=== PATIENT | male | born 1960 | race Caucasian/White ===

== ENCOUNTER 2016-11-01 21:46 | Inpatient (IN) | payer OTHER ==
[~2016-11-01] VITALS: Ht 165.1 cm; Wt 161.8 kg
[~2016-11-01 21:46] MED LIST: ACET5TAB2 PO; ADVA250A INH; ALBU6.7H INH; ALLO100T PO; ASPI325T PO; CARV12.52 PO; CLOP75TA PO; CONTOUR1 TOP; DICL1CAP4 PO; FLUT1SPR20; FURO20TA PO; GABA600T PO; HYDR1LOT6 EX; LANO0.2510 PO; LEVEMIR SQ; LISI20TA PO; NOVOLOGP2 SQ; OMEP20TA PO; SENN8.6T81 PO; VENTAER INH; ZOCO40TA PO; insulin syringes SQ
[2016-11-01 21:52] VITALS: BP 125/88; PULSE 101; RESP 24; TEMP 98.1; O2SAT 95
[2016-11-01] MEDS ORDERED: AMIODARONE HCL 150 MG/3 ML VIAL ONE (21:52)
[2016-11-01] MEDS ORDERED: NITROGLYCERIN 2% OINT 1 GM PACKET TOPICAL ONE (22:00)
[2016-11-01] MEDS ORDERED: ASPIRIN 81 MG CHEW TAB CHEW ONE (22:00)
--- NOTE | 2016-11-01 22:05 | PD ---
HPI Chief Complaint: Cardiac Complaint Time Seen by Provider: 21:52 Travel History International Travel<30 days: No Contact w/Intl Traveler<30days: No Traveled to known affect area: No History of Present Illness HPI The patient is a 56 year old male who presents to the [facility] emergency department with a history of sitting on the couch watching television having sudden fire of his AICD. The patient reports that it fired 4 times. The patient called ambulance services and upon their arrival he was placed on their monitor. The patient was noted to have runs of V. tach and had his AICD fire again at 2132. The patient denies having any chest pain, chest pressure, or shortness of breath. He reports that he does have a history of cardiac disease with a prior history of five-vessel bypass over 10 years ago, pacemaker and defibrillator placement, and prior history of cardiac catheterization with stent placement. He reports that he has not seen a turner and former automatic in years as he does not have insurance. He reports that he has not had his pacemaker interrogated in years. He reports that the last time that his defibrillator fired was 13 years ago when he was using crack cocaine. 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 He reports that he quit smoking 5 years ago. The patient denies any recent fevers, cough, congestion, neck pain, chest pain, shortness of breath, abdominal pain, vomiting, diarrhea, urinary symptoms, or neurologic symptoms. [facility] Past Medical History Narrative Medical The patient's past medical history is significant for obesity, coronary artery disease, hypertension, hyperlipidemia, diabetes mellitus, history of COPD, history of cerebrovascular accident, history of anxiety and depression. Hx Anticoagulant Therapy: Yes (PLAVIX) Arthritis: Yes Asthma: Yes Autoimmune Disease: No Blood Disorders: No Anxiety: Yes Depression: Yes Heart Rhythm Problems: Yes Cancer: No Cardiac Catheterization: Yes Cardiovascular Problems: Yes (DEFIB/OPEN HEART SX/ MO) High Cholesterol: Yes Chemotherapy: No Chest Pain: Yes Congestive Heart Failure: No COPD: Yes Cerebrovascular Accident: Yes Diabetes: Yes (TYPE2) Patient Takes Glucophage: No Diminished Hearing: No Endocrine: Yes Gastrointestinal Disorders: Yes GERD: Yes Glaucoma: No Genitourinary: No Headaches: No Hepatitis: No Hiatal Hernia: No Hypertension: Yes Immune Disorder: No Implanted Vascular Access Dvce: Yes Kidney Stones: No Musculoskeletal: Yes Neurologic: No Psychiatric: Yes (BIPOLAR) Reproductive: No Respiratory: Yes (COPD) Integumentary: Yes (HX OF MRSA/STAPH) Migraines: No Myocardial Infarction: Yes Radiation Therapy: No Renal Failure: No Seizures: No Sickle Cell Disease: No Sleep Apnea: Yes Thyroid Disease: No Ulcer: No Tetanus Vaccination: < 5 Years Influenza Vaccination: Yes PNEUMOCCOCAL Vaccine (Year): 2 Past Surgical History Narrative Surgical The patient's past surgical history is significant for a pacemaker defibrillator placement, coronary artery bypass grafting of 5 vessels, right ankle surgery, 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 Abdominal Surgery: No AICD: Yes Appendectomy: No Arteriovenous Shunt: No Body Medical Devices: PACEMAKER/defib Cardiac Surgery: Yes (CORONY STENT10/02, AICD) Cholecystectomy: No Coronary Artery Bypass Graft: Yes (X5) Coronary Stent: Yes (10/02) Ear Surgery: No Endocrine Surgery: No Eye Surgery: Yes (RIGHT EYES PROSTHESIS) Genitourinary Surgery: No Gynecologic Surgery: No Insulin Pump: No Joint Replacement: Yes (RIGHT ANKLE ) Oral Surgery: No Pacemaker: Yes Thoracic Surgery: No Other Surgery: Yes (AICD) Family History Family Myocardial Infarction: Yes Social History Alcohol Use: No Tobacco Use: No Substance Use: No (quit 2003 hx cocaine) Allergies-Medications (Allergen,Severity, Reaction): Coded Allergies: Morphine (Verified Allergy, Severe, 09/06/16) GI MRI PRECAUTION (Verified Adverse Reaction, Severe, PACEMAKER (JLT), BULLET FRAGMENTS IN SINUS CAVITY, 09/06/16) Reported Meds & Prescriptions Reported Meds & Active Scripts Active Furosemide 20 Mg Tab 20 Mg PO DAILY Lisinopril-Hctz 20-12.5 Mg Tab 1 Tab PO DAILY Zocor (Simvastatin) 40 Mg Tab 40 Mg PO HS Omeprazole 20 Mg Tab 20 Mg PO BID Gabapentin 600 Mg Tab 600 Mg PO TID Proventil Hfa 6.7 GM Inh (Albuterol Sulfate) 90 Mcg/Act Aer 2 Puff INH Q4-6H PRN Ventolin Hfa 18 GM Inh (Albuterol Sulfate) 90 Mcg/Act Aer 2 Puff INH Q4-6H PRN Advair Diskus Inh (Fluticasone-Salmeterol Inh) 250-50 Mcg/Blist Aer 1 Puff INH BID Rinse mouth after use. Lanoxin (Digoxin) 0.25 Mg Tab 0.25 Mg PO DAILY Clopidogrel (Clopidogrel Bisulfate) 75 Mg Tab 75 Mg PO DAILY Reported Anti-Itch Intensive Heali (Hydrocortisone (Topical)) 1 % Lot 1 % EX Sennosides 8.6 Mg Tab 8.6 Mg PO HS 1-2 tabs as needed once a day Novolog Inj (Insulin Aspart) 1,000 Unit/10 Ml Vial 60 Units SQ QID Levemir Inj (Insulin Detemir) 1,000 unit/ 10 ML Vial 100 Units SQ BID Do not mix with any other Insulin. Aspirin 325 Mg Tab 325 Mg PO DAILY Arthritis Pain ER 8 HR (Acetaminophen) 650 Mg Tab 650 Mg PO DAILY PRN 2 tabs as needed once a day Eq Allergy Relief (Fluticasone Propionate (Nasal)) 50 Mcg/Act Spr 1 Bell BID Zorvolex (Diclofenac) 35 Mg Cap 75 Mg PO BID Carvedilol 12.5 Mg Tab 12.5 Mg PO BID Allopurinol 100 Mg Tab 100 Mg PO DAILY Review of Systems Except as stated in HPI: all other systems reviewed are Neg General / Constitutional: No: Fever Eyes: No: Visual changes HENT: No: Headaches Cardiovascular: Positive: Edema (chronic edema and that waxes and wanes in severity, no worse recently), No: Chest Pain or Discomfort, Dyspnea on exertion Respiratory: No: Shortness of Breath Gastrointestinal: No: Nausea, Vomiting, Diarrhea, Abdominal Pain Genitourinary: No: Dysuria Musculoskeletal: No: Pain Skin: No Rash Neurologic: No: Weakness, Focal Abnormalities, Change in Mentation, Slurred Speech, Sensory Disturbance Psychiatric: No: Depression Endocrine: No: Polydipsia Hematologic/Lymphatic: No: Easy Bruising Physical Exam Narrative General: The patient is a well-developed well-nourished male in no acute distress. Head and Neck exam: Head is normocephalic atraumatic. Eyes: The patient has enucleation of the right eye with the prosthetic in place. The patient's left pupil is reactive to light. Nose: Midline septum with pink mucous membranes Mouth: Dentition unremarkable. Moist mucus membranes. Posterior oropharynx is not erythematous. No tonsillar hypertrophy. Uvula midline. Airway patent. Neck: No palpable lymphadenopathy. No nuchal rigidity. No thyromegaly. Cardiovascular: Regular rate and rhythm without murmurs, gallops, or rubs. No pulse deficit to the extremities and simultaneous auscultation and palpation of his radial artery. Runs of V. tach were visualized on the monitor. Lungs: Clear to auscultation bilaterally. No wheezes, rhonchi, or rales. Abdomen: Soft, without tenderness to palpation in all 4 quadrants of the abdomen. No guarding, rebound, or rigidity. Normal bowel sounds are audible. Extremities: No clubbing or cyanosis. The patient has 1+ pitting edema bilateral lower extremities. 2+ pulses in all 4 extremities. No calf tenderness on palpation. Back: No spinous process tenderness to palpation. No costovertebral angle tenderness to palpation. Neurologic Exam: Grossly nonfocal. Awake and alert. The patient is oriented 4. Skin Exam: No rash noted. Intact skin that is warm and dry. Data Data Last Documented VS Vital Signs Date Time Temp Pulse Resp B/P Pulse Ox O2 Delivery O2 Flow Rate FiO2 11/01/16 23:42 86 16 96/56 94 Nasal Cannula 4 11/01/16 21:52 98.1 Orders Amiodarone Inj (Cordarone Inj) (11/01/16 21:52) Electrocardiogram (11/01/16 21:52) Complete Blood Count With Diff (11/01/16 21:52) Comprehensive Metabolic Panel (11/01/16 21:52) Creatine Kinase (Cpk) (11/01/16 21:52) Ckmb (Isoenzyme) Profile (11/01/16 21:52) Troponin I (11/01/16 21:52) B-Type Natriuretic Peptide (11/01/16 21:52) Prothrombin Time / Inr (Pt) (11/01/16 21:52) Act Partial Throm Time (Ptt) (11/01/16 21:52) Urinalysis - C+S If Indicated (11/01/16 21:52) Magnesium (Mg) (11/01/16 21:52) Thyroid Stimulating Hormone (11/01/16 21:52) Chest, Single Ap (11/01/16 21:52) Iv Access Insert/Monitor (11/01/16 21:52) Ecg Monitoring (11/01/16 21:52) Oxygen Administration (11/01/16 21:52) Oximetry (11/01/16 21:52) Aspirin Chew (Aspirin Chew) (11/01/16 22:00) Nitroglycerin 2% Oint (Nitroglycerin 2% (11/01/16 22:00) Amiodarone Inj (Cordarone Inj) (11/01/16 22:15) Amiodarone Inj (Cordarone Inj) (11/01/16 22:15) Lorazepam Inj (Ativan Inj) (11/01/16 22:30) Digoxin (11/01/16 21:50) Lidocaine/D5w Inj (Lidocaine/D5w Inj) (11/01/16 22:45) Lidocaine 2% Inj (Xylocaine 2% Inj) (11/01/16 22:45) Amiodarone Inj (Cordarone Inj) (11/01/16 23:00) CKMB (11/01/16 21:50) CKMB% (11/01/16 21:50) Magnesium Sulfate 1 Gm Premix (Magnesium (11/01/16 23:30) Admit Order (Ed Use Only) (11/01/16 23:40) Labs Laboratory Tests Test 11/01/16 11/01/16 11/01/16 21:50 21:52 22:50 Prothrombin Time 11.1 SEC Prothromb Time International 1.0 RATIO Ratio Activated Partial 27.5 SEC Thromboplast Time Sodium Level 138 MEQ/L Potassium Level 4.0 MEQ/L Chloride Level 99 MEQ/L Carbon Dioxide Level 33.9 MEQ/L Anion Gap 5 MEQ/L Blood Urea Nitrogen 24 MG/DL Creatinine 1.68 MG/DL Estimat Glomerular Filtration 43 ML/MIN Rate Random Glucose 226 MG/DL Calcium Level 8.2 MG/DL Magnesium Level 1.7 MG/DL Total Bilirubin 0.5 MG/DL Aspartate Amino Transf 29 U/L (AST/SGOT) Alanine Aminotransferase 24 U/L (ALT/SGPT) Alkaline Phosphatase 82 U/L Total Creatine Kinase 168 U/L Creatine Kinase MB 2.1 NG/ML Troponin I 0.07 NG/ML B-Type Natriuretic Peptide 13 PG/ML Total Protein 8.0 GM/DL Albumin 3.2 GM/DL Thyroid Stimulating Hormone 2.220 uIU/ML 3rd Gen Digoxin Level 1.3 NG/ML White Blood Count 12.5 TH/MM3 Red Blood Count 4.96 MIL/MM3 Hemoglobin 12.7 GM/DL Hematocrit 41.1 % Mean Corpuscular Volume 82.8 FL Mean Corpuscular Hemoglobin 25.6 PG Mean Corpuscular Hemoglobin 30.9 % Concent Red Cell Distribution Width 16.2 % Platelet Count 200 TH/MM3 Mean Platelet Volume 8.6 FL Neutrophils (%) (Auto) 73.0 % Lymphocytes (%) (Auto) 20.4 % Monocytes (%) (Auto) 4.1 % Eosinophils (%) (Auto) 1.9 % Basophils (%) (Auto) 0.6 % Neutrophils # (Auto) 9.1 TH/MM3 Lymphocytes # (Auto) 2.5 TH/MM3 Monocytes # (Auto) 0.5 TH/MM3 Eosinophils # (Auto) 0.2 TH/MM3 Basophils # (Auto) 0.1 TH/MM3 CBC Comment DIFF FINAL Differential Comment Urine Color YELLOW Urine Turbidity CLEAR Urine pH 5.5 Urine Specific [place] 1.012 Urine Protein NEG mg/dL Urine Glucose (UA) NEG mg/dL Urine Ketones NEG mg/dL Urine Occult Blood NEG Urine Nitrite NEG Urine Bilirubin NEG Urine Urobilinogen LESS THAN 2.0 MG/DL Urine Leukocyte Esterase NEG Urine RBC 1 /hpf Urine WBC 1 /hpf Microscopic Urinalysis Comment CULT NOT INDICATED MDM Medical Decision Making Medical Screen Exam Complete: Yes Emergency Medical Condition: Yes Medical Record Reviewed: Yes Interpretation(s) Last Impressions Chest X-Ray 11/01/162151 Signed Impressions: Service Date/Time: Tuesday, November 01, 2016 20:11 - CONCLUSION: Cardiomegaly. Minimal basilar atelectasis. Pacer leads unchanged. Silvino Duke MD Differential Diagnosis Electrolyte abnormality triggering a cardiac arrhythmia, versus ischemia triggering a cardiac arrhythmia, versus cardiomyopathy Narrative Course During the course of the patients emergency department visit, the patients history, examination, and differential diagnosis were reviewed with the patient. The patient had IV access obtained and blood work sent for analysis. The patient was placed on a coupon manifest clerk with oximetry and blood pressure monitoring. While I was in the room, the patient had episodes of V. tach with a pulse noted. Preparations were made for starting an IV bolus of amiodarone. The patient has had pacer pads applied to his chest. Prior to the amiodarone drip being started the patient's defibrillator again fired in the emergency department. An EKG done on arrival shows a sinus tachycardia rate of 106, nonspecific ST abnormalities. T waves are downsloping in lead 1, 2. QRS duration is 108 ms, QTC is 364 ms. The patient was provided amiodarone 150 mg IV over 10 minutes followed by a drip. The patient reports that he did take an adult aspirin earlier today. The patient was given nitroglycerin 1 inch the chest wall. The patient continued to have persistent runs of V. tach and his AICD again fired after a run of 20 beats of V. tach. The patient was given amiodarone another 150 mg IV bolus over 10 minutes. A call was placed out to the turner and former automatic ground nuclear weapons assembly officer. I spoke to Dr. Kruse. He recommended that the patient be given lidocaine bolus and then a lidocaine drip and continued on the amiodarone drip that was previously started. Shortly after giving a lidocaine bolus the patient's episodic V. tach resolved. I spoke to Dr. Kruse again when he called to check on the patient at approximately 11:15 PM. As the patient's magnesium level was 1.70 recommended magnesium 2 g be administered over 2 hours. Patients laboratory studies were reviewed and remarkable for a white count of 12.5, hemoglobin 12.7, platelets 200 with 73 neutrophils, CMP is remarkable for CO2 of 33.9, BUN 24, creatinine 1.68, glucose 226, CPK 168 with a CK-MB of 2.1, troponin I 0.07, BNP 13, TSH 2.22, PT PTT unremarkable, digoxin level I.3, Urinalysis is unremarkable. Radiology studies were reviewed and remarkable for a chest x-ray did reveal cardiomegaly, minimal basilar atelectasis, pacer leads that are unchanged compared to previously. The patients results were discussed with the patient, including the plan of care. I explained that further testing and/ or monitoring is indicated based on the patients history, examination, and/ or laboratory findings. Therefore, I recommended admission for additional evaluation. The patient expressed understanding and was agreeable with this plan. The patient was admitted to the hospital in guarded condition and sent to a bed under the care of the top lift cutter. A consultation was also placed to Dr. Kruse, the turner and former automatic ground nuclear weapons assembly officer. The patients results were discussed with the patient, including the plan of care. I explained that further testing and/ or monitoring is indicated based on the patients history, examination, and/ or laboratory findings. Therefore, I recommended admission for additional evaluation. The patient expressed understanding and was agreeable with this plan. The patient was admitted to the hospital in guarded condition and sent to a bed under the care of the top lift cutter. Critical Care Narrative Aggregate critical care time was 62 minutes. Time to perform other separately billable procedures was not included in the critical care time. My time did not include minutes spent treating any other patients simultaneously or on activities that did not directly contribute to the patient's treatment. The services I provided to this patient were to treat and/or prevent clinically significant deterioration that could result in: cardiovascular collapse, versus cardiopulmonary arrest, versus acute MO I provided critical care services requiring my management, as noted below: Chart data review, documentation time, medication orders and management, vital sign assessments/reviewing monitor data, ordering and reviewing lab tests, ordering and interpreting/reviewing x-rays and diagnostic studies, care of the patient and discussion of the patient with the admitting physicians. Physician Communication Physician Communication At 22:[address] Kruse regarding this patient's case. He recommended that the patient be given lidocaine bolus and then started on a drip. He recommended that the patient be continued on amiodarone by drip at this point. He will see the patient in consultation. A call was placed out to Dr. Pepper at approximately 11:30 PM. He did call back and communicated with my business unit leader that he would have to call back after 12:30 AM discussed the patient as he is currently with an unstable patient that is coding. I later was able to speak to Dr. Pepper. He did agree to admit the patient for further evaluation and treatment at this time. Diagnosis Primary Impression: Ventricular tachycardia Additional Impression: AICD discharge Admitting Information Admitting Physician Requests: Jyoti Lockhart MD Nov 01, 2016 22:05
[2016-11-01 22:10] VITALS: RESP 18
[2016-11-01] MEDS ORDERED: AMIODARONE 150 MG/D5W 97 ML BOLUS 10 MINUTES IV ONE ×4 (22:15→23:00)
[2016-11-01] MEDS: AMIODARONE 450 MG/D5W (EXCEL) 241 ML IV SCH ×2 (22:23)
[2016-11-01 22:29] LABS: AUTOMATED NEUTROPHIL # 9.1 TH/MM3 (1.8-7.7); BASOPHIL # 0.1 TH/MM3 (0-0.2); BASOPHIL % 0.6 % (0.0-2.0); EOSINOPHIL # 0.2 TH/MM3 (0-0.4); EOSINOPHIL % 1.9 % (0.0-4.0); HEMATOCRIT 41.1 % (39.0-51.0); HEMO FLAGS DIFF FINAL; LYMPH % 20.4 % (9.0-44.0); LYMPHOCYTE # 2.5 TH/MM3 (1.0-4.8); MEAN CELL VOLUME 82.8 FL (80.0-100.0); MEAN CORPUSCULAR HEMOGLOBIN 25.6 PG (27.0-34.0); MEAN CORPUSCULAR HGB CONC 30.9 % (32.0-36.0); MONO % 4.1 % (0.0-8.0); PLATELET COUNT 200 TH/MM3 (150-450); RED BLOOD COUNT 4.96 MIL/MM3 (4.50-5.90); RED CELL DISTRIBUTION WIDTH 16.2 % (11.6-17.2); WHITE BLOOD COUNT 12.5 TH/MM3 (4.0-11.0)
[2016-11-01] MEDS ORDERED: LORazepam 2 MG/ML VIAL IM ONE (22:30)
--- NOTE | 2016-11-01 22:39 | RADRPT ---
EXAM DATE/TIME: 11/01/2016 20:11 [facility] COMPARISON: No previous studies available for comparison. INDICATIONS : Palpitations. MEDICAL HISTORY : Chronic obstructive pulmonary disease. SURGICAL HISTORY : CABG. Pacemaker. ENCOUNTER: Initial ACUITY: 1 day PAIN SCORE: 0/10 LOCATION: Bilateral chest FINDINGS: Patient is postoperative median sternotomy. Cardiomegaly. Pacer lead present. Minimal basilar atelect asis. No effusion or pneumothorax. CONCLUSION: Cardiomegaly. Minimal basilar atelectasis. Pacer leads unchanged. Silvino Duke MD on November 01, 2016 at 22:36 Board Certified Radiologist. This report was verified electronically.
[2016-11-01] MEDS ORDERED: LIDOCAINE HCL 2% 100 MG/5 ML SYRINGE IV PUSH ONE (22:45)
[2016-11-01] MEDS ORDERED: LIDOCAINE/D5W INJ 500 ML IV ONE (22:45)
[2016-11-01 22:53] LABS: APTT (PATIENT) 27.5 SEC (24.3-30.1); PROTHROMBIN TIME - PATIENT 11.1 SEC (9.8-11.6)
[2016-11-01 23:02] LABS: BLOOD, URINE NEG (NEG); COMMENT (UR) CULT NOT INDICATED; CULTURE IF INDICATED CULT NOT INDICATED; GLUCOSE,URINE NEG (NEG); KETONE, URINE NEG (NEG); NITRITE,URINE NEG (NEG); PH, URINE 5.5 (5.0-8.5); URINE COLOR YELLOW (YELLW/STRAW)
[2016-11-01 23:05] VITALS: BP 105/59; PULSE 89; RESP 16; O2SAT 96
[2016-11-01 23:14] LABS: ALKALINE PHOSPHATASE 82 U/L (45-117); ALT (GPT) 24 U/L (12-78); ANION GAP 5 MEQ/L (5-15); AST (GOT) 29 U/L (15-37); BICARBONATE 33.9 MEQ/L (21.0-32.0); BLOOD UREA NITROGEN 24 MG/DL (7-18); CHLORIDE 99 MEQ/L (98-107); CREATINE KINASE 168 U/L (39-308); DIGOXIN 1.3 NG/ML (0.8-2.0); GLOMERULAR FILTRATION RATE 43 ML/MIN (>89); MAGNESIUM 1.7 MG/DL (1.5-2.5); SODIUM (NA) 138 MEQ/L (136-145); TOTAL BILIRUBIN ADULT 0.5 MG/DL (0.2-1.0)
[2016-11-01 23:26] LABS: CKMB 2.1 NG/ML (0.5-3.6)
[2016-11-01 23:42] VITALS: BP 96/56; PULSE 86; RESP 16; O2SAT 94
[2016-11-01] MEDS: MAGNESIUM SULFATE 1 GM PREMIX 100 ML IV SCH (23:54)
[2016-11-02] VITALS (18 sets, daily range): BP systolic 99–137; BP diastolic 52–63; PULSE 61–75; RESP 14–24; TEMP 97.6–99.1; O2SAT 93–96
[2016-11-02] MEDS: MAGNESIUM SULFATE 1 GM PREMIX 100 ML IV SCH (01:10)
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
[2016-11-02] MEDS ORDERED: LIDOCAINE/D5W INJ 500 ML IV SCH (02:19)
[2016-11-02] MEDS ORDERED: ONDANSETRON HCL 4 MG/2 ML VIAL IV PRN (02:45)
[2016-11-02] MEDS ORDERED: MISCELLANEOUS NURSING INFORMATION XX SCH (02:45)
[2016-11-02] MEDS ORDERED: CHLORHEXIDINE GLUCONATE 2 % 1 PACK (2 CLOTHS) TOP PRN (02:45)
[2016-11-02] MEDS ORDERED: SODIUM CHLORIDE 0.9% FLUSH 5 ML FLUSH IV FLUSH PRN (02:45)
[2016-11-02] MEDS ORDERED: RESP: ALBUTEROL 2.5 MG/IPRATROPIUM 0.5 MG NEB (PRN) INH (02:45)
[2016-11-02] MEDS ORDERED: DEXTROSE 50% IN WATER 50 ML VIAL(D50) IV PUSH PRN (02:45)
[2016-11-02] MEDS ORDERED: GLUCAGON 1 MG/ML VIAL OTHER PRN (02:45)
[2016-11-02] MEDS ORDERED: ARTHRITIS PAIN PO PRN (03:00)
[2016-11-02] MEDS: CHLORHEXIDINE GLUCONATE 2 % 1 PACK (2 CLOTHS) TOP SCH (04:00)
[2016-11-02] MEDS: AMIODARONE 450 MG/D5W (EXCEL) 241 ML IV SCH ×2 (04:33)
[2016-11-02] MEDS: INSULIN NovoLIN REGULAR SUPPLEMENTAL SCALE SQ SCH ×4 (06:57→21:00)
[2016-11-02] MEDS ORDERED: LISINOPRIL 20 MG TAB PO SCH (09:00)
[2016-11-02] MEDS ORDERED: CARVEDILOL 12.5 MG TAB PO SCH (09:00)
[2016-11-02] MEDS ORDERED: DIGOXIN 0.25 MG TAB PO SCH (09:00)
[2016-11-02] MEDS ORDERED: PNEUMOCOCCAL POLYVALENT INJ 25 MCG/0.5 ML SYR IM ONE (09:00)
[2016-11-02] MEDS: SODIUM CHLORIDE 0.9% FLUSH 5 ML FLUSH IV FLUSH SCH (09:00)
[2016-11-02] MEDS ORDERED: HYDROCHLOROTHIAZIDE 12.5 MG CAP PO SCH (09:00)
[2016-11-02] MEDS: ALLOPURINOL 100 MG TAB PO SCH (09:00)
[2016-11-02] MEDS: FLUTICASONE PROPIONATE 50 MCG/ACT 16 GM NASAL SPRAY NASAL SCH ×2 (09:00→21:00)
[2016-11-02] MEDS: BUDESONIDE-FORMOTEROL 160/4.5 MCG INHALER INH SCH ×2 (09:21→21:00)
[2016-11-02] MEDS: DOCUSATE SODIUM 100 MG CAP PO SCH ×2 (09:23→21:00)
[2016-11-02] MEDS: CLOPIDOGREL 75 MG TAB PO SCH (09:24)
[2016-11-02] MEDS: ASPIRIN 325 MG TAB PO SCH (09:24)
[2016-11-02] MEDS: PANTOPRAZOLE SOD 20 MG DELAYED RELEASE TAB PO SCH ×2 (09:25→22:29)
[2016-11-02] MEDS: GABAPENTIN 300 MG CAP PO SCH ×3 (09:25→17:51)
[2016-11-02] MEDS: INSULIN DETEMIR 100 UNITS/ML VIAL SQ SCH ×2 (09:26→21:00)
[2016-11-02] MEDS: FUROSEMIDE 20 MG TAB PO SCH (09:27)
[2016-11-02 11:44] LABS: HEMATOCRIT 38.7 % (39.0-51.0); MEAN CELL VOLUME 83.2 FL (80.0-100.0); MEAN CORPUSCULAR HEMOGLOBIN 26.1 PG (27.0-34.0); MEAN CORPUSCULAR HGB CONC 31.4 % (32.0-36.0); PLATELET COUNT 199 TH/MM3 (150-450); RED BLOOD COUNT 4.65 MIL/MM3 (4.50-5.90); RED CELL DISTRIBUTION WIDTH 16.4 % (11.6-17.2); REVIEW FLAG FINAL; WHITE BLOOD COUNT 9.9 TH/MM3 (4.0-11.0)
[2016-11-02 12:23] LABS: BICARBONATE 32.1 MEQ/L (21.0-32.0); MAGNESIUM 2.3 MG/DL (1.5-2.5); POTASSIUM 4.6 MEQ/L (3.5-5.1)
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
[2016-11-02] MEDS: ACETAMINOPHEN/HYDROcodone 325 MG/5 MG TAB PO PRN ×2 (14:57→22:32)
[2016-11-02] MEDS: SENNOSIDES 8.6 MG TAB PO SCH (21:00)
--- NOTE | 2016-11-02 22:06 | EKG ---
Date Performed: 11/01/2016 Time Performed: 21:47:51 PTAGE: 56 years EKG: SINUS TACHYCARDIA ST DEVIATION AND MODERATE T-WAVE ABNORMALITY, CONSIDER LATERAL ISCHEMIA A BNORMAL ECG INTERPRETATION BASED ON A DEFAULT AGE OF 40 YEARS PREVIOUS TRACING : 09/30/2015 20.58 DOCTOR: Dimitri Kruse Interpretating Date/Time 11/02/2016 22:05:12
[2016-11-02] MEDS: CARVEDILOL 12.5 MG TAB PO SCH (22:28)
[2016-11-02] MEDS: PRAVASTATIN SOD 40 MG TAB PO SCH (22:29)
[2016-11-03] VITALS (28 sets, daily range): BP systolic 107–127; BP diastolic 56–60; PULSE 62–78; RESP 18–24; TEMP 97.4–99.1; O2SAT 93–96
[2016-11-03] MEDS: CHLORHEXIDINE GLUCONATE 2 % 1 PACK (2 CLOTHS) TOP SCH (04:00)
[2016-11-03 06:13] LABS: AUTOMATED NEUTROPHIL # 9.7 TH/MM3 (1.8-7.7); BASOPHIL # 0.1 TH/MM3 (0-0.2); BASOPHIL % 0.5 % (0.0-2.0); EOSINOPHIL # 0.3 TH/MM3 (0-0.4); EOSINOPHIL % 2.2 % (0.0-4.0); HEMATOCRIT 41.6 % (39.0-51.0); HEMO FLAGS DIFF FINAL; LYMPH % 11.8 % (9.0-44.0); LYMPHOCYTE # 1.4 TH/MM3 (1.0-4.8); MEAN CELL VOLUME 84.1 FL (80.0-100.0); MEAN CORPUSCULAR HEMOGLOBIN 25.6 PG (27.0-34.0); MEAN CORPUSCULAR HGB CONC 30.4 % (32.0-36.0); MONO % 5.4 % (0.0-8.0); NEUT % 80.1 % (16.0-70.0); PLATELET COUNT 185 TH/MM3 (150-450); RED BLOOD COUNT 4.95 MIL/MM3 (4.50-5.90); RED CELL DISTRIBUTION WIDTH 16.5 % (11.6-17.2); WHITE BLOOD COUNT 12.1 TH/MM3 (4.0-11.0)
[2016-11-03 06:30] LABS: APTT (PATIENT) 26.9 SEC (24.3-30.1); PROTHROMBIN TIME - PATIENT 11.2 SEC (9.8-11.6)
[2016-11-03 06:46] LABS: ALKALINE PHOSPHATASE 74 U/L (45-117); ALT (GPT) 20 U/L (12-78); ANION GAP 6 MEQ/L (5-15); AST (GOT) 15 U/L (15-37); BICARBONATE 32.4 MEQ/L (21.0-32.0); BLOOD UREA NITROGEN 33 MG/DL (7-18); CHLORIDE 97 MEQ/L (98-107); GLOMERULAR FILTRATION RATE 38 ML/MIN (>89); MAGNESIUM 2.4 MG/DL (1.5-2.5); SODIUM (NA) 135 MEQ/L (136-145); TOTAL BILIRUBIN ADULT 0.5 MG/DL (0.2-1.0)
--- NOTE | 2016-11-03 08:30 | HHI.PR ---
Subjective Remarks Follow up tachycardia, diabetes. The patient denies chest pain, dyspnea. States that he is having a gout flare in both feet, left greater than right. He states that his gout flares up any time he spends the night in the hospital. He does not recall what medication he takes for gout flares. Objective Vitals Vital Signs Date Time Temp Pulse Resp B/P Pulse Ox O2 Delivery O2 Flow Rate FiO2 11/03/16 07:45 21 11/03/16 07:35 67 11/03/16 05:00 69 11/03/16 04:02 98.8 64 20 122/57 96 11/03/16 04:00 69 11/03/16 03:00 66 11/03/16 02:00 78 11/03/16 01:00 69 11/03/16 00:00 99.1 71 20 127/57 96 11/03/16 00:00 72 11/02/16 23:00 72 11/02/16 22:00 68 11/02/16 21:00 69 11/02/16 20:00 Nasal Cannula 3.50 11/02/16 20:00 71 11/02/16 19:56 95 Nasal Cannula 4.00 11/02/16 19:56 99.1 70 20 132/58 95 11/02/16 19:00 74 11/02/16 18:02 69 11/02/16 17:28 72 11/02/16 17:00 98.0 69 20 102/57 95 11/02/16 16:00 69 11/02/16 14:00 75 11/02/16 12:00 69 11/02/16 12:00 97.8 69 18 137/62 94 11/02/16 10:00 64 11/02/16 08:52 93 Nasal Cannula 2.00 I/O 11/02/16 11/02/16 11/02/16 11/03/16 11/03/16 11/03/16 07:00 15:00 23:00 07:00 15:00 23:00 Intake Total 734 ml 1547 ml 517 ml Output Total 1450 ml 650 ml 300 ml 375 ml Balance -716 ml 897 ml 217 ml -375 ml Intake Oral 420 ml 1200 ml 480 ml IV Total 314 ml 347 ml 37 ml Output Urine Total 1450 ml 650 ml 300 ml 375 ml # Voids 3 # Bowel Movements 0 0 0 Result Diagram: 11/03/16 0550 11/03/16 0550 Imaging Last Impressions Chest X-Ray 11/01/162151 Signed Impressions: Service Date/Time: Tuesday, November 01, 2016 20:11 - CONCLUSION: Cardiomegaly. Minimal basilar atelectasis. Pacer leads unchanged. Silvino Duke MD Objective Remarks General: Morbidly obese male in no acute distress. Heart: Regular rate and rhythm. No murmur. Lungs: Clear to auscultation bilaterally. No wheezes, rales, or rhonchi. Breathing is nonlabored. Abdomen: Soft, nontender, nondistended. Extremities: No lower extremity edema. SCDs. Both feet are tender to palpation. No apparent erythema. Psych: Alert and oriented. Urinary Catheter: No Vascular Central Line Catheter: No A/P Problem List: (1) Ventricular tachycardia ICD Code: I47.2 Status: Acute (2) Type 2 diabetes mellitus ICD Code: E11.9 Status: Chronic (3) Neuropathy ICD Code: G62.9 Status: Chronic (4) Hyperlipidemia ICD Code: E78.5 Status: Chronic (5) CAD (coronary artery disease) ICD Code: I25.10 Status: Chronic (6) Morbid obesity ICD Code: E66.01 Status: Chronic (7) Sleep apnea ICD Code: G47.30 Status: Chronic (8) AICD discharge ICD Code: Z45.02 Status: Acute (9) Hypertension ICD Code: I10 Status: Chronic (10) Esophageal reflux ICD Code: K21.9 Status: Chronic (11) Depressed ICD Code: F32.9 Status: Acute (12) Noncompliance ICD Code: Z91.19 Status: Acute (13) Post-nasal drip ICD Code: R09.82 Status: Acute Assessment and Plan 1. Wide-complex tachycardia, AICD firing: Appreciate cardiology recommendations. On amiodarone drip. Lidocaine drip discontinued secondary to acute kidney injury. Continue Coreg. 2-D echocardiogram ordered. 2. Elevated troponin, CAD: Trending down. Likely secondary to AICD firing. Not a candidate for coronary angiogram at this time secondary to acute kidney injury. Appreciate cardiology recommendations. Continue statin, beta etienne. NGUYEN inhibitor on hold secondary to acute kidney injury. The patient is status post CABG 5 vessels. 3. Acute renal failure superimposed on chronic kidney disease stage III: NGUYEN inhibitor on hold. Monitor BUN and creatinine. 4. GI prophylaxis: Protonix. 5. Diabetes mellitus type 2: Continue Levemir. Monitor Accu-Cheks and cover with sliding scale insulin. 6. Anemia: Monitor H&H. 7. Morbid obesity: Counseled regarding weight loss. 8. DVT prophylaxis: SCDs, heparin. 9. CODE STATUS: Full code. 10. Gout: Continue allopurinol. Patient states that he is having a flare involving both feet, left greater than right. He does not know what medication he normally takes at home for gout flares. I counseled him that we would need to be cautious with anti-inflammatories and other medications that may affect the kidneys because of his elevated creatinine. Problem Qualifiers (1) Type 2 diabetes mellitus: Qualified Code: E11.8 - Type 2 diabetes mellitus with complication, without long-term current use of insulin (2) Hyperlipidemia: Qualified Code: E78.5 - Hyperlipidemia, unspecified hyperlipidemia type (3) CAD (coronary artery disease): Qualified Code: I25.10 - Coronary artery disease involving [place] heart without angina pectoris, unspecified vessel or lesion type (4) Morbid obesity: Qualified Code: E66.01 - Morbid obesity, unspecified obesity type (5) Sleep apnea: Qualified Code: G47.30 - Sleep apnea, unspecified type (6) Hypertension: Qualified Code: I15.9 - Secondary hypertension (7) Esophageal reflux: Qualified Code: K21.9 - Gastroesophageal reflux disease, esophagitis presence not specified (8) Depressed: Qualified Code: F32.9 - Depression, unspecified depression type Pedro Luis Saleem MD Nov 03, 2016 08:30
[2016-11-03] MEDS: INSULIN DETEMIR 100 UNITS/ML VIAL SQ SCH ×2 (09:00→21:00)
[2016-11-03] MEDS: FLUTICASONE PROPIONATE 50 MCG/ACT 16 GM NASAL SPRAY NASAL SCH ×2 (10:02→21:15)
[2016-11-03] MEDS: BUDESONIDE-FORMOTEROL 160/4.5 MCG INHALER INH SCH ×2 (10:02→21:15)
[2016-11-03] MEDS: CLOPIDOGREL 75 MG TAB PO SCH (10:04)
[2016-11-03] MEDS: CARVEDILOL 12.5 MG TAB PO SCH ×2 (10:04→21:16)
[2016-11-03] MEDS: GABAPENTIN 300 MG CAP PO SCH ×2 (10:04→21:15)
[2016-11-03] MEDS: PANTOPRAZOLE SOD 20 MG DELAYED RELEASE TAB PO SCH ×2 (10:04→21:16)
[2016-11-03] MEDS: ALLOPURINOL 100 MG TAB PO SCH (10:04)
[2016-11-03] MEDS: FUROSEMIDE 20 MG TAB PO SCH (10:05)
[2016-11-03] MEDS: DOCUSATE SODIUM 100 MG CAP PO SCH ×2 (10:05→21:15)
[2016-11-03] MEDS: ASPIRIN 325 MG TAB PO SCH (10:06)
[2016-11-03] MEDS: ACETAMINOPHEN/HYDROcodone 325 MG/5 MG TAB PO PRN ×3 (10:06→23:54)
[2016-11-03] MEDS: SODIUM CHLORIDE 0.9% FLUSH 5 ML FLUSH IV FLUSH SCH ×2 (10:07→21:16)
[2016-11-03] MEDS: INSULIN NovoLIN REGULAR SUPPLEMENTAL SCALE SQ SCH ×3 (11:00→21:00)
--- NOTE | 2016-11-03 13:10 | EC ---
Study Study Date:11/03/2016 STUDY CONCLUSIONS SUMMARY - Procedure narrative: Transthoracic echocardiography. Image quality was poor. Scanning was performed from the parasternal, apical, and subcostal acoustic windows. - Left ventricle: The cavity size was normal. Wall thickness was normal. Systolic function was at the lower limits of normal. The estimated ejection fraction was 50%. Wall motion was normal; there were no regional wall motion abnormalities. - Mitral valve: Calcified annulus. - Tricuspid valve: Mild regurgitation. - Pulmonary arteries: PA peak pressure: 37mm Hg (S). If LV function is below 40, please consider prescribing an ACEI or ARB or document rationale for non-use. PROCEDURE DATA STUDY STATUS: Elective. Procedure: Transthoracic echocardiography. Image quality was poor. Scanning was performed from the parasternal, apical, and subcostal acoustic windows. Study completion: The patient tolerated the procedure well. Transthoracic echocardiography. M-mode, complete 2D, complete spectral Doppler, and color Doppler. Patient status: Inpatient. CARDIAC ANATOMY LEFT VENTRICLE: Not well visualized. The cavity size was normal. Wall thickness was normal. Systolic function was at the lower limits of normal. The estimated ejection fraction was 50%. Wall motion was normal; there were no regional wall motion abnormalities. AORTIC VALVE: Trileaflet; normal thickness leaflets. Doppler: Transvalvular velocity was within the normal range. There was no stenosis. No regurgitation. AORTA: Aortic root: The aortic root was normal in size. MITRAL VALVE: Calcified annulus. Doppler: Transvalvular velocity was within the normal range. There was no evidence for stenosis. No regurgitation. Peak gradient: 6mm Hg (D). LEFT ATRIUM: The atrium was normal in size. RIGHT VENTRICLE: The cavity size was normal. Wall thickness was normal. PULMONIC VALVE: Doppler: Transvalvular velocity was within the normal range. There was no evidence for stenosis. No regurgitation. TRICUSPID VALVE: Structurally normal valve. Doppler: Transvalvular velocity was within the normal range. Mild regurgitation. PULMONARY ARTERY: The main pulmonary artery was normal-sized. Systolic pressure was within the normal range. RIGHT ATRIUM: The atrium was normal in size. PERICARDIUM: There was no pericardial effusion. SYSTEMIC VEINS: Inferior vena cava: The vessel was normal in size. BASIC MEASUREMENTS ADULT Normal Left ventricle LV internal dimension, ED, chordal level, 51.2 mm 43-52 PLAX LV internal dimension, ES, chordal level, *42.8 mm 23-38 PLAX Fractional shortening, chordal level, PLAX *16 % >29 LV posterior wall thickness, ED 7.17 mm IVS/LVPW ratio, ED *1.39 <1.3 Ventricular septum Septal thickness, ED 9.96 mm Left atrium Anterior-posterior dimension 42 mm DOPPLER MEASUREMENTS ADULT Normal Main pulmonary artery Pressure, S *37 mm Hg =30 Mitral valve Peak E-wave velocity 119 cm/s Peak A-wave velocity 64.2 cm/s Peak gradient, D 6 mm Hg Peak E/A ratio 1.9 Tricuspid valve Regurgitant peak velocity 261 cm/s Peak RV-RA gradient, S 27 mm Hg Maximal regurgitant velocity 261 cm/s Systemic veins Estimated CVP 10 mm Hg Right ventricle RV pressure, S *37 mm Hg <30 LEGEND: Mean values are shown as u=mean value. Asterisk (*) villavicencio values outside specified normal range. Amended Cong Hansno [id number]
--- NOTE | 2016-11-03 13:13 | PD.CARD.PN ---
Subjective Subjective Remarks no overnight events no complaints worsening creat Objective Medications Current Medications Medications (Trade) Dose Ordered Sig/Lester Route Start Time Stop Time Status Last Admin (Cordarone Inj/ D5W ([place]) Inj) 250 ml @ 0 mls/hr CONTINUOUS IV 11/01/16 22:15 11/02/16 04:33 (Zyloprim) 100 mg DAILY PO 11/02/16 09:00 11/03/16 10:04 (Aspirin) 325 mg DAILY PO 11/02/16 09:00 11/03/16 10:06 (Plavix) 75 mg DAILY PO 11/02/16 09:00 11/03/16 10:04 (Flonase Dave Spr) 1 spray BID NASAL 11/02/16 09:00 11/03/16 10:02 (Lasix) 20 mg DAILY PO 11/02/16 09:00 11/03/16 10:05 (Protonix) 20 mg BID PO 11/02/16 09:00 11/03/16 10:04 (Senokot) 8.6 mg HS PO 11/02/16 21:00 Patient Own Medication PT OWN MED: ARTHRI... DAILY PRN PO 11/02/16 03:00 (Symbicort 160-4.5 Inh) 2 puff BID INH 11/02/16 09:00 11/03/16 10:02 (Pravachol) 80 mg HS PO 11/02/16 21:00 11/02/16 22:29 (NS Flush) 2 ml UNSCH PRN IV FLUSH 11/02/16 02:45 (NS Flush) 2 ml BID IV FLUSH 11/02/16 09:00 11/03/16 10:07 (Tylenol) 650 mg Q6H PRN PO 11/02/16 02:45 (Zofran Inj) 4 mg Q6H PRN IV 11/02/16 02:45 (Colace) 100 mg BID PO 11/02/16 09:00 11/03/16 10:05 Miscellaneous Information 1 Q361D XX 11/02/16 02:45 (Chlorhexidine 2% Cloth) 3 pack Taper DAILY@04 TOP 11/02/16 04:00 10/29/17 03:59 11/02/16 04:00 (Chlorhexidine 2% Cloth) 3 pack UNSCH PRN TOP 11/02/16 02:45 (D50w (Vial) Inj) 25 ml UNSCH PRN IV PUSH 11/02/16 02:45 (Glucagon Inj) 1 mg UNSCH PRN OTHER 11/02/16 02:45 (Levemir Inj) 25 units Q12HR SQ 11/02/16 09:00 11/03/16 09:00 (Coreg) 25 mg BID PO 11/02/16 21:00 11/03/16 10:04 ([place] 5-325 Mg) 1 tab Q6H PRN PO 11/02/16 14:45 11/03/16 10:06 (Neurontin) 600 mg BID PO 11/03/16 21:00 Vital Signs / I&O Vital Signs Date Time Temp Pulse Resp B/P Pulse Ox O2 Delivery O2 Flow Rate FiO2 11/03/16 08:10 99 Nasal Cannula 3.00 Humidified 11/03/16 08:05 94 Nasal Cannula 4.00 Humidified 11/03/16 08:00 86 Room Air 11/03/16 07:45 21 11/03/16 07:35 67 11/03/16 07:00 97.4 67 21 107/60 94 11/03/16 05:00 69 11/03/16 04:02 98.8 64 20 122/57 96 11/03/16 04:00 69 11/03/16 03:00 66 11/03/16 02:00 78 11/03/16 01:00 69 11/03/16 00:00 99.1 71 20 127/57 96 11/03/16 00:00 72 11/02/16 23:00 72 11/02/16 22:00 68 11/02/16 21:00 69 11/02/16 20:00 Nasal Cannula 3.50 11/02/16 20:00 71 11/02/16 19:56 95 Nasal Cannula 4.00 11/02/16 19:56 99.1 70 20 132/58 95 11/02/16 19:00 74 11/02/16 18:02 69 11/02/16 17:28 72 11/02/16 17:00 98.0 69 20 102/57 95 11/02/16 16:00 69 11/02/16 14:00 75 I/O 11/02/16 11/02/16 11/02/16 11/03/16/9/17 2/9/17 07:00 15:00 23:00 07:00 15:00 23:00 Intake Total 734 ml 1547 ml 517 ml Output Total 1450 ml 650 ml 300 ml 375 ml Balance -716 ml 897 ml 217 ml -375 ml Intake Oral 420 ml 1200 ml 480 ml IV Total 314 ml 347 ml 37 ml Output Urine Total 1450 ml 650 ml 300 ml 375 ml # Voids 3 # Bowel Movements 0 0 0 Physical Exam GENERAL: Well-nourished, well-developed patient.Awake, alert, and oriented x 3. Non-focal. SKIN: Warm and dry. HEAD: Normocephalic. EYES: No scleral icterus. No injection or drainage. NECK: Supple, trachea midline. No JVD or lymphadenopathy. CARDIOVASCULAR: Regular rate and rhythm without murmurs, gallops, or rubs. RESPIRATORY: Breath sounds equal bilaterally. No accessory muscle use. GASTROINTESTINAL: Abdomen obese, soft, non-tender, nondistended. EXTREMITIES: No cyanosis, +edema. Laboratory Laboratory Tests Test 11/03/16 05:50 White Blood Count 12.1 TH/MM3 Red Blood Count 4.95 MIL/MM3 Hemoglobin 12.7 GM/DL Hematocrit 41.6 % Mean Corpuscular Volume 84.1 FL Mean Corpuscular Hemoglobin 25.6 PG Mean Corpuscular Hemoglobin 30.4 % Concent Red Cell Distribution Width 16.5 % Platelet Count 185 TH/MM3 Mean Platelet Volume 8.4 FL Neutrophils (%) (Auto) 80.1 % Lymphocytes (%) (Auto) 11.8 % Monocytes (%) (Auto) 5.4 % Eosinophils (%) (Auto) 2.2 % Basophils (%) (Auto) 0.5 % Neutrophils # (Auto) 9.7 TH/MM3 Lymphocytes # (Auto) 1.4 TH/MM3 Monocytes # (Auto) 0.7 TH/MM3 Eosinophils # (Auto) 0.3 TH/MM3 Basophils # (Auto) 0.1 TH/MM3 CBC Comment DIFF FINAL Differential Comment Prothrombin Time 11.2 SEC Prothromb Time International 1.0 RATIO Ratio Activated Partial 26.9 SEC Thromboplast Time Sodium Level 135 MEQ/L Potassium Level 5.0 MEQ/L Chloride Level 97 MEQ/L Carbon Dioxide Level 32.4 MEQ/L Anion Gap 6 MEQ/L Blood Urea Nitrogen 33 MG/DL Creatinine 1.87 MG/DL Estimat Glomerular Filtration 38 ML/MIN Rate Random Glucose 198 MG/DL Lactic Acid Level 0.9 mmol/L Calcium Level 8.6 MG/DL Phosphorus Level 4.5 MG/DL Magnesium Level 2.4 MG/DL Total Bilirubin 0.5 MG/DL Aspartate Amino Transf 15 U/L (AST/SGOT) Alanine Aminotransferase 20 U/L (ALT/SGPT) Alkaline Phosphatase 74 U/L Total Protein 7.7 GM/DL Albumin 3.0 GM/DL Imaging Last Impressions Chest X-Ray 11/01/162151 Signed Impressions: Service Date/Time: Tuesday, November 01, 2016 20:11 - CONCLUSION: Cardiomegaly. Minimal basilar atelectasis. Pacer leads unchanged. Silvino Duke MD Assessment and Plan Problem List: (1) Ventricular tachycardia Assessment and Plan: Ischemic Cardiomyopathy s/p VT storm successfully treated by AICD. Unfortunately renal function worsening, risks outweighs benefits of LHC. LHC on hold. Troponin trending down. Continue aggressive medical management for CAD. 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 Discontinue Amio drip Start PO Amiodarone Cont aggressive medical management of CAD PT/OT (2) Obesity (3) JOSE R (acute kidney injury) (4) CAD (coronary artery disease) (5) Hyperlipidemia (6) Hypertension Problem Qualifiers (1) CAD (coronary artery disease): Qualified Code: I25.10 - Coronary artery disease involving [place] heart without angina pectoris, unspecified vessel or lesion type (2) Hyperlipidemia: Qualified Code: E78.5 - Hyperlipidemia, unspecified hyperlipidemia type (3) Hypertension: Qualified Code: I15.9 - Secondary hypertension Wil Garay MD Nov 03, 2016 13:13
[2016-11-03] MEDS: AMIODARONE 200 MG TAB PO SCH ×2 (13:30→21:16)
[2016-11-03] MEDS: PRAVASTATIN SOD 40 MG TAB PO SCH (21:15)
[2016-11-03] MEDS: SENNOSIDES 8.6 MG TAB PO SCH (21:16)
[2016-11-03] MEDS: ACETAMINOPHEN 325 MG TAB PO PRN (21:31)
[2016-11-04] VITALS (26 sets, daily range): BP systolic 99–139; BP diastolic 54–68; PULSE 60–82; RESP 15–24; TEMP 98.4–99.5; O2SAT 90–98
[2016-11-04 05:54] LABS: AUTOMATED NEUTROPHIL # 9.7 TH/MM3 (1.8-7.7); BASOPHIL % 0.4 % (0.0-2.0); EOSINOPHIL # 0.1 TH/MM3 (0-0.4); EOSINOPHIL % 1.2 % (0.0-4.0); HEMATOCRIT 37.7 % (39.0-51.0); HEMO FLAGS DIFF FINAL; LYMPHOCYTE # 1.3 TH/MM3 (1.0-4.8); MEAN CELL VOLUME 83.4 FL (80.0-100.0); MEAN CORPUSCULAR HEMOGLOBIN 25.6 PG (27.0-34.0); MEAN CORPUSCULAR HGB CONC 30.7 % (32.0-36.0); MONO % 6.5 % (0.0-8.0); NEUT % 80.9 % (16.0-70.0); PLATELET COUNT 165 TH/MM3 (150-450); RED BLOOD COUNT 4.52 MIL/MM3 (4.50-5.90); RED CELL DISTRIBUTION WIDTH 16.1 % (11.6-17.2)
[2016-11-04] MEDS: ACETAMINOPHEN/HYDROcodone 325 MG/5 MG TAB PO PRN (05:59)
[2016-11-04 06:16] LABS: BICARBONATE 34.7 MEQ/L (21.0-32.0); POTASSIUM 4.8 MEQ/L (3.5-5.1)
[2016-11-04] MEDS: INSULIN NovoLIN REGULAR SUPPLEMENTAL SCALE SQ SCH ×4 (06:42→21:00)
--- NOTE | 2016-11-04 08:43 | HHI.PR ---
Subjective Remarks Follow up diabetes, gout, JOSE R. The patient is reporting pain in both feet. The right foot pain has improved. The left foot pain has worsened. It is currently . Denies chest pain, dyspnea. Objective Vitals Vital Signs Date Time Temp Pulse Resp B/P Pulse Ox O2 Delivery O2 Flow Rate FiO2 11/04/16 08:21 98 21 11/04/16 06:01 63 11/04/16 05:00 63 11/04/16 04:01 61 11/04/16 03:45 98.4 64 24 107/55 93 11/04/16 03:00 66 11/04/16 02:00 62 11/04/16 01:01 64 11/04/16 00:00 69 11/03/16 23:45 98.6 67 24 127/58 93 11/03/16 23:00 66 11/03/16 22:30 20 11/03/16 22:00 66 11/03/16 21:53 94 Nasal Cannula 3.00 11/03/16 21:00 66 11/03/16 20:30 98.1 70 18 122/58 93 11/03/16 20:30 93 Nasal Cannula 3.00 11/03/16 20:00 65 11/03/16 19:00 64 11/03/16 18:00 65 11/03/16 17:00 63 11/03/16 16:00 62 11/03/16 15:00 97.9 62 22 109/56 96 11/03/16 15:00 62 11/03/16 14:52 18 11/03/16 14:00 62 11/03/16 13:00 64 11/03/16 12:00 63 11/03/16 11:00 98.6 63 21 110/56 96 11/03/16 11:00 62 11/03/16 10:00 67 11/03/16 09:00 66 I/O 11/03/16 11/03/16 11/03/16 11/04/16 11/04/16 11/04/16 07:00 15:00 23:00 07:00 15:00 23:00 Intake Total 1079 ml 960 ml Output Total 375 ml 1075 ml 750 ml Balance -375 ml 4 ml 210 ml Intake Oral 960 ml 960 ml IV Total 119 ml Output Urine Total 375 ml 1075 ml 750 ml # Voids 4 # Bowel Movements 1 0 Result Diagram: 11/04/16 0449 11/04/16 0449 Imaging Last Impressions Chest X-Ray 11/01/162151 Signed Impressions: Service Date/Time: Tuesday, November 01, 2016 20:11 - CONCLUSION: Cardiomegaly. Minimal basilar atelectasis. Pacer leads unchanged. Silvino Duke MD Objective Remarks General: Morbidly obese male in no acute distress. Heart: Regular rate and rhythm. No murmur. Lungs: Clear to auscultation bilaterally. No wheezes, rales, or rhonchi. Breathing is nonlabored. Abdomen: Soft, nontender, nondistended. Extremities: No lower extremity edema. SCDs. Both feet are tender to palpation, left>right. No apparent erythema. Psych: Alert and oriented. Urinary Catheter: No Vascular Central Line Catheter: No A/P Problem List: (1) Ventricular tachycardia ICD Code: I47.2 Status: Acute (2) Type 2 diabetes mellitus ICD Code: E11.9 Status: Chronic (3) Neuropathy ICD Code: G62.9 Status: Chronic (4) Hyperlipidemia ICD Code: E78.5 Status: Chronic (5) CAD (coronary artery disease) ICD Code: I25.10 Status: Chronic (6) Morbid obesity ICD Code: E66.01 Status: Chronic (7) Sleep apnea ICD Code: G47.30 Status: Chronic (8) AICD discharge ICD Code: Z45.02 Status: Acute (9) Hypertension ICD Code: I10 Status: Chronic (10) Esophageal reflux ICD Code: K21.9 Status: Chronic (11) Depressed ICD Code: F32.9 Status: Acute (12) Noncompliance ICD Code: Z91.19 Status: Acute (13) Post-nasal drip ICD Code: R09.82 Status: Acute Assessment and Plan 1. Wide-complex tachycardia, AICD firing: Appreciate cardiology recommendations. On amiodarone drip. Lidocaine drip discontinued secondary to acute kidney injury. Continue Coreg. 2-D echocardiogram shows EF 50% with systolic function at the lower limits of normal. 2. Elevated troponin, CAD: Trending down. Likely secondary to AICD firing. May go for cardiac catheterization today. Appreciate cardiology recommendations. Continue statin, beta etienne. NGUYEN inhibitor on hold secondary to acute kidney injury. The patient is status post CABG 5 vessels. 3. Acute renal failure superimposed on chronic kidney disease stage III: NGUYEN inhibitor on hold. Monitor BUN and creatinine. Improving. 4. GI prophylaxis: Protonix. 5. Diabetes mellitus type 2: Continue Levemir. Monitor Accu-Cheks and cover with sliding scale insulin. 6. Anemia: Monitor H&H. 7. Morbid obesity: Counseled regarding weight loss. 8. DVT prophylaxis: SCDs, heparin. 9. CODE STATUS: Full code. 10. Gout: Continue allopurinol. Patient states that he is having a flare involving both feet, left greater than right. He takes colchicine at home for gout flares. I counseled him that we would need to be cautious with anti- inflammatories and other nephrotoxic meds because of his elevated creatinine. Will increase pain medication. Problem Qualifiers (1) Type 2 diabetes mellitus: Qualified Code: E11.8 - Type 2 diabetes mellitus with complication, without long-term current use of insulin (2) Hyperlipidemia: Qualified Code: E78.5 - Hyperlipidemia, unspecified hyperlipidemia type (3) CAD (coronary artery disease): Qualified Code: I25.10 - Coronary artery disease involving [place] heart without angina pectoris, unspecified vessel or lesion type (4) Morbid obesity: Qualified Code: E66.01 - Morbid obesity, unspecified obesity type (5) Sleep apnea: Qualified Code: G47.30 - Sleep apnea, unspecified type (6) Hypertension: Qualified Code: I15.9 - Secondary hypertension (7) Esophageal reflux: Qualified Code: K21.9 - Gastroesophageal reflux disease, esophagitis presence not specified (8) Depressed: Qualified Code: F32.9 - Depression, unspecified depression type Pedro Luis Saleem MD Nov 04, 2016 08:43
[2016-11-04] MEDS: FLUTICASONE PROPIONATE 50 MCG/ACT 16 GM NASAL SPRAY NASAL SCH ×2 (09:00→20:35)
[2016-11-04] MEDS: INSULIN DETEMIR 100 UNITS/ML VIAL SQ SCH ×2 (09:00→20:35)
[2016-11-04] MEDS: GABAPENTIN 300 MG CAP PO SCH ×2 (09:27→20:31)
[2016-11-04] MEDS: CLOPIDOGREL 75 MG TAB PO SCH (09:27)
[2016-11-04] MEDS: AMIODARONE 200 MG TAB PO SCH ×2 (09:27→20:34)
[2016-11-04] MEDS: DOCUSATE SODIUM 100 MG CAP PO SCH ×2 (09:27→20:31)
[2016-11-04] MEDS: ASPIRIN 325 MG TAB PO SCH (09:28)
[2016-11-04] MEDS: BUDESONIDE-FORMOTEROL 160/4.5 MCG INHALER INH SCH ×2 (09:28→20:34)
[2016-11-04] MEDS: FUROSEMIDE 20 MG TAB PO SCH (09:28)
[2016-11-04] MEDS: CARVEDILOL 12.5 MG TAB PO SCH ×2 (09:28→20:31)
[2016-11-04] MEDS: ALLOPURINOL 100 MG TAB PO SCH (09:28)
[2016-11-04] MEDS: PANTOPRAZOLE SOD 20 MG DELAYED RELEASE TAB PO SCH ×2 (09:28→20:31)
[2016-11-04] MEDS: SODIUM CHLORIDE 0.9% FLUSH 5 ML FLUSH IV FLUSH SCH (09:29)
[2016-11-04] MEDS: ACETAMINOPHEN/HYDROcodone 325 MG/10 MG TAB PO PRN ×3 (12:27→23:44)
[2016-11-04] MEDS ORDERED: MIDAZOLAM HCL 2 MG/2 ML VIAL ONE ×2 (13:03→14:53)
[2016-11-04] MEDS ORDERED: HEPARIN-NS/PF INJ 500 ML ONE ×2 (13:11→14:35)
[2016-11-04] MEDS ORDERED: HEPARIN SODIUM - IV 10,000 UNITS/10 ML VIAL ONE ×2 (13:17→15:29)
[2016-11-04] MEDS ORDERED: VERAPAMIL HCL 5 MG/2 ML VIAL ONE (13:17)
[2016-11-04] MEDS ORDERED: NITROGLYCERIN INJ 5 ML ONE (13:17)
[2016-11-04] MEDS ORDERED: ONDANSETRON HCL 4 MG/2 ML VIAL ONE (15:26)
[2016-11-04] MEDS ORDERED: SODIUM NITROPRUSSIDE 50 MG/2 ML VIAL ONE (15:38)
[2016-11-04] MEDS ORDERED: PROTAMINE SULFATE 50 MG/5 ML VIAL ONE (15:57)
[2016-11-04] MEDS ORDERED: IOHEXOL 350 MG/ML 100 ML BTL (for Cath Lab) OTHER ONE (16:00)
[2016-11-04] MEDS ORDERED: SODIUM CHLORIDE 0.9% FLUSH 5 ML FLUSH IVF PRN (16:15)
[2016-11-04] MEDS ORDERED: ONDANSETRON HCL 4 MG/2 ML VIAL IV PRN (16:15)
[2016-11-04] MEDS ORDERED: ATROPINE SULFATE 1 MG/ML VIAL IV PRN (16:15)
[2016-11-04] MEDS ORDERED: MISC INFORMATION XX ONE (16:15)
--- NOTE | 2016-11-04 16:45 | MA ---
cc: KARLA BROUSSARD DATE: 11/04/2016. PROCEDURE PERFORMED: 1. Left heart catheterization. 2. Selective YOUNG and SVG to saphenous vein graft angiography. 3. Successful POBA to saphenous vein graft going to obtuse marginal. INDICATIONS FOR THE PROCEDURE: Non-Ischemic Cardiomyopathy/VT storm / status post AICD shocks. DESCRIPTION OF PROCEDURE: Consent signed. The patient was brought into the cardiac laborer road in a fasting state. The right groin was prepped and draped in a sterile fashion. Using 1% lidocaine for local anesthesia and a micropuncture kit, a 6-[place]man[place] sheath was inserted into the right common femoral artery. A right common femoral artery angiography was performed to confirm position of the sheath. Then selective right and left coronary angiography was performed with a JR-4 and JL-4 diagnostic catheters followed by angiography to the saphenous vein graft and left mammary artery with an MP and a JR catheters. Angiography was taken in multiple views. The patient had severe bois forte coronary artery disease and known 2 out of 4 grafts patent. The patient's YOUNG to the LAD was patent; however, there was a proximal ISR 80% stenotic lesion on the saphenous vein graft going to the obtuse marginal amenable for PCI. The saphenous vein graft was engaged with an AL-1 6-Omani guide. IV heparin was given for anticoagulation. Distal Protection device was not able shiv deliver due to tortuosity thus IC Nipride was given for chemical protection. The vessel was wired with a run-through which was anchored distally. Then a 3.0 x 12 balloon was inserted and inflated to high atmospheres inside the stent follow by another balloon 3.5 x 12, which was inflated to high atmospheres. Final angiographic views revealed good vessel expansion with DENISE III flow and 0% residual stenosis. The patient tolerated the procedure well without complications. Estimated blood loss was less than 30 mL. The right groin access site was closed with a Perclose device. ANGIOGRAPHIC RESULTS: 1. The left main is diffusely diseased; however, it is patent. 2. The left anterior descending is 100% occluded proximally. It has a prominent S1, which is patent, and giving off collaterals to the right coronary artery 3. The left circumflex bois [place]te vessel is 100% occluded. 4. The right coronary artery is PATHOLOGY TECH occlusion. 5. The YOUNG to the LAD is patent. It anastomoses in the mid left anterior descending and is giving flow to the distal left anterior descending, which is a small vessel, and a diagonal vessel. 6. SVG to RCA occluded. 7. SVG to the diagonal occluded. 8. SVG to the OM is patent with a 80% lesion proximal. This lesion in-stent- restenosis CONCLUSIONS: 1. Severe bois forte coronary artery disease with 2/4 grafts patent. 2. Successful POBA to ISR of the saphenous vein graft going to the obtuse marginal. RECOMMENDATIONS: 1. Continue aggressive medical management for coronary artery disease 2. DAPT with Aspirin and Plavix. 2. Therapeutic lifestyle changes/ weight loss. 3. Post cath care. MD JEAN-PIERRE Griggs/ZANA /4:09 PM /4:34 PM VANDANA
[2016-11-04] MEDS: SENNOSIDES 8.6 MG TAB PO SCH (20:31)
[2016-11-04] MEDS: PRAVASTATIN SOD 40 MG TAB PO SCH (20:31)
[2016-11-04] MEDS: SODIUM CHLORIDE 0.9% FLUSH 5 ML FLUSH IVF SCH (20:35)
[2016-11-05] VITALS (29 sets, daily range): BP systolic 92–149; BP diastolic 50–77; PULSE 65–80; RESP 12–20; TEMP 97.5–99.2; O2SAT 91–96
[2016-11-05 03:48] LABS: AUTOMATED NEUTROPHIL # 10.6 TH/MM3 (1.8-7.7); BASOPHIL # 0.1 TH/MM3 (0-0.2); BASOPHIL % 0.4 % (0.0-2.0); EOSINOPHIL # 0.1 TH/MM3 (0-0.4); EOSINOPHIL % 0.8 % (0.0-4.0); HEMATOCRIT 39.7 % (39.0-51.0); HEMO FLAGS DIFF FINAL; LYMPH % 5.7 % (9.0-44.0); LYMPHOCYTE # 0.7 TH/MM3 (1.0-4.8); MEAN CELL VOLUME 82.2 FL (80.0-100.0); MEAN CORPUSCULAR HGB CONC 31.7 % (32.0-36.0); MONO % 5.8 % (0.0-8.0); NEUT % 87.3 % (16.0-70.0); PLATELET COUNT 189 TH/MM3 (150-450); RED BLOOD COUNT 4.83 MIL/MM3 (4.50-5.90); WHITE BLOOD COUNT 12.1 TH/MM3 (4.0-11.0)
[2016-11-05 04:07] LABS: BICARBONATE 35.5 MEQ/L (21.0-32.0); POTASSIUM 5.4 MEQ/L (3.5-5.1)
[2016-11-05] MEDS: INSULIN NovoLIN REGULAR SUPPLEMENTAL SCALE SQ SCH ×3 (06:06→16:36)
[2016-11-05] MEDS ORDERED: SODIUM CHLOR 0.9% 1000 ML INJ 1,000 ML IV SCH (08:00)
--- NOTE | 2016-11-05 08:20 | PD.CARD.PN ---
Subjective Subjective Remarks no complaints fall from bed last night Objective Medications Current Medications Medications (Trade) Dose Ordered Sig/Lester Route Start Time Stop Time Status Last Admin (Zyloprim) 100 mg DAILY PO 11/02/16 09:00 11/04/16 09:28 (Aspirin) 325 mg DAILY PO 11/02/16 09:00 11/04/16 09:28 (Plavix) 75 mg DAILY PO 11/02/16 09:00 11/04/16 09:27 (Flonase Dave Spr) 1 spray BID NASAL 11/02/16 09:00 11/04/16 20:35 (Lasix) 20 mg DAILY PO 11/02/16 09:00 11/04/16 09:28 (Protonix) 20 mg BID PO 11/02/16 09:00 11/04/16 20:31 (Senokot) 8.6 mg HS PO 11/02/16 21:00 11/04/16 20:31 Patient Own Medication PT OWN MED: ARTHRI... DAILY PRN PO 11/02/16 03:00 (Symbicort 160-4.5 Inh) 2 puff BID INH 11/02/16 09:00 11/04/16 20:34 (Pravachol) 80 mg HS PO 11/02/16 21:00 11/04/16 20:31 (Tylenol) 650 mg Q6H PRN PO 11/02/16 02:45 11/03/16 21:31 (Zofran Inj) 4 mg Q6H PRN IV 11/02/16 02:45 (Colace) 100 mg BID PO 11/02/16 09:00 11/04/16 20:31 Miscellaneous Information 1 Q361D XX 11/02/16 02:45 (Chlorhexidine 2% Cloth) 3 pack Taper DAILY@04 TOP 11/02/16 04:00 10/29/17 03:59 11/02/16 04:00 (Chlorhexidine 2% Cloth) 3 pack UNSCH PRN TOP 11/02/16 02:45 (D50w (Vial) Inj) 25 ml UNSCH PRN IV PUSH 11/02/16 02:45 (Glucagon Inj) 1 mg UNSCH PRN OTHER 11/02/16 02:45 (Levemir Inj) 25 units Q12HR SQ 11/02/16 09:00 11/04/16 20:35 (Coreg) 25 mg BID PO 11/02/16 21:00 11/04/16 20:31 (Neurontin) 600 mg BID PO 11/03/16 21:00 11/04/16 20:31 (Cordarone) 200 mg Q12HR PO 11/03/16 13:30 11/04/16 20:34 ([place] 5-325 Mg) 1 tab Q4HR PRN PO 11/04/16 09:00 ([place] 10-325 Mg) 1 tab Q4H PRN PO 11/04/16 09:00 11/04/16 23:44 (NS Flush) 2 ml UNSCH PRN IVF 11/04/16 16:15 (NS Flush) 2 ml BID IVF 11/04/16 21:00 11/04/16 20:35 (Atropine Inj) 0.5 mg UNSCH PRN IV 11/04/16 16:15 Ondansetron HCl 4 mg 4 mg Q4H PRN IV 11/04/16 16:15 (NS 1000 ml Inj) 1,000 ml @ 42 mls/hr [id number] IV 11/05/16 08:00 Vital Signs / I&O Vital Signs Date Time Temp Pulse Resp B/P Pulse Ox O2 Delivery O2 Flow Rate FiO2 11/05/16 07:48 94 Nasal Cannula 4.00 11/05/16 06:01 73 11/05/16 05:00 79 11/05/16 04:01 77 11/05/16 03:30 98.9 72 18 133/77 91 11/05/16 03:00 72 11/05/16 02:00 73 11/05/16 01:00 77 11/05/16 00:45 22 11/05/16 00:00 79 11/04/16 23:45 98.6 82 24 138/68 91 11/04/16 23:01 81 11/04/16 22:00 81 11/04/16 21:00 76 11/04/16 20:55 93 Nasal Cannula 2.00 11/04/16 20:01 100 Nasal Cannula 2.00 11/04/16 20:01 98.5 79 24 139/63 90 11/04/16 20:00 80 11/04/16 19:00 75 11/04/16 18:00 79 11/04/16 17:00 68 11/04/16 16:30 99.5 68 22 103/56 95 11/04/16 16:00 67 11/04/16 12:00 63 11/04/16 11:00 64 11/04/16 11:00 98.6 62 15 99/54 92 11/04/16 09:00 66 11/04/16 08:21 98 21 I/O 11/04/16 11/04/16 11/04/16 11/05/16 11/05/16 11/05/16 07:00 15:00 23:00 07:00 15:00 23:00 Intake Total 960 ml 720 ml 480 ml Output Total 750 ml 1175 ml 750 ml Balance 210 ml -455 ml -270 ml Intake Oral 960 ml 720 ml 480 ml Output Urine Total 750 ml 1175 ml 750 ml # Voids 4 4 # Bowel Movements 0 0 0 Physical Exam GENERAL: Well-nourished, well-developed patient.Awake, alert, and oriented x 3. Non-focal. SKIN: Warm and dry. HEAD: Normocephalic. EYES: No scleral icterus. No injection or drainage. NECK: Supple, trachea midline. No JVD or lymphadenopathy. CARDIOVASCULAR: Regular rate and rhythm without murmurs, gallops, or rubs. RESPIRATORY: Breath sounds equal bilaterally. No accessory muscle use. GASTROINTESTINAL: Abdomen obese, soft, non-tender, nondistended. EXTREMITIES: No cyanosis, +edema. Laboratory Laboratory Tests Test 11/05/16 03:40 White Blood Count 12.1 TH/MM3 Red Blood Count 4.83 MIL/MM3 Hemoglobin 12.6 GM/DL Hematocrit 39.7 % Mean Corpuscular Volume 82.2 FL Mean Corpuscular Hemoglobin 26.0 PG Mean Corpuscular Hemoglobin 31.7 % Concent Red Cell Distribution Width 16.0 % Platelet Count 189 TH/MM3 Mean Platelet Volume 8.4 FL Neutrophils (%) (Auto) 87.3 % Lymphocytes (%) (Auto) 5.7 % Monocytes (%) (Auto) 5.8 % Eosinophils (%) (Auto) 0.8 % Basophils (%) (Auto) 0.4 % Neutrophils # (Auto) 10.6 TH/MM3 Lymphocytes # (Auto) 0.7 TH/MM3 Monocytes # (Auto) 0.7 TH/MM3 Eosinophils # (Auto) 0.1 TH/MM3 Basophils # (Auto) 0.1 TH/MM3 CBC Comment DIFF FINAL Differential Comment Sodium Level 133 MEQ/L Potassium Level 5.4 MEQ/L Chloride Level 94 MEQ/L Carbon Dioxide Level 35.5 MEQ/L Anion Gap 4 MEQ/L Blood Urea Nitrogen 36 MG/DL Creatinine 1.67 MG/DL Estimat Glomerular Filtration 43 ML/MIN Rate Random Glucose 213 MG/DL Calcium Level 8.5 MG/DL Imaging Last Impressions Chest X-Ray 11/01/162151 Signed Impressions: Service Date/Time: Tuesday, November 01, 2016 20:11 - CONCLUSION: Cardiomegaly. Minimal basilar atelectasis. Pacer leads unchanged. Silvino Duke MD Assessment and Plan Problem List: (1) Ventricular tachycardia Assessment and Plan: Stable from CV standpoint S/P POBA to SVG to OM No more episodes of VT Cont Amio PO Cont DAPT Refer to for sleep study TANA/CPAP Cardiology follow outpatient Sign off (2) Obesity (3) JOSE R (acute kidney injury) (4) CAD (coronary artery disease) (5) Hyperlipidemia (6) Hypertension Problem Qualifiers (1) CAD (coronary artery disease): Qualified Code: I25.10 - Coronary artery disease involving [place] heart without angina pectoris, unspecified vessel or lesion type (2) Hyperlipidemia: Qualified Code: E78.5 - Hyperlipidemia, unspecified hyperlipidemia type (3) Hypertension: Qualified Code: I15.9 - Secondary hypertension Wil Garay MD Nov 05, 2016 08:20
[2016-11-05] MEDS: INSULIN DETEMIR 100 UNITS/ML VIAL SQ SCH ×2 (09:16→21:00)
[2016-11-05] MEDS: SODIUM CHLORIDE 0.9% FLUSH 5 ML FLUSH IVF SCH ×2 (09:16→22:31)
[2016-11-05] MEDS: ALLOPURINOL 100 MG TAB PO SCH (09:17)
[2016-11-05] MEDS: DOCUSATE SODIUM 100 MG CAP PO SCH ×2 (09:17→22:31)
[2016-11-05] MEDS: CARVEDILOL 12.5 MG TAB PO SCH ×2 (09:17→22:30)
[2016-11-05] MEDS: GABAPENTIN 300 MG CAP PO SCH ×2 (09:17→22:30)
[2016-11-05] MEDS: CLOPIDOGREL 75 MG TAB PO SCH (09:18)
[2016-11-05] MEDS: BUDESONIDE-FORMOTEROL 160/4.5 MCG INHALER INH SCH ×2 (09:18→21:00)
[2016-11-05] MEDS: PANTOPRAZOLE SOD 20 MG DELAYED RELEASE TAB PO SCH ×2 (09:18→22:31)
[2016-11-05] MEDS: ASPIRIN 325 MG TAB PO SCH (09:18)
[2016-11-05] MEDS: FUROSEMIDE 20 MG TAB PO SCH (09:18)
[2016-11-05] MEDS: AMIODARONE 200 MG TAB PO SCH ×2 (09:18→22:31)
[2016-11-05] MEDS: FLUTICASONE PROPIONATE 50 MCG/ACT 16 GM NASAL SPRAY NASAL SCH ×2 (09:18→21:00)
--- NOTE | 2016-11-05 10:09 | HHI.PR ---
Subjective Remarks Follow up gout, CAD, electrolyte abnormalities. The patient is lethargic this morning. He apparently fell out of bed last night. No injuries reported. Apparently he slid down the side of the bed and landed softly. He denies complaints at this time, but is very sleepy and somewhat confused. Objective Vitals Vital Signs Date Time Temp Pulse Resp B/P Pulse Ox O2 Delivery O2 Flow Rate FiO2 11/05/16 07:48 94 Nasal Cannula 4.00 11/05/16 06:01 73 11/05/16 05:00 79 11/05/16 04:01 77 11/05/16 03:30 98.9 72 18 133/77 91 11/05/16 03:00 72 11/05/16 02:00 73 11/05/16 01:00 77 11/05/16 00:45 22 11/05/16 00:00 79 11/04/16 23:45 98.6 82 24 138/68 91 11/04/16 23:01 81 11/04/16 22:00 81 11/04/16 21:00 76 11/04/16 20:55 93 Nasal Cannula 2.00 11/04/16 20:01 100 Nasal Cannula 2.00 11/04/16 20:01 98.5 79 24 139/63 90 11/04/16 20:00 80 11/04/16 19:00 75 11/04/16 18:00 79 11/04/16 17:00 68 11/04/16 16:30 99.5 68 22 103/56 95 11/04/16 16:00 67 11/04/16 12:00 63 11/04/16 11:00 64 11/04/16 11:00 98.6 62 15 99/54 92 I/O 11/04/16 11/04/16 11/04/16 11/05/16 11/05/16 11/05/16 07:00 15:00 23:00 07:00 15:00 23:00 Intake Total 960 ml 720 ml 480 ml Output Total 750 ml 1175 ml 750 ml Balance 210 ml -455 ml -270 ml Intake Oral 960 ml 720 ml 480 ml Output Urine Total 750 ml 1175 ml 750 ml # Voids 4 4 # Bowel Movements 0 0 0 Result Diagram: 11/05/16 03411/05/16 034 Imaging Last Impressions Chest X-Ray 11/01/16 7273 Signed Impressions: Service Date/Time: Tuesday, November 01, 2016 20:11 - CONCLUSION: Cardiomegaly. Minimal basilar atelectasis. Pacer leads unchanged. Silvino Duke MD Objective Remarks General: Morbidly obese male in no acute distress. Heart: Regular rate and rhythm. No murmur. Lungs: Clear to auscultation bilaterally. No wheezes, rales, or rhonchi. Breathing is nonlabored. Abdomen: Soft, nontender, nondistended. Extremities: No lower extremity edema. SCDs. Psych: Lethargic, confused. Procedures 11/04/16 cardiac catheterization Urinary Catheter: No Vascular Central Line Catheter: No A/P Problem List: (1) Ventricular tachycardia ICD Code: I47.2 Status: Acute (2) Type 2 diabetes mellitus ICD Code: E11.9 Status: Chronic (3) Neuropathy ICD Code: G62.9 Status: Chronic (4) Hyperlipidemia ICD Code: E78.5 Status: Chronic (5) CAD (coronary artery disease) ICD Code: I25.10 Status: Chronic (6) Morbid obesity ICD Code: E66.01 Status: Chronic (7) Sleep apnea ICD Code: G47.30 Status: Chronic (8) AICD discharge ICD Code: Z45.02 Status: Acute (9) Hypertension ICD Code: I10 Status: Chronic (10) Esophageal reflux ICD Code: K21.9 Status: Chronic (11) Depressed ICD Code: F32.9 Status: Acute (12) Noncompliance ICD Code: Z91.19 Status: Acute (13) Post-nasal drip ICD Code: R09.82 Status: Acute Assessment and Plan 1. Wide-complex tachycardia, AICD firing: Appreciate cardiology recommendations. Now off amiodarone drip. Lidocaine drip discontinued secondary to acute kidney injury. Continue Coreg. 2-D echocardiogram shows EF 50% with systolic function at the lower limits of normal. 2. Elevated troponin, CAD: Trending down. Likely secondary to AICD firing. Continue statin, beta etienne. NGUYEN inhibitor on hold secondary to acute kidney injury. The patient is status post CABG 5 vessels. Status post cardiac catheterization yesterday with balloon angioplasty. Continue aspirin, Plavix. Cleared for discharge by cardiology. 3. Acute renal failure superimposed on chronic kidney disease stage III: NGUYEN inhibitor on hold. Monitor BUN and creatinine. Improving. 4. GI prophylaxis: Protonix. 5. Diabetes mellitus type 2: Continue Levemir. Monitor Accu-Cheks and cover with sliding scale insulin. 6. Anemia: Monitor H&H. 7. Morbid obesity: Counseled regarding weight loss. 8. DVT prophylaxis: SCDs, heparin. 9. CODE STATUS: Full code. 10. Gout: Continue allopurinol. Patient states that he is having a flare involving both feet, left greater than right. He takes colchicine at home for gout flares. I counseled him that we would need to be cautious with anti- inflammatories and other nephrotoxic meds because of his elevated creatinine. Continue pain medication. 11. Mild hyperkalemia: Monitor labs. Continue furosemide for diuresis. 12. Lethargy, confusion: Possibly due to pain medications. Will decrease [place] and monitor mental status. Discharge Planning Possible discharge in next 1-2 days pending clinical improvement. Problem Qualifiers (1) Type 2 diabetes mellitus: Qualified Code: E11.8 - Type 2 diabetes mellitus with complication, without long-term current use of insulin (2) Hyperlipidemia: Qualified Code: E78.5 - Hyperlipidemia, unspecified hyperlipidemia type (3) CAD (coronary artery disease): Qualified Code: I25.10 - Coronary artery disease involving [place] heart without angina pectoris, unspecified vessel or lesion type (4) Morbid obesity: Qualified Code: E66.01 - Morbid obesity, unspecified obesity type (5) Sleep apnea: Qualified Code: G47.30 - Sleep apnea, unspecified type (6) Hypertension: Qualified Code: I15.9 - Secondary hypertension (7) Esophageal reflux: Qualified Code: K21.9 - Gastroesophageal reflux disease, esophagitis presence not specified (8) Depressed: Qualified Code: F32.9 - Depression, unspecified depression type Pedro Luis Saleem MD Nov 05, 2016 10:09
--- NOTE | 2016-11-05 11:05 | RADRPT ---
EXAM DATE/TIME: 11/05/2016 10:39 [facility] COMPARISON: CHEST SINGLE AP, November 01, 2016, 20:11. INDICATIONS : Shortness of breath. MEDICAL HISTORY : Chronic obstructive pulmonary disease. SURGICAL HISTORY : CABG. Pacemaker. ENCOUNTER: Initial ACUITY: 1 day PAIN SCORE: 0/10 LOCATION: chest FINDINGS: A single view of the chest demonstrates cardiomegaly with increased pulmonary vascularity. Previous C ABG and right-sided defibrillator. The cardiomediastinal contours are unremarkable. Osseous structur es are intact. CONCLUSION: Cardiomegaly with increased pulmonary vascularity. Douglas Rodríguez MD on November 05, 2016 at 11:02 Board Certified Radiologist. This report was verified electronically.
[2016-11-05] MEDS ORDERED: FUROSEMIDE 40 MG/4 ML VIAL IV PUSH ONE (20:30)
[2016-11-05] MEDS ORDERED: SODIUM CHLORID 0.9% 500 ML INJ 500 ML IV ONE (21:00)
[2016-11-05] MEDS ORDERED: SODIUM CHLORID 0.9% 500 ML INJ 500 ML IV PRN (21:00)
--- NOTE | 2016-11-05 21:29 | HHI.PR ---
Addendum to Inpatient Note Addendum Reason: Additional Documentation Additional Information Mr. Jackson is a 56-year-old male status post cardiac catheterization with balloon angioplasty to saphenous vein graft from prior CABG. Nursing called to notify that the patient is complaining of shortness of breath, coughing up blood -tinged sputum, and chest pain when taking a deep breath. He reports oxygen saturations 94-95%. Blood pressure has dropped to 92/50 which is low compared to prior readings. Discussed case with Dr. Lisha Lott. We'll administer normal saline 500 cc fluid bolus, obtain CT pulmonary angiogram to rule out pulmonary embolism, and another fluid bolus following CT pulmonary angiogram because of acute on chronic renal failure. Was called by the patient's nurse called to inform us that the patient is refusing CT pulmonary angiogram due to claustrophobia. Repeat blood pressure shows blood pressure now 130/60. Dr. Lott has ordered Ativan 0.[address] Will follow results. . Ping Buckner Nov 05, 2016 21:29
[2016-11-05] MEDS ORDERED: LORazepam 2 MG/ML VIAL IV PUSH ONE (21:30)
[2016-11-05 21:55] LABS: BLOOD GAS BASE EXCESS 7.1 mmol/L (-2-2); BLOOD GAS CARBOXYHEMOGLOBIN 0.7 % (0-4); BLOOD GAS HCO3 34 mmol/L (22-26); BLOOD GAS O2 HGB SATURATION 87 % (90-100); BLOOD GAS OXYGEN CONTENT 14.2 Vol % (12.0-20.0); BLOOD GAS PCO2 78 mmHg (38-42); BLOOD GAS PO2 66 mmHg (61-120); BLOOD GAS TOTAL HGB 11.6 G/DL (12.0-16.0); TEMP CORR TO 98.6
[2016-11-05 21:57] LABS: CRITICAL VALUE YES; DRAW SITE RT RADIAL; LITER FLOW 4 L/M; NUMBER OF ARTERIAL PUNCTURES 1; OXYGEN DEVICE NASAL CANNULA; STAT YES
[2016-11-05] MEDS: PRAVASTATIN SOD 40 MG TAB PO SCH (22:30)
[2016-11-05] MEDS ORDERED: SODIUM BICARBONATE 8.4% INJ 50 MEQ/50 ML SYR IV PUSH ONE (22:30)
[2016-11-05] MEDS: SENNOSIDES 8.6 MG TAB PO SCH (22:30)
[2016-11-05] MEDS ORDERED: IOHEXOL 350 MG/ML 10 ML VIAL (for RAD DIAG) IV ONE (23:26)
--- NOTE | 2016-11-05 23:47 | RADRPT ---
EXAM DATE/TIME: 11/05/2016 23:17 [facility] COMPARISON: No previous studies available for comparison. INDICATIONS : Tachycardia; rule out pulmonary embolus. IV CONTRAST: 75 cc Omnipaque 350 (iohexol) IV RADIATION DOSE: 19.57 CTDIvol (mGy) MEDICAL HISTORY : Cardiovascular disease. Chronic obstructive pulmonary disease. Myocardial infarction.Hypertension, GE RD SURGICAL HISTORY : CABG Pacemaker. ENCOUNTER: Initial ACUITY: 1 day PAIN SCALE: 5/10 LOCATION: chest TECHNIQUE: Volumetric scanning of the chest was performed using a pulmonary embolism protocol MIP images were re constructed. Using automated exposure control and adjustment of the mA and/or kV according to patien t size, radiation dose was kept as low as reasonably achievable to obtain optimal diagnostic quality images. FINDINGS: PULMONARY ARTERIES: No filling defects are seen in the pulmonary arteries through the segmental level. LUNGS: Very mild and primarily dependent/basilar consolidation seen on both sides. There is mild, generalize d thickening of the interlobular septa suggesting mild pulmonary edema. No effusion. PLEURAE: There is no pleural thickening or pleural effusion. MEDIASTINUM: Heart size within normal limits. Patient has had previous coronary artery bypass graft operation. The re is a right subclavian transvenous cardiac pacer/defibrillator. There are a few scattered upper st[place] its of normal to mildly enlarged mediastinal lymph nodes, for example at a 18 x 26 mm subcarinal lymp h node. MUSCULOSKELETAL: Within normal limits for patient age. MISCELLANEOUS: The visualized upper abdominal organs demonstrate no acute abnormality. CONCLUSION: 1. No pulmonary embolus. 2. Trace atelectasis and probable slight pulmonary edema. No large or confluent consolidation. 3. Previous CABG. Cardiac pacer/defibrillator present. 4. A few upper limits of normal to mildly enlarged nonspecific mediastinal lymph nodes. Roshan Mckenzie MD on November 05, 2016 at 23:40 Board Certified Radiologist. This report was verified electronically.
[2016-11-06] VITALS (18 sets, daily range): BP systolic 97–139; BP diastolic 44–80; PULSE 45–92; RESP 13–23; TEMP 97.6–98.1; O2SAT 90–97
[2016-11-06] MEDS: INSULIN NovoLIN REGULAR SUPPLEMENTAL SCALE SQ SCH ×5 (00:14→21:31)
[2016-11-06] MEDS ORDERED: LORazepam 2 MG/ML VIAL IV PUSH ONE (01:00)
[2016-11-06] MEDS ORDERED: LORazepam 2 MG/ML VIAL IV PUSH PRN (01:15)
[2016-11-06 01:58] LABS: BLOOD GAS BASE EXCESS 6.9 mmol/L (-2-2); BLOOD GAS CARBOXYHEMOGLOBIN 1.8 % (0-4); BLOOD GAS HCO3 34 mmol/L (22-26); BLOOD GAS METHEMOGLOBIN 1.6 % (0-2); BLOOD GAS O2 HGB SATURATION 87 % (90-100); BLOOD GAS OXYGEN CONTENT 13.9 Vol % (12.0-20.0); BLOOD GAS PCO2 83 mmHg (38-42); BLOOD GAS PO2 66 mmHg (61-120); BLOOD GAS TOTAL HGB 11.4 G/DL (12.0-16.0); TEMP CORR TO 98.6
[2016-11-06 01:59] LABS: CRITICAL VALUE YES; DRAW SITE RT RADIAL; FIO2 35 %; NUMBER OF ARTERIAL PUNCTURES 2; OXYGEN DEVICE BIPAP; STAT NO; ULNAR PULSE PRESENT; VENT SETTINGS IPAP15/5PEEP
[2016-11-06] MEDS ORDERED: DEXMEDETOMIDINE INJ 50 ML ONE ×2 (02:17→13:06)
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
[2016-11-06] MEDS: DEXMEDETOMIDINE INJ 50 ML IV SCH ×4 (02:34→04:53)
[2016-11-06] MEDS ORDERED: HALOPERIDOL LACTATE 5 MG/ML AMP IV PRN (03:00)
[2016-11-06 03:23] LABS: BICARBONATE 32.3 MEQ/L (21.0-32.0); MAGNESIUM 2.4 MG/DL (1.5-2.5); POTASSIUM 5.3 MEQ/L (3.5-5.1)
[2016-11-06] MEDS: CHLORHEXIDINE GLUCONATE 2 % 1 PACK (2 CLOTHS) TOP SCH (04:00)
[2016-11-06] MEDS: RESP: ALBUTEROL 2.5 MG/IPRATROPIUM 0.5 MG NEB (SCH) NEB ×4 (04:04→21:26)
[2016-11-06 04:56] LABS: BLOOD, URINE NEG (NEG); GLUCOSE,URINE NEG (NEG); KETONE, URINE NEG (NEG); NITRITE,URINE NEG (NEG); PH, URINE 5.5 (5.0-8.5); SQUAMOUS EPITHELIAL CELL URINE <1 /hpf (0-5); URINE COLOR YELLOW (YELLW/STRAW)
[2016-11-06 04:56] LABS: AUTOMATED NEUTROPHIL # 8.5 TH/MM3 (1.8-7.7); BASOPHIL # 0.1 TH/MM3 (0-0.2); BASOPHIL % 0.6 % (0.0-2.0); EOSINOPHIL # 0.2 TH/MM3 (0-0.4); EOSINOPHIL % 1.5 % (0.0-4.0); HEMATOCRIT 35.6 % (39.0-51.0); HEMO FLAGS DIFF FINAL; LYMPH % 8.8 % (9.0-44.0); LYMPHOCYTE # 0.9 TH/MM3 (1.0-4.8); MEAN CELL VOLUME 81.3 FL (80.0-100.0); MEAN CORPUSCULAR HEMOGLOBIN 26.5 PG (27.0-34.0); MEAN CORPUSCULAR HGB CONC 32.6 % (32.0-36.0); MONO % 7.1 % (0.0-8.0); PLATELET COUNT 168 TH/MM3 (150-450); RED BLOOD COUNT 4.38 MIL/MM3 (4.50-5.90); RED CELL DISTRIBUTION WIDTH 16.1 % (11.6-17.2); WHITE BLOOD COUNT 10.4 TH/MM3 (4.0-11.0)
[2016-11-06 04:58] LABS: COMMENT (UR) CATH-CULT NOT IND; CULTURE IF INDICATED CATH CULTURE NOT IND
[2016-11-06 05:03] LABS: BLOOD GAS BASE EXCESS 6.1 mmol/L (-2-2); BLOOD GAS CARBOXYHEMOGLOBIN 1.7 % (0-4); BLOOD GAS HCO3 33 mmol/L (22-26); BLOOD GAS METHEMOGLOBIN 1.7 % (0-2); BLOOD GAS O2 HGB SATURATION 89 % (90-100); BLOOD GAS OXYGEN CONTENT 14.5 Vol % (12.0-20.0); BLOOD GAS PCO2 80 mmHg (38-42); BLOOD GAS PO2 71 mmHg (61-120); BLOOD GAS TOTAL HGB 11.6 G/DL (12.0-16.0); TEMP CORR TO 98.6
[2016-11-06 05:04] LABS: CRITICAL VALUE YES; DRAW SITE RT RADIAL; FIO2 35 %; NUMBER OF ARTERIAL PUNCTURES 1; OXYGEN DEVICE BiPAP; STAT NO; ULNAR PULSE PRESENT; VENT SETTINGS IPAP18/8EPAP
[2016-11-06] MEDS ORDERED: FUROSEMIDE 20 MG/2 ML VIAL IV PUSH ONE (05:15)
[2016-11-06] MEDS: DEXMEDETOMIDINE INJ 1,000 MCG in SODIUM CHLOR 0.9% 250 ML INJ 240 ML IV SCH ×3 (06:02→21:49)
[2016-11-06 08:02] LABS: BLOOD GAS BASE EXCESS 6.9 mmol/L (-2-2); BLOOD GAS CARBOXYHEMOGLOBIN 1.7 % (0-4); BLOOD GAS HCO3 34 mmol/L (22-26); BLOOD GAS METHEMOGLOBIN 1.5 % (0-2); BLOOD GAS O2 HGB SATURATION 79 % (90-100); BLOOD GAS OXYGEN CONTENT 14.7 Vol % (12.0-20.0); BLOOD GAS PCO2 79 mmHg (38-42); BLOOD GAS PO2 54 mmHg (61-120); BLOOD GAS TOTAL HGB 13.3 G/DL (12.0-16.0); CRITICAL VALUE YES; DRAW SITE RT RADIAL; FIO2 35 %; OXYGEN DEVICE BiPAP; TEMP CORR TO 98.6; VENT SETTINGS IPAP 20/EPAP 8
[2016-11-06 08:03] LABS: NUMBER OF ARTERIAL PUNCTURES 1; STAT NO
[2016-11-06] MEDS: INSULIN DETEMIR 100 UNITS/ML VIAL SQ SCH ×2 (08:29→21:30)
[2016-11-06] MEDS: HEPARIN SODIUM - SQ 10,000 UNITS/ML VIAL SQ SCH ×2 (08:29→19:46)
[2016-11-06] MEDS: BUDESONIDE-FORMOTEROL 160/4.5 MCG INHALER INH SCH ×2 (08:29→21:32)
[2016-11-06] MEDS: FLUTICASONE PROPIONATE 50 MCG/ACT 16 GM NASAL SPRAY NASAL SCH ×2 (08:45→19:47)
[2016-11-06] MEDS: SODIUM CHLORIDE 0.9% FLUSH 5 ML FLUSH IVF SCH ×2 (08:45→21:00)
[2016-11-06] MEDS: ASPIRIN 325 MG TAB PO SCH ×2 (08:47→12:34)
[2016-11-06] MEDS: AMIODARONE 200 MG TAB PO SCH ×3 (08:47→19:45)
[2016-11-06] MEDS: GABAPENTIN 300 MG CAP PO SCH ×3 (08:47→19:45)
[2016-11-06] MEDS: CARVEDILOL 12.5 MG TAB PO SCH ×3 (08:47→19:45)
[2016-11-06] MEDS: DOCUSATE SODIUM 100 MG CAP PO SCH ×3 (08:47→19:45)
[2016-11-06] MEDS: CLOPIDOGREL 75 MG TAB PO SCH ×2 (08:48→12:35)
[2016-11-06] MEDS: PANTOPRAZOLE SOD 20 MG DELAYED RELEASE TAB PO SCH ×2 (08:48→19:46)
[2016-11-06] MEDS: ALLOPURINOL 100 MG TAB PO SCH ×2 (08:48→12:35)
--- NOTE | 2016-11-06 12:45 | EKG ---
Date Performed: 11/06/2016 Time Performed: 02:59:14 PTAGE: 56 years EKG: Sinus rhythm Poor R wave progression - probable normal variant Extensive ST-T changes are nonspecific Compared to previous tracing, sinus rate has slowed. ST changes are less prominent. Borderline ECG PREVIOUS TRACING : 11/01/2016 21.47 DOCTOR: Steve Canales Interpretating Date/Time 11/06/2016 12:44:48
[2016-11-06 16:34] LABS: BLOOD GAS BASE EXCESS 6.2 mmol/L (-2-2); BLOOD GAS CARBOXYHEMOGLOBIN 0.1 % (0-4); BLOOD GAS HCO3 33 mmol/L (22-26); BLOOD GAS METHEMOGLOBIN 1.2 % (0-2); BLOOD GAS O2 HGB SATURATION 94 % (90-100); BLOOD GAS OXYGEN CONTENT 16.3 Vol % (12.0-20.0); BLOOD GAS PCO2 72 mmHg (38-42); BLOOD GAS PO2 110 mmHg (61-120); BLOOD GAS TOTAL HGB 12.2 G/DL (12.0-16.0); CRITICAL VALUE YES; DRAW SITE LT RADIAL; FIO2 40 %; NUMBER OF ARTERIAL PUNCTURES 2; OXYGEN DEVICE BIPAP; STAT NO; TEMP CORR TO 98.6; VENT SETTINGS IPAP24/EPAP12
[2016-11-06] MEDS: PRAVASTATIN SOD 40 MG TAB PO SCH (19:45)
[2016-11-06] MEDS: SENNOSIDES 8.6 MG TAB PO SCH (19:46)
[2016-11-06 21:09] LABS: BLOOD GAS BASE EXCESS 5.3 mmol/L (-2-2); BLOOD GAS CARBOXYHEMOGLOBIN 0.3 % (0-4); BLOOD GAS HCO3 31 mmol/L (22-26); BLOOD GAS METHEMOGLOBIN 0.8 % (0-2); BLOOD GAS O2 HGB SATURATION 92 % (90-100); BLOOD GAS OXYGEN CONTENT 15.5 Vol % (12.0-20.0); BLOOD GAS PCO2 65 mmHg (38-42); BLOOD GAS PO2 81 mmHg (61-120); TEMP CORR TO 98.6
[2016-11-06 21:10] LABS: CRITICAL VALUE YES; DRAW SITE LT RADIAL; FIO2 40 %; NUMBER OF ARTERIAL PUNCTURES 1; OXYGEN DEVICE BIPAP; STAT NO; VENT SETTINGS IPAP24/EPAP12
[2016-11-07] VITALS (11 sets, daily range): BP systolic 92–127; BP diastolic 49–76; PULSE 42–64; RESP 12–20; TEMP 98–98.7; O2SAT 92–100
[2016-11-07] MEDS: RESP: ALBUTEROL 2.5 MG/IPRATROPIUM 0.5 MG NEB (SCH) NEB ×4 (03:59→21:12)
[2016-11-07] MEDS: CHLORHEXIDINE GLUCONATE 2 % 1 PACK (2 CLOTHS) TOP SCH (04:00)
[2016-11-07] MEDS: DEXMEDETOMIDINE INJ 1,000 MCG in SODIUM CHLOR 0.9% 250 ML INJ 240 ML IV SCH (05:17)
--- NOTE | 2016-11-07 05:18 | RADRPT ---
EXAM DATE/TIME: 11/07/2016 04:25 [facility] COMPARISON: CHEST SINGLE AP, November 05, 2016, 10:39. INDICATIONS : Shortness of breath, possible pulmonary disease. MEDICAL HISTORY : Chronic obstructive pulmonary disease. SURGICAL HISTORY : CABG. Pacemaker. ENCOUNTER: Subsequent ACUITY: 3 days PAIN SCORE: 0/10 LOCATION: Bilateral chest FINDINGS: The cardiac silhouette is normal in transverse diameter. Median sternotomy wires are present. A bipol ar pacemaker is in place via a right sided approach. There is prominence of the central pulmonary vas culature with indistinct vascular margins compatible with vascular congestion but no evidence of over t failure. There has been no significant change when compared to the prior exam. CONCLUSION: 1. Cardiomegaly and findings of vascular congestion without overt failure. There has been no signific ant change when compared to the prior exam. Niko Mcdaniels MD on November 07, 2016 at 5:17 Board Certified Radiologist. This report was verified electronically.
[2016-11-07 06:13] LABS: BLOOD GAS BASE EXCESS 4.1 mmol/L (-2-2); BLOOD GAS CARBOXYHEMOGLOBIN 0.1 % (0-4); BLOOD GAS HCO3 30 mmol/L (22-26); BLOOD GAS O2 HGB SATURATION 94 % (90-100); BLOOD GAS OXYGEN CONTENT 16.6 Vol % (12.0-20.0); BLOOD GAS PCO2 61 mmHg (38-42); BLOOD GAS PO2 102 mmHg (61-120); BLOOD GAS TOTAL HGB 12.5 G/DL (12.0-16.0); TEMP CORR TO 98.6
[2016-11-07 06:14] LABS: CRITICAL VALUE YES; DRAW SITE RT RADIAL; FIO2 40 %; NUMBER OF ARTERIAL PUNCTURES 1; OXYGEN DEVICE BiPAP; STAT NO; ULNAR PULSE PRESENT; VENT SETTINGS IPAP24/12EPAP
[2016-11-07] MEDS: INSULIN NovoLIN REGULAR SUPPLEMENTAL SCALE SQ SCH ×2 (06:40→18:00)
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
[2016-11-07] MEDS: INSULIN DETEMIR 100 UNITS/ML VIAL SQ SCH ×2 (08:39→20:27)
[2016-11-07] MEDS: SODIUM CHLORIDE 0.9% FLUSH 5 ML FLUSH IVF SCH ×2 (08:40→20:28)
[2016-11-07] MEDS: HEPARIN SODIUM - SQ 10,000 UNITS/ML VIAL SQ SCH ×2 (08:41→20:26)
[2016-11-07] MEDS: ASPIRIN 325 MG TAB PO SCH (08:42)
[2016-11-07] MEDS: DOCUSATE SODIUM 100 MG CAP PO SCH ×2 (08:42→20:28)
[2016-11-07] MEDS: PANTOPRAZOLE SOD 20 MG DELAYED RELEASE TAB PO SCH ×2 (08:43→20:25)
[2016-11-07] MEDS: GABAPENTIN 300 MG CAP PO SCH ×2 (08:43→20:25)
[2016-11-07] MEDS: CLOPIDOGREL 75 MG TAB PO SCH (08:43)
[2016-11-07] MEDS: ALLOPURINOL 100 MG TAB PO SCH (08:43)
[2016-11-07] MEDS: AMIODARONE 200 MG TAB PO SCH ×2 (08:43→20:25)
[2016-11-07] MEDS: FLUTICASONE PROPIONATE 50 MCG/ACT 16 GM NASAL SPRAY NASAL SCH ×2 (08:44→20:27)
[2016-11-07] MEDS: BUDESONIDE-FORMOTEROL 160/4.5 MCG INHALER INH SCH ×2 (08:45→20:28)
[2016-11-07] MEDS ORDERED: INSULIN NovoLIN REGULAR SUPPLEMENTAL SCALE SQ SCH (08:45)
[2016-11-07] MEDS ORDERED: DEXTROSE 50% IN WATER 50 ML VIAL(D50) IV PUSH PRN (08:45)
[2016-11-07] MEDS ORDERED: GLUCAGON 1 MG/ML VIAL OTHER PRN (08:45)
[2016-11-07] MEDS: CARVEDILOL 12.5 MG TAB PO SCH ×2 (09:00→20:26)
[2016-11-07 10:55] LABS: AUTOMATED NEUTROPHIL # 8.4 TH/MM3 (1.8-7.7); BASOPHIL # 0.1 TH/MM3 (0-0.2); BASOPHIL % 0.6 % (0.0-2.0); EOSINOPHIL # 0.3 TH/MM3 (0-0.4); EOSINOPHIL % 2.5 % (0.0-4.0); HEMATOCRIT 37.4 % (39.0-51.0); HEMO FLAGS DIFF FINAL; LYMPH % 11.5 % (9.0-44.0); LYMPHOCYTE # 1.2 TH/MM3 (1.0-4.8); MEAN CELL VOLUME 82.2 FL (80.0-100.0); MEAN CORPUSCULAR HEMOGLOBIN 26.1 PG (27.0-34.0); MEAN CORPUSCULAR HGB CONC 31.7 % (32.0-36.0); MONO % 5.9 % (0.0-8.0); NEUT % 79.5 % (16.0-70.0); PLATELET COUNT 171 TH/MM3 (150-450); RED BLOOD COUNT 4.55 MIL/MM3 (4.50-5.90); RED CELL DISTRIBUTION WIDTH 15.8 % (11.6-17.2); WHITE BLOOD COUNT 10.5 TH/MM3 (4.0-11.0)
[2016-11-07 11:28] LABS: ALKALINE PHOSPHATASE 72 U/L (45-117); ALT (GPT) 18 U/L (12-78); ANION GAP 7 MEQ/L (5-15); AST (GOT) 14 U/L (15-37); BICARBONATE 32.5 MEQ/L (21.0-32.0); BLOOD UREA NITROGEN 51 MG/DL (7-18); CHLORIDE 98 MEQ/L (98-107); GLOMERULAR FILTRATION RATE 39 ML/MIN (>89); MAGNESIUM 2.5 MG/DL (1.5-2.5); POTASSIUM 4.6 MEQ/L (3.5-5.1); SODIUM (NA) 137 MEQ/L (136-145); TOTAL BILIRUBIN ADULT 0.6 MG/DL (0.2-1.0)
[2016-11-07] MEDS: PRAVASTATIN SOD 40 MG TAB PO SCH (20:25)
[2016-11-07] MEDS: SENNOSIDES 8.6 MG TAB PO SCH (20:28)
[2016-11-07 20:54] LABS: BLOOD GAS BASE EXCESS 1.8 mmol/L (-2-2); BLOOD GAS CARBOXYHEMOGLOBIN 1.1 % (0-4); BLOOD GAS HCO3 28 mmol/L (22-26); BLOOD GAS METHEMOGLOBIN 1.8 % (0-2); BLOOD GAS O2 HGB SATURATION 95 % (90-100); BLOOD GAS OXYGEN CONTENT 16.7 Vol % (12.0-20.0); BLOOD GAS PCO2 62 mmHg (38-42); BLOOD GAS PO2 137 mmHg (61-120); BLOOD GAS TOTAL HGB 12.3 G/DL (12.0-16.0); TEMP CORR TO 98.6
[2016-11-07 20:55] LABS: CRITICAL VALUE YES; DRAW SITE RT RADIAL; LITER FLOW 10 L/M; NUMBER OF ARTERIAL PUNCTURES 1; OXYGEN DEVICE SIMPLE MASK; STAT NO; ULNAR PULSE PRESENT
[2016-11-08] VITALS (12 sets, daily range): BP systolic 111–140; BP diastolic 58–70; PULSE 64–98; RESP 18–20; TEMP 98.2–99.1; O2SAT 92–99
[2016-11-08] MEDS: RESP: ALBUTEROL 2.5 MG/IPRATROPIUM 0.5 MG NEB (SCH) NEB ×4 (03:32→21:21)
[2016-11-08] MEDS: CHLORHEXIDINE GLUCONATE 2 % 1 PACK (2 CLOTHS) TOP SCH (04:00)
[2016-11-08] MEDS: INSULIN NovoLIN REGULAR SUPPLEMENTAL SCALE SQ SCH ×4 (06:00→18:10)
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
[2016-11-08 08:36] LABS: AUTOMATED NEUTROPHIL # 7.8 TH/MM3 (1.8-7.7); BASOPHIL % 0.5 % (0.0-2.0); EOSINOPHIL # 0.2 TH/MM3 (0-0.4); EOSINOPHIL % 2.3 % (0.0-4.0); HEMATOCRIT 35.8 % (39.0-51.0); HEMO FLAGS DIFF FINAL; LYMPH % 9.7 % (9.0-44.0); LYMPHOCYTE # 0.9 TH/MM3 (1.0-4.8); MEAN CORPUSCULAR HGB CONC 31.7 % (32.0-36.0); MONO % 6.8 % (0.0-8.0); NEUT % 80.7 % (16.0-70.0); PLATELET COUNT 174 TH/MM3 (150-450); RED BLOOD COUNT 4.37 MIL/MM3 (4.50-5.90); RED CELL DISTRIBUTION WIDTH 15.7 % (11.6-17.2); WHITE BLOOD COUNT 9.7 TH/MM3 (4.0-11.0)
[2016-11-08] MEDS: HEPARIN SODIUM - SQ 10,000 UNITS/ML VIAL SQ SCH ×2 (08:46→21:36)
[2016-11-08] MEDS: INSULIN DETEMIR 100 UNITS/ML VIAL SQ SCH ×2 (08:47→21:38)
[2016-11-08] MEDS: AMIODARONE 200 MG TAB PO SCH ×2 (08:47→21:36)
[2016-11-08] MEDS: ASPIRIN 325 MG TAB PO SCH (08:47)
[2016-11-08] MEDS: DOCUSATE SODIUM 100 MG CAP PO SCH ×2 (08:47→21:00)
[2016-11-08] MEDS: CLOPIDOGREL 75 MG TAB PO SCH (08:47)
[2016-11-08] MEDS: GABAPENTIN 300 MG CAP PO SCH ×2 (08:47→21:36)
[2016-11-08] MEDS: ALLOPURINOL 100 MG TAB PO SCH (08:47)
[2016-11-08] MEDS: PANTOPRAZOLE SOD 20 MG DELAYED RELEASE TAB PO SCH ×2 (08:47→21:36)
[2016-11-08] MEDS: SODIUM CHLORIDE 0.9% FLUSH 5 ML FLUSH IVF SCH ×2 (08:48→21:37)
[2016-11-08] MEDS: CARVEDILOL 12.5 MG TAB PO SCH ×2 (08:48→21:36)
[2016-11-08] MEDS: FLUTICASONE PROPIONATE 50 MCG/ACT 16 GM NASAL SPRAY NASAL SCH ×2 (08:49→21:46)
[2016-11-08 08:59] LABS: BICARBONATE 32.2 MEQ/L (21.0-32.0); MAGNESIUM 2.5 MG/DL (1.5-2.5); POTASSIUM 4.4 MEQ/L (3.5-5.1)
[2016-11-08] MEDS: BUDESONIDE-FORMOTEROL 160/4.5 MCG INHALER INH SCH ×2 (09:13→21:46)
[2016-11-08] MEDS: ACETAMINOPHEN 325 MG TAB PO PRN (18:40)
[2016-11-08] MEDS: SENNOSIDES 8.6 MG TAB PO SCH (21:00)
[2016-11-08] MEDS: PRAVASTATIN SOD 40 MG TAB PO SCH (21:36)
[2016-11-09] VITALS (9 sets, daily range): BP systolic 100–150; BP diastolic 59–77; PULSE 69–77; RESP 18; TEMP 98–98.9; O2SAT 94–99
[2016-11-09] MEDS: INSULIN NovoLIN REGULAR SUPPLEMENTAL SCALE SQ SCH ×4 (00:04→15:39)
[2016-11-09] MEDS: RESP: ALBUTEROL 2.5 MG/IPRATROPIUM 0.5 MG NEB (SCH) NEB ×4 (03:50→21:44)
[2016-11-09] MEDS: CHLORHEXIDINE GLUCONATE 2 % 1 PACK (2 CLOTHS) TOP SCH (04:00)
[2016-11-09 05:28] LABS: AUTOMATED NEUTROPHIL # 5.5 TH/MM3 (1.8-7.7); BASOPHIL # 0.1 TH/MM3 (0-0.2); BASOPHIL % 0.8 % (0.0-2.0); EOSINOPHIL # 0.2 TH/MM3 (0-0.4); EOSINOPHIL % 3.1 % (0.0-4.0); HEMATOCRIT 35.3 % (39.0-51.0); HEMO FLAGS DIFF FINAL; LYMPH % 15.1 % (9.0-44.0); LYMPHOCYTE # 1.1 TH/MM3 (1.0-4.8); MEAN CELL VOLUME 82.3 FL (80.0-100.0); MEAN CORPUSCULAR HEMOGLOBIN 25.5 PG (27.0-34.0); MONO % 7.6 % (0.0-8.0); NEUT % 73.4 % (16.0-70.0); PLATELET COUNT 189 TH/MM3 (150-450); RED BLOOD COUNT 4.29 MIL/MM3 (4.50-5.90); RED CELL DISTRIBUTION WIDTH 15.8 % (11.6-17.2); WHITE BLOOD COUNT 7.6 TH/MM3 (4.0-11.0)
[2016-11-09 05:54] LABS: BICARBONATE 29.6 MEQ/L (21.0-32.0); POTASSIUM 4.2 MEQ/L (3.5-5.1)
[2016-11-09 08:34] LABS: BLOOD GAS BASE EXCESS 3.4 mmol/L (-2-2); BLOOD GAS CARBOXYHEMOGLOBIN 0.1 % (0-4); BLOOD GAS HCO3 30 mmol/L (22-26); BLOOD GAS METHEMOGLOBIN 0.9 % (0-2); BLOOD GAS O2 HGB SATURATION 93 % (90-100); BLOOD GAS OXYGEN CONTENT 15.4 Vol % (12.0-20.0); BLOOD GAS PCO2 68 mmHg (38-42); BLOOD GAS PO2 89 mmHg (61-120); BLOOD GAS TOTAL HGB 11.7 G/DL (12.0-16.0); CRITICAL VALUE YES; DRAW SITE RT BRACHIAL; LITER FLOW 4 L/M; NUMBER OF ARTERIAL PUNCTURES 2; OXYGEN DEVICE NASAL CANNULA; STAT NO; TEMP CORR TO 98.6; ULNAR PULSE PRESENT
[2016-11-09] MEDS: FLUTICASONE PROPIONATE 50 MCG/ACT 16 GM NASAL SPRAY NASAL SCH ×2 (09:00→21:00)
[2016-11-09] MEDS: BUDESONIDE-FORMOTEROL 160/4.5 MCG INHALER INH SCH ×2 (09:00→21:00)
[2016-11-09] MEDS: DOCUSATE SODIUM 100 MG CAP PO SCH ×2 (09:00→21:10)
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
[2016-11-09] MEDS: SODIUM CHLORIDE 0.9% FLUSH 5 ML FLUSH IVF SCH ×2 (10:23→21:12)
[2016-11-09] MEDS: AMIODARONE 200 MG TAB PO SCH ×2 (10:29→21:10)
[2016-11-09] MEDS: HEPARIN SODIUM - SQ 10,000 UNITS/ML VIAL SQ SCH ×2 (10:29→21:11)
[2016-11-09] MEDS: CARVEDILOL 12.5 MG TAB PO SCH ×2 (10:30→21:10)
[2016-11-09] MEDS: ASPIRIN 325 MG TAB PO SCH (10:30)
[2016-11-09] MEDS: ALLOPURINOL 100 MG TAB PO SCH (10:30)
[2016-11-09] MEDS: CLOPIDOGREL 75 MG TAB PO SCH (10:30)
[2016-11-09] MEDS: PANTOPRAZOLE SOD 20 MG DELAYED RELEASE TAB PO SCH ×2 (10:30→21:09)
[2016-11-09] MEDS: GABAPENTIN 300 MG CAP PO SCH ×2 (10:31→21:10)
[2016-11-09] MEDS: INSULIN DETEMIR 100 UNITS/ML VIAL SQ SCH ×2 (10:32→21:59)
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
[2016-11-09] MEDS: ACETAMINOPHEN/HYDROcodone 325 MG/5 MG TAB PO PRN ×2 (15:42→21:14)
--- NOTE | 2016-11-09 19:48 | HHI.PR ---
Subjective Remarks ALERT APPETITE GOOD Objective Vital Signs Date Time Temp Pulse Resp B/P Pulse Ox O2 Delivery O2 Flow Rate FiO2 11/09/16 17:22 18 11/09/16 15:00 72 11/09/16 15:00 98.0 72 18 129/74 96 11/09/16 15:00 96 Nasal Cannula 3.00 11/09/16 12:03 99 35 11/09/16 11:00 77 11/09/16 11:00 96 Nasal Cannula 3.00 11/09/16 11:00 98.6 77 18 100/59 96 11/09/16 07:22 94 Nasal Cannula 4.00 11/09/16 07:00 98.9 72 18 124/65 96 11/09/16 07:00 96 Nasal Cannula 3.00 11/09/16 07:00 72 11/09/16 03:00 74 11/09/16 03:00 96 Simple Mask 5.00 11/09/16 03:00 74 18 96 11/08/16 23:00 71 11/08/16 23:00 99 Simple Mask 5.00 11/08/16 23:00 98.6 71 18 119/58 99 11/08/16 21:21 97 Nasal Cannula 3.00 I/O 11/08/16 11/08/16 11/08/16 11/09/16 11/09/16 11/09/16 07:00 15:00 23:00 07:00 15:00 23:00 Intake Total 610 ml 940 ml 630 ml 1180 ml Output Total 1300 ml 1550 ml 1255 ml 1350 ml Balance -690 ml -610 ml -625 ml -170 ml Intake Oral 610 ml 940 ml 630 ml 1150 ml IV Total 0 ml 0 ml 30 ml Output Urine Total 1300 ml 1550 ml 1255 ml 1350 ml # Bowel Movements 2 1 0 2 Result Diagram: 11/09/16 0455 11/09/16 0455 Objective Remarks GENERAL: SKIN: Warm and dry. HEAD: Atraumatic. Normocephalic. EYES: Pupils equal and round. No scleral icterus. No injection or drainage. ENT: No nasal bleeding or discharge. Mucous membranes pink and moist. NECK: Trachea midline. No JVD. CARDIOVASCULAR: Regular rate and rhythm. RESPIRATORY: No accessory muscle use. Clear to auscultation. Breath sounds equal bilaterally. GASTROINTESTINAL: Abdomen soft, non-tender, nondistended. Hepatic and splenic margins not palpable. MUSCULOSKELETAL: Extremities without clubbing, cyanosis, or edema. No obvious deformities. NEUROLOGICAL: Awake and alert. No obvious cranial nerve deficits. Motor grossly within normal limits. Five out of 5 muscle strength in the arms and legs. Normal speech. PSYCHIATRIC: Appropriate mood and affect; insight and judgment normal. Assessment and Plan Assessment and Plan TNAA MORBID OBESITY C/O SLEEP MAINTENANCE INSOMNIA CAD PLAN BIPAP WHEN SLEEPING AMBIEN 5 MG HS PRN, INCREASE ACTIVITY Rodo Koehler MD Nov 09, 2016 19:48
[2016-11-09] MEDS: SENNOSIDES 8.6 MG TAB PO SCH (21:09)
[2016-11-09] MEDS: PRAVASTATIN SOD 40 MG TAB PO SCH (21:10)
[2016-11-09] MEDS: ZOLPIDEM TARTRATE 5 MG TAB PO PRN (21:10)
[2016-11-10] VITALS (9 sets, daily range): BP systolic 96–155; BP diastolic 46–77; PULSE 68–83; RESP 17–22; TEMP 98–99; O2SAT 94–99
[2016-11-10] MEDS: INSULIN NovoLIN REGULAR SUPPLEMENTAL SCALE SQ SCH ×5 (01:32→23:18)
[2016-11-10] MEDS: RESP: ALBUTEROL 2.5 MG/IPRATROPIUM 0.5 MG NEB (SCH) NEB (03:15)
[2016-11-10] MEDS: CHLORHEXIDINE GLUCONATE 2 % 1 PACK (2 CLOTHS) TOP SCH (04:00)
[2016-11-10] MEDS: INSULIN DETEMIR 100 UNITS/ML VIAL SQ SCH ×2 (08:34→21:12)
[2016-11-10] MEDS: CLOPIDOGREL 75 MG TAB PO SCH (08:35)
[2016-11-10] MEDS: HEPARIN SODIUM - SQ 10,000 UNITS/ML VIAL SQ SCH ×2 (08:35→21:11)
[2016-11-10] MEDS: BUDESONIDE-FORMOTEROL 160/4.5 MCG INHALER INH SCH ×2 (08:35→21:13)
[2016-11-10] MEDS: CARVEDILOL 12.5 MG TAB PO SCH ×2 (08:35→21:11)
[2016-11-10] MEDS: ASPIRIN 325 MG TAB PO SCH (08:35)
[2016-11-10] MEDS: FLUTICASONE PROPIONATE 50 MCG/ACT 16 GM NASAL SPRAY NASAL SCH ×2 (08:35→21:13)
[2016-11-10] MEDS: AMIODARONE 200 MG TAB PO SCH ×2 (08:36→21:12)
[2016-11-10] MEDS: ALLOPURINOL 100 MG TAB PO SCH (08:36)
[2016-11-10] MEDS: DOCUSATE SODIUM 100 MG CAP PO SCH ×2 (08:36→21:00)
[2016-11-10] MEDS: GABAPENTIN 300 MG CAP PO SCH ×2 (08:36→21:12)
[2016-11-10] MEDS: PANTOPRAZOLE SOD 20 MG DELAYED RELEASE TAB PO SCH ×2 (08:36→21:12)
[2016-11-10] MEDS: SODIUM CHLORIDE 0.9% FLUSH 5 ML FLUSH IVF SCH ×2 (08:36→21:12)
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
--- NOTE | 2016-11-10 08:53 | HHI.PR ---
Subjective Remarks ALERT APPETITE GOOD no SOB Objective Vital Signs Date Time Temp Pulse Resp B/P Pulse Ox O2 Delivery O2 Flow Rate FiO2 11/10/16 08:00 99.0 71 18 130/77 95 11/10/16 07:59 71 11/10/16 07:58 98 Nasal Cannula 3.00 11/10/16 07:24 94 Nasal Cannula 4.00 11/10/16 03:00 98.1 74 18 96/46 99 11/10/16 03:00 98 Nasal Cannula 3.00 11/10/16 03:00 69 11/09/16 23:02 99 Nasal Cannula 3.00 11/09/16 23:00 98.2 77 18 127/71 99 11/09/16 23:00 71 11/09/16 21:50 Nasal Cannula 4.00 11/09/16 19:00 69 11/09/16 19:00 98 Nasal Cannula 3.00 11/09/16 19:00 98.0 71 18 150/77 99 11/09/16 17:22 18 11/09/16 15:00 72 11/09/16 15:00 98.0 72 18 129/74 96 11/09/16 15:00 96 Nasal Cannula 3.00 11/09/16 12:03 99 35 11/09/16 11:00 77 11/09/16 11:00 96 Nasal Cannula 3.00 11/09/16 11:00 98.6 77 18 100/59 96 I/O 11/09/16 11/09/16 11/09/16 11/10/16 11/10/16 11/10/16 07:00 15:00 23:00 07:00 15:00 23:00 Intake Total 630 ml 1180 ml 480 ml Output Total 1255 ml 1350 ml 950 ml Balance -625 ml -170 ml -470 ml Intake Oral 630 ml 1150 ml 480 ml IV Total 0 ml 30 ml Output Urine Total 1255 ml 1350 ml 950 ml # Bowel Movements 0 2 1 Result Diagram: 11/09/16 0455 11/09/16 0455 Objective Remarks GENERAL: SKIN: Warm and dry. HEAD: Atraumatic. Normocephalic. EYES: Pupils equal and round. No scleral icterus. No injection or drainage. ENT: No nasal bleeding or discharge. Mucous membranes pink and moist. NECK: Trachea midline. No JVD. CARDIOVASCULAR: Regular rate and rhythm. RESPIRATORY: No accessory muscle use. Clear to auscultation. Breath sounds equal bilaterally. GASTROINTESTINAL: Abdomen soft, non-tender, nondistended. Hepatic and splenic margins not palpable. MUSCULOSKELETAL: Extremities without clubbing, cyanosis, or edema. No obvious deformities. NEUROLOGICAL: Awake and alert. No obvious cranial nerve deficits. Motor grossly within normal limits. Five out of 5 muscle strength in the arms and legs. Normal speech. PSYCHIATRIC: Appropriate mood and affect; insight and judgment normal. Assessment and Plan Assessment and Plan TANA MORBID OBESITY C/O SLEEP MAINTENANCE INSOMNIA CAD PLAN BIPAP WHEN SLEEPING AMBIEN 5 MG HS PRN, INCREASE ACTIVITY Rodo Koehler MD Nov 10, 2016 08:53
[2016-11-10] MEDS: SENNOSIDES 8.6 MG TAB PO SCH (21:00)
[2016-11-10] MEDS: PRAVASTATIN SOD 40 MG TAB PO SCH (21:12)
[2016-11-10] MEDS: ACETAMINOPHEN/HYDROcodone 325 MG/5 MG TAB PO PRN (22:39)
[2016-11-10] MEDS: ZOLPIDEM TARTRATE 5 MG TAB PO PRN (23:17)
[2016-11-11] VITALS (14 sets, daily range): BP systolic 117–156; BP diastolic 53–72; PULSE 64–73; RESP 14–22; TEMP 97.8–98.7; O2SAT 93–94
[2016-11-11] MEDS: CHLORHEXIDINE GLUCONATE 2 % 1 PACK (2 CLOTHS) TOP SCH (04:00)
[2016-11-11] MEDS: INSULIN NovoLIN REGULAR SUPPLEMENTAL SCALE SQ SCH ×4 (06:00→23:20)
--- NOTE | 2016-11-11 08:18 | HHI.PR ---
Subjective Remarks Follow up respiratory failure. Patient has no complaints at this time. Denies chest pain, dyspnea, nausea, vomiting, abdominal pain. Has been ambulating with a walker. Wants to go home. Objective Vitals Vital Signs Date Time Temp Pulse Resp B/P Pulse Ox O2 Delivery O2 Flow Rate FiO2 11/11/16 07:20 94 Room Air 11/11/16 07:19 73 11/11/16 07:18 98.0 73 22 117/53 94 11/11/16 07:15 94 21 11/11/16 03:00 73 11/11/16 03:00 94 Nasal Cannula 3.00 11/11/16 03:00 97.9 73 18 128/72 94 11/10/16 23:40 18 11/10/16 23:00 98 Nasal Cannula 3.00 11/10/16 23:00 83 11/10/16 23:00 98.2 83 18 133/75 99 11/10/16 21:35 Nasal Cannula 3.00 11/10/16 19:00 98.6 78 18 155/77 99 11/10/16 19:00 99 Nasal Cannula 3.00 11/10/16 19:00 78 11/10/16 15:06 98.3 68 22 123/73 97 11/10/16 15:05 68 11/10/16 15:05 97 Nasal Cannula 3.00 11/10/16 11:05 98.0 75 17 133/77 97 11/10/16 11:05 75 11/10/16 11:04 97 Nasal Cannula 3.00 I/O 11/10/16 11/10/16 11/10/16 11/11/16 11/11/16 11/11/16 07:00 15:00 23:00 07:00 15:00 23:00 Intake Total 480 ml 1100 ml 420 ml Output Total 950 ml 940 ml 950 ml Balance -470 ml 160 ml -530 ml Intake Oral 480 ml 1100 ml 420 ml Output Urine Total 950 ml 940 ml 950 ml # Bowel Movements 1 1 0 Result Diagram: 11/09/16 0455 11/09/16 0455 Imaging Last Impressions Chest X-Ray 11/07/16 0600 Signed Impressions: Service Date/Time: Monday, November 07, 2016 04:25 - CONCLUSION: 1. Cardiomegaly and findings of vascular congestion without overt failure. There has been no significant change when compared to the prior exam. Niko Mcdaniels MD CT Angiography 11/05/16 0000 Signed Impressions: Service Date/Time: Saturday, November 05, 2016 23:17 - CONCLUSION: 1. No pulmonary embolus. 2. Trace atelectasis and probable slight pulmonary edema. No large or confluent consolidation. 3. Previous CABG. Cardiac pacer/ defibrillator present. 4. A few upper limits of normal to mildly enlarged nonspecific mediastinal lymph nodes. Roshan Mckenzie MD Objective Remarks General: Morbidly obese male in no acute distress. Heart: Regular rate and rhythm. No murmur. Lungs: Clear to auscultation bilaterally. No wheezes, rales, or rhonchi. Breathing is nonlabored. Abdomen: Soft, nontender, nondistended. Extremities: No lower extremity edema. SCDs. Psych: Alert, oriented. Procedures 11/04/16 cardiac catheterization Urinary Catheter: No Vascular Central Line Catheter: No A/P Problem List: (1) Hypoxic and hypercapneic respiratory failure Status: Resolved (2) JOSE R (acute kidney injury) ICD Code: N17.9 Status: Acute (3) Ventricular tachycardia ICD Code: I47.2 Status: Resolved (4) AICD discharge ICD Code: Z45.02 Status: Acute (5) Delirium ICD Code: R41.0 Status: Resolved (6) Type 2 diabetes mellitus ICD Code: E11.9 Status: Chronic (7) Hypertension ICD Code: I10 Status: Chronic (8) Esophageal reflux ICD Code: K21.9 Status: Chronic (9) Depressed ICD Code: F32.9 Status: Acute (10) Noncompliance ICD Code: Z91.19 Status: Acute (11) Post-nasal drip ICD Code: R09.82 Status: Acute (12) Hyperlipidemia ICD Code: E78.5 Status: Chronic (13) CAD (coronary artery disease) ICD Code: I25.10 Status: Chronic (14) Neuropathy ICD Code: G62.9 Status: Chronic (15) Morbid obesity ICD Code: E66.01 Status: Chronic (16) Sleep apnea ICD Code: G47.30 Status: Chronic Assessment and Plan 1. Wide-complex tachycardia, AICD firing: Resolved. Appreciate cardiology recommendations. Continue Coreg, amiodarone. 2-D echocardiogram shows EF 50% with systolic function at the lower limits of normal. 2. Elevated troponin, CAD: Trending down. Likely secondary to AICD firing. Continue statin, beta etienne. NGUYEN inhibitor on hold secondary to acute kidney injury. The patient is status post CABG 5 vessels. Status post cardiac catheterization yesterday with balloon angioplasty. Continue aspirin, Plavix, statin. Cleared for discharge by cardiology. 3. Acute renal failure superimposed on chronic kidney disease stage III: NGUEYN inhibitor on hold. Monitor BUN and creatinine. Improving. 4. GI prophylaxis: Protonix. 5. Diabetes mellitus type 2: Continue Levemir. Monitor Accu-Cheks and cover with sliding scale insulin. 6. Anemia: Monitor H&H. 7. Morbid obesity: Counseled regarding weight loss. 8. DVT prophylaxis: SCDs, heparin. 9. CODE STATUS: Full code. 10. Gout: Continue allopurinol. Patient states that he is having a flare involving both feet, left greater than right. He takes colchicine at home for gout flares. I counseled him that we would need to be cautious with anti- inflammatories and other nephrotoxic meds because of his elevated creatinine. Continue pain medication. 11. Mild hyperkalemia: Monitor labs. Continue furosemide for diuresis. 12. Acute respiratory failure, hypercapnic and hypoxemic: Improved. Appreciate pulmonology recommendations. Discussed with Dr. Koehler. Continue supplemental oxygen as needed. Patient currently stable on room air. Continue Symbicort. DuoNeb every 6 hours. BiPAP at night. Discharge Planning Plan for discharge home with home health care tomorrow. Problem Qualifiers (1) Type 2 diabetes mellitus: Qualified Code: E11.8 - Type 2 diabetes mellitus with complication, without long-term current use of insulin (2) Hypertension: Qualified Code: I15.9 - Secondary hypertension (3) Esophageal reflux: Qualified Code: K21.9 - Gastroesophageal reflux disease, esophagitis presence not specified (4) Depressed: Qualified Code: F32.9 - Depression, unspecified depression type (5) Hyperlipidemia: Qualified Code: E78.5 - Hyperlipidemia, unspecified hyperlipidemia type (6) CAD (coronary artery disease): Qualified Code: I25.10 - Coronary artery disease involving [place] heart without angina pectoris, unspecified vessel or lesion type (7) Morbid obesity: Qualified Code: E66.01 - Morbid obesity, unspecified obesity type (8) Sleep apnea: Qualified Code: G47.30 - Sleep apnea, unspecified type Pedro Luis Saleem MD Nov 11, 2016 08:18
--- NOTE | 2016-11-11 08:19 | HHI.FF ---
Face to Face Verification Diagnosis: (1) Ventricular tachycardia (2) Hypoxic and hypercapneic respiratory failure (3) Type 2 diabetes mellitus (4) Hypertension (5) CAD (coronary artery disease) (6) Morbid obesity Physical Therapy Order: Evaluate and Treat Home Health Nursing Order: Nursing assessment with vital signs I have seen patient Eh Jackson on 11/11/16. My clinical findings support the need for the requested home health care services because: Deconditioned w/ increased weakness I certify that my clinical findings support that this patient is homebound because: Unsteady gait/balance Pedro Luis Saleem MD Nov 11, 2016 08:19
--- NOTE | 2016-11-11 08:40 | HHI.PR ---
Subjective Remarks ALERT APPETITE GOOD no SOB Objective Vital Signs Date Time Temp Pulse Resp B/P Pulse Ox O2 Delivery O2 Flow Rate FiO2 11/11/16 07:20 94 Room Air 11/11/16 07:19 73 11/11/16 07:18 98.0 73 22 117/53 94 11/11/16 07:15 94 21 11/11/16 03:00 73 11/11/16 03:00 94 Nasal Cannula 3.00 11/11/16 03:00 97.9 73 18 128/72 94 11/10/16 23:40 18 11/10/16 23:00 98 Nasal Cannula 3.00 11/10/16 23:00 83 11/10/16 23:00 98.2 83 18 133/75 99 11/10/16 21:35 Nasal Cannula 3.00 11/10/16 19:00 98.6 78 18 155/77 99 11/10/16 19:00 99 Nasal Cannula 3.00 11/10/16 19:00 78 11/10/16 15:06 98.3 68 22 123/73 97 11/10/16 15:05 68 11/10/16 15:05 97 Nasal Cannula 3.00 11/10/16 11:05 98.0 75 17 133/77 97 11/10/16 11:05 75 11/10/16 11:04 97 Nasal Cannula 3.00 I/O 11/10/16 11/10/16 11/10/16 11/11/16 11/11/16 11/11/16 07:00 15:00 23:00 07:00 15:00 23:00 Intake Total 480 ml 1100 ml 420 ml Output Total 950 ml 940 ml 950 ml Balance -470 ml 160 ml -530 ml Intake Oral 480 ml 1100 ml 420 ml Output Urine Total 950 ml 940 ml 950 ml # Bowel Movements 1 1 0 Result Diagram: 11/09/16 0455 11/09/16 0455 Objective Remarks GENERAL: SKIN: Warm and dry. HEAD: Atraumatic. Normocephalic. EYES: Pupils equal and round. No scleral icterus. No injection or drainage. ENT: No nasal bleeding or discharge. Mucous membranes pink and moist. NECK: Trachea midline. No JVD. CARDIOVASCULAR: Regular rate and rhythm. RESPIRATORY: No accessory muscle use. Clear to auscultation. Breath sounds equal bilaterally. GASTROINTESTINAL: Abdomen soft, non-tender, nondistended. Hepatic and splenic margins not palpable. MUSCULOSKELETAL: Extremities without clubbing, cyanosis, or edema. No obvious deformities. NEUROLOGICAL: Awake and alert. No obvious cranial nerve deficits. Motor grossly within normal limits. Five out of 5 muscle strength in the arms and legs. Normal speech. PSYCHIATRIC: Appropriate mood and affect; insight and judgment normal. Assessment and Plan Assessment and Plan TANA MORBID OBESITY C/O SLEEP MAINTENANCE INSOMNIA CAD PLAN BIPAP WHEN SLEEPING AMBIEN 5 MG HS PRN, INCREASE ACTIVITY Rood Koehler MD Nov 11, 2016 08:40
[2016-11-11] MEDS: INSULIN DETEMIR 100 UNITS/ML VIAL SQ SCH ×2 (09:34→21:00)
[2016-11-11] MEDS: FLUTICASONE PROPIONATE 50 MCG/ACT 16 GM NASAL SPRAY NASAL SCH ×2 (09:34→21:53)
[2016-11-11] MEDS: BUDESONIDE-FORMOTEROL 160/4.5 MCG INHALER INH SCH ×2 (09:34→21:53)
[2016-11-11] MEDS: DOCUSATE SODIUM 100 MG CAP PO SCH ×2 (09:35→21:51)
[2016-11-11] MEDS: CLOPIDOGREL 75 MG TAB PO SCH (09:35)
[2016-11-11] MEDS: GABAPENTIN 300 MG CAP PO SCH ×2 (09:35→21:51)
[2016-11-11] MEDS: ASPIRIN 325 MG TAB PO SCH (09:35)
[2016-11-11] MEDS: AMIODARONE 200 MG TAB PO SCH ×2 (09:35→21:51)
[2016-11-11] MEDS: ALLOPURINOL 100 MG TAB PO SCH (09:35)
[2016-11-11] MEDS: HEPARIN SODIUM - SQ 10,000 UNITS/ML VIAL SQ SCH ×2 (09:35→21:52)
[2016-11-11] MEDS: PANTOPRAZOLE SOD 20 MG DELAYED RELEASE TAB PO SCH ×2 (09:35→21:51)
[2016-11-11] MEDS: SODIUM CHLORIDE 0.9% FLUSH 5 ML FLUSH IVF SCH ×2 (09:35→21:53)
[2016-11-11] MEDS: CARVEDILOL 12.5 MG TAB PO SCH ×2 (09:35→21:52)
[2016-11-11] MEDS: ACETAMINOPHEN/HYDROcodone 325 MG/5 MG TAB PO PRN ×2 (17:53→23:19)
[2016-11-11] MEDS: SENNOSIDES 8.6 MG TAB PO SCH (21:51)
[2016-11-11] MEDS: PRAVASTATIN SOD 40 MG TAB PO SCH (21:52)
[2016-11-11] MEDS: ZOLPIDEM TARTRATE 5 MG TAB PO PRN (23:19)
[2016-11-12] VITALS (10 sets, daily range): BP systolic 137–143; BP diastolic 76–77; PULSE 63–77; RESP 16–20; TEMP 97.7–97.9; O2SAT 94–95
[2016-11-12] MEDS: CHLORHEXIDINE GLUCONATE 2 % 1 PACK (2 CLOTHS) TOP SCH (04:00)
[2016-11-12] MEDS: ACETAMINOPHEN/HYDROcodone 325 MG/5 MG TAB PO PRN (04:14)
[2016-11-12] MEDS: INSULIN NovoLIN REGULAR SUPPLEMENTAL SCALE SQ SCH (06:00)
[2016-11-12] MEDS ORDERED: AMIO200T PO (08:21)
[2016-11-12] MEDS ORDERED: NOVORP2 SQ (08:21)
[2016-11-12] MEDS ORDERED: LEVEMIR SQ (08:21)
[2016-11-12] MEDS ORDERED: HYDR-3516 PO (08:21)
[2016-11-12] MEDS ORDERED: NEUR300C PO (08:21)
--- NOTE | 2016-11-12 08:22 | HHI.DCPOC ---
Discharge Care Plan Diagnosis: (1) Ventricular tachycardia (2) Delirium (3) Hypoxic and hypercapneic respiratory failure (4) JOSE R (acute kidney injury) (5) Type 2 diabetes mellitus (6) Sleep apnea (7) Hypertension (8) Neuropathy (9) Hyperlipidemia (10) CAD (coronary artery disease) (11) Morbid obesity (12) AICD discharge Goals to Promote Your Health * To prevent worsening of your condition and complications * To maintain your health at the optimal level Directions to Meet Your Goals Take your medications as prescribed Follow your dietary instruction Follow activity as directed Keep your appointments as scheduled Take your immunizations and boosters as scheduled If your symptoms worsen call your PCP, if no PCP go to Urgent Care Center or Emergency Room Smoking is Dangerous to Your Health. Avoid second hand smoke Call the 24-hour hour crisis hotline for domestic abuse at Pedro Luis Saleem MD Nov 12, 2016 08:22
--- NOTE | 2016-11-12 08:25 | HHI.DS ---
cc: Hamida Ford MD Discharge Summary Admission Date Nov 01, 2016 at 23:42 Discharge Date: Nov 12, 2016 Admitting Diagnosis Ventricular tachycardia, recurrent AICD fire, h/o CAD (1) Hypoxic and hypercapneic respiratory failure Diagnosis: Principal (2) JOSE R (acute kidney injury) ICD Code: N17.9 Diagnosis: Principal (3) Ventricular tachycardia ICD Code: I47.2 Diagnosis: Principal (4) AICD discharge ICD Code: Z45.02 Diagnosis: Principal (5) Delirium ICD Code: R41.0 Diagnosis: Principal (6) Type 2 diabetes mellitus ICD Code: E11.9 Diagnosis: Secondary (7) Hypertension ICD Code: I10 Diagnosis: Secondary (8) Esophageal reflux ICD Code: K21.9 Diagnosis: Secondary (9) Depressed ICD Code: F32.9 Diagnosis: Secondary (10) Noncompliance ICD Code: Z91.19 Diagnosis: Secondary (11) Post-nasal drip ICD Code: R09.82 Diagnosis: Secondary (12) Hyperlipidemia ICD Code: E78.5 Diagnosis: Secondary (13) CAD (coronary artery disease) ICD Code: I25.10 Diagnosis: Secondary (14) Neuropathy ICD Code: G62.9 Diagnosis: Secondary (15) Morbid obesity ICD Code: E66.01 Diagnosis: Secondary (16) Sleep apnea ICD Code: G47.30 Diagnosis: Secondary Procedures 11/04/16 cardiac catheterization Brief History - From Admission 56-year-old male. Date of admission 11/02/16 past medical history includes bipolar disorder, history CVA/scheduled head, coronary artery disease status post CABG 5, pacemaker/AICD placement, asthma, dyslipidemia, diabetes hypertension and dyslipidemia. He presents to [facility] after his defibrillator has fired 13 times during the past day. And amiodarone bolus 150 mg was started followed by a drip per protocol. He was given 1 inch Nitropaste due to chest pain/hypertension T Despite the amiodarone drip, the patient continued to have persistent runs of V. tach and his AICD again fired after a run of 20 beats of V. tach. He was given a second amiodarone 150 mg IV bolus over [address] 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 Shortly after giving a lidocaine bolus the patient's episodic V. tach resolved. He was also given 2 g of mag sulfate. CBC/BMP: 11/09/16 0455 11/09/16 0455 Imaging Last Impressions Chest X-Ray 11/07/16 0600 Signed Impressions: Service Date/Time: Monday, November 07, 2016 04:25 - CONCLUSION: 1. Cardiomegaly and findings of vascular congestion without overt failure. There has been no significant change when compared to the prior exam. Niko Mcdaniels MD CT Angiography 11/05/16 0000 Signed Impressions: Service Date/Time: Saturday, November 05, 2016 23:17 - CONCLUSION: 1. No pulmonary embolus. 2. Trace atelectasis and probable slight pulmonary edema. No large or confluent consolidation. 3. Previous CABG. Cardiac pacer/ defibrillator present. 4. A few upper limits of normal to mildly enlarged nonspecific mediastinal lymph nodes. Roshan Mckenzie MD PE at Discharge General: Morbidly obese male in no acute distress. Heart: Regular rate and rhythm. No murmur. Lungs: Clear to auscultation bilaterally. No wheezes, rales, or rhonchi. Breathing is nonlabored. Abdomen: Soft, nontender, nondistended. Extremities: No lower extremity edema. SCDs. Psych: Alert, oriented. Transfer Summary 56 yo WM with PMH of Bipolar disorder, stroke, CAD with prior 5vCABG, pacer AICD , asthma, dyslipidemia, diabetes, hypertension, dyslipidemia, obesity, TANA who was admitted to [facility] 11/02/16 due to multiple episodes of defibrillator firing. He was bolused with amiodarone and started on amiodarone drip but had experienced breakthrough V. tach and was ultimately started on lidocaine. He was transitioned to hospitalist service. Troponin went up to 1.28. He had renal insufficiency so cardiac cath deferred on admission until renal function improved and then he ultimately underwent left heart catheter on 11/04/[address] Duke with POBA to SVG to OM. He has been continued on DAPT with Plavix and ASA. Critical care medicine reconsulted due to hypoxic and hypercapneic respiratory failure. Around 11 pm on 11/05 he began complaining of left sided pleuritic chest pain and cough with hemoptysis. ABG demonstrated pH 7.26/PaCO2 of 78/PO2 of 66/bicarbonate 34. He was placed on BiPAP 15 over 5. Approximately 2 hours after order for BiPAP an ABG demonstrated a pH of 7.24/PaCO2 of 83/PaO2 of 66. CTA was ordered to evaluate for PE. He had been agitated, refusing CT due to claustrophobia, taking Bipap mask off so he has been given Ativan 1.5 Mg IV x 2. CTA is negative for PE. There is trace atelectasis and slight pulmonary edema without consolidation. He is oriented to year but intermittently becomes agitated and takes BIPAP off and is combative with staff. 11/07 Patient is on Precedex drip for agitation remains on BIPAP /12 with 40% FIO2. Afebrile. Bradycardic. 11/08 Patient was on BIPAP x 4 hrs overnight now on 8L simple mask. Off Precedex drip. Awake and alert. 11/09 Patient is on 4L oxygen with good sats. Afebrile. Renal function improving with Cr: 1.59 today from 1.88 11/10: No acute events overnight, no V. tach reported over several days. Unable to tolerate BiPAP, I have reduced the pressure settings to 12/7 previously on . Hospital Course The patient was admitted for further evaluation of AICD firing. He was evaluated by cardiology. He was initially placed on amiodarone drip and lidocaine drip. Lidocaine drip was discontinued secondary to acute kidney injury. He was weaned off amiodarone drip and transitioned to oral amiodarone. He had cardiac catheterization done. He was cleared for discharge by cardiology. He developed acute respiratory distress. He was placed on BiPAP and transferred to the critical care service. Pulmonology was consulted. The patient was placed on Precedex drip for severe agitation. His respiratory status improved. Sedation was weaned. As he improved clinically, he was transferred out of the intensive care unit. He was cleared for discharge by pulmonology. He was felt to be stable for discharge home with outpatient physical therapy. Pt Condition on Discharge: Stable Discharge Disposition: Discharge Home Discharge Time: > 30 minutes Discharge Instructions DIET: Follow Instructions for: Heart Healthy Diet, Diabetic Diet Activities you can perform: Regular-No Restrictions Follow up Referrals: Cardiology - 1 Week with Wli Garay MD PCP Follow-up - 3-[address] Ford Physical Therapy Pulmonology - 1 Week with Rodo Koehler MD New Medications: Amiodarone (Amiodarone) 200 Mg Tab 200 MG PO Q12HR heart #60 Ref 0 TAB Gabapentin (Neurontin) 300 Mg Cap 600 MG PO BID neuropathy #60 Ref 0 CAP Hydrocodone-Acetaminophen (Hydrocodone-Acetaminophen) 5-325 mg Tab 1 TAB PO Q4HR PRN PAIN SCALE 1 TO 10 #20 Ref 0 TAB Insulin Detemir Inj (Levemir Inj) 1,000 unit/ 10 ML Vial 35 UNITS SQ Q12HR Blood Sugar Management #10 Ref 0 ML Insulin Human Regular Inj (Novolin R Inj) 1,000 Unit/10 Ml Vial 1 UNITS SQ ACHS Do not cover Fasting Sugar less than 200; glucose <70: 0 units; 150-199: 1 unit; 200-249: 3 units; 250-299: 5 units; 300-349: 7 units; >349: 9 units. Blood Sugar Management #10 Ref 0 ML Continued Medications: Acetaminophen ER 8 HR (Arthritis Pain ER 8 HR) 650 Mg Tab 650 MG PO DAILY 2 tabs as needed once a day PRN PAIN SCALE 6 TO 10 TAB Albuterol 18 GM Inh (Ventolin Hfa 18 GM Inh) 90 Mcg/Act Aer 2 PUFF INH Q4-6H PRN SHORTNESS OF BREATH #1 Ref 3 INHALER Allopurinol (Allopurinol) 100 Mg Tab 100 MG PO DAILY Gout #30 Ref 0 TAB Aspirin (Aspirin) 325 Mg Tab 325 MG PO DAILY #30 Ref 0 TAB Carvedilol (Carvedilol) 12.5 Mg Tab 12.5 MG PO BID #60 Ref 0 TAB Clopidogrel (Clopidogrel) 75 Mg Tab 75 MG PO DAILY Blood Clot Prevention #30 Ref 3 TAB Fluticasone Propionate (Nasal) (Eq Allergy Relief) 50 Mcg/Act Spr 1 SPRAY BID Fluticasone-Salmeterol Inh (Advair Diskus Inh) 250-50 Mcg/Blist Aer 1 PUFF INH BID Rinse mouth after use. #1 Ref 3 INHALER Omeprazole (Omeprazole) 20 Mg Tab 20 MG PO BID #60 Ref 3 TAB Sennosides (Sennosides) 8.6 Mg Tab 8.6 MG PO HS 1-2 tabs as needed once a day Constipation Ref 0 TAB Simvastatin (Zocor) 40 Mg Tab 40 MG PO HS Cholesterol Management #30 Ref 3 TAB Discontinued Medications: Albuterol 6.7 GM Inh (Proventil Hfa 6.7 GM Inh) 90 Mcg/Act Aer 2 PUFF INH Q4-6H PRN SHORTNESS OF BREATH #1 Ref 3 INHALER Diclofenac (Zorvolex) 35 Mg Cap 75 MG PO BID Pain Management Ref 0 CAP Digoxin (Lanoxin) 0.25 Mg Tab 0.25 MG PO DAILY Regulate Heart Beat #30 Ref 3 TAB Furosemide (Furosemide) 20 Mg Tab 20 MG PO DAILY #30 Ref 3 TAB Gabapentin (Gabapentin) 600 Mg Tab 600 MG PO TID #90 Ref 3 TAB Hydrocortisone (Topical) (Anti-Itch Intensive Heali) 1 % Lot 1 % EX LOT Insulin Aspart Inj (Novolog Inj) 1,000 Unit/10 Ml Vial 60 UNITS SQ QID Blood Sugar Management #10 Ref 0 ML Insulin Detemir Inj (Levemir Inj) 1,000 unit/ 10 ML Vial 100 UNITS SQ BID Do not mix with any other Insulin. Blood Sugar Management Ref 0 VIAL Lisinopril-Hctz (Lisinopril-Hctz) 20-12.5 Mg Tab 1 TAB PO DAILY Blood Pressure Management #30 Ref 3 TAB Pedro Luis Saleem MD Nov 12, 2016 08:25
[2016-11-12] MEDS: PANTOPRAZOLE SOD 20 MG DELAYED RELEASE TAB PO SCH (09:04)
[2016-11-12] MEDS: CARVEDILOL 12.5 MG TAB PO SCH (09:04)
[2016-11-12] MEDS: ALLOPURINOL 100 MG TAB PO SCH (09:04)
[2016-11-12] MEDS: GABAPENTIN 300 MG CAP PO SCH (09:04)
[2016-11-12] MEDS: DOCUSATE SODIUM 100 MG CAP PO SCH (09:04)
[2016-11-12] MEDS: ASPIRIN 325 MG TAB PO SCH (09:04)
[2016-11-12] MEDS: CLOPIDOGREL 75 MG TAB PO SCH (09:04)
[2016-11-12] MEDS: AMIODARONE 200 MG TAB PO SCH (09:04)
[2016-11-12] MEDS: BUDESONIDE-FORMOTEROL 160/4.5 MCG INHALER INH SCH (09:05)
[2016-11-12] MEDS: FLUTICASONE PROPIONATE 50 MCG/ACT 16 GM NASAL SPRAY NASAL SCH (09:05)
[2016-11-12] MEDS: INSULIN DETEMIR 100 UNITS/ML VIAL SQ SCH (09:05)
[2016-11-12] MEDS: HEPARIN SODIUM - SQ 10,000 UNITS/ML VIAL SQ SCH (09:05)
[2016-11-12] MEDS: SODIUM CHLORIDE 0.9% FLUSH 5 ML FLUSH IVF SCH (09:12)
[2016-11-24] MEDS ORDERED: GABA600T PO (15:56)
[2016-11-24] MEDS ORDERED: LISI20TA PO ×2 (15:56→16:13)
[2016-11-24] MEDS ORDERED: ASPI1TAB69 PO (15:56)
[2016-11-24] MEDS ORDERED: FURO20TA PO (15:57)
[2016-11-24] MEDS ORDERED: NAPR250T PO (15:57)
[2016-11-24] MEDS ORDERED: COLC1CAP3 PO (15:57)
[2016-11-24] MEDS ORDERED: BUME1TAB26 PO (16:09)
[2016-11-24] MEDS ORDERED: AMIO200T PO (16:13)
[2016-11-24] MEDS ORDERED: CLOP75TA PO (16:13)
[2016-11-25] MEDS ORDERED: ADVA250A INH (13:34)
[2016-11-29] MEDS ORDERED: NOVOLOGP2 SQ ×2 (11:39→11:40)
[2016-12-15] MEDS ORDERED: LEVEMIR SQ (13:25)
[2016-12-26] MEDS ORDERED: DICL75TA PO (11:14)
[2017-01-04] MEDS ORDERED: CARV12.52 PO ×2 (16:08→16:09)
[2017-01-25] MEDS ORDERED: DICL75TA PO (10:04)
[2017-01-30] MEDS ORDERED: LISI-515 PO (09:28)
[2017-01-30] MEDS ORDERED: ALLO100T PO (09:29)
[2017-01-30] MEDS ORDERED: OMEP20TA PO (09:30)
[2017-02-13] MEDS ORDERED: PAXI20TA PO (16:22)
[2017-02-21] MEDS ORDERED: BUME1TAB PO (15:19)
[2017-03-06] MEDS ORDERED: PARO20TA2 PO (11:45)
[2017-03-06] MEDS ORDERED: VENTAER INH (12:00)
[2017-03-15] MEDS ORDERED: OXYGENDME NAS.CANULA (09:53)
== END 2016-11-12 10:00 | disposition home health service (06) | DRG 250 ==
LOC: NEPE 21:46 → NEDA 23:42 → N03A 11-02 03:18 → HCPC 11-02 15:56 → HCVR 11-05 23:34 → HCIS 11-11 15:35
PROVIDERS: ADMIT Internal Medicine Critical Care Medicine; ATTEND Family Medicine
PROC: 4B02XTZ Measurement of Cardiac Defibrillator, External Approach (ICD-10-PCS; 2016-11-01)
PROC: 4A023N7 Measurement of Cardiac Sampling and Pressure, Left Heart, Percutaneous Approach (ICD-10-PCS; 2016-11-04)
PROC: B2111ZZ Fluoroscopy of Multiple Coronary Arteries using Low Osmolar Contrast (ICD-10-PCS; 2016-11-04)
PROC: B2181ZZ Fluoroscopy of Left Internal Mammary Bypass Graft using Low Osmolar Contrast (ICD-10-PCS; 2016-11-04)
PROC: B2131ZZ Fluoroscopy of Multiple Coronary Artery Bypass Grafts using Low Osmolar Contrast (ICD-10-PCS; 2016-11-04)
PROC: 02703ZZ Dilation of Coronary Artery, One Artery, Percutaneous Approach (ICD-10-PCS; principal; 2016-11-04 12:15)
PROC: 5A09457 Assistance with Respiratory Ventilation, 24-96 Consecutive Hours, Continuous Positive Airway Pressure (ICD-10-PCS; 2016-11-05)
DX: I47.2 Ventricular tachycardia (principal); J96.22 Acute and chronic respiratory failure with hypercapnia; J96.21 Acute and chronic respiratory failure with hypoxia; E87.2 Acidosis; N17.9 Acute kidney failure, unspecified; N18.3 Chronic kidney disease, stage 3 (moderate); Z68.43 Body mass index [BMI] 50.0-59.9, adult; I25.82 Chronic total occlusion of coronary artery; E66.2 Morbid (severe) obesity with alveolar hypoventilation; I25.810 Atherosclerosis of coronary artery bypass graft(s) without angina pectoris; F05 Delirium due to known physiological condition; E11.22 Type 2 diabetes mellitus with diabetic chronic kidney disease; G47.33 Obstructive sleep apnea (adult) (pediatric); I25.10 Atherosclerotic heart disease of native coronary artery without angina pectoris; I25.5 Ischemic cardiomyopathy; E78.5 Hyperlipidemia, unspecified; J45.909 Unspecified asthma, uncomplicated; M10.9 Gout, unspecified; D64.9 Anemia, unspecified; F31.9 Bipolar disorder, unspecified; J44.9 Chronic obstructive pulmonary disease, unspecified; E87.5 Hyperkalemia; K21.0 Gastro-esophageal reflux disease with esophagitis; I25.2 Old myocardial infarction; F40.240 Claustrophobia; R09.82 Postnasal drip; G47.00 Insomnia, unspecified; E11.40 Type 2 diabetes mellitus with diabetic neuropathy, unspecified; K59.00 Constipation, unspecified; D72.829 Elevated white blood cell count, unspecified; I12.9 Hypertensive chronic kidney disease with stage 1 through stage 4 chronic kidney disease, or unspecified chronic kidney disease; Z95.1 Presence of aortocoronary bypass graft; Z95.5 Presence of coronary angioplasty implant and graft; Z71.3 Dietary counseling and surveillance; Z86.73 Personal history of transient ischemic attack (TIA), and cerebral infarction without residual deficits; Z87.891 Personal history of nicotine dependence; Z95.810 Presence of automatic (implantable) cardiac defibrillator; Z91.19 Patient's noncompliance with other medical treatment and regimen; Z79.4 Long term (current) use of insulin; Z86.14 Personal history of Methicillin resistant Staphylococcus aureus infection; Z23 Encounter for immunization
CPT/HCPCS: 36600; 71010; 71275; 76937; 80048; 80053; 80162; 80171; 81001; 82140; 82550; 82552; 82805; 82948; 83605; 83735; 83880; 84100; 84443; 84484; 85025; 85027; 85610; 85730; 87641; 90732; 92937; 93005; 93306; 93454; 94003; 94150; 94640; 94664; 96365; 96372; C1725; C1769; C1884; C1887; C1893; C9399; J0282; J1120; J1630; J1644; J1940; J2001; J2060; J2250; J2405; J2720; J3010; J3475; J7030; J7040; J7050; J7060; Q9967

== ENCOUNTER → 2016-11-28 | Outpatient (CLI) | payer OTHER ==
[~2016-11-28] MED LIST changes: -ALBU6.7H INH; +ALBUAER3 INH; +AMIO200T PO; +ASPI1TAB69 PO; +BUME1TAB PO; +BUME1TAB26 PO; +CEPH-460 PO; +CLIN1CAP6 PO; +COLC1CAP3 PO; -CONTOUR1 TOP; -DICL1CAP4 PO; +DICL75TA PO; +GABA100C4 PO; +GABA300C5 PO; +HYDR-3516 PO; -HYDR1LOT6 EX; -LANO0.2510 PO; +LISI-515 PO; +NAPR250T PO; +NOVORP2 SQ; +OXYGENDME NAS.CANULA; +PARO20TA2 PO; +PAXI20TA PO; +SYMB160A INH; -insulin syringes SQ
[2016-11-28 11:10] LABS: BICARBONATE 36.7 MEQ/L (21.0-32.0); POTASSIUM 5.1 MEQ/L (3.5-5.1)
== END ==
LOC: CLAB 10:16
PROVIDERS: ATTEND Family Medicine
DX: N17.9 Acute kidney failure, unspecified (principal)
CPT/HCPCS: 36415; 80048

== ENCOUNTER 2017-01-19 19:05 | Observation (INO) | payer OTHER ==
[~2017-01-19] VITALS: Ht 165.1 cm; Wt 171.6 kg
[~2017-01-19 19:05] MED LIST changes: -ALBUAER3 INH; -ASPI325T PO; -BUME1TAB PO; -CEPH-460 PO; -CLIN1CAP6 PO; -GABA100C4 PO; -GABA300C5 PO; -LISI-515 PO; -OXYGENDME NAS.CANULA; -PARO20TA2 PO; -PAXI20TA PO; -SYMB160A INH
[2017-01-19 19:08] VITALS: BP 176/81; PULSE 87; RESP 18; TEMP 99.2; O2SAT 91
[2017-01-20] VITALS (10 sets, daily range): BP systolic 102–172; BP diastolic 52–78; PULSE 60–89; RESP 16–22; TEMP 97.8–98.1; O2SAT 93–99
[2017-01-20] MEDS ORDERED: LEVEMIR SQ (00:02)
[2017-01-20] MEDS ORDERED: NOVOLOGP2 SQ (00:04)
[2017-01-20] MEDS ORDERED: SODIUM CHLORIDE 0.9% FLUSH 10 ML FLUSH IVF PRN (00:45)
[2017-01-20] MEDS ORDERED: CLINDAMYCIN INJ 600 MG in SODIUM CHLORIDE 0.9% INJ 100 ML IV ONE (00:45)
[2017-01-20] MEDS ORDERED: ASPIRIN 325 MG TAB PO ONE (00:45)
--- NOTE | 2017-01-20 00:54 | PD ---
HPI Chief Complaint: Edema Time Seen by Provider: 00:12 Travel History International Travel<30 days: No Contact w/Intl Traveler<30days: No Traveled to known affect area: No History of Present Illness HPI 56yo M with PMH of morbid obesity, CAD s/p AICD, IDDM presents to the ED with c/ o left lower extremity edema. States he has chronic ulcer for 1 year but pain has gotten worst. States he constantly hits his legs and the ulcer opened up again. Pt also with midsternal chest pain. He states it does not feel like his heart attacks but currently with chest pain that is worst with movement and nonradiating. Denies any fever, cough, sob, n/v, abdominal pain, focal weakness or numbness. PFSH Past Medical History Hx Anticoagulant Therapy: Yes (PLAVIX) Arthritis: Yes Asthma: Yes Autoimmune Disease: No Blood Disorders: No Anxiety: Yes Depression: Yes Heart Rhythm Problems: Yes Cancer: No Cardiac Catheterization: Yes Cardiovascular Problems: Yes (DEFIB/OPEN HEART SX/ [place]) High Cholesterol: Yes Chemotherapy: No Chest Pain: Yes Congestive Heart Failure: No COPD: Yes Cerebrovascular Accident: Yes Diabetes: Yes (TYPE2) Patient Takes Glucophage: No Diminished Hearing: No Endocrine: Yes Gastrointestinal Disorders: Yes GERD: Yes Glaucoma: No Genitourinary: No Headaches: No Hepatitis: No Hiatal Hernia: No Hypertension: Yes Immune Disorder: No Implanted Vascular Access Dvce: Yes Kidney Stones: No Musculoskeletal: Yes Neurologic: No Psychiatric: Yes (BIPOLAR) Reproductive: No Respiratory: Yes (COPD) Integumentary: Yes (HX OF MRSA/STAPH) Migraines: No Myocardial Infarction: Yes Radiation Therapy: No Renal Failure: No Seizures: No Sickle Cell Disease: No Sleep Apnea: Yes Thyroid Disease: No Ulcer: No PNEUMOCCOCAL Vaccine (Year): 2 Past Surgical History Abdominal Surgery: No AICD: Yes Appendectomy: No Arteriovenous Shunt: No Body Medical Devices: PACEMAKER/defib Cardiac Surgery: Yes (CORONY STENT10/02, AICD) Cholecystectomy: No Coronary Artery Bypass Graft: Yes (X5) Coronary Stent: Yes (10/02) Ear Surgery: No Endocrine Surgery: No Eye Surgery: Yes (RIGHT EYES PROSTHESIS) Genitourinary Surgery: No Gynecologic Surgery: No Insulin Pump: No Joint Replacement: Yes (RIGHT ANKLE ) Oral Surgery: No Pacemaker: Yes Thoracic Surgery: No Other Surgery: Yes (AICD) Family History Family Myocardial Infarction: Yes Social History Alcohol Use: No Tobacco Use: No Substance Use: No (quit 2003 hx cocaine) Allergies-Medications (Allergen,Severity, Reaction): Coded Allergies: Morphine (Verified Allergy, Severe, 01/19/17) GI MRI PRECAUTION (Verified Adverse Reaction, Severe, PACEMAKER (JLT), BULLET FRAGMENTS IN SINUS CAVITY, 01/19/17) Reported Meds & Prescriptions Reported Meds & Active Scripts Active Carvedilol 12.5 Mg Tab 12.5 Mg PO BID Novolog Inj (Insulin Aspart) 1,000 Unit/10 Ml Vial 60 Units SQ TID Advair Diskus Inh (Fluticasone-Salmeterol Inh) 250-50 Mcg/Blist Aer 1 Puff INH BID Rinse mouth after use. Lisinopril-Hctz 20-12.5 Mg Tab 1 Tab PO DAILY Amiodarone (Amiodarone HCl) 200 Mg Tab 200 Mg PO Q12HR Clopidogrel (Clopidogrel Bisulfate) 75 Mg Tab 75 Mg PO DAILY Bumex (Bumetanide) 1 Mg Tab 1 Mg PO DAILY Hydrocodone-Acetaminophen 5-325 mg Tab 1 Tab PO Q4HR PRN Zocor (Simvastatin) 40 Mg Tab 40 Mg PO HS Omeprazole 20 Mg Tab 20 Mg PO BID Ventolin Hfa 18 GM Inh (Albuterol Sulfate) 90 Mcg/Act Aer 2 Puff INH Q4-6H PRN Reported Novolog Inj (Insulin Aspart) 1,000 Unit/10 Ml Vial 60 Units SQ TID Levemir Inj (Insulin Detemir) 1,000 unit/ 10 ML Vial 50 Units SQ BID Do not mix with any other Insulin. Diclofenac Sodium DR (Diclofenac Sodium) 75 Mg Tabdr 75 Mg PO BID Naproxen 250 Mg Tab 220 Mg PO BID Colchicine 0.6 Mg Cap 0.6 Mg PO DAILY Aspirin 81 Mg Tabdr 81 Mg PO DAILY Gabapentin 600 Mg Tab 600 Mg PO TID Sennosides 8.6 Mg Tab 8.6 Mg PO HS 1-2 tabs as needed once a day Eq Allergy Relief (Fluticasone Propionate (Nasal)) 50 Mcg/Act Spr 1 [place] BID Allopurinol 100 Mg Tab 100 Mg PO DAILY Review of Systems Except as stated in HPI: all other systems reviewed are Neg Physical Exam Narrative GENERAL: 56yo M not in distress. SKIN: Focused skin assessment warm/dry. HEAD: Atraumatic. Normocephalic. EYES: Pupils equal and round. No scleral icterus. No injection or drainage. ENT: No nasal bleeding or discharge. Mucous membranes pink and moist. NECK: Trachea midline. No JVD. CARDIOVASCULAR: Regular rate and rhythm. No murmur appreciated. RESPIRATORY: No accessory muscle use. Clear to auscultation. Breath sounds equal bilaterally. GASTROINTESTINAL: Abdomen soft, non-tender, nondistended. MUSCULOSKELETAL: No obvious deformities. No clubbing. No cyanosis. +Bilateral lower ext edema but left tib/fib has mild erythema surrounding 3cm by 2cm ulcer that has clear drainage. NEUROLOGICAL: Awake and alert. No obvious cranial nerve deficits. Motor grossly within normal limits. Normal speech. PSYCHIATRIC: Appropriate mood and affect; insight and judgment normal. Data Data Last Documented VS Vital Signs Date Time Temp Pulse Resp B/P Pulse Ox O2 Delivery O2 Flow Rate FiO2 01/20/17 02:00 89 20 172/78 97 Nasal Cannula 2 01/19/17 19:08 99.2 Orders Electrocardiogram (01/20/17 00:35) Basic Metabolic Panel (Bmp) (01/20/17 00:35) Ckmb (Isoenzyme) Profile (01/20/17 00:35) Complete Blood Count With Diff (01/20/17 00:35) Magnesium (Mg) (01/20/17 00:35) Prothrombin Time / Inr (Pt) (01/20/17 00:35) Act Partial Throm Time (Ptt) (01/20/17 00:35) Troponin I (01/20/17 00:35) Chest, Single Ap (01/20/17 00:35) Ecg Monitoring (01/20/17 00:35) Bilateral Bp Monitoring (01/20/17 00:35) Iv Access Insert/Monitor (01/20/17 00:35) Oximetry (01/20/17 00:35) Oxygen Administration (01/20/17 00:35) Aspirin (Aspirin) (01/20/17 00:45) Sodium Chloride 0.9% Flush (Ns Flush) (01/20/17 00:45) Blood Culture (01/20/17 00:35) Lactic Acid Sepsis Protocol (01/20/17 00:35) Clindamycin Inj (Cleocin Inj) (01/20/17 00:45) Tibia/Fibula (Ap/Lat) (01/20/17 ) [place] Sedimentation Rate (01/20/17 00:46) C-Reactive Protein (Crp) (01/20/17 00:46) CKMB (01/20/17 00:45) CKMB% (01/20/17 00:45) Hydromorphone Pf Inj (Dilaudid Pf Inj) (01/20/17 02:15) Admit Order (Ed Use Only) (01/20/17 02:08) Labs Laboratory Tests Test 01/20/17 00:45 White Blood Count 8.3 TH/MM3 Red Blood Count 4.75 MIL/MM3 Hemoglobin 11.7 GM/DL Hematocrit 38.5 % Mean Corpuscular Volume 80.9 FL Mean Corpuscular Hemoglobin 24.6 PG Mean Corpuscular Hemoglobin 30.4 % Concent Red Cell Distribution Width 16.7 % Platelet Count 183 TH/MM3 Mean Platelet Volume 8.9 FL Neutrophils (%) (Auto) 64.8 % Lymphocytes (%) (Auto) 22.3 % Monocytes (%) (Auto) 8.0 % Eosinophils (%) (Auto) 4.0 % Basophils (%) (Auto) 0.9 % Neutrophils # (Auto) 5.4 TH/MM3 Lymphocytes # (Auto) 1.9 TH/MM3 Monocytes # (Auto) 0.7 TH/MM3 Eosinophils # (Auto) 0.3 TH/MM3 Basophils # (Auto) 0.1 TH/MM3 CBC Comment AUTO DIFF Differential Comment AUTO DIFF CONFIRMED Ovalocytes 1+ Stomatocytes 1+ Erythrocyte Sedimentation Rate 23 mm/hr Prothrombin Time 11.2 SEC Prothromb Time International 1.0 RATIO Ratio Activated Partial 26.7 SEC Thromboplast Time Sodium Level 140 MEQ/L Potassium Level 4.9 MEQ/L Chloride Level 101 MEQ/L Carbon Dioxide Level 34.5 MEQ/L Anion Gap 5 MEQ/L Blood Urea Nitrogen 46 MG/DL Creatinine 2.13 MG/DL Estimat Glomerular Filtration 33 ML/MIN Rate Random Glucose 134 MG/DL Lactic Acid Level 0.6 mmol/L Calcium Level 8.2 MG/DL Magnesium Level 2.3 MG/DL Total Creatine Kinase 236 U/L Creatine Kinase MB 1.8 NG/ML Troponin I 0.04 NG/ML C-Reactive Protein 2.26 MG/DL MDM Medical Decision Making Medical Screen Exam Complete: Yes Emergency Medical Condition: Yes Interpretation(s) EKG: NSR 74bpm. Normal axis. R prime v6. Differential Diagnosis diabetic ulcer vs. cellulitis vs. Fracture vs. chronic venous ulcer vs. osteomyelitis ACS vs. musculoskeletal pain Narrative Course 56yo M with left leg pain and nonhealing ulcer. Labs reviewed, no leukocytosis but elevated ESR and C-reactive protein. US showed no DVT. Xray showed edema. Still concern for possible osteomyelitis. Will consult ortho. Pt also with chest pain. Chest xray right showed cardiomegaly. Troponin 0.04. Although his chest pain sounds atypical, he has significant cardiac risk factors and states his is actively having chest pain. Pt given aspirin and dilaudid. Discussed with Dr. Meyer and accepted to her service. Diagnosis Primary Impression: Chest pain Qualified Code: R07.9 - Chest pain, unspecified type Additional Impression: Cellulitis Qualified Code: L03.116 - Cellulitis of left lower extremity Admitting Information Admitting Physician Requests: Marilynn Rice DO Jan 20, 2017 00:54
[2017-01-20 00:56] LABS: AUTOMATED NEUTROPHIL # 5.4 TH/MM3 (1.8-7.7); BASOPHIL # 0.1 TH/MM3 (0-0.2); BASOPHIL % 0.9 % (0.0-2.0); EOSINOPHIL # 0.3 TH/MM3 (0-0.4); HEMATOCRIT 38.5 % (39.0-51.0); LYMPH % 22.3 % (9.0-44.0); LYMPHOCYTE # 1.9 TH/MM3 (1.0-4.8); MEAN CELL VOLUME 80.9 FL (80.0-100.0); MEAN CORPUSCULAR HEMOGLOBIN 24.6 PG (27.0-34.0); MEAN CORPUSCULAR HGB CONC 30.4 % (32.0-36.0); NEUT % 64.8 % (16.0-70.0); PLATELET COUNT 183 TH/MM3 (150-450); RED BLOOD COUNT 4.75 MIL/MM3 (4.50-5.90); RED CELL DISTRIBUTION WIDTH 16.7 % (11.6-17.2); WHITE BLOOD COUNT 8.3 TH/MM3 (4.0-11.0)
[2017-01-20 00:57] LABS: HEMO FLAGS AUTO DIFF
[2017-01-20 01:05] LABS: APTT (PATIENT) 26.7 SEC (24.3-30.1); PROTHROMBIN TIME - PATIENT 11.2 SEC (9.8-11.6)
[2017-01-20 01:16] LABS: CREATINE KINASE 236 U/L (39-308)
[2017-01-20 01:19] LABS: ANION GAP 5 MEQ/L (5-15); BICARBONATE 34.5 MEQ/L (21.0-32.0); BLOOD UREA NITROGEN 46 MG/DL (7-18); CHLORIDE 101 MEQ/L (98-107); GLOMERULAR FILTRATION RATE 33 ML/MIN (>89); MAGNESIUM 2.3 MG/DL (1.5-2.5); POTASSIUM 4.9 MEQ/L (3.5-5.1); SODIUM (NA) 140 MEQ/L (136-145)
[2017-01-20 01:28] LABS: CKMB 1.8 NG/ML (0.5-3.6)
[2017-01-20 01:35] LABS: OVALOCYTES 1+ (NORMAL); SCAN/DIFF AUTO DIFF CONFIRMED; STOMATOCYTES 1+ (NORMAL)
--- NOTE | 2017-01-20 01:35 | RADRPT ---
EXAM DATE/TIME: 01/20/2017 00:55 [facility] COMPARISON: CHEST SINGLE AP, November 07, 2016, 4:25. INDICATIONS : Shortness of breath. MEDICAL HISTORY : Chronic obstructive pulmonary disease. SURGICAL HISTORY : CABG. Pacemaker. ENCOUNTER: Initial ACUITY: 1 day PAIN SCORE: 0/10 LOCATION: Bilateral chest FINDINGS: No infiltrate, effusion or pneumothorax demonstrated. Mild cardiomegaly again noted. Patient has had previous median sternotomy and CABG. Cardiac pacer/Dif or bladder again noted. CONCLUSION: No acute cardiopulmonary disease demonstrated. Mild compensated cardiomegaly unchanged. Roshan Mckenzie MD on January 20, 2017 at 1:33 Board Certified Radiologist. This report was verified electronically.
--- NOTE | 2017-01-20 01:41 | RADRPT ---
EXAM DATE/TIME: 01/20/2017 01:05 [facility] COMPARISON: No previous studies available for comparison. INDICATIONS : Left lower leg pain and inflammation. MEDICAL HISTORY : Chronic obstructive pulmonary disease. SURGICAL HISTORY : CABG. Pacemaker. ENCOUNTER: Initial ACUITY: 1 week PAIN SCORE: 4/10 LOCATION: Left Tib/Fib FINDINGS: The diffuse and fairly severe subcutaneous edema noted. Patient appears to have had previous saphenou s vein harvest. Other than surgical clips in don't see a radiopaque foreign body. There is no acute fracture of the left tibia or fibula. No evidence of bone destruction. There is chr onic fragmentation of the tibial tuberosity, probably the sequela of old [place]. Radiograph ically I don't sense that the patellar tendon is acutely thickened. CONCLUSION: Severe, diffuse subcutaneous edema. No acute bony abnormality. Previous saphenous vein harvest. Roshan Mckenzie MD on January 20, 2017 at 1:38 Board Certified Radiologist. This report was verified electronically.
[2017-01-20] MEDS ORDERED: NALOXONE HCL 0.4 MG/ML AMP IV PRN (02:15)
[2017-01-20] MEDS ORDERED: HYDROmorphone HCL PF 1 MG/ML VIAL IV PUSH ONE (02:15)
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
--- NOTE | 2017-01-20 06:10 | RADRPT ---
EXAM DATE/TIME: 01/20/2017 05:35 [facility] COMPARISON: No previous studies available for comparison. INDICATIONS : Bilateral leg swelling. MEDICAL HISTORY : Myocardial infarction. Hypercholesterolemia. Chronic obstructive pulmonary disease. Cerebrovascular a ccident. Anticoagulant therapy, Plavix. Hypertension. Asthma. Sleep apnea. Gastroesophageal reflux di sease. Arthritis. Diabetes. Bipolar disorder. Blood tranfusion. MRSA. Substance abuse. SURGICAL HISTORY : CABGCoronary artery stent. Pacemaker.Right ankle surgery. Right eye prosthesis. ENCOUNTER: Initial ACUITY: 1 month PAIN SCORE: 3/10 LOCATION: Bilateral legs. TECHNIQUE: Venous ultrasound of the left and right leg was performed from the inguinal ligament to the proximal calf. Real-time, color Doppler and spectral tracing, compression and augmentation techniques were us ed. FINDINGS: RIGHT LEG: There is normal compressibility of the deep venous system from the inguinal region to the proximal ca lf. No echogenic clot is seen in the lumen of the common femoral, femoral, popliteal, and posterior tibial veins. There is a normal response of the venous system to proximal and distal augmentation an d respiration. LEFT LEG: There is normal compressibility of the deep venous system from the inguinal region to the proximal ca lf. No echogenic clot is seen in the lumen of the common femoral, femoral, popliteal, and posterior tibial veins. There is a normal response of the venous system to proximal and distal augmentation an d respiration. Bilateral lower extremity subcutaneous edema noted. No organized fluid seen. CONCLUSION: No DVT of either lower extremity. Roshan Mckenzie MD on January 20, 2017 at 6:08 Board Certified Radiologist. This report was verified electronically.
[2017-01-20] MEDS: PIPERACIL-TAZO 4.5 GM PREMIX 100 ML IV SCH ×2 (06:30→11:59)
[2017-01-20] MEDS ORDERED: ALBUTEROL SULFATE 90 MCG/ACT HFA 8 GM INHALER INH PRN (06:30)
[2017-01-20] MEDS ORDERED: DEXTROSE 50% IN WATER 50 ML VIAL(D50) IV PUSH PRN (07:00)
[2017-01-20] MEDS ORDERED: GLUCAGON 1 MG/ML VIAL OTHER PRN (07:00)
[2017-01-20] MEDS: INSULIN ASPART SUPPLEMENTAL SCALE SQ SCH ×4 (07:34→21:00)
--- NOTE | 2017-01-20 07:40 | EKG ---
Date Performed: 01/20/2017 Time Performed: 06:52:09 PTAGE: 56 years EKG: SINUS BRADYCARDIA Cannot rule out ANTERIOR MYOCARDIAL INFARCTION ABNORMAL ECG NO SIGNIFICAN T CHANGE FROM PRIOR ELECTROCARDIOGRAM. PREVIOUS TRACING : 11/06/2016 02.59 DOCTOR: Rigo Gore Interpretating Date/Time 01/20/2017 07:39:43
--- NOTE | 2017-01-20 07:42 | EKG ---
Date Performed: 01/20/2017 Time Performed: 01:13:24 PTAGE: 56 years EKG: Sinus rhythm POSSIBLE ANTERIOR MYOCARDIAL INFARCTION ABNORMAL ECG NO PREVIOUS TRACING DOCTOR: Rigo Gore Interpretating Date/Time 01/20/2017 07:41:49
[2017-01-20] MEDS ORDERED: DICLOFENAC SODIUM 75 MG DELAYED RELEASE TAB PO SCH (09:00)
[2017-01-20] MEDS: CARVEDILOL 12.5 MG TAB PO SCH ×2 (09:34→22:50)
[2017-01-20] MEDS: AMIODARONE 200 MG TAB PO SCH ×2 (09:34→22:49)
[2017-01-20] MEDS: INSULIN DETEMIR 100 UNITS/ML VIAL SQ SCH ×2 (09:34→22:50)
[2017-01-20] MEDS: ASPIRIN EC 81 MG TABEC PO SCH (09:34)
[2017-01-20] MEDS: PANTOPRAZOLE SOD 20 MG DELAYED RELEASE TAB PO SCH ×2 (09:34→22:49)
[2017-01-20] MEDS: CLOPIDOGREL 75 MG TAB PO SCH (09:34)
[2017-01-20] MEDS: BUDESONIDE-FORMOTEROL 160/4.5 MCG INHALER INH SCH ×2 (10:44→22:49)
[2017-01-20] MEDS: ALLOPURINOL 100 MG TAB PO SCH (10:44)
[2017-01-20] MEDS: CLINDAMYCIN INJ 600 MG in SODIUM CHLORIDE 0.9% INJ 100 ML IV SCH ×2 (10:46→18:05)
[2017-01-20] MEDS: SODIUM CHLORIDE 0.9% FLUSH 10 ML FLUSH IV FLUSH PRN (11:58)
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
[2017-01-20] MEDS: HEPARIN SODIUM - SQ 10,000 UNITS/ML VIAL SQ SCH ×2 (15:57→22:49)
[2017-01-20] MEDS: SODIUM CHLORIDE 0.9% FLUSH 10 ML FLUSH IV FLUSH SCH ×2 (16:12→22:49)
[2017-01-20] MEDS: HYDROmorphone HCL PF 1 MG/ML VIAL IV PUSH PRN (16:13)
[2017-01-20] MEDS: PIPERACIL-TAZO 3.375 GM PREMIX 50 ML IV SCH ×2 (16:50→22:59)
[2017-01-20 21:01] LABS: MEAN CORPUSCULAR HGB CONC 29.8 % (32.0-36.0)
[2017-01-20] MEDS: SENNOSIDES 8.6 MG TAB PO SCH (22:50)
[2017-01-20] MEDS: PRAVASTATIN SOD 40 MG TAB PO SCH (22:50)
[2017-01-21] VITALS (7 sets, daily range): BP systolic 123–174; BP diastolic 72–77; PULSE 59–70; RESP 18–20; TEMP 97.6–98.8; O2SAT 90–96
[2017-01-21] MEDS: SODIUM CHLORIDE 0.9% FLUSH 10 ML FLUSH IV FLUSH PRN ×3 (02:30→06:07)
[2017-01-21] MEDS: CLINDAMYCIN INJ 600 MG in SODIUM CHLORIDE 0.9% INJ 100 ML IV SCH ×3 (02:30→22:13)
[2017-01-21] MEDS: HYDROmorphone HCL PF 1 MG/ML VIAL IV PUSH PRN (03:10)
[2017-01-21] MEDS: HEPARIN SODIUM - SQ 10,000 UNITS/ML VIAL SQ SCH ×3 (06:07→22:12)
[2017-01-21] MEDS: PIPERACIL-TAZO 3.375 GM PREMIX 50 ML IV SCH ×2 (06:07→12:32)
[2017-01-21] MEDS: INSULIN ASPART SUPPLEMENTAL SCALE SQ SCH ×4 (06:07→22:13)
[2017-01-21] MEDS: ACETAMINOPHEN/HYDROcodone 325 MG/5 MG TAB PO PRN ×3 (06:15→21:27)
[2017-01-21 06:58] LABS: AUTOMATED NEUTROPHIL # 4.7 TH/MM3 (1.8-7.7); BASOPHIL # 0.1 TH/MM3 (0-0.2); BASOPHIL % 1.2 % (0.0-2.0); EOSINOPHIL # 0.3 TH/MM3 (0-0.4); EOSINOPHIL % 4.8 % (0.0-4.0); LYMPH % 17.4 % (9.0-44.0); LYMPHOCYTE # 1.2 TH/MM3 (1.0-4.8); MEAN CELL VOLUME 81.8 FL (80.0-100.0); MEAN CORPUSCULAR HEMOGLOBIN 24.4 PG (27.0-34.0); MONO % 10.1 % (0.0-8.0); NEUT % 66.5 % (16.0-70.0); PLATELET COUNT 172 TH/MM3 (150-450); RED BLOOD COUNT 5.13 MIL/MM3 (4.50-5.90); RED CELL DISTRIBUTION WIDTH 17.4 % (11.6-17.2); WHITE BLOOD COUNT 7.1 TH/MM3 (4.0-11.0)
[2017-01-21 06:59] LABS: BICARBONATE 30.2 MEQ/L (21.0-32.0)
[2017-01-21 07:39] LABS: HEMO FLAGS AUTO DIFF
[2017-01-21] MEDS: BUDESONIDE-FORMOTEROL 160/4.5 MCG INHALER INH SCH ×2 (09:47→22:12)
[2017-01-21] MEDS: CLOPIDOGREL 75 MG TAB PO SCH (09:47)
[2017-01-21] MEDS: PANTOPRAZOLE SOD 20 MG DELAYED RELEASE TAB PO SCH ×2 (09:47→22:12)
[2017-01-21] MEDS: ASPIRIN EC 81 MG TABEC PO SCH (09:48)
[2017-01-21] MEDS: CARVEDILOL 12.5 MG TAB PO SCH ×2 (09:48→22:12)
[2017-01-21] MEDS: AMIODARONE 200 MG TAB PO SCH ×2 (09:48→22:12)
[2017-01-21] MEDS: ALLOPURINOL 100 MG TAB PO SCH (09:48)
[2017-01-21] MEDS: SODIUM CHLORIDE 0.9% FLUSH 10 ML FLUSH IV FLUSH SCH ×2 (09:49→22:12)
[2017-01-21] MEDS: INSULIN DETEMIR 100 UNITS/ML VIAL SQ SCH ×2 (09:49→22:13)
[2017-01-21 11:17] LABS: SCAN/DIFF AUTO DIFF CONFIRMED
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
[2017-01-21] MEDS: ONDANSETRON HCL 4 MG/2 ML VIAL IV PUSH PRN (16:59)
--- NOTE | 2017-01-21 19:29 | EKG ---
Date Performed: 01/20/2017 Time Performed: 12:50:50 PTAGE: 56 years EKG: Sinus rhythm ABNORMAL R WAVE PROGRESSION ABNORMAL ECG PREVIOUS TRACING : 01/20/2017 06.52 Compared to prior tracing no significant change DOCTOR: Evelyne Lr Interpretating Date/Time 01/21/2017 19:29:16
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
[2017-01-21] MEDS: ceFAZolin 2 GM PREMIX 50 ML IV SCH (22:00)
[2017-01-21] MEDS: SENNOSIDES 8.6 MG TAB PO SCH (22:12)
[2017-01-21] MEDS: PRAVASTATIN SOD 40 MG TAB PO SCH (22:12)
[2017-01-22] VITALS (9 sets, daily range): BP systolic 117–166; BP diastolic 55–87; PULSE 67–76; RESP 18–20; TEMP 97.8–99; O2SAT 90–96
[2017-01-22] MEDS: CLINDAMYCIN INJ 600 MG in SODIUM CHLORIDE 0.9% INJ 100 ML IV SCH ×3 (03:53→18:07)
[2017-01-22] MEDS: HEPARIN SODIUM - SQ 10,000 UNITS/ML VIAL SQ SCH ×3 (05:02→22:38)
[2017-01-22] MEDS: ceFAZolin 2 GM PREMIX 50 ML IV SCH ×3 (05:03→22:00)
[2017-01-22] MEDS: INSULIN ASPART SUPPLEMENTAL SCALE SQ SCH ×4 (06:00→22:38)
[2017-01-22 07:10] LABS: BICARBONATE 34.7 MEQ/L (21.0-32.0)
[2017-01-22 07:15] LABS: POTASSIUM 4.7 MEQ/L (3.5-5.1)
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
[2017-01-22] MEDS: ASPIRIN EC 81 MG TABEC PO SCH (09:56)
[2017-01-22] MEDS: CLOPIDOGREL 75 MG TAB PO SCH (09:56)
[2017-01-22] MEDS: PANTOPRAZOLE SOD 20 MG DELAYED RELEASE TAB PO SCH ×2 (09:56→22:37)
[2017-01-22] MEDS: CARVEDILOL 12.5 MG TAB PO SCH ×2 (09:56→21:00)
[2017-01-22] MEDS: BUMETANIDE 1 MG TAB PO SCH (09:56)
[2017-01-22] MEDS: GABAPENTIN 100 MG CAP PO SCH ×3 (09:56→18:07)
[2017-01-22] MEDS: ALLOPURINOL 100 MG TAB PO SCH (09:56)
[2017-01-22] MEDS: AMIODARONE 200 MG TAB PO SCH ×2 (09:56→22:37)
[2017-01-22] MEDS: SODIUM CHLORIDE 0.9% FLUSH 10 ML FLUSH IV FLUSH SCH ×2 (09:57→22:37)
[2017-01-22] MEDS: INSULIN DETEMIR 100 UNITS/ML VIAL SQ SCH ×2 (09:57→22:37)
[2017-01-22] MEDS: BUDESONIDE-FORMOTEROL 160/4.5 MCG INHALER INH SCH ×2 (09:58→22:37)
[2017-01-22] MEDS: ONDANSETRON HCL 4 MG/2 ML VIAL IV PUSH PRN ×2 (10:40→22:56)
[2017-01-22] MEDS: ACETAMINOPHEN/HYDROcodone 325 MG/5 MG TAB PO PRN ×3 (10:40→22:56)
[2017-01-22] MEDS: PRAVASTATIN SOD 40 MG TAB PO SCH (22:36)
[2017-01-22] MEDS: SENNOSIDES 8.6 MG TAB PO SCH (22:37)
[2017-01-23] VITALS (7 sets, daily range): BP systolic 131–139; BP diastolic 62–72; PULSE 64–79; RESP 20–21; TEMP 97.6–98.6; O2SAT 91–95
[2017-01-23] MEDS: ACETAMINOPHEN/HYDROcodone 325 MG/5 MG TAB PO PRN ×2 (03:20→14:07)
[2017-01-23] MEDS: CLINDAMYCIN INJ 600 MG in SODIUM CHLORIDE 0.9% INJ 100 ML IV SCH ×3 (03:20→18:00)
[2017-01-23] MEDS: ceFAZolin 2 GM PREMIX 50 ML IV SCH ×2 (05:41→14:00)
[2017-01-23] MEDS: HEPARIN SODIUM - SQ 10,000 UNITS/ML VIAL SQ SCH ×2 (05:42→14:00)
[2017-01-23] MEDS: INSULIN ASPART SUPPLEMENTAL SCALE SQ SCH ×3 (06:23→16:45)
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
[2017-01-23] MEDS: PANTOPRAZOLE SOD 20 MG DELAYED RELEASE TAB PO SCH (08:24)
[2017-01-23] MEDS: ALLOPURINOL 100 MG TAB PO SCH (08:24)
[2017-01-23] MEDS: BUMETANIDE 1 MG TAB PO SCH (08:24)
[2017-01-23] MEDS: ASPIRIN EC 81 MG TABEC PO SCH (08:24)
[2017-01-23] MEDS: GABAPENTIN 100 MG CAP PO SCH ×3 (08:24→18:41)
[2017-01-23] MEDS: AMIODARONE 200 MG TAB PO SCH (08:24)
[2017-01-23] MEDS: CLOPIDOGREL 75 MG TAB PO SCH (08:24)
[2017-01-23] MEDS: CARVEDILOL 12.5 MG TAB PO SCH (08:24)
[2017-01-23] MEDS: SODIUM CHLORIDE 0.9% FLUSH 10 ML FLUSH IV FLUSH SCH (08:25)
[2017-01-23] MEDS: BUDESONIDE-FORMOTEROL 160/4.5 MCG INHALER INH SCH (08:25)
[2017-01-23] MEDS: INSULIN DETEMIR 100 UNITS/ML VIAL SQ SCH (08:25)
[2017-01-23] MEDS ORDERED: ADVA250A INH (10:51)
[2017-01-23] MEDS ORDERED: CLIN1CAP6 PO (17:15)
[2017-01-23] MEDS ORDERED: CEPH-460 PO (17:15)
[2017-01-23] MEDS ORDERED: GABA100C4 PO (17:18)
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
[2017-01-25] MEDS ORDERED: DICL75TA PO (10:04)
[2017-01-30] MEDS ORDERED: LISI-515 PO (09:28)
[2017-01-30] MEDS ORDERED: ALLO100T PO (09:29)
[2017-01-30] MEDS ORDERED: OMEP20TA PO (09:30)
[2017-02-13] MEDS ORDERED: PAXI20TA PO (16:22)
[2017-02-21] MEDS ORDERED: BUME1TAB PO (15:19)
[2017-03-06] MEDS ORDERED: PARO20TA2 PO (11:45)
[2017-03-06] MEDS ORDERED: VENTAER INH (12:00)
[2017-03-15] MEDS ORDERED: OXYGENDME NAS.CANULA (09:53)
== END 2017-01-23 18:55 | disposition home or self-care (01) ==
LOC: NEPE 19:05 → INTOOBSV 01-20 02:10 → NEDA 01-20 02:10 → NEPFCDU 01-20 11:30
PROVIDERS: ADMIT Hospitalist; ATTEND Hospitalist
DX: L03.116 Cellulitis of left lower limb (principal); R60.0 Localized edema; Z95.810 Presence of automatic (implantable) cardiac defibrillator; I25.10 Atherosclerotic heart disease of native coronary artery without angina pectoris; E66.01 Morbid (severe) obesity due to excess calories; Z79.4 Long term (current) use of insulin; E11.22 Type 2 diabetes mellitus with diabetic chronic kidney disease; L97.929 Non-pressure chronic ulcer of unspecified part of left lower leg with unspecified severity; E11.622 Type 2 diabetes mellitus with other skin ulcer; Z79.01 Long term (current) use of anticoagulants; M19.90 Unspecified osteoarthritis, unspecified site; J45.909 Unspecified asthma, uncomplicated; E78.00 Pure hypercholesterolemia, unspecified; J44.9 Chronic obstructive pulmonary disease, unspecified; Z86.73 Personal history of transient ischemic attack (TIA), and cerebral infarction without residual deficits; K21.9 Gastro-esophageal reflux disease without esophagitis; Z86.14 Personal history of Methicillin resistant Staphylococcus aureus infection; I25.2 Old myocardial infarction; Z79.899 Other long term (current) drug therapy; M79.605 Pain in left leg; R70.0 Elevated erythrocyte sedimentation rate; I51.7 Cardiomegaly; R07.9 Chest pain, unspecified; F31.9 Bipolar disorder, unspecified; G47.33 Obstructive sleep apnea (adult) (pediatric); E78.5 Hyperlipidemia, unspecified; I48.91 Unspecified atrial fibrillation; M10.9 Gout, unspecified; Z95.5 Presence of coronary angioplasty implant and graft; Z95.1 Presence of aortocoronary bypass graft; Z87.891 Personal history of nicotine dependence; R74.8 Abnormal levels of other serum enzymes; N17.9 Acute kidney failure, unspecified; N18.3 Chronic kidney disease, stage 3 (moderate); I12.9 Hypertensive chronic kidney disease with stage 1 through stage 4 chronic kidney disease, or unspecified chronic kidney disease
CPT/HCPCS: 71010; 73590; 80048; 82550; 82552; 82948; 83605; 83735; 84484; 85025; 85610; 85652; 85730; 86140; 87040; 93005; 93970; 96365; 97161; 99285; G0378; G8987; G8988; J0690; J1170; J1644; J1815; J2405; J2543

== ENCOUNTER → 2017-01-30 | Outpatient (CLI) | payer OTHER ==
[~2017-01-30] MED LIST changes: -ACET5TAB2 PO; +ALBUAER3 INH; +ASPI325T PO; +BUME1TAB PO; +CEPH-460 PO; +CLIN1CAP6 PO; -FURO20TA PO; +GABA100C4 PO; +GABA300C5 PO; +LISI-515 PO; -NOVORP2 SQ; +OXYGENDME NAS.CANULA; +PARO20TA2 PO; +PAXI20TA PO; +SYMB160A INH
[2017-01-30 10:40] LABS: BICARBONATE 35.7 MEQ/L (21.0-32.0); POTASSIUM 5.1 MEQ/L (3.5-5.1)
== END ==
LOC: CLAB 09:51
PROVIDERS: ATTEND Family Medicine
DX: N28.9 Disorder of kidney and ureter, unspecified (principal)
CPT/HCPCS: 36415; 80048

== ENCOUNTER 2017-03-19 01:53 | Inpatient (IN) | payer OTHER ==
[~2017-03-19] VITALS: Ht 165.1 cm; Wt 177.5 kg
[2017-03-19] VITALS (18 sets, daily range): BP systolic 138–166; BP diastolic 72–94; PULSE 69–83; RESP 18–24; TEMP 96.9–99.4; O2SAT 93–99
[~2017-03-19 01:53] MED LIST changes: -ALBUAER3 INH; -ASPI1TAB69 PO; -ASPI325T PO; -BUME1TAB26 PO; -CEPH-460 PO; -CLIN1CAP6 PO; -FLUT1SPR20; -GABA100C4 PO; -GABA300C5 PO; -LISI20TA PO; -PAXI20TA PO; -SYMB160A INH
[2017-03-19 02:12] LABS: MEAN CORPUSCULAR HGB CONC 29.7 % (32.0-36.0)
[2017-03-19] MEDS ORDERED: ASPI325T PO (02:14)
[2017-03-19] MEDS ORDERED: ALBUAER3 INH (02:14)
[2017-03-19] MEDS ORDERED: SYMB160A INH (02:14)
[2017-03-19] MEDS ORDERED: FUROSEMIDE 100 MG/10 ML VIAL IVP ONE (02:15)
[2017-03-19] MEDS ORDERED: methylPREDNISolone SOD SUCC 125 MG/2 ML VIAL IVP ONE (02:15)
[2017-03-19] MEDS: SODIUM CHLORIDE 0.9% FLUSH 10 ML FLUSH IVF PRN ×2 (02:22→10:23)
[2017-03-19] MEDS: RESP: ALBUTEROL 2.5 MG/IPRATROPIUM 0.5 MG NEB (SCH) INH ×6 (02:38→23:27)
[2017-03-19 02:55] LABS: AUTOMATED NEUTROPHIL # 7.5 TH/MM3 (1.8-7.7); BASOPHIL # 0.1 TH/MM3 (0-0.2); BASOPHIL % 0.8 % (0.0-2.0); EOSINOPHIL # 0.2 TH/MM3 (0-0.4); EOSINOPHIL % 1.7 % (0.0-4.0); HEMATOCRIT 41.9 % (39.0-51.0); HEMO FLAGS DIFF FINAL; LYMPH % 12.8 % (9.0-44.0); LYMPHOCYTE # 1.2 TH/MM3 (1.0-4.8); MEAN CELL VOLUME 80.1 FL (80.0-100.0); MEAN CORPUSCULAR HEMOGLOBIN 23.8 PG (27.0-34.0); MONO % 5.5 % (0.0-8.0); NEUT % 79.2 % (16.0-70.0); PLATELET COUNT 213 TH/MM3 (150-450); RED BLOOD COUNT 5.23 MIL/MM3 (4.50-5.90); RED CELL DISTRIBUTION WIDTH 18.4 % (11.6-17.2); WHITE BLOOD COUNT 9.5 TH/MM3 (4.0-11.0)
[2017-03-19 03:06] LABS: PROTHROMBIN TIME - PATIENT 11.5 SEC (9.8-11.6)
[2017-03-19 03:11] LABS: BICARBONATE 38.2 MEQ/L (21.0-32.0); MAGNESIUM 2.5 MG/DL (1.5-2.5); POTASSIUM 4.5 MEQ/L (3.5-5.1)
[2017-03-19 04:09] LABS: BLOOD GAS BASE EXCESS 8.7 mmol/L (-2-2); BLOOD GAS CARBOXYHEMOGLOBIN 1.7 % (0-4); BLOOD GAS HCO3 37 mmol/L (22-26); BLOOD GAS METHEMOGLOBIN 1.1 % (0-2); BLOOD GAS O2 HGB SATURATION 90 % (90-100); BLOOD GAS OXYGEN CONTENT 15.9 Vol % (12.0-20.0); BLOOD GAS PCO2 97 mmHg (38-42); BLOOD GAS PO2 77 mmHG (61-120); BLOOD GAS TOTAL HGB 12.5 G/DL (12.0-16.0); CRITICAL VALUE YES; DRAW SITE RT RADIAL; LITER FLOW 3 L/M; NUMBER OF ARTERIAL PUNCTURES 1; OXYGEN DEVICE NASAL CANNULA; STAT YES; TEMP CORR TO 98.6; ULNAR PULSE PRESENT
--- NOTE | 2017-03-19 04:14 | RADRPT ---
EXAM DATE/TIME: 03/19/2017 03:39 [facility] COMPARISON: CHEST SINGLE AP, January 20, 2017, 0:55. INDICATIONS : Shortness of breath. MEDICAL HISTORY : Chronic obstructive pulmonary disease. SURGICAL HISTORY : CABG. Pacemaker ENCOUNTER: Initial ACUITY: 1 day PAIN SCORE: 0/10 LOCATION: Bilateral chest FINDINGS: A single view of the chest demonstrates cardiomegaly with previous median sternotomy. Right-sided pac emaker with single intact lead. Minimal interstitial edema. The cardiomediastinal contours are unrema rkable. Osseous structures are intact. CONCLUSION: 1. Cardiomegaly. 2. Minimal interstitial edema. Er.farhan Rodríguez MD on March 19, 2017 at 4:11 Board Certified Radiologist. This report was verified electronically.
--- NOTE | 2017-03-19 05:27 | HHI.HP ---
[facility] Service Critical Care Medicine Primary Care Physician Hamida Ford MD Admission Diagnosis Hypercapneic respiratory failure. respiratory distress, respiratory acidosis, CHF Diagnosis: Chief Complaint: Can't breathe. Travel History International Travel<30 Days: No Contact w/Intl Traveler <30 Da: No History of Present Illness 56 y/o morbidly obese man with hypercapneic respiratory failure, pH 7.20 and PCO2 90. Exacerbated COPD. Review of Systems ROS SOB Past Family Social History Allergies: Coded Allergies: Morphine (Verified Allergy, Severe, 03/19/17) GI MRI PRECAUTION (Verified Adverse Reaction, Severe, PACEMAKER (JLT), BULLET FRAGMENTS IN SINUS CAVITY, 03/19/17) Physical Exam Vital Signs Vital Signs Date Time Temp Pulse Resp B/P Pulse Ox O2 Delivery O2 Flow Rate FiO2 03/19/17 03:20 94 40 03/19/17 02:16 99 Nasal Cannula 4 03/19/17 02:16 98 Nasal Cannula 4 03/19/17 01:58 98.2 82 22 138/72 Physical Exam P 82, BP 138/72, R 26, sats 91% on 4L Head: Normal. Neck: Supple, airway widely patent. Lungs: Poor air entry. Distant sounds, obstructed pattern. Heart: NL S1S2, RRR. No JVD. Abdomen: Large, soft. No guarding. Extremities: Warm, well perfused. 1+ edema lower legs in stockings. Neuro: Surprisingly alert, conversant. Moves 4 limbs to command. Speech clear. Laboratory Laboratory Tests Test 03/19/17 03/19/17 02:20 02:40 White Blood Count 9.5 Red Blood Count 5.23 Hemoglobin 12.4 Hematocrit 41.9 Mean Corpuscular Volume 80.1 Mean Corpuscular Hemoglobin 23.8 Mean Corpuscular Hemoglobin 29.7 Concent Red Cell Distribution Width 18.4 Platelet Count 213 Mean Platelet Volume 8.8 Neutrophils (%) (Auto) 79.2 Lymphocytes (%) (Auto) 12.8 Monocytes (%) (Auto) 5.5 Eosinophils (%) (Auto) 1.7 Basophils (%) (Auto) 0.8 Neutrophils # (Auto) 7.5 Lymphocytes # (Auto) 1.2 Monocytes # (Auto) 0.5 Eosinophils # (Auto) 0.2 Basophils # (Auto) 0.1 CBC Comment DIFF FINAL Differential Comment Prothrombin Time 11.5 Prothromb Time International 1.0 Ratio Sodium Level 139 Potassium Level 4.5 Chloride Level 99 Carbon Dioxide Level 38.2 Anion Gap 2 Blood Urea Nitrogen 29 Creatinine 1.72 Estimat Glomerular Filtration 42 Rate Random Glucose 223 Calcium Level 8.4 Magnesium Level 2.5 Troponin I 0.20 B-Type Natriuretic Peptide 90 Blood Gas Puncture Site RT RADIAL Blood Gas Patient Temperature 98.6 Blood Gas HCO3 37 Blood Gas Base Excess 8.7 Blood Gas Oxygen Saturation 90 Arterial Blood pH 7.20 Arterial Blood Partial 97 Pressure CO2 Arterial Blood Partial 77 Pressure O2 Arterial Blood Oxygen Content 15.9 Arterial Blood 1.7 Carboxyhemoglobin Arterial Blood Methemoglobin 1.1 Blood Gas Hemoglobin 12.5 Oxygen Delivery Device NASAL CANNULA Blood Gas Liter Flow 3 Result Diagram: 03/19/1721903/19/17219 Assessment and Plan Assessment and Plan Assessment: 1. COPD exacerbation. 2. Cardiomegaly. 3. Morbid Obesity Plan: 1. BiPAP 12/5. 2. FiO2 to keep sats 88 - 93% 3. Protonix. 4. Lovenox DVT px. 5. Levaquin. Overall impression: Critically ill with respiratory distress exacerbated by morbid obesity. May require intubation. Critical care 39 mins Gera Orozco MD Mar 19, 2017 05:27
[2017-03-19] MEDS ORDERED: SENNOSIDES 8.6 MG TAB PO PRN (05:30)
[2017-03-19] MEDS ORDERED: CHLORHEXIDINE GLUCONATE 2 % 1 PACK (2 CLOTHS) TOP PRN (05:30)
[2017-03-19] MEDS ORDERED: LEVOFLOXACIN 750 MG PREMIX INJ 150 ML IV SCH (05:30)
[2017-03-19] MEDS ORDERED: MAGNESIUM HYDROXIDE SUSP 30 ML CUP PO PRN (05:30)
[2017-03-19] MEDS ORDERED: ONDANSETRON HCL 4 MG/2 ML VIAL IV PRN (05:30)
[2017-03-19] MEDS ORDERED: LACTULOSE SYRUP 20 GM/30 ML CUP PO PRN (05:30)
[2017-03-19] MEDS ORDERED: MISCELLANEOUS NURSING INFORMATION XX SCH (05:30)
[2017-03-19] MEDS ORDERED: BISACODYL 10 MG SUPP RECTAL PRN (05:30)
[2017-03-19 05:36] LABS: BLOOD GAS VENOUS BASE EXCESS 10.7 mmol/L (-2-2); BLOOD GAS VENOUS HCO3 38 mmol/L (22-26); BLOOD GAS VENOUS O2 CONTENT 5.6 Vol % (9.0-17.0); BLOOD GAS VENOUS O2 HGB SAT 30 % (70-76); BLOOD GAS VENOUS PCO2 97 mmHg (44-48); BLOOD GAS VENOUS PO2 23 mmHg (35-40); BLOOD GAS VENOUS pH 7.22 (7.360-7.400); TEMP CORR TO 98.6
[2017-03-19 05:38] LABS: CRITICAL VALUE YES; OXYGEN DEVICE BIPAP
[2017-03-19 05:39] LABS: DRAW SITE IV SITE; FIO2 40 %; STAT YES; VENT SETTINGS IPAP=18 EPAP=8
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
[2017-03-19] MEDS: ENOXAPARIN SODIUM 40 MG/0.4 ML SYRINGE SQ SCH (06:45)
[2017-03-19 08:17] LABS: BLOOD GAS BASE EXCESS 7.6 mmol/L (-2-2); BLOOD GAS HCO3 34 mmol/L (22-26); BLOOD GAS METHEMOGLOBIN 1.5 % (0-2); BLOOD GAS O2 HGB SATURATION 94 % (90-100); BLOOD GAS OXYGEN CONTENT 16.5 Vol % (12.0-20.0); BLOOD GAS PCO2 68 mmHg (38-42); BLOOD GAS PO2 101 mmHg (61-120); BLOOD GAS TOTAL HGB 12.5 G/DL (12.0-16.0); TEMP CORR TO 98.6
[2017-03-19 08:18] LABS: CRITICAL VALUE YES; DRAW SITE LT RADIAL; FIO2 30 %; NUMBER OF ARTERIAL PUNCTURES 1; OXYGEN DEVICE BIPAP 15IPAP/5; STAT NO; ULNAR PULSE PRESENT
[2017-03-19] MEDS ORDERED: DEXTROSE 50% IN WATER 50 ML VIAL(D50) IV PRN ×2 (10:15→12:45)
[2017-03-19] MEDS ORDERED: GLUCAGON 1 MG/ML VIAL OTHER PRN ×2 (10:15→12:45)
[2017-03-19 10:18] LABS: MEAN CORPUSCULAR HGB CONC 29.3 % (32.0-36.0)
[2017-03-19] MEDS: DOCUSATE SODIUM 50 MG/SENNA 8.6 MG TAB PO SCH ×2 (10:23→19:58)
[2017-03-19] MEDS: PANTOPRAZOLE SOD 40 MG DELAYED RELEASE TAB PO SCH (10:23)
[2017-03-19] MEDS: methylPREDNISolone SOD SUCC 125 MG/2 ML VIAL IV PUSH SCH ×3 (10:23→19:58)
[2017-03-19] MEDS ORDERED: INSULIN NovoLIN REGULAR SUPPLEMENTAL SCALE SQ SCH (11:00)
[2017-03-19] MEDS: SODIUM CHLOR 0.9% 1000 ML INJ 1,000 ML IV SCH (11:04)
[2017-03-19 11:24] LABS: AUTOMATED NEUTROPHIL # 7.2 TH/MM3 (1.8-7.7); BASOPHIL % 0.5 % (0.0-2.0); EOSINOPHIL % 0.1 % (0.0-4.0); HEMATOCRIT 42.9 % (39.0-51.0); HEMO FLAGS DIFF FINAL; LYMPH % 5.2 % (9.0-44.0); LYMPHOCYTE # 0.4 TH/MM3 (1.0-4.8); MEAN CELL VOLUME 79.6 FL (80.0-100.0); MEAN CORPUSCULAR HEMOGLOBIN 23.4 PG (27.0-34.0); MONO % 2.1 % (0.0-8.0); NEUT % 92.1 % (16.0-70.0); PLATELET COUNT 175 TH/MM3 (150-450); RED BLOOD COUNT 5.39 MIL/MM3 (4.50-5.90); RED CELL DISTRIBUTION WIDTH 18.2 % (11.6-17.2); WHITE BLOOD COUNT 7.8 TH/MM3 (4.0-11.0)
[2017-03-19 11:42] LABS: ALKALINE PHOSPHATASE 106 U/L (45-117); ALT (GPT) 26 U/L (12-78); ANION GAP 3 MEQ/L (5-15); AST (GOT) 23 U/L (15-37); BICARBONATE 34.6 MEQ/L (21.0-32.0); BLOOD UREA NITROGEN 29 MG/DL (7-18); CHLORIDE 99 MEQ/L (98-107); GLOMERULAR FILTRATION RATE 45 ML/MIN (>89); POTASSIUM 5.5 MEQ/L (3.5-5.1); SODIUM (NA) 137 MEQ/L (136-145); TOTAL BILIRUBIN ADULT 0.7 MG/DL (0.2-1.0)
--- NOTE | 2017-03-19 12:08 | EKG ---
Date Performed: 03/19/2017 Time Performed: 02:06:43 PTAGE: 56 years EKG: Sinus rhythm INTRAVENTRICULAR CONDUCTION DELAY NONSPECIFIC ST-T CHANGES WHICH ARE MORE PROMINANT COMPARED TO PRIO R STUDY. ABNORMAL ECG PREVIOUS TRACING : 01/20/2017 12.50 DOCTOR: Niko Fischer Interpretating Date/Time 03/19/2017 12:07:05
[2017-03-19] MEDS ORDERED: BUMETANIDE INJ 1 MG/4 ML VIAL IV PUSH ONE (12:45)
[2017-03-19] MEDS ORDERED: SODIUM POLYSTYRENE SULFONATE SUSP 15 GM/60 ML CUP PO ONE (12:45)
[2017-03-19] MEDS: INSULIN NovoLIN REGULAR SUPPLEMENTAL SCALE SQ SCH ×4 (13:00→23:59)
[2017-03-20] VITALS (14 sets, daily range): BP systolic 143–178; BP diastolic 66–79; PULSE 63–86; RESP 19–30; TEMP 98.3–99.1; O2SAT 92–100
[2017-03-20] MEDS: ACETAMINOPHEN 325 MG TAB PO PRN ×2 (00:20→20:38)
[2017-03-20] MEDS: methylPREDNISolone SOD SUCC 125 MG/2 ML VIAL IV PUSH SCH ×3 (02:36→20:01)
[2017-03-20] MEDS: CHLORHEXIDINE GLUCONATE 2 % 1 PACK (2 CLOTHS) TOP SCH (04:00)
[2017-03-20] MEDS: INSULIN NovoLIN REGULAR SUPPLEMENTAL SCALE SQ SCH ×5 (04:00→20:00)
[2017-03-20] MEDS: RESP: ALBUTEROL 2.5 MG/IPRATROPIUM 0.5 MG NEB (SCH) INH ×5 (04:05→21:15)
[2017-03-20 04:41] LABS: AUTOMATED NEUTROPHIL # 5.8 TH/MM3 (1.8-7.7); HEMATOCRIT 38.1 % (39.0-51.0); HEMO FLAGS DIFF FINAL; LYMPH % 7.8 % (9.0-44.0); LYMPHOCYTE # 0.5 TH/MM3 (1.0-4.8); MEAN CELL VOLUME 78.3 FL (80.0-100.0); MEAN CORPUSCULAR HEMOGLOBIN 23.5 PG (27.0-34.0); MONO % 2.2 % (0.0-8.0); PLATELET COUNT 187 TH/MM3 (150-450); RED BLOOD COUNT 4.86 MIL/MM3 (4.50-5.90); RED CELL DISTRIBUTION WIDTH 17.8 % (11.6-17.2); WHITE BLOOD COUNT 6.4 TH/MM3 (4.0-11.0)
[2017-03-20] MEDS: ENOXAPARIN SODIUM 40 MG/0.4 ML SYRINGE SQ SCH (04:49)
[2017-03-20] MEDS: SODIUM CHLOR 0.9% 1000 ML INJ 1,000 ML IV SCH (04:52)
[2017-03-20 05:17] LABS: BICARBONATE 38.8 MEQ/L (21.0-32.0); POTASSIUM 4.3 MEQ/L (3.5-5.1)
[2017-03-20] MEDS: DOCUSATE SODIUM 50 MG/SENNA 8.6 MG TAB PO SCH ×2 (08:05→20:01)
[2017-03-20] MEDS: PANTOPRAZOLE SOD 40 MG DELAYED RELEASE TAB PO SCH (08:05)
--- NOTE | 2017-03-20 09:16 | HHI.CCPN ---
Subjective Remarks/Hospital Course 56 y/o morbidly obese man with hypercapneic respiratory failure, pH 7.20 and PCO2 90. Exacerbated COPD. 03/20 Patient is on 3L oxygen with good sats. Afebrile. Awake and alert, Patient sates the defib woke him up from sleep patient however denies any chest patient and appears asymptomatic. Objective Vital Signs Date Time Temp Pulse Resp B/P Pulse Ox O2 Delivery O2 Flow Rate FiO2 03/20/17 08:40 98 Nasal Cannula 3.00 03/20/17 06:00 73 03/20/17 04:00 99.1 22 159/72 03/19/17 20:49 31 Intake and Output 03/19/17 03/19/17 03/20/17 08:00 16:00 00:00 Intake Total 310 ml 579 ml Output Total 2655 ml 700 ml Balance -2345 ml -121 ml Result Diagram: 03/20/17 0319 03/20/17 0319 Other Results Laboratory Tests Test 03/19/17 03/19/17 03/19/17 03/20/17 10:30 16:35 23:08 03:19 White Blood Count 7.8 TH/MM3 6.4 TH/MM3 Red Blood Count 5.39 MIL/MM3 4.86 MIL/MM3 Hemoglobin 12.6 GM/DL 11.4 GM/DL Hematocrit 42.9 % 38.1 % Mean Corpuscular Volume 79.6 FL 78.3 FL Mean Corpuscular Hemoglobin 23.4 PG 23.5 PG Mean Corpuscular Hemoglobin 29.3 % 30.0 % Concent Red Cell Distribution Width 18.2 % 17.8 % Platelet Count 175 TH/MM3 187 TH/MM3 Mean Platelet Volume 8.8 FL 9.0 FL Neutrophils (%) (Auto) 92.1 % 90.0 % Lymphocytes (%) (Auto) 5.2 % 7.8 % Monocytes (%) (Auto) 2.1 % 2.2 % Eosinophils (%) (Auto) 0.1 % 0.0 % Basophils (%) (Auto) 0.5 % 0.0 % Neutrophils # (Auto) 7.2 TH/MM3 5.8 TH/MM3 Lymphocytes # (Auto) 0.4 TH/MM3 0.5 TH/MM3 Monocytes # (Auto) 0.2 TH/MM3 0.1 TH/MM3 Eosinophils # (Auto) 0.0 TH/MM3 0.0 TH/MM3 Basophils # (Auto) 0.0 TH/MM3 0.0 TH/MM3 CBC Comment DIFF FINAL DIFF FINAL Differential Comment Sodium Level 137 MEQ/L 138 MEQ/L Potassium Level 5.5 MEQ/L 5.3 MEQ/L 4.3 MEQ/L Chloride Level 99 MEQ/L 94 MEQ/L Carbon Dioxide Level 34.6 MEQ/L 38.8 MEQ/L Anion Gap 3 MEQ/L 5 MEQ/L Blood Urea Nitrogen 29 MG/DL 30 MG/DL Creatinine 1.60 MG/DL 1.74 MG/DL Estimat Glomerular Filtration 45 ML/MIN 41 ML/MIN Rate Random Glucose 224 MG/DL 285 MG/DL Calcium Level 8.4 MG/DL 8.6 MG/DL Total Bilirubin 0.7 MG/DL Aspartate Amino Transf 23 U/L (AST/SGOT) Alanine Aminotransferase 26 U/L (ALT/SGPT) Alkaline Phosphatase 106 U/L Troponin I 0.17 NG/ML 0.14 NG/ML 0.14 NG/ML Total Protein 7.8 GM/DL Albumin 3.1 GM/DL Imaging Last Impressions Chest X-Ray 03/19/17 0210 Signed Impressions: Service Date/Time: Sunday, March 19, 2017 03:39 - CONCLUSION: 1. Cardiomegaly. 2. Minimal interstitial edema. Er.farhan Rodrígeuz MD Objective Remarks GENERAL: Patient is 56 yo lying in bed in NAD. SKIN: Warm and dry. HEAD: Normocephalic. EYES: No scleral icterus. No injection or drainage. NECK: Supple, trachea midline. No JVD or lymphadenopathy. CARDIOVASCULAR: Regular rate and rhythm without murmurs, gallops, or rubs. RESPIRATORY: Breath sounds equal bilaterally. No accessory muscle use. GASTROINTESTINAL: Abdomen soft, non-tender, nondistended. MUSCULOSKELETAL: No cyanosis, or edema. Neuro: Awake and alert. A/P Assessment and Plan 1)Acute on chronic hypercapnic resp Insuff 2)JOSE R 3)TANA, morbid obesity 4)COPD exacerbation. 5)Mild elevated trop 6)Anemia 7)Defib placement Plan: Neuro: Awake and alert Pulm: Continue with oxygen keep sat >92% Bronchodilators, decrease Solumederol 40mg Q12 NIPPV for resp distress, pulm eval. CV: Place on Coreg 6.25mg BID- Monitor HR and BP keep MAP>65mmHg Check 2D echo to eval LV function, cards eval patient known to Dr. Duke :Monitor renal function, I/O's, avoid nephrotoxins GI: ON PO diet ID: Monitor for signs of infections ( Fever, WBC) Continue Levaquin Endo: On SSI (medium scale), add Levemir 5units Q12, taper IV steroids Heme: Monitor CBC GI prophylaxis- on Protonix 40mg daily DVT prophylaxis- On Lovenox 40mg daily Will sign off and transfer care to [facility] Level 3 Pedro Pablo Choudhary MD Mar 20, 2017 09:16
[2017-03-20] MEDS: INSULIN DETEMIR 100 UNITS/ML VIAL SQ SCH ×2 (11:25→20:03)
[2017-03-20 11:58] LABS: CREATINE KINASE 110 U/L (39-308)
[2017-03-20 12:11] LABS: CKMB 1.9 NG/ML (0.5-3.6)
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
[2017-03-20] MEDS ORDERED: hydrALAZINE HCL 20 MG/ML VIAL IV PUSH PRN (16:30)
[2017-03-20] MEDS: CARVEDILOL 6.25 MG TAB PO SCH (20:01)
[2017-03-21] VITALS (8 sets, daily range): BP systolic 142–165; BP diastolic 66–81; PULSE 60–69; RESP 21–24; TEMP 96.8–98.3; O2SAT 92–98
[2017-03-21] MEDS: RESP: ALBUTEROL 2.5 MG/IPRATROPIUM 0.5 MG NEB (SCH) INH ×5 (00:54→15:10)
[2017-03-21] MEDS: CHLORHEXIDINE GLUCONATE 2 % 1 PACK (2 CLOTHS) TOP SCH (03:54)
[2017-03-21] MEDS: INSULIN NovoLIN REGULAR SUPPLEMENTAL SCALE SQ SCH ×3 (04:00→08:00)
[2017-03-21] MEDS: ENOXAPARIN SODIUM 40 MG/0.4 ML SYRINGE SQ SCH (05:44)
[2017-03-21] MEDS ORDERED: LEVOFLOXACIN 750 MG PREMIX INJ 150 ML IV SCH (06:00)
[2017-03-21 07:08] LABS: AUTOMATED NEUTROPHIL # 10.6 TH/MM3 (1.8-7.7); HEMATOCRIT 41.2 % (39.0-51.0); HEMO FLAGS DIFF FINAL; LYMPHOCYTE # 0.4 TH/MM3 (1.0-4.8); MEAN CELL VOLUME 77.5 FL (80.0-100.0); MEAN CORPUSCULAR HEMOGLOBIN 23.3 PG (27.0-34.0); MEAN CORPUSCULAR HGB CONC 30.1 % (32.0-36.0); MONO % 1.9 % (0.0-8.0); NEUT % 94.1 % (16.0-70.0); PLATELET COUNT 193 TH/MM3 (150-450); RED BLOOD COUNT 5.32 MIL/MM3 (4.50-5.90); RED CELL DISTRIBUTION WIDTH 18.8 % (11.6-17.2); WHITE BLOOD COUNT 11.3 TH/MM3 (4.0-11.0)
[2017-03-21 07:29] LABS: POTASSIUM 4.7 MEQ/L (3.5-5.1)
[2017-03-21 07:35] LABS: BICARBONATE 37.5 MEQ/L (21.0-32.0)
--- NOTE | 2017-03-21 07:41 | EKG ---
Date Performed: 03/20/2017 Time Performed: 08:23:34 PTAGE: 56 years EKG: Sinus rhythm MODERATE INTRAVENTRICULAR CONDUCTION DELAY MINIMAL ST DEPRESSION BORDERLINE ECG PREVIOUS TRACING : 03/19/2017 02.06 DOCTOR: Ani Hernandez Interpretating Date/Time 03/21/2017 07:40:14
[2017-03-21] MEDS: methylPREDNISolone SOD SUCC 125 MG/2 ML VIAL IV PUSH SCH (08:00)
[2017-03-21] MEDS: DOCUSATE SODIUM 50 MG/SENNA 8.6 MG TAB PO SCH (09:00)
[2017-03-21] MEDS: PANTOPRAZOLE SOD 40 MG DELAYED RELEASE TAB PO SCH (09:00)
[2017-03-21] MEDS: INSULIN DETEMIR 100 UNITS/ML VIAL SQ SCH (09:00)
[2017-03-21] MEDS: CARVEDILOL 6.25 MG TAB PO SCH (09:00)
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
--- NOTE | 2017-03-21 13:02 | PD.CARD.PN ---
Subjective Subjective Remarks No events over night No chest pain, no shortness of breath Objective Medications Current Medications Medications (Trade) Dose Ordered Sig/Lester Route Start Time Stop Time Status Last Admin (NS Flush) 2 ml UNSCH PRN IVF 03/19/17 02:15 03/19/17 10:23 (Tylenol) 650 mg Q6H PRN PO 03/19/17 05:30 03/20/17 20:38 (Protonix) 40 mg DAILY PO 03/19/17 09:00 03/21/17 09:00 (Zofran Inj) 4 mg Q6H PRN IV 03/19/17 05:30 (Lovenox Inj) 40 mg Q24H SQ 03/19/17 05:30 03/21/17 05:44 Miscellaneous Information 1 Q361D XX 03/19/17 05:30 (Chlorhexidine 2% Cloth) 3 pack Taper DAILY@04 TOP 03/20/17 04:00 03/16/18 03:59 03/21/17 03:54 (Chlorhexidine 2% Cloth) 3 pack UNSCH PRN TOP 03/19/17 05:30 (Simi-Colace) 1 tab BID PO 03/19/17 09:00 03/21/17 09:00 (Milk Of Magnesia Liq) 30 ml Q12H PRN PO 03/19/17 05:30 (Senokot) 17.2 mg Q12H PRN PO 03/19/17 05:30 (Dulcolax Supp) 10 mg DAILY PRN RECTAL 03/19/17 05:30 Lactulose 30 ml 30 ml DAILY PRN PO 03/19/17 05:30 (Levaquin 750 Mg Premix Inj) 150 ml @ 100 mls/hr Q48H IV 03/21/17 06:00 03/21/17 05:44 (D50w (Vial) Inj) 50 ml UNSCH PRN IV 03/19/17 10:15 (Glucagon Inj) 1 mg UNSCH PRN OTHER 03/19/17 10:15 (NovoLIN R SUPPLEMENTAL SCALE) 1 Q4HR SQ 03/19/17 13:00 03/21/17 08:00 (SoluMEDROL INJ) 40 mg Q12H IV PUSH 03/20/17 20:00 03/21/17 08:00 (Levemir Inj) 5 units Q12HR SQ 03/20/17 09:45 03/21/17 09:00 (Coreg) 6.25 mg Q12HR PO 03/20/17 21:00 03/21/17 09:00 (Apresoline Inj) 10 mg Q6H PRN IV PUSH 03/20/17 16:30 03/20/17 21:32 Vital Signs / I&O Vital Signs Date Time Temp Pulse Resp B/P Pulse Ox O2 Delivery O2 Flow Rate FiO2 03/21/17 08:00 98.1 61 24 165/77 98 03/21/17 08:00 61 03/21/17 07:48 93 Nasal Cannula 3.00 03/21/17 04:00 96.8 60 22 165/81 96 03/21/17 00:00 97.2 60 21 95 03/20/17 21:38 18 03/20/17 21:21 96 Nasal Cannula 3.00 03/20/17 20:00 98.9 78 19 156/66 94 03/20/17 18:00 79 03/20/17 16:00 98.6 84 22 178/79 95 03/20/17 16:00 79 03/20/17 14:00 63 I/O 03/20/17 03/20/17 03/20/17 03/21/17 03/21/17 03/21/17 07:00 15:00 23:00 07:00 15:00 23:00 Intake Total 761 ml 1000 ml 360 ml 480 ml Output Total 525 ml 800 ml 1000 ml 900 ml Balance 236 ml 200 ml -640 ml -420 ml Intake Oral 480 ml 800 ml 360 ml 480 ml IV Total 281 ml 200 ml 0 ml 0 ml Output Urine Total 525 ml 800 ml 1000 ml 900 ml # Bowel Movements 2 0 1 Physical Exam GENERAL: NAD, AAOx3 SKIN: Warm and dry. HEAD: Atraumatic. Normocephalic. EYES: Pupils equal and round. No scleral icterus. No injection or drainage. ENT: No nasal bleeding or discharge. Mucous membranes pink and moist. NECK: Trachea midline. No JVD. CARDIOVASCULAR: Regular rate and rhythm. RESPIRATORY: No accessory muscle use. Decreased breath sounds bilaterally GASTROINTESTINAL: Abdomen soft, non-tender, nondistended. Hepatic and splenic margins not palpable. MUSCULOSKELETAL: Extremities with 1+ edema NEUROLOGICAL: Awake and alert. No obvious cranial nerve deficits. Motor grossly within normal limits. Five out of 5 muscle strength in the arms and legs. Normal speech. PSYCHIATRIC: Appropriate mood and affect; insight and judgment normal. Laboratory Laboratory Tests Test 03/21/17 05:32 White Blood Count 11.3 TH/MM3 Red Blood Count 5.32 MIL/MM3 Hemoglobin 12.4 GM/DL Hematocrit 41.2 % Mean Corpuscular Volume 77.5 FL Mean Corpuscular Hemoglobin 23.3 PG Mean Corpuscular Hemoglobin 30.1 % Concent Red Cell Distribution Width 18.8 % Platelet Count 193 TH/MM3 Mean Platelet Volume 8.7 FL Neutrophils (%) (Auto) 94.1 % Lymphocytes (%) (Auto) 4.0 % Monocytes (%) (Auto) 1.9 % Eosinophils (%) (Auto) 0.0 % Basophils (%) (Auto) 0.0 % Neutrophils # (Auto) 10.6 TH/MM3 Lymphocytes # (Auto) 0.4 TH/MM3 Monocytes # (Auto) 0.2 TH/MM3 Eosinophils # (Auto) 0.0 TH/MM3 Basophils # (Auto) 0.0 TH/MM3 CBC Comment DIFF FINAL Differential Comment Sodium Level 135 MEQ/L Potassium Level 4.7 MEQ/L Chloride Level 94 MEQ/L Carbon Dioxide Level 37.5 MEQ/L Anion Gap 4 MEQ/L Blood Urea Nitrogen 39 MG/DL Creatinine 1.59 MG/DL Estimat Glomerular Filtration 46 ML/MIN Rate Random Glucose 299 MG/DL Calcium Level 8.9 MG/DL Assessment and Plan Problem List: (1) Respiratory acidosis (2) Type 2 diabetes mellitus (3) CAD (coronary artery disease) (4) Sleep apnea (5) Morbid obesity (6) Troponin level elevated Assessment and Plan 1) Mildly elevated troponin with fall off, type 2 in nature due to underlying respiratory acidosis/respiratory distress on arrival Con't with medical management 2) Question of AICD firing per the patient, interrogation showing no episodes 3) TANA with non-compliance, but will look into a new mask to help 4) Unsure why he isn't on his ASA/Plavix, will restart due to his CAD Dimitri Kruse DO Mar 21, 2017 13:02
[2017-03-21] MEDS ORDERED: CLOPIDOGREL 75 MG TAB PO SCH (13:15)
[2017-03-21] MEDS ORDERED: ASPIRIN 81 MG CHEW TAB CHEW SCH (13:15)
--- NOTE | 2017-03-21 14:32 | ECHRPT ---
Indication: ELEV TROP CONCLUSIONS Normal left ventricular size. Wall thickness is normal. The left ventricular systolic function is grossly normal on limited imaging. There was limited left ventricular wall motion assessment due to poor endocardial visualization. The mitral valve is not well visualized. The aortic valve is not well visualized. BP: 159 / 72 HR: 69 Rhythm: MEASUREMENTS (Male / Female) Normal Values Technical Quality:Very technically difficult study 2D ECHO LV Diastolic Diameter PLAX 4.8 cm 4.2 - 5.9 / 3.9 - 5.3 cm LV Systolic Diameter PLAX 4.1 cm IVS Diastolic Thickness 1.5 cm 0.6 - 1.0 / 0.6 - 0.9 cm LVPW Diastolic Thickness 1.3 cm 0.6 - 1.0 / 0.6 - 0.9 cm LV Relative Wall Thickness 0.6 RV Internal Dim ED PLAX 2.7 cm M-MODE Aortic Root Diameter MM 3.1 cm LA Systolic Diameter MM 5.4 cm LA Ao Ratio MM 1.7 AV Cusp Separation MM 1.4 cm DOPPLER Mitral E Point Velocity 151.0 cm/s Mitral A Point Velocity 89.6 cm/s Mitral E to A Ratio 1.7 FINDINGS LEFT VENTRICLE Normal left ventricular size. Wall thickness is normal. The left ventricular systolic function is grossly normal on limited imaging. There was limited left ventricular wall motion assessment due to poor endocardial visualization. RIGHT VENTRICLE The right ventricular size is normal. LEFT ATRIUM The left atrial size is normal. RIGHT ATRIUM The right atrium is not well visualized. ATRIAL SEPTUM The interatrial septum not well visualized. AORTA The aortic root and proximal ascending aorta are not well visualized. MITRAL VALVE The mitral valve is not well visualized. No mitral valve regurgitation. AORTIC VALVE The aortic valve is not well visualized. No aortic valve regurgitation. TRICUSPID VALVE No tricuspid regurgitation. PULMONARY VALVE The pulmonary valve is not well visualized. No pulmonary valve regurgitation. VESSELS The inferior vena cava was not well visualized. PERICARDIUM There is no pericardial effusion. Paco Shahid MD (Electronically Signed) Final Date:21 March 2017 14:32
[2017-03-21] MEDS ORDERED: GABA300C5 PO (16:15)
--- NOTE | 2017-03-21 18:13 | HHI.PR ---
Subjective Remarks 56 YO Obese Wm with Hypercapnoic RF Refuses to Use CPAP On NC, maintains good sat Anxious to go home Seen earlier today in ICU Objective Vital Signs Vital Signs Date Time Temp Pulse Resp B/P Pulse Ox O2 Delivery O2 Flow Rate FiO2 03/21/17 16:00 98.3 66 24 142/66 92 03/21/17 16:00 68 03/21/17 14:00 69 03/21/17 12:00 97.8 61 22 144/77 92 03/21/17 12:00 61 03/21/17 10:00 67 03/21/17 08:00 98.1 61 24 165/77 98 03/21/17 08:00 61 03/21/17 07:48 93 Nasal Cannula 3.00 03/21/17 04:00 96.8 60 22 165/81 96 03/21/17 00:00 97.2 60 21 95 03/20/17 21:38 18 03/20/17 21:21 96 Nasal Cannula 3.00 03/20/17 20:00 98.9 78 19 156/66 94 I/O 03/20/17 03/20/17 03/20/17 03/21/17 03/21/17 03/21/17 07:00 15:00 23:00 07:00 15:00 23:00 Intake Total 761 ml 1000 ml 360 ml 480 ml 630 ml Output Total 525 ml 800 ml 1000 ml 900 ml 700 ml Balance 236 ml 200 ml -640 ml -420 ml -70 ml Intake Oral 480 ml 800 ml 360 ml 480 ml 630 ml IV Total 281 ml 200 ml 0 ml 0 ml Output Urine Total 525 ml 800 ml 1000 ml 900 ml 700 ml # Bowel Movements 2 0 1 1 Result Diagram: 03/21/17 0532 03/21/17 0532 Objective Remarks GENERAL: Morbidly obese male, mild sob SKIN: Warm and dry. HEAD: Normocephalic. EYES: No scleral icterus. No injection or drainage. NECK: Supple, trachea midline. No JVD or lymphadenopathy. CARDIOVASCULAR: Regular rate and rhythm without murmurs, gallops, or rubs. RESPIRATORY: Breath sounds equal bilaterally. No accessory muscle use. GASTROINTESTINAL: Abdomen soft, non-tender, nondistended. MUSCULOSKELETAL: No cyanosis, ++ edema. BACK: Nontender without obvious deformity. No CVA tenderness. A/P Assessment and Plan Hypercapnoic RF improved COPD TANA Morbid obesity CAD,S/P CABG CMP, defib placement PLAN" Pt refuses to use CPAP Supplement 02 Aerosol nebs Smoking cessation Tanner Lopez MD Mar 21, 2017 18:13
== END 2017-03-21 17:20 | disposition home or self-care (01) | DRG 190 ==
LOC: NEPE 01:53 → NEDA 04:49 → HIMW 07:05
PROVIDERS: ADMIT Family Medicine; ATTEND Family Medicine
PROC: 5A09357 Assistance with Respiratory Ventilation, Less than 24 Consecutive Hours, Continuous Positive Airway Pressure (ICD-10-PCS; principal; 2017-03-19)
DX: J44.1 Chronic obstructive pulmonary disease with (acute) exacerbation (principal); J96.22 Acute and chronic respiratory failure with hypercapnia; N17.9 Acute kidney failure, unspecified; Z68.44 Body mass index [BMI] 60.0-69.9, adult; I50.9 Heart failure, unspecified; E66.01 Morbid (severe) obesity due to excess calories; I51.7 Cardiomegaly; I25.2 Old myocardial infarction; Z95.1 Presence of aortocoronary bypass graft; Z95.5 Presence of coronary angioplasty implant and graft; Z95.810 Presence of automatic (implantable) cardiac defibrillator; I25.10 Atherosclerotic heart disease of native coronary artery without angina pectoris; Z86.73 Personal history of transient ischemic attack (TIA), and cerebral infarction without residual deficits; R74.8 Abnormal levels of other serum enzymes; G47.33 Obstructive sleep apnea (adult) (pediatric); E78.5 Hyperlipidemia, unspecified; M10.9 Gout, unspecified; Z79.02 Long term (current) use of antithrombotics/antiplatelets; Z79.82 Long term (current) use of aspirin; E11.22 Type 2 diabetes mellitus with diabetic chronic kidney disease; Z79.4 Long term (current) use of insulin; I12.9 Hypertensive chronic kidney disease with stage 1 through stage 4 chronic kidney disease, or unspecified chronic kidney disease; N18.9 Chronic kidney disease, unspecified; Z97.0 Presence of artificial eye; Z87.891 Personal history of nicotine dependence; Z86.14 Personal history of Methicillin resistant Staphylococcus aureus infection; F31.9 Bipolar disorder, unspecified
CPT/HCPCS: 36600; 71010; 80048; 80053; 82550; 82552; 82805; 83735; 83880; 84132; 84484; 85025; 85610; 87641; 93005; 93306; 94002; 94640; 94664; 96374; 96375; J0360; J1650; J1940; J1956; J2930; J7030

== ENCOUNTER → 2017-05-18 | Outpatient (CLI) | payer OTHER ==
[~2017-05-18] MED LIST changes: +ACET650T39 PO; +ALBUAER3 INH; +ASPI325T PO; +FLUT1SPR5 EACH NARE; -GABA600T PO; +GLUCTES27; -HYDR-3516 PO; +HYDR100C PO; -NAPR250T PO; +SYMB160A INH; +VIST50CA PO; +[UNRECOGNIZED DRUG - CODE] SQ
[2017-05-18 09:06] LABS: AUTOMATED NEUTROPHIL # 6.4 TH/MM3 (1.8-7.7); BASOPHIL # 0.1 TH/MM3 (0-0.2); BASOPHIL % 0.9 % (0.0-2.0); EOSINOPHIL # 0.4 TH/MM3 (0-0.4); HEMATOCRIT 41.6 % (39.0-51.0); HEMO FLAGS DIFF FINAL; LYMPH % 16.6 % (9.0-44.0); LYMPHOCYTE # 1.4 TH/MM3 (1.0-4.8); MEAN CELL VOLUME 81.9 FL (80.0-100.0); MEAN CORPUSCULAR HEMOGLOBIN 25.4 PG (27.0-34.0); MONO % 5.5 % (0.0-8.0); PLATELET COUNT 167 TH/MM3 (150-450); RED BLOOD COUNT 5.08 MIL/MM3 (4.50-5.90); RED CELL DISTRIBUTION WIDTH 19.6 % (11.6-17.2); WHITE BLOOD COUNT 8.7 TH/MM3 (4.0-11.0)
[2017-05-18 09:35] LABS: ALT (GPT) 20 U/L (12-78); ANION GAP 4 MEQ/L (5-15); AST (GOT) 19 U/L (15-37); BICARBONATE 32.9 MEQ/L (21.0-32.0); BLOOD UREA NITROGEN 34 MG/DL (7-18); CHLORIDE 100 MEQ/L (98-107); GLOMERULAR FILTRATION RATE 37 ML/MIN (>89); GLUCOSE,FASTING 206 MG/DL (74-99); POTASSIUM 4.8 MEQ/L (3.5-5.1); SODIUM (NA) 137 MEQ/L (136-145)
[2017-05-18 09:40] LABS: ALKALINE PHOSPHATASE 88 U/L (45-117); LDL CHOLESTEROL 72 MG/DL (0-99); TOTAL BILIRUBIN ADULT 0.4 MG/DL (0.2-1.0)
== END ==
LOC: CLAB 07:56
PROVIDERS: ATTEND Family Medicine
DX: E11.9 Type 2 diabetes mellitus without complications (principal); E66.01 Morbid (severe) obesity due to excess calories; N19 Unspecified kidney failure
CPT/HCPCS: 36415; 80053; 80061; 85025

== ENCOUNTER 2017-08-03 00:02 | Inpatient (IN) | payer OTHER ==
[2017-08-03] VITALS (14 sets, daily range): BP systolic 99–179; BP diastolic 51–79; PULSE 55–72; RESP 16–26; TEMP 97.7–98.9; O2SAT 86–98
[~2017-08-03] VITALS: Ht 162.6 cm; Wt 182.0 kg
[~2017-08-03 00:02] MED LIST changes: +ACET1TAB63 PO; -ACET650T39 PO; -ALBUAER3 INH; +ASPI-183 PO; -ASPI325T PO; -OMEP20TA PO; +OMEP20TA93 PO; -VIST50CA PO
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
[2017-08-03 01:46] LABS: AUTOMATED NEUTROPHIL # 6.2 TH/MM3 (1.8-7.7); BASOPHIL # 0.1 TH/MM3 (0-0.2); BASOPHIL % 0.9 % (0.0-2.0); EOSINOPHIL # 0.3 TH/MM3 (0-0.4); EOSINOPHIL % 3.3 % (0.0-4.0); HEMATOCRIT 40.3 % (39.0-51.0); HEMO FLAGS DIFF FINAL; LYMPHOCYTE # 2.2 TH/MM3 (1.0-4.8); MEAN CELL VOLUME 82.9 FL (80.0-100.0); MEAN CORPUSCULAR HEMOGLOBIN 24.8 PG (27.0-34.0); MONO % 8.4 % (0.0-8.0); NEUT % 64.4 % (16.0-70.0); PLATELET COUNT 193 TH/MM3 (150-450); RED BLOOD COUNT 4.86 MIL/MM3 (4.50-5.90); RED CELL DISTRIBUTION WIDTH 16.7 % (11.6-17.2); WHITE BLOOD COUNT 9.6 TH/MM3 (4.0-11.0)
[2017-08-03 01:51] LABS: MEAN CORPUSCULAR HGB CONC 29.9 % (32.0-36.0)
[2017-08-03 02:00] LABS: APTT (PATIENT) 25.1 SEC (24.3-30.1); PROTHROMBIN TIME - PATIENT 10.8 SEC (9.8-11.6)
[2017-08-03 02:09] LABS: ALKALINE PHOSPHATASE 110 U/L (45-117); ALT (GPT) 22 U/L (12-78); ANION GAP 3 MEQ/L (5-15); AST (GOT) 25 U/L (15-37); BICARBONATE 36.6 MEQ/L (21.0-32.0); BLOOD UREA NITROGEN 23 MG/DL (7-18); CHLORIDE 100 MEQ/L (98-107); GLOMERULAR FILTRATION RATE 44 ML/MIN (>89); SODIUM (NA) 140 MEQ/L (136-145); TOTAL BILIRUBIN ADULT 0.4 MG/DL (0.2-1.0)
[2017-08-03 02:11] LABS: POTASSIUM 4.6 MEQ/L (3.5-5.1)
[2017-08-03] MEDS ORDERED: VANCOMYCIN INJ 1,000 MG in SODIUM CHLOR 0.9% 250 ML INJ 250 ML IV ONE (02:30)
[2017-08-03] MEDS ORDERED: KETOROLAC TROMETHAMINE 30 MG/ML (IVP) VIAL IV PUSH ONE (02:30)
[2017-08-03] MEDS ORDERED: GLUCAGON 1 MG/ML VIAL IM PRN (03:15)
[2017-08-03] MEDS ORDERED: Vancomycin Consult Pharmacy 1 EA OTHER SCH (03:15)
[2017-08-03] MEDS ORDERED: NALOXONE HCL 0.4 MG/ML AMP IV PUSH PRN (03:15)
[2017-08-03] MEDS ORDERED: SODIUM CHLORIDE 0.9% FLUSH 10 ML FLUSH IV FLUSH PRN (03:15)
[2017-08-03] MEDS ORDERED: DEXTROSE 50% IN WATER 50 ML VIAL(D50) IV PUSH PRN (03:15)
[2017-08-03] MEDS: RESP: ALBUTEROL 2.5 MG/IPRATROPIUM 0.5 MG NEB (SCH) NEB ×5 (03:30→19:14)
[2017-08-03] MEDS: PIPERACIL-TAZO 4.5 GM PREMIX 100 ML IV SCH ×4 (04:34→22:07)
[2017-08-03] MEDS ORDERED: VANCOMYCIN 1,500 MG/NS 500 ML IV ONE ×2 (05:00)
--- NOTE | 2017-08-03 07:32 | EKG ---
Date Performed: 08/03/2017 Time Performed: 01:41:56 PTAGE: 56 years EKG: SINUS BRADYCARDIA MODERATE INTRAVENTRICULAR CONDUCTION DELAY BORDERLINE ECG No significant change from prior electrocardiogram. PREVIOUS TRACING : 03/20/2017 08.23 DOCTOR: Rigo Gore Interpretating Date/Time 08/03/2017 07:32:09
[2017-08-03] MEDS ORDERED: NOVOLOGP2 SQ (08:58)
[2017-08-03] MEDS ORDERED: NON-FORMULARY DRUG (Fluticasone-Salmeterol Inh (Advair Diskus Inh) 1 PUFF) INH SCH (09:00)
[2017-08-03] MEDS ORDERED: LISINOPRIL 20 MG TAB PO SCH (09:00)
[2017-08-03] MEDS ORDERED: ACETAMINOPHEN/HYDROcodone 325 MG/5 MG TAB PO PRN (09:00)
[2017-08-03] MEDS: CARVEDILOL 12.5 MG TAB PO SCH ×2 (09:20→21:00)
[2017-08-03] MEDS: PANTOPRAZOLE SOD 20 MG DELAYED RELEASE TAB PO SCH ×2 (09:20→22:03)
[2017-08-03] MEDS: AMIODARONE 200 MG TAB PO SCH ×2 (09:21→22:03)
[2017-08-03] MEDS: BUMETANIDE 1 MG TAB PO SCH (09:21)
[2017-08-03] MEDS: ALLOPURINOL 100 MG TAB PO SCH (09:21)
[2017-08-03] MEDS: ASPIRIN 325 MG TAB PO SCH (09:21)
[2017-08-03] MEDS: CLOPIDOGREL 75 MG TAB PO SCH (09:21)
[2017-08-03] MEDS: PARoxetine HCL 20 MG TAB PO SCH (09:22)
[2017-08-03] MEDS: INSULIN DETEMIR 100 UNITS/ML VIAL SQ SCH ×2 (09:44→22:06)
[2017-08-03] MEDS: ACETAMINOPHEN/HYDROcodone 325 MG/10 MG TAB PO PRN ×2 (09:44→20:02)
[2017-08-03] MEDS: FLUTICASONE PROPIONATE 50 MCG/ACT 16 GM NASAL SPRAY NASAL SCH ×2 (10:54→22:00)
[2017-08-03] MEDS: SODIUM CHLORIDE 0.9% FLUSH 10 ML FLUSH IV FLUSH SCH ×2 (10:54→22:00)
[2017-08-03] MEDS: BUDESONIDE-FORMOTEROL 160/4.5 MCG INHALER INH SCH ×2 (10:54→21:59)
[2017-08-03] MEDS: INSULIN ASPART SUPPLEMENTAL SCALE SQ SCH ×3 (12:50→22:06)
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
[2017-08-03] MEDS: SENNOSIDES 8.6 MG TAB PO SCH (22:03)
[2017-08-03] MEDS: PRAVASTATIN SOD 80 MG TAB PO SCH (22:03)
[2017-08-03] MEDS: HEPARIN SODIUM - SQ 10,000 UNITS/ML VIAL SQ SCH (22:06)
[2017-08-04] VITALS (9 sets, daily range): BP systolic 96–118; BP diastolic 53–66; PULSE 54–71; RESP 15–24; TEMP 97.6–98.5; O2SAT 92–97
[2017-08-04] MEDS ORDERED: VANCOMYCIN INJ 2,000 MG in SODIUM CHLORID 0.9% 500 ML INJ 500 ML IV SCH ×2
[2017-08-04] MEDS: PIPERACIL-TAZO 4.5 GM PREMIX 100 ML IV SCH ×2 (03:01→09:13)
[2017-08-04] MEDS: HEPARIN SODIUM - SQ 10,000 UNITS/ML VIAL SQ SCH ×3 (05:40→22:10)
[2017-08-04] MEDS: ACETAMINOPHEN/HYDROcodone 325 MG/10 MG TAB PO PRN ×4 (05:40→22:08)
[2017-08-04] MEDS: INSULIN ASPART SUPPLEMENTAL SCALE SQ SCH ×4 (08:00→22:12)
[2017-08-04] MEDS: RESP: ALBUTEROL 2.5 MG/IPRATROPIUM 0.5 MG NEB (SCH) NEB ×3 (08:12→19:03)
[2017-08-04 08:39] LABS: AUTOMATED NEUTROPHIL # 6.4 TH/MM3 (1.8-7.7); BASOPHIL # 0.1 TH/MM3 (0-0.2); EOSINOPHIL # 0.3 TH/MM3 (0-0.4); EOSINOPHIL % 3.6 % (0.0-4.0); HEMO FLAGS DIFF FINAL; LYMPH % 12.5 % (9.0-44.0); MEAN CELL VOLUME 84.7 FL (80.0-100.0); MEAN CORPUSCULAR HEMOGLOBIN 25.6 PG (27.0-34.0); MEAN CORPUSCULAR HGB CONC 30.3 % (32.0-36.0); MONO % 6.6 % (0.0-8.0); NEUT % 76.3 % (16.0-70.0); PLATELET COUNT 176 TH/MM3 (150-450); RED BLOOD COUNT 4.49 MIL/MM3 (4.50-5.90); RED CELL DISTRIBUTION WIDTH 16.7 % (11.6-17.2); WHITE BLOOD COUNT 8.4 TH/MM3 (4.0-11.0)
[2017-08-04] MEDS: INSULIN DETEMIR 100 UNITS/ML VIAL SQ SCH ×2 (09:00→22:11)
[2017-08-04] MEDS: ALLOPURINOL 100 MG TAB PO SCH (09:13)
[2017-08-04] MEDS: PANTOPRAZOLE SOD 20 MG DELAYED RELEASE TAB PO SCH ×2 (09:13→22:06)
[2017-08-04] MEDS: CLOPIDOGREL 75 MG TAB PO SCH (09:13)
[2017-08-04] MEDS: PARoxetine HCL 20 MG TAB PO SCH (09:13)
[2017-08-04] MEDS: ASPIRIN 325 MG TAB PO SCH (09:13)
[2017-08-04] MEDS: AMIODARONE 200 MG TAB PO SCH ×2 (09:13→22:05)
[2017-08-04] MEDS: FLUTICASONE PROPIONATE 50 MCG/ACT 16 GM NASAL SPRAY NASAL SCH ×2 (09:14→22:04)
[2017-08-04] MEDS: SODIUM CHLORIDE 0.9% FLUSH 10 ML FLUSH IV FLUSH SCH ×2 (09:14→21:00)
[2017-08-04] MEDS: CARVEDILOL 12.5 MG TAB PO SCH ×2 (09:14→22:06)
[2017-08-04] MEDS: BUDESONIDE-FORMOTEROL 160/4.5 MCG INHALER INH SCH ×2 (09:15→22:04)
[2017-08-04] MEDS: BUMETANIDE 1 MG TAB PO SCH (09:15)
[2017-08-04 10:03] LABS: BICARBONATE 32.4 MEQ/L (21.0-32.0)
[2017-08-04 10:09] LABS: POTASSIUM 5.5 MEQ/L (3.5-5.1)
[2017-08-04] MEDS ORDERED: SODIUM CHLOR 0.9% 1000 ML INJ 1,000 ML IV SCH (13:00)
[2017-08-04] MEDS ORDERED: SODIUM POLYSTYRENE SULFONATE SUSP 15 GM/60 ML CUP PO ONE (13:00)
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
[2017-08-04] MEDS ORDERED: PIPERACIL-TAZO 3.375 GM PREMIX 50 ML IV SCH (16:00)
[2017-08-04] MEDS: LACTOBACILLUS ACIDOPHILUS TAB PO SCH (18:07)
[2017-08-04] MEDS: SENNOSIDES 8.6 MG TAB PO SCH (21:00)
[2017-08-04] MEDS: PRAVASTATIN SOD 80 MG TAB PO SCH (22:06)
[2017-08-05] VITALS (15 sets, daily range): BP systolic 110–144; BP diastolic 53–83; PULSE 65–74; RESP 15–20; TEMP 95.8–98.4; O2SAT 86–98
[2017-08-05] MEDS: RESP: ALBUTEROL 2.5 MG/IPRATROPIUM 0.5 MG NEB (PRN) NEB (03:59)
[2017-08-05] MEDS: ACETAMINOPHEN/HYDROcodone 325 MG/10 MG TAB PO PRN (04:29)
[2017-08-05] MEDS: HEPARIN SODIUM - SQ 10,000 UNITS/ML VIAL SQ SCH ×2 (05:45→13:37)
[2017-08-05] MEDS: RESP: ALBUTEROL 2.5 MG/IPRATROPIUM 0.5 MG NEB (SCH) NEB ×3 (07:46→21:22)
[2017-08-05] MEDS: INSULIN ASPART SUPPLEMENTAL SCALE SQ SCH ×4 (08:00→21:00)
[2017-08-05] MEDS ORDERED: ONDANSETRON HCL 4 MG/2 ML VIAL IV PUSH PRN (08:00)
[2017-08-05] MEDS: LACTOBACILLUS ACIDOPHILUS TAB PO SCH ×3 (08:45→16:58)
[2017-08-05] MEDS: ALLOPURINOL 100 MG TAB PO SCH (08:45)
[2017-08-05] MEDS: ASPIRIN 325 MG TAB PO SCH (08:45)
[2017-08-05] MEDS: PARoxetine HCL 20 MG TAB PO SCH (08:45)
[2017-08-05] MEDS: CLOPIDOGREL 75 MG TAB PO SCH (08:45)
[2017-08-05] MEDS: PANTOPRAZOLE SOD 20 MG DELAYED RELEASE TAB PO SCH (08:45)
[2017-08-05] MEDS: SODIUM CHLORIDE 0.9% FLUSH 10 ML FLUSH IV FLUSH SCH (08:45)
[2017-08-05] MEDS: AMIODARONE 200 MG TAB PO SCH (08:45)
[2017-08-05] MEDS: CARVEDILOL 12.5 MG TAB PO SCH (08:45)
[2017-08-05] MEDS: INSULIN DETEMIR 100 UNITS/ML VIAL SQ SCH ×2 (08:46→21:00)
[2017-08-05] MEDS: FLUTICASONE PROPIONATE 50 MCG/ACT 16 GM NASAL SPRAY NASAL SCH (08:46)
[2017-08-05] MEDS: BUDESONIDE-FORMOTEROL 160/4.5 MCG INHALER INH SCH (08:46)
[2017-08-05 09:33] LABS: BICARBONATE 34.4 MEQ/L (21.0-32.0); MAGNESIUM 2.3 MG/DL (1.5-2.5); POTASSIUM 4.8 MEQ/L (3.5-5.1)
[2017-08-05] MEDS ORDERED: SODIUM CHLOR 0.9% 1000 ML INJ 1,000 ML IV SCH (11:00)
[2017-08-05] MEDS ORDERED: CLINDAMYCIN INJ 600 MG in SODIUM CHLORIDE 0.9% INJ 46 ML IV SCH (12:00)
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
[2017-08-05] MEDS ORDERED: ACETAMINOPHEN 500 MG CPLT PO PRN (14:15)
[2017-08-05 14:31] LABS: BLOOD GAS BASE EXCESS 5.8 mmol/L (-2-2); BLOOD GAS CARBOXYHEMOGLOBIN 1.3 % (0-4); BLOOD GAS HCO3 35 mmol/L (22-26); BLOOD GAS METHEMOGLOBIN 1.3 % (0-2); BLOOD GAS O2 HGB SATURATION 89 % (90-100); BLOOD GAS PCO2 116 mmHg (38-42); BLOOD GAS PO2 71 mmHG (61-120); TEMP CORR TO 98.6
[2017-08-05 14:32] LABS: CRITICAL VALUE YES; DRAW SITE RT RADIAL; LITER FLOW 3 L/M; NUMBER OF ARTERIAL PUNCTURES 1; OXYGEN DEVICE NASAL CANNULA; STAT NO; ULNAR PULSE PRESENT
[2017-08-05] MEDS ORDERED: FLUMAZENIL 0.5 MG/5 ML VIAL IV PUSH ONE (15:15)
--- NOTE | 2017-08-05 15:24 | RADRPT ---
EXAM DATE/TIME: 08/05/2017 14:55 [facility] COMPARISON: CHEST SINGLE AP, March 19, 2017, 3:39. INDICATIONS : Shortness of breath. MEDICAL HISTORY : Chronic obstructive pulmonary disease. SURGICAL HISTORY : CABG. Pacemaker ENCOUNTER: Initial ACUITY: 1 day PAIN SCORE: 0/10 LOCATION: Bilateral chest FINDINGS: A single view of the chest demonstrates lungs to be hypoinflated but clear of acute infiltrate. Heart size is prominent but appears to be well compensated. Right subclavian unipolar pacer is radiographi aleks intact. Median sternotomy wires and, coronary ostial rings and surgical clips characteristic of prior CABG. CONCLUSION: 1. Hypoinflation with no acute infiltrate. 2. Compensated cardiomegaly. 3. Stable postsurgical changes. Jeffry Akhtar MD on August 05, 2017 at 15:22 Board Certified Radiologist. This report was verified electronically.
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
[2017-08-05] MEDS ORDERED: Vancomycin Consult Pharmacy 1 EA OTHER SCH (16:30)
[2017-08-05] MEDS ORDERED: CHLORHEXIDINE GLUCONATE 2 % 1 PACK (2 CLOTHS)(extra cloths) TOPICAL PRN (16:45)
[2017-08-05] MEDS: methylPREDNISolone SOD SUCC 125 MG/2 ML VIAL IV PUSH SCH (16:47)
[2017-08-05] MEDS ORDERED: VANCOMYCIN INJ 1,250 MG in SODIUM CHLOR 0.9% 250 ML INJ 250 ML IV ONE (17:00)
[2017-08-05 17:10] LABS: BLOOD GAS BASE EXCESS 5.4 mmol/L (-2-2); BLOOD GAS CARBOXYHEMOGLOBIN 1.3 % (0-4); BLOOD GAS HCO3 33 mmol/L (22-26); BLOOD GAS O2 HGB SATURATION 93 % (90-100); BLOOD GAS OXYGEN CONTENT 15.9 Vol % (12.0-20.0); BLOOD GAS PCO2 94 mmHg (38-42); BLOOD GAS PO2 95 mmHg (61-120); BLOOD GAS TOTAL HGB 12.1 G/DL (12.0-16.0); CRITICAL VALUE YES; DRAW SITE RT BRACHIAL; FIO2 35 %; NUMBER OF ARTERIAL PUNCTURES 1; OXYGEN DEVICE BIPAP 18IPAP/5EPAP; STAT NO; TEMP CORR TO 98.6
[2017-08-05 20:29] LABS: BLOOD GAS BASE EXCESS 6.2 mmol/L (-2-2); BLOOD GAS CARBOXYHEMOGLOBIN 1.4 % (0-4); BLOOD GAS HCO3 34 mmol/L (22-26); BLOOD GAS METHEMOGLOBIN 1.8 % (0-2); BLOOD GAS O2 HGB SATURATION 82 % (90-100); BLOOD GAS PCO2 95 mmHg (38-42); BLOOD GAS PO2 56 mmHg (61-120); BLOOD GAS TOTAL HGB 12.2 G/DL (12.0-16.0); CRITICAL VALUE YES; DRAW SITE RT RADIAL; FIO2 30 %; NUMBER OF ARTERIAL PUNCTURES 1; OXYGEN DEVICE BIPAP; STAT NO; TEMP CORR TO 98.6; ULNAR PULSE PRESENT; VENT SETTINGS IPAP18/EPAP8
[2017-08-05] MEDS ORDERED: MUPIROCIN 2% OINT 1 APPLIC/GM SYR NASAL SCH (21:00)
[2017-08-05] MEDS ORDERED: PHARMACY ORDERED LAB ONE (23:45)
[2017-08-06] VITALS (13 sets, daily range): BP systolic 96–162; BP diastolic 51–73; PULSE 69–88; RESP 16–24; TEMP 97.8–98.8; O2SAT 92–97
[2017-08-06] MEDS: RESP: ALBUTEROL 2.5 MG/IPRATROPIUM 0.5 MG NEB (PRN) NEB ×2 (00:37→08:11)
[2017-08-06] MEDS: methylPREDNISolone SOD SUCC 125 MG/2 ML VIAL IV PUSH SCH ×3 (00:46→12:55)
[2017-08-06] MEDS: AMIODARONE 200 MG TAB PO SCH ×2 (00:47→09:25)
[2017-08-06] MEDS: SENNOSIDES 8.6 MG TAB PO SCH (00:47)
[2017-08-06] MEDS: PRAVASTATIN SOD 80 MG TAB PO SCH (00:47)
[2017-08-06] MEDS: PANTOPRAZOLE SOD 20 MG DELAYED RELEASE TAB PO SCH ×2 (00:47→09:25)
[2017-08-06] MEDS: HEPARIN SODIUM - SQ 10,000 UNITS/ML VIAL SQ SCH ×3 (00:47→12:55)
[2017-08-06] MEDS: CARVEDILOL 12.5 MG TAB PO SCH ×2 (00:47→09:39)
[2017-08-06] MEDS: SODIUM CHLORIDE 0.9% FLUSH 10 ML FLUSH IV FLUSH SCH ×2 (00:48→09:30)
[2017-08-06] MEDS: BUDESONIDE-FORMOTEROL 160/4.5 MCG INHALER INH SCH ×2 (00:50→09:28)
[2017-08-06] MEDS: FLUTICASONE PROPIONATE 50 MCG/ACT 16 GM NASAL SPRAY NASAL SCH ×2 (00:50→09:28)
[2017-08-06] MEDS ORDERED: CHLORHEXIDINE GLUCONATE 2 % 1 PACK (2 CLOTHS)(taper/protocol) TOPICAL SCH (04:00)
[2017-08-06 05:09] LABS: BLOOD GAS BASE EXCESS 5.7 mmol/L (-2-2); BLOOD GAS CARBOXYHEMOGLOBIN 1.2 % (0-4); BLOOD GAS HCO3 34 mmol/L (22-26); BLOOD GAS METHEMOGLOBIN 1.8 % (0-2); BLOOD GAS O2 HGB SATURATION 89 % (90-100); BLOOD GAS OXYGEN CONTENT 14.9 Vol % (12.0-20.0); BLOOD GAS PCO2 92 mmHg (38-42); BLOOD GAS PO2 72 mmHg (61-120); CRITICAL VALUE YES; FIO2 40 %; OXYGEN DEVICE BIPAP; TEMP CORR TO 98.6; VENT SETTINGS IPAP18/EPAP5
[2017-08-06 05:10] LABS: DRAW SITE LT RADIAL; NUMBER OF ARTERIAL PUNCTURES 2; STAT NO; ULNAR PULSE PRESENT
[2017-08-06 06:56] LABS: BICARBONATE 30.5 MEQ/L (21.0-32.0); MAGNESIUM 2.4 MG/DL (1.5-2.5); POTASSIUM 5.4 MEQ/L (3.5-5.1)
[2017-08-06] MEDS ORDERED: INSULIN HUMAN REGULAR 1,000 UNITS/10 ML VIAL IV PUSH ONE (08:15)
[2017-08-06] MEDS ORDERED: DEXTROSE 50% IN WATER 50 ML SYRINGE IV PUSH ONE (08:15)
[2017-08-06] MEDS ORDERED: SODIUM POLYSTYRENE SULFONATE SUSP 15 GM/60 ML CUP PO ONE (08:15)
--- NOTE | 2017-08-06 08:23 | HHI.CCPN ---
Subjective Remarks/Hospital Course This is a 56-year-old male with a past medical history significant for coronary artery disease, CABG 5, cardiomyopathy, CHF, diabetes, history of CVA, hypertension, CKD stage III, dyslipidemia, COPD with chronic respiratory failure on 3 L of oxygen, TANA noncompliant with CPAP compliant who presented to [facility] with complaints of swelling, pain, warmth and redness of the bilateral lower extremities the left more so than the right going on for 1 week. He was admitted to hospitalist service for cellulitis, and infectious disease was consulted. Initially placed on vancomycin and Zosyn, with wound culture growing MRSA and Zosyn was discontinued. Today vancomycin was changed to clindamycin by hospitalist due to renal failure Critical care medicine was consulted today for altered mentation and severe hypercapnic respiratory failure. Patient has history of chronic hypoxemic and hypercapnic respiratory failure and is on 3 L nasal cannula at home. He is noncompliant with CPAP machine. ABG showed a pH of 7.11 PCO2 116 and PO2 of 89. Patient was placed on BiPAP and critical care medicine was consulted. I evaluated the patient in the ICU. He is somnolent on BiPAP 15/5, with small TV but wakes up easily. I increased the BiPAP setting to 18/5. I explained to the patient that if his CO2 narcosis and acidosis is not improving he will need endotracheal intubation and he is agreeable to intubation if it is a life- threatening situation. Patient apparently received Archer at 4 AM today, patient was given Narcan without any improvement SUBJ 08/06/17: Remains on BiPAP level of consciousness appears to be slightly improved. Have difficulty tolerating BiPAP. Mildly hyperkalemic, Kayexalate IV insulin and D50 ordered. ABG today 04/12/92. CXR pending Objective Vital Signs Date Time Temp Pulse Resp B/P (MAP) Pulse Ox O2 Delivery O2 Flow Rate FiO2 08/06/17 06:00 71 08/06/17 04:00 96 Bi-Pap 40 08/06/17 04:00 98.1 16 08/05/17 07:47 3.00 Intake and Output 08/06/17 08/06/17 08/07/17 08:00 16:00 00:00 Output Total 1300 ml Balance -1300 ml Result Diagram: 08/04/17 0715 08/06/17 0559 Other Results Microbiology Date/Time Source Procedure Growth Status 08/03/17 16:00 Wound Leg Gram Stain - Final Complete 08/03/17 16:00 Wound Culture - Final S. Aureus Mrsa Complete Laboratory Tests Test 08/05/17 14:21 08/05/17 17:00 08/05/17 20:22 08/06/17 04:50 Blood Gas Puncture Site RT RADIAL RT BRACHIAL RT RADIAL LT RADIAL Blood Gas Patient Temperature 98.6 98.6 98.6 98.6 Blood Gas HCO3 35 mmol/L (22-26) 33 mmol/L (22-26) 34 mmol/L (22-26) 34 mmol/L (22-26) Blood Gas Base Excess 5.8 mmol/L (-2-2) 5.4 mmol/L (-2-2) 6.2 mmol/L (-2-2) 5.7 mmol/L (-2-2) Blood Gas Oxygen Saturation 89 % (90-100) 93 % (90-100) 82 % (90-100) 89 % ( 90-100) Arterial Blood pH 7.11 (7.380-7.420) 7.18 (7.380-7.420) 7.18 (7.380-7.420) 7.19 (7.380-7.420) Arterial Blood Partial Pressure CO2 116 mmHg (38-42) 94 mmHg (38-42) 95 mmHg (38-42) 92 mmHg (38-42) Arterial Blood Partial Pressure O2 71 mmHG (61-120) 95 mmHg (61-120) 56 mmHg (61-120) 72 mmHg (61-120) Arterial Blood Oxygen Content 15.0 Vol % (12.0-20.0) 15.9 Vol % (12.0-20.0) 14.0 Vol % (12.0-20.0) 14.9 Vol % (12.0-20.0) Arterial Blood Carboxyhemoglobin 1.3 % (0-4) 1.3 % (0-4) 1.4 % (0-4) 1.2 % (0-4) Arterial Blood Methemoglobin 1.3 % (0-2) 2.0 % (0-2) 1.8 % (0-2) 1.8 % (0-2) Blood Gas Hemoglobin 12.0 G/DL (12.0-16.0) 12.1 G/DL (12.0-16.0) 12.2 G/DL (12.0-16.0) 12.0 G/DL (12.0-16.0) Oxygen Delivery Device NASAL CANNULA BIPAP 18IPAP/5EPAP BIPAP BIPAP Blood Gas Liter Flow 3 L/M Blood Gas Inspired Oxygen 35 % 30 % 40 % Blood Gas Ventilator Setting IPAP18/EPAP8 IPAP18/EPAP5 Imaging Chest x-ray shows no acute infiltrate Objective Remarks GENERAL: Morbidly obese patient, somnolent on BiPAP SKIN: Cellulitis bilateral lower extremities with few open wounds HEAD: Normocephalic. Atraumatic EYES: Pupils equal round and reactive left eye. s/p Right eye status post enucleation/prosthesis. ENT: Uvula midline. Airway patent. Edentulous NECK: Trachea midline. No lymphadenopathy. Supple, nontender CARDIOVASCULAR: Distant heart sounds without murmurs, gallops, or rubs. Well- healed CABG scar RESPIRATORY: On BIPAP, air entry is diminished bilaterally with mild expiratory wheezing GASTROINTESTINAL: Abdomen soft, protuberant, non-tender. MUSCULOSKELETAL: Bilateral extremities edematous with cellulitic changes NEUROLOGICAL: Patient is awake on BiPAP. He wakes up easily but answers questions. Moves all extremities to command. Restless Procedures none A/P Assessment and Plan 56-year-old male with CAD, cardiomyopathy, CHF, diabetes, hypertension, CKD stage III, COPD with chronic respiratory failure who was admitted to hospitalist service with severe lower extremity cellulitis. Now with severe hypercapnic respiratory failure most likely from COPD exacerbation. Patient is critically ill currently on BiPAP may need endotracheal intubation A/P NEURO: Acute metabolic encephalopathy/CO2 narcosis - Hold all sedating medication - Received Narcan without any improvement RESP: Acute on chronic hypercapnic respiratory failure Acute COPD exacerbation Chronic hypoxemic respiratory failure on 3 L nasal cannula COPD, Asthma TANA - Currently on BiPAP 18 over 5, continue on BiPAP with intermittent breaks - ABG today 7.. - Patient is aware that he may need endotracheal intubation if not improved - IV Solu-Medrol 60 mg every 8 hours - DuoNeb every 4 hours scheduled and when necessary. Symbicort 2 puff twice a day. Add Spiriva - Monitor closely for airway protection CVS: CAD status post CABG Cardiomyopathy History of CHF - Continue home cardiac meds including amiodarone aspirin carvedilol and Plavix - Hold lisinopril, continue Bumex daily - No evidence of decompensated heart failure at this time GI: - Keep nothing by mouth at this time except meds, IV Protonix : CKD stage III Hyperkalemia - Monitor BUN/creatinine closely, give Kayexalate IV insulin and dextrose - Repeat CMP at 2 PM - Nephrology consult if worsening renal failure ID: Cellulitis bilateral lower extremities left greater than right. - Continue IV vancomycin, wound cx growing MRSA - ID following - C Diff pending ENDO: DM, type 2 - Levemir 10 units BID - Accu-Cheks - Insulin sliding scale Prophylaxis - Heparin sq, Protonix CCT 45 Patient remains and hypercarbic respiratory failure despite high BiPAP settings. He is at high risk of decompensation and need for endotracheal intubation. Remains critically ill continue ICU care Shanel Islas MD Aug 06, 2017 08:23
[2017-08-06] MEDS ORDERED: TIOTROPIUM BROMIDE 18 MCG INH INH SCH (09:00)
[2017-08-06] MEDS: LACTOBACILLUS ACIDOPHILUS TAB PO SCH ×3 (09:24→17:26)
[2017-08-06] MEDS: PARoxetine HCL 20 MG TAB PO SCH (09:24)
[2017-08-06] MEDS: ASPIRIN 325 MG TAB PO SCH (09:24)
[2017-08-06] MEDS: CLOPIDOGREL 75 MG TAB PO SCH (09:24)
[2017-08-06] MEDS: INSULIN DETEMIR 100 UNITS/ML VIAL SQ SCH (09:25)
[2017-08-06] MEDS: ALLOPURINOL 100 MG TAB PO SCH (09:25)
--- NOTE | 2017-08-06 09:29 | RADRPT ---
EXAM DATE/TIME: 08/06/2017 09:04 [facility] COMPARISON: CHEST SINGLE AP, August 05, 2017, 14:55. INDICATIONS : Respiratory disease MEDICAL HISTORY : Chronic obstructive pulmonary disease. SURGICAL HISTORY : CABG. Pacemaker. ENCOUNTER: Subsequent ACUITY: 2 days PAIN SCORE: 0/10 LOCATION: chest FINDINGS: The heart is mildly enlarged. Post surgical changes from prior CABG are noted. Right-sided AICD devic es in place. There is generalized vascular congestion no consolidating airspace disease. CONCLUSION: 1. Cardiomegaly with vascular congestive changes but no evidence of pulmonary edema or consolidating air space disease. 2. Status post CABG. 3. Right-sided AICD. Aram Zeng MD on August 06, 2017 at 9:26 Board Certified Radiologist. This report was verified electronically.
[2017-08-06] MEDS: INSULIN ASPART SUPPLEMENTAL SCALE SQ SCH ×3 (09:38→17:00)
[2017-08-06 09:51] LABS: BLOOD GAS BASE EXCESS 5.4 mmol/L (-2-2); BLOOD GAS CARBOXYHEMOGLOBIN 1.3 % (0-4); BLOOD GAS HCO3 32 mmol/L (22-26); BLOOD GAS METHEMOGLOBIN 1.9 % (0-2); BLOOD GAS O2 HGB SATURATION 87 % (90-100); BLOOD GAS OXYGEN CONTENT 14.8 Vol % (12.0-20.0); BLOOD GAS PCO2 75 mmHg (38-42); BLOOD GAS PO2 69 mmHg (61-120); BLOOD GAS TOTAL HGB 12.1 G/DL (12.0-16.0); TEMP CORR TO 98.6
[2017-08-06 09:52] LABS: CRITICAL VALUE YES; DRAW SITE RT RADIAL; LITER FLOW 3 L/M; NUMBER OF ARTERIAL PUNCTURES 1; OXYGEN DEVICE NASAL CANNULA; STAT NO; ULNAR PULSE PRESENT
[2017-08-06] MEDS: RESP: ALBUTEROL 2.5 MG/IPRATROPIUM 0.5 MG NEB (SCH) NEB ×2 (11:43→15:23)
[2017-08-06] MEDS ORDERED: VANCOMYCIN INJ 2,000 MG in SODIUM CHLORID 0.9% 500 ML INJ 500 ML IV ONE (12:00)
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
[2017-08-06 13:57] LABS: C. DIFF EPI 027 PRESUMPTIVE NEGATIVE (NEGATIVE)
[2017-08-06] MEDS ORDERED: RESP: ALBUTEROL 2.5 MG/IPRATROPIUM 0.5 MG NEB (SCH) NEB (14:00)
[2017-08-06 16:55] LABS: ANION GAP 7 MEQ/L (5-15); AST (GOT) 27 U/L (15-37); BICARBONATE 31.4 MEQ/L (21.0-32.0); BLOOD UREA NITROGEN 31 MG/DL (7-18); CHLORIDE 97 MEQ/L (98-107); GLOMERULAR FILTRATION RATE 49 ML/MIN (>89); SODIUM (NA) 135 MEQ/L (136-145)
[2017-08-06 16:56] LABS: ALT (GPT) 30 U/L (12-78)
[2017-08-06 16:57] LABS: ALKALINE PHOSPHATASE 103 U/L (45-117); TOTAL BILIRUBIN ADULT 0.6 MG/DL (0.2-1.0)
--- NOTE | 2017-08-06 21:31 | PD.AMA ---
Against Medical Advice Note Discharge Disposition: Against Medical Advice Pt Condition on Discharge: Guarded AMA Statement Patient Eh Jackson has decided to leave the hospital against medical advice. This patient has the capacity to refuse care and understands the risks of leaving, including permanent disability and/or , and has had an opportunity to ask questions about his condition. The patient has been informed that he may return for care at any time, and follow up has been arranged/ advised. Matilde Regalado Aug 06, 2017 21:31
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
== END 2017-08-06 20:45 | disposition left against medical advice (07) | DRG 602 ==
LOC: NEPC 00:02 → NEDA 03:15 → NEDH 06:45 → NEPHCDU 13:01 → OBSVTOIN 08-05 15:30 → HIME 08-05 15:55
PROVIDERS: ADMIT Internal Medicine; ATTEND Internal Medicine
PROC: 5A09357 Assistance with Respiratory Ventilation, Less than 24 Consecutive Hours, Continuous Positive Airway Pressure (ICD-10-PCS; principal; 2017-08-05)
DX: L03.115 Cellulitis of right lower limb (principal); J96.22 Acute and chronic respiratory failure with hypercapnia; J96.21 Acute and chronic respiratory failure with hypoxia; G93.41 Metabolic encephalopathy; N17.9 Acute kidney failure, unspecified; I42.9 Cardiomyopathy, unspecified; E11.22 Type 2 diabetes mellitus with diabetic chronic kidney disease; I50.9 Heart failure, unspecified; I13.0 Hypertensive heart and chronic kidney disease with heart failure and stage 1 through stage 4 chronic kidney disease, or unspecified chronic kidney disease; N18.3 Chronic kidney disease, stage 3 (moderate); Z68.44 Body mass index [BMI] 60.0-69.9, adult; J44.1 Chronic obstructive pulmonary disease with (acute) exacerbation; L03.116 Cellulitis of left lower limb; E11.59 Type 2 diabetes mellitus with other circulatory complications; Z99.81 Dependence on supplemental oxygen; E66.01 Morbid (severe) obesity due to excess calories; I25.10 Atherosclerotic heart disease of native coronary artery without angina pectoris; I48.91 Unspecified atrial fibrillation; I25.2 Old myocardial infarction; K21.9 Gastro-esophageal reflux disease without esophagitis; E78.5 Hyperlipidemia, unspecified; M10.9 Gout, unspecified; E11.649 Type 2 diabetes mellitus with hypoglycemia without coma; E11.65 Type 2 diabetes mellitus with hyperglycemia; E87.5 Hyperkalemia; R19.7 Diarrhea, unspecified; M19.90 Unspecified osteoarthritis, unspecified site; G47.33 Obstructive sleep apnea (adult) (pediatric); F31.9 Bipolar disorder, unspecified; F40.240 Claustrophobia; F41.9 Anxiety disorder, unspecified; B95.62 Methicillin resistant Staphylococcus aureus infection as the cause of diseases classified elsewhere; Z79.4 Long term (current) use of insulin; Z86.14 Personal history of Methicillin resistant Staphylococcus aureus infection; Z86.73 Personal history of transient ischemic attack (TIA), and cerebral infarction without residual deficits; Z87.891 Personal history of nicotine dependence; Z88.5 Allergy status to narcotic agent; Z91.19 Patient's noncompliance with other medical treatment and regimen; Z95.1 Presence of aortocoronary bypass graft; Z95.810 Presence of automatic (implantable) cardiac defibrillator; Z97.0 Presence of artificial eye
CPT/HCPCS: 36600; 71010; 76937; 80048; 80053; 80202; 80307; 82550; 82805; 82948; 83605; 83735; 83880; 85025; 85610; 85730; 87040; 87070; 87205; 87493; 87641; 93005; 94002; 94003; 94640; 94664; 96361; 96365; 96366; 96372; 96375; 96376; G0378; G8987-GP; G8988-GP; J1644; J1815; J1885; J2310; J2405; J2543; J2930; J3370; J7030; J7040; J7050

== ENCOUNTER 2017-08-07 12:42 | Observation (INO) | payer OTHER ==
[~2017-08-07] VITALS: Ht 162.6 cm; Wt 182.0 kg
[2017-08-07 12:45] VITALS: BP 165/75; PULSE 79; RESP 20; TEMP 98.8; O2SAT 96
--- NOTE | 2017-08-07 13:41 | RADRPT ---
EXAM DATE/TIME: 08/07/2017 13:16 [facility] COMPARISON: CHEST SINGLE AP, August 06, 2017, 9:04. INDICATIONS : Short of breath, prior chest pains. MEDICAL HISTORY : Myocardial infarction. SURGICAL HISTORY : CABG. Pacemaker. ENCOUNTER: Initial ACUITY: 1 day PAIN SCORE: 9/10 LOCATION: Bilateral chest FINDINGS: Pacer in good position on the right. Sternal wires from previous bypass. Moderate cardiomegaly with mild interstitial edema , improved from 08/06/17. The portion of the bony skeleton visualized is unr emarkable. CONCLUSION: Thyromegaly, previous bypass, improved from 08/06/17 with mild failure.. Jamal Lema MD FACR on August 07, 2017 at 13:31 Board Certified Radiologist. This report was verified electronically.
[2017-08-07 13:59] LABS: BLOOD, URINE NEG (NEG); COMMENT (UR) CATH-CULT NOT IND; CULTURE IF INDICATED CATH CULTURE NOT IND; GLUCOSE,URINE NEG (NEG); KETONE, URINE NEG (NEG); MUCUS URINE FEW /lpf (OCC); NITRITE,URINE NEG (NEG); URINE COLOR LIGHT-YELLOW (YELLW/STRAW)
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
[2017-08-07 15:30] LABS: AUTOMATED NEUTROPHIL # 6.7 TH/MM3 (1.8-7.7); BASOPHIL % 0.1 % (0.0-2.0); HEMATOCRIT 37.8 % (39.0-51.0); HEMO FLAGS DIFF FINAL; LYMPH % 5.8 % (9.0-44.0); LYMPHOCYTE # 0.5 TH/MM3 (1.0-4.8); MEAN CELL VOLUME 82.2 FL (80.0-100.0); MEAN CORPUSCULAR HEMOGLOBIN 25.6 PG (27.0-34.0); MEAN CORPUSCULAR HGB CONC 31.1 % (32.0-36.0); NEUT % 85.1 % (16.0-70.0); PLATELET COUNT 180 TH/MM3 (150-450); RED CELL DISTRIBUTION WIDTH 16.4 % (11.6-17.2); WHITE BLOOD COUNT 7.8 TH/MM3 (4.0-11.0)
[2017-08-07 15:48] LABS: APTT (PATIENT) 24.9 SEC (24.3-30.1); PROTHROMBIN TIME - PATIENT 11.4 SEC (9.8-11.6)
[2017-08-07 16:00] LABS: ALKALINE PHOSPHATASE 92 U/L (45-117); ALT (GPT) 35 U/L (12-78); ANION GAP 5 MEQ/L (5-15); AST (GOT) 28 U/L (15-37); BICARBONATE 35.4 MEQ/L (21.0-32.0); BLOOD UREA NITROGEN 31 MG/DL (7-18); CHLORIDE 96 MEQ/L (98-107); CREATINE KINASE 181 U/L (39-308); GLOMERULAR FILTRATION RATE 45 ML/MIN (>89); POTASSIUM 4.1 MEQ/L (3.5-5.1); SODIUM (NA) 136 MEQ/L (136-145); TOTAL BILIRUBIN ADULT 0.4 MG/DL (0.2-1.0)
[2017-08-07] MEDS ORDERED: NITROGLYCERIN 2% OINT 1 GM PACKET TOP ONE (16:15)
[2017-08-07] MEDS ORDERED: ASPIRIN 81 MG CHEW TAB PO ONE (16:15)
[2017-08-07] MEDS ORDERED: PIPERACIL-TAZO 3.375 GM PREMIX 50 ML IV ONE (16:15)
[2017-08-07 17:10] VITALS: BP 153/74; PULSE 72; RESP 20; O2SAT 100
[2017-08-07] MEDS ORDERED: NALOXONE HCL 0.4 MG/ML AMP IV PUSH PRN (17:15)
[2017-08-07] MEDS ORDERED: GLUCAGON 1 MG/ML VIAL OTHER PRN (17:15)
[2017-08-07] MEDS ORDERED: SODIUM CHLORIDE 0.9% FLUSH 10 ML FLUSH IV FLUSH PRN (17:15)
[2017-08-07] MEDS ORDERED: DEXTROSE 50% IN WATER 50 ML VIAL(D50) IV PUSH PRN (17:15)
[2017-08-07] MEDS ORDERED: RESP: IPRATROPIUM 0.5 MG/2.5 ML NEB NEB PRN (18:00)
[2017-08-07] MEDS ORDERED: RESP: ALBUTEROL 2.5 MG/IPRATROPIUM 0.5 MG NEB (PRN) NEB (18:15)
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
[2017-08-07 18:42] VITALS: BP 115/58; PULSE 80; RESP 21; TEMP 96.6; O2SAT 97
[2017-08-07] MEDS ORDERED: HEPARIN-D5W 25,000 U/250 ML 250 ML IV PRN (18:45)
[2017-08-07] MEDS ORDERED: HEPARIN SODIUM - IV 10,000 UNITS/10 ML VIAL IV PUSH ONE (18:45)
[2017-08-07] MEDS ORDERED: FUROSEMIDE 20 MG/2 ML VIAL IV PUSH ONE ×2 (18:45→21:00)
[2017-08-07] MEDS ORDERED: INSULIN ASPART SUPPLEMENTAL SCALE SQ SCH (21:00)
[2017-08-07] MEDS: BUDESONIDE-FORMOTEROL 160/4.5 MCG INHALER INH SCH (21:00)
[2017-08-07] MEDS: SODIUM CHLORIDE 0.9% FLUSH 10 ML FLUSH IV FLUSH SCH (21:00)
[2017-08-07] MEDS ORDERED: VANCOMYCIN INJ 1,250 MG in SODIUM CHLOR 0.9% 250 ML INJ 250 ML IV ONE (21:00)
[2017-08-07] MEDS: PANTOPRAZOLE SOD 20 MG DELAYED RELEASE TAB PO SCH (22:49)
[2017-08-07] MEDS: CARVEDILOL 12.5 MG TAB PO SCH (22:49)
[2017-08-07] MEDS: INSULIN DETEMIR 100 UNITS/ML VIAL SQ SCH (22:49)
[2017-08-07] MEDS: AMIODARONE 200 MG TAB PO SCH (22:49)
[2017-08-07] MEDS: PRAVASTATIN SOD 80 MG TAB PO SCH (22:49)
[2017-08-07 23:33] VITALS: BP 110/56; PULSE 67; RESP 18; TEMP 99; O2SAT 97
[2017-08-08] VITALS (7 sets, daily range): BP systolic 94–117; BP diastolic 50–68; PULSE 57–78; RESP 18–24; TEMP 97.5–99; O2SAT 94–98
[2017-08-08 02:42] LABS: AUTOMATED NEUTROPHIL # 6.5 TH/MM3 (1.8-7.7); BASOPHIL % 0.1 % (0.0-2.0); EOSINOPHIL % 0.1 % (0.0-4.0); HEMATOCRIT 35.7 % (39.0-51.0); HEMO FLAGS DIFF FINAL; LYMPH % 12.2 % (9.0-44.0); MEAN CELL VOLUME 82.7 FL (80.0-100.0); MEAN CORPUSCULAR HEMOGLOBIN 25.4 PG (27.0-34.0); MEAN CORPUSCULAR HGB CONC 30.7 % (32.0-36.0); MONO % 8.1 % (0.0-8.0); NEUT % 79.5 % (16.0-70.0); PLATELET COUNT 151 TH/MM3 (150-450); RED BLOOD COUNT 4.31 MIL/MM3 (4.50-5.90); RED CELL DISTRIBUTION WIDTH 16.5 % (11.6-17.2); WHITE BLOOD COUNT 8.2 TH/MM3 (4.0-11.0)
[2017-08-08 02:59] LABS: ANION GAP 3 MEQ/L (5-15); BICARBONATE 37.3 MEQ/L (21.0-32.0); BLOOD UREA NITROGEN 32 MG/DL (7-18); CHLORIDE 97 MEQ/L (98-107); GLOMERULAR FILTRATION RATE 39 ML/MIN (>89); POTASSIUM 3.9 MEQ/L (3.5-5.1); SODIUM (NA) 137 MEQ/L (136-145)
[2017-08-08 03:16] LABS: CREATINE KINASE 129 U/L (39-308)
[2017-08-08 06:05] LABS: APTT (PATIENT) 34.1 SEC (24.3-30.1)
[2017-08-08] MEDS ORDERED: LACTULOSE SYRUP 20 GM/30 ML CUP PO PRN (08:45)
[2017-08-08] MEDS ORDERED: NALOXONE HCL 0.4 MG/ML AMP IV PUSH PRN (08:45)
[2017-08-08] MEDS ORDERED: Vancomycin Consult Pharmacy 1 EA OTHER SCH (08:45)
[2017-08-08] MEDS ORDERED: ACETAMINOPHEN 325 MG TAB PO PRN ×2 (08:45)
[2017-08-08] MEDS ORDERED: BISACODYL 10 MG SUPP RECTAL PRN (08:45)
[2017-08-08] MEDS ORDERED: ONDANSETRON HCL 4 MG/2 ML VIAL IVP PRN (08:45)
[2017-08-08] MEDS ORDERED: SENNOSIDES 8.6 MG TAB PO PRN (08:45)
[2017-08-08] MEDS: INSULIN DETEMIR 100 UNITS/ML VIAL SQ SCH ×2 (09:00→23:50)
[2017-08-08] MEDS: SODIUM CHLORIDE 0.9% FLUSH 10 ML FLUSH IV FLUSH SCH ×2 (10:19→21:00)
[2017-08-08] MEDS: AMIODARONE 200 MG TAB PO SCH ×2 (10:20→21:00)
[2017-08-08] MEDS: ASPIRIN 325 MG TAB PO SCH (10:20)
[2017-08-08] MEDS: BUMETANIDE 1 MG TAB PO SCH (10:20)
[2017-08-08] MEDS: PANTOPRAZOLE SOD 20 MG DELAYED RELEASE TAB PO SCH ×2 (10:21→21:00)
[2017-08-08] MEDS: LISINOPRIL 20 MG TAB PO SCH (10:21)
[2017-08-08] MEDS: PARoxetine HCL 20 MG TAB PO SCH (10:21)
[2017-08-08] MEDS: CARVEDILOL 12.5 MG TAB PO SCH ×2 (10:22→21:00)
[2017-08-08] MEDS: CLOPIDOGREL 75 MG TAB PO SCH (10:22)
[2017-08-08] MEDS: INSULIN ASPART SUPPLEMENTAL SCALE SQ SCH ×3 (10:23→23:50)
[2017-08-08 11:39] LABS: APTT (PATIENT) 34.5 SEC (24.3-30.1)
[2017-08-08] MEDS: BUDESONIDE-FORMOTEROL 160/4.5 MCG INHALER INH SCH ×2 (12:51→20:59)
[2017-08-08 13:26] LABS: APTT (PATIENT) 34.3 SEC (24.3-30.1)
--- NOTE | 2017-08-08 14:39 | MB ---
cc: CANDI DE LA CRUZ M.D. DATE OF CONSULTATION: 08/08/2017 REASON FOR CONSULTATION: Chest pain. HISTORY OF PRESENT ILLNESS The patient is a 56-year-old white male with a history of multiple medical problems including coronary artery disease, diabetes, chronic renal insufficiency, sleep apnea, COPD who presented to the hospital with complaints of chest discomfort and shortness of breath. The patient states he had several episodes of chest discomfort 4 days ago, each episode never lasting more than 3-4 minutes. There was no definite associated shortness of breath, nausea or diaphoresis. The chest discomforts had no definitive relationship to exertion. Since that time he has had no further chest pain. He also denies any other chest discomforts in the last few months. Occasionally he experiences mild lightheadedness without syncope or near-syncope. He the patient also denies palpitations, recent AICD shocks change in chronic pedal edema, paroxysmal nocturnal dyspnea, fevers. Chronically he has moderate dyspnea on exertion, possibly slightly worse recently. PAST MEDICAL HISTORY 1. Hypertension 2. Diabetes 3. Hyperlipidemia. 4. COPD. 5. Coronary artery disease status post five-vessel bypass surgery many years ago. He also underwent stent of the [place] LAD 10/16/2007 as well as angioplasty of the vein graft to the obtuse marginal 11/04/2016. His last heart catheterization was 11/04/[address] Wil Duke showing normal left main, total occlusions of the LAD, left circumflex, right coronary artery, patent left internal mammary artery to the LAD, totally occluded vein grafts to the diagonal, distal left circumflex, right coronary artery, 80% lesion in the proximal portion of the vein graft to the obtuse marginal within a previously placed stent. 6. Ischemic cardiomyopathy, reportedly with ejection fraction as low as 25% in the past. His 2 most recent echoes this year, though technically difficult, suggests low normal left ventricular function. He has a history of [place] [employer] single chamber AICD implant 11/21/2005. 7. Chronic renal insufficiency. 8. CVA. 9. Bipolar disorder. 10. Sleep apnea 11. History of ventricular tachycardia storm in October 2016. MEDICATIONS Cardiac medications at home 1. Amiodarone 200 mg q.12 h. 2. Clopidogrel 75 mg daily. 3. Zocor 40 mg q.h.s. 4. Bumex 1 mg daily. 5. Carvedilol 12.5 mg b.i.d. 6. Lisinopril 20 mg daily. 7. Aspirin 325 mg daily. ALLERGIES MORPHINE FAMILY HISTORY Noncontributory. SOCIAL HISTORY The patient quit smoking several years ago he denies drug or alcohol abuse. REVIEW OF SYSTEMS As in the history of present illness otherwise negative or noncontributory also denies headache, abdominal pain, dyspepsia, melena, bright red blood per rectum, cough. PHYSICAL EXAMINATION: VITAL SIGNS: On physical examination his blood pressure 104/50 with a pulse of 60, respirations 22. IN GENERAL: He is a well-developed, well-nourished white male in no acute distress. HEAD, EYES, EARS, NOSE, AND THROAT: Jugular venous pressure is hard to assess, it appears to be normal. NECK: Carotid pulses are 2+ bilaterally and without bruits. CHEST: Examination of the chest reveals unlabored respiratory effort with clear lung barros. CARDIAC: On cardiac examination he has a regular rhythm and rate without S3-S4 or murmur. ABDOMEN: On abdominal examination he has a soft, obese, nontender abdomen. Bowel sounds are present. There is no definite hepatosplenomegaly. EXTREMITIES: Examination of the extremities reveals no clubbing or cyanosis. There is 1+ pretibial edema bilaterally with chronic venous stasis changes. LABORATORY DATA Includes WBC 8.2, hemoglobin 10.9, platelets 151, potassium 3.9, BUN 32, creatinine 1.83, negative cardiac enzymes. RADIOLOGIC: Chest x-ray Shows possibly slightly increased interstitial markings. EKG shows sinus rhythm, nonspecific intraventricular conduction delay, left atrial abnormality. IMPRESSION Somewhat atypical chest pains about four days ago in this 56-year-old white male with a history of multiple medical problems including diabetes, COPD, coronary artery disease, ischemic cardiomyopathy, chronic renal insufficiency, sleep apnea, history of ventricular tachycardia October 2016. The patient reports no other chest discomforts in the last several months. The chest pains had no relationship to exertion or activity. Cardiac enzymes are negative for myocardial infarction. EKG shows no acute ST-segment or T-wave changes. He does report compliance with his medications. He would be at increased risk of dye-induced nephropathy with another heart catheterization with his chronic renal insufficiency and diabetes. RECOMMENDATIONS 1. Medical therapy of his coronary artery disease at this time. Recommend adding an oral nitrate isosorbide mononitrate 60 mg daily. 2. Continue his other home cardiac medications. 3. Will follow up as needed. Please call if additional cardiac questions or problems arise. MD CHI Eaton/gwendolyn /1:57 PM /2:26 PM VANDANA
[2017-08-08 16:48] LABS: HEMOGLOBIN A1a 1.6 %; HEMOGLOBIN LA1C 3.3 %; HEMOGLOBIN P3 5.3 %
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
--- NOTE | 2017-08-08 17:23 | EKG ---
Date Performed: 08/07/2017 Time Performed: 13:59:39 PTAGE: 56 years EKG: Sinus rhythm POSSIBLE LEFT ATRIAL ENLARGEMENT INTRAVENTRICULAR CONDUCTION DELAY ABNORMAL ECG Since PREVIOUS TRACING , no significant change noted DOCTOR: Linda Vivar Interpretating Date/Time 08/08/2017 17:20:59
[2017-08-08] MEDS: HEPARIN SODIUM - SQ 10,000 UNITS/ML VIAL SQ SCH (20:59)
[2017-08-08] MEDS: DOXYCYCLINE HYCLATE 100 MG CAP PO SCH (20:59)
[2017-08-08] MEDS: PRAVASTATIN SOD 80 MG TAB PO SCH (21:00)
[2017-08-08 23:43] LABS: APTT (PATIENT) 32.8 SEC (24.3-30.1)
[2017-08-09 04:02] VITALS: BP 99/41; PULSE 60; RESP 20; TEMP 96.5; O2SAT 93
[2017-08-09] MEDS ORDERED: ISOSORBIDE MONONITRATE 60 MG TAB PO SCH (07:00)
[2017-08-09 07:36] VITALS: BP 71/29; PULSE 58; RESP 19; TEMP 97.6; O2SAT 97
[2017-08-09 09:01] VITALS: BP 134/70; PULSE 62
[2017-08-09] MEDS: BUDESONIDE-FORMOTEROL 160/4.5 MCG INHALER INH SCH (09:28)
[2017-08-09] MEDS: INSULIN ASPART SUPPLEMENTAL SCALE SQ SCH ×2 (09:29→13:17)
[2017-08-09] MEDS: SODIUM CHLORIDE 0.9% FLUSH 10 ML FLUSH IV FLUSH SCH (09:30)
[2017-08-09] MEDS: CLOPIDOGREL 75 MG TAB PO SCH (09:30)
[2017-08-09] MEDS: HEPARIN SODIUM - SQ 10,000 UNITS/ML VIAL SQ SCH (09:30)
[2017-08-09] MEDS: INSULIN DETEMIR 100 UNITS/ML VIAL SQ SCH (09:30)
[2017-08-09] MEDS: CARVEDILOL 12.5 MG TAB PO SCH (09:30)
[2017-08-09] MEDS: ASPIRIN 325 MG TAB PO SCH (09:30)
[2017-08-09] MEDS: AMIODARONE 200 MG TAB PO SCH (09:31)
[2017-08-09] MEDS: PARoxetine HCL 20 MG TAB PO SCH (09:31)
[2017-08-09] MEDS: BUMETANIDE 1 MG TAB PO SCH (09:31)
[2017-08-09] MEDS: PANTOPRAZOLE SOD 20 MG DELAYED RELEASE TAB PO SCH (09:31)
[2017-08-09] MEDS: LISINOPRIL 20 MG TAB PO SCH (09:31)
[2017-08-09] MEDS: DOXYCYCLINE HYCLATE 100 MG CAP PO SCH (09:31)
[2017-08-09 12:51] VITALS: BP 103/72; PULSE 61; RESP 21; TEMP 98.6; O2SAT 93
[2017-08-09 15:09] VITALS: PULSE 50
[2017-08-09 15:37] VITALS: BP 118/70; PULSE 63; RESP 18; TEMP 98.6; O2SAT 96
[2017-08-09] MEDS ORDERED: ASPI-183 PO (15:37)
[2017-08-09] MEDS ORDERED: DOXY100C PO (15:37)
[2017-08-09] MEDS ORDERED: BUME1TAB PO (15:37)
[2017-08-09] MEDS ORDERED: VENTAER INH (15:37)
[2017-08-09] MEDS ORDERED: AMIO200T PO (15:37)
[2017-08-09] MEDS ORDERED: CARV12.52 PO (15:37)
[2017-08-09] MEDS ORDERED: ZOCO40TA PO (15:37)
[2017-08-09] MEDS ORDERED: SYMB160A INH (15:37)
[2017-08-09] MEDS ORDERED: ISOS60TA PO (15:37)
[2017-08-09] MEDS ORDERED: LISI-515 PO (15:37)
[2017-08-09] MEDS ORDERED: CLOP75TA PO (15:37)
[2017-08-09] MEDS ORDERED: FLUT1SPR5 EACH NARE (15:37)
--- NOTE | 2017-08-09 15:41 | HHI.DCPOC ---
Discharge Care Plan Diagnosis: (1) Chronic kidney disease (CKD), stage III (moderate) (2) Acute exacerbation of CHF (congestive heart failure) (3) JOSE R (acute kidney injury) (4) Congestive heart failure (CHF) (5) Sleep apnea (6) Hypertension (7) Type 2 diabetes mellitus (8) CAD (coronary artery disease) (9) Morbid obesity (10) Cellulitis (11) Chest pain Your Health Problems Are: Swelling Leg Swelling Fluid/Lung Overload Goals to Promote Your Health * To prevent worsening of your condition and complications * To maintain your health at the optimal level Directions to Meet Your Goals Please maintain a heart healthy, diabetic diet with restriction of fluids to no more than 2 L per day and sodium to no more than 2 g per day Please weigh yourself daily and contact her primary care physician if you develop more than 2 pound weight gain in 2 days. Take your medications as prescribed Follow your dietary instruction Follow activity as directed Keep your appointments as scheduled Take your immunizations and boosters as scheduled If your symptoms worsen call your PCP, if no PCP go to Urgent Care Center or Emergency Room Smoking is Dangerous to Your Health. Avoid second hand smoke Call the 24-hour hour crisis hotline for domestic abuse at Laura Navas Aug 09, 2017 15:41
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
[2017-08-09] MEDS ORDERED: INSULIN DETEMIR 100 UNITS/ML VIAL SQ SCH (21:00)
== END 2017-08-09 18:26 | disposition home or self-care (01) ==
LOC: NEPD 12:42 → NEDA 16:05 → NEPHCDU 18:53
PROVIDERS: ADMIT Internal Medicine; ATTEND Internal Medicine
DX: R07.89 Other chest pain (principal); R06.00 Dyspnea, unspecified; I25.10 Atherosclerotic heart disease of native coronary artery without angina pectoris; Z95.1 Presence of aortocoronary bypass graft; I13.0 Hypertensive heart and chronic kidney disease with heart failure and stage 1 through stage 4 chronic kidney disease, or unspecified chronic kidney disease; I50.9 Heart failure, unspecified; E11.22 Type 2 diabetes mellitus with diabetic chronic kidney disease; N18.3 Chronic kidney disease, stage 3 (moderate); G47.33 Obstructive sleep apnea (adult) (pediatric); J96.22 Acute and chronic respiratory failure with hypercapnia; Z99.81 Dependence on supplemental oxygen; Z91.19 Patient's noncompliance with other medical treatment and regimen; R42 Dizziness and giddiness; R00.2 Palpitations; R68.83 Chills (without fever); L03.116 Cellulitis of left lower limb; L03.115 Cellulitis of right lower limb; I25.5 Ischemic cardiomyopathy; R94.31 Abnormal electrocardiogram [ECG] [EKG]; J45.909 Unspecified asthma, uncomplicated; E78.00 Pure hypercholesterolemia, unspecified; I48.91 Unspecified atrial fibrillation; K21.9 Gastro-esophageal reflux disease without esophagitis; J44.9 Chronic obstructive pulmonary disease, unspecified; E78.5 Hyperlipidemia, unspecified; I25.2 Old myocardial infarction; E01.0 Iodine-deficiency related diffuse (endemic) goiter; F31.9 Bipolar disorder, unspecified; F41.9 Anxiety disorder, unspecified; F40.240 Claustrophobia; M19.90 Unspecified osteoarthritis, unspecified site; E66.01 Morbid (severe) obesity due to excess calories; Z79.82 Long term (current) use of aspirin; Z86.73 Personal history of transient ischemic attack (TIA), and cerebral infarction without residual deficits; Z79.899 Other long term (current) drug therapy; Z87.891 Personal history of nicotine dependence; Z95.5 Presence of coronary angioplasty implant and graft; Z95.810 Presence of automatic (implantable) cardiac defibrillator; Z96.661 Presence of right artificial ankle joint; Z86.14 Personal history of Methicillin resistant Staphylococcus aureus infection
CPT/HCPCS: 71010; 80048; 80053; 81001; 82272; 82550; 82552; 82948; 83036; 83605; 84484; 85025; 85379; 85610; 85730; 87040; 93005; 96365; 96366; 96372; 96375; 97161; 99285; G0378; J1644; J1815; J1940; J2543; J3370; J7050

== ENCOUNTER 2017-10-03 08:20 | Observation (INO) | payer OTHER, MEDICAID ==
[~2017-10-03] VITALS: Ht 162.6 cm; Wt 177.2 kg
[~2017-10-03 08:20] MED LIST changes: -ADVA250A INH; -COLC1CAP3 PO; +DOXY100C PO; -HYDR100C PO; +ISOS60TA PO
[2017-10-03 08:25] VITALS: BP 185/77; PULSE 80; RESP 22; TEMP 98.2; O2SAT 95
[2017-10-03] MEDS ORDERED: SODIUM CHLORIDE 0.9% FLUSH 10 ML FLUSH IVF PRN (09:00)
[2017-10-03 09:27] LABS: AUTOMATED NEUTROPHIL # 4.9 TH/MM3 (1.8-7.7); BASOPHIL # 0.1 TH/MM3 (0-0.2); BASOPHIL % 1.3 % (0.0-2.0); EOSINOPHIL # 0.1 TH/MM3 (0-0.4); EOSINOPHIL % 2.1 % (0.0-4.0); HEMATOCRIT 34.1 % (39.0-51.0); HEMOGLOBIN 10.6 GM/DL (13.0-17.0); LYMPH % 17.7 % (9.0-44.0); LYMPHOCYTE # 1.3 TH/MM3 (1.0-4.8); MEAN CELL VOLUME 82.2 FL (80.0-100.0); MEAN CORPUSCULAR HEMOGLOBIN 25.4 PG (27.0-34.0); MEAN CORPUSCULAR HGB CONC 30.9 % (32.0-36.0); MEAN PLATELET VOLUME 8.9 FL (7.0-11.0); MONO % 8.9 % (0.0-8.0); MONOCYTE # 0.6 TH/MM3 (0-0.9); PLATELET COUNT 221 TH/MM3 (150-450); RED BLOOD COUNT 4.15 MIL/MM3 (4.50-5.90); RED CELL DISTRIBUTION WIDTH 17.7 % (11.6-17.2)
[2017-10-03 09:36] VITALS: BP_SYST 101; BP_SYST 95; BP_DIAS 51; PULSE 65; RESP 20; O2SAT 95
[2017-10-03 09:41] LABS: ALT (GPT) 21 U/L (12-78)
[2017-10-03 09:42] LABS: INTERNATIONAL NORMALIZED RATIO 1.1 RATIO; PROTHROMBIN TIME - PATIENT 10.8 SEC (9.8-11.6)
--- NOTE | 2017-10-03 09:43 | RADRPT ---
EXAM DATE/TIME: 10/03/2017 09:05 [place] COMPARISON: CHEST SINGLE AP, August 07, 2017, 13:16. INDICATIONS : Chest pain. MEDICAL HISTORY : Chronic obstructive pulmonary disease. Myocardial infarction. SURGICAL HISTORY : CABG. Pacemaker. ENCOUNTER: Initial ACUITY: 1 day PAIN SCORE: 7/10 LOCATION: Bilateral chest FINDINGS: 2 AP erect portable views of the chest were obtained and again demonstrate fat the patient is status post median sternotomy for bypass grafting procedure. The right subclavian transvenous pacer remains in place. The heart size remains enlarged with no infiltrates or effusions. There is no perihilar rosalia ma. The bony thorax remains intact in appearance. CONCLUSION: 1. Cardiomegaly with no evidence of pulmonary edema. 2. Status post median sternotomy. Jd Weber MD on October 03, 2017 at 9:40 Board Certified Radiologist. This report was verified electronically.
[2017-10-03] MEDS ORDERED: ACETAMINOPHEN 325 MG TAB PO ONE (09:45)
[2017-10-03 10:02] LABS: ALBUMIN 2.9 GM/DL (3.4-5.0); ALKALINE PHOSPHATASE 96 U/L (45-117); AST (GOT) 24 U/L (15-37); BICARBONATE 31.3 MEQ/L (21.0-32.0); BLOOD UREA NITROGEN 28 MG/DL (7-18); CALCIUM 8.2 MG/DL (8.5-10.1); CHLORIDE 101 MEQ/L (98-107); CREATININE 1.89 MG/DL (0.60-1.30); GLOMERULAR FILTRATION RATE 37 ML/MIN (>89); GLUCOSE,RANDOM 155 MG/DL (74-106); MAGNESIUM 2.1 MG/DL (1.5-2.5); SODIUM (NA) 138 MEQ/L (136-145); TOTAL BILIRUBIN ADULT 0.5 MG/DL (0.2-1.0); TROPONIN I LESS THAN 0.02 NG/ML (0.02-0.05)
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
[2017-10-03] MEDS ORDERED: ACETAMINOPHEN 500 MG CPLT PO PRN (10:45)
[2017-10-03] MEDS ORDERED: ONDANSETRON HCL 4 MG/2 ML VIAL IV PUSH PRN (10:45)
[2017-10-03] MEDS ORDERED: NITROGLYCERIN 0.4 MG SL 25 TABS/BTL SL PRN (10:45)
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
[2017-10-03 12:51] LABS: TROPONIN I LESS THAN 0.02 NG/ML (0.02-0.05)
[2017-10-03] MEDS ORDERED: DEXTROSE 50% IN WATER 50 ML VIAL(D50) IV PUSH PRN (13:15)
[2017-10-03] MEDS ORDERED: GLUCAGON 1 MG/ML VIAL OTHER PRN (13:15)
[2017-10-03 14:00] VITALS: BP 111/70; PULSE 72; RESP 16; O2SAT 95
--- NOTE | 2017-10-03 15:09 | EKG ---
Date Performed: 10/03/2017 Time Performed: 08:53:31 PTAGE: 57 years EKG: Sinus rhythm INTRAVENTRICULAR CONDUCTION DELAY ABNORMAL ECG PREVIOUS TRACING : 08/07/2017 13.59 Compared to prior tracing no significant change DOCTOR: Maciej Felix Interpretating Date/Time 10/05/2017 07:36:25
[2017-10-03 15:55] LABS: TROPONIN I LESS THAN 0.02 NG/ML (0.02-0.05)
--- NOTE | 2017-10-03 18:00 | EKG ---
Date Performed: 10/03/2017 Time Performed: 12:05:54 PTAGE: 57 years EKG: SINUS BRADYCARDIA INTRAVENTRICULAR CONDUCTION DELAY ABNORMAL ECG Since PREVIOUS TRACING , no significant change noted PREVIOUS TRACIN10/03/2017 08.53 DOCTOR: Linda iVvar Interpretating Date/Time 10/03/2017 17:58:18
[2017-10-03] MEDS ORDERED: PANTOPRAZOLE SOD 20 MG DELAYED RELEASE TAB PO SCH (21:00)
[2017-10-03] MEDS ORDERED: BUDESONIDE-FORMOTEROL 160/4.5 MCG INHALER INH SCH (21:00)
[2017-10-03] MEDS ORDERED: PRAVASTATIN SOD 80 MG TAB PO SCH (21:00)
[2017-10-03] MEDS ORDERED: CARVEDILOL 12.5 MG TAB PO SCH (21:00)
[2017-10-03] MEDS ORDERED: AMIODARONE 200 MG TAB PO SCH (21:00)
[2017-10-03] MEDS ORDERED: SODIUM CHLORIDE 0.9% FLUSH 10 ML FLUSH IV FLUSH SCH (21:00)
[2017-10-03] MEDS ORDERED: INSULIN DETEMIR 100 UNITS/ML VIAL SQ SCH (21:00)
[2017-10-04] MEDS ORDERED: ISOSORBIDE MONONITRATE 60 MG TAB PO SCH (07:00)
[2017-10-04] MEDS ORDERED: LISINOPRIL 20 MG TAB PO SCH (09:00)
[2017-10-04] MEDS ORDERED: ASPIRIN 325 MG TAB PO SCH (09:00)
[2017-10-04] MEDS ORDERED: ALLOPURINOL 100 MG TAB PO SCH (09:00)
[2017-10-04] MEDS ORDERED: PARoxetine HCL 20 MG TAB PO SCH (09:00)
[2017-10-04] MEDS ORDERED: CLOPIDOGREL 75 MG TAB PO SCH (09:00)
[2017-10-04] MEDS ORDERED: BUMETANIDE 1 MG TAB PO SCH (09:00)
--- NOTE | 2017-10-04 09:23 | EKG ---
Date Performed: 10/03/2017 Time Performed: 14:48:29 PTAGE: 57 years EKG: SINUS BRADYCARDIA LEFT BUNDLE BRANCH BLOCK ABNORMAL ECG PREVIOUS TRACING : 10/03/2017 12.05 Since previous tracing, no significant change noted DOCTOR: Niko Fischer Interpretating Date/Time 10/04/2017 09:22:05
[2017-10-09] MEDS ORDERED: ADVA250A INH (18:29)
== END 2017-10-03 19:36 | disposition left against medical advice (07) ==
LOC: NEPC 08:20 → NEDA 10:20 → NEPGCP 15:47
PROVIDERS: ADMIT Internal Medicine Interventional Cardiology; ATTEND Internal Medicine Interventional Cardiology
DX: R07.9 Chest pain, unspecified (principal); Z99.81 Dependence on supplemental oxygen; J44.9 Chronic obstructive pulmonary disease, unspecified; Z79.01 Long term (current) use of anticoagulants; M19.90 Unspecified osteoarthritis, unspecified site; F41.9 Anxiety disorder, unspecified; I48.91 Unspecified atrial fibrillation; E78.00 Pure hypercholesterolemia, unspecified; I50.9 Heart failure, unspecified; I11.0 Hypertensive heart disease with heart failure; Z86.73 Personal history of transient ischemic attack (TIA), and cerebral infarction without residual deficits; E11.9 Type 2 diabetes mellitus without complications; K21.9 Gastro-esophageal reflux disease without esophagitis; F31.9 Bipolar disorder, unspecified; G47.30 Sleep apnea, unspecified; Z79.899 Other long term (current) drug therapy; Z95.5 Presence of coronary angioplasty implant and graft; I25.10 Atherosclerotic heart disease of native coronary artery without angina pectoris; R60.0 Localized edema; M10.9 Gout, unspecified; Z87.891 Personal history of nicotine dependence; E66.01 Morbid (severe) obesity due to excess calories; D64.9 Anemia, unspecified; R94.31 Abnormal electrocardiogram [ECG] [EKG]; Z79.4 Long term (current) use of insulin
CPT/HCPCS: 71045; 80053; 82550; 82552; 83735; 83880; 84484; 85025; 85610; 85730; 93005; 99285; G0378

== ENCOUNTER 2017-10-09 17:33 | Inpatient (IN) | payer SELFPAY, MEDICAID, OTHER ==
[2017-10-09] MEDS ORDERED: SODIUM CHLORIDE 0.9% FLUSH 10 ML FLUSH IVF (18:15)
[2017-10-09] MEDS: RESP: ALBUTEROL 2.5 MG/IPRATROPIUM 0.5 MG NEB (SCH) INH (18:21)
[2017-10-09] MEDS: ONDANSETRON HCL 4 MG/2 ML VIAL IV PUSH (18:21)
[2017-10-09] MEDS: HYDROmorphone HCL PF 2 MG/ML VIAL IV PUSH (18:21)
[2017-10-09 18:47] LABS: AUTOMATED NEUTROPHIL # 8.9 TH/MM3 (1.8-7.7); BASOPHIL # 0.1 TH/MM3 (0-0.2); BASOPHIL % 0.7 % (0.0-2.0); EOSINOPHIL # 0.1 TH/MM3 (0-0.4); EOSINOPHIL % 0.9 % (0.0-4.0); HEMATOCRIT 39.1 % (39.0-51.0); HEMO FLAGS DIFF FINAL; HEMOGLOBIN 11.9 GM/DL (13.0-17.0); LYMPH % 2.7 % (9.0-44.0); LYMPHOCYTE # 0.3 TH/MM3 (1.0-4.8); MEAN CELL VOLUME 82.6 FL (80.0-100.0); MEAN CORPUSCULAR HEMOGLOBIN 25.3 PG (27.0-34.0); MEAN CORPUSCULAR HGB CONC 30.6 % (32.0-36.0); MEAN PLATELET VOLUME 8.9 FL (7.0-11.0); MONO % 1.5 % (0.0-8.0); MONOCYTE # 0.1 TH/MM3 (0-0.9); NEUT % 94.2 % (16.0-70.0); PLATELET COUNT 202 TH/MM3 (150-450); RED BLOOD COUNT 4.73 MIL/MM3 (4.50-5.90); WHITE BLOOD COUNT 9.5 TH/MM3 (4.0-11.0)
[2017-10-09 18:57] LABS: LACTIC ACID 0.5 mmol/L (0.4-2.0)
[2017-10-09 19:02] LABS: ALBUMIN 3.4 GM/DL (3.4-5.0); ANION GAP 7 MEQ/L (5-15); AST (GOT) 21 U/L (15-37); BICARBONATE 32.3 MEQ/L (21.0-32.0); BLOOD UREA NITROGEN 29 MG/DL (7-18); CALCIUM 8.3 MG/DL (8.5-10.1); CHLORIDE 97 MEQ/L (98-107); CREATININE 2.34 MG/DL (0.60-1.30); GLOMERULAR FILTRATION RATE 29 ML/MIN (>89); GLUCOSE,RANDOM 157 MG/DL (74-106); MAGNESIUM 1.9 MG/DL (1.5-2.5); SODIUM (NA) 136 MEQ/L (136-145)
[2017-10-09 19:03] LABS: ALT (GPT) 22 U/L (12-78)
[2017-10-09 19:06] LABS: ALKALINE PHOSPHATASE 117 U/L (45-117); TOTAL BILIRUBIN ADULT 0.6 MG/DL (0.2-1.0); TOTAL PROTEIN 8.2 GM/DL (6.4-8.2); TROPONIN I LESS THAN 0.02 NG/ML (0.02-0.05)
[2017-10-09 19:16] LABS: CREATINE KINASE 80 U/L (39-308)
[2017-10-09 20:27] LABS: B-TYPE NATRIURETIC PEPTIDE 61 PG/ML (0-100)
[2017-10-09] MEDS ORDERED: NALOXONE HCL 0.4 MG/ML AMP IV PUSH (21:00)
[2017-10-09] MEDS ORDERED: SODIUM CHLORIDE 0.9% FLUSH 10 ML FLUSH IV FLUSH (21:00)
[2017-10-09] MEDS: RESP: ALBUTEROL 2.5 MG/IPRATROPIUM 0.5 MG NEB (SCH) NEB ×2 (21:15→21:23)
[2017-10-09] MEDS ORDERED: RESP: ALBUTEROL 2.5 MG/IPRATROPIUM 0.5 MG NEB (PRN) NEB (21:15)
[2017-10-09] MEDS: SODIUM CHLORIDE 0.9% FLUSH 10 ML FLUSH IV FLUSH (22:08)
[2017-10-09] MEDS: methylPREDNISolone SOD SUCC 125 MG/2 ML VIAL IV PUSH (22:09)
[2017-10-10] MEDS ORDERED: HEPARIN-D5W 25,000 U/250 ML 250 ML IV (01:45)
[2017-10-10] MEDS ORDERED: GLUCAGON 1 MG/ML VIAL OTHER (02:00)
[2017-10-10] MEDS ORDERED: DEXTROSE 50% IN WATER 50 ML VIAL(D50) IV PUSH (02:00)
[2017-10-10 02:21] LABS: HEMATOCRIT 35.4 % (39.0-51.0); HEMO FLAGS DIFF FINAL; HEMOGLOBIN 10.6 GM/DL (13.0-17.0); LYMPH % 1.4 % (9.0-44.0); LYMPHOCYTE # 0.3 TH/MM3 (1.0-4.8); MEAN CELL VOLUME 83.2 FL (80.0-100.0); MEAN CORPUSCULAR HEMOGLOBIN 24.9 PG (27.0-34.0); MEAN PLATELET VOLUME 8.9 FL (7.0-11.0); MONOCYTE # 0.4 TH/MM3 (0-0.9); NEUT % 96.6 % (16.0-70.0); PLATELET COUNT 177 TH/MM3 (150-450); RED BLOOD COUNT 4.26 MIL/MM3 (4.50-5.90); RED CELL DISTRIBUTION WIDTH 17.8 % (11.6-17.2); WHITE BLOOD COUNT 18.6 TH/MM3 (4.0-11.0)
[2017-10-10 02:32] LABS: APTT (PATIENT) 27.3 SEC (24.3-30.1)
[2017-10-10 02:44] LABS: ANION GAP 4 MEQ/L (5-15); BICARBONATE 33.2 MEQ/L (21.0-32.0); BLOOD UREA NITROGEN 35 MG/DL (7-18); CALCIUM 7.8 MG/DL (8.5-10.1); CHLORIDE 99 MEQ/L (98-107); CREATININE 3.08 MG/DL (0.60-1.30); GLOMERULAR FILTRATION RATE 21 ML/MIN (>89); GLUCOSE,RANDOM 213 MG/DL (74-106); POTASSIUM 5.2 MEQ/L (3.5-5.1); SODIUM (NA) 136 MEQ/L (136-145)
[2017-10-10] MEDS: HEPARIN SODIUM - IV 10,000 UNITS/10 ML VIAL IV PUSH (02:49)
[2017-10-10 02:51] LABS: CREATINE KINASE 420 U/L (39-308); TROPONIN I LESS THAN 0.02 NG/ML (0.02-0.05)
[2017-10-10 03:16] LABS: CKMB 4.1 NG/ML (0.5-3.6)
[2017-10-10] MEDS ORDERED: CHLORHEXIDINE GLUCONATE 2 % 1 PACK (2 CLOTHS) TOP (03:30)
[2017-10-10] MEDS ORDERED: MISCELLANEOUS NURSING INFORMATION XX (03:30)
[2017-10-10] MEDS: RESP: ALBUTEROL 2.5 MG/IPRATROPIUM 0.5 MG NEB (SCH) NEB ×4 (03:52→21:30)
[2017-10-10] MEDS: CHLORHEXIDINE GLUCONATE 2 % 1 PACK (2 CLOTHS) TOP (04:00)
[2017-10-10 04:31] LABS: MRSA PCR SURVEILLANCE MRSA DETECTED (NOT DETECT)
[2017-10-10] MEDS ORDERED: HEPARIN SODIUM - SQ 10,000 UNITS/ML VIAL SQ (06:00)
[2017-10-10] MEDS: methylPREDNISolone SOD SUCC 40 MG/1 ML VIAL IV PUSH ×3 (06:17→17:19)
[2017-10-10] MEDS: SODIUM CHLORIDE 0.9% FLUSH 10 ML FLUSH IV FLUSH ×2 (09:00→20:50)
[2017-10-10] MEDS: FLUTICASONE PROPIONATE 50 MCG/ACT 16 GM NASAL SPRAY NASAL ×2 (09:00→20:49)
[2017-10-10] MEDS: BUDESONIDE-FORMOTEROL 160/4.5 MCG INHALER INH ×2 (09:00→20:49)
[2017-10-10] MEDS: PARoxetine HCL 20 MG TAB PO (09:28)
[2017-10-10] MEDS: PANTOPRAZOLE SOD 20 MG DELAYED RELEASE TAB PO ×2 (09:28→20:49)
[2017-10-10] MEDS: ASPIRIN 325 MG TAB PO (09:28)
[2017-10-10] MEDS: CLOPIDOGREL 75 MG TAB PO (09:29)
[2017-10-10] MEDS: LISINOPRIL 20 MG TAB PO (09:31)
[2017-10-10] MEDS: CARVEDILOL 12.5 MG TAB PO ×2 (09:31→20:49)
[2017-10-10] MEDS: ACETAMINOPHEN/HYDROcodone 325 MG/10 MG TAB PO ×2 (11:21→17:19)
[2017-10-10] MEDS: INSULIN ASPART SUPPLEMENTAL SCALE SQ ×4 (11:21→20:49)
[2017-10-10] MEDS: SODIUM CHLOR 0.9% 1000 ML INJ 1,000 ML IV (11:23)
[2017-10-10 16:34] LABS: CREATINE KINASE 933 U/L (39-308)
[2017-10-10 16:34] LABS: TROPONIN I LESS THAN 0.02 NG/ML (0.02-0.05)
[2017-10-10 17:17] LABS: CKMB % 0.9 % (0.0-4.0)
[2017-10-11] MEDS: PIPERACIL-TAZO 4.5 GM PREMIX 100 ML IV (00:34)
[2017-10-11] MEDS: methylPREDNISolone SOD SUCC 40 MG/1 ML VIAL IV PUSH ×4 (00:34→18:40)
[2017-10-11] MEDS: LACTULOSE SYRUP 20 GM/30 ML CUP PO (00:34)
[2017-10-11] MEDS: SODIUM CHLOR 0.9% 1000 ML INJ 1,000 ML IV ×3 (00:34→16:39)
[2017-10-11 00:40] LABS: AMORPHOUS SEDIMENT, URINE RARE; BACTERIA, URINE MOD /hpf; BILIRUBIN, URINE NEG (NEG); BLOOD, URINE MOD (NEG); GLUCOSE,URINE NEG (NEG); HYALINE CAST, URINE 9 /lpf (RARE); KETONE, URINE NEG (NEG); MUCUS URINE FEW /lpf (OCC); NITRITE,URINE NEG (NEG); RENAL EPITHELIAL CELLS 5 /hpf; SQUAMOUS EPITHELIAL CELL URINE 5 /hpf (0-5); TRANSITIONAL EPI CELLS, URINE <1 /hpf; URINE COLOR YELLOW (YELLW/STRAW); URINE LEUKOCYTE ESTERASE LARGE (NEG); WHITE BLOOD CELL CLUMPS MANY
[2017-10-11 00:41] LABS: COMMENT (UR) CATH-CULTURE IND; CULTURE IF INDICATED CATH CULTURE IND
[2017-10-11 02:46] LABS: AUTOMATED NEUTROPHIL # 15.4 TH/MM3 (1.8-7.7); BASOPHIL % 0.1 % (0.0-2.0); HEMO FLAGS DIFF FINAL; HEMOGLOBIN 10.2 GM/DL (13.0-17.0); LYMPH % 4.4 % (9.0-44.0); LYMPHOCYTE # 0.7 TH/MM3 (1.0-4.8); MEAN CELL VOLUME 82.7 FL (80.0-100.0); MEAN CORPUSCULAR HEMOGLOBIN 24.1 PG (27.0-34.0); MEAN PLATELET VOLUME 9.2 FL (7.0-11.0); MONO % 2.7 % (0.0-8.0); MONOCYTE # 0.5 TH/MM3 (0-0.9); NEUT % 92.8 % (16.0-70.0); PLATELET COUNT 195 TH/MM3 (150-450); RED BLOOD COUNT 4.23 MIL/MM3 (4.50-5.90); RED CELL DISTRIBUTION WIDTH 18.1 % (11.6-17.2); WHITE BLOOD COUNT 16.6 TH/MM3 (4.0-11.0)
[2017-10-11 02:51] LABS: MEAN CORPUSCULAR HGB CONC 29.2 % (32.0-36.0)
[2017-10-11 03:06] LABS: LACTIC ACID 0.9 mmol/L (0.4-2.0)
[2017-10-11 03:11] LABS: ALBUMIN 2.8 GM/DL (3.4-5.0); ALKALINE PHOSPHATASE 89 U/L (45-117); ALT (GPT) 31 U/L (12-78); ANION GAP 6 MEQ/L (5-15); APTT (PATIENT) 28.7 SEC (24.3-30.1); AST (GOT) 47 U/L (15-37); BICARBONATE 30.1 MEQ/L (21.0-32.0); BLOOD UREA NITROGEN 55 MG/DL (7-18); CALCIUM 7.4 MG/DL (8.5-10.1); CHLORIDE 95 MEQ/L (98-107); GLOMERULAR FILTRATION RATE 14 ML/MIN (>89); GLUCOSE,RANDOM 244 MG/DL (74-106); INTERNATIONAL NORMALIZED RATIO 1.1 RATIO; MAGNESIUM 2.2 MG/DL (1.5-2.5); POTASSIUM 6.3 MEQ/L (3.5-5.1); PROTHROMBIN TIME - PATIENT 11.4 SEC (9.8-11.6); SODIUM (NA) 131 MEQ/L (136-145); TOTAL BILIRUBIN ADULT 0.4 MG/DL (0.2-1.0); TOTAL PROTEIN 7.2 GM/DL (6.4-8.2)
[2017-10-11 03:14] LABS: FIBRINOGEN 530 mg/dL (227-377)
[2017-10-11] MEDS ORDERED: SODIUM CHLOR 0.9% 1000 ML INJ 1,000 ML IV (03:15)
[2017-10-11 03:16] LABS: PROSTATE SPECIFIC ANTIGEN 0.78 NG/ML (0.00-4.00)
[2017-10-11 03:23] LABS: CALCIUM-PROTEIN CORRECTED 7.4 MG/DL (8.5-10.1)
[2017-10-11 03:35] LABS: SODIUM,RANDOM URINE 16 MEQ/L
[2017-10-11 03:44] LABS: CREATININE, RANDOM URINE 282.7 MG/DL
[2017-10-11] MEDS: RESP: ALBUTEROL CONC 2.5 MG/0.5 ML NEB NEB (03:45)
[2017-10-11] MEDS: RESP: ALBUTEROL 2.5 MG/IPRATROPIUM 0.5 MG NEB (SCH) NEB ×4 (04:00→20:40)
[2017-10-11] MEDS: CHLORHEXIDINE GLUCONATE 2 % 1 PACK (2 CLOTHS) TOP (04:00)
[2017-10-11] MEDS ORDERED: TOBRAMYCIN INJ 200 MG in SODIUM CHLORIDE 0.9% INJ 100 ML IV (04:00)
[2017-10-11] MEDS: INSULIN HUMAN REGULAR 1,000 UNITS/10 ML VIAL IV PUSH (04:32)
[2017-10-11] MEDS: SODIUM POLYSTYRENE SULFONATE SUSP 15 GM/60 ML CUP PO (04:33)
[2017-10-11] MEDS ORDERED: LORazepam 2 MG/ML VIAL IV PUSH (04:45)
[2017-10-11] MEDS: LORazepam 2 MG/ML VIAL IV PUSH (05:07)
[2017-10-11] MEDS: SODIUM CHLORIDE 0.9% IV (05:25)
[2017-10-11] MEDS: TOBRAMYCIN IV (05:25)
[2017-10-11] MEDS: PIPERACIL-TAZO 2.25 GM PREMIX 50 ML IV ×3 (06:51→18:40)
[2017-10-11] MEDS: INSULIN ASPART SUPPLEMENTAL SCALE SQ ×4 (08:00→22:00)
[2017-10-11] MEDS: LIDOCAINE 2% JELLY 5 ML TUBE OTHER (08:45)
[2017-10-11] MEDS ORDERED: LIDOCAINE HCL 2% PF 5 ML VIAL (08:45)
[2017-10-11] MEDS: SODIUM CHLORIDE 0.9% FLUSH 10 ML FLUSH IV FLUSH ×2 (09:00→22:00)
[2017-10-11] MEDS: FLUTICASONE PROPIONATE 50 MCG/ACT 16 GM NASAL SPRAY NASAL ×2 (09:00→22:00)
[2017-10-11] MEDS: PARoxetine HCL 20 MG TAB PO (09:00)
[2017-10-11] MEDS: BUDESONIDE-FORMOTEROL 160/4.5 MCG INHALER INH ×2 (09:00→22:01)
[2017-10-11] MEDS: DOCUSATE SODIUM 100 MG CAP PO ×3 (09:00→18:00)
[2017-10-11] MEDS: PANTOPRAZOLE SOD 20 MG DELAYED RELEASE TAB PO ×2 (09:00→22:00)
[2017-10-11] MEDS ORDERED: CHLORHEXIDINE GLUCONATE 2 % 1 PACK (2 CLOTHS)(extra cloths) TOPICAL (12:15)
[2017-10-11] MEDS: LIDOCAINE HCL 2% JELLY 5 ML SYRINGE (13:58)
[2017-10-11] MEDS: LIDOCAINE 2% JELLY 30 ML TUBE (13:59)
[2017-10-11] MEDS: ACETAMINOPHEN/HYDROcodone 325 MG/5 MG TAB PO (16:37)
[2017-10-11 19:00] LABS: POTASSIUM 5.9 MEQ/L (3.5-5.1)
[2017-10-11] MEDS: HEPARIN SODIUM - SQ 10,000 UNITS/ML VIAL SQ (22:00)
[2017-10-12] MEDS: SODIUM CHLOR 0.9% 1000 ML INJ 1,000 ML IV ×3 (00:42→15:32)
[2017-10-12] MEDS: methylPREDNISolone SOD SUCC 40 MG/1 ML VIAL IV PUSH ×5 (00:51→23:45)
[2017-10-12] MEDS: PIPERACIL-TAZO 2.25 GM PREMIX 50 ML IV ×3 (00:51→12:38)
[2017-10-12] MEDS: RESP: ALBUTEROL 2.5 MG/IPRATROPIUM 0.5 MG NEB (SCH) NEB ×4 (03:38→21:00)
[2017-10-12] MEDS: CHLORHEXIDINE GLUCONATE 2 % 1 PACK (2 CLOTHS)(taper/protocol) TOPICAL (04:00)
[2017-10-12 06:57] LABS: ANION GAP 9 MEQ/L (5-15); BICARBONATE 29.4 MEQ/L (21.0-32.0); BLOOD UREA NITROGEN 74 MG/DL (7-18); CALCIUM 7.2 MG/DL (8.5-10.1); CHLORIDE 92 MEQ/L (98-107); CREATININE 4.65 MG/DL (0.60-1.30); GLOMERULAR FILTRATION RATE 13 ML/MIN (>89); GLUCOSE,RANDOM 264 MG/DL (74-106); POTASSIUM 5.8 MEQ/L (3.5-5.1); SODIUM (NA) 130 MEQ/L (136-145)
[2017-10-12 07:09] LABS: TOTAL PROTEIN 7.4 GM/DL (6.4-8.2)
[2017-10-12 07:15] LABS: CALCIUM-PROTEIN CORRECTED 7.1 MG/DL (8.5-10.1)
[2017-10-12] MEDS: INSULIN ASPART SUPPLEMENTAL SCALE SQ ×4 (08:00→21:39)
[2017-10-12] MEDS: SODIUM CHLORIDE 0.9% FLUSH 10 ML FLUSH IV FLUSH ×2 (08:38→21:00)
[2017-10-12] MEDS: BUDESONIDE-FORMOTEROL 160/4.5 MCG INHALER INH ×2 (08:38→21:35)
[2017-10-12] MEDS: FLUTICASONE PROPIONATE 50 MCG/ACT 16 GM NASAL SPRAY NASAL ×2 (08:39→21:35)
[2017-10-12] MEDS: DOCUSATE SODIUM 100 MG CAP PO ×3 (08:39→17:11)
[2017-10-12] MEDS: HEPARIN SODIUM - SQ 10,000 UNITS/ML VIAL SQ ×2 (08:39→21:35)
[2017-10-12] MEDS: PANTOPRAZOLE SOD 20 MG DELAYED RELEASE TAB PO ×2 (08:40→21:35)
[2017-10-12] MEDS: PARoxetine HCL 20 MG TAB PO (08:40)
[2017-10-12] MEDS: CALCIUM CHLORIDE INJ 1 GM in SODIUM CHLORIDE 0.9% INJ 100 ML IV (12:37)
[2017-10-12 13:17] LABS: AUTOMATED NEUTROPHIL # 11.3 TH/MM3 (1.8-7.7); BASOPHIL % 0.4 % (0.0-2.0); HEMATOCRIT 34.6 % (39.0-51.0); HEMO FLAGS DIFF FINAL; HEMOGLOBIN 10.1 GM/DL (13.0-17.0); LYMPH % 1.9 % (9.0-44.0); LYMPHOCYTE # 0.2 TH/MM3 (1.0-4.8); MEAN CELL VOLUME 82.8 FL (80.0-100.0); MEAN CORPUSCULAR HEMOGLOBIN 24.1 PG (27.0-34.0); MEAN PLATELET VOLUME 9.1 FL (7.0-11.0); MONO % 2.3 % (0.0-8.0); MONOCYTE # 0.3 TH/MM3 (0-0.9); NEUT % 95.4 % (16.0-70.0); PLATELET COUNT 181 TH/MM3 (150-450); RED BLOOD COUNT 4.18 MIL/MM3 (4.50-5.90); RED CELL DISTRIBUTION WIDTH 18.4 % (11.6-17.2); WHITE BLOOD COUNT 11.9 TH/MM3 (4.0-11.0)
[2017-10-12 13:20] LABS: MEAN CORPUSCULAR HGB CONC 29.2 % (32.0-36.0)
[2017-10-12 13:50] LABS: ALBUMIN 2.9 GM/DL (3.4-5.0); ALKALINE PHOSPHATASE 82 U/L (45-117); ALT (GPT) 26 U/L (12-78); ANION GAP 9 MEQ/L (5-15); AST (GOT) 24 U/L (15-37); BLOOD UREA NITROGEN 76 MG/DL (7-18); CALCIUM 6.6 MG/DL (8.5-10.1); CHLORIDE 95 MEQ/L (98-107); CREATININE 4.12 MG/DL (0.60-1.30); GLOMERULAR FILTRATION RATE 15 ML/MIN (>89); GLUCOSE,RANDOM 281 MG/DL (74-106); MAGNESIUM 2.6 MG/DL (1.5-2.5); POTASSIUM 5.7 MEQ/L (3.5-5.1); SODIUM (NA) 131 MEQ/L (136-145); TOTAL BILIRUBIN ADULT 0.4 MG/DL (0.2-1.0); TOTAL PROTEIN 7.4 GM/DL (6.4-8.2)
[2017-10-12] MEDS: INSULIN HUMAN REGULAR 1,000 UNITS/10 ML VIAL IV PUSH (14:15)
[2017-10-12 14:17] LABS: CALCIUM-PROTEIN CORRECTED 6.5 MG/DL (8.5-10.1)
[2017-10-12] MEDS: DEXTROSE 50% IN WATER 50 ML SYRINGE IV PUSH (14:59)
[2017-10-12] MEDS: SODIUM BICARBONATE 8.4% INJ 50 MEQ/50 ML SYR IV PUSH (14:59)
[2017-10-12] MEDS: cefTRIAXone INJ 2,000 MG in SODIUM CHLORIDE 0.9% INJ 100 ML IV (15:53)
[2017-10-12 17:09] LABS: PARATHYROID HORMONE INTACT 457.9 PG/ML (12.4-76.8)
[2017-10-13] MEDS: RESP: ALBUTEROL 2.5 MG/IPRATROPIUM 0.5 MG NEB (SCH) NEB ×4 (03:38→21:10)
[2017-10-13] MEDS: CHLORHEXIDINE GLUCONATE 2 % 1 PACK (2 CLOTHS)(taper/protocol) TOPICAL (04:00)
[2017-10-13] MEDS: methylPREDNISolone SOD SUCC 40 MG/1 ML VIAL IV PUSH ×3 (06:49→17:59)
[2017-10-13] MEDS: ACETAMINOPHEN/HYDROcodone 325 MG/10 MG TAB PO ×3 (06:49→18:21)
[2017-10-13] MEDS: INSULIN ASPART SUPPLEMENTAL SCALE SQ ×4 (08:00→21:27)
[2017-10-13] MEDS: ASPIRIN 325 MG TAB PO (08:26)
[2017-10-13] MEDS: CALCIUM ACETATE 667 MG CAP PO ×3 (08:26→17:59)
[2017-10-13] MEDS: CHOLECALCIFEROL (VIT D3) 5000 UNIT CAP PO (08:26)
[2017-10-13] MEDS: DOCUSATE SODIUM 100 MG CAP PO ×3 (08:27→17:59)
[2017-10-13] MEDS: PARoxetine HCL 20 MG TAB PO (08:27)
[2017-10-13] MEDS: HEPARIN SODIUM - SQ 10,000 UNITS/ML VIAL SQ ×2 (08:27→21:27)
[2017-10-13] MEDS: CLOPIDOGREL 75 MG TAB PO (08:27)
[2017-10-13] MEDS: PANTOPRAZOLE SOD 20 MG DELAYED RELEASE TAB PO ×2 (08:27→21:26)
[2017-10-13] MEDS: SODIUM CHLORIDE 0.9% FLUSH 10 ML FLUSH IV FLUSH ×2 (08:28→21:25)
[2017-10-13] MEDS: BUDESONIDE-FORMOTEROL 160/4.5 MCG INHALER INH ×2 (08:28→21:25)
[2017-10-13] MEDS: FLUTICASONE PROPIONATE 50 MCG/ACT 16 GM NASAL SPRAY NASAL ×2 (08:28→21:26)
[2017-10-13] MEDS: SODIUM CHLOR 0.9% 1000 ML INJ 1,000 ML IV (11:18)
[2017-10-13 12:43] LABS: HEMATOCRIT 34.1 % (39.0-51.0); HEMOGLOBIN 10.4 GM/DL (13.0-17.0); MEAN CELL VOLUME 81.9 FL (80.0-100.0); MEAN CORPUSCULAR HEMOGLOBIN 24.9 PG (27.0-34.0); MEAN CORPUSCULAR HGB CONC 30.4 % (32.0-36.0); MEAN PLATELET VOLUME 9.2 FL (7.0-11.0); PLATELET COUNT 171 TH/MM3 (150-450); RED BLOOD COUNT 4.17 MIL/MM3 (4.50-5.90); RED CELL DISTRIBUTION WIDTH 18.4 % (11.6-17.2); REVIEW FLAG FINAL
[2017-10-13 15:03] LABS: ALBUMIN 2.8 GM/DL (3.4-5.0); ANION GAP 8 MEQ/L (5-15); BICARBONATE 28.4 MEQ/L (21.0-32.0); BLOOD UREA NITROGEN 67 MG/DL (7-18); CALCIUM 7.6 MG/DL (8.5-10.1); CHLORIDE 99 MEQ/L (98-107); CREATININE 2.66 MG/DL (0.60-1.30); GLOMERULAR FILTRATION RATE 25 ML/MIN (>89); GLUCOSE,RANDOM 370 MG/DL (74-106); PHOSPHORUS 3.4 MG/DL (2.5-4.9); POTASSIUM 5.5 MEQ/L (3.5-5.1); SODIUM (NA) 135 MEQ/L (136-145)
[2017-10-13] MEDS: cefTRIAXone INJ 2,000 MG in SODIUM CHLORIDE 0.9% INJ 100 ML IV (15:17)
[2017-10-13] MEDS: INSULIN DETEMIR 100 UNITS/ML VIAL SQ ×2 (17:59→21:27)
[2017-10-13] MEDS ORDERED: INSULIN DETEMIR 100 UNITS/ML VIAL SQ ×2 (18:15→21:00)
[2017-10-13] MEDS: ACETAMINOPHEN/HYDROcodone 325 MG/5 MG TAB PO (21:26)
[2017-10-14] MEDS: ONDANSETRON HCL 4 MG/2 ML VIAL (00:32)
[2017-10-14] MEDS: CHLORHEXIDINE GLUCONATE 2 % 1 PACK (2 CLOTHS)(taper/protocol) TOPICAL (03:13)
[2017-10-14] MEDS: methylPREDNISolone SOD SUCC 40 MG/1 ML VIAL IV PUSH ×2 (05:10→17:43)
[2017-10-14] MEDS: INSULIN ASPART SUPPLEMENTAL SCALE SQ ×4 (08:56→21:28)
[2017-10-14] MEDS: DOCUSATE SODIUM 100 MG CAP PO ×3 (08:59→17:43)
[2017-10-14] MEDS: CALCIUM ACETATE 667 MG CAP PO ×3 (08:59→17:43)
[2017-10-14] MEDS: CHOLECALCIFEROL (VIT D3) 5000 UNIT CAP PO (08:59)
[2017-10-14] MEDS: HEPARIN SODIUM - SQ 10,000 UNITS/ML VIAL SQ ×2 (08:59→21:24)
[2017-10-14] MEDS: PARoxetine HCL 20 MG TAB PO (08:59)
[2017-10-14] MEDS: ASPIRIN 325 MG TAB PO (09:00)
[2017-10-14] MEDS: CLOPIDOGREL 75 MG TAB PO (09:00)
[2017-10-14] MEDS: PANTOPRAZOLE SOD 20 MG DELAYED RELEASE TAB PO ×2 (09:01→21:22)
[2017-10-14] MEDS: INSULIN DETEMIR 100 UNITS/ML VIAL SQ ×2 (09:01→21:28)
[2017-10-14] MEDS: FLUTICASONE PROPIONATE 50 MCG/ACT 16 GM NASAL SPRAY NASAL ×2 (09:01→21:25)
[2017-10-14] MEDS: SODIUM CHLORIDE 0.9% FLUSH 10 ML FLUSH IV FLUSH ×2 (09:01→21:31)
[2017-10-14] MEDS: BUDESONIDE-FORMOTEROL 160/4.5 MCG INHALER INH ×2 (09:01→21:25)
[2017-10-14 09:23] LABS: ALBUMIN 2.8 GM/DL (3.4-5.0); ALKALINE PHOSPHATASE 75 U/L (45-117); ALT (GPT) 24 U/L (12-78); ANION GAP 4 MEQ/L (5-15); AST (GOT) 14 U/L (15-37); BICARBONATE 30.7 MEQ/L (21.0-32.0); BLOOD UREA NITROGEN 55 MG/DL (7-18); CHLORIDE 103 MEQ/L (98-107); CREATININE 1.98 MG/DL (0.60-1.30); GLOMERULAR FILTRATION RATE 35 ML/MIN (>89); GLUCOSE,RANDOM 276 MG/DL (74-106); POTASSIUM 5.2 MEQ/L (3.5-5.1); SODIUM (NA) 138 MEQ/L (136-145); TOTAL BILIRUBIN ADULT 0.4 MG/DL (0.2-1.0); TOTAL PROTEIN 7.1 GM/DL (6.4-8.2)
[2017-10-14] MEDS: cefTRIAXone INJ 2,000 MG in SODIUM CHLORIDE 0.9% INJ 100 ML IV (15:44)
[2017-10-14] MEDS: ACETAMINOPHEN/HYDROcodone 325 MG/10 MG TAB PO (21:23)
[2017-10-15] MEDS: CHLORHEXIDINE GLUCONATE 2 % 1 PACK (2 CLOTHS)(taper/protocol) TOPICAL (03:16)
[2017-10-15] MEDS: methylPREDNISolone SOD SUCC 40 MG/1 ML VIAL IV PUSH (05:19)
[2017-10-15 07:04] LABS: ANION GAP 3 MEQ/L (5-15); BICARBONATE 33.3 MEQ/L (21.0-32.0); BLOOD UREA NITROGEN 49 MG/DL (7-18); CALCIUM 7.8 MG/DL (8.5-10.1); CHLORIDE 104 MEQ/L (98-107); CREATININE 1.71 MG/DL (0.60-1.30); GLOMERULAR FILTRATION RATE 42 ML/MIN (>89); GLUCOSE,RANDOM 239 MG/DL (74-106); POTASSIUM 5.2 MEQ/L (3.5-5.1); SODIUM (NA) 140 MEQ/L (136-145)
[2017-10-15] MEDS: PANTOPRAZOLE SOD 20 MG DELAYED RELEASE TAB PO ×2 (08:30→21:38)
[2017-10-15] MEDS: CHOLECALCIFEROL (VIT D3) 5000 UNIT CAP PO (08:30)
[2017-10-15] MEDS: PARoxetine HCL 20 MG TAB PO (08:30)
[2017-10-15] MEDS: HEPARIN SODIUM - SQ 10,000 UNITS/ML VIAL SQ (08:30)
[2017-10-15] MEDS: DOCUSATE SODIUM 100 MG CAP PO ×3 (08:31→17:01)
[2017-10-15] MEDS: FLUTICASONE PROPIONATE 50 MCG/ACT 16 GM NASAL SPRAY NASAL ×2 (08:31→21:37)
[2017-10-15] MEDS: ASPIRIN 325 MG TAB PO (08:31)
[2017-10-15] MEDS: CALCIUM ACETATE 667 MG CAP PO ×3 (08:32→17:01)
[2017-10-15] MEDS: BUDESONIDE-FORMOTEROL 160/4.5 MCG INHALER INH ×2 (08:32→21:37)
[2017-10-15] MEDS: INSULIN ASPART SUPPLEMENTAL SCALE SQ ×4 (08:32→21:52)
[2017-10-15] MEDS: SODIUM CHLORIDE 0.9% FLUSH 10 ML FLUSH IV FLUSH ×2 (08:32→21:38)
[2017-10-15] MEDS: CLOPIDOGREL 75 MG TAB PO (08:33)
[2017-10-15] MEDS: INSULIN DETEMIR 100 UNITS/ML VIAL SQ ×2 (08:33→21:52)
[2017-10-15] MEDS: ACETAMINOPHEN/HYDROcodone 325 MG/10 MG TAB PO (08:33)
[2017-10-15] MEDS: CARVEDILOL 3.125 MG TAB PO ×2 (10:24→21:38)
[2017-10-15] MEDS ORDERED: DOCUSATE SODIUM 100 MG CAP PO (14:00)
[2017-10-15] MEDS: cefTRIAXone INJ 2,000 MG in SODIUM CHLORIDE 0.9% INJ 100 ML IV (15:35)
[2017-10-15 18:10] LABS: ANION GAP 3 MEQ/L (5-15); BICARBONATE 33.4 MEQ/L (21.0-32.0); BLOOD UREA NITROGEN 44 MG/DL (7-18); CHLORIDE 101 MEQ/L (98-107); GLOMERULAR FILTRATION RATE 42 ML/MIN (>89); GLUCOSE,RANDOM 322 MG/DL (74-106); POTASSIUM 5.4 MEQ/L (3.5-5.1); SODIUM (NA) 137 MEQ/L (136-145)
[2017-10-16] MEDS: CHLORHEXIDINE GLUCONATE 2 % 1 PACK (2 CLOTHS)(taper/protocol) TOPICAL (03:39)
[2017-10-16 07:48] LABS: HEMATOCRIT 36.2 % (39.0-51.0); HEMOGLOBIN 10.9 GM/DL (13.0-17.0); MEAN CELL VOLUME 82.3 FL (80.0-100.0); MEAN CORPUSCULAR HEMOGLOBIN 24.9 PG (27.0-34.0); MEAN CORPUSCULAR HGB CONC 30.2 % (32.0-36.0); MEAN PLATELET VOLUME 8.9 FL (7.0-11.0); PLATELET COUNT 148 TH/MM3 (150-450); RED CELL DISTRIBUTION WIDTH 17.5 % (11.6-17.2); REVIEW FLAG FINAL; WHITE BLOOD COUNT 8.1 TH/MM3 (4.0-11.0)
[2017-10-16] MEDS: INSULIN ASPART SUPPLEMENTAL SCALE SQ ×4 (07:48→22:15)
[2017-10-16] MEDS: FLUTICASONE PROPIONATE 50 MCG/ACT 16 GM NASAL SPRAY NASAL ×2 (09:26→22:05)
[2017-10-16] MEDS: BUDESONIDE-FORMOTEROL 160/4.5 MCG INHALER INH ×2 (09:26→22:05)
[2017-10-16] MEDS: predniSONE 20 MG TAB PO (09:27)
[2017-10-16] MEDS: ASPIRIN 325 MG TAB PO (09:27)
[2017-10-16] MEDS: CARVEDILOL 3.125 MG TAB PO ×2 (09:27→22:05)
[2017-10-16] MEDS: LEVOFLOXACIN 750 MG TAB PO (09:27)
[2017-10-16] MEDS: CLOPIDOGREL 75 MG TAB PO (09:27)
[2017-10-16] MEDS: PANTOPRAZOLE SOD 20 MG DELAYED RELEASE TAB PO ×2 (09:27→22:05)
[2017-10-16] MEDS: DOCUSATE SODIUM 100 MG CAP PO ×3 (09:27→16:54)
[2017-10-16] MEDS: CHOLECALCIFEROL (VIT D3) 5000 UNIT CAP PO (09:27)
[2017-10-16] MEDS: INSULIN DETEMIR 100 UNITS/ML VIAL SQ ×2 (09:28→22:15)
[2017-10-16] MEDS: PARoxetine HCL 20 MG TAB PO (09:28)
[2017-10-16] MEDS: ACETAMINOPHEN/HYDROcodone 325 MG/10 MG TAB PO ×2 (09:28→18:48)
[2017-10-16] MEDS: SODIUM CHLORIDE 0.9% FLUSH 10 ML FLUSH IV FLUSH ×2 (09:28→22:05)
[2017-10-16 14:27] LABS: ANION GAP 6 MEQ/L (5-15); BICARBONATE 29.9 MEQ/L (21.0-32.0); CALCIUM 8.3 MG/DL (8.5-10.1); CHLORIDE 103 MEQ/L (98-107); CREATININE 1.36 MG/DL (0.60-1.30); GLOMERULAR FILTRATION RATE 54 ML/MIN (>89); GLUCOSE,RANDOM 265 MG/DL (74-106); POTASSIUM 6.3 MEQ/L (3.5-5.1); SODIUM (NA) 139 MEQ/L (136-145)
[2017-10-16 14:28] LABS: BLOOD UREA NITROGEN 37 MG/DL (7-18)
[2017-10-16] MEDS: TAMSULOSIN HCL 0.4 MG CAP PO (16:54)
[2017-10-16] MEDS: ZOLPIDEM TARTRATE 5 MG TAB PO (22:16)
[2017-10-17] MEDS: INSULIN ASPART SUPPLEMENTAL SCALE SQ ×2 (08:00→13:21)
[2017-10-17] MEDS: ASPIRIN 325 MG TAB PO (09:00)
[2017-10-17 09:10] LABS: ALBUMIN 2.3 GM/DL (3.4-5.0); ANION GAP 4 MEQ/L (5-15); BICARBONATE 34.7 MEQ/L (21.0-32.0); BLOOD UREA NITROGEN 31 MG/DL (7-18); CALCIUM 8.3 MG/DL (8.5-10.1); CHLORIDE 101 MEQ/L (98-107); CREATININE 1.33 MG/DL (0.60-1.30); GLOMERULAR FILTRATION RATE 56 ML/MIN (>89); GLUCOSE,RANDOM 178 MG/DL (74-106); PHOSPHORUS 1.6 MG/DL (2.5-4.9); POTASSIUM 4.6 MEQ/L (3.5-5.1); SODIUM (NA) 140 MEQ/L (136-145)
[2017-10-17] MEDS: TAMSULOSIN HCL 0.4 MG CAP PO (10:36)
[2017-10-17] MEDS: CLOPIDOGREL 75 MG TAB PO (10:36)
[2017-10-17] MEDS: predniSONE 20 MG TAB PO (10:36)
[2017-10-17] MEDS: CARVEDILOL 3.125 MG TAB PO (10:36)
[2017-10-17] MEDS: INSULIN DETEMIR 100 UNITS/ML VIAL SQ (10:36)
[2017-10-17] MEDS: LEVOFLOXACIN 750 MG TAB PO (10:36)
[2017-10-17] MEDS: PARoxetine HCL 20 MG TAB PO (10:37)
[2017-10-17] MEDS: DOCUSATE SODIUM 100 MG CAP PO ×2 (10:37→13:22)
[2017-10-17] MEDS: PANTOPRAZOLE SOD 20 MG DELAYED RELEASE TAB PO (10:37)
[2017-10-17] MEDS: SODIUM CHLORIDE 0.9% FLUSH 10 ML FLUSH IV FLUSH (10:38)
[2017-10-17] MEDS: BUDESONIDE-FORMOTEROL 160/4.5 MCG INHALER INH (10:40)
[2017-10-17] MEDS: FLUTICASONE PROPIONATE 50 MCG/ACT 16 GM NASAL SPRAY NASAL (10:40)
[2017-10-17] MEDS: CHOLECALCIFEROL (VIT D3) 5000 UNIT CAP PO (10:43)
[2017-10-17] MEDS: POTASSIUM PHOSPHATE/SODIUM PHOSPHATE 250 MG TAB PO (14:33)
== END 2017-10-17 15:03 | disposition home or self-care (01) | DRG 871 ==
LOC: HIME 10-10 00:40 → N04B 10-14 00:35 → HIME 10-11 19:55 → NEPC 17:33 → NEDA 21:04
PROC: 5A09357 Assistance with Respiratory Ventilation, Less than 24 Consecutive Hours, Continuous Positive Airway Pressure (ICD-10-PCS; principal; 2017-10-11 13:44)
PROC: 0T7D8ZZ Dilation of Urethra, Via Natural or Artificial Opening Endoscopic (ICD-10-PCS; 2017-10-11 13:44)
PROC: 0T9B80Z Drainage of Bladder with Drainage Device, Via Natural or Artificial Opening Endoscopic (ICD-10-PCS; 2017-10-11 13:44)
DX: A41.51 Sepsis due to Escherichia coli [E. coli] (principal); G93.41 Metabolic encephalopathy; N17.0 Acute kidney failure with tubular necrosis; J96.11 Chronic respiratory failure with hypoxia; J96.12 Chronic respiratory failure with hypercapnia; I13.0 Hypertensive heart and chronic kidney disease with heart failure and stage 1 through stage 4 chronic kidney disease, or unspecified chronic kidney disease; I42.9 Cardiomyopathy, unspecified; Z68.44 Body mass index [BMI] 60.0-69.9, adult; J44.1 Chronic obstructive pulmonary disease with (acute) exacerbation; N39.0 Urinary tract infection, site not specified; I50.9 Heart failure, unspecified; N18.3 Chronic kidney disease, stage 3 (moderate); R65.20 Severe sepsis without septic shock; E11.22 Type 2 diabetes mellitus with diabetic chronic kidney disease; E11.42 Type 2 diabetes mellitus with diabetic polyneuropathy; E66.01 Morbid (severe) obesity due to excess calories; I48.91 Unspecified atrial fibrillation; Z99.81 Dependence on supplemental oxygen; I25.10 Atherosclerotic heart disease of native coronary artery without angina pectoris; G47.33 Obstructive sleep apnea (adult) (pediatric); I87.8 Other specified disorders of veins; I86.1 Scrotal varices; E78.5 Hyperlipidemia, unspecified; D63.1 Anemia in chronic kidney disease; I25.5 Ischemic cardiomyopathy; E87.5 Hyperkalemia; N35.9 Urethral stricture, unspecified; E83.51 Hypocalcemia; E55.9 Vitamin D deficiency, unspecified; I25.2 Old myocardial infarction; K21.9 Gastro-esophageal reflux disease without esophagitis; K59.00 Constipation, unspecified; M10.9 Gout, unspecified; M19.90 Unspecified osteoarthritis, unspecified site; F31.9 Bipolar disorder, unspecified; F41.9 Anxiety disorder, unspecified; Z22.322 Carrier or suspected carrier of Methicillin resistant Staphylococcus aureus; Z79.4 Long term (current) use of insulin; Z82.49 Family history of ischemic heart disease and other diseases of the circulatory system; Z86.14 Personal history of Methicillin resistant Staphylococcus aureus infection; Z86.73 Personal history of transient ischemic attack (TIA), and cerebral infarction without residual deficits; Z87.891 Personal history of nicotine dependence; Z90.01 Acquired absence of eye; Z91.19 Patient's noncompliance with other medical treatment and regimen; Z95.1 Presence of aortocoronary bypass graft; Z95.5 Presence of coronary angioplasty implant and graft; Z95.810 Presence of automatic (implantable) cardiac defibrillator
CPT/HCPCS: 71045; 74176; 80048; 80053; 80069; 81001; 82306; 82550; 82552; 82570; 82948; 83605; 83735; 83880; 83970; 84100; 84132; 84153; 84155; 84300; 84484; 85025; 85027; 85384; 85610; 85730; 87040; 87077; 87086; 87149-59; 87186; 87205; 87641; 87804; 87804-59; 93005; 93306; 93970; 94002; 94003; 94640; 94664; 96374; 96375; 97110-GP; 97116-GP; 97163-GP; 99285-25

== ENCOUNTER 2017-10-21 17:45 | Emergency (ER) | payer OTHER ==
[~2017-10-21] VITALS: Ht 165.1 cm; Wt 170.0 kg
[~2017-10-21 17:45] MED LIST changes: +ADVA250A INH; -ALLO100T PO; -AMIO200T PO; -CARV12.52 PO; +CARV3.125 PO; -DICL75TA PO; -DOXY100C PO; -GLUCTES27; -ISOS60TA PO; +LEVA750T9 PO; -LISI-515 PO; +PRED5TAB PO; -SYMB160A INH; -ZOCO40TA PO; -[UNRECOGNIZED DRUG - CODE] SQ
[2017-10-21 17:57] VITALS: BP 118/65; PULSE 78; RESP 28; TEMP 99.3; O2SAT 98
[2017-10-21] MEDS ORDERED: AMIO200T PO (18:53)
[2017-10-21] MEDS ORDERED: SYMB80AE INH (18:53)
[2017-10-21] MEDS ORDERED: HYDR50CA PO (18:53)
[2017-10-21] MEDS ORDERED: DICL75TA PO (18:53)
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
--- NOTE | 2017-10-21 19:11 | RADRPT ---
EXAM DATE/TIME: 10/21/2017 18:57 [place] COMPARISON: CHEST SINGLE AP, October 12, 2017, 10:58. INDICATIONS : Shortness of breath. MEDICAL HISTORY : Chronic obstructive pulmonary disease. Hypertension. Gastroesophageal reflux disease.Stage 3 kidney d isease. Diabetes. SURGICAL HISTORY : CABG. Pacemaker. Cardiac stents. ENCOUNTER: Initial ACUITY: 3 days PAIN SCORE: 0/10 LOCATION: chest FINDINGS: Decreasing bibasilar atelectasis/edema, now minimal. No large effusion demonstrated. No pneumothorax. Heart size stable, mildly enlarged. Patient has had previous median sternotomy. Cardiac pacer/defibri llator again seen. CONCLUSION: Decreasing atelectasis/failure, now minimal. Roshan Mckenzie MD on October 21, 2017 at 19:07 Board Certified Radiologist. This report was verified electronically.
[2017-10-21 19:15] VITALS: O2SAT 99
[2017-10-21] MEDS ORDERED: RESP: ALBUTEROL 2.5 MG/IPRATROPIUM 0.5 MG NEB (SCH) INH ONE (19:15)
[2017-10-21 19:47] LABS: AUTOMATED NEUTROPHIL # 11.9 TH/MM3 (1.8-7.7); BASOPHIL % 0.1 % (0.0-2.0); EOSINOPHIL % 0.4 % (0.0-4.0); HEMATOCRIT 32.8 % (39.0-51.0); HEMOGLOBIN 9.7 GM/DL (13.0-17.0); LYMPH % 2.1 % (9.0-44.0); LYMPHOCYTE # 0.3 TH/MM3 (1.0-4.8); MEAN CELL VOLUME 81.5 FL (80.0-100.0); MEAN CORPUSCULAR HEMOGLOBIN 24.2 PG (27.0-34.0); MEAN PLATELET VOLUME 9.1 FL (7.0-11.0); MONO % 2.4 % (0.0-8.0); MONOCYTE # 0.3 TH/MM3 (0-0.9); PLATELET COUNT 166 TH/MM3 (150-450); RED BLOOD COUNT 4.03 MIL/MM3 (4.50-5.90); RED CELL DISTRIBUTION WIDTH 18.2 % (11.6-17.2); WHITE BLOOD COUNT 12.5 TH/MM3 (4.0-11.0)
[2017-10-21 19:49] LABS: MEAN CORPUSCULAR HGB CONC 29.6 % (32.0-36.0)
[2017-10-21 19:50] LABS: BILIRUBIN, URINE NEG (NEG); BLOOD, URINE SMALL (NEG); GLUCOSE,URINE 1000 mg/dL (NEG); KETONE, URINE NEG (NEG); MUCUS URINE FEW /lpf (OCC); NITRITE,URINE NEG (NEG); URINE COLOR YELLOW (YELLW/STRAW); URINE LEUKOCYTE ESTERASE LARGE (NEG); WHITE BLOOD CELL CLUMPS OCC
[2017-10-21 20:03] LABS: PROTHROMBIN TIME - PATIENT 10.6 SEC (9.8-11.6)
[2017-10-21 20:04] LABS: ALBUMIN 2.5 GM/DL (3.4-5.0); AST (GOT) 20 U/L (15-37); BICARBONATE 32.4 MEQ/L (21.0-32.0); BLOOD UREA NITROGEN 22 MG/DL (7-18); CALCIUM 7.7 MG/DL (8.5-10.1); CHLORIDE 100 MEQ/L (98-107); CREATININE 1.66 MG/DL (0.60-1.30); GLOMERULAR FILTRATION RATE 43 ML/MIN (>89); GLUCOSE,RANDOM 331 MG/DL (74-106); SODIUM (NA) 140 MEQ/L (136-145)
[2017-10-21 20:16] VITALS: RESP 16; O2SAT 98
[2017-10-21 20:16] LABS: ALKALINE PHOSPHATASE 73 U/L (45-117); ALT (GPT) 21 U/L (12-78); TOTAL BILIRUBIN ADULT 0.3 MG/DL (0.2-1.0); TOTAL PROTEIN 5.9 GM/DL (6.4-8.2); TROPONIN I 0.02 NG/ML (0.02-0.05)
[2017-10-21] MEDS ORDERED: DESIOIN3 TOPICAL (20:26)
--- NOTE | 2017-10-21 20:28 | PD ---
Data Data Last Documented VS Vital Signs Date Time Temp Pulse Resp B/P (MAP) Pulse Ox O2 Delivery O2 Flow Rate FiO2 10/21/17 20:16 16 98 Room Air 10/21/17 18:35 4.00 10/21/17 17:57 99.3 78 118/65 (82) Orders Orders Electrocardiogram (10/21/17 18:44) Complete Blood Count With Diff (10/21/17 18:44) Comprehensive Metabolic Panel (10/21/17 18:44) Creatine Kinase (Cpk) (10/21/17 18:44) Troponin I (10/21/17 18:44) B-Type Natriuretic Peptide (10/21/17 18:44) Prothrombin Time / Inr (Pt) (10/21/17 18:44) Act Partial Throm Time (Ptt) (10/21/17 18:44) Urinalysis - C+S If Indicated (10/21/17 18:44) Thyroid Stimulating Hormone (10/21/17 18:44) Chest, Single Ap (10/21/17 18:44) Iv Access Insert/Monitor (10/21/17 18:44) Ecg Monitoring (10/21/17 18:44) Oximetry (10/21/17 18:44) Albuterol-Ipratropium Neb (Duoneb Neb) (10/21/17 19:15) Urine Culture (10/21/17 18:55) Labs Laboratory Tests Test 10/21/17 18:55 White Blood Count 12.5 TH/MM3 Red Blood Count 4.03 MIL/MM3 Hemoglobin 9.7 GM/DL Hematocrit 32.8 % Mean Corpuscular Volume 81.5 FL Mean Corpuscular Hemoglobin 24.2 PG Mean Corpuscular Hemoglobin Concent 29.6 % Red Cell Distribution Width 18.2 % Platelet Count 166 TH/MM3 Mean Platelet Volume 9.1 FL Neutrophils (%) (Auto) 95.0 % Lymphocytes (%) (Auto) 2.1 % Monocytes (%) (Auto) 2.4 % Eosinophils (%) (Auto) 0.4 % Basophils (%) (Auto) 0.1 % Neutrophils # (Auto) 11.9 TH/MM3 Lymphocytes # (Auto) 0.3 TH/MM3 Monocytes # (Auto) 0.3 TH/MM3 Eosinophils # (Auto) 0.0 TH/MM3 Basophils # (Auto) 0.0 TH/MM3 CBC Comment DIFF FINAL Differential Comment Prothrombin Time 10.6 SEC Prothromb Time International Ratio 1.0 RATIO Activated Partial Thromboplast Time 22.6 SEC Urine Color YELLOW Urine Turbidity HAZY Urine pH 5.0 Urine Specific [place] 1.011 Urine Protein NEG mg/dL Urine Glucose (UA) 1000 mg/dL Urine Ketones NEG mg/dL Urine Occult Blood SMALL Urine Nitrite NEG Urine Bilirubin NEG Urine Urobilinogen LESS THAN 2.0 MG/DL Urine Leukocyte Esterase LARGE Urine RBC 18 /hpf Urine WBC 34 /hpf Urine WBC Clumps OCC Urine Mucus FEW /lpf Microscopic Urinalysis Comment CULTURE INDICATED Blood Urea Nitrogen 22 MG/DL Creatinine 1.66 MG/DL Random Glucose 331 MG/DL Total Protein 5.9 GM/DL Albumin 2.5 GM/DL Calcium Level 7.7 MG/DL Alkaline Phosphatase 73 U/L Aspartate Amino Transf (AST/SGOT) 20 U/L Alanine Aminotransferase (ALT/SGPT) 21 U/L Total Bilirubin 0.3 MG/DL Sodium Level 140 MEQ/L Potassium Level 4.2 MEQ/L Chloride Level 100 MEQ/L Carbon Dioxide Level 32.4 MEQ/L Anion Gap 8 MEQ/L Estimat Glomerular Filtration Rate 43 ML/MIN Total Creatine Kinase 160 U/L Troponin I 0.02 NG/ML B-Type Natriuretic Peptide 73 PG/ML Thyroid Stimulating Hormone 3rd Gen 1.300 uIU/ML [facility] Medical Record Reviewed: Yes Supervised Visit with OCHOA: No Narrative Course CBC & BMP Diagram 10/21/17 18:55 Total Protein 5.9 L, Albumin 2.5 L, Calcium Level 7.7 L, Alkaline Phosphatase 73 , Aspartate Amino Transf (AST/SGOT) 20, Alanine Aminotransferase (ALT/SGPT) 21, Total Bilirubin 0.3 BNP and troponin are within acceptable limits for discharge Examination of the scrotal perineum reveals no crepitus noted with cellulitis and induration erythema or discharge. There is no area of denuded epidermis approximately 1 cm in greatest diameter. Unfortunately the patient edema at 64 cannot apply Desitin cream on itself and he has insurance to have visiting nurse assist. Case management discussed with the patient options with patient assistance and the patient records specialist with the patient as well. The patient requested a prescription for hospital bed. Desitin cream prescription will be written. He has leukocytosis of 12.5 which is considered nonspecific in the setting of concurrent prednisone use. Diagnosis Primary Impression: Rash and nonspecific skin eruption Referrals: Patient Assistance Program 2 days Med/Other Pt SpecificInfo: Prescription(s) given Scripts Diaper Rash Products (Desitin Topical) 1 Application Oint 1 APPLIC TOPICAL BID Y for RASH for 14 Days, GM 0 Refills Prov: Shravan Kruse MD 10/21/17 Disposition: 01 DISCHARGE HOME Condition: Stable Shravan Kruse MD Oct 21, 2017 20:28
--- NOTE | 2017-10-22 12:20 | EKG ---
Date Performed: 10/21/2017 Time Performed: 17:55:28 PTAGE: 57 years EKG: Sinus rhythm MODERATE INTRAVENTRICULAR CONDUCTION DELAY BORDERLINE ECG INTERPRETATION BASED ON A DEFAULT AGE OF 4 0 YEARS PREVIOUS TRACING : 10/11/2017 04.11 Since the prior tracing, there has been no significan t change DOCTOR: Maciej Felix Interpretating Date/Time 10/22/2017 12:19:07
== END 2017-10-21 21:38 | disposition home or self-care (01) ==
LOC: NEPE 17:45
DX: R21 Rash and other nonspecific skin eruption (principal); J44.9 Chronic obstructive pulmonary disease, unspecified; M79.89 Other specified soft tissue disorders; E11.9 Type 2 diabetes mellitus without complications; I10 Essential (primary) hypertension; I25.2 Old myocardial infarction; Z79.02 Long term (current) use of antithrombotics/antiplatelets; Z79.4 Long term (current) use of insulin; Z87.891 Personal history of nicotine dependence; Z99.81 Dependence on supplemental oxygen
CPT/HCPCS: 71045; 80053; 81001; 82550; 83880; 84443; 84484; 85025; 85610; 85730; 87086; 93005; 94664

== ENCOUNTER 2017-10-23 16:11 | Emergency (ER) | payer OTHER ==
[~2017-10-23] VITALS: Ht 165.1 cm; Wt 172.7 kg
[~2017-10-23 16:11] MED LIST changes: +AMIO200T PO; +DESIOIN3 TOPICAL; +DICL75TA PO; +HYDR50CA PO; -LEVA750T9 PO; -PRED5TAB PO; +SYMB80AE INH
[2017-10-23 16:15] VITALS: BP 154/116; PULSE 75; RESP 22; TEMP 99; O2SAT 96
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
[2017-10-23] MEDS ORDERED: NYST10007 TOPICAL (17:43)
== END 2017-10-23 18:34 | disposition home or self-care (01) ==
LOC: NEPD 16:11
DX: T83.091A Other mechanical complication of indwelling urethral catheter, initial encounter (principal); B37.9 Candidiasis, unspecified; N39.0 Urinary tract infection, site not specified; J44.9 Chronic obstructive pulmonary disease, unspecified; I10 Essential (primary) hypertension; E78.00 Pure hypercholesterolemia, unspecified; E11.9 Type 2 diabetes mellitus without complications; K21.9 Gastro-esophageal reflux disease without esophagitis; F41.9 Anxiety disorder, unspecified; F31.9 Bipolar disorder, unspecified; I25.2 Old myocardial infarction; Z86.73 Personal history of transient ischemic attack (TIA), and cerebral infarction without residual deficits; Z86.14 Personal history of Methicillin resistant Staphylococcus aureus infection; Z95.1 Presence of aortocoronary bypass graft; Z95.5 Presence of coronary angioplasty implant and graft; Z95.810 Presence of automatic (implantable) cardiac defibrillator; Z88.5 Allergy status to narcotic agent; Z79.82 Long term (current) use of aspirin; Z79.899 Other long term (current) drug therapy; Z79.4 Long term (current) use of insulin
CPT/HCPCS: 51700

== ENCOUNTER 2017-10-25 10:08 | Emergency (ER) | payer SELFPAY ==
[~2017-10-25] VITALS: Ht 165.1 cm; Wt 175.0 kg
[~2017-10-25 10:08] MED LIST changes: +NYST10007 TOPICAL
[2017-10-25 10:09] VITALS: BP 233/114; PULSE 78; RESP 20; TEMP 99.3; O2SAT 100
[2017-10-25 11:14] LABS: BACTERIA, URINE OCC /hpf; BILIRUBIN, URINE NEG (NEG); BLOOD, URINE SMALL (NEG); GLUCOSE,URINE 70 mg/dL (NEG); KETONE, URINE NEG (NEG); MUCUS URINE FEW /lpf (OCC); NITRITE,URINE NEG (NEG); SQUAMOUS EPITHELIAL CELL URINE <1 /hpf (0-5); URINE COLOR LIGHT-YELLOW (YELLW/STRAW); URINE LEUKOCYTE ESTERASE LARGE (NEG); WHITE BLOOD CELL CLUMPS MOD
[2017-10-25] MEDS ORDERED: NYST1000 SWISH-SWAL (12:29)
[2017-10-25] MEDS ORDERED: BACT800T5 PO (12:29)
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
[2017-10-25] MEDS ORDERED: NYSTATIN SUSP 500,000 U/5 ML CUP SWISH-SWAL ONE (13:00)
[2017-10-25] MEDS ORDERED: LEVOFLOXACIN 750 MG PREMIX INJ 150 ML IV ONE (13:00)
[2017-10-25] MEDS ORDERED: SODIUM CHLORID 0.9% 500 ML INJ 500 ML IV ONE (13:15)
== END 2017-10-25 15:11 | disposition home or self-care (01) ==
LOC: NEPC 10:08
DX: T83.011A Breakdown (mechanical) of indwelling urethral catheter, initial encounter (principal); T83.511A Infection and inflammatory reaction due to indwelling urethral catheter, initial encounter; E11.9 Type 2 diabetes mellitus without complications; K21.9 Gastro-esophageal reflux disease without esophagitis; Z79.4 Long term (current) use of insulin
CPT/HCPCS: 51700; 81001; 87086; 96374; 99284; J1956

== ENCOUNTER 2017-12-07 13:05 | Inpatient (IN) ==
[2018-03-24] MEDS ORDERED: Insulin NovoLOG Aspart Correctional Sugar Inj SQ ONE (22:33)
[2018-03-25] MEDS ORDERED: hydrALAZINE HCl Inj 20 MG/ML Vial IV.PUSH PRN (00:01)
[2018-03-25] MEDS ORDERED: Dextrose 50% in Water 50 ML Vial IV.PUSH PRN (00:01)
[2018-03-25] MEDS ORDERED: Naloxone Inj 0.4 MG/ML Vial IV.PUSH PRN (00:01)
[2018-03-25] MEDS ORDERED: Glycerin Adult 2 GM Supp RECTAL PRN (00:01)
[2018-03-25] MEDS ORDERED: Menthol 5.8 MG Lozenge BUCCAL PRN (00:01)
[2018-03-25] MEDS ORDERED: Bisacodyl 10 MG Supp RECTAL PRN (00:01)
[2018-03-25] MEDS ORDERED: traZODone 50 MG Tablet PO PRN (00:01)
[2018-03-25] MEDS ORDERED: LORazepam 1 MG Tablet ONE (00:34)
[2018-03-25] MEDS: LORazepam 1 MG Tablet PO PRN ×3 (01:00→23:21)
[2018-03-25] MEDS: guaiFENesin 600 MG ER Tablet PO SCH ×2 (08:46→21:53)
[2018-03-25] MEDS: Amiodarone 200 MG Tablet PO SCH ×2 (08:49→21:53)
[2018-03-25] MEDS: Furosemide 40 MG Tablet PO SCH ×2 (08:49→21:53)
[2018-03-25] MEDS: Allopurinol 100 MG Tablet PO SCH (08:50)
[2018-03-25] MEDS: Carvedilol 12.5 MG Tablet PO SCH ×2 (08:50→21:52)
[2018-03-25] MEDS: Senna/Docusate Sodium 8.6/50 MG Tablet PO SCH ×4 (08:50→21:52)
[2018-03-25] MEDS: Aspirin 325 MG Tablet PO SCH (08:50)
[2018-03-25] MEDS: Gabapentin 100 MG Capsule PO SCH ×3 (08:50→17:39)
[2018-03-25] MEDS: Psyllium Husk SF 3.4 GM in 5.8 GM Packet PO SCH ×2 (08:52→22:00)
[2018-03-25] MEDS: Famotidine 20 MG Tablet PO SCH ×2 (08:52→21:53)
[2018-03-25] MEDS: Insulin NovoLOG Aspart Correctional Sugar Inj SQ SCH ×4 (09:00→21:57)
--- NOTE | 2018-03-25 12:01 | P.PN ---
Subjective Interval history: Mr. Jackson was afebrile with stable vital signs and normal O2 saturation on 4L O2 via NC. Patient reports nasal congestion from O2 via NC; he requests way to increase nasal moisture. Patient has continued to work with therapy daily. Patient has had some constipation and requests additional enema this evening, stating this worked last night. No shortness of breath or chest pain. Normal urination Physical Exam Vital signs: Vital Signs 03/25/18 00:00 03/25/18 04:00 03/25/18 08:00 Temperature 97.8 F 97.7 F 98 F Pulse Rate 57 L 60 60 Respiratory Rate 20 20 20 Blood Pressure 109/69 101/67 118/65 Pulse Oximetry 98 98 98 03/25/18 09:00 Temperature Pulse Rate 63 Respiratory Rate 14 Blood Pressure Pulse Oximetry 98 Intake & Output 03/24/18 03/25/18 03/25/18 18:59 06:59 18:59 Intake Total 720 / 720 Balance 720 / 720 Weight 150.2 kg 150.8 kg Intake: Oral 720 / 720 Other: # Voids 4 # Bowel Movements 0 Narrative: GENERAL: Morbidly obese male, in no apparent distress. Skin: No visible CARDIOVASCULAR: Normal rate and regular rhythm without murmurs to auscultation RESPIRATORY: Decreased breath sounds due to obesity. On 4 L O2 via NC. Clear to auscultation anteriorly; no wheezing. GASTROINTESTINAL: Abdomen obese, soft, non-tender, non-distended. Normal active bowel sounds MUSCULOSKELETAL: Extremities without cyanosis, or edema. NEURO: Alert & Oriented. Grossly normal cranial nerves. Grossly normal peripheral function PSYCH: Appropriate mood and affect Results - Labs CBC & Chem 7: 02/28/18 13:01 02/28/18 13:01 Laboratory Results - last 24 hr 03/25/18 09:08 POC Glucose 101 Assessment and Plan - Assessment (1) Respiratory failure with hypoxia and hypercapnia Code(s): J96.91 - Respiratory failure, unspecified with hypoxia; J96.92 - Respiratory failure, unspecified with hypercapnia Status: Acute (2) Acute kidney injury superimposed on CKD Code(s): N17.9 - Acute kidney failure, unspecified; N18.9 - Chronic kidney disease, unspecified Status: Acute (3) Acute metabolic encephalopathy Code(s): G93.41 - Metabolic encephalopathy Status: Resolved (4) Altered mental status Code(s): R41.82 - Altered mental status, unspecified Status: Resolved (5) Obesity Code(s): E66.9 - Obesity, unspecified Status: Chronic - Plan 57-year-old male with: Acute on chronic hypercapnic respiratory insufficiency, on home oxygen. PMH COPD , Obstructive sleep apnea Status post treatment of MRSA pneumonia -Pulmonology following -BiPAP as needed, DuoNebs CHF, not in exacerbation, CAD s/p CABG. echo from September showed EF 55-60% On ASA, Amiodarone 200mg BID, Coreg 12.5mg BID, Clonidine 0.1mg Q8, Plavix 75mg daily Continue Lasix 40 mg twice daily Hypertension Continue carvedilol, clonidine Diabetes Supplemental sliding scale Levemir 10 units twice daily Scrotal pain Per Dr. Woodruff likely from anasarca Continue NSAIDs, warm compress Ultrasound noted. Hypotestosteronism Impression: On admission patient's total testosterone was 13. It was recommended that the patient have 2 additional 100 mg doses of testosterone weekly then recheck level -Will review further Left upper and lower extremity weakness Impression: Head CT on 02/25 shows no acute changes. CT of the neck shows C6-[address] of lumbar spine shows L3-4 herniation with L3 nerve root impingement Per NS, the disc herniation is nonsurgical. S/P course steroids Morbid obesity/debility: -PT to mobilize the patient more. Discussed with RN about obtaining a regular mattress to help him mobilize more. DVT prophylaxis: Lovenox Discharge Planning: Pending SNF placement. Case management following (1) Respiratory failure with hypoxia and hypercapnia Qualifiers: Chronicity: chronic Qualified Code(s): J96.11 - Chronic respiratory failure with hypoxia; J96.12 - Chronic respiratory failure with hypercapnia
[2018-03-25] MEDS: Nystatin 100,000 UNITS/GM Powder 15 GM Bottle TOPICAL SCH ×2 (13:51→16:49)
[2018-03-25] MEDS: Calamine/Pramoxine Lotion 180 ML Bottle TOPICAL SCH ×2 (13:52→21:59)
[2018-03-25] MEDS: Lactic Acid (Ammonium Lactate) 12% Lotion 225 GM Bottle TOPICAL SCH ×2 (13:52→21:59)
[2018-03-25] MEDS: Polyethylene Glycol 3350 17 GM Packet PO SCH (13:52)
[2018-03-25] MEDS: Insulin Detemir Inj 1,000 UNIT/10 ML Vial SQ SCH ×2 (16:40→21:57)
[2018-03-25] MEDS: Enoxaparin Inj 40 MG/0.4 ML Syringe SQ SCH (17:40)
[2018-03-26] MEDS: Nystatin 100,000 UNITS/GM Powder 15 GM Bottle TOPICAL SCH ×3 (00:42→18:40)
[2018-03-26] MEDS: LORazepam 1 MG Tablet PO PRN ×2 (05:06→18:43)
--- NOTE | 2018-03-26 10:30 | P.PN ---
Subjective Interval history: Mr. Jackson was afebrile with stable vital signs overnight. Patient reports difficulty sleeping and that he could not sleep until 5am. Patient reports continued nasal congestion from NC O2. Patient reports constipation and requests another enema. No respiratory concerns. Patient also reports continued weakness. Physical Exam Vital signs: Vital Signs 03/25/18 12:00 03/25/18 16:00 03/25/18 17:08 Temperature 98.1 F 97.3 F L Pulse Rate 58 L 61 64 Respiratory Rate 20 20 14 Blood Pressure 128/70 139/73 Pulse Oximetry 98 97 03/25/18 20:00 03/25/18 20:05 03/26/18 00:00 Temperature 98.2 F 98.2 F Pulse Rate 62 62 58 L Respiratory Rate 20 16 20 Blood Pressure 101/65 106/55 L Pulse Oximetry 99 99 03/26/18 04:00 Temperature 98.0 F Pulse Rate 56 L Respiratory Rate 20 Blood Pressure 102/62 Pulse Oximetry 96 Intake & Output 03/25/18 03/26/18 03/26/18 18:59 06:59 18:59 Intake Total 720 / 720 1540 / 1540 Balance 720 / 720 1540 / 1540 Weight 151.1 kg Intake: Oral 720 / 720 1540 / 1540 Other: # Voids 4 4 # Incontinent Voids 4 # Bowel Movements 0 Narrative: GENERAL: Morbidly obese male, in no apparent distress. Skin: No visible lesions. Abundant tattoos ENT: Nose- dried blood in L nare. No obvious erythema. CARDIOVASCULAR: Normal rate and regular rhythm without murmurs to auscultation RESPIRATORY: Decreased breath sounds due to obesity to auscultation; no focal abnormalities. Normal rate. On 4 L O2 via NC. GASTROINTESTINAL: Abdomen obese, soft, non-tender, non-distended. Normal active bowel sounds MUSCULOSKELETAL: Extremities without cyanosis, or edema. NEURO: Alert & Oriented. Grossly normal cranial nerves. Grossly normal peripheral function PSYCH: Appropriate mood and affect Results - Labs CBC & Chem 7: 02/28/18 13:01 02/28/18 13:01 Laboratory Results - last 24 hr 03/25/18 03/25/18 03/25/18 13:49 16:52 21:57 POC Glucose 126 H 141 H 228 H 03/26/18 08:40 POC Glucose 105 Assessment and Plan - Assessment (1) Respiratory failure with hypoxia and hypercapnia Code(s): J96.91 - Respiratory failure, unspecified with hypoxia; J96.92 - Respiratory failure, unspecified with hypercapnia Status: Acute (2) Acute kidney injury superimposed on CKD Code(s): N17.9 - Acute kidney failure, unspecified; N18.9 - Chronic kidney disease, unspecified Status: Acute (3) Acute metabolic encephalopathy Code(s): G93.41 - Metabolic encephalopathy Status: Resolved (4) Altered mental status Code(s): R41.82 - Altered mental status, unspecified Status: Resolved (5) Obesity Code(s): E66.9 - Obesity, unspecified Status: Chronic - Plan 57-year-old male with: Acute on chronic hypercapnic respiratory insufficiency, on home oxygen. PMH COPD , Obstructive sleep apnea Status post treatment of MRSA pneumonia -Pulmonology following -BiPAP as needed, DuoNebs CHF, not in exacerbation, CAD s/p CABG. echo from September showed EF 55-60% On ASA, Amiodarone 200mg BID, Coreg 12.5mg BID, Clonidine 0.1mg Q8, Plavix 75mg daily -Continue Lasix 40 mg twice daily Hypertension Impression: Stable BP -Continue carvedilol, clonidine Diabetes -Supplemental sliding scale -Levemir 10 units twice daily Scrotal pain Per Dr. Woodruff likely from anasarca. Ultrasound noted. Continue NSAIDs, warm compress Hypotestosteronism Impression: On admission patient's total testosterone was 13. It was recommended that the patient have 2 additional 100 mg doses of testosterone weekly then recheck level -Will repeat testosterone/free testosterone Left upper and lower extremity weakness Impression: Head CT on 02/25 shows no acute changes. CT of the neck shows C6-[address] of lumbar spine shows L3-4 herniation with L3 nerve root impingement Per NS, the disc herniation is nonsurgical. S/P course steroids Morbid obesity/debility: -PT daily to mobilize the patient more. Discussed about obtaining a regular mattress to help him mobilize more. DVT prophylaxis: Lovenox Discharge Planning: Pending SNF placement. Case management following (1) Respiratory failure with hypoxia and hypercapnia Qualifiers: Chronicity: chronic Qualified Code(s): J96.11 - Chronic respiratory failure with hypoxia; J96.12 - Chronic respiratory failure with hypercapnia
[2018-03-26] MEDS: Psyllium Husk SF 3.4 GM in 5.8 GM Packet PO SCH (11:38)
[2018-03-26] MEDS: Carvedilol 12.5 MG Tablet PO SCH (11:39)
[2018-03-26] MEDS: Famotidine 20 MG Tablet PO SCH (11:39)
[2018-03-26] MEDS: Aspirin 325 MG Tablet PO SCH (11:39)
[2018-03-26] MEDS: Gabapentin 100 MG Capsule PO SCH ×3 (11:39→18:04)
[2018-03-26] MEDS: Senna/Docusate Sodium 8.6/50 MG Tablet PO SCH ×2 (11:39→11:49)
[2018-03-26] MEDS: Allopurinol 100 MG Tablet PO SCH (11:39)
[2018-03-26] MEDS: Furosemide 40 MG Tablet PO SCH (11:40)
[2018-03-26] MEDS: Amiodarone 200 MG Tablet PO SCH (11:40)
[2018-03-26] MEDS: guaiFENesin 600 MG ER Tablet PO SCH (11:40)
[2018-03-26] MEDS: Polyethylene Glycol 3350 17 GM Packet PO SCH (11:41)
[2018-03-26] MEDS: Insulin Detemir Inj 1,000 UNIT/10 ML Vial SQ SCH (11:41)
[2018-03-26] MEDS: Calamine/Pramoxine Lotion 180 ML Bottle TOPICAL SCH (11:48)
[2018-03-26] MEDS: Lactic Acid (Ammonium Lactate) 12% Lotion 225 GM Bottle TOPICAL SCH (11:49)
[2018-03-26] MEDS: Insulin NovoLOG Aspart Correctional Sugar Inj SQ SCH ×2 (11:51→18:51)
[2018-03-26] MEDS: Sod Phosphate/Sod Biphosphate (Adult) Enema 133 ML Bottle RECTAL PRN (18:03)
[2018-03-26] MEDS: Enoxaparin Inj 40 MG/0.4 ML Syringe SQ SCH (18:04)
[2018-03-26] MEDS ORDERED: Benzonatate 100 MG Capsule PO PRN (22:19)
[2018-03-26] MEDS: Sodium Chloride 0.65% Nasal Drops/Spray 30 ML Bottle EACH NARE SCH (23:45)
[2018-03-27] MEDS: Furosemide 40 MG Tablet PO SCH ×2 (00:28→09:17)
[2018-03-27] MEDS: guaiFENesin 600 MG ER Tablet PO SCH ×2 (00:28→09:16)
[2018-03-27] MEDS: Famotidine 20 MG Tablet PO SCH ×2 (00:31→09:17)
[2018-03-27] MEDS: Carvedilol 12.5 MG Tablet PO SCH ×2 (00:32→09:17)
[2018-03-27] MEDS: LORazepam 1 MG Tablet PO PRN ×3 (00:33→15:58)
[2018-03-27] MEDS: traZODone 50 MG Tablet PO SCH (00:33)
[2018-03-27] MEDS: Amiodarone 200 MG Tablet PO SCH ×2 (00:33→09:17)
[2018-03-27] MEDS: Calamine/Pramoxine Lotion 180 ML Bottle TOPICAL SCH ×2 (00:34→10:22)
[2018-03-27] MEDS: Lactic Acid (Ammonium Lactate) 12% Lotion 225 GM Bottle TOPICAL SCH ×2 (00:34→10:22)
[2018-03-27] MEDS: Psyllium Husk SF 3.4 GM in 5.8 GM Packet PO SCH ×2 (00:35→09:18)
[2018-03-27] MEDS: Senna/Docusate Sodium 8.6/50 MG Tablet PO SCH ×4 (00:36→10:21)
[2018-03-27] MEDS: Insulin Detemir Inj 1,000 UNIT/10 ML Vial SQ SCH ×2 (00:37→12:09)
[2018-03-27] MEDS: Nystatin 100,000 UNITS/GM Powder 15 GM Bottle TOPICAL SCH ×3 (00:38→15:39)
[2018-03-27] MEDS: Aspirin 325 MG Tablet PO SCH (09:15)
[2018-03-27] MEDS: Gabapentin 100 MG Capsule PO SCH ×3 (09:16→17:16)
[2018-03-27] MEDS: Allopurinol 100 MG Tablet PO SCH (09:17)
[2018-03-27 09:52] LABS: Baso % (Auto) 0.8 % (0.0-2.0); Eos # (Auto) 0.2 th/mm3 (0.0-0.4); Eos % (Auto) 4.3 % (0.0-4.0); Hematocrit 29.3 % (39.0-51.0); Hemoglobin 9.1 gm/dL (13.0-17.0); Lymph # (Auto) 1.5 th/mm3 (1.0-4.8); Lymph % (Auto) 27.8 % (9.0-44.0); Mean Corpuscular Hemoglobin 26.7 pg (27.0-34.0); Mean Corpuscular Volume 86.3 fL (80.0-100.0); Mono # (Auto) 0.5 th/mm3 (0.0-0.9); Mono % (Auto) 9.1 % (0.0-8.0); Neut # (Auto) 3.2 th/mm3 (1.8-7.7); Platelet Count 202 th/mm3 (150-450); Red Cell Distribution Width 16.6 % (11.6-17.2); White Blood Count 5.5 th/mm3 (4.0-11.0)
[2018-03-27 10:06] LABS: Calcium 8.5 mg/dL (8.5-10.1); Carbon Dioxide 42.6 meq/L (21.0-32.0); Potassium 3.7 meq/L (3.5-5.1)
[2018-03-27] MEDS: Polyethylene Glycol 3350 17 GM Packet PO SCH (10:21)
[2018-03-27] MEDS: Sodium Chloride 0.65% Nasal Drops/Spray 30 ML Bottle EACH NARE SCH (10:22)
[2018-03-27] MEDS: Insulin NovoLOG Aspart Correctional Sugar Inj SQ SCH ×3 (12:11→17:24)
--- NOTE | 2018-03-27 15:17 | P.PN ---
Subjective Interval history: Mr. Jackson was afebrile with stable vital signs overnight. Patient accompanied by his brother today. He reports continued insomnia; he does not think Trazodone is effective. Patient states that he thinks he can improve his PT if he has a smaller bed. Patient does not report other complaints ; his nasal dryness is improved. Physical Exam Vital signs: Vital Signs 03/26/18 17:20 03/26/18 20:00 03/26/18 21:16 Temperature Pulse Rate 58 L 58 L 58 L Respiratory Rate 24 18 16 Blood Pressure 114/66 Pulse Oximetry 97 99 03/27/18 00:00 03/27/18 01:26 03/27/18 01:30 Temperature 98.1 F Pulse Rate 60 60 Respiratory Rate 16 14 Blood Pressure 101/59 L Pulse Oximetry 95 99 03/27/18 04:00 03/27/18 08:00 03/27/18 12:00 Temperature 98.1 F 97.8 F 97.9 F Pulse Rate 57 L 80 57 L Respiratory Rate 16 20 20 Blood Pressure 106/59 L 132/68 119/69 Pulse Oximetry 96 94 L 95 Intake & Output 03/26/18 03/27/18 03/27/18 18:59 06:59 18:59 Intake Total 960 / 960 480 / 480 Balance 960 / 960 480 / 480 Weight 150.3 kg Intake: Oral 480 / 480 480 / 480 Other 480 / 480 Other: # Voids 3 # Incontinent Voids 6 # Bowel Movements 1 0 Narrative: GENERAL: Morbidly obese male, in no apparent distress. Skin: No visible lesions. Abundant tattoos CARDIOVASCULAR: Normal rate and regular rhythm without murmurs to auscultation RESPIRATORY: Decreased breath sounds due to obesity to auscultation; no focal abnormalities. Normal rate. On 4 L O2 via NC. GASTROINTESTINAL: Abdomen obese, soft, non-tender, non-distended. Normal active bowel sounds MUSCULOSKELETAL: No calf tenderness NEURO: Alert & Oriented. Grossly normal cranial nerves. Grossly normal peripheral function PSYCH: Appropriate mood and affect Results - Labs CBC & Chem 7: 03/27/18 08:46 03/27/18 08:46 Laboratory Results - last 24 hr 03/26/18 03/26/18 03/27/18 18:29 22:33 08:46 WBC 5.5 RBC 3.40 L Hgb 9.1 L Hct 29.3 L MCV 86.3 MCH 26.7 L MCHC 31.0 L RDW 16.6 Plt Count 202 MPV 8.0 Neut % (Auto) 58.0 Lymph % (Auto) 27.8 [place] % (Auto) 9.1 H Eos % (Auto) 4.3 H Baso % (Auto) 0.8 Neut # (Auto) 3.2 Lymph # (Auto) 1.5 [place] # (Auto) 0.5 Eos # (Auto) 0.2 Baso # (Auto) 0.0 WBC Differential . Differential Comment Auto diff final Sodium Potassium Chloride Carbon Dioxide Anion Gap BUN Creatinine Estimated GFR POC Glucose 170 H 164 H Random Glucose Calcium 03/27/18 03/27/18 03/27/18 08:46 09:07 12:24 WBC RBC Hgb Hct MCV MCH MCHC RDW Plt Count MPV Neut % (Auto) Lymph % (Auto) [place] % (Auto) Eos % (Auto) Baso % (Auto) Neut # (Auto) Lymph # (Auto) [place] # (Auto) Eos # (Auto) Baso # (Auto) WBC Differential Differential Comment Sodium 139 Potassium 3.7 Chloride 91 L Carbon Dioxide 42.6 H Anion Gap 5 BUN 14 Creatinine 1.05 Estimated GFR 73 L POC Glucose 112 H 190 H Random Glucose 99 Calcium 8.5 Assessment and Plan - Assessment (1) Respiratory failure with hypoxia and hypercapnia Code(s): J96.91 - Respiratory failure, unspecified with hypoxia; J96.92 - Respiratory failure, unspecified with hypercapnia Status: Acute (2) Acute kidney injury superimposed on CKD Code(s): N17.9 - Acute kidney failure, unspecified; N18.9 - Chronic kidney disease, unspecified Status: Acute (3) Acute metabolic encephalopathy Code(s): G93.41 - Metabolic encephalopathy Status: Resolved (4) Altered mental status Code(s): R41.82 - Altered mental status, unspecified Status: Resolved (5) Obesity Code(s): E66.9 - Obesity, unspecified Status: Chronic - Plan 57-year-old male with: Acute on chronic hypercapnic respiratory insufficiency, on home oxygen. PMH COPD , Obstructive sleep apnea Status post treatment of MRSA pneumonia -Pulmonology following -CPAP as needed, DuoNebs CHF, not in exacerbation, CAD s/p CABG. echo from September showed EF 55-60% On ASA, Amiodarone 200mg BID, Coreg 12.5mg BID, Clonidine 0.1mg Q8, Plavix 75mg daily -Continue Lasix 40 mg twice daily Hypertension Impression: Stable BP -Continue carvedilol, clonidine Diabetes -Supplemental sliding scale -Levemir 10 units twice daily Scrotal pain Per Dr. Woodruff likely from anasarca. Ultrasound noted. Continue NSAIDs, warm compress Hypotestosteronism Impression: On admission patient's total testosterone was 13. It was recommended that the patient have 2 additional 100 mg doses of testosterone weekly then recheck level -Repeat testosterone/free testosterone pending Left upper and lower extremity weakness Impression: Head CT on 02/25 shows no acute changes. CT of the neck shows C6-[address] of lumbar spine shows L3-4 herniation with L3 nerve root impingement Per NS, the disc herniation is nonsurgical. S/P course steroids Morbid obesity/debility: -PT daily to mobilize the patient more. Discussed about obtaining a regular mattress to help him mobilize more. Insomnia -Continue Trazodone 100mg HS -Will add PRN Zolpidem DVT prophylaxis: Lovenox Discharge Planning: Pending SNF placement. Case management following (1) Respiratory failure with hypoxia and hypercapnia Qualifiers: Chronicity: chronic Qualified Code(s): J96.11 - Chronic respiratory failure with hypoxia; J96.12 - Chronic respiratory failure with hypercapnia
[2018-03-27] MEDS: Enoxaparin Inj 40 MG/0.4 ML Syringe SQ SCH (18:03)
--- NOTE | 2018-03-27 19:36 | P.PNPL ---
Subjective Interval history: 57 YO Morbidly obese male with TANA,COPD,CHF Breathing better Mild sob Uses CPAP Physical Exam Vital signs: Vital Signs 03/26/18 20:00 03/26/18 21:16 03/27/18 00:00 Temperature 98.1 F Pulse Rate 58 L 58 L 60 Respiratory Rate 18 16 16 Blood Pressure 114/66 101/59 L Pulse Oximetry 97 99 95 03/27/18 01:26 03/27/18 01:30 03/27/18 04:00 Temperature 98.1 F Pulse Rate 60 57 L Respiratory Rate 14 16 Blood Pressure 106/59 L Pulse Oximetry 99 96 03/27/18 08:00 03/27/18 12:00 03/27/18 16:00 Temperature 97.8 F 97.9 F 96.5 F L Pulse Rate 80 57 L 58 L Respiratory Rate 20 20 20 Blood Pressure 132/68 119/69 139/84 Pulse Oximetry 94 L 95 98 Intake & Output 03/27/18 03/27/18 03/28/18 06:59 18:59 06:59 Intake Total 480 / 480 520 / 520 Balance 480 / 480 520 / 520 Weight 150.3 kg Intake: Oral 480 / 480 520 / 520 Other: # Voids 4 # Incontinent Voids 6 # Bowel Movements 0 0 GENERAL: Morbidly obese male, NAD SKIN: Warm and dry. HEAD: Normocephalic. EYES: No scleral icterus. No injection or drainage. NECK: Supple, trachea midline. No JVD or lymphadenopathy. CARDIOVASCULAR: Regular rate and rhythm without murmurs, gallops, or rubs. RESPIRATORY: Breath sounds equal bilaterally. No accessory muscle use. GASTROINTESTINAL: Abdomen soft, non-tender, nondistended. MUSCULOSKELETAL: No cyanosis, + edema. BACK: Nontender without obvious deformity. No CVA tenderness. Assessment and Plan - Plan IMPRESSION: TANA COPD CHF Morbid obesity Gen Weakness/ deconditioning PLAN: CPAP at Night Supplement 02 Diurease Aerosol nebs
[2018-03-28] MEDS: Nystatin 100,000 UNITS/GM Powder 15 GM Bottle TOPICAL SCH ×2 (07:58→16:07)
[2018-03-28] MEDS: Aspirin 325 MG Tablet PO SCH (08:00)
[2018-03-28] MEDS: LORazepam 1 MG Tablet PO PRN ×3 (08:01→22:47)
[2018-03-28] MEDS: Famotidine 20 MG Tablet PO SCH ×2 (08:02→20:44)
[2018-03-28] MEDS: Senna/Docusate Sodium 8.6/50 MG Tablet PO SCH ×3 (08:03→22:49)
[2018-03-28] MEDS: Furosemide 40 MG Tablet PO SCH ×2 (08:04→20:45)
[2018-03-28] MEDS: Allopurinol 100 MG Tablet PO SCH (08:04)
[2018-03-28] MEDS: Amiodarone 200 MG Tablet PO SCH ×2 (08:04→20:46)
[2018-03-28] MEDS: Gabapentin 100 MG Capsule PO SCH ×3 (08:05→18:47)
[2018-03-28] MEDS: Carvedilol 12.5 MG Tablet PO SCH ×2 (08:05→20:43)
[2018-03-28] MEDS: Psyllium Husk SF 3.4 GM in 5.8 GM Packet PO SCH ×2 (08:06→20:34)
[2018-03-28] MEDS: guaiFENesin 600 MG ER Tablet PO SCH ×2 (08:06→20:44)
--- NOTE | 2018-03-28 11:40 | P.PN ---
Subjective Interval history: Mr. Jackson was afebrile with stable vital signs overnight; O2 saturations ~96 % on 4 L O2 via NC. Patient had continued difficulty sleeping overnight; he is able to sleep during the day but cannot at night. Patient also expresses frustration about his physical condition/need to use bedpan. Patient report normal respiration. No urinary or stool changes. Physical Exam Vital signs: Vital Signs 03/27/18 12:00 03/27/18 16:00 03/27/18 19:56 Temperature 97.9 F 96.5 F L Pulse Rate 57 L 58 L 61 Respiratory Rate 20 20 20 Blood Pressure 119/69 139/84 Pulse Oximetry 95 98 03/27/18 19:57 03/28/18 00:00 03/28/18 04:33 Temperature 98 F Pulse Rate 59 L 69 Respiratory Rate 18 18 Blood Pressure 111/69 Pulse Oximetry 100 98 03/28/18 04:35 03/28/18 09:30 Temperature Pulse Rate 62 Respiratory Rate 20 Blood Pressure Pulse Oximetry 97 96 Intake & Output 03/27/18 03/28/18 03/28/18 18:59 06:59 18:59 Intake Total 520 / 520 Balance 520 / 520 Weight 151.7 kg Intake: Oral 520 / 520 Other: # Voids 4 4 # Bowel Movements 0 Narrative: GENERAL: Morbidly obese male, in no apparent distress. Skin: stasis changes in lower extremities. Abundant tattoos CARDIOVASCULAR: Normal rate and regular rhythm without murmurs to auscultation RESPIRATORY: Decreased breath sounds to auscultation; no focal abnormalities. Normal rate. On 4 L O2 via NC. GASTROINTESTINAL: Abdomen obese, soft, non-tender, non-distended. Normal active bowel sounds MUSCULOSKELETAL: No calf tenderness NEURO: Alert & Oriented. Grossly normal cranial nerves. Grossly normal peripheral function PSYCH: Appropriate mood and affect Results - Labs CBC & Chem 7: 03/27/18 08:46 03/27/18 08:46 Laboratory Results - last 24 hr 03/27/18 03/27/18 03/27/18 12:24 16:52 23:31 POC Glucose 190 H 112 H 182 H Assessment and Plan - Assessment (1) Respiratory failure with hypoxia and hypercapnia Code(s): J96.91 - Respiratory failure, unspecified with hypoxia; J96.92 - Respiratory failure, unspecified with hypercapnia Status: Acute (2) Acute kidney injury superimposed on CKD Code(s): N17.9 - Acute kidney failure, unspecified; N18.9 - Chronic kidney disease, unspecified Status: Acute (3) Acute metabolic encephalopathy Code(s): G93.41 - Metabolic encephalopathy Status: Resolved (4) Altered mental status Code(s): R41.82 - Altered mental status, unspecified Status: Resolved (5) Obesity Code(s): E66.9 - Obesity, unspecified Status: Chronic - Plan 57-year-old male with: Acute on chronic hypercapnic respiratory insufficiency, on home oxygen. PMH COPD , Obstructive sleep apnea Status post treatment of MRSA pneumonia -Pulmonology following -CPAP as needed, DuoNebs CHF, not in exacerbation, CAD s/p CABG. echo from September showed EF 55-60% On ASA, Amiodarone 200mg BID, Coreg 12.5mg BID, Clonidine 0.1mg Q8, Plavix 75mg daily -Continue Lasix 40 mg twice daily Hypertension Impression: Stable BP -Continue carvedilol, clonidine Diabetes -Supplemental sliding scale -Levemir 10 units twice daily Scrotal pain Per Dr. Woodruff likely from anasarca. Ultrasound noted. Continue NSAIDs, warm compress Hypotestosteronism Impression: On admission patient's total testosterone was 13. It was recommended that the patient have 2 additional 100 mg doses of testosterone weekly then recheck level -Repeat testosterone/free testosterone pending Left upper and lower extremity weakness Impression: Head CT on 02/25 shows no acute changes. CT of the neck shows C6-[address] of lumbar spine shows L3-4 herniation with L3 nerve root impingement Per NS, the disc herniation is nonsurgical. S/P course steroids Morbid obesity/debility: -PT daily to mobilize the patient more. Discussed about obtaining a regular mattress to help him mobilize more. Insomnia -Continue Trazodone 100mg HS -Continue PRN Zolpidem -Will add HS Melatonin DVT prophylaxis: Lovenox Discharge Planning: Pending SNF placement. Case management following (1) Respiratory failure with hypoxia and hypercapnia Qualifiers: Chronicity: chronic Qualified Code(s): J96.11 - Chronic respiratory failure with hypoxia; J96.12 - Chronic respiratory failure with hypercapnia
[2018-03-28] MEDS: Lactic Acid (Ammonium Lactate) 12% Lotion 225 GM Bottle TOPICAL SCH ×2 (12:25→20:46)
[2018-03-28] MEDS: Calamine/Pramoxine Lotion 180 ML Bottle TOPICAL SCH ×2 (12:25→20:37)
[2018-03-28] MEDS: Sodium Chloride 0.65% Nasal Drops/Spray 30 ML Bottle EACH NARE SCH ×2 (12:25→20:37)
[2018-03-28] MEDS: Insulin NovoLOG Aspart Correctional Sugar Inj SQ SCH ×4 (13:14→20:47)
[2018-03-28] MEDS: Insulin Detemir Inj 1,000 UNIT/10 ML Vial SQ SCH ×2 (13:19→20:42)
[2018-03-28] MEDS: Polyethylene Glycol 3350 17 GM Packet PO SCH (16:08)
--- NOTE | 2018-03-28 16:34 | P.PNPL ---
Subjective Interval history: 57 YO Obese male with TANA Uses CPAp 1-2 hrs " can not get good seal due to beared" Physical Exam Vital signs: Vital Signs 03/27/18 19:56 03/27/18 19:57 03/28/18 00:00 Temperature 98 F Pulse Rate 61 59 L Respiratory Rate 20 18 Blood Pressure 111/69 Pulse Oximetry 100 98 03/28/18 04:33 03/28/18 04:35 03/28/18 08:00 Temperature 97.9 F Pulse Rate 69 55 L Respiratory Rate 18 18 Blood Pressure 107/65 Pulse Oximetry 97 96 03/28/18 09:30 Temperature Pulse Rate 62 Respiratory Rate 20 Blood Pressure Pulse Oximetry 96 Intake & Output 03/27/18 03/28/18 03/28/18 18:59 06:59 18:59 Intake Total 520 / 520 Balance 520 / 520 Weight 151.7 kg Intake: Oral 520 / 520 Other: # Voids 4 4 # Bowel Movements 0 GENERAL: Obese WM, NAD SKIN: Warm and dry. HEAD: Normocephalic. EYES: No scleral icterus. No injection or drainage. NECK: Supple, trachea midline. No JVD or lymphadenopathy. CARDIOVASCULAR: Regular rate and rhythm without murmurs, gallops, or rubs. RESPIRATORY: Breath sounds equal bilaterally. No accessory muscle use. GASTROINTESTINAL: Abdomen soft, non-tender, nondistended. MUSCULOSKELETAL: No cyanosis, or edema. BACK: Nontender without obvious deformity. No CVA tenderness. Assessment and Plan - Plan IMPRESSION: TANA COPD CHF Morbid obesity Gen Weakness/ deconditioning PLAN: CPAP at Night Supplement 02 Diurease Aerosol nebs Ativan prn anxiety
[2018-03-28] MEDS: traZODone 50 MG Tablet PO SCH (22:47)
[2018-03-29] MEDS: LORazepam 1 MG Tablet PO PRN ×3 (04:44→17:53)
[2018-03-29] MEDS: Nystatin 100,000 UNITS/GM Powder 15 GM Bottle TOPICAL SCH ×5 (04:45→21:01)
[2018-03-29] MEDS: Psyllium Husk SF 3.4 GM in 5.8 GM Packet PO SCH ×3 (09:59→20:31)
[2018-03-29] MEDS: Famotidine 20 MG Tablet PO SCH ×3 (10:00→20:32)
[2018-03-29] MEDS: Gabapentin 100 MG Capsule PO SCH ×3 (10:00→17:52)
[2018-03-29] MEDS: Amiodarone 200 MG Tablet PO SCH ×3 (10:01→20:27)
[2018-03-29] MEDS: Senna/Docusate Sodium 8.6/50 MG Tablet PO SCH ×6 (10:01→20:33)
[2018-03-29] MEDS: Allopurinol 100 MG Tablet PO SCH (10:01)
[2018-03-29] MEDS: guaiFENesin 600 MG ER Tablet PO SCH ×3 (10:02→20:26)
[2018-03-29] MEDS: Carvedilol 12.5 MG Tablet PO SCH ×3 (10:02→20:27)
[2018-03-29] MEDS: Aspirin 325 MG Tablet PO SCH (10:02)
[2018-03-29] MEDS: Furosemide 40 MG Tablet PO SCH ×3 (10:02→20:28)
[2018-03-29] MEDS: Insulin Detemir Inj 1,000 UNIT/10 ML Vial SQ SCH ×3 (10:03→20:42)
[2018-03-29] MEDS: Polyethylene Glycol 3350 17 GM Packet PO SCH (10:06)
[2018-03-29] MEDS: Lactic Acid (Ammonium Lactate) 12% Lotion 225 GM Bottle TOPICAL SCH ×3 (10:07→20:30)
[2018-03-29] MEDS: Sodium Chloride 0.65% Nasal Drops/Spray 30 ML Bottle EACH NARE SCH ×3 (10:07→20:29)
[2018-03-29] MEDS: Calamine/Pramoxine Lotion 180 ML Bottle TOPICAL SCH ×3 (10:07→20:29)
[2018-03-29] MEDS: Insulin NovoLOG Aspart Correctional Sugar Inj SQ SCH ×5 (10:08→21:00)
--- NOTE | 2018-03-29 13:56 | P.PN ---
Subjective Interval history: Mr. Jackson was afebrile with stable VS overnight. Patient reports that he has continued to have difficulty sleeping at night. Patient also reports continued constipation and states that he is dependent on enemas for bowel movements. Patient would like to try more bowel motility medications. No chest pain or shortness of breath. Patient's nasal inflammation is still improved. Physical Exam Vital signs: Vital Signs 03/28/18 16:00 03/28/18 16:45 03/28/18 16:46 Temperature 97.5 F L Pulse Rate 63 62 Respiratory Rate 18 20 Blood Pressure 125/74 Pulse Oximetry 92 L 96 03/28/18 20:00 03/28/18 20:01 03/29/18 00:00 Temperature 97.5 F L 98 F Pulse Rate 61 65 59 L Respiratory Rate 20 18 16 Blood Pressure 131/64 131/67 Pulse Oximetry 98 100 03/29/18 04:00 03/29/18 08:00 03/29/18 09:04 Temperature 97.7 F 97.8 F Pulse Rate 59 L 66 69 Respiratory Rate 16 16 17 Blood Pressure 120/59 L 135/79 Pulse Oximetry 98 97 96 03/29/18 12:00 Temperature 97.9 F Pulse Rate 64 Respiratory Rate 16 Blood Pressure 105/69 Pulse Oximetry 98 Intake & Output 03/28/18 03/29/18 03/29/18 18:59 06:59 18:59 Intake Total 840 / 840 480 / 480 Balance 840 / 840 480 / 480 Weight 151.5 kg Intake: Oral 840 / 840 480 / 480 Other: # Voids 3 6 # Bowel Movements 0 0 Narrative: GENERAL: Morbidly obese male, NAD Skin: stasis changes in lower extremities. Abundant tattoos CARDIOVASCULAR: Normal rate and regular rhythm without murmurs; normal perfusion RESPIRATORY: Decreased breath sounds to auscultation suspected secondary to body habitus. Normal rate. On 4 L O2 via NC. GASTROINTESTINAL: Abdomen obese, soft, non-tender, non-distended. Normal active bowel sounds MUSCULOSKELETAL: No calf tenderness NEURO: Alert & Oriented. Grossly normal cranial nerves. Grossly normal peripheral function PSYCH: Appropriate mood and affect Results - Labs CBC & Chem 7: 03/27/18 08:46 03/27/18 08:46 Laboratory Results - last 24 hr 03/28/18 03/28/18 03/29/18 16:06 19:48 09:59 POC Glucose 205 H 137 H 113 H 03/29/18 13:22 POC Glucose 155 H Assessment and Plan - Assessment (1) Respiratory failure with hypoxia and hypercapnia Code(s): J96.91 - Respiratory failure, unspecified with hypoxia; J96.92 - Respiratory failure, unspecified with hypercapnia Status: Acute (2) Acute kidney injury superimposed on CKD Code(s): N17.9 - Acute kidney failure, unspecified; N18.9 - Chronic kidney disease, unspecified Status: Acute (3) Acute metabolic encephalopathy Code(s): G93.41 - Metabolic encephalopathy Status: Resolved (4) Altered mental status Code(s): R41.82 - Altered mental status, unspecified Status: Resolved (5) Obesity Code(s): E66.9 - Obesity, unspecified Status: Chronic - Plan 57-year-old male with: Acute on chronic hypercapnic respiratory insufficiency, on home oxygen. PMH COPD , Obstructive sleep apnea Status post treatment of MRSA pneumonia -Pulmonology following -CPAP as needed, DuoNebs CHF, not in exacerbation, CAD s/p CABG. echo from September showed EF 55-60% On ASA, Amiodarone 200mg BID, Coreg 12.5mg BID, Clonidine 0.1mg Q8, Plavix 75mg daily -Continue Lasix 40 mg twice daily Hypertension Impression: Stable BP -Continue carvedilol, clonidine Diabetes -Supplemental sliding scale -Levemir 10 units twice daily Scrotal pain Per Dr. Woodruff likely from anasarca. Ultrasound noted. Continue NSAIDs, warm compress Hypotestosteronism Impression: On admission patient's total testosterone was 13. It was recommended that the patient have 2 additional 100 mg doses of testosterone weekly then recheck level -Repeat testosterone/free testosterone pending Left upper and lower extremity weakness Impression: Head CT on 02/25 shows no acute changes. CT of the neck shows C6-[address] of lumbar spine shows L3-4 herniation with L3 nerve root impingement Per NS, the disc herniation is nonsurgical. S/P course steroids Morbid obesity/debility: -PT daily to mobilize the patient more. Discussed about obtaining a regular mattress to help him mobilize more. Insomnia -Continue Trazodone 100mg HS -Continue PRN Zolpidem -Will add HS Melatonin Constipation -Will start daily Miralax -Will give enema PRN since has been multiple days/patient requests DVT prophylaxis: Lovenox Discharge Planning: Pending SNF placement. Case management following (1) Respiratory failure with hypoxia and hypercapnia Qualifiers: Chronicity: chronic Qualified Code(s): J96.11 - Chronic respiratory failure with hypoxia; J96.12 - Chronic respiratory failure with hypercapnia
[2018-03-29] MEDS: Enoxaparin Inj 40 MG/0.4 ML Syringe SQ SCH ×2 (17:53→18:26)
[2018-03-29] MEDS: traZODone 50 MG Tablet PO SCH ×2 (18:26→20:26)
[2018-03-29] MEDS: Sod Phosphate/Sod Biphosphate (Adult) Enema 133 ML Bottle RECTAL PRN (18:37)
--- NOTE | 2018-03-29 19:00 | P.PNPL ---
Subjective Interval history: 57 YO Obese male with TANA Uses CPAp 1-2 hrs No new complaint Physical Exam Vital signs: Vital Signs 03/28/18 20:00 03/28/18 20:01 03/29/18 00:00 Temperature 97.5 F L 98 F Pulse Rate 61 65 59 L Respiratory Rate 20 18 16 Blood Pressure 131/64 131/67 Pulse Oximetry 98 100 03/29/18 04:00 03/29/18 08:00 03/29/18 09:04 Temperature 97.7 F 97.8 F Pulse Rate 59 L 66 69 Respiratory Rate 16 16 17 Blood Pressure 120/59 L 135/79 Pulse Oximetry 98 97 96 03/29/18 12:00 03/29/18 16:00 Temperature 97.9 F 98.1 F Pulse Rate 64 63 Respiratory Rate 16 18 Blood Pressure 105/69 112/70 Pulse Oximetry 98 97 Intake & Output 03/28/18 03/29/18 03/29/18 18:59 06:59 18:59 Intake Total 840 / 840 480 / 480 Balance 840 / 840 480 / 480 Weight 151.5 kg Intake: Oral 840 / 840 480 / 480 Other: # Voids 3 6 # Bowel Movements 0 0 Narrative: GENERAL: Morbidly obese male, in no apparent distress. Skin: stasis changes in lower extremities. Abundant tattoos CARDIOVASCULAR: Normal rate and regular rhythm without murmurs to auscultation RESPIRATORY: Decreased breath sounds to auscultation; no focal abnormalities. Normal rate. On 4 L O2 via NC. GASTROINTESTINAL: Abdomen obese, soft, non-tender, non-distended. Normal active bowel sounds MUSCULOSKELETAL: No calf tenderness NEURO: Alert & Oriented. Grossly normal cranial nerves. Grossly normal peripheral function PSYCH: Appropriate mood and affect Assessment and Plan - Plan IMPRESSION: TANA COPD CHF Morbid obesity Gen Weakness/ deconditioning PLAN: CPAP at Night Supplement 02 Diurease Aerosol nebs Ativan prn anxiety
[2018-03-29] MEDS ORDERED: Sod Phosphate/Sod Biphosphate (Adult) Enema 133 ML Bottle RECTAL PRN (19:48)
[2018-03-30] MEDS: Melatonin 5 MG Tablet PO PRN ×2 (01:13→23:54)
[2018-03-30] MEDS: LORazepam 1 MG Tablet PO PRN ×4 (01:13→23:56)
[2018-03-30] MEDS: Nystatin 100,000 UNITS/GM Powder 15 GM Bottle TOPICAL SCH ×2 (06:00→13:03)
[2018-03-30] MEDS: Insulin NovoLOG Aspart Correctional Sugar Inj SQ SCH ×3 (09:27→18:13)
[2018-03-30] MEDS: guaiFENesin 600 MG ER Tablet PO SCH ×2 (09:28→23:54)
[2018-03-30] MEDS: Famotidine 20 MG Tablet PO SCH ×2 (09:28→23:54)
[2018-03-30] MEDS: Senna/Docusate Sodium 8.6/50 MG Tablet PO SCH ×4 (09:28→23:58)
[2018-03-30] MEDS: Psyllium Husk SF 3.4 GM in 5.8 GM Packet PO SCH ×2 (09:28→23:57)
[2018-03-30] MEDS: Allopurinol 100 MG Tablet PO SCH (09:28)
[2018-03-30] MEDS: Gabapentin 100 MG Capsule PO SCH ×3 (09:29→18:09)
[2018-03-30] MEDS: Furosemide 40 MG Tablet PO SCH ×2 (09:29→23:55)
[2018-03-30] MEDS: Carvedilol 12.5 MG Tablet PO SCH ×2 (09:29→23:54)
[2018-03-30] MEDS: Amiodarone 200 MG Tablet PO SCH ×2 (09:29→23:53)
[2018-03-30] MEDS: Aspirin 325 MG Tablet PO SCH (09:29)
[2018-03-30] MEDS: Sodium Chloride 0.65% Nasal Drops/Spray 30 ML Bottle EACH NARE SCH ×2 (09:32→23:51)
[2018-03-30] MEDS: Lactic Acid (Ammonium Lactate) 12% Lotion 225 GM Bottle TOPICAL SCH ×2 (09:32→23:56)
[2018-03-30] MEDS: Insulin Detemir Inj 1,000 UNIT/10 ML Vial SQ SCH (09:32)
[2018-03-30] MEDS: Calamine/Pramoxine Lotion 180 ML Bottle TOPICAL SCH ×2 (09:32→23:51)
[2018-03-30] MEDS: Polyethylene Glycol 3350 17 GM Packet PO SCH (09:32)
--- NOTE | 2018-03-30 16:12 | P.PN ---
Subjective Interval history: Mr. Jackson was afebrile with stable vital signs overnight. Patient reports that he did well with his enema. Patient reports that he did better than usual with PT today; he reports standing better than previously with with PT today. No reported respiratory concerns or chest pain. Patient requests a change in his diet due to his long hospital stay here. Physical Exam Vital signs: Vital Signs 03/29/18 19:44 03/29/18 20:00 03/30/18 00:00 Temperature 97.6 F 97.8 F Pulse Rate 63 63 89 Respiratory Rate 18 Blood Pressure 104/60 143/63 H Pulse Oximetry 96 99 93 L 03/30/18 01:13 03/30/18 04:00 03/30/18 08:00 Temperature 97.8 F 97.5 F L 97.7 F Pulse Rate 89 60 64 Respiratory Rate 18 Blood Pressure 143/63 H 149/51 H 130/63 Pulse Oximetry 93 L 97 97 03/30/18 08:27 Temperature Pulse Rate 65 Respiratory Rate 14 Blood Pressure Pulse Oximetry 97 Intake & Output 03/29/18 03/30/18 03/30/18 18:59 06:59 18:59 Intake Total 480 / 480 Output Total 0 / 0 Balance 480 / 480 Weight 151.6 kg Intake: Oral 480 / 480 Output: Stool 0 / 0 Other: # Voids 7 Date of Last Bowel Movement 03/29/18 03/29/18 Narrative: GENERAL: Morbidly obese male, NAD Skin: stasis changes in lower extremities. Abundant tattoos CARDIOVASCULAR: Normal rate and regular rhythm without murmurs; normal perfusion RESPIRATORY: Decreased breath sounds to auscultation suspected secondary to body habitus. Normal rate. On 4 L O2 via NC. GASTROINTESTINAL: Abdomen obese, soft, non-tender, non-distended. Normal active bowel sounds MUSCULOSKELETAL: No calf tenderness or asymmetry NEURO: Alert & Oriented. Grossly normal cranial nerves. Grossly normal peripheral function PSYCH: Appropriate mood and affect Results - Labs CBC & Chem 7: 03/27/18 08:46 03/27/18 08:46 Laboratory Results - last 24 hr 03/27/18 03/29/18 03/29/18 08:46 17:51 20:25 POC Glucose 139 H 175 H Total Testosterone 451 Free Testosterone 14.4 07/06/18 07/06/18 09:24 13:02 POC Glucose 110 146 H Total Testosterone Free Testosterone Assessment and Plan - Assessment (1) Respiratory failure with hypoxia and hypercapnia Code(s): J96.91 - Respiratory failure, unspecified with hypoxia; J96.92 - Respiratory failure, unspecified with hypercapnia Status: Acute (2) Acute kidney injury superimposed on CKD Code(s): N17.9 - Acute kidney failure, unspecified; N18.9 - Chronic kidney disease, unspecified Status: Acute (3) Acute metabolic encephalopathy Code(s): G93.41 - Metabolic encephalopathy Status: Resolved (4) Altered mental status Code(s): R41.82 - Altered mental status, unspecified Status: Resolved (5) Obesity Code(s): E66.9 - Obesity, unspecified Status: Chronic - Plan 57-year-old male with: Acute on chronic hypercapnic respiratory insufficiency, on home oxygen. PMH COPD , Obstructive sleep apnea Status post treatment of MRSA pneumonia -Pulmonology following -CPAP as needed, DuoNebs CHF, not in exacerbation, CAD s/p CABG. echo from September showed EF 55-60% On ASA, Amiodarone 200mg BID, Coreg 12.5mg BID, Clonidine 0.1mg Q8, Plavix 75mg daily -Continue Lasix 40 mg twice daily Hypertension Impression: Stable BP -Continue carvedilol, clonidine Diabetes -Supplemental sliding scale -Due to stable blood glucose levels during hospitalization and desire for change , will change from diabetic to cardiac diet -Levemir 10 units twice daily Scrotal pain Per Dr. Woodruff likely from anasarca. Ultrasound noted. Continue NSAIDs, warm compress Hypotestosteronism Impression: 02/23 total testosterone was 13, free 0.14; s/p 100mg injection. Repeat total testosterone 451/free testosterone 14.4 03/27 Left upper and lower extremity weakness Impression: Head CT on 02/25 shows no acute changes. CT of the neck shows C6-[address] of lumbar spine shows L3-4 herniation with L3 nerve root impingement Per NS, the disc herniation is nonsurgical. S/P course steroids Morbid obesity/debility: -PT daily to mobilize the patient more. Discussed about obtaining a regular mattress to help him mobilize more. -Slowly improving Insomnia -Continue Trazodone 100mg HS -Continue PRN Zolpidem -Continue HS Melatonin DVT prophylaxis: Lovenox Discharge Planning: Pending SNF placement. Case management following (1) Respiratory failure with hypoxia and hypercapnia Qualifiers: Chronicity: chronic Qualified Code(s): J96.11 - Chronic respiratory failure with hypoxia; J96.12 - Chronic respiratory failure with hypercapnia
[2018-03-30] MEDS: Enoxaparin Inj 40 MG/0.4 ML Syringe SQ SCH (18:09)
--- NOTE | 2018-03-30 18:26 | P.PNPL ---
Subjective Interval history: 57 YO Obese male with TANA Uses CPAp 1-2 hrs On Nasal cannula No new complaint Physical Exam Vital signs: Vital Signs 03/29/18 19:44 03/29/18 20:00 03/30/18 00:00 Temperature 97.6 F 97.8 F Pulse Rate 63 63 89 Respiratory Rate 18 Blood Pressure 104/60 143/63 H Pulse Oximetry 96 99 93 L 03/30/18 01:13 03/30/18 04:00 03/30/18 08:00 Temperature 97.8 F 97.5 F L 97.7 F Pulse Rate 89 60 64 Respiratory Rate 18 Blood Pressure 143/63 H 149/51 H 130/63 Pulse Oximetry 93 L 97 97 03/30/18 08:27 Temperature Pulse Rate 65 Respiratory Rate 14 Blood Pressure Pulse Oximetry 97 Intake & Output 03/29/18 03/30/18 03/30/18 18:59 06:59 18:59 Intake Total 480 / 480 Output Total 0 / 0 Balance 480 / 480 Weight 151.6 kg Intake: Oral 480 / 480 Output: Stool 0 / 0 Other: # Voids 7 Date of Last Bowel Movement 03/29/18 03/29/18 Narrative: GENERAL: Morbidly obese male, NAD Skin: stasis changes in lower extremities. Abundant tattoos CARDIOVASCULAR: Normal rate and regular rhythm without murmurs; normal perfusion RESPIRATORY: Decreased breath sounds to auscultation suspected secondary to body habitus. Normal rate. On 4 L O2 via NC. GASTROINTESTINAL: Abdomen obese, soft, non-tender, non-distended. Normal active bowel sounds MUSCULOSKELETAL: No calf tenderness NEURO: Alert & Oriented. Grossly normal cranial nerves. Grossly normal peripheral function PSYCH: Appropriate mood and affect Assessment and Plan - Plan IMPRESSION: TANA COPD CHF Morbid obesity Gen Weakness/ deconditioning PLAN: CPAP at Night Supplement 02 Diurease Aerosol nebs Ativan prn anxiety Stable pulm status Available prn over weekend.
[2018-03-30] MEDS: Zolpidem Tartrate 5 MG Tablet PO PRN (23:53)
[2018-03-30] MEDS: traZODone 50 MG Tablet PO SCH (23:55)
[2018-03-31] MEDS: Insulin Detemir Inj 1,000 UNIT/10 ML Vial SQ SCH ×3 (00:17→21:23)
[2018-03-31] MEDS: Insulin NovoLOG Aspart Correctional Sugar Inj SQ SCH ×5 (00:17→21:23)
[2018-03-31] MEDS: Nystatin 100,000 UNITS/GM Powder 15 GM Bottle TOPICAL SCH ×4 (06:10→21:24)
[2018-03-31] MEDS: Furosemide 40 MG Tablet PO SCH ×2 (08:29→21:24)
[2018-03-31] MEDS: guaiFENesin 600 MG ER Tablet PO SCH ×2 (08:29→21:22)
[2018-03-31] MEDS: Carvedilol 12.5 MG Tablet PO SCH ×2 (08:29→21:26)
[2018-03-31] MEDS: Famotidine 20 MG Tablet PO SCH ×2 (08:29→21:22)
[2018-03-31] MEDS: Aspirin 325 MG Tablet PO SCH (08:29)
[2018-03-31] MEDS: Sodium Chloride 0.65% Nasal Drops/Spray 30 ML Bottle EACH NARE SCH ×2 (08:30→21:25)
[2018-03-31] MEDS: Allopurinol 100 MG Tablet PO SCH (08:30)
[2018-03-31] MEDS: Amiodarone 200 MG Tablet PO SCH ×2 (08:30→21:22)
[2018-03-31] MEDS: Psyllium Husk SF 3.4 GM in 5.8 GM Packet PO SCH ×2 (08:31→21:25)
[2018-03-31] MEDS: Polyethylene Glycol 3350 17 GM Packet PO SCH (08:31)
[2018-03-31] MEDS: Calamine/Pramoxine Lotion 180 ML Bottle TOPICAL SCH ×2 (08:31→21:25)
[2018-03-31] MEDS: Gabapentin 100 MG Capsule PO SCH ×3 (08:32→18:13)
[2018-03-31] MEDS: LORazepam 1 MG Tablet PO PRN ×2 (14:59→21:22)
--- NOTE | 2018-03-31 16:04 | P.PN ---
Subjective Interval history: patient awake no complains except for his diet- requesting for regular food- reviewed with him readings Physical Exam Vital signs: Vital Signs 03/30/18 18:56 03/30/18 18:57 03/30/18 20:00 Temperature 98.1 F Pulse Rate 67 66 Respiratory Rate 18 18 Blood Pressure 115/55 L Pulse Oximetry 97 98 03/31/18 00:00 03/31/18 04:00 03/31/18 08:00 Temperature 97.1 F L 97.8 F 97.7 F Pulse Rate 73 59 L 65 Respiratory Rate 18 18 20 Blood Pressure 106/53 L 122/58 L 133/63 Pulse Oximetry 93 L 99 97 03/31/18 08:46 03/31/18 08:50 03/31/18 12:00 Temperature 98.2 F Pulse Rate 62 65 Respiratory Rate 18 20 Blood Pressure 132/73 Pulse Oximetry 100 98 03/31/18 15:32 03/31/18 15:33 Temperature Pulse Rate 65 Respiratory Rate 20 Blood Pressure Pulse Oximetry 98 Intake & Output 03/30/18 03/31/18 03/31/18 18:59 06:59 18:59 Intake Total 480 / 480 360 / 360 Balance 480 / 480 360 / 360 Weight 153.2 kg Intake: Oral 480 / 480 360 / 360 Other: # Voids 2 6 Date of Last Bowel Movement 03/29/18 03/29/18 # Bowel Movements 0 0 - Constitutional no acute distress - Routine HEENT Exam Head: Present: normocephalic Eye: Present: PERRL ENT: Present: mucous membranes moist - Routine Neck Exam Present: supple - Routine Respiratory Exam Present: CTA bilaterally - Routine Cardiovascular Exam Present: RRR - Routine Abdominal Exam Present: soft, normoactive bowel sounds - Routine Extremities Exam Comments: no edema, good peripheral pulses - Routine Skin Exam Present: intact (sad with his diet) - Routine Neurological Exam Present: alert, oriented X3 Results - Labs CBC & Chem 7: 03/27/18 08:46 03/27/18 08:46 Laboratory Results - last 24 hr 03/30/18 03/30/18 03/31/18 18:09 23:50 08:11 POC Glucose 166 H 166 H 114 H 03/31/18 12:17 POC Glucose 144 H Assessment and Plan - Assessment (1) Respiratory failure with hypoxia and hypercapnia Code(s): J96.91 - Respiratory failure, unspecified with hypoxia; J96.92 - Respiratory failure, unspecified with hypercapnia Status: Acute (2) Acute kidney injury superimposed on CKD Code(s): N17.9 - Acute kidney failure, unspecified; N18.9 - Chronic kidney disease, unspecified Status: Acute (3) Acute metabolic encephalopathy Code(s): G93.41 - Metabolic encephalopathy Status: Resolved (4) Altered mental status Code(s): R41.82 - Altered mental status, unspecified Status: Resolved (5) Obesity Code(s): E66.9 - Obesity, unspecified Status: Chronic - Plan 57-year-old male with: Acute on chronic hypercapnic respiratory insufficiency, on home oxygen. PMH COPD , Obstructive sleep apnea Status post treatment of MRSA pneumonia -Pulmonology following -CPAP as needed, DuoNebs CHF, not in exacerbation, CAD s/p CABG. echo from September showed EF 55-60% On ASA, Amiodarone 200mg BID, Coreg 12.5mg BID, Clonidine 0.1mg Q8, Plavix 75mg daily -Continue Lasix 40 mg twice daily Hypertension Impression: Stable BP -Continue carvedilol, clonidine Diabetes -Supplemental sliding scale -Due to stable blood glucose levels during hospitalization and desire for change , will change from diabetic to cardiac diet -Levemir 10 units twice daily- good readings - change to regular cardiac diet Scrotal pain Per Dr. Woodruff likely from anasarca. Ultrasound noted. Continue NSAIDs, warm compress Hypotestosteronism Impression: 02/23 total testosterone was 13, free 0.14; s/p 100mg injection. Repeat total testosterone 451/free testosterone 14.4 03/27 Left upper and lower extremity weakness Impression: Head CT on 02/25 shows no acute changes. CT of the neck shows C6-[address] of lumbar spine shows L3-4 herniation with L3 nerve root impingement Per NS, the disc herniation is nonsurgical. S/P course steroids Morbid obesity/debility: -PT daily to mobilize the patient more. Discussed about obtaining a regular mattress to help him mobilize more. -Slowly improving Insomnia -Continue Trazodone 100mg HS -Continue PRN Zolpidem -Continue HS Melatonin DVT prophylaxis: Lovenox Discharge Planning: Pending SNF placement. Case management following (1) Respiratory failure with hypoxia and hypercapnia Qualifiers: Chronicity: chronic Qualified Code(s): J96.11 - Chronic respiratory failure with hypoxia; J96.12 - Chronic respiratory failure with hypercapnia (1) Respiratory failure with hypoxia and hypercapnia Qualifiers: Chronicity: chronic Qualified Code(s): J96.11 - Chronic respiratory failure with hypoxia; J96.12 - Chronic respiratory failure with hypercapnia
[2018-03-31] MEDS: Senna/Docusate Sodium 8.6/50 MG Tablet PO SCH ×4 (16:46→21:24)
[2018-03-31] MEDS: Enoxaparin Inj 40 MG/0.4 ML Syringe SQ SCH (18:13)
[2018-03-31] MEDS: Lactic Acid (Ammonium Lactate) 12% Lotion 225 GM Bottle TOPICAL SCH ×2 (18:48→21:24)
[2018-03-31] MEDS: traZODone 50 MG Tablet PO SCH (21:22)
[2018-04-01] MEDS: LORazepam 1 MG Tablet PO PRN ×3 (03:42→23:37)
[2018-04-01] MEDS: Nystatin 100,000 UNITS/GM Powder 15 GM Bottle TOPICAL SCH ×3 (06:07→22:00)
[2018-04-01] MEDS: guaiFENesin 600 MG ER Tablet PO SCH ×2 (08:59→21:58)
[2018-04-01] MEDS: Amiodarone 200 MG Tablet PO SCH ×2 (08:59→21:57)
[2018-04-01] MEDS: Aspirin 325 MG Tablet PO SCH (09:02)
[2018-04-01] MEDS: Senna/Docusate Sodium 8.6/50 MG Tablet PO SCH ×4 (09:02→22:00)
[2018-04-01] MEDS: Carvedilol 12.5 MG Tablet PO SCH ×2 (09:02→21:57)
[2018-04-01] MEDS: Gabapentin 100 MG Capsule PO SCH ×3 (09:03→18:40)
[2018-04-01] MEDS: Allopurinol 100 MG Tablet PO SCH (09:04)
[2018-04-01] MEDS: Famotidine 20 MG Tablet PO SCH ×2 (09:04→21:59)
[2018-04-01] MEDS: Furosemide 40 MG Tablet PO SCH ×2 (09:04→21:57)
[2018-04-01] MEDS: Insulin Detemir Inj 1,000 UNIT/10 ML Vial SQ SCH ×2 (09:09→21:58)
[2018-04-01] MEDS: Insulin NovoLOG Aspart Correctional Sugar Inj SQ SCH ×4 (09:09→21:58)
[2018-04-01] MEDS: Sodium Chloride 0.65% Nasal Drops/Spray 30 ML Bottle EACH NARE SCH ×2 (11:24→21:57)
[2018-04-01] MEDS: Psyllium Husk SF 3.4 GM in 5.8 GM Packet PO SCH ×2 (11:24→21:58)
[2018-04-01] MEDS: Polyethylene Glycol 3350 17 GM Packet PO SCH (11:24)
[2018-04-01] MEDS: Lactic Acid (Ammonium Lactate) 12% Lotion 225 GM Bottle TOPICAL SCH ×2 (11:24→21:57)
[2018-04-01] MEDS: Calamine/Pramoxine Lotion 180 ML Bottle TOPICAL SCH ×2 (11:24→21:57)
--- NOTE | 2018-04-01 16:52 | P.PN ---
Subjective Interval history: seen with family- sister and brother at bedside not happy about his diet- states he cannot get diet pepsi and peanut butter also complains of right foot pain Physical Exam Vital signs: Vital Signs 03/31/18 19:22 03/31/18 20:00 04/01/18 00:00 Temperature 98.1 F 98.0 F Pulse Rate 71 62 66 Respiratory Rate 18 18 Blood Pressure 103/54 L 121/60 Pulse Oximetry 97 96 04/01/18 02:40 04/01/18 04:00 04/01/18 08:00 Temperature 98.0 F 97.8 F Pulse Rate 64 65 74 Respiratory Rate 18 18 22 Blood Pressure 111/65 129/58 L Pulse Oximetry 99 96 04/01/18 08:11 04/01/18 11:23 04/01/18 12:00 Temperature 97.6 F Pulse Rate 71 68 Respiratory Rate 18 10 L 21 Blood Pressure 132/60 Pulse Oximetry 98 95 Intake & Output 03/31/18 04/01/18 04/01/18 18:59 06:59 18:59 Intake Total 960 / 960 597 / 597 Balance 960 / 960 597 / 597 Weight 152.2 kg Intake: Oral 960 / 960 597 / 597 Other: # Incontinent Voids 3 2 Date of Last Bowel Movement 03/29/18 03/29/18 Narrative: GENERAL: Morbidly obese male, NAD Skin: stasis changes in lower extremities. Abundant tattoos CARDIOVASCULAR: Normal rate and regular rhythm without murmurs; normal perfusion RESPIRATORY: Decreased breath sounds to auscultation suspected secondary to body habitus. Normal rate. On 4 L O2 via NC. GASTROINTESTINAL: Abdomen obese, soft, non-tender, non-distended. Normal active bowel sounds MUSCULOSKELETAL: right foot with mild akle swelling, positive pain and limited forward plantar extension, mild pain with dorsiflexion but able to do it good pulses NEURO: Alert & Oriented. Grossly normal cranial nerves. Grossly normal peripheral function PSYCH: Appropriate mood and affect Results - Labs CBC & Chem 7: 03/27/18 08:46 03/27/18 08:46 Laboratory Results - last 24 hr 03/31/18 04/01/18 04/01/18 19:50 07:38 11:41 POC Glucose 194 H 108 152 H Assessment and Plan - Assessment (1) Respiratory failure with hypoxia and hypercapnia Code(s): J96.91 - Respiratory failure, unspecified with hypoxia; J96.92 - Respiratory failure, unspecified with hypercapnia Status: Acute (2) Acute kidney injury superimposed on CKD Code(s): N17.9 - Acute kidney failure, unspecified; N18.9 - Chronic kidney disease, unspecified Status: Acute (3) Acute metabolic encephalopathy Code(s): G93.41 - Metabolic encephalopathy Status: Resolved (4) Altered mental status Code(s): R41.82 - Altered mental status, unspecified Status: Resolved (5) Obesity Code(s): E66.9 - Obesity, unspecified Status: Chronic - Plan 57-year-old male with: Acute on chronic hypercapnic respiratory insufficiency, on home oxygen. PMH COPD , Obstructive sleep apnea Status post treatment of MRSA pneumonia -Pulmonology following -CPAP as needed, DuoNebs CHF, not in exacerbation, CAD s/p CABG. echo from September showed EF 55-60% On ASA, Amiodarone 200mg BID, Coreg 12.5mg BID, Clonidine 0.1mg Q8, Plavix 75mg daily -Continue Lasix 40 mg twice daily Hypertension Impression: Stable BP -Continue carvedilol, clonidine Diabetes -Supplemental sliding scale -Due to stable blood glucose levels during hospitalization and desire for change , will change from diabetic to cardiac diet -Levemir 10 units twice daily- good readings - change to regular cardiac diet Right foot pain/swelling and pain with weightbearing - get xrays of the right foot - if negative get CT or MRI - cosnider pOdiatry consult - increae Percocet to q 4 prn Scrotal pain Per Dr. Woodruff likely from anasarca. Ultrasound noted. Continue NSAIDs, warm compress Hypotestosteronism Impression: 02/23 total testosterone was 13, free 0.14; s/p 100mg injection. Repeat total testosterone 451/free testosterone 14.4 03/27 Left upper and lower extremity weakness Impression: Head CT on 02/25 shows no acute changes. CT of the neck shows C6-[address] of lumbar spine shows L3-4 herniation with L3 nerve root impingement Per NS, the disc herniation is nonsurgical. S/P course steroids Morbid obesity/debility: -PT daily to mobilize the patient more. Discussed about obtaining a regular mattress to help him mobilize more. -Slowly improving Insomnia -Continue Trazodone 100mg HS -Continue PRN Zolpidem -Continue HS Melatonin DVT prophylaxis: Lovenox Discharge Planning: Pending SNF placement. Case management following (1) Respiratory failure with hypoxia and hypercapnia Qualifiers: Chronicity: chronic Qualified Code(s): J96.11 - Chronic respiratory failure with hypoxia; J96.12 - Chronic respiratory failure with hypercapnia (1) Respiratory failure with hypoxia and hypercapnia Qualifiers: Chronicity: chronic Qualified Code(s): J96.11 - Chronic respiratory failure with hypoxia; J96.12 - Chronic respiratory failure with hypercapnia
--- NOTE | 2018-04-01 17:42 | XR ---
EXAM DATE: 04/01/2018 5:21 PM EDT AGE/SEX: 57 years / Male INDICATIONS: Right foot pain, stood on right foot. Patient unable to point to area of pain CLINICAL DATA: This is the patient's initial encounter. Patient reports that signs and symptoms have been present for 2 days and indicates a pain score of 10/10. MEDICAL/SURGICAL HISTORY: . Hypertension. Chronic obstructive pulmonary disease. Diabetes. . Pacemaker COMPARISON: [facility] [place], ANKLE RIGHT COMPLETE ([id number]), 09/06/2015. . FINDINGS: No acute fracture or dislocation. No bony destructive changes. Mild osteoarthritis of the right foot. Surgical clips in the lower left leg. CONCLUSION: No acute findings. Mild degenerative change. Electronically signed by: Silvino Duke MD 04/01/2018 5:41 PM EDT
[2018-04-01] MEDS: Enoxaparin Inj 40 MG/0.4 ML Syringe SQ SCH (18:39)
[2018-04-01] MEDS: traZODone 50 MG Tablet PO SCH (21:57)
[2018-04-02] MEDS: LORazepam 1 MG Tablet PO PRN ×3 (05:42→18:23)
[2018-04-02] MEDS: Nystatin 100,000 UNITS/GM Powder 15 GM Bottle TOPICAL SCH ×3 (05:43→21:12)
[2018-04-02] MEDS: Insulin NovoLOG Aspart Correctional Sugar Inj SQ SCH ×4 (08:01→21:12)
[2018-04-02] MEDS: Aspirin 325 MG Tablet PO SCH (09:34)
[2018-04-02] MEDS: Insulin Detemir Inj 1,000 UNIT/10 ML Vial SQ SCH ×2 (09:34→21:14)
[2018-04-02] MEDS: Furosemide 40 MG Tablet PO SCH ×2 (09:34→21:12)
[2018-04-02] MEDS: Famotidine 20 MG Tablet PO SCH ×2 (09:34→21:12)
[2018-04-02] MEDS: guaiFENesin 600 MG ER Tablet PO SCH ×2 (09:35→21:11)
[2018-04-02] MEDS: Gabapentin 100 MG Capsule PO SCH ×3 (09:35→18:23)
[2018-04-02] MEDS: Carvedilol 12.5 MG Tablet PO SCH ×2 (09:35→21:11)
[2018-04-02] MEDS: Senna/Docusate Sodium 8.6/50 MG Tablet PO SCH ×4 (09:35→21:12)
[2018-04-02] MEDS: Allopurinol 100 MG Tablet PO SCH (09:35)
[2018-04-02] MEDS: Amiodarone 200 MG Tablet PO SCH ×2 (09:35→21:11)
[2018-04-02] MEDS: Lactic Acid (Ammonium Lactate) 12% Lotion 225 GM Bottle TOPICAL SCH ×2 (09:41→21:13)
[2018-04-02] MEDS: Sodium Chloride 0.65% Nasal Drops/Spray 30 ML Bottle EACH NARE SCH ×2 (09:42→21:13)
[2018-04-02] MEDS: Calamine/Pramoxine Lotion 180 ML Bottle TOPICAL SCH ×2 (09:42→21:14)
[2018-04-02] MEDS: Psyllium Husk SF 3.4 GM in 5.8 GM Packet PO SCH ×2 (09:42→21:13)
[2018-04-02] MEDS: Polyethylene Glycol 3350 17 GM Packet PO SCH (09:42)
--- NOTE | 2018-04-02 13:40 | P.PN ---
Subjective Interval history: awake and alert family at bedside patient states he is doing as much as he can foot pain resolved- no fracture on CXRa- moving more with no pain Physical Exam Vital signs: Vital Signs 04/01/18 16:00 04/01/18 20:00 04/01/18 21:01 Temperature 98.1 F 98.5 F Pulse Rate 68 72 66 Respiratory Rate 21 20 16 Blood Pressure 133/59 L 118/73 Pulse Oximetry 95 93 L 98 04/02/18 00:00 04/02/18 01:00 04/02/18 04:00 Temperature 97.9 F 98.2 F Pulse Rate 105 H 68 Respiratory Rate 18 18 Blood Pressure 125/56 L 121/64 Pulse Oximetry 96 98 100 04/02/18 05:24 04/02/18 07:27 04/02/18 10:04 Temperature Pulse Rate 67 74 73 Respiratory Rate 20 16 16 Blood Pressure Pulse Oximetry 97 Intake & Output 04/01/18 04/02/18 04/02/18 18:59 06:59 18:59 Intake Total 1080 / 1080 Balance 1080 / 1080 Weight 152.5 kg Intake: Oral 1080 / 1080 Other: # Incontinent Voids 2 2 Date of Last Bowel Movement 03/29/18 03/30/18 Narrative: GENERAL: Morbidly obese male, NAD Skin: stasis changes in lower extremities. Abundant tattoos CARDIOVASCULAR: Normal rate and regular rhythm without murmurs; normal perfusion RESPIRATORY: Decreased breath sounds to auscultation suspected secondary to body habitus. Normal rate. On 4 L O2 via NC. GASTROINTESTINAL: Abdomen obese, soft, non-tender, non-distended. Normal active bowel sounds MUSCULOSKELETAL: right foot swelling improved, more range of motion,, no pain on dorsiflexion and flexion good pulses NEURO: Alert & Oriented. Grossly normal cranial nerves. Grossly normal peripheral function PSYCH: Appropriate mood and affect Results - Labs CBC & Chem 7: 03/27/18 08:46 03/27/18 08:46 Laboratory Results - last 24 hr 04/01/18 04/01/18 04/02/18 16:47 19:38 04:23 POC Glucose 111 H 181 H 78 04/02/18 04/02/18 07:35 11:54 POC Glucose 101 171 H - Imaging Impressions Foot X-Ray 04/01/18 00:00 CONCLUSION: No acute findings. Mild degenerative change. Assessment and Plan - Assessment (1) Respiratory failure with hypoxia and hypercapnia Code(s): J96.91 - Respiratory failure, unspecified with hypoxia; J96.92 - Respiratory failure, unspecified with hypercapnia Status: Acute (2) Acute kidney injury superimposed on CKD Code(s): N17.9 - Acute kidney failure, unspecified; N18.9 - Chronic kidney disease, unspecified Status: Acute (3) Acute metabolic encephalopathy Code(s): G93.41 - Metabolic encephalopathy Status: Resolved (4) Altered mental status Code(s): R41.82 - Altered mental status, unspecified Status: Resolved (5) Obesity Code(s): E66.9 - Obesity, unspecified Status: Chronic - Plan 57-year-old male with: Acute on chronic hypercapnic respiratory insufficiency, on home oxygen. PMH COPD , Obstructive sleep apnea Status post treatment of MRSA pneumonia -Pulmonology following -CPAP as needed, DuoNebs CHF, not in exacerbation, CAD s/p CABG. echo from September showed EF 55-60% On ASA, Amiodarone 200mg BID, Coreg 12.5mg BID, Clonidine 0.1mg Q8, Plavix 75mg daily -Continue Lasix 40 mg twice daily Hypertension Impression: Stable BP -Continue carvedilol, clonidine Diabetes -Supplemental sliding scale -Due to stable blood glucose levels during hospitalization and desire for change , will change from diabetic to cardiac diet -Levemir 10 units twice daily- good readings - change to regular cardiac diet Right foot pain/swelling and pain with weightbearing - get xrays of the right foot - if negative get CT or MRI - cosnider pOdiatry consult - increae Percocet to q 4 prn Scrotal pain Per Dr. Woodruff likely from anasarca. Ultrasound noted. Continue NSAIDs, warm compress Hypotestosteronism Impression: 02/23 total testosterone was 13, free 0.14; s/p 100mg injection. Repeat total testosterone 451/free testosterone 14.4 03/27 Left upper and lower extremity weakness Impression: Head CT on 02/25 shows no acute changes. CT of the neck shows C6-[address] of lumbar spine shows L3-4 herniation with L3 nerve root impingement Per NS, the disc herniation is nonsurgical. S/P course steroids Morbid obesity/debility: -PT daily to mobilize the patient more. Discussed about obtaining a regular mattress to help him mobilize more. -Slowly improving Insomnia -Continue Trazodone 100mg HS -Continue PRN Zolpidem -Continue HS Melatonin DVT prophylaxis: Lovenox Discharge Planning: Pending SNF placement. Case management following- d/w family (1) Respiratory failure with hypoxia and hypercapnia Qualifiers: Chronicity: chronic Qualified Code(s): J96.11 - Chronic respiratory failure with hypoxia; J96.12 - Chronic respiratory failure with hypercapnia (1) Respiratory failure with hypoxia and hypercapnia Qualifiers: Chronicity: chronic Qualified Code(s): J96.11 - Chronic respiratory failure with hypoxia; J96.12 - Chronic respiratory failure with hypercapnia
--- NOTE | 2018-04-02 17:03 | P.PNPL ---
Subjective Interval history: 57 YO Obese male with TANA Uses CPAp 1-2 hrs On Nasal cannula No new complaint brother at BS Physical Exam Vital signs: Vital Signs 04/01/18 20:00 04/01/18 21:01 04/02/18 00:00 Temperature 98.5 F 97.9 F Pulse Rate 72 66 105 H Respiratory Rate 20 16 18 Blood Pressure 118/73 125/56 L Pulse Oximetry 93 L 98 96 04/02/18 01:00 04/02/18 04:00 04/02/18 05:24 Temperature 98.2 F Pulse Rate 68 67 Respiratory Rate 18 20 Blood Pressure 121/64 Pulse Oximetry 98 100 04/02/18 07:27 04/02/18 08:00 04/02/18 10:04 Temperature 98.6 F Pulse Rate 74 71 73 Respiratory Rate 16 20 16 Blood Pressure 109/62 Pulse Oximetry 97 98 04/02/18 12:00 Temperature 98.1 F Pulse Rate 65 Respiratory Rate 20 Blood Pressure 124/59 L Pulse Oximetry 96 Intake & Output 04/01/18 04/02/18 04/02/18 18:59 06:59 18:59 Intake Total 1080 / 1080 Balance 1080 / 1080 Weight 152.5 kg Intake: Oral 1080 / 1080 Other: # Incontinent Voids 2 2 Date of Last Bowel Movement 03/29/18 03/30/18 Narrative: GENERAL: Morbidly obese male, NAD Skin: stasis changes in lower extremities. Abundant tattoos CARDIOVASCULAR: Normal rate and regular rhythm without murmurs; normal perfusion RESPIRATORY: Decreased breath sounds to auscultation suspected secondary to body habitus. Normal rate. On 4 L O2 via NC. GASTROINTESTINAL: Abdomen obese, soft, non-tender, non-distended. Normal active bowel sounds MUSCULOSKELETAL: right foot swelling improved, more range of motion,, no pain on dorsiflexion and flexion good pulses NEURO: Alert & Oriented. Grossly normal cranial nerves. Grossly normal peripheral function PSYCH: Appropriate mood and affect Assessment and Plan - Plan IMPRESSION: TANA COPD CHF Morbid obesity Gen Weakness/ deconditioning PLAN: CPAP at Night Supplement 02 Diurease Aerosol nebs Ativan prn anxiety Stable pulm status
[2018-04-02] MEDS: Enoxaparin Inj 40 MG/0.4 ML Syringe SQ SCH (18:23)
[2018-04-02] MEDS: traZODone 50 MG Tablet PO SCH (21:11)
[2018-04-03] MEDS: LORazepam 1 MG Tablet PO PRN ×4 (01:04→22:49)
[2018-04-03] MEDS: Nystatin 100,000 UNITS/GM Powder 15 GM Bottle TOPICAL SCH ×3 (05:09→23:33)
[2018-04-03] MEDS: Allopurinol 100 MG Tablet PO SCH (08:32)
[2018-04-03] MEDS: guaiFENesin 600 MG ER Tablet PO SCH ×2 (08:32→20:46)
[2018-04-03] MEDS: Carvedilol 12.5 MG Tablet PO SCH ×2 (08:32→20:46)
[2018-04-03] MEDS: Furosemide 40 MG Tablet PO SCH ×2 (08:32→20:46)
[2018-04-03] MEDS: Famotidine 20 MG Tablet PO SCH ×2 (08:33→20:47)
[2018-04-03] MEDS: Amiodarone 200 MG Tablet PO SCH ×2 (08:33→20:46)
[2018-04-03] MEDS: Senna/Docusate Sodium 8.6/50 MG Tablet PO SCH ×4 (08:33→23:33)
[2018-04-03] MEDS: Aspirin 325 MG Tablet PO SCH (08:33)
[2018-04-03] MEDS: Gabapentin 100 MG Capsule PO SCH ×3 (08:34→17:57)
[2018-04-03] MEDS: Psyllium Husk SF 3.4 GM in 5.8 GM Packet PO SCH ×2 (08:34→20:47)
[2018-04-03] MEDS: Sodium Chloride 0.65% Nasal Drops/Spray 30 ML Bottle EACH NARE SCH ×2 (09:29→20:56)
[2018-04-03] MEDS: Calamine/Pramoxine Lotion 180 ML Bottle TOPICAL SCH ×2 (09:29→20:55)
[2018-04-03] MEDS: Lactic Acid (Ammonium Lactate) 12% Lotion 225 GM Bottle TOPICAL SCH ×2 (09:29→20:55)
[2018-04-03] MEDS: Polyethylene Glycol 3350 17 GM Packet PO SCH (09:30)
[2018-04-03] MEDS: Insulin Detemir Inj 1,000 UNIT/10 ML Vial SQ SCH ×2 (09:31→20:54)
[2018-04-03] MEDS: Insulin NovoLOG Aspart Correctional Sugar Inj SQ SCH ×4 (11:33→20:53)
--- NOTE | 2018-04-03 14:29 | P.DIET ---
Nutritional Evaluation Type of nutrition evaluation: initial Nutrition screening: [facility] [place] (Diabetic, obese, TANA, not happy about his diet - req pasta, diet pepsi, PB) Assessment Assessment: Pt seen in his room w/out visitors. He stated that he's upset b/c all of a sudden he cannot have peanut butter, pasta, or diet pepsi. I provided pt w/ the menu and explained what food items were compliant w/ a heart healthy diet. I also explained his recent diet change from a 2500ADA to a Heart Healthy. Pt requested a Regular diet and asked me to change this for him. I explained to pt that MD can change the diet order and that I would discuss it w/ MD. Per conversation w/ MD, recommend keeping the Heart Healthy diet and monitoring pt' s tolerance. Okay to allow peanut butter per RD. Consult dietitian if needed.
--- NOTE | 2018-04-03 15:44 | P.PN ---
Subjective Interval history: wants a regular diet- discussed with him Physical Exam Vital signs: Vital Signs 04/02/18 16:00 04/02/18 20:00 04/02/18 20:54 Temperature 97.7 F 97.9 F Pulse Rate 69 68 69 Respiratory Rate 18 16 Blood Pressure 112/56 L 124/57 L Pulse Oximetry 100 95 95 04/03/18 00:46 04/03/18 01:27 04/03/18 04:00 Temperature 98.0 F 98.1 F Pulse Rate 62 68 Respiratory Rate 18 15 Blood Pressure 113/56 L 109/59 L Pulse Oximetry 98 94 L 96 04/03/18 09:05 04/03/18 12:00 Temperature 97.3 F L Pulse Rate 72 70 Respiratory Rate 14 22 Blood Pressure 127/60 Pulse Oximetry 97 99 Intake & Output 04/02/18 04/03/18 04/03/18 18:59 06:59 18:59 Intake Total 824 / 824 120 / 120 Balance 824 / 824 120 / 120 Weight 152.8 kg Intake: Oral 824 / 824 120 / 120 Other: # Voids 2 3 Date of Last Bowel Movement 03/30/18 03/30/18 03/31/18 # Bowel Movements 0 0 Narrative: GENERAL: Morbidly obese male, NAD, very interactive Skin: stasis changes in lower extremities. Abundant tattoos CARDIOVASCULAR: Normal rate and regular rhythm without murmurs; normal perfusion RESPIRATORY: Decreased breath sounds to auscultation suspected secondary to body habitus. Normal rate. On 4 L O2 via NC. GASTROINTESTINAL: Abdomen obese, soft, non-tender, non-distended. Normal active bowel sounds MUSCULOSKELETAL: right foot swelling improved, more range of motion,, no pain on dorsiflexion and flexion good pulses NEURO: Alert & Oriented. Grossly normal cranial nerves. Grossly normal peripheral function PSYCH: Appropriate mood and affect Results - Labs CBC & Chem 7: 03/27/18 08:46 03/27/18 08:46 Laboratory Results - last 24 hr 04/02/18 04/02/18 04/03/18 16:49 19:43 07:39 POC Glucose 152 H 339 H 90 04/03/18 11:57 POC Glucose 183 H Assessment and Plan - Assessment (1) Respiratory failure with hypoxia and hypercapnia Code(s): J96.91 - Respiratory failure, unspecified with hypoxia; J96.92 - Respiratory failure, unspecified with hypercapnia Status: Acute (2) Acute kidney injury superimposed on CKD Code(s): N17.9 - Acute kidney failure, unspecified; N18.9 - Chronic kidney disease, unspecified Status: Acute (3) Acute metabolic encephalopathy Code(s): G93.41 - Metabolic encephalopathy Status: Resolved (4) Altered mental status Code(s): R41.82 - Altered mental status, unspecified Status: Resolved (5) Obesity Code(s): E66.9 - Obesity, unspecified Status: Chronic - Plan 57-year-old male with: Acute on chronic hypercapnic respiratory insufficiency, on home oxygen. PMH COPD , Obstructive sleep apnea Status post treatment of MRSA pneumonia -Pulmonology following -CPAP as needed, DuoNebs CHF, not in exacerbation, CAD s/p CABG. echo from September showed EF 55-60% On ASA, Amiodarone 200mg BID, Coreg 12.5mg BID, Clonidine 0.1mg Q8, Plavix 75mg daily -Continue Lasix 40 mg twice daily Hypertension Impression: Stable BP -Continue carvedilol, clonidine Diabetes -Supplemental sliding scale -Due to stable blood glucose levels during hospitalization and desire for change , will change from diabetic to cardiac diet -Levemir 10 units twice daily- good readings - change to regular diet Right foot pain/swelling and pain with weightbearing - get xrays of the right foot - if negative get CT or MRI - cosnider pOdiatry consult - increae Percocet to q 4 prn Scrotal pain Per Dr. Woodruff likely from anasarca. Ultrasound noted. Continue NSAIDs, warm compress Hypotestosteronism Impression: 02/23 total testosterone was 13, free 0.14; s/p 100mg injection. Repeat total testosterone 451/free testosterone 14.4 7 Left upper and lower extremity weakness- improved Impression: Head CT on 02/25 shows no acute changes. CT of the neck shows C6-[address] of lumbar spine shows L3-4 herniation with L3 nerve root impingement Per NS, the disc herniation is nonsurgical. S/P course steroids Morbid obesity/debility: -PT daily to mobilize the patient more. Discussed about obtaining a regular mattress to help him mobilize more. -Slowly improving Insomnia -Continue Trazodone 100mg HS -Continue PRN Zolpidem -Continue HS Melatonin DVT prophylaxis: Lovenox Discharge Planning: Pending SNF placement. Case management following- d/w family (1) Respiratory failure with hypoxia and hypercapnia Qualifiers: Chronicity: chronic Qualified Code(s): J96.11 - Chronic respiratory failure with hypoxia; J96.12 - Chronic respiratory failure with hypercapnia (1) Respiratory failure with hypoxia and hypercapnia Qualifiers: Chronicity: chronic Qualified Code(s): J96.11 - Chronic respiratory failure with hypoxia; J96.12 - Chronic respiratory failure with hypercapnia
[2018-04-03] MEDS: Enoxaparin Inj 40 MG/0.4 ML Syringe SQ SCH (17:59)
--- NOTE | 2018-04-03 18:47 | P.PNPL ---
Subjective Interval history: 57 YO Obese male with TANA Uses CPAP On Nasal cannula No new complaint brother at Physical Exam Vital signs: Vital Signs 04/02/18 20:00 04/02/18 20:54 04/03/18 00:46 Temperature 97.9 F Pulse Rate 68 69 Respiratory Rate 18 16 Blood Pressure 124/57 L Pulse Oximetry 95 95 98 04/03/18 01:27 04/03/18 04:00 04/03/18 09:05 Temperature 98.0 F 98.1 F Pulse Rate 62 68 72 Respiratory Rate 18 15 14 Blood Pressure 113/56 L 109/59 L Pulse Oximetry 94 L 96 97 04/03/18 12:00 04/03/18 16:00 Temperature 97.3 F L 98.4 F Pulse Rate 70 72 Respiratory Rate 22 22 Blood Pressure 127/60 120/60 Pulse Oximetry 99 96 Intake & Output 04/02/18 04/03/18 04/03/18 18:59 06:59 18:59 Intake Total 824 / 824 120 / 120 Balance 824 / 824 120 / 120 Weight 152.8 kg Intake: Oral 824 / 824 120 / 120 Other: # Voids 2 3 Date of Last Bowel Movement 03/30/18 03/30/18 03/31/18 # Bowel Movements 0 0 Narrative: GENERAL: Morbidly obese male, NAD, very interactive Skin: stasis changes in lower extremities. Abundant tattoos CARDIOVASCULAR: Normal rate and regular rhythm without murmurs; normal perfusion RESPIRATORY: Decreased breath sounds to auscultation suspected secondary to body habitus. Normal rate. On 4 L O2 via NC. GASTROINTESTINAL: Abdomen obese, soft, non-tender, non-distended. Normal active bowel sounds MUSCULOSKELETAL: right foot swelling improved, more range of motion,, no pain on dorsiflexion and flexion good pulses NEURO: Alert & Oriented. Grossly normal cranial nerves. Grossly normal peripheral function PSYCH: Appropriate mood and affect Assessment and Plan - Plan IMPRESSION: TANA COPD CHF Morbid obesity Gen Weakness/ deconditioning PLAN: CPAP at Night Supplement 02 Diurease Aerosol nebs Ativan prn anxiety Stable pulm status
[2018-04-03] MEDS: traZODone 50 MG Tablet PO SCH (20:47)
[2018-04-04] MEDS: Nystatin 100,000 UNITS/GM Powder 15 GM Bottle TOPICAL SCH ×3 (05:07→23:01)
[2018-04-04] MEDS: LORazepam 1 MG Tablet PO PRN ×2 (07:26→19:40)
[2018-04-04] MEDS: Insulin NovoLOG Aspart Correctional Sugar Inj SQ SCH ×4 (08:22→21:49)
[2018-04-04] MEDS: Gabapentin 100 MG Capsule PO SCH ×3 (08:24→17:17)
[2018-04-04] MEDS: Allopurinol 100 MG Tablet PO SCH (08:24)
[2018-04-04] MEDS: Amiodarone 200 MG Tablet PO SCH ×2 (08:24→21:39)
[2018-04-04] MEDS: Senna/Docusate Sodium 8.6/50 MG Tablet PO SCH ×4 (08:24→23:00)
[2018-04-04] MEDS: Furosemide 40 MG Tablet PO SCH ×2 (08:25→21:41)
[2018-04-04] MEDS: Aspirin 325 MG Tablet PO SCH (08:25)
[2018-04-04] MEDS: Famotidine 20 MG Tablet PO SCH ×2 (08:25→23:00)
[2018-04-04] MEDS: guaiFENesin 600 MG ER Tablet PO SCH ×2 (08:25→21:42)
[2018-04-04] MEDS: Carvedilol 12.5 MG Tablet PO SCH ×2 (08:26→21:39)
[2018-04-04] MEDS: Psyllium Husk SF 3.4 GM in 5.8 GM Packet PO SCH ×2 (08:26→21:42)
[2018-04-04] MEDS: Insulin Detemir Inj 1,000 UNIT/10 ML Vial SQ SCH ×2 (08:27→21:41)
[2018-04-04] MEDS: Polyethylene Glycol 3350 17 GM Packet PO SCH (08:28)
--- NOTE | 2018-04-04 11:19 | P.PN ---
Subjective Interval history: awake and alert taking good po well no pain complains Physical Exam Vital signs: Vital Signs 04/03/18 12:00 04/03/18 16:00 04/03/18 19:58 Temperature 97.3 F L 98.4 F Pulse Rate 70 72 70 Respiratory Rate 22 22 18 Blood Pressure 127/60 120/60 Pulse Oximetry 99 96 95 04/03/18 20:00 04/04/18 00:00 04/04/18 04:00 Temperature 98.3 F 98.4 F 98.0 F Pulse Rate 70 70 68 Respiratory Rate 18 18 18 Blood Pressure 104/55 L 106/60 152/71 H Pulse Oximetry 97 97 96 04/04/18 07:50 04/04/18 08:00 Temperature 97.9 F Pulse Rate 77 69 Respiratory Rate 16 20 Blood Pressure 134/60 Pulse Oximetry 92 L 98 Intake & Output 04/03/18 04/04/18 04/04/18 18:59 06:59 18:59 Intake Total 520 / 520 240 / 240 Balance 520 / 520 240 / 240 Weight 154.1 kg Intake: Oral 520 / 520 240 / 240 Other: # Voids 4 3 Date of Last Bowel Movement 03/31/18 # Bowel Movements 0 0 Narrative: GENERAL: Morbidly obese male, NAD, very interactive Skin: stasis changes in lower extremities. Abundant tattoos CARDIOVASCULAR: Normal rate and regular rhythm without murmurs; normal perfusion RESPIRATORY: Decreased breath sounds to auscultation suspected secondary to body habitus. GASTROINTESTINAL: Abdomen obese, soft, non-tender, non-distended. Normal active bowel sounds MUSCULOSKELETAL: right foot swelling resolved more range of motion,, no pain on dorsiflexion and flexion good pulses NEURO: Alert & Oriented. Grossly normal cranial nerves. Grossly normal peripheral function PSYCH: Appropriate mood and affect Results - Labs CBC & Chem 7: 03/27/18 08:46 03/27/18 08:46 Laboratory Results - last 24 hr 04/03/18 04/03/18 04/03/18 11:57 17:09 20:00 POC Glucose 183 H 155 H 140 H 04/04/18 07:58 POC Glucose 142 H Assessment and Plan - Assessment (1) Respiratory failure with hypoxia and hypercapnia Code(s): J96.91 - Respiratory failure, unspecified with hypoxia; J96.92 - Respiratory failure, unspecified with hypercapnia Status: Acute (2) Acute kidney injury superimposed on CKD Code(s): N17.9 - Acute kidney failure, unspecified; N18.9 - Chronic kidney disease, unspecified Status: Acute (3) Acute metabolic encephalopathy Code(s): G93.41 - Metabolic encephalopathy Status: Resolved (4) Altered mental status Code(s): R41.82 - Altered mental status, unspecified Status: Resolved (5) Obesity Code(s): E66.9 - Obesity, unspecified Status: Chronic - Plan 57-year-old male with: Acute on chronic hypercapnic respiratory insufficiency, on home oxygen. PMH COPD , Obstructive sleep apnea Status post treatment of MRSA pneumonia -Pulmonology following -CPAP as needed, DuoNebs CHF, not in exacerbation, CAD s/p CABG. echo from September showed EF 55-60% On ASA, Amiodarone 200mg BID, Coreg 12.5mg BID, Clonidine 0.1mg Q8, Plavix 75mg daily -Continue Lasix 40 mg twice daily Hypertension Impression: Stable BP -Continue carvedilol, clonidine Diabetes -Supplemental sliding scale -Due to stable blood glucose levels during hospitalization and desire for change , will change from diabetic to cardiac diet -Levemir 10 units twice daily- good readings - change to regular diet Right foot pain/swelling - Resolved - xrays of the right foot - negative- - cosnider pOdiatry consult if recurrs - Percocet to q 4 prn Scrotal pain- improved Per Dr. Woodruff likely from anasarca. Ultrasound noted. Continue NSAIDs, warm compress Hypotestosteronism Impression: 02/23 total testosterone was 13, free 0.14; s/p 100mg injection. Repeat total testosterone 451/free testosterone 14.4 7/ Left upper and lower extremity weakness- improved Impression: Head CT on 02/25 shows no acute changes. CT of the neck shows C6-[address] of lumbar spine shows L3-4 herniation with L3 nerve root impingement Per NS, the disc herniation is nonsurgical. S/P course steroids Morbid obesity/debility: -PT daily to mobilize the patient more. Discussed about obtaining a regular mattress to help him mobilize more. -Slowly improving Insomnia -Continue Trazodone 100mg HS -Continue PRN Zolpidem -Continue HS Melatonin DVT prophylaxis: Lovenox Discharge Planning: Pending SNF placement. Case management following- (1) Respiratory failure with hypoxia and hypercapnia Qualifiers: Chronicity: chronic Qualified Code(s): J96.11 - Chronic respiratory failure with hypoxia; J96.12 - Chronic respiratory failure with hypercapnia (1) Respiratory failure with hypoxia and hypercapnia Qualifiers: Chronicity: chronic Qualified Code(s): J96.11 - Chronic respiratory failure with hypoxia; J96.12 - Chronic respiratory failure with hypercapnia
[2018-04-04] MEDS: Sodium Chloride 0.65% Nasal Drops/Spray 30 ML Bottle EACH NARE SCH ×2 (17:18→21:38)
[2018-04-04] MEDS: Calamine/Pramoxine Lotion 180 ML Bottle TOPICAL SCH ×2 (17:23→22:59)
[2018-04-04] MEDS: Lactic Acid (Ammonium Lactate) 12% Lotion 225 GM Bottle TOPICAL SCH ×2 (17:23→21:40)
--- NOTE | 2018-04-04 18:22 | P.PNPL ---
Subjective Interval history: 57 YO Obese male with TANA Uses CPAP On Nasal cannula No new complaint brother at BS Comfortable Physical Exam Vital signs: Vital Signs 04/03/18 19:58 04/03/18 20:00 04/04/18 00:00 Temperature 98.3 F 98.4 F Pulse Rate 70 70 70 Respiratory Rate 18 18 18 Blood Pressure 104/55 L 106/60 Pulse Oximetry 95 97 97 04/04/18 04:00 04/04/18 07:50 04/04/18 08:00 Temperature 98.0 F 97.9 F Pulse Rate 68 77 69 Respiratory Rate 18 16 20 Blood Pressure 152/71 H 134/60 Pulse Oximetry 96 92 L 98 04/04/18 12:00 04/04/18 15:20 04/04/18 16:35 Temperature 98.0 F Pulse Rate 70 Respiratory Rate 20 Blood Pressure 128/62 Pulse Oximetry 98 98 94 L 04/04/18 16:36 Temperature Pulse Rate 75 Respiratory Rate 24 Blood Pressure Pulse Oximetry Intake & Output 04/03/18 04/04/18 04/04/18 18:59 06:59 18:59 Intake Total 520 / 520 240 / 240 Balance 520 / 520 240 / 240 Weight 154.1 kg Intake: Oral 520 / 520 240 / 240 Other: # Voids 4 3 Date of Last Bowel Movement 03/31/18 # Bowel Movements 0 0 Narrative: GENERAL: Morbidly obese male, NAD, very interactive Skin: stasis changes in lower extremities. Abundant tattoos CARDIOVASCULAR: Normal rate and regular rhythm without murmurs; normal perfusion RESPIRATORY: Decreased breath sounds to auscultation suspected secondary to body habitus. GASTROINTESTINAL: Abdomen obese, soft, non-tender, non-distended. Normal active bowel sounds MUSCULOSKELETAL: right foot swelling resolved more range of motion,, no pain on dorsiflexion and flexion good pulses NEURO: Alert & Oriented. Grossly normal cranial nerves. Grossly normal peripheral function PSYCH: Appropriate mood and affect Assessment and Plan - Plan IMPRESSION: TANA COPD CHF Morbid obesity Gen Weakness/ deconditioning PLAN: CPAP at Night Supplement 02 Diurease Aerosol nebs Ativan prn anxiety Stable pulm status
[2018-04-04] MEDS: traZODone 50 MG Tablet PO SCH (21:39)
[2018-04-05] MEDS: LORazepam 1 MG Tablet PO PRN ×4 (02:45→21:57)
[2018-04-05] MEDS: Nystatin 100,000 UNITS/GM Powder 15 GM Bottle TOPICAL SCH ×2 (06:07→21:59)
[2018-04-05] MEDS: Furosemide 40 MG Tablet PO SCH ×2 (08:14→21:58)
[2018-04-05] MEDS: Amiodarone 200 MG Tablet PO SCH ×2 (08:14→21:58)
[2018-04-05] MEDS: Famotidine 20 MG Tablet PO SCH ×2 (08:14→21:58)
[2018-04-05] MEDS: Aspirin 325 MG Tablet PO SCH (08:15)
[2018-04-05] MEDS: guaiFENesin 600 MG ER Tablet PO SCH ×2 (08:15→21:58)
[2018-04-05] MEDS: Gabapentin 100 MG Capsule PO SCH ×3 (08:16→18:07)
[2018-04-05] MEDS: Allopurinol 100 MG Tablet PO SCH (08:16)
[2018-04-05] MEDS: Senna/Docusate Sodium 8.6/50 MG Tablet PO SCH ×4 (08:16→23:33)
[2018-04-05] MEDS: Enoxaparin Inj 40 MG/0.4 ML Syringe SQ SCH ×2 (08:19→18:06)
[2018-04-05] MEDS: Lactic Acid (Ammonium Lactate) 12% Lotion 225 GM Bottle TOPICAL SCH ×2 (08:19→22:01)
[2018-04-05] MEDS: Carvedilol 12.5 MG Tablet PO SCH ×2 (08:19→21:58)
[2018-04-05] MEDS: Calamine/Pramoxine Lotion 180 ML Bottle TOPICAL SCH ×2 (08:19→22:00)
[2018-04-05] MEDS: Polyethylene Glycol 3350 17 GM Packet PO SCH (08:20)
[2018-04-05] MEDS: Psyllium Husk SF 3.4 GM in 5.8 GM Packet PO SCH ×2 (08:20→22:02)
--- NOTE | 2018-04-05 11:39 | P.PN ---
Subjective Interval history: states happy with change in diet now no complains of pain Physical Exam Vital signs: Vital Signs 04/04/18 12:00 04/04/18 15:20 04/04/18 16:35 Temperature 98.0 F Pulse Rate 70 Respiratory Rate 20 Blood Pressure 128/62 Pulse Oximetry 98 98 94 L 04/04/18 16:36 04/04/18 18:00 04/04/18 20:00 Temperature 98.1 F 97.5 F L Pulse Rate 75 70 70 Respiratory Rate 24 20 18 Blood Pressure 130/64 117/64 Pulse Oximetry 98 96 04/04/18 20:11 04/05/18 00:00 04/05/18 00:38 Temperature 97.4 F L Pulse Rate 70 66 97 H Respiratory Rate 19 18 22 Blood Pressure 135/72 Pulse Oximetry 96 96 04/05/18 04:00 04/05/18 08:42 04/05/18 09:27 Temperature 98 F Pulse Rate 65 62 Respiratory Rate 18 17 Blood Pressure 133/60 Pulse Oximetry 97 98 100 Intake & Output 04/04/18 04/05/18 04/05/18 18:59 06:59 18:59 Intake Total 720 / 720 Balance 720 / 720 Weight 152.9 kg Intake: Oral 720 / 720 Other: # Voids 7 # Bowel Movements 0 Narrative: GENERAL: Morbidly obese male, NAD, very interactive Skin: stasis changes in lower extremities. Abundant tattoos CARDIOVASCULAR: Normal rate and regular rhythm without murmurs; normal perfusion RESPIRATORY: Decreased breath sounds to auscultation suspected secondary to body habitus. GASTROINTESTINAL: Abdomen obese, soft, non-tender, non-distended. Normal active bowel sounds MUSCULOSKELETAL: right foot swelling - resolved more range of motion,, no pain on dorsiflexion and flexion good pulses NEURO: Alert & Oriented. Grossly normal cranial nerves. Grossly normal peripheral function PSYCH: Appropriate mood and affect Results - Labs CBC & Chem 7: 03/27/18 08:46 03/27/18 08:46 Laboratory Results - last 24 hr 04/04/18 04/04/18 04/04/18 12:48 18:15 20:37 POC Glucose 157 H 191 H 211 H 04/05/18 08:57 POC Glucose 104 Assessment and Plan - Assessment (1) Respiratory failure with hypoxia and hypercapnia Code(s): J96.91 - Respiratory failure, unspecified with hypoxia; J96.92 - Respiratory failure, unspecified with hypercapnia Status: Acute (2) Acute kidney injury superimposed on CKD Code(s): N17.9 - Acute kidney failure, unspecified; N18.9 - Chronic kidney disease, unspecified Status: Acute (3) Acute metabolic encephalopathy Code(s): G93.41 - Metabolic encephalopathy Status: Resolved (4) Altered mental status Code(s): R41.82 - Altered mental status, unspecified Status: Resolved (5) Obesity Code(s): E66.9 - Obesity, unspecified Status: Chronic - Plan 57-year-old male with: Acute on chronic hypercapnic respiratory insufficiency, on home oxygen. PMH COPD , Obstructive sleep apnea Status post treatment of MRSA pneumonia -Pulmonology following -CPAP as needed, DuoNebs CHF, not in exacerbation, CAD s/p CABG. echo from September showed EF 55-60% On ASA, Amiodarone 200mg BID, Coreg 12.5mg BID, Clonidine 0.1mg Q8, Plavix 75mg daily -Continue Lasix 40 mg twice daily Hypertension Impression: Stable BP -Continue carvedilol, clonidine Diabetes -Supplemental sliding scale -Due to stable blood glucose levels during hospitalization and desire for change , will change from diabetic to cardiac diet -Levemir 10 units twice daily- good readings - change to regular diet- as patient requested - monitor sugars Right foot pain/swelling - Resolved - xrays of the right foot - negative- - cosnider pOdiatry consult if recurrs - Percocet to q 4 prn Scrotal pain- improved Per Dr. Woodruff likely from anasarca. Ultrasound noted. Continue NSAIDs, warm compress Hypotestosteronism Impression: 02/23 total testosterone was 13, free 0.14; s/p 100mg injection. Repeat total testosterone 451/free testosterone 14.4 03/27 Left upper and lower extremity weakness- improved Impression: Head CT on 02/25 shows no acute changes. CT of the neck shows C6-[address] of lumbar spine shows L3-4 herniation with L3 nerve root impingement Per NS, the disc herniation is nonsurgical. S/P course steroids Morbid obesity/debility: -PT daily to mobilize the patient more. Discussed about obtaining a regular mattress to help him mobilize more. -Slowly improving Insomnia -Continue Trazodone 100mg HS -Continue PRN Zolpidem -Continue HS Melatonin DVT prophylaxis: Lovenox Discharge Planning: Pending SNF placement. Case management following- (1) Respiratory failure with hypoxia and hypercapnia Qualifiers: Chronicity: chronic Qualified Code(s): J96.11 - Chronic respiratory failure with hypoxia; J96.12 - Chronic respiratory failure with hypercapnia (1) Respiratory failure with hypoxia and hypercapnia Qualifiers: Chronicity: chronic Qualified Code(s): J96.11 - Chronic respiratory failure with hypoxia; J96.12 - Chronic respiratory failure with hypercapnia
[2018-04-05] MEDS: Insulin Detemir Inj 1,000 UNIT/10 ML Vial SQ SCH ×2 (12:41→22:01)
[2018-04-05] MEDS: Insulin NovoLOG Aspart Correctional Sugar Inj SQ SCH ×4 (12:42→22:02)
[2018-04-05] MEDS: Sodium Chloride 0.65% Nasal Drops/Spray 30 ML Bottle EACH NARE SCH ×2 (14:01→22:00)
--- NOTE | 2018-04-05 18:08 | P.PNPL ---
Subjective Interval history: 57 YO Obese male with TANA Uses CPAP On Nasal cannula No new complaint Comfortable, sleeping Physical Exam Vital signs: Vital Signs 04/04/18 20:00 04/04/18 20:11 04/05/18 00:00 Temperature 97.5 F L 97.4 F L Pulse Rate 70 70 66 Respiratory Rate 18 19 18 Blood Pressure 117/64 135/72 Pulse Oximetry 96 96 96 04/05/18 00:38 04/05/18 04:00 04/05/18 08:00 Temperature 98 F 97.4 F L Pulse Rate 97 H 65 64 Respiratory Rate 22 18 18 Blood Pressure 133/60 113/53 L Pulse Oximetry 97 100 04/05/18 08:42 04/05/18 09:27 04/05/18 12:00 Temperature 98.5 F Pulse Rate 62 66 Respiratory Rate 17 18 Blood Pressure 114/57 L Pulse Oximetry 98 100 100 Intake & Output 04/04/18 04/05/18 04/05/18 18:59 06:59 18:59 Intake Total 720 / 720 Balance 720 / 720 Weight 152.9 kg Intake: Oral 720 / 720 Other: # Voids 7 # Bowel Movements 0 Narrative: GENERAL: Morbidly obese male, NAD, very interactive Skin: stasis changes in lower extremities. Abundant tattoos CARDIOVASCULAR: Normal rate and regular rhythm without murmurs; normal perfusion RESPIRATORY: Decreased breath sounds to auscultation suspected secondary to body habitus. GASTROINTESTINAL: Abdomen obese, soft, non-tender, non-distended. Normal active bowel sounds MUSCULOSKELETAL: right foot swelling - resolved more range of motion,, no pain on dorsiflexion and flexion good pulses NEURO: Alert & Oriented. Grossly normal cranial nerves. Grossly normal peripheral function PSYCH: Appropriate mood and affect Assessment and Plan - Plan IMPRESSION: TANA COPD CHF Morbid obesity Gen Weakness/ deconditioning PLAN: CPAP at Night Supplement 02 Diurease Aerosol nebs Ativan prn anxiety Stable pulm status Awaiting dc plans/placement
[2018-04-05] MEDS: Zolpidem Tartrate 5 MG Tablet PO PRN (21:58)
[2018-04-05] MEDS: Melatonin 5 MG Tablet PO PRN (21:58)
[2018-04-05] MEDS: traZODone 50 MG Tablet PO SCH (21:58)
[2018-04-06] MEDS: Nystatin 100,000 UNITS/GM Powder 15 GM Bottle TOPICAL SCH ×3 (06:05→22:17)
[2018-04-06] MEDS: Insulin NovoLOG Aspart Correctional Sugar Inj SQ SCH ×4 (08:51→22:19)
[2018-04-06] MEDS: Psyllium Husk SF 3.4 GM in 5.8 GM Packet PO SCH ×2 (08:54→22:15)
[2018-04-06] MEDS: Furosemide 40 MG Tablet PO SCH ×2 (08:54→22:14)
[2018-04-06] MEDS: LORazepam 1 MG Tablet PO PRN ×3 (08:54→22:11)
[2018-04-06] MEDS: guaiFENesin 600 MG ER Tablet PO SCH ×2 (08:54→22:11)
[2018-04-06] MEDS: Gabapentin 100 MG Capsule PO SCH ×3 (08:55→18:05)
[2018-04-06] MEDS: Amiodarone 200 MG Tablet PO SCH ×2 (08:55→22:12)
[2018-04-06] MEDS: Carvedilol 12.5 MG Tablet PO SCH ×2 (08:55→22:15)
[2018-04-06] MEDS: Aspirin 325 MG Tablet PO SCH (08:55)
[2018-04-06] MEDS: Allopurinol 100 MG Tablet PO SCH (08:55)
[2018-04-06] MEDS: Famotidine 20 MG Tablet PO SCH ×2 (08:55→22:12)
[2018-04-06] MEDS: Insulin Detemir Inj 1,000 UNIT/10 ML Vial SQ SCH ×2 (08:55→22:17)
[2018-04-06] MEDS: Calamine/Pramoxine Lotion 180 ML Bottle TOPICAL SCH ×2 (08:56→22:16)
[2018-04-06] MEDS: Sodium Chloride 0.65% Nasal Drops/Spray 30 ML Bottle EACH NARE SCH ×2 (08:56→22:16)
[2018-04-06] MEDS: Lactic Acid (Ammonium Lactate) 12% Lotion 225 GM Bottle TOPICAL SCH ×2 (08:57→22:15)
[2018-04-06] MEDS: Polyethylene Glycol 3350 17 GM Packet PO SCH (08:57)
[2018-04-06] MEDS: Senna/Docusate Sodium 8.6/50 MG Tablet PO SCH ×4 (08:58→22:21)
--- NOTE | 2018-04-06 15:35 | P.PN ---
Subjective Interval history: no complains feels great Physical Exam Vital signs: Vital Signs 04/05/18 16:00 04/05/18 19:30 04/05/18 19:39 Temperature 97.6 F 97.8 F Pulse Rate 65 69 65 Respiratory Rate 18 18 16 Blood Pressure 121/58 L 117/55 L Pulse Oximetry 98 98 95 04/05/18 20:00 04/05/18 23:55 04/06/18 04:00 Temperature 97.9 F 98 F Pulse Rate 60 61 Respiratory Rate 20 18 18 Blood Pressure 119/61 155/65 H Pulse Oximetry 97 98 04/06/18 08:00 04/06/18 12:00 Temperature 97.7 F 98.2 F Pulse Rate 66 64 Respiratory Rate 20 20 Blood Pressure 128/58 L 110/83 Pulse Oximetry 98 95 Intake & Output 04/05/18 04/06/18 04/06/18 18:59 06:59 18:59 Intake Total 480 / 480 Output Total 0 / 0 Balance 480 / 480 Weight 152.5 kg Intake: Oral 480 / 480 Output: Stool 0 / 0 Other: # Voids 6 Date of Last Bowel Movement 04/05/18 Narrative: Morbidly obese male, NAD, very interactive , in good spirts Skin: stasis changes in lower extremities. no dryness CARDIOVASCULAR: Normal rate and regular rhythm without murmurs; normal perfusion RESPIRATORY: Decreased breath sounds to auscultation suspected secondary to body habitus. GASTROINTESTINAL: Abdomen obese, soft, non-tender, non-distended. Normal active bowel sounds MUSCULOSKELETAL: right foot swelling - resolved more range of motion,, no pain on dorsiflexion and flexion good pulses NEURO: Alert & Oriented. Grossly normal cranial nerves. Grossly normal peripheral function PSYCH: Appropriate mood and affect Results - Labs CBC & Chem 7: 03/27/18 08:46 03/27/18 08:46 Laboratory Results - last 24 hr 04/05/18 04/05/18 04/06/18 18:06 20:21 07:30 POC Glucose 133 H 144 H 135 H 04/06/18 12:04 POC Glucose 168 H Assessment and Plan - Assessment (1) Respiratory failure with hypoxia and hypercapnia Code(s): J96.91 - Respiratory failure, unspecified with hypoxia; J96.92 - Respiratory failure, unspecified with hypercapnia Status: Acute (2) Acute kidney injury superimposed on CKD Code(s): N17.9 - Acute kidney failure, unspecified; N18.9 - Chronic kidney disease, unspecified Status: Acute (3) Acute metabolic encephalopathy Code(s): G93.41 - Metabolic encephalopathy Status: Resolved (4) Altered mental status Code(s): R41.82 - Altered mental status, unspecified Status: Resolved (5) Obesity Code(s): E66.9 - Obesity, unspecified Status: Chronic - Plan 57-year-old male with: Acute on chronic hypercapnic respiratory insufficiency, on home oxygen. PMH COPD , Obstructive sleep apnea Status post treatment of MRSA pneumonia -Pulmonology following -CPAP as needed, DuoNebs CHF, not in exacerbation, CAD s/p CABG. echo from September showed EF 55-60% On ASA, Amiodarone 200mg BID, Coreg 12.5mg BID, Clonidine 0.1mg Q8, Plavix 75mg daily -Continue Lasix 40 mg twice daily Hypertension Impression: Stable BP -Continue carvedilol, clonidine Diabetes -Supplemental sliding scale -Due to stable blood glucose levels during hospitalization and desire for change , will change from diabetic to cardiac diet -Levemir 10 units twice daily- good readings - change to regular diet- as patient requested - monitor sugars Right foot pain/swelling - Resolved - xrays of the right foot - negative- - cosnider pOdiatry consult if recurrs - Percocet to q 4 prn Scrotal pain- improved Per Dr. Woodruff likely from anasarca. Ultrasound noted. Continue NSAIDs, warm compress Hypotestosteronism Impression: 02/23 total testosterone was 13, free 0.14; s/p 100mg injection. Repeat total testosterone 451/free testosterone 14.4 7/ Left upper and lower extremity weakness- improved Impression: Head CT on 02/25 shows no acute changes. CT of the neck shows C6-[address] of lumbar spine shows L3-4 herniation with L3 nerve root impingement Per NS, the disc herniation is nonsurgical. S/P course steroids Morbid obesity/debility: -PT daily to mobilize the patient more. Discussed about obtaining a regular mattress to help him mobilize more. -Slowly improving Insomnia -Continue Trazodone 100mg HS -Continue PRN Zolpidem -Continue HS Melatonin DVT prophylaxis: Lovenox Discharge Planning: Pending SNF placement. Case management following- (1) Respiratory failure with hypoxia and hypercapnia Qualifiers: Chronicity: chronic Qualified Code(s): J96.11 - Chronic respiratory failure with hypoxia; J96.12 - Chronic respiratory failure with hypercapnia (1) Respiratory failure with hypoxia and hypercapnia Qualifiers: Chronicity: chronic Qualified Code(s): J96.11 - Chronic respiratory failure with hypoxia; J96.12 - Chronic respiratory failure with hypercapnia
[2018-04-06] MEDS: Enoxaparin Inj 40 MG/0.4 ML Syringe SQ SCH (18:05)
--- NOTE | 2018-04-06 18:14 | P.PNPL ---
Subjective Interval history: 57 YO Obese male with TANA Uses CPAP On Nasal cannula No new complaint Physical Exam Vital signs: Vital Signs 04/05/18 19:30 04/05/18 19:39 04/05/18 20:00 Temperature 97.8 F Pulse Rate 69 65 Respiratory Rate 18 16 20 Blood Pressure 117/55 L Pulse Oximetry 98 95 04/05/18 23:55 04/06/18 04:00 04/06/18 08:00 Temperature 97.9 F 98 F 97.7 F Pulse Rate 60 61 66 Respiratory Rate 18 18 20 Blood Pressure 119/61 155/65 H 128/58 L Pulse Oximetry 97 98 98 04/06/18 12:00 04/06/18 16:00 Temperature 98.2 F 97.8 F Pulse Rate 64 66 Respiratory Rate 20 20 Blood Pressure 110/83 117/56 L Pulse Oximetry 95 99 Intake & Output 04/05/18 04/06/18 04/06/18 18:59 06:59 18:59 Intake Total 480 / 480 Output Total 0 / 0 Balance 480 / 480 Weight 152.5 kg Intake: Oral 480 / 480 Output: Stool 0 / 0 Other: # Voids 6 Date of Last Bowel Movement 04/05/18 GENERAL: Obese Wm NAD SKIN: Warm and dry. HEAD: Normocephalic. EYES: No scleral icterus. No injection or drainage. NECK: Supple, trachea midline. No JVD or lymphadenopathy. CARDIOVASCULAR: Regular rate and rhythm without murmurs, gallops, or rubs. RESPIRATORY: Breath sounds equal bilaterally. No accessory muscle use. GASTROINTESTINAL: Abdomen soft, non-tender, nondistended. MUSCULOSKELETAL: No cyanosis, or edema. BACK: Nontender without obvious deformity. No CVA tenderness. Narrative: Morbidly obese male, NAD, very interactive , in good spirts Skin: stasis changes in lower extremities. no dryness CARDIOVASCULAR: Normal rate and regular rhythm without murmurs; normal perfusion RESPIRATORY: Decreased breath sounds to auscultation suspected secondary to body habitus. GASTROINTESTINAL: Abdomen obese, soft, non-tender, non-distended. Normal active bowel sounds MUSCULOSKELETAL: right foot swelling - resolved more range of motion,, no pain on dorsiflexion and flexion good pulses NEURO: Alert & Oriented. Grossly normal cranial nerves. Grossly normal peripheral function PSYCH: Appropriate mood and affect Assessment and Plan - Plan IMPRESSION: TANA COPD CHF Morbid obesity Gen Weakness/ deconditioning PLAN: CPAP at Night Supplement 02 Diurease Aerosol nebs Ativan prn anxiety Stable pulm status
[2018-04-06] MEDS: traZODone 50 MG Tablet PO SCH (22:12)
[2018-04-06] MEDS: Zolpidem Tartrate 5 MG Tablet PO PRN (22:14)
[2018-04-06] MEDS: Melatonin 5 MG Tablet PO PRN (22:15)
[2018-04-06] MEDS: Sod Phosphate/Sod Biphosphate (Adult) Enema 133 ML Bottle RECTAL PRN (22:30)
[2018-04-07] MEDS: Nystatin 100,000 UNITS/GM Powder 15 GM Bottle TOPICAL SCH ×3 (00:43→13:57)
[2018-04-07] MEDS: Polyethylene Glycol 3350 17 GM Packet PO SCH (09:47)
[2018-04-07] MEDS: Senna/Docusate Sodium 8.6/50 MG Tablet PO SCH ×2 (09:47)
[2018-04-07] MEDS: Psyllium Husk SF 3.4 GM in 5.8 GM Packet PO SCH (09:47)
[2018-04-07] MEDS: Gabapentin 100 MG Capsule PO SCH ×3 (09:51→17:45)
[2018-04-07] MEDS: Allopurinol 100 MG Tablet PO SCH (09:51)
[2018-04-07] MEDS: Carvedilol 12.5 MG Tablet PO SCH ×2 (09:51→21:01)
[2018-04-07] MEDS: Famotidine 20 MG Tablet PO SCH ×2 (09:52→21:01)
[2018-04-07] MEDS: Aspirin 325 MG Tablet PO SCH (09:52)
[2018-04-07] MEDS: guaiFENesin 600 MG ER Tablet PO SCH ×2 (09:52→21:01)
[2018-04-07] MEDS: Amiodarone 200 MG Tablet PO SCH ×2 (09:52→21:01)
[2018-04-07] MEDS: Furosemide 40 MG Tablet PO SCH ×2 (09:52→21:01)
[2018-04-07] MEDS: LORazepam 1 MG Tablet PO PRN ×2 (09:52→17:45)
[2018-04-07] MEDS: Insulin Detemir Inj 1,000 UNIT/10 ML Vial SQ SCH ×2 (09:54→21:03)
[2018-04-07] MEDS: Lactic Acid (Ammonium Lactate) 12% Lotion 225 GM Bottle TOPICAL SCH ×2 (09:56→21:02)
[2018-04-07] MEDS: Sodium Chloride 0.65% Nasal Drops/Spray 30 ML Bottle EACH NARE SCH ×2 (09:56→21:02)
[2018-04-07] MEDS: Calamine/Pramoxine Lotion 180 ML Bottle TOPICAL SCH ×2 (09:57→21:02)
[2018-04-07] MEDS: Insulin NovoLOG Aspart Correctional Sugar Inj SQ SCH ×4 (09:57→21:05)
--- NOTE | 2018-04-07 10:52 | P.PN ---
Subjective Interval history: no complains good po Physical Exam Vital signs: Vital Signs 04/06/18 12:00 04/06/18 16:00 04/06/18 19:32 Temperature 98.2 F 97.8 F Pulse Rate 64 66 60 Respiratory Rate 20 20 20 Blood Pressure 110/83 117/56 L Pulse Oximetry 95 99 99 04/06/18 20:00 04/07/18 00:00 04/07/18 04:00 Temperature 98.5 F 98.2 F 98.8 F Pulse Rate 62 78 62 Respiratory Rate 20 20 20 Blood Pressure 132/61 98/52 L 111/64 Pulse Oximetry 98 98 94 L 04/07/18 05:22 04/07/18 05:27 04/07/18 08:00 Temperature 97.9 F Pulse Rate 61 63 Respiratory Rate 14 20 Blood Pressure 119/58 L Pulse Oximetry 98 95 04/07/18 08:09 Temperature Pulse Rate 68 Respiratory Rate 14 Blood Pressure Pulse Oximetry 98 Intake & Output 04/06/18 04/07/18 04/07/18 18:59 06:59 18:59 Intake Total 720 / 720 1200 / 1200 Balance 720 / 720 1200 / 1200 Weight 106 kg Intake: Oral 720 / 720 1200 / 1200 Other: # Voids 2 6 # Bowel Movements 0 Narrative: Morbidly obese male, NAD, very interactive , in good spirts Skin: stasis changes in lower extremities. no dryness CARDIOVASCULAR: Normal rate and regular rhythm without murmurs; normal perfusion RESPIRATORY: Decreased breath sounds to auscultation suspected secondary to body habitus. GASTROINTESTINAL: Abdomen obese, soft, non-tender, non-distended. Normal active bowel sounds MUSCULOSKELETAL: right foot swelling - resolved no pain on dorsiflexion and flexion good pulses NEURO: Alert & Oriented. Grossly normal cranial nerves. Grossly normal peripheral function PSYCH: Appropriate mood and affect Results - Labs CBC & Chem 7: 03/27/18 08:46 03/27/18 08:46 Laboratory Results - last 24 hr 04/06/18 04/06/18 04/06/18 12:04 16:15 20:23 POC Glucose 168 H 166 H 152 H 04/07/18 09:51 POC Glucose 122 H Assessment and Plan - Assessment (1) Respiratory failure with hypoxia and hypercapnia Code(s): J96.91 - Respiratory failure, unspecified with hypoxia; J96.92 - Respiratory failure, unspecified with hypercapnia Status: Acute (2) Acute kidney injury superimposed on CKD Code(s): N17.9 - Acute kidney failure, unspecified; N18.9 - Chronic kidney disease, unspecified Status: Acute (3) Acute metabolic encephalopathy Code(s): G93.41 - Metabolic encephalopathy Status: Resolved (4) Altered mental status Code(s): R41.82 - Altered mental status, unspecified Status: Resolved (5) Obesity Code(s): E66.9 - Obesity, unspecified Status: Chronic - Plan 57-year-old male with: Acute on chronic hypercapnic respiratory insufficiency, on home oxygen. PMH COPD , Obstructive sleep apnea Status post treatment of MRSA pneumonia -Pulmonology following -CPAP as needed, DuoNebs CHF, not in exacerbation, CAD s/p CABG. echo from September showed EF 55-60% On ASA, Amiodarone 200mg BID, Coreg 12.5mg BID, Clonidine 0.1mg Q8, Plavix 75mg daily -Continue Lasix 40 mg twice daily Hypertension Impression: Stable BP -Continue carvedilol, clonidine Diabetes -Supplemental sliding scale -Due to stable blood glucose levels during hospitalization and desire for change , will change from diabetic to cardiac diet -Levemir 10 units twice daily- good readings - change to regular diet- as patient requested - monitor sugars Right foot pain/swelling - Resolved - xrays of the right foot - negative- - cosnider pOdiatry consult if recurrs - Percocet to q 4 prn Scrotal pain- improved Per Dr. Woodruff likely from anasarca. Ultrasound noted. Continue NSAIDs, warm compress Hypotestosteronism Impression: 02/23 total testosterone was 13, free 0.14; s/p 100mg injection. Repeat total testosterone 451/free testosterone 14.4 03/27 Left upper and lower extremity weakness- improved Impression: Head CT on 02/25 shows no acute changes. CT of the neck shows C6-[address] of lumbar spine shows L3-4 herniation with L3 nerve root impingement Per NS, the disc herniation is nonsurgical. S/P course steroids Morbid obesity/debility: -PT daily to mobilize the patient more. Discussed about obtaining a regular mattress to help him mobilize more. -Slowly improving Insomnia -Continue Trazodone 100mg HS -Continue PRN Zolpidem -Continue HS Melatonin DVT prophylaxis: Lovenox Discharge Planning: Pending SNF placement. Case management following- (1) Respiratory failure with hypoxia and hypercapnia Qualifiers: Chronicity: chronic Qualified Code(s): J96.11 - Chronic respiratory failure with hypoxia; J96.12 - Chronic respiratory failure with hypercapnia (1) Respiratory failure with hypoxia and hypercapnia Qualifiers: Chronicity: chronic Qualified Code(s): J96.11 - Chronic respiratory failure with hypoxia; J96.12 - Chronic respiratory failure with hypercapnia
--- NOTE | 2018-04-07 16:22 | P.PNPL ---
Subjective Interval history: 57 YO Obese male with TANA Uses CPAP On Nasal cannula No new complaint Brother TA bs Physical Exam Vital signs: Vital Signs 04/06/18 19:32 04/06/18 20:00 04/07/18 00:00 Temperature 98.5 F 98.2 F Pulse Rate 60 62 78 Respiratory Rate 20 20 20 Blood Pressure 132/61 98/52 L Pulse Oximetry 99 98 98 04/07/18 04:00 04/07/18 05:22 04/07/18 05:27 Temperature 98.8 F Pulse Rate 62 61 Respiratory Rate 20 14 Blood Pressure 111/64 Pulse Oximetry 94 L 98 04/07/18 08:00 04/07/18 08:09 Temperature 97.9 F Pulse Rate 63 68 Respiratory Rate 20 14 Blood Pressure 119/58 L Pulse Oximetry 95 98 Intake & Output 04/06/18 04/07/18 04/07/18 18:59 06:59 18:59 Intake Total 720 / 720 1200 / 1200 Balance 720 / 720 1200 / 1200 Weight 106 kg Intake: Oral 720 / 720 1200 / 1200 Other: # Voids 2 6 # Bowel Movements 0 GENERAL: Obese WM,NAD SKIN: Warm and dry. HEAD: Normocephalic. EYES: No scleral icterus. No injection or drainage. NECK: Supple, trachea midline. No JVD or lymphadenopathy. CARDIOVASCULAR: Regular rate and rhythm without murmurs, gallops, or rubs. RESPIRATORY: Breath sounds equal bilaterally. No accessory muscle use. GASTROINTESTINAL: Abdomen soft, non-tender, nondistended. MUSCULOSKELETAL: No cyanosis, or edema. BACK: Nontender without obvious deformity. No CVA tenderness. Assessment and Plan - Plan IMPRESSION: TANA COPD CHF Morbid obesity Gen Weakness/ deconditioning PLAN: CPAP at Night Supplement 02 Diurease Aerosol nebs Ativan prn anxiety Stable pulm status DC plans underway
[2018-04-07] MEDS: Enoxaparin Inj 40 MG/0.4 ML Syringe SQ SCH (17:45)
[2018-04-07] MEDS: Melatonin 5 MG Tablet PO PRN (21:00)
[2018-04-07] MEDS: traZODone 50 MG Tablet PO SCH (21:01)
[2018-04-08] MEDS: Zolpidem Tartrate 5 MG Tablet PO PRN (00:09)
[2018-04-08] MEDS: Psyllium Husk SF 3.4 GM in 5.8 GM Packet PO SCH ×3 (05:13→21:14)
[2018-04-08] MEDS: Senna/Docusate Sodium 8.6/50 MG Tablet PO SCH ×5 (05:14→21:15)
[2018-04-08] MEDS: Nystatin 100,000 UNITS/GM Powder 15 GM Bottle TOPICAL SCH ×4 (05:14→21:15)
[2018-04-08] MEDS: Insulin NovoLOG Aspart Correctional Sugar Inj SQ SCH ×3 (09:05→17:28)
[2018-04-08] MEDS: Aspirin 325 MG Tablet PO SCH (09:05)
[2018-04-08] MEDS: Carvedilol 12.5 MG Tablet PO SCH ×2 (09:05→21:13)
[2018-04-08] MEDS: Sodium Chloride 0.65% Nasal Drops/Spray 30 ML Bottle EACH NARE SCH ×2 (09:05→21:16)
[2018-04-08] MEDS: Famotidine 20 MG Tablet PO SCH ×2 (09:05→21:13)
[2018-04-08] MEDS: Insulin Detemir Inj 1,000 UNIT/10 ML Vial SQ SCH (09:06)
[2018-04-08] MEDS: Furosemide 40 MG Tablet PO SCH ×2 (09:06→21:14)
[2018-04-08] MEDS: Amiodarone 200 MG Tablet PO SCH ×2 (09:06→21:13)
[2018-04-08] MEDS: Allopurinol 100 MG Tablet PO SCH (09:06)
[2018-04-08] MEDS: Gabapentin 100 MG Capsule PO SCH ×3 (09:06→17:28)
[2018-04-08] MEDS: guaiFENesin 600 MG ER Tablet PO SCH ×2 (09:06→21:14)
[2018-04-08] MEDS: Polyethylene Glycol 3350 17 GM Packet PO SCH (09:08)
[2018-04-08] MEDS: Lactic Acid (Ammonium Lactate) 12% Lotion 225 GM Bottle TOPICAL SCH ×2 (09:09→21:16)
[2018-04-08] MEDS: Calamine/Pramoxine Lotion 180 ML Bottle TOPICAL SCH (09:10)
--- NOTE | 2018-04-08 12:17 | P.PN ---
Subjective Interval history: no complains good po 100% no nausea or vomiting Physical Exam Vital signs: Vital Signs 04/07/18 16:00 04/07/18 20:00 04/07/18 20:29 Temperature 98.2 F 98.3 F Pulse Rate 64 63 70 Respiratory Rate 20 20 16 Blood Pressure 130/60 105/57 L Pulse Oximetry 97 98 97 04/08/18 00:00 04/08/18 00:47 04/08/18 00:53 Temperature 98.3 F Pulse Rate 64 74 Respiratory Rate 20 13 Blood Pressure 110/60 Pulse Oximetry 97 96 04/08/18 04:00 04/08/18 08:06 Temperature 98.2 F Pulse Rate 64 60 Respiratory Rate 18 14 Blood Pressure 128/68 Pulse Oximetry 100 98 Intake & Output 04/07/18 04/08/18 04/08/18 18:59 06:59 18:59 Intake Total 360 / 360 720 / 720 Balance 360 / 360 720 / 720 Weight 152.5 kg Intake: Oral 360 / 360 720 / 720 Other: # Voids 1 4 # Incontinent Bowel Movements 2 1 Narrative: Morbidly obese male, NAD, very interactive , in good spirts Skin: stasis changes in lower extremities. skim- much more moisturized CARDIOVASCULAR: Normal rate and regular rhythm without murmurs; normal perfusion RESPIRATORY: Decreased breath sounds to auscultation suspected secondary to body habitus. GASTROINTESTINAL: Abdomen obese, soft, non-tender, non-distended. Normal active bowel sounds MUSCULOSKELETAL: right foot swelling - resolved no pain on dorsiflexion and flexion good pulses NEURO: Alert & Oriented. Grossly normal cranial nerves. Grossly normal peripheral function Results - Labs CBC & Chem 7: 03/27/18 08:46 03/27/18 08:46 Laboratory Results - last 24 hr 04/07/18 04/07/18 04/07/18 13:55 17:49 20:24 POC Glucose 150 H 167 H 185 H 04/08/18 09:04 POC Glucose 128 H Assessment and Plan - Assessment (1) Respiratory failure with hypoxia and hypercapnia Code(s): J96.91 - Respiratory failure, unspecified with hypoxia; J96.92 - Respiratory failure, unspecified with hypercapnia Status: Acute (2) Acute kidney injury superimposed on CKD Code(s): N17.9 - Acute kidney failure, unspecified; N18.9 - Chronic kidney disease, unspecified Status: Acute (3) Acute metabolic encephalopathy Code(s): G93.41 - Metabolic encephalopathy Status: Resolved (4) Altered mental status Code(s): R41.82 - Altered mental status, unspecified Status: Resolved (5) Obesity Code(s): E66.9 - Obesity, unspecified Status: Chronic - Plan 57-year-old male with: Acute on chronic hypercapnic respiratory insufficiency, on home oxygen. PMH COPD , Obstructive sleep apnea Status post treatment of MRSA pneumonia -Pulmonology following -CPAP as needed, DuoNebs CHF, not in exacerbation, CAD s/p CABG. echo from September showed EF 55-60% On ASA, Amiodarone 200mg BID, Coreg 12.5mg BID, Clonidine 0.1mg Q8, Plavix 75mg daily -Continue Lasix 40 mg twice daily Hypertension Impression: Stable BP -Continue carvedilol, clonidine Diabetes -Supplemental sliding scale -Due to stable blood glucose levels during hospitalization and desire for change , will change from diabetic to cardiac diet -Levemir 10 units twice daily- good readings - change to regular diet- as patient requested - monitor sugars Right foot pain/swelling - Resolved - xrays of the right foot - negative- - cosnider pOdiatry consult if recurrs - Percocet to q 4 prn Scrotal pain- improved Per Dr. Woodruff likely from anasarca. Ultrasound noted. Continue NSAIDs, warm compress Hypotestosteronism Impression: 02/23 total testosterone was 13, free 0.14; s/p 100mg injection. Repeat total testosterone 451/free testosterone 14.4 03/27 Left upper and lower extremity weakness- improved Impression: Head CT on 02/25 shows no acute changes. CT of the neck shows C6-[address] of lumbar spine shows L3-4 herniation with L3 nerve root impingement Per NS, the disc herniation is nonsurgical. S/P course steroids Morbid obesity/debility: -PT daily to mobilize the patient more. Discussed about obtaining a regular mattress to help him mobilize more. -Slowly improving Insomnia -Continue Trazodone 100mg HS -Continue PRN Zolpidem -Continue HS Melatonin DVT prophylaxis: Lovenox Discharge Planning: Pending SNF placement. Case management following- (1) Respiratory failure with hypoxia and hypercapnia Qualifiers: Chronicity: chronic Qualified Code(s): J96.11 - Chronic respiratory failure with hypoxia; J96.12 - Chronic respiratory failure with hypercapnia (1) Respiratory failure with hypoxia and hypercapnia Qualifiers: Chronicity: chronic Qualified Code(s): J96.11 - Chronic respiratory failure with hypoxia; J96.12 - Chronic respiratory failure with hypercapnia
[2018-04-08] MEDS: LORazepam 1 MG Tablet PO PRN ×2 (13:07→19:15)
[2018-04-08] MEDS: Enoxaparin Inj 40 MG/0.4 ML Syringe SQ SCH (17:29)
--- NOTE | 2018-04-08 18:42 | P.PNPL ---
Subjective Interval history: 57 YO Obese male with TANA Uses CPAP On Nasal cannula Brother at Both sleeping, no new complaint reported Physical Exam Vital signs: Vital Signs 04/07/18 20:00 04/07/18 20:29 04/08/18 00:00 Temperature 98.3 F 98.3 F Pulse Rate 63 70 64 Respiratory Rate 20 16 20 Blood Pressure 105/57 L 110/60 Pulse Oximetry 98 97 97 04/08/18 00:47 04/08/18 00:53 04/08/18 04:00 Temperature 98.2 F Pulse Rate 74 64 Respiratory Rate 13 18 Blood Pressure 128/68 Pulse Oximetry 96 100 04/08/18 08:00 04/08/18 08:06 Temperature 98.3 F Pulse Rate 63 60 Respiratory Rate 20 14 Blood Pressure 107/53 L Pulse Oximetry 95 98 Intake & Output 04/07/18 04/08/18 04/08/18 18:59 06:59 18:59 Intake Total 360 / 360 720 / 720 Balance 360 / 360 720 / 720 Weight 152.5 kg Intake: Oral 360 / 360 720 / 720 Other: # Voids 1 4 # Incontinent Bowel Movements 2 1 GENERAL: Morbidly obese male, mild sob SKIN: Warm and dry. HEAD: Normocephalic. EYES: No scleral icterus. No injection or drainage. NECK: Supple, trachea midline. No JVD or lymphadenopathy. CARDIOVASCULAR: Regular rate and rhythm without murmurs, gallops, or rubs. RESPIRATORY: Breath sounds equal bilaterally. No accessory muscle use. GASTROINTESTINAL: Abdomen soft, non-tender, nondistended. MUSCULOSKELETAL: No cyanosis, or edema. BACK: Nontender without obvious deformity. No CVA tenderness. Narrative: Morbidly obese male, NAD, very interactive , in good spirts Skin: stasis changes in lower extremities. skim- much more moisturized CARDIOVASCULAR: Normal rate and regular rhythm without murmurs; normal perfusion RESPIRATORY: Decreased breath sounds to auscultation suspected secondary to body habitus. GASTROINTESTINAL: Abdomen obese, soft, non-tender, non-distended. Normal active bowel sounds MUSCULOSKELETAL: right foot swelling - resolved no pain on dorsiflexion and flexion good pulses NEURO: Alert & Oriented. Grossly normal cranial nerves. Grossly normal peripheral function Assessment and Plan - Plan IMPRESSION: TANA COPD CHF Morbid obesity Gen Weakness/ deconditioning PLAN: CPAP at Night Supplement 02 Diurease Aerosol nebs Ativan prn anxiety Stable pulm status
[2018-04-08] MEDS: traZODone 50 MG Tablet PO SCH (21:13)
[2018-04-08] MEDS: Melatonin 5 MG Tablet PO PRN (21:14)
[2018-04-09] MEDS: LORazepam 1 MG Tablet PO PRN ×4 (01:42→23:01)
[2018-04-09] MEDS: Senna/Docusate Sodium 8.6/50 MG Tablet PO SCH ×5 (01:50→23:06)
[2018-04-09] MEDS: Insulin Detemir Inj 1,000 UNIT/10 ML Vial SQ SCH ×3 (01:51→23:07)
[2018-04-09] MEDS: Insulin NovoLOG Aspart Correctional Sugar Inj SQ SCH ×5 (01:51→23:07)
[2018-04-09] MEDS: Calamine/Pramoxine Lotion 180 ML Bottle TOPICAL SCH ×3 (01:52→23:03)
[2018-04-09] MEDS: Aspirin 325 MG Tablet PO SCH (09:59)
[2018-04-09] MEDS: Amiodarone 200 MG Tablet PO SCH ×2 (09:59→23:02)
[2018-04-09] MEDS: Famotidine 20 MG Tablet PO SCH ×2 (09:59→23:04)
[2018-04-09] MEDS: guaiFENesin 600 MG ER Tablet PO SCH ×2 (09:59→23:00)
[2018-04-09] MEDS: Allopurinol 100 MG Tablet PO SCH (10:00)
[2018-04-09] MEDS: Gabapentin 100 MG Capsule PO SCH ×3 (10:00→18:18)
[2018-04-09] MEDS: Furosemide 40 MG Tablet PO SCH ×2 (10:00→23:02)
[2018-04-09] MEDS: Psyllium Husk SF 3.4 GM in 5.8 GM Packet PO SCH ×2 (10:00→23:04)
[2018-04-09] MEDS: Carvedilol 12.5 MG Tablet PO SCH ×2 (10:00→23:00)
[2018-04-09] MEDS: Nystatin 100,000 UNITS/GM Powder 15 GM Bottle TOPICAL SCH ×3 (10:03→23:06)
[2018-04-09] MEDS: Sodium Chloride 0.65% Nasal Drops/Spray 30 ML Bottle EACH NARE SCH ×2 (10:03→23:02)
[2018-04-09] MEDS: Lactic Acid (Ammonium Lactate) 12% Lotion 225 GM Bottle TOPICAL SCH ×2 (10:03→23:04)
[2018-04-09] MEDS: Polyethylene Glycol 3350 17 GM Packet PO SCH (10:04)
[2018-04-09] MEDS: Sod Phosphate/Sod Biphosphate (Adult) Enema 133 ML Bottle RECTAL PRN (12:09)
--- NOTE | 2018-04-09 12:23 | P.PNIM ---
Subjective Interval history: 04-09 PATIENT IS AGAIN REQUESTING AN [facility] DW RN AND PT AND CM AWAIT PLACEMENT Physical Exam Vital signs: Vital Signs 04/08/18 16:00 04/08/18 20:21 04/08/18 22:45 Temperature 97.8 F 98.2 F Pulse Rate 66 60 62 Respiratory Rate 20 18 20 Blood Pressure 171/76 H 108/54 L Pulse Oximetry 93 L 97 98 04/09/18 00:00 04/09/18 00:59 04/09/18 04:00 Temperature 98.6 F 98.5 F Pulse Rate 59 L 61 Respiratory Rate 20 20 Blood Pressure 107/53 L 112/66 Pulse Oximetry 98 95 99 04/09/18 04:46 04/09/18 08:00 04/09/18 08:04 Temperature 98.7 F Pulse Rate 110 H 60 62 Respiratory Rate 20 20 17 Blood Pressure 114/54 L Pulse Oximetry 100 98 Intake & Output 04/08/18 04/09/18 04/09/18 18:59 06:59 18:59 Intake Total 600 / 600 Balance 600 / 600 Weight 152.7 kg Intake: Oral 600 / 600 Other: # Voids 3 Date of Last Bowel Movement 04/08/18 # Bowel Movements 1 Narrative: Morbidly obese male, NAD, very interactive , in good spirts Skin: stasis changes in lower extremities. skin- much more moisturized CARDIOVASCULAR: Normal rate and regular rhythm without murmurs; normal perfusion RESPIRATORY: Decreased breath sounds to auscultation suspected secondary to body habitus. GASTROINTESTINAL: Abdomen obese, soft, non-tender, non-distended. Normal active bowel sounds MUSCULOSKELETAL: right foot swelling - resolved no pain on dorsiflexion and flexion good pulses NEURO: Alert & Oriented. Grossly normal cranial nerves. Grossly normal peripheral function insight and judgement are limited mood and behaviors are somewhat appropriate Results - Labs CBC & Chem 7: 03/27/18 08:46 03/27/18 08:46 Laboratory Results - last 24 hr 04/08/18 04/08/18 04/08/18 13:39 17:28 21:13 POC Glucose 283 H 155 H 96 04/09/18 04/09/18 07:43 12:10 POC Glucose 116 H 182 H Assessment and Plan - Assessment (1) Respiratory failure with hypoxia and hypercapnia Code(s): J96.91 - Respiratory failure, unspecified with hypoxia; J96.92 - Respiratory failure, unspecified with hypercapnia Status: Acute (2) Acute kidney injury superimposed on CKD Code(s): N17.9 - Acute kidney failure, unspecified; N18.9 - Chronic kidney disease, unspecified Status: Acute (3) Acute metabolic encephalopathy Code(s): G93.41 - Metabolic encephalopathy Status: Resolved (4) Altered mental status Code(s): R41.82 - Altered mental status, unspecified Status: Resolved (5) Obesity Code(s): E66.9 - Obesity, unspecified Status: Chronic - Plan 57-year-old male with: Acute on chronic hypercapnic respiratory insufficiency, on home oxygen. PMH COPD , Obstructive sleep apnea Status post treatment of MRSA pneumonia -Pulmonology following -CPAP as needed, DuoNebs CHF, not in exacerbation, CAD s/p CABG. echo from September showed EF 55-60% On ASA, Amiodarone 200mg BID, Coreg 12.5mg BID, Clonidine 0.1mg Q8, Plavix 75mg daily -Continue Lasix 40 mg twice daily Hypertension Impression: Stable BP -Continue carvedilol, clonidine Diabetes -Supplemental sliding scale -Due to stable blood glucose levels during hospitalization and desire for change , will change from diabetic to cardiac diet -Levemir 10 units twice daily- good readings - change to regular diet- as patient requested - monitor sugars Right foot pain/swelling - Resolved - xrays of the right foot - negative- - consider podiatry consult if recurs - Percocet to q 4 prn Scrotal pain- improved Per Dr. Woodruff likely from anasarca. Ultrasound noted. Continue NSAIDs, warm compress Hypotestosteronism Impression: 02/23 total testosterone was 13, free 0.14; s/p 100mg injection. Repeat total testosterone 451/free testosterone 14.4 03/27 Left upper and lower extremity weakness- improved Impression: Head CT on 02/25 shows no acute changes. CT of the neck shows C6-[address] of lumbar spine shows L3-4 herniation with L3 nerve root impingement Per NS, the disc herniation is nonsurgical. S/P course steroids Morbid obesity/debility: -PT daily to mobilize the patient more. Discussed about obtaining a regular mattress to help him mobilize more. -Slowly improving Insomnia -Continue Trazodone 100mg HS -Continue PRN Zolpidem -Continue HS Melatonin CHRONIC CONSTIPATION WANTS ENEMA AGAIN WILL ORDER DVT prophylaxis: Lovenox Discharge Planning: Pending SNF placement. Case management following- Code Status: FULL CODE Discussed Condition With: RN AND PT AND CM Discharge Planning: AWAIT SAFE PLACEMENT (1) Respiratory failure with hypoxia and hypercapnia Qualifiers: Chronicity: chronic Qualified Code(s): J96.11 - Chronic respiratory failure with hypoxia; J96.12 - Chronic respiratory failure with hypercapnia
[2018-04-09] MEDS ORDERED: Sod Phosphate/Sod Biphosphate (Adult) Enema 133 ML Bottle RECTAL ONE (12:24)
[2018-04-09] MEDS: Enoxaparin Inj 40 MG/0.4 ML Syringe SQ SCH (18:19)
--- NOTE | 2018-04-09 19:56 | P.PNPL ---
Subjective Interval history: 57 YO Obese male with TANA Uses CPAP On Nasal cannula Brother at [facility] Walked with walker with PT help Physical Exam Vital signs: Vital Signs 04/08/18 20:21 04/08/18 22:45 04/09/18 00:00 Temperature 98.2 F 98.6 F Pulse Rate 60 62 59 L Respiratory Rate 18 20 20 Blood Pressure 108/54 L 107/53 L Pulse Oximetry 97 98 98 04/09/18 00:59 04/09/18 04:00 04/09/18 04:46 Temperature 98.5 F Pulse Rate 61 110 H Respiratory Rate 20 20 Blood Pressure 112/66 Pulse Oximetry 95 99 04/09/18 08:00 04/09/18 08:04 04/09/18 16:00 Temperature 98.0 F 98.4 F Pulse Rate 61 62 89 Respiratory Rate 20 17 20 Blood Pressure 117/82 122/58 L Pulse Oximetry 100 98 100 04/09/18 17:54 04/09/18 17:55 04/09/18 19:12 Temperature Pulse Rate 62 64 Respiratory Rate 22 20 Blood Pressure Pulse Oximetry 98 Intake & Output 04/09/18 04/09/18 04/10/18 06:59 18:59 06:59 Intake Total 480 / 480 Balance 480 / 480 Weight 152.7 kg Intake: Oral 480 / 480 Other: # Voids 4 Date of Last Bowel Movement 04/08/18 04/09/18 # Bowel Movements 2 GENERAL: Obese WM, NAD SKIN: Warm and dry. HEAD: Normocephalic. EYES: No scleral icterus. No injection or drainage. NECK: Supple, trachea midline. No JVD or lymphadenopathy. CARDIOVASCULAR: Regular rate and rhythm without murmurs, gallops, or rubs. RESPIRATORY: Breath sounds equal bilaterally. No accessory muscle use. GASTROINTESTINAL: Abdomen soft, non-tender, nondistended. MUSCULOSKELETAL: No cyanosis, or edema. BACK: Nontender without obvious deformity. No CVA tenderness. Narrative: Morbidly obese male, NAD, very interactive , in good spirts Skin: stasis changes in lower extremities. skin- much more moisturized CARDIOVASCULAR: Normal rate and regular rhythm without murmurs; normal perfusion RESPIRATORY: Decreased breath sounds to auscultation suspected secondary to body habitus. GASTROINTESTINAL: Abdomen obese, soft, non-tender, non-distended. Normal active bowel sounds MUSCULOSKELETAL: right foot swelling - resolved no pain on dorsiflexion and flexion good pulses NEURO: Alert & Oriented. Grossly normal cranial nerves. Grossly normal peripheral function insight and judgement are limited mood and behaviors are somewhat appropriate Assessment and Plan - Plan IMPRESSION: TANA COPD CHF Morbid obesity Gen Weakness/ deconditioning PLAN: CPAP at Night Supplement 02 Diurease Aerosol nebs Ativan prn anxiety Physical therapy.
[2018-04-09] MEDS: Zolpidem Tartrate 5 MG Tablet PO PRN (23:01)
[2018-04-09] MEDS: Melatonin 5 MG Tablet PO PRN (23:01)
[2018-04-09] MEDS: traZODone 50 MG Tablet PO SCH (23:03)
[2018-04-10] MEDS: LORazepam 1 MG Tablet PO PRN ×3 (04:59→18:05)
[2018-04-10] MEDS: Nystatin 100,000 UNITS/GM Powder 15 GM Bottle TOPICAL SCH ×3 (05:00→22:22)
[2018-04-10] MEDS: Insulin NovoLOG Aspart Correctional Sugar Inj SQ SCH ×4 (09:09→22:18)
[2018-04-10] MEDS: Famotidine 20 MG Tablet PO SCH ×2 (09:17→22:16)
[2018-04-10] MEDS: guaiFENesin 600 MG ER Tablet PO SCH ×2 (09:17→22:16)
[2018-04-10] MEDS: Allopurinol 100 MG Tablet PO SCH (09:17)
[2018-04-10] MEDS: Senna/Docusate Sodium 8.6/50 MG Tablet PO SCH ×4 (09:17→22:22)
[2018-04-10] MEDS: Aspirin 325 MG Tablet PO SCH (09:17)
[2018-04-10] MEDS: Furosemide 40 MG Tablet PO SCH ×2 (09:18→22:16)
[2018-04-10] MEDS: Insulin Detemir Inj 1,000 UNIT/10 ML Vial SQ SCH ×2 (09:18→22:21)
[2018-04-10] MEDS: Amiodarone 200 MG Tablet PO SCH ×2 (09:18→22:16)
[2018-04-10] MEDS: Carvedilol 12.5 MG Tablet PO SCH ×2 (09:18→22:20)
[2018-04-10] MEDS: Psyllium Husk SF 3.4 GM in 5.8 GM Packet PO SCH ×2 (09:19→22:19)
[2018-04-10] MEDS: Polyethylene Glycol 3350 17 GM Packet PO SCH (09:19)
[2018-04-10] MEDS: Gabapentin 100 MG Capsule PO SCH ×3 (09:20→18:05)
[2018-04-10] MEDS: Sodium Chloride 0.65% Nasal Drops/Spray 30 ML Bottle EACH NARE SCH ×2 (09:21→22:15)
[2018-04-10] MEDS: Calamine/Pramoxine Lotion 180 ML Bottle TOPICAL SCH ×2 (09:21→22:16)
[2018-04-10 10:30] LABS: Albumin 2.3 g/dL (3.4-5.0); Anion Gap 8 meq/L (5-15); Blood Urea Nitrogen 12 mg/dL (7-18); Calcium 9.1 mg/dL (8.5-10.1); Carbon Dioxide 39.5 meq/L (21.0-32.0); Chloride 94 meq/L (98-107); Glomerular Filtration Rate 78 mL/min (>89); Glucose,Random 93 mg/dL (74-106); Magnesium 2.7 mg/dL (1.5-2.5); Sodium 141 meq/L (136-145)
[2018-04-10 10:33] LABS: Alanine Aminotransferase 14 U/L (12-78); Alkaline Phosphatase 51 U/L (45-117); Phosphorus 4.3 mg/dL (2.5-4.9); Total Protein 6.4 g/dL (6.4-8.2)
[2018-04-10 10:39] LABS: Aspartate Aminotransferase 21 U/L (15-37); Potassium 4.2 meq/L (3.5-5.1)
[2018-04-10 11:20] LABS: Baso % (Auto) 0.4 % (0.0-2.0); Eos # (Auto) 0.2 th/mm3 (0.0-0.4); Eos % (Auto) 3.5 % (0.0-4.0); Hematocrit 28.2 % (39.0-51.0); Hemoglobin 8.7 gm/dL (13.0-17.0); Lymph # (Auto) 1.1 th/mm3 (1.0-4.8); Lymph % (Auto) 17.7 % (9.0-44.0); Mean Corpuscular Hemoglobin 26.3 pg (27.0-34.0); Mean Corpuscular Volume 85.1 fL (80.0-100.0); Mean Platelet Volume 8.1 fL (7.0-11.0); Mono # (Auto) 0.6 th/mm3 (0.0-0.9); Mono % (Auto) 9.8 % (0.0-8.0); Neut # (Auto) 4.3 th/mm3 (1.8-7.7); Neut % (Auto) 68.6 % (16.0-70.0); Platelet Count 247 th/mm3 (150-450); Red Blood Count 3.31 mil/mm3 (4.50-5.90); Red Cell Distribution Width 16.5 % (11.6-17.2); White Blood Count 6.3 th/mm3 (4.0-11.0)
[2018-04-10 11:35] LABS: Mean Corpuscular HGB Conc 30.9 % (32.0-36.0)
[2018-04-10] MEDS: Lactic Acid (Ammonium Lactate) 12% Lotion 225 GM Bottle TOPICAL SCH ×2 (11:52→22:21)
--- NOTE | 2018-04-10 12:34 | P.PNIM ---
Subjective Interval history: 04-09 PATIENT IS AGAIN REQUESTING AN [facility] DW RN AND PT AND CM AWAIT PLACEMENT 04-10 STATES WANTS [facility] DAILY DOES NOT MOVE MUCH DOES NOT GET OUT OF BED DAILY UNLESS FORCED DW RN AND PT AND CM NEEDS PLACEMENT Physical Exam Vital signs: Vital Signs 04/09/18 16:00 04/09/18 17:54 04/09/18 17:55 Temperature 98.4 F Pulse Rate 89 62 Respiratory Rate 20 22 Blood Pressure 122/58 L Pulse Oximetry 100 98 04/09/18 19:12 04/09/18 20:00 04/09/18 22:48 Temperature 98 F Pulse Rate 64 56 L 56 L Respiratory Rate 20 22 22 Blood Pressure 106/68 Pulse Oximetry 95 04/10/18 04:00 04/10/18 05:11 04/10/18 08:00 Temperature 98.4 F 98.1 F Pulse Rate 64 68 64 Respiratory Rate 18 18 24 Blood Pressure 129/70 126/58 L Pulse Oximetry 98 95 Intake & Output 04/09/18 04/10/18 04/10/18 18:59 06:59 18:59 Intake Total 480 / 480 Balance 480 / 480 Intake: Oral 480 / 480 Other: # Voids 4 Date of Last Bowel Movement 04/09/18 # Bowel Movements 2 Narrative: Morbidly obese male, NAD, very interactive , in good spirts Skin: stasis changes in lower extremities. skin- much more moisturized CARDIOVASCULAR: Normal rate and regular rhythm without murmurs; normal perfusion S1, S2 NO S3 OR S4 RESPIRATORY: Decreased breath sounds to auscultation suspected secondary to body habitus. GASTROINTESTINAL: Abdomen obese, soft, non-tender, non-distended. Normal active bowel sounds MORBIDLY OBESE MUSCULOSKELETAL: right foot swelling - resolved no pain on dorsiflexion and flexion good pulses NEURO: Alert & Oriented. Grossly normal cranial nerves. Grossly normal peripheral function insight and judgement are limited mood and behaviors are somewhat appropriate Results - Labs CBC & Chem 7: 04/10/18 10:25 04/10/18 08:45 Laboratory Results - last 24 hr 04/09/18 04/09/18 04/09/18 12:47 17:24 20:14 WBC RBC Hgb Hct MCV MCH MCHC RDW Plt Count MPV Neut % (Auto) Lymph % (Auto) [place] % (Auto) Eos % (Auto) Baso % (Auto) Neut # (Auto) Lymph # (Auto) [place] # (Auto) Eos # (Auto) Baso # (Auto) WBC Differential Differential Comment Sodium Potassium Chloride Carbon Dioxide Anion Gap BUN Creatinine Estimated GFR POC Glucose 160 H 186 H 162 H Random Glucose Calcium Phosphorus Magnesium Total Bilirubin AST ALT Alkaline Phosphatase Total Protein Albumin 04/10/18 04/10/18 04/10/18 07:31 08:45 10:25 WBC 6.3 RBC 3.31 L Hgb 8.7 L Hct 28.2 L MCV 85.1 MCH 26.3 L MCHC 30.9 L RDW 16.5 Plt Count 247 MPV 8.1 Neut % (Auto) 68.6 Lymph % (Auto) 17.7 [place] % (Auto) 9.8 H Eos % (Auto) 3.5 Baso % (Auto) 0.4 Neut # (Auto) 4.3 Lymph # (Auto) 1.1 [place] # (Auto) 0.6 Eos # (Auto) 0.2 Baso # (Auto) 0.0 WBC Differential . Differential Comment Auto diff final Sodium 141 Potassium 4.2 Chloride 94 L Carbon Dioxide 39.5 H Anion Gap 8 BUN 12 Creatinine 1.00 Estimated GFR 78 L POC Glucose 116 H Random Glucose 93 Calcium 9.1 Phosphorus 4.3 Magnesium 2.7 H Total Bilirubin 0.3 AST 21 ALT 14 Alkaline Phosphatase 51 Total Protein 6.4 Albumin 2.3 L 04/10/18 11:52 WBC RBC Hgb Hct MCV MCH MCHC RDW Plt Count MPV Neut % (Auto) Lymph % (Auto) [place] % (Auto) Eos % (Auto) Baso % (Auto) Neut # (Auto) Lymph # (Auto) [place] # (Auto) Eos # (Auto) Baso # (Auto) WBC Differential Differential Comment Sodium Potassium Chloride Carbon Dioxide Anion Gap BUN Creatinine Estimated GFR POC Glucose 182 H Random Glucose Calcium Phosphorus Magnesium Total Bilirubin AST ALT Alkaline Phosphatase Total Protein Albumin Assessment and Plan - Assessment (1) Respiratory failure with hypoxia and hypercapnia Code(s): J96.91 - Respiratory failure, unspecified with hypoxia; J96.92 - Respiratory failure, unspecified with hypercapnia Status: Acute (2) Acute kidney injury superimposed on CKD Code(s): N17.9 - Acute kidney failure, unspecified; N18.9 - Chronic kidney disease, unspecified Status: Acute (3) Acute metabolic encephalopathy Code(s): G93.41 - Metabolic encephalopathy Status: Resolved (4) Altered mental status Code(s): R41.82 - Altered mental status, unspecified Status: Resolved (5) Obesity Code(s): E66.9 - Obesity, unspecified Status: Chronic - Plan 57-year-old male with: Acute on chronic hypercapnic respiratory insufficiency, on home oxygen. PMH COPD , Obstructive sleep apnea Status post treatment of MRSA pneumonia -Pulmonology following -CPAP as needed, DuoNebs CHF, not in exacerbation, CAD s/p CABG. echo from September showed EF 55-60% On ASA, Amiodarone 200mg BID, Coreg 12.5mg BID, Clonidine 0.1mg Q8, Plavix 75mg daily -Continue Lasix 40 mg twice daily Hypertension Impression: Stable BP -Continue carvedilol, clonidine Diabetes -Supplemental sliding scale -Due to stable blood glucose levels during hospitalization and desire for change , will change from diabetic to cardiac diet -Levemir 10 units twice daily- good readings - change to regular diet- as patient requested - monitor sugars Right foot pain/swelling - Resolved - xrays of the right foot - negative- - consider podiatry consult if recurs - Percocet to q 4 prn Scrotal pain- improved Per Dr. Woodruff likely from anasarca. Ultrasound noted. Continue NSAIDs, warm compress Hypotestosteronism Impression: 02/23 total testosterone was 13, free 0.14; s/p 100mg injection. Repeat total testosterone 451/free testosterone 14.4 7/ Left upper and lower extremity weakness- improved Impression: Head CT on 02/25 shows no acute changes. CT of the neck shows C6-[address] of lumbar spine shows L3-4 herniation with L3 nerve root impingement Per NS, the disc herniation is nonsurgical. S/P course steroids Morbid obesity/debility: -PT daily to mobilize the patient more. Discussed about obtaining a regular mattress to help him mobilize more. -Slowly improving Insomnia -Continue Trazodone 100mg HS -Continue PRN Zolpidem -Continue HS Melatonin CHRONIC CONSTIPATION WANTS [facility] AGAIN WILL ORDER DVT prophylaxis: Lovenox Discharge Planning: Pending SNF placement. Case management following- Code Status: FULL CODE Discussed Condition With: RN AND PT AND CM AND PULMONARY Discharge Planning: AWAIT SAFE PLACEMENT (1) Respiratory failure with hypoxia and hypercapnia Qualifiers: Chronicity: chronic Qualified Code(s): J96.11 - Chronic respiratory failure with hypoxia; J96.12 - Chronic respiratory failure with hypercapnia
[2018-04-10] MEDS: Enoxaparin Inj 40 MG/0.4 ML Syringe SQ SCH (18:05)
--- NOTE | 2018-04-10 20:33 | P.PNPL ---
Subjective Interval history: 57 YO Obese male with TANA Uses CPAP On Nasal cannula Brother at [facility] DW PT, he was able to stand but did't walk with PT Yesterday Physical Exam Vital signs: Vital Signs 04/09/18 22:48 04/10/18 04:00 04/10/18 05:11 Temperature 98.4 F Pulse Rate 56 L 64 68 Respiratory Rate 22 18 18 Blood Pressure 129/70 Pulse Oximetry 98 04/10/18 08:00 04/10/18 12:00 04/10/18 16:00 Temperature 98.1 F 97.8 F 97.7 F Pulse Rate 64 63 62 Respiratory Rate 24 24 22 Blood Pressure 126/58 L 117/63 118/55 L Pulse Oximetry 95 95 95 04/10/18 17:13 04/10/18 20:05 Temperature Pulse Rate 63 65 Respiratory Rate 24 20 Blood Pressure Pulse Oximetry 95 Intake & Output 04/10/18 04/10/18 04/11/18 06:59 18:59 06:59 Intake Total 480 / 480 Balance 480 / 480 Intake: Oral 480 / 480 Other: # Voids 5 Date of Last Bowel Movement 04/10/18 # Bowel Movements 2 1 GENERAL: Obese Wm,Mild sob SKIN: Warm and dry. HEAD: Normocephalic. EYES: No scleral icterus. No injection or drainage. NECK: Supple, trachea midline. No JVD or lymphadenopathy. CARDIOVASCULAR: Regular rate and rhythm without murmurs, gallops, or rubs. RESPIRATORY: Breath sounds equal bilaterally. No accessory muscle use. GASTROINTESTINAL: Abdomen soft, non-tender, nondistended. MUSCULOSKELETAL: No cyanosis, or edema. BACK: Nontender without obvious deformity. No CVA tenderness. Assessment and Plan - Plan IMPRESSION: ATNA COPD CHF Morbid obesity Gen Weakness/ deconditioning PLAN: CPAP at Night Supplement 02 Diurease Aerosol nebs Ativan prn anxiety Physical therapy. DW Pt at [facility]
[2018-04-10] MEDS: traZODone 50 MG Tablet PO SCH (22:17)
[2018-04-10] MEDS: Melatonin 5 MG Tablet PO PRN (22:20)
[2018-04-10] MEDS: Zolpidem Tartrate 5 MG Tablet PO PRN (22:20)
[2018-04-11] MEDS: LORazepam 1 MG Tablet PO PRN ×4 (01:44→21:09)
[2018-04-11] MEDS: Nystatin 100,000 UNITS/GM Powder 15 GM Bottle TOPICAL SCH ×3 (06:51→23:18)
[2018-04-11] MEDS: Psyllium Husk SF 3.4 GM in 5.8 GM Packet PO SCH ×2 (08:50→20:55)
[2018-04-11] MEDS: Polyethylene Glycol 3350 17 GM Packet PO SCH (08:52)
[2018-04-11] MEDS: Carvedilol 12.5 MG Tablet PO SCH ×2 (08:53→20:53)
[2018-04-11] MEDS: Famotidine 20 MG Tablet PO SCH ×2 (08:53→20:52)
[2018-04-11] MEDS: Furosemide 40 MG Tablet PO SCH ×2 (08:53→20:52)
[2018-04-11] MEDS: Allopurinol 100 MG Tablet PO SCH (08:53)
[2018-04-11] MEDS: Amiodarone 200 MG Tablet PO SCH ×2 (08:53→20:53)
[2018-04-11] MEDS: Gabapentin 100 MG Capsule PO SCH ×3 (08:53→17:12)
[2018-04-11] MEDS: Aspirin 325 MG Tablet PO SCH (08:53)
[2018-04-11] MEDS: guaiFENesin 600 MG ER Tablet PO SCH ×2 (08:53→20:52)
[2018-04-11] MEDS: Senna/Docusate Sodium 8.6/50 MG Tablet PO SCH ×4 (08:54→20:56)
[2018-04-11] MEDS: Insulin Detemir Inj 1,000 UNIT/10 ML Vial SQ SCH ×2 (08:55→20:54)
[2018-04-11] MEDS: Sodium Chloride 0.65% Nasal Drops/Spray 30 ML Bottle EACH NARE SCH ×2 (09:07→23:18)
[2018-04-11] MEDS: Insulin NovoLOG Aspart Correctional Sugar Inj SQ SCH ×4 (09:07→20:54)
[2018-04-11] MEDS: Calamine/Pramoxine Lotion 180 ML Bottle TOPICAL SCH ×2 (09:08→20:11)
[2018-04-11] MEDS: Lactic Acid (Ammonium Lactate) 12% Lotion 225 GM Bottle TOPICAL SCH ×2 (09:08→20:55)
[2018-04-11] MEDS: Acetaminophen 325 MG Tablet PO PRN (12:51)
--- NOTE | 2018-04-11 14:30 | P.PNIM ---
Subjective Interval history: 04-09 PATIENT IS AGAIN REQUESTING AN ENEMA DW RN AND PT AND CM AWAIT PLACEMENT 04-10 STATES WANTS ENEMAS DAILY DOES NOT MOVE MUCH DOES NOT GET OUT OF BED DAILY UNLESS FORCED DW RN AND PT AND CM NEEDS PLACEMENT 04-11 MOVED TO SMALLER BED SEEN IN WHEELCHAIR TODAY DW RN AND PT AND CM NEEDS TRAPEZE FOR HIS BED AWAIT PLACEMENT Physical Exam Vital signs: Vital Signs 04/10/18 16:00 04/10/18 17:13 04/10/18 20:00 Temperature 97.7 F 98.7 F Pulse Rate 62 63 65 Respiratory Rate 22 24 20 Blood Pressure 118/55 L 131/60 Pulse Oximetry 95 95 98 04/10/18 20:05 04/11/18 00:00 04/11/18 04:00 Temperature 97.7 F 98.2 F Pulse Rate 65 62 62 Respiratory Rate 20 20 20 Blood Pressure 120/59 L 108/54 L Pulse Oximetry 99 99 04/11/18 08:00 04/11/18 09:15 04/11/18 12:00 Temperature 98.5 F 98.0 F Pulse Rate 63 61 62 Respiratory Rate 12 18 14 Blood Pressure 123/72 120/56 L Pulse Oximetry 96 98 99 Intake & Output 04/10/18 04/11/18 04/11/18 18:59 06:59 18:59 Intake Total 480 / 480 480 / 480 Balance 480 / 480 480 / 480 Weight 143.1 kg Intake: Oral 480 / 480 480 / 480 Other: # Voids 5 4 Date of Last Bowel Movement 04/10/18 # Bowel Movements 1 # Incontinent Bowel Movements 0 Narrative: Morbidly obese male, NAD, very interactive , in good spirts Skin: stasis changes in lower extremities. skin- much more moisturized CARDIOVASCULAR: Normal rate and regular rhythm without murmurs; normal perfusion S1, S2 NO S3 OR S4 RESPIRATORY: Decreased breath sounds to auscultation suspected secondary to body habitus. GASTROINTESTINAL: Abdomen obese, soft, non-tender, non-distended. Normal active bowel sounds MORBIDLY OBESE MUSCULOSKELETAL: right foot swelling - resolved no pain on dorsiflexion and flexion good pulses NEURO: Alert & Oriented. Grossly normal cranial nerves. Grossly normal peripheral function insight and judgement are limited mood and behaviors are somewhat appropriate Results - Labs CBC & Chem 7: 04/10/18 10:25 04/10/18 08:45 Laboratory Results - last 24 hr 04/10/18 04/10/18 04/11/18 17:20 21:59 08:19 POC Glucose 205 H 118 H 99 04/11/18 12:27 POC Glucose 139 H Assessment and Plan - Assessment (1) Respiratory failure with hypoxia and hypercapnia Code(s): J96.91 - Respiratory failure, unspecified with hypoxia; J96.92 - Respiratory failure, unspecified with hypercapnia Status: Acute (2) Acute kidney injury superimposed on CKD Code(s): N17.9 - Acute kidney failure, unspecified; N18.9 - Chronic kidney disease, unspecified Status: Acute (3) Acute metabolic encephalopathy Code(s): G93.41 - Metabolic encephalopathy Status: Resolved (4) Altered mental status Code(s): R41.82 - Altered mental status, unspecified Status: Resolved (5) Obesity Code(s): E66.9 - Obesity, unspecified Status: Chronic - Plan 57-year-old male with: Acute on chronic hypercapnic respiratory insufficiency, on home oxygen. PMH COPD , Obstructive sleep apnea Status post treatment of MRSA pneumonia -Pulmonology following -CPAP as needed, DuoNebs CHF, not in exacerbation, CAD s/p CABG. echo from September showed EF 55-60% On ASA, Amiodarone 200mg BID, Coreg 12.5mg BID, Clonidine 0.1mg Q8, Plavix 75mg daily -Continue Lasix 40 mg twice daily Hypertension Impression: Stable BP -Continue carvedilol, clonidine Diabetes -Supplemental sliding scale -Due to stable blood glucose levels during hospitalization and desire for change , will change from diabetic to cardiac diet -Levemir 10 units twice daily- good readings - change to regular diet- as patient requested - monitor sugars Right foot pain/swelling - Resolved - xrays of the right foot - negative- - consider podiatry consult if recurs - Percocet to q 4 prn Scrotal pain- improved Per Dr. Woodruff likely from anasarca. Ultrasound noted. Continue NSAIDs, warm compress Hypotestosteronism Impression: 02/23 total testosterone was 13, free 0.14; s/p 100mg injection. Repeat total testosterone 451/free testosterone 14.4 7/ Left upper and lower extremity weakness- improved Impression: Head CT on 02/25 shows no acute changes. CT of the neck shows C6-[address] of lumbar spine shows L3-4 herniation with L3 nerve root impingement Per NS, the disc herniation is nonsurgical. S/P course steroids Morbid obesity/debility: -PT daily to mobilize the patient more. Discussed about obtaining a regular mattress to help him mobilize more. -Slowly improving Insomnia -Continue Trazodone 100mg HS -Continue PRN Zolpidem -Continue HS Melatonin CHRONIC CONSTIPATION WANTS ENEMA AGAIN WILL ORDER DVT prophylaxis: Lovenox Discharge Planning: Pending SNF placement. Case management following- Code Status: FULL CODE Discussed Condition With: RN AND PT AND CM Discharge Planning: AWAIT SAFE PLACEMENT (1) Respiratory failure with hypoxia and hypercapnia Qualifiers: Chronicity: chronic Qualified Code(s): J96.11 - Chronic respiratory failure with hypoxia; J96.12 - Chronic respiratory failure with hypercapnia
[2018-04-11] MEDS: Enoxaparin Inj 40 MG/0.4 ML Syringe SQ SCH (19:09)
[2018-04-11] MEDS: traZODone 50 MG Tablet PO SCH (20:53)
[2018-04-12] MEDS: LORazepam 1 MG Tablet PO PRN ×3 (03:34→18:25)
[2018-04-12] MEDS: Nystatin 100,000 UNITS/GM Powder 15 GM Bottle TOPICAL SCH ×3 (05:33→21:32)
[2018-04-12] MEDS: Insulin NovoLOG Aspart Correctional Sugar Inj SQ SCH ×4 (08:00→21:03)
[2018-04-12] MEDS: Amiodarone 200 MG Tablet PO SCH ×2 (10:06→21:03)
[2018-04-12] MEDS: Aspirin 325 MG Tablet PO SCH (10:06)
[2018-04-12] MEDS: Furosemide 40 MG Tablet PO SCH ×2 (10:06→21:03)
[2018-04-12] MEDS: Allopurinol 100 MG Tablet PO SCH (10:06)
[2018-04-12] MEDS: guaiFENesin 600 MG ER Tablet PO SCH ×2 (10:07→21:31)
[2018-04-12] MEDS: Famotidine 20 MG Tablet PO SCH ×2 (10:07→21:03)
[2018-04-12] MEDS: Carvedilol 12.5 MG Tablet PO SCH ×2 (10:08→21:03)
[2018-04-12] MEDS: Senna/Docusate Sodium 8.6/50 MG Tablet PO SCH ×4 (10:08→21:31)
[2018-04-12] MEDS: Gabapentin 100 MG Capsule PO SCH ×3 (10:09→18:29)
[2018-04-12] MEDS: Sodium Chloride 0.65% Nasal Drops/Spray 30 ML Bottle EACH NARE SCH ×2 (10:09→21:31)
[2018-04-12] MEDS: Calamine/Pramoxine Lotion 180 ML Bottle TOPICAL SCH ×2 (10:09→21:31)
[2018-04-12] MEDS: Polyethylene Glycol 3350 17 GM Packet PO SCH (10:10)
[2018-04-12] MEDS: Insulin Detemir Inj 1,000 UNIT/10 ML Vial SQ SCH ×2 (10:10→21:04)
[2018-04-12] MEDS: Psyllium Husk SF 3.4 GM in 5.8 GM Packet PO SCH ×2 (10:10→21:04)
[2018-04-12] MEDS: Acetaminophen 325 MG Tablet PO PRN (10:16)
[2018-04-12] MEDS: Lactic Acid (Ammonium Lactate) 12% Lotion 225 GM Bottle TOPICAL SCH ×2 (10:23→21:31)
--- NOTE | 2018-04-12 12:02 | P.PNIM ---
Subjective Interval history: 04-09 PATIENT IS AGAIN REQUESTING AN ENEMA DW RN AND PT AND CM AWAIT PLACEMENT 04-10 STATES WANTS ENEMAS DAILY DOES NOT MOVE MUCH DOES NOT GET OUT OF BED DAILY UNLESS FORCED DW RN AND PT AND CM NEEDS PLACEMENT 04-11 MOVED TO SMALLER BED SEEN IN WHEELCHAIR TODAY DW RN AND PT AND CM NEEDS TRAPEZE FOR HIS BED AWAIT PLACEMENT 04-12 SEEN LYING IN HIS BED TODAY DW RN AND PT AND PHYSICAL AND OCCUPATIONAL THERAPY AWAIT PLACEMENT Physical Exam Vital signs: Vital Signs 04/11/18 16:00 04/11/18 19:31 04/11/18 20:00 Temperature 98.0 F 97.8 F Pulse Rate 61 61 62 Respiratory Rate 14 16 20 Blood Pressure 113/59 L 108/56 L Pulse Oximetry 98 98 98 04/12/18 00:00 04/12/18 07:47 04/12/18 08:00 Temperature 97.8 F 98.1 F Pulse Rate 63 67 65 Respiratory Rate 20 14 20 Blood Pressure 115/56 L 109/58 L Pulse Oximetry 99 97 97 Intake & Output 04/11/18 04/12/18 04/12/18 18:59 06:59 18:59 Weight 143.6 kg Other: # Voids 2 Narrative: Morbidly obese male, NAD, very interactive , in good spirts Skin: stasis changes in lower extremities. skin- much more moisturized CARDIOVASCULAR: Normal rate and regular rhythm without murmurs; normal perfusion S1, S2 NO S3 OR S4 RESPIRATORY: Decreased breath sounds to auscultation suspected secondary to body habitus. GASTROINTESTINAL: Abdomen obese, soft, non-tender, non-distended. Normal active bowel sounds MORBIDLY OBESE MUSCULOSKELETAL: right foot swelling - resolved no pain on dorsiflexion and flexion good pulses NEURO: Alert & Oriented. Grossly normal cranial nerves. Grossly normal peripheral function insight and judgement are limited mood and behaviors are somewhat appropriate Results - Labs CBC & Chem 7: 04/10/18 10:25 04/10/18 08:45 Laboratory Results - last 24 hr 04/11/18 04/11/18 04/11/18 12:27 17:09 20:30 POC Glucose 139 H 130 H 171 H 04/12/18 08:20 POC Glucose 109 Assessment and Plan - Assessment (1) Respiratory failure with hypoxia and hypercapnia Code(s): J96.91 - Respiratory failure, unspecified with hypoxia; J96.92 - Respiratory failure, unspecified with hypercapnia Status: Acute (2) Acute kidney injury superimposed on CKD Code(s): N17.9 - Acute kidney failure, unspecified; N18.9 - Chronic kidney disease, unspecified Status: Acute (3) Acute metabolic encephalopathy Code(s): G93.41 - Metabolic encephalopathy Status: Resolved (4) Altered mental status Code(s): R41.82 - Altered mental status, unspecified Status: Resolved (5) Obesity Code(s): E66.9 - Obesity, unspecified Status: Chronic - Plan 57-year-old male with: Acute on chronic hypercapnic respiratory insufficiency, on home oxygen. PMH COPD , Obstructive sleep apnea Status post treatment of MRSA pneumonia -Pulmonology following -CPAP as needed, DuoNebs CHF, not in exacerbation, CAD s/p CABG. echo from September showed EF 55-60% On ASA, Amiodarone 200mg BID, Coreg 12.5mg BID, Clonidine 0.1mg Q8, Plavix 75mg daily -Continue Lasix 40 mg twice daily Hypertension Impression: Stable BP -Continue carvedilol, clonidine Diabetes -Supplemental sliding scale -Due to stable blood glucose levels during hospitalization and desire for change , will change from diabetic to cardiac diet -Levemir 10 units twice daily- good readings - change to regular diet- as patient requested - monitor sugars Right foot pain/swelling - Resolved - xrays of the right foot - negative- - consider podiatry consult if recurs - Percocet to q 4 prn Scrotal pain- improved Per Dr. Woodruff likely from anasarca. Ultrasound noted. Continue NSAIDs, warm compress Hypotestosteronism Impression: 02/23 total testosterone was 13, free 0.14; s/p 100mg injection. Repeat total testosterone 451/free testosterone 14.4 03/27 Left upper and lower extremity weakness- improved Impression: Head CT on 02/25 shows no acute changes. CT of the neck shows C6-[address] of lumbar spine shows L3-4 herniation with L3 nerve root impingement Per NS, the disc herniation is nonsurgical. S/P course steroids Morbid obesity/debility: -PT daily to mobilize the patient more. Discussed about obtaining a regular mattress to help him mobilize more. -Slowly improving Insomnia -Continue Trazodone 100mg HS -Continue PRN Zolpidem -Continue HS Melatonin CHRONIC CONSTIPATION WANTS ENEMA AGAIN WILL ORDER DVT prophylaxis: Lovenox Discharge Planning: Pending SNF placement. Case management following- Code Status: FULL CODE Discussed Condition With: RN AND PT AND CM Discharge Planning: AWAIT SAFE PLACEMENT (1) Respiratory failure with hypoxia and hypercapnia Qualifiers: Chronicity: chronic Qualified Code(s): J96.11 - Chronic respiratory failure with hypoxia; J96.12 - Chronic respiratory failure with hypercapnia
[2018-04-12] MEDS: Enoxaparin Inj 40 MG/0.4 ML Syringe SQ SCH (18:26)
--- NOTE | 2018-04-12 19:19 | P.PNPL ---
Subjective Interval history: 57 YO Obese male with TANA Uses CPAP On Nasal cannula no new complaint Physical Exam Vital signs: Vital Signs 04/11/18 19:31 04/11/18 20:00 04/12/18 00:00 Temperature 97.8 F 97.8 F Pulse Rate 61 62 63 Respiratory Rate 16 20 20 Blood Pressure 108/56 L 115/56 L Pulse Oximetry 98 98 99 04/12/18 07:47 04/12/18 08:00 04/12/18 12:00 Temperature 98.1 F 98.1 F Pulse Rate 67 65 59 L Respiratory Rate 14 20 20 Blood Pressure 109/58 L 97/52 L Pulse Oximetry 97 97 98 Intake & Output 04/12/18 04/12/18 04/13/18 06:59 18:59 06:59 Weight 143.6 kg GENERAL: Obese WM,NAD SKIN: Warm and dry. HEAD: Normocephalic. EYES: No scleral icterus. No injection or drainage. NECK: Supple, trachea midline. No JVD or lymphadenopathy. CARDIOVASCULAR: Regular rate and rhythm without murmurs, gallops, or rubs. RESPIRATORY: Breath sounds equal bilaterally. No accessory muscle use. GASTROINTESTINAL: Abdomen soft, non-tender, nondistended. MUSCULOSKELETAL: No cyanosis, or edema. BACK: Nontender without obvious deformity. No CVA tenderness. Assessment and Plan - Plan IMPRESSION: TANA COPD CHF Morbid obesity Gen Weakness/ deconditioning PLAN: CPAP at Night Supplement 02 Diurease Aerosol nebs Ativan prn anxiety Physical therapy.
[2018-04-12] MEDS: traZODone 50 MG Tablet PO SCH (21:03)
[2018-04-13] MEDS: LORazepam 1 MG Tablet PO PRN ×4 (01:09→21:00)
[2018-04-13] MEDS: Nystatin 100,000 UNITS/GM Powder 15 GM Bottle TOPICAL SCH ×3 (06:52→21:01)
[2018-04-13] MEDS: Allopurinol 100 MG Tablet PO SCH (08:48)
[2018-04-13] MEDS: guaiFENesin 600 MG ER Tablet PO SCH ×2 (08:48→21:00)
[2018-04-13] MEDS: Carvedilol 12.5 MG Tablet PO SCH ×2 (08:48→21:00)
[2018-04-13] MEDS: Furosemide 40 MG Tablet PO SCH ×2 (08:49→21:00)
[2018-04-13] MEDS: Amiodarone 200 MG Tablet PO SCH ×2 (08:49→21:00)
[2018-04-13] MEDS: Aspirin 325 MG Tablet PO SCH (08:49)
[2018-04-13] MEDS: Sodium Chloride 0.65% Nasal Drops/Spray 30 ML Bottle EACH NARE SCH ×2 (08:50→21:00)
[2018-04-13] MEDS: Psyllium Husk SF 3.4 GM in 5.8 GM Packet PO SCH ×2 (08:50→21:03)
[2018-04-13] MEDS: Lactic Acid (Ammonium Lactate) 12% Lotion 225 GM Bottle TOPICAL SCH ×2 (08:50→21:01)
[2018-04-13] MEDS: Calamine/Pramoxine Lotion 180 ML Bottle TOPICAL SCH ×2 (08:50→21:02)
[2018-04-13] MEDS: Insulin NovoLOG Aspart Correctional Sugar Inj SQ SCH ×4 (08:51→21:02)
[2018-04-13] MEDS: Insulin Detemir Inj 1,000 UNIT/10 ML Vial SQ SCH ×2 (08:52→21:03)
[2018-04-13] MEDS: Famotidine 20 MG Tablet PO SCH ×2 (08:52→21:00)
[2018-04-13] MEDS: Gabapentin 100 MG Capsule PO SCH ×3 (08:52→18:34)
[2018-04-13] MEDS: Polyethylene Glycol 3350 17 GM Packet PO SCH (08:52)
[2018-04-13] MEDS: Senna/Docusate Sodium 8.6/50 MG Tablet PO SCH ×4 (08:54→21:05)
--- NOTE | 2018-04-13 11:02 | P.PNIM ---
Subjective Interval history: in no acute distress. clinically the same. no new complaints. Physical Exam Vital signs: Vital Signs 04/12/18 12:00 04/12/18 16:00 04/12/18 20:00 Temperature 98.1 F 98.0 F 98.7 F Pulse Rate 59 L 66 62 Respiratory Rate 20 20 20 Blood Pressure 97/52 L 124/66 122/70 Pulse Oximetry 98 95 100 04/12/18 20:04 04/13/18 00:00 04/13/18 04:00 Temperature 98.1 F 98.0 F Pulse Rate 62 60 Respiratory Rate 20 20 Blood Pressure 118/56 L 102/53 L Pulse Oximetry 98 97 95 04/13/18 07:46 04/13/18 08:00 Temperature 97.9 F Pulse Rate 64 Respiratory Rate 20 Blood Pressure 115/53 L Pulse Oximetry 98 98 Intake & Output 04/12/18 04/13/18 04/13/18 18:59 06:59 18:59 Intake Total 240 / 240 120 / 120 Balance 240 / 240 120 / 120 Weight 145.2 kg Intake: Oral 240 / 240 120 / 120 Other: # Voids 3 # Incontinent Voids 2 Date of Last Bowel Movement 04/11/18 # Bowel Movements 0 0 - Constitutional no acute distress - Routine Respiratory Exam Present: CTA bilaterally - Routine Cardiovascular Exam Present: RRR - Routine Abdominal Exam Present: soft - Routine Extremities Exam Comments: bilateral pedal edema. - Routine Neurological Exam Present: alert, oriented X3 Results - Labs CBC & Chem 7: 04/10/18 10:25 04/10/18 08:45 Laboratory Results - last 24 hr 04/12/18 04/12/18 04/12/18 12:20 17:46 19:55 POC Glucose 145 H 244 H 169 H 04/13/18 07:29 POC Glucose 193 H Assessment and Plan - Assessment (1) Respiratory failure with hypoxia and hypercapnia Code(s): J96.91 - Respiratory failure, unspecified with hypoxia; J96.92 - Respiratory failure, unspecified with hypercapnia Status: Acute (2) Acute kidney injury superimposed on CKD Code(s): N17.9 - Acute kidney failure, unspecified; N18.9 - Chronic kidney disease, unspecified Status: Acute (3) Acute metabolic encephalopathy Code(s): G93.41 - Metabolic encephalopathy Status: Resolved (4) Altered mental status Code(s): R41.82 - Altered mental status, unspecified Status: Resolved (5) Obesity Code(s): E66.9 - Obesity, unspecified Status: Chronic - Plan Acute on chronic hypercapnic respiratory insufficiency, on home oxygen. PMH COPD , Obstructive sleep apnea Status post treatment of MRSA pneumonia -Pulmonology following -CPAP as needed, DuoNebs CHF, not in exacerbation, CAD s/p CABG. echo from September showed EF 55-60% On ASA, Amiodarone 200mg BID, Coreg 12.5mg BID, Clonidine 0.1mg Q8, Plavix 75mg daily -Continue Lasix 40 mg twice daily Hypertension Stable BP -Continue carvedilol, clonidine Diabetes -Supplemental sliding scale -Levemir 10 units twice daily- good readings - change to regular diet- as patient requested - monitor sugars Right foot pain/swelling - Resolved - xrays of the right foot - negative- - consider podiatry consult if recurs - Percocet to q 4 prn Scrotal pain- improved Per Dr. Woodruff likely from anasarca. Ultrasound noted. Continue NSAIDs, warm compress Hypotestosteronism Impression: 02/23 total testosterone was 13, free 0.14; s/p 100mg injection. Repeat total testosterone 451/free testosterone 14.4 03/27 Left upper and lower extremity weakness- improved Impression: Head CT on 02/25 shows no acute changes. CT of the neck shows C6-[address] of lumbar spine shows L3-4 herniation with L3 nerve root impingement Per NS, the disc herniation is nonsurgical. S/P course steroids Morbid obesity/debility: -PT daily to mobilize the patient more. Discussed about obtaining a regular mattress to help him mobilize more. -Slowly improving Insomnia -Continue Trazodone 100mg HS -Continue PRN Zolpidem -Continue HS Melatonin DVT prophylaxis: Lovenox Discharge Planning: awaiting placement. (1) Respiratory failure with hypoxia and hypercapnia Qualifiers: Chronicity: chronic Qualified Code(s): J96.11 - Chronic respiratory failure with hypoxia; J96.12 - Chronic respiratory failure with hypercapnia
--- NOTE | 2018-04-13 11:03 | P.PNPL ---
Subjective Interval history: 57 YO Obese male with TANA Uses CPAP On Nasal cannula no new complaint Working with PT Physical Exam Vital signs: Vital Signs 04/12/18 12:00 04/12/18 16:00 04/12/18 20:00 Temperature 98.1 F 98.0 F 98.7 F Pulse Rate 59 L 66 62 Respiratory Rate 20 20 20 Blood Pressure 97/52 L 124/66 122/70 Pulse Oximetry 98 95 100 04/12/18 20:04 04/13/18 00:00 04/13/18 04:00 Temperature 98.1 F 98.0 F Pulse Rate 62 60 Respiratory Rate 20 20 Blood Pressure 118/56 L 102/53 L Pulse Oximetry 98 97 95 04/13/18 07:46 04/13/18 08:00 Temperature 97.9 F Pulse Rate 64 Respiratory Rate 20 Blood Pressure 115/53 L Pulse Oximetry 98 98 Intake & Output 04/12/18 04/13/18 04/13/18 18:59 06:59 18:59 Intake Total 240 / 240 120 / 120 Balance 240 / 240 120 / 120 Weight 145.2 kg Intake: Oral 240 / 240 120 / 120 Other: # Voids 3 # Incontinent Voids 2 Date of Last Bowel Movement 04/11/18 # Bowel Movements 0 0 GENERAL: Obese Wm,NAD SKIN: Warm and dry. HEAD: Normocephalic. EYES: No scleral icterus. No injection or drainage. NECK: Supple, trachea midline. No JVD or lymphadenopathy. CARDIOVASCULAR: Regular rate and rhythm without murmurs, gallops, or rubs. RESPIRATORY: Breath sounds equal bilaterally. No accessory muscle use. GASTROINTESTINAL: Abdomen soft, non-tender, nondistended. MUSCULOSKELETAL: No cyanosis, or edema. BACK: Nontender without obvious deformity. No CVA tenderness. Assessment and Plan - Plan IMPRESSION: TANA COPD CHF Morbid obesity Gen Weakness/ deconditioning PLAN: CPAP at Night Supplement 02 Diurease Aerosol nebs Ativan prn anxiety Physical therapy. Stable from Pulm standpoint
[2018-04-13] MEDS: Enoxaparin Inj 40 MG/0.4 ML Syringe SQ SCH (18:34)
[2018-04-13] MEDS: traZODone 50 MG Tablet PO SCH (21:00)
[2018-04-13] MEDS: Zolpidem Tartrate 5 MG Tablet PO PRN (22:39)
[2018-04-14] MEDS: LORazepam 1 MG Tablet PO PRN ×3 (03:16→16:32)
[2018-04-14] MEDS: Polyethylene Glycol 3350 17 GM Packet PO SCH (09:31)
[2018-04-14] MEDS: Psyllium Husk SF 3.4 GM in 5.8 GM Packet PO SCH ×2 (09:31→20:41)
[2018-04-14] MEDS: Insulin NovoLOG Aspart Correctional Sugar Inj SQ SCH ×4 (09:32→21:32)
[2018-04-14] MEDS: Senna/Docusate Sodium 8.6/50 MG Tablet PO SCH ×4 (09:33→21:35)
[2018-04-14] MEDS: Furosemide 40 MG Tablet PO SCH ×2 (09:34→21:30)
[2018-04-14] MEDS: Amiodarone 200 MG Tablet PO SCH ×2 (09:34→21:31)
[2018-04-14] MEDS: Famotidine 20 MG Tablet PO SCH ×2 (09:34→21:30)
[2018-04-14] MEDS: guaiFENesin 600 MG ER Tablet PO SCH ×2 (09:34→21:29)
[2018-04-14] MEDS: Aspirin 325 MG Tablet PO SCH (09:34)
[2018-04-14] MEDS: Carvedilol 12.5 MG Tablet PO SCH ×2 (09:35→21:31)
[2018-04-14] MEDS: Calamine/Pramoxine Lotion 180 ML Bottle TOPICAL SCH ×2 (09:35→20:41)
[2018-04-14] MEDS: Lactic Acid (Ammonium Lactate) 12% Lotion 225 GM Bottle TOPICAL SCH ×2 (09:35→21:35)
[2018-04-14] MEDS: Insulin Detemir Inj 1,000 UNIT/10 ML Vial SQ SCH ×2 (09:35→21:32)
[2018-04-14] MEDS: Sodium Chloride 0.65% Nasal Drops/Spray 30 ML Bottle EACH NARE SCH ×2 (09:36→21:36)
[2018-04-14] MEDS: Gabapentin 100 MG Capsule PO SCH ×3 (09:36→19:26)
[2018-04-14] MEDS: Allopurinol 100 MG Tablet PO SCH (09:37)
[2018-04-14] MEDS ORDERED: Sod Phosphate/Sod Biphosphate (Adult) Enema 133 ML Bottle RECTAL ONE (11:25)
--- NOTE | 2018-04-14 11:28 | P.PNIM ---
Subjective Interval history: in no acute distress. denies pain or worsening sob. complaining of constipation. d/w the RN. Physical Exam Vital signs: Vital Signs 04/13/18 12:00 04/13/18 13:28 04/13/18 16:00 Temperature 98.3 F 98.6 F Pulse Rate 59 L 70 62 Respiratory Rate 20 20 20 Blood Pressure 110/56 L 113/60 Pulse Oximetry 96 96 04/13/18 20:00 04/13/18 20:06 04/14/18 00:00 Temperature 98.2 F 98.0 F Pulse Rate 59 L 62 56 L Respiratory Rate 20 18 20 Blood Pressure 122/58 L 103/59 L Pulse Oximetry 96 98 99 04/14/18 04:00 04/14/18 07:59 04/14/18 08:00 Temperature 98.5 F 98.1 F Pulse Rate 58 L 60 61 Respiratory Rate 20 20 20 Blood Pressure 121/58 L 117/58 L Pulse Oximetry 99 99 97 Intake & Output 04/13/18 04/14/18 04/14/18 18:59 06:59 18:59 Intake Total 180 / 180 240 / 240 Output Total 2 / 2 Balance 180 / 180 240 / 240 -2 / -2 Weight 145.5 kg Intake: Oral 180 / 180 240 / 240 Output: Urine 2 / 2 Other: # Voids 3 4 Date of Last Bowel Movement 04/11/18 04/11/18 # Bowel Movements 0 0 - Constitutional no acute distress - Routine Respiratory Exam Present: CTA bilaterally - Routine Cardiovascular Exam Present: RRR - Routine Abdominal Exam Present: soft - Routine Neurological Exam Present: alert, oriented X3 Results - Labs CBC & Chem 7: 04/10/18 10:25 04/10/18 08:45 Laboratory Results - last 24 hr 04/13/18 04/13/18 04/13/18 12:44 18:20 20:20 POC Glucose 162 H 103 160 H 04/14/18 07:52 POC Glucose 114 H Assessment and Plan - Assessment (1) Respiratory failure with hypoxia and hypercapnia Code(s): J96.91 - Respiratory failure, unspecified with hypoxia; J96.92 - Respiratory failure, unspecified with hypercapnia Status: Acute (2) Acute kidney injury superimposed on CKD Code(s): N17.9 - Acute kidney failure, unspecified; N18.9 - Chronic kidney disease, unspecified Status: Acute (3) Acute metabolic encephalopathy Code(s): G93.41 - Metabolic encephalopathy Status: Resolved (4) Altered mental status Code(s): R41.82 - Altered mental status, unspecified Status: Resolved (5) Obesity Code(s): E66.9 - Obesity, unspecified Status: Chronic - Plan Acute on chronic hypercapnic respiratory insufficiency, on home oxygen. PMH COPD , Obstructive sleep apnea Status post treatment of MRSA pneumonia -Pulmonology following -CPAP as needed, DuoNebs CHF, not in exacerbation, CAD s/p CABG. echo from September showed EF 55-60% On ASA, Amiodarone 200mg BID, Coreg 12.5mg BID, Clonidine 0.1mg Q8, Plavix 75mg daily -Continue Lasix 40 mg twice daily Hypertension Stable BP -Continue carvedilol, clonidine Diabetes -Supplemental sliding scale -Levemir 10 units twice daily- good readings - change to regular diet- as patient requested - monitor sugars Right foot pain/swelling - Resolved - xrays of the right foot - negative- - consider podiatry consult if recurs - Percocet to q 4 prn Scrotal pain- improved Per Dr. Woodruff likely from anasarca. Ultrasound noted. Continue NSAIDs, warm compress Hypotestosteronism Impression: 02/23 total testosterone was 13, free 0.14; s/p 100mg injection. Repeat total testosterone 451/free testosterone 14.4 03/27 Left upper and lower extremity weakness- improved Impression: Head CT on 02/25 shows no acute changes. CT of the neck shows C6-[address] of lumbar spine shows L3-4 herniation with L3 nerve root impingement Per NS, the disc herniation is nonsurgical. S/P course steroids Morbid obesity/debility: -PT daily to mobilize the patient more. Discussed about obtaining a regular mattress to help him mobilize more. -Slowly improving Insomnia -Continue Trazodone 100mg HS -Continue PRN Zolpidem -Continue HS Melatonin Constipation; laxatives/ enema as needed. DVT prophylaxis: Lovenox Discharge Planning: awaiting placement. (1) Respiratory failure with hypoxia and hypercapnia Qualifiers: Chronicity: chronic Qualified Code(s): J96.11 - Chronic respiratory failure with hypoxia; J96.12 - Chronic respiratory failure with hypercapnia
[2018-04-14] MEDS: Nystatin 100,000 UNITS/GM Powder 15 GM Bottle TOPICAL SCH ×3 (16:32→21:36)
[2018-04-14] MEDS: Enoxaparin Inj 40 MG/0.4 ML Syringe SQ SCH (19:26)
[2018-04-14] MEDS: Melatonin 5 MG Tablet PO PRN (21:30)
[2018-04-14] MEDS: traZODone 50 MG Tablet PO SCH (21:30)
[2018-04-14] MEDS: Zolpidem Tartrate 5 MG Tablet PO PRN (21:31)
[2018-04-15] MEDS: LORazepam 1 MG Tablet PO PRN ×4 (00:03→22:03)
[2018-04-15] MEDS: Nystatin 100,000 UNITS/GM Powder 15 GM Bottle TOPICAL SCH ×3 (05:52→22:04)
[2018-04-15] MEDS: Insulin NovoLOG Aspart Correctional Sugar Inj SQ SCH ×4 (08:52→21:30)
[2018-04-15] MEDS: guaiFENesin 600 MG ER Tablet PO SCH ×2 (08:53→21:25)
[2018-04-15] MEDS: Furosemide 40 MG Tablet PO SCH ×2 (08:53→21:26)
[2018-04-15] MEDS: Carvedilol 12.5 MG Tablet PO SCH ×2 (08:53→21:26)
[2018-04-15] MEDS: Allopurinol 100 MG Tablet PO SCH (08:53)
[2018-04-15] MEDS: Calamine/Pramoxine Lotion 180 ML Bottle TOPICAL SCH ×2 (08:54→21:32)
[2018-04-15] MEDS: Senna/Docusate Sodium 8.6/50 MG Tablet PO SCH ×4 (08:54→21:34)
[2018-04-15] MEDS: Sodium Chloride 0.65% Nasal Drops/Spray 30 ML Bottle EACH NARE SCH ×2 (08:54→21:33)
[2018-04-15] MEDS: Aspirin 325 MG Tablet PO SCH (08:54)
[2018-04-15] MEDS: Famotidine 20 MG Tablet PO SCH ×2 (08:54→21:25)
[2018-04-15] MEDS: Amiodarone 200 MG Tablet PO SCH ×2 (08:54→21:25)
[2018-04-15] MEDS: Lactic Acid (Ammonium Lactate) 12% Lotion 225 GM Bottle TOPICAL SCH ×2 (08:55→21:31)
[2018-04-15] MEDS: Insulin Detemir Inj 1,000 UNIT/10 ML Vial SQ SCH ×2 (08:55→21:31)
[2018-04-15] MEDS: Psyllium Husk SF 3.4 GM in 5.8 GM Packet PO SCH ×2 (08:55→21:31)
[2018-04-15] MEDS: Polyethylene Glycol 3350 17 GM Packet PO SCH (08:55)
[2018-04-15] MEDS: Gabapentin 100 MG Capsule PO SCH ×3 (08:56→18:31)
--- NOTE | 2018-04-15 10:46 | P.PNIM ---
Subjective Interval history: in no acute distress. overall the same. no new complaints. Physical Exam Vital signs: Vital Signs 04/14/18 12:00 04/14/18 15:42 04/14/18 16:00 Temperature 98.8 F 98.9 F Pulse Rate 63 63 60 Respiratory Rate 20 20 20 Blood Pressure 125/60 113/55 L Pulse Oximetry 97 97 04/14/18 20:00 04/14/18 20:07 04/15/18 00:00 Temperature 98 F 97.8 F Pulse Rate 61 64 68 Respiratory Rate 17 16 19 Blood Pressure 105/59 L 115/72 Pulse Oximetry 97 97 96 04/15/18 04:00 04/15/18 08:00 04/15/18 08:13 Temperature 98.2 F 98 F Pulse Rate 57 L 57 L 70 Respiratory Rate 16 20 19 Blood Pressure 94/57 L 114/57 L Pulse Oximetry 97 99 98 Intake & Output 04/14/18 04/15/18 04/15/18 18:59 06:59 18:59 Intake Total 660 / 660 Output Total 5 / 5 Balance -5 / -5 660 / 660 Weight 143.8 kg Intake: Oral 660 / 660 Output: Urine 5 / 5 Other: # Incontinent Voids 4 Date of Last Bowel Movement 04/14/18 # Bowel Movements 1 # Incontinent Bowel Movements 1 - Routine Respiratory Exam Present: CTA bilaterally - Routine Cardiovascular Exam Present: RRR - Routine Abdominal Exam Present: soft - Routine Extremities Exam Comments: no pedal edema. - Routine Neurological Exam Present: alert, oriented X3 Results - Labs CBC & Chem 7: 04/10/18 10:25 04/10/18 08:45 Laboratory Results - last 24 hr 04/14/18 04/14/18 04/14/18 13:03 16:38 20:37 POC Glucose 149 H 171 H 226 H Assessment and Plan - Assessment (1) Respiratory failure with hypoxia and hypercapnia Code(s): J96.91 - Respiratory failure, unspecified with hypoxia; J96.92 - Respiratory failure, unspecified with hypercapnia Status: Acute (2) Acute kidney injury superimposed on CKD Code(s): N17.9 - Acute kidney failure, unspecified; N18.9 - Chronic kidney disease, unspecified Status: Acute (3) Acute metabolic encephalopathy Code(s): G93.41 - Metabolic encephalopathy Status: Resolved (4) Altered mental status Code(s): R41.82 - Altered mental status, unspecified Status: Resolved (5) Obesity Code(s): E66.9 - Obesity, unspecified Status: Chronic - Plan Acute on chronic hypercapnic respiratory insufficiency, on home oxygen. PMH COPD , Obstructive sleep apnea Status post treatment of MRSA pneumonia -Pulmonology following -CPAP as needed, DuoNebs CHF, not in exacerbation, CAD s/p CABG. echo from September showed EF 55-60% On ASA, Amiodarone 200mg BID, Coreg 12.5mg BID, Clonidine 0.1mg Q8, Plavix 75mg daily -Continue Lasix 40 mg twice daily Hypertension Stable BP -Continue carvedilol, clonidine Diabetes -Supplemental sliding scale -Levemir 10 units twice daily- good readings - changed to regular diet- as patient requested - monitor sugars Right foot pain/swelling - Resolved - xrays of the right foot - negative- - consider podiatry consult if recurs - Percocet to q 4 prn Scrotal pain- improved Per Dr. Woodruff likely from anasarca. Ultrasound noted. Continue NSAIDs, warm compress Hypotestosteronism Impression: 02/23 total testosterone was 13, free 0.14; s/p 100mg injection. Repeat total testosterone 451/free testosterone 14.4 03/27 Left upper and lower extremity weakness- improved Impression: Head CT on 02/25 shows no acute changes. CT of the neck shows C6-[address] of lumbar spine shows L3-4 herniation with L3 nerve root impingement Per NS, the disc herniation is nonsurgical. S/P course steroids Morbid obesity/debility: -PT daily to mobilize the patient more. Discussed about obtaining a regular mattress to help him mobilize more. -Slowly improving Insomnia -Continue Trazodone 100mg HS -Continue PRN Zolpidem -Continue HS Melatonin Constipation; laxatives/ enema as needed. DVT prophylaxis: Lovenox Discharge Planning: awaiting placement. (1) Respiratory failure with hypoxia and hypercapnia Qualifiers: Chronicity: chronic Qualified Code(s): J96.11 - Chronic respiratory failure with hypoxia; J96.12 - Chronic respiratory failure with hypercapnia
[2018-04-15] MEDS: Enoxaparin Inj 40 MG/0.4 ML Syringe SQ SCH (18:31)
[2018-04-15] MEDS: Zolpidem Tartrate 5 MG Tablet PO PRN (21:25)
[2018-04-15] MEDS: Melatonin 5 MG Tablet PO PRN (21:25)
[2018-04-15] MEDS: traZODone 50 MG Tablet PO SCH (22:03)
[2018-04-16] MEDS: LORazepam 1 MG Tablet PO PRN ×3 (04:57→17:25)
[2018-04-16] MEDS: Nystatin 100,000 UNITS/GM Powder 15 GM Bottle TOPICAL SCH ×2 (08:00→13:42)
[2018-04-16] MEDS: Insulin NovoLOG Aspart Correctional Sugar Inj SQ SCH ×4 (10:03→22:45)
[2018-04-16] MEDS: Calamine/Pramoxine Lotion 180 ML Bottle TOPICAL SCH ×2 (10:03→22:41)
[2018-04-16] MEDS: Aspirin 325 MG Tablet PO SCH (10:03)
[2018-04-16] MEDS: Sodium Chloride 0.65% Nasal Drops/Spray 30 ML Bottle EACH NARE SCH ×2 (10:03→22:41)
[2018-04-16] MEDS: Amiodarone 200 MG Tablet PO SCH ×2 (10:04→22:38)
[2018-04-16] MEDS: Carvedilol 12.5 MG Tablet PO SCH ×2 (10:04→22:36)
[2018-04-16] MEDS: Polyethylene Glycol 3350 17 GM Packet PO SCH (10:05)
[2018-04-16] MEDS: guaiFENesin 600 MG ER Tablet PO SCH ×2 (10:05→22:39)
[2018-04-16] MEDS: Insulin Detemir Inj 1,000 UNIT/10 ML Vial SQ SCH ×2 (10:05→22:44)
[2018-04-16] MEDS: Lactic Acid (Ammonium Lactate) 12% Lotion 225 GM Bottle TOPICAL SCH ×2 (10:05→22:42)
[2018-04-16] MEDS: Psyllium Husk SF 3.4 GM in 5.8 GM Packet PO SCH ×2 (10:05→22:41)
[2018-04-16] MEDS: Furosemide 40 MG Tablet PO SCH ×2 (10:05→22:39)
[2018-04-16] MEDS: Allopurinol 100 MG Tablet PO SCH (10:06)
[2018-04-16] MEDS: Gabapentin 100 MG Capsule PO SCH ×3 (10:06→17:25)
[2018-04-16] MEDS: Famotidine 20 MG Tablet PO SCH ×2 (10:07→22:38)
[2018-04-16] MEDS: Senna/Docusate Sodium 8.6/50 MG Tablet PO SCH ×3 (10:07→22:39)
[2018-04-16] MEDS: Acetaminophen 325 MG Tablet PO PRN ×2 (11:09→17:24)
--- NOTE | 2018-04-16 11:10 | P.PNIM ---
Subjective Interval history: in no acute distress. complaining of constipation. no other new complaints. Physical Exam Vital signs: Vital Signs 04/15/18 11:55 04/15/18 12:00 04/15/18 16:00 Temperature 98.1 F 97.9 F Pulse Rate 56 L 60 56 L Respiratory Rate 22 20 20 Blood Pressure 116/55 L 125/61 Pulse Oximetry 97 90 L 04/15/18 19:52 04/15/18 20:00 04/16/18 00:00 Temperature 97.8 F 98.1 F Pulse Rate 56 L 57 L 58 L Respiratory Rate 20 20 18 Blood Pressure 116/56 L 120/65 Pulse Oximetry 97 96 96 04/16/18 00:18 04/16/18 04:00 04/16/18 07:57 Temperature 98.0 F Pulse Rate 59 L 53 L Respiratory Rate 18 14 Blood Pressure 136/68 Pulse Oximetry 100 99 95 Intake & Output 04/15/18 04/16/18 04/16/18 18:59 06:59 18:59 Intake Total 240 / 240 Output Total Balance - - 240 / 240 Weight 144.3 kg Intake: Oral 240 / 240 Output: Urine Other: # Incontinent Voids 3 Date of Last Bowel Movement 04/14/18 - Constitutional no acute distress - Routine Respiratory Exam Present: CTA bilaterally - Routine Cardiovascular Exam Present: RRR - Routine Abdominal Exam Present: soft - Routine Extremities Exam Present: edema - Routine Neurological Exam Present: alert, oriented X3 Results - Labs CBC & Chem 7: 04/10/18 10:25 04/10/18 08:45 Laboratory Results - last 24 hr 04/15/18 04/15/18 04/15/18 11:48 16:13 21:10 POC Glucose 200 H 156 H 252 H 04/16/18 07:41 POC Glucose 114 H Assessment and Plan - Assessment (1) Respiratory failure with hypoxia and hypercapnia Code(s): J96.91 - Respiratory failure, unspecified with hypoxia; J96.92 - Respiratory failure, unspecified with hypercapnia Status: Acute (2) Acute kidney injury superimposed on CKD Code(s): N17.9 - Acute kidney failure, unspecified; N18.9 - Chronic kidney disease, unspecified Status: Acute (3) Acute metabolic encephalopathy Code(s): G93.41 - Metabolic encephalopathy Status: Resolved (4) Altered mental status Code(s): R41.82 - Altered mental status, unspecified Status: Resolved (5) Obesity Code(s): E66.9 - Obesity, unspecified Status: Chronic - Plan Acute on chronic hypercapnic respiratory insufficiency, on home oxygen. PMH COPD , Obstructive sleep apnea Status post treatment of MRSA pneumonia -Pulmonology following -CPAP as needed, DuoNebs CHF, not in exacerbation, CAD s/p CABG. echo from September showed EF 55-60% On ASA, Amiodarone 200mg BID, Coreg 12.5mg BID, Clonidine 0.1mg Q8, Plavix 75mg daily -Continue Lasix 40 mg twice daily Hypertension Stable BP -Continue carvedilol, clonidine Diabetes -Supplemental sliding scale -Levemir 10 units twice daily- good readings - changed to regular diet- as patient requested - monitor sugars Right foot pain/swelling - Resolved - xrays of the right foot - negative- - consider podiatry consult if recurs - Percocet to q 4 prn Scrotal pain- improved Per Dr. Woodruff likely from anasarca. Ultrasound noted. Continue NSAIDs, warm compress Hypotestosteronism Impression: 02/23 total testosterone was 13, free 0.14; s/p 100mg injection. Repeat total testosterone 451/free testosterone 14.4 03/27 Left upper and lower extremity weakness- improved Impression: Head CT on 02/25 shows no acute changes. CT of the neck shows C6-[address] of lumbar spine shows L3-4 herniation with L3 nerve root impingement Per NS, the disc herniation is nonsurgical. S/P course steroids Morbid obesity/debility: -PT daily to mobilize the patient more. Discussed about obtaining a regular mattress to help him mobilize more. -Slowly improving Insomnia -Continue Trazodone 100mg HS -Continue PRN Zolpidem -Continue HS Melatonin Constipation; laxatives/ enema as needed. DVT prophylaxis: Lovenox Discharge Planning: awaiting placement. (1) Respiratory failure with hypoxia and hypercapnia Qualifiers: Chronicity: chronic Qualified Code(s): J96.11 - Chronic respiratory failure with hypoxia; J96.12 - Chronic respiratory failure with hypercapnia
[2018-04-16] MEDS ORDERED: Sod Phosphate/Sod Biphosphate (Adult) Enema 133 ML Bottle RECTAL ONE (12:00)
[2018-04-16] MEDS: Enoxaparin Inj 40 MG/0.4 ML Syringe SQ SCH (17:30)
--- NOTE | 2018-04-16 18:58 | P.PNPL ---
Subjective Interval history: 57 YO Obese male with TANA Uses CPAP On Nasal cannula no new complaint Physical Exam Vital signs: Vital Signs 04/15/18 19:52 04/15/18 20:00 04/16/18 00:00 Temperature 97.8 F 98.1 F Pulse Rate 56 L 57 L 58 L Respiratory Rate 20 20 18 Blood Pressure 116/56 L 120/65 Pulse Oximetry 97 96 96 04/16/18 00:18 04/16/18 04:00 04/16/18 07:57 Temperature 98.0 F Pulse Rate 59 L 53 L Respiratory Rate 18 14 Blood Pressure 136/68 Pulse Oximetry 100 99 95 04/16/18 12:30 04/16/18 12:36 04/16/18 16:17 Temperature 97.4 F L 97.3 F L Pulse Rate 58 L 63 57 L Respiratory Rate 14 18 18 Blood Pressure 114/54 L 131/56 L Pulse Oximetry 98 99 Intake & Output 04/15/18 04/16/18 04/16/18 18:59 06:59 18:59 Intake Total 240 / 240 240 / 240 Output Total Balance - / -9 240 / 240 240 / 240 Weight 144.3 kg Intake: Oral 240 / 240 240 / 240 Output: Urine Other: # Voids 2 # Incontinent Voids 3 Date of Last Bowel Movement 04/14/18 04/14/18 GENERAL: Obese Wm, NAD SKIN: Warm and dry. HEAD: Normocephalic. EYES: No scleral icterus. No injection or drainage. NECK: Supple, trachea midline. No JVD or lymphadenopathy. CARDIOVASCULAR: Regular rate and rhythm without murmurs, gallops, or rubs. RESPIRATORY: Breath sounds equal bilaterally. No accessory muscle use. GASTROINTESTINAL: Abdomen soft, non-tender, nondistended. MUSCULOSKELETAL: No cyanosis, or edema. BACK: Nontender without obvious deformity. No CVA tenderness. Assessment and Plan - Plan IMPRESSION: TANA COPD CHF Morbid obesity Gen Weakness/ deconditioning PLAN: CPAP at Night Supplement 02 Diurease Aerosol nebs Physical therapy.
[2018-04-16] MEDS: traZODone 50 MG Tablet PO SCH (22:38)
[2018-04-17] MEDS: Nystatin 100,000 UNITS/GM Powder 15 GM Bottle TOPICAL SCH ×4 (00:04→22:22)
[2018-04-17] MEDS: LORazepam 1 MG Tablet PO PRN ×4 (00:04→22:21)
[2018-04-17] MEDS: Gabapentin 100 MG Capsule PO SCH ×3 (08:02→18:07)
[2018-04-17] MEDS: Insulin NovoLOG Aspart Correctional Sugar Inj SQ SCH ×4 (08:42→22:29)
[2018-04-17] MEDS: Famotidine 20 MG Tablet PO SCH ×2 (09:10→22:22)
[2018-04-17] MEDS: Furosemide 40 MG Tablet PO SCH ×2 (09:11→22:28)
[2018-04-17] MEDS: Aspirin 325 MG Tablet PO SCH (09:11)
[2018-04-17] MEDS: Allopurinol 100 MG Tablet PO SCH (09:11)
[2018-04-17] MEDS: Senna/Docusate Sodium 8.6/50 MG Tablet PO SCH ×2 (09:12→22:22)
[2018-04-17] MEDS: Amiodarone 200 MG Tablet PO SCH ×2 (09:12→22:22)
[2018-04-17] MEDS: guaiFENesin 600 MG ER Tablet PO SCH ×2 (09:12→22:22)
[2018-04-17] MEDS: Psyllium Husk SF 3.4 GM in 5.8 GM Packet PO SCH ×2 (09:13→22:30)
[2018-04-17] MEDS: Insulin Detemir Inj 1,000 UNIT/10 ML Vial SQ SCH ×2 (09:14→22:32)
[2018-04-17] MEDS: Lactic Acid (Ammonium Lactate) 12% Lotion 225 GM Bottle TOPICAL SCH ×2 (09:23→22:32)
[2018-04-17] MEDS: Carvedilol 12.5 MG Tablet PO SCH ×2 (09:41→22:21)
[2018-04-17] MEDS: Sodium Chloride 0.65% Nasal Drops/Spray 30 ML Bottle EACH NARE SCH ×2 (09:41→22:31)
[2018-04-17] MEDS: Acetaminophen 325 MG Tablet PO PRN ×2 (09:55→22:21)
--- NOTE | 2018-04-17 11:47 | P.PNIM ---
Subjective Interval history: in no acute distress. clinically the same. no new complaints. Physical Exam Vital signs: Vital Signs 04/16/18 12:30 04/16/18 12:36 04/16/18 16:17 Temperature 97.4 F L 97.3 F L Pulse Rate 58 L 63 57 L Respiratory Rate 14 18 18 Blood Pressure 114/54 L 131/56 L Pulse Oximetry 98 99 04/16/18 20:00 04/16/18 20:08 04/17/18 00:00 Temperature 98.2 F 98.0 F Pulse Rate 59 L 58 L 55 L Respiratory Rate 20 18 20 Blood Pressure 105/64 116/62 Pulse Oximetry 98 97 98 04/17/18 04:00 04/17/18 08:00 Temperature 98.1 F 98.1 F Pulse Rate 64 56 L Respiratory Rate 20 18 Blood Pressure 121/58 L 104/56 L Pulse Oximetry 99 100 Intake & Output 04/16/18 04/17/18 04/17/18 18:59 06:59 18:59 Intake Total 240 / 240 240 / 240 Balance 240 / 240 240 / 240 Weight 144.5 kg Intake: Oral 240 / 240 240 / 240 Other: # Voids 5 3 Date of Last Bowel Movement 04/14/18 04/14/18 - Routine Respiratory Exam Present: CTA bilaterally - Routine Cardiovascular Exam Present: RRR - Routine Abdominal Exam Present: soft Results - Labs CBC & Chem 7: 04/10/18 10:25 04/10/18 08:45 Laboratory Results - last 24 hr 04/16/18 04/16/18 04/16/18 12:10 17:15 20:02 POC Glucose 208 H 111 H 181 H 04/17/18 07:57 POC Glucose 139 H Assessment and Plan - Assessment (1) Respiratory failure with hypoxia and hypercapnia Code(s): J96.91 - Respiratory failure, unspecified with hypoxia; J96.92 - Respiratory failure, unspecified with hypercapnia Status: Acute (2) Acute kidney injury superimposed on CKD Code(s): N17.9 - Acute kidney failure, unspecified; N18.9 - Chronic kidney disease, unspecified Status: Acute (3) Acute metabolic encephalopathy Code(s): G93.41 - Metabolic encephalopathy Status: Resolved (4) Altered mental status Code(s): R41.82 - Altered mental status, unspecified Status: Resolved (5) Obesity Code(s): E66.9 - Obesity, unspecified Status: Chronic - Plan Acute on chronic hypercapnic respiratory insufficiency, on home oxygen. PMH COPD , Obstructive sleep apnea Status post treatment of MRSA pneumonia -Pulmonology following -CPAP as needed, DuoNebs CHF, not in exacerbation, CAD s/p CABG. echo from September showed EF 55-60% On ASA, Amiodarone 200mg BID, Coreg 12.5mg BID, Clonidine 0.1mg Q8, Plavix 75mg daily -Continue Lasix 40 mg twice daily Hypertension Stable BP -Continue carvedilol, clonidine Diabetes -Supplemental sliding scale -Levemir 10 units twice daily- good readings - changed to regular diet- as patient requested - monitor sugars Right foot pain/swelling - Resolved - xrays of the right foot - negative- - consider podiatry consult if recurs - Percocet to q 4 prn Scrotal pain- improved Per Dr. Woodruff likely from anasarca. Ultrasound noted. Continue NSAIDs, warm compress Hypotestosteronism Impression: 02/23 total testosterone was 13, free 0.14; s/p 100mg injection. Repeat total testosterone 451/free testosterone 14.4 03/27 Left upper and lower extremity weakness- improved Impression: Head CT on 02/25 shows no acute changes. CT of the neck shows C6-[address] of lumbar spine shows L3-4 herniation with L3 nerve root impingement Per NS, the disc herniation is nonsurgical. S/P course steroids Morbid obesity/debility: -PT daily to mobilize the patient more. Discussed about obtaining a regular mattress to help him mobilize more. -Slowly improving Insomnia -Continue Trazodone 100mg HS -Continue PRN Zolpidem -Continue HS Melatonin Constipation; laxatives/ enema as needed. DVT prophylaxis: Lovenox Discharge Planning: awaiting placement. (1) Respiratory failure with hypoxia and hypercapnia Qualifiers: Chronicity: chronic Qualified Code(s): J96.11 - Chronic respiratory failure with hypoxia; J96.12 - Chronic respiratory failure with hypercapnia
[2018-04-17] MEDS: Polyethylene Glycol 3350 17 GM Packet PO SCH (16:08)
[2018-04-17] MEDS: Calamine/Pramoxine Lotion 180 ML Bottle TOPICAL SCH ×2 (16:09→22:31)
[2018-04-17] MEDS: Sod Phosphate/Sod Biphosphate (Adult) Enema 133 ML Bottle RECTAL PRN (18:06)
[2018-04-17] MEDS: Enoxaparin Inj 40 MG/0.4 ML Syringe SQ SCH (18:07)
--- NOTE | 2018-04-17 18:19 | P.PNPL ---
Subjective Interval history: 57 YO Obese male with TANA Uses CPAP On Nasal cannula no new complaint Works with PT Physical Exam Vital signs: Vital Signs 04/16/18 20:00 04/16/18 20:08 04/17/18 00:00 Temperature 98.2 F 98.0 F Pulse Rate 59 L 58 L 55 L Respiratory Rate 20 Blood Pressure 105/64 116/62 Pulse Oximetry 98 97 98 04/17/18 04:00 04/17/18 08:00 04/17/18 08:50 Temperature 98.1 F 98.1 F Pulse Rate 64 56 L 59 L Respiratory Rate 18 Blood Pressure 121/58 L 104/56 L Pulse Oximetry 99 100 99 Intake & Output 04/16/18 04/17/18 04/17/18 18:59 06:59 18:59 Intake Total 240 / 240 240 / 240 Balance 240 / 240 240 / 240 Weight 144.5 kg Intake: Oral 240 / 240 240 / 240 Other: # Voids 5 3 Date of Last Bowel Movement 04/14/18 04/14/18 GENERAL: Obese WM,NAD SKIN: Warm and dry. HEAD: Normocephalic. EYES: No scleral icterus. No injection or drainage. NECK: Supple, trachea midline. No JVD or lymphadenopathy. CARDIOVASCULAR: Regular rate and rhythm without murmurs, gallops, or rubs. RESPIRATORY: Breath sounds equal bilaterally. No accessory muscle use. GASTROINTESTINAL: Abdomen soft, non-tender, nondistended. MUSCULOSKELETAL: No cyanosis, or edema. BACK: Nontender without obvious deformity. No CVA tenderness. Assessment and Plan - Plan IMPRESSION: TANA COPD CHF Morbid obesity Gen Weakness/ deconditioning PLAN: CPAP at Night Supplement 02 Diurease Aerosol nebs Physical therapy.
[2018-04-17] MEDS: traZODone 50 MG Tablet PO SCH (22:21)
[2018-04-18] MEDS: Acetaminophen 325 MG Tablet PO PRN ×2 (05:19→11:28)
[2018-04-18] MEDS: LORazepam 1 MG Tablet PO PRN ×3 (05:19→17:47)
[2018-04-18] MEDS: Nystatin 100,000 UNITS/GM Powder 15 GM Bottle TOPICAL SCH ×2 (05:21→17:40)
[2018-04-18] MEDS: Insulin NovoLOG Aspart Correctional Sugar Inj SQ SCH ×3 (09:20→17:40)
[2018-04-18] MEDS: Aspirin 325 MG Tablet PO SCH (09:34)
[2018-04-18] MEDS: Furosemide 40 MG Tablet PO SCH (09:34)
[2018-04-18] MEDS: guaiFENesin 600 MG ER Tablet PO SCH ×2 (09:34→21:00)
[2018-04-18] MEDS: Famotidine 20 MG Tablet PO SCH ×2 (09:35→21:00)
[2018-04-18] MEDS: Senna/Docusate Sodium 8.6/50 MG Tablet PO SCH ×2 (09:35→21:00)
[2018-04-18] MEDS: Allopurinol 100 MG Tablet PO SCH (09:36)
[2018-04-18] MEDS: Gabapentin 100 MG Capsule PO SCH ×3 (09:36→17:47)
[2018-04-18] MEDS: Carvedilol 12.5 MG Tablet PO SCH (09:36)
[2018-04-18] MEDS: Amiodarone 200 MG Tablet PO SCH ×2 (09:36→21:00)
[2018-04-18] MEDS: Insulin Detemir Inj 1,000 UNIT/10 ML Vial SQ SCH (09:39)
[2018-04-18] MEDS: Calamine/Pramoxine Lotion 180 ML Bottle TOPICAL SCH (09:40)
[2018-04-18] MEDS: Sodium Chloride 0.65% Nasal Drops/Spray 30 ML Bottle EACH NARE SCH ×2 (09:40→21:00)
[2018-04-18] MEDS ORDERED: Aluminum/Magnesium/Simethacone Susp 30 ML UDC PO PRN (10:17)
--- NOTE | 2018-04-18 10:17 | P.PNIM ---
Subjective Interval history: in no distress. complaining of some heartburn-otherwise no new complaints. Physical Exam Vital signs: Vital Signs 04/17/18 12:00 04/17/18 16:00 04/17/18 19:45 Temperature 97.9 F 97.8 F Pulse Rate 59 L 61 61 Respiratory Rate 18 18 18 Blood Pressure 107/61 117/64 Pulse Oximetry 97 97 04/17/18 20:00 04/18/18 00:00 04/18/18 04:00 Temperature 98.1 F 97.8 F 97.8 F Pulse Rate 63 60 54 L Respiratory Rate 18 18 18 Blood Pressure 121/73 133/76 112/63 Pulse Oximetry 98 97 99 04/18/18 08:00 04/18/18 08:38 04/18/18 08:39 Temperature 98.2 F Pulse Rate 59 L 84 Respiratory Rate 22 24 Blood Pressure 121/60 Pulse Oximetry 98 97 Intake & Output 04/17/18 04/18/18 04/18/18 18:59 06:59 18:59 Intake Total 960 / 960 240 / 240 Balance 960 / 960 240 / 240 Weight 145.3 kg Intake: Oral 960 / 960 240 / 240 Other: # Voids 3 # Incontinent Voids 5 Date of Last Bowel Movement 04/17/18 # Bowel Movements 2 1 # Incontinent Bowel Movements 1 - Routine Respiratory Exam Present: CTA bilaterally - Routine Cardiovascular Exam Present: RRR - Routine Abdominal Exam Present: soft Results - Labs CBC & Chem 7: 04/10/18 10:25 04/10/18 08:45 Laboratory Results - last 24 hr 04/17/18 04/17/18 04/17/18 13:01 16:16 20:43 POC Glucose 147 H 228 H 145 H 04/18/18 08:00 POC Glucose 120 H Assessment and Plan - Assessment (1) Respiratory failure with hypoxia and hypercapnia Code(s): J96.91 - Respiratory failure, unspecified with hypoxia; J96.92 - Respiratory failure, unspecified with hypercapnia Status: Acute (2) Acute kidney injury superimposed on CKD Code(s): N17.9 - Acute kidney failure, unspecified; N18.9 - Chronic kidney disease, unspecified Status: Acute (3) Acute metabolic encephalopathy Code(s): G93.41 - Metabolic encephalopathy Status: Resolved (4) Altered mental status Code(s): R41.82 - Altered mental status, unspecified Status: Resolved (5) Obesity Code(s): E66.9 - Obesity, unspecified Status: Chronic - Plan Acute on chronic hypercapnic respiratory insufficiency, on home oxygen. PMH COPD , Obstructive sleep apnea Status post treatment of MRSA pneumonia -Pulmonology following -CPAP as needed, DuoNebs CHF, not in exacerbation, CAD s/p CABG. echo from September showed EF 55-60% On ASA, Amiodarone 200mg BID, Coreg 12.5mg BID, Clonidine 0.1mg Q8, Plavix 75mg daily -Continue Lasix 40 mg twice daily Hypertension Stable BP -Continue carvedilol, clonidine Diabetes -Supplemental sliding scale -Levemir 10 units twice daily- good readings - changed to regular diet- as patient requested - monitor sugars Right foot pain/swelling - Resolved - xrays of the right foot - negative- - consider podiatry consult if recurs - Percocet to q 4 prn Scrotal pain- improved Per Dr. Woodruff likely from anasarca. Ultrasound noted. Continue NSAIDs, warm compress Hypotestosteronism Impression: 02/23 total testosterone was 13, free 0.14; s/p 100mg injection. Repeat total testosterone 451/free testosterone 14.4 03/27 Left upper and lower extremity weakness- improved Impression: Head CT on 02/25 shows no acute changes. CT of the neck shows C6-[address] of lumbar spine shows L3-4 herniation with L3 nerve root impingement Per NS, the disc herniation is nonsurgical. S/P course steroids Morbid obesity/debility: -PT daily to mobilize the patient more. Discussed about obtaining a regular mattress to help him mobilize more. -Slowly improving Insomnia -Continue Trazodone 100mg HS -Continue PRN Zolpidem -Continue HS Melatonin Constipation; laxatives/ enema as needed. heartburn; Maalox as needed. DVT prophylaxis: Lovenox Discharge Planning: awaiting placement. (1) Respiratory failure with hypoxia and hypercapnia Qualifiers: Chronicity: chronic Qualified Code(s): J96.11 - Chronic respiratory failure with hypoxia; J96.12 - Chronic respiratory failure with hypercapnia
[2018-04-18] MEDS: Lactic Acid (Ammonium Lactate) 12% Lotion 225 GM Bottle TOPICAL SCH (11:33)
[2018-04-18] MEDS: Polyethylene Glycol 3350 17 GM Packet PO SCH (11:34)
[2018-04-18] MEDS: Psyllium Husk SF 3.4 GM in 5.8 GM Packet PO SCH (11:34)
--- NOTE | 2018-04-18 17:31 | P.PNPL ---
Subjective Interval history: 57 YO Obese male with TANA Uses CPAP On Nasal cannula no new complaint Works with PT Physical Exam Vital signs: Vital Signs 04/17/18 19:45 04/17/18 20:00 04/18/18 00:00 Temperature 98.1 F 97.8 F Pulse Rate 61 63 60 Respiratory Rate 18 18 18 Blood Pressure 121/73 133/76 Pulse Oximetry 98 97 04/18/18 04:00 04/18/18 08:00 04/18/18 08:38 Temperature 97.8 F 98.2 F Pulse Rate 54 L 59 L Respiratory Rate 18 22 Blood Pressure 112/63 121/60 Pulse Oximetry 99 98 97 04/18/18 08:39 04/18/18 12:00 Temperature 98.2 F Pulse Rate 84 62 Respiratory Rate 24 22 Blood Pressure 122/62 Pulse Oximetry 100 Intake & Output 04/17/18 04/18/18 04/18/18 18:59 06:59 18:59 Intake Total 960 / 960 240 / 240 Balance 960 / 960 240 / 240 Weight 145.3 kg Intake: Oral 960 / 960 240 / 240 Other: # Voids 3 # Incontinent Voids 5 Date of Last Bowel Movement 04/17/18 # Bowel Movements 2 1 # Incontinent Bowel Movements 1 GENERAL: Obese male, NAD SKIN: Warm and dry. HEAD: Normocephalic. EYES: No scleral icterus. No injection or drainage. NECK: Supple, trachea midline. No JVD or lymphadenopathy. CARDIOVASCULAR: Regular rate and rhythm without murmurs, gallops, or rubs. RESPIRATORY: Breath sounds equal bilaterally. No accessory muscle use. GASTROINTESTINAL: Abdomen soft, non-tender, nondistended. MUSCULOSKELETAL: No cyanosis, or edema. BACK: Nontender without obvious deformity. No CVA tenderness. Assessment and Plan - Plan IMPRESSION: TANA COPD CHF Morbid obesity Gen Weakness/ deconditioning PLAN: CPAP at Night Supplement 02 Diurease Aerosol nebs Physical therapy. Cont Present management
[2018-04-18] MEDS: Enoxaparin Inj 40 MG/0.4 ML Syringe SQ SCH (17:47)
[2018-04-19] MEDS: LORazepam 1 MG Tablet PO PRN ×4 (00:27→20:44)
[2018-04-19] MEDS: Insulin NovoLOG Aspart Correctional Sugar Inj SQ SCH ×5 (00:48→20:43)
[2018-04-19] MEDS: Carvedilol 12.5 MG Tablet PO SCH ×3 (00:49→20:41)
[2018-04-19] MEDS: traZODone 50 MG Tablet PO SCH ×2 (00:49→20:41)
[2018-04-19] MEDS: Insulin Detemir Inj 1,000 UNIT/10 ML Vial SQ SCH ×3 (00:49→21:38)
[2018-04-19] MEDS: Furosemide 40 MG Tablet PO SCH ×3 (00:49→20:41)
[2018-04-19] MEDS: Lactic Acid (Ammonium Lactate) 12% Lotion 225 GM Bottle TOPICAL SCH ×3 (00:50→20:42)
[2018-04-19] MEDS: Calamine/Pramoxine Lotion 180 ML Bottle TOPICAL SCH ×3 (00:50→20:40)
[2018-04-19] MEDS: Nystatin 100,000 UNITS/GM Powder 15 GM Bottle TOPICAL SCH ×4 (00:51→22:39)
[2018-04-19] MEDS: Psyllium Husk SF 3.4 GM in 5.8 GM Packet PO SCH ×3 (00:51→20:43)
[2018-04-19] MEDS: guaiFENesin 600 MG ER Tablet PO SCH ×2 (09:12→20:43)
[2018-04-19] MEDS: Amiodarone 200 MG Tablet PO SCH ×2 (09:12→20:40)
[2018-04-19] MEDS: Allopurinol 100 MG Tablet PO SCH (09:12)
[2018-04-19] MEDS: Senna/Docusate Sodium 8.6/50 MG Tablet PO SCH ×2 (09:12→20:41)
[2018-04-19] MEDS: Famotidine 20 MG Tablet PO SCH ×2 (09:12→20:41)
[2018-04-19] MEDS: Aspirin 325 MG Tablet PO SCH (09:12)
[2018-04-19] MEDS: Gabapentin 100 MG Capsule PO SCH ×3 (09:13→18:24)
[2018-04-19] MEDS: Sodium Chloride 0.65% Nasal Drops/Spray 30 ML Bottle EACH NARE SCH ×2 (09:14→20:40)
[2018-04-19] MEDS: Polyethylene Glycol 3350 17 GM Packet PO SCH (09:15)
--- NOTE | 2018-04-19 11:06 | P.PNIM ---
Subjective Interval history: in no distress. no change clinically. Physical Exam Vital signs: Vital Signs 04/18/18 12:00 04/18/18 16:00 04/18/18 20:00 Temperature 98.2 F 97.8 F 97.8 F Pulse Rate 62 58 L 59 L Respiratory Rate 22 20 18 Blood Pressure 122/62 133/63 123/59 L Pulse Oximetry 100 95 99 04/18/18 20:10 04/19/18 00:00 04/19/18 04:00 Temperature 97.8 F 97.5 F L Pulse Rate 70 60 57 L Respiratory Rate 19 20 18 Blood Pressure 132/85 114/57 L Pulse Oximetry 98 98 100 04/19/18 08:30 Temperature Pulse Rate 60 Respiratory Rate 18 Blood Pressure Pulse Oximetry 98 Intake & Output 04/18/18 04/19/18 04/19/18 18:59 06:59 18:59 Intake Total 520 / 520 720 / 720 Balance 520 / 520 720 / 720 Weight 145.3 kg Intake: Oral 520 / 520 720 / 720 Other: # Voids 4 3 # Bowel Movements 0 0 - Constitutional no acute distress - Routine Respiratory Exam Present: CTA bilaterally - Routine Cardiovascular Exam Present: RRR - Routine Abdominal Exam Present: soft Results - Labs CBC & Chem 7: 04/10/18 10:25 04/10/18 08:45 Laboratory Results - last 24 hr 04/18/18 04/18/18 04/18/18 12:09 17:18 21:23 POC Glucose 139 H 144 H 194 H 04/19/18 07:59 POC Glucose 125 H Assessment and Plan - Assessment (1) Respiratory failure with hypoxia and hypercapnia Code(s): J96.91 - Respiratory failure, unspecified with hypoxia; J96.92 - Respiratory failure, unspecified with hypercapnia Status: Acute (2) Acute kidney injury superimposed on CKD Code(s): N17.9 - Acute kidney failure, unspecified; N18.9 - Chronic kidney disease, unspecified Status: Acute (3) Acute metabolic encephalopathy Code(s): G93.41 - Metabolic encephalopathy Status: Resolved (4) Altered mental status Code(s): R41.82 - Altered mental status, unspecified Status: Resolved (5) Obesity Code(s): E66.9 - Obesity, unspecified Status: Chronic - Plan Acute on chronic hypercapnic respiratory insufficiency, on home oxygen. PMH COPD , Obstructive sleep apnea Status post treatment of MRSA pneumonia -Pulmonology following -CPAP as needed, DuoNebs CHF, not in exacerbation, CAD s/p CABG. echo from September showed EF 55-60% On ASA, Amiodarone 200mg BID, Coreg 12.5mg BID, Clonidine 0.1mg Q8, Plavix 75mg daily -Continue Lasix 40 mg twice daily Hypertension Stable BP -Continue carvedilol, clonidine Diabetes -Supplemental sliding scale -Levemir 10 units twice daily- good readings - changed to regular diet- as patient requested - monitor sugars Right foot pain/swelling - Resolved - xrays of the right foot - negative- - consider podiatry consult if recurs Scrotal pain- improved Per Dr. Woodruff likely from anasarca. Ultrasound noted. Hypotestosteronism Impression: 02/23 total testosterone was 13, free 0.14; s/p 100mg injection. Repeat total testosterone 451/free testosterone 14.4 03/27 Left upper and lower extremity weakness- improved Impression: Head CT on 02/25 shows no acute changes. CT of the neck shows C6-[address] of lumbar spine shows L3-4 herniation with L3 nerve root impingement Per NS, the disc herniation is nonsurgical. S/P course steroids Morbid obesity/debility: -PT daily to mobilize the patient more. Discussed about obtaining a regular mattress to help him mobilize more. -Slowly improving Insomnia -Continue Trazodone 100mg HS -Continue PRN Zolpidem -Continue HS Melatonin Constipation; laxatives/ enema as needed. heartburn; Maalox as needed. DVT prophylaxis: Lovenox Discharge Planning: awaiting placement. (1) Respiratory failure with hypoxia and hypercapnia Qualifiers: Chronicity: chronic Qualified Code(s): J96.11 - Chronic respiratory failure with hypoxia; J96.12 - Chronic respiratory failure with hypercapnia
[2018-04-19] MEDS: Enoxaparin Inj 40 MG/0.4 ML Syringe SQ SCH (18:23)
--- NOTE | 2018-04-19 19:27 | P.PNPL ---
Subjective Interval history: 57 YO Obese male with TANA On Nasal cannula no new complaint Works with PT Not using CPAp as machine makes too much noise Physical Exam Vital signs: Vital Signs 04/18/18 20:00 04/18/18 20:10 04/19/18 00:00 Temperature 97.8 F 97.8 F Pulse Rate 59 L 70 60 Respiratory Rate 18 19 20 Blood Pressure 123/59 L 132/85 Pulse Oximetry 99 98 98 04/19/18 04:00 04/19/18 08:00 04/19/18 08:30 Temperature 97.5 F L 97.8 F Pulse Rate 57 L 60 60 Respiratory Rate 18 18 18 Blood Pressure 114/57 L 121/56 L Pulse Oximetry 100 99 98 04/19/18 12:00 04/19/18 16:00 Temperature 97.7 F 98.1 F Pulse Rate 88 58 L Respiratory Rate 16 18 Blood Pressure 112/56 L 114/71 Pulse Oximetry 97 98 Intake & Output 04/19/18 04/19/18 04/20/18 06:59 18:59 06:59 Intake Total 720 / 720 960 / 960 Balance 720 / 720 960 / 960 Weight 145.3 kg Intake: Oral 720 / 720 960 / 960 Other: # Voids 3 # Incontinent Voids 4 # Bowel Movements 0 # Incontinent Bowel Movements 0 GENERAL: Obese Wm, NAD SKIN: Warm and dry. HEAD: Normocephalic. EYES: No scleral icterus. No injection or drainage. NECK: Supple, trachea midline. No JVD or lymphadenopathy. CARDIOVASCULAR: Regular rate and rhythm without murmurs, gallops, or rubs. RESPIRATORY: Breath sounds equal bilaterally. No accessory muscle use. GASTROINTESTINAL: Abdomen soft, non-tender, nondistended. MUSCULOSKELETAL: No cyanosis, or edema. BACK: Nontender without obvious deformity. No CVA tenderness. Assessment and Plan - Plan IMPRESSION: TANA COPD CHF Morbid obesity Gen Weakness/ deconditioning PLAN: Supplement 02 Diurease Aerosol nebs Physical therapy. Encourage to use CPAP
[2018-04-19] MEDS: Zolpidem Tartrate 5 MG Tablet PO PRN (20:41)
[2018-04-20] MEDS: LORazepam 1 MG Tablet PO PRN ×3 (03:53→18:18)
--- NOTE | 2018-04-20 08:42 | P.PNPL ---
Subjective Interval history: 57 YO Obese male with TANA On Nasal cannula no new complaint Works with PT Physical Exam Vital signs: Vital Signs 04/19/18 12:00 04/19/18 16:00 04/19/18 19:20 Temperature 97.7 F 98.1 F Pulse Rate 88 58 L 62 Respiratory Rate 16 18 18 Blood Pressure 112/56 L 114/71 Pulse Oximetry 97 98 98 04/19/18 20:00 04/20/18 00:00 04/20/18 04:00 Temperature 97.9 F 98.0 F 97.8 F Pulse Rate 60 57 L 62 Respiratory Rate 20 18 18 Blood Pressure 119/54 L 120/62 115/73 Pulse Oximetry 98 95 98 04/20/18 08:19 Temperature Pulse Rate 68 Respiratory Rate 20 Blood Pressure Pulse Oximetry Intake & Output 04/19/18 04/20/18 04/20/18 18:59 06:59 18:59 Intake Total 960 / 960 240 / 240 Balance 960 / 960 240 / 240 Weight 143.1 kg Intake: Oral 960 / 960 240 / 240 Other: # Incontinent Voids 4 3 Date of Last Bowel Movement 04/19/18 # Incontinent Bowel Movements 0 GENERAL: Obese WM,NAD SKIN: Warm and dry. HEAD: Normocephalic. EYES: No scleral icterus. No injection or drainage. NECK: Supple, trachea midline. No JVD or lymphadenopathy. CARDIOVASCULAR: Regular rate and rhythm without murmurs, gallops, or rubs. RESPIRATORY: Breath sounds equal bilaterally. No accessory muscle use. GASTROINTESTINAL: Abdomen soft, non-tender, nondistended. MUSCULOSKELETAL: No cyanosis, or edema. BACK: Nontender without obvious deformity. No CVA tenderness. Narrative: Morbidly obese male, NAD, very interactive , in good spirts Skin: stasis changes in lower extremities. skin- much more moisturized CARDIOVASCULAR: Normal rate and regular rhythm without murmurs; normal perfusion S1, S2 NO S3 OR S4 RESPIRATORY: Decreased breath sounds to auscultation suspected secondary to body habitus. GASTROINTESTINAL: Abdomen obese, soft, non-tender, non-distended. Normal active bowel sounds MORBIDLY OBESE MUSCULOSKELETAL: right foot swelling - resolved no pain on dorsiflexion and flexion good pulses NEURO: Alert & Oriented. Grossly normal cranial nerves. Grossly normal peripheral function insight and judgement are limited mood and behaviors are somewhat appropriate Assessment and Plan - Plan IMPRESSION: TANA COPD CHF Morbid obesity Gen Weakness/ deconditioning PLAN: Supplement 02 Diurease Aerosol nebs Physical therapy. Encourage to use CPAP Stable from Pulm standpoint Available prn over weekend
[2018-04-20] MEDS: Nystatin 100,000 UNITS/GM Powder 15 GM Bottle TOPICAL SCH ×3 (09:01→22:03)
[2018-04-20] MEDS: Amiodarone 200 MG Tablet PO SCH ×2 (09:02→22:02)
[2018-04-20] MEDS: Carvedilol 12.5 MG Tablet PO SCH ×2 (09:02→22:02)
[2018-04-20] MEDS: Gabapentin 100 MG Capsule PO SCH ×3 (09:03→18:18)
[2018-04-20] MEDS: Allopurinol 100 MG Tablet PO SCH (09:03)
[2018-04-20] MEDS: Furosemide 40 MG Tablet PO SCH ×2 (09:03→22:02)
[2018-04-20] MEDS: Aspirin 325 MG Tablet PO SCH (09:03)
[2018-04-20] MEDS: guaiFENesin 600 MG ER Tablet PO SCH ×2 (09:03→22:01)
[2018-04-20] MEDS: Famotidine 20 MG Tablet PO SCH ×2 (09:03→22:02)
[2018-04-20] MEDS: Senna/Docusate Sodium 8.6/50 MG Tablet PO SCH ×2 (09:03→22:02)
[2018-04-20] MEDS: Sodium Chloride 0.65% Nasal Drops/Spray 30 ML Bottle EACH NARE SCH ×2 (09:04→22:01)
[2018-04-20] MEDS: Insulin NovoLOG Aspart Correctional Sugar Inj SQ SCH ×4 (09:04→21:48)
[2018-04-20] MEDS: Calamine/Pramoxine Lotion 180 ML Bottle TOPICAL SCH ×2 (09:04→22:01)
[2018-04-20] MEDS: Lactic Acid (Ammonium Lactate) 12% Lotion 225 GM Bottle TOPICAL SCH ×2 (09:04→22:03)
[2018-04-20] MEDS: Insulin Detemir Inj 1,000 UNIT/10 ML Vial SQ SCH ×2 (09:05→21:47)
[2018-04-20] MEDS: Psyllium Husk SF 3.4 GM in 5.8 GM Packet PO SCH ×2 (09:05→22:03)
[2018-04-20] MEDS: Polyethylene Glycol 3350 17 GM Packet PO SCH (09:05)
--- NOTE | 2018-04-20 10:42 | P.PNIM ---
Subjective Interval history: no new complaints. no change clinically. Physical Exam Vital signs: Vital Signs 04/19/18 12:00 04/19/18 16:00 04/19/18 19:20 Temperature 97.7 F 98.1 F Pulse Rate 88 58 L 62 Respiratory Rate 16 18 18 Blood Pressure 112/56 L 114/71 Pulse Oximetry 97 98 98 04/19/18 20:00 04/20/18 00:00 04/20/18 04:00 Temperature 97.9 F 98.0 F 97.8 F Pulse Rate 60 57 L 62 Respiratory Rate 20 18 18 Blood Pressure 119/54 L 120/62 115/73 Pulse Oximetry 98 95 98 04/20/18 08:00 04/20/18 08:19 Temperature 98.3 F Pulse Rate 60 68 Respiratory Rate 18 20 Blood Pressure 104/53 L Pulse Oximetry 96 Intake & Output 04/19/18 04/20/18 04/20/18 18:59 06:59 18:59 Intake Total 960 / 960 240 / 240 Balance 960 / 960 240 / 240 Weight 143.1 kg Intake: Oral 960 / 960 240 / 240 Other: # Incontinent Voids 4 3 Date of Last Bowel Movement 04/19/18 # Incontinent Bowel Movements 0 - Constitutional no acute distress - Routine Respiratory Exam Present: CTA bilaterally - Routine Cardiovascular Exam Present: RRR - Routine Abdominal Exam Present: soft Results - Labs CBC & Chem 7: 04/10/18 10:25 04/10/18 08:45 Laboratory Results - last 24 hr 04/19/18 04/19/18 04/19/18 12:03 17:21 20:43 POC Glucose 150 H 155 H 153 H 04/20/18 08:02 POC Glucose 245 H Assessment and Plan - Assessment (1) Respiratory failure with hypoxia and hypercapnia Code(s): J96.91 - Respiratory failure, unspecified with hypoxia; J96.92 - Respiratory failure, unspecified with hypercapnia Status: Acute (2) Acute kidney injury superimposed on CKD Code(s): N17.9 - Acute kidney failure, unspecified; N18.9 - Chronic kidney disease, unspecified Status: Acute (3) Acute metabolic encephalopathy Code(s): G93.41 - Metabolic encephalopathy Status: Resolved (4) Altered mental status Code(s): R41.82 - Altered mental status, unspecified Status: Resolved (5) Obesity Code(s): E66.9 - Obesity, unspecified Status: Chronic - Plan Acute on chronic hypercapnic respiratory insufficiency, on home oxygen. PMH COPD , Obstructive sleep apnea Status post treatment of MRSA pneumonia -Pulmonology following -CPAP as needed, DuoNebs CHF, not in exacerbation, CAD s/p CABG. echo from September showed EF 55-60% On ASA, Amiodarone 200mg BID, Coreg 12.5mg BID, Clonidine 0.1mg Q8, Plavix 75mg daily -Continue Lasix 40 mg twice daily Hypertension Stable BP -Continue carvedilol, clonidine Diabetes -Supplemental sliding scale -Levemir 10 units twice daily- good readings - changed to regular diet- as patient requested - monitor sugars Right foot pain/swelling - Resolved - xrays of the right foot - negative- - consider podiatry consult if recurs Scrotal pain- improved Per Dr. Woodruff likely from anasarca. Ultrasound noted. Hypotestosteronism Impression: 02/23 total testosterone was 13, free 0.14; s/p 100mg injection. Repeat total testosterone 451/free testosterone 14.4 03/27 Left upper and lower extremity weakness- improved Impression: Head CT on 02/25 shows no acute changes. CT of the neck shows C6-[address] of lumbar spine shows L3-4 herniation with L3 nerve root impingement Per NS, the disc herniation is nonsurgical. S/P course steroids Morbid obesity/debility: -PT daily to mobilize the patient more. Discussed about obtaining a regular mattress to help him mobilize more. -Slowly improving Insomnia -Continue Trazodone 100mg HS -Continue PRN Zolpidem -Continue HS Melatonin Constipation; laxatives/ enema as needed. heartburn; Maalox as needed. DVT prophylaxis: Lovenox Discharge Planning: awaiting placement. (1) Respiratory failure with hypoxia and hypercapnia Qualifiers: Chronicity: chronic Qualified Code(s): J96.11 - Chronic respiratory failure with hypoxia; J96.12 - Chronic respiratory failure with hypercapnia
[2018-04-20] MEDS: Enoxaparin Inj 40 MG/0.4 ML Syringe SQ SCH (18:18)
[2018-04-20] MEDS: Zolpidem Tartrate 5 MG Tablet PO PRN (22:02)
[2018-04-20] MEDS: traZODone 50 MG Tablet PO SCH (22:02)
[2018-04-21] MEDS: LORazepam 1 MG Tablet PO PRN ×3 (00:27→17:20)
[2018-04-21] MEDS: Nystatin 100,000 UNITS/GM Powder 15 GM Bottle TOPICAL SCH ×3 (06:14→21:36)
[2018-04-21] MEDS: Furosemide 40 MG Tablet PO SCH ×2 (10:30→21:36)
[2018-04-21] MEDS: Allopurinol 100 MG Tablet PO SCH (10:30)
[2018-04-21] MEDS: Carvedilol 12.5 MG Tablet PO SCH ×2 (10:30→21:36)
[2018-04-21] MEDS: Famotidine 20 MG Tablet PO SCH ×2 (10:31→21:36)
[2018-04-21] MEDS: Aspirin 325 MG Tablet PO SCH (10:31)
[2018-04-21] MEDS: Amiodarone 200 MG Tablet PO SCH ×2 (10:31→21:36)
[2018-04-21] MEDS: guaiFENesin 600 MG ER Tablet PO SCH ×2 (10:31→21:35)
[2018-04-21] MEDS: Senna/Docusate Sodium 8.6/50 MG Tablet PO SCH ×2 (10:31→21:35)
[2018-04-21] MEDS: Calamine/Pramoxine Lotion 180 ML Bottle TOPICAL SCH ×2 (10:32→21:36)
[2018-04-21] MEDS: Sodium Chloride 0.65% Nasal Drops/Spray 30 ML Bottle EACH NARE SCH ×2 (10:32→21:36)
[2018-04-21] MEDS: Insulin NovoLOG Aspart Correctional Sugar Inj SQ SCH ×4 (10:32→23:56)
[2018-04-21] MEDS: Psyllium Husk SF 3.4 GM in 5.8 GM Packet PO SCH ×2 (10:33→21:37)
[2018-04-21] MEDS: Lactic Acid (Ammonium Lactate) 12% Lotion 225 GM Bottle TOPICAL SCH ×2 (10:33→23:56)
[2018-04-21] MEDS: Insulin Detemir Inj 1,000 UNIT/10 ML Vial SQ SCH ×2 (10:33→21:37)
[2018-04-21] MEDS: Polyethylene Glycol 3350 17 GM Packet PO SCH (10:33)
[2018-04-21] MEDS: Gabapentin 100 MG Capsule PO SCH ×3 (10:34→17:21)
--- NOTE | 2018-04-21 10:50 | P.PNIM ---
Subjective Interval history: in no acute distress. no new complaints. Physical Exam Vital signs: Vital Signs 04/20/18 12:00 04/20/18 16:00 04/20/18 20:00 Temperature 97.8 F 98.3 F 97.6 F Pulse Rate 57 L 63 63 Respiratory Rate 18 18 18 Blood Pressure 106/55 L 110/58 L 126/76 Pulse Oximetry 98 96 97 04/20/18 20:19 04/21/18 00:00 04/21/18 04:00 Temperature 97.3 F L 97.5 F L Pulse Rate 64 54 L 62 Respiratory Rate 18 18 18 Blood Pressure 106/58 L 114/55 L Pulse Oximetry 98 100 98 04/21/18 07:29 Temperature Pulse Rate 59 L Respiratory Rate 12 Blood Pressure Pulse Oximetry 98 Intake & Output 04/20/18 04/21/18 04/21/18 18:59 06:59 18:59 Intake Total 720 / 720 720 / 720 Balance 720 / 720 720 / 720 Weight 142.7 kg Intake: Oral 720 / 720 720 / 720 Other: # Voids 4 # Incontinent Voids 4 Date of Last Bowel Movement 04/20/18 - Constitutional no acute distress - Routine Respiratory Exam Present: CTA bilaterally - Routine Cardiovascular Exam Present: RRR - Routine Abdominal Exam Present: soft Results - Labs CBC & Chem 7: 04/10/18 10:25 04/10/18 08:45 Laboratory Results - last 24 hr 04/20/18 04/20/18 04/20/18 11:49 17:12 21:41 POC Glucose 194 H 128 H 163 H 04/21/18 08:45 POC Glucose 108 Assessment and Plan - Assessment (1) Respiratory failure with hypoxia and hypercapnia Code(s): J96.91 - Respiratory failure, unspecified with hypoxia; J96.92 - Respiratory failure, unspecified with hypercapnia Status: Acute (2) Acute kidney injury superimposed on CKD Code(s): N17.9 - Acute kidney failure, unspecified; N18.9 - Chronic kidney disease, unspecified Status: Acute (3) Acute metabolic encephalopathy Code(s): G93.41 - Metabolic encephalopathy Status: Resolved (4) Altered mental status Code(s): R41.82 - Altered mental status, unspecified Status: Resolved (5) Obesity Code(s): E66.9 - Obesity, unspecified Status: Chronic - Plan Acute on chronic hypercapnic respiratory insufficiency, on home oxygen. PMH COPD , Obstructive sleep apnea Status post treatment of MRSA pneumonia -Pulmonology following -CPAP as needed, DuoNebs CHF, not in exacerbation, CAD s/p CABG. echo from September showed EF 55-60% On ASA, Amiodarone 200mg BID, Coreg 12.5mg BID, Clonidine 0.1mg Q8, Plavix 75mg daily -Continue Lasix 40 mg twice daily Hypertension Stable BP -Continue carvedilol, clonidine Diabetes -Supplemental sliding scale -Levemir 10 units twice daily- good readings - changed to regular diet- as patient requested - monitor sugars Right foot pain/swelling - Resolved - xrays of the right foot - negative- - consider podiatry consult if recurs Scrotal pain- improved Per Dr. Woodruff likely from anasarca. Ultrasound noted. Hypotestosteronism Impression: 02/23 total testosterone was 13, free 0.14; s/p 100mg injection. Repeat total testosterone 451/free testosterone 14.4 03/27 Left upper and lower extremity weakness- improved Impression: Head CT on 02/25 shows no acute changes. CT of the neck shows C6-[address] of lumbar spine shows L3-4 herniation with L3 nerve root impingement Per NS, the disc herniation is nonsurgical. S/P course steroids Morbid obesity/debility: -PT daily to mobilize the patient more. Discussed about obtaining a regular mattress to help him mobilize more. -Slowly improving Insomnia -Continue Trazodone 100mg HS -Continue PRN Zolpidem -Continue HS Melatonin Constipation; laxatives/ enema as needed. heartburn; Maalox as needed. DVT prophylaxis: Lovenox Discharge Planning: awaiting placement. (1) Respiratory failure with hypoxia and hypercapnia Qualifiers: Chronicity: chronic Qualified Code(s): J96.11 - Chronic respiratory failure with hypoxia; J96.12 - Chronic respiratory failure with hypercapnia
[2018-04-21] MEDS: Enoxaparin Inj 40 MG/0.4 ML Syringe SQ SCH (18:03)
[2018-04-21] MEDS: traZODone 50 MG Tablet PO SCH (21:35)
[2018-04-21] MEDS: Zolpidem Tartrate 5 MG Tablet PO PRN (21:36)
[2018-04-21] MEDS: Acetaminophen 325 MG Tablet PO PRN (21:44)
[2018-04-22] MEDS: LORazepam 1 MG Tablet PO PRN ×4 (00:44→21:39)
[2018-04-22] MEDS: Nystatin 100,000 UNITS/GM Powder 15 GM Bottle TOPICAL SCH ×3 (06:33→21:44)
[2018-04-22] MEDS: Insulin NovoLOG Aspart Correctional Sugar Inj SQ SCH ×4 (10:20→21:40)
[2018-04-22] MEDS: Carvedilol 12.5 MG Tablet PO SCH ×2 (10:21→21:39)
[2018-04-22] MEDS: Amiodarone 200 MG Tablet PO SCH ×2 (10:21→21:39)
[2018-04-22] MEDS: Insulin Detemir Inj 1,000 UNIT/10 ML Vial SQ SCH ×2 (10:21→21:40)
[2018-04-22] MEDS: Furosemide 40 MG Tablet PO SCH ×2 (10:22→21:39)
[2018-04-22] MEDS: Senna/Docusate Sodium 8.6/50 MG Tablet PO SCH ×2 (10:22→21:39)
[2018-04-22] MEDS: Famotidine 20 MG Tablet PO SCH ×2 (10:22→21:40)
[2018-04-22] MEDS: Lactic Acid (Ammonium Lactate) 12% Lotion 225 GM Bottle TOPICAL SCH ×2 (10:22→21:40)
[2018-04-22] MEDS: Calamine/Pramoxine Lotion 180 ML Bottle TOPICAL SCH ×2 (10:23→21:40)
[2018-04-22] MEDS: Sodium Chloride 0.65% Nasal Drops/Spray 30 ML Bottle EACH NARE SCH ×2 (10:23→21:40)
[2018-04-22] MEDS: Allopurinol 100 MG Tablet PO SCH (10:23)
[2018-04-22] MEDS: guaiFENesin 600 MG ER Tablet PO SCH ×2 (10:23→21:39)
[2018-04-22] MEDS: Aspirin 325 MG Tablet PO SCH (10:24)
[2018-04-22] MEDS: Psyllium Husk SF 3.4 GM in 5.8 GM Packet PO SCH ×2 (10:24→21:40)
[2018-04-22] MEDS: Gabapentin 100 MG Capsule PO SCH ×3 (10:25→17:49)
[2018-04-22] MEDS: Polyethylene Glycol 3350 17 GM Packet PO SCH (10:25)
--- NOTE | 2018-04-22 11:30 | P.PNIM ---
Subjective Interval history: in no acute distress. no new complaints. Physical Exam Vital signs: Vital Signs 04/21/18 12:00 04/21/18 16:00 04/21/18 17:47 Temperature 98.4 F 98.1 F Pulse Rate 54 L 57 L 57 L Respiratory Rate 20 20 12 Blood Pressure 99/50 L 98/61 L Pulse Oximetry 95 98 04/21/18 20:00 04/21/18 22:11 04/22/18 03:03 Temperature 98.6 F 98.2 F Pulse Rate 61 61 78 Respiratory Rate 18 16 16 Blood Pressure 127/59 L 134/68 Pulse Oximetry 96 98 100 04/22/18 09:09 Temperature Pulse Rate 56 L Respiratory Rate 12 Blood Pressure Pulse Oximetry 99 Intake & Output 04/21/18 04/22/18 04/22/18 18:59 06:59 18:59 Intake Total 720 / 720 Output Total 150 / 150 Balance 720 / 720 -150 / -150 Weight 142.7 kg Intake: Oral 720 / 720 Output: Urine 150 / 150 Other: Post Void Residual 1 # Incontinent Voids 6 Date of Last Bowel Movement 04/20/18 04/21/19 - Constitutional no acute distress - Routine Respiratory Exam Present: CTA bilaterally - Routine Cardiovascular Exam Present: RRR - Routine Abdominal Exam Present: soft - Routine Extremities Exam Comments: bilateral pedal edema. - Routine Neurological Exam Present: alert, oriented X3 Results - Labs CBC & Chem 7: 04/10/18 10:25 04/10/18 08:45 Laboratory Results - last 24 hr 04/21/18 04/21/18 04/21/18 11:49 17:30 21:24 POC Glucose 167 H 148 H 162 H 04/22/18 08:15 POC Glucose 125 H Assessment and Plan - Assessment (1) Respiratory failure with hypoxia and hypercapnia Code(s): J96.91 - Respiratory failure, unspecified with hypoxia; J96.92 - Respiratory failure, unspecified with hypercapnia Status: Acute (2) Acute kidney injury superimposed on CKD Code(s): N17.9 - Acute kidney failure, unspecified; N18.9 - Chronic kidney disease, unspecified Status: Acute (3) Acute metabolic encephalopathy Code(s): G93.41 - Metabolic encephalopathy Status: Resolved (4) Altered mental status Code(s): R41.82 - Altered mental status, unspecified Status: Resolved (5) Obesity Code(s): E66.9 - Obesity, unspecified Status: Chronic - Plan Acute on chronic hypercapnic respiratory insufficiency, on home oxygen. PMH COPD , Obstructive sleep apnea Status post treatment of MRSA pneumonia -Pulmonology following -CPAP as needed, DuoNebs CHF, not in exacerbation, CAD s/p CABG. echo from September showed EF 55-60% On ASA, Amiodarone 200mg BID, Coreg 12.5mg BID, Clonidine 0.1mg Q8, Plavix 75mg daily -Continue Lasix 40 mg twice daily Hypertension Stable BP -Continue carvedilol, clonidine Diabetes -Supplemental sliding scale -Levemir 10 units twice daily- - changed to regular diet- as patient requested - monitor sugars Right foot pain/swelling - Resolved - xrays of the right foot - negative- - consider podiatry consult if recurs Scrotal pain- improved Per Dr. Woodruff likely from anasarca. Ultrasound noted. Hypotestosteronism Impression: 02/23 total testosterone was 13, free 0.14; s/p 100mg injection. Repeat total testosterone 451/free testosterone 14.4 03/27 Left upper and lower extremity weakness- improved Impression: Head CT on 02/25 shows no acute changes. CT of the neck shows C6-[address] of lumbar spine shows L3-4 herniation with L3 nerve root impingement Per NS, the disc herniation is nonsurgical. S/P course steroids Morbid obesity/debility: -PT daily to mobilize the patient more. Discussed about obtaining a regular mattress to help him mobilize more. -Slowly improving Insomnia -Continue Trazodone 100mg HS -Continue PRN Zolpidem -Continue HS Melatonin Constipation; laxatives/ enema as needed. heartburn; Maalox as needed. DVT prophylaxis: Lovenox Discharge Planning: awaiting placement. (1) Respiratory failure with hypoxia and hypercapnia Qualifiers: Chronicity: chronic Qualified Code(s): J96.11 - Chronic respiratory failure with hypoxia; J96.12 - Chronic respiratory failure with hypercapnia
[2018-04-22] MEDS: Enoxaparin Inj 40 MG/0.4 ML Syringe SQ SCH (17:50)
[2018-04-22] MEDS: traZODone 50 MG Tablet PO SCH (21:39)
[2018-04-22] MEDS: Zolpidem Tartrate 5 MG Tablet PO PRN (22:43)
[2018-04-23] MEDS: LORazepam 1 MG Tablet PO PRN ×3 (04:10→18:44)
[2018-04-23] MEDS: Senna/Docusate Sodium 8.6/50 MG Tablet PO SCH ×2 (08:47→21:36)
[2018-04-23] MEDS: Furosemide 40 MG Tablet PO SCH ×2 (08:47→21:36)
[2018-04-23] MEDS: guaiFENesin 600 MG ER Tablet PO SCH ×2 (08:47→21:36)
[2018-04-23] MEDS: Famotidine 20 MG Tablet PO SCH ×2 (08:47→21:36)
[2018-04-23] MEDS: Carvedilol 12.5 MG Tablet PO SCH ×2 (08:47→21:36)
[2018-04-23] MEDS: Aspirin 325 MG Tablet PO SCH (08:48)
[2018-04-23] MEDS: Allopurinol 100 MG Tablet PO SCH (08:48)
[2018-04-23] MEDS: Amiodarone 200 MG Tablet PO SCH ×2 (08:49→21:36)
[2018-04-23] MEDS: Calamine/Pramoxine Lotion 180 ML Bottle TOPICAL SCH ×2 (08:49→21:42)
[2018-04-23] MEDS: Insulin NovoLOG Aspart Correctional Sugar Inj SQ SCH ×4 (08:49→22:11)
[2018-04-23] MEDS: Sodium Chloride 0.65% Nasal Drops/Spray 30 ML Bottle EACH NARE SCH ×2 (08:49→21:38)
[2018-04-23] MEDS: Gabapentin 100 MG Capsule PO SCH ×3 (08:49→17:33)
[2018-04-23] MEDS: Lactic Acid (Ammonium Lactate) 12% Lotion 225 GM Bottle TOPICAL SCH ×2 (08:50→21:42)
[2018-04-23] MEDS: Insulin Detemir Inj 1,000 UNIT/10 ML Vial SQ SCH ×2 (08:50→22:12)
[2018-04-23] MEDS: Polyethylene Glycol 3350 17 GM Packet PO SCH (08:50)
[2018-04-23] MEDS: Psyllium Husk SF 3.4 GM in 5.8 GM Packet PO SCH ×2 (08:51→21:42)
[2018-04-23] MEDS: Nystatin 100,000 UNITS/GM Powder 15 GM Bottle TOPICAL SCH ×2 (13:16→21:38)
[2018-04-23] MEDS: Enoxaparin Inj 40 MG/0.4 ML Syringe SQ SCH (17:33)
--- NOTE | 2018-04-23 17:33 | P.PN ---
Subjective Interval history: in no acute distress. c/o intermitted indigestion SOB in the smaller bed Physical Exam Vital signs: Vital Signs 04/22/18 19:52 04/22/18 20:45 04/23/18 00:00 Temperature 98.0 F 97.5 F L Pulse Rate 57 L 60 58 L Respiratory Rate 20 16 20 Blood Pressure 113/61 117/60 Pulse Oximetry 99 96 04/23/18 04:00 04/23/18 08:00 04/23/18 08:20 Temperature 97.9 F 97.8 F Pulse Rate 58 L 56 L 55 L Respiratory Rate 20 17 22 Blood Pressure 116/58 L 115/64 Pulse Oximetry 97 99 99 04/23/18 12:00 04/23/18 15:39 04/23/18 17:09 Temperature 97.8 F 98.1 F Pulse Rate 55 L 64 62 Respiratory Rate 17 18 16 Blood Pressure 117/56 L 116/64 Pulse Oximetry 98 93 L Intake & Output 04/22/18 04/23/18 04/23/18 18:59 06:59 18:59 Intake Total 560 / 560 480 / 480 Balance 560 / 560 480 / 480 Weight 143 kg Intake: Oral 560 / 560 480 / 480 Other: # Voids 6 # Incontinent Voids 6 Date of Last Bowel Movement 04/21/19 04/22/18 # Incontinent Bowel Movements 0 Narrative: GENERAL: This is a morbidly obese, well-developed patient, in no apparent distress. CARDIOVASCULAR: Regular rate and rhythm RESPIRATORY: Clear to auscultation. Breath sounds equal bilaterally. GASTROINTESTINAL: Abdomen soft, non-tender, nondistended. Normal active bowel sounds MUSCULOSKELETAL: Extremities without clubbing, cyanosis. edema 1-2+ NEURO: Alert & Oriented x4 to person, place, time, situation. Moves all ext x4 Results - Labs CBC & Chem 7: 04/10/18 10:25 04/10/18 08:45 Laboratory Results - last 24 hr 04/22/18 04/23/18 04/23/18 21:27 07:22 11:40 POC Glucose 145 H 177 H 125 H Assessment and Plan - Plan Acute on chronic hypercapnic respiratory insufficiency, on home oxygen. PMH COPD , Obstructive sleep apnea Status post treatment of MRSA pneumonia -Pulmonology following -CPAP as needed, DuoNebs - 04/23 c/o mild SOB order CXR CHF, not in exacerbation, CAD s/p CABG. echo from September showed EF 55-60% On ASA, Amiodarone 200mg BID, Coreg 12.5mg BID, Clonidine 0.1mg Q8, Plavix 75mg daily -Continue Lasix 40 mg twice daily Hypertension Stable BP -Continue carvedilol, clonidine Diabetes -Supplemental sliding scale -Levemir 10 units twice daily- - changed to regular diet- as patient requested - monitor sugars Right foot pain/swelling - Resolved - xrays of the right foot - negative- - consider podiatry consult if recurs Scrotal pain- improved Per Dr. Woodruff likely from anasarca. Ultrasound noted. Hypotestosteronism Impression: 02/23 total testosterone was 13, free 0.14; s/p 100mg injection. Repeat total testosterone 451/free testosterone 14.4 03/27 Left upper and lower extremity weakness- improved Impression: Head CT on 02/25 shows no acute changes. CT of the neck shows C6-[address] of lumbar spine shows L3-4 herniation with L3 nerve root impingement Per NS, the disc herniation is nonsurgical. S/P course steroids Morbid obesity/debility: -PT daily to mobilize the patient more. Discussed about obtaining a regular mattress to help him mobilize more. -Slowly improving Insomnia -Continue Trazodone 100mg HS -Continue PRN Zolpidem -Continue HS Melatonin Constipation; laxatives/ enema as needed. heartburn; Maalox and tums as needed. DVT prophylaxis: Lovenox Discharge Planning: awaiting placement. discussed with Dr. Valente
--- NOTE | 2018-04-23 18:51 | XR ---
EXAM DATE: 04/23/2018 6:34 PM EDT AGE/SEX: 57 years / Male INDICATIONS: Cough and shortness of breath. CLINICAL DATA: This is the patient's subsequent encounter. Patient reports that signs and symptoms h ave been present for 3 days and indicates a pain score of 0/10. MEDICAL/SURGICAL HISTORY: Hypertension. Chronic obstructive pulmonary disease. Congestive hea rt failure. Diabetes. Asthma. CABG. Pacemaker. COMPARISON: [facility] – [place], [place] SINGLE AP, 02/05/2018. . FINDINGS: Previous sternotomy. Basilar airspace disease, left greater than right and possible small left effusi on. No pneumothorax. Pacer lead unchanged. CONCLUSION: Basilar airspace disease predominantly on the left side. Differential diagnosis includes atelectasis and pneumonia. Electronically signed by: Silvino Duke MD 04/23/2018 6:50 PM EDT
--- NOTE | 2018-04-23 19:08 | P.PNPL ---
Subjective Interval history: 57 YO Obese male with TANA On Nasal cannula no new complaint Works with PT Does't use CPAP Physical Exam Vital signs: Vital Signs 04/22/18 19:52 04/22/18 20:45 04/23/18 00:00 Temperature 98.0 F 97.5 F L Pulse Rate 57 L 60 58 L Respiratory Rate 20 16 20 Blood Pressure 113/61 117/60 Pulse Oximetry 99 96 04/23/18 04:00 04/23/18 08:00 04/23/18 08:20 Temperature 97.9 F 97.8 F Pulse Rate 58 L 56 L 55 L Respiratory Rate 20 17 22 Blood Pressure 116/58 L 115/64 Pulse Oximetry 97 99 99 04/23/18 12:00 04/23/18 15:39 04/23/18 17:09 Temperature 97.8 F 98.1 F Pulse Rate 55 L 64 62 Respiratory Rate 17 18 16 Blood Pressure 117/56 L 116/64 Pulse Oximetry 98 93 L Intake & Output 04/23/18 04/23/18 04/24/18 06:59 18:59 06:59 Intake Total 480 / 480 750 / 750 Balance 480 / 480 750 / 750 Weight 143 kg Intake: Oral 480 / 480 750 / 750 Other: # Incontinent Voids 6 4 Date of Last Bowel Movement 04/22/18 # Bowel Movements 0 # Incontinent Bowel Movements 0 GENERAL: Obese WM,NAD SKIN: Warm and dry. HEAD: Normocephalic. EYES: No scleral icterus. No injection or drainage. NECK: Supple, trachea midline. No JVD or lymphadenopathy. CARDIOVASCULAR: Regular rate and rhythm without murmurs, gallops, or rubs. RESPIRATORY: Breath sounds equal bilaterally. No accessory muscle use. GASTROINTESTINAL: Abdomen soft, non-tender, nondistended. MUSCULOSKELETAL: No cyanosis, or edema. BACK: Nontender without obvious deformity. No CVA tenderness. Assessment and Plan - Plan IMPRESSION: TANA COPD CHF Morbid obesity Gen Weakness/ deconditioning PLAN: Supplement 02 Diurease Aerosol nebs Physical therapy. Encourage to use CPAP Stable from Pulm standpoint
[2018-04-23] MEDS: traZODone 50 MG Tablet PO SCH (21:36)
[2018-04-23] MEDS: Zolpidem Tartrate 5 MG Tablet PO PRN (21:36)
[2018-04-24] MEDS: LORazepam 1 MG Tablet PO PRN ×4 (02:01→22:33)
[2018-04-24] MEDS: Nystatin 100,000 UNITS/GM Powder 15 GM Bottle TOPICAL SCH ×4 (06:00→22:43)
[2018-04-24] MEDS: Allopurinol 100 MG Tablet PO SCH (08:06)
[2018-04-24] MEDS: Carvedilol 12.5 MG Tablet PO SCH ×2 (08:07→21:54)
[2018-04-24] MEDS: Senna/Docusate Sodium 8.6/50 MG Tablet PO SCH ×2 (08:07→21:55)
[2018-04-24] MEDS: Amiodarone 200 MG Tablet PO SCH ×2 (08:07→21:55)
[2018-04-24] MEDS: guaiFENesin 600 MG ER Tablet PO SCH ×2 (08:07→21:55)
[2018-04-24] MEDS: Aspirin 325 MG Tablet PO SCH (08:07)
[2018-04-24] MEDS: Insulin Detemir Inj 1,000 UNIT/10 ML Vial SQ SCH ×2 (08:08→22:01)
[2018-04-24] MEDS: Psyllium Husk SF 3.4 GM in 5.8 GM Packet PO SCH ×2 (08:08→21:56)
[2018-04-24] MEDS: Lactic Acid (Ammonium Lactate) 12% Lotion 225 GM Bottle TOPICAL SCH ×2 (08:08→21:57)
[2018-04-24] MEDS: Furosemide 40 MG Tablet PO SCH ×2 (08:08→21:55)
[2018-04-24] MEDS: Gabapentin 100 MG Capsule PO SCH ×3 (08:09→17:04)
[2018-04-24] MEDS: Polyethylene Glycol 3350 17 GM Packet PO SCH (08:09)
[2018-04-24] MEDS: Famotidine 20 MG Tablet PO SCH ×2 (08:09→21:55)
[2018-04-24] MEDS: Insulin NovoLOG Aspart Correctional Sugar Inj SQ SCH ×4 (08:10→22:34)
[2018-04-24] MEDS: Sodium Chloride 0.65% Nasal Drops/Spray 30 ML Bottle EACH NARE SCH ×2 (08:11→21:57)
[2018-04-24] MEDS: Calamine/Pramoxine Lotion 180 ML Bottle TOPICAL SCH ×2 (08:12→22:00)
[2018-04-24 10:50] LABS: Baso # (Auto) 0.1 th/mm3 (0.0-0.2); Baso % (Auto) 1.1 % (0.0-2.0); Eos # (Auto) 0.3 th/mm3 (0.0-0.4); Hematocrit 28.5 % (39.0-51.0); Hemoglobin 8.8 gm/dL (13.0-17.0); Lymph # (Auto) 1.3 th/mm3 (1.0-4.8); Lymph % (Auto) 24.2 % (9.0-44.0); Mean Corpuscular Hemoglobin 25.8 pg (27.0-34.0); Mean Corpuscular Volume 83.6 fL (80.0-100.0); Mean Platelet Volume 8.1 fL (7.0-11.0); Mono # (Auto) 0.5 th/mm3 (0.0-0.9); Mono % (Auto) 8.8 % (0.0-8.0); Neut # (Auto) 3.3 th/mm3 (1.8-7.7); Neut % (Auto) 60.9 % (16.0-70.0); Platelet Count 187 th/mm3 (150-450); Red Blood Count 3.41 mil/mm3 (4.50-5.90); Red Cell Distribution Width 16.5 % (11.6-17.2); White Blood Count 5.5 th/mm3 (4.0-11.0)
[2018-04-24 11:10] LABS: Mean Corpuscular HGB Conc 30.8 % (32.0-36.0)
--- NOTE | 2018-04-24 12:15 | P.PN ---
Subjective Interval history: in no acute distress. indigestion resolved offers no other complaints at this time Physical Exam Vital signs: Vital Signs 04/23/18 15:39 04/23/18 17:09 04/23/18 20:00 Temperature 98.1 F 98.1 F Pulse Rate 64 62 59 L Respiratory Rate 18 16 18 Blood Pressure 116/64 109/59 L Pulse Oximetry 93 L 96 04/23/18 20:41 04/23/18 22:30 04/24/18 00:00 Temperature 98.2 F Pulse Rate 58 L 58 L Respiratory Rate 18 20 18 Blood Pressure 118/59 L Pulse Oximetry 98 96 04/24/18 06:00 04/24/18 08:00 04/24/18 08:30 Temperature 97.9 F 97.7 F Pulse Rate 56 L 55 L 58 L Respiratory Rate 18 20 17 Blood Pressure 108/56 L 105/51 L Pulse Oximetry 99 98 98 Intake & Output 04/23/18 04/24/18 04/24/18 18:59 06:59 18:59 Intake Total 750 / 750 Balance 750 / 750 Intake: Oral 750 / 750 Other: # Incontinent Voids 4 5 Date of Last Bowel Movement 04/22/18 04/22/18 04/22/18 # Bowel Movements 0 Narrative: GENERAL: This is a morbidly obese, well-developed patient, in no apparent distress. CARDIOVASCULAR: Regular rate and rhythm RESPIRATORY: difficult to auscultated due to body habitus clear through out GASTROINTESTINAL: Abdomen soft, non-tender, nondistended. Normal active bowel sounds MUSCULOSKELETAL: Extremities without clubbing, cyanosis. edema 1-2+ NEURO: Alert & Oriented x4 to person, place, time, situation. Moves all ext x4 Results - Labs CBC & Chem 7: 04/24/18 10:19 04/10/18 08:45 Laboratory Results - last 24 hr 04/23/18 04/24/18 04/24/18 21:59 07:32 10:19 WBC 5.5 RBC 3.41 L Hgb 8.8 L Hct 28.5 L MCV 83.6 MCH 25.8 L MCHC 30.8 L RDW 16.5 Plt Count 187 MPV 8.1 Neut % (Auto) 60.9 Lymph % (Auto) 24.2 Norton % (Auto) 8.8 H Eos % (Auto) 5.0 H Baso % (Auto) 1.1 Neut # (Auto) 3.3 Lymph # (Auto) 1.3 Norton # (Auto) 0.5 Eos # (Auto) 0.3 Baso # (Auto) 0.1 WBC Differential . Differential Comment Auto diff final POC Glucose 109 136 H 04/24/18 11:16 WBC RBC Hgb Hct MCV MCH MCHC RDW Plt Count MPV Neut % (Auto) Lymph % (Auto) Norton % (Auto) Eos % (Auto) Baso % (Auto) Neut # (Auto) Lymph # (Auto) Norton # (Auto) Eos # (Auto) Baso # (Auto) WBC Differential Differential Comment POC Glucose 146 H - Imaging Impressions Chest X-Ray 04/23/18 00:00 CONCLUSION: Basilar airspace disease predominantly on the left side. Differential diagnosis includes atelectasis and pneumonia. Assessment and Plan - Plan Acute on chronic hypercapnic respiratory insufficiency, on home oxygen. PMH COPD , Obstructive sleep apnea Status post treatment of MRSA pneumonia -Pulmonology following -CPAP as needed, SmithoNebs - 04/23 CXR reviewed: Basilar airspace disease predominantly on the left side. Differential diagnosis includes atelectasis and pneumonia. - added IS encouraged use - WBC 5.5, neutrophils 60.9, afebrile CHF, not in exacerbation, CAD s/p CABG. echo from September showed EF 55-60% On ASA, Amiodarone 200mg BID, Coreg 12.5mg BID, Clonidine 0.1mg Q8, Plavix 75mg daily -Continue Lasix 40 mg twice daily Hypertension Stable BP -Continue carvedilol, clonidine Diabetes -Supplemental sliding scale -Levemir 10 units twice daily- - changed to regular diet- as patient requested - monitor sugars Right foot pain/swelling - Resolved - xrays of the right foot - negative- - consider podiatry consult if recurs Scrotal pain- improved Per Dr. Woodruff likely from anasarca. Ultrasound noted. Hypotestosteronism Impression: 02/23 total testosterone was 13, free 0.14; s/p 100mg injection. Repeat total testosterone 451/free testosterone 14.4 03/27 Left upper and lower extremity weakness- improved Impression: Head CT on 02/25 shows no acute changes. CT of the neck shows C6-[address] of lumbar spine shows L3-4 herniation with L3 nerve root impingement Per NS, the disc herniation is nonsurgical. S/P course steroids Morbid obesity/debility: -PT daily to mobilize the patient more. Discussed about obtaining a regular mattress to help him mobilize more. -Slowly improving Insomnia -Continue Trazodone 100mg HS -Continue PRN Zolpidem -Continue HS Melatonin Constipation; laxatives/ enema as needed. heartburn; Maalox and tums as needed. DVT prophylaxis: Lovenox Discharge Planning: awaiting placement. discussed with Dr. Choe
[2018-04-24] MEDS: Enoxaparin Inj 40 MG/0.4 ML Syringe SQ SCH (17:40)
--- NOTE | 2018-04-24 19:24 | P.PNPL ---
Subjective Interval history: 57 YO Obese male with TANA On Nasal cannula no new complaint Works with PT Does't use CPAP Physical Exam Vital signs: Vital Signs 04/23/18 20:00 04/23/18 20:41 04/23/18 22:30 Temperature 98.1 F Pulse Rate 59 L 58 L Respiratory Rate 18 18 20 Blood Pressure 109/59 L Pulse Oximetry 96 98 04/24/18 00:00 04/24/18 06:00 04/24/18 08:00 Temperature 98.2 F 97.9 F 97.7 F Pulse Rate 58 L 56 L 55 L Respiratory Rate 18 18 20 Blood Pressure 118/59 L 108/56 L 105/51 L Pulse Oximetry 96 99 98 04/24/18 08:30 04/24/18 12:00 04/24/18 15:11 Temperature 98.1 F Pulse Rate 58 L 55 L 58 L Respiratory Rate 17 20 17 Blood Pressure 122/57 L Pulse Oximetry 98 95 04/24/18 16:00 Temperature 97.6 F Pulse Rate 58 L Respiratory Rate 20 Blood Pressure 119/59 L Pulse Oximetry 96 Intake & Output 04/24/18 04/24/18 04/25/18 06:59 18:59 06:59 Intake Total 600 / 600 Balance 600 / 600 Intake: Oral 600 / 600 Other: # Voids 4 # Incontinent Voids 5 Date of Last Bowel Movement 04/22/18 04/22/18 # Bowel Movements 0 GENERAL: Obese WM, NAD SKIN: Warm and dry. HEAD: Normocephalic. EYES: No scleral icterus. No injection or drainage. NECK: Supple, trachea midline. No JVD or lymphadenopathy. CARDIOVASCULAR: Regular rate and rhythm without murmurs, gallops, or rubs. RESPIRATORY: Breath sounds equal bilaterally. No accessory muscle use. GASTROINTESTINAL: Abdomen soft, non-tender, nondistended. MUSCULOSKELETAL: No cyanosis, or edema. BACK: Nontender without obvious deformity. No CVA tenderness. GENERAL: SKIN: Warm and dry. HEAD: Normocephalic. EYES: No scleral icterus. No injection or drainage. NECK: Supple, trachea midline. No JVD or lymphadenopathy. CARDIOVASCULAR: Regular rate and rhythm without murmurs, gallops, or rubs. RESPIRATORY: Breath sounds equal bilaterally. No accessory muscle use. GASTROINTESTINAL: Abdomen soft, non-tender, nondistended. MUSCULOSKELETAL: No cyanosis, or edema. BACK: Nontender without obvious deformity. No CVA tenderness. Assessment and Plan - Plan IMPRESSION: TANA COPD CHF Morbid obesity Gen Weakness/ deconditioning PLAN: Supplement 02 Diurease Aerosol nebs Physical therapy. Encourage to use CPAP Stable from Pulm standpoint DC plans underway
[2018-04-24] MEDS: traZODone 50 MG Tablet PO SCH (21:54)
[2018-04-24] MEDS: Zolpidem Tartrate 5 MG Tablet PO PRN (22:33)
[2018-04-25] MEDS: Nystatin 100,000 UNITS/GM Powder 15 GM Bottle TOPICAL SCH ×3 (05:21→22:05)
[2018-04-25] MEDS: LORazepam 1 MG Tablet PO PRN ×4 (05:22→22:04)
[2018-04-25] MEDS: Insulin NovoLOG Aspart Correctional Sugar Inj SQ SCH ×4 (10:03→22:10)
[2018-04-25] MEDS: Insulin Detemir Inj 1,000 UNIT/10 ML Vial SQ SCH ×2 (10:03→22:09)
[2018-04-25] MEDS: Famotidine 20 MG Tablet PO SCH ×2 (10:04→22:02)
[2018-04-25] MEDS: Senna/Docusate Sodium 8.6/50 MG Tablet PO SCH ×2 (10:05→22:03)
[2018-04-25] MEDS: Amiodarone 200 MG Tablet PO SCH ×2 (10:05→22:03)
[2018-04-25] MEDS: guaiFENesin 600 MG ER Tablet PO SCH ×2 (10:05→22:03)
[2018-04-25] MEDS: Aspirin 325 MG Tablet PO SCH (10:05)
[2018-04-25] MEDS: Allopurinol 100 MG Tablet PO SCH (10:06)
[2018-04-25] MEDS: Gabapentin 100 MG Capsule PO SCH ×3 (10:06→18:08)
[2018-04-25] MEDS: Carvedilol 12.5 MG Tablet PO SCH ×2 (10:06→22:02)
[2018-04-25] MEDS: Furosemide 40 MG Tablet PO SCH ×2 (10:06→22:04)
[2018-04-25] MEDS: Calamine/Pramoxine Lotion 180 ML Bottle TOPICAL SCH ×2 (10:07→22:06)
[2018-04-25] MEDS: Polyethylene Glycol 3350 17 GM Packet PO SCH (10:07)
[2018-04-25] MEDS: Sodium Chloride 0.65% Nasal Drops/Spray 30 ML Bottle EACH NARE SCH ×2 (10:07→22:06)
[2018-04-25] MEDS: Lactic Acid (Ammonium Lactate) 12% Lotion 225 GM Bottle TOPICAL SCH ×2 (10:07→22:05)
[2018-04-25] MEDS: Psyllium Husk SF 3.4 GM in 5.8 GM Packet PO SCH ×2 (10:07→22:09)
--- NOTE | 2018-04-25 10:51 | P.PN ---
Subjective Interval history: Follow-up for chronic respiratory failure, morbid obesity, debility, awaiting placement. Patient complains of left anterior knee pain. He denies any recent fall or injury. He states he has been attempting ambulation with PT recently. Is also reporting persistent heartburn, unrelieved by Pepcid and Tums. He states he used to take omeprazole at home and this used to help. He states his breathing is at baseline, denies any worsening shortness of breath than usual. Denies any other medical complaints at this time. Physical Exam Vital signs: Vital Signs 04/24/18 12:00 04/24/18 15:11 04/24/18 16:00 Temperature 98.1 F 97.6 F Pulse Rate 55 L 58 L 58 L Respiratory Rate 20 17 20 Blood Pressure 122/57 L 119/59 L Pulse Oximetry 95 96 04/24/18 19:43 04/24/18 20:00 04/24/18 22:28 Temperature 98.8 F Pulse Rate 57 L 56 L 56 L Respiratory Rate 18 20 18 Blood Pressure 112/60 Pulse Oximetry 98 98 04/25/18 00:00 04/25/18 04:00 04/25/18 08:00 Temperature 97.8 F 98.2 F 97.9 F Pulse Rate 57 L 56 L 54 L Respiratory Rate 20 20 20 Blood Pressure 127/65 125/57 L 110/56 L Pulse Oximetry 98 98 99 Intake & Output 04/24/18 04/25/18 04/25/18 18:59 06:59 18:59 Intake Total 600 / 600 240 / 240 Output Total 800 / 800 Balance 600 / 600 -560 / -560 Weight 144 kg Intake: Oral 600 / 600 240 / 240 Output: Urine 800 / 800 Other: # Voids 4 Date of Last Bowel Movement 04/22/18 04/22/18 # Bowel Movements 0 1 Narrative: GENERAL: Well-nourished, well-developed morbidly obese male patient in [facility]. SKIN: Warm and dry. No rash. HEENT: Normocephalic. Atraumatic. Pupils equal and round. Mucous membranes pink and moist. CARDIOVASCULAR: Regular rate and rhythm. No murmur appreciated. RESPIRATORY: No accessory muscle use. Clear to auscultation. Breath sounds equal bilaterally. GASTROINTESTINAL: Abdomen soft, non-tender, nondistended. Normoactive bowel sounds x4. MUSCULOSKELETAL: No obvious deformities. Chronic bilateral lower extremity edema. Left anterior knee minimally tender to palpation, no erythema/edema, no palpable effusion, active ROM intact although flexion limited by body habitus. NEUROLOGICAL: Awake and alert. No obvious cranial nerve deficits. Motor grossly within normal limits. Moving all extremities spontaneously. Normal speech. Results - Labs CBC & Chem 7: 04/24/18 10:19 04/10/18 08:45 Laboratory Results - last 24 hr 04/23/18 04/24/18 04/24/18 16:50 10:19 11:16 WBC 5.5 RBC 3.41 L Hgb 8.8 L Hct 28.5 L MCV 83.6 MCH 25.8 L MCHC 30.8 L RDW 16.5 Plt Count 187 MPV 8.1 Neut % (Auto) 60.9 Lymph % (Auto) 24.2 Leslie % (Auto) 8.8 H Eos % (Auto) 5.0 H Baso % (Auto) 1.1 Neut # (Auto) 3.3 Lymph # (Auto) 1.3 Leslie # (Auto) 0.5 Eos # (Auto) 0.3 Baso # (Auto) 0.1 WBC Differential . Differential Comment Auto diff final POC Glucose 159 H 146 H 04/24/18 04/24/18 04/25/18 16:45 22:31 08:11 WBC RBC Hgb Hct MCV MCH MCHC RDW Plt Count MPV Neut % (Auto) Lymph % (Auto) Leslie % (Auto) Eos % (Auto) Baso % (Auto) Neut # (Auto) Lymph # (Auto) Leslie # (Auto) Eos # (Auto) Baso # (Auto) WBC Differential Differential Comment POC Glucose 144 H 152 H 124 H - Imaging Impressions Chest X-Ray 04/23/18 00:00 CONCLUSION: Basilar airspace disease predominantly on the left side. Differential diagnosis includes atelectasis and pneumonia. Knee X-Ray 04/25/18 00:00 CONCLUSION: No evidence of recent bony injury. Assessment and Plan - Assessment (1) Respiratory failure with hypoxia and hypercapnia Code(s): J96.91 - Respiratory failure, unspecified with hypoxia; J96.92 - Respiratory failure, unspecified with hypercapnia Status: Acute (2) Acute kidney injury superimposed on CKD Code(s): N17.9 - Acute kidney failure, unspecified; N18.9 - Chronic kidney disease, unspecified Status: Acute (3) Acute metabolic encephalopathy Code(s): G93.41 - Metabolic encephalopathy Status: Resolved (4) Altered mental status Code(s): R41.82 - Altered mental status, unspecified Status: Resolved (5) Obesity Code(s): E66.9 - Obesity, unspecified Status: Chronic - Plan Acute on chronic hypercapnic respiratory insufficiency, on home oxygen. PMH COPD , Obstructive sleep apnea. Does not tolerate CPAP mask due to the noise. Status post treatment of MRSA pneumonia -Pulmonology following -CPAP as needed, DuoNebs -04/23 CXR reviewed: Basilar airspace disease predominantly on the left side. Differential diagnosis includes atelectasis and pneumonia. - WBC 5.5, neutrophils 60.9, afebrile -added IS, encouraged use -appears at baseline CHF, not in exacerbation, CAD s/p CABG. echo from September showed EF 55-60% -On ASA, Amiodarone 200mg BID, Coreg 12.5mg BID, Clonidine 0.1mg Q8, Plavix 75mg daily -Continue Lasix 40 mg twice daily Hypertension -Stable BP -Continue carvedilol, clonidine Diabetes -Supplemental sliding scale -Levemir 10 units twice daily- -changed to regular diet- as patient requested - monitor sugars Scrotal pain- improved Per Dr. Woodruff likely from anasarca. Ultrasound noted. Hypotestosteronism -02/23 total testosterone was 13, free 0.14; s/p 100mg injection. Repeat total testosterone 451/free testosterone 14.4 03/27 Left upper and lower extremity weakness- improved -Head CT on 02/25 shows no acute changes. CT of the neck shows C6-[address] of lumbar spine shows L3-4 herniation with L3 nerve root impingement -Per NS, the disc herniation is nonsurgical. S/P course steroids Morbid obesity/debility: -PT daily to mobilize the patient more. -Slowly improving Insomnia -Continue Trazodone 100mg HS, PRN Zolpidem, HS Melatonin Constipation, chronic -laxatives/ enema as needed. Dyspepsia: acute -Pepcid, Maalox and tums as needed. -still no relief, added protonix Left Knee Pain: possible strain -check knee xray to rule out fracture DVT prophylaxis: Lovenox Discharge Planning: Awaiting placement. (1) Respiratory failure with hypoxia and hypercapnia Qualifiers: Chronicity: chronic Qualified Code(s): J96.11 - Chronic respiratory failure with hypoxia; J96.12 - Chronic respiratory failure with hypercapnia
--- NOTE | 2018-04-25 12:02 | XR ---
EXAM DATE: 04/25/2018 11:33 AM EDT AGE/SEX: 57 years / Male INDICATIONS: Left anterior knee pain. CLINICAL DATA: This is the patient's initial encounter. Patient reports that signs and symptoms have been present for 3 days and indicates a pain score of 7/10. MEDICAL/SURGICAL HISTORY: None. None. [place] [facility] [place]/20/2017. . FINDINGS: Bony structures are intact and in normal alignment. Joints are intact without dislocation or signifi cant arthropathy. Osseous density is normal. Soft tissues are unremarkable. No radiopaque foreign bodies seen. CONCLUSION: No evidence of recent bony injury. Electronically signed by: Stevan Ramirez MD 04/25/2018 11:42 AM EDT
[2018-04-25] MEDS: Enoxaparin Inj 40 MG/0.4 ML Syringe SQ SCH (18:08)
--- NOTE | 2018-04-25 20:12 | P.PNPL ---
Subjective Interval history: 57 YO Obese male with TANA On Nasal cannula no new complaint Works with PT Does't use CPAP Breathing about the same. Physical Exam Vital signs: Vital Signs 04/24/18 22:28 04/25/18 00:00 04/25/18 04:00 Temperature 97.8 F 98.2 F Pulse Rate 56 L 57 L 56 L Respiratory Rate 18 20 20 Blood Pressure 127/65 125/57 L Pulse Oximetry 98 98 04/25/18 08:00 04/25/18 12:00 04/25/18 19:13 Temperature 97.9 F 98.0 F Pulse Rate 54 L 64 64 Respiratory Rate 20 20 20 Blood Pressure 110/56 L 119/57 L Pulse Oximetry 99 96 04/25/18 19:14 Temperature Pulse Rate Respiratory Rate Blood Pressure Pulse Oximetry 96 Intake & Output 04/25/18 04/25/18 04/26/18 06:59 18:59 06:59 Intake Total 240 / 240 Output Total 800 / 800 Balance -560 / -560 Weight 144 kg Intake: Oral 240 / 240 Output: Urine 800 / 800 Other: Date of Last Bowel Movement 04/22/18 04/22/18 # Bowel Movements 1 GENERAL: Obese WM, NAD SKIN: Warm and dry. HEAD: Normocephalic. EYES: No scleral icterus. No injection or drainage. NECK: Supple, trachea midline. No JVD or lymphadenopathy. CARDIOVASCULAR: Regular rate and rhythm without murmurs, gallops, or rubs. RESPIRATORY: Breath sounds equal bilaterally. No accessory muscle use. GASTROINTESTINAL: Abdomen soft, non-tender, nondistended. MUSCULOSKELETAL: No cyanosis, or edema. BACK: Nontender without obvious deformity. No CVA tenderness. Assessment and Plan - Plan IMPRESSION: TANA COPD CHF Morbid obesity Gen Weakness/ deconditioning PLAN: Supplement 02 Diurease Aerosol nebs Physical therapy. Encourage to use CPAP Stable from Pulm standpoint
[2018-04-25] MEDS: traZODone 50 MG Tablet PO SCH (22:03)
[2018-04-26] MEDS: LORazepam 1 MG Tablet PO PRN ×4 (04:02→23:49)
[2018-04-26] MEDS: Nystatin 100,000 UNITS/GM Powder 15 GM Bottle TOPICAL SCH ×3 (05:24→21:41)
[2018-04-26] MEDS: Carvedilol 12.5 MG Tablet PO SCH ×2 (10:05→21:28)
[2018-04-26] MEDS: Famotidine 20 MG Tablet PO SCH ×2 (10:05→21:29)
[2018-04-26] MEDS: Senna/Docusate Sodium 8.6/50 MG Tablet PO SCH ×2 (10:05→21:29)
[2018-04-26] MEDS: guaiFENesin 600 MG ER Tablet PO SCH ×2 (10:05→21:29)
[2018-04-26] MEDS: Furosemide 40 MG Tablet PO SCH ×2 (10:05→21:28)
[2018-04-26] MEDS: Allopurinol 100 MG Tablet PO SCH (10:07)
[2018-04-26] MEDS: Amiodarone 200 MG Tablet PO SCH ×2 (10:07→21:29)
[2018-04-26] MEDS: Insulin NovoLOG Aspart Correctional Sugar Inj SQ SCH ×4 (10:08→21:41)
[2018-04-26] MEDS: Aspirin 325 MG Tablet PO SCH (10:09)
[2018-04-26] MEDS: Calamine/Pramoxine Lotion 180 ML Bottle TOPICAL SCH ×2 (10:09→21:31)
[2018-04-26] MEDS: Sodium Chloride 0.65% Nasal Drops/Spray 30 ML Bottle EACH NARE SCH ×2 (10:09→21:30)
[2018-04-26] MEDS: Lactic Acid (Ammonium Lactate) 12% Lotion 225 GM Bottle TOPICAL SCH ×2 (10:10→21:32)
[2018-04-26] MEDS: Psyllium Husk SF 3.4 GM in 5.8 GM Packet PO SCH ×2 (10:10→21:32)
[2018-04-26] MEDS: Polyethylene Glycol 3350 17 GM Packet PO SCH (10:10)
[2018-04-26] MEDS: Insulin Detemir Inj 1,000 UNIT/10 ML Vial SQ SCH ×2 (10:10→21:40)
[2018-04-26] MEDS: Gabapentin 100 MG Capsule PO SCH ×3 (10:10→18:36)
--- NOTE | 2018-04-26 15:01 | P.PNIM ---
Subjective Interval history: No overnight events, still complaining of left knee pain. Still complaining of indigestion, allegedly with prior history of ulcer. No vomiting. Physical Exam Vital signs: Vital Signs 04/25/18 16:00 04/25/18 19:13 04/25/18 19:14 Temperature 98.1 F Pulse Rate 58 L 64 Respiratory Rate 20 20 Blood Pressure 122/56 L Pulse Oximetry 97 96 04/25/18 20:00 04/26/18 00:00 04/26/18 03:59 Temperature 98.4 F 97.9 F 99.3 F Pulse Rate 60 63 60 Respiratory Rate 18 18 18 Blood Pressure 116/59 L 114/62 104/54 L Pulse Oximetry 96 95 97 04/26/18 05:13 04/26/18 08:45 04/26/18 11:36 Temperature Pulse Rate 60 60 64 Respiratory Rate 17 16 18 Blood Pressure Pulse Oximetry 97 97 Intake & Output 04/25/18 04/26/18 04/26/18 18:59 06:59 18:59 Intake Total 480 / 480 240 / 240 Balance 480 / 480 240 / 240 Weight 145.2 kg Intake: Oral 480 / 480 240 / 240 Other: # Voids 5 8 Date of Last Bowel Movement 04/22/18 # Bowel Movements 0 0 Narrative: GENERAL: Not in distress. CARDIOVASCULAR: Regular rate and rhythm. No murmur appreciated. RESPIRATORY: No accessory muscle use. Clear to auscultation. Breath sounds equal bilaterally. GASTROINTESTINAL: Abdomen soft, non-tender, nondistended. Normoactive bowel sounds x4. Obese. MUSCULOSKELETAL: No obvious deformities. Chronic bilateral lower extremity edema. Left anterior knee minimally tender to palpation, no erythema/edema, no palpable effusion, active ROM intact although flexion limited by body habitus. NEUROLOGICAL: Awake and alert. No obvious cranial nerve deficits. Motor grossly within normal limits. Moving all extremities spontaneously. Normal speech. Results - Labs CBC & Chem 7: 04/24/18 10:19 04/10/18 08:45 Laboratory Results - last 24 hr 04/25/18 04/25/18 04/26/18 16:32 19:30 08:16 POC Glucose 157 H 186 H 119 H Assessment and Plan - Assessment (1) Respiratory failure with hypoxia and hypercapnia Code(s): J96.91 - Respiratory failure, unspecified with hypoxia; J96.92 - Respiratory failure, unspecified with hypercapnia Status: Acute (2) Acute kidney injury superimposed on CKD Code(s): N17.9 - Acute kidney failure, unspecified; N18.9 - Chronic kidney disease, unspecified Status: Acute (3) Acute metabolic encephalopathy Code(s): G93.41 - Metabolic encephalopathy Status: Resolved (4) Altered mental status Code(s): R41.82 - Altered mental status, unspecified Status: Resolved (5) Obesity Code(s): E66.9 - Obesity, unspecified Status: Chronic - Plan Acute on chronic hypercapnic respiratory insufficiency, on home oxygen. PMH COPD , Obstructive sleep apnea. Does not tolerate CPAP mask due to the noise. Status post treatment of MRSA pneumonia -Pulmonology following -CPAP as needed, [place] -04/23 CXR reviewed: Basilar airspace disease predominantly on the left side. Differential diagnosis includes atelectasis and pneumonia. - WBC 5.5, neutrophils 60.9, afebrile -added IS, encouraged use -appears at baseline CHF, not in exacerbation, CAD s/p CABG. echo from September showed EF 55-60% -On ASA, Amiodarone 200mg BID, Coreg 12.5mg BID, Clonidine 0.1mg Q8, Plavix 75mg daily -Continue Lasix 40 mg twice daily Hypertension -Stable BP -Continue carvedilol, clonidine Diabetes -Supplemental sliding scale -Levemir 10 units twice daily on a regular diet per patient's request. Scrotal pain- improved Per Dr. Woodruff likely from anasarca. Ultrasound noted. Hypotestosteronism -02/23 total testosterone was 13, free 0.14; s/p 100mg injection. Repeat total testosterone 451/free testosterone 14.4 03/27 Left upper and lower extremity weakness- improved -Head CT on 02/25 shows no acute changes. CT of the neck shows C6-[address] of lumbar spine shows L3-4 herniation with L3 nerve root impingement -Per NS, the disc herniation is nonsurgical. S/P course steroids Morbid obesity/debility: -PT daily to mobilize the patient more. -Slowly improving Insomnia -Continue Trazodone 100mg HS, PRN Zolpidem, HS Melatonin Constipation, chronic -laxatives/ enema as needed. Dyspepsia: acute -Pepcid, Maalox and tums as needed. -still no relief, continue Protonix. Left Knee Pain: possible strain, left knee x-ray unremarkable. Continue pain control. DVT prophylaxis: Lovenox Discharge Planning: Waiting placement, medicaid pending. (1) Respiratory failure with hypoxia and hypercapnia Qualifiers: Chronicity: chronic Qualified Code(s): J96.11 - Chronic respiratory failure with hypoxia; J96.12 - Chronic respiratory failure with hypercapnia
[2018-04-26 15:59] LABS: Baso # (Auto) 0.1 th/mm3 (0.0-0.2); Eos # (Auto) 0.2 th/mm3 (0.0-0.4); Eos % (Auto) 3.6 % (0.0-4.0); Hematocrit 27.8 % (39.0-51.0); Hemoglobin 8.9 gm/dL (13.0-17.0); Lymph # (Auto) 1.4 th/mm3 (1.0-4.8); Mean Corpuscular HGB Conc 32.2 % (32.0-36.0); Mean Corpuscular Hemoglobin 26.9 pg (27.0-34.0); Mean Corpuscular Volume 83.7 fL (80.0-100.0); Mean Platelet Volume 8.6 fL (7.0-11.0); Mono # (Auto) 0.5 th/mm3 (0.0-0.9); Mono % (Auto) 7.7 % (0.0-8.0); Neut # (Auto) 4.7 th/mm3 (1.8-7.7); Neut % (Auto) 67.7 % (16.0-70.0); Platelet Count 186 th/mm3 (150-450); Red Blood Count 3.32 mil/mm3 (4.50-5.90); Red Cell Distribution Width 16.5 % (11.6-17.2); White Blood Count 6.9 th/mm3 (4.0-11.0)
[2018-04-26 16:22] LABS: Anion Gap 6 meq/L (5-15); Blood Urea Nitrogen 12 mg/dL (7-18); Calcium 8.9 mg/dL (8.5-10.1); Carbon Dioxide 42.4 meq/L (21.0-32.0); Chloride 91 meq/L (98-107); Glomerular Filtration Rate 74 mL/min (>89); Glucose,Random 106 mg/dL (74-106); Potassium 3.7 meq/L (3.5-5.1); Sodium 139 meq/L (136-145)
[2018-04-26 16:23] LABS: Iron 33 mcg/dL (65-175)
[2018-04-26 16:49] LABS: Ferritin 22 ng/mL (26-388); Total Iron Binding Capacity 330 mcg/dL (250-450); Vitamin B12 919 pg/mL (193-986)
--- NOTE | 2018-04-26 17:24 | P.PNPL ---
Subjective Interval history: 57 YO Obese male with TANA On Nasal cannula no new complaint Works with PT Breathing about the same C/o abd discomfort Physical Exam Vital signs: Vital Signs 04/25/18 19:13 04/25/18 19:14 04/25/18 20:00 Temperature 98.4 F Pulse Rate 64 60 Respiratory Rate 20 18 Blood Pressure 116/59 L Pulse Oximetry 96 96 04/26/18 00:00 04/26/18 03:59 04/26/18 05:13 Temperature 97.9 F 99.3 F Pulse Rate 63 60 60 Respiratory Rate 18 18 17 Blood Pressure 114/62 104/54 L Pulse Oximetry 95 97 97 04/26/18 08:45 04/26/18 11:36 Temperature Pulse Rate 60 64 Respiratory Rate 16 18 Blood Pressure Pulse Oximetry 97 Intake & Output 04/25/18 04/26/18 04/26/18 18:59 06:59 18:59 Intake Total 480 / 480 240 / 240 Balance 480 / 480 240 / 240 Weight 145.2 kg Intake: Oral 480 / 480 240 / 240 Other: # Voids 5 8 Date of Last Bowel Movement 04/22/18 04/22/18 # Bowel Movements 0 0 GENERAL: Obese Wm, NAD SKIN: Warm and dry. HEAD: Normocephalic. EYES: No scleral icterus. No injection or drainage. NECK: Supple, trachea midline. No JVD or lymphadenopathy. CARDIOVASCULAR: Regular rate and rhythm without murmurs, gallops, or rubs. RESPIRATORY: Breath sounds equal bilaterally. No accessory muscle use. GASTROINTESTINAL: Abdomen soft, non-tender, nondistended. MUSCULOSKELETAL: No cyanosis, or edema. BACK: Nontender without obvious deformity. No CVA tenderness. Assessment and Plan - Plan IMPRESSION: TANA COPD CHF Morbid obesity Gen Weakness/ deconditioning PLAN: Supplement 02 Diurease Aerosol nebs Physical therapy. Encourage to use CPAP Wean 02 if sat >90%
[2018-04-26] MEDS: Enoxaparin Inj 40 MG/0.4 ML Syringe SQ SCH (18:36)
[2018-04-26] MEDS: traZODone 50 MG Tablet PO SCH (21:39)
[2018-04-27] MEDS: Nystatin 100,000 UNITS/GM Powder 15 GM Bottle TOPICAL SCH ×3 (05:04→21:30)
[2018-04-27] MEDS: LORazepam 1 MG Tablet PO PRN ×3 (08:34→21:23)
[2018-04-27] MEDS: Aspirin 325 MG Tablet PO SCH (12:11)
[2018-04-27] MEDS: Famotidine 20 MG Tablet PO SCH ×2 (12:11→21:25)
[2018-04-27] MEDS: guaiFENesin 600 MG ER Tablet PO SCH ×2 (12:11→21:23)
[2018-04-27] MEDS: Carvedilol 12.5 MG Tablet PO SCH ×2 (12:12→21:24)
[2018-04-27] MEDS: Amiodarone 200 MG Tablet PO SCH ×2 (12:12→21:25)
[2018-04-27] MEDS: Allopurinol 100 MG Tablet PO SCH (12:12)
[2018-04-27] MEDS: Gabapentin 100 MG Capsule PO SCH ×3 (12:12→18:27)
[2018-04-27] MEDS: Furosemide 40 MG Tablet PO SCH ×2 (12:12→21:24)
[2018-04-27] MEDS: Insulin NovoLOG Aspart Correctional Sugar Inj SQ SCH ×4 (12:13→21:26)
[2018-04-27] MEDS: Polyethylene Glycol 3350 17 GM Packet PO SCH (12:13)
[2018-04-27] MEDS: Senna/Docusate Sodium 8.6/50 MG Tablet PO SCH ×2 (12:13→21:22)
[2018-04-27] MEDS: Calamine/Pramoxine Lotion 180 ML Bottle TOPICAL SCH ×2 (12:14→23:35)
[2018-04-27] MEDS: Insulin Detemir Inj 1,000 UNIT/10 ML Vial SQ SCH ×2 (12:14→21:26)
[2018-04-27] MEDS: Sodium Chloride 0.65% Nasal Drops/Spray 30 ML Bottle EACH NARE SCH ×2 (12:14→21:29)
[2018-04-27] MEDS: Psyllium Husk SF 3.4 GM in 5.8 GM Packet PO SCH ×2 (12:14→21:22)
[2018-04-27] MEDS: Lactic Acid (Ammonium Lactate) 12% Lotion 225 GM Bottle TOPICAL SCH ×2 (12:14→21:29)
--- NOTE | 2018-04-27 15:01 | P.PNIM ---
Subjective Interval history: Still having dysphagia, heartburn symptoms including regurgitation and difficulty swallowing Physical Exam Vital signs: Vital Signs 04/26/18 16:00 04/26/18 20:00 04/26/18 20:32 Temperature 97.5 F L 98.1 F Pulse Rate 59 L 63 60 Respiratory Rate 16 18 17 Blood Pressure 116/56 L 126/60 Pulse Oximetry 95 97 96 04/26/18 22:23 04/27/18 00:00 04/27/18 04:00 Temperature 97.3 F L 98.1 F Pulse Rate 62 58 L 59 L Respiratory Rate 18 18 18 Blood Pressure 111/57 L 113/58 L Pulse Oximetry 93 L 95 04/27/18 05:35 04/27/18 08:00 04/27/18 08:44 Temperature 98.8 F Pulse Rate 65 62 61 Respiratory Rate 15 20 12 Blood Pressure 124/56 L Pulse Oximetry 98 99 04/27/18 12:00 Temperature 98.0 F Pulse Rate 65 Respiratory Rate 20 Blood Pressure 136/71 Pulse Oximetry 96 Intake & Output 04/26/18 04/27/18 04/27/18 18:59 06:59 18:59 Intake Total 960 / 960 240 / 240 Balance 960 / 960 240 / 240 Weight 142.2 kg Intake: Oral 960 / 960 240 / 240 Other: # Voids 8 # Incontinent Voids 3 Date of Last Bowel Movement 04/22/18 # Bowel Movements 0 0 Narrative: GENERAL: Not in distress. CARDIOVASCULAR: Regular rate and rhythm. No murmur appreciated. RESPIRATORY: No accessory muscle use. Clear to auscultation. Breath sounds equal bilaterally. GASTROINTESTINAL: Abdomen soft, non-tender, nondistended. Normoactive bowel sounds x4. Obese. MUSCULOSKELETAL: No obvious deformities. Chronic bilateral lower extremity edema. Left anterior knee minimally tender to palpation, no erythema/edema, no palpable effusion, active ROM intact although flexion limited by body habitus. NEUROLOGICAL: Awake and alert. No obvious cranial nerve deficits. Motor grossly within normal limits. Moving all extremities spontaneously. Normal speech. Results - Labs CBC & Chem 7: 04/26/18 15:30 04/26/18 15:30 Laboratory Results - last 24 hr 04/26/18 04/26/18 04/26/18 15:30 15:30 18:39 WBC 6.9 RBC 3.32 L Hgb 8.9 L Hct 27.8 L MCV 83.7 MCH 26.9 L MCHC 32.2 RDW 16.5 Plt Count 186 MPV 8.6 Neut % (Auto) 67.7 Lymph % (Auto) 20.0 [place] % (Auto) 7.7 Eos % (Auto) 3.6 Baso % (Auto) 1.0 Neut # (Auto) 4.7 Lymph # (Auto) 1.4 [place] # (Auto) 0.5 Eos # (Auto) 0.2 Baso # (Auto) 0.1 WBC Differential . Differential Comment Auto diff final Sodium 139 Potassium 3.7 Chloride 91 L Carbon Dioxide 42.4 H Anion Gap 6 BUN 12 Creatinine 1.04 Estimated GFR 74 L POC Glucose 131 H Random Glucose 106 Calcium 8.9 Iron 33 L TIBC 330 % Saturation 10.0 L Ferritin 22 L Vitamin B12 919 Folate Greater than 20.0 H 04/26/18 04/27/18 04/27/18 21:36 08:19 12:20 WBC RBC Hgb Hct MCV MCH MCHC RDW Plt Count MPV Neut % (Auto) Lymph % (Auto) [place] % (Auto) Eos % (Auto) Baso % (Auto) Neut # (Auto) Lymph # (Auto) [place] # (Auto) Eos # (Auto) Baso # (Auto) WBC Differential Differential Comment Sodium Potassium Chloride Carbon Dioxide Anion Gap BUN Creatinine Estimated GFR POC Glucose 136 H 138 H 135 H Random Glucose Calcium Iron TIBC % Saturation Ferritin Vitamin B12 Folate Assessment and Plan - Assessment (1) Respiratory failure with hypoxia and hypercapnia Code(s): J96.91 - Respiratory failure, unspecified with hypoxia; J96.92 - Respiratory failure, unspecified with hypercapnia Status: Acute (2) Acute kidney injury superimposed on CKD Code(s): N17.9 - Acute kidney failure, unspecified; N18.9 - Chronic kidney disease, unspecified Status: Acute (3) Acute metabolic encephalopathy Code(s): G93.41 - Metabolic encephalopathy Status: Resolved (4) Altered mental status Code(s): R41.82 - Altered mental status, unspecified Status: Resolved (5) Obesity Code(s): E66.9 - Obesity, unspecified Status: Chronic - Plan Dysphagia with GERD symptoms -nectar thick, mechanical soft after speech therapy evaluation, consult GI, rule out strictures. Acute on chronic hypercapnic respiratory insufficiency, on home oxygen. PMH COPD , Obstructive sleep apnea. Does not tolerate CPAP mask due to the noise. Status post treatment of MRSA pneumonia -Pulmonology following, CPAP as needed, [place] -04/23 CXR reviewed: Basilar airspace disease predominantly on the left side, likely atelectasis, continue IS. CHF, not in exacerbation, CAD s/p CABG. echo from September showed EF 55-60% -On ASA, Amiodarone 200mg BID, Coreg 12.5mg BID, Clonidine 0.1mg Q8, Plavix 75mg daily, Lasix 40 mg twice daily Hypertension -Continue carvedilol, clonidine Diabetes -Supplemental sliding scale -Levemir 10 units twice daily on a regular diet per patient's request. Scrotal pain- improved Per Dr. Woodruff likely from anasarca. Ultrasound noted. Hypotestosteronism -02/23 total testosterone was 13, free 0.14; s/p 100mg injection. Repeat total testosterone 451/free testosterone 14.4 03/27 Left upper and lower extremity weakness- improved -Head CT on 02/25 shows no acute changes. CT of the neck shows C6-[address] of lumbar spine shows L3-4 herniation with L3 nerve root impingement -Per NS, the disc herniation is nonsurgical. S/P course steroids Morbid obesity/debility: -PT daily to mobilize the patient more. -Slowly improving Insomnia -Continue Trazodone 100mg HS, PRN Zolpidem, HS Melatonin Constipation, chronic -laxatives/ enema as needed. Iron deficiency anemia-start iron sulfate. Dyspepsia: acute -Pepcid, Maalox and tums as needed. Still no relief, continue Protonix. Left Knee Pain: possible strain, left knee x-ray unremarkable. Continue pain control. DVT prophylaxis: Lovenox Discharge Planning: Waiting placement, medicaid pending. (1) Respiratory failure with hypoxia and hypercapnia Qualifiers: Chronicity: chronic Qualified Code(s): J96.11 - Chronic respiratory failure with hypoxia; J96.12 - Chronic respiratory failure with hypercapnia
--- NOTE | 2018-04-27 16:09 | P.CONGI ---
History of Present Illness Consult date: 04/27/18 Consult reason: Dyspepsia, dysphagia, GERD Chief complaint: Hypercapnia/Altered Mental Status/Respiratory History of Present Illness: This is a morbid obese 57-year-old male who entered the hospital on 03/25/2018 with respiratory failure and was initially on ventilator management. Patient is now being monitored on the medical floor and is pending discharge to tertiary facility. Patient has noted symptoms of dysphasia with food feeling stuck for brief periods of time as well as dyspepsia and symptoms of GERD. Patient has hoarse voice which could be secondary to his reflux symptoms he states the symptoms started happening on the hospital over the past week have worsened. Patient also notes history of constipation which could be related to his pain meds. Patient denies any family history of colon cancer and no previous EGD. Colonoscopy in 2007. Patient's currently being managed on oxygen at 4 L and appears to have no obvious shortness of breath at rest. Gastroenterology was consulted to assist with his upper GI symptoms of GERD dyspepsia and dysphasia. Current hemoglobin 8.9 iron level 33 ferritin level 22. Patient is currently on Plavix since 03/25/2018 and aspirin 325 mg and iron supplement. Patient's Plavix was increased to 40 mg twice daily and patient receives Zofran as needed. Patient notes has been taking MiraLAX daily but mid has been ineffective. <Katya Navarro - Last Filed: 04/27/18 16:19> Review of Systems All other systems reviewed negative except as stated in HPI <Katya Navarro - Last Filed: 04/27/18 16:19> Medications and Allergies Active Medications: Active Medications Acetaminophen (Tylenol) 650 mg PO Q4H PRN PRN Reason: TEMP >100.4 Last Admin: 04/21/18 21:44 Dose: 650 mg Acetaminophen (Tylenol) 650 mg PO Q6H PRN PRN Reason: PAIN SCALE 1-3 Last Admin: 04/18/18 05:19 Dose: 650 mg Al Hydrox/Mg Hydrox/Simethicone (Mag-Al Plus Susp Liq) 30 ml PO Q6H PRN PRN Reason: heartburn Last Admin: 04/23/18 11:59 Dose: 30 ml Al Hydroxide/Mg Hydroxide (Milk Of Magnesia Liq) 30 ml PO Q12H PRN PRN Reason: MILD CONSTIPATION Last Admin: 04/03/18 20:50 Dose: 30 ml Albuterol (Albuterol Neb (Prn)) 2.5 mg NEB Q2HR NEB PRN PRN Reason: DYSPNEA Last Admin: 04/27/18 15:30 Dose: 2.5 mg Allopurinol (Zyloprim) 100 mg PO DAILY [facility] Last Admin: 04/27/18 12:12 Dose: 100 mg Amiodarone HCl (Cordarone) 200 mg PO BID [facility] Last Admin: 04/27/18 12:12 Dose: 200 mg Aspirin (Aspirin) 325 mg PO DAILY [facility] Last Admin: 04/27/18 12:11 Dose: 325 mg Benzocaine/Menthol (Chloraseptic Sore Throat Lozenge) 1 lozenge BUCCAL UNSCH PRN PRN Reason: HOARSE VOICE Benzonatate (Tessalon Perles) 100 mg PO Q8H PRN PRN Reason: COUGH Last Admin: 04/20/18 03:53 Dose: 100 mg Bisacodyl (Dulcolax Supp) 10 mg RECTAL DAILY PRN PRN Reason: SEVERE CONSTIPATION Last Admin: 04/08/18 17:35 Dose: 10 mg Budesonide (Pulmocort Respule Neb) 0.5 mg NEB Q12HR NEB [facility] Last Admin: 04/27/18 08:44 Dose: 0.5 mg Calamine/Pramoxine (Caladryl Lotion) 1 applicatio TOPICAL Q12HR [facility] Last Admin: 04/27/18 12:14 Dose: 1 applicatio Carvedilol (Coreg) 12.5 mg PO BID [facility] Last Admin: 04/27/18 12:12 Dose: 12.5 mg Clonidine HCl (Catapres) 0.1 mg PO Q8H [facility] Last Admin: 04/27/18 12:12 Dose: 0.1 mg Clopidogrel Bisulfate (Plavix) 75 mg PO DAILY [facility] Last Admin: 04/27/18 12:11 Dose: 75 mg Dextrose (D50w Vial) 50 ml IV.PUSH UNSCH PRN PRN Reason: PER HYPOGLYCEMIA PROTOCOL Enoxaparin Sodium (Lovenox Inj) 40 mg SQ Q24H [facility] Last Admin: 04/26/18 18:36 Dose: 40 mg Famotidine (Pepcid) 20 mg PO BID [facility] Last Admin: 04/27/18 12:11 Dose: 20 mg Ferrous Sulfate (Ferrous Sulfate Liq) 15 mg PO DAILY [facility] Furosemide (Lasix) 40 mg PO BID [facility] Last Admin: 04/27/18 12:12 Dose: 40 mg Gabapentin (Neurontin) 100 mg PO TID [facility] Last Admin: 04/27/18 13:36 Dose: 100 mg Glucagon (Glucagon Inj) 1 mg OTHER PRN PRN PRN Reason: for Hypoglycemia Protocol Glycerin (Glycerin Adult Supp) 2 gm RECTAL DAILY PRN PRN Reason: CONSTIPATION Guaifenesin (Mucinex Er) 1,200 mg PO BID [facility] Last Admin: 04/27/18 12:11 Dose: 1,200 mg Hydralazine HCl (Apresoline Inj) 20 mg IV.PUSH Q4H PRN PRN Reason: SBP > 160 Insulin Aspart (Novolog Insulin Suppl Scale Inj) 0 unit SQ [facility]; Protocol Last Admin: 04/27/18 12:54 Dose: Not Given Insulin Detemir (Levemir Inj) 10 unit SQ Q12HR [facility] Last Admin: 04/27/18 12:14 Dose: 10 unit Lactic Acid (Lac-Hydrin 12% Lotion) 1 applicatio TOPICAL BID [facility] Last Admin: 04/27/18 12:14 Dose: 1 applicatio Lorazepam (Ativan) 1 mg PO Q6H PRN PRN Reason: ANXIETY Last Admin: 04/27/18 15:09 Dose: 1 mg Melatonin (Melatonin) 5 mg PO HS PRN PRN Reason: INSOMNIA Last Admin: 04/15/18 21:25 Dose: 5 mg Menthol ([place]) 1 lozenge BUCCAL UNSCH PRN PRN Reason: SORE THROAT Naloxone HCl (Narcan Inj) 0.4 mg IV.PUSH UNSCH PRN PRN Reason: SEE LABEL COMMENTS Neomycin/Polymyxin/Bacitracin (Neosporin Oint) 1 applicatio TOPICAL BID [facility] Last Admin: 04/27/18 12:13 Dose: 1 applicatio Nystatin (Mycostatin Powder) 1 applicatio TOPICAL Q8HR [facility] Last Admin: 04/27/18 15:09 Dose: 1 applicatio Ondansetron HCl (Zofran Inj) 4 mg IV.PUSH Q6H PRN PRN Reason: NAUSEA OR VOMITING Oxycodone/Acetaminophen (Percocet 5/325 Mg) 1 tab PO Q4H PRN PRN Reason: PAIN SCALE 4-10 Last Admin: 04/27/18 08:34 Dose: 1 tab Pantoprazole Sodium (Protonix) 40 mg PO BID [facility] Polyethylene Glycol (Miralax) 17 gm PO DAILY [facility] Last Admin: 04/27/18 12:13 Dose: Not Given Potassium Chloride (K-Dur) 20 meq PO DAILY [facility] Last Admin: 04/27/18 12:14 Dose: Not Given Psyllium Hydrophilic Mucilloid (Metamucil Fiber Sf Pkt) 1 pack PO BID [facility] Last Admin: 04/27/18 12:14 Dose: Not Given Senna/Docusate Sodium (Simi-Colace) 1 tab PO BID [facility] Last Admin: 04/27/18 12:13 Dose: 1 tab Sodium Biphosphate/Sodium Phosphate (Fleets Enema (Adult)) 118 ml RECTAL Q48H PRN PRN Reason: Moderate-severe constipation Last Admin: 04/17/18 18:06 Dose: 118 ml Sodium Chloride (Baby [place] Saline 0.65% Dave Drop/[place]) 6 drops EACH NARE BID [facility] Last Admin: 04/27/18 12:14 Dose: 6 drops Sodium Chloride (Ns Flush) 2 ml IV.FLUSH BID [facility] Last Admin: 04/27/18 12:13 Dose: Not Given Sodium Chloride (Ns Flush) 2 ml IV.FLUSH UNSCH PRN PRN Reason: FLUSH AFTER USING IV ACCESS Tamsulosin HCl (Flomax) 0.4 mg PO DAILY [facility] Last Admin: 04/27/18 12:12 Dose: 0.4 mg Trazodone HCl (Desyrel) 100 mg PO HS [facility] Last Admin: 04/26/18 21:39 Dose: 100 mg Zolpidem Tartrate (Ambien) 5 mg PO HS PRN PRN Reason: INSOMNIA Last Admin: 04/24/18 22:33 Dose: 5 mg <Katya Navarro M - Last Filed: 04/27/18 16:19> Active Medications: Active Medications Acetaminophen (Tylenol) 650 mg PO Q4H PRN PRN Reason: TEMP >100.4 Last Admin: 04/21/18 21:44 Dose: 650 mg Acetaminophen (Tylenol) 650 mg PO Q6H PRN PRN Reason: PAIN SCALE 1-3 Last Admin: 04/18/18 05:19 Dose: 650 mg Al Hydrox/Mg Hydrox/Simethicone (Mag-Al Plus Susp Liq) 30 ml PO Q6H PRN PRN Reason: heartburn Last Admin: 04/23/18 11:59 Dose: 30 ml Al Hydroxide/Mg Hydroxide (Milk Of Magnesia Liq) 30 ml PO Q12H PRN PRN Reason: MILD CONSTIPATION Last Admin: 04/03/18 20:50 Dose: 30 ml Albuterol (Albuterol Neb (Prn)) 2.5 mg NEB Q2HR NEB PRN PRN Reason: DYSPNEA Last Admin: 04/27/18 15:30 Dose: 2.5 mg Allopurinol (Zyloprim) 100 mg PO DAILY [facility] Last Admin: 04/27/18 12:12 Dose: 100 mg Amiodarone HCl (Cordarone) 200 mg PO BID [facility] Last Admin: 04/27/18 12:12 Dose: 200 mg Benzocaine/Menthol (Chloraseptic Sore Throat Lozenge) 1 lozenge BUCCAL UNSCH PRN PRN Reason: HOARSE VOICE Benzonatate (Tessalon Perles) 100 mg PO Q8H PRN PRN Reason: COUGH Last Admin: 04/20/18 03:53 Dose: 100 mg Bisacodyl (Dulcolax Supp) 10 mg RECTAL DAILY PRN PRN Reason: SEVERE CONSTIPATION Last Admin: 04/08/18 17:35 Dose: 10 mg Budesonide (Pulmocort Respule Neb) 0.5 mg NEB Q12HR NEB [facility] Last Admin: 04/27/18 08:44 Dose: 0.5 mg Calamine/Pramoxine (Caladryl Lotion) 1 applicatio TOPICAL Q12HR [facility] Last Admin: 04/27/18 12:14 Dose: 1 applicatio Carvedilol (Coreg) 12.5 mg PO BID [facility] Last Admin: 04/27/18 12:12 Dose: 12.5 mg Clonidine HCl (Catapres) 0.1 mg PO Q8H [facility] Last Admin: 04/27/18 12:12 Dose: 0.1 mg Dextrose (D50w Vial) 50 ml IV.PUSH UNSCH PRN PRN Reason: PER HYPOGLYCEMIA PROTOCOL Enoxaparin Sodium (Lovenox Inj) 40 mg SQ Q24H [facility] Last Admin: 04/26/18 18:36 Dose: 40 mg Famotidine (Pepcid) 20 mg PO BID [facility] Last Admin: 04/27/18 12:11 Dose: 20 mg Ferrous Sulfate (Ferrous Sulfate Liq) 15 mg PO DAILY [facility] Furosemide (Lasix) 40 mg PO BID [facility] Last Admin: 04/27/18 12:12 Dose: 40 mg Gabapentin (Neurontin) 100 mg PO TID [facility] Last Admin: 04/27/18 13:36 Dose: 100 mg Glucagon (Glucagon Inj) 1 mg OTHER PRN PRN PRN Reason: for Hypoglycemia Protocol Glycerin (Glycerin Adult Supp) 2 gm RECTAL DAILY PRN PRN Reason: CONSTIPATION Guaifenesin (Mucinex Er) 1,200 mg PO BID [facility] Last Admin: 04/27/18 12:11 Dose: 1,200 mg Hydralazine HCl (Apresoline Inj) 20 mg IV.PUSH Q4H PRN PRN Reason: SBP > 160 Insulin Aspart (Novolog Insulin Suppl Scale Inj) 0 unit SQ [facility]; Protocol Last Admin: 04/27/18 12:54 Dose: Not Given Insulin Detemir (Levemir Inj) 10 unit SQ Q12HR [facility] Last Admin: 04/27/18 12:14 Dose: 10 unit Lactic Acid (Lac-Hydrin 12% Lotion) 1 applicatio TOPICAL BID [facility] Last Admin: 04/27/18 12:14 Dose: 1 applicatio Lorazepam (Ativan) 1 mg PO Q6H PRN PRN Reason: ANXIETY Last Admin: 04/27/18 15:09 Dose: 1 mg Melatonin (Melatonin) 5 mg PO HS PRN PRN Reason: INSOMNIA Last Admin: 04/15/18 21:25 Dose: 5 mg Menthol ([place]) 1 lozenge BUCCAL UNSCH PRN PRN Reason: SORE THROAT Methylnaltrexone [place] (Relistor) 12 mg SQ DAILY [facility] Naloxone HCl (Narcan Inj) 0.4 mg IV.PUSH UNSCH PRN PRN Reason: SEE LABEL COMMENTS Neomycin/Polymyxin/Bacitracin (Neosporin Oint) 1 applicatio TOPICAL BID [facility] Last Admin: 04/27/18 12:13 Dose: 1 applicatio Nystatin (Mycostatin Powder) 1 applicatio TOPICAL Q8HR [facility] Last Admin: 04/27/18 15:09 Dose: 1 applicatio Ondansetron HCl (Zofran Inj) 4 mg IV.PUSH Q6H PRN PRN Reason: NAUSEA OR VOMITING Oxycodone/Acetaminophen (Percocet 5/325 Mg) 1 tab PO Q4H PRN PRN Reason: PAIN SCALE 4-10 Last Admin: 04/27/18 08:34 Dose: 1 tab Pantoprazole Sodium (Protonix) 40 mg PO BID [facility] Potassium Chloride (K-Dur) 20 meq PO DAILY [facility] Last Admin: 04/27/18 12:14 Dose: Not Given Psyllium Hydrophilic Mucilloid (Metamucil Fiber Sf Pkt) 1 pack PO BID [facility] Last Admin: 04/27/18 12:14 Dose: Not Given Senna/Docusate Sodium (Simi-Colace) 1 tab PO BID [facility] Last Admin: 04/27/18 12:13 Dose: 1 tab Sodium Biphosphate/Sodium Phosphate (Fleets Enema (Adult)) 118 ml RECTAL Q48H PRN PRN Reason: Moderate-severe constipation Last Admin: 04/17/18 18:06 Dose: 118 ml Sodium Chloride (Baby [place] Saline 0.65% Dave Drop/[place]) 6 drops EACH NARE BID [facility] Last Admin: 04/27/18 12:14 Dose: 6 drops Sodium Chloride (Ns Flush) 2 ml IV.FLUSH BID [facility] Last Admin: 04/27/18 12:13 Dose: Not Given Sodium Chloride (Ns Flush) 2 ml IV.FLUSH UNSCH PRN PRN Reason: FLUSH AFTER USING IV ACCESS Tamsulosin HCl (Flomax) 0.4 mg PO DAILY [facility] Last Admin: 04/27/18 12:12 Dose: 0.4 mg Trazodone HCl (Desyrel) 100 mg PO HS [facility] Last Admin: 04/26/18 21:39 Dose: 100 mg Zolpidem Tartrate (Ambien) 5 mg PO HS PRN PRN Reason: INSOMNIA Last Admin: 04/24/18 22:33 Dose: 5 mg <Kalyan Vizcaino - Last Filed: 04/27/18 17:07> Allergies Allergy/AdvReac Type Severity Reaction Status Date / Time morphine AdvReac Severe Gastrointestinal Verified 03/24/18 12:04 Upset MRI PRECAUTION AdvReac Severe PACEMAKER Uncoded 03/24/18 12:04 (JLT), BULLET FRAGMENTS IN SINUS CAVITY Home Medications Medication Instructions Recorded Confirmed Type albuterol sulfate [Ventolin HFA] 2 puff INHALATION Q4-6H PRN 03/24/18 03/24/18 History allopurinol 100 mg PO DAILY 03/24/18 03/24/18 History amiodarone 200 mg PO BID 03/24/18 03/24/18 History aspirin 325 mg PO DAILY 03/24/18 03/24/18 History budesonide-formoterol [Symbicort] 1 puff INHALATION Q12HR 03/24/18 03/24/18 History bumetanide 1 mg PO DAILY 03/24/18 03/24/18 History carvedilol 12.5 mg PO BID 03/24/18 03/24/18 History clopidogrel 75 mg PO DAILY 03/24/18 03/24/18 History diclofenac sodium 75 mg PO BID 03/24/18 03/24/18 History lisinopril-hydrochlorothiazide 1 tab PO DAILY 03/24/18 03/24/18 History omeprazole 20 mg PO DAILY 03/24/18 03/24/18 History paroxetine HCl 20 mg PO DAILY 03/24/18 03/24/18 History Exam Vital signs: Vital Signs 04/26/18 20:00 04/26/18 20:32 04/26/18 22:23 Temperature 98.1 F Pulse Rate 63 60 62 Respiratory Rate 18 17 18 Blood Pressure 126/60 Pulse Oximetry 97 96 04/27/18 00:00 04/27/18 04:00 04/27/18 05:35 Temperature 97.3 F L 98.1 F Pulse Rate 58 L 59 L 65 Respiratory Rate 18 18 15 Blood Pressure 111/57 L 113/58 L Pulse Oximetry 93 L 95 04/27/18 08:00 04/27/18 08:44 04/27/18 12:00 Temperature 98.8 F 98.0 F Pulse Rate 62 61 65 Respiratory Rate 20 12 20 Blood Pressure 124/56 L 136/71 Pulse Oximetry 98 99 96 04/27/18 15:31 Temperature Pulse Rate 66 Respiratory Rate 12 Blood Pressure Pulse Oximetry Intake & Output 04/26/18 04/27/18 04/27/18 18:59 06:59 18:59 Intake Total 960 / 960 240 / 240 Balance 960 / 960 240 / 240 Weight 142.2 kg Intake: Oral 960 / 960 240 / 240 Other: # Voids 8 # Incontinent Voids 3 Date of Last Bowel Movement 04/22/18 # Bowel Movements 0 0 - Constitutional mild distress, morbidly obese, chronically ill appearing - Routine HEENT Exam Head: Present: normocephalic, atraumatic ENT: Present: mucous membranes moist (Hoarse voice) - Routine Neck Exam Present: supple (Obese) - Routine Respiratory Exam Present: accessory muscle use (No obvious wheezing or rales does cough up some coarse rhonchi at times) - Routine Cardiovascular Exam Present: RRR - Routine Abdominal Exam Present: soft (Distant round, obese,) - Routine Skin Exam Present: intact, pallor - Routine Neurological Exam Present: alert (Answer simple questions appropriately) <Katya Navarro - Last Filed: 04/27/18 16:19> Vital signs: Vital Signs 04/26/18 20:00 04/26/18 20:32 04/26/18 22:23 Temperature 98.1 F Pulse Rate 63 60 62 Respiratory Rate 18 17 18 Blood Pressure 126/60 Pulse Oximetry 97 96 04/27/18 00:00 04/27/18 04:00 04/27/18 05:35 Temperature 97.3 F L 98.1 F Pulse Rate 58 L 59 L 65 Respiratory Rate 18 18 15 Blood Pressure 111/57 L 113/58 L Pulse Oximetry 93 L 95 04/27/18 08:00 04/27/18 08:44 04/27/18 12:00 Temperature 98.8 F 98.0 F Pulse Rate 62 61 65 Respiratory Rate 20 12 20 Blood Pressure 124/56 L 136/71 Pulse Oximetry 98 99 96 04/27/18 15:31 Temperature Pulse Rate 66 Respiratory Rate 12 Blood Pressure Pulse Oximetry Intake & Output 04/26/18 04/27/18 04/27/18 18:59 06:59 18:59 Intake Total 960 / 960 240 / 240 Balance 960 / 960 240 / 240 Weight 142.2 kg Intake: Oral 960 / 960 240 / 240 Other: # Voids 8 # Incontinent Voids 3 Date of Last Bowel Movement 04/22/18 # Bowel Movements 0 0 <Kalyan Vizcaino - Last Filed: 04/27/18 17:07> Results - Labs CBC & Chem 7: 04/26/18 15:30 04/26/18 15:30 Labs: Laboratory Results - last 24 hr 04/26/18 04/26/18 04/26/18 15:30 18:39 21:36 Sodium 139 Potassium 3.7 Chloride 91 L Carbon Dioxide 42.4 H Anion Gap 6 BUN 12 Creatinine 1.04 Estimated GFR 74 L POC Glucose 131 H 136 H Random Glucose 106 Calcium 8.9 Iron 33 L TIBC 330 % Saturation 10.0 L Ferritin 22 L Vitamin B12 919 Folate Greater than 20.0 H 04/27/18 04/27/18 08:19 12:20 Sodium Potassium Chloride Carbon Dioxide Anion Gap BUN Creatinine Estimated GFR POC Glucose 138 H 135 H Random Glucose Calcium Iron TIBC % Saturation Ferritin Vitamin B12 Folate <Katya Navarro - Last Filed: 04/27/18 16:19> - Labs CBC & Chem 7: 04/26/18 15:30 04/26/18 15:30 Labs: Laboratory Results - last 24 hr 04/26/18 04/26/18 04/26/18 15:30 18:39 21:36 POC Glucose 131 H 136 H TIBC 330 % Saturation 10.0 L Ferritin 22 L Vitamin B12 919 Folate Greater than 20.0 H 04/27/18 04/27/18 08:19 12:20 POC Glucose 138 H 135 H TIBC % Saturation Ferritin Vitamin B12 Folate <Kalyan Vizcaino - Last Filed: 04/27/18 17:07> Assessment and Plan - Plan 57-year-old male admission 03/25/2018 with respiratory distress and COPD and respiratory failure was on ventilator management per the patient for approximately 3 weeks and was stabilized he is now requiring oxygen at 4 L per nasal cannula in no obvious shortness of breath with head of bed elevated 45. Patient does cough and have occasional rhonchi which clears with cough. Dyspepsia, complaints of worsening since hospital admission Dysphasia complaints of food getting stuck or difficulty swallowing. Denies any problems taking his meds GERG symptoms of hoarseness since hospital stay for the past 1-2 weeks which is worsening. Patient's meds were up today to Protonix 40 mg twice daily and encourage patient to keep head of bed elevated even while he sleeps.. Patient is currently on Plavix since 03/25/2018 and aspirin 325 daily Constipation acute on chronic which could be related to his pain management and opioids MiraLAX is ineffective Plan Diet per attending as tolerated Hold Plavix and give ASA 81 mg daily. For now Consent for EGD with dilation Monday a.m. N.p.o. at midnight Monday night PPI twice daily Head of bed elevated 30 at least while awake and sleeping Iron supplements Relistor subcu daily, DC MiraLAX Further recommendations to follow Patient was seen per myself and Dr. 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 On Pepcid. Add protonix 40mg daily. EGD/Dilation on monday. Thank you - Attending Attestation The exam, history, and the medical decision-making described in the above note were completed with the assistance of the mid-level provider. I reviewed and agree with the findings presented. I attest that I had a [id number] encounter with the patient on the same day, and personally performed and documented my assessment and findings in the medical record. <Kalyan Vizcaino - Last Filed: 04/27/18 17:07>
[2018-04-27] MEDS: Enoxaparin Inj 40 MG/0.4 ML Syringe SQ SCH (18:28)
[2018-04-27] MEDS: Methylnaltrexone Inj 12 MG/0.6 ML Vial SQ SCH (18:29)
[2018-04-27] MEDS: Melatonin 5 MG Tablet PO PRN (21:22)
[2018-04-27] MEDS: traZODone 50 MG Tablet PO SCH (21:25)
[2018-04-28] MEDS: LORazepam 1 MG Tablet PO PRN ×3 (04:24→18:13)
[2018-04-28] MEDS: Nystatin 100,000 UNITS/GM Powder 15 GM Bottle TOPICAL SCH ×3 (05:44→22:00)
[2018-04-28] MEDS: Insulin NovoLOG Aspart Correctional Sugar Inj SQ SCH ×4 (09:41→22:00)
[2018-04-28] MEDS: Sodium Chloride 0.65% Nasal Drops/Spray 30 ML Bottle EACH NARE SCH ×2 (09:42→21:57)
[2018-04-28] MEDS: Amiodarone 200 MG Tablet PO SCH ×2 (09:42→21:58)
[2018-04-28] MEDS: guaiFENesin 600 MG ER Tablet PO SCH ×2 (09:42→21:59)
[2018-04-28] MEDS: Senna/Docusate Sodium 8.6/50 MG Tablet PO SCH ×2 (09:42→22:00)
[2018-04-28] MEDS: Calamine/Pramoxine Lotion 180 ML Bottle TOPICAL SCH ×2 (09:42→21:57)
[2018-04-28] MEDS: Furosemide 40 MG Tablet PO SCH ×2 (09:42→21:58)
[2018-04-28] MEDS: Famotidine 20 MG Tablet PO SCH ×2 (09:43→21:59)
[2018-04-28] MEDS: Allopurinol 100 MG Tablet PO SCH (09:43)
[2018-04-28] MEDS: Carvedilol 12.5 MG Tablet PO SCH ×2 (09:43→21:58)
[2018-04-28] MEDS: Gabapentin 100 MG Capsule PO SCH ×3 (09:43→18:13)
[2018-04-28] MEDS: Insulin Detemir Inj 1,000 UNIT/10 ML Vial SQ SCH ×2 (09:44→21:58)
[2018-04-28] MEDS: Psyllium Husk SF 3.4 GM in 5.8 GM Packet PO SCH ×2 (09:44→21:59)
[2018-04-28] MEDS: Ferrous Sulfate Drops 15 MG/ML 50 ML Bottle PO SCH (09:44)
[2018-04-28] MEDS: Lactic Acid (Ammonium Lactate) 12% Lotion 225 GM Bottle TOPICAL SCH ×2 (09:44→21:58)
--- NOTE | 2018-04-28 13:04 | P.PNPL ---
Subjective Interval history: 57 YO Obese male with TANA Works with PT Breathing about the same On 4LNC, desasturates C/o leg pains and weakness Physical Exam Vital signs: Vital Signs 04/27/18 15:31 04/27/18 16:00 04/27/18 20:00 Temperature 98.3 F 97.8 F Pulse Rate 66 60 65 Respiratory Rate 12 20 20 Blood Pressure 114/58 L 111/55 L Pulse Oximetry 96 97 04/27/18 20:31 04/28/18 00:00 04/28/18 00:17 Temperature 98.1 F Pulse Rate 64 60 61 Respiratory Rate 16 21 16 Blood Pressure 133/72 Pulse Oximetry 96 94 L 04/28/18 08:00 04/28/18 09:34 Temperature 98.3 F Pulse Rate 55 L 61 Respiratory Rate 20 19 Blood Pressure 132/69 Pulse Oximetry 95 Intake & Output 04/27/18 04/28/18 04/28/18 18:59 06:59 18:59 Intake Total 480 / 480 Balance 480 / 480 Weight 141.8 kg Intake: Oral 480 / 480 Other: # Voids 5 # Incontinent Voids 3 # Bowel Movements 0 GENERAL: Obese WM, Up in chair SKIN: Warm and dry. HEAD: Normocephalic. EYES: No scleral icterus. No injection or drainage. NECK: Supple, trachea midline. No JVD or lymphadenopathy. CARDIOVASCULAR: Regular rate and rhythm without murmurs, gallops, or rubs. RESPIRATORY: Breath sounds equal bilaterally. No accessory muscle use. GASTROINTESTINAL: Abdomen soft, non-tender, nondistended. MUSCULOSKELETAL: No cyanosis, + edema. BACK: Nontender without obvious deformity. No CVA tenderness. Assessment and Plan - Plan IMPRESSION: TANA COPD CHF Morbid obesity Gen Weakness/ deconditioning PLAN: Supplement , 4LNC Keep sat 88-92% Diurease Aerosol nebs Physical therapy. Does't want to use CPAP
--- NOTE | 2018-04-28 13:07 | P.PN ---
Subjective Interval history: no complains of breathing difficulties or pain main complain is his diet- Physical Exam Vital signs: Vital Signs 04/27/18 15:31 04/27/18 16:00 04/27/18 20:00 Temperature 98.3 F 97.8 F Pulse Rate 66 60 65 Respiratory Rate 12 20 20 Blood Pressure 114/58 L 111/55 L Pulse Oximetry 96 97 04/27/18 20:31 04/28/18 00:00 04/28/18 00:17 Temperature 98.1 F Pulse Rate 64 60 61 Respiratory Rate 16 21 16 Blood Pressure 133/72 Pulse Oximetry 96 94 L 04/28/18 08:00 04/28/18 09:34 Temperature 98.3 F Pulse Rate 55 L 61 Respiratory Rate 20 19 Blood Pressure 132/69 Pulse Oximetry 95 Intake & Output 04/27/18 04/28/18 04/28/18 18:59 06:59 18:59 Intake Total 480 / 480 Balance 480 / 480 Weight 141.8 kg Intake: Oral 480 / 480 Other: # Voids 5 # Incontinent Voids 3 # Bowel Movements 0 Narrative: GENERAL: Not in distress. CARDIOVASCULAR: Regular rate and rhythm. No murmur appreciated. RESPIRATORY: No accessory muscle use. Clear to auscultation. Breath sounds equal bilaterally. GASTROINTESTINAL: Abdomen soft, non-tender, nondistended. Normoactive bowel sounds x4. Obese. MUSCULOSKELETAL: No obvious deformities. Chronic bilateral lower extremity edema. Left anterior knee minimally tender to palpation, no erythema/edema, no palpable effusion, active ROM intact although flexion limited by body habitus. NEUROLOGICAL: Awake and alert. No obvious cranial nerve deficits. Motor grossly within normal limits. Moving all extremities spontaneously. Normal speech. Results - Labs CBC & Chem 7: 04/26/18 15:30 04/26/18 15:30 Laboratory Results - last 24 hr 04/27/18 04/27/18 04/28/18 16:59 19:57 08:05 POC Glucose 139 H 165 H 140 H 04/28/18 11:28 POC Glucose 216 H Assessment and Plan - Assessment (1) Respiratory failure with hypoxia and hypercapnia Code(s): J96.91 - Respiratory failure, unspecified with hypoxia; J96.92 - Respiratory failure, unspecified with hypercapnia Status: Acute (2) Acute kidney injury superimposed on CKD Code(s): N17.9 - Acute kidney failure, unspecified; N18.9 - Chronic kidney disease, unspecified Status: Acute (3) Acute metabolic encephalopathy Code(s): G93.41 - Metabolic encephalopathy Status: Resolved (4) Altered mental status Code(s): R41.82 - Altered mental status, unspecified Status: Resolved (5) Obesity Code(s): E66.9 - Obesity, unspecified Status: Chronic - Plan 57 years old male Dysphagia with GERD symptoms -nectar thick, mechanical soft after speech therapy evaluation - GI xconuslted - plan for EGD on Monday Acute on chronic hypercapnic respiratory insufficiency, on home oxygen. PMH COPD , Obstructive sleep apnea. Does not tolerate CPAP mask due to the noise. Status post treatment of MRSA pneumonia -Pulmonology following, CPAP as needed, [facility] -04/23 CXR reviewed: Basilar airspace disease predominantly on the left side, likely atelectasis, continue IS. CHF, not in exacerbation, CAD s/p CABG. echo from September showed EF 55-60% -On ASA, Amiodarone 200mg BID, Coreg 12.5mg BID, Clonidine 0.1mg Q8, Plavix 75mg daily, Lasix 40 mg twice daily Hypertension -Continue carvedilol, clonidine Diabetes -Supplemental sliding scale -Levemir 10 units twice daily on a regular diet per patient's request.-- mechanical soft Scrotal pain- improved Per Dr. Woodruff likely from anasarca. Ultrasound noted. Hypotestosteronism -02/23 total testosterone was 13, free 0.14; s/p 100mg injection. Repeat total testosterone 451/free testosterone 14.4 03/27 Left upper and lower extremity weakness- improved -Head CT on 02/25 shows no acute changes. CT of the neck shows C6-[address] of lumbar spine shows L3-4 herniation with L3 nerve root impingement -Per NS, the disc herniation is nonsurgical. S/P course steroids Morbid obesity/debility: -PT daily to mobilize the patient more. -Slowly improving Insomnia -Continue Trazodone 100mg HS, PRN Zolpidem, HS Melatonin Constipation, chronic -laxatives/ enema as needed. Iron deficiency anemia-start iron sulfate. Left Knee Pain: possible strain, left knee x-ray unremarkable. Continue pain control. DVT prophylaxis: Lovenox DVT prophylaxis: Lovenox Discharge Planning: Pending SNF placement. Case management following- (1) Respiratory failure with hypoxia and hypercapnia Qualifiers: Chronicity: chronic Qualified Code(s): J96.11 - Chronic respiratory failure with hypoxia; J96.12 - Chronic respiratory failure with hypercapnia (1) Respiratory failure with hypoxia and hypercapnia Qualifiers: Chronicity: chronic Qualified Code(s): J96.11 - Chronic respiratory failure with hypoxia; J96.12 - Chronic respiratory failure with hypercapnia
--- NOTE | 2018-04-28 16:52 | P.PNGI ---
Physical Exam Vital signs: Vital Signs 04/27/18 20:00 04/27/18 20:31 04/28/18 00:00 Temperature 97.8 F 98.1 F Pulse Rate 65 64 60 Respiratory Rate 20 16 21 Blood Pressure 111/55 L 133/72 Pulse Oximetry 97 96 94 L 04/28/18 00:17 04/28/18 08:00 04/28/18 09:34 Temperature 98.3 F Pulse Rate 61 55 L 61 Respiratory Rate 16 20 19 Blood Pressure 132/69 Pulse Oximetry 95 04/28/18 12:00 Temperature 98.5 F Pulse Rate 58 L Respiratory Rate 20 Blood Pressure 117/58 L Pulse Oximetry 96 Intake & Output 04/27/18 04/28/18 04/28/18 18:59 06:59 18:59 Intake Total 480 / 480 Balance 480 / 480 Weight 141.8 kg Intake: Oral 480 / 480 Other: # Voids 5 # Incontinent Voids 3 # Bowel Movements 0 <Katya Navarro M - Last Filed: 04/28/18 16:48> Vital signs: Vital Signs 04/28/18 16:00 04/28/18 19:41 04/28/18 20:00 Temperature 98.2 F 98.0 F Pulse Rate 58 L 79 56 L Respiratory Rate 20 18 20 Blood Pressure 121/63 134/65 Pulse Oximetry 95 99 04/29/18 00:00 04/29/18 04:00 04/29/18 08:00 Temperature 98.0 F 97.4 F L 98.0 F Pulse Rate 60 58 L 55 L Respiratory Rate 20 18 20 Blood Pressure 116/56 L 122/79 109/52 L Pulse Oximetry 96 99 96 04/29/18 08:42 04/29/18 08:43 Temperature Pulse Rate 60 Respiratory Rate 20 Blood Pressure Pulse Oximetry 96 Intake & Output 04/28/18 04/29/18 04/29/18 18:59 06:59 18:59 Intake Total 720 / 720 240 / 240 Balance 720 / 720 240 / 240 Weight 142.1 kg Intake: Oral 720 / 720 240 / 240 Other: # Voids 3 # Incontinent Voids 4 Date of Last Bowel Movement 04/28/18 04/28/18 # Bowel Movements 1 <Kalyan Vizcaino - Last Filed: 04/29/18 14:26> Results - Labs CBC & Chem 7: 04/26/18 15:30 04/26/18 15:30 Laboratory Results - last 24 hr 04/27/18 04/27/18 04/28/18 16:59 19:57 08:05 POC Glucose 139 H 165 H 140 H 04/28/18 11:28 POC Glucose 216 H <Katya Navarro - Last Filed: 04/28/18 16:48> - Labs CBC & Chem 7: 04/26/18 15:30 04/26/18 15:30 Laboratory Results - last 24 hr 04/28/18 04/28/18 04/29/18 17:38 19:53 07:41 POC Glucose 77 131 H 129 H 04/29/18 12:16 POC Glucose 185 H <Kalyan Vizcaino - Last Filed: 04/29/18 14:26> Assessment and Plan - Plan Seen and examined with [employer], dysphagia for 02 to 03 weeks to solids with GERD. On Pepcid. Add protonix 40mg daily. EGD/Dilation on monday. Thank you 57-year-old male admission 03/25/2018 with respiratory distress and COPD and respiratory failure was on ventilator management per the patient for approximately 3 weeks and was stabilized he is now requiring oxygen at 4 L per nasal cannula in no obvious shortness of breath with head of bed elevated 45. Patient does cough and have occasional rhonchi which clears with cough. Dyspepsia, complaints of worsening since hospital admission Dysphasia complaints of food getting stuck or difficulty swallowing. Denies any problems taking his meds GERG symptoms of hoarseness since hospital stay for the past 1-2 weeks which is worsening. Patient's meds were up today to Protonix 40 mg twice daily and encourage patient to keep head of bed elevated even while he sleeps.. Patient is currently on Plavix since 03/25/2018 and aspirin 325 daily Constipation acute on chronic which could be related to his pain management and opioids MiraLAX is ineffective 04/28/2018 patient sitting up in the chair still complaining of some dyspepsia. Nausea but no vomiting Chief complaint is some constipation no BM 2 days states he is waiting on an enema today? Bowel regimen in place as needed. O2 per 2 L nasal cannula no shortness of breath. Still planning EGD with dilation Monday. [facility] const[facility]. Labs reviewed Plan Diet per attending as tolerated Hold Plavix and give ASA 81 mg daily. For now Consent for EGD with dilation Monday a.m. N.p.o. at midnight Monday night PPI ` Head of bed elevated 30 at least while awake and sleeping Iron supplements Relistor Patient was seen per myself and Dr. Vizcaino, note was written on his behalf <Katya Navarro - Last Filed: 04/28/18 16:48> - Plan Seen and examined with [employer]< still with dysphagia. Egd /dil planned for monday. PPI - Attending Attestation The exam, history, and the medical decision-making described in the above note were completed with the assistance of the mid-level provider. I reviewed and agree with the findings presented. I attest that I had a [id number] encounter with the patient on the same day, and personally performed and documented my assessment and findings in the medical record. <Kalyan Vizcaino - Last Filed: 04/29/18 14:26>
[2018-04-28] MEDS: Enoxaparin Inj 40 MG/0.4 ML Syringe SQ SCH (18:13)
[2018-04-28] MEDS: Sod Phosphate/Sod Biphosphate (Adult) Enema 133 ML Bottle RECTAL PRN (18:15)
[2018-04-28] MEDS: traZODone 50 MG Tablet PO SCH (21:58)
[2018-04-28] MEDS: Melatonin 5 MG Tablet PO PRN (22:00)
[2018-04-29] MEDS: LORazepam 1 MG Tablet PO PRN ×4 (00:46→23:00)
[2018-04-29] MEDS: Nystatin 100,000 UNITS/GM Powder 15 GM Bottle TOPICAL SCH ×3 (05:18→21:41)
[2018-04-29] MEDS: Psyllium Husk SF 3.4 GM in 5.8 GM Packet PO SCH ×2 (08:33→21:42)
[2018-04-29] MEDS: Gabapentin 100 MG Capsule PO SCH ×3 (08:33→17:01)
[2018-04-29] MEDS: Carvedilol 12.5 MG Tablet PO SCH ×2 (08:33→21:40)
[2018-04-29] MEDS: Amiodarone 200 MG Tablet PO SCH ×2 (08:33→21:40)
[2018-04-29] MEDS: Allopurinol 100 MG Tablet PO SCH (08:33)
[2018-04-29] MEDS: Famotidine 20 MG Tablet PO SCH ×2 (08:34→21:41)
[2018-04-29] MEDS: Methylnaltrexone Inj 12 MG/0.6 ML Vial SQ SCH (08:34)
[2018-04-29] MEDS: guaiFENesin 600 MG ER Tablet PO SCH ×2 (08:34→21:40)
[2018-04-29] MEDS: Furosemide 40 MG Tablet PO SCH ×2 (08:34→21:40)
[2018-04-29] MEDS: Senna/Docusate Sodium 8.6/50 MG Tablet PO SCH ×2 (08:34→21:40)
[2018-04-29] MEDS: Insulin NovoLOG Aspart Correctional Sugar Inj SQ SCH ×4 (08:35→21:42)
[2018-04-29] MEDS: Sodium Chloride 0.65% Nasal Drops/Spray 30 ML Bottle EACH NARE SCH ×2 (08:35→21:41)
[2018-04-29] MEDS: Calamine/Pramoxine Lotion 180 ML Bottle TOPICAL SCH ×2 (08:35→21:42)
[2018-04-29] MEDS: Insulin Detemir Inj 1,000 UNIT/10 ML Vial SQ SCH ×2 (08:36→21:42)
[2018-04-29] MEDS: Ferrous Sulfate Drops 15 MG/ML 50 ML Bottle PO SCH (08:36)
[2018-04-29] MEDS: Lactic Acid (Ammonium Lactate) 12% Lotion 225 GM Bottle TOPICAL SCH ×2 (08:36→21:42)
[2018-04-29] MEDS ORDERED: Sod Phosphate/Sod Biphosphate (Adult) Enema 133 ML Bottle RECTAL PRN (10:16)
--- NOTE | 2018-04-29 10:16 | P.PNGI ---
Subjective Interval history: Patient is resting in the bed States large firm bowel movements x2 after fleets enema. Denies any nausea vomiting or abdominal pain Dyspepsia symptoms improved with PPI Physical Exam Vital signs: Vital Signs 04/28/18 12:00 04/28/18 16:00 04/28/18 19:41 Temperature 98.5 F 98.2 F Pulse Rate 58 L 58 L 79 Respiratory Rate 20 20 18 Blood Pressure 117/58 L 121/63 Pulse Oximetry 96 95 04/28/18 20:00 04/29/18 00:00 04/29/18 04:00 Temperature 98.0 F 98.0 F 97.4 F L Pulse Rate 56 L 60 58 L Respiratory Rate 20 20 18 Blood Pressure 134/65 116/56 L 122/79 Pulse Oximetry 99 96 99 04/29/18 08:42 04/29/18 08:43 Temperature Pulse Rate 60 Respiratory Rate 20 Blood Pressure Pulse Oximetry 96 Intake & Output 04/28/18 04/29/18 04/29/18 18:59 06:59 18:59 Intake Total 720 / 720 240 / 240 Balance 720 / 720 240 / 240 Weight 142.1 kg Intake: Oral 720 / 720 240 / 240 Other: # Voids 3 # Incontinent Voids 4 Date of Last Bowel Movement 04/28/18 04/28/18 # Bowel Movements 1 - Constitutional no acute distress, morbidly obese - Routine HEENT Exam Head: Present: normocephalic ENT: Present: mucous membranes moist - Routine Neck Exam Present: supple (Obese) - Routine Respiratory Exam Present: accessory muscle use (But respiratory rate even and unlabored) - Routine Abdominal Exam Present: soft (Round, obese, no tenderness, active bowel sounds) - Routine Neurological Exam Present: alert Results - Labs CBC & Chem 7: 04/26/18 15:30 04/26/18 15:30 Laboratory Results - last 24 hr 04/28/18 04/28/18 04/28/18 11:28 17:38 19:53 POC Glucose 216 H 77 131 H 04/29/18 07:41 POC Glucose 129 H Assessment and Plan - Plan Seen and examined with [employer], dysphagia for 02 to 03 weeks to solids with GERD. On Pepcid. Add protonix 40mg daily. EGD/Dilation on monday. Thank you 57-year-old male admission 03/25/2018 with respiratory distress and COPD and respiratory failure was on ventilator management per the patient for approximately 3 weeks and was stabilized he is now requiring oxygen at 4 L per nasal cannula in no obvious shortness of breath with head of bed elevated 45. Patient does cough and have occasional rhonchi which clears with cough. Dyspepsia, complaints of worsening since hospital admission Dysphasia complaints of food getting stuck or difficulty swallowing. Denies any problems taking his meds GERG symptoms of hoarseness since hospital stay for the past 1-2 weeks which is worsening. Patient's meds were up today to Protonix 40 mg twice daily and encourage patient to keep head of bed elevated even while he sleeps.. Patient is currently on Plavix since 03/25/2018 and aspirin 325 daily Constipation acute on chronic which could be related to his pain management and opioids MiraLAX is ineffective 04/28/2018 patient sitting up in the chair still complaining of some dyspepsia. Nausea but no vomiting Chief complaint is some constipation no BM 2 days states he is waiting on an enema today? Bowel regimen in place as needed. O2 per 2 L nasal cannula no shortness of breath. Still planning EGD with dilation Monday. [facility] const[facility]. Labs reviewed 04/29/2018 patient's resting in the bed denies any current GI symptoms of dyspepsia nausea or vomiting or abdominal pain. Patient had good results from fleets enema yesterday with 2 large formed hard BMs. Will need to continue daily regimen for constipation. Plan EGD with patient Monday discussed with patient and plan for n.p.o. at midnight tonight Plan Diet per attending as tolerated, cardiac diabetic Hold Plavix Consent for EGD with dilation Monday a.m. initiated N.p.o. at midnight Monday night PPI ` continue Iron supplements Relistor, fleets enema as needed every 2-3 days which seems to be effective for patient Patient was seen per myself and Dr. Vizcaino, note was written on his behalf
--- NOTE | 2018-04-29 11:47 | P.PN ---
Subjective Interval history: awake and alert no complains of chest pain ro shortness of breath swallowing clear well but feels reflux and "somewhat feels some block" Physical Exam Vital signs: Vital Signs 04/28/18 12:00 04/28/18 16:00 04/28/18 19:41 Temperature 98.5 F 98.2 F Pulse Rate 58 L 58 L 79 Respiratory Rate 20 20 18 Blood Pressure 117/58 L 121/63 Pulse Oximetry 96 95 04/28/18 20:00 04/29/18 00:00 04/29/18 04:00 Temperature 98.0 F 98.0 F 97.4 F L Pulse Rate 56 L 60 58 L Respiratory Rate 20 20 18 Blood Pressure 134/65 116/56 L 122/79 Pulse Oximetry 99 96 99 04/29/18 08:00 04/29/18 08:42 04/29/18 08:43 Temperature 98.0 F Pulse Rate 55 L 60 Respiratory Rate 20 20 Blood Pressure 109/52 L Pulse Oximetry 96 96 Intake & Output 04/28/18 04/29/18 04/29/18 18:59 06:59 18:59 Intake Total 720 / 720 240 / 240 Balance 720 / 720 240 / 240 Weight 142.1 kg Intake: Oral 720 / 720 240 / 240 Other: # Voids 3 # Incontinent Voids 4 Date of Last Bowel Movement 04/28/18 04/28/18 # Bowel Movements 1 Narrative: Not in distress. CARDIOVASCULAR: Regular rate and rhythm. No murmur appreciated. RESPIRATORY: No accessory muscle use. Clear to auscultation. Breath sounds equal bilaterally. GASTROINTESTINAL: Abdomen soft, non-tender, nondistended. Normoactive bowel sounds x4. Obese. MUSCULOSKELETAL: No obvious deformities. Chronic bilateral lower extremity edema. Left knee- non tender no erythema/edema, no palpable effusion, active ROM intact although flexion limited by body habitus. NEUROLOGICAL: Awake and alert. No obvious cranial nerve deficits. Motor grossly within normal limits. Moving all extremities spontaneously. Normal speech. Results - Labs CBC & Chem 7: 04/26/18 15:30 04/26/18 15:30 Laboratory Results - last 24 hr 04/28/18 04/28/18 04/28/18 11:28 17:38 19:53 POC Glucose 216 H 77 131 H 04/29/18 07:41 POC Glucose 129 H Assessment and Plan - Assessment (1) Respiratory failure with hypoxia and hypercapnia Code(s): J96.91 - Respiratory failure, unspecified with hypoxia; J96.92 - Respiratory failure, unspecified with hypercapnia Status: Acute (2) Acute kidney injury superimposed on CKD Code(s): N17.9 - Acute kidney failure, unspecified; N18.9 - Chronic kidney disease, unspecified Status: Acute (3) Acute metabolic encephalopathy Code(s): G93.41 - Metabolic encephalopathy Status: Resolved (4) Altered mental status Code(s): R41.82 - Altered mental status, unspecified Status: Resolved (5) Obesity Code(s): E66.9 - Obesity, unspecified Status: Chronic - Plan 57 years old male Dysphagia with GERD symptoms -nectar thick, mechanical soft after speech therapy evaluation - GI consuted - plan for EGD on Monday- tomorrow Acute on chronic hypercapnic respiratory insufficiency, on home oxygen. PMH COPD , Obstructive sleep apnea. Does not tolerate CPAP mask due to the noise. Status post treatment of MRSA pneumonia -Pulmonology following, CPAP as needed, [place] -04/23 CXR reviewed: Basilar airspace disease predominantly on the left side, likely atelectasis, continue IS. CHF, not in exacerbation, CAD s/p CABG. echo from September showed EF 55-60% -On ASA, Amiodarone 200mg BID, Coreg 12.5mg BID, Clonidine 0.1mg Q8, Plavix 75mg daily, Lasix 40 mg twice daily Hypertension -Continue carvedilol, clonidine Diabetes -Supplemental sliding scale -Levemir 10 units twice daily on a regular diet per patient's request.-- mechanical soft Scrotal pain- improved Per Dr. Woodruff likely from anasarca. Ultrasound noted. Hypotestosteronism -02/23 total testosterone was 13, free 0.14; s/p 100mg injection. Repeat total testosterone 451/free testosterone 14.4 03/27 Left upper and lower extremity weakness- improved -Head CT on 02/25 shows no acute changes. CT of the neck shows C6-[address] of lumbar spine shows L3-4 herniation with L3 nerve root impingement -Per NS, the disc herniation is nonsurgical. S/P course steroids Morbid obesity/debility: -PT daily to mobilize the patient more. -Slowly improving Insomnia -Continue Trazodone 100mg HS, PRN Zolpidem, HS Melatonin Constipation, chronic -laxatives/ enema as needed. Iron deficiency anemia-start iron sulfate. Left Knee Pain: possible strain, left knee x-ray unremarkable. Continue pain control. DVT prophylaxis: Lovenox DVT prophylaxis: Lovenox Discharge Planning: Pending SNF placement. Case management following- (1) Respiratory failure with hypoxia and hypercapnia Qualifiers: Chronicity: chronic Qualified Code(s): J96.11 - Chronic respiratory failure with hypoxia; J96.12 - Chronic respiratory failure with hypercapnia (1) Respiratory failure with hypoxia and hypercapnia Qualifiers: Chronicity: chronic Qualified Code(s): J96.11 - Chronic respiratory failure with hypoxia; J96.12 - Chronic respiratory failure with hypercapnia
--- NOTE | 2018-04-29 14:35 | P.PNPL ---
Subjective Interval history: 57 YO Obese male with TANA Works with PT Breathing about the same On 4LNC, desaturates No new complaints Physical Exam Vital signs: Vital Signs 04/28/18 16:00 04/28/18 19:41 04/28/18 20:00 Temperature 98.2 F 98.0 F Pulse Rate 58 L 79 56 L Respiratory Rate 20 18 20 Blood Pressure 121/63 134/65 Pulse Oximetry 95 99 04/29/18 00:00 04/29/18 04:00 04/29/18 08:00 Temperature 98.0 F 97.4 F L 98.0 F Pulse Rate 60 58 L 55 L Respiratory Rate 20 18 20 Blood Pressure 116/56 L 122/79 109/52 L Pulse Oximetry 96 99 96 04/29/18 08:42 04/29/18 08:43 Temperature Pulse Rate 60 Respiratory Rate 20 Blood Pressure Pulse Oximetry 96 Intake & Output 04/28/18 04/29/18 04/29/18 18:59 06:59 18:59 Intake Total 720 / 720 240 / 240 Balance 720 / 720 240 / 240 Weight 142.1 kg Intake: Oral 720 / 720 240 / 240 Other: # Voids 3 # Incontinent Voids 4 Date of Last Bowel Movement 04/28/18 04/28/18 # Bowel Movements 1 GENERAL: WBWN, obese WM, mild sob SKIN: Warm and dry. HEAD: Normocephalic. EYES: No scleral icterus. No injection or drainage. NECK: Supple, trachea midline. No JVD or lymphadenopathy. CARDIOVASCULAR: Regular rate and rhythm without murmurs, gallops, or rubs. RESPIRATORY: Breath sounds equal bilaterally. No accessory muscle use. GASTROINTESTINAL: Abdomen soft, non-tender, nondistended. MUSCULOSKELETAL: No cyanosis, + edema. BACK: Nontender without obvious deformity. No CVA tenderness. Assessment and Plan - Plan IMPRESSION: TANA COPD CHF Morbid obesity Gen Weakness/ deconditioning PLAN: Supplement 02, 4LNC Keep sat 88-92% Diurease Aerosol nebs Physical therapy. Does't want to use CPAP
[2018-04-29] MEDS: Enoxaparin Inj 40 MG/0.4 ML Syringe SQ SCH (18:00)
[2018-04-29] MEDS: traZODone 50 MG Tablet PO SCH (21:41)
[2018-04-29] MEDS ORDERED: Chlorhexidine Gluconate 2% 1 Pack (2 Cloths) TOPICAL SCH (22:45)
[2018-04-29] MEDS ORDERED: Metoprolol Tartrate 25 MG Tablet PO SCH (22:45)
[2018-04-29] MEDS ORDERED: Sodium Chlor 0.9% Inj 500 ML IV.SIG SCH (23:00)
[2018-04-30] MEDS: LORazepam 1 MG Tablet PO PRN ×4 (05:01→23:54)
[2018-04-30] MEDS: Nystatin 100,000 UNITS/GM Powder 15 GM Bottle TOPICAL SCH ×3 (05:02→21:25)
[2018-04-30] MEDS: guaiFENesin 600 MG ER Tablet PO SCH ×2 (09:26→21:21)
[2018-04-30] MEDS: Gabapentin 100 MG Capsule PO SCH ×3 (09:28→17:26)
[2018-04-30] MEDS: Allopurinol 100 MG Tablet PO SCH (09:28)
[2018-04-30] MEDS: Amiodarone 200 MG Tablet PO SCH ×2 (09:28→21:22)
[2018-04-30] MEDS: Famotidine 20 MG Tablet PO SCH ×2 (09:29→21:22)
[2018-04-30] MEDS: Carvedilol 12.5 MG Tablet PO SCH ×2 (09:29→21:22)
[2018-04-30] MEDS: Senna/Docusate Sodium 8.6/50 MG Tablet PO SCH ×2 (09:29→21:22)
[2018-04-30] MEDS: Furosemide 40 MG Tablet PO SCH ×2 (09:29→21:22)
[2018-04-30] MEDS: Psyllium Husk SF 3.4 GM in 5.8 GM Packet PO SCH ×2 (09:30→21:23)
[2018-04-30] MEDS: Insulin NovoLOG Aspart Correctional Sugar Inj SQ SCH ×4 (09:31→21:23)
[2018-04-30] MEDS: Methylnaltrexone Inj 12 MG/0.6 ML Vial SQ SCH ×2 (09:32→09:38)
[2018-04-30] MEDS: Sodium Chloride 0.65% Nasal Drops/Spray 30 ML Bottle EACH NARE SCH ×2 (09:42→21:24)
[2018-04-30] MEDS: Ferrous Sulfate Drops 15 MG/ML 50 ML Bottle PO SCH (09:43)
[2018-04-30] MEDS: Calamine/Pramoxine Lotion 180 ML Bottle TOPICAL SCH ×2 (09:44→21:24)
[2018-04-30] MEDS: Insulin Detemir Inj 1,000 UNIT/10 ML Vial SQ SCH ×2 (11:26→21:22)
[2018-04-30] MEDS ORDERED: Lidocaine PF 1% Inj 5 ML Syringe INFILTRATN ONE (12:00)
--- NOTE | 2018-04-30 12:35 | P.PN ---
Subjective Interval history: no complain looking forward to EGD today Physical Exam Vital signs: Vital Signs 04/29/18 16:00 04/29/18 20:00 04/29/18 20:57 Temperature 98.2 F 97.2 F L Pulse Rate 58 L 57 L 56 L Respiratory Rate 20 17 17 Blood Pressure 112/56 L 127/61 Pulse Oximetry 96 95 97 04/30/18 00:00 04/30/18 04:00 04/30/18 08:00 Temperature 97.5 F L 98 F 98.6 F Pulse Rate 56 L 57 L 55 L Respiratory Rate 17 17 18 Blood Pressure 115/54 L 124/57 L 110/54 L Pulse Oximetry 97 93 L 98 04/30/18 08:42 Temperature Pulse Rate 58 L Respiratory Rate 12 Blood Pressure Pulse Oximetry 98 Intake & Output 04/29/18 04/30/18 04/30/18 18:59 06:59 18:59 Intake Total 560 / 560 940 / 940 Balance 560 / 560 940 / 940 Weight 142.7 kg Intake: Oral 560 / 560 940 / 940 Other: # Voids 4 3 Date of Last Bowel Movement 04/28/18 04/28/18 # Bowel Movements 0 Narrative: Not in distress. CARDIOVASCULAR: Regular rate and rhythm. No murmur appreciated. RESPIRATORY: No accessory muscle use. Clear to auscultation. Breath sounds equal bilaterally. GASTROINTESTINAL: Abdomen soft, non-tender,. Normoactive bowel sounds x4. Obese. MUSCULOSKELETAL: No obvious deformities. Chronic + bilateral lower extremity edema. Left knee- non tender no erythema/edema, no palpable effusion, active ROM intact although flexion limited by body habitus. NEUROLOGICAL: Awake and alert. No obvious cranial nerve deficits. Motor grossly within normal limits. Moving all extremities spontaneously. Normal speech. Results - Labs CBC & Chem 7: 04/26/18 15:30 04/26/18 15:30 Laboratory Results - last 24 hr 04/29/18 04/29/18 04/30/18 16:44 19:38 07:58 POC Glucose 115 H 163 H 104 04/30/18 11:24 POC Glucose 120 H Assessment and Plan - Assessment (1) Respiratory failure with hypoxia and hypercapnia Code(s): J96.91 - Respiratory failure, unspecified with hypoxia; J96.92 - Respiratory failure, unspecified with hypercapnia Status: Acute (2) Acute kidney injury superimposed on CKD Code(s): N17.9 - Acute kidney failure, unspecified; N18.9 - Chronic kidney disease, unspecified Status: Acute (3) Acute metabolic encephalopathy Code(s): G93.41 - Metabolic encephalopathy Status: Resolved (4) Altered mental status Code(s): R41.82 - Altered mental status, unspecified Status: Resolved (5) Obesity Code(s): E66.9 - Obesity, unspecified Status: Chronic - Plan 57 years old male Dysphagia with GERD symptoms -nectar thick, mechanical soft after speech therapy evaluation - GI ff - plan for EGD today Acute on chronic hypercapnic respiratory insufficiency, on home oxygen. PMH COPD , Obstructive sleep apnea. Does not tolerate CPAP mask due to the noise. Status post treatment of MRSA pneumonia -Pulmonology following, CPAP as needed, DuoNebs -04/23 CXR reviewed: Basilar airspace disease predominantly on the left side, likely atelectasis, continue IS. CHF, not in exacerbation, CAD s/p CABG. echo from September showed EF 55-60% -On ASA, Amiodarone 200mg BID, Coreg 12.5mg BID, Clonidine 0.1mg Q8, Plavix 75mg daily, Lasix 40 mg twice daily Hypertension -Continue carvedilol, clonidine Diabetes -Supplemental sliding scale -Levemir 10 units twice daily on a regular diet per patient's request.-- mechanical soft Scrotal pain- improved Per Dr. Woodruff likely from anasarca. Ultrasound noted. Hypotestosteronism -02/23 total testosterone was 13, free 0.14; s/p 100mg injection. Repeat total testosterone 451/free testosterone 14.4 7 Left upper and lower extremity weakness- improved -Head CT on 02/25 shows no acute changes. CT of the neck shows C6-[address] of lumbar spine shows L3-4 herniation with L3 nerve root impingement -Per NS, the disc herniation is nonsurgical. S/P course steroids Morbid obesity/debility: -PT daily to mobilize the patient more. -Slowly improving Insomnia -Continue Trazodone 100mg HS, PRN Zolpidem, HS Melatonin Constipation, chronic -laxatives/ enema as needed. Iron deficiency anemia-start iron sulfate. Left Knee Pain: possible strain, left knee x-ray unremarkable. Continue pain control. better range of motion DVT prophylaxis: Lovenox DVT prophylaxis: Lovenox Discharge Planning: Pending SNF placement. Case management following- (1) Respiratory failure with hypoxia and hypercapnia Qualifiers: Chronicity: chronic Qualified Code(s): J96.11 - Chronic respiratory failure with hypoxia; J96.12 - Chronic respiratory failure with hypercapnia (1) Respiratory failure with hypoxia and hypercapnia Qualifiers: Chronicity: chronic Qualified Code(s): J96.11 - Chronic respiratory failure with hypoxia; J96.12 - Chronic respiratory failure with hypercapnia
[2018-04-30] MEDS: Lactic Acid (Ammonium Lactate) 12% Lotion 225 GM Bottle TOPICAL SCH ×2 (13:23→21:24)
--- NOTE | 2018-04-30 14:08 | GIPROC ---
[facility] [address] [facility]. [facility], [address] EGD WITH DILATION PROCEDURE REPORT EXAM DATE: 04/30/2018 PATIENT NAME: Buster Jackson V MR#: [id number] BIRTHDATE: 1960 ATTENDING: Jennie Joiner MD ORDER #: [id number] FIELD SERVICE REPRESENTATIVE: Fatemeh Patton Faria, Juan, and Myra Apodaca STATUS: inpatient INDICATIONS: The patient is a 57 yr old male here for an EGD with dilation due to dysphagia reflux PROCEDURE PERFORMED: EGD w/ biopsy EGD w/ dilation of esophagus via guidewire MEDICATIONS: None and Per Anesthesia. TOPICAL ANESTHETIC: Cetacaine [place] CONSENT: The patient understands the risks and benefits of the procedure and understands that these risks include, but are not limited to: sedation, allergic reaction, infection, perforation and/or bleeding. Alternative means of evaluation and treatment include, among others: physical exam, x-rays, and/or surgical intervention. The patient elects to proceed with this endoscopic procedure. medical equipment was checked for proper function. Hand hygiene and appropriate measures for infection prevention was taken. After the risks, benefits and alternatives of the procedure were thoroughly explained, Informed consent was verified, confirmed and timeout was successfully executed by the treatment team. The patient was anesthetized with topical anesthesia and the Pentax EG-[id number] endoscope was introduced through the mouth and advanced to the second portion of the duodenum. The instrument was slowly withdrawn as the mucosa was fully examined. Gastritis antrum-biopsy esophagitis distal esophagus-biopsy stricture distal esophagus-s/p dilatation Savary 16. Dilation was performed at gastroesophageal junction. DILATOR: SIZE(S): RESISTANCE: HEME: APPEARANCE: Dilator: Savary over guidewire Size(s): 16 COMMENT: Retroflexed views revealed a hiatal hernia ADVERSE EVENTS: There were no complications. IMPRESSIONS: 1. Gastritis antrum-biopsy esophagitis distal esophagus-biopsy stricture distal esophagus-s/p dilatation Savary 16 2. Retroflexed views revealed a hiatal hernia RECOMMENDATIONS: 1. Await biopsy results. Biopsy results will not be ready for 7-10 days. If you don't hear from us in two weeks, call our office for biopsy results. 2. Anti-reflux regimen 3. Resume previous diet as per speech pathologist colonoscopy when better and able to tolerate prep REPEAT EXAM: Return 3 years EGD Jennie Joiner MD eSigned: Jennie Joiner MD 04/30/2018 2:08 PM cc: PATIENT NAME: Buster Jackson V MR#: [id number]
[2018-04-30] MEDS: Enoxaparin Inj 40 MG/0.4 ML Syringe SQ SCH (19:02)
--- NOTE | 2018-04-30 19:57 | P.PNPL ---
Subjective Interval history: 57 YO Obese male with TANA Works with PT Breathing about the same On 4LNC, No new complaints Physical Exam Vital signs: Vital Signs 04/29/18 20:00 04/29/18 20:57 04/30/18 00:00 Temperature 97.2 F L 97.5 F L Pulse Rate 57 L 56 L 56 L Respiratory Rate 17 17 17 Blood Pressure 127/61 115/54 L Pulse Oximetry 95 97 97 04/30/18 04:00 04/30/18 08:00 04/30/18 08:42 Temperature 98 F 98.6 F Pulse Rate 57 L 55 L 58 L Respiratory Rate 17 18 12 Blood Pressure 124/57 L 110/54 L Pulse Oximetry 93 L 98 98 04/30/18 12:00 04/30/18 16:00 04/30/18 19:38 Temperature 98.5 F 97.6 F Pulse Rate 52 L 65 65 Respiratory Rate 18 18 16 Blood Pressure 113/55 L 115/63 Pulse Oximetry 99 99 99 Intake & Output 04/30/18 04/30/18 05/01/18 06:59 18:59 06:59 Intake Total 940 / 940 510 / 510 Balance 940 / 940 510 / 510 Weight 142.7 kg Intake: Oral 940 / 940 360 / 360 Anesthesia Amount 150 / 150 Other: # Voids 3 3 Date of Last Bowel Movement 04/28/18 04/28/18 # Bowel Movements 0 GENERAL: Obese WM, NAD SKIN: Warm and dry. HEAD: Normocephalic. EYES: No scleral icterus. No injection or drainage. NECK: Supple, trachea midline. No JVD or lymphadenopathy. CARDIOVASCULAR: Regular rate and rhythm without murmurs, gallops, or rubs. RESPIRATORY: Breath sounds equal bilaterally. No accessory muscle use. GASTROINTESTINAL: Abdomen soft, non-tender, nondistended. MUSCULOSKELETAL: No cyanosis, or edema. BACK: Nontender without obvious deformity. No CVA tenderness. Assessment and Plan - Plan IMPRESSION: TANA COPD CHF Morbid obesity Gen Weakness/ deconditioning PLAN: Supplement , 4LNC Keep sat 88-92% Diurease Aerosol nebs Physical therapy.
[2018-04-30] MEDS: traZODone 50 MG Tablet PO SCH (21:22)
[2018-04-30] MEDS: Zolpidem Tartrate 5 MG Tablet PO PRN (21:30)
[2018-05-01] MEDS: Nystatin 100,000 UNITS/GM Powder 15 GM Bottle TOPICAL SCH ×3 (05:24→23:37)
[2018-05-01] MEDS: LORazepam 1 MG Tablet PO PRN ×3 (06:55→23:03)
[2018-05-01] MEDS: Insulin NovoLOG Aspart Correctional Sugar Inj SQ SCH ×4 (08:42→22:00)
[2018-05-01] MEDS: Carvedilol 12.5 MG Tablet PO SCH ×2 (10:34→22:48)
[2018-05-01] MEDS: Allopurinol 100 MG Tablet PO SCH (10:35)
[2018-05-01] MEDS: Furosemide 40 MG Tablet PO SCH ×2 (10:35→22:47)
[2018-05-01] MEDS: Gabapentin 100 MG Capsule PO SCH ×3 (10:35→18:22)
[2018-05-01] MEDS: Famotidine 20 MG Tablet PO SCH ×2 (10:35→22:48)
[2018-05-01] MEDS: Senna/Docusate Sodium 8.6/50 MG Tablet PO SCH ×2 (10:35→22:47)
[2018-05-01] MEDS: Amiodarone 200 MG Tablet PO SCH ×2 (10:37→22:46)
[2018-05-01] MEDS: guaiFENesin 600 MG ER Tablet PO SCH ×2 (10:37→22:47)
[2018-05-01] MEDS: Insulin Detemir Inj 1,000 UNIT/10 ML Vial SQ SCH ×2 (10:37→22:51)
[2018-05-01] MEDS: Psyllium Husk SF 3.4 GM in 5.8 GM Packet PO SCH ×2 (10:43→22:52)
[2018-05-01] MEDS: Methylnaltrexone Inj 12 MG/0.6 ML Vial SQ SCH (10:47)
--- NOTE | 2018-05-01 11:21 | P.PNGI ---
Subjective Interval history: Pt reports improvement in his swallowing today. Tolerating mechanical soft and nectar thick liquid diet. Reports constipation since admission to the hospital , has been admitted for 145 days. Pt reports has needed enemas to help with having BMs. Last colonoscopy in 2006, states hemorrhoids otherwise normal. <Fariha Perez - Last Filed: 05/01/18 11:14> Physical Exam Vital signs: Vital Signs 04/30/18 12:00 04/30/18 16:00 04/30/18 19:38 Temperature 98.5 F 97.6 F Pulse Rate 52 L 65 65 Respiratory Rate 18 18 16 Blood Pressure 113/55 L 115/63 Pulse Oximetry 99 99 99 04/30/18 20:00 05/01/18 00:00 05/01/18 04:00 Temperature 98.3 F 97.9 F 98.0 F Pulse Rate 56 L 68 54 L Respiratory Rate 20 16 20 Blood Pressure 110/57 L 109/59 L 107/54 L Pulse Oximetry 96 98 97 05/01/18 08:00 05/01/18 08:01 Temperature 97.9 F Pulse Rate 53 L 56 L Respiratory Rate 20 12 Blood Pressure 119/56 L Pulse Oximetry 95 98 Intake & Output 04/30/18 05/01/18 05/01/18 18:59 06:59 18:59 Intake Total 510 / 510 480 / 480 Balance 510 / 510 480 / 480 Weight 143.8 kg Intake: Oral 360 / 360 480 / 480 Anesthesia Amount 150 / 150 Other: # Voids 3 # Incontinent Voids 4 Date of Last Bowel Movement 04/28/18 04/28/18 # Bowel Movements 0 # Incontinent Bowel Movements 0 - Constitutional no acute distress - Routine HEENT Exam Head: Present: normocephalic, atraumatic - Routine Respiratory Exam Absent: accessory muscle use - Routine Abdominal Exam Present: soft, normoactive bowel sounds. Absent: tenderness Comments: morbidly obese - Routine Skin Exam Present: dry, warm - Routine Neurological Exam Present: alert, oriented X3 <Fariha Perez - Last Filed: 05/01/18 11:14> Vital signs: Vital Signs 04/30/18 19:38 04/30/18 20:00 05/01/18 00:00 Temperature 98.3 F 97.9 F Pulse Rate 65 56 L 68 Respiratory Rate 16 20 16 Blood Pressure 110/57 L 109/59 L Pulse Oximetry 99 96 98 05/01/18 04:00 05/01/18 08:00 05/01/18 08:01 Temperature 98.0 F 97.9 F Pulse Rate 54 L 53 L 56 L Respiratory Rate 20 20 12 Blood Pressure 107/54 L 119/56 L Pulse Oximetry 97 95 98 05/01/18 12:00 05/01/18 15:50 Temperature 98.6 F Pulse Rate 58 L 54 L Respiratory Rate 20 12 Blood Pressure 118/59 L Pulse Oximetry 95 Intake & Output 04/30/18 05/01/18 05/01/18 18:59 06:59 18:59 Intake Total 510 / 510 480 / 480 Balance 510 / 510 480 / 480 Weight 143.8 kg Intake: Oral 360 / 360 480 / 480 Anesthesia Amount 150 / 150 Other: # Voids 3 # Incontinent Voids 4 Date of Last Bowel Movement 04/28/18 04/28/18 # Bowel Movements 0 # Incontinent Bowel Movements 0 <Jennie Joiner - Last Filed: 05/01/18 17:18> Results - Labs CBC & Chem 7: 04/26/18 15:30 04/26/18 15:30 Laboratory Results - last 24 hr 04/30/18 04/30/18 04/30/18 11:24 17:23 19:56 POC Glucose 120 H 139 H 152 H 05/01/18 08:42 POC Glucose 133 H <Fariha Perez - Last Filed: 05/01/18 11:14> - Labs CBC & Chem 7: 04/26/18 15:30 04/26/18 15:30 Laboratory Results - last 24 hr 04/30/18 04/30/18 05/01/18 17:23 19:56 08:42 POC Glucose 139 H 152 H 133 H 05/01/18 12:46 POC Glucose 166 H <Jennie Joiner - Last Filed: 05/01/18 17:18> Assessment and Plan - Plan Assessment: - Dysphagia Complaints of food getting stuck, has never had EGD with dilatation in the past S/P EGD yesterday --> Gastritis, antrum. Esophagitis distal esophagus. Stricture distal esophagus S/P dilatation Savary 16. Hiatal hernia. Speech has recommended mechanical soft and nectar consistency thickened liquids. - Constipation- States began since long admission to the hospital, has been here 145 days. Has had multiple enemas to help with BMs Last colonoscopy was 2006, states hemorrhoids otherwise normal. Agreeable to have colonoscopy inpatient Plan: Colonoscopy tomorrow Obtain consent Clear liquid diet today Golytely prep NPO after MN SSE x 2 in AM Diet per [employer] Further recommendations to follow Pt has been seen and examined by myself and Dr. Joiner and this note is written on her behalf <Fariha Perez - Last Filed: 05/01/18 11:14> - Attending Attestation agree with above <Jennie Joiner - Last Filed: 05/01/18 17:18>
[2018-05-01] MEDS: Sodium Chloride 0.65% Nasal Drops/Spray 30 ML Bottle EACH NARE SCH ×2 (11:30→22:50)
[2018-05-01] MEDS: Calamine/Pramoxine Lotion 180 ML Bottle TOPICAL SCH ×2 (11:30→22:50)
[2018-05-01] MEDS: Lactic Acid (Ammonium Lactate) 12% Lotion 225 GM Bottle TOPICAL SCH ×2 (11:31→22:50)
[2018-05-01] MEDS: Ferrous Sulfate Drops 15 MG/ML 50 ML Bottle PO SCH (11:31)
--- NOTE | 2018-05-01 12:00 | P.PN ---
Subjective Interval history: no complains- swallowing better requesting for regular food- complaining about current diet no chest discomfort or hsorntess of breath Physical Exam Vital signs: Vital Signs 04/30/18 12:00 04/30/18 16:00 04/30/18 19:38 Temperature 98.5 F 97.6 F Pulse Rate 52 L 65 65 Respiratory Rate 18 18 16 Blood Pressure 113/55 L 115/63 Pulse Oximetry 99 99 99 04/30/18 20:00 05/01/18 00:00 05/01/18 04:00 Temperature 98.3 F 97.9 F 98.0 F Pulse Rate 56 L 68 54 L Respiratory Rate 20 16 20 Blood Pressure 110/57 L 109/59 L 107/54 L Pulse Oximetry 96 98 97 05/01/18 08:00 05/01/18 08:01 Temperature 97.9 F Pulse Rate 53 L 56 L Respiratory Rate 20 12 Blood Pressure 119/56 L Pulse Oximetry 95 98 Intake & Output 04/30/18 05/01/18 05/01/18 18:59 06:59 18:59 Intake Total 510 / 510 480 / 480 Balance 510 / 510 480 / 480 Weight 143.8 kg Intake: Oral 360 / 360 480 / 480 Anesthesia Amount 150 / 150 Other: # Voids 3 # Incontinent Voids 4 Date of Last Bowel Movement 04/28/18 04/28/18 # Bowel Movements 0 # Incontinent Bowel Movements 0 Narrative: Not in distress. Regular rate and rhythm. No murmur appreciated. Clear to auscultation. Breath sounds equal bilaterally. Abdomen soft, non-tender,. Normoactive bowel sounds x4. Obese. Chronic + bilateral lower extremity edema. Left knee- non tender no erythema/ edema, no palpable effusion, active ROM intact although flexion limited by body habitus. NEUROLOGICAL: Awake and alert. No obvious cranial nerve deficits. Motor grossly within normal limits. Moving all extremities spontaneously. Normal speech. Results - Labs CBC & Chem 7: 04/26/18 15:30 04/26/18 15:30 Laboratory Results - last 24 hr 04/30/18 04/30/18 05/01/18 17:23 19:56 08:42 POC Glucose 139 H 152 H 133 H - Procedures 04/30- EGD with dilatation Assessment and Plan - Assessment (1) Respiratory failure with hypoxia and hypercapnia Code(s): J96.91 - Respiratory failure, unspecified with hypoxia; J96.92 - Respiratory failure, unspecified with hypercapnia Status: Acute (2) Acute kidney injury superimposed on CKD Code(s): N17.9 - Acute kidney failure, unspecified; N18.9 - Chronic kidney disease, unspecified Status: Acute (3) Acute metabolic encephalopathy Code(s): G93.41 - Metabolic encephalopathy Status: Resolved (4) Altered mental status Code(s): R41.82 - Altered mental status, unspecified Status: Resolved (5) Obesity Code(s): E66.9 - Obesity, unspecified Status: Chronic - Plan 57 years old male Dysphagia with GERD symptoms S/P EGD with dilatation- 04/30 - start regular consistency diet -monitor Acute on chronic hypercapnic respiratory insufficiency, on home oxygen. PMH COPD , Obstructive sleep apnea. Does not tolerate CPAP mask due to the noise. Status post treatment of MRSA pneumonia -Pulmonology following, CPAP as needed, DuoNebs -04/23 CXR reviewed: Basilar airspace disease predominantly on the left side, likely atelectasis, continue IS. CHF, not in exacerbation, CAD s/p CABG. echo from September showed EF 55-60% -On ASA, Amiodarone 200mg BID, Coreg 12.5mg BID, Clonidine 0.1mg Q8, Plavix 75mg daily, Lasix 40 mg twice daily Hypertension -Continue carvedilol, clonidine Diabetes -Supplemental sliding scale -Levemir 10 units twice daily on ADA/cardiac diet Scrotal pain- improved Per Dr. Woodruff likely from anasarca. Ultrasound noted. Hypotestosteronism -02/23 total testosterone was 13, free 0.14; s/p 100mg injection. Repeat total testosterone 451/free testosterone 14.4 03/27 Left upper and lower extremity weakness- improved -Head CT on 02/25 shows no acute changes. CT of the neck shows C6-[address] of lumbar spine shows L3-4 herniation with L3 nerve root impingement -Per NS, the disc herniation is nonsurgical. S/P course steroids Morbid obesity/debility: -PT daily to mobilize the patient more. -Slowly improving Insomnia -Continue Trazodone 100mg HS, PRN Zolpidem, HS Melatonin Constipation, chronic -laxatives/ enema as needed. Iron deficiency anemia-start iron sulfate. Left Knee Pain: possible strain, left knee x-ray unremarkable. Continue pain control. better range of motion DVT prophylaxis: Lovenox DVT prophylaxis: Lovenox Discharge Planning: Pending SNF placement. Case management following- (1) Respiratory failure with hypoxia and hypercapnia Qualifiers: Chronicity: chronic Qualified Code(s): J96.11 - Chronic respiratory failure with hypoxia; J96.12 - Chronic respiratory failure with hypercapnia (1) Respiratory failure with hypoxia and hypercapnia Qualifiers: Chronicity: chronic Qualified Code(s): J96.11 - Chronic respiratory failure with hypoxia; J96.12 - Chronic respiratory failure with hypercapnia
[2018-05-01] MEDS ORDERED: PEG 3350/E-Lyte Soln 4000 ML Bottle PO ONE (16:00)
[2018-05-01] MEDS: Enoxaparin Inj 40 MG/0.4 ML Syringe SQ SCH (18:23)
--- NOTE | 2018-05-01 19:34 | P.PNPL ---
Subjective Interval history: 57 YO Obese male with TANA Works with PT Breathing about the same On 4LNC, No new complaints Physical Exam Vital signs: Vital Signs 04/30/18 19:38 04/30/18 20:00 05/01/18 00:00 Temperature 98.3 F 97.9 F Pulse Rate 65 56 L 68 Respiratory Rate 16 20 16 Blood Pressure 110/57 L 109/59 L Pulse Oximetry 99 96 98 05/01/18 04:00 05/01/18 08:00 05/01/18 08:01 Temperature 98.0 F 97.9 F Pulse Rate 54 L 53 L 56 L Respiratory Rate 20 20 12 Blood Pressure 107/54 L 119/56 L Pulse Oximetry 97 95 98 05/01/18 12:00 05/01/18 15:50 05/01/18 16:00 Temperature 98.6 F 98.6 F Pulse Rate 58 L 54 L 56 L Respiratory Rate 20 12 20 Blood Pressure 118/59 L 105/59 L Pulse Oximetry 95 97 Intake & Output 05/01/18 05/01/18 05/02/18 06:59 18:59 06:59 Intake Total 480 / 480 600 / 600 Balance 480 / 480 600 / 600 Weight 143.8 kg Intake: Oral 480 / 480 600 / 600 Other: # Voids 4 # Incontinent Voids 4 Date of Last Bowel Movement 04/28/18 # Incontinent Bowel Movements 0 GENERAL:Obese WM, NAD SKIN: Warm and dry. HEAD: Normocephalic. EYES: No scleral icterus. No injection or drainage. NECK: Supple, trachea midline. No JVD or lymphadenopathy. CARDIOVASCULAR: Regular rate and rhythm without murmurs, gallops, or rubs. RESPIRATORY: Breath sounds equal bilaterally. No accessory muscle use. GASTROINTESTINAL: Abdomen soft, non-tender, nondistended. MUSCULOSKELETAL: No cyanosis, or edema. BACK: Nontender without obvious deformity. No CVA tenderness. Assessment and Plan - Plan IMPRESSION: TANA COPD CHF Morbid obesity Gen Weakness/ deconditioning PLAN: Supplement , 4LNC Keep sat 88-92% Diurease Aerosol nebs Physical therapy. plans for colonoscopy in AM
[2018-05-01] MEDS: traZODone 50 MG Tablet PO SCH (22:47)
[2018-05-02] MEDS: Nystatin 100,000 UNITS/GM Powder 15 GM Bottle TOPICAL SCH ×3 (06:21→22:25)
[2018-05-02] MEDS: LORazepam 1 MG Tablet PO PRN ×3 (06:49→22:25)
[2018-05-02] MEDS: Senna/Docusate Sodium 8.6/50 MG Tablet PO SCH ×2 (10:35→21:13)
[2018-05-02] MEDS: guaiFENesin 600 MG ER Tablet PO SCH ×2 (10:35→21:13)
[2018-05-02] MEDS: Allopurinol 100 MG Tablet PO SCH (10:36)
[2018-05-02] MEDS: Gabapentin 100 MG Capsule PO SCH ×3 (10:36→18:58)
[2018-05-02] MEDS: Amiodarone 200 MG Tablet PO SCH ×2 (10:36→21:13)
[2018-05-02] MEDS: Famotidine 20 MG Tablet PO SCH ×2 (10:36→21:13)
[2018-05-02] MEDS: Furosemide 40 MG Tablet PO SCH ×2 (10:37→21:13)
[2018-05-02] MEDS: Carvedilol 12.5 MG Tablet PO SCH ×2 (10:37→21:13)
[2018-05-02] MEDS: Insulin Detemir Inj 1,000 UNIT/10 ML Vial SQ SCH ×2 (10:37→21:14)
[2018-05-02] MEDS: Insulin NovoLOG Aspart Correctional Sugar Inj SQ SCH ×4 (10:38→21:14)
[2018-05-02] MEDS: Psyllium Husk SF 3.4 GM in 5.8 GM Packet PO SCH ×2 (10:38→21:13)
[2018-05-02] MEDS: Calamine/Pramoxine Lotion 180 ML Bottle TOPICAL SCH ×2 (10:39→21:14)
[2018-05-02] MEDS: Sodium Chloride 0.65% Nasal Drops/Spray 30 ML Bottle EACH NARE SCH ×2 (10:40→21:14)
[2018-05-02] MEDS: Lactic Acid (Ammonium Lactate) 12% Lotion 225 GM Bottle TOPICAL SCH ×2 (10:40→21:14)
--- NOTE | 2018-05-02 11:44 | P.PN ---
Subjective Interval history: some loose stools- - got prep for colonoscopy today no complainswanting to get 2200 KCAL ADA swallowing much imrpoved- no dysphagia Physical Exam Vital signs: Vital Signs 05/01/18 12:00 05/01/18 15:50 05/01/18 16:00 Temperature 98.6 F 98.6 F Pulse Rate 58 L 54 L 56 L Respiratory Rate 20 12 20 Blood Pressure 118/59 L 105/59 L Pulse Oximetry 95 97 05/01/18 20:00 05/01/18 21:06 05/02/18 00:00 Temperature 97.5 F L 97.1 F L Pulse Rate 57 L 53 L 56 L Respiratory Rate 17 18 17 Blood Pressure 109/62 115/71 Pulse Oximetry 100 99 100 05/02/18 04:00 05/02/18 04:44 05/02/18 08:00 Temperature 97.1 F L 97.3 F L Pulse Rate 58 L 65 63 Respiratory Rate 17 19 20 Blood Pressure 123/74 119/60 Pulse Oximetry 97 96 98 05/02/18 09:01 Temperature Pulse Rate 69 Respiratory Rate 18 Blood Pressure Pulse Oximetry 95 Intake & Output 05/01/18 05/02/18 05/02/18 18:59 06:59 18:59 Intake Total 600 / 600 240 / 240 Balance 600 / 600 240 / 240 Weight 142.5 kg Intake: Oral 600 / 600 240 / 240 Other: # Voids 4 3 Date of Last Bowel Movement 04/28/18 04/28/18 # Bowel Movements 3 Narrative: Not in distress. Regular rate and rhythm. No murmur appreciated. Clear to auscultation. Breath sounds equal bilaterally. Abdomen soft, non-tender,. Normoactive bowel sounds x4. Obese. Chronic + bilateral lower extremity edema. Left knee- non tender no erythema/ edema, no palpable effusion, active ROM intact although flexion limited by body habitus. NEUROLOGICAL: Awake and alert. No obvious cranial nerve deficits. Motor grossly within normal limits. Moving all extremities spontaneously. Normal speech. Results - Labs CBC & Chem 7: 04/26/18 15:30 04/26/18 15:30 Laboratory Results - last 24 hr 05/01/18 05/01/18 05/01/18 12:46 18:19 22:46 POC Glucose 166 H 153 H 150 H 05/02/18 08:02 POC Glucose 120 H - Procedures 8/6- EGD with dilatation Assessment and Plan - Assessment (1) Respiratory failure with hypoxia and hypercapnia Code(s): J96.91 - Respiratory failure, unspecified with hypoxia; J96.92 - Respiratory failure, unspecified with hypercapnia Status: Acute (2) Acute kidney injury superimposed on CKD Code(s): N17.9 - Acute kidney failure, unspecified; N18.9 - Chronic kidney disease, unspecified Status: Acute (3) Acute metabolic encephalopathy Code(s): G93.41 - Metabolic encephalopathy Status: Resolved (4) Altered mental status Code(s): R41.82 - Altered mental status, unspecified Status: Resolved (5) Obesity Code(s): E66.9 - Obesity, unspecified Status: Chronic - Plan 57 years old male Dysphagia with GERD symptoms S/P EGD with dilatation- 04/30 - good po regular consistency diet -monitor - for colonscopy today Acute on chronic hypercapnic respiratory insufficiency, on home oxygen. PMH COPD , Obstructive sleep apnea. Does not tolerate CPAP mask due to the noise. Status post treatment of MRSA pneumonia -Pulmonology following, CPAP as needed, [place] -04/23 CXR reviewed: Basilar airspace disease predominantly on the left side, likely atelectasis, continue IS. CHF, not in exacerbation, CAD s/p CABG. echo from September showed EF 55-60% -On ASA, Amiodarone 200mg BID, Coreg 12.5mg BID, Clonidine 0.1mg Q8, Plavix 75mg daily, Lasix 40 mg twice daily Hypertension -Continue carvedilol 12.5 mg po bid , clonidine- decrease clondiine to 0.1 mg po bid Diabetes -Supplemental sliding scale -Levemir 10 units twice daily on ADA/cardiac diet Scrotal pain- improved Per Dr. Woodruff likely from anasarca. Ultrasound noted. Hypotestosteronism -02/23 total testosterone was 13, free 0.14; s/p 100mg injection. Repeat total testosterone 451/free testosterone 14.4 03/27 Left upper and lower extremity weakness- improved -Head CT on 02/25 shows no acute changes. CT of the neck shows C6-[address] of lumbar spine shows L3-4 herniation with L3 nerve root impingement -Per NS, the disc herniation is nonsurgical. S/P course steroids Morbid obesity/debility: -PT daily to mobilize the patient more. -Slowly improving Insomnia -Continue Trazodone 100mg HS, PRN Zolpidem, HS Melatonin Constipation, chronic -laxatives/ enema as needed. Iron deficiency anemia-start iron sulfate. Left Knee Pain: possible strain, left knee x-ray unremarkable. Continue pain control. better range of motion DVT prophylaxis: Lovenox DVT prophylaxis: Lovenox Discharge Planning: Pending SNF placement. Case management following- (1) Respiratory failure with hypoxia and hypercapnia Qualifiers: Chronicity: chronic Qualified Code(s): J96.11 - Chronic respiratory failure with hypoxia; J96.12 - Chronic respiratory failure with hypercapnia (1) Respiratory failure with hypoxia and hypercapnia Qualifiers: Chronicity: chronic Qualified Code(s): J96.11 - Chronic respiratory failure with hypoxia; J96.12 - Chronic respiratory failure with hypercapnia
[2018-05-02] MEDS ORDERED: Lidocaine PF 1% Inj 5 ML Syringe INFILTRATN ONE (12:00)
--- NOTE | 2018-05-02 15:48 | GIPROC ---
[facility] [address] [facility]. [facility], [address] COLONOSCOPY PROCEDURE REPORT EXAM DATE: 05/02/2018 PATIENT NAME: Buster Jackson V MR #: [id number] BIRTHDATE: 1960 ENDOSCOPIST: Jennie Joiner MD ORDER #: [id number] CARE TRANSITIONS NURSE: Radha Lynn and Fatemeh Patton STATUS: inpatient INDICATIONS: The patient is a 57 yr old male here for a colonoscopy due to gi bleeding , constipation PROCEDURE PERFORMED: Colonoscopy with biopsy MEDICATIONS: None and Per Anesthesia. PREP QUALITY: poor PREP TYPE:Other: ESTIMATED BLOOD LOSS: None CONSENT: The patient understands the risks and benefits of the procedure and understands that these risks include, but are not limited to: sedation, allergic reaction, infection, perforation and/or bleeding. Alternative means of evaluation and treatment include, among others: physical exam, x-rays, and/or surgical intervention. The patient elects to proceed with this endoscopic procedure. medical equipment was checked for proper function. Hand hygiene and appropriate measures for infection prevention was taken. After the risks, benefits and alternatives of the procedure were thoroughly explained, Informed consent was verified, confirmed and timeout was successfully executed by the treatment team. A digital exam revealed external hemorrhoids The Pentax [id number] endoscope was introduced through the anus and advanced to the cecum, which was identified by both the appendix and ileocecal valve. The instrument was then slowly withdrawn as the colon was fully examined. COLON FINDINGS: Poor prep superficial ulcer in rectum-biopsy agressive washing. Retroflexed views revealed internal hemorrhoids The scope was then completely withdrawn from the patient and the procedure terminated. PROCEDURE WITHDRAWAL TIME:15minutes ADVERSE EVENTS: There were no complications. IMPRESSIONS: 1. Poor prep superficial ulcer in rectum agressive washing 2. Retroflexed views revealed internal hemorrhoids 3. Revealed external hemorrhoids RECOMMENDATIONS: 1. Benefiber 2 tsp daily 2. High fiber diet RECALL: Return 3 months Colonoscopy Jennie Joiner MD eSigned: Jennie Joiner MD 05/02/2018 3:48 PM cc:
[2018-05-02] MEDS: Methylnaltrexone Inj 12 MG/0.6 ML Vial SQ SCH (17:29)
--- NOTE | 2018-05-02 18:25 | P.PNPL ---
Subjective Interval history: 57 YO Obese male with TANA Works with PT Breathing about the same On 4LNC, Had Colonoscopy done Physical Exam Vital signs: Vital Signs 05/01/18 20:00 05/01/18 21:06 05/02/18 00:00 Temperature 97.5 F L 97.1 F L Pulse Rate 57 L 53 L 56 L Respiratory Rate 17 18 17 Blood Pressure 109/62 115/71 Pulse Oximetry 100 99 100 05/02/18 04:00 05/02/18 04:44 05/02/18 08:00 Temperature 97.1 F L 97.3 F L Pulse Rate 58 L 65 63 Respiratory Rate 17 19 20 Blood Pressure 123/74 119/60 Pulse Oximetry 97 96 98 05/02/18 09:01 Temperature Pulse Rate 69 Respiratory Rate 18 Blood Pressure Pulse Oximetry 95 Intake & Output 05/01/18 05/02/18 05/02/18 18:59 06:59 18:59 Intake Total 600 / 600 240 / 240 300 / 300 Balance 600 / 600 240 / 240 300 / 300 Weight 142.5 kg Intake: Oral 600 / 600 240 / 240 Anesthesia Amount 300 / 300 Other: # Voids 4 3 Date of Last Bowel Movement 04/28/18 04/28/18 05/01/18 # Bowel Movements 3 GENERAL: Obese Wm,NAD SKIN: Warm and dry. HEAD: Normocephalic. EYES: No scleral icterus. No injection or drainage. NECK: Supple, trachea midline. No JVD or lymphadenopathy. CARDIOVASCULAR: Regular rate and rhythm without murmurs, gallops, or rubs. RESPIRATORY: Breath sounds equal bilaterally. No accessory muscle use. GASTROINTESTINAL: Abdomen soft, non-tender, nondistended. MUSCULOSKELETAL: No cyanosis, or edema. BACK: Nontender without obvious deformity. No CVA tenderness. Assessment and Plan - Plan IMPRESSION: TANA COPD CHF Morbid obesity Gen Weakness/ deconditioning PLAN: Supplement , 4LNC Keep sat 88-92% Diurease Aerosol nebs
[2018-05-02] MEDS: Enoxaparin Inj 40 MG/0.4 ML Syringe SQ SCH (19:00)
[2018-05-02] MEDS: Ferrous Sulfate Drops 15 MG/ML 50 ML Bottle PO SCH (19:01)
[2018-05-02] MEDS: Zolpidem Tartrate 5 MG Tablet PO PRN (21:13)
[2018-05-02] MEDS: traZODone 50 MG Tablet PO SCH (21:15)
[2018-05-03] MEDS: LORazepam 1 MG Tablet PO PRN ×3 (04:43→18:24)
[2018-05-03] MEDS: Nystatin 100,000 UNITS/GM Powder 15 GM Bottle TOPICAL SCH ×3 (05:30→21:03)
[2018-05-03] MEDS: Amiodarone 200 MG Tablet PO SCH ×2 (09:46→20:58)
[2018-05-03] MEDS: Furosemide 40 MG Tablet PO SCH ×2 (09:47→20:58)
[2018-05-03] MEDS: Allopurinol 100 MG Tablet PO SCH (09:47)
[2018-05-03] MEDS: guaiFENesin 600 MG ER Tablet PO SCH ×2 (09:47→20:58)
[2018-05-03] MEDS: Senna/Docusate Sodium 8.6/50 MG Tablet PO SCH ×2 (09:47→20:58)
[2018-05-03] MEDS: Famotidine 20 MG Tablet PO SCH ×2 (09:47→20:57)
[2018-05-03] MEDS: Gabapentin 100 MG Capsule PO SCH ×3 (09:47→18:24)
[2018-05-03] MEDS: Carvedilol 12.5 MG Tablet PO SCH ×2 (09:47→20:58)
[2018-05-03] MEDS: Insulin Detemir Inj 1,000 UNIT/10 ML Vial SQ SCH ×2 (09:48→20:57)
[2018-05-03] MEDS: Methylnaltrexone Inj 12 MG/0.6 ML Vial SQ SCH (09:48)
[2018-05-03] MEDS: Psyllium Husk SF 3.4 GM in 5.8 GM Packet PO SCH ×2 (09:49→21:02)
[2018-05-03] MEDS: Calamine/Pramoxine Lotion 180 ML Bottle TOPICAL SCH (09:49)
[2018-05-03] MEDS: Insulin NovoLOG Aspart Correctional Sugar Inj SQ SCH ×4 (09:49→20:56)
[2018-05-03] MEDS: Sodium Chloride 0.65% Nasal Drops/Spray 30 ML Bottle EACH NARE SCH (09:49)
[2018-05-03] MEDS: Lactic Acid (Ammonium Lactate) 12% Lotion 225 GM Bottle TOPICAL SCH ×2 (09:49→21:01)
[2018-05-03] MEDS: Ferrous Sulfate Drops 15 MG/ML 50 ML Bottle PO SCH (09:50)
--- NOTE | 2018-05-03 11:01 | P.PNGI ---
Subjective Interval history: Pt resting in bed, reports no issues with swallowing. Denies any GI complaints at this time. <Fariha Perez - Last Filed: 05/03/18 10:59> Physical Exam Vital signs: Vital Signs 05/02/18 12:00 05/02/18 16:00 05/02/18 19:36 Temperature 98.1 F 97.8 F Pulse Rate 61 59 L Respiratory Rate 20 20 Blood Pressure 119/72 117/60 Pulse Oximetry 95 97 95 05/02/18 20:00 05/02/18 21:46 05/03/18 00:00 Temperature 97.7 F 98.0 F Pulse Rate 71 60 Respiratory Rate 20 18 19 Blood Pressure 126/68 118/69 Pulse Oximetry 95 96 05/03/18 04:00 05/03/18 05:15 05/03/18 08:00 Temperature 97.8 F 98.1 F Pulse Rate 65 66 Respiratory Rate 19 18 18 Blood Pressure 107/65 108/57 L Pulse Oximetry 98 97 05/03/18 08:52 Temperature Pulse Rate 66 Respiratory Rate 18 Blood Pressure Pulse Oximetry 97 Intake & Output 05/02/18 05/03/18 05/03/18 18:59 06:59 18:59 Intake Total 300 / 300 480 / 480 Balance 300 / 300 480 / 480 Weight 140.3 kg Intake: Oral 480 / 480 Anesthesia Amount 300 / 300 Other: # Incontinent Voids 3 Date of Last Bowel Movement 05/01/18 - Constitutional no acute distress - Routine HEENT Exam Head: Present: normocephalic, atraumatic - Routine Abdominal Exam Present: soft, normoactive bowel sounds. Absent: tenderness Comments: obese - Routine Skin Exam Present: dry, warm - Routine Neurological Exam Present: alert, oriented X3 <Fariha Perez - Last Filed: 05/03/18 10:59> Vital signs: Vital Signs 05/02/18 19:36 05/02/18 20:00 05/02/18 21:46 Temperature 97.7 F Pulse Rate 71 Respiratory Rate 20 18 Blood Pressure 126/68 Pulse Oximetry 95 95 05/03/18 00:00 05/03/18 04:00 05/03/18 05:15 Temperature 98.0 F 97.8 F Pulse Rate 60 65 Respiratory Rate 19 19 18 Blood Pressure 118/69 107/65 Pulse Oximetry 96 98 05/03/18 08:00 05/03/18 08:52 05/03/18 12:00 Temperature 98.1 F 98.2 F Pulse Rate 66 66 67 Respiratory Rate 18 18 18 Blood Pressure 108/57 L 116/57 L Pulse Oximetry 97 97 96 05/03/18 12:21 Temperature Pulse Rate 62 Respiratory Rate 20 Blood Pressure Pulse Oximetry Intake & Output 05/02/18 05/03/18 05/03/18 18:59 06:59 18:59 Intake Total 300 / 300 480 / 480 Balance 300 / 300 480 / 480 Weight 140.3 kg Intake: Oral 480 / 480 Anesthesia Amount 300 / 300 Other: # Incontinent Voids 3 Date of Last Bowel Movement 05/01/18 05/01/18 <Jennie Joiner - Last Filed: 05/03/18 17:09> Results - Labs CBC & Chem 7: 04/26/18 15:30 04/26/18 15:30 Laboratory Results - last 24 hr 05/02/18 05/02/18 05/02/18 12:34 18:07 21:08 POC Glucose 121 H 121 H 157 H 05/03/18 07:57 POC Glucose 103 - Procedures 04/30- EGD with dilatation <Fariha Perez - Last Filed: 05/03/18 10:59> - Labs CBC & Chem 7: 04/26/18 15:30 04/26/18 15:30 Laboratory Results - last 24 hr 05/02/18 05/02/18 05/03/18 18:07 21:08 07:57 POC Glucose 121 H 157 H 103 05/03/18 12:05 POC Glucose 159 H <Jennie Joiner - Last Filed: 05/03/18 17:09> Assessment and Plan - Plan Assessment: - Dysphagia Complaints of food getting stuck, has never had EGD with dilatation in the past S/P EGD yesterday --> Gastritis, antrum. Esophagitis distal esophagus. Stricture distal esophagus S/P dilatation Savary 16. Hiatal hernia. Speech has recommended mechanical soft and nectar consistency thickened liquids. - Constipation- States began since long admission to the hospital, has been here 145 days. Has had multiple enemas to help with BMs Last colonoscopy was 2006, states hemorrhoids otherwise normal. Agreeable to have colonoscopy inpatient (05/03) Pt with no GI complaints at this time. S/P colonoscopy yesterday Colonoscopy --> Poor prep. Superficial ulcer in rectum-biopsy. Aggressive washing. Internal hemorrhoids. Plan: Repeat colonoscopy outpatient in3 months High fiber diet Diet per [facility] Our service will sign off, please reconsult as needed Have pt follow up with GI after DC Pt has been seen and examined by myself and Dr. Joiner and this note is written on her behalf <Fariha Perez - Last Filed: 05/03/18 10:59> - Attending Attestation agree with above <Jennie Joiner - Last Filed: 05/03/18 17:09>
--- NOTE | 2018-05-03 12:52 | P.PN ---
Subjective Interval history: states swallowoing better- no feeling of food stuck Physical Exam Vital signs: Vital Signs 05/02/18 16:00 05/02/18 19:36 05/02/18 20:00 Temperature 97.8 F 97.7 F Pulse Rate 59 L 71 Respiratory Rate 20 20 Blood Pressure 117/60 126/68 Pulse Oximetry 97 95 95 05/02/18 21:46 05/03/18 00:00 05/03/18 04:00 Temperature 98.0 F 97.8 F Pulse Rate 60 65 Respiratory Rate 18 19 19 Blood Pressure 118/69 107/65 Pulse Oximetry 96 98 05/03/18 05:15 05/03/18 08:00 05/03/18 08:52 Temperature 98.1 F Pulse Rate 66 66 Respiratory Rate 18 18 18 Blood Pressure 108/57 L Pulse Oximetry 97 97 05/03/18 12:00 05/03/18 12:21 Temperature 98.2 F Pulse Rate 67 62 Respiratory Rate 18 20 Blood Pressure 116/57 L Pulse Oximetry 96 Intake & Output 05/02/18 05/03/18 05/03/18 18:59 06:59 18:59 Intake Total 300 / 300 480 / 480 Balance 300 / 300 480 / 480 Weight 140.3 kg Intake: Oral 480 / 480 Anesthesia Amount 300 / 300 Other: # Incontinent Voids 3 Date of Last Bowel Movement 05/01/18 Narrative: Not in distress. Regular rate and rhythm. No murmur appreciated. Clear to auscultation. Breath sounds equal bilaterally. Abdomen soft, non-tender,. Normoactive bowel sounds x4. Obese. Chronic + bilateral lower extremity edema. Left knee- non tender no erythema/ edema, no palpable effusion, active ROM intact although flexion limited by body habitus. NEUROLOGICAL: Awake and alert. No obvious cranial nerve deficits. Motor grossly within normal limits. Moving all extremities spontaneously. Normal speech. Results - Labs CBC & Chem 7: 04/26/18 15:30 04/26/18 15:30 Laboratory Results - last 24 hr 05/02/18 05/02/18 05/03/18 18:07 21:08 07:57 POC Glucose 121 H 157 H 103 05/03/18 12:05 POC Glucose 159 H - Procedures 04/30- EGD with dilatation 05/02- colonoscopy- small rectal ulcer, internal and external hemorrhoids Assessment and Plan - Assessment (1) Respiratory failure with hypoxia and hypercapnia Code(s): J96.91 - Respiratory failure, unspecified with hypoxia; J96.92 - Respiratory failure, unspecified with hypercapnia Status: Acute (2) Acute kidney injury superimposed on CKD Code(s): N17.9 - Acute kidney failure, unspecified; N18.9 - Chronic kidney disease, unspecified Status: Acute (3) Acute metabolic encephalopathy Code(s): G93.41 - Metabolic encephalopathy Status: Resolved (4) Altered mental status Code(s): R41.82 - Altered mental status, unspecified Status: Resolved (5) Obesity Code(s): E66.9 - Obesity, unspecified Status: Chronic - Plan 57 years old male Dysphagia with GERD symptoms S/P EGD with dilatation- 04/30 S/P colonoscopy 05/02- poorp pre- some rectal ulcer/ hemorrhoids - good po regular consistency diet -monitor - bowel regimen Acute on chronic hypercapnic respiratory insufficiency, on home oxygen. PMH COPD , Obstructive sleep apnea. Does not tolerate CPAP mask due to the noise. Status post treatment of MRSA pneumonia -Pulmonology following, CPAP as needed, [place] -04/23 CXR reviewed: Basilar airspace disease predominantly on the left side, likely atelectasis, continue IS. CHF, not in exacerbation, CAD s/p CABG. echo from September showed EF 55-60% -On ASA, Amiodarone 200mg BID, Coreg 12.5mg BID, Clonidine 0.1mg Q8, Plavix 75mg daily, Lasix 40 mg twice daily Hypertension -Continue carvedilol 12.5 mg po bid , clonidine- decrease clondiine to 0.1 mg po bid Diabetes -Supplemental sliding scale -Levemir 10 units twice daily on ADA/cardiac diet - requesting for PB Scrotal pain- improved Per Dr. Woodruff likely from anasarca. Ultrasound noted. Hypotestosteronism -02/23 total testosterone was 13, free 0.14; s/p 100mg injection. Repeat total testosterone 451/free testosterone 14.4 03/27 Left upper and lower extremity weakness- improved -Head CT on 02/25 shows no acute changes. CT of the neck shows C6-[address] of lumbar spine shows L3-4 herniation with L3 nerve root impingement -Per NS, the disc herniation is nonsurgical. S/P course steroids Morbid obesity/debility: -PT daily to mobilize the patient more. -Slowly improving Insomnia -Continue Trazodone 100mg HS, PRN Zolpidem, HS Melatonin Constipation, chronic -laxatives/ enema as needed. Iron deficiency anemia-start iron sulfate. Left Knee Pain: possible strain, left knee x-ray unremarkable. Continue pain control. better range of motion DVT prophylaxis: Lovenox DVT prophylaxis: Lovenox Discharge Planning: Pending SNF placement. Case management following- (1) Respiratory failure with hypoxia and hypercapnia Qualifiers: Chronicity: chronic Qualified Code(s): J96.11 - Chronic respiratory failure with hypoxia; J96.12 - Chronic respiratory failure with hypercapnia (1) Respiratory failure with hypoxia and hypercapnia Qualifiers: Chronicity: chronic Qualified Code(s): J96.11 - Chronic respiratory failure with hypoxia; J96.12 - Chronic respiratory failure with hypercapnia
--- NOTE | 2018-05-03 17:43 | P.PNPL ---
Subjective Interval history: 57 YO Obese male with TANA Works with PT Breathing about the same On 4LNC Eating better Physical Exam Vital signs: Vital Signs 05/02/18 19:36 05/02/18 20:00 05/02/18 21:46 Temperature 97.7 F Pulse Rate 71 Respiratory Rate 20 18 Blood Pressure 126/68 Pulse Oximetry 95 95 05/03/18 00:00 05/03/18 04:00 05/03/18 05:15 Temperature 98.0 F 97.8 F Pulse Rate 60 65 Respiratory Rate 19 19 18 Blood Pressure 118/69 107/65 Pulse Oximetry 96 98 05/03/18 08:00 05/03/18 08:52 05/03/18 12:00 Temperature 98.1 F 98.2 F Pulse Rate 66 66 67 Respiratory Rate 18 18 18 Blood Pressure 108/57 L 116/57 L Pulse Oximetry 97 97 96 05/03/18 12:21 Temperature Pulse Rate 62 Respiratory Rate 20 Blood Pressure Pulse Oximetry Intake & Output 05/02/18 05/03/18 05/03/18 18:59 06:59 18:59 Intake Total 300 / 300 480 / 480 Balance 300 / 300 480 / 480 Weight 140.3 kg Intake: Oral 480 / 480 Anesthesia Amount 300 / 300 Other: # Incontinent Voids 3 Date of Last Bowel Movement 05/01/18 05/01/18 GENERAL: Obese WM, NAD SKIN: Warm and dry. HEAD: Normocephalic. EYES: No scleral icterus. No injection or drainage. NECK: Supple, trachea midline. No JVD or lymphadenopathy. CARDIOVASCULAR: Regular rate and rhythm without murmurs, gallops, or rubs. RESPIRATORY: Breath sounds equal bilaterally. No accessory muscle use. GASTROINTESTINAL: Abdomen soft, non-tender, nondistended. MUSCULOSKELETAL: No cyanosis, or edema. BACK: Nontender without obvious deformity. No CVA tenderness. Assessment and Plan - Plan IMPRESSION: TANA COPD CHF Morbid obesity Gen Weakness/ deconditioning PLAN: Supplement , 4LNC Keep sat 88-92% Diurease Aerosol nebs
[2018-05-03] MEDS: Enoxaparin Inj 40 MG/0.4 ML Syringe SQ SCH (18:23)
[2018-05-03] MEDS: traZODone 50 MG Tablet PO SCH (20:57)
[2018-05-04] MEDS: Calamine/Pramoxine Lotion 180 ML Bottle TOPICAL SCH ×3 (00:07→21:37)
[2018-05-04] MEDS: Sodium Chloride 0.65% Nasal Drops/Spray 30 ML Bottle EACH NARE SCH ×3 (00:07→21:37)
[2018-05-04] MEDS: LORazepam 1 MG Tablet PO PRN ×4 (00:24→21:40)
[2018-05-04] MEDS: Nystatin 100,000 UNITS/GM Powder 15 GM Bottle TOPICAL SCH ×3 (05:28→21:40)
[2018-05-04] MEDS: Insulin Detemir Inj 1,000 UNIT/10 ML Vial SQ SCH ×2 (09:00→21:38)
[2018-05-04] MEDS: Lactic Acid (Ammonium Lactate) 12% Lotion 225 GM Bottle TOPICAL SCH ×2 (09:00→21:38)
[2018-05-04] MEDS: Amiodarone 200 MG Tablet PO SCH ×2 (09:00→21:38)
[2018-05-04] MEDS: Furosemide 40 MG Tablet PO SCH ×2 (09:25→21:38)
[2018-05-04] MEDS: Carvedilol 12.5 MG Tablet PO SCH ×2 (09:27→21:38)
[2018-05-04] MEDS: guaiFENesin 600 MG ER Tablet PO SCH ×2 (09:27→21:39)
[2018-05-04] MEDS: Famotidine 20 MG Tablet PO SCH ×2 (09:27→21:40)
[2018-05-04] MEDS: Allopurinol 100 MG Tablet PO SCH (09:27)
[2018-05-04] MEDS: Psyllium Husk SF 3.4 GM in 5.8 GM Packet PO SCH ×2 (09:28→21:39)
[2018-05-04] MEDS: Ferrous Sulfate Drops 15 MG/ML 50 ML Bottle PO SCH (09:28)
[2018-05-04] MEDS: Methylnaltrexone Inj 12 MG/0.6 ML Vial SQ SCH (09:30)
[2018-05-04] MEDS: Gabapentin 100 MG Capsule PO SCH ×3 (09:31→17:04)
[2018-05-04] MEDS: Senna/Docusate Sodium 8.6/50 MG Tablet PO SCH ×2 (09:31→21:40)
[2018-05-04] MEDS: Insulin NovoLOG Aspart Correctional Sugar Inj SQ SCH ×4 (10:01→21:39)
--- NOTE | 2018-05-04 12:08 | P.PN ---
Subjective Interval history: good blood sugar readings wants to be taken off ADA diet otherwise o=- nocompalins Physical Exam Vital signs: Vital Signs 05/03/18 12:21 05/03/18 16:00 05/03/18 19:55 Temperature 98.0 F Pulse Rate 62 63 Respiratory Rate 20 18 Blood Pressure 129/64 Pulse Oximetry 97 97 05/03/18 19:57 05/03/18 20:00 05/04/18 00:00 Temperature 98.0 F 97.5 F L Pulse Rate 61 61 60 Respiratory Rate 16 20 18 Blood Pressure 112/59 L 116/62 Pulse Oximetry 97 99 05/04/18 04:00 05/04/18 07:43 05/04/18 08:00 Temperature 98.0 F 98.4 F Pulse Rate 61 62 65 Respiratory Rate 18 22 21 Blood Pressure 125/63 119/56 L Pulse Oximetry 97 98 Intake & Output 05/03/18 05/04/18 05/04/18 18:59 06:59 18:59 Intake Total 960 / 960 240 / 240 Balance 960 / 960 240 / 240 Weight 140.1 kg Intake: Oral 960 / 960 240 / 240 Other: # Incontinent Voids 4 4 Date of Last Bowel Movement 05/01/18 # Bowel Movements 0 Narrative: Not in distress. Regular rate and rhythm. No murmur appreciated. Clear to auscultation. Breath sounds equal bilaterally. Abdomen soft, non-tender,. Normoactive bowel sounds x4. Obese. Chronic tr bilateral lower extremity edema. Left knee- non tender no erythema/ edema, no palpable effusion, active ROM intact although flexion limited by body habitus. NEUROLOGICAL: Awake and alert. No obvious cranial nerve deficits. Motor grossly within normal limits. Moving all extremities spontaneously. Normal speech. Results - Labs CBC & Chem 7: 04/26/18 15:30 04/26/18 15:30 Laboratory Results - last 24 hr 05/03/18 05/03/18 05/03/18 12:05 17:39 20:54 POC Glucose 159 H 109 120 H 05/04/18 08:03 POC Glucose 100 - Procedures 04/30- EGD with dilatation 05/02- colonoscopy- small rectal ulcer, internal and external hemorrhoids Assessment and Plan - Assessment (1) Respiratory failure with hypoxia and hypercapnia Code(s): J96.91 - Respiratory failure, unspecified with hypoxia; J96.92 - Respiratory failure, unspecified with hypercapnia Status: Acute (2) Acute kidney injury superimposed on CKD Code(s): N17.9 - Acute kidney failure, unspecified; N18.9 - Chronic kidney disease, unspecified Status: Acute (3) Acute metabolic encephalopathy Code(s): G93.41 - Metabolic encephalopathy Status: Resolved (4) Altered mental status Code(s): R41.82 - Altered mental status, unspecified Status: Resolved (5) Obesity Code(s): E66.9 - Obesity, unspecified Status: Chronic - Plan 57 years old male Dysphagia with GERD symptoms S/P EGD with dilatation- 04/30 S/P colonoscopy 05/02- poorp pre- some rectal ulcer/ hemorrhoids - good po regular consistency diet -monitor - bowel regimen Acute on chronic hypercapnic respiratory insufficiency, on home oxygen. PMH COPD , Obstructive sleep apnea. Does not tolerate CPAP mask due to the noise. Status post treatment of MRSA pneumonia -Pulmonology following, CPAP as needed, [place] -04/23 CXR reviewed: Basilar airspace disease predominantly on the left side, likely atelectasis, continue IS. CHF, not in exacerbation, CAD s/p CABG. echo from September showed EF 55-60% -On ASA, Amiodarone 200mg BID, Coreg 12.5mg BID, Clonidine 0.1mg Q8, Plavix 75mg daily, Lasix 40 mg twice daily Hypertension -Continue carvedilol 12.5 mg po bid , clonidine- decrease clondiine to 0.1 mg po bid Diabetes Mellitus, type 2- good readings -Supplemental sliding scale -Levemir 10 units twice daily on ADA/cardiac diet - requesting for PB Scrotal pain- improved Per Dr. Woodruff likely from anasarca. Ultrasound noted. Hypotestosteronism -02/23 total testosterone was 13, free 0.14; s/p 100mg injection. Repeat total testosterone 451/free testosterone 14.4 03/27 Left upper and lower extremity weakness- improved -Head CT on 02/25 shows no acute changes. CT of the neck shows C6-[address] of lumbar spine shows L3-4 herniation with L3 nerve root impingement -Per NS, the disc herniation is nonsurgical. S/P course steroids Morbid obesity/debility: -PT daily to mobilize the patient more. -Slowly improving Insomnia -Continue Trazodone 100mg HS, PRN Zolpidem, HS Melatonin Constipation, chronic -laxatives/ enema as needed. Iron deficiency anemia-start iron sulfate. Left Knee Pain: possible strain, left knee x-ray unremarkable. Continue pain control. better range of motion DVT prophylaxis: Lovenox DVT prophylaxis: Lovenox Discharge Planning: Pending SNF placement. Case management following- (1) Respiratory failure with hypoxia and hypercapnia Qualifiers: Chronicity: chronic Qualified Code(s): J96.11 - Chronic respiratory failure with hypoxia; J96.12 - Chronic respiratory failure with hypercapnia (1) Respiratory failure with hypoxia and hypercapnia Qualifiers: Chronicity: chronic Qualified Code(s): J96.11 - Chronic respiratory failure with hypoxia; J96.12 - Chronic respiratory failure with hypercapnia
[2018-05-04] MEDS: Enoxaparin Inj 40 MG/0.4 ML Syringe SQ SCH (18:40)
--- NOTE | 2018-05-04 18:55 | P.PNPL ---
Subjective Interval history: 57 YO Obese male with TANA Works with PT Breathing about the same On 4LNC Physical Exam Vital signs: Vital Signs 05/03/18 19:55 05/03/18 19:57 05/03/18 20:00 Temperature 98.0 F Pulse Rate 61 61 Respiratory Rate 16 20 Blood Pressure 112/59 L Pulse Oximetry 97 97 05/04/18 00:00 05/04/18 04:00 05/04/18 07:43 Temperature 97.5 F L 98.0 F Pulse Rate 60 61 62 Respiratory Rate 18 18 22 Blood Pressure 116/62 125/63 Pulse Oximetry 99 97 98 05/04/18 08:00 05/04/18 12:00 05/04/18 13:15 Temperature 98.4 F 98.2 F Pulse Rate 65 62 62 Respiratory Rate 21 18 20 Blood Pressure 119/56 L 121/64 Pulse Oximetry 98 05/04/18 16:00 Temperature 98.2 F Pulse Rate 57 L Respiratory Rate 17 Blood Pressure 107/57 L Pulse Oximetry 99 Intake & Output 05/03/18 05/04/18 05/04/18 18:59 06:59 18:59 Intake Total 960 / 960 240 / 240 Balance 960 / 960 240 / 240 Weight 140.1 kg Intake: Oral 960 / 960 240 / 240 Other: # Incontinent Voids 4 4 Date of Last Bowel Movement 05/01/18 # Bowel Movements 0 GENERAL: Obese WM,NAD SKIN: Warm and dry. HEAD: Normocephalic. EYES: No scleral icterus. No injection or drainage. NECK: Supple, trachea midline. No JVD or lymphadenopathy. CARDIOVASCULAR: Regular rate and rhythm without murmurs, gallops, or rubs. RESPIRATORY: Breath sounds equal bilaterally. No accessory muscle use. GASTROINTESTINAL: Abdomen soft, non-tender, nondistended. MUSCULOSKELETAL: No cyanosis, or edema. BACK: Nontender without obvious deformity. No CVA tenderness. Assessment and Plan - Plan IMPRESSION: TANA COPD CHF Morbid obesity Gen Weakness/ deconditioning PLAN: Supplement 02, 4LNC Keep sat 88-92% Diurease Aerosol nebs Stable from Pulm standpoint Available prn over weekend.
[2018-05-04] MEDS: traZODone 50 MG Tablet PO SCH (21:38)
[2018-05-04] MEDS: Zolpidem Tartrate 5 MG Tablet PO PRN (21:40)
[2018-05-05] MEDS: Nystatin 100,000 UNITS/GM Powder 15 GM Bottle TOPICAL SCH ×3 (05:12→21:31)
[2018-05-05] MEDS: Psyllium Husk SF 3.4 GM in 5.8 GM Packet PO SCH ×2 (08:50→21:27)
[2018-05-05] MEDS: Famotidine 20 MG Tablet PO SCH ×2 (08:52→21:25)
[2018-05-05] MEDS: Gabapentin 100 MG Capsule PO SCH ×3 (08:52→18:38)
[2018-05-05] MEDS: Allopurinol 100 MG Tablet PO SCH (08:52)
[2018-05-05] MEDS: LORazepam 1 MG Tablet PO PRN ×2 (08:52→15:47)
[2018-05-05] MEDS: Furosemide 40 MG Tablet PO SCH ×2 (08:53→21:25)
[2018-05-05] MEDS: guaiFENesin 600 MG ER Tablet PO SCH ×2 (08:53→21:25)
[2018-05-05] MEDS: Carvedilol 12.5 MG Tablet PO SCH ×2 (08:53→21:25)
[2018-05-05] MEDS: Amiodarone 200 MG Tablet PO SCH ×2 (08:53→21:25)
[2018-05-05] MEDS: Senna/Docusate Sodium 8.6/50 MG Tablet PO SCH ×2 (08:53→21:25)
[2018-05-05] MEDS: Ferrous Sulfate Drops 15 MG/ML 50 ML Bottle PO SCH (08:54)
[2018-05-05] MEDS: Methylnaltrexone Inj 12 MG/0.6 ML Vial SQ SCH (08:54)
[2018-05-05] MEDS: Insulin Detemir Inj 1,000 UNIT/10 ML Vial SQ SCH ×2 (08:56→23:10)
[2018-05-05] MEDS: Calamine/Pramoxine Lotion 180 ML Bottle TOPICAL SCH ×2 (09:01→21:29)
[2018-05-05] MEDS: Lactic Acid (Ammonium Lactate) 12% Lotion 225 GM Bottle TOPICAL SCH ×2 (09:01→21:30)
[2018-05-05] MEDS: Sodium Chloride 0.65% Nasal Drops/Spray 30 ML Bottle EACH NARE SCH ×2 (09:01→21:30)
[2018-05-05] MEDS: Insulin NovoLOG Aspart Correctional Sugar Inj SQ SCH ×4 (09:03→21:27)
--- NOTE | 2018-05-05 11:27 | P.PN ---
Subjective Interval history: awake and alert no complains taking po well Physical Exam Vital signs: Vital Signs 05/04/18 12:00 05/04/18 13:15 05/04/18 16:00 Temperature 98.2 F 98.2 F Pulse Rate 62 62 57 L Respiratory Rate 18 20 17 Blood Pressure 121/64 107/57 L Pulse Oximetry 98 99 05/04/18 19:40 05/04/18 20:00 05/04/18 20:46 Temperature 98.1 F Pulse Rate 63 Respiratory Rate 20 16 Blood Pressure 113/63 Pulse Oximetry 95 97 05/05/18 00:00 05/05/18 04:00 05/05/18 07:43 Temperature 98 F 97.1 F L Pulse Rate 61 65 65 Respiratory Rate 20 18 12 Blood Pressure 123/63 119/58 L Pulse Oximetry 98 99 98 05/05/18 08:00 Temperature 98.2 F Pulse Rate 65 Respiratory Rate 22 Blood Pressure 131/63 Pulse Oximetry 98 Intake & Output 05/04/18 05/05/18 05/05/18 18:59 06:59 18:59 Weight 140.2 kg Other: # Voids 5 Narrative: awake and alert , Not in distress. speech clear Regular rate and rhythm. Clear to auscultation. Breath sounds equal bilaterally. Abdomen soft, non-tender,. Normoactive bowel sounds x4. Obese. Chronic tr bilateral lower extremity edema. Left knee- non tender no erythema/ edema, no palpable effusion, active ROM intact although flexion limited by body habitus. NEUROLOGICAL: Awake and alert. No obvious cranial nerve deficits. Motor grossly within normal limits. Moving all extremities spontaneously. Normal speech. Results - Labs CBC & Chem 7: 04/26/18 15:30 04/26/18 15:30 Laboratory Results - last 24 hr 05/04/18 05/04/18 05/04/18 12:02 16:39 19:59 POC Glucose 146 H 134 H 142 H 05/05/18 09:03 POC Glucose 109 - Procedures 04/30- EGD with dilatation 05/02- colonoscopy- small rectal ulcer, internal and external hemorrhoids Assessment and Plan - Assessment (1) Respiratory failure with hypoxia and hypercapnia Code(s): J96.91 - Respiratory failure, unspecified with hypoxia; J96.92 - Respiratory failure, unspecified with hypercapnia Status: Acute (2) Acute kidney injury superimposed on CKD Code(s): N17.9 - Acute kidney failure, unspecified; N18.9 - Chronic kidney disease, unspecified Status: Acute (3) Acute metabolic encephalopathy Code(s): G93.41 - Metabolic encephalopathy Status: Resolved (4) Altered mental status Code(s): R41.82 - Altered mental status, unspecified Status: Resolved (5) Obesity Code(s): E66.9 - Obesity, unspecified Status: Chronic - Plan 57 years old male Dysphagia with GERD symptoms S/P EGD with dilatation- 04/30 S/P colonoscopy 05/02- poorp pre- some rectal ulcer/ hemorrhoids - good po regular consistency diet -monitor - bowel regimen Acute on chronic hypercapnic respiratory insufficiency, on home oxygen. PMH COPD , Obstructive sleep apnea. Does not tolerate CPAP mask due to the noise. Status post treatment of MRSA pneumonia -Pulmonology following, CPAP as needed, DuoNebs -04/23 CXR reviewed: Basilar airspace disease predominantly on the left side, likely atelectasis, continue IS. CHF, not in exacerbation, CAD s/p CABG. echo from September showed EF 55-60% -On ASA, Amiodarone 200mg BID, Coreg 12.5mg BID, Clonidine 0.1mg Q8, Plavix 75mg daily, Lasix 40 mg twice daily Hypertension -Continue carvedilol 12.5 mg po bid , clonidine- decrease clondiine to 0.1 mg po bid Diabetes Mellitus, type 2- good readings -Supplemental sliding scale -Levemir 10 units twice daily on ADA/cardiac diet - requesting for PB + jelly Scrotal pain- improved Per Dr. Woodruff likely from anasarca. Ultrasound noted. Hypotestosteronism -02/23 total testosterone was 13, free 0.14; s/p 100mg injection. Repeat total testosterone 451/free testosterone 14.4 03/27 Left upper and lower extremity weakness- improved -Head CT on 02/25 shows no acute changes. CT of the neck shows C6-[address] of lumbar spine shows L3-4 herniation with L3 nerve root impingement -Per NS, the disc herniation is nonsurgical. S/P course steroids Morbid obesity/debility: -PT daily to mobilize the patient more. -Slowly improving Insomnia -Continue Trazodone 100mg HS, PRN Zolpidem, HS Melatonin Constipation, chronic -laxatives/ enema as needed. Iron deficiency anemia-on iron sulfate. Left Knee Pain: possible strain, left knee x-ray unremarkable. Continue pain control. better range of motion DVT prophylaxis: Lovenox DVT prophylaxis: Lovenox Discharge Planning: Pending SNF placement. Case management following- (1) Respiratory failure with hypoxia and hypercapnia Qualifiers: Chronicity: chronic Qualified Code(s): J96.11 - Chronic respiratory failure with hypoxia; J96.12 - Chronic respiratory failure with hypercapnia (1) Respiratory failure with hypoxia and hypercapnia Qualifiers: Chronicity: chronic Qualified Code(s): J96.11 - Chronic respiratory failure with hypoxia; J96.12 - Chronic respiratory failure with hypercapnia
[2018-05-05] MEDS: Enoxaparin Inj 40 MG/0.4 ML Syringe SQ SCH (18:38)
[2018-05-05] MEDS: traZODone 50 MG Tablet PO SCH (21:25)
[2018-05-06] MEDS: LORazepam 1 MG Tablet PO PRN ×3 (03:18→16:31)
[2018-05-06] MEDS: Nystatin 100,000 UNITS/GM Powder 15 GM Bottle TOPICAL SCH ×3 (07:00→22:11)
[2018-05-06] MEDS: Insulin NovoLOG Aspart Correctional Sugar Inj SQ SCH ×4 (09:36→22:15)
[2018-05-06] MEDS: Famotidine 20 MG Tablet PO SCH ×2 (09:37→22:05)
[2018-05-06] MEDS: Methylnaltrexone Inj 12 MG/0.6 ML Vial SQ SCH (09:37)
[2018-05-06] MEDS: Gabapentin 100 MG Capsule PO SCH ×3 (09:37→17:56)
[2018-05-06] MEDS: Ferrous Sulfate Drops 15 MG/ML 50 ML Bottle PO SCH (09:37)
[2018-05-06] MEDS: Senna/Docusate Sodium 8.6/50 MG Tablet PO SCH ×2 (09:38→22:05)
[2018-05-06] MEDS: Furosemide 40 MG Tablet PO SCH ×2 (09:38→22:05)
[2018-05-06] MEDS: Allopurinol 100 MG Tablet PO SCH (09:38)
[2018-05-06] MEDS: Amiodarone 200 MG Tablet PO SCH ×2 (09:38→22:05)
[2018-05-06] MEDS: guaiFENesin 600 MG ER Tablet PO SCH ×2 (09:38→22:04)
[2018-05-06] MEDS: Insulin Detemir Inj 1,000 UNIT/10 ML Vial SQ SCH ×2 (09:38→22:14)
[2018-05-06] MEDS: Carvedilol 12.5 MG Tablet PO SCH ×2 (09:38→22:05)
[2018-05-06] MEDS: Sodium Chloride 0.65% Nasal Drops/Spray 30 ML Bottle EACH NARE SCH ×2 (09:44→22:12)
[2018-05-06] MEDS: Calamine/Pramoxine Lotion 180 ML Bottle TOPICAL SCH ×2 (09:44→22:10)
[2018-05-06] MEDS: Lactic Acid (Ammonium Lactate) 12% Lotion 225 GM Bottle TOPICAL SCH ×2 (09:44→22:09)
[2018-05-06] MEDS: Psyllium Husk SF 3.4 GM in 5.8 GM Packet PO SCH ×2 (09:44→22:08)
--- NOTE | 2018-05-06 11:10 | P.PNIM ---
Subjective Interval history: in no acute distress. says that it seems his ' swallowing is getting worse again'. otherwise no other new complaints. Physical Exam Vital signs: Vital Signs 05/05/18 12:00 05/05/18 16:00 05/05/18 16:31 Temperature 98 F 97.9 F Pulse Rate 56 L 62 55 L Respiratory Rate 20 20 12 Blood Pressure 110/56 L 104/51 L Pulse Oximetry 98 98 05/05/18 20:00 05/05/18 20:23 05/06/18 00:00 Temperature 97.5 F L 97.5 F L Pulse Rate 68 61 68 Respiratory Rate 18 16 18 Blood Pressure 106/57 L 106/56 L Pulse Oximetry 98 96 98 05/06/18 04:00 05/06/18 08:00 05/06/18 08:53 Temperature 97.5 F L 97.8 F Pulse Rate 68 63 68 Respiratory Rate 16 20 12 Blood Pressure 106/59 L 128/62 Pulse Oximetry 97 100 97 Intake & Output 05/05/18 05/06/18 05/06/18 18:59 06:59 18:59 Intake Total 560 / 560 1200 / 1200 Balance 560 / 560 1200 / 1200 Weight 138.5 kg Intake: Oral 560 / 560 1200 / 1200 Other: # Voids 4 6 Date of Last Bowel Movement 05/01/18 - Routine Respiratory Exam Present: CTA bilaterally - Routine Cardiovascular Exam Present: RRR - Routine Abdominal Exam Present: soft Results - Labs CBC & Chem 7: 04/26/18 15:30 04/26/18 15:30 Laboratory Results - last 24 hr 05/05/18 05/05/18 05/05/18 11:47 18:41 20:07 POC Glucose 170 H 133 H 127 H 05/06/18 09:36 POC Glucose 210 H - Procedures 04/30- EGD with dilatation 05/02- colonoscopy- small rectal ulcer, internal and external hemorrhoids Assessment and Plan - Assessment (1) Respiratory failure with hypoxia and hypercapnia Code(s): J96.91 - Respiratory failure, unspecified with hypoxia; J96.92 - Respiratory failure, unspecified with hypercapnia Status: Acute (2) Acute kidney injury superimposed on CKD Code(s): N17.9 - Acute kidney failure, unspecified; N18.9 - Chronic kidney disease, unspecified Status: Acute (3) Acute metabolic encephalopathy Code(s): G93.41 - Metabolic encephalopathy Status: Resolved (4) Altered mental status Code(s): R41.82 - Altered mental status, unspecified Status: Resolved (5) Obesity Code(s): E66.9 - Obesity, unspecified Status: Chronic - Plan Dysphagia with GERD symptoms S/P EGD with dilatation- 04/30 S/P colonoscopy 05/02- poorp pre- some rectal ulcer/ hemorrhoids - good po regular consistency diet -monitor- will consider GI reevaluation if dysphagia continues to get worse. - bowel regimen Acute on chronic hypercapnic respiratory insufficiency, on home oxygen. PMH COPD , Obstructive sleep apnea. Does not tolerate CPAP mask due to the noise. Status post treatment of MRSA pneumonia -Pulmonology following, CPAP as needed, [place] -04/23 CXR reviewed: Basilar airspace disease predominantly on the left side, likely atelectasis, continue IS. CHF, not in exacerbation, CAD s/p CABG. echo from September showed EF 55-60% -On ASA, Amiodarone 200mg BID, Coreg 12.5mg BID, Clonidine 0.1mg Q8, Plavix 75mg daily, Lasix 40 mg twice daily Hypertension -Continue carvedilol 12.5 mg po bid , clonidine- decrease clondiine to 0.1 mg po bid Diabetes Mellitus, type 2- good readings -Supplemental sliding scale -Levemir 10 units twice daily on ADA/cardiac diet - requesting for PB + jelly Scrotal pain- improved Per Dr. Woodruff likely from anasarca. Ultrasound noted. Hypotestosteronism -02/23 total testosterone was 13, free 0.14; s/p 100mg injection. Repeat total testosterone 451/free testosterone 14.4 03/27 Left upper and lower extremity weakness- improved -Head CT on 02/25 shows no acute changes. CT of the neck shows C6-[address] of lumbar spine shows L3-4 herniation with L3 nerve root impingement -Per NS, the disc herniation is nonsurgical. S/P course steroids Morbid obesity/debility: -PT daily to mobilize the patient more. -Slowly improving Insomnia -Continue Trazodone 100mg HS, PRN Zolpidem, HS Melatonin Constipation, chronic -laxatives/ enema as needed. Iron deficiency anemia-on iron sulfate. Left Knee Pain: possible strain, left knee x-ray unremarkable. Continue pain control. better range of motion DVT prophylaxis: Lovenox DVT prophylaxis: Lovenox Discharge Planning: awaiting placement. (1) Respiratory failure with hypoxia and hypercapnia Qualifiers: Chronicity: chronic Qualified Code(s): J96.11 - Chronic respiratory failure with hypoxia; J96.12 - Chronic respiratory failure with hypercapnia
[2018-05-06] MEDS: Enoxaparin Inj 40 MG/0.4 ML Syringe SQ SCH (17:56)
[2018-05-06] MEDS: Melatonin 5 MG Tablet PO PRN (22:04)
[2018-05-06] MEDS: traZODone 50 MG Tablet PO SCH (22:07)
[2018-05-06] MEDS: Zolpidem Tartrate 5 MG Tablet PO PRN (22:08)
[2018-05-07] MEDS: LORazepam 1 MG Tablet PO PRN ×2 (04:19→10:18)
[2018-05-07] MEDS: Nystatin 100,000 UNITS/GM Powder 15 GM Bottle TOPICAL SCH ×4 (04:20→21:07)
[2018-05-07] MEDS: Insulin NovoLOG Aspart Correctional Sugar Inj SQ SCH ×4 (08:54→21:06)
[2018-05-07] MEDS: Sodium Chloride 0.65% Nasal Drops/Spray 30 ML Bottle EACH NARE SCH ×2 (08:56→21:03)
[2018-05-07] MEDS: Psyllium Husk SF 3.4 GM in 5.8 GM Packet PO SCH ×2 (08:56→21:05)
[2018-05-07] MEDS: Gabapentin 100 MG Capsule PO SCH ×3 (08:57→18:19)
[2018-05-07] MEDS: Famotidine 20 MG Tablet PO SCH ×2 (08:57→21:06)
[2018-05-07] MEDS: Allopurinol 100 MG Tablet PO SCH (08:57)
[2018-05-07] MEDS: Senna/Docusate Sodium 8.6/50 MG Tablet PO SCH ×2 (08:57→21:07)
[2018-05-07] MEDS: Furosemide 40 MG Tablet PO SCH ×2 (08:58→21:05)
[2018-05-07] MEDS: Amiodarone 200 MG Tablet PO SCH ×2 (08:58→21:04)
[2018-05-07] MEDS: Carvedilol 12.5 MG Tablet PO SCH ×2 (08:58→21:04)
[2018-05-07] MEDS: guaiFENesin 600 MG ER Tablet PO SCH ×2 (08:58→21:05)
[2018-05-07] MEDS: Lactic Acid (Ammonium Lactate) 12% Lotion 225 GM Bottle TOPICAL SCH ×2 (08:59→21:05)
[2018-05-07] MEDS: Ferrous Sulfate Drops 15 MG/ML 50 ML Bottle PO SCH (08:59)
[2018-05-07] MEDS: Calamine/Pramoxine Lotion 180 ML Bottle TOPICAL SCH ×2 (08:59→21:03)
[2018-05-07] MEDS: Insulin Detemir Inj 1,000 UNIT/10 ML Vial SQ SCH ×3 (10:19→21:11)
--- NOTE | 2018-05-07 11:46 | P.PNIM ---
Subjective Interval history: in no acute distress. dysphagia is better today. Physical Exam Vital signs: Vital Signs 05/06/18 12:00 05/06/18 16:00 05/06/18 20:00 Temperature 98.3 F 98.6 F 97.6 F Pulse Rate 70 61 58 L Respiratory Rate 20 20 20 Blood Pressure 118/64 103/61 111/59 L Pulse Oximetry 100 100 99 05/06/18 20:38 05/07/18 00:00 05/07/18 04:00 Temperature 98.0 F 97.4 F L Pulse Rate 61 56 L 64 Respiratory Rate 18 20 20 Blood Pressure 107/57 L 126/60 Pulse Oximetry 99 98 95 05/07/18 04:45 05/07/18 08:00 05/07/18 08:08 Temperature 98.1 F Pulse Rate 60 61 60 Respiratory Rate 18 20 20 Blood Pressure 131/63 Pulse Oximetry 97 95 Intake & Output 05/06/18 05/07/18 05/07/18 18:59 06:59 18:59 Intake Total 720 / 720 240 / 240 Balance 720 / 720 240 / 240 Weight 138.5 kg Intake: Oral 720 / 720 240 / 240 Other: # Voids 3 # Incontinent Voids 4 Date of Last Bowel Movement 05/06/18 05/06/18 # Bowel Movements 2 - Constitutional no acute distress - Routine Respiratory Exam Present: CTA bilaterally - Routine Cardiovascular Exam Present: RRR - Routine Abdominal Exam Present: soft Results - Labs CBC & Chem 7: 04/26/18 15:30 04/26/18 15:30 Laboratory Results - last 24 hr 05/06/18 05/06/18 05/06/18 12:46 16:40 20:14 POC Glucose 128 H 174 H 114 H 05/07/18 08:40 POC Glucose 103 - Procedures 04/30- EGD with dilatation 05/02- colonoscopy- small rectal ulcer, internal and external hemorrhoids Assessment and Plan - Assessment (1) Respiratory failure with hypoxia and hypercapnia Code(s): J96.91 - Respiratory failure, unspecified with hypoxia; J96.92 - Respiratory failure, unspecified with hypercapnia Status: Acute (2) Acute kidney injury superimposed on CKD Code(s): N17.9 - Acute kidney failure, unspecified; N18.9 - Chronic kidney disease, unspecified Status: Acute (3) Acute metabolic encephalopathy Code(s): G93.41 - Metabolic encephalopathy Status: Resolved (4) Altered mental status Code(s): R41.82 - Altered mental status, unspecified Status: Resolved (5) Obesity Code(s): E66.9 - Obesity, unspecified Status: Chronic - Plan Dysphagia with GERD symptoms S/P EGD with dilatation- 04/30 S/P colonoscopy 05/02- poorp pre- some rectal ulcer/ hemorrhoids - good po regular consistency diet Acute on chronic hypercapnic respiratory insufficiency, on home oxygen. PMH COPD , Obstructive sleep apnea. Does not tolerate CPAP mask due to the noise. Status post treatment of MRSA pneumonia -Pulmonology following, CPAP as needed, DuoNebs CHF, not in exacerbation, CAD s/p CABG. echo from September showed EF 55-60% -On ASA, Amiodarone 200mg BID, Coreg 12.5mg BID, Clonidine 0.1mg Q8, Plavix 75mg daily, Lasix 40 mg twice daily Hypertension -Continue carvedilol 12.5 mg po bid , clonidine- decrease clondiine to 0.1 mg po bid Diabetes Mellitus, type 2- good readings -Supplemental sliding scale -Levemir 10 units twice daily on ADA/cardiac diet - requesting for PB + jelly Scrotal pain- improved Per Dr. Woodruff likely from anasarca. Ultrasound noted. Hypotestosteronism -02/23 total testosterone was 13, free 0.14; s/p 100mg injection. Repeat total testosterone 451/free testosterone 14.4 03/27 Left upper and lower extremity weakness- improved -Head CT on 02/25 shows no acute changes. CT of the neck shows C6-[address] of lumbar spine shows L3-4 herniation with L3 nerve root impingement -Per NS, the disc herniation is nonsurgical. S/P course steroids Morbid obesity/debility: -PT daily to mobilize the patient more. -Slowly improving Insomnia -Continue Trazodone 100mg HS, PRN Zolpidem, HS Melatonin Constipation, chronic -laxatives/ enema as needed. Iron deficiency anemia-on iron sulfate. Left Knee Pain: possible strain, left knee x-ray unremarkable. Continue pain control. better range of motion DVT prophylaxis: Lovenox DVT prophylaxis: Lovenox Discharge Planning: awaiting placement. (1) Respiratory failure with hypoxia and hypercapnia Qualifiers: Chronicity: chronic Qualified Code(s): J96.11 - Chronic respiratory failure with hypoxia; J96.12 - Chronic respiratory failure with hypercapnia
[2018-05-07] MEDS: Methylnaltrexone Inj 12 MG/0.6 ML Vial SQ SCH (15:39)
[2018-05-07] MEDS: Enoxaparin Inj 40 MG/0.4 ML Syringe SQ SCH (18:19)
--- NOTE | 2018-05-07 20:12 | P.PNPL ---
Subjective Interval history: 57 YO Obese male with TANA Works with PT Breathing about the same On 4LNC No new complaint Physical Exam Vital signs: Vital Signs 05/06/18 20:38 05/07/18 00:00 05/07/18 04:00 Temperature 98.0 F 97.4 F L Pulse Rate 61 56 L 64 Respiratory Rate 18 20 20 Blood Pressure 107/57 L 126/60 Pulse Oximetry 99 98 95 05/07/18 04:45 05/07/18 08:00 05/07/18 08:08 Temperature 98.1 F Pulse Rate 60 61 60 Respiratory Rate 18 20 20 Blood Pressure 131/63 Pulse Oximetry 97 95 05/07/18 12:00 05/07/18 16:00 05/07/18 19:04 Temperature 98 F 98.2 F Pulse Rate 65 61 61 Respiratory Rate 20 20 20 Blood Pressure 126/57 L 109/60 Pulse Oximetry 97 100 Intake & Output 05/07/18 05/07/18 05/08/18 06:59 18:59 06:59 Intake Total 240 / 240 1200 / 1200 Balance 240 / 240 1200 / 1200 Weight 138.5 kg Intake: Oral 240 / 240 1200 / 1200 Other: # Voids 3 1 Date of Last Bowel Movement 05/06/18 05/06/18 GENERAL: Obese WM,NAD SKIN: Warm and dry. HEAD: Normocephalic. EYES: No scleral icterus. No injection or drainage. NECK: Supple, trachea midline. No JVD or lymphadenopathy. CARDIOVASCULAR: Regular rate and rhythm without murmurs, gallops, or rubs. RESPIRATORY: Breath sounds equal bilaterally. No accessory muscle use. GASTROINTESTINAL: Abdomen soft, non-tender, nondistended. MUSCULOSKELETAL: No cyanosis, or edema. BACK: Nontender without obvious deformity. No CVA tenderness. Assessment and Plan - Plan IMPRESSION: TANA COPD CHF Morbid obesity Gen Weakness/ deconditioning PLAN: Supplement , 4LNC Keep sat 88-92% Diurease Aerosol nebs Stable from Pulm standpoint
[2018-05-07] MEDS: traZODone 50 MG Tablet PO SCH (21:04)
[2018-05-07] MEDS: Zolpidem Tartrate 5 MG Tablet PO PRN (21:07)
[2018-05-08] MEDS: Nystatin 100,000 UNITS/GM Powder 15 GM Bottle TOPICAL SCH ×3 (05:44→21:07)
[2018-05-08] MEDS: LORazepam 1 MG Tablet PO PRN ×3 (05:55→21:05)
[2018-05-08] MEDS: Furosemide 40 MG Tablet PO SCH ×2 (09:33→21:05)
[2018-05-08] MEDS: Allopurinol 100 MG Tablet PO SCH (09:33)
[2018-05-08] MEDS: Amiodarone 200 MG Tablet PO SCH ×2 (09:33→21:05)
[2018-05-08] MEDS: Gabapentin 100 MG Capsule PO SCH ×3 (09:33→17:29)
[2018-05-08] MEDS: Senna/Docusate Sodium 8.6/50 MG Tablet PO SCH ×2 (09:33→21:05)
[2018-05-08] MEDS: Famotidine 20 MG Tablet PO SCH ×2 (09:33→21:05)
[2018-05-08] MEDS: Carvedilol 12.5 MG Tablet PO SCH ×2 (09:33→21:05)
[2018-05-08] MEDS: guaiFENesin 600 MG ER Tablet PO SCH ×2 (09:33→21:05)
[2018-05-08] MEDS: Insulin Detemir Inj 1,000 UNIT/10 ML Vial SQ SCH ×2 (09:34→21:05)
[2018-05-08] MEDS: Ferrous Sulfate Drops 15 MG/ML 50 ML Bottle PO SCH (09:34)
[2018-05-08] MEDS: Insulin NovoLOG Aspart Correctional Sugar Inj SQ SCH ×4 (09:34→21:06)
[2018-05-08] MEDS: Psyllium Husk SF 3.4 GM in 5.8 GM Packet PO SCH ×2 (09:35→21:06)
[2018-05-08] MEDS: Sodium Chloride 0.65% Nasal Drops/Spray 30 ML Bottle EACH NARE SCH ×2 (09:42→21:04)
[2018-05-08] MEDS: Calamine/Pramoxine Lotion 180 ML Bottle TOPICAL SCH ×2 (09:43→21:04)
[2018-05-08] MEDS: Lactic Acid (Ammonium Lactate) 12% Lotion 225 GM Bottle TOPICAL SCH ×2 (09:43→21:06)
[2018-05-08] MEDS: Methylnaltrexone Inj 12 MG/0.6 ML Vial SQ SCH (10:19)
--- NOTE | 2018-05-08 11:42 | P.PNIM ---
Subjective Interval history: in no acute distress. clinically the same. Physical Exam Vital signs: Vital Signs 05/07/18 12:00 05/07/18 16:00 05/07/18 19:04 Temperature 98 F 98.2 F Pulse Rate 65 61 61 Respiratory Rate 20 20 20 Blood Pressure 126/57 L 109/60 Pulse Oximetry 97 100 05/07/18 20:00 05/07/18 20:40 05/08/18 00:00 Temperature 98.2 F 97.3 F L Pulse Rate 60 66 Respiratory Rate 16 18 Blood Pressure 104/55 L 125/61 Pulse Oximetry 97 97 98 05/08/18 04:00 05/08/18 07:33 05/08/18 08:00 Temperature 97.8 F 97.8 F Pulse Rate 72 83 72 Respiratory Rate 18 16 20 Blood Pressure 126/61 147/65 H Pulse Oximetry 98 94 L 99 05/08/18 10:50 Temperature Pulse Rate 73 Respiratory Rate 16 Blood Pressure Pulse Oximetry Intake & Output 05/07/18 05/08/18 05/08/18 18:59 06:59 18:59 Intake Total 1200 / 1200 Output Total 2 / 2 Balance 1200 / 1200 -2 / -2 Weight 138.5 kg Intake: Oral 1200 / 1200 Output: Urine 2 / 2 Other: # Voids 1 Date of Last Bowel Movement 05/06/18 05/06/18 - Constitutional no acute distress - Routine Respiratory Exam Present: CTA bilaterally - Routine Cardiovascular Exam Present: RRR - Routine Abdominal Exam Present: soft Results - Labs CBC & Chem 7: 04/26/18 15:30 04/26/18 15:30 Laboratory Results - last 24 hr 05/07/18 05/07/18 05/07/18 12:40 17:00 18:01 POC Glucose 222 H 89 100 05/07/18 05/08/18 19:39 09:33 POC Glucose 122 H 136 H - Procedures 04/30- EGD with dilatation 05/02- colonoscopy- small rectal ulcer, internal and external hemorrhoids Assessment and Plan - Assessment (1) Respiratory failure with hypoxia and hypercapnia Code(s): J96.91 - Respiratory failure, unspecified with hypoxia; J96.92 - Respiratory failure, unspecified with hypercapnia Status: Acute (2) Acute kidney injury superimposed on CKD Code(s): N17.9 - Acute kidney failure, unspecified; N18.9 - Chronic kidney disease, unspecified Status: Acute (3) Acute metabolic encephalopathy Code(s): G93.41 - Metabolic encephalopathy Status: Resolved (4) Altered mental status Code(s): R41.82 - Altered mental status, unspecified Status: Resolved (5) Obesity Code(s): E66.9 - Obesity, unspecified Status: Chronic - Plan Dysphagia with GERD symptoms S/P EGD with dilatation- 04/30 S/P colonoscopy 05/02- poorp pre- some rectal ulcer/ hemorrhoids - regular consistency diet Acute on chronic hypercapnic respiratory insufficiency, on home oxygen. PMH COPD , Obstructive sleep apnea. Does not tolerate CPAP mask due to the noise. Status post treatment of MRSA pneumonia -Pulmonology following, CPAP as needed, DuoNebs CHF, not in exacerbation, CAD s/p CABG. echo from September showed EF 55-60% -On ASA, Amiodarone 200mg BID, Coreg 12.5mg BID, Clonidine 0.1mg Q8, Plavix 75mg daily, Lasix 40 mg twice daily Hypertension -Continue carvedilol 12.5 mg po bid , clonidine- decrease clondiine to 0.1 mg po bid Diabetes Mellitus, type 2- good readings -Supplemental sliding scale -Levemir 10 units twice daily on ADA/cardiac diet - requesting for PB + jelly Scrotal pain- improved Per Dr. Woodruff likely from anasarca. Ultrasound noted. Hypotestosteronism -02/23 total testosterone was 13, free 0.14; s/p 100mg injection. Repeat total testosterone 451/free testosterone 14.4 03/27 Left upper and lower extremity weakness- improved -Head CT on 02/25 shows no acute changes. CT of the neck shows C6-[address] of lumbar spine shows L3-4 herniation with L3 nerve root impingement -Per NS, the disc herniation is nonsurgical. S/P course steroids Morbid obesity/debility: -PT daily to mobilize the patient more. -Slowly improving Insomnia -Continue Trazodone 100mg HS, PRN Zolpidem, HS Melatonin Constipation, chronic -laxatives/ enema as needed. Iron deficiency anemia-on iron sulfate. Left Knee Pain: possible strain, left knee x-ray unremarkable. Continue pain control. better range of motion DVT prophylaxis: Lovenox DVT prophylaxis: Lovenox Discharge Planning: awaiting placement. (1) Respiratory failure with hypoxia and hypercapnia Qualifiers: Chronicity: chronic Qualified Code(s): J96.11 - Chronic respiratory failure with hypoxia; J96.12 - Chronic respiratory failure with hypercapnia
[2018-05-08] MEDS: Enoxaparin Inj 40 MG/0.4 ML Syringe SQ SCH (17:30)
--- NOTE | 2018-05-08 19:28 | P.PNPL ---
Subjective Interval history: 57 YO Obese male with TANA Works with PT Breathing about the same On 4LNC No new complaint Still feels weak," not getting enough PT" Physical Exam Vital signs: Vital Signs 05/07/18 20:00 05/07/18 20:40 05/08/18 00:00 Temperature 98.2 F 97.3 F L Pulse Rate 60 66 Respiratory Rate 16 18 Blood Pressure 104/55 L 125/61 Pulse Oximetry 97 97 98 05/08/18 04:00 05/08/18 07:33 05/08/18 08:00 Temperature 97.8 F 97.8 F Pulse Rate 72 83 72 Respiratory Rate 18 16 20 Blood Pressure 126/61 147/65 H Pulse Oximetry 98 94 L 99 05/08/18 10:50 05/08/18 12:00 05/08/18 16:00 Temperature 98 F 98 F Pulse Rate 73 79 79 Respiratory Rate 16 20 20 Blood Pressure 147/75 H 147/75 H Pulse Oximetry 96 96 05/08/18 19:05 05/08/18 19:06 Temperature Pulse Rate 79 Respiratory Rate 20 Blood Pressure Pulse Oximetry 96 Intake & Output 05/08/18 05/08/18 05/09/18 06:59 18:59 06:59 Intake Total Output Total Balance -7 / -7 Weight 138.5 kg Intake: Other Output: Urine 6 / 6 Stool 2 / 2 Other: Date of Last Bowel Movement 05/06/18 05/08/18 GENERAL: Obese WM, NAD, sitting on the side of bed SKIN: Warm and dry. HEAD: Normocephalic. EYES: No scleral icterus. No injection or drainage. NECK: Supple, trachea midline. No JVD or lymphadenopathy. CARDIOVASCULAR: Regular rate and rhythm without murmurs, gallops, or rubs. RESPIRATORY: Breath sounds equal bilaterally. No accessory muscle use. GASTROINTESTINAL: Abdomen soft, non-tender, nondistended. MUSCULOSKELETAL: No cyanosis, or edema. BACK: Nontender without obvious deformity. No CVA tenderness. Assessment and Plan - Plan IMPRESSION: TANA COPD CHF Morbid obesity Gen Weakness/ deconditioning PLAN: Supplement 02, 4LNC Keep sat 88-92% Diurease Aerosol nebs Stable from Pulm standpoint DW Pt and his brother
[2018-05-08] MEDS: traZODone 50 MG Tablet PO SCH (21:05)
[2018-05-08] MEDS: Zolpidem Tartrate 5 MG Tablet PO PRN (21:05)
[2018-05-09] MEDS: Nystatin 100,000 UNITS/GM Powder 15 GM Bottle TOPICAL SCH ×3 (05:18→22:02)
[2018-05-09] MEDS: LORazepam 1 MG Tablet PO PRN ×3 (08:15→20:56)
[2018-05-09] MEDS: Gabapentin 100 MG Capsule PO SCH ×3 (11:39→17:29)
[2018-05-09] MEDS: Furosemide 40 MG Tablet PO SCH ×2 (11:39→20:57)
[2018-05-09] MEDS: Senna/Docusate Sodium 8.6/50 MG Tablet PO SCH ×2 (11:39→20:54)
[2018-05-09] MEDS: Methylnaltrexone Inj 12 MG/0.6 ML Vial SQ SCH (11:39)
[2018-05-09] MEDS: Insulin NovoLOG Aspart Correctional Sugar Inj SQ SCH ×4 (11:39→20:57)
[2018-05-09] MEDS: guaiFENesin 600 MG ER Tablet PO SCH ×2 (11:40→20:56)
[2018-05-09] MEDS: Allopurinol 100 MG Tablet PO SCH (11:40)
[2018-05-09] MEDS: Amiodarone 200 MG Tablet PO SCH ×2 (11:40→20:56)
[2018-05-09] MEDS: Sodium Chloride 0.65% Nasal Drops/Spray 30 ML Bottle EACH NARE SCH ×2 (11:41→20:57)
[2018-05-09] MEDS: Lactic Acid (Ammonium Lactate) 12% Lotion 225 GM Bottle TOPICAL SCH ×2 (11:41→20:57)
[2018-05-09] MEDS: Carvedilol 12.5 MG Tablet PO SCH ×2 (11:41→20:54)
[2018-05-09] MEDS: Calamine/Pramoxine Lotion 180 ML Bottle TOPICAL SCH ×2 (11:41→20:57)
[2018-05-09] MEDS: Ferrous Sulfate Drops 15 MG/ML 50 ML Bottle PO SCH (11:41)
[2018-05-09] MEDS: Insulin Detemir Inj 1,000 UNIT/10 ML Vial SQ SCH ×2 (11:41→20:56)
[2018-05-09] MEDS: Psyllium Husk SF 3.4 GM in 5.8 GM Packet PO SCH ×2 (11:42→20:54)
[2018-05-09] MEDS: Famotidine 20 MG Tablet PO SCH ×2 (11:42→20:55)
--- NOTE | 2018-05-09 12:09 | P.PNIM ---
Subjective Interval history: in no acute distress. no new complaints. Physical Exam Vital signs: Vital Signs 05/08/18 16:00 05/08/18 19:05 05/08/18 19:06 Temperature 98 F Pulse Rate 79 79 Respiratory Rate 20 20 Blood Pressure 147/75 H Pulse Oximetry 96 96 05/08/18 20:00 05/08/18 23:48 05/09/18 00:00 Temperature 98.2 F 98.0 F Pulse Rate 68 86 63 Respiratory Rate 21 17 21 Blood Pressure 113/77 114/79 Pulse Oximetry 98 95 100 05/09/18 04:00 05/09/18 07:52 05/09/18 08:00 Temperature 98.0 F 98.4 F Pulse Rate 66 67 66 Respiratory Rate 20 20 18 Blood Pressure 102/68 115/58 L Pulse Oximetry 97 96 97 Intake & Output 05/08/18 05/09/18 05/09/18 18:59 06:59 18:59 Intake Total 480 / 480 Output Total Balance - / -7 480 / 480 Weight 138.9 kg Intake: Oral 480 / 480 Other Output: Urine Stool Other: # Incontinent Voids 3 Date of Last Bowel Movement 05/08/18 05/08/18 - Constitutional no acute distress - Routine Respiratory Exam Present: CTA bilaterally - Routine Cardiovascular Exam Present: RRR - Routine Abdominal Exam Present: soft Results - Labs CBC & Chem 7: 04/26/18 15:30 04/26/18 15:30 Laboratory Results - last 24 hr 05/08/18 05/08/18 05/08/18 12:56 17:31 19:39 POC Glucose 173 H 121 H 131 H 05/09/18 08:18 POC Glucose 114 H - Procedures 04/30- EGD with dilatation 05/02- colonoscopy- small rectal ulcer, internal and external hemorrhoids Assessment and Plan - Assessment (1) Respiratory failure with hypoxia and hypercapnia Code(s): J96.91 - Respiratory failure, unspecified with hypoxia; J96.92 - Respiratory failure, unspecified with hypercapnia Status: Acute (2) Acute kidney injury superimposed on CKD Code(s): N17.9 - Acute kidney failure, unspecified; N18.9 - Chronic kidney disease, unspecified Status: Acute (3) Acute metabolic encephalopathy Code(s): G93.41 - Metabolic encephalopathy Status: Resolved (4) Altered mental status Code(s): R41.82 - Altered mental status, unspecified Status: Resolved (5) Obesity Code(s): E66.9 - Obesity, unspecified Status: Chronic - Plan Dysphagia with GERD symptoms S/P EGD with dilatation- 04/30 S/P colonoscopy 05/02- poorp pre- some rectal ulcer/ hemorrhoids - regular consistency diet Acute on chronic hypercapnic respiratory insufficiency, on home oxygen. PMH COPD , Obstructive sleep apnea. Does not tolerate CPAP mask due to the noise. Status post treatment of MRSA pneumonia -Pulmonology following, CPAP as needed, DuoNebs CHF, not in exacerbation, CAD s/p CABG. echo from September showed EF 55-60% -On ASA, Amiodarone 200mg BID, Coreg 12.5mg BID, Clonidine 0.1mg Q8, Plavix 75mg daily, Lasix 40 mg twice daily Hypertension -Continue carvedilol 12.5 mg po bid , clonidine- decrease clondiine to 0.1 mg po bid Diabetes Mellitus, type 2- good readings -Supplemental sliding scale -Levemir 10 units twice daily on ADA/cardiac diet - requesting for PB + jelly Scrotal pain- improved Per Dr. Woodruff likely from anasarca. Ultrasound noted. Hypotestosteronism -02/23 total testosterone was 13, free 0.14; s/p 100mg injection. Repeat total testosterone 451/free testosterone 14.4 03/27 Left upper and lower extremity weakness- improved -Head CT on 02/25 shows no acute changes. CT of the neck shows C6-[address] of lumbar spine shows L3-4 herniation with L3 nerve root impingement -Per NS, the disc herniation is nonsurgical. S/P course steroids Morbid obesity/debility: -PT daily to mobilize the patient more. -Slowly improving Insomnia -Continue Trazodone 100mg HS, PRN Zolpidem, HS Melatonin Constipation, chronic -laxatives/ enema as needed. Iron deficiency anemia-on iron sulfate. Left Knee Pain: possible strain, left knee x-ray unremarkable. Continue pain control. better range of motion DVT prophylaxis: Lovenox DVT prophylaxis: Lovenox Discharge Planning: awaiting placement. (1) Respiratory failure with hypoxia and hypercapnia Qualifiers: Chronicity: chronic Qualified Code(s): J96.11 - Chronic respiratory failure with hypoxia; J96.12 - Chronic respiratory failure with hypercapnia
[2018-05-09] MEDS: Enoxaparin Inj 40 MG/0.4 ML Syringe SQ SCH (17:29)
--- NOTE | 2018-05-09 20:08 | P.PNPL ---
Subjective Interval history: 57 YO Obese male with TANA Works with PT Breathing about the same On 4LNC No new complaint Physical Exam Vital signs: Vital Signs 05/08/18 23:48 05/09/18 00:00 05/09/18 04:00 Temperature 98.0 F 98.0 F Pulse Rate 86 63 66 Respiratory Rate 17 21 20 Blood Pressure 114/79 102/68 Pulse Oximetry 95 100 97 05/09/18 07:52 05/09/18 08:00 05/09/18 12:00 Temperature 98.4 F 98.4 F Pulse Rate 67 66 66 Respiratory Rate 20 18 18 Blood Pressure 115/58 L 127/70 Pulse Oximetry 96 97 98 05/09/18 16:00 05/09/18 19:31 Temperature 97.4 F L Pulse Rate 59 L 62 Respiratory Rate 18 18 Blood Pressure 113/55 L Pulse Oximetry 98 98 Intake & Output 05/09/18 05/09/18 05/10/18 06:59 18:59 06:59 Intake Total 480 / 480 1096 / 1096 Balance 480 / 480 1096 / 1096 Weight 138.9 kg Intake: Oral 480 / 480 1096 / 1096 Other: # Incontinent Voids 3 3 Date of Last Bowel Movement 05/08/18 # Bowel Movements 1 GENERAL: Obese WM, NAD SKIN: Warm and dry. HEAD: Normocephalic. EYES: No scleral icterus. No injection or drainage. NECK: Supple, trachea midline. No JVD or lymphadenopathy. CARDIOVASCULAR: Regular rate and rhythm without murmurs, gallops, or rubs. RESPIRATORY: Breath sounds equal bilaterally. No accessory muscle use. GASTROINTESTINAL: Abdomen soft, non-tender, nondistended. MUSCULOSKELETAL: No cyanosis, or edema. BACK: Nontender without obvious deformity. No CVA tenderness. Assessment and Plan - Plan IMPRESSION: TANA COPD CHF Morbid obesity Gen Weakness/ deconditioning PLAN: Supplement , 4LNC Keep sat 88-92% Diurease Aerosol nebs Stable from Pulm standpoint
[2018-05-09] MEDS: traZODone 50 MG Tablet PO SCH (20:55)
[2018-05-09] MEDS: Zolpidem Tartrate 5 MG Tablet PO PRN (20:56)
[2018-05-09] MEDS: Melatonin 5 MG Tablet PO PRN (22:01)
[2018-05-10] MEDS: LORazepam 1 MG Tablet PO PRN ×4 (03:25→22:39)
[2018-05-10] MEDS: Nystatin 100,000 UNITS/GM Powder 15 GM Bottle TOPICAL SCH ×3 (05:00→23:22)
[2018-05-10] MEDS: Insulin NovoLOG Aspart Correctional Sugar Inj SQ SCH ×4 (08:11→22:42)
[2018-05-10] MEDS: Psyllium Husk SF 3.4 GM in 5.8 GM Packet PO SCH ×2 (09:19→22:38)
[2018-05-10] MEDS: Senna/Docusate Sodium 8.6/50 MG Tablet PO SCH ×2 (09:21→22:39)
[2018-05-10] MEDS: guaiFENesin 600 MG ER Tablet PO SCH ×2 (09:21→22:39)
[2018-05-10] MEDS: Furosemide 40 MG Tablet PO SCH ×2 (09:22→22:38)
[2018-05-10] MEDS: Gabapentin 100 MG Capsule PO SCH ×3 (09:22→17:37)
[2018-05-10] MEDS: Amiodarone 200 MG Tablet PO SCH ×2 (09:22→22:38)
[2018-05-10] MEDS: Carvedilol 12.5 MG Tablet PO SCH ×2 (09:22→22:39)
[2018-05-10] MEDS: Famotidine 20 MG Tablet PO SCH ×2 (09:23→22:39)
[2018-05-10] MEDS: Allopurinol 100 MG Tablet PO SCH (09:23)
[2018-05-10] MEDS: Insulin Detemir Inj 1,000 UNIT/10 ML Vial SQ SCH ×2 (09:24→22:40)
[2018-05-10] MEDS: Methylnaltrexone Inj 12 MG/0.6 ML Vial SQ SCH (09:24)
[2018-05-10] MEDS: Ferrous Sulfate Drops 15 MG/ML 50 ML Bottle PO SCH (09:26)
[2018-05-10] MEDS: Lactic Acid (Ammonium Lactate) 12% Lotion 225 GM Bottle TOPICAL SCH ×2 (09:27→22:42)
[2018-05-10] MEDS: Sodium Chloride 0.65% Nasal Drops/Spray 30 ML Bottle EACH NARE SCH ×2 (11:16→22:41)
[2018-05-10] MEDS: Calamine/Pramoxine Lotion 180 ML Bottle TOPICAL SCH ×2 (11:17→22:41)
--- NOTE | 2018-05-10 12:12 | P.PNIM ---
Subjective Interval history: in no distress. no new complaints. Physical Exam Vital signs: Vital Signs 05/09/18 16:00 05/09/18 19:31 05/09/18 20:00 Temperature 97.4 F L 98.2 F Pulse Rate 59 L 62 58 L Respiratory Rate 18 18 20 Blood Pressure 113/55 L 125/59 L Pulse Oximetry 98 98 99 05/10/18 00:00 05/10/18 03:07 05/10/18 04:00 Temperature 97.4 F L 98.5 F Pulse Rate 59 L 60 90 Respiratory Rate 20 16 16 Blood Pressure 140/65 132/67 Pulse Oximetry 98 97 05/10/18 07:29 05/10/18 08:00 Temperature 98.2 F Pulse Rate 60 59 L Respiratory Rate 16 18 Blood Pressure 115/56 L Pulse Oximetry 97 100 Intake & Output 05/09/18 05/10/18 05/10/18 18:59 06:59 18:59 Intake Total 1096 / 1096 480 / 480 Balance 1096 / 1096 480 / 480 Weight 135.6 kg Intake: Oral 1096 / 1096 480 / 480 Other: # Incontinent Voids 3 4 Date of Last Bowel Movement 05/09/18 05/09/18 # Bowel Movements 1 0 - Constitutional no acute distress - Routine Respiratory Exam Present: CTA bilaterally - Routine Cardiovascular Exam Present: RRR - Routine Abdominal Exam Present: soft Results - Labs CBC & Chem 7: 04/26/18 15:30 04/26/18 15:30 Laboratory Results - last 24 hr 05/09/18 05/09/18 05/09/18 12:48 17:06 20:18 POC Glucose 163 H 140 H 145 H 05/10/18 05/10/18 07:38 11:50 POC Glucose 113 H 151 H - Procedures 04/30- EGD with dilatation 05/02- colonoscopy- small rectal ulcer, internal and external hemorrhoids Assessment and Plan - Assessment (1) Respiratory failure with hypoxia and hypercapnia Code(s): J96.91 - Respiratory failure, unspecified with hypoxia; J96.92 - Respiratory failure, unspecified with hypercapnia Status: Acute (2) Acute kidney injury superimposed on CKD Code(s): N17.9 - Acute kidney failure, unspecified; N18.9 - Chronic kidney disease, unspecified Status: Acute (3) Acute metabolic encephalopathy Code(s): G93.41 - Metabolic encephalopathy Status: Resolved (4) Altered mental status Code(s): R41.82 - Altered mental status, unspecified Status: Resolved (5) Obesity Code(s): E66.9 - Obesity, unspecified Status: Chronic - Plan Dysphagia with GERD symptoms S/P EGD with dilatation- 04/30 S/P colonoscopy 05/02- poorp pre- some rectal ulcer/ hemorrhoids - regular consistency diet Acute on chronic hypercapnic respiratory insufficiency, on home oxygen. PMH COPD , Obstructive sleep apnea. Does not tolerate CPAP mask due to the noise. Status post treatment of MRSA pneumonia -Pulmonology following, CPAP as needed, DuoNebs CHF, not in exacerbation, CAD s/p CABG. echo from September showed EF 55-60% -On ASA, Amiodarone 200mg BID, Coreg 12.5mg BID, Clonidine 0.1mg Q8, Plavix 75mg daily, Lasix 40 mg twice daily Hypertension -Continue carvedilol 12.5 mg po bid , clonidine- decrease clondiine to 0.1 mg po bid Diabetes Mellitus, type 2- good readings -Supplemental sliding scale -Levemir 10 units twice daily on ADA/cardiac diet - requesting for PB + jelly Scrotal pain- improved Per Dr. Woodruff likely from anasarca. Ultrasound noted. Hypotestosteronism -02/23 total testosterone was 13, free 0.14; s/p 100mg injection. Repeat total testosterone 451/free testosterone 14.4 03/27 Left upper and lower extremity weakness- improved -Head CT on 02/25 shows no acute changes. CT of the neck shows C6-[address] of lumbar spine shows L3-4 herniation with L3 nerve root impingement -Per NS, the disc herniation is nonsurgical. S/P course steroids Morbid obesity/debility: -PT daily to mobilize the patient more. -Slowly improving Insomnia -Continue Trazodone 100mg HS, PRN Zolpidem, HS Melatonin Constipation, chronic -laxatives/ enema as needed. Iron deficiency anemia-on iron sulfate. Left Knee Pain: possible strain, left knee x-ray unremarkable. Continue pain control. better range of motion DVT prophylaxis: Lovenox DVT prophylaxis: Lovenox Discharge Planning: awaiting placement. (1) Respiratory failure with hypoxia and hypercapnia Qualifiers: Chronicity: chronic Qualified Code(s): J96.11 - Chronic respiratory failure with hypoxia; J96.12 - Chronic respiratory failure with hypercapnia
[2018-05-10] MEDS: Enoxaparin Inj 40 MG/0.4 ML Syringe SQ SCH (17:37)
--- NOTE | 2018-05-10 18:45 | P.PNPL ---
Subjective Interval history: 57 YO Obese male with TANA Works with PT Breathing about the same On 4LNC Comfortable, sleeping Physical Exam Vital signs: Vital Signs 05/09/18 19:31 05/09/18 20:00 05/10/18 00:00 Temperature 98.2 F 97.4 F L Pulse Rate 62 58 L 59 L Respiratory Rate 18 20 20 Blood Pressure 125/59 L 140/65 Pulse Oximetry 98 99 98 05/10/18 03:07 05/10/18 04:00 05/10/18 07:29 Temperature 98.5 F Pulse Rate 60 90 60 Respiratory Rate 16 16 16 Blood Pressure 132/67 Pulse Oximetry 97 97 05/10/18 08:00 05/10/18 12:00 Temperature 98.2 F 98.1 F Pulse Rate 59 L 60 Respiratory Rate 18 16 Blood Pressure 115/56 L 128/58 L Pulse Oximetry 100 99 Intake & Output 05/09/18 05/10/18 05/10/18 18:59 06:59 18:59 Intake Total 1096 / 1096 480 / 480 Balance 1096 / 1096 480 / 480 Weight 135.6 kg Intake: Oral 1096 / 1096 480 / 480 Other: # Incontinent Voids 3 4 4 Date of Last Bowel Movement 05/09/18 05/09/18 05/10/18 # Bowel Movements 1 0 GENERAL: Obese WM, NAD SKIN: Warm and dry. HEAD: Normocephalic. EYES: No scleral icterus. No injection or drainage. NECK: Supple, trachea midline. No JVD or lymphadenopathy. CARDIOVASCULAR: Regular rate and rhythm without murmurs, gallops, or rubs. RESPIRATORY: Breath sounds equal bilaterally. No accessory muscle use. GASTROINTESTINAL: Abdomen soft, non-tender, nondistended. MUSCULOSKELETAL: No cyanosis, or edema. BACK: Nontender without obvious deformity. No CVA tenderness. Assessment and Plan - Plan IMPRESSION: TANA COPD CHF Morbid obesity Gen Weakness/ deconditioning PLAN: Supplement 02, 4LNC Keep sat 88-92% Diurease Aerosol nebs Stable from Pulm standpoint
[2018-05-10] MEDS: traZODone 50 MG Tablet PO SCH (22:38)
[2018-05-10] MEDS: Zolpidem Tartrate 5 MG Tablet PO PRN (22:39)
[2018-05-10] MEDS: Melatonin 5 MG Tablet PO PRN (22:40)
[2018-05-11] MEDS: LORazepam 1 MG Tablet PO PRN ×4 (05:15→23:55)
[2018-05-11] MEDS: Nystatin 100,000 UNITS/GM Powder 15 GM Bottle TOPICAL SCH ×3 (05:17→23:31)
[2018-05-11] MEDS: Insulin NovoLOG Aspart Correctional Sugar Inj SQ SCH ×4 (08:50→22:58)
[2018-05-11] MEDS: Allopurinol 100 MG Tablet PO SCH (08:51)
[2018-05-11] MEDS: Psyllium Husk SF 3.4 GM in 5.8 GM Packet PO SCH ×2 (08:51→20:47)
[2018-05-11] MEDS: Senna/Docusate Sodium 8.6/50 MG Tablet PO SCH ×2 (08:52→20:48)
[2018-05-11] MEDS: guaiFENesin 600 MG ER Tablet PO SCH ×2 (08:52→20:47)
[2018-05-11] MEDS: Gabapentin 100 MG Capsule PO SCH ×3 (08:52→17:19)
[2018-05-11] MEDS: Famotidine 20 MG Tablet PO SCH ×2 (08:53→20:48)
[2018-05-11] MEDS: Furosemide 40 MG Tablet PO SCH ×2 (08:54→20:48)
[2018-05-11] MEDS: Amiodarone 200 MG Tablet PO SCH ×2 (08:55→20:47)
[2018-05-11] MEDS: Methylnaltrexone Inj 12 MG/0.6 ML Vial SQ SCH (08:55)
[2018-05-11] MEDS: Carvedilol 12.5 MG Tablet PO SCH ×2 (08:55→22:25)
[2018-05-11] MEDS: Insulin Detemir Inj 1,000 UNIT/10 ML Vial SQ SCH ×2 (08:55→22:24)
[2018-05-11] MEDS: Ferrous Sulfate Drops 15 MG/ML 50 ML Bottle PO SCH (08:57)
[2018-05-11] MEDS: Sodium Chloride 0.65% Nasal Drops/Spray 30 ML Bottle EACH NARE SCH ×2 (08:58→22:25)
[2018-05-11] MEDS: Calamine/Pramoxine Lotion 180 ML Bottle TOPICAL SCH ×2 (08:59→22:25)
[2018-05-11] MEDS: Lactic Acid (Ammonium Lactate) 12% Lotion 225 GM Bottle TOPICAL SCH ×2 (08:59→22:25)
--- NOTE | 2018-05-11 11:16 | P.PNIM ---
Subjective Interval history: in no acute distress. no change clinically with no new complaints. d/w the RN. Physical Exam Vital signs: Vital Signs 05/10/18 12:00 05/10/18 16:00 05/10/18 19:09 Temperature 98.1 F 97.6 F Pulse Rate 60 60 87 Respiratory Rate 16 18 18 Blood Pressure 128/58 L 111/52 L Pulse Oximetry 99 97 05/10/18 19:10 05/10/18 20:00 05/10/18 22:43 Temperature 97.4 F L Pulse Rate 61 80 Respiratory Rate 17 18 Blood Pressure 116/57 L Pulse Oximetry 97 98 05/11/18 00:00 05/11/18 04:00 05/11/18 08:00 Temperature 98.8 F 97.7 F 98.2 F Pulse Rate 60 61 60 Respiratory Rate 22 17 18 Blood Pressure 123/58 L 111/54 L 108/55 L Pulse Oximetry 96 98 100 05/11/18 08:14 Temperature Pulse Rate 60 Respiratory Rate Blood Pressure Pulse Oximetry 99 Intake & Output 05/10/18 05/11/18 05/11/18 18:59 06:59 18:59 Intake Total 960 / 960 1040 / 1040 Balance 960 / 960 1040 / 1040 Weight 137 kg Intake: Oral 960 / 960 1040 / 1040 Other: # Voids 5 # Incontinent Voids 4 Date of Last Bowel Movement 05/10/18 05/09/18 # Bowel Movements 2 0 - Constitutional no acute distress - Routine Respiratory Exam Present: CTA bilaterally - Routine Cardiovascular Exam Present: RRR - Routine Abdominal Exam Present: soft Results - Labs CBC & Chem 7: 04/26/18 15:30 04/26/18 15:30 Laboratory Results - last 24 hr 05/10/18 05/10/18 05/10/18 11:50 17:21 22:37 POC Glucose 151 H 139 H 133 H 05/11/18 07:31 POC Glucose 121 H - Procedures 04/30- EGD with dilatation 05/02- colonoscopy- small rectal ulcer, internal and external hemorrhoids Assessment and Plan - Assessment (1) Respiratory failure with hypoxia and hypercapnia Code(s): J96.91 - Respiratory failure, unspecified with hypoxia; J96.92 - Respiratory failure, unspecified with hypercapnia Status: Acute (2) Acute kidney injury superimposed on CKD Code(s): N17.9 - Acute kidney failure, unspecified; N18.9 - Chronic kidney disease, unspecified Status: Acute (3) Acute metabolic encephalopathy Code(s): G93.41 - Metabolic encephalopathy Status: Resolved (4) Altered mental status Code(s): R41.82 - Altered mental status, unspecified Status: Resolved (5) Obesity Code(s): E66.9 - Obesity, unspecified Status: Chronic - Plan Dysphagia with GERD symptoms S/P EGD with dilatation- 04/30 S/P colonoscopy 05/02- poor prep- some rectal ulcer/ hemorrhoids - regular consistency diet Acute on chronic hypercapnic respiratory insufficiency, on home oxygen. PMH COPD , Obstructive sleep apnea. Does not tolerate CPAP mask due to the noise. Status post treatment of MRSA pneumonia -Pulmonology following, CPAP as needed, DuoNebs CHF, not in exacerbation, CAD s/p CABG. echo from September showed EF 55-60% -On ASA, Amiodarone 200mg BID, Coreg 12.5mg BID, Clonidine 0.1mg Q8, Plavix 75mg daily, Lasix 40 mg twice daily Hypertension -Continue carvedilol 12.5 mg po bid , clonidine- decrease clondiine to 0.1 mg po bid Diabetes Mellitus, type 2- good readings -Supplemental sliding scale -Levemir 10 units twice daily on ADA/cardiac diet - requesting for PB + jelly Scrotal pain- improved Per Dr. Woodruff likely from anasarca. Ultrasound noted. Hypotestosteronism -02/23 total testosterone was 13, free 0.14; s/p 100mg injection. Repeat total testosterone 451/free testosterone 14.4 7 Left upper and lower extremity weakness- improved -Head CT on 02/25 shows no acute changes. CT of the neck shows C6-[address] of lumbar spine shows L3-4 herniation with L3 nerve root impingement -Per NS, the disc herniation is nonsurgical. S/P course steroids Morbid obesity/debility: -PT daily to mobilize the patient more. -Slowly improving Insomnia -Continue Trazodone 100mg HS, PRN Zolpidem, HS Melatonin Constipation, chronic -laxatives/ enema as needed. Iron deficiency anemia-on iron sulfate. Left Knee Pain: possible strain, left knee x-ray unremarkable. Continue pain control. better range of motion DVT prophylaxis: Lovenox DVT prophylaxis: Lovenox Discharge Planning: awaiting placement. (1) Respiratory failure with hypoxia and hypercapnia Qualifiers: Chronicity: chronic Qualified Code(s): J96.11 - Chronic respiratory failure with hypoxia; J96.12 - Chronic respiratory failure with hypercapnia
--- NOTE | 2018-05-11 14:36 | P.PNPL ---
Subjective Interval history: 57 YO Obese male with TANA Works with PT Breathing about the same On 4LNC Comfortable, sleeping Wants to try BIPAP Physical Exam Vital signs: Vital Signs 05/10/18 16:00 05/10/18 19:09 05/10/18 19:10 Temperature 97.6 F Pulse Rate 60 87 Respiratory Rate 18 18 Blood Pressure 111/52 L Pulse Oximetry 97 97 05/10/18 20:00 05/10/18 22:43 05/11/18 00:00 Temperature 97.4 F L 98.8 F Pulse Rate 61 80 60 Respiratory Rate 17 18 22 Blood Pressure 116/57 L 123/58 L Pulse Oximetry 98 96 05/11/18 04:00 05/11/18 08:00 05/11/18 08:14 Temperature 97.7 F 98.2 F Pulse Rate 61 60 60 Respiratory Rate 17 18 Blood Pressure 111/54 L 108/55 L Pulse Oximetry 98 100 99 05/11/18 12:00 Temperature 98.0 F Pulse Rate 56 L Respiratory Rate 18 Blood Pressure 107/58 L Pulse Oximetry 100 Intake & Output 05/10/18 05/11/18 05/11/18 18:59 06:59 18:59 Intake Total 960 / 960 1040 / 1040 Balance 960 / 960 1040 / 1040 Weight 137 kg Intake: Oral 960 / 960 1040 / 1040 Other: # Voids 5 # Incontinent Voids 4 Date of Last Bowel Movement 05/10/18 05/09/18 05/10/18 # Bowel Movements 2 0 GENERAL: Obese wm, NAD SKIN: Warm and dry. HEAD: Normocephalic. EYES: No scleral icterus. No injection or drainage. NECK: Supple, trachea midline. No JVD or lymphadenopathy. CARDIOVASCULAR: Regular rate and rhythm without murmurs, gallops, or rubs. RESPIRATORY: Breath sounds equal bilaterally. No accessory muscle use. GASTROINTESTINAL: Abdomen soft, non-tender, nondistended. MUSCULOSKELETAL: No cyanosis, or edema. BACK: Nontender without obvious deformity. No CVA tenderness. Assessment and Plan - Plan IMPRESSION: TANA COPD CHF Morbid obesity Gen Weakness/ deconditioning PLAN: Supplement 02, 4LNC Keep sat 88-92% Diurease Aerosol nebs Stable from Pulm standpoint Will try BIPAP 10/5 at night
[2018-05-11] MEDS: Enoxaparin Inj 40 MG/0.4 ML Syringe SQ SCH (18:14)
[2018-05-11] MEDS: traZODone 50 MG Tablet PO SCH (20:48)
[2018-05-12] MEDS: Nystatin 100,000 UNITS/GM Powder 15 GM Bottle TOPICAL SCH ×3 (06:51→22:39)
[2018-05-12] MEDS: LORazepam 1 MG Tablet PO PRN ×3 (09:50→22:39)
[2018-05-12] MEDS: guaiFENesin 600 MG ER Tablet PO SCH ×2 (09:51→22:38)
[2018-05-12] MEDS: Famotidine 20 MG Tablet PO SCH ×2 (09:51→22:39)
[2018-05-12] MEDS: Allopurinol 100 MG Tablet PO SCH (09:51)
[2018-05-12] MEDS: Furosemide 40 MG Tablet PO SCH ×2 (09:51→22:37)
[2018-05-12] MEDS: Carvedilol 12.5 MG Tablet PO SCH ×2 (09:51→22:36)
[2018-05-12] MEDS: Gabapentin 100 MG Capsule PO SCH ×3 (09:51→18:04)
[2018-05-12] MEDS: Amiodarone 200 MG Tablet PO SCH ×2 (09:51→22:36)
[2018-05-12] MEDS: Ferrous Sulfate Drops 15 MG/ML 50 ML Bottle PO SCH (09:54)
[2018-05-12] MEDS: Psyllium Husk SF 3.4 GM in 5.8 GM Packet PO SCH ×2 (09:57→22:38)
[2018-05-12] MEDS: Insulin NovoLOG Aspart Correctional Sugar Inj SQ SCH ×4 (09:58→22:38)
[2018-05-12] MEDS: Insulin Detemir Inj 1,000 UNIT/10 ML Vial SQ SCH ×2 (09:59→22:37)
[2018-05-12] MEDS: Senna/Docusate Sodium 8.6/50 MG Tablet PO SCH ×2 (09:59→22:39)
[2018-05-12] MEDS: Lactic Acid (Ammonium Lactate) 12% Lotion 225 GM Bottle TOPICAL SCH ×2 (09:59→22:37)
--- NOTE | 2018-05-12 11:50 | P.PNIM ---
Subjective Interval history: in no distress. no new complaints. Physical Exam Vital signs: Vital Signs 05/11/18 12:00 05/11/18 16:00 05/11/18 20:00 Temperature 98.0 F 97.8 F 98.0 F Pulse Rate 56 L 59 L 61 Respiratory Rate 18 18 17 Blood Pressure 107/58 L 112/57 L 112/67 Pulse Oximetry 100 100 99 05/11/18 21:50 05/12/18 00:00 05/12/18 04:00 Temperature 98.2 F 97.9 F Pulse Rate 92 H 61 65 Respiratory Rate 16 22 22 Blood Pressure 107/55 L 130/67 Pulse Oximetry 98 96 99 05/12/18 08:47 05/12/18 09:00 Temperature 98.3 F Pulse Rate 65 65 Respiratory Rate 19 20 Blood Pressure 123/66 Pulse Oximetry 99 96 Intake & Output 05/11/18 05/12/18 05/12/18 18:59 06:59 18:59 Intake Total 840 / 840 1380 / 1380 Balance 840 / 840 1380 / 1380 Weight 136.7 kg Intake: Oral 840 / 840 1380 / 1380 Other: # Incontinent Voids 5 4 Date of Last Bowel Movement 05/10/18 # Bowel Movements 0 - Routine Respiratory Exam Present: CTA bilaterally - Routine Cardiovascular Exam Present: RRR - Routine Abdominal Exam Present: soft Results - Labs CBC & Chem 7: 04/26/18 15:30 04/26/18 15:30 Laboratory Results - last 24 hr 05/11/18 05/11/18 05/12/18 17:18 19:47 09:47 POC Glucose 325 H 127 H 106 - Procedures 04/30- EGD with dilatation 05/02- colonoscopy- small rectal ulcer, internal and external hemorrhoids Assessment and Plan - Assessment (1) Respiratory failure with hypoxia and hypercapnia Code(s): J96.91 - Respiratory failure, unspecified with hypoxia; J96.92 - Respiratory failure, unspecified with hypercapnia Status: Acute (2) Acute kidney injury superimposed on CKD Code(s): N17.9 - Acute kidney failure, unspecified; N18.9 - Chronic kidney disease, unspecified Status: Acute (3) Acute metabolic encephalopathy Code(s): G93.41 - Metabolic encephalopathy Status: Resolved (4) Altered mental status Code(s): R41.82 - Altered mental status, unspecified Status: Resolved (5) Obesity Code(s): E66.9 - Obesity, unspecified Status: Chronic - Plan Dysphagia with GERD symptoms S/P EGD with dilatation- 04/30 S/P colonoscopy 05/02- poor prep- some rectal ulcer/ hemorrhoids - regular consistency diet Acute on chronic hypercapnic respiratory insufficiency, on home oxygen. PMH COPD , Obstructive sleep apnea. Does not tolerate CPAP mask due to the noise. Status post treatment of MRSA pneumonia -Pulmonology following, CPAP as needed, DuoNebs CHF, not in exacerbation, CAD s/p CABG. echo from September showed EF 55-60% -On ASA, Amiodarone 200mg BID, Coreg 12.5mg BID, Clonidine 0.1mg Q8, Plavix 75mg daily, Lasix 40 mg twice daily Hypertension -Continue carvedilol 12.5 mg po bid , clonidine- decrease clondiine to 0.1 mg po bid Diabetes Mellitus, type 2- good readings -Supplemental sliding scale -Levemir 10 units twice daily on ADA/cardiac diet - requesting for PB + jelly Scrotal pain- improved Per Dr. Woodruff likely from anasarca. Ultrasound noted. Hypotestosteronism -02/23 total testosterone was 13, free 0.14; s/p 100mg injection. Repeat total testosterone 451/free testosterone 14.4 03/27 Left upper and lower extremity weakness- improved -Head CT on 02/25 shows no acute changes. CT of the neck shows C6-[address] of lumbar spine shows L3-4 herniation with L3 nerve root impingement -Per NS, the disc herniation is nonsurgical. S/P course steroids Morbid obesity/debility: -PT daily to mobilize the patient more. -Slowly improving Insomnia -Continue Trazodone 100mg HS, PRN Zolpidem, HS Melatonin Constipation, chronic -laxatives/ enema as needed. Iron deficiency anemia-on iron sulfate. Left Knee Pain: possible strain, left knee x-ray unremarkable. Continue pain control. better range of motion DVT prophylaxis: Lovenox DVT prophylaxis: Lovenox Discharge Planning: awaiting placement. (1) Respiratory failure with hypoxia and hypercapnia Qualifiers: Chronicity: chronic Qualified Code(s): J96.11 - Chronic respiratory failure with hypoxia; J96.12 - Chronic respiratory failure with hypercapnia
[2018-05-12] MEDS: Sodium Chloride 0.65% Nasal Drops/Spray 30 ML Bottle EACH NARE SCH ×2 (14:12→22:35)
[2018-05-12] MEDS: Calamine/Pramoxine Lotion 180 ML Bottle TOPICAL SCH ×2 (14:12→22:35)
[2018-05-12] MEDS: Methylnaltrexone Inj 12 MG/0.6 ML Vial SQ SCH (14:12)
[2018-05-12] MEDS: Enoxaparin Inj 40 MG/0.4 ML Syringe SQ SCH (18:04)
[2018-05-12] MEDS: traZODone 50 MG Tablet PO SCH (22:36)
[2018-05-12] MEDS: Zolpidem Tartrate 5 MG Tablet PO PRN ×2 (22:39)
[2018-05-13] MEDS: Nystatin 100,000 UNITS/GM Powder 15 GM Bottle TOPICAL SCH ×2 (06:29→14:12)
[2018-05-13] MEDS: Amiodarone 200 MG Tablet PO SCH ×2 (09:35→21:08)
[2018-05-13] MEDS: Furosemide 40 MG Tablet PO SCH ×2 (09:35→21:08)
[2018-05-13] MEDS: Allopurinol 100 MG Tablet PO SCH (09:36)
[2018-05-13] MEDS: Famotidine 20 MG Tablet PO SCH ×2 (09:36→21:08)
[2018-05-13] MEDS: Senna/Docusate Sodium 8.6/50 MG Tablet PO SCH ×2 (09:36→21:08)
[2018-05-13] MEDS: Gabapentin 100 MG Capsule PO SCH ×3 (09:36→17:56)
[2018-05-13] MEDS: guaiFENesin 600 MG ER Tablet PO SCH ×2 (09:36→21:09)
[2018-05-13] MEDS: Carvedilol 12.5 MG Tablet PO SCH ×2 (09:36→21:08)
[2018-05-13] MEDS: LORazepam 1 MG Tablet PO PRN ×3 (09:40→23:08)
[2018-05-13] MEDS: Methylnaltrexone Inj 12 MG/0.6 ML Vial SQ SCH (09:40)
--- NOTE | 2018-05-13 10:46 | P.PNIM ---
Subjective Interval history: in no distress. no new complaints. Physical Exam Vital signs: Vital Signs 05/12/18 12:00 05/12/18 16:00 05/12/18 19:36 Temperature 98 F 97.8 F Pulse Rate 71 65 62 Respiratory Rate 20 20 18 Blood Pressure 120/59 L 123/69 Pulse Oximetry 98 97 05/12/18 20:00 05/13/18 00:00 05/13/18 04:00 Temperature 98.0 F 97.4 F L 98.2 F Pulse Rate 62 95 H 60 Respiratory Rate 21 18 18 Blood Pressure 115/56 L 112/68 121/58 L Pulse Oximetry 100 91 L 98 05/13/18 08:00 05/13/18 09:01 Temperature 98.0 F Pulse Rate 64 60 Respiratory Rate 14 18 Blood Pressure 124/54 L Pulse Oximetry 96 98 Intake & Output 05/12/18 05/13/18 05/13/18 18:59 06:59 18:59 Intake Total 480 / 480 Balance 480 / 480 Weight 136.2 kg Intake: Oral 480 / 480 Other: # Voids 2 # Urine Diapers 4 Date of Last Bowel Movement 05/12/18 05/12/18 # Bowel Movements 2 - Constitutional no acute distress - Routine Respiratory Exam Present: CTA bilaterally - Routine Cardiovascular Exam Present: RRR - Routine Abdominal Exam Present: soft Results - Labs CBC & Chem 7: 04/26/18 15:30 04/26/18 15:30 Laboratory Results - last 24 hr 05/12/18 05/12/18 05/12/18 13:34 18:06 20:02 POC Glucose 160 H 171 H 165 H 05/13/18 09:35 POC Glucose 121 H - Procedures 04/30- EGD with dilatation 05/02- colonoscopy- small rectal ulcer, internal and external hemorrhoids Assessment and Plan - Assessment (1) Respiratory failure with hypoxia and hypercapnia Code(s): J96.91 - Respiratory failure, unspecified with hypoxia; J96.92 - Respiratory failure, unspecified with hypercapnia Status: Acute (2) Acute kidney injury superimposed on CKD Code(s): N17.9 - Acute kidney failure, unspecified; N18.9 - Chronic kidney disease, unspecified Status: Acute (3) Acute metabolic encephalopathy Code(s): G93.41 - Metabolic encephalopathy Status: Resolved (4) Altered mental status Code(s): R41.82 - Altered mental status, unspecified Status: Resolved (5) Obesity Code(s): E66.9 - Obesity, unspecified Status: Chronic - Plan Dysphagia with GERD symptoms S/P EGD with dilatation- 04/30 S/P colonoscopy 05/02- poor prep- some rectal ulcer/ hemorrhoids - regular consistency diet Acute on chronic hypercapnic respiratory insufficiency, on home oxygen. PMH COPD , Obstructive sleep apnea. Does not tolerate CPAP mask due to the noise. Status post treatment of MRSA pneumonia -Pulmonology following, CPAP as needed, DuoNebs CHF, not in exacerbation, CAD s/p CABG. echo from September showed EF 55-60% -On ASA, Amiodarone 200mg BID, Coreg 12.5mg BID, Clonidine 0.1mg Q8, Plavix 75mg daily, Lasix 40 mg twice daily Hypertension -Continue carvedilol 12.5 mg po bid , clonidine- decrease clondiine to 0.1 mg po bid Diabetes Mellitus, type 2- good readings -Supplemental sliding scale -Levemir 10 units twice daily on ADA/cardiac diet - requesting for PB + jelly Scrotal pain- improved Per Dr. Woodruff likely from anasarca. Ultrasound noted. Hypotestosteronism -02/23 total testosterone was 13, free 0.14; s/p 100mg injection. Repeat total testosterone 451/free testosterone 14.4 03/27 Left upper and lower extremity weakness- improved -Head CT on 02/25 shows no acute changes. CT of the neck shows C6-[address] of lumbar spine shows L3-4 herniation with L3 nerve root impingement -Per NS, the disc herniation is nonsurgical. S/P course steroids Morbid obesity/debility: -PT daily to mobilize the patient more. -Slowly improving Insomnia -Continue Trazodone 100mg HS, PRN Zolpidem, HS Melatonin Constipation, chronic -laxatives/ enema as needed. Iron deficiency anemia-on iron sulfate. Left Knee Pain: possible strain, left knee x-ray unremarkable. Continue pain control. better range of motion DVT prophylaxis: Lovenox DVT prophylaxis: Lovenox Discharge Planning: awaiting placement. (1) Respiratory failure with hypoxia and hypercapnia Qualifiers: Chronicity: chronic Qualified Code(s): J96.11 - Chronic respiratory failure with hypoxia; J96.12 - Chronic respiratory failure with hypercapnia
[2018-05-13] MEDS: Ferrous Sulfate Drops 15 MG/ML 50 ML Bottle PO SCH (14:11)
[2018-05-13] MEDS: Sodium Chloride 0.65% Nasal Drops/Spray 30 ML Bottle EACH NARE SCH ×2 (14:11→21:10)
[2018-05-13] MEDS: Calamine/Pramoxine Lotion 180 ML Bottle TOPICAL SCH ×2 (14:11→21:10)
[2018-05-13] MEDS: Insulin NovoLOG Aspart Correctional Sugar Inj SQ SCH ×4 (14:11→21:11)
[2018-05-13] MEDS: Lactic Acid (Ammonium Lactate) 12% Lotion 225 GM Bottle TOPICAL SCH ×2 (14:12→21:10)
[2018-05-13] MEDS: Insulin Detemir Inj 1,000 UNIT/10 ML Vial SQ SCH ×2 (14:12→21:10)
[2018-05-13] MEDS: Psyllium Husk SF 3.4 GM in 5.8 GM Packet PO SCH ×2 (14:12→21:10)
[2018-05-13] MEDS: Enoxaparin Inj 40 MG/0.4 ML Syringe SQ SCH (17:56)
[2018-05-13] MEDS: Zolpidem Tartrate 5 MG Tablet PO PRN (21:07)
[2018-05-13] MEDS: traZODone 50 MG Tablet PO SCH (21:08)
[2018-05-14] MEDS: Nystatin 100,000 UNITS/GM Powder 15 GM Bottle TOPICAL SCH ×3 (01:44→13:02)
[2018-05-14] MEDS: LORazepam 1 MG Tablet PO PRN ×3 (06:17→18:44)
[2018-05-14] MEDS: Insulin NovoLOG Aspart Correctional Sugar Inj SQ SCH ×4 (09:19→21:54)
[2018-05-14] MEDS: Furosemide 40 MG Tablet PO SCH ×2 (09:21→21:50)
[2018-05-14] MEDS: Sodium Chloride 0.65% Nasal Drops/Spray 30 ML Bottle EACH NARE SCH ×2 (09:21→21:52)
[2018-05-14] MEDS: Senna/Docusate Sodium 8.6/50 MG Tablet PO SCH ×2 (09:21→21:50)
[2018-05-14] MEDS: Amiodarone 200 MG Tablet PO SCH ×2 (09:21→21:50)
[2018-05-14] MEDS: Famotidine 20 MG Tablet PO SCH ×2 (09:22→21:50)
[2018-05-14] MEDS: Gabapentin 100 MG Capsule PO SCH ×3 (09:22→17:42)
[2018-05-14] MEDS: Carvedilol 12.5 MG Tablet PO SCH ×2 (09:22→21:50)
[2018-05-14] MEDS: Allopurinol 100 MG Tablet PO SCH (09:22)
[2018-05-14] MEDS: Calamine/Pramoxine Lotion 180 ML Bottle TOPICAL SCH ×2 (09:23→21:52)
[2018-05-14] MEDS: guaiFENesin 600 MG ER Tablet PO SCH ×2 (09:23→21:56)
[2018-05-14] MEDS: Psyllium Husk SF 3.4 GM in 5.8 GM Packet PO SCH ×2 (09:23→21:53)
[2018-05-14] MEDS: Lactic Acid (Ammonium Lactate) 12% Lotion 225 GM Bottle TOPICAL SCH ×2 (09:23→21:52)
[2018-05-14] MEDS: Methylnaltrexone Inj 12 MG/0.6 ML Vial SQ SCH (09:24)
[2018-05-14] MEDS: Insulin Detemir Inj 1,000 UNIT/10 ML Vial SQ SCH ×2 (09:24→21:54)
[2018-05-14] MEDS: Ferrous Sulfate Drops 15 MG/ML 50 ML Bottle PO SCH (09:25)
--- NOTE | 2018-05-14 11:18 | P.PNIM ---
Subjective Interval history: in no distress. no new complaints. Physical Exam Vital signs: Vital Signs 05/13/18 12:00 05/13/18 17:08 05/13/18 19:00 Temperature 98.4 F Pulse Rate 60 60 Respiratory Rate 16 16 Blood Pressure 115/58 L Pulse Oximetry 97 98 05/13/18 19:59 05/13/18 20:00 05/14/18 00:00 Temperature 98.5 F 98.1 F Pulse Rate 60 63 92 H Respiratory Rate 16 18 18 Blood Pressure 114/57 L 110/70 Pulse Oximetry 99 98 93 L 05/14/18 04:00 05/14/18 08:00 05/14/18 08:36 Temperature 97.9 F 97.5 F L Pulse Rate 61 65 63 Respiratory Rate 18 18 16 Blood Pressure 129/61 126/67 Pulse Oximetry 98 96 94 L Intake & Output 05/13/18 05/14/18 05/14/18 18:59 06:59 18:59 Intake Total 240 / 240 Balance 240 / 240 Weight 74.3 kg Intake: Oral 240 / 240 Other: # Voids 2 Date of Last Bowel Movement 05/12/18 05/12/18 - Constitutional no acute distress - Routine Respiratory Exam Present: CTA bilaterally - Routine Cardiovascular Exam Present: RRR - Routine Abdominal Exam Present: soft Results - Labs CBC & Chem 7: 04/26/18 15:30 04/26/18 15:30 Laboratory Results - last 24 hr 05/13/18 05/13/18 05/13/18 13:56 17:55 20:24 POC Glucose 135 H 165 H 337 H 05/14/18 09:19 POC Glucose 112 H - Procedures 04/30- EGD with dilatation 05/02- colonoscopy- small rectal ulcer, internal and external hemorrhoids Assessment and Plan - Assessment (1) Respiratory failure with hypoxia and hypercapnia Code(s): J96.91 - Respiratory failure, unspecified with hypoxia; J96.92 - Respiratory failure, unspecified with hypercapnia Status: Acute (2) Acute kidney injury superimposed on CKD Code(s): N17.9 - Acute kidney failure, unspecified; N18.9 - Chronic kidney disease, unspecified Status: Acute (3) Acute metabolic encephalopathy Code(s): G93.41 - Metabolic encephalopathy Status: Resolved (4) Altered mental status Code(s): R41.82 - Altered mental status, unspecified Status: Resolved (5) Obesity Code(s): E66.9 - Obesity, unspecified Status: Chronic - Plan Dysphagia with GERD symptoms S/P EGD with dilatation- 04/30 S/P colonoscopy 05/02- poor prep- some rectal ulcer/ hemorrhoids - regular consistency diet Acute on chronic hypercapnic respiratory insufficiency, on home oxygen. PMH COPD , Obstructive sleep apnea. Does not tolerate CPAP mask due to the noise. Status post treatment of MRSA pneumonia -Pulmonology following, CPAP as needed, DuoNebs CHF, not in exacerbation, CAD s/p CABG. echo from September showed EF 55-60% -On ASA, Amiodarone 200mg BID, Coreg 12.5mg BID, Clonidine 0.1mg Q8, Plavix 75mg daily, Lasix 40 mg twice daily Hypertension -Continue carvedilol 12.5 mg po bid , clonidine- decrease clondiine to 0.1 mg po bid Diabetes Mellitus, type 2- good readings -Supplemental sliding scale -Levemir 10 units twice daily on ADA/cardiac diet - requesting for PB + jelly Scrotal pain- improved Per Dr. Woodruff likely from anasarca. Ultrasound noted. Hypotestosteronism -02/23 total testosterone was 13, free 0.14; s/p 100mg injection. Repeat total testosterone 451/free testosterone 14.4 03/27 Left upper and lower extremity weakness- improved -Head CT on 02/25 shows no acute changes. CT of the neck shows C6-[address] of lumbar spine shows L3-4 herniation with L3 nerve root impingement -Per NS, the disc herniation is nonsurgical. S/P course steroids Morbid obesity/debility: -PT daily to mobilize the patient more. -Slowly improving Insomnia -Continue Trazodone 100mg HS, PRN Zolpidem, HS Melatonin Constipation, chronic -laxatives/ enema as needed. Iron deficiency anemia-on iron sulfate. Left Knee Pain: possible strain, left knee x-ray unremarkable. Continue pain control. better range of motion DVT prophylaxis: Lovenox DVT prophylaxis: Lovenox Discharge Planning: awaiting placement. (1) Respiratory failure with hypoxia and hypercapnia Qualifiers: Chronicity: chronic Qualified Code(s): J96.11 - Chronic respiratory failure with hypoxia; J96.12 - Chronic respiratory failure with hypercapnia
[2018-05-14] MEDS: Enoxaparin Inj 40 MG/0.4 ML Syringe SQ SCH (17:42)
--- NOTE | 2018-05-14 18:00 | P.PNPL ---
Subjective Interval history: 57 YO Obese male with TANA Works with PT Breathing about the same On 4LNC " I feel better. I am able to stand by myself" Physical Exam Vital signs: Vital Signs 05/13/18 19:00 05/13/18 19:59 05/13/18 20:00 Temperature 98.5 F Pulse Rate 60 63 Respiratory Rate 16 18 Blood Pressure 114/57 L Pulse Oximetry 98 99 98 05/14/18 00:00 05/14/18 04:00 05/14/18 08:00 Temperature 98.1 F 97.9 F 97.5 F L Pulse Rate 92 H 61 65 Respiratory Rate 18 18 18 Blood Pressure 110/70 129/61 126/67 Pulse Oximetry 93 L 98 96 05/14/18 08:36 05/14/18 12:00 05/14/18 17:30 Temperature 98.1 F Pulse Rate 63 63 64 Respiratory Rate 16 18 16 Blood Pressure 109/54 L Pulse Oximetry 94 L 97 Intake & Output 05/13/18 05/14/18 05/14/18 18:59 06:59 18:59 Intake Total 240 / 240 Balance 240 / 240 Weight 74.3 kg Intake: Oral 240 / 240 Other: # Voids 2 Date of Last Bowel Movement 05/12/18 05/12/18 GENERAL: Obese WM, NAD SKIN: Warm and dry. HEAD: Normocephalic. EYES: No scleral icterus. No injection or drainage. NECK: Supple, trachea midline. No JVD or lymphadenopathy. CARDIOVASCULAR: Regular rate and rhythm without murmurs, gallops, or rubs. RESPIRATORY: Breath sounds equal bilaterally. No accessory muscle use. GASTROINTESTINAL: Abdomen soft, non-tender, nondistended. MUSCULOSKELETAL: No cyanosis, or edema. BACK: Nontender without obvious deformity. No CVA tenderness. Assessment and Plan - Plan IMPRESSION: TANA COPD CHF Morbid obesity Gen Weakness/ deconditioning PLAN: Supplement , 4LNC Keep sat 88-92% Diurease Aerosol nebs Stable from Pulm standpoint
[2018-05-14] MEDS: traZODone 50 MG Tablet PO SCH (21:50)
[2018-05-15] MEDS: Nystatin 100,000 UNITS/GM Powder 15 GM Bottle TOPICAL SCH ×4 (00:38→22:00)
[2018-05-15] MEDS: LORazepam 1 MG Tablet PO PRN ×4 (00:44→21:04)
[2018-05-15] MEDS: Amiodarone 200 MG Tablet PO SCH ×2 (08:10→21:05)
[2018-05-15] MEDS: Allopurinol 100 MG Tablet PO SCH (08:10)
[2018-05-15] MEDS: Carvedilol 12.5 MG Tablet PO SCH ×2 (08:10→21:05)
[2018-05-15] MEDS: Senna/Docusate Sodium 8.6/50 MG Tablet PO SCH ×2 (08:10→21:06)
[2018-05-15] MEDS: Furosemide 40 MG Tablet PO SCH ×2 (08:10→21:05)
[2018-05-15] MEDS: Gabapentin 100 MG Capsule PO SCH ×3 (08:11→17:29)
[2018-05-15] MEDS: Famotidine 20 MG Tablet PO SCH ×2 (08:11→21:05)
[2018-05-15] MEDS: guaiFENesin 600 MG ER Tablet PO SCH ×2 (08:12→21:05)
[2018-05-15] MEDS: Methylnaltrexone Inj 12 MG/0.6 ML Vial SQ SCH (08:13)
[2018-05-15] MEDS: Psyllium Husk SF 3.4 GM in 5.8 GM Packet PO SCH ×2 (08:15→21:09)
[2018-05-15] MEDS: Insulin NovoLOG Aspart Correctional Sugar Inj SQ SCH ×4 (08:17→21:11)
[2018-05-15] MEDS: Lactic Acid (Ammonium Lactate) 12% Lotion 225 GM Bottle TOPICAL SCH ×2 (08:18→21:08)
[2018-05-15] MEDS: Calamine/Pramoxine Lotion 180 ML Bottle TOPICAL SCH ×2 (08:18→21:07)
[2018-05-15] MEDS: Sodium Chloride 0.65% Nasal Drops/Spray 30 ML Bottle EACH NARE SCH ×2 (08:18→21:08)
[2018-05-15] MEDS: Insulin Detemir Inj 1,000 UNIT/10 ML Vial SQ SCH ×2 (09:02→21:10)
[2018-05-15] MEDS: Ferrous Sulfate Drops 15 MG/ML 50 ML Bottle PO SCH (09:02)
--- NOTE | 2018-05-15 11:28 | P.PNIM ---
Subjective Interval history: in no distress. no new complaints. Physical Exam Vital signs: Vital Signs 05/14/18 12:00 05/14/18 16:00 05/14/18 17:30 Temperature 98.1 F 97.5 F L Pulse Rate 63 64 64 Respiratory Rate 18 18 16 Blood Pressure 109/54 L 128/60 Pulse Oximetry 97 99 05/14/18 20:00 05/14/18 20:21 05/14/18 20:23 Temperature 97.7 F Pulse Rate 70 70 Respiratory Rate 18 17 Blood Pressure 133/75 Pulse Oximetry 93 L 98 98 05/15/18 00:00 05/15/18 04:00 05/15/18 08:00 Temperature 97.7 F 98 F 98.2 F Pulse Rate 70 63 63 Respiratory Rate 18 18 17 Blood Pressure 133/75 99/53 L 112/57 L Pulse Oximetry 93 L 94 L 100 05/15/18 08:55 Temperature Pulse Rate 62 Respiratory Rate 12 Blood Pressure Pulse Oximetry 99 Intake & Output 05/14/18 05/15/18 05/15/18 18:59 06:59 18:59 Intake Total 960 / 960 240 / 240 Balance 960 / 960 240 / 240 Weight 136.7 kg Intake: Oral 960 / 960 240 / 240 Other: # Voids 4 4 Date of Last Bowel Movement 05/14/18 # Bowel Movements 1 0 - Constitutional no acute distress - Routine Respiratory Exam Present: CTA bilaterally - Routine Cardiovascular Exam Present: RRR - Routine Abdominal Exam Present: soft Results - Labs CBC & Chem 7: 04/26/18 15:30 04/26/18 15:30 Laboratory Results - last 24 hr 05/14/18 05/14/18 05/14/18 12:31 17:42 20:17 POC Glucose 150 H 157 H 182 H 05/15/18 07:43 POC Glucose 136 H - Procedures 04/30- EGD with dilatation 05/02- colonoscopy- small rectal ulcer, internal and external hemorrhoids Assessment and Plan - Assessment (1) Respiratory failure with hypoxia and hypercapnia Code(s): J96.91 - Respiratory failure, unspecified with hypoxia; J96.92 - Respiratory failure, unspecified with hypercapnia Status: Acute (2) Acute kidney injury superimposed on CKD Code(s): N17.9 - Acute kidney failure, unspecified; N18.9 - Chronic kidney disease, unspecified Status: Acute (3) Acute metabolic encephalopathy Code(s): G93.41 - Metabolic encephalopathy Status: Resolved (4) Altered mental status Code(s): R41.82 - Altered mental status, unspecified Status: Resolved (5) Obesity Code(s): E66.9 - Obesity, unspecified Status: Chronic - Plan Dysphagia with GERD symptoms S/P EGD with dilatation- 04/30 S/P colonoscopy 05/02- poor prep- some rectal ulcer/ hemorrhoids - regular consistency diet Acute on chronic hypercapnic respiratory insufficiency, on home oxygen. PMH COPD , Obstructive sleep apnea. Does not tolerate CPAP mask due to the noise. Status post treatment of MRSA pneumonia -Pulmonology following, CPAP as needed, DuoNebs CHF, not in exacerbation, CAD s/p CABG. echo from September showed EF 55-60% -On ASA, Amiodarone 200mg BID, Coreg 12.5mg BID, Clonidine 0.1mg Q8, Plavix 75mg daily, Lasix 40 mg twice daily Hypertension -Continue carvedilol 12.5 mg po bid , clonidine- decrease clondiine to 0.1 mg po bid Diabetes Mellitus, type 2- good readings -Supplemental sliding scale -Levemir 10 units twice daily on ADA/cardiac diet - requesting for PB + jelly Scrotal pain- improved Per Dr. Woodruff likely from anasarca. Ultrasound noted. Hypotestosteronism -02/23 total testosterone was 13, free 0.14; s/p 100mg injection. Repeat total testosterone 451/free testosterone 14.4 03/27 Left upper and lower extremity weakness- improved -Head CT on 02/25 shows no acute changes. CT of the neck shows C6-[address] of lumbar spine shows L3-4 herniation with L3 nerve root impingement -Per NS, the disc herniation is nonsurgical. S/P course steroids Morbid obesity/debility: -PT daily to mobilize the patient more. -Slowly improving Insomnia -Continue Trazodone 100mg HS, PRN Zolpidem, HS Melatonin Constipation, chronic -laxatives/ enema as needed. Iron deficiency anemia-on iron sulfate. Left Knee Pain: possible strain, left knee x-ray unremarkable. Continue pain control. better range of motion DVT prophylaxis: Lovenox DVT prophylaxis: Lovenox Discharge Planning: awaiting placement. (1) Respiratory failure with hypoxia and hypercapnia Qualifiers: Chronicity: chronic Qualified Code(s): J96.11 - Chronic respiratory failure with hypoxia; J96.12 - Chronic respiratory failure with hypercapnia
[2018-05-15] MEDS: Enoxaparin Inj 40 MG/0.4 ML Syringe SQ SCH (17:30)
--- NOTE | 2018-05-15 19:01 | P.PNPL ---
Subjective Interval history: 57 YO Obese male with TANA Works with PT Breathing about the same On 4LNC Physical Exam Vital signs: Vital Signs 05/14/18 20:00 05/14/18 20:21 05/14/18 20:23 Temperature 97.7 F Pulse Rate 70 70 Respiratory Rate 18 17 Blood Pressure 133/75 Pulse Oximetry 93 L 98 98 05/15/18 00:00 05/15/18 04:00 05/15/18 08:00 Temperature 97.7 F 98 F 98.2 F Pulse Rate 70 63 63 Respiratory Rate 18 18 17 Blood Pressure 133/75 99/53 L 112/57 L Pulse Oximetry 93 L 94 L 100 05/15/18 08:55 05/15/18 12:00 05/15/18 16:00 Temperature 97.7 F 98.0 F Pulse Rate 62 61 59 L Respiratory Rate 12 18 18 Blood Pressure 125/60 118/59 L Pulse Oximetry 99 96 99 05/15/18 16:20 Temperature Pulse Rate 59 L Respiratory Rate 12 Blood Pressure Pulse Oximetry Intake & Output 05/15/18 05/15/18 05/16/18 06:59 18:59 06:59 Intake Total 240 / 240 1100 / 1100 Balance 240 / 240 1100 / 1100 Weight 136.7 kg Intake: Oral 240 / 240 1100 / 1100 Other: # Voids 4 # Incontinent Voids 4 Date of Last Bowel Movement 05/15/18 # Bowel Movements 0 2 GENERAL: WBWN NAD SKIN: Warm and dry. HEAD: Normocephalic. EYES: No scleral icterus. No injection or drainage. NECK: Supple, trachea midline. No JVD or lymphadenopathy. CARDIOVASCULAR: Regular rate and rhythm without murmurs, gallops, or rubs. RESPIRATORY: Breath sounds equal bilaterally. No accessory muscle use. GASTROINTESTINAL: Abdomen soft, non-tender, nondistended. MUSCULOSKELETAL: No cyanosis, or edema. BACK: Nontender without obvious deformity. No CVA tenderness. Assessment and Plan - Plan IMPRESSION: TANA COPD CHF Morbid obesity Gen Weakness/ deconditioning PLAN: Supplement 02, 4LNC Keep sat 88-92% Diurease Aerosol nebs
[2018-05-15] MEDS: traZODone 50 MG Tablet PO SCH (21:04)
[2018-05-16] MEDS: Zolpidem Tartrate 5 MG Tablet PO PRN ×2 (00:51→21:24)
[2018-05-16] MEDS: Nystatin 100,000 UNITS/GM Powder 15 GM Bottle TOPICAL SCH ×2 (05:24→18:14)
[2018-05-16] MEDS: Amiodarone 200 MG Tablet PO SCH ×2 (09:00→21:24)
[2018-05-16] MEDS: Allopurinol 100 MG Tablet PO SCH (09:00)
[2018-05-16] MEDS: Furosemide 40 MG Tablet PO SCH ×2 (09:00→21:25)
[2018-05-16] MEDS: Famotidine 20 MG Tablet PO SCH ×2 (09:00→21:25)
[2018-05-16] MEDS: Carvedilol 12.5 MG Tablet PO SCH ×2 (09:00→21:25)
[2018-05-16] MEDS: Gabapentin 100 MG Capsule PO SCH ×3 (09:00→18:13)
[2018-05-16] MEDS: Senna/Docusate Sodium 8.6/50 MG Tablet PO SCH ×2 (09:00→21:25)
[2018-05-16] MEDS: guaiFENesin 600 MG ER Tablet PO SCH ×2 (09:01→21:31)
[2018-05-16] MEDS: Methylnaltrexone Inj 12 MG/0.6 ML Vial SQ SCH (09:04)
[2018-05-16] MEDS: LORazepam 1 MG Tablet PO PRN ×3 (09:12→21:25)
--- NOTE | 2018-05-16 11:23 | P.PNIM ---
Subjective Interval history: in no distress. no change clinically. Physical Exam Vital signs: Vital Signs 05/15/18 12:00 05/15/18 16:00 05/15/18 16:20 Temperature 97.7 F 98.0 F Pulse Rate 61 59 L 59 L Respiratory Rate 18 18 12 Blood Pressure 125/60 118/59 L Pulse Oximetry 96 99 05/15/18 20:00 05/15/18 20:09 05/16/18 00:00 Temperature 98.3 F 98.6 F Pulse Rate 64 63 59 L Respiratory Rate 18 19 18 Blood Pressure 111/55 L 108/56 L Pulse Oximetry 97 97 98 05/16/18 04:00 05/16/18 08:00 05/16/18 08:04 Temperature 97.4 F L 98.2 F Pulse Rate 60 65 64 Respiratory Rate 18 18 Blood Pressure 114/60 114/53 L Pulse Oximetry 99 99 97 Intake & Output 05/15/18 05/16/18 05/16/18 18:59 06:59 18:59 Intake Total 1100 / 1100 480 / 480 Balance 1100 / 1100 480 / 480 Weight 135.2 kg Intake: Oral 1100 / 1100 480 / 480 Other: # Voids 2 # Incontinent Voids 4 Date of Last Bowel Movement 05/15/18 # Bowel Movements 2 - Constitutional no acute distress - Routine Respiratory Exam Present: CTA bilaterally - Routine Cardiovascular Exam Present: RRR - Routine Abdominal Exam Present: soft Results - Labs CBC & Chem 7: 04/26/18 15:30 04/26/18 15:30 Laboratory Results - last 24 hr 05/15/18 05/15/18 05/15/18 11:58 16:56 20:51 POC Glucose 181 H 122 H 154 H 05/16/18 09:04 POC Glucose 154 H - Procedures 04/30- EGD with dilatation 05/02- colonoscopy- small rectal ulcer, internal and external hemorrhoids Assessment and Plan - Assessment (1) Respiratory failure with hypoxia and hypercapnia Code(s): J96.91 - Respiratory failure, unspecified with hypoxia; J96.92 - Respiratory failure, unspecified with hypercapnia Status: Acute (2) Acute kidney injury superimposed on CKD Code(s): N17.9 - Acute kidney failure, unspecified; N18.9 - Chronic kidney disease, unspecified Status: Acute (3) Acute metabolic encephalopathy Code(s): G93.41 - Metabolic encephalopathy Status: Resolved (4) Altered mental status Code(s): R41.82 - Altered mental status, unspecified Status: Resolved (5) Obesity Code(s): E66.9 - Obesity, unspecified Status: Chronic - Plan Dysphagia with GERD symptoms S/P EGD with dilatation- 04/30 S/P colonoscopy 05/02- poor prep- some rectal ulcer/ hemorrhoids - regular consistency diet Acute on chronic hypercapnic respiratory insufficiency, on home oxygen. PMH COPD , Obstructive sleep apnea. Does not tolerate CPAP mask due to the noise. Status post treatment of MRSA pneumonia -Pulmonology following, CPAP as needed, DuoNebs CHF, not in exacerbation, CAD s/p CABG. echo from September showed EF 55-60% -On ASA, Amiodarone 200mg BID, Coreg 12.5mg BID, Clonidine 0.1mg Q8, Plavix 75mg daily, Lasix 40 mg twice daily Hypertension -Continue carvedilol 12.5 mg po bid , clonidine- decrease clondiine to 0.1 mg po bid Diabetes Mellitus, type 2- good readings -Supplemental sliding scale -Levemir 10 units twice daily on ADA/cardiac diet - requesting for PB + jelly Scrotal pain- improved Per Dr. Woodruff likely from anasarca. Ultrasound noted. Hypotestosteronism -02/23 total testosterone was 13, free 0.14; s/p 100mg injection. Repeat total testosterone 451/free testosterone 14.4 03/27 Left upper and lower extremity weakness- improved -Head CT on 02/25 shows no acute changes. CT of the neck shows C6-[address] of lumbar spine shows L3-4 herniation with L3 nerve root impingement -Per NS, the disc herniation is nonsurgical. S/P course steroids Morbid obesity/debility: -PT daily to mobilize the patient more. -Slowly improving Insomnia -Continue Trazodone 100mg HS, PRN Zolpidem, HS Melatonin Constipation, chronic -laxatives/ enema as needed. Iron deficiency anemia-on iron sulfate. Left Knee Pain: possible strain, left knee x-ray unremarkable. Continue pain control. better range of motion DVT prophylaxis: Lovenox DVT prophylaxis: Lovenox Discharge Planning: awaiting placement. (1) Respiratory failure with hypoxia and hypercapnia Qualifiers: Chronicity: chronic Qualified Code(s): J96.11 - Chronic respiratory failure with hypoxia; J96.12 - Chronic respiratory failure with hypercapnia
[2018-05-16] MEDS: Insulin NovoLOG Aspart Correctional Sugar Inj SQ SCH ×4 (11:56→21:26)
[2018-05-16] MEDS: Sodium Chloride 0.65% Nasal Drops/Spray 30 ML Bottle EACH NARE SCH ×2 (11:57→21:29)
[2018-05-16] MEDS: Psyllium Husk SF 3.4 GM in 5.8 GM Packet PO SCH ×2 (11:57→21:27)
[2018-05-16] MEDS: Ferrous Sulfate Drops 15 MG/ML 50 ML Bottle PO SCH (11:57)
[2018-05-16] MEDS: Lactic Acid (Ammonium Lactate) 12% Lotion 225 GM Bottle TOPICAL SCH ×2 (11:57→21:31)
[2018-05-16] MEDS: Insulin Detemir Inj 1,000 UNIT/10 ML Vial SQ SCH ×2 (11:57→21:27)
[2018-05-16] MEDS: Calamine/Pramoxine Lotion 180 ML Bottle TOPICAL SCH ×2 (11:57→21:31)
--- NOTE | 2018-05-16 16:25 | P.PNPL ---
Subjective Interval history: 57 YO Obese male with TANA Works with PT Breathing about the same On 4LNC Had SOB, better after breathing treatment. Physical Exam Vital signs: Vital Signs 05/15/18 20:00 05/15/18 20:09 05/16/18 00:00 Temperature 98.3 F 98.6 F Pulse Rate 64 63 59 L Respiratory Rate 18 18 Blood Pressure 111/55 L 108/56 L Pulse Oximetry 97 97 98 05/16/18 04:00 05/16/18 08:00 05/16/18 08:04 Temperature 97.4 F L 98.2 F Pulse Rate 60 65 64 Respiratory Rate 18 Blood Pressure 114/60 114/53 L Pulse Oximetry 99 99 97 05/16/18 15:16 05/16/18 15:17 Temperature Pulse Rate 64 Respiratory Rate 18 Blood Pressure Pulse Oximetry 97 Intake & Output 05/15/18 05/16/18 05/16/18 18:59 06:59 18:59 Intake Total 1100 / 1100 480 / 480 Balance 1100 / 1100 480 / 480 Weight 135.2 kg Intake: Oral 1100 / 1100 480 / 480 Other: # Voids 2 # Incontinent Voids 4 Date of Last Bowel Movement 05/15/18 # Bowel Movements 2 GENERAL: Obese WM, NAD SKIN: Warm and dry. HEAD: Normocephalic. EYES: No scleral icterus. No injection or drainage. NECK: Supple, trachea midline. No JVD or lymphadenopathy. CARDIOVASCULAR: Regular rate and rhythm without murmurs, gallops, or rubs. RESPIRATORY: Breath sounds equal bilaterally. No accessory muscle use. GASTROINTESTINAL: Abdomen soft, non-tender, nondistended. MUSCULOSKELETAL: No cyanosis, or edema. BACK: Nontender without obvious deformity. No CVA tenderness. Assessment and Plan - Plan IMPRESSION: TANA COPD CHF Morbid obesity Gen Weakness/ deconditioning PLAN: Supplement , 4LNC Keep sat 88-92% Diurease Aerosol nebs CPAP 10/5 at night DW RT
[2018-05-16] MEDS: Enoxaparin Inj 40 MG/0.4 ML Syringe SQ SCH (18:13)
[2018-05-16] MEDS: traZODone 50 MG Tablet PO SCH (21:25)
[2018-05-17] MEDS: LORazepam 1 MG Tablet PO PRN ×4 (03:32→22:08)
[2018-05-17] MEDS: Nystatin 100,000 UNITS/GM Powder 15 GM Bottle TOPICAL SCH ×3 (03:34→16:54)
[2018-05-17] MEDS: Insulin NovoLOG Aspart Correctional Sugar Inj SQ SCH ×4 (08:30→22:22)
[2018-05-17] MEDS: Carvedilol 12.5 MG Tablet PO SCH ×2 (09:30→22:07)
[2018-05-17] MEDS: Ferrous Sulfate Drops 15 MG/ML 50 ML Bottle PO SCH (09:30)
[2018-05-17] MEDS: Furosemide 40 MG Tablet PO SCH ×2 (09:30→22:07)
[2018-05-17] MEDS: Senna/Docusate Sodium 8.6/50 MG Tablet PO SCH ×2 (09:30→22:08)
[2018-05-17] MEDS: Sodium Chloride 0.65% Nasal Drops/Spray 30 ML Bottle EACH NARE SCH ×2 (09:30→22:09)
[2018-05-17] MEDS: Famotidine 20 MG Tablet PO SCH ×2 (09:30→22:08)
[2018-05-17] MEDS: Psyllium Husk SF 3.4 GM in 5.8 GM Packet PO SCH ×2 (09:30→22:06)
[2018-05-17] MEDS: Gabapentin 100 MG Capsule PO SCH ×3 (09:30→18:48)
[2018-05-17] MEDS: guaiFENesin 600 MG ER Tablet PO SCH ×2 (09:30→22:08)
[2018-05-17] MEDS: Amiodarone 200 MG Tablet PO SCH ×2 (09:30→22:07)
[2018-05-17] MEDS: Lactic Acid (Ammonium Lactate) 12% Lotion 225 GM Bottle TOPICAL SCH ×2 (09:30→22:09)
[2018-05-17] MEDS: Insulin Detemir Inj 1,000 UNIT/10 ML Vial SQ SCH ×2 (09:30→22:09)
[2018-05-17] MEDS: Allopurinol 100 MG Tablet PO SCH (09:30)
--- NOTE | 2018-05-17 15:16 | P.PN ---
Subjective Interval history: Sleeping, Awakes to voice. No shortness of breath at rest, occasional cough, no sputum. Wants to eat. No acute changes overnight. No fever Physical Exam Vital signs: Vital Signs 05/16/18 15:16 05/16/18 15:17 05/16/18 18:00 Temperature 98.5 F Pulse Rate 64 60 Respiratory Rate 18 20 Blood Pressure 122/64 Pulse Oximetry 97 98 05/16/18 19:35 05/16/18 20:00 05/16/18 21:00 Temperature 98.1 F Pulse Rate 60 69 Respiratory Rate 20 18 Blood Pressure 122/57 L Pulse Oximetry 96 96 05/16/18 22:10 05/17/18 00:00 05/17/18 04:00 Temperature 98.2 F 98.2 F Pulse Rate 69 57 L 59 L Respiratory Rate 22 18 18 Blood Pressure 110/56 L 107/61 Pulse Oximetry 97 99 05/17/18 08:00 05/17/18 09:11 05/17/18 12:00 Temperature 98.3 F 98.4 F Pulse Rate 64 60 65 Respiratory Rate 18 15 18 Blood Pressure 117/62 128/60 Pulse Oximetry 98 98 Intake & Output 05/16/18 05/17/18 05/17/18 18:59 06:59 18:59 Intake Total 520 / 520 480 / 480 Balance 520 / 520 480 / 480 Weight 136 kg Intake: Oral 520 / 520 480 / 480 Other: # Voids 4 7 # Bowel Movements 2 0 Narrative: GENERAL: Obese male, appears older than stated age HEAD: Atraumatic. Normocephalic. EYES: Right eye missing. No scleral icterus. No injection or drainage. ENT: No nasal bleeding or discharge. Mucous membranes pink and moist. NECK: Trachea midline. No JVD. CARDIOVASCULAR: Regular rate and rhythm. RESPIRATORY: Diminished at bases, no productive cough. GASTROINTESTINAL: Abdomen soft, non-tender, nondistended. Hepatic and splenic margins not palpable. MUSCULOSKELETAL: Extremities without clubbing, cyanosis. Bilateral lower extremities with trace pretibial edema. No obvious deformities. NEUROLOGICAL: Awake, alert oriented 3. No focal deficits. PSYCHIATRIC: Appropriate mood and affect; insight and judgment normal. Results - Labs CBC & Chem 7: 04/26/18 15:30 04/26/18 15:30 Laboratory Results - last 24 hr 08/05/16/18 05/17/18 18:14 21:22 13:14 POC Glucose 167 H 217 H 154 H - Procedures 04/30- EGD with dilatation 05/02- colonoscopy- small rectal ulcer, internal and external hemorrhoids Assessment and Plan - Assessment (1) Respiratory failure with hypoxia and hypercapnia Code(s): J96.91 - Respiratory failure, unspecified with hypoxia; J96.92 - Respiratory failure, unspecified with hypercapnia Status: Acute (2) Acute kidney injury superimposed on CKD Code(s): N17.9 - Acute kidney failure, unspecified; N18.9 - Chronic kidney disease, unspecified Status: Acute (3) Acute metabolic encephalopathy Code(s): G93.41 - Metabolic encephalopathy Status: Resolved (4) Altered mental status Code(s): R41.82 - Altered mental status, unspecified Status: Resolved (5) Obesity Code(s): E66.9 - Obesity, unspecified Status: Chronic - Plan Dysphagia with GERD symptoms S/P EGD with dilatation- 04/30 S/P colonoscopy 05/02- poor prep- some rectal ulcer/ hemorrhoids - regular consistency diet Acute on chronic hypercapnic respiratory insufficiency, on home oxygen. PMH COPD , Obstructive sleep apnea. Does not tolerate CPAP mask due to the noise. Status post treatment of MRSA pneumonia -Pulmonology following, CPAP as needed, DuoNebs CHF, not in exacerbation, CAD s/p CABG. echo from September showed EF 55-60% -On ASA, Amiodarone 200mg BID, Coreg 12.5mg BID, Clonidine 0.1mg Q8, Plavix 75mg daily, Lasix 40 mg twice daily Hypertension -Continue carvedilol 12.5 mg po bid , clonidine- decrease clonidine to 0.1 mg po bid Diabetes Mellitus, type 2- good readings -Supplemental sliding scale -Levemir 10 units twice daily on ADA/cardiac diet Scrotal pain- improved -Per Dr. Woodruff likely from anasarca. Ultrasound noted. Hypotestosteronism -02/23 total testosterone was 13, free 0.14; s/p 100mg injection. Repeat total testosterone 451/free testosterone 14.4 7/ Left upper and lower extremity weakness- improved -Head CT on 02/25 shows no acute changes. CT of the neck shows C6-[address] of lumbar spine shows L3-4 herniation with L3 nerve root impingement -Per NS, the disc herniation is nonsurgical. S/P course steroids Morbid obesity/debility: -PT daily to mobilize the patient more. -Slowly improving Insomnia -Continue Trazodone 100mg HS, PRN Zolpidem, HS Melatonin Constipation, chronic -laxatives/ enema as needed. Iron deficiency anemia-on iron sulfate. -CBC stable. Left Knee Pain: possible strain, left knee x-ray unremarkable. -Continue pain control. better range of motion -continue PT DVT prophylaxis: Lovenox DC planning in progress, difficult placement. Plan of care d/w pt and RN (1) Respiratory failure with hypoxia and hypercapnia Qualifiers: Chronicity: chronic Qualified Code(s): J96.11 - Chronic respiratory failure with hypoxia; J96.12 - Chronic respiratory failure with hypercapnia
[2018-05-17] MEDS: Calamine/Pramoxine Lotion 180 ML Bottle TOPICAL SCH ×2 (16:47→22:09)
[2018-05-17] MEDS: Methylnaltrexone Inj 12 MG/0.6 ML Vial SQ SCH (16:54)
--- NOTE | 2018-05-17 18:16 | P.PNPL ---
Subjective Interval history: 57 YO Obese male with TANA Works with PT Breathing about the same On 4LNC Did't get CPAP machine Physical Exam Vital signs: Vital Signs 05/16/18 19:35 05/16/18 20:00 05/16/18 21:00 Temperature 98.1 F Pulse Rate 60 69 Respiratory Rate 20 18 Blood Pressure 122/57 L Pulse Oximetry 96 96 05/16/18 22:10 05/17/18 00:00 05/17/18 04:00 Temperature 98.2 F 98.2 F Pulse Rate 69 57 L 59 L Respiratory Rate 22 18 18 Blood Pressure 110/56 L 107/61 Pulse Oximetry 97 99 05/17/18 08:00 05/17/18 09:11 05/17/18 12:00 Temperature 98.3 F 98.4 F Pulse Rate 64 60 65 Respiratory Rate 18 15 18 Blood Pressure 117/62 128/60 Pulse Oximetry 98 98 Intake & Output 05/16/18 05/17/18 05/17/18 18:59 06:59 18:59 Intake Total 520 / 520 480 / 480 Balance 520 / 520 480 / 480 Weight 136 kg Intake: Oral 520 / 520 480 / 480 Other: # Voids 4 7 # Bowel Movements 2 0 GENERAL: Obese WM, NAD SKIN: Warm and dry. HEAD: Normocephalic. EYES: No scleral icterus. No injection or drainage. NECK: Supple, trachea midline. No JVD or lymphadenopathy. CARDIOVASCULAR: Regular rate and rhythm without murmurs, gallops, or rubs. RESPIRATORY: Breath sounds equal bilaterally. No accessory muscle use. GASTROINTESTINAL: Abdomen soft, non-tender, nondistended. MUSCULOSKELETAL: No cyanosis, or edema. BACK: Nontender without obvious deformity. No CVA tenderness. Assessment and Plan - Plan IMPRESSION: TANA COPD CHF Morbid obesity Gen Weakness/ deconditioning PLAN: Supplement 02, 4LNC Keep sat 88-92% Diurease Aerosol nebs CPAP 10/5 at night DW pt and his brother at [facility].
[2018-05-17] MEDS: Enoxaparin Inj 40 MG/0.4 ML Syringe SQ SCH (18:49)
[2018-05-17] MEDS: traZODone 50 MG Tablet PO SCH (22:07)
[2018-05-18] MEDS: LORazepam 1 MG Tablet PO PRN ×4 (05:26→23:58)
[2018-05-18] MEDS: Nystatin 100,000 UNITS/GM Powder 15 GM Bottle TOPICAL SCH ×4 (05:27→23:59)
[2018-05-18] MEDS: guaiFENesin 600 MG ER Tablet PO SCH ×2 (08:40→22:36)
[2018-05-18] MEDS: Amiodarone 200 MG Tablet PO SCH ×2 (08:41→22:36)
[2018-05-18] MEDS: Furosemide 40 MG Tablet PO SCH ×2 (08:41→22:37)
[2018-05-18] MEDS: Famotidine 20 MG Tablet PO SCH ×2 (08:41→22:37)
[2018-05-18] MEDS: Psyllium Husk SF 3.4 GM in 5.8 GM Packet PO SCH ×2 (08:41→22:39)
[2018-05-18] MEDS: Carvedilol 12.5 MG Tablet PO SCH ×2 (08:41→22:36)
[2018-05-18] MEDS: Gabapentin 100 MG Capsule PO SCH ×3 (08:41→17:39)
[2018-05-18] MEDS: Allopurinol 100 MG Tablet PO SCH (08:41)
[2018-05-18] MEDS: Senna/Docusate Sodium 8.6/50 MG Tablet PO SCH ×2 (08:41→22:48)
[2018-05-18] MEDS: Ferrous Sulfate Drops 15 MG/ML 50 ML Bottle PO SCH (08:42)
[2018-05-18] MEDS: Insulin NovoLOG Aspart Correctional Sugar Inj SQ SCH ×4 (08:50→22:37)
[2018-05-18] MEDS: Methylnaltrexone Inj 12 MG/0.6 ML Vial SQ SCH (08:50)
[2018-05-18] MEDS: Sodium Chloride 0.65% Nasal Drops/Spray 30 ML Bottle EACH NARE SCH ×2 (08:50→22:39)
[2018-05-18] MEDS: Insulin Detemir Inj 1,000 UNIT/10 ML Vial SQ SCH ×2 (08:50→22:39)
[2018-05-18] MEDS: Lactic Acid (Ammonium Lactate) 12% Lotion 225 GM Bottle TOPICAL SCH ×2 (08:51→22:39)
[2018-05-18] MEDS: Calamine/Pramoxine Lotion 180 ML Bottle TOPICAL SCH ×2 (08:52→22:39)
--- NOTE | 2018-05-18 13:53 | P.PN ---
Subjective Interval history: some sob with activity, occ. cough, no sputum. Good appetite. No fever, no acute changes overnight Physical Exam Vital signs: Vital Signs 05/17/18 16:00 05/17/18 20:00 05/17/18 20:48 Temperature 98.2 F 98.1 F Pulse Rate 63 55 L Respiratory Rate 18 18 Blood Pressure 121/67 133/72 Pulse Oximetry 98 96 94 L 05/17/18 23:53 05/18/18 05:00 05/18/18 08:00 Temperature 97.8 F 97.7 F 98.2 F Pulse Rate 62 60 60 Respiratory Rate 18 18 20 Blood Pressure 104/60 114/60 Pulse Oximetry 97 99 98 05/18/18 11:46 Temperature Pulse Rate 60 Respiratory Rate 20 Blood Pressure Pulse Oximetry Intake & Output 05/17/18 05/18/18 05/18/18 18:59 06:59 18:59 Intake Total 960 / 960 720 / 720 Balance 960 / 960 720 / 720 Weight 137 kg Intake: Oral 960 / 960 720 / 720 Other: # Voids 7 # Incontinent Voids 5 # Bowel Movements 0 # Incontinent Bowel Movements 3 Narrative: GENERAL: Obese male, appears older than stated age HEAD: Atraumatic. Normocephalic. EYES: Right eye missing. No scleral icterus. No injection or drainage. ENT: No nasal bleeding or discharge. Mucous membranes pink and moist. NECK: Trachea midline. No JVD. CARDIOVASCULAR: Regular rate and rhythm. RESPIRATORY: Diminished at bases, no productive cough. GASTROINTESTINAL: Abdomen soft, non-tender, nondistended. Hepatic and splenic margins not palpable. MUSCULOSKELETAL: Extremities without clubbing, cyanosis. Bilateral lower extremities with trace pretibial edema. No obvious deformities. NEUROLOGICAL: Awake, alert oriented 3. No focal deficits. PSYCHIATRIC: Appropriate mood and affect; insight and judgment normal. Results - Labs CBC & Chem 7: 04/26/18 15:30 04/26/18 15:30 Laboratory Results - last 24 hr 05/17/18 05/17/18 05/18/18 18:21 22:06 08:41 POC Glucose 175 H 117 H 104 - Procedures 04/30- EGD with dilatation 05/02- colonoscopy- small rectal ulcer, internal and external hemorrhoids Assessment and Plan - Assessment (1) Respiratory failure with hypoxia and hypercapnia Code(s): J96.91 - Respiratory failure, unspecified with hypoxia; J96.92 - Respiratory failure, unspecified with hypercapnia Status: Acute (2) Acute kidney injury superimposed on CKD Code(s): N17.9 - Acute kidney failure, unspecified; N18.9 - Chronic kidney disease, unspecified Status: Acute (3) Acute metabolic encephalopathy Code(s): G93.41 - Metabolic encephalopathy Status: Resolved (4) Altered mental status Code(s): R41.82 - Altered mental status, unspecified Status: Resolved (5) Obesity Code(s): E66.9 - Obesity, unspecified Status: Chronic - Plan Dysphagia with GERD symptoms S/P EGD with dilatation- 04/30 S/P colonoscopy 05/02- poor prep- some rectal ulcer/ hemorrhoids - regular consistency diet Acute on chronic hypercapnic respiratory insufficiency, on home oxygen. PMH COPD , Obstructive sleep apnea. Does not tolerate CPAP mask due to the noise. Status post treatment of MRSA pneumonia -Pulmonology following, CPAP as needed, DuoNebs CHF, not in exacerbation, CAD s/p CABG. echo from September showed EF 55-60% -On ASA, Amiodarone 200mg BID, Coreg 12.5mg BID, Clonidine 0.1mg Q8, Plavix 75mg daily, Lasix 40 mg twice daily Hypertension -Continue carvedilol 12.5 mg po bid , clonidine- decrease clonidine to 0.1 mg po bid Diabetes Mellitus, type 2- good readings -Supplemental sliding scale -Levemir 10 units twice daily on ADA/cardiac diet Scrotal pain- improved -Per Dr. Woodruff likely from anasarca. Ultrasound noted. Hypotestosteronism -02/23 total testosterone was 13, free 0.14; s/p 100mg injection. Repeat total testosterone 451/free testosterone 14.4 03/27 Left upper and lower extremity weakness- improved -Head CT on 02/25 shows no acute changes. CT of the neck shows C6-[address] of lumbar spine shows L3-4 herniation with L3 nerve root impingement -Per NS, the disc herniation is nonsurgical. S/P course steroids Morbid obesity/debility: -PT daily to mobilize the patient more. -Slowly improving Insomnia -Continue Trazodone 100mg HS, PRN Zolpidem, HS Melatonin Constipation, chronic -laxatives/ enema as needed. Iron deficiency anemia-on iron sulfate. -CBC stable. Left Knee Pain: possible strain, left knee x-ray unremarkable. -Continue pain control. better range of motion -continue PT DVT prophylaxis: Lovenox DC planning in progress, difficult placement. Plan of care d/w pt and RN (1) Respiratory failure with hypoxia and hypercapnia Qualifiers: Chronicity: chronic Qualified Code(s): J96.11 - Chronic respiratory failure with hypoxia; J96.12 - Chronic respiratory failure with hypercapnia
[2018-05-18] MEDS: Enoxaparin Inj 40 MG/0.4 ML Syringe SQ SCH (17:40)
--- NOTE | 2018-05-18 17:51 | P.PNPL ---
Subjective Interval history: 57 YO Obese male with TANA Works with PT Breathing about the same On 4LNC No new complaint Physical Exam Vital signs: Vital Signs 05/17/18 20:00 05/17/18 20:48 05/17/18 23:53 Temperature 98.1 F 97.8 F Pulse Rate 55 L 62 Respiratory Rate 18 18 Blood Pressure 133/72 104/60 Pulse Oximetry 96 94 L 97 05/18/18 05:00 05/18/18 08:00 05/18/18 11:46 Temperature 97.7 F 98.2 F Pulse Rate 60 60 60 Respiratory Rate 18 20 20 Blood Pressure 114/60 Pulse Oximetry 99 98 05/18/18 12:00 05/18/18 17:40 Temperature 98.3 F Pulse Rate 60 60 Respiratory Rate 20 20 Blood Pressure 106/65 Pulse Oximetry 97 97 Intake & Output 05/17/18 05/18/18 05/18/18 18:59 06:59 18:59 Intake Total 960 / 960 720 / 720 Balance 960 / 960 720 / 720 Weight 137 kg Intake: Oral 960 / 960 720 / 720 Other: # Voids 7 # Incontinent Voids 5 # Bowel Movements 0 # Incontinent Bowel Movements 3 GENERAL: Obese WM, NAD SKIN: Warm and dry. HEAD: Normocephalic. EYES: No scleral icterus. No injection or drainage. NECK: Supple, trachea midline. No JVD or lymphadenopathy. CARDIOVASCULAR: Regular rate and rhythm without murmurs, gallops, or rubs. RESPIRATORY: Breath sounds equal bilaterally. No accessory muscle use. GASTROINTESTINAL: Abdomen soft, non-tender, nondistended. MUSCULOSKELETAL: No cyanosis, or edema. BACK: Nontender without obvious deformity. No CVA tenderness. Assessment and Plan - Plan IMPRESSION: TANA COPD CHF Morbid obesity Gen Weakness/ deconditioning PLAN: Supplement , 4LNC Keep sat 88-92% Diurease Aerosol nebs CPAP 10/5 at night Available prn over weekend.
[2018-05-18] MEDS: traZODone 50 MG Tablet PO SCH (22:36)
[2018-05-18] MEDS: Zolpidem Tartrate 5 MG Tablet PO PRN (22:37)
[2018-05-19] MEDS: Nystatin 100,000 UNITS/GM Powder 15 GM Bottle TOPICAL SCH ×3 (05:05→23:48)
[2018-05-19] MEDS: LORazepam 1 MG Tablet PO PRN ×3 (06:19→18:43)
[2018-05-19] MEDS: Gabapentin 100 MG Capsule PO SCH ×3 (08:50→18:10)
[2018-05-19] MEDS: Senna/Docusate Sodium 8.6/50 MG Tablet PO SCH ×2 (08:50→23:47)
[2018-05-19] MEDS: Amiodarone 200 MG Tablet PO SCH ×2 (08:50→23:46)
[2018-05-19] MEDS: Famotidine 20 MG Tablet PO SCH ×2 (08:50→23:47)
[2018-05-19] MEDS: guaiFENesin 600 MG ER Tablet PO SCH ×2 (08:50→23:47)
[2018-05-19] MEDS: Furosemide 40 MG Tablet PO SCH ×2 (08:50→23:46)
[2018-05-19] MEDS: Allopurinol 100 MG Tablet PO SCH (08:50)
[2018-05-19] MEDS: Carvedilol 12.5 MG Tablet PO SCH ×2 (08:50→23:46)
[2018-05-19] MEDS: Methylnaltrexone Inj 12 MG/0.6 ML Vial SQ SCH (08:50)
[2018-05-19] MEDS: Psyllium Husk SF 3.4 GM in 5.8 GM Packet PO SCH ×2 (08:51→23:46)
[2018-05-19] MEDS: Insulin Detemir Inj 1,000 UNIT/10 ML Vial SQ SCH ×2 (08:51→23:46)
[2018-05-19] MEDS: Ferrous Sulfate Drops 15 MG/ML 50 ML Bottle PO SCH (08:54)
[2018-05-19] MEDS: Lactic Acid (Ammonium Lactate) 12% Lotion 225 GM Bottle TOPICAL SCH ×2 (08:54→23:46)
[2018-05-19] MEDS: Insulin NovoLOG Aspart Correctional Sugar Inj SQ SCH ×4 (08:54→23:47)
[2018-05-19] MEDS: Calamine/Pramoxine Lotion 180 ML Bottle TOPICAL SCH ×2 (08:56→23:46)
[2018-05-19] MEDS: Sodium Chloride 0.65% Nasal Drops/Spray 30 ML Bottle EACH NARE SCH ×2 (08:57→23:45)
[2018-05-19] MEDS: Enoxaparin Inj 40 MG/0.4 ML Syringe SQ SCH (18:10)
[2018-05-19] MEDS: traZODone 50 MG Tablet PO SCH (23:46)
[2018-05-19] MEDS: Zolpidem Tartrate 5 MG Tablet PO PRN (23:47)
[2018-05-20] MEDS: LORazepam 1 MG Tablet PO PRN ×4 (02:30→22:32)
[2018-05-20] MEDS: Nystatin 100,000 UNITS/GM Powder 15 GM Bottle TOPICAL SCH ×3 (05:39→22:34)
[2018-05-20 06:45] LABS: Hemoglobin 9.5 gm/dL (13.0-17.0); Mean Corpuscular HGB Conc 31.6 % (32.0-36.0); Mean Corpuscular Hemoglobin 26.5 pg (27.0-34.0); Mean Corpuscular Volume 83.7 fL (80.0-100.0); Mean Platelet Volume 8.8 fL (7.0-11.0); Platelet Count 178 th/mm3 (150-450); Red Blood Count 3.59 mil/mm3 (4.50-5.90); Red Cell Distribution Width 16.9 % (11.6-17.2); White Blood Count 6.4 th/mm3 (4.0-11.0)
[2018-05-20 06:57] LABS: Calcium 8.4 mg/dL (8.5-10.1); Carbon Dioxide 36.5 meq/L (21.0-32.0); Potassium 3.7 meq/L (3.5-5.1)
[2018-05-20] MEDS: Furosemide 40 MG Tablet PO SCH ×2 (09:03→22:32)
[2018-05-20] MEDS: Insulin NovoLOG Aspart Correctional Sugar Inj SQ SCH ×4 (09:03→23:10)
[2018-05-20] MEDS: Gabapentin 100 MG Capsule PO SCH ×3 (09:03→18:44)
[2018-05-20] MEDS: Famotidine 20 MG Tablet PO SCH ×2 (09:04→22:32)
[2018-05-20] MEDS: Amiodarone 200 MG Tablet PO SCH ×2 (09:04→22:32)
[2018-05-20] MEDS: Insulin Detemir Inj 1,000 UNIT/10 ML Vial SQ SCH ×2 (09:04→22:33)
[2018-05-20] MEDS: Senna/Docusate Sodium 8.6/50 MG Tablet PO SCH ×2 (09:04→22:32)
[2018-05-20] MEDS: Carvedilol 12.5 MG Tablet PO SCH ×2 (09:04→22:32)
[2018-05-20] MEDS: Allopurinol 100 MG Tablet PO SCH (09:04)
[2018-05-20] MEDS: Psyllium Husk SF 3.4 GM in 5.8 GM Packet PO SCH ×2 (09:04→22:31)
[2018-05-20] MEDS: guaiFENesin 600 MG ER Tablet PO SCH ×2 (09:04→22:32)
[2018-05-20] MEDS: Methylnaltrexone Inj 12 MG/0.6 ML Vial SQ SCH (09:05)
[2018-05-20] MEDS: Ferrous Sulfate Drops 15 MG/ML 50 ML Bottle PO SCH (09:07)
[2018-05-20] MEDS: Lactic Acid (Ammonium Lactate) 12% Lotion 225 GM Bottle TOPICAL SCH ×2 (09:07→22:33)
[2018-05-20] MEDS: Sodium Chloride 0.65% Nasal Drops/Spray 30 ML Bottle EACH NARE SCH ×2 (09:08→22:31)
[2018-05-20] MEDS: Calamine/Pramoxine Lotion 180 ML Bottle TOPICAL SCH ×2 (09:09→22:31)
--- NOTE | 2018-05-20 10:41 | P.PN ---
Subjective Interval history: follow up for resp. distress: pt. stable on 4L/NC, some cough, minimal sputum, no cp. Eating well. No acute changes overnight Physical Exam Vital signs: Vital Signs 05/19/18 12:00 05/19/18 16:00 05/19/18 17:42 Temperature 97.7 F 98.2 F Pulse Rate 60 60 60 Respiratory Rate 20 20 20 Blood Pressure 138/74 119/66 Pulse Oximetry 97 99 05/19/18 19:41 05/19/18 20:00 05/19/18 23:30 Temperature 98.1 F 98 F Pulse Rate 60 67 59 L Respiratory Rate 20 18 20 Blood Pressure 123/59 L 113/60 Pulse Oximetry 95 96 100 05/20/18 04:00 05/20/18 07:51 05/20/18 08:00 Temperature 98.1 F 98.2 F Pulse Rate 62 62 65 Respiratory Rate 18 18 16 Blood Pressure 113/62 158/65 H Pulse Oximetry 99 99 95 Intake & Output 05/19/18 05/20/18 05/20/18 18:59 06:59 18:59 Weight 135.9 kg Other: # Voids 6 Date of Last Bowel Movement 05/19/18 Narrative: GENERAL: Obese male, appears older than stated age HEAD: Atraumatic. Normocephalic. EYES: Right eye missing. No scleral icterus. No injection or drainage. ENT: No nasal bleeding or discharge. Mucous membranes pink and moist. NECK: Trachea midline. No JVD. CARDIOVASCULAR: Regular rate and rhythm. RESPIRATORY: Diminished at bases, no productive cough. GASTROINTESTINAL: Abdomen soft, non-tender, nondistended. Hepatic and splenic margins not palpable. MUSCULOSKELETAL: Extremities without clubbing, cyanosis. Bilateral lower extremities with trace pretibial edema. No obvious deformities. NEUROLOGICAL: Awake, alert oriented 3. No focal deficits. PSYCHIATRIC: Appropriate mood and affect; insight and judgment normal. Results - Labs CBC & Chem 7: 05/20/18 06:02 05/20/18 06:10 Laboratory Results - last 24 hr 05/19/18 05/19/18 05/19/18 13:05 18:12 22:58 WBC RBC Hgb Hct MCV MCH MCHC RDW Plt Count MPV Sodium Potassium Chloride Carbon Dioxide Anion Gap BUN Creatinine Estimated GFR POC Glucose 162 H 177 H 133 H Random Glucose Calcium 05/20/18 05/20/18 05/20/18 06:02 06:10 09:02 WBC 6.4 RBC 3.59 L Hgb 9.5 L Hct 30.0 L MCV 83.7 MCH 26.5 L MCHC 31.6 L RDW 16.9 Plt Count 178 MPV 8.8 Sodium 140 Potassium 3.7 Chloride 96 L Carbon Dioxide 36.5 H Anion Gap 8 BUN 12 Creatinine 1.07 Estimated GFR 72 L POC Glucose 125 H Random Glucose 115 H Calcium 8.4 L - Procedures 04/30- EGD with dilatation 05/02- colonoscopy- small rectal ulcer, internal and external hemorrhoids Assessment and Plan - Assessment (1) Respiratory failure with hypoxia and hypercapnia Code(s): J96.91 - Respiratory failure, unspecified with hypoxia; J96.92 - Respiratory failure, unspecified with hypercapnia Status: Acute (2) Acute kidney injury superimposed on CKD Code(s): N17.9 - Acute kidney failure, unspecified; N18.9 - Chronic kidney disease, unspecified Status: Acute (3) Acute metabolic encephalopathy Code(s): G93.41 - Metabolic encephalopathy Status: Resolved (4) Altered mental status Code(s): R41.82 - Altered mental status, unspecified Status: Resolved (5) Obesity Code(s): E66.9 - Obesity, unspecified Status: Chronic - Plan Dysphagia with GERD symptoms S/P EGD with dilatation- 04/30 S/P colonoscopy 05/02- poor prep- some rectal ulcer/ hemorrhoids - regular consistency diet Acute on chronic hypercapnic respiratory insufficiency, on home oxygen. PMH COPD , Obstructive sleep apnea. Does not tolerate CPAP mask due to the noise. Status post treatment of MRSA pneumonia -Pulmonology following, CPAP as needed, DuoNebs CHF, not in exacerbation, CAD s/p CABG. echo from September showed EF 55-60% -On ASA, Amiodarone 200mg BID, Coreg 12.5mg BID, Clonidine 0.1mg Q8, Plavix 75mg daily, Lasix 40 mg twice daily Hypertension -Continue carvedilol 12.5 mg po bid , clonidine- decrease clonidine to 0.1 mg po bid Diabetes Mellitus, type 2- good readings -Supplemental sliding scale -Levemir 10 units twice daily on ADA/cardiac diet Scrotal pain- improved -Per Dr. Scaglia likely from anasarca. Ultrasound noted. Hypotestosteronism -02/23 total testosterone was 13, free 0.14; s/p 100mg injection. Repeat total testosterone 451/free testosterone 14.4 03/27 Left upper and lower extremity weakness- improved -Head CT on 02/25 shows no acute changes. CT of the neck shows C6-[address] of lumbar spine shows L3-4 herniation with L3 nerve root impingement -Per NS, the disc herniation is nonsurgical. S/P course steroids Morbid obesity/debility: -PT daily to mobilize the patient more. -Slowly improving Insomnia -Continue Trazodone 100mg HS, PRN Zolpidem, HS Melatonin Constipation, chronic -laxatives/ enema as needed. Iron deficiency anemia-on iron sulfate. -CBC stable. Left Knee Pain: possible strain, left knee x-ray unremarkable. -Continue pain control. better range of motion -continue PT DVT prophylaxis: Lovenox Labs reviewed, stable DC planning in progress, difficult placement. Plan of care d/w pt and RN (1) Respiratory failure with hypoxia and hypercapnia Qualifiers: Chronicity: chronic Qualified Code(s): J96.11 - Chronic respiratory failure with hypoxia; J96.12 - Chronic respiratory failure with hypercapnia
[2018-05-20] MEDS: Enoxaparin Inj 40 MG/0.4 ML Syringe SQ SCH (18:44)
[2018-05-20] MEDS: Zolpidem Tartrate 5 MG Tablet PO PRN (22:33)
[2018-05-20] MEDS: traZODone 50 MG Tablet PO SCH (22:33)
[2018-05-21] MEDS: LORazepam 1 MG Tablet PO PRN ×4 (04:33→23:44)
[2018-05-21] MEDS: Nystatin 100,000 UNITS/GM Powder 15 GM Bottle TOPICAL SCH ×3 (06:36→23:15)
[2018-05-21] MEDS: Insulin NovoLOG Aspart Correctional Sugar Inj SQ SCH ×4 (09:35→22:48)
[2018-05-21] MEDS: Allopurinol 100 MG Tablet PO SCH (09:36)
[2018-05-21] MEDS: Carvedilol 12.5 MG Tablet PO SCH ×2 (09:36→22:48)
[2018-05-21] MEDS: Sodium Chloride 0.65% Nasal Drops/Spray 30 ML Bottle EACH NARE SCH ×2 (09:36→23:13)
[2018-05-21] MEDS: Calamine/Pramoxine Lotion 180 ML Bottle TOPICAL SCH ×2 (09:36→23:13)
[2018-05-21] MEDS: guaiFENesin 600 MG ER Tablet PO SCH ×2 (09:36→23:14)
[2018-05-21] MEDS: Gabapentin 100 MG Capsule PO SCH ×3 (09:37→17:54)
[2018-05-21] MEDS: Psyllium Husk SF 3.4 GM in 5.8 GM Packet PO SCH ×2 (09:37→22:48)
[2018-05-21] MEDS: Famotidine 20 MG Tablet PO SCH ×2 (09:37→23:14)
[2018-05-21] MEDS: Methylnaltrexone Inj 12 MG/0.6 ML Vial SQ SCH (09:37)
[2018-05-21] MEDS: Amiodarone 200 MG Tablet PO SCH ×2 (09:37→23:14)
[2018-05-21] MEDS: Senna/Docusate Sodium 8.6/50 MG Tablet PO SCH ×2 (09:37→23:15)
[2018-05-21] MEDS: Insulin Detemir Inj 1,000 UNIT/10 ML Vial SQ SCH ×2 (09:38→23:14)
[2018-05-21] MEDS: Lactic Acid (Ammonium Lactate) 12% Lotion 225 GM Bottle TOPICAL SCH ×2 (09:38→23:14)
[2018-05-21] MEDS: Furosemide 40 MG Tablet PO SCH ×2 (09:38→23:14)
[2018-05-21] MEDS: Ferrous Sulfate Drops 15 MG/ML 50 ML Bottle PO SCH (09:38)
--- NOTE | 2018-05-21 10:51 | P.PN ---
Subjective Interval history: ollow up for resp. distress: pt. stable on 4L/NC, no distress overnight. Eating well. Physical Exam Vital signs: Vital Signs 05/20/18 12:00 05/20/18 16:00 05/20/18 20:00 Temperature 98.3 F 99.2 F 98 F Pulse Rate 64 60 61 Respiratory Rate 16 16 18 Blood Pressure 123/72 119/86 119/67 Pulse Oximetry 95 96 99 05/20/18 20:05 05/20/18 20:06 05/21/18 00:00 Temperature 98.1 F Pulse Rate 62 60 Respiratory Rate 18 18 Blood Pressure 113/55 L Pulse Oximetry 96 96 98 05/21/18 01:48 05/21/18 04:00 05/21/18 08:19 Temperature 97.3 F L Pulse Rate 64 53 L 62 Respiratory Rate 16 18 18 Blood Pressure 109/55 L Pulse Oximetry 96 Intake & Output 05/20/18 05/21/18 05/21/18 18:59 06:59 18:59 Intake Total 720 / 720 890 / 890 Balance 720 / 720 890 / 890 Weight 137.3 kg Intake: Oral 720 / 720 890 / 890 Other: # Voids 4 4 Date of Last Bowel Movement 05/19/18 05/21/18 # Bowel Movements 1 2 Narrative: GENERAL: Obese male, appears older than stated age HEAD: Atraumatic. Normocephalic. EYES: Right eye missing. No scleral icterus. No injection or drainage. ENT: No nasal bleeding or discharge. Mucous membranes pink and moist. NECK: Trachea midline. No JVD. CARDIOVASCULAR: Regular rate and rhythm. RESPIRATORY: coarse upper lobes, cleared with coughing GASTROINTESTINAL: Abdomen soft, non-tender, nondistended. Hepatic and splenic margins not palpable. MUSCULOSKELETAL: Extremities without clubbing, cyanosis. Bilateral lower extremities with trace pretibial edema. No obvious deformities. NEUROLOGICAL: Awake, alert oriented 3. No focal deficits. PSYCHIATRIC: Appropriate mood and affect; insight and judgment normal. Results - Labs CBC & Chem 7: 05/20/18 06:02 05/20/18 06:10 Laboratory Results - last 24 hr 05/20/18 05/20/18 05/20/18 13:48 18:46 22:51 POC Glucose 172 H 178 H 156 H 05/21/18 05/21/18 01:29 07:45 POC Glucose 151 H 123 H - Procedures 04/30- EGD with dilatation 05/02- colonoscopy- small rectal ulcer, internal and external hemorrhoids Assessment and Plan - Assessment (1) Respiratory failure with hypoxia and hypercapnia Code(s): J96.91 - Respiratory failure, unspecified with hypoxia; J96.92 - Respiratory failure, unspecified with hypercapnia Status: Acute (2) Acute kidney injury superimposed on CKD Code(s): N17.9 - Acute kidney failure, unspecified; N18.9 - Chronic kidney disease, unspecified Status: Acute (3) Acute metabolic encephalopathy Code(s): G93.41 - Metabolic encephalopathy Status: Resolved (4) Altered mental status Code(s): R41.82 - Altered mental status, unspecified Status: Resolved (5) Obesity Code(s): E66.9 - Obesity, unspecified Status: Chronic - Plan Dysphagia with GERD symptoms S/P EGD with dilatation- 04/30 S/P colonoscopy 05/02- poor prep- some rectal ulcer/ hemorrhoids - regular consistency diet Acute on chronic hypercapnic respiratory insufficiency, on home oxygen. PMH COPD , Obstructive sleep apnea. Does not tolerate CPAP mask due to the noise. Status post treatment of MRSA pneumonia -Pulmonology following, CPAP as needed, DuoNebs CHF, not in exacerbation, CAD s/p CABG. echo from September showed EF 55-60% -On ASA, Amiodarone 200mg BID, Coreg 12.5mg BID, Clonidine 0.1mg Q8, Plavix 75mg daily, Lasix 40 mg twice daily Hypertension -Continue carvedilol 12.5 mg po bid , clonidine- decrease clonidine to 0.1 mg po bid Diabetes Mellitus, type 2- good readings -Supplemental sliding scale -Levemir 10 units twice daily on ADA/cardiac diet Scrotal pain- improved -Per Dr. Mendoza likely from anasarca. Ultrasound noted. Hypotestosteronism -02/23 total testosterone was 13, free 0.14; s/p 100mg injection. Repeat total testosterone 451/free testosterone 14.4 03/27 Left upper and lower extremity weakness- improved -Head CT on 02/25 shows no acute changes. CT of the neck shows C6-[address] of lumbar spine shows L3-4 herniation with L3 nerve root impingement -Per NS, the disc herniation is nonsurgical. S/P course steroids Morbid obesity/debility: -PT daily to mobilize the patient more. -Slowly improving Insomnia -Continue Trazodone 100mg HS, PRN Zolpidem, HS Melatonin Constipation, chronic -laxatives/ enema as needed. Iron deficiency anemia-on iron sulfate. -CBC stable Left Knee Pain: possible strain, left knee x-ray unremarkable. -Continue pain control. better range of motion -continue PT DVT prophylaxis: Lovenox DC planning in progress, difficult placement. Plan of care d/w pt and RN (1) Respiratory failure with hypoxia and hypercapnia Qualifiers: Chronicity: chronic Qualified Code(s): J96.11 - Chronic respiratory failure with hypoxia; J96.12 - Chronic respiratory failure with hypercapnia
--- NOTE | 2018-05-21 17:50 | P.PNPL ---
Subjective Interval history: 57 YO Obese male with TANA Works with PT Breathing about the same On 4LNC Physical Exam Vital signs: Vital Signs 05/20/18 20:00 05/20/18 20:05 05/20/18 20:06 Temperature 98 F Pulse Rate 61 62 Respiratory Rate 18 18 Blood Pressure 119/67 Pulse Oximetry 99 96 96 05/21/18 00:00 05/21/18 01:48 05/21/18 04:00 Temperature 98.1 F 97.3 F L Pulse Rate 60 64 53 L Respiratory Rate 18 16 18 Blood Pressure 113/55 L 109/55 L Pulse Oximetry 98 96 05/21/18 08:00 05/21/18 08:19 05/21/18 11:54 Temperature 98.4 F Pulse Rate 71 62 68 Respiratory Rate 20 18 16 Blood Pressure 130/79 Pulse Oximetry 99 05/21/18 12:00 Temperature 98.4 F Pulse Rate 58 L Respiratory Rate 20 Blood Pressure 115/60 Pulse Oximetry 95 Intake & Output 05/20/18 05/21/18 05/21/18 18:59 06:59 18:59 Intake Total 720 / 720 890 / 890 Balance 720 / 720 890 / 890 Weight 137.3 kg Intake: Oral 720 / 720 890 / 890 Other: # Voids 4 4 Date of Last Bowel Movement 05/19/18 05/21/18 # Bowel Movements 1 2 GENERAL: WBWN WM,NAD SKIN: Warm and dry. HEAD: Normocephalic. EYES: No scleral icterus. No injection or drainage. NECK: Supple, trachea midline. No JVD or lymphadenopathy. CARDIOVASCULAR: Regular rate and rhythm without murmurs, gallops, or rubs. RESPIRATORY: Breath sounds equal bilaterally. No accessory muscle use. GASTROINTESTINAL: Abdomen soft, non-tender, nondistended. MUSCULOSKELETAL: No cyanosis, or edema. BACK: Nontender without obvious deformity. No CVA tenderness. Assessment and Plan - Plan IMPRESSION: TANA COPD CHF Morbid obesity Gen Weakness/ deconditioning PLAN: Supplement , 4LNC Keep sat 88-92% Diurease Aerosol nebs CPAP 10/5 at night
[2018-05-21] MEDS: Enoxaparin Inj 40 MG/0.4 ML Syringe SQ SCH (17:54)
[2018-05-21] MEDS: traZODone 50 MG Tablet PO SCH (23:14)
[2018-05-22] MEDS: Nystatin 100,000 UNITS/GM Powder 15 GM Bottle TOPICAL SCH ×3 (06:07→21:30)
[2018-05-22] MEDS: Senna/Docusate Sodium 8.6/50 MG Tablet PO SCH ×2 (08:49→21:27)
[2018-05-22] MEDS: Allopurinol 100 MG Tablet PO SCH (08:49)
[2018-05-22] MEDS: Methylnaltrexone Inj 12 MG/0.6 ML Vial SQ SCH (08:49)
[2018-05-22] MEDS: LORazepam 1 MG Tablet PO PRN ×2 (08:49→17:20)
[2018-05-22] MEDS: Famotidine 20 MG Tablet PO SCH ×2 (08:49→21:28)
[2018-05-22] MEDS: guaiFENesin 600 MG ER Tablet PO SCH ×2 (08:49→21:26)
[2018-05-22] MEDS: Amiodarone 200 MG Tablet PO SCH ×2 (08:49→21:28)
[2018-05-22] MEDS: Gabapentin 100 MG Capsule PO SCH ×3 (08:49→17:20)
[2018-05-22] MEDS: Lactic Acid (Ammonium Lactate) 12% Lotion 225 GM Bottle TOPICAL SCH ×2 (08:50→21:29)
[2018-05-22] MEDS: Insulin Detemir Inj 1,000 UNIT/10 ML Vial SQ SCH ×2 (08:50→21:29)
[2018-05-22] MEDS: Carvedilol 12.5 MG Tablet PO SCH ×2 (08:50→21:28)
[2018-05-22] MEDS: Sodium Chloride 0.65% Nasal Drops/Spray 30 ML Bottle EACH NARE SCH ×2 (08:50→21:29)
[2018-05-22] MEDS: Psyllium Husk SF 3.4 GM in 5.8 GM Packet PO SCH ×2 (08:50→21:25)
[2018-05-22] MEDS: Ferrous Sulfate Drops 15 MG/ML 50 ML Bottle PO SCH (08:50)
[2018-05-22] MEDS: Calamine/Pramoxine Lotion 180 ML Bottle TOPICAL SCH ×2 (08:50→21:45)
[2018-05-22] MEDS: Furosemide 40 MG Tablet PO SCH ×2 (08:50→21:27)
[2018-05-22] MEDS: Insulin NovoLOG Aspart Correctional Sugar Inj SQ SCH ×4 (08:50→21:28)
--- NOTE | 2018-05-22 15:34 | P.PNIM ---
Subjective Interval history: The patient was anxious to be placed at a rehab facility. He requested his Ativan to be increased in frequency. He had no other acute concerns. Discussed with nursing. Physical Exam Vital signs: Vital Signs 05/21/18 16:00 05/21/18 19:30 05/21/18 20:00 Temperature 98.5 F 98.0 F Pulse Rate 61 68 63 Respiratory Rate 20 18 20 Blood Pressure 122/60 100/52 L Pulse Oximetry 96 98 98 05/22/18 00:00 05/22/18 04:00 05/22/18 08:00 Temperature 97.0 F L 97.8 F 98.2 F Pulse Rate 63 69 68 Respiratory Rate 18 18 22 Blood Pressure 138/66 127/63 127/65 Pulse Oximetry 99 99 98 05/22/18 08:01 05/22/18 12:00 05/22/18 15:10 Temperature 98.4 F Pulse Rate 69 69 62 Respiratory Rate 16 22 16 Blood Pressure 127/61 Pulse Oximetry 95 97 Intake & Output 05/21/18 05/22/18 05/22/18 18:59 06:59 18:59 Intake Total 440 / 440 Balance 440 / 440 Weight 137.1 kg Intake: Oral 440 / 440 Other: # Voids 5 Date of Last Bowel Movement 05/21/18 # Bowel Movements 2 Narrative: GENERAL: Obese male, appears older than stated age HEAD: Atraumatic. Normocephalic. EYES: Right eye missing. No scleral icterus. No injection or drainage. ENT: No nasal bleeding or discharge. Mucous membranes pink and moist. NECK: Trachea midline. No JVD. CARDIOVASCULAR: Regular rate and rhythm. RESPIRATORY: CTAB. GASTROINTESTINAL: Abdomen soft, non-tender, nondistended. Hepatic and splenic margins not palpable. MUSCULOSKELETAL: Extremities without clubbing, cyanosis. Bilateral lower extremities with trace pretibial edema. No obvious deformities. NEUROLOGICAL: Awake, alert oriented 3. No focal deficits. Results - Labs CBC & Chem 7: 05/20/18 06:02 05/20/18 06:10 Laboratory Results - last 24 hr 05/21/18 05/21/18 05/22/18 17:13 20:47 07:42 POC Glucose 165 H 105 131 H 05/22/18 12:19 POC Glucose 188 H - Procedures 04/30- EGD with dilatation 05/02- colonoscopy- small rectal ulcer, internal and external hemorrhoids Assessment and Plan - Assessment (1) Respiratory failure with hypoxia and hypercapnia Code(s): J96.91 - Respiratory failure, unspecified with hypoxia; J96.92 - Respiratory failure, unspecified with hypercapnia Status: Acute (2) Acute kidney injury superimposed on CKD Code(s): N17.9 - Acute kidney failure, unspecified; N18.9 - Chronic kidney disease, unspecified Status: Acute (3) Acute metabolic encephalopathy Code(s): G93.41 - Metabolic encephalopathy Status: Resolved (4) Altered mental status Code(s): R41.82 - Altered mental status, unspecified Status: Resolved (5) Obesity Code(s): E66.9 - Obesity, unspecified Status: Chronic - Plan Dysphagia with GERD symptoms S/P EGD with dilatation- 04/30 S/P colonoscopy 05/02- poor prep- some rectal ulcer/ hemorrhoids - regular consistency diet Acute on chronic hypercapnic respiratory insufficiency, on home oxygen. PMH COPD , Obstructive sleep apnea. Does not tolerate CPAP mask due to the noise. Status post treatment of MRSA pneumonia -Pulmonology following, CPAP as needed, DuoNebs CHF, not in exacerbation, CAD s/p CABG. echo from September showed EF 55-60% -On ASA, Amiodarone 200mg BID, Coreg 12.5mg BID, Clonidine 0.1mg Q8, Plavix 75mg daily, Lasix 40 mg twice daily Hypertension -Continue carvedilol 12.5 mg po bid , clonidine- decrease clonidine to 0.1 mg po bid Diabetes Mellitus, type 2 Well controlled. -Supplemental sliding scale -Levemir 10 units twice daily on ADA/cardiac diet Scrotal pain- improved -Per Dr. Mendoza likely from anasarca. Ultrasound noted. Hypotestosteronism -02/23 total testosterone was 13, free 0.14; s/p 100mg injection. Repeat total testosterone 451/free testosterone 14.4 7 Left upper and lower extremity weakness- improved -Head CT on 02/25 shows no acute changes. CT of the neck shows C6-[address] of lumbar spine shows L3-4 herniation with L3 nerve root impingement -Per NS, the disc herniation is nonsurgical. S/p course steroids Morbid obesity/debility: -PT and OT daily to mobilize the patient more. -Slowly improving Insomnia -Continue Trazodone 100mg HS, Melatonin HS. D/c zolpidem. Constipation, chronic -laxatives/ enema as needed. Iron deficiency anemia-on iron sulfate. -CBC stable Left Knee Pain: possible strain, left knee x-ray unremarkable. -Continue pain control. better range of motion -continue PT DVT prophylaxis: Lovenox Discharge Planning: D/c when placement found (1) Respiratory failure with hypoxia and hypercapnia Qualifiers: Chronicity: chronic Qualified Code(s): J96.11 - Chronic respiratory failure with hypoxia; J96.12 - Chronic respiratory failure with hypercapnia
[2018-05-22] MEDS: Enoxaparin Inj 40 MG/0.4 ML Syringe SQ SCH (18:37)
--- NOTE | 2018-05-22 19:19 | P.PNPL ---
Subjective Interval history: 57 YO Obese male with TANA Works with PT Breathing about the same On 4LNC Did't use CPAP Physical Exam Vital signs: Vital Signs 05/21/18 19:30 05/21/18 20:00 05/22/18 00:00 Temperature 98.0 F 97.0 F L Pulse Rate 68 63 63 Respiratory Rate 18 20 18 Blood Pressure 100/52 L 138/66 Pulse Oximetry 98 98 99 05/22/18 04:00 05/22/18 08:00 05/22/18 08:01 Temperature 97.8 F 98.2 F Pulse Rate 69 68 69 Respiratory Rate 18 22 16 Blood Pressure 127/63 127/65 Pulse Oximetry 99 98 95 05/22/18 12:00 05/22/18 15:10 05/22/18 16:00 Temperature 98.4 F 98.5 F Pulse Rate 69 62 60 Respiratory Rate 22 16 20 Blood Pressure 127/61 124/58 L Pulse Oximetry 97 98 Intake & Output 05/22/18 05/22/18 05/23/18 06:59 18:59 06:59 Intake Total 520 / 520 Balance 520 / 520 Weight 137.1 kg Intake: Oral 520 / 520 Other: # Voids 5 Date of Last Bowel Movement 05/21/18 # Bowel Movements 2 GENERAL: Obese WM, NAD SKIN: Warm and dry. HEAD: Normocephalic. EYES: No scleral icterus. No injection or drainage. NECK: Supple, trachea midline. No JVD or lymphadenopathy. CARDIOVASCULAR: Regular rate and rhythm without murmurs, gallops, or rubs. RESPIRATORY: Breath sounds equal bilaterally. No accessory muscle use. GASTROINTESTINAL: Abdomen soft, non-tender, nondistended. MUSCULOSKELETAL: No cyanosis, or edema. BACK: Nontender without obvious deformity. No CVA tenderness. Assessment and Plan - Plan IMPRESSION: TANA COPD CHF Morbid obesity Gen Weakness/ deconditioning PLAN: Supplement , 4LNC Keep sat 88-92% Diurease Aerosol nebs CPAP 10/5 at night DW RN at BS to make sure pt uses CPAP
[2018-05-22] MEDS: traZODone 50 MG Tablet PO SCH (21:26)
[2018-05-22] MEDS: Melatonin 5 MG Tablet PO PRN (21:45)
[2018-05-23] MEDS: LORazepam 1 MG Tablet PO PRN ×4 (00:23→21:35)
[2018-05-23] MEDS: Nystatin 100,000 UNITS/GM Powder 15 GM Bottle TOPICAL SCH ×3 (05:04→21:42)
[2018-05-23] MEDS: Insulin NovoLOG Aspart Correctional Sugar Inj SQ SCH ×4 (08:52→21:41)
[2018-05-23] MEDS: Carvedilol 12.5 MG Tablet PO SCH ×2 (08:53→21:37)
[2018-05-23] MEDS: Amiodarone 200 MG Tablet PO SCH ×2 (08:53→21:35)
[2018-05-23] MEDS: Allopurinol 100 MG Tablet PO SCH (08:53)
[2018-05-23] MEDS: Famotidine 20 MG Tablet PO SCH ×2 (08:53→21:35)
[2018-05-23] MEDS: Furosemide 40 MG Tablet PO SCH ×2 (08:54→21:35)
[2018-05-23] MEDS: Methylnaltrexone Inj 12 MG/0.6 ML Vial SQ SCH (08:54)
[2018-05-23] MEDS: guaiFENesin 600 MG ER Tablet PO SCH ×2 (08:54→21:35)
[2018-05-23] MEDS: Psyllium Husk SF 3.4 GM in 5.8 GM Packet PO SCH (08:54)
[2018-05-23] MEDS: Senna/Docusate Sodium 8.6/50 MG Tablet PO SCH ×2 (08:54→21:33)
[2018-05-23] MEDS: Insulin Detemir Inj 1,000 UNIT/10 ML Vial SQ SCH ×2 (08:57→21:40)
[2018-05-23] MEDS ORDERED: Aspirin 325 MG Tablet PO SCH (09:00)
[2018-05-23] MEDS ORDERED: Pantoprazole Sodium 20 MG DR Tablet PO SCH (09:00)
[2018-05-23] MEDS: Gabapentin 100 MG Capsule PO SCH ×3 (09:12→17:30)
[2018-05-23] MEDS: Ferrous Sulfate Drops 15 MG/ML 50 ML Bottle PO SCH (09:12)
[2018-05-23] MEDS: Lactic Acid (Ammonium Lactate) 12% Lotion 225 GM Bottle TOPICAL SCH ×2 (09:12→21:36)
[2018-05-23] MEDS: Sodium Chloride 0.65% Nasal Drops/Spray 30 ML Bottle EACH NARE SCH ×2 (09:13→21:36)
[2018-05-23] MEDS: Calamine/Pramoxine Lotion 180 ML Bottle TOPICAL SCH ×2 (09:13→21:36)
--- NOTE | 2018-05-23 10:58 | P.PNIM ---
Subjective Interval history: The patient was resting comfortably in bed. He said that he did not get Ambien last night but he did well without it. He mentions that when he has a bowel movement in the bed staff can get mad at him and he feels helpless about it. He says he does not work with physical therapy every day. He complained of left foot swelling. He endorsed lower extremity numbness. He is looking forward to being discharged to a rehab facility. Physical Exam Vital signs: Vital Signs 05/22/18 12:00 05/22/18 15:10 05/22/18 16:00 Temperature 98.4 F 98.5 F Pulse Rate 69 62 60 Respiratory Rate 22 16 20 Blood Pressure 127/61 124/58 L Pulse Oximetry 97 98 05/22/18 19:34 05/22/18 20:00 05/23/18 00:00 Temperature 98.2 F 98.2 F Pulse Rate 68 63 59 L Respiratory Rate 18 21 21 Blood Pressure 116/60 106/58 L Pulse Oximetry 96 97 97 05/23/18 00:15 05/23/18 04:00 05/23/18 08:00 Temperature 98.3 F 97.4 F L Pulse Rate 59 L 61 Respiratory Rate 19 17 Blood Pressure 97/52 L 117/65 Pulse Oximetry 96 98 95 05/23/18 08:05 Temperature Pulse Rate 62 Respiratory Rate 18 Blood Pressure Pulse Oximetry 98 Intake & Output 05/22/18 05/23/18 05/23/18 18:59 06:59 18:59 Intake Total 520 / 520 240 / 240 Balance 520 / 520 240 / 240 Weight 137 kg Intake: Oral 520 / 520 240 / 240 Other: # Voids 5 # Incontinent Voids 3 Date of Last Bowel Movement 05/21/18 # Bowel Movements 2 Narrative: GENERAL: Obese male, no distress. HEAD: Atraumatic. Normocephalic. EYES: Right eye missing. No scleral icterus. No injection or drainage. ENT: No nasal bleeding or discharge. Mucous membranes pink and moist. NECK: Trachea midline. No JVD. CARDIOVASCULAR: Regular rate and rhythm. RESPIRATORY: CTAB. GASTROINTESTINAL: Abdomen soft, non-tender, nondistended. Hepatic and splenic margins not palpable. MUSCULOSKELETAL: Extremities without clubbing, cyanosis. Bilateral lower extremities with 1+ edema. No obvious deformities. NEUROLOGICAL: Awake, alert oriented 3. No focal deficits. Results - Labs CBC & Chem 7: 05/20/18 06:02 05/20/18 06:10 Laboratory Results - last 24 hr 05/22/18 05/22/18 05/22/18 12:19 17:19 20:06 POC Glucose 188 H 244 H 150 H 05/23/18 07:57 POC Glucose 110 - Procedures 04/30- EGD with dilatation 05/02- colonoscopy- small rectal ulcer, internal and external hemorrhoids Assessment and Plan - Assessment (1) Respiratory failure with hypoxia and hypercapnia Code(s): J96.91 - Respiratory failure, unspecified with hypoxia; J96.92 - Respiratory failure, unspecified with hypercapnia Status: Acute (2) Acute kidney injury superimposed on CKD Code(s): N17.9 - Acute kidney failure, unspecified; N18.9 - Chronic kidney disease, unspecified Status: Acute (3) Acute metabolic encephalopathy Code(s): G93.41 - Metabolic encephalopathy Status: Resolved (4) Altered mental status Code(s): R41.82 - Altered mental status, unspecified Status: Resolved (5) Obesity Code(s): E66.9 - Obesity, unspecified Status: Chronic - Plan Dysphagia with GERD symptoms S/P EGD with dilatation- 04/30 S/P colonoscopy 05/02- poor prep- some rectal ulcer/ hemorrhoids - regular consistency diet Acute on chronic hypercapnic respiratory insufficiency, on home oxygen. PMH COPD , Obstructive sleep apnea. Does not tolerate CPAP mask due to the noise. Status post treatment of MRSA pneumonia -Pulmonology following, CPAP at night, DuoNebs CHF, not in exacerbation, CAD s/p CABG. echo from September showed EF 55-60% -On ASA, Amiodarone 200mg BID, Coreg 12.5mg BID, Clonidine 0.1mg Q8, Plavix 75mg daily, Lasix 40 mg twice daily Hypertension -Continue carvedilol 12.5 mg po bid , clonidine- decrease clonidine to 0.1 mg po bid Diabetes Mellitus, type 2 Well controlled. -Supplemental sliding scale -Levemir 10 units twice daily on ADA/cardiac diet Scrotal pain- improved -Per Dr. Mendoza likely from anasarca. Ultrasound noted. Hypotestosteronism -02/23 total testosterone was 13, free 0.14; s/p 100mg injection. Repeat total testosterone 451/free testosterone 14.4 03/27 Left upper and lower extremity weakness- improved -Head CT on 02/25 shows no acute changes. CT of the neck shows C6-[address] of lumbar spine shows L3-4 herniation with L3 nerve root impingement -Per NS, the disc herniation is nonsurgical. S/p course of steroids Morbid obesity/debility: -PT and OT daily to mobilize the patient more. -Slowly improving Insomnia -Continue Trazodone 100mg HS, Melatonin HS. D/c zolpidem. Constipation, chronic -laxatives/ enema as needed. Iron deficiency anemia-on iron sulfate. -CBC stable Left Knee Pain: possible strain, left knee x-ray unremarkable. -Continue pain control. better range of motion -continue PT Anxiety Acute on chronic. -Ativan as needed. -would recommend resuming paroxetine as an outpt. DVT prophylaxis: Lovenox Discharge Planning: D/c when placement found (1) Respiratory failure with hypoxia and hypercapnia Qualifiers: Chronicity: chronic Qualified Code(s): J96.11 - Chronic respiratory failure with hypoxia; J96.12 - Chronic respiratory failure with hypercapnia
[2018-05-23] MEDS: Enoxaparin Inj 40 MG/0.4 ML Syringe SQ SCH (17:30)
--- NOTE | 2018-05-23 20:07 | P.PNPL ---
Subjective Interval history: 57 YO Obese male with TANA Works with PT Breathing about the same On 4LNC Physical Exam Vital signs: Vital Signs 05/23/18 00:00 05/23/18 00:15 05/23/18 04:00 Temperature 98.2 F 98.3 F Pulse Rate 59 L 59 L Respiratory Rate 21 19 Blood Pressure 106/58 L 97/52 L Pulse Oximetry 97 96 98 05/23/18 08:00 05/23/18 08:05 05/23/18 12:00 Temperature 97.4 F L 98.0 F Pulse Rate 61 62 64 Respiratory Rate 17 18 17 Blood Pressure 117/65 138/63 Pulse Oximetry 95 98 96 05/23/18 16:07 05/23/18 19:26 Temperature Pulse Rate 64 Respiratory Rate 17 Blood Pressure Pulse Oximetry 96 Intake & Output 05/23/18 05/23/18 05/24/18 06:59 18:59 06:59 Intake Total 240 / 240 840 / 840 Balance 240 / 240 840 / 840 Weight 137 kg Intake: Oral 240 / 240 840 / 840 Other: # Incontinent Voids 3 4 Date of Last Bowel Movement 05/21/18 05/23/18 # Bowel Movements 1 GENERAL: Obese WM, NAD SKIN: Warm and dry. HEAD: Normocephalic. EYES: No scleral icterus. No injection or drainage. NECK: Supple, trachea midline. No JVD or lymphadenopathy. CARDIOVASCULAR: Regular rate and rhythm without murmurs, gallops, or rubs. RESPIRATORY: Breath sounds equal bilaterally. No accessory muscle use. GASTROINTESTINAL: Abdomen soft, non-tender, nondistended. MUSCULOSKELETAL: No cyanosis, or edema. BACK: Nontender without obvious deformity. No CVA tenderness. Assessment and Plan - Plan IMPRESSION: TANA COPD CHF Morbid obesity Gen Weakness/ deconditioning PLAN: Supplement 02, 4LNC Keep sat 88-92% Diurease Aerosol nebs CPAP 10/5 at night DC Plans underway.
[2018-05-23] MEDS: traZODone 50 MG Tablet PO SCH (21:34)
[2018-05-24] MEDS: LORazepam 1 MG Tablet PO PRN ×4 (03:52→21:15)
[2018-05-24] MEDS: Psyllium Husk SF 3.4 GM in 5.8 GM Packet PO SCH ×3 (03:52→21:18)
[2018-05-24] MEDS: Nystatin 100,000 UNITS/GM Powder 15 GM Bottle TOPICAL SCH ×3 (06:26→21:17)
[2018-05-24] MEDS: Methylnaltrexone Inj 12 MG/0.6 ML Vial SQ SCH (09:14)
[2018-05-24] MEDS: guaiFENesin 600 MG ER Tablet PO SCH ×2 (09:47→21:14)
[2018-05-24] MEDS: Insulin NovoLOG Aspart Correctional Sugar Inj SQ SCH ×4 (09:47→21:18)
[2018-05-24] MEDS: Furosemide 40 MG Tablet PO SCH ×2 (09:48→21:15)
[2018-05-24] MEDS: Amiodarone 200 MG Tablet PO SCH ×2 (09:48→21:15)
[2018-05-24] MEDS: Gabapentin 100 MG Capsule PO SCH ×3 (09:48→18:16)
[2018-05-24] MEDS: Allopurinol 100 MG Tablet PO SCH (09:48)
[2018-05-24] MEDS: Carvedilol 12.5 MG Tablet PO SCH ×2 (09:48→21:15)
[2018-05-24] MEDS: Senna/Docusate Sodium 8.6/50 MG Tablet PO SCH ×2 (09:48→21:15)
[2018-05-24] MEDS: Famotidine 20 MG Tablet PO SCH ×2 (09:48→21:15)
[2018-05-24] MEDS: Sodium Chloride 0.65% Nasal Drops/Spray 30 ML Bottle EACH NARE SCH ×2 (09:50→21:17)
[2018-05-24] MEDS: Ferrous Sulfate Drops 15 MG/ML 50 ML Bottle PO SCH (09:50)
[2018-05-24] MEDS: Insulin Detemir Inj 1,000 UNIT/10 ML Vial SQ SCH ×2 (09:50→21:18)
[2018-05-24] MEDS: Lactic Acid (Ammonium Lactate) 12% Lotion 225 GM Bottle TOPICAL SCH ×2 (09:50→21:18)
[2018-05-24] MEDS: Calamine/Pramoxine Lotion 180 ML Bottle TOPICAL SCH ×2 (09:50→21:17)
--- NOTE | 2018-05-24 14:50 | P.PNIM ---
Subjective Interval history: The pt was adamant that he needed to have multiple bowel movements daily. He was working with therapy. He had no other acute complaints. Physical Exam Vital signs: Vital Signs 05/23/18 16:07 05/23/18 19:26 05/23/18 20:00 Temperature 97.9 F Pulse Rate 64 66 Respiratory Rate 17 18 Blood Pressure 132/74 Pulse Oximetry 96 97 05/23/18 20:15 05/23/18 23:51 05/24/18 00:00 Temperature 97.4 F L Pulse Rate 64 58 L 56 L Respiratory Rate 17 18 18 Blood Pressure 127/58 L Pulse Oximetry 98 99 05/24/18 04:00 05/24/18 04:09 05/24/18 04:20 Temperature 97.3 F L Pulse Rate 61 Respiratory Rate 20 Blood Pressure 141/71 H Pulse Oximetry 100 99 96 05/24/18 04:21 05/24/18 07:55 05/24/18 14:44 Temperature Pulse Rate 66 69 Respiratory Rate 18 20 Blood Pressure Pulse Oximetry 96 98 Intake & Output 05/23/18 05/24/18 05/24/18 18:59 06:59 18:59 Intake Total 840 / 840 480 / 480 Balance 840 / 840 480 / 480 Weight 136.8 kg Intake: Oral 840 / 840 480 / 480 Other: # Voids 7 # Incontinent Voids 4 Date of Last Bowel Movement 05/23/18 # Bowel Movements 1 0 Narrative: GENERAL: Obese male, no distress. HEAD: Atraumatic. Normocephalic. EYES: Right eye missing. No scleral icterus. No injection or drainage. ENT: No nasal bleeding or discharge. Mucous membranes pink and moist. NECK: Trachea midline. No JVD. CARDIOVASCULAR: Regular rate and rhythm. RESPIRATORY: CTAB. GASTROINTESTINAL: Abdomen soft, non-tender, nondistended. Hepatic and splenic margins not palpable. MUSCULOSKELETAL: Extremities without clubbing, cyanosis. Bilateral lower extremities with 1+ edema. No obvious deformities. NEUROLOGICAL: Awake, alert oriented 3. No focal deficits. Results - Labs CBC & Chem 7: 05/20/18 06:02 05/20/18 06:10 Laboratory Results - last 24 hr 05/23/18 05/23/18 05/24/18 17:23 21:33 07:46 POC Glucose 160 H 159 H 120 H 05/24/18 12:57 POC Glucose 161 H - Procedures 04/30- EGD with dilatation 05/02- colonoscopy- small rectal ulcer, internal and external hemorrhoids Assessment and Plan - Assessment (1) Respiratory failure with hypoxia and hypercapnia Code(s): J96.91 - Respiratory failure, unspecified with hypoxia; J96.92 - Respiratory failure, unspecified with hypercapnia Status: Acute (2) Acute kidney injury superimposed on CKD Code(s): N17.9 - Acute kidney failure, unspecified; N18.9 - Chronic kidney disease, unspecified Status: Acute (3) Acute metabolic encephalopathy Code(s): G93.41 - Metabolic encephalopathy Status: Resolved (4) Altered mental status Code(s): R41.82 - Altered mental status, unspecified Status: Resolved (5) Obesity Code(s): E66.9 - Obesity, unspecified Status: Chronic - Plan Dysphagia with GERD symptoms S/P EGD with dilatation- 04/30 S/P colonoscopy 05/02- poor prep- some rectal ulcer/ hemorrhoids - regular consistency diet Acute on chronic hypercapnic respiratory insufficiency, on home oxygen. PMH COPD , Obstructive sleep apnea. Does not tolerate CPAP mask due to the noise. Status post treatment of MRSA pneumonia -Pulmonology following, CPAP at night, DuoNebs, encourage ambulation CHF, not in exacerbation, CAD s/p CABG. echo from September showed EF 55-60% -On ASA, Amiodarone 200mg BID, Coreg 12.5mg BID, Clonidine 0.1mg Q8, Plavix 75mg daily, Lasix 40 mg twice daily Hypertension -Continue carvedilol 12.5 mg po bid , clonidine- decrease clonidine to 0.1 mg po bid Diabetes Mellitus, type 2 Well controlled. -Supplemental sliding scale -Levemir 10 units twice daily on ADA/cardiac diet Scrotal pain- improved -Per Dr. Mendoza likely from anasarca. Ultrasound noted. Hypotestosteronism -02/23 total testosterone was 13, free 0.14; s/p 100mg injection. Repeat total testosterone 451/free testosterone 14.4 7 Left upper and lower extremity weakness- improved -Head CT on 02/25 shows no acute changes. CT of the neck shows C6-[address] of lumbar spine shows L3-4 herniation with L3 nerve root impingement -Per NS, the disc herniation is nonsurgical. S/p course of steroids Morbid obesity/debility: -PT and OT daily to mobilize the patient more. -Slowly improving Insomnia -Continue Trazodone 100mg HS, Melatonin HS. D/c zolpidem. Constipation, chronic -laxatives/ enema as needed. Pt has also been taking his own laxatives. He was instructed not to do that. Iron deficiency anemia-on iron sulfate. -CBC stable Left Knee Pain: possible strain, left knee x-ray unremarkable. -Continue pain control. better range of motion -continue PT Anxiety Acute on chronic. -Ativan as needed. -would recommend resuming paroxetine as an outpt. DVT prophylaxis: Lovenox Discharge Planning: D/c when placement found (1) Respiratory failure with hypoxia and hypercapnia Qualifiers: Chronicity: chronic Qualified Code(s): J96.11 - Chronic respiratory failure with hypoxia; J96.12 - Chronic respiratory failure with hypercapnia
--- NOTE | 2018-05-24 15:58 | P.PNPL ---
Subjective Interval history: 57 YO Obese male with TANA Works with PT Breathing about the same On 4LNC Used CPAP last night Slept better " no body will take me in the NH" Physical Exam Vital signs: Vital Signs 05/23/18 16:07 05/23/18 19:26 05/23/18 20:00 Temperature 97.9 F Pulse Rate 64 66 Respiratory Rate 17 18 Blood Pressure 132/74 Pulse Oximetry 96 97 05/23/18 20:15 05/23/18 23:51 05/24/18 00:00 Temperature 97.4 F L Pulse Rate 64 58 L 56 L Respiratory Rate 17 18 18 Blood Pressure 127/58 L Pulse Oximetry 98 99 05/24/18 04:00 05/24/18 04:09 05/24/18 04:20 Temperature 97.3 F L Pulse Rate 61 Respiratory Rate 20 Blood Pressure 141/71 H Pulse Oximetry 100 99 96 05/24/18 04:21 05/24/18 07:55 05/24/18 14:44 Temperature Pulse Rate 66 69 Respiratory Rate 18 20 Blood Pressure Pulse Oximetry 96 98 Intake & Output 05/23/18 05/24/18 05/24/18 18:59 06:59 18:59 Intake Total 840 / 840 480 / 480 Balance 840 / 840 480 / 480 Weight 136.8 kg Intake: Oral 840 / 840 480 / 480 Other: # Voids 7 # Incontinent Voids 4 Date of Last Bowel Movement 05/23/18 # Bowel Movements 1 0 GENERAL: Obese WM, sitting at the bedside SKIN: Warm and dry. HEAD: Normocephalic. EYES: No scleral icterus. No injection or drainage. NECK: Supple, trachea midline. No JVD or lymphadenopathy. CARDIOVASCULAR: Regular rate and rhythm without murmurs, gallops, or rubs. RESPIRATORY: Breath sounds equal bilaterally. No accessory muscle use. GASTROINTESTINAL: Abdomen soft, non-tender, nondistended. MUSCULOSKELETAL: No cyanosis, or edema. BACK: Nontender without obvious deformity. No CVA tenderness. Assessment and Plan - Plan IMPRESSION: TANA COPD CHF Morbid obesity Gen Weakness/ deconditioning PLAN: Supplement 02, 4LNC Keep sat 88-92% Diurease Aerosol nebs CPAP 10/5 at night
[2018-05-24] MEDS: Enoxaparin Inj 40 MG/0.4 ML Syringe SQ SCH (18:16)
[2018-05-24] MEDS: traZODone 50 MG Tablet PO SCH (21:15)
[2018-05-25] MEDS: LORazepam 1 MG Tablet PO PRN ×3 (04:57→18:57)
[2018-05-25] MEDS: Nystatin 100,000 UNITS/GM Powder 15 GM Bottle TOPICAL SCH ×3 (05:27→22:34)
[2018-05-25] MEDS: Insulin Detemir Inj 1,000 UNIT/10 ML Vial SQ SCH ×2 (09:05→21:59)
[2018-05-25] MEDS: Insulin NovoLOG Aspart Correctional Sugar Inj SQ SCH ×4 (09:05→22:00)
[2018-05-25] MEDS: Lactic Acid (Ammonium Lactate) 12% Lotion 225 GM Bottle TOPICAL SCH ×2 (09:05→21:59)
[2018-05-25] MEDS: Sodium Chloride 0.65% Nasal Drops/Spray 30 ML Bottle EACH NARE SCH ×2 (09:05→21:58)
[2018-05-25] MEDS: Calamine/Pramoxine Lotion 180 ML Bottle TOPICAL SCH ×2 (09:05→21:58)
[2018-05-25] MEDS: Gabapentin 100 MG Capsule PO SCH ×3 (09:06→18:57)
[2018-05-25] MEDS: guaiFENesin 600 MG ER Tablet PO SCH ×2 (09:07→21:58)
[2018-05-25] MEDS: Senna/Docusate Sodium 8.6/50 MG Tablet PO SCH ×2 (09:08→21:59)
[2018-05-25] MEDS: Allopurinol 100 MG Tablet PO SCH (09:08)
[2018-05-25] MEDS: Amiodarone 200 MG Tablet PO SCH ×2 (09:08→21:58)
[2018-05-25] MEDS: Famotidine 20 MG Tablet PO SCH ×2 (09:08→21:59)
[2018-05-25] MEDS: Methylnaltrexone Inj 12 MG/0.6 ML Vial SQ SCH (09:09)
[2018-05-25] MEDS: Furosemide 40 MG Tablet PO SCH ×2 (09:09→21:58)
[2018-05-25] MEDS: Psyllium Husk SF 3.4 GM in 5.8 GM Packet PO SCH ×2 (09:09→21:58)
[2018-05-25] MEDS: Carvedilol 12.5 MG Tablet PO SCH ×2 (09:18→21:58)
[2018-05-25] MEDS: Ferrous Sulfate Drops 15 MG/ML 50 ML Bottle PO SCH (09:21)
[2018-05-25] MEDS ORDERED: Senna/Docusate Sodium 8.6/50 MG Tablet PO ONE (11:45)
--- NOTE | 2018-05-25 16:07 | P.PNIM ---
Subjective Interval history: Patient's only complaint today is no bowel movement in 2 days. He feels fullness in his left lower quadrant. Physical Exam Vital signs: Vital Signs 05/24/18 20:00 05/24/18 20:21 05/25/18 00:00 Temperature 98.2 F 97.9 F Pulse Rate 58 L 68 57 L Respiratory Rate 18 18 18 Blood Pressure 124/55 L 102/55 L Pulse Oximetry 98 97 99 05/25/18 00:31 05/25/18 00:33 05/25/18 04:00 Temperature 97.7 F Pulse Rate 62 63 Respiratory Rate 22 18 Blood Pressure 113/63 Pulse Oximetry 96 98 05/25/18 07:32 05/25/18 08:00 05/25/18 12:00 Temperature 98 F Pulse Rate 62 60 66 Respiratory Rate 12 20 Blood Pressure 106/55 L 123/63 Pulse Oximetry 97 98 98 Intake & Output 05/24/18 05/25/18 05/25/18 18:59 06:59 18:59 Intake Total 720 / 720 480 / 480 Balance 720 / 720 480 / 480 Weight 136.6 kg Intake: Oral 720 / 720 480 / 480 Other: # Voids 4 6 Date of Last Bowel Movement 05/24/18 05/24/18 05/25/18 # Bowel Movements 3 0 Narrative: GENERAL: Obese male, no distress. HEAD: Atraumatic. Normocephalic. EYES: Right eye missing. No scleral icterus. No injection or drainage. ENT: No nasal bleeding or discharge. Mucous membranes pink and moist. NECK: Trachea midline. No JVD. CARDIOVASCULAR: Regular rate and rhythm. RESPIRATORY: CTAB. GASTROINTESTINAL: Abdomen soft, non-tender, nondistended. Hepatic and splenic margins not palpable. MUSCULOSKELETAL: Extremities without clubbing, cyanosis. Bilateral lower extremities with 1+ edema. No obvious deformities. NEUROLOGICAL: Awake, alert oriented 3. No focal deficits. Results - Labs CBC & Chem 7: 05/20/18 06:02 05/20/18 06:10 Laboratory Results - last 24 hr 05/24/18 05/24/18 05/25/18 18:06 20:08 07:38 POC Glucose 156 H 160 H 104 05/25/18 12:20 POC Glucose 199 H - Procedures 04/30- EGD with dilatation 05/02- colonoscopy- small rectal ulcer, internal and external hemorrhoids Assessment and Plan - Assessment (1) Respiratory failure with hypoxia and hypercapnia Code(s): J96.91 - Respiratory failure, unspecified with hypoxia; J96.92 - Respiratory failure, unspecified with hypercapnia Status: Acute (2) Acute kidney injury superimposed on CKD Code(s): N17.9 - Acute kidney failure, unspecified; N18.9 - Chronic kidney disease, unspecified Status: Acute (3) Acute metabolic encephalopathy Code(s): G93.41 - Metabolic encephalopathy Status: Resolved (4) Altered mental status Code(s): R41.82 - Altered mental status, unspecified Status: Resolved (5) Obesity Code(s): E66.9 - Obesity, unspecified Status: Chronic - Plan Dysphagia with GERD symptoms S/P EGD with dilatation 04/30 S/P colonoscopy 05/02- poor prep- some rectal ulcer/ hemorrhoids Continue regular consistency diet Acute on chronic hypercapnic respiratory insufficiency History of PMH COPD, Obstructive sleep apnea. Does not tolerate CPAP mask due to the noise. Status post treatment of MRSA pneumonia Previously on home oxygen Continue CPAP at night, DuoNebs, encourage ambulation Appreciate pulmonology following h/o CHF not in exacerbation, CAD s/p CABG. echo from September showed EF 55-60% Continue ASA, Amiodarone 200mg BID, Coreg 12.5mg BID, Clonidine 0.1mg Q8, Plavix 75mg daily, Lasix 40 mg twice daily Hypertension Continue carvedilol 12.5 mg po bid , continue clonidine Diabetes Mellitus, type 2 Well controlled. Continue sliding-scale coverage Levemir 10 units twice daily Continue ADA/cardiac diet Scrotal pain Per Dr. Mendoza likely from anasarca. Ultrasound noted. Improved Hypotestosteronism Periodic testosterone dosing for energy level, initially diagnosed near 0 Left upper and lower extremity weakness Head CT on 02/25 shows no acute changes. CT of the neck shows C6-[address] of lumbar spine shows L3-4 herniation with L3 nerve root impingement Per NS, the disc herniation is nonsurgical. S/p course of steroids, improved Morbid obesity/debility Continue PT and OT daily to mobilize the patient more. Slowly improving Insomnia Continue Trazodone 100mg HS, Melatonin HS. D/c zolpidem. Constipation, chronic laxatives/ enema as needed. Patient was constipated today, extra dose of Simi-Colace given Iron deficiency anemia CBC stable Left Knee Pain possible strain, left knee x-ray unremarkable. Continue pain control. better range of motion continue PT Anxiety Acute on chronic. Continue Ativan as needed. DVT Prophylaxis Lovenox (1) Respiratory failure with hypoxia and hypercapnia Qualifiers: Chronicity: chronic Qualified Code(s): J96.11 - Chronic respiratory failure with hypoxia; J96.12 - Chronic respiratory failure with hypercapnia
--- NOTE | 2018-05-25 17:46 | P.PNPL ---
Subjective Interval history: 57 YO Obese male with TANA Works with PT Breathing about the same On 4LNC Uses CPAP at night Physical Exam Vital signs: Vital Signs 05/24/18 20:00 05/24/18 20:21 05/25/18 00:00 Temperature 98.2 F 97.9 F Pulse Rate 58 L 68 57 L Respiratory Rate 18 18 18 Blood Pressure 124/55 L 102/55 L Pulse Oximetry 98 97 99 05/25/18 00:31 05/25/18 00:33 05/25/18 04:00 Temperature 97.7 F Pulse Rate 62 63 Respiratory Rate 22 18 Blood Pressure 113/63 Pulse Oximetry 96 98 05/25/18 07:32 05/25/18 08:00 05/25/18 12:00 Temperature 98 F Pulse Rate 62 60 66 Respiratory Rate 12 20 Blood Pressure 106/55 L 123/63 Pulse Oximetry 97 98 98 05/25/18 16:00 05/25/18 17:08 Temperature 98.4 F Pulse Rate 63 63 Respiratory Rate 19 12 Blood Pressure 103/61 Pulse Oximetry 99 Intake & Output 05/24/18 05/25/18 05/25/18 18:59 06:59 18:59 Intake Total 720 / 720 480 / 480 Balance 720 / 720 480 / 480 Weight 136.6 kg Intake: Oral 720 / 720 480 / 480 Other: # Voids 4 6 Date of Last Bowel Movement 05/24/18 05/24/18 05/25/18 # Bowel Movements 3 0 GENERAL: Obese WM, NAD SKIN: Warm and dry. HEAD: Normocephalic. EYES: No scleral icterus. No injection or drainage. NECK: Supple, trachea midline. No JVD or lymphadenopathy. CARDIOVASCULAR: Regular rate and rhythm without murmurs, gallops, or rubs. RESPIRATORY: Breath sounds equal bilaterally. No accessory muscle use. GASTROINTESTINAL: Abdomen soft, non-tender, nondistended. MUSCULOSKELETAL: No cyanosis, or edema. BACK: Nontender without obvious deformity. No CVA tenderness. Assessment and Plan - Plan IMPRESSION: TANA COPD CHF Morbid obesity Gen Weakness/ deconditioning PLAN: Supplement , 4LNC Keep sat 88-92% Diurease Aerosol nebs CPAP 10/5 at night Available prn over weekend.
[2018-05-25] MEDS: Enoxaparin Inj 40 MG/0.4 ML Syringe SQ SCH (18:57)
[2018-05-25] MEDS: traZODone 50 MG Tablet PO SCH (21:59)
[2018-05-26] MEDS: LORazepam 1 MG Tablet PO PRN ×4 (00:52→19:45)
[2018-05-26] MEDS: Nystatin 100,000 UNITS/GM Powder 15 GM Bottle TOPICAL SCH ×3 (06:24→22:33)
[2018-05-26] MEDS: Insulin NovoLOG Aspart Correctional Sugar Inj SQ SCH ×4 (09:34→21:27)
[2018-05-26] MEDS: Carvedilol 12.5 MG Tablet PO SCH ×2 (09:39→20:04)
[2018-05-26] MEDS: Famotidine 20 MG Tablet PO SCH ×2 (09:40→20:03)
[2018-05-26] MEDS: Furosemide 40 MG Tablet PO SCH ×2 (09:40→20:04)
[2018-05-26] MEDS: guaiFENesin 600 MG ER Tablet PO SCH ×2 (09:40→20:03)
[2018-05-26] MEDS: Allopurinol 100 MG Tablet PO SCH (09:40)
[2018-05-26] MEDS: Gabapentin 100 MG Capsule PO SCH ×3 (09:40→18:05)
[2018-05-26] MEDS: Amiodarone 200 MG Tablet PO SCH ×2 (09:40→20:04)
[2018-05-26] MEDS: Lactic Acid (Ammonium Lactate) 12% Lotion 225 GM Bottle TOPICAL SCH ×2 (09:41→20:07)
[2018-05-26] MEDS: Psyllium Husk SF 3.4 GM in 5.8 GM Packet PO SCH ×2 (09:41→21:36)
[2018-05-26] MEDS: Insulin Detemir Inj 1,000 UNIT/10 ML Vial SQ SCH ×2 (09:41→21:26)
[2018-05-26] MEDS: Sodium Chloride 0.65% Nasal Drops/Spray 30 ML Bottle EACH NARE SCH ×2 (09:41→22:33)
[2018-05-26] MEDS: Calamine/Pramoxine Lotion 180 ML Bottle TOPICAL SCH ×2 (09:41→22:33)
[2018-05-26] MEDS: Ferrous Sulfate Drops 15 MG/ML 50 ML Bottle PO SCH (09:41)
[2018-05-26] MEDS: Senna/Docusate Sodium 8.6/50 MG Tablet PO SCH ×2 (14:05→20:03)
[2018-05-26] MEDS: Methylnaltrexone Inj 12 MG/0.6 ML Vial SQ SCH (14:05)
--- NOTE | 2018-05-26 15:36 | P.PNIM ---
Subjective Interval history: Patient reports he did not have a bowel movement overnight, feels this morning like he may have 1, requested a stronger laxative. Physical Exam Vital signs: Vital Signs 05/25/18 16:00 05/25/18 17:08 05/25/18 19:54 Temperature 98.4 F Pulse Rate 63 63 87 Respiratory Rate 19 12 16 Blood Pressure 103/61 Pulse Oximetry 99 96 05/25/18 20:00 05/26/18 00:00 05/26/18 04:00 Temperature 98.4 F 98.8 F 98 F Pulse Rate 64 61 60 Respiratory Rate 18 18 18 Blood Pressure 120/63 118/59 L 105/53 L Pulse Oximetry 98 97 98 05/26/18 08:00 05/26/18 08:21 Temperature 98.2 F Pulse Rate 61 60 Respiratory Rate 18 18 Blood Pressure 105/59 L Pulse Oximetry 99 98 Intake & Output 05/25/18 05/26/18 05/26/18 18:59 06:59 18:59 Intake Total 480 / 480 Balance 480 / 480 Weight 136.5 kg Intake: Oral 480 / 480 Other: # Voids 7 Date of Last Bowel Movement 05/25/18 05/25/18 # Bowel Movements 0 Narrative: GENERAL: Obese male, no distress. HEAD: Atraumatic. Normocephalic. EYES: Right eye missing. No scleral icterus. No injection or drainage. ENT: No nasal bleeding or discharge. Mucous membranes pink and moist. NECK: Trachea midline. No JVD. CARDIOVASCULAR: Regular rate and rhythm. RESPIRATORY: CTAB. GASTROINTESTINAL: Abdomen soft, non-tender, nondistended. Hepatic and splenic margins not palpable. MUSCULOSKELETAL: Extremities without clubbing, cyanosis. Bilateral lower extremities with 1+ edema. No obvious deformities. NEUROLOGICAL: Awake, alert oriented 3. No focal deficits. Results - Labs CBC & Chem 7: 05/20/18 06:02 05/20/18 06:10 Laboratory Results - last 24 hr 05/25/18 05/25/18 05/26/18 16:41 19:54 07:37 POC Glucose 186 H 216 H 147 H 05/26/18 12:26 POC Glucose 182 H - Procedures 04/30- EGD with dilatation 05/02- colonoscopy- small rectal ulcer, internal and external hemorrhoids Assessment and Plan - Assessment (1) Respiratory failure with hypoxia and hypercapnia Code(s): J96.91 - Respiratory failure, unspecified with hypoxia; J96.92 - Respiratory failure, unspecified with hypercapnia Status: Acute (2) Acute kidney injury superimposed on CKD Code(s): N17.9 - Acute kidney failure, unspecified; N18.9 - Chronic kidney disease, unspecified Status: Acute (3) Acute metabolic encephalopathy Code(s): G93.41 - Metabolic encephalopathy Status: Resolved (4) Altered mental status Code(s): R41.82 - Altered mental status, unspecified Status: Resolved (5) Obesity Code(s): E66.9 - Obesity, unspecified Status: Chronic - Plan Dysphagia with GERD symptoms S/P EGD with dilatation 04/30 S/P colonoscopy 05/02- poor prep- some rectal ulcer/ hemorrhoids Continue regular consistency diet Acute on chronic hypercapnic respiratory insufficiency History of PMH COPD, Obstructive sleep apnea. Does not tolerate CPAP mask due to the noise. Status post treatment of MRSA pneumonia Previously on home oxygen Continue CPAP at night, DuoNebs, encourage ambulation Appreciate pulmonology following h/o CHF not in exacerbation, CAD s/p CABG. echo from September showed EF 55-60% Continue ASA, Amiodarone 200mg BID, Coreg 12.5mg BID, Clonidine 0.1mg Q8, Plavix 75mg daily, Lasix 40 mg twice daily Hypertension Continue carvedilol 12.5 mg po bid , continue clonidine Diabetes Mellitus, type 2 Well controlled. Continue sliding-scale coverage Levemir 10 units twice daily Continue ADA/cardiac diet Scrotal pain Per Dr. Mendoza likely from anasarca. Ultrasound noted. Improved Hypotestosteronism Periodic testosterone dosing for energy level, initially diagnosed near 0 Left upper and lower extremity weakness Head CT on 02/25 shows no acute changes. CT of the neck shows C6-[address] of lumbar spine shows L3-4 herniation with L3 nerve root impingement Per NS, the disc herniation is nonsurgical. S/p course of steroids, improved Morbid obesity/debility Continue PT and OT daily to mobilize the patient more. Slowly improving Insomnia Continue Trazodone 100mg HS, Melatonin HS. D/c zolpidem. Constipation, chronic laxatives/ enema as needed. Higher dose of senna provided today, still no bowel movement as of this morning Iron deficiency anemia CBC stable Left Knee Pain possible strain, left knee x-ray unremarkable. Continue pain control. better range of motion continue PT Anxiety Acute on chronic. Continue Ativan as needed. DVT Prophylaxis Lovenox (1) Respiratory failure with hypoxia and hypercapnia Qualifiers: Chronicity: chronic Qualified Code(s): J96.11 - Chronic respiratory failure with hypoxia; J96.12 - Chronic respiratory failure with hypercapnia
[2018-05-26] MEDS: Enoxaparin Inj 40 MG/0.4 ML Syringe SQ SCH (18:06)
[2018-05-26] MEDS: traZODone 50 MG Tablet PO SCH (20:03)
[2018-05-27] MEDS: LORazepam 1 MG Tablet PO PRN ×3 (05:16→18:15)
[2018-05-27] MEDS: Nystatin 100,000 UNITS/GM Powder 15 GM Bottle TOPICAL SCH ×3 (06:12→22:00)
[2018-05-27] MEDS: Gabapentin 100 MG Capsule PO SCH ×3 (09:34→17:58)
[2018-05-27] MEDS: Senna/Docusate Sodium 8.6/50 MG Tablet PO SCH (09:37)
[2018-05-27] MEDS: Famotidine 20 MG Tablet PO SCH ×2 (09:38→22:04)
[2018-05-27] MEDS: Furosemide 40 MG Tablet PO SCH ×2 (09:38→22:06)
[2018-05-27] MEDS: guaiFENesin 600 MG ER Tablet PO SCH ×2 (09:38→22:07)
[2018-05-27] MEDS: Amiodarone 200 MG Tablet PO SCH ×2 (09:38→22:05)
[2018-05-27] MEDS: Allopurinol 100 MG Tablet PO SCH (09:38)
[2018-05-27] MEDS: Carvedilol 12.5 MG Tablet PO SCH ×2 (09:38→22:06)
[2018-05-27] MEDS: Ferrous Sulfate Drops 15 MG/ML 50 ML Bottle PO SCH (09:50)
[2018-05-27] MEDS: Calamine/Pramoxine Lotion 180 ML Bottle TOPICAL SCH ×2 (09:50→22:15)
[2018-05-27] MEDS: Sodium Chloride 0.65% Nasal Drops/Spray 30 ML Bottle EACH NARE SCH ×2 (09:51→22:16)
[2018-05-27] MEDS: Insulin Detemir Inj 1,000 UNIT/10 ML Vial SQ SCH ×2 (09:51→22:13)
[2018-05-27] MEDS: Lactic Acid (Ammonium Lactate) 12% Lotion 225 GM Bottle TOPICAL SCH ×2 (09:51→22:15)
[2018-05-27] MEDS: Insulin NovoLOG Aspart Correctional Sugar Inj SQ SCH ×4 (09:51→22:12)
[2018-05-27] MEDS: Psyllium Husk SF 3.4 GM in 5.8 GM Packet PO SCH (09:52)
[2018-05-27] MEDS: Methylnaltrexone Inj 12 MG/0.6 ML Vial SQ SCH (09:52)
--- NOTE | 2018-05-27 13:55 | P.PNIM ---
Subjective Interval history: Patient states he had bowel movement yesterday, nurse reports that he has a history of diarrhea induced by frequent use of hospital laxatives as well as laxatives that he speaks in from home. Physical Exam Vital signs: Vital Signs 05/26/18 16:00 05/26/18 17:36 05/26/18 20:00 Temperature 98.4 F 98.6 F Pulse Rate 59 L 82 69 Respiratory Rate 18 18 21 Blood Pressure 127/60 134/61 Pulse Oximetry 98 97 05/26/18 20:12 05/27/18 00:00 05/27/18 04:00 Temperature 97.9 F 97.9 F Pulse Rate 78 59 L 60 Respiratory Rate 18 20 20 Blood Pressure 109/57 L 111/58 L Pulse Oximetry 95 97 05/27/18 08:00 05/27/18 08:01 05/27/18 12:00 Temperature 97.8 F 97.7 F Pulse Rate 57 L 60 65 Respiratory Rate 19 20 19 Blood Pressure 117/59 L 110/55 L Pulse Oximetry 97 97 97 05/27/18 12:29 Temperature Pulse Rate 60 Respiratory Rate 20 Blood Pressure Pulse Oximetry Intake & Output 05/26/18 05/27/18 05/27/18 18:59 06:59 18:59 Intake Total 480 / 480 Balance 480 / 480 Weight 136.2 kg Intake: Oral 480 / 480 Other: # Voids 1 # Incontinent Voids 4 Date of Last Bowel Movement 05/25/18 # Bowel Movements 1 Narrative: GENERAL: Obese male, no distress. HEAD: Atraumatic. Normocephalic. EYES: Right eye missing. No scleral icterus. No injection or drainage. ENT: No nasal bleeding or discharge. Mucous membranes pink and moist. NECK: Trachea midline. No JVD. CARDIOVASCULAR: Regular rate and rhythm. RESPIRATORY: CTAB. GASTROINTESTINAL: Abdomen soft, non-tender, nondistended. Hepatic and splenic margins not palpable. MUSCULOSKELETAL: Extremities without clubbing, cyanosis. Bilateral lower extremities with 1+ edema. No obvious deformities. NEUROLOGICAL: Awake, alert oriented 3. No focal deficits. Results - Labs CBC & Chem 7: 05/20/18 06:02 05/20/18 06:10 Laboratory Results - last 24 hr 05/26/18 05/26/18 05/27/18 17:23 21:17 09:36 POC Glucose 177 H 184 H 114 H 09/02/18 12:02 POC Glucose 203 H - Procedures 04/30- EGD with dilatation 05/02- colonoscopy- small rectal ulcer, internal and external hemorrhoids Assessment and Plan - Assessment (1) Respiratory failure with hypoxia and hypercapnia Code(s): J96.91 - Respiratory failure, unspecified with hypoxia; J96.92 - Respiratory failure, unspecified with hypercapnia Status: Acute (2) Acute kidney injury superimposed on CKD Code(s): N17.9 - Acute kidney failure, unspecified; N18.9 - Chronic kidney disease, unspecified Status: Acute (3) Acute metabolic encephalopathy Code(s): G93.41 - Metabolic encephalopathy Status: Resolved (4) Altered mental status Code(s): R41.82 - Altered mental status, unspecified Status: Resolved (5) Obesity Code(s): E66.9 - Obesity, unspecified Status: Chronic - Plan Dysphagia with GERD symptoms S/P EGD with dilatation 04/30 S/P colonoscopy 05/02- poor prep- some rectal ulcer/ hemorrhoids Continue regular consistency diet Acute on chronic hypercapnic respiratory insufficiency History of PMH COPD, Obstructive sleep apnea. Does not tolerate CPAP mask due to the noise. Status post treatment of MRSA pneumonia Previously on home oxygen Continue CPAP at night, DuoNebs, encourage ambulation Appreciate pulmonology following h/o CHF not in exacerbation, CAD s/p CABG. echo from September showed EF 55-60% Continue ASA, Amiodarone 200mg BID, Coreg 12.5mg BID, Clonidine 0.1mg Q8, Plavix 75mg daily, Lasix 40 mg twice daily Hypertension Continue carvedilol 12.5 mg po bid , continue clonidine Diabetes Mellitus, type 2 Well controlled. Continue sliding-scale coverage Levemir 10 units twice daily Continue ADA/cardiac diet Scrotal pain Per Dr. Mendoza likely from anasarca. Ultrasound noted. Improved Hypotestosteronism Periodic testosterone dosing for energy level, initially diagnosed near 0 Left upper and lower extremity weakness Head CT on 02/25 shows no acute changes. CT of the neck shows C6-[address] of lumbar spine shows L3-4 herniation with L3 nerve root impingement Per NS, the disc herniation is nonsurgical. S/p course of steroids, improved Morbid obesity/debility Continue PT and OT daily to mobilize the patient more. Slowly improving Insomnia Continue Trazodone 100mg HS, Melatonin HS. D/c zolpidem. Constipation, chronic Laxative regimen simplified, senna 17.2 mg nightly scheduled his new solo therapy for regularity Iron deficiency anemia CBC stable Left Knee Pain possible strain, left knee x-ray unremarkable. Continue pain control. better range of motion continue PT Anxiety Acute on chronic. Continue Ativan as needed. DVT Prophylaxis Lovenox (1) Respiratory failure with hypoxia and hypercapnia Qualifiers: Chronicity: chronic Qualified Code(s): J96.11 - Chronic respiratory failure with hypoxia; J96.12 - Chronic respiratory failure with hypercapnia
[2018-05-27] MEDS: Enoxaparin Inj 40 MG/0.4 ML Syringe SQ SCH (17:58)
[2018-05-27] MEDS: Melatonin 5 MG Tablet PO PRN (22:07)
[2018-05-27] MEDS: traZODone 50 MG Tablet PO SCH (22:07)
[2018-05-28] MEDS: LORazepam 1 MG Tablet PO PRN ×4 (00:11→20:35)
[2018-05-28] MEDS: Nystatin 100,000 UNITS/GM Powder 15 GM Bottle TOPICAL SCH ×3 (06:03→22:05)
[2018-05-28] MEDS: Furosemide 40 MG Tablet PO SCH ×2 (08:42→20:35)
[2018-05-28] MEDS: Amiodarone 200 MG Tablet PO SCH ×2 (08:42→20:35)
[2018-05-28] MEDS: Famotidine 20 MG Tablet PO SCH ×2 (08:42→20:35)
[2018-05-28] MEDS: Gabapentin 100 MG Capsule PO SCH ×3 (08:42→17:29)
[2018-05-28] MEDS: Carvedilol 12.5 MG Tablet PO SCH ×2 (08:43→20:35)
[2018-05-28] MEDS: Sodium Chloride 0.65% Nasal Drops/Spray 30 ML Bottle EACH NARE SCH ×2 (08:43→20:36)
[2018-05-28] MEDS: guaiFENesin 600 MG ER Tablet PO SCH ×2 (08:43→20:36)
[2018-05-28] MEDS: Allopurinol 100 MG Tablet PO SCH (08:43)
[2018-05-28] MEDS: Ferrous Sulfate Drops 15 MG/ML 50 ML Bottle PO SCH (08:44)
[2018-05-28] MEDS: Lactic Acid (Ammonium Lactate) 12% Lotion 225 GM Bottle TOPICAL SCH ×2 (08:46→20:36)
[2018-05-28] MEDS: Methylnaltrexone Inj 12 MG/0.6 ML Vial SQ SCH (08:46)
[2018-05-28] MEDS: Insulin Detemir Inj 1,000 UNIT/10 ML Vial SQ SCH ×2 (08:46→20:34)
[2018-05-28] MEDS: Calamine/Pramoxine Lotion 180 ML Bottle TOPICAL SCH ×2 (08:47→20:36)
[2018-05-28] MEDS: Insulin NovoLOG Aspart Correctional Sugar Inj SQ SCH ×4 (09:01→20:36)
--- NOTE | 2018-05-28 17:18 | P.PNPL ---
Subjective Interval history: 57 YO Obese male with TANA Works with PT Breathing about the same On 4LNC Not using CPAP Bothers him Sleeps well with sleeping pill. Physical Exam Vital signs: Vital Signs 05/27/18 20:00 05/27/18 20:13 05/28/18 00:00 Temperature 98.1 F 98.8 F Pulse Rate 59 L 58 L 59 L Respiratory Rate 17 19 17 Blood Pressure 112/53 L 104/53 L Pulse Oximetry 98 98 98 05/28/18 00:25 05/28/18 04:00 05/28/18 07:54 Temperature 98 F Pulse Rate 62 61 59 L Respiratory Rate 18 19 12 Blood Pressure 124/59 L Pulse Oximetry 95 97 05/28/18 08:00 05/28/18 12:00 05/28/18 12:04 Temperature 97.3 F L 98.0 F Pulse Rate 59 L 59 L 62 Respiratory Rate 18 17 12 Blood Pressure 114/55 L 107/51 L Pulse Oximetry 97 100 Intake & Output 05/27/18 05/28/18 05/28/18 18:59 06:59 18:59 Intake Total 560 / 560 480 / 480 Balance 560 / 560 480 / 480 Weight 136.5 kg Intake: Oral 560 / 560 480 / 480 Other: # Incontinent Voids 4 3 Date of Last Bowel Movement 05/25/18 # Incontinent Bowel Movements 2 GENERAL: Obese WM, NAD SKIN: Warm and dry. HEAD: Normocephalic. EYES: No scleral icterus. No injection or drainage. NECK: Supple, trachea midline. No JVD or lymphadenopathy. CARDIOVASCULAR: Regular rate and rhythm without murmurs, gallops, or rubs. RESPIRATORY: Breath sounds equal bilaterally. No accessory muscle use. GASTROINTESTINAL: Abdomen soft, non-tender, nondistended. MUSCULOSKELETAL: No cyanosis, or edema. BACK: Nontender without obvious deformity. No CVA tenderness. Assessment and Plan - Plan IMPRESSION: TANA COPD CHF Morbid obesity Gen Weakness/ deconditioning PLAN: Supplement 4LNC Keep sat 88-92% Diurease Aerosol nebs Encourage to use CPAP 10/5 at night
[2018-05-28] MEDS: Enoxaparin Inj 40 MG/0.4 ML Syringe SQ SCH (17:29)
--- NOTE | 2018-05-28 17:39 | P.PNIM ---
Subjective Interval history: Patient had a bowel movement again today, 2 days in a row with Senokot nightly. Physical Exam Vital signs: Vital Signs 05/27/18 20:00 05/27/18 20:13 05/28/18 00:00 Temperature 98.1 F 98.8 F Pulse Rate 59 L 58 L 59 L Respiratory Rate 17 19 17 Blood Pressure 112/53 L 104/53 L Pulse Oximetry 98 98 98 05/28/18 00:25 05/28/18 04:00 05/28/18 07:54 Temperature 98 F Pulse Rate 62 61 59 L Respiratory Rate 18 19 12 Blood Pressure 124/59 L Pulse Oximetry 95 97 05/28/18 08:00 05/28/18 12:00 05/28/18 12:04 Temperature 97.3 F L 98.0 F Pulse Rate 59 L 59 L 62 Respiratory Rate 18 17 12 Blood Pressure 114/55 L 107/51 L Pulse Oximetry 97 100 Intake & Output 05/27/18 05/28/18 05/28/18 18:59 06:59 18:59 Intake Total 560 / 560 480 / 480 Balance 560 / 560 480 / 480 Weight 136.5 kg Intake: Oral 560 / 560 480 / 480 Other: # Incontinent Voids 4 3 Date of Last Bowel Movement 05/25/18 # Incontinent Bowel Movements 2 Narrative: GENERAL: Obese male, no distress. HEAD: Atraumatic. Normocephalic. EYES: Right eye missing. No scleral icterus. No injection or drainage. ENT: No nasal bleeding or discharge. Mucous membranes pink and moist. NECK: Trachea midline. No JVD. CARDIOVASCULAR: Regular rate and rhythm. RESPIRATORY: CTAB. GASTROINTESTINAL: Abdomen soft, non-tender, nondistended. Hepatic and splenic margins not palpable. MUSCULOSKELETAL: Extremities without clubbing, cyanosis. Bilateral lower extremities with 1+ edema. No obvious deformities. NEUROLOGICAL: Awake, alert oriented 3. No focal deficits. Results - Labs CBC & Chem 7: 05/20/18 06:02 05/20/18 06:10 Laboratory Results - last 24 hr 05/27/18 05/28/18 05/28/18 22:11 09:00 12:24 POC Glucose 205 H 133 H 226 H - Procedures 04/30- EGD with dilatation 05/02- colonoscopy- small rectal ulcer, internal and external hemorrhoids Assessment and Plan - Assessment (1) Respiratory failure with hypoxia and hypercapnia Code(s): J96.91 - Respiratory failure, unspecified with hypoxia; J96.92 - Respiratory failure, unspecified with hypercapnia Status: Acute (2) Acute kidney injury superimposed on CKD Code(s): N17.9 - Acute kidney failure, unspecified; N18.9 - Chronic kidney disease, unspecified Status: Acute (3) Acute metabolic encephalopathy Code(s): G93.41 - Metabolic encephalopathy Status: Resolved (4) Altered mental status Code(s): R41.82 - Altered mental status, unspecified Status: Resolved (5) Obesity Code(s): E66.9 - Obesity, unspecified Status: Chronic - Plan 05/28/2018 = patient is having regular bowel movements on a simplified laxative regimen. He will be encouraged to try and use a bedside commode rather than his bed for defecation. Dysphagia with GERD symptoms S/P EGD with dilatation 04/30 S/P colonoscopy 05/02- poor prep- some rectal ulcer/ hemorrhoids Continue regular consistency diet Acute on chronic hypercapnic respiratory insufficiency History of PMH COPD, Obstructive sleep apnea. Does not tolerate CPAP mask due to the noise. Status post treatment of MRSA pneumonia Previously on home oxygen Continue CPAP at night, DuoNebs, encourage ambulation Appreciate pulmonology following h/o CHF not in exacerbation, CAD s/p CABG. echo from September showed EF 55-60% Continue ASA, Amiodarone 200mg BID, Coreg 12.5mg BID, Clonidine 0.1mg Q8, Plavix 75mg daily, Lasix 40 mg twice daily Hypertension Continue carvedilol 12.5 mg po bid , continue clonidine Diabetes Mellitus, type 2 Well controlled. Continue sliding-scale coverage Levemir 10 units twice daily Continue ADA/cardiac diet Scrotal pain Per Dr. Mendoza likely from anasarca. Ultrasound noted. Improved Hypotestosteronism Periodic testosterone dosing for energy level, initially diagnosed near 0 Left upper and lower extremity weakness Head CT on 02/25 shows no acute changes. CT of the neck shows C6-[address] of lumbar spine shows L3-4 herniation with L3 nerve root impingement Per NS, the disc herniation is nonsurgical. S/p course of steroids, improved Morbid obesity/debility Continue PT and OT daily to mobilize the patient more. Slowly improving Insomnia Continue Trazodone 100mg HS, Melatonin HS. D/c zolpidem. Constipation, chronic Laxative regimen simplified, senna 17.2 mg nightly scheduled his new solo therapy for regularity Iron deficiency anemia CBC stable Left Knee Pain possible strain, left knee x-ray unremarkable. Continue pain control. better range of motion continue PT Anxiety Acute on chronic. Continue Ativan as needed. DVT Prophylaxis Lovenox (1) Respiratory failure with hypoxia and hypercapnia Qualifiers: Chronicity: chronic Qualified Code(s): J96.11 - Chronic respiratory failure with hypoxia; J96.12 - Chronic respiratory failure with hypercapnia
[2018-05-28] MEDS: traZODone 50 MG Tablet PO SCH (20:35)
[2018-05-28] MEDS: Melatonin 5 MG Tablet PO PRN (20:37)
[2018-05-29] MEDS: Nystatin 100,000 UNITS/GM Powder 15 GM Bottle TOPICAL SCH ×3 (05:31→22:36)
[2018-05-29] MEDS: Amiodarone 200 MG Tablet PO SCH ×2 (08:48→21:01)
[2018-05-29] MEDS: Sodium Chloride 0.65% Nasal Drops/Spray 30 ML Bottle EACH NARE SCH ×2 (08:48→21:02)
[2018-05-29] MEDS: Famotidine 20 MG Tablet PO SCH ×2 (08:49→21:02)
[2018-05-29] MEDS: Carvedilol 12.5 MG Tablet PO SCH ×2 (08:49→21:02)
[2018-05-29] MEDS: Furosemide 40 MG Tablet PO SCH ×2 (08:49→21:01)
[2018-05-29] MEDS: Allopurinol 100 MG Tablet PO SCH (08:49)
[2018-05-29] MEDS: Insulin NovoLOG Aspart Correctional Sugar Inj SQ SCH ×4 (08:50→21:00)
[2018-05-29] MEDS: LORazepam 1 MG Tablet PO PRN ×3 (08:50→21:01)
[2018-05-29] MEDS: Methylnaltrexone Inj 12 MG/0.6 ML Vial SQ SCH (08:51)
[2018-05-29] MEDS: Gabapentin 100 MG Capsule PO SCH ×3 (08:51→17:37)
[2018-05-29] MEDS: guaiFENesin 600 MG ER Tablet PO SCH ×2 (08:51→21:03)
[2018-05-29] MEDS: Calamine/Pramoxine Lotion 180 ML Bottle TOPICAL SCH ×2 (08:52→21:02)
[2018-05-29] MEDS: Insulin Detemir Inj 1,000 UNIT/10 ML Vial SQ SCH ×2 (08:53→21:00)
[2018-05-29] MEDS: Ferrous Sulfate Drops 15 MG/ML 50 ML Bottle PO SCH (08:54)
[2018-05-29] MEDS: Lactic Acid (Ammonium Lactate) 12% Lotion 225 GM Bottle TOPICAL SCH ×2 (08:54→21:02)
--- NOTE | 2018-05-29 17:09 | P.PNPL ---
Subjective Interval history: 57 YO Obese male with TANA Works with PT Breathing about the same On 4LNC had BM Physical Exam Vital signs: Vital Signs 05/28/18 19:40 05/28/18 20:00 05/29/18 00:00 Temperature 98.3 F 98.2 F Pulse Rate 79 62 59 L Respiratory Rate 18 21 21 Blood Pressure 103/51 L 90/55 L Pulse Oximetry 97 97 98 05/29/18 04:00 05/29/18 08:00 05/29/18 09:00 Temperature 97.8 F 97.9 F Pulse Rate 59 L 58 L 57 L Respiratory Rate 19 20 16 Blood Pressure 94/53 L 131/64 Pulse Oximetry 98 98 99 05/29/18 11:27 05/29/18 12:00 Temperature 97.7 F Pulse Rate 65 57 L Respiratory Rate 18 20 Blood Pressure 125/65 Pulse Oximetry 98 Intake & Output 05/28/18 05/29/18 05/29/18 18:59 06:59 18:59 Intake Total 840 / 840 480 / 480 480 / 480 Balance 840 / 840 480 / 480 480 / 480 Weight 136.7 kg Intake: Oral 840 / 840 480 / 480 480 / 480 Other: # Incontinent Voids 3 Date of Last Bowel Movement 05/28/18 05/28/18 05/28/18 # Bowel Movements 2 GENERAL: Obese Wm, NAD SKIN: Warm and dry. HEAD: Normocephalic. EYES: No scleral icterus. No injection or drainage. NECK: Supple, trachea midline. No JVD or lymphadenopathy. CARDIOVASCULAR: Regular rate and rhythm without murmurs, gallops, or rubs. RESPIRATORY: Breath sounds equal bilaterally. No accessory muscle use. GASTROINTESTINAL: Abdomen soft, non-tender, nondistended. MUSCULOSKELETAL: No cyanosis, or edema. BACK: Nontender without obvious deformity. No CVA tenderness. Assessment and Plan - Plan IMPRESSION: TANA COPD CHF Morbid obesity Gen Weakness/ deconditioning PLAN: Supplement LNC Keep sat 88-92% Diurease Aerosol nebs Encourage to use CPAP 10/5 at night Stable from pulm standpoint.
--- NOTE | 2018-05-29 17:12 | P.PNIM ---
Subjective Interval history: Had a pep talk with patient today and encouraged him to start making efforts to pivot and sit on the side of his bed when he can and eventually stand and pivot onto his bedside commode rather than using the bed itself. Physical Exam Vital signs: Vital Signs 05/28/18 19:40 05/28/18 20:00 05/29/18 00:00 Temperature 98.3 F 98.2 F Pulse Rate 79 62 59 L Respiratory Rate 18 21 21 Blood Pressure 103/51 L 90/55 L Pulse Oximetry 97 97 98 05/29/18 04:00 05/29/18 08:00 05/29/18 09:00 Temperature 97.8 F 97.9 F Pulse Rate 59 L 58 L 57 L Respiratory Rate 19 20 16 Blood Pressure 94/53 L 131/64 Pulse Oximetry 98 98 99 05/29/18 11:27 05/29/18 12:00 Temperature 97.7 F Pulse Rate 65 57 L Respiratory Rate 18 20 Blood Pressure 125/65 Pulse Oximetry 98 Intake & Output 05/28/18 05/29/18 05/29/18 18:59 06:59 18:59 Intake Total 840 / 840 480 / 480 480 / 480 Balance 840 / 840 480 / 480 480 / 480 Weight 136.7 kg Intake: Oral 840 / 840 480 / 480 480 / 480 Other: # Incontinent Voids 3 Date of Last Bowel Movement 05/28/18 05/28/18 05/28/18 # Bowel Movements 2 Narrative: GENERAL: Obese male, no distress. HEAD: Atraumatic. Normocephalic. EYES: Right eye missing. No scleral icterus. No injection or drainage. ENT: No nasal bleeding or discharge. Mucous membranes pink and moist. NECK: Trachea midline. No JVD. CARDIOVASCULAR: Regular rate and rhythm. RESPIRATORY: CTAB. GASTROINTESTINAL: Abdomen soft, non-tender, nondistended. Hepatic and splenic margins not palpable. MUSCULOSKELETAL: Extremities without clubbing, cyanosis. Bilateral lower extremities with 1+ edema. No obvious deformities. NEUROLOGICAL: Awake, alert oriented 3. No focal deficits. Results - Labs CBC & Chem 7: 05/20/18 06:02 05/20/18 06:10 Laboratory Results - last 24 hr 05/28/18 05/28/18 05/29/18 18:13 19:48 08:50 POC Glucose 80 136 H 201 H - Procedures 04/30- EGD with dilatation 05/02- colonoscopy- small rectal ulcer, internal and external hemorrhoids Assessment and Plan - Assessment (1) Respiratory failure with hypoxia and hypercapnia Code(s): J96.91 - Respiratory failure, unspecified with hypoxia; J96.92 - Respiratory failure, unspecified with hypercapnia Status: Acute (2) Acute kidney injury superimposed on CKD Code(s): N17.9 - Acute kidney failure, unspecified; N18.9 - Chronic kidney disease, unspecified Status: Acute (3) Acute metabolic encephalopathy Code(s): G93.41 - Metabolic encephalopathy Status: Resolved (4) Altered mental status Code(s): R41.82 - Altered mental status, unspecified Status: Resolved (5) Obesity Code(s): E66.9 - Obesity, unspecified Status: Chronic - Plan 05/28/2018 = patient is having regular bowel movements on a simplified laxative regimen. He will be encouraged to try and use a bedside commode rather than his bed for defecation. 05/29/2018 = no change to current plan. Patient has no new complaints. Bedside commode is pending. Dysphagia with GERD symptoms S/P EGD with dilatation 04/30 S/P colonoscopy 05/02- poor prep- some rectal ulcer/ hemorrhoids Continue regular consistency diet Acute on chronic hypercapnic respiratory insufficiency History of PMH COPD, Obstructive sleep apnea. Does not tolerate CPAP mask due to the noise. Status post treatment of MRSA pneumonia Previously on home oxygen Continue CPAP at night, DuoNebs, encourage ambulation Appreciate pulmonology following h/o CHF not in exacerbation, CAD s/p CABG. echo from September showed EF 55-60% Continue ASA, Amiodarone 200mg BID, Coreg 12.5mg BID, Clonidine 0.1mg Q8, Plavix 75mg daily, Lasix 40 mg twice daily Hypertension Continue carvedilol 12.5 mg po bid , continue clonidine Diabetes Mellitus, type 2 Well controlled. Continue sliding-scale coverage Levemir 10 units twice daily Continue ADA/cardiac diet Scrotal pain Per Dr. Mendoza likely from anasarca. Ultrasound noted. Improved Hypotestosteronism Periodic testosterone dosing for energy level, initially diagnosed near 0 Left upper and lower extremity weakness Head CT on 02/25 shows no acute changes. CT of the neck shows C6-[address] of lumbar spine shows L3-4 herniation with L3 nerve root impingement Per NS, the disc herniation is nonsurgical. S/p course of steroids, improved Morbid obesity/debility Continue PT and OT daily to mobilize the patient more. Slowly improving Insomnia Continue Trazodone 100mg HS, Melatonin HS. D/c zolpidem. Constipation, chronic Laxative regimen simplified, senna 17.2 mg nightly scheduled his new solo therapy for regularity Iron deficiency anemia CBC stable Left Knee Pain possible strain, left knee x-ray unremarkable. Continue pain control. better range of motion continue PT Anxiety Acute on chronic. Continue Ativan as needed. DVT Prophylaxis Lovenox (1) Respiratory failure with hypoxia and hypercapnia Qualifiers: Chronicity: chronic Qualified Code(s): J96.11 - Chronic respiratory failure with hypoxia; J96.12 - Chronic respiratory failure with hypercapnia
[2018-05-29] MEDS: Enoxaparin Inj 40 MG/0.4 ML Syringe SQ SCH (17:37)
[2018-05-29] MEDS: traZODone 50 MG Tablet PO SCH (21:02)
[2018-05-29] MEDS: Melatonin 5 MG Tablet PO PRN (21:04)
[2018-05-30] MEDS: LORazepam 1 MG Tablet PO PRN ×4 (03:06→21:42)
[2018-05-30] MEDS: Nystatin 100,000 UNITS/GM Powder 15 GM Bottle TOPICAL SCH ×3 (05:57→21:39)
[2018-05-30] MEDS: Insulin NovoLOG Aspart Correctional Sugar Inj SQ SCH ×4 (09:46→21:44)
[2018-05-30] MEDS: Carvedilol 12.5 MG Tablet PO SCH ×2 (09:47→21:43)
[2018-05-30] MEDS: Furosemide 40 MG Tablet PO SCH ×2 (09:47→21:42)
[2018-05-30] MEDS: Famotidine 20 MG Tablet PO SCH ×2 (09:47→21:42)
[2018-05-30] MEDS: Amiodarone 200 MG Tablet PO SCH ×2 (09:47→21:43)
[2018-05-30] MEDS: Gabapentin 100 MG Capsule PO SCH ×3 (09:48→17:52)
[2018-05-30] MEDS: Allopurinol 100 MG Tablet PO SCH (09:48)
[2018-05-30] MEDS: guaiFENesin 600 MG ER Tablet PO SCH ×2 (09:48→21:43)
[2018-05-30] MEDS: Methylnaltrexone Inj 12 MG/0.6 ML Vial SQ SCH (09:48)
[2018-05-30] MEDS: Ferrous Sulfate Drops 15 MG/ML 50 ML Bottle PO SCH (10:05)
[2018-05-30] MEDS: Lactic Acid (Ammonium Lactate) 12% Lotion 225 GM Bottle TOPICAL SCH ×2 (10:05→21:44)
[2018-05-30] MEDS: Insulin Detemir Inj 1,000 UNIT/10 ML Vial SQ SCH ×2 (10:05→21:43)
[2018-05-30] MEDS: Calamine/Pramoxine Lotion 180 ML Bottle TOPICAL SCH ×2 (10:05→21:44)
[2018-05-30] MEDS: Sodium Chloride 0.65% Nasal Drops/Spray 30 ML Bottle EACH NARE SCH ×2 (10:05→21:44)
--- NOTE | 2018-05-30 16:53 | P.PNIM ---
Subjective Interval history: STATES HE IS STANDING AND TAKING A FEW STEPS NOW STILL HAVING BMS IN BED NOT ABLE TO DO BEDSIDE COMMODE YET Physical Exam Vital signs: Vital Signs 05/29/18 18:15 05/29/18 20:00 05/29/18 20:28 Temperature 98.3 F Pulse Rate 61 60 65 Respiratory Rate 20 18 18 Blood Pressure 128/58 L Pulse Oximetry 98 97 05/30/18 00:00 05/30/18 04:00 05/30/18 07:52 Temperature 97.8 F 97.9 F Pulse Rate 54 L 57 L 58 L Respiratory Rate 18 18 18 Blood Pressure 112/56 L 100/56 L Pulse Oximetry 98 99 05/30/18 07:54 05/30/18 08:00 05/30/18 12:00 Temperature 97.4 F L 97.7 F Pulse Rate 68 61 57 L Respiratory Rate 18 18 Blood Pressure 120/68 112/64 Pulse Oximetry 98 98 96 05/30/18 12:34 Temperature Pulse Rate 59 L Respiratory Rate 18 Blood Pressure Pulse Oximetry Intake & Output 05/29/18 05/30/18 05/30/18 18:59 06:59 18:59 Intake Total 480 / 480 240 / 240 Output Total 0 / 0 Balance 480 / 480 240 / 240 Weight 134 kg Intake: Oral 480 / 480 240 / 240 Output: Urine 0 / 0 Other: # Incontinent Voids 2 Date of Last Bowel Movement 05/29/18 05/29/18 # Incontinent Bowel Movements 2 Narrative: GENERAL: Obese male, no distress. HEAD: Atraumatic. Normocephalic. EYES: Right eye missing. No scleral icterus. No injection or drainage. ENT: No nasal bleeding or discharge. Mucous membranes pink and moist. NECK: Trachea midline. No JVD. CARDIOVASCULAR: Regular rate and rhythm. S1, S2 NO S3 OR S4 RESPIRATORY: CTAB.DECREASED BREATH SOUNDS GASTROINTESTINAL: Abdomen soft, non-tender, nondistended. Hepatic and splenic margins not palpable. OBESE MUSCULOSKELETAL: Extremities without clubbing, cyanosis. Bilateral lower extremities with 1+ edema. No obvious deformities. NEUROLOGICAL: Awake, alert oriented 3. No focal deficits. Results - Labs CBC & Chem 7: 05/20/18 06:02 05/20/18 06:10 Laboratory Results - last 24 hr 05/30/18 05/30/18 09:42 12:38 POC Glucose 115 H 144 H - Procedures 04/30- EGD with dilatation 05/02- colonoscopy- small rectal ulcer, internal and external hemorrhoids Assessment and Plan - Assessment (1) Respiratory failure with hypoxia and hypercapnia Code(s): J96.91 - Respiratory failure, unspecified with hypoxia; J96.92 - Respiratory failure, unspecified with hypercapnia Status: Acute (2) Acute kidney injury superimposed on CKD Code(s): N17.9 - Acute kidney failure, unspecified; N18.9 - Chronic kidney disease, unspecified Status: Acute (3) Acute metabolic encephalopathy Code(s): G93.41 - Metabolic encephalopathy Status: Resolved (4) Altered mental status Code(s): R41.82 - Altered mental status, unspecified Status: Resolved (5) Obesity Code(s): E66.9 - Obesity, unspecified Status: Chronic - Plan 05/28/2018 = patient is having regular bowel movements on a simplified laxative regimen. He will be encouraged to try and use a bedside commode rather than his bed for defecation. 05/29/2018 = no change to current plan. Patient has no new complaints. Bedside commode is pending. 05-30 STATES STANDING BUT NOT DOING MUCH MORE YET STILL HAVING BM IN BED Dysphagia with GERD symptoms S/P EGD with dilatation 04/30 S/P colonoscopy 05/02- poor prep- some rectal ulcer/ hemorrhoids Continue regular consistency diet Acute on chronic hypercapnic respiratory insufficiency History of PMH COPD, Obstructive sleep apnea. Does not tolerate CPAP mask due to the noise. Status post treatment of MRSA pneumonia Previously on home oxygen Continue CPAP at night, DuoNebs, encourage ambulation Appreciate pulmonology following h/o CHF not in exacerbation, CAD s/p CABG. echo from September showed EF 55-60% Continue ASA, Amiodarone 200mg BID, Coreg 12.5mg BID, Clonidine 0.1mg Q8, Plavix 75mg daily, Lasix 40 mg twice daily Hypertension Continue carvedilol 12.5 mg po bid , continue clonidine Diabetes Mellitus, type 2 Well controlled. Continue sliding-scale coverage Levemir 10 units twice daily Continue ADA/cardiac diet Scrotal pain Per Dr. Mendoza likely from anasarca. Ultrasound noted. Improved Hypotestosteronism Periodic testosterone dosing for energy level, initially diagnosed near 0 Left upper and lower extremity weakness Head CT on 02/25 shows no acute changes. CT of the neck shows C6-[address] of lumbar spine shows L3-4 herniation with L3 nerve root impingement Per NS, the disc herniation is nonsurgical. S/p course of steroids, improved Morbid obesity/debility Continue PT and OT daily to mobilize the patient more. Slowly improving WEIGHT LOSS Insomnia Continue Trazodone 100mg HS, Melatonin HS. D/c zolpidem. Constipation, chronic Laxative regimen simplified, senna 17.2 mg nightly scheduled his new solo therapy for regularity Iron deficiency anemia CBC stable Left Knee Pain possible strain, left knee x-ray unremarkable. Continue pain control. better range of motion continue PT Anxiety Acute on chronic. Continue Ativan as needed. DVT Prophylaxis Lovenox Code Status: FULL CODE Discussed Condition With: MIKHAIL RN AND PT AND CM Discharge Planning: AWAIT SAFE PLACEMENT (1) Respiratory failure with hypoxia and hypercapnia Qualifiers: Chronicity: chronic Qualified Code(s): J96.11 - Chronic respiratory failure with hypoxia; J96.12 - Chronic respiratory failure with hypercapnia
[2018-05-30] MEDS: Enoxaparin Inj 40 MG/0.4 ML Syringe SQ SCH (17:52)
--- NOTE | 2018-05-30 19:07 | P.PNPL ---
Subjective Interval history: 57 YO Obese male with TANA Works with PT Breathing about the same On 2LNC Does't want to use CPAP, makes too much noise" Physical Exam Vital signs: Vital Signs 05/29/18 20:00 05/29/18 20:28 05/30/18 00:00 Temperature 98.3 F 97.8 F Pulse Rate 60 65 54 L Respiratory Rate 18 18 18 Blood Pressure 128/58 L 112/56 L Pulse Oximetry 97 98 05/30/18 04:00 05/30/18 07:52 05/30/18 07:54 Temperature 97.9 F Pulse Rate 57 L 58 L 68 Respiratory Rate 18 18 18 Blood Pressure 100/56 L Pulse Oximetry 99 98 05/30/18 08:00 05/30/18 12:00 05/30/18 12:34 Temperature 97.4 F L 97.7 F Pulse Rate 61 57 L 59 L Respiratory Rate 18 18 18 Blood Pressure 120/68 112/64 Pulse Oximetry 98 96 05/30/18 16:00 05/30/18 18:48 05/30/18 18:49 Temperature 97.8 F Pulse Rate 55 L 59 L Respiratory Rate 18 18 Blood Pressure 123/60 Pulse Oximetry 96 96 Intake & Output 05/30/18 05/30/18 05/31/18 06:59 18:59 06:59 Intake Total 240 / 240 Output Total 0 / 0 Balance 240 / 240 Weight 134 kg Intake: Oral 240 / 240 Output: Urine 0 / 0 Other: Date of Last Bowel Movement 05/29/18 05/29/18 GENERAL: Obese WM, NAD SKIN: Warm and dry. HEAD: Normocephalic. EYES: No scleral icterus. No injection or drainage. NECK: Supple, trachea midline. No JVD or lymphadenopathy. CARDIOVASCULAR: Regular rate and rhythm without murmurs, gallops, or rubs. RESPIRATORY: Breath sounds equal bilaterally. No accessory muscle use. GASTROINTESTINAL: Abdomen soft, non-tender, nondistended. MUSCULOSKELETAL: No cyanosis, or edema. BACK: Nontender without obvious deformity. No CVA tenderness. Assessment and Plan - Plan IMPRESSION: TANA COPD CHF Morbid obesity Gen Weakness/ deconditioning PLAN: Supplement 02, 4LNC Keep sat 88-92% Diurease Aerosol nebs Encourage to use CPAP 10/5 at night Stable from pulm standpoint. Physical therapy
[2018-05-30] MEDS: traZODone 50 MG Tablet PO SCH (21:42)
[2018-05-31] MEDS: LORazepam 1 MG Tablet PO PRN ×4 (05:30→23:58)
[2018-05-31] MEDS: Nystatin 100,000 UNITS/GM Powder 15 GM Bottle TOPICAL SCH ×3 (05:31→22:09)
[2018-05-31] MEDS: Furosemide 40 MG Tablet PO SCH ×2 (09:58→19:59)
[2018-05-31] MEDS: Insulin NovoLOG Aspart Correctional Sugar Inj SQ SCH ×4 (09:58→22:07)
[2018-05-31] MEDS: guaiFENesin 600 MG ER Tablet PO SCH ×2 (09:58→20:01)
[2018-05-31] MEDS: Allopurinol 100 MG Tablet PO SCH (09:58)
[2018-05-31] MEDS: Gabapentin 100 MG Capsule PO SCH ×3 (09:59→17:54)
[2018-05-31] MEDS: Famotidine 20 MG Tablet PO SCH ×2 (09:59→20:01)
[2018-05-31] MEDS: Amiodarone 200 MG Tablet PO SCH ×2 (09:59→20:01)
[2018-05-31] MEDS: Methylnaltrexone Inj 12 MG/0.6 ML Vial SQ SCH (09:59)
[2018-05-31] MEDS: Ferrous Sulfate Drops 15 MG/ML 50 ML Bottle PO SCH (10:00)
[2018-05-31] MEDS: Lactic Acid (Ammonium Lactate) 12% Lotion 225 GM Bottle TOPICAL SCH ×2 (10:00→20:04)
[2018-05-31] MEDS: Calamine/Pramoxine Lotion 180 ML Bottle TOPICAL SCH ×2 (10:00→20:03)
[2018-05-31] MEDS: Sodium Chloride 0.65% Nasal Drops/Spray 30 ML Bottle EACH NARE SCH ×2 (10:00→20:04)
[2018-05-31] MEDS: Carvedilol 12.5 MG Tablet PO SCH ×2 (10:00→20:01)
[2018-05-31] MEDS: Insulin Detemir Inj 1,000 UNIT/10 ML Vial SQ SCH ×2 (10:01→22:06)
--- NOTE | 2018-05-31 14:57 | P.PNIM ---
Subjective Interval history: 9-5 STATES HE IS STANDING AND TAKING A FEW STEPS NOW STILL HAVING BMS IN BED NOT ABLE TO DO BEDSIDE COMMODE YET 9-6 MOVING BETTER STARTED STANDING HAVING GOOD BMS DW RN AND PT AND CM Physical Exam Vital signs: Vital Signs 05/30/18 16:00 05/30/18 18:48 05/30/18 18:49 Temperature 97.8 F Pulse Rate 55 L 59 L Respiratory Rate 18 18 Blood Pressure 123/60 Pulse Oximetry 96 96 05/30/18 20:00 05/31/18 00:00 05/31/18 00:01 Temperature 98.1 F 98.0 F Pulse Rate 56 L 58 L Respiratory Rate 18 18 Blood Pressure 117/56 L 105/57 L Pulse Oximetry 97 92 L 97 05/31/18 04:00 05/31/18 07:50 05/31/18 08:00 Temperature 98.2 F 97.9 F Pulse Rate 57 L 57 L 56 L Respiratory Rate 18 16 18 Blood Pressure 110/58 L 119/56 L Pulse Oximetry 92 L 95 98 05/31/18 12:00 Temperature 97.6 F Pulse Rate 66 Respiratory Rate 18 Blood Pressure 149/67 H Pulse Oximetry 95 Intake & Output 05/30/18 05/31/18 05/31/18 18:59 06:59 18:59 Intake Total 1290 / 1290 Balance 1290 / 1290 Weight 68.2 kg Intake: Oral 1290 / 1290 Other: # Voids 4 Date of Last Bowel Movement 05/29/18 05/30/18 05/31/18 # Bowel Movements 1 Narrative: GENERAL: Obese male, no distress. HEAD: Atraumatic. Normocephalic. EYES: Right eye missing. No scleral icterus. No injection or drainage. ENT: No nasal bleeding or discharge. Mucous membranes pink and moist. NECK: Trachea midline. No JVD. CARDIOVASCULAR: Regular rate and rhythm. S1, S2 NO S3 OR S4 RESPIRATORY: CTAB.DECREASED BREATH SOUNDS GASTROINTESTINAL: Abdomen soft, non-tender, nondistended. Hepatic and splenic margins not palpable. OBESE MUSCULOSKELETAL: Extremities without clubbing, cyanosis. Bilateral lower extremities with 1+ edema. No obvious deformities. NEUROLOGICAL: Awake, alert oriented 3. No focal deficits. Results - Labs CBC & Chem 7: 05/20/18 06:02 05/20/18 06:10 Laboratory Results - last 24 hr 05/31/18 11:27 POC Glucose 144 H - Procedures 04/30- EGD with dilatation 05/02- colonoscopy- small rectal ulcer, internal and external hemorrhoids Assessment and Plan - Assessment (1) Respiratory failure with hypoxia and hypercapnia Code(s): J96.91 - Respiratory failure, unspecified with hypoxia; J96.92 - Respiratory failure, unspecified with hypercapnia Status: Acute (2) Acute kidney injury superimposed on CKD Code(s): N17.9 - Acute kidney failure, unspecified; N18.9 - Chronic kidney disease, unspecified Status: Acute (3) Acute metabolic encephalopathy Code(s): G93.41 - Metabolic encephalopathy Status: Resolved (4) Altered mental status Code(s): R41.82 - Altered mental status, unspecified Status: Resolved (5) Obesity Code(s): E66.9 - Obesity, unspecified Status: Chronic - Plan 05/28/2018 = patient is having regular bowel movements on a simplified laxative regimen. He will be encouraged to try and use a bedside commode rather than his bed for defecation. 05/29/2018 = no change to current plan. Patient has no new complaints. Bedside commode is pending. 9 STATES STANDING BUT NOT DOING MUCH MORE YET STILL HAVING BM IN BED Dysphagia with GERD symptoms S/P EGD with dilatation 04/30 S/P colonoscopy 05/02- poor prep- some rectal ulcer/ hemorrhoids Continue regular consistency diet Acute on chronic hypercapnic respiratory insufficiency History of PMH COPD, Obstructive sleep apnea. Does not tolerate CPAP mask due to the noise. Status post treatment of MRSA pneumonia Previously on home oxygen Continue CPAP at night, DuMykel, encourage ambulation Appreciate pulmonology following h/o CHF not in exacerbation, CAD s/p CABG. echo from September showed EF 55-60% Continue ASA, Amiodarone 200mg BID, Coreg 12.5mg BID, Clonidine 0.1mg Q8, Plavix 75mg daily, Lasix 40 mg twice daily Hypertension Continue carvedilol 12.5 mg po bid , continue clonidine Diabetes Mellitus, type 2 Well controlled. Continue sliding-scale coverage Levemir 10 units twice daily Continue ADA/cardiac diet Scrotal pain Per Dr. Mendoza likely from anasarca. Ultrasound noted. Improved Hypotestosteronism Periodic testosterone dosing for energy level, initially diagnosed near 0 Left upper and lower extremity weakness Head CT on 02/25 shows no acute changes. CT of the neck shows C6-[address] of lumbar spine shows L3-4 herniation with L3 nerve root impingement Per NS, the disc herniation is nonsurgical. S/p course of steroids, improved Morbid obesity/debility Continue PT and OT daily to mobilize the patient more. Slowly improving WEIGHT LOSS Insomnia Continue Trazodone 100mg HS, Melatonin HS. D/c zolpidem. Constipation, chronic Laxative regimen simplified, senna 17.2 mg nightly scheduled his new solo therapy for regularity Iron deficiency anemia CBC stable Left Knee Pain possible strain, left knee x-ray unremarkable. Continue pain control. better range of motion continue PT Anxiety Acute on chronic. Continue Ativan as needed. DVT Prophylaxis Lovenox Code Status: FULL CODE Discussed Condition With: MIKHAIL RN AND PT AND CM Discharge Planning: AWAIT SAFE PLACEMENT (1) Respiratory failure with hypoxia and hypercapnia Qualifiers: Chronicity: chronic Qualified Code(s): J96.11 - Chronic respiratory failure with hypoxia; J96.12 - Chronic respiratory failure with hypercapnia
[2018-05-31] MEDS: Enoxaparin Inj 40 MG/0.4 ML Syringe SQ SCH (17:54)
--- NOTE | 2018-05-31 19:18 | P.PNPL ---
Subjective Interval history: 57 YO Obese male with TANA Works with PT Breathing about the same On 2LNC feels getting better with PT Physical Exam Vital signs: Vital Signs 05/30/18 20:00 05/31/18 00:00 05/31/18 00:01 Temperature 98.1 F 98.0 F Pulse Rate 56 L 58 L Respiratory Rate 18 18 Blood Pressure 117/56 L 105/57 L Pulse Oximetry 97 92 L 97 05/31/18 04:00 05/31/18 07:50 05/31/18 08:00 Temperature 98.2 F 97.9 F Pulse Rate 57 L 57 L 56 L Respiratory Rate 18 16 18 Blood Pressure 110/58 L 119/56 L Pulse Oximetry 92 L 95 98 05/31/18 12:00 05/31/18 16:00 Temperature 97.6 F 97.6 F Pulse Rate 66 66 Respiratory Rate 18 18 Blood Pressure 149/67 H 149/67 H Pulse Oximetry 95 95 Intake & Output 05/31/18 05/31/18 06/01/18 06:59 18:59 06:59 Intake Total 1290 / 1290 840 / 840 Balance 1290 / 1290 840 / 840 Weight 68.2 kg Intake: Oral 1290 / 1290 840 / 840 Other: # Voids 4 # Incontinent Voids 3 Date of Last Bowel Movement 05/30/18 05/31/18 # Bowel Movements 1 1 GENERAL: Obese WM, NAD SKIN: Warm and dry. HEAD: Normocephalic. EYES: No scleral icterus. No injection or drainage. NECK: Supple, trachea midline. No JVD or lymphadenopathy. CARDIOVASCULAR: Regular rate and rhythm without murmurs, gallops, or rubs. RESPIRATORY: Breath sounds equal bilaterally. No accessory muscle use. GASTROINTESTINAL: Abdomen soft, non-tender, nondistended. MUSCULOSKELETAL: No cyanosis, or edema. BACK: Nontender without obvious deformity. No CVA tenderness. Assessment and Plan - Plan IMPRESSION: TANA COPD CHF Morbid obesity Gen Weakness/ deconditioning PLAN: Supplement 02, 4LNC Keep sat 88-92% Diurease Aerosol nebs Encourage to use CPAP 10/5 at night
[2018-05-31] MEDS: traZODone 50 MG Tablet PO SCH (19:59)
[2018-06-01] MEDS: Nystatin 100,000 UNITS/GM Powder 15 GM Bottle TOPICAL SCH ×4 (05:44→22:01)
[2018-06-01] MEDS: LORazepam 1 MG Tablet PO PRN ×3 (05:55→20:32)
[2018-06-01] MEDS: Insulin NovoLOG Aspart Correctional Sugar Inj SQ SCH ×4 (09:23→20:56)
[2018-06-01] MEDS: Amiodarone 200 MG Tablet PO SCH ×2 (09:26→20:39)
[2018-06-01] MEDS: Allopurinol 100 MG Tablet PO SCH (09:26)
[2018-06-01] MEDS: Furosemide 40 MG Tablet PO SCH ×2 (09:27→20:33)
[2018-06-01] MEDS: Carvedilol 12.5 MG Tablet PO SCH ×2 (09:27→20:39)
[2018-06-01] MEDS: Famotidine 20 MG Tablet PO SCH ×2 (09:27→20:33)
[2018-06-01] MEDS: guaiFENesin 600 MG ER Tablet PO SCH ×2 (09:27→20:35)
[2018-06-01] MEDS: Gabapentin 100 MG Capsule PO SCH ×3 (09:28→18:04)
[2018-06-01] MEDS: Insulin Detemir Inj 1,000 UNIT/10 ML Vial SQ SCH ×2 (09:30→20:54)
[2018-06-01] MEDS: Methylnaltrexone Inj 12 MG/0.6 ML Vial SQ SCH (09:32)
[2018-06-01] MEDS: Lactic Acid (Ammonium Lactate) 12% Lotion 225 GM Bottle TOPICAL SCH ×2 (09:34→20:55)
[2018-06-01] MEDS: Sodium Chloride 0.65% Nasal Drops/Spray 30 ML Bottle EACH NARE SCH ×2 (09:36→20:54)
[2018-06-01] MEDS: Calamine/Pramoxine Lotion 180 ML Bottle TOPICAL SCH ×2 (09:37→20:56)
--- NOTE | 2018-06-01 11:10 | P.PNIM ---
Subjective Interval history: 9-5 STATES HE IS STANDING AND TAKING A FEW STEPS NOW STILL HAVING BMS IN BED NOT ABLE TO DO BEDSIDE COMMODE YET 9-6 MOVING BETTER STARTED STANDING HAVING GOOD BMS DW RN AND PT AND CM 9-7 NO NEW ISSUES DW RN AND PT AND CM AWAIT PLACEMENT Physical Exam Vital signs: Vital Signs 05/31/18 12:00 05/31/18 16:00 05/31/18 19:47 Temperature 97.6 F 97.6 F Pulse Rate 66 66 53 L Respiratory Rate 18 18 17 Blood Pressure 149/67 H 149/67 H Pulse Oximetry 95 95 99 05/31/18 19:55 05/31/18 20:00 06/01/18 00:00 Temperature 97.2 F L 97.3 F L Pulse Rate 62 57 L Respiratory Rate 18 18 Blood Pressure 119/62 107/57 L Pulse Oximetry 97 100 97 06/01/18 04:00 06/01/18 07:00 06/01/18 07:36 Temperature 98.7 F Pulse Rate 65 65 Respiratory Rate 21 16 Blood Pressure 101/53 L Pulse Oximetry 98 98 95 06/01/18 08:00 Temperature 97.9 F Pulse Rate 61 Respiratory Rate 17 Blood Pressure 106/53 L Pulse Oximetry 97 Intake & Output 05/31/18 06/01/18 06/01/18 18:59 06:59 18:59 Intake Total 840 / 840 904 / 904 Output Total 0 / 0 Balance 840 / 840 904 / 904 Weight 134.8 kg Intake: Oral 840 / 840 904 / 904 Output: Urine 0 / 0 Other: # Voids 3 # Incontinent Voids 3 4 Date of Last Bowel Movement 05/31/18 05/31/18 # Bowel Movements 1 # Incontinent Bowel Movements 1 Narrative: GENERAL: Obese male, no distress. HEAD: Atraumatic. Normocephalic. EYES: Right eye missing. No scleral icterus. No injection or drainage. ENT: No nasal bleeding or discharge. Mucous membranes pink and moist. NECK: Trachea midline. No JVD. CARDIOVASCULAR: Regular rate and rhythm. S1, S2 NO S3 OR S4 RESPIRATORY: CTAB.DECREASED BREATH SOUNDS GASTROINTESTINAL: Abdomen soft, non-tender, nondistended. Hepatic and splenic margins not palpable. OBESE MUSCULOSKELETAL: Extremities without clubbing, cyanosis. Bilateral lower extremities with 1+ edema. No obvious deformities. NEUROLOGICAL: Awake, alert oriented 3. No focal deficits. Results - Labs CBC & Chem 7: 05/20/18 06:02 05/20/18 06:10 Laboratory Results - last 24 hr 05/31/18 05/31/18 05/31/18 11:27 17:48 19:57 POC Glucose 144 H 220 H 199 H 06/01/18 08:04 POC Glucose 114 H - Procedures 04/30- EGD with dilatation 05/02- colonoscopy- small rectal ulcer, internal and external hemorrhoids Assessment and Plan - Assessment (1) Respiratory failure with hypoxia and hypercapnia Code(s): J96.91 - Respiratory failure, unspecified with hypoxia; J96.92 - Respiratory failure, unspecified with hypercapnia Status: Acute (2) Acute kidney injury superimposed on CKD Code(s): N17.9 - Acute kidney failure, unspecified; N18.9 - Chronic kidney disease, unspecified Status: Acute (3) Acute metabolic encephalopathy Code(s): G93.41 - Metabolic encephalopathy Status: Resolved (4) Altered mental status Code(s): R41.82 - Altered mental status, unspecified Status: Resolved (5) Obesity Code(s): E66.9 - Obesity, unspecified Status: Chronic - Plan 05/28/2018 = patient is having regular bowel movements on a simplified laxative regimen. He will be encouraged to try and use a bedside commode rather than his bed for defecation. 05/29/2018 = no change to current plan. Patient has no new complaints. Bedside commode is pending. 9-5 STATES STANDING BUT NOT DOING MUCH MORE YET STILL HAVING BM IN BED 9-6 WORKING WITH PT 9-7 STILL STRIVING TO MOVE BETTER Dysphagia with GERD symptoms S/P EGD with dilatation 04/30 S/P colonoscopy 05/02- poor prep- some rectal ulcer/ hemorrhoids Continue regular consistency diet Acute on chronic hypercapnic respiratory insufficiency History of PMH COPD, Obstructive sleep apnea. Does not tolerate CPAP mask due to the noise. Status post treatment of MRSA pneumonia Previously on home oxygen Continue CPAP at night, DuoNebs, encourage ambulation Appreciate pulmonology following h/o CHF not in exacerbation, CAD s/p CABG. echo from September showed EF 55-60% Continue ASA, Amiodarone 200mg BID, Coreg 12.5mg BID, Clonidine 0.1mg Q8, Plavix 75mg daily, Lasix 40 mg twice daily Hypertension Continue carvedilol 12.5 mg po bid , continue clonidine Diabetes Mellitus, type 2 Well controlled. Continue sliding-scale coverage Levemir 10 units twice daily Continue ADA/cardiac diet Scrotal pain Per Dr. Mendoza likely from anasarca. Ultrasound noted. Improved Hypotestosteronism Periodic testosterone dosing for energy level, initially diagnosed near 0 Left upper and lower extremity weakness Head CT on 02/25 shows no acute changes. CT of the neck shows C6-[address] of lumbar spine shows L3-4 herniation with L3 nerve root impingement Per NS, the disc herniation is nonsurgical. S/p course of steroids, improved Morbid obesity/debility Continue PT and OT daily to mobilize the patient more. Slowly improving WEIGHT LOSS Insomnia Continue Trazodone 100mg HS, Melatonin HS. D/c zolpidem. Constipation, chronic Laxative regimen simplified, senna 17.2 mg nightly scheduled his new solo therapy for regularity Iron deficiency anemia CBC stable Left Knee Pain possible strain, left knee x-ray unremarkable. Continue pain control. better range of motion continue PT Anxiety Acute on chronic. Continue Ativan as needed. DVT Prophylaxis Lovenox Code Status: FULL CODE Discussed Condition With: RN AND PT AND CM Discharge Planning: AWAIT SAFE PLACEMENT (1) Respiratory failure with hypoxia and hypercapnia Qualifiers: Chronicity: chronic Qualified Code(s): J96.11 - Chronic respiratory failure with hypoxia; J96.12 - Chronic respiratory failure with hypercapnia
[2018-06-01] MEDS: Ferrous Sulfate Drops 15 MG/ML 50 ML Bottle PO SCH (13:12)
[2018-06-01] MEDS: Enoxaparin Inj 40 MG/0.4 ML Syringe SQ SCH (18:04)
--- NOTE | 2018-06-01 18:40 | P.PNPL ---
Subjective Interval history: 57 YO Obese male with TANA Works with PT Breathing about the same On 2LNC no new complaint Physical Exam Vital signs: Vital Signs 05/31/18 19:47 05/31/18 19:55 05/31/18 20:00 Temperature 97.2 F L Pulse Rate 53 L 62 Respiratory Rate 17 18 Blood Pressure 119/62 Pulse Oximetry 99 97 100 06/01/18 00:00 06/01/18 04:00 06/01/18 07:00 Temperature 97.3 F L 98.7 F Pulse Rate 57 L 65 Respiratory Rate 18 21 Blood Pressure 107/57 L 101/53 L Pulse Oximetry 97 98 98 06/01/18 07:36 06/01/18 08:00 06/01/18 12:00 Temperature 97.9 F 98.1 F Pulse Rate 65 61 61 Respiratory Rate 16 17 18 Blood Pressure 106/53 L 101/59 L Pulse Oximetry 95 97 99 06/01/18 16:00 Temperature 98.1 F Pulse Rate 54 L Respiratory Rate 17 Blood Pressure 100/53 L Pulse Oximetry 99 Intake & Output 05/31/18 06/01/18 06/01/18 18:59 06:59 18:59 Intake Total 840 / 840 904 / 904 Output Total 0 / 0 Balance 840 / 840 904 / 904 Weight 134.8 kg Intake: Oral 840 / 840 904 / 904 Output: Urine 0 / 0 Other: # Voids 3 # Incontinent Voids 3 4 Date of Last Bowel Movement 05/31/18 05/31/18 # Bowel Movements 1 # Incontinent Bowel Movements 1 GENERAL: Obese Wm, NAD SKIN: Warm and dry. HEAD: Normocephalic. EYES: No scleral icterus. No injection or drainage. NECK: Supple, trachea midline. No JVD or lymphadenopathy. CARDIOVASCULAR: Regular rate and rhythm without murmurs, gallops, or rubs. RESPIRATORY: Breath sounds equal bilaterally. No accessory muscle use. GASTROINTESTINAL: Abdomen soft, non-tender, nondistended. MUSCULOSKELETAL: No cyanosis, or edema. BACK: Nontender without obvious deformity. No CVA tenderness. Assessment and Plan - Plan IMPRESSION: TANA COPD CHF Morbid obesity Gen Weakness/ deconditioning PLAN: Supplement 02, 2LNC Keep sat 88-92% Diurease Aerosol nebs Encourage to use CPAP 10/5 at night Physical therapy
[2018-06-01] MEDS: traZODone 50 MG Tablet PO SCH (20:33)
[2018-06-02] MEDS: LORazepam 1 MG Tablet PO PRN ×4 (02:11→22:31)
[2018-06-02] MEDS: Nystatin 100,000 UNITS/GM Powder 15 GM Bottle TOPICAL SCH ×3 (06:14→22:33)
[2018-06-02] MEDS: Allopurinol 100 MG Tablet PO SCH (09:11)
[2018-06-02] MEDS: Insulin NovoLOG Aspart Correctional Sugar Inj SQ SCH ×4 (09:11→22:33)
[2018-06-02] MEDS: Methylnaltrexone Inj 12 MG/0.6 ML Vial SQ SCH (09:11)
[2018-06-02] MEDS: guaiFENesin 600 MG ER Tablet PO SCH ×2 (09:12→22:30)
[2018-06-02] MEDS: Famotidine 20 MG Tablet PO SCH ×2 (09:12→22:30)
[2018-06-02] MEDS: Gabapentin 100 MG Capsule PO SCH ×3 (09:13→17:50)
[2018-06-02] MEDS: Amiodarone 200 MG Tablet PO SCH ×2 (09:13→22:31)
[2018-06-02] MEDS: Carvedilol 12.5 MG Tablet PO SCH ×2 (09:13→22:31)
[2018-06-02] MEDS: Furosemide 40 MG Tablet PO SCH ×2 (09:13→22:31)
[2018-06-02] MEDS: Sodium Chloride 0.65% Nasal Drops/Spray 30 ML Bottle EACH NARE SCH ×2 (09:14→22:32)
[2018-06-02] MEDS: Ferrous Sulfate Drops 15 MG/ML 50 ML Bottle PO SCH (09:14)
[2018-06-02] MEDS: Calamine/Pramoxine Lotion 180 ML Bottle TOPICAL SCH ×2 (09:14→22:32)
[2018-06-02] MEDS: Insulin Detemir Inj 1,000 UNIT/10 ML Vial SQ SCH ×2 (09:15→22:29)
[2018-06-02] MEDS: Lactic Acid (Ammonium Lactate) 12% Lotion 225 GM Bottle TOPICAL SCH ×2 (09:16→22:32)
--- NOTE | 2018-06-02 14:50 | P.PNPL ---
Subjective Interval history: 57 YO Obese male with TANA Works with PT Breathing about the same On 2LNC Physical Exam Vital signs: Vital Signs 06/01/18 16:00 06/01/18 19:19 06/01/18 20:00 Temperature 98.1 F 97.2 F L Pulse Rate 54 L 54 L 54 L Respiratory Rate 17 18 16 Blood Pressure 100/53 L 115/57 L Pulse Oximetry 99 99 99 06/02/18 00:00 06/02/18 04:00 06/02/18 08:00 Temperature 97.9 F 97.5 F L 97.6 F Pulse Rate 59 L 61 60 Respiratory Rate 20 20 18 Blood Pressure 101/55 L 105/55 L 108/58 L Pulse Oximetry 97 97 97 06/02/18 08:27 06/02/18 12:00 Temperature 98.1 F Pulse Rate 61 59 L Respiratory Rate 20 18 Blood Pressure 121/61 Pulse Oximetry 97 98 Intake & Output 06/01/18 06/02/18 06/02/18 18:59 06:59 18:59 Intake Total 640 / 640 Balance 640 / 640 Weight 137 kg Intake: Oral 640 / 640 Other: # Voids 3 Date of Last Bowel Movement 06/01/18 GENERAL: Obese WM, NAD SKIN: Warm and dry. HEAD: Normocephalic. EYES: No scleral icterus. No injection or drainage. NECK: Supple, trachea midline. No JVD or lymphadenopathy. CARDIOVASCULAR: Regular rate and rhythm without murmurs, gallops, or rubs. RESPIRATORY: Breath sounds equal bilaterally. No accessory muscle use. GASTROINTESTINAL: Abdomen soft, non-tender, nondistended. MUSCULOSKELETAL: No cyanosis, or edema. BACK: Nontender without obvious deformity. No CVA tenderness. Assessment and Plan - Plan IMPRESSION: TANA COPD CHF Morbid obesity Gen Weakness/ deconditioning PLAN: Supplement 02, 2LNC Keep sat 88-92% Diurease Aerosol nebs Encourage to use CPAP
--- NOTE | 2018-06-02 15:19 | P.PNIM ---
Subjective Interval history: 9-5 STATES HE IS STANDING AND TAKING A FEW STEPS NOW STILL HAVING BMS IN BED NOT ABLE TO DO BEDSIDE COMMODE YET 9-6 MOVING BETTER STARTED STANDING HAVING GOOD BMS DW RN AND PT AND CM 9-7 NO NEW ISSUES DW RN AND PT AND CM AWAIT PLACEMENT 9-8 HAVING GOOD BOWEL MOVEMENTS DW RN AND PT AND CM INCREASE ACTIVITY AWAIT PLACEMENT Physical Exam Vital signs: Vital Signs 06/01/18 16:00 06/01/18 19:19 06/01/18 20:00 Temperature 98.1 F 97.2 F L Pulse Rate 54 L 54 L 54 L Respiratory Rate 17 18 16 Blood Pressure 100/53 L 115/57 L Pulse Oximetry 99 99 99 06/02/18 00:00 06/02/18 04:00 06/02/18 08:00 Temperature 97.9 F 97.5 F L 97.6 F Pulse Rate 59 L 61 60 Respiratory Rate 20 20 18 Blood Pressure 101/55 L 105/55 L 108/58 L Pulse Oximetry 97 97 97 06/02/18 08:27 06/02/18 12:00 Temperature 98.1 F Pulse Rate 61 59 L Respiratory Rate 20 18 Blood Pressure 121/61 Pulse Oximetry 97 98 Intake & Output 06/01/18 06/02/18 06/02/18 18:59 06:59 18:59 Intake Total 640 / 640 Balance 640 / 640 Weight 137 kg Intake: Oral 640 / 640 Other: # Voids 3 Date of Last Bowel Movement 06/01/18 Narrative: GENERAL: Obese male, no distress. HEAD: Atraumatic. Normocephalic. EYES: Right eye missing. No scleral icterus. No injection or drainage. ENT: No nasal bleeding or discharge. Mucous membranes pink and moist. NECK: Trachea midline. No JVD. CARDIOVASCULAR: Regular rate and rhythm. S1, S2 NO S3 OR S4 RESPIRATORY: CTAB.DECREASED BREATH SOUNDS GASTROINTESTINAL: Abdomen soft, non-tender, nondistended. Hepatic and splenic margins not palpable. OBESE MUSCULOSKELETAL: Extremities without clubbing, cyanosis. Bilateral lower extremities with 1+ edema. No obvious deformities. NEUROLOGICAL: Awake, alert oriented 3. No focal deficits. Results - Labs CBC & Chem 7: 05/20/18 06:02 05/20/18 06:10 Laboratory Results - last 24 hr 06/01/18 20:32 POC Glucose 141 H - Procedures 04/30- EGD with dilatation 05/02- colonoscopy- small rectal ulcer, internal and external hemorrhoids Assessment and Plan - Assessment (1) Respiratory failure with hypoxia and hypercapnia Code(s): J96.91 - Respiratory failure, unspecified with hypoxia; J96.92 - Respiratory failure, unspecified with hypercapnia Status: Acute (2) Acute kidney injury superimposed on CKD Code(s): N17.9 - Acute kidney failure, unspecified; N18.9 - Chronic kidney disease, unspecified Status: Acute (3) Acute metabolic encephalopathy Code(s): G93.41 - Metabolic encephalopathy Status: Resolved (4) Altered mental status Code(s): R41.82 - Altered mental status, unspecified Status: Resolved (5) Obesity Code(s): E66.9 - Obesity, unspecified Status: Chronic - Plan 05/28/2018 = patient is having regular bowel movements on a simplified laxative regimen. He will be encouraged to try and use a bedside commode rather than his bed for defecation. 05/29/2018 = no change to current plan. Patient has no new complaints. Bedside commode is pending. 9-5 STATES STANDING BUT NOT DOING MUCH MORE YET STILL HAVING BM IN BED - WORKING WITH PT 9-7 STILL STRIVING TO MOVE BETTER Dysphagia with GERD symptoms S/P EGD with dilatation 04/30 S/P colonoscopy 05/02- poor prep- some rectal ulcer/ hemorrhoids Continue regular consistency diet Acute on chronic hypercapnic respiratory insufficiency History of PMH COPD, Obstructive sleep apnea. Does not tolerate CPAP mask due to the noise. Status post treatment of MRSA pneumonia Previously on home oxygen Continue CPAP at night, DuoNebs, encourage ambulation Appreciate pulmonology following h/o CHF not in exacerbation, CAD s/p CABG. echo from September showed EF 55-60% Continue ASA, Amiodarone 200mg BID, Coreg 12.5mg BID, Clonidine 0.1mg Q8, Plavix 75mg daily, Lasix 40 mg twice daily Hypertension Continue carvedilol 12.5 mg po bid , continue clonidine Diabetes Mellitus, type 2 Well controlled. Continue sliding-scale coverage Levemir 10 units twice daily Continue ADA/cardiac diet Scrotal pain Per Dr. Mendoza likely from anasarca. Ultrasound noted. Improved Hypotestosteronism Periodic testosterone dosing for energy level, initially diagnosed near 0 Left upper and lower extremity weakness Head CT on 02/25 shows no acute changes. CT of the neck shows C6-[address] of lumbar spine shows L3-4 herniation with L3 nerve root impingement Per NS, the disc herniation is nonsurgical. S/p course of steroids, improved Morbid obesity/debility Continue PT and OT daily to mobilize the patient more. Slowly improving WEIGHT LOSS Insomnia Continue Trazodone 100mg HS, Melatonin HS. D/c zolpidem. Constipation, chronic Laxative regimen simplified, senna 17.2 mg nightly scheduled his new solo therapy for regularity Iron deficiency anemia CBC stable Left Knee Pain possible strain, left knee x-ray unremarkable. Continue pain control. better range of motion continue PT Anxiety Acute on chronic. Continue Ativan as needed. DVT Prophylaxis Lovenox Discharge Planning: AWAIT SAFE PLACEMENT (1) Respiratory failure with hypoxia and hypercapnia Qualifiers: Chronicity: chronic Qualified Code(s): J96.11 - Chronic respiratory failure with hypoxia; J96.12 - Chronic respiratory failure with hypercapnia
[2018-06-02] MEDS: Enoxaparin Inj 40 MG/0.4 ML Syringe SQ SCH (17:50)
[2018-06-02] MEDS: traZODone 50 MG Tablet PO SCH (22:31)
[2018-06-03] MEDS: Nystatin 100,000 UNITS/GM Powder 15 GM Bottle TOPICAL SCH ×3 (06:12→22:07)
[2018-06-03] MEDS: LORazepam 1 MG Tablet PO PRN ×3 (06:13→18:15)
[2018-06-03] MEDS: Methylnaltrexone Inj 12 MG/0.6 ML Vial SQ SCH (09:22)
[2018-06-03] MEDS: Amiodarone 200 MG Tablet PO SCH ×2 (09:23→22:05)
[2018-06-03] MEDS: Famotidine 20 MG Tablet PO SCH ×2 (09:23→22:05)
[2018-06-03] MEDS: Allopurinol 100 MG Tablet PO SCH (09:24)
[2018-06-03] MEDS: Carvedilol 12.5 MG Tablet PO SCH ×2 (09:24→22:06)
[2018-06-03] MEDS: Furosemide 40 MG Tablet PO SCH ×2 (09:24→22:06)
[2018-06-03] MEDS: guaiFENesin 600 MG ER Tablet PO SCH ×2 (09:24→22:05)
[2018-06-03] MEDS: Gabapentin 100 MG Capsule PO SCH ×3 (09:25→18:15)
[2018-06-03] MEDS: Insulin NovoLOG Aspart Correctional Sugar Inj SQ SCH ×4 (09:25→22:06)
[2018-06-03] MEDS: Calamine/Pramoxine Lotion 180 ML Bottle TOPICAL SCH ×2 (09:26→22:06)
[2018-06-03] MEDS: Sodium Chloride 0.65% Nasal Drops/Spray 30 ML Bottle EACH NARE SCH ×2 (09:26→22:04)
[2018-06-03] MEDS: Insulin Detemir Inj 1,000 UNIT/10 ML Vial SQ SCH ×2 (09:27→22:30)
[2018-06-03] MEDS: Ferrous Sulfate Drops 15 MG/ML 50 ML Bottle PO SCH (09:27)
[2018-06-03] MEDS: Lactic Acid (Ammonium Lactate) 12% Lotion 225 GM Bottle TOPICAL SCH ×2 (09:28→22:06)
--- NOTE | 2018-06-03 11:42 | P.PNIM ---
Subjective Interval history: 9-5 STATES HE IS STANDING AND TAKING A FEW STEPS NOW STILL HAVING BMS IN BED NOT ABLE TO DO BEDSIDE COMMODE YET 9-6 MOVING BETTER STARTED STANDING HAVING GOOD BMS DW RN AND PT AND CM 9-7 NO NEW ISSUES DW RN AND PT AND CM AWAIT PLACEMENT 9-8 HAVING GOOD BOWEL MOVEMENTS DW RN AND PT AND CM INCREASE ACTIVITY AWAIT PLACEMENT 9-9 INCREASE ACTIVITY NO NEW COMPLAINTS DW RN AND PT AND CM Physical Exam Vital signs: Vital Signs 06/02/18 12:00 06/02/18 16:00 06/02/18 20:00 Temperature 98.1 F 98.3 F 98.1 F Pulse Rate 59 L 57 L 63 Respiratory Rate 18 18 20 Blood Pressure 121/61 123/65 106/60 Pulse Oximetry 98 97 100 06/02/18 20:12 06/03/18 00:00 06/03/18 04:00 Temperature 98.3 F 97.7 F Pulse Rate 64 60 56 L Respiratory Rate 16 20 20 Blood Pressure 109/55 L 112/55 L Pulse Oximetry 96 97 97 06/03/18 08:00 Temperature 98.1 F Pulse Rate 59 L Respiratory Rate 18 Blood Pressure 111/56 L Pulse Oximetry 97 Intake & Output 06/02/18 06/03/18 06/03/18 18:59 06:59 18:59 Intake Total 720 / 720 1250 / 1250 Balance 720 / 720 1250 / 1250 Weight 137.1 kg Intake: Oral 720 / 720 1250 / 1250 Other: # Voids 4 4 Date of Last Bowel Movement 06/02/18 # Bowel Movements 1 Narrative: GENERAL: Obese male, no distress. HEAD: Atraumatic. Normocephalic. EYES: Right eye missing. No scleral icterus. No injection or drainage. ENT: No nasal bleeding or discharge. Mucous membranes pink and moist. NECK: Trachea midline. No JVD. CARDIOVASCULAR: Regular rate and rhythm. S1, S2 NO S3 OR S4 RESPIRATORY: CTAB.DECREASED BREATH SOUNDS GASTROINTESTINAL: Abdomen soft, non-tender, nondistended. Hepatic and splenic margins not palpable. OBESE MUSCULOSKELETAL: Extremities without clubbing, cyanosis. Bilateral lower extremities with 1+ edema. No obvious deformities. NEUROLOGICAL: Awake, alert oriented 3. No focal deficits. Results - Labs CBC & Chem 7: 05/20/18 06:02 05/20/18 06:10 Laboratory Results - last 24 hr 06/02/18 06/02/18 06/03/18 17:53 22:29 07:48 POC Glucose 106 198 H 125 H - Procedures 04/30- EGD with dilatation 05/02- colonoscopy- small rectal ulcer, internal and external hemorrhoids Assessment and Plan - Assessment (1) Respiratory failure with hypoxia and hypercapnia Code(s): J96.91 - Respiratory failure, unspecified with hypoxia; J96.92 - Respiratory failure, unspecified with hypercapnia Status: Acute (2) Acute kidney injury superimposed on CKD Code(s): N17.9 - Acute kidney failure, unspecified; N18.9 - Chronic kidney disease, unspecified Status: Acute (3) Acute metabolic encephalopathy Code(s): G93.41 - Metabolic encephalopathy Status: Resolved (4) Altered mental status Code(s): R41.82 - Altered mental status, unspecified Status: Resolved (5) Obesity Code(s): E66.9 - Obesity, unspecified Status: Chronic - Plan 05/28/2018 = patient is having regular bowel movements on a simplified laxative regimen. He will be encouraged to try and use a bedside commode rather than his bed for defecation. 05/29/2018 = no change to current plan. Patient has no new complaints. Bedside commode is pending. 9-5 STATES STANDING BUT NOT DOING MUCH MORE YET STILL HAVING BM IN BED 9-6 WORKING WITH PT 9-7 STILL STRIVING TO MOVE BETTER Dysphagia with GERD symptoms S/P EGD with dilatation 04/30 S/P colonoscopy 05/02- poor prep- some rectal ulcer/ hemorrhoids Continue regular consistency diet Acute on chronic hypercapnic respiratory insufficiency History of PMH COPD, Obstructive sleep apnea. Does not tolerate CPAP mask due to the noise. Status post treatment of MRSA pneumonia Previously on home oxygen Continue CPAP at night, DuoNebs, encourage ambulation Appreciate pulmonology following h/o CHF not in exacerbation, CAD s/p CABG. echo from September showed EF 55-60% Continue ASA, Amiodarone 200mg BID, Coreg 12.5mg BID, Clonidine 0.1mg Q8, Plavix 75mg daily, Lasix 40 mg twice daily Hypertension Continue carvedilol 12.5 mg po bid , continue clonidine Diabetes Mellitus, type 2 Well controlled. Continue sliding-scale coverage Levemir 10 units twice daily Continue ADA/cardiac diet Scrotal pain Per Dr. Mendoza likely from anasarca. Ultrasound noted. Improved Hypotestosteronism Periodic testosterone dosing for energy level, initially diagnosed near 0 Left upper and lower extremity weakness Head CT on 02/25 shows no acute changes. CT of the neck shows C6-[address] of lumbar spine shows L3-4 herniation with L3 nerve root impingement Per NS, the disc herniation is nonsurgical. S/p course of steroids, improved Morbid obesity/debility Continue PT and OT daily to mobilize the patient more. Slowly improving WEIGHT LOSS Insomnia Continue Trazodone 100mg HS, Melatonin HS. D/c zolpidem. Constipation, chronic Laxative regimen simplified, senna 17.2 mg nightly scheduled his new solo therapy for regularity Iron deficiency anemia CBC stable Left Knee Pain possible strain, left knee x-ray unremarkable. Continue pain control. better range of motion continue PT Anxiety Acute on chronic. Continue Ativan as needed. DVT Prophylaxis Lovenox Code Status: FULL CODE Discussed Condition With: PT AND RN AND CM Discharge Planning: AWAIT SAFE PLACEMENT (1) Respiratory failure with hypoxia and hypercapnia Qualifiers: Chronicity: chronic Qualified Code(s): J96.11 - Chronic respiratory failure with hypoxia; J96.12 - Chronic respiratory failure with hypercapnia
--- NOTE | 2018-06-03 16:12 | P.PNPL ---
Subjective Interval history: 57 YO Obese male with TANA Works with PT Breathing about the same On 2LNC Feels stronger, " I can get up on my own" Physical Exam Vital signs: Vital Signs 06/02/18 20:00 06/02/18 20:12 06/03/18 00:00 Temperature 98.1 F 98.3 F Pulse Rate 63 64 60 Respiratory Rate 20 16 20 Blood Pressure 106/60 109/55 L Pulse Oximetry 100 96 97 06/03/18 04:00 06/03/18 07:30 06/03/18 08:00 Temperature 97.7 F 98.1 F Pulse Rate 56 L 57 L 59 L Respiratory Rate 20 18 18 Blood Pressure 112/55 L 111/56 L Pulse Oximetry 97 97 06/03/18 12:00 06/03/18 12:55 06/03/18 15:35 Temperature 98.4 F Pulse Rate 67 78 Respiratory Rate 18 20 Blood Pressure 113/62 Pulse Oximetry 95 95 Intake & Output 06/02/18 06/03/18 06/03/18 18:59 06:59 18:59 Intake Total 720 / 720 1250 / 1250 Balance 720 / 720 1250 / 1250 Weight 137.1 kg Intake: Oral 720 / 720 1250 / 1250 Other: # Voids 4 4 Date of Last Bowel Movement 06/02/18 # Bowel Movements 1 GENERAL: Obese WM sitting at the bedside. SKIN: Warm and dry. HEAD: Normocephalic. EYES: No scleral icterus. No injection or drainage. NECK: Supple, trachea midline. No JVD or lymphadenopathy. CARDIOVASCULAR: Regular rate and rhythm without murmurs, gallops, or rubs. RESPIRATORY: Breath sounds equal bilaterally. No accessory muscle use. GASTROINTESTINAL: Abdomen soft, non-tender, nondistended. MUSCULOSKELETAL: No cyanosis, or edema. BACK: Nontender without obvious deformity. No CVA tenderness. Assessment and Plan - Plan IMPRESSION: TANA COPD CHF Morbid obesity Gen Weakness/ deconditioning PLAN: Supplement 02, 2LNC Keep sat 88-92% Diurease Aerosol nebs Encourage to use CPAP
[2018-06-03] MEDS: Enoxaparin Inj 40 MG/0.4 ML Syringe SQ SCH (18:15)
[2018-06-03] MEDS: traZODone 50 MG Tablet PO SCH (22:05)
[2018-06-03] MEDS: Melatonin 5 MG Tablet PO PRN (22:07)
[2018-06-04] MEDS: Nystatin 100,000 UNITS/GM Powder 15 GM Bottle TOPICAL SCH ×2 (06:35→14:36)
[2018-06-04] MEDS: LORazepam 1 MG Tablet PO PRN ×3 (08:29→20:36)
[2018-06-04] MEDS: guaiFENesin 600 MG ER Tablet PO SCH ×2 (08:30→20:35)
[2018-06-04] MEDS: Allopurinol 100 MG Tablet PO SCH (08:30)
[2018-06-04] MEDS: Furosemide 40 MG Tablet PO SCH ×2 (08:31→20:36)
[2018-06-04] MEDS: Famotidine 20 MG Tablet PO SCH ×2 (08:31→20:36)
[2018-06-04] MEDS: Gabapentin 100 MG Capsule PO SCH ×3 (08:31→18:42)
[2018-06-04] MEDS: Sodium Chloride 0.65% Nasal Drops/Spray 30 ML Bottle EACH NARE SCH ×2 (08:31→20:36)
[2018-06-04] MEDS: Carvedilol 12.5 MG Tablet PO SCH ×2 (08:32→20:41)
[2018-06-04] MEDS: Insulin Detemir Inj 1,000 UNIT/10 ML Vial SQ SCH ×2 (08:32→20:34)
[2018-06-04] MEDS: Ferrous Sulfate Drops 15 MG/ML 50 ML Bottle PO SCH (08:32)
[2018-06-04] MEDS: Amiodarone 200 MG Tablet PO SCH ×2 (08:33→20:36)
[2018-06-04] MEDS: Lactic Acid (Ammonium Lactate) 12% Lotion 225 GM Bottle TOPICAL SCH ×2 (08:33→20:37)
[2018-06-04] MEDS: Calamine/Pramoxine Lotion 180 ML Bottle TOPICAL SCH ×2 (08:34→20:36)
[2018-06-04] MEDS: Insulin NovoLOG Aspart Correctional Sugar Inj SQ SCH ×4 (08:36→20:35)
[2018-06-04] MEDS: Methylnaltrexone Inj 12 MG/0.6 ML Vial SQ SCH (08:36)
--- NOTE | 2018-06-04 13:43 | P.PNIM ---
Subjective Interval history: 9-5 STATES HE IS STANDING AND TAKING A FEW STEPS NOW STILL HAVING BMS IN BED NOT ABLE TO DO BEDSIDE COMMODE YET 9-6 MOVING BETTER STARTED STANDING HAVING GOOD BMS DW RN AND PT AND CM 9-7 NO NEW ISSUES DW RN AND PT AND CM AWAIT PLACEMENT 9-8 HAVING GOOD BOWEL MOVEMENTS DW RN AND PT AND CM INCREASE ACTIVITY AWAIT PLACEMENT 9-9 INCREASE ACTIVITY NO NEW COMPLAINTS DW RN AND PT AND CM 9-10 WANTS IRON SWITCHED TO PILLS NO OTHER COMPLAINTS DW RN AND PT AND CM Physical Exam Vital signs: Vital Signs 06/03/18 15:35 06/03/18 16:00 06/03/18 20:00 Temperature 97.9 F 97.9 F Pulse Rate 58 L 57 L Respiratory Rate 18 18 Blood Pressure 113/54 L 120/57 L Pulse Oximetry 95 97 98 06/03/18 20:48 06/03/18 20:49 06/04/18 00:00 Temperature 98.1 F Pulse Rate 58 L 60 Respiratory Rate 18 18 Blood Pressure 119/62 Pulse Oximetry 95 97 06/04/18 04:00 06/04/18 07:00 06/04/18 07:29 Temperature 97.9 F Pulse Rate 56 L 57 L Respiratory Rate 18 20 Blood Pressure 132/64 Pulse Oximetry 97 97 99 06/04/18 08:00 06/04/18 12:00 06/04/18 12:01 Temperature 98.2 F 98.5 F Pulse Rate 53 L 60 Respiratory Rate 18 18 20 Blood Pressure 113/57 L 135/62 Pulse Oximetry 98 95 Intake & Output 06/03/18 06/04/18 06/04/18 18:59 06:59 18:59 Weight 137.6 kg Other: # Voids 5 4 # Bowel Movements 1 Narrative: GENERAL: Obese male, no distress. HEAD: Atraumatic. Normocephalic. EYES: Right eye missing. No scleral icterus. No injection or drainage. ENT: No nasal bleeding or discharge. Mucous membranes pink and moist. NECK: Trachea midline. No JVD. CARDIOVASCULAR: Regular rate and rhythm. S1, S2 NO S3 OR S4 RESPIRATORY: CTAB.DECREASED BREATH SOUNDS GASTROINTESTINAL: Abdomen soft, non-tender, nondistended. Hepatic and splenic margins not palpable. OBESE MUSCULOSKELETAL: Extremities without clubbing, cyanosis. Bilateral lower extremities with 1+ edema. No obvious deformities. NEUROLOGICAL: Awake, alert oriented 3. No focal deficits. Results - Labs CBC & Chem 7: 05/20/18 06:02 05/20/18 06:10 Laboratory Results - last 24 hr 06/04/18 11:27 POC Glucose 145 H - Procedures 04/30- EGD with dilatation 05/02- colonoscopy- small rectal ulcer, internal and external hemorrhoids Assessment and Plan - Assessment (1) Respiratory failure with hypoxia and hypercapnia Code(s): J96.91 - Respiratory failure, unspecified with hypoxia; J96.92 - Respiratory failure, unspecified with hypercapnia Status: Acute (2) Acute kidney injury superimposed on CKD Code(s): N17.9 - Acute kidney failure, unspecified; N18.9 - Chronic kidney disease, unspecified Status: Acute (3) Acute metabolic encephalopathy Code(s): G93.41 - Metabolic encephalopathy Status: Resolved (4) Altered mental status Code(s): R41.82 - Altered mental status, unspecified Status: Resolved (5) Obesity Code(s): E66.9 - Obesity, unspecified Status: Chronic - Plan 05/28/2018 = patient is having regular bowel movements on a simplified laxative regimen. He will be encouraged to try and use a bedside commode rather than his bed for defecation. 05/29/2018 = no change to current plan. Patient has no new complaints. Bedside commode is pending. 9-5 STATES STANDING BUT NOT DOING MUCH MORE YET STILL HAVING BM IN BED 9-6 WORKING WITH PT 9-7 STILL STRIVING TO MOVE BETTER 9-10 WANTS IRON CHANGED Dysphagia with GERD symptoms S/P EGD with dilatation 04/30 S/P colonoscopy 05/02- poor prep- some rectal ulcer/ hemorrhoids Continue regular consistency diet Acute on chronic hypercapnic respiratory insufficiency History of PMH COPD, Obstructive sleep apnea. Does not tolerate CPAP mask due to the noise. Status post treatment of MRSA pneumonia Previously on home oxygen Continue CPAP at night, DuoNebs, encourage ambulation Appreciate pulmonology following h/o CHF not in exacerbation, CAD s/p CABG. echo from September showed EF 55-60% Continue ASA, Amiodarone 200mg BID, Coreg 12.5mg BID, Clonidine 0.1mg Q8, Plavix 75mg daily, Lasix 40 mg twice daily Hypertension Continue carvedilol 12.5 mg po bid , continue clonidine Diabetes Mellitus, type 2 Well controlled. Continue sliding-scale coverage Levemir 10 units twice daily Continue ADA/cardiac diet Scrotal pain Per Dr. Mendoza likely from anasarca. Ultrasound noted. Improved Hypotestosteronism Periodic testosterone dosing for energy level, initially diagnosed near 0 Left upper and lower extremity weakness Head CT on 02/25 shows no acute changes. CT of the neck shows C6-[address] of lumbar spine shows L3-4 herniation with L3 nerve root impingement Per NS, the disc herniation is nonsurgical. S/p course of steroids, improved Morbid obesity/debility Continue PT and OT daily to mobilize the patient more. Slowly improving WEIGHT LOSS Insomnia Continue Trazodone 100mg HS, Melatonin HS. D/c zolpidem. Constipation, chronic Laxative regimen simplified, senna 17.2 mg nightly scheduled his new solo therapy for regularity Iron deficiency anemia CBC stable CHANGE IRON TO PO Left Knee Pain possible strain, left knee x-ray unremarkable. Continue pain control. better range of motion continue PT Anxiety Acute on chronic. Continue Ativan as needed. DVT Prophylaxis Lovenox Code Status: FULL CODE Discussed Condition With: RN AND PT AND CM Discharge Planning: AWAIT SAFE PLACEMENT (1) Respiratory failure with hypoxia and hypercapnia Qualifiers: Chronicity: chronic Qualified Code(s): J96.11 - Chronic respiratory failure with hypoxia; J96.12 - Chronic respiratory failure with hypercapnia
--- NOTE | 2018-06-04 18:34 | P.PNPL ---
Subjective Interval history: 57 YO Obese male with TANA Works with PT Breathing about the same On 2LNC Physical Exam Vital signs: Vital Signs 06/03/18 20:00 06/03/18 20:48 06/03/18 20:49 Temperature 97.9 F Pulse Rate 57 L 58 L Respiratory Rate 18 18 Blood Pressure 120/57 L Pulse Oximetry 98 95 06/04/18 00:00 06/04/18 04:00 06/04/18 07:00 Temperature 98.1 F 97.9 F Pulse Rate 60 56 L Respiratory Rate 18 18 Blood Pressure 119/62 132/64 Pulse Oximetry 97 97 97 06/04/18 07:29 06/04/18 08:00 06/04/18 12:00 Temperature 98.2 F 98.5 F Pulse Rate 57 L 53 L 60 Respiratory Rate 20 18 18 Blood Pressure 113/57 L 135/62 Pulse Oximetry 99 98 95 06/04/18 12:01 06/04/18 16:00 Temperature 98.4 F Pulse Rate 58 L Respiratory Rate 20 18 Blood Pressure 118/59 L Pulse Oximetry 99 Intake & Output 06/03/18 06/04/18 06/04/18 18:59 06:59 18:59 Weight 137.6 kg Other: # Voids 5 4 # Bowel Movements 1 GENERAL: Obese WM, NAD SKIN: Warm and dry. HEAD: Normocephalic. EYES: No scleral icterus. No injection or drainage. NECK: Supple, trachea midline. No JVD or lymphadenopathy. CARDIOVASCULAR: Regular rate and rhythm without murmurs, gallops, or rubs. RESPIRATORY: Breath sounds equal bilaterally. No accessory muscle use. GASTROINTESTINAL: Abdomen soft, non-tender, nondistended. MUSCULOSKELETAL: No cyanosis, or edema. BACK: Nontender without obvious deformity. No CVA tenderness. Assessment and Plan - Plan IMPRESSION: TANA COPD CHF Morbid obesity Gen Weakness/ deconditioning PLAN: Supplement 02, 2LNC Keep sat 88-92% Diurease Aerosol nebs Encourage to use CPAP DC plans underway
[2018-06-04] MEDS: Enoxaparin Inj 40 MG/0.4 ML Syringe SQ SCH (18:42)
[2018-06-04] MEDS: traZODone 50 MG Tablet PO SCH (20:36)
[2018-06-04] MEDS: Melatonin 5 MG Tablet PO PRN (20:41)
[2018-06-05] MEDS: Nystatin 100,000 UNITS/GM Powder 15 GM Bottle TOPICAL SCH ×3 (00:29→12:59)
[2018-06-05] MEDS: LORazepam 1 MG Tablet PO PRN ×4 (03:52→22:54)
[2018-06-05] MEDS: Insulin NovoLOG Aspart Correctional Sugar Inj SQ SCH ×4 (08:45→22:01)
[2018-06-05] MEDS: Sodium Chloride 0.65% Nasal Drops/Spray 30 ML Bottle EACH NARE SCH ×2 (08:46→22:05)
[2018-06-05] MEDS: Carvedilol 12.5 MG Tablet PO SCH ×2 (08:47→21:58)
[2018-06-05] MEDS: Calamine/Pramoxine Lotion 180 ML Bottle TOPICAL SCH ×2 (08:47→22:05)
[2018-06-05] MEDS: Methylnaltrexone Inj 12 MG/0.6 ML Vial SQ SCH (08:47)
[2018-06-05] MEDS: Amiodarone 200 MG Tablet PO SCH ×2 (08:48→21:58)
[2018-06-05] MEDS: Ferrous Sulfate 325 MG Tablet PO SCH (08:48)
[2018-06-05] MEDS: Allopurinol 100 MG Tablet PO SCH (08:48)
[2018-06-05] MEDS: Furosemide 40 MG Tablet PO SCH ×2 (08:48→22:00)
[2018-06-05] MEDS: Famotidine 20 MG Tablet PO SCH ×2 (08:48→21:58)
[2018-06-05] MEDS: Gabapentin 100 MG Capsule PO SCH ×3 (08:48→17:18)
[2018-06-05] MEDS: guaiFENesin 600 MG ER Tablet PO SCH ×2 (08:50→21:57)
--- NOTE | 2018-06-05 11:02 | P.PNIM ---
Subjective Interval history: 9-5 STATES HE IS STANDING AND TAKING A FEW STEPS NOW STILL HAVING BMS IN BED NOT ABLE TO DO BEDSIDE COMMODE YET 9-6 MOVING BETTER STARTED STANDING HAVING GOOD BMS DW RN AND PT AND CM 9-7 NO NEW ISSUES DW RN AND PT AND CM AWAIT PLACEMENT 9-8 HAVING GOOD BOWEL MOVEMENTS DW RN AND PT AND CM INCREASE ACTIVITY AWAIT PLACEMENT 9-9 INCREASE ACTIVITY NO NEW COMPLAINTS DW RN AND PT AND CM 9-10 WANTS IRON SWITCHED TO PILLS NO OTHER COMPLAINTS DW RN AND PT AND CM 9-11 COMPLAINS OF PAIN RIGHT KNEE WILL GET XRAYS OF RIGHT KNEE DW RN AND PT AND C INCREASE ACTIVITY Physical Exam Vital signs: Vital Signs 06/04/18 12:00 06/04/18 12:01 06/04/18 16:00 Temperature 98.5 F 98.4 F Pulse Rate 60 58 L Respiratory Rate 18 20 18 Blood Pressure 135/62 118/59 L Pulse Oximetry 95 99 06/04/18 19:00 06/04/18 19:04 06/04/18 19:05 Temperature Pulse Rate 58 L Respiratory Rate 18 Blood Pressure Pulse Oximetry 99 99 06/04/18 20:00 06/05/18 00:00 06/05/18 04:00 Temperature 97.9 F 97.6 F 98 F Pulse Rate 55 L 54 L 51 L Respiratory Rate 18 18 18 Blood Pressure 119/56 L 112/57 L 115/56 L Pulse Oximetry 98 98 99 06/05/18 08:00 06/05/18 08:23 Temperature 97.9 F Pulse Rate 60 59 L Respiratory Rate 22 18 Blood Pressure 127/62 Pulse Oximetry 98 97 Intake & Output 06/04/18 06/05/18 06/05/18 18:59 06:59 18:59 Intake Total 960 / 960 720 / 720 Balance 960 / 960 720 / 720 Weight 138 kg Intake: Oral 960 / 960 720 / 720 Other: # Voids 4 # Incontinent Voids 5 Date of Last Bowel Movement 06/04/18 06/04/18 # Bowel Movements 1 Narrative: GENERAL: Obese male, no distress. HEAD: Atraumatic. Normocephalic. EYES: Right eye missing. No scleral icterus. No injection or drainage. ENT: No nasal bleeding or discharge. Mucous membranes pink and moist. NECK: Trachea midline. No JVD. CARDIOVASCULAR: Regular rate and rhythm. S1, S2 NO S3 OR S4 RESPIRATORY: CTAB.DECREASED BREATH SOUNDS GASTROINTESTINAL: Abdomen soft, non-tender, nondistended. Hepatic and splenic margins not palpable. OBESE MUSCULOSKELETAL: Extremities without clubbing, cyanosis. Bilateral lower extremities with 1+ edema. No obvious deformities. NEUROLOGICAL: Awake, alert oriented 3. No focal deficits. Results - Labs CBC & Chem 7: 05/20/18 06:02 05/20/18 06:10 Laboratory Results - last 24 hr 06/04/18 06/04/18 06/04/18 11:27 17:34 19:47 POC Glucose 145 H 121 H 180 H - Imaging ITS Impressions Foot X-Ray 04/01/18 00:00 CONCLUSION: No acute findings. Mild degenerative change. Chest X-Ray 04/23/18 00:00 CONCLUSION: Basilar airspace disease predominantly on the left side. Differential diagnosis includes atelectasis and pneumonia. Knee X-Ray 04/25/18 00:00 CONCLUSION: No evidence of recent bony injury. - Procedures 04/30- EGD with dilatation 05/02- colonoscopy- small rectal ulcer, internal and external hemorrhoids Assessment and Plan - Assessment (1) Respiratory failure with hypoxia and hypercapnia Code(s): J96.91 - Respiratory failure, unspecified with hypoxia; J96.92 - Respiratory failure, unspecified with hypercapnia Status: Acute (2) Acute kidney injury superimposed on CKD Code(s): N17.9 - Acute kidney failure, unspecified; N18.9 - Chronic kidney disease, unspecified Status: Acute (3) Acute metabolic encephalopathy Code(s): G93.41 - Metabolic encephalopathy Status: Resolved (4) Altered mental status Code(s): R41.82 - Altered mental status, unspecified Status: Resolved (5) Obesity Code(s): E66.9 - Obesity, unspecified Status: Chronic - Plan 05/28/2018 = patient is having regular bowel movements on a simplified laxative regimen. He will be encouraged to try and use a bedside commode rather than his bed for defecation. 05/29/2018 = no change to current plan. Patient has no new complaints. Bedside commode is pending. 9-5 STATES STANDING BUT NOT DOING MUCH MORE YET STILL HAVING BM IN BED 9-6 WORKING WITH PT 9-7 STILL STRIVING TO MOVE BETTER 9-10 WANTS IRON CHANGED. 9-11PAIN IN RIGHT KNEE- GET XRAYS Dysphagia with GERD symptoms S/P EGD with dilatation 04/30 S/P colonoscopy 05/02- poor prep- some rectal ulcer/ hemorrhoids Continue regular consistency diet Acute on chronic hypercapnic respiratory insufficiency History of PMH COPD, Obstructive sleep apnea. Does not tolerate CPAP mask due to the noise. Status post treatment of MRSA pneumonia Previously on home oxygen Continue CPAP at night, DuoNebs, encourage ambulation Appreciate pulmonology following h/o CHF not in exacerbation, CAD s/p CABG. echo from September showed EF 55-60% Continue ASA, Amiodarone 200mg BID, Coreg 12.5mg BID, Clonidine 0.1mg Q8, Plavix 75mg daily, Lasix 40 mg twice daily Hypertension Continue carvedilol 12.5 mg po bid , continue clonidine Diabetes Mellitus, type 2 Well controlled. Continue sliding-scale coverage Levemir 10 units twice daily Continue ADA/cardiac diet Scrotal pain Per Dr. Mendoza likely from anasarca. Ultrasound noted. Improved Hypotestosteronism Periodic testosterone dosing for energy level, initially diagnosed near 0 Left upper and lower extremity weakness Head CT on 02/25 shows no acute changes. CT of the neck shows C6-[address] of lumbar spine shows L3-4 herniation with L3 nerve root impingement Per NS, the disc herniation is nonsurgical. S/p course of steroids, improved Morbid obesity/debility Continue PT and OT daily to mobilize the patient more. Slowly improving WEIGHT LOSS Insomnia Continue Trazodone 100mg HS, Melatonin HS. D/c zolpidem. Constipation, chronic Laxative regimen simplified, senna 17.2 mg nightly scheduled his new solo therapy for regularity Iron deficiency anemia CBC stable CHANGE IRON TO PO Left Knee Pain possible strain, left knee x-ray unremarkable. Continue pain control. better range of motion continue PT Anxiety Acute on chronic. Continue Ativan as needed. DVT Prophylaxis Lovenox Code Status: FULL CODE Discussed Condition With: RN AND PT AND PHYSICAL THERAPY AND CM Discharge Planning: AWAIT SAFE PLACEMENT (1) Respiratory failure with hypoxia and hypercapnia Qualifiers: Chronicity: chronic Qualified Code(s): J96.11 - Chronic respiratory failure with hypoxia; J96.12 - Chronic respiratory failure with hypercapnia
[2018-06-05] MEDS: Insulin Detemir Inj 1,000 UNIT/10 ML Vial SQ SCH ×2 (11:17→22:06)
[2018-06-05] MEDS: Lactic Acid (Ammonium Lactate) 12% Lotion 225 GM Bottle TOPICAL SCH ×2 (11:18→22:05)
[2018-06-05] MEDS: Enoxaparin Inj 40 MG/0.4 ML Syringe SQ SCH (18:23)
[2018-06-05] MEDS: traZODone 50 MG Tablet PO SCH (21:58)
[2018-06-06] MEDS: Nystatin 100,000 UNITS/GM Powder 15 GM Bottle TOPICAL SCH ×3 (00:17→13:01)
[2018-06-06] MEDS: LORazepam 1 MG Tablet PO PRN ×3 (05:27→19:02)
[2018-06-06] MEDS: Insulin NovoLOG Aspart Correctional Sugar Inj SQ SCH ×4 (09:10→22:06)
[2018-06-06] MEDS: guaiFENesin 600 MG ER Tablet PO SCH ×2 (09:15→22:05)
[2018-06-06] MEDS: Carvedilol 12.5 MG Tablet PO SCH ×2 (09:15→22:04)
[2018-06-06] MEDS: Ferrous Sulfate 325 MG Tablet PO SCH (09:15)
[2018-06-06] MEDS: Famotidine 20 MG Tablet PO SCH ×2 (09:15→22:06)
[2018-06-06] MEDS: Methylnaltrexone Inj 12 MG/0.6 ML Vial SQ SCH (09:16)
[2018-06-06] MEDS: Gabapentin 100 MG Capsule PO SCH ×3 (09:16→18:14)
[2018-06-06] MEDS: Amiodarone 200 MG Tablet PO SCH ×2 (09:16→22:05)
[2018-06-06] MEDS: Allopurinol 100 MG Tablet PO SCH (09:17)
[2018-06-06] MEDS: Furosemide 40 MG Tablet PO SCH ×2 (09:17→22:04)
[2018-06-06] MEDS: Insulin Detemir Inj 1,000 UNIT/10 ML Vial SQ SCH ×2 (09:18→22:06)
[2018-06-06] MEDS: Sodium Chloride 0.65% Nasal Drops/Spray 30 ML Bottle EACH NARE SCH ×2 (09:19→22:07)
[2018-06-06] MEDS: Lactic Acid (Ammonium Lactate) 12% Lotion 225 GM Bottle TOPICAL SCH ×2 (09:22→22:07)
[2018-06-06] MEDS: Calamine/Pramoxine Lotion 180 ML Bottle TOPICAL SCH ×2 (09:22→22:07)
--- NOTE | 2018-06-06 12:10 | P.PNIM ---
Subjective Interval history: No acute changes overnight. Working well with PT today. No new complaints. Physical Exam Vital signs: Vital Signs 06/05/18 13:41 06/05/18 16:00 06/05/18 19:44 Temperature 98.2 F Pulse Rate 61 68 Respiratory Rate 18 21 18 Blood Pressure 105/63 Pulse Oximetry 97 97 06/05/18 20:00 06/05/18 23:16 06/06/18 00:00 Temperature 97.9 F 98.2 F Pulse Rate 61 61 57 L Respiratory Rate 18 18 20 Blood Pressure 121/51 L 106/58 L Pulse Oximetry 96 98 98 06/06/18 04:00 06/06/18 08:00 06/06/18 08:16 Temperature 98 F 98.3 F Pulse Rate 58 L 58 L 59 L Respiratory Rate 20 17 16 Blood Pressure 111/60 101/63 Pulse Oximetry 98 99 99 Intake & Output 06/05/18 06/06/18 06/06/18 18:59 06:59 18:59 Intake Total 720 / 720 1021 / 1021 Output Total Balance 720 / 720 1020 / 1020 Intake: Oral 720 / 720 720 / 720 Anesthesia Amount 300 / 300 Other Output: Urine 0 / 0 Stool Other: Post Void Residual 1 # Voids 4 4 # Incontinent Voids 5 # Urine Diapers 4 Date of Last Bowel Movement 06/04/18 06/04/18 06/05/18 # Bowel Movements 1 # Incontinent Bowel Movements 1 Narrative: GENERAL: NAD, A&Ox3, obese HEAD: Normocephalic. NECK: Supple, trachea midline. No lymphadenopathy. EYES: No scleral icterus. No injection or drainage. CARDIOVASCULAR: Regular rate and rhythm without murmurs, gallops, or rubs. RESPIRATORY: Breath sounds equal bilaterally. No accessory muscle use. GASTROINTESTINAL: Abdomen soft, non-tender, nondistended. MUSCULOSKELETAL: No cyanosis, or edema. SKIN: Warm and dry. NEURO: No focal neurological deficits. Results - Labs CBC & Chem 7: 05/20/18 06:02 05/20/18 06:10 Laboratory Results - last 24 hr 06/05/18 06/05/18 17:06 20:21 POC Glucose 225 H 110 - Procedures 04/30- EGD with dilatation 05/02- colonoscopy- small rectal ulcer, internal and external hemorrhoids Assessment and Plan - Assessment (1) Respiratory failure with hypoxia and hypercapnia Code(s): J96.91 - Respiratory failure, unspecified with hypoxia; J96.92 - Respiratory failure, unspecified with hypercapnia Status: Acute (2) Acute kidney injury superimposed on CKD Code(s): N17.9 - Acute kidney failure, unspecified; N18.9 - Chronic kidney disease, unspecified Status: Acute (3) Acute metabolic encephalopathy Code(s): G93.41 - Metabolic encephalopathy Status: Resolved (4) Altered mental status Code(s): R41.82 - Altered mental status, unspecified Status: Resolved (5) Obesity Code(s): E66.9 - Obesity, unspecified Status: Chronic - Plan 57 year old male admitted with hypercapnia and encephalopathy Dysphagia with GERD symptoms S/P EGD with dilatation Continue regular consistency diet Acute on chronic hypercapnic respiratory insufficiency History of PMH COPD, Obstructive sleep apnea. Does not tolerate CPAP mask due to the noise. Status post treatment of MRSA pneumonia Previously on home oxygen Continue CPAP at night [place] encourage ambulation pulmonology following h/o CHF CAD Hx of CABG no current exacerbation echo from September showed EF 55-60% Continue ASA, Amiodarone 200mg BID, Coreg 12.5mg BID, Clonidine 0.1mg Q8, Plavix 75mg daily, Lasix 40 mg twice daily Hypertension Continue carvedilol 12.5 mg po bid continue clonidine Diabetes Mellitus, type 2 Well controlled. Continue sliding-scale coverage Levemir 10 units twice daily Continue ADA/cardiac diet Scrotal pain Per Dr. Mendoza likely from anasarca. Improved Hypotestosteronism Periodic testosterone dosing for energy level, initially diagnosed near 0 Left upper and lower extremity weakness Disc herniation is present, but nonsurgical Improved with steroids Morbid obesity/debility Continue PT and OT daily to mobilize the patient more. Slowly improving WEIGHT LOSS recommended Insomnia Continue Trazodone 100mg HS, Melatonin HS. Constipation, chronic Laxative regimen simplified, senna 17.2 mg nightly scheduled his new solo therapy for regularity Iron deficiency anemia Continue PO Iron Left Knee Pain possible strain left knee x-ray unremarkable. Continue pain control continue PT Anxiety Acute on chronic. Continue Ativan as needed. DVT Prophylaxis Lovenox Code Status: FULL CODE Discharge Planning: AWAIT SAFE PLACEMENT (1) Respiratory failure with hypoxia and hypercapnia Qualifiers: Chronicity: chronic Qualified Code(s): J96.11 - Chronic respiratory failure with hypoxia; J96.12 - Chronic respiratory failure with hypercapnia
--- NOTE | 2018-06-06 15:31 | P.PNPL ---
Subjective Interval history: 57 YO Obese male with TANA Works with PT Breathing about the same On 2LNC No new complaint Physical Exam Vital signs: Vital Signs 06/05/18 16:00 06/05/18 19:44 06/05/18 20:00 Temperature 98.2 F 97.9 F Pulse Rate 61 68 61 Respiratory Rate 21 18 18 Blood Pressure 105/63 121/51 L Pulse Oximetry 97 97 96 06/05/18 23:16 06/06/18 00:00 06/06/18 04:00 Temperature 98.2 F 98 F Pulse Rate 61 57 L 58 L Respiratory Rate 18 20 20 Blood Pressure 106/58 L 111/60 Pulse Oximetry 98 98 98 06/06/18 08:00 06/06/18 08:16 06/06/18 12:00 Temperature 98.3 F 97.8 F Pulse Rate 58 L 59 L 58 L Respiratory Rate 17 16 17 Blood Pressure 101/63 123/66 Pulse Oximetry 99 99 93 L 06/06/18 12:47 Temperature Pulse Rate 60 Respiratory Rate 18 Blood Pressure Pulse Oximetry Intake & Output 06/05/18 06/06/18 06/06/18 18:59 06:59 18:59 Intake Total 720 / 720 1021 / 1021 Output Total Balance 720 / 720 1020 / 1020 Intake: Oral 720 / 720 720 / 720 Anesthesia Amount 300 / 300 Other Output: Urine 0 / 0 Stool / Other: Post Void Residual 1 # Voids 4 4 # Incontinent Voids 5 # Urine Diapers 4 Date of Last Bowel Movement 06/04/18 06/04/18 06/05/18 # Bowel Movements 1 # Incontinent Bowel Movements 1 GENERAL: obese Wm, NAd SKIN: Warm and dry. HEAD: Normocephalic. EYES: No scleral icterus. No injection or drainage. NECK: Supple, trachea midline. No JVD or lymphadenopathy. CARDIOVASCULAR: Regular rate and rhythm without murmurs, gallops, or rubs. RESPIRATORY: Breath sounds equal bilaterally. No accessory muscle use. GASTROINTESTINAL: Abdomen soft, non-tender, nondistended. MUSCULOSKELETAL: No cyanosis, or edema. BACK: Nontender without obvious deformity. No CVA tenderness. Assessment and Plan - Plan IMPRESSION: TANA COPD CHF Morbid obesity Gen Weakness/ deconditioning PLAN: Supplement 02, 2LNC Keep sat 88-92% Diurease Aerosol nebs Encourage to use CPAP DC plans underway I will be away untill 06/17 Coverage available prn
[2018-06-06] MEDS: Enoxaparin Inj 40 MG/0.4 ML Syringe SQ SCH (18:15)
[2018-06-06] MEDS: traZODone 50 MG Tablet PO SCH (22:04)
[2018-06-07] MEDS: Nystatin 100,000 UNITS/GM Powder 15 GM Bottle TOPICAL SCH ×4 (03:33→22:26)
[2018-06-07] MEDS: LORazepam 1 MG Tablet PO PRN ×3 (08:42→22:23)
[2018-06-07] MEDS: Amiodarone 200 MG Tablet PO SCH ×2 (08:44→22:24)
[2018-06-07] MEDS: Gabapentin 100 MG Capsule PO SCH ×3 (08:44→17:56)
[2018-06-07] MEDS: Furosemide 40 MG Tablet PO SCH ×2 (08:44→22:23)
[2018-06-07] MEDS: Ferrous Sulfate 325 MG Tablet PO SCH (08:44)
[2018-06-07] MEDS: Famotidine 20 MG Tablet PO SCH ×2 (08:44→22:23)
[2018-06-07] MEDS: Carvedilol 12.5 MG Tablet PO SCH ×2 (08:44→22:24)
[2018-06-07] MEDS: Insulin Detemir Inj 1,000 UNIT/10 ML Vial SQ SCH ×2 (08:45→22:24)
[2018-06-07] MEDS: Methylnaltrexone Inj 12 MG/0.6 ML Vial SQ SCH (08:45)
[2018-06-07] MEDS: Allopurinol 100 MG Tablet PO SCH (08:45)
[2018-06-07] MEDS: guaiFENesin 600 MG ER Tablet PO SCH ×2 (08:45→22:23)
[2018-06-07] MEDS: Sodium Chloride 0.65% Nasal Drops/Spray 30 ML Bottle EACH NARE SCH ×2 (08:48→22:25)
[2018-06-07] MEDS: Insulin NovoLOG Aspart Correctional Sugar Inj SQ SCH ×4 (08:48→22:25)
[2018-06-07] MEDS: Lactic Acid (Ammonium Lactate) 12% Lotion 225 GM Bottle TOPICAL SCH ×2 (08:49→22:24)
[2018-06-07] MEDS: Calamine/Pramoxine Lotion 180 ML Bottle TOPICAL SCH ×2 (08:49→22:25)
--- NOTE | 2018-06-07 12:30 | P.DCO ---
- Home Health Nursing Order: Medical education, Signs/symptoms of disease process, Oxygen administration education, Nursing assessment with vital signs - Certification I have seen patient Buster Jackson on 06/07/18. My clinical findings support the need for the requested home health care services because: Limited mobility due to disease progression, Patient has SOB, Deconditioned with increased weakness, Limited ability to care for self, High risk of falls I certify that my clinical findings support that this patient is homebound because: Unsteady gait/balance, Unsafe to leave home unassisted, Unable to use public transportation
--- NOTE | 2018-06-07 12:35 | P.PNIM ---
Subjective Interval history: Improving ambulation. Attitude improved and patient's working well with PT. He has a desire to return to home. His only complaint today is left lower extremity swelling and some pain in his bilateral knees. Physical Exam Vital signs: Vital Signs 06/06/18 12:47 06/06/18 16:00 06/06/18 16:42 Temperature 97.8 F Pulse Rate 60 62 Respiratory Rate 18 17 Blood Pressure 122/73 Pulse Oximetry 99 93 L 06/06/18 19:00 06/06/18 19:34 06/06/18 20:00 Temperature 98.5 F Pulse Rate 62 60 Respiratory Rate 17 18 Blood Pressure 126/55 L Pulse Oximetry 93 L 98 06/07/18 00:00 06/07/18 04:00 06/07/18 08:00 Temperature 98.0 F 97.8 F 97.8 F Pulse Rate 58 L 56 L 58 L Respiratory Rate 18 18 16 Blood Pressure 121/66 105/51 L 128/60 Pulse Oximetry 97 98 97 06/07/18 08:11 Temperature Pulse Rate 60 Respiratory Rate 12 Blood Pressure Pulse Oximetry 99 Intake & Output 06/06/18 06/07/18 06/07/18 18:59 06:59 18:59 Intake Total 960 / 960 Balance 960 / 960 Weight 137.7 kg Intake: Oral 960 / 960 Other: # Voids 3 6 Date of Last Bowel Movement 06/05/18 06/06/18 # Bowel Movements 1 Narrative: GENERAL: NAD, A&Ox3, obese HEAD: Normocephalic. NECK: Supple, trachea midline. No lymphadenopathy. EYES: No scleral icterus. No injection or drainage. CARDIOVASCULAR: Regular rate and rhythm without murmurs, gallops, or rubs. RESPIRATORY: Breath sounds equal bilaterally. No accessory muscle use. GASTROINTESTINAL: Abdomen soft, non-tender, nondistended. MUSCULOSKELETAL: No cyanosis, trace lower extremity edema. SKIN: Warm and dry. NEURO: No focal neurological deficits. Results - Labs CBC & Chem 7: 05/20/18 06:02 05/20/18 06:10 Laboratory Results - last 24 hr 06/06/18 06/06/18 06/06/18 12:37 17:04 22:03 POC Glucose 139 H 191 H 151 H - Procedures 04/30- EGD with dilatation 8/8- colonoscopy- small rectal ulcer, internal and external hemorrhoids Assessment and Plan - Assessment (1) Respiratory failure with hypoxia and hypercapnia Code(s): J96.91 - Respiratory failure, unspecified with hypoxia; J96.92 - Respiratory failure, unspecified with hypercapnia Status: Acute (2) Acute kidney injury superimposed on CKD Code(s): N17.9 - Acute kidney failure, unspecified; N18.9 - Chronic kidney disease, unspecified Status: Acute (3) Acute metabolic encephalopathy Code(s): G93.41 - Metabolic encephalopathy Status: Resolved (4) Altered mental status Code(s): R41.82 - Altered mental status, unspecified Status: Resolved (5) Obesity Code(s): E66.9 - Obesity, unspecified Status: Chronic - Plan 57 year old male admitted with hypercapnia and encephalopathy Continue working with PT. Temporary NSAIDs added. Temporary Lasix added. Dysphagia with GERD symptoms S/P EGD with dilatation Continue regular consistency diet Acute on chronic hypercapnic respiratory insufficiency History of PMH COPD, Obstructive sleep apnea. Does not tolerate CPAP mask due to the noise. Status post treatment of MRSA pneumonia Previously on home oxygen Continue CPAP at night [place] encourage ambulation pulmonology following h/o CHF CAD Hx of CABG no current exacerbation echo from September showed EF 55-60% Continue ASA, Amiodarone 200mg BID, Coreg 12.5mg BID, Clonidine 0.1mg Q8, Plavix 75mg daily, Lasix 40 mg twice daily Hypertension Continue carvedilol 12.5 mg po bid continue clonidine Diabetes Mellitus, type 2 Well controlled. Continue sliding-scale coverage Levemir 10 units twice daily Continue ADA/cardiac diet Scrotal pain Per Dr. Mendoza likely from anasarca. Improved Hypotestosteronism Periodic testosterone dosing for energy level, initially diagnosed near 0 Left upper and lower extremity weakness Disc herniation is present, but nonsurgical Improved with steroids Morbid obesity/debility Continue PT and OT daily to mobilize the patient more. Slowly improving WEIGHT LOSS recommended Insomnia Continue Trazodone 100mg HS, Melatonin HS. Constipation, chronic Laxative regimen simplified, senna 17.2 mg nightly scheduled his new solo therapy for regularity Iron deficiency anemia Continue PO Iron Left Knee Pain possible strain left knee x-ray unremarkable. Continue pain control continue PT Anxiety Acute on chronic. Continue Ativan as needed. DVT Prophylaxis Lovenox Code Status: FULL CODE Discharge Planning: AWAIT SAFE PLACEMENT (1) Respiratory failure with hypoxia and hypercapnia Qualifiers: Chronicity: chronic Qualified Code(s): J96.11 - Chronic respiratory failure with hypoxia; J96.12 - Chronic respiratory failure with hypercapnia
[2018-06-07] MEDS ORDERED: Naproxen 250 MG Tablet PO ONE (13:00)
[2018-06-07] MEDS ORDERED: Furosemide 40 MG Tablet PO ONE (13:00)
[2018-06-07] MEDS: Enoxaparin Inj 40 MG/0.4 ML Syringe SQ SCH (17:56)
[2018-06-07] MEDS: Naproxen 250 MG Tablet PO SCH (22:22)
[2018-06-07] MEDS: traZODone 50 MG Tablet PO SCH (22:24)
[2018-06-08] MEDS: LORazepam 1 MG Tablet PO PRN ×3 (07:08→21:03)
[2018-06-08 07:22] LABS: Baso % (Auto) 0.7 % (0.0-2.0); Eos # (Auto) 0.2 th/mm3 (0.0-0.4); Eos % (Auto) 3.6 % (0.0-4.0); Hematocrit 28.5 % (39.0-51.0); Lymph # (Auto) 1.7 th/mm3 (1.0-4.8); Lymph % (Auto) 27.5 % (9.0-44.0); Mean Corpuscular HGB Conc 31.7 % (32.0-36.0); Mean Corpuscular Hemoglobin 26.7 pg (27.0-34.0); Mean Corpuscular Volume 84.1 fL (80.0-100.0); Mean Platelet Volume 8.6 fL (7.0-11.0); Mono # (Auto) 0.4 th/mm3 (0.0-0.9); Mono % (Auto) 6.8 % (0.0-8.0); Neut # (Auto) 3.8 th/mm3 (1.8-7.7); Neut % (Auto) 61.4 % (16.0-70.0); Platelet Count 165 th/mm3 (150-450); Red Blood Count 3.39 mil/mm3 (4.50-5.90); Red Cell Distribution Width 16.7 % (11.6-17.2); White Blood Count 6.1 th/mm3 (4.0-11.0)
[2018-06-08 07:34] LABS: Alanine Aminotransferase 12 U/L (12-78); Albumin 2.7 g/dL (3.4-5.0); Anion Gap 4 meq/L (5-15); Aspartate Aminotransferase 13 U/L (15-37); Blood Urea Nitrogen 14 mg/dL (7-18); Calcium 8.4 mg/dL (8.5-10.1); Carbon Dioxide 41.3 meq/L (21.0-32.0); Chloride 96 meq/L (98-107); Glomerular Filtration Rate 68 mL/min (>89); Glucose,Random 98 mg/dL (74-106); Potassium 4.1 meq/L (3.5-5.1); Sodium 141 meq/L (136-145)
[2018-06-08 07:36] LABS: Alkaline Phosphatase 48 U/L (45-117); Total Protein 6.4 g/dL (6.4-8.2)
[2018-06-08] MEDS: Nystatin 100,000 UNITS/GM Powder 15 GM Bottle TOPICAL SCH ×3 (08:36→21:05)
[2018-06-08] MEDS: Naproxen 250 MG Tablet PO SCH ×2 (08:38→21:03)
[2018-06-08] MEDS: Ferrous Sulfate 325 MG Tablet PO SCH (08:38)
[2018-06-08] MEDS: Amiodarone 200 MG Tablet PO SCH ×2 (08:38→21:03)
[2018-06-08] MEDS: Furosemide 40 MG Tablet PO SCH ×2 (08:38→21:03)
[2018-06-08] MEDS: Carvedilol 12.5 MG Tablet PO SCH ×2 (08:38→21:02)
[2018-06-08] MEDS: Allopurinol 100 MG Tablet PO SCH (08:38)
[2018-06-08] MEDS: Gabapentin 100 MG Capsule PO SCH ×3 (08:38→17:32)
[2018-06-08] MEDS: Methylnaltrexone Inj 12 MG/0.6 ML Vial SQ SCH (08:39)
[2018-06-08] MEDS: Insulin Detemir Inj 1,000 UNIT/10 ML Vial SQ SCH ×2 (08:39→21:03)
[2018-06-08] MEDS: Famotidine 20 MG Tablet PO SCH ×2 (08:39→21:03)
[2018-06-08] MEDS: Lactic Acid (Ammonium Lactate) 12% Lotion 225 GM Bottle TOPICAL SCH ×2 (08:42→21:03)
[2018-06-08] MEDS: Sodium Chloride 0.65% Nasal Drops/Spray 30 ML Bottle EACH NARE SCH ×2 (08:42→21:04)
[2018-06-08] MEDS: guaiFENesin 600 MG ER Tablet PO SCH ×2 (08:42→21:02)
[2018-06-08] MEDS: Calamine/Pramoxine Lotion 180 ML Bottle TOPICAL SCH ×2 (08:42→21:17)
[2018-06-08] MEDS: Insulin NovoLOG Aspart Correctional Sugar Inj SQ SCH ×4 (09:24→21:04)
--- NOTE | 2018-06-08 11:04 | P.PNIM ---
Subjective Interval history: Continues to work well with PT. NSAIDS have been started temporarily for knee pain which appears to be arthritic in nature. No new complaints. Physical Exam Vital signs: Vital Signs 06/07/18 12:00 06/07/18 14:23 06/07/18 16:00 Temperature 97.2 F L 97.7 F Pulse Rate 60 61 56 L Respiratory Rate 16 12 18 Blood Pressure 125/58 L 124/60 Pulse Oximetry 99 98 Pulse Oximetry [Exertion on Room Air] 88 L Pulse Oximetry [Resting on Room Air] 95 Pulse Oximetry [Resting with Oxygen] 99 06/07/18 20:00 06/07/18 20:10 06/08/18 00:00 Temperature 98.6 F 98.1 F Pulse Rate 60 53 L 62 Respiratory Rate 18 20 18 Blood Pressure 108/51 L 110/56 L Pulse Oximetry 96 99 98 Pulse Oximetry [Exertion on Room Air] Pulse Oximetry [Resting on Room Air] Pulse Oximetry [Resting with Oxygen] 06/08/18 04:00 06/08/18 07:52 06/08/18 08:00 Temperature 97.9 F 97.7 F Pulse Rate 57 L 57 L 64 Respiratory Rate 19 22 20 Blood Pressure 105/56 L 123/58 L Pulse Oximetry 96 97 96 Pulse Oximetry [Exertion on Room Air] Pulse Oximetry [Resting on Room Air] Pulse Oximetry [Resting with Oxygen] Intake & Output 06/07/18 06/08/18 06/08/18 18:59 06:59 18:59 Intake Total 1200 / 1200 Balance 1200 / 1200 Intake: Oral 1200 / 1200 Other: # Incontinent Voids 6 # Incontinent Bowel Movements 2 Narrative: GENERAL: NAD, A&Ox3, obese HEAD: Normocephalic. NECK: Supple, trachea midline. No lymphadenopathy. EYES: No scleral icterus. No injection or drainage. CARDIOVASCULAR: Regular rate and rhythm without murmurs, gallops, or rubs. RESPIRATORY: Breath sounds equal bilaterally. No accessory muscle use. GASTROINTESTINAL: Abdomen soft, non-tender, nondistended. MUSCULOSKELETAL: No cyanosis, trace lower extremity edema. SKIN: Warm and dry. NEURO: No focal neurological deficits. Results - Labs CBC & Chem 7: 06/08/18 06:56 06/08/18 06:56 Laboratory Results - last 24 hr 06/08/18 06/08/1818 06:56 06:56 09:12 WBC 6.1 RBC 3.39 L Hgb 9.0 L Hct 28.5 L MCV 84.1 MCH 26.7 L MCHC 31.7 L RDW 16.7 Plt Count 165 MPV 8.6 Neut % (Auto) 61.4 Lymph % (Auto) 27.5 [place] % (Auto) 6.8 Eos % (Auto) 3.6 Baso % (Auto) 0.7 Neut # (Auto) 3.8 Lymph # (Auto) 1.7 [place] # (Auto) 0.4 Eos # (Auto) 0.2 Baso # (Auto) 0.0 WBC Differential . Differential Comment Auto diff final Sodium 141 Potassium 4.1 Chloride 96 L Carbon Dioxide 41.3 H Anion Gap 4 L BUN 14 Creatinine 1.12 Estimated GFR 68 L POC Glucose 120 H Random Glucose 98 Calcium 8.4 L Total Bilirubin 0.3 AST 13 L ALT 12 Alkaline Phosphatase 48 Total Protein 6.4 Albumin 2.7 L - Procedures 04/30- EGD with dilatation 05/02- colonoscopy- small rectal ulcer, internal and external hemorrhoids Assessment and Plan - Assessment (1) Respiratory failure with hypoxia and hypercapnia Code(s): J96.91 - Respiratory failure, unspecified with hypoxia; J96.92 - Respiratory failure, unspecified with hypercapnia Status: Acute (2) Acute kidney injury superimposed on CKD Code(s): N17.9 - Acute kidney failure, unspecified; N18.9 - Chronic kidney disease, unspecified Status: Acute (3) Acute metabolic encephalopathy Code(s): G93.41 - Metabolic encephalopathy Status: Resolved (4) Altered mental status Code(s): R41.82 - Altered mental status, unspecified Status: Resolved (5) Obesity Code(s): E66.9 - Obesity, unspecified Status: Chronic - Plan 57 year old male admitted with hypercapnia and encephalopathy Continue working with PT. Temporary NSAIDs continued. No distress today, resting comfortably. Dysphagia with GERD symptoms S/P EGD with dilatation Continue regular consistency diet Acute on chronic hypercapnic respiratory insufficiency History of PMH COPD, Obstructive sleep apnea. Does not tolerate CPAP mask due to the noise. Status post treatment of MRSA pneumonia Previously on home oxygen Continue CPAP at night [place] encourage ambulation pulmonology following h/o CHF CAD Hx of CABG no current exacerbation echo from September showed EF 55-60% Continue ASA, Amiodarone 200mg BID, Coreg 12.5mg BID, Clonidine 0.1mg Q8, Plavix 75mg daily, Lasix 40 mg twice daily Hypertension Continue carvedilol 12.5 mg po bid continue clonidine Diabetes Mellitus, type 2 Well controlled. Continue sliding-scale coverage Levemir 10 units twice daily Continue ADA/cardiac diet Scrotal pain Per Dr. Mendoza likely from anasarca. Improved Hypotestosteronism Periodic testosterone dosing for energy level, initially diagnosed near 0 Left upper and lower extremity weakness Disc herniation is present, but nonsurgical Improved with steroids Morbid obesity/debility Continue PT and OT daily to mobilize the patient more. Slowly improving WEIGHT LOSS recommended Insomnia Continue Trazodone 100mg HS, Melatonin HS. Constipation, chronic Laxative regimen simplified, senna 17.2 mg nightly scheduled his new solo therapy for regularity Iron deficiency anemia Continue PO Iron Left Knee Pain possible strain left knee x-ray unremarkable. Continue pain control continue PT Anxiety Acute on chronic. Continue Ativan as needed. DVT Prophylaxis Lovenox Code Status: FULL CODE Discharge Planning: AWAIT SAFE PLACEMENT (1) Respiratory failure with hypoxia and hypercapnia Qualifiers: Chronicity: chronic Qualified Code(s): J96.11 - Chronic respiratory failure with hypoxia; J96.12 - Chronic respiratory failure with hypercapnia
[2018-06-08] MEDS: Enoxaparin Inj 40 MG/0.4 ML Syringe SQ SCH (17:32)
[2018-06-08] MEDS: traZODone 50 MG Tablet PO SCH (21:03)
[2018-06-09] MEDS: LORazepam 1 MG Tablet PO PRN ×2 (03:21→09:38)
[2018-06-09] MEDS: guaiFENesin 600 MG ER Tablet PO SCH ×2 (09:40→21:54)
[2018-06-09] MEDS: Allopurinol 100 MG Tablet PO SCH (09:40)
[2018-06-09] MEDS: Naproxen 250 MG Tablet PO SCH ×2 (09:40→21:53)
[2018-06-09] MEDS: Amiodarone 200 MG Tablet PO SCH ×2 (09:41→21:53)
[2018-06-09] MEDS: Furosemide 40 MG Tablet PO SCH ×2 (09:41→21:53)
[2018-06-09] MEDS: Gabapentin 100 MG Capsule PO SCH ×3 (09:41→17:39)
[2018-06-09] MEDS: Famotidine 20 MG Tablet PO SCH ×2 (09:41→21:53)
[2018-06-09] MEDS: Ferrous Sulfate 325 MG Tablet PO SCH (09:41)
[2018-06-09] MEDS: Carvedilol 12.5 MG Tablet PO SCH ×2 (09:42→21:53)
[2018-06-09] MEDS: Nystatin 100,000 UNITS/GM Powder 15 GM Bottle TOPICAL SCH ×3 (09:42→21:55)
[2018-06-09] MEDS: Methylnaltrexone Inj 12 MG/0.6 ML Vial SQ SCH (09:42)
[2018-06-09] MEDS: Sodium Chloride 0.65% Nasal Drops/Spray 30 ML Bottle EACH NARE SCH ×2 (09:43→21:54)
[2018-06-09] MEDS: Lactic Acid (Ammonium Lactate) 12% Lotion 225 GM Bottle TOPICAL SCH ×2 (09:43→21:54)
[2018-06-09] MEDS: Calamine/Pramoxine Lotion 180 ML Bottle TOPICAL SCH ×2 (09:43→21:54)
[2018-06-09] MEDS: Insulin NovoLOG Aspart Correctional Sugar Inj SQ SCH ×4 (09:47→21:55)
[2018-06-09] MEDS: Insulin Detemir Inj 1,000 UNIT/10 ML Vial SQ SCH ×2 (09:47→21:54)
--- NOTE | 2018-06-09 11:57 | P.PNIM ---
Subjective Interval history: No acute complaints today. Patient's continue to work well with PT. Discharge option to home slightly limited because his brother will be undergoing surgery. His only complaint today is anxiety. Physical Exam Vital signs: Vital Signs 06/08/18 12:00 06/08/18 15:03 06/08/18 16:00 Temperature 98 F 98.2 F Pulse Rate 55 L 64 59 L Respiratory Rate 18 22 16 Blood Pressure 111/58 L 123/59 L Pulse Oximetry 99 99 06/08/18 20:00 06/08/18 22:04 06/09/18 00:00 Temperature 97.7 F 97.6 F Pulse Rate 65 96 H 61 Respiratory Rate 18 20 18 Blood Pressure 112/66 106/58 L Pulse Oximetry 97 97 99 06/09/18 04:00 06/09/18 07:58 06/09/18 08:00 Temperature 98.0 F 96.8 F L Pulse Rate 62 53 L 55 L Respiratory Rate 18 16 20 Blood Pressure 111/76 100/62 Pulse Oximetry 98 96 98 Intake & Output 06/08/18 06/09/18 06/09/18 18:59 06:59 18:59 Intake Total 720 / 720 Balance 720 / 720 Weight 137.8 kg Intake: Oral 720 / 720 Other: Date of Last Bowel Movement 06/08/18 Narrative: GENERAL: NAD, A&Ox3, obese HEAD: Normocephalic. NECK: Supple, trachea midline. No lymphadenopathy. EYES: No scleral icterus. No injection or drainage. CARDIOVASCULAR: Regular rate and rhythm without murmurs, gallops, or rubs. RESPIRATORY: Breath sounds equal bilaterally. No accessory muscle use. GASTROINTESTINAL: Abdomen soft, non-tender, nondistended. MUSCULOSKELETAL: No cyanosis, trace lower extremity edema. SKIN: Warm and dry. NEURO: No focal neurological deficits. Results - Labs CBC & Chem 7: 06/08/18 06:56 06/08/18 06:56 Laboratory Results - last 24 hr 06/08/18 06/08/18 06/08/18 12:11 17:33 20:11 POC Glucose 141 H 236 H 114 H 06/09/18 07:40 POC Glucose 144 H - Procedures 04/30- EGD with dilatation 05/02- colonoscopy- small rectal ulcer, internal and external hemorrhoids Assessment and Plan - Assessment (1) Respiratory failure with hypoxia and hypercapnia Code(s): J96.91 - Respiratory failure, unspecified with hypoxia; J96.92 - Respiratory failure, unspecified with hypercapnia Status: Acute (2) Acute kidney injury superimposed on CKD Code(s): N17.9 - Acute kidney failure, unspecified; N18.9 - Chronic kidney disease, unspecified Status: Acute (3) Acute metabolic encephalopathy Code(s): G93.41 - Metabolic encephalopathy Status: Resolved (4) Altered mental status Code(s): R41.82 - Altered mental status, unspecified Status: Resolved (5) Obesity Code(s): E66.9 - Obesity, unspecified Status: Chronic - Plan 57 year old male admitted with hypercapnia and encephalopathy Discontinue Ativan, initiate clonazepam, in regards to anxiety. Continue working with PT. Temporary NSAIDs completing. No distress today, resting comfortably. Dysphagia with GERD symptoms S/P EGD with dilatation Continue regular consistency diet Acute on chronic hypercapnic respiratory insufficiency History of PMH COPD, Obstructive sleep apnea. Does not tolerate CPAP mask due to the noise. Status post treatment of MRSA pneumonia Previously on home oxygen Continue CPAP at night [place] encourage ambulation pulmonology following h/o CHF CAD Hx of CABG no current exacerbation echo from September showed EF 55-60% Continue ASA, Amiodarone 200mg BID, Coreg 12.5mg BID, Clonidine 0.1mg Q8, Plavix 75mg daily, Lasix 40 mg twice daily Hypertension Continue carvedilol 12.5 mg po bid continue clonidine Diabetes Mellitus, type 2 Well controlled. Continue sliding-scale coverage Levemir 10 units twice daily Continue ADA/cardiac diet Scrotal pain Per Dr. Mendoza likely from anasarca. Improved Hypotestosteronism Periodic testosterone dosing for energy level, initially diagnosed near 0 Left upper and lower extremity weakness Disc herniation is present, but nonsurgical Improved with steroids Morbid obesity/debility Continue PT and OT daily to mobilize the patient more. Slowly improving WEIGHT LOSS recommended Insomnia Continue Trazodone 100mg HS, Melatonin HS. Constipation, chronic Laxative regimen simplified, senna 17.2 mg nightly scheduled his new solo therapy for regularity Iron deficiency anemia Continue PO Iron Left Knee Pain possible strain left knee x-ray unremarkable. Continue pain control continue PT Anxiety Acute on chronic. Continue Ativan as needed. DVT Prophylaxis Lovenox Code Status: FULL CODE Discharge Planning: AWAIT SAFE PLACEMENT (1) Respiratory failure with hypoxia and hypercapnia Qualifiers: Chronicity: chronic Qualified Code(s): J96.11 - Chronic respiratory failure with hypoxia; J96.12 - Chronic respiratory failure with hypercapnia
[2018-06-09] MEDS ORDERED: clonazePAM 0.5 MG Tablet PO SCH (14:00)
[2018-06-09] MEDS: Enoxaparin Inj 40 MG/0.4 ML Syringe SQ SCH (17:39)
[2018-06-09] MEDS: clonazePAM 1 MG Tablet PO SCH (21:53)
[2018-06-09] MEDS: traZODone 50 MG Tablet PO SCH (21:53)
[2018-06-10] MEDS: clonazePAM 1 MG Tablet PO SCH ×3 (06:13→21:09)
[2018-06-10] MEDS: Nystatin 100,000 UNITS/GM Powder 15 GM Bottle TOPICAL SCH ×3 (06:14→21:11)
[2018-06-10] MEDS: Gabapentin 100 MG Capsule PO SCH ×3 (09:19→18:22)
[2018-06-10] MEDS: Allopurinol 100 MG Tablet PO SCH (09:19)
[2018-06-10] MEDS: Carvedilol 12.5 MG Tablet PO SCH ×2 (09:19→21:09)
[2018-06-10] MEDS: Furosemide 40 MG Tablet PO SCH ×2 (09:19→21:09)
[2018-06-10] MEDS: Famotidine 20 MG Tablet PO SCH ×2 (09:19→21:09)
[2018-06-10] MEDS: Amiodarone 200 MG Tablet PO SCH ×2 (09:19→21:09)
[2018-06-10] MEDS: Methylnaltrexone Inj 12 MG/0.6 ML Vial SQ SCH (09:20)
[2018-06-10] MEDS: guaiFENesin 600 MG ER Tablet PO SCH ×2 (09:20→21:09)
[2018-06-10] MEDS: Sodium Chloride 0.65% Nasal Drops/Spray 30 ML Bottle EACH NARE SCH ×2 (09:26→21:10)
[2018-06-10] MEDS: Calamine/Pramoxine Lotion 180 ML Bottle TOPICAL SCH ×2 (09:26→21:10)
[2018-06-10] MEDS: Lactic Acid (Ammonium Lactate) 12% Lotion 225 GM Bottle TOPICAL SCH ×2 (09:27→21:10)
[2018-06-10] MEDS: Insulin NovoLOG Aspart Correctional Sugar Inj SQ SCH ×4 (09:27→21:10)
[2018-06-10] MEDS: Insulin Detemir Inj 1,000 UNIT/10 ML Vial SQ SCH ×2 (09:28→21:10)
[2018-06-10] MEDS: Ferrous Sulfate 325 MG Tablet PO SCH (09:29)
--- NOTE | 2018-06-10 12:08 | P.PNIM ---
Subjective Interval history: No complaints from the patient which are new. He still complains of left knee pain and right ankle pain. No other complaints. Physical Exam Vital signs: Vital Signs 06/09/18 14:11 06/09/18 16:00 06/09/18 19:25 Temperature 98.7 F Pulse Rate 62 57 L Respiratory Rate 16 19 Blood Pressure 110/61 Pulse Oximetry 96 96 06/09/18 19:26 06/09/18 20:00 06/10/18 00:00 Temperature 100.8 F H 97.3 F L Pulse Rate 63 62 56 L Respiratory Rate 18 16 20 Blood Pressure 112/54 L 109/65 Pulse Oximetry 94 L 94 L 06/10/18 04:00 06/10/18 07:27 06/10/18 07:44 Temperature 97.6 F 97.6 F Pulse Rate 94 H 80 80 Respiratory Rate 20 20 20 Blood Pressure 99/60 L 99/60 L Pulse Oximetry 94 L 94 L 94 L 06/10/18 08:00 Temperature 97.3 F L Pulse Rate 55 L Respiratory Rate 20 Blood Pressure 101/53 L Pulse Oximetry 99 Intake & Output 06/09/18 06/10/18 06/10/18 18:59 06:59 18:59 Intake Total 960 / 960 Balance 960 / 960 Weight 137.4 kg Intake: Oral 960 / 960 Other: # Voids 6 6 # Incontinent Voids 4 Date of Last Bowel Movement 06/08/18 06/08/18 06/08/18 Weight On Admission 137.2 kg Narrative: GENERAL: NAD, A&Ox3, obese HEAD: Normocephalic. NECK: Supple, trachea midline. No lymphadenopathy. EYES: No scleral icterus. No injection or drainage. CARDIOVASCULAR: Regular rate and rhythm without murmurs, gallops, or rubs. RESPIRATORY: Breath sounds equal bilaterally. No accessory muscle use. GASTROINTESTINAL: Abdomen soft, non-tender, nondistended. MUSCULOSKELETAL: No cyanosis, trace lower extremity edema. SKIN: Warm and dry. NEURO: No focal neurological deficits. Results - Labs CBC & Chem 7: 06/08/18 06:56 06/08/18 06:56 - Procedures 04/30- EGD with dilatation 05/02- colonoscopy- small rectal ulcer, internal and external hemorrhoids Assessment and Plan - Assessment (1) Respiratory failure with hypoxia and hypercapnia Code(s): J96.91 - Respiratory failure, unspecified with hypoxia; J96.92 - Respiratory failure, unspecified with hypercapnia Status: Acute (2) Acute kidney injury superimposed on CKD Code(s): N17.9 - Acute kidney failure, unspecified; N18.9 - Chronic kidney disease, unspecified Status: Acute (3) Acute metabolic encephalopathy Code(s): G93.41 - Metabolic encephalopathy Status: Resolved (4) Altered mental status Code(s): R41.82 - Altered mental status, unspecified Status: Resolved (5) Obesity Code(s): E66.9 - Obesity, unspecified Status: Chronic - Plan 57 year old male admitted with hypercapnia and encephalopathy Clonazepam appears to be working thus far. Pain is present, but chronic. No other complaints. Dysphagia with GERD symptoms S/P EGD with dilatation Continue regular consistency diet Acute on chronic hypercapnic respiratory insufficiency History of PMH COPD, Obstructive sleep apnea. Does not tolerate CPAP mask due to the noise. Status post treatment of MRSA pneumonia Previously on home oxygen Continue CPAP at night [place] encourage ambulation pulmonology following h/o CHF CAD Hx of CABG no current exacerbation echo from September showed EF 55-60% Continue ASA, Amiodarone 200mg BID, Coreg 12.5mg BID, Clonidine 0.1mg Q8, Plavix 75mg daily, Lasix 40 mg twice daily Hypertension Continue carvedilol 12.5 mg po bid continue clonidine Diabetes Mellitus, type 2 Well controlled. Continue sliding-scale coverage Levemir 10 units twice daily Continue ADA/cardiac diet Scrotal pain Per Dr. Mendoza likely from anasarca. Improved Hypotestosteronism Periodic testosterone dosing for energy level, initially diagnosed near 0 Left upper and lower extremity weakness Disc herniation is present, but nonsurgical Improved with steroids Morbid obesity/debility Continue PT and OT daily to mobilize the patient more. Slowly improving WEIGHT LOSS recommended Insomnia Continue Trazodone 100mg HS, Melatonin HS. Constipation, chronic Laxative regimen simplified, senna 17.2 mg nightly scheduled his new solo therapy for regularity Iron deficiency anemia Continue PO Iron Left Knee Pain possible strain left knee x-ray unremarkable. Continue pain control continue PT Anxiety Acute on chronic. Continue Ativan as needed. DVT Prophylaxis Lovenox Code Status: FULL CODE Discharge Planning: AWAIT SAFE PLACEMENT (1) Respiratory failure with hypoxia and hypercapnia Qualifiers: Chronicity: chronic Qualified Code(s): J96.11 - Chronic respiratory failure with hypoxia; J96.12 - Chronic respiratory failure with hypercapnia
[2018-06-10] MEDS: Enoxaparin Inj 40 MG/0.4 ML Syringe SQ SCH (18:22)
[2018-06-10] MEDS: traZODone 50 MG Tablet PO SCH (21:09)
[2018-06-10] MEDS: Melatonin 5 MG Tablet PO PRN (21:11)
[2018-06-11] MEDS: clonazePAM 1 MG Tablet PO SCH ×3 (05:09→21:37)
[2018-06-11] MEDS: Nystatin 100,000 UNITS/GM Powder 15 GM Bottle TOPICAL SCH ×3 (05:09→21:43)
[2018-06-11] MEDS: Insulin NovoLOG Aspart Correctional Sugar Inj SQ SCH ×4 (09:27→21:43)
[2018-06-11] MEDS: Ferrous Sulfate 325 MG Tablet PO SCH (09:28)
[2018-06-11] MEDS: Famotidine 20 MG Tablet PO SCH ×2 (09:28→21:37)
[2018-06-11] MEDS: Amiodarone 200 MG Tablet PO SCH ×2 (09:28→21:37)
[2018-06-11] MEDS: Furosemide 40 MG Tablet PO SCH ×2 (09:28→21:37)
[2018-06-11] MEDS: Carvedilol 12.5 MG Tablet PO SCH ×2 (09:28→21:37)
[2018-06-11] MEDS: Allopurinol 100 MG Tablet PO SCH (09:28)
[2018-06-11] MEDS: guaiFENesin 600 MG ER Tablet PO SCH ×2 (09:29→21:36)
[2018-06-11] MEDS: Insulin Detemir Inj 1,000 UNIT/10 ML Vial SQ SCH ×2 (09:31→21:42)
[2018-06-11] MEDS: Gabapentin 100 MG Capsule PO SCH ×3 (09:33→17:41)
[2018-06-11] MEDS: Methylnaltrexone Inj 12 MG/0.6 ML Vial SQ SCH (09:33)
[2018-06-11] MEDS: Lactic Acid (Ammonium Lactate) 12% Lotion 225 GM Bottle TOPICAL SCH ×2 (09:34→21:42)
[2018-06-11] MEDS: Sodium Chloride 0.65% Nasal Drops/Spray 30 ML Bottle EACH NARE SCH ×2 (09:34→21:41)
[2018-06-11] MEDS: Calamine/Pramoxine Lotion 180 ML Bottle TOPICAL SCH ×2 (09:36→21:42)
[2018-06-11] MEDS ORDERED: Bisacodyl 10 MG Supp RECTAL PRN (15:03)
--- NOTE | 2018-06-11 15:15 | P.PNIM ---
Subjective Interval history: No new complaints from patient today. He is working well with PT, PT plan this afternoon. No fevers overnight. Physical Exam Vital signs: Vital Signs 06/10/18 16:00 06/10/18 19:57 06/10/18 20:00 Temperature 98.3 F 97.8 F Pulse Rate 65 60 61 Respiratory Rate 19 16 17 Blood Pressure 142/87 H 122/58 L Pulse Oximetry 99 96 98 06/11/18 00:00 06/11/18 04:00 06/11/18 04:16 Temperature 97.9 F 98 F Pulse Rate 60 58 L 61 Respiratory Rate 17 16 Blood Pressure 127/60 114/55 L Pulse Oximetry 99 98 06/11/18 08:00 06/11/18 08:17 06/11/18 12:00 Temperature 97.3 F L 97.9 F Pulse Rate 54 L 61 61 Respiratory Rate 18 18 Blood Pressure 104/57 L 112/54 L Pulse Oximetry 97 98 96 Intake & Output 06/10/18 06/11/18 06/11/18 18:59 06:59 18:59 Intake Total 960 / 960 Balance 960 / 960 Weight 137.4 kg 137.3 kg Intake: Oral 960 / 960 Other: # Voids 6 7 # Incontinent Voids 4 Date of Last Bowel Movement 06/08/18 06/10/18 06/10/18 Narrative: GENERAL: NAD, A&Ox3, obese HEAD: Normocephalic. NECK: Supple, trachea midline. No lymphadenopathy. EYES: No scleral icterus. No injection or drainage. CARDIOVASCULAR: Regular rate and rhythm without murmurs, gallops, or rubs. RESPIRATORY: Breath sounds equal bilaterally. No accessory muscle use. GASTROINTESTINAL: Abdomen soft, non-tender, nondistended. MUSCULOSKELETAL: No cyanosis, trace lower extremity edema. SKIN: Warm and dry. NEURO: No focal neurological deficits. Results - Labs CBC & Chem 7: 06/08/18 06:56 06/08/18 06:56 Laboratory Results - last 24 hr 06/10/18 06/10/18 17:13 19:50 POC Glucose 144 H 135 H - Procedures 04/30- EGD with dilatation 05/02- colonoscopy- small rectal ulcer, internal and external hemorrhoids Assessment and Plan - Assessment (1) Respiratory failure with hypoxia and hypercapnia Code(s): J96.91 - Respiratory failure, unspecified with hypoxia; J96.92 - Respiratory failure, unspecified with hypercapnia Status: Acute (2) Acute kidney injury superimposed on CKD Code(s): N17.9 - Acute kidney failure, unspecified; N18.9 - Chronic kidney disease, unspecified Status: Acute (3) Acute metabolic encephalopathy Code(s): G93.41 - Metabolic encephalopathy Status: Resolved (4) Altered mental status Code(s): R41.82 - Altered mental status, unspecified Status: Resolved (5) Obesity Code(s): E66.9 - Obesity, unspecified Status: Chronic - Plan 57 year old male admitted with hypercapnia and encephalopathy Patient's anxiety is stable, clonazepam appears to be working thus far. Pain is present, but chronic. No other complaints. Dysphagia with GERD symptoms S/P EGD with dilatation Continue regular consistency diet Acute on chronic hypercapnic respiratory insufficiency History of PMH COPD, Obstructive sleep apnea. Does not tolerate CPAP mask due to the noise. Status post treatment of MRSA pneumonia Previously on home oxygen Continue CPAP at night [place] encourage ambulation pulmonology following h/o CHF CAD Hx of CABG no current exacerbation echo from September showed EF 55-60% Continue ASA, Amiodarone 200mg BID, Coreg 12.5mg BID, Clonidine 0.1mg Q8, Plavix 75mg daily, Lasix 40 mg twice daily Hypertension Continue carvedilol 12.5 mg po bid continue clonidine Diabetes Mellitus, type 2 Well controlled. Continue sliding-scale coverage Levemir 10 units twice daily Continue ADA/cardiac diet Scrotal pain Per Dr. Mendoza likely from anasarca. Improved Hypotestosteronism Periodic testosterone dosing for energy level, initially diagnosed near 0 Left upper and lower extremity weakness Disc herniation is present, but nonsurgical Improved with steroids Morbid obesity/debility Continue PT and OT daily to mobilize the patient more. Slowly improving WEIGHT LOSS recommended Insomnia Continue Trazodone 100mg HS, Melatonin HS. Constipation, chronic Laxative regimen simplified, senna 17.2 mg nightly scheduled his new solo therapy for regularity Iron deficiency anemia Continue PO Iron Left Knee Pain possible strain left knee x-ray unremarkable. Continue pain control continue PT Anxiety Acute on chronic. Continue Ativan as needed. DVT Prophylaxis Lovenox Code Status: FULL CODE Discharge Planning: AWAIT SAFE PLACEMENT (1) Respiratory failure with hypoxia and hypercapnia Qualifiers: Chronicity: chronic Qualified Code(s): J96.11 - Chronic respiratory failure with hypoxia; J96.12 - Chronic respiratory failure with hypercapnia
[2018-06-11] MEDS: Enoxaparin Inj 40 MG/0.4 ML Syringe SQ SCH (17:41)
[2018-06-11] MEDS: traZODone 50 MG Tablet PO SCH (21:36)
[2018-06-11] MEDS: Senna/Docusate Sodium 8.6/50 MG Tablet PO SCH (21:37)
[2018-06-11] MEDS: Melatonin 5 MG Tablet PO PRN (21:45)
[2018-06-12] MEDS: Nystatin 100,000 UNITS/GM Powder 15 GM Bottle TOPICAL SCH ×3 (05:43→21:44)
[2018-06-12] MEDS: clonazePAM 1 MG Tablet PO SCH ×3 (05:43→21:36)
[2018-06-12] MEDS: Carvedilol 12.5 MG Tablet PO SCH ×2 (08:35→21:41)
[2018-06-12] MEDS: Senna/Docusate Sodium 8.6/50 MG Tablet PO SCH ×2 (08:35→21:36)
[2018-06-12] MEDS: Gabapentin 100 MG Capsule PO SCH ×3 (08:35→18:22)
[2018-06-12] MEDS: Allopurinol 100 MG Tablet PO SCH (08:35)
[2018-06-12] MEDS: Ferrous Sulfate 325 MG Tablet PO SCH (08:36)
[2018-06-12] MEDS: Furosemide 40 MG Tablet PO SCH ×2 (08:36→21:37)
[2018-06-12] MEDS: Famotidine 20 MG Tablet PO SCH ×2 (08:36→21:36)
[2018-06-12] MEDS: Insulin Detemir Inj 1,000 UNIT/10 ML Vial SQ SCH ×2 (08:36→21:43)
[2018-06-12] MEDS: guaiFENesin 600 MG ER Tablet PO SCH ×2 (08:36→21:36)
[2018-06-12] MEDS: Amiodarone 200 MG Tablet PO SCH ×2 (08:36→21:36)
[2018-06-12] MEDS: Insulin NovoLOG Aspart Correctional Sugar Inj SQ SCH ×4 (08:38→21:43)
[2018-06-12] MEDS: Sodium Chloride 0.65% Nasal Drops/Spray 30 ML Bottle EACH NARE SCH ×2 (08:38→21:42)
[2018-06-12] MEDS: Lactic Acid (Ammonium Lactate) 12% Lotion 225 GM Bottle TOPICAL SCH ×2 (08:39→21:42)
[2018-06-12] MEDS: Psyllium Fiber SF/GF 6 GM Packet PO SCH (08:39)
[2018-06-12] MEDS: Calamine/Pramoxine Lotion 180 ML Bottle TOPICAL SCH ×2 (08:40→21:42)
[2018-06-12] MEDS: Methylnaltrexone Inj 12 MG/0.6 ML Vial SQ SCH (09:41)
--- NOTE | 2018-06-12 11:07 | P.PN ---
Subjective Interval history: Follow-up visit this patient with GERD symptoms status post EGD dilatation, acute on chronic hypercapnic respiratory failure, COPD, TANA. Patient seen and examined today. Reports he is doing well. States he wanted to go home. Denies pain and discomfort. Denies SOB/ dyspnea. Denies chest pain, palpitations, headaches, dizziness. Denies fevers, chills, n/v/d. Physical Exam Vital signs: Vital Signs 06/11/18 12:00 06/11/18 16:00 06/11/18 19:32 Temperature 97.9 F 98.0 F Pulse Rate 61 52 L 60 Respiratory Rate 18 18 18 Blood Pressure 112/54 L 139/65 Pulse Oximetry 96 100 06/11/18 20:00 06/12/18 00:00 06/12/18 03:00 Temperature 97.9 F 98.8 F 97.4 F L Pulse Rate 62 56 L 57 L Respiratory Rate 18 20 20 Blood Pressure 104/63 95/52 L 102/53 L Pulse Oximetry 99 98 98 06/12/18 08:00 06/12/18 08:29 Temperature 98.2 F Pulse Rate 57 L 58 L Respiratory Rate 16 20 Blood Pressure 113/59 L Pulse Oximetry 100 99 Intake & Output 06/11/18 06/12/18 06/12/18 18:59 06:59 18:59 Intake Total 600 / 600 Balance 600 / 600 Weight 138.9 kg Intake: Oral 600 / 600 Other: # Voids 6 6 Date of Last Bowel Movement 06/10/18 06/11/18 # Bowel Movements 1 Narrative: GENERAL: This is an obese male, in no apparent distress. SKIN: Warm and dry. HEENT: Normocephalic. Nose without bleeding. Airway patent. NECK: Trachea midline. CARDIOVASCULAR: Regular rate and rhythm without murmurs, gallops, or rubs. RESPIRATORY: Diminished bases. Coarse breath sounds. Minimal expiratory wheeze. GASTROINTESTINAL: Abdomen soft, non-tender, obese. Bowel Sounds normoactive x4. MUSCULOSKELETAL: Extremities without clubbing, cyanosis, or edema. NEUROLOGICAL: Awake and alert. No focal neuro deficit. Moves all extremities. Normal speech. Results - Labs CBC & Chem 7: 06/08/18 06:56 06/08/18 06:56 Laboratory Results - last 24 hr 06/11/18 06/11/18 15:50 20:10 POC Glucose 182 H Nasal Screen MRSA (PCR) Positive Staph aureus (PCR) Positive Microbiology 06/11/18 18:45 Sputum - Expectorated Sputum Gram Stain - Final - Procedures 04/30- EGD with dilatation 05/02- colonoscopy- small rectal ulcer, internal and external hemorrhoids Assessment and Plan - Assessment (1) Respiratory failure with hypoxia and hypercapnia Code(s): J96.91 - Respiratory failure, unspecified with hypoxia; J96.92 - Respiratory failure, unspecified with hypercapnia Status: Acute (2) Acute kidney injury superimposed on CKD Code(s): N17.9 - Acute kidney failure, unspecified; N18.9 - Chronic kidney disease, unspecified Status: Acute (3) Acute metabolic encephalopathy Code(s): G93.41 - Metabolic encephalopathy Status: Resolved (4) Altered mental status Code(s): R41.82 - Altered mental status, unspecified Status: Resolved (5) Obesity Code(s): E66.9 - Obesity, unspecified Status: Chronic - Plan 57 year old male admitted with hypercapnia and encephalopathy Dysphagia with GERD symptoms S/P EGD with dilatation -Continue regular consistency diet Acute on chronic hypercapnic respiratory insufficiency History of PMH COPD, Obstructive sleep apnea. O2 dependent -Does not tolerate CPAP mask due to the noise. Continue to recommend CPAP at night -Status post treatment of MRSA pneumonia -[place] -Encourage ambulation -Pulmonology following CHF, not on exacerbation CAD Hx of CABG Hypertension -Echo from September showed EF 55-60% -Continue ASA, Amiodarone 200mg BID, Coreg 12.5mg BID, Clonidine 0.1mg Q8, Plavix 75mg daily, Lasix 40 mg twice daily -Monitor BP trend Diabetes Mellitus, type 2 -Continue sliding-scale coverage -Levemir 10 units twice daily -Continue ADA/cardiac diet Scrotal pain Per Dr. Mendoza likely from anasarca. -Improved Hypotestosteronism -Periodic testosterone dosing for energy level, initially diagnosed near 0 Left upper and lower extremity weakness Disc herniation is present, but nonsurgical -Improved with steroids Morbid obesity/debility Left knee pain -Continue PT and OT daily to mobilize the patient more. -Slowly improving -WEIGHT LOSS recommended -Knee x-ray unremarkable -Pain control with bowel regimen Insomnia -Continue Trazodone 100mg HS, Melatonin HS. Constipation, chronic -Laxative regimen simplified, senna 17.2 mg nightly scheduled his new solo therapy for regularity Iron deficiency anemia -Continue PO Iron Anxiety Acute on chronic -Continue Ativan as needed. DVT Prophylaxis Lovenox Code Status: Full code Discussed Condition With: Patient, nursing, Dr. Medina Discharge Planning: Plan to DC home with home health care arrangements are made. Brother is unable to take care of the patient as he is going for an open heart surgery. (1) Respiratory failure with hypoxia and hypercapnia Qualifiers: Chronicity: chronic Qualified Code(s): J96.11 - Chronic respiratory failure with hypoxia; J96.12 - Chronic respiratory failure with hypercapnia
[2018-06-12] MEDS: Enoxaparin Inj 40 MG/0.4 ML Syringe SQ SCH (18:22)
[2018-06-12] MEDS: traZODone 50 MG Tablet PO SCH (21:36)
[2018-06-13] MEDS: clonazePAM 1 MG Tablet PO SCH ×3 (05:39→22:33)
[2018-06-13] MEDS: Nystatin 100,000 UNITS/GM Powder 15 GM Bottle TOPICAL SCH ×3 (05:40→22:45)
[2018-06-13] MEDS: Insulin NovoLOG Aspart Correctional Sugar Inj SQ SCH ×4 (09:01→20:57)
[2018-06-13] MEDS: Sodium Chloride 0.65% Nasal Drops/Spray 30 ML Bottle EACH NARE SCH ×2 (09:02→20:55)
[2018-06-13] MEDS: Calamine/Pramoxine Lotion 180 ML Bottle TOPICAL SCH ×2 (09:02→20:55)
[2018-06-13] MEDS: Lactic Acid (Ammonium Lactate) 12% Lotion 225 GM Bottle TOPICAL SCH ×2 (09:03→20:56)
[2018-06-13] MEDS: Ferrous Sulfate 325 MG Tablet PO SCH (09:04)
[2018-06-13] MEDS: Methylnaltrexone Inj 12 MG/0.6 ML Vial SQ SCH (09:04)
[2018-06-13] MEDS: Furosemide 40 MG Tablet PO SCH ×2 (09:04→20:54)
[2018-06-13] MEDS: Carvedilol 12.5 MG Tablet PO SCH ×2 (09:04→20:55)
[2018-06-13] MEDS: guaiFENesin 600 MG ER Tablet PO SCH ×2 (09:04→20:51)
[2018-06-13] MEDS: Senna/Docusate Sodium 8.6/50 MG Tablet PO SCH ×2 (09:04→20:51)
[2018-06-13] MEDS: Famotidine 20 MG Tablet PO SCH ×2 (09:04→20:53)
[2018-06-13] MEDS: Gabapentin 100 MG Capsule PO SCH ×3 (09:04→17:42)
[2018-06-13] MEDS: Amiodarone 200 MG Tablet PO SCH ×2 (09:05→20:55)
[2018-06-13] MEDS: Allopurinol 100 MG Tablet PO SCH (09:05)
[2018-06-13] MEDS: Psyllium Fiber SF/GF 6 GM Packet PO SCH (09:05)
[2018-06-13] MEDS: Insulin Detemir Inj 1,000 UNIT/10 ML Vial SQ SCH ×2 (09:06→20:57)
--- NOTE | 2018-06-13 09:53 | P.PN ---
Subjective Interval history: Follow-up visit this patient with GERD symptoms status post EGD dilatation, acute on chronic hypercapnic respiratory failure, COPD, TANA. Patient seen and examined today. Reports he is doing well. Denies pain and discomfort. Denies SOB/ dyspnea. Denies chest pain, palpitations, headaches, dizziness. Denies fevers, chills, n/v/d. Physical Exam Vital signs: Vital Signs 06/12/18 12:00 06/12/18 16:00 06/12/18 20:00 Temperature 98.6 F 98.3 F 97.8 F Pulse Rate 59 L 58 L 58 L Respiratory Rate 16 16 18 Blood Pressure 124/58 L 116/56 L 113/61 Pulse Oximetry 97 98 100 06/12/18 20:04 06/13/18 00:00 06/13/18 04:00 Temperature 98.9 F 97.7 F Pulse Rate 64 57 L 68 Respiratory Rate 14 18 18 Blood Pressure 93/54 L 110/52 L Pulse Oximetry 99 97 06/13/18 07:41 06/13/18 08:00 Temperature Pulse Rate 60 Respiratory Rate 16 Blood Pressure Pulse Oximetry 97 97 Intake & Output 06/12/18 06/13/18 06/13/18 18:59 06:59 18:59 Weight 140.6 kg Narrative: GENERAL: This is an obese male, in no apparent distress. SKIN: Warm and dry. HEENT: Normocephalic. Nose without bleeding. Airway patent. NECK: Trachea midline. CARDIOVASCULAR: Regular rate and rhythm without murmurs, gallops, or rubs. RESPIRATORY: Diminished bases. Coarse breath sounds. Minimal expiratory wheeze. GASTROINTESTINAL: Abdomen soft, non-tender, obese. Bowel Sounds normoactive x4. MUSCULOSKELETAL: Extremities without clubbing, cyanosis, or edema. NEUROLOGICAL: Awake and alert. No focal neuro deficit. Moves all extremities. Normal speech. Results - Labs CBC & Chem 7: 06/08/18 06:56 06/08/18 06:56 Laboratory Results - last 24 hr 06/12/18 06/12/18 06/12/18 13:19 18:24 20:14 POC Glucose 171 H 138 H 172 H 06/13/18 07:49 POC Glucose 140 H Microbiology 06/11/18 18:45 Sputum - Expectorated Sputum Gram Stain - Final 09/17/18 18:45 Sputum - Expectorated Sputum Sputum Culture - Preliminary Heavy growth normal respiratory serg at 24 hours - Procedures 04/30- EGD with dilatation 05/02- colonoscopy- small rectal ulcer, internal and external hemorrhoids Assessment and Plan - Assessment (1) Respiratory failure with hypoxia and hypercapnia Code(s): J96.91 - Respiratory failure, unspecified with hypoxia; J96.92 - Respiratory failure, unspecified with hypercapnia Status: Acute (2) Acute kidney injury superimposed on CKD Code(s): N17.9 - Acute kidney failure, unspecified; N18.9 - Chronic kidney disease, unspecified Status: Acute (3) Acute metabolic encephalopathy Code(s): G93.41 - Metabolic encephalopathy Status: Resolved (4) Altered mental status Code(s): R41.82 - Altered mental status, unspecified Status: Resolved (5) Obesity Code(s): E66.9 - Obesity, unspecified Status: Chronic - Plan 57 year old male admitted with hypercapnia and encephalopathy Dysphagia with GERD symptoms S/P EGD with dilatation -Continue regular consistency diet Acute on chronic hypercapnic respiratory insufficiency History of PMH COPD, Obstructive sleep apnea. O2 dependent -Does not tolerate CPAP mask due to the noise. Continue to recommend CPAP at night -Status post treatment of MRSA pneumonia -[place] -Encourage ambulation -Pulmonology following CHF, not on exacerbation CAD Hx of CABG Hypertension -Echo from September showed EF 55-60% -Continue ASA, Amiodarone 200mg BID, Coreg 12.5mg BID, Clonidine 0.1mg Q8, Plavix 75mg daily, Lasix 40 mg twice daily -Monitor BP trend Diabetes Mellitus, type 2 -Continue sliding-scale coverage -Increase Levemir 12 units twice daily -Continue ADA/cardiac diet Scrotal pain Per Dr. Mendoza likely from anasarca. -Improved Hypotestosteronism -Periodic testosterone dosing for energy level, initially diagnosed near 0 Left upper and lower extremity weakness Disc herniation is present, but nonsurgical -Improved with steroids Morbid obesity/debility Left knee pain -Continue PT and OT daily to mobilize the patient more. -Slowly improving -WEIGHT LOSS recommended -Knee x-ray unremarkable -Pain control with bowel regimen Insomnia -Continue Trazodone 100mg HS, Melatonin HS. Constipation, chronic -Laxative regimen simplified, senna 17.2 mg nightly scheduled his new solo therapy for regularity Iron deficiency anemia -Continue PO Iron Anxiety Acute on chronic -Continue Ativan as needed. DVT Prophylaxis Lovenox Code Status: Full Code Discussed Condition With: Patient, nursing Discharge Planning: Plan to DC home with home health care arrangements are made. Brother is unable to take care of the patient as he is going for an open heart surgery. (1) Respiratory failure with hypoxia and hypercapnia Qualifiers: Chronicity: chronic Qualified Code(s): J96.11 - Chronic respiratory failure with hypoxia; J96.12 - Chronic respiratory failure with hypercapnia
[2018-06-13] MEDS: Enoxaparin Inj 40 MG/0.4 ML Syringe SQ SCH (17:43)
[2018-06-13] MEDS: traZODone 50 MG Tablet PO SCH (20:52)
[2018-06-14] MEDS: Nystatin 100,000 UNITS/GM Powder 15 GM Bottle TOPICAL SCH ×2 (06:13→17:21)
[2018-06-14] MEDS: clonazePAM 1 MG Tablet PO SCH ×4 (06:13→21:12)
[2018-06-14] MEDS: guaiFENesin 600 MG ER Tablet PO SCH ×2 (09:33→21:12)
[2018-06-14] MEDS: Carvedilol 12.5 MG Tablet PO SCH ×2 (09:33→21:12)
[2018-06-14] MEDS: Psyllium Fiber SF/GF 6 GM Packet PO SCH (09:34)
[2018-06-14] MEDS: Senna/Docusate Sodium 8.6/50 MG Tablet PO SCH ×2 (09:35→21:12)
[2018-06-14] MEDS: Allopurinol 100 MG Tablet PO SCH (09:35)
[2018-06-14] MEDS: Furosemide 40 MG Tablet PO SCH ×2 (09:35→21:12)
[2018-06-14] MEDS: Ferrous Sulfate 325 MG Tablet PO SCH (09:35)
[2018-06-14] MEDS: Gabapentin 100 MG Capsule PO SCH ×3 (09:35→17:22)
[2018-06-14] MEDS: Amiodarone 200 MG Tablet PO SCH ×2 (09:35→21:11)
[2018-06-14] MEDS: Insulin Detemir Inj 1,000 UNIT/10 ML Vial SQ SCH ×2 (09:36→21:12)
[2018-06-14] MEDS: Sodium Chloride 0.65% Nasal Drops/Spray 30 ML Bottle EACH NARE SCH ×2 (09:38→21:12)
[2018-06-14] MEDS: Lactic Acid (Ammonium Lactate) 12% Lotion 225 GM Bottle TOPICAL SCH ×2 (09:39→21:12)
[2018-06-14] MEDS: Calamine/Pramoxine Lotion 180 ML Bottle TOPICAL SCH ×2 (09:39→21:12)
[2018-06-14] MEDS: Insulin NovoLOG Aspart Correctional Sugar Inj SQ SCH ×4 (12:37→21:13)
[2018-06-14] MEDS: Famotidine 20 MG Tablet PO SCH ×2 (12:37→21:11)
[2018-06-14] MEDS: Methylnaltrexone Inj 12 MG/0.6 ML Vial SQ SCH (12:37)
--- NOTE | 2018-06-14 13:37 | P.PN ---
Subjective Interval history: seen with PTs inside the room patient up in wheelchair- very motivated with doing therapy no complains of pain Physical Exam Vital signs: Vital Signs 06/13/18 20:00 06/13/18 20:25 06/14/18 00:00 Temperature 97.4 F L 97.1 F L Pulse Rate 58 L 58 L 59 L Respiratory Rate 17 20 18 Blood Pressure 108/58 L 117/56 L Pulse Oximetry 99 96 06/14/18 08:00 06/14/18 08:13 06/14/18 11:58 Temperature 96.1 F L 98.3 F Pulse Rate 61 55 L 63 Respiratory Rate 17 16 18 Blood Pressure 105/51 L 108/58 L Pulse Oximetry 99 98 97 Intake & Output 06/13/18 06/14/18 06/14/18 18:59 06:59 18:59 Intake Total 960 / 960 480 / 480 Output Total 100 / 100 Balance 960 / 960 480 / 480 -100 / -100 Weight 142.4 kg Intake: Oral 960 / 960 480 / 480 Output: Stool 100 / 100 Other: # Voids 5 # Urine Diapers 6 Date of Last Bowel Movement 06/14/18 # Bowel Movements 1 0 1 Narrative: GENERAL: This is an obese male, in no apparent distress. awake and alert SKIN: Warm and dry. HEENT: Normocephalic.Airway patent. NECK: Trachea midline. CARDIOVASCULAR: Regular rate and rhythm without murmurs, gallops, or rubs. RESPIRATORY: Diminished bases. no wheezes GASTROINTESTINAL: Abdomen soft, non-tender, obese. Bowel Sounds normoactive x4. MUSCULOSKELETAL: Extremities without clubbing, cyanosis, or edema. NEUROLOGICAL: Awake and alert. No focal neuro deficit. Moves all extremities. Normal speech. Results - Labs CBC & Chem 7: 06/08/18 06:56 06/08/18 06:56 Laboratory Results - last 24 hr 06/13/18 06/13/18 06/14/18 17:03 20:47 08:03 POC Glucose 133 H 159 H 105 06/14/18 10:44 POC Glucose 127 H Microbiology 06/11/18 18:45 Sputum - Expectorated Sputum Gram Stain - Final 06/11/18 18:45 Sputum - Expectorated Sputum Sputum Culture - Final Heavy growth normal respiratory serg - Procedures 04/30- EGD with dilatation 05/02- colonoscopy- small rectal ulcer, internal and external hemorrhoids Assessment and Plan - Assessment (1) Respiratory failure with hypoxia and hypercapnia Code(s): J96.91 - Respiratory failure, unspecified with hypoxia; J96.92 - Respiratory failure, unspecified with hypercapnia Status: Acute (2) Acute kidney injury superimposed on CKD Code(s): N17.9 - Acute kidney failure, unspecified; N18.9 - Chronic kidney disease, unspecified Status: Acute (3) Acute metabolic encephalopathy Code(s): G93.41 - Metabolic encephalopathy Status: Resolved (4) Altered mental status Code(s): R41.82 - Altered mental status, unspecified Status: Resolved (5) Obesity Code(s): E66.9 - Obesity, unspecified Status: Chronic - Plan 57 year old male admitted with hypercapnia and encephalopathy Dysphagia with GERD symptoms S/P EGD with dilatation -Continue regular consistency diet Acute on chronic hypercapnic respiratory insufficiency History of PMH COPD, Obstructive sleep apnea. O2 dependent -Does not tolerate CPAP mask due to the noise. Continue to recommend CPAP at night -Status post treatment of MRSA pneumonia -[place] -Encourage ambulation -Pulmonology following CHF, not on exacerbation CAD Hx of CABG Hypertension -Echo from September showed EF 55-60% -Continue ASA, Amiodarone 200mg BID, Coreg 12.5mg BID, Clonidine 0.1mg Q8, Plavix 75mg daily, Lasix 40 mg twice daily -Monitor BP trend Diabetes Mellitus, type 2 -Continue sliding-scale coverage -Increase Levemir 12 units twice daily -Continue ADA/cardiac diet Scrotal pain Per Dr. Mendoza likely from anasarca. -Improved Hypotestosteronism -Periodic testosterone dosing for energy level, initially diagnosed near 0 Left upper and lower extremity weakness Disc herniation is present, but nonsurgical -Improved with steroids Morbid obesity/debility Left knee pain -Continue PT and OT daily to mobilize the patient more. -Slowly improving -WEIGHT LOSS recommended -Knee x-ray unremarkable -Pain control with bowel regimen Insomnia -Continue Trazodone 100mg HS, Melatonin HS. Constipation, chronic -Laxative regimen simplified, senna 17.2 mg nightly scheduled his new solo therapy for regularity Iron deficiency anemia -Continue PO Iron Anxiety Acute on chronic -Continue Ativan as needed. DVT Prophylaxis Lovenox Code Status: Full Code Discussed Condition With: Patient, nursing Discharge Planning: patient very motivated with physical therapy and increasing activity as toelrated CM consulted for SNF Plan to DC home with home health care arrangements are made. Brother is unable to take care of the patient as he is going for an open heart surgery. (1) Respiratory failure with hypoxia and hypercapnia Qualifiers: Chronicity: chronic Qualified Code(s): J96.11 - Chronic respiratory failure with hypoxia; J96.12 - Chronic respiratory failure with hypercapnia
[2018-06-14] MEDS: Enoxaparin Inj 40 MG/0.4 ML Syringe SQ SCH (17:30)
[2018-06-14] MEDS: traZODone 50 MG Tablet PO SCH (21:12)
[2018-06-15] MEDS: Nystatin 100,000 UNITS/GM Powder 15 GM Bottle TOPICAL SCH ×4 (00:12→21:37)
[2018-06-15] MEDS: clonazePAM 1 MG Tablet PO SCH ×3 (06:35→21:37)
[2018-06-15] MEDS: Furosemide 40 MG Tablet PO SCH ×2 (08:57→21:35)
[2018-06-15] MEDS: Senna/Docusate Sodium 8.6/50 MG Tablet PO SCH ×2 (08:57→21:36)
[2018-06-15] MEDS: Carvedilol 12.5 MG Tablet PO SCH ×2 (08:57→21:35)
[2018-06-15] MEDS: Gabapentin 100 MG Capsule PO SCH ×3 (08:58→18:40)
[2018-06-15] MEDS: Ferrous Sulfate 325 MG Tablet PO SCH (08:58)
[2018-06-15] MEDS: Famotidine 20 MG Tablet PO SCH ×2 (08:58→21:36)
[2018-06-15] MEDS: Allopurinol 100 MG Tablet PO SCH (08:58)
[2018-06-15] MEDS: Methylnaltrexone Inj 12 MG/0.6 ML Vial SQ SCH (08:59)
[2018-06-15] MEDS: guaiFENesin 600 MG ER Tablet PO SCH ×2 (08:59→21:36)
[2018-06-15] MEDS: Amiodarone 200 MG Tablet PO SCH ×2 (08:59→21:35)
[2018-06-15] MEDS: Sodium Chloride 0.65% Nasal Drops/Spray 30 ML Bottle EACH NARE SCH ×2 (09:07→21:35)
[2018-06-15] MEDS: Calamine/Pramoxine Lotion 180 ML Bottle TOPICAL SCH ×2 (09:07→21:35)
[2018-06-15] MEDS: Insulin NovoLOG Aspart Correctional Sugar Inj SQ SCH ×4 (09:07→21:46)
[2018-06-15] MEDS: Lactic Acid (Ammonium Lactate) 12% Lotion 225 GM Bottle TOPICAL SCH ×2 (09:08→21:35)
[2018-06-15] MEDS: Psyllium Fiber SF/GF 6 GM Packet PO SCH (10:30)
[2018-06-15] MEDS: Insulin Detemir Inj 1,000 UNIT/10 ML Vial SQ SCH ×2 (10:30→21:46)
--- NOTE | 2018-06-15 12:10 | P.PN ---
Subjective Interval history: no complains , no swallowing difficulty good po Physical Exam Vital signs: Vital Signs 06/14/18 16:00 06/14/18 16:36 06/14/18 19:28 Temperature 98.5 F Pulse Rate 60 63 63 Respiratory Rate 20 20 20 Blood Pressure 122/58 L Pulse Oximetry 97 98 06/14/18 20:00 06/15/18 00:00 06/15/18 04:00 Temperature 99 F 98.4 F 97.8 F Pulse Rate 63 58 L 57 L Respiratory Rate 18 18 18 Blood Pressure 114/52 L 122/59 L 118/57 L Pulse Oximetry 95 98 93 L 06/15/18 07:32 06/15/18 07:42 06/15/18 08:04 Temperature 98.0 F Pulse Rate 56 L 56 L Respiratory Rate 17 16 Blood Pressure 123/60 Pulse Oximetry 97 97 06/15/18 08:05 06/15/18 11:51 Temperature 98 F Pulse Rate 59 L Respiratory Rate 17 Blood Pressure 110/56 L Pulse Oximetry 95 96 Intake & Output 06/14/18 06/15/18 06/15/18 18:59 06:59 18:59 Intake Total 960 / 960 720 / 720 Output Total 100 / 100 Balance 860 / 860 720 / 720 Intake: Oral 960 / 960 720 / 720 Output: Stool 100 / 100 Other: # Voids 4 # Incontinent Voids 5 Date of Last Bowel Movement 06/14/18 06/14/18 06/14/18 # Bowel Movements 1 Narrative: GENERAL: This is an obese male, in no apparent distress. awake and alert SKIN: Warm and dry. HEENT: Normocephalic.Airway patent. NECK: Trachea midline. CARDIOVASCULAR: Regular rate and rhythm without murmurs, gallops, or rubs. RESPIRATORY: Diminished bases. no wheezes GASTROINTESTINAL: Abdomen soft, non-tender, obese. Bowel Sounds normoactive x4. MUSCULOSKELETAL: Extremities without clubbing, cyanosis, or edema. NEUROLOGICAL: Awake and alert. No focal neuro deficit. Moves all extremities. Normal speech. Results - Labs CBC & Chem 7: 06/08/18 06:56 06/08/18 06:56 Laboratory Results - last 24 hr 06/14/18 06/14/18 06/15/18 17:00 20:13 07:21 POC Glucose 195 H 169 H 100 06/15/18 10:55 POC Glucose 129 H - Procedures 04/30- EGD with dilatation 05/02- colonoscopy- small rectal ulcer, internal and external hemorrhoids Assessment and Plan - Assessment (1) Respiratory failure with hypoxia and hypercapnia Code(s): J96.91 - Respiratory failure, unspecified with hypoxia; J96.92 - Respiratory failure, unspecified with hypercapnia Status: Acute (2) Acute kidney injury superimposed on CKD Code(s): N17.9 - Acute kidney failure, unspecified; N18.9 - Chronic kidney disease, unspecified Status: Acute (3) Acute metabolic encephalopathy Code(s): G93.41 - Metabolic encephalopathy Status: Resolved (4) Altered mental status Code(s): R41.82 - Altered mental status, unspecified Status: Resolved (5) Obesity Code(s): E66.9 - Obesity, unspecified Status: Chronic - Plan 57 year old male admitted with hypercapnia and encephalopathy Dysphagia with GERD symptoms S/P EGD with dilatation -Continue regular consistency diet Acute on chronic hypercapnic respiratory insufficiency History of PMH COPD, Obstructive sleep apnea. O2 dependent -Does not tolerate CPAP mask due to the noise. Continue to recommend CPAP at night -Status post treatment of MRSA pneumonia -[place] -Encourage ambulation -Pulmonology following restart him on MDIs- Albuterol and Qvar (at home was on Budesonide MDI) daily CHF, not on exacerbation CAD Hx of CABG Hypertension -Echo from September showed EF 55-60% -Continue ASA, Amiodarone 200mg BID, Coreg 12.5mg BID, Clonidine 0.1mg Q8, Plavix 75mg daily, Lasix 40 mg twice daily -Monitor BP trend Diabetes Mellitus, type 2 -Continue sliding-scale coverage -Increase Levemir 12 units twice daily -Continue ADA/cardiac diet Scrotal pain Per Dr. Mendoza likely from anasarca. -Improved Hypotestosteronism -Periodic testosterone dosing for energy level, initially diagnosed near 0 Left upper and lower extremity weakness Disc herniation is present, but nonsurgical -Improved with steroids Morbid obesity/debility Left knee pain -Continue PT and OT daily to mobilize the patient more. -Slowly improving -WEIGHT LOSS recommended -Knee x-ray unremarkable -Pain control with bowel regimen Insomnia -Continue Trazodone 100mg HS, Melatonin HS. Constipation, chronic -Laxative regimen simplified, senna 17.2 mg nightly scheduled his new solo therapy for regularity Iron deficiency anemia -Continue PO Iron Anxiety Acute on chronic -Continue Ativan as needed. DVT Prophylaxis Lovenox Code Status: Full Code Discussed Condition With: Patient, nursing Discharge Planning: patient very motivated with physical therapy and increasing activity as toelrated CM consulted for SNF Plan to DC home with home health care arrangements are made. Brother is unable to take care of the patient as he is going for an open heart surgery. (1) Respiratory failure with hypoxia and hypercapnia Qualifiers: Chronicity: chronic Qualified Code(s): J96.11 - Chronic respiratory failure with hypoxia; J96.12 - Chronic respiratory failure with hypercapnia
[2018-06-15] MEDS: Enoxaparin Inj 40 MG/0.4 ML Syringe SQ SCH (18:41)
[2018-06-15] MEDS: BECLOMETHASONE DIPROPIONATE INH SCH ×2 (18:47→21:36)
[2018-06-15] MEDS: traZODone 50 MG Tablet PO SCH (21:35)
[2018-06-16] MEDS: clonazePAM 1 MG Tablet PO SCH ×3 (05:37→21:39)
[2018-06-16] MEDS: Nystatin 100,000 UNITS/GM Powder 15 GM Bottle TOPICAL SCH ×3 (05:37→21:39)
[2018-06-16] MEDS: Allopurinol 100 MG Tablet PO SCH (08:34)
[2018-06-16] MEDS: Carvedilol 12.5 MG Tablet PO SCH ×2 (08:34→20:37)
[2018-06-16] MEDS: Amiodarone 200 MG Tablet PO SCH ×2 (08:34→20:37)
[2018-06-16] MEDS: Famotidine 20 MG Tablet PO SCH ×2 (08:34→20:38)
[2018-06-16] MEDS: Senna/Docusate Sodium 8.6/50 MG Tablet PO SCH ×2 (08:34→20:37)
[2018-06-16] MEDS: Ferrous Sulfate 325 MG Tablet PO SCH (08:34)
[2018-06-16] MEDS: Furosemide 40 MG Tablet PO SCH ×2 (08:34→20:37)
[2018-06-16] MEDS: Lactic Acid (Ammonium Lactate) 12% Lotion 225 GM Bottle TOPICAL SCH ×2 (08:35→20:38)
[2018-06-16] MEDS: Sodium Chloride 0.65% Nasal Drops/Spray 30 ML Bottle EACH NARE SCH ×2 (08:35→20:38)
[2018-06-16] MEDS: Insulin Detemir Inj 1,000 UNIT/10 ML Vial SQ SCH ×2 (08:35→20:36)
[2018-06-16] MEDS: guaiFENesin 600 MG ER Tablet PO SCH ×2 (08:35→20:37)
[2018-06-16] MEDS: Gabapentin 100 MG Capsule PO SCH ×3 (08:35→17:57)
[2018-06-16] MEDS: Psyllium Fiber SF/GF 6 GM Packet PO SCH ×2 (08:35→20:37)
[2018-06-16] MEDS: Insulin NovoLOG Aspart Correctional Sugar Inj SQ SCH ×4 (08:35→20:36)
[2018-06-16] MEDS: Calamine/Pramoxine Lotion 180 ML Bottle TOPICAL SCH ×2 (08:35→20:38)
[2018-06-16] MEDS: BECLOMETHASONE DIPROPIONATE INH SCH ×2 (08:36→20:38)
[2018-06-16] MEDS: Methylnaltrexone Inj 12 MG/0.6 ML Vial SQ SCH (08:36)
--- NOTE | 2018-06-16 13:21 | P.PN ---
Subjective Interval history: no complains good po no pain complains Physical Exam Vital signs: Vital Signs 06/15/18 19:13 06/15/18 20:50 06/16/18 00:00 Temperature 98.7 F Pulse Rate 57 L 64 Respiratory Rate 22 18 Blood Pressure 106/59 L Pulse Oximetry 97 94 L 06/16/18 00:20 06/16/18 08:00 06/16/18 08:20 Temperature 98 F 98.1 F Pulse Rate 60 82 60 Respiratory Rate 18 22 16 Blood Pressure 110/55 L 100/53 L Pulse Oximetry 94 L 95 95 06/16/18 12:00 Temperature 98.3 F Pulse Rate 60 Respiratory Rate 18 Blood Pressure 112/65 Pulse Oximetry 98 Intake & Output 06/15/18 06/16/18 06/16/18 18:59 06:59 18:59 Intake Total 960 / 960 480 / 480 Balance 960 / 960 480 / 480 Intake: Oral 960 / 960 480 / 480 Other: # Voids 6 # Incontinent Voids 4 Date of Last Bowel Movement 06/14/18 06/15/18 06/15/18 # Bowel Movements 0 # Incontinent Bowel Movements 2 Narrative: GENERAL: This is an obese male, in no apparent distress. awake and alert SKIN: Warm and dry. HEENT: Normocephalic.Airway patent. NECK: Trachea midline. CARDIOVASCULAR: Regular rate and rhythm without murmurs, gallops, or rubs. RESPIRATORY: Diminished bases. no wheezes GASTROINTESTINAL: Abdomen soft, non-tender, obese. Bowel Sounds normoactive x4. MUSCULOSKELETAL: Extremities without clubbing, cyanosis, or edema. NEUROLOGICAL: Awake and alert. No focal neuro deficit. Moves all extremities. Normal speech. Results - Labs CBC & Chem 7: 06/08/18 06:56 06/08/18 06:56 Laboratory Results - last 24 hr 06/15/18 06/15/18 06/16/18 17:20 21:45 07:17 POC Glucose 175 H 154 H 125 H 06/16/18 12:01 POC Glucose 129 H - Procedures 04/30- EGD with dilatation 05/02- colonoscopy- small rectal ulcer, internal and external hemorrhoids Assessment and Plan - Assessment (1) Respiratory failure with hypoxia and hypercapnia Code(s): J96.91 - Respiratory failure, unspecified with hypoxia; J96.92 - Respiratory failure, unspecified with hypercapnia Status: Acute (2) Acute kidney injury superimposed on CKD Code(s): N17.9 - Acute kidney failure, unspecified; N18.9 - Chronic kidney disease, unspecified Status: Acute (3) Acute metabolic encephalopathy Code(s): G93.41 - Metabolic encephalopathy Status: Resolved (4) Altered mental status Code(s): R41.82 - Altered mental status, unspecified Status: Resolved (5) Obesity Code(s): E66.9 - Obesity, unspecified Status: Chronic - Plan 57 year old male admitted with hypercapnia and encephalopathy Dysphagia with GERD symptoms S/P EGD with dilatation -Continue regular consistency diet Acute on chronic hypercapnic respiratory insufficiency History of PMH COPD, Obstructive sleep apnea. O2 dependent -Does not tolerate CPAP mask due to the noise. Continue to recommend CPAP at night -Status post treatment of MRSA pneumonia -[place] -Encourage ambulation -Pulmonology following restart him on MDIs- Albuterol and Qvar (at home was on Budesonide MDI) daily CHF, not on exacerbation CAD Hx of CABG Hypertension -Echo from September showed EF 55-60% -Continue ASA, Amiodarone 200mg BID, Coreg 12.5mg BID, Clonidine 0.1mg Q8, Plavix 75mg daily, Lasix 40 mg twice daily -Monitor BP trend Diabetes Mellitus, type 2 -Continue sliding-scale coverage -Increase Levemir 12 units twice daily -Continue ADA/cardiac diet Scrotal pain Per Dr. Mendoza likely from anasarca. -Improved Hypotestosteronism -Periodic testosterone dosing for energy level, initially diagnosed near 0 Left upper and lower extremity weakness Disc herniation is present, but nonsurgical -Improved with steroids Morbid obesity/debility Left knee pain -Continue PT and OT daily to mobilize the patient more. -Slowly improving -WEIGHT LOSS recommended -Knee x-ray unremarkable -Pain control with bowel regimen Insomnia -Continue Trazodone 100mg HS, Melatonin HS. Constipation, chronic -Laxative regimen simplified, senna 17.2 mg nightly scheduled his new solo therapy for regularity Iron deficiency anemia -Continue PO Iron Anxiety Acute on chronic -Continue Ativan as needed. DVT Prophylaxis Lovenox requesting for Metamucil bid Code Status: Full Code Discussed Condition With: Patient, nursing Discharge Planning: patient very motivated with physical therapy and increasing activity as toelrated CM consulted for SNF Plan to DC home with home health care arrangements are made. Brother is unable to take care of the patient as he is going for an open heart surgery. (1) Respiratory failure with hypoxia and hypercapnia Qualifiers: Chronicity: chronic Qualified Code(s): J96.11 - Chronic respiratory failure with hypoxia; J96.12 - Chronic respiratory failure with hypercapnia
[2018-06-16] MEDS: Enoxaparin Inj 40 MG/0.4 ML Syringe SQ SCH (17:57)
[2018-06-16] MEDS: traZODone 50 MG Tablet PO SCH (20:37)
[2018-06-17] MEDS: clonazePAM 1 MG Tablet PO SCH ×3 (05:43→21:58)
[2018-06-17] MEDS: Nystatin 100,000 UNITS/GM Powder 15 GM Bottle TOPICAL SCH ×3 (06:56→21:58)
[2018-06-17] MEDS: Famotidine 20 MG Tablet PO SCH ×2 (08:32→20:30)
[2018-06-17] MEDS: Furosemide 40 MG Tablet PO SCH ×2 (08:33→20:30)
[2018-06-17] MEDS: Allopurinol 100 MG Tablet PO SCH (08:33)
[2018-06-17] MEDS: Senna/Docusate Sodium 8.6/50 MG Tablet PO SCH ×2 (08:33→20:30)
[2018-06-17] MEDS: Carvedilol 12.5 MG Tablet PO SCH ×2 (08:33→20:30)
[2018-06-17] MEDS: guaiFENesin 600 MG ER Tablet PO SCH ×2 (08:33→20:29)
[2018-06-17] MEDS: Insulin Detemir Inj 1,000 UNIT/10 ML Vial SQ SCH ×2 (08:34→20:29)
[2018-06-17] MEDS: Sodium Chloride 0.65% Nasal Drops/Spray 30 ML Bottle EACH NARE SCH ×2 (08:34→20:33)
[2018-06-17] MEDS: Calamine/Pramoxine Lotion 180 ML Bottle TOPICAL SCH ×2 (08:34→20:33)
[2018-06-17] MEDS: Lactic Acid (Ammonium Lactate) 12% Lotion 225 GM Bottle TOPICAL SCH ×2 (08:34→20:33)
[2018-06-17] MEDS: Amiodarone 200 MG Tablet PO SCH ×2 (08:34→20:30)
[2018-06-17] MEDS: Insulin NovoLOG Aspart Correctional Sugar Inj SQ SCH ×4 (08:34→20:29)
[2018-06-17] MEDS: Ferrous Sulfate 325 MG Tablet PO SCH (08:34)
[2018-06-17] MEDS: Psyllium Fiber SF/GF 6 GM Packet PO SCH ×2 (08:35→20:33)
[2018-06-17] MEDS: Gabapentin 100 MG Capsule PO SCH ×3 (09:00→17:40)
[2018-06-17] MEDS: Methylnaltrexone Inj 12 MG/0.6 ML Vial SQ SCH (09:00)
[2018-06-17] MEDS: BECLOMETHASONE DIPROPIONATE INH SCH ×2 (09:00→20:34)
--- NOTE | 2018-06-17 10:18 | P.PN ---
Subjective Interval history: no complain, good po, good BM, voiding spontaneously Physical Exam Vital signs: Vital Signs 06/16/18 12:00 06/16/18 16:00 06/16/18 20:00 Temperature 98.3 F 98.3 F 97.8 F Pulse Rate 60 60 57 L Respiratory Rate 18 18 20 Blood Pressure 112/65 112/65 105/67 Pulse Oximetry 98 98 100 06/16/18 21:07 06/17/18 00:00 06/17/18 04:00 Temperature 98.0 F 97.2 F L Pulse Rate 62 60 57 L Respiratory Rate 16 18 18 Blood Pressure 100/58 L 103/58 L Pulse Oximetry 96 96 06/17/18 08:00 06/17/18 08:23 Temperature 98.5 F Pulse Rate 57 L 61 Respiratory Rate 18 16 Blood Pressure 118/63 Pulse Oximetry 97 96 Intake & Output 06/16/18 06/17/18 06/17/18 18:59 06:59 18:59 Intake Total 960 / 960 Balance 960 / 960 Weight 139.4 kg Intake: Oral 960 / 960 Other: # Voids 5 Date of Last Bowel Movement 06/15/18 06/15/18 # Bowel Movements 2 Narrative: GENERAL: This is an obese male, in no apparent distress. awake and alert SKIN: Warm and dry. HEENT: Normocephalic.Airway patent. NECK: Trachea midline. CARDIOVASCULAR: Regular rate and rhythm without murmurs, gallops, or rubs. RESPIRATORY: Diminished bases. no wheezes GASTROINTESTINAL: Abdomen soft, non-tender, obese. Bowel Sounds normoactive x4. MUSCULOSKELETAL: Extremities without clubbing, cyanosis, or edema. NEUROLOGICAL: Awake and alert. No focal neuro deficit. Moves all extremities. Normal speech. Results - Labs CBC & Chem 7: 06/08/18 06:56 06/08/18 06:56 Laboratory Results - last 24 hr 06/16/18 06/16/18 12:01 19:49 POC Glucose 129 H 152 H - Procedures 04/30- EGD with dilatation 05/02- colonoscopy- small rectal ulcer, internal and external hemorrhoids Assessment and Plan - Assessment (1) Respiratory failure with hypoxia and hypercapnia Code(s): J96.91 - Respiratory failure, unspecified with hypoxia; J96.92 - Respiratory failure, unspecified with hypercapnia Status: Acute (2) Acute kidney injury superimposed on CKD Code(s): N17.9 - Acute kidney failure, unspecified; N18.9 - Chronic kidney disease, unspecified Status: Acute (3) Acute metabolic encephalopathy Code(s): G93.41 - Metabolic encephalopathy Status: Resolved (4) Altered mental status Code(s): R41.82 - Altered mental status, unspecified Status: Resolved (5) Obesity Code(s): E66.9 - Obesity, unspecified Status: Chronic - Plan 57 year old male admitted with hypercapnia and encephalopathy Dysphagia with GERD symptoms S/P EGD with dilatation -Continue regular consistency diet Acute on chronic hypercapnic respiratory insufficiency History of PMH COPD, Obstructive sleep apnea. O2 dependent -Does not tolerate CPAP mask due to the noise. Continue to recommend CPAP at night -Status post treatment of MRSA pneumonia -Chacho -Encourage ambulation -Pulmonology following restart him on MDIs- Albuterol and Qvar (at home was on Budesonide MDI) daily CHF, not on exacerbation CAD Hx of CABG Hypertension -Echo from September showed EF 55-60% -Continue ASA, Amiodarone 200mg BID, Coreg 12.5mg BID, Clonidine 0.1mg Q8, Plavix 75mg daily, Lasix 40 mg twice daily -Monitor BP trend Diabetes Mellitus, type 2 -Continue sliding-scale coverage -Increase Levemir 12 units twice daily -Continue ADA/cardiac diet Scrotal pain Per Dr. Mendoza likely from anasarca. -Improved Hypotestosteronism -Periodic testosterone dosing for energy level, initially diagnosed near 0 Left upper and lower extremity weakness Disc herniation is present, but nonsurgical -Improved with steroids Morbid obesity/debility Left knee pain -Continue PT and OT daily to mobilize the patient more. -Slowly improving -WEIGHT LOSS recommended -Knee x-ray unremarkable -Pain control with bowel regimen Insomnia -Continue Trazodone 100mg HS, Melatonin HS. Constipation, chronic -Laxative regimen simplified, senna 17.2 mg nightly scheduled his new solo therapy for regularity Iron deficiency anemia -Continue PO Iron Anxiety Acute on chronic -Continue Ativan as needed. DVT Prophylaxis Lovenox requesting for Metamucil bid Code Status: Full Code Discussed Condition With: Patient, nursing Discharge Planning: patient very motivated with physical therapy and increasing activity as toelrated CM consulted for SNF Plan to DC home with home health care arrangements are made. Brother is unable to take care of the patient as he is going for an open heart surgery. (1) Respiratory failure with hypoxia and hypercapnia Qualifiers: Chronicity: chronic Qualified Code(s): J96.11 - Chronic respiratory failure with hypoxia; J96.12 - Chronic respiratory failure with hypercapnia
[2018-06-17] MEDS: Enoxaparin Inj 40 MG/0.4 ML Syringe SQ SCH (17:40)
[2018-06-17] MEDS: traZODone 50 MG Tablet PO SCH (20:30)
[2018-06-18] MEDS: Nystatin 100,000 UNITS/GM Powder 15 GM Bottle TOPICAL SCH ×3 (06:14→21:02)
[2018-06-18] MEDS: clonazePAM 1 MG Tablet PO SCH ×3 (06:14→21:00)
[2018-06-18] MEDS: Methylnaltrexone Inj 12 MG/0.6 ML Vial SQ SCH (10:03)
[2018-06-18] MEDS: Senna/Docusate Sodium 8.6/50 MG Tablet PO SCH ×2 (10:03→21:00)
[2018-06-18] MEDS: Allopurinol 100 MG Tablet PO SCH (10:04)
[2018-06-18] MEDS: Gabapentin 100 MG Capsule PO SCH ×3 (10:04→17:58)
[2018-06-18] MEDS: Amiodarone 200 MG Tablet PO SCH ×2 (10:04→21:03)
[2018-06-18] MEDS: Famotidine 20 MG Tablet PO SCH ×2 (10:04→21:01)
[2018-06-18] MEDS: Ferrous Sulfate 325 MG Tablet PO SCH (10:04)
[2018-06-18] MEDS: Furosemide 40 MG Tablet PO SCH ×2 (10:05→21:01)
[2018-06-18] MEDS: Carvedilol 12.5 MG Tablet PO SCH ×2 (10:05→21:00)
[2018-06-18] MEDS: guaiFENesin 600 MG ER Tablet PO SCH ×2 (10:05→21:01)
[2018-06-18] MEDS: Insulin Detemir Inj 1,000 UNIT/10 ML Vial SQ SCH ×2 (10:05→21:03)
[2018-06-18] MEDS: Psyllium Fiber SF/GF 6 GM Packet PO SCH ×2 (10:06→21:03)
[2018-06-18] MEDS: Insulin NovoLOG Aspart Correctional Sugar Inj SQ SCH ×4 (10:06→21:02)
[2018-06-18] MEDS: BECLOMETHASONE DIPROPIONATE INH SCH ×2 (10:09→21:01)
[2018-06-18] MEDS: Sodium Chloride 0.65% Nasal Drops/Spray 30 ML Bottle EACH NARE SCH ×2 (10:10→21:03)
[2018-06-18] MEDS: Calamine/Pramoxine Lotion 180 ML Bottle TOPICAL SCH ×2 (10:10→21:03)
[2018-06-18] MEDS: Lactic Acid (Ammonium Lactate) 12% Lotion 225 GM Bottle TOPICAL SCH ×2 (10:10→21:03)
--- NOTE | 2018-06-18 10:11 | P.PN ---
Subjective Interval history: awake and alert no complains happy- requesting for metamucil to be given bid- "help me with my crapping' Physical Exam Vital signs: Vital Signs 06/17/18 12:00 06/17/18 16:00 06/17/18 20:00 Temperature 97.9 F 98.2 F 97.9 F Pulse Rate 58 L 55 L 62 Respiratory Rate 18 20 18 Blood Pressure 105/59 L 114/59 L 123/58 L Pulse Oximetry 97 97 96 06/17/18 21:55 06/18/18 00:00 06/18/18 04:00 Temperature 97.8 F 97.6 F Pulse Rate 60 60 90 Respiratory Rate 18 18 18 Blood Pressure 111/59 L 110/55 L Pulse Oximetry 97 96 96 06/18/18 08:00 06/18/18 08:26 Temperature 97.6 F Pulse Rate 64 61 Respiratory Rate 16 16 Blood Pressure 114/62 Pulse Oximetry 99 99 Intake & Output 06/17/18 06/18/18 06/18/18 18:59 06:59 18:59 Intake Total 560 / 560 Balance 560 / 560 Weight 139.4 kg Intake: Oral 560 / 560 Other: # Voids 10 # Incontinent Voids 6 Date of Last Bowel Movement 06/16/18 06/16/18 # Bowel Movements 3 Narrative: no distress. awake and alert SKIN: Warm and dry. HEENT: Normocephalic.Airway patent. NECK: Trachea midline. CARDIOVASCULAR: Regular rate and rhythm without murmurs, gallops, or rubs. RESPIRATORY: Diminished bases. no wheezes GASTROINTESTINAL: Abdomen soft, non-tender, obese. Bowel Sounds normoactive x4. MUSCULOSKELETAL: Extremities without clubbing, cyanosis, or edema. NEUROLOGICAL: Awake and alert. No focal neuro deficit. Moves all extremities. Normal speech. Results - Labs CBC & Chem 7: 06/08/18 06:56 06/08/18 06:56 Laboratory Results - last 24 hr 06/17/18 06/17/18 06/17/18 11:21 17:38 19:32 POC Glucose 148 H 146 H 203 H - Procedures 04/30- EGD with dilatation 05/02- colonoscopy- small rectal ulcer, internal and external hemorrhoids Assessment and Plan - Assessment (1) Respiratory failure with hypoxia and hypercapnia Code(s): J96.91 - Respiratory failure, unspecified with hypoxia; J96.92 - Respiratory failure, unspecified with hypercapnia Status: Acute (2) Acute kidney injury superimposed on CKD Code(s): N17.9 - Acute kidney failure, unspecified; N18.9 - Chronic kidney disease, unspecified Status: Acute (3) Acute metabolic encephalopathy Code(s): G93.41 - Metabolic encephalopathy Status: Resolved (4) Altered mental status Code(s): R41.82 - Altered mental status, unspecified Status: Resolved (5) Obesity Code(s): E66.9 - Obesity, unspecified Status: Chronic - Plan 57 year old male admitted with hypercapnia and encephalopathy Dysphagia with GERD symptoms S/P EGD with dilatation good po -Continue regular consistency diet Acute on chronic hypercapnic respiratory insufficiency History of PMH COPD, Obstructive sleep apnea. O2 dependent -Does not tolerate CPAP mask due to the noise. Continue to recommend CPAP at night -Status post treatment of MRSA pneumonia -[place]acho -Encourage ambulation -Pulmonology following restart him on MDIs- Albuterol and Qvar (at home was on Budesonide MDI) daily CHF, not on exacerbation CAD Hx of CABG Hypertension -Echo from September showed EF 55-60% -Continue ASA, Amiodarone 200mg BID, Coreg 12.5mg BID, Clonidine 0.1mg Q8, Plavix 75mg daily, Lasix 40 mg twice daily -Monitor BP trend Diabetes Mellitus, type 2 -Continue sliding-scale coverage -Increase Levemir 12 units twice daily -Continue ADA/cardiac diet Scrotal pain Per Dr. Mendoza likely from anasarca. -Improved Hypotestosteronism -Periodic testosterone dosing for energy level, initially diagnosed near 0 Left upper and lower extremity weakness Disc herniation is present, but nonsurgical -Improved with steroids Morbid obesity/debility Left knee pain -Continue PT and OT daily to mobilize the patient more. -Slowly improving -WEIGHT LOSS recommended -Knee x-ray unremarkable -Pain control with bowel regimen Insomnia -Continue Trazodone 100mg HS, Melatonin HS. Constipation, chronic -Laxative regimen simplified, senna 17.2 mg nightly scheduled his new solo therapy for regularity Iron deficiency anemia -Continue PO Iron Anxiety Acute on chronic -Continue Ativan as needed. DVT Prophylaxis Lovenox PT daily - wheelchair training Code Status: Full Code Discussed Condition With: Patient, nursing Discharge Planning: patient very motivated with physical therapy and increasing activity as toelrated CM consulted for SNF Plan to DC home with home health care arrangements are made. Brother is unable to take care of the patient as he is going for an open heart surgery. (1) Respiratory failure with hypoxia and hypercapnia Qualifiers: Chronicity: chronic Qualified Code(s): J96.11 - Chronic respiratory failure with hypoxia; J96.12 - Chronic respiratory failure with hypercapnia
[2018-06-18] MEDS: Enoxaparin Inj 40 MG/0.4 ML Syringe SQ SCH (17:58)
--- NOTE | 2018-06-18 20:53 | P.PNPL ---
Physical Exam Vital signs: Vital Signs 06/17/18 21:55 06/18/18 00:00 06/18/18 04:00 Temperature 97.8 F 97.6 F Pulse Rate 60 60 90 Respiratory Rate 18 18 18 Blood Pressure 111/59 L 110/55 L Pulse Oximetry 97 96 96 06/18/18 08:00 06/18/18 08:26 06/18/18 12:00 Temperature 97.6 F 97.8 F Pulse Rate 64 61 66 Respiratory Rate 16 16 16 Blood Pressure 114/62 137/64 Pulse Oximetry 99 99 97 06/18/18 16:00 06/18/18 19:48 Temperature 97.6 F Pulse Rate 59 L 53 L Respiratory Rate 16 18 Blood Pressure 114/62 Pulse Oximetry 96 98 Intake & Output 06/18/18 06/18/18 06/19/18 06:59 18:59 06:59 Intake Total 960 / 960 Balance 960 / 960 Weight 139.4 kg Intake: Oral 960 / 960 Other: # Voids 10 # Incontinent Voids 3 Date of Last Bowel Movement 06/16/18 06/18/18 # Incontinent Bowel Movements 3 Assessment and Plan - Plan IMPRESSION: TANA COPD CHF Morbid obesity Gen Weakness/ deconditioning PLAN: Supplement 02, 2LNC Keep sat 88-92% Diurease Aerosol nebs Encourage to use CPAP DC plans underway I will be away untill 06/17 Coverage available prn
[2018-06-18] MEDS: traZODone 50 MG Tablet PO SCH (21:00)
[2018-06-19] MEDS: clonazePAM 1 MG Tablet PO SCH ×3 (06:10→21:51)
[2018-06-19] MEDS: Nystatin 100,000 UNITS/GM Powder 15 GM Bottle TOPICAL SCH ×3 (06:11→21:51)
[2018-06-19] MEDS: guaiFENesin 600 MG ER Tablet PO SCH ×2 (09:52→21:49)
[2018-06-19] MEDS: Famotidine 20 MG Tablet PO SCH ×2 (09:53→21:50)
[2018-06-19] MEDS: Carvedilol 12.5 MG Tablet PO SCH ×2 (09:53→21:48)
[2018-06-19] MEDS: Furosemide 40 MG Tablet PO SCH ×2 (09:53→21:49)
[2018-06-19] MEDS: Amiodarone 200 MG Tablet PO SCH ×2 (09:53→21:48)
[2018-06-19] MEDS: Ferrous Sulfate 325 MG Tablet PO SCH (09:53)
[2018-06-19] MEDS: Senna/Docusate Sodium 8.6/50 MG Tablet PO SCH ×2 (09:53→21:50)
[2018-06-19] MEDS: Gabapentin 100 MG Capsule PO SCH ×3 (09:54→19:12)
[2018-06-19] MEDS: BECLOMETHASONE DIPROPIONATE INH SCH ×2 (09:54→21:50)
[2018-06-19] MEDS: Allopurinol 100 MG Tablet PO SCH (09:54)
[2018-06-19] MEDS: Calamine/Pramoxine Lotion 180 ML Bottle TOPICAL SCH ×2 (09:56→21:47)
[2018-06-19] MEDS: Lactic Acid (Ammonium Lactate) 12% Lotion 225 GM Bottle TOPICAL SCH ×2 (09:56→21:49)
[2018-06-19] MEDS: Sodium Chloride 0.65% Nasal Drops/Spray 30 ML Bottle EACH NARE SCH ×2 (09:56→21:47)
[2018-06-19] MEDS: Insulin NovoLOG Aspart Correctional Sugar Inj SQ SCH ×4 (09:56→21:49)
[2018-06-19] MEDS: Psyllium Fiber SF/GF 6 GM Packet PO SCH ×2 (09:56→21:49)
[2018-06-19] MEDS: Insulin Detemir Inj 1,000 UNIT/10 ML Vial SQ SCH ×2 (09:57→21:49)
[2018-06-19] MEDS: Methylnaltrexone Inj 12 MG/0.6 ML Vial SQ SCH (10:13)
--- NOTE | 2018-06-19 11:49 | P.PNIM ---
Subjective Interval history: in no acute distress. no new complaints. Physical Exam Vital signs: Vital Signs 06/18/18 12:00 06/18/18 16:00 06/18/18 19:48 Temperature 97.8 F 97.6 F Pulse Rate 66 59 L 53 L Respiratory Rate 16 16 18 Blood Pressure 137/64 114/62 Pulse Oximetry 97 96 98 06/18/18 20:00 06/19/18 00:00 06/19/18 01:33 Temperature 97.8 F 97.8 F Pulse Rate 58 L 59 L Respiratory Rate 16 18 Blood Pressure 118/58 L 137/80 Pulse Oximetry 98 99 97 06/19/18 04:00 06/19/18 07:45 06/19/18 08:00 Temperature 97.2 F L 98.0 F Pulse Rate 59 L 79 56 L Respiratory Rate 18 16 21 Blood Pressure 121/67 123/58 L Pulse Oximetry 98 100 Intake & Output 06/18/18 06/19/18 06/19/18 18:59 06:59 18:59 Intake Total 960 / 960 Balance 960 / 960 Weight 138.8 kg Intake: Oral 960 / 960 Other: # Voids 10 # Incontinent Voids 3 Date of Last Bowel Movement 06/18/18 06/18/18 # Incontinent Bowel Movements 3 - Constitutional no acute distress - Routine Respiratory Exam Present: CTA bilaterally - Routine Cardiovascular Exam Present: RRR - Routine Abdominal Exam Present: soft - Routine Extremities Exam Comments: mild bilateral pedal edema. - Routine Neurological Exam Present: alert, oriented X3 Results - Labs CBC & Chem 7: 06/08/18 06:56 06/08/18 06:56 Laboratory Results - last 24 hr 06/19/18 07:33 POC Glucose 129 H - Procedures 04/30- EGD with dilatation 05/02- colonoscopy- small rectal ulcer, internal and external hemorrhoids Assessment and Plan - Assessment (1) Respiratory failure with hypoxia and hypercapnia Code(s): J96.91 - Respiratory failure, unspecified with hypoxia; J96.92 - Respiratory failure, unspecified with hypercapnia Status: Acute (2) Acute kidney injury superimposed on CKD Code(s): N17.9 - Acute kidney failure, unspecified; N18.9 - Chronic kidney disease, unspecified Status: Acute (3) Acute metabolic encephalopathy Code(s): G93.41 - Metabolic encephalopathy Status: Resolved (4) Altered mental status Code(s): R41.82 - Altered mental status, unspecified Status: Resolved (5) Obesity Code(s): E66.9 - Obesity, unspecified Status: Chronic - Plan Dysphagia with GERD symptoms S/P EGD with dilatation good po -Continue regular consistency diet Acute on chronic hypercapnic respiratory insufficiency History of PMH COPD, Obstructive sleep apnea. O2 dependent -Does not tolerate CPAP mask due to the noise. Continue to recommend CPAP at night -Status post treatment of MRSA pneumonia -Chacho -Encourage ambulation -Pulmonology following restarted him on MDIs- Albuterol and Qvar (at home was on Budesonide MDI) daily CHF, not on exacerbation CAD Hx of CABG Hypertension -Echo from September showed EF 55-60% -Continue ASA, Amiodarone 200mg BID, Coreg 12.5mg BID, Clonidine 0.1mg Q8, Plavix 75mg daily, Lasix 40 mg twice daily -Monitor BP trend Diabetes Mellitus, type 2 -Continue sliding-scale coverage -Increase Levemir 12 units twice daily -Continue ADA/cardiac diet Scrotal pain Per Dr. Mendoza likely from anasarca. -Improved Hypotestosteronism -Periodic testosterone dosing for energy level, initially diagnosed near 0 Left upper and lower extremity weakness Disc herniation is present, but nonsurgical -Improved with steroids Morbid obesity/debility Left knee pain -Continue PT and OT daily to mobilize the patient more. -Slowly improving -WEIGHT LOSS recommended -Knee x-ray unremarkable -Pain control with bowel regimen Insomnia -Continue Trazodone 100mg HS, Melatonin HS. Constipation, chronic -Laxative regimen simplified, senna 17.2 mg nightly scheduled his new solo therapy for regularity Iron deficiency anemia -Continue PO Iron Anxiety Acute on chronic -Continue Ativan as needed. DVT Prophylaxis Lovenox PT daily - wheelchair training Code Status: Full Code Discussed Condition With: Patient, nursing Discharge Planning: dc home with [facility]. see med list. f/u; pcp , GI and pulmonary. d/w the patient and case management. time spent 35 min. (1) Respiratory failure with hypoxia and hypercapnia Qualifiers: Chronicity: chronic Qualified Code(s): J96.11 - Chronic respiratory failure with hypoxia; J96.12 - Chronic respiratory failure with hypercapnia
--- NOTE | 2018-06-19 13:01 | P.DS ---
Date of admission: 12/07/17 15:18 Primary care physician: UNKNOWN Brief History from admission: is a 57 y/o morbidly obese CM with PMHx of CAD with prior stents and CABG 5, diabetes, hypertension, chronic kidney disease stage III, prior history of stroke, hyperlipidemia, COPD with chronic respiratory failure on 3 L home O2, obstructive sleep apnea with history of CPAP noncompliance, ICD. He presented to [facility] emergency department the evening of 10/09/17 with multiple complaints including low back pain, nausea, headache, shortness of breath, difficulty urinating DS: Diagnosis - Discharge Diagnosis (1) Respiratory failure with hypoxia and hypercapnia Status: Acute (2) Acute kidney injury superimposed on CKD Status: Acute (3) Acute metabolic encephalopathy Status: Resolved (4) Altered mental status Status: Resolved (5) Obesity Status: Chronic DS: Summary Hospital Course: Dysphagia with GERD symptoms S/P EGD with dilatation good po -Continue regular consistency diet Acute on chronic hypercapnic respiratory insufficiency History of PMH COPD, Obstructive sleep apnea. O2 dependent -Does not tolerate CPAP mask due to the noise. Continue to recommend CPAP at night -Status post treatment of MRSA pneumonia -[place]acho -Encourage ambulation -Pulmonology following restarted him on MDIs- Albuterol and Qvar (at home was on Budesonide MDI) daily CHF, not on exacerbation CAD Hx of CABG Hypertension -Echo from September showed EF 55-60% -Continue ASA, Amiodarone 200mg BID, Coreg 12.5mg BID, Clonidine 0.1mg Q8, Plavix 75mg daily, Lasix 40 mg twice daily -Monitor BP trend Diabetes Mellitus, type 2 -Continue sliding-scale coverage -Increase Levemir 12 units twice daily -Continue ADA/cardiac diet Scrotal pain Per Dr. Mendoza likely from anasarca. -Improved Hypotestosteronism -Periodic testosterone dosing for energy level, initially diagnosed near 0 Left upper and lower extremity weakness Disc herniation is present, but nonsurgical -Improved with steroids Morbid obesity/debility Left knee pain -Continue PT and OT daily to mobilize the patient more. -Slowly improving -WEIGHT LOSS recommended -Knee x-ray unremarkable -Pain control with bowel regimen Insomnia -Continue Trazodone 100mg HS, Melatonin HS. Constipation, chronic -Laxative regimen simplified, senna 17.2 mg nightly scheduled his new solo therapy for regularity Iron deficiency anemia -Continue PO Iron Anxiety Acute on chronic -Continue Ativan as needed. DVT Prophylaxis Lovenox PT daily - wheelchair training - Time Spent with Patient Total time spent providing and/or coordinating discharge services: Greater than 30 minutes Exam Vital signs: Vital Signs 06/18/18 16:00 06/18/18 19:48 06/18/18 20:00 Temperature 97.6 F 97.8 F Pulse Rate 59 L 53 L 58 L Respiratory Rate 16 18 16 Blood Pressure 114/62 118/58 L Pulse Oximetry 96 98 98 06/19/18 00:00 06/19/18 01:33 06/19/18 04:00 Temperature 97.8 F 97.2 F L Pulse Rate 59 L 59 L Respiratory Rate 18 18 Blood Pressure 137/80 121/67 Pulse Oximetry 99 97 98 06/19/18 07:45 06/19/18 08:00 06/19/18 12:00 Temperature 98.0 F 98.4 F Pulse Rate 79 56 L 68 Respiratory Rate 16 21 21 Blood Pressure 123/58 L 115/57 L Pulse Oximetry 100 94 L Intake & Output 06/18/18 06/19/18 06/19/18 18:59 06:59 18:59 Intake Total 960 / 960 Balance 960 / 960 Weight 138.8 kg Intake: Oral 960 / 960 Other: # Voids 10 # Incontinent Voids 3 Date of Last Bowel Movement 06/18/18 06/18/18 06/18/18 # Incontinent Bowel Movements 3 - Constitutional no acute distress - Routine Respiratory Exam Present: CTA bilaterally - Routine Cardiovascular Exam Present: RRR - Routine Abdominal Exam Present: soft - Routine Extremities Exam Comments: mild bilateral pedal edema. - Routine Neurological Exam Present: alert, oriented X3 Results Procedures completed during hospitalization: 04/30- EGD with dilatation 05/02- colonoscopy- small rectal ulcer, internal and external hemorrhoids Completed studies during hospitalization: Pending at discharge 04/30/18 07:30 Surgical [PTH] Routine 05/02/18 07:28 Surgical [PTH] Routine Labs on day of discharge: Labs from last 24 hours 06/19/18 07:33 POC Glucose 129 H - Impressions ITS Impressions Foot X-Ray 04/01/18 00:00 CONCLUSION: No acute findings. Mild degenerative change. Chest X-Ray 04/23/18 00:00 CONCLUSION: Basilar airspace disease predominantly on the left side. Differential diagnosis includes atelectasis and pneumonia. Knee X-Ray 04/25/18 00:00 CONCLUSION: No evidence of recent bony injury. Discharge Plan - Discharge Disposition Patient Disposition: /Home Health Service - Discharge Condition Condition: Stable - Physicians Team Primary Care Provider: UNKNOWN, Attending Provider: Chicho Jarrett Other Providers: Tanner Lopez MD ; Julia Diehl MD ; Alice Menendez MD ; Scarlett Valadez MD ; Darrian Reyes MD ; Shravan Benjamin MD ; Wally Simental, PhD ; Conrad Mendoza MD ; Jeb Toth MD ; [facility] ; [facility] ; [facility] ; Kalyan Vizcaino MD ; [facility] ; [facility] & [facility] - Rxs /Orders / Referrals /Forms Prescriptions: New albuterol sulfate [Ventolin HFA] 90 mcg/actuation Hfa Aerosol Inhaler 2 puff INH Q6HR Qty: 1 RF: 0 aspirin 81 mg Tablet,Delayed Release (Dr/Ec) 81 mg PO DAILY 30 Days Qty: 30 RF: 0 beclomethasone dipropionate [Qvar RediHaler] 80 mcg/actuation Hfa Aerosol Breath Activated 1 puff INH BID Qty: 1 RF: 0 budesonide [Pulmicort] 0.5 mg/2 mL Suspension For Nebulization 0.5 mg NEB Q12HR NEB 30 Days RF: 0 clonidine HCl [Catapres] 0.1 mg Tablet 0.1 mg PO Q12HR 30 Days RF: 0 ferrous sulfate [FeroSul] 325 mg (65 mg iron) Tablet 325 mg PO DAILY 30 Days Qty: 30 RF: 0 gabapentin 100 mg Capsule 100 mg PO TID 30 Days Qty: 90 RF: 0 insulin aspart U-100 [Novolog U-100 Insulin aspart] 100 unit/mL Solution 1 sliding scale dose SUBCUT UD 30 Days RF: 0 tamsulosin 0.4 mg Capsule 0.4 mg PO DAILY 30 Days Qty: 30 RF: 0 Continue albuterol sulfate [Ventolin HFA] 90 mcg/actuation Hfa Aerosol Inhaler 2 puff INHALATION Q4-6H PRN (Reason: Shortness Of Breath) allopurinol 100 mg Tablet 100 mg PO DAILY amiodarone 200 mg Tablet 200 mg PO BID bumetanide 1 mg Tablet 1 mg PO DAILY carvedilol 12.5 mg Tablet 12.5 mg PO BID clopidogrel 75 mg Tablet 75 mg PO DAILY omeprazole 20 mg Tablet,Delayed Release (Dr/Ec) 20 mg PO DAILY paroxetine HCl 20 mg Tablet 20 mg PO DAILY Discontinued aspirin 325 mg Tablet 325 mg PO DAILY budesonide-formoterol [Symbicort] 80-4.5 mcg/actuation Hfa Aerosol Inhaler 1 puff INHALATION Q12HR diclofenac sodium 75 mg Tablet,Delayed Release (Dr/Ec) 75 mg PO BID lisinopril-hydrochlorothiazide 20-12.5 mg Tablet 1 tab PO DAILY Ambulatory Orders / Order Sets / DME: Oxygen Tank (2 liter) (Routine) Location: Determined by Patient Ordered By: Chicho Jarrett Oxygen Tank (2-5 liter) (Routine) Location: Determined by Patient Ordered By: Chicho Jarrett Wheelchair (1 each) (Routine) Location: Determined by Patient Ordered By: Shravan Choe Referrals: UNKNOWN, [Primary Care Provider] - See Instructions - Discharge Instructions Patient Printed Instructions: Heart Failure (DC), Colonoscopy (DC)
[2018-06-19] MEDS: Enoxaparin Inj 40 MG/0.4 ML Syringe SQ SCH (19:12)
[2018-06-19] MEDS: traZODone 50 MG Tablet PO SCH (21:48)
[2018-06-19] MEDS: Melatonin 5 MG Tablet PO PRN (21:51)
[2018-06-20] MEDS: clonazePAM 1 MG Tablet PO SCH (05:36)
[2018-06-20] MEDS: Nystatin 100,000 UNITS/GM Powder 15 GM Bottle TOPICAL SCH (05:43)
[2018-06-20 08:11] VITALS: PULSE 65; RESP 15; O2SAT 97
[2018-06-20] MEDS: Insulin NovoLOG Aspart Correctional Sugar Inj SQ SCH (09:20)
[2018-06-20] MEDS: Amiodarone 200 MG Tablet PO SCH (09:21)
[2018-06-20] MEDS: Carvedilol 12.5 MG Tablet PO SCH (09:21)
[2018-06-20] MEDS: Calamine/Pramoxine Lotion 180 ML Bottle TOPICAL SCH (09:21)
[2018-06-20] MEDS: Sodium Chloride 0.65% Nasal Drops/Spray 30 ML Bottle EACH NARE SCH (09:21)
[2018-06-20] MEDS: Gabapentin 100 MG Capsule PO SCH (09:22)
[2018-06-20] MEDS: Furosemide 40 MG Tablet PO SCH (09:22)
[2018-06-20] MEDS: Ferrous Sulfate 325 MG Tablet PO SCH (09:22)
[2018-06-20] MEDS: Senna/Docusate Sodium 8.6/50 MG Tablet PO SCH (09:22)
[2018-06-20] MEDS: guaiFENesin 600 MG ER Tablet PO SCH (09:22)
[2018-06-20] MEDS: Allopurinol 100 MG Tablet PO SCH (09:22)
[2018-06-20] MEDS: Methylnaltrexone Inj 12 MG/0.6 ML Vial SQ SCH (09:23)
[2018-06-20] MEDS: Famotidine 20 MG Tablet PO SCH (09:23)
[2018-06-20] MEDS: BECLOMETHASONE DIPROPIONATE INH SCH (09:23)
[2018-06-20] MEDS: Insulin Detemir Inj 1,000 UNIT/10 ML Vial SQ SCH (09:24)
[2018-06-20] MEDS: Psyllium Fiber SF/GF 6 GM Packet PO SCH (09:25)
[2018-06-20] MEDS: Lactic Acid (Ammonium Lactate) 12% Lotion 225 GM Bottle TOPICAL SCH (09:25)
--- NOTE | 2018-06-20 09:37 | P.PNIM ---
Subjective Interval history: in no acute distress. no new complaints. awaiting discharge to rehab. d/w the RN and no acute issues over night. Physical Exam Vital signs: Vital Signs 06/19/18 12:00 06/19/18 13:11 06/19/18 20:00 Temperature 98.4 F 98.2 F Pulse Rate 68 59 L Respiratory Rate 21 18 Blood Pressure 115/57 L 105/52 L Pulse Oximetry 94 L 100 Pulse Oximetry [Exertion on Room Air] 86 L Pulse Oximetry [Resting with Oxygen] 97 06/19/18 21:23 06/20/18 00:00 06/20/18 04:00 Temperature 98.1 F 97.5 F L Pulse Rate 55 L 59 L 64 Respiratory Rate 16 18 18 Blood Pressure 101/56 L 97/52 L Pulse Oximetry 97 95 93 L Pulse Oximetry [Exertion on Room Air] Pulse Oximetry [Resting with Oxygen] 06/20/18 08:11 Temperature Pulse Rate 65 Respiratory Rate 15 Blood Pressure Pulse Oximetry 97 Pulse Oximetry [Exertion on Room Air] Pulse Oximetry [Resting with Oxygen] Intake & Output 06/19/18 06/20/18 06/20/18 18:59 06:59 18:59 Intake Total 720 / 720 480 / 480 Balance 720 / 720 480 / 480 Weight 138.2 kg Intake: Oral 720 / 720 480 / 480 Other: # Voids 3 6 Date of Last Bowel Movement 06/18/18 # Bowel Movements 1 0 - Constitutional no acute distress - Routine Respiratory Exam Present: CTA bilaterally - Routine Cardiovascular Exam Present: RRR - Routine Abdominal Exam Present: soft - Routine Extremities Exam Comments: mild bilateral pedal edema. - Routine Neurological Exam Present: alert, oriented X3 Results - Labs CBC & Chem 7: 06/08/18 06:56 06/08/18 06:56 - Procedures 04/30- EGD with dilatation 05/02- colonoscopy- small rectal ulcer, internal and external hemorrhoids Assessment and Plan - Assessment (1) Respiratory failure with hypoxia and hypercapnia Code(s): J96.91 - Respiratory failure, unspecified with hypoxia; J96.92 - Respiratory failure, unspecified with hypercapnia Status: Acute (2) Acute kidney injury superimposed on CKD Code(s): N17.9 - Acute kidney failure, unspecified; N18.9 - Chronic kidney disease, unspecified Status: Acute (3) Acute metabolic encephalopathy Code(s): G93.41 - Metabolic encephalopathy Status: Resolved (4) Altered mental status Code(s): R41.82 - Altered mental status, unspecified Status: Resolved (5) Obesity Code(s): E66.9 - Obesity, unspecified Status: Chronic - Plan Dysphagia with GERD symptoms S/P EGD with dilatation good po -Continue regular consistency diet Acute on chronic hypercapnic respiratory insufficiency History of PMH COPD, Obstructive sleep apnea. O2 dependent -Does not tolerate CPAP mask due to the noise. Continue to recommend CPAP at night -Status post treatment of MRSA pneumonia -Chacho -Encourage ambulation -Pulmonology following restarted him on MDIs- Albuterol and Qvar (at home was on Budesonide MDI) daily CHF, not on exacerbation CAD Hx of CABG Hypertension -Echo from September showed EF 55-60% -Continue ASA, Amiodarone 200mg BID, Coreg 12.5mg BID, Clonidine 0.1mg Q8, Plavix 75mg daily, Lasix 40 mg twice daily -Monitor BP trend Diabetes Mellitus, type 2 -Continue sliding-scale coverage -Levemir 12 units twice daily -Continue ADA/cardiac diet Scrotal pain Per Dr. Mendoza likely from anasarca. -Improved Hypotestosteronism -Periodic testosterone dosing for energy level. Left upper and lower extremity weakness Disc herniation is present, but nonsurgical -Improved with steroids Morbid obesity/debility Left knee pain -Continue PT and OT daily to mobilize the patient more. -Slowly improving -WEIGHT LOSS recommended -Knee x-ray unremarkable -Pain control with bowel regimen Insomnia -Continue Trazodone 100mg HS, Melatonin HS. Constipation, chronic -Laxative regimen simplified, senna 17.2 mg nightly scheduled his new solo therapy for regularity Iron deficiency anemia -Continue PO Iron Anxiety Acute on chronic -Continue Ativan as needed. DVT Prophylaxis Lovenox PT daily - wheelchair training Code Status: Full Code Discussed Condition With: Patient, nursing Discharge Planning: patient changed his mind; dc planning to SNF when arrangements made. see med list. f/u; pcp , GI and pulmonary. d/w the patient and case management. time spent 35 min. (1) Respiratory failure with hypoxia and hypercapnia Qualifiers: Chronicity: chronic Qualified Code(s): J96.11 - Chronic respiratory failure with hypoxia; J96.12 - Chronic respiratory failure with hypercapnia
[2018-06-20 09:43] VITALS: BP 115/57; TEMP 98.1
== END 2018-06-20 12:05 ==
LOC: N04 15:18
PROVIDERS: ADMIT Internal Medicine; ATTEND Internal Medicine

== ENCOUNTER 2018-08-07 22:00 | Inpatient (IN) ==
--- NOTE | 2018-08-07 22:44 | ED ---
HPI General Chief complaint: Shortness of Breath/Dyspnea Stated complaint: sob/evac Time Seen by Provider: 08/07/18 22:35 History of Present Illness HPI narrative: 57-year-old male with history of obesity, COPD on 2 L home oxygen , coronary artery disease, CHF, diabetes, presents via EMS for evaluation. The patient reports that 2 or 3 days ago he slipped and fell, landing on the right side of his body and hitting his head. He reports that today he felt dizzy and lightheaded and called EMS. When EMS arrived they report that he was 85% oxygen on 2 L of nasal cannula which is his baseline. They do note that he was feeding the oxygen through 50 feet of holding and when they hooked him up on their oxygen his oxygen saturation went up to the mid 90s. Patient is currently feeling better. He reports some right-sided chest wall pain and right shoulder pain from the fall a few days ago. He reports a slight cough. Denies nausea, vomiting, headache, dizziness, nausea, vomiting, abdominal pain. No other complaints. Related Data Home Medications Medication Instructions Recorded Confirmed amiodarone 200 mg PO BID 03/24/18 08/03/18 allopurinol 100 mg PO DAILY 08/03/18 08/03/18 aspirin 325 mg PO DAILY 08/03/18 08/03/18 beclomethasone dipropionate [Qvar 1 puff INHALATION Q12H 08/03/18 08/03/18 RediHaler] buspirone 5 mg PO BID 08/03/18 08/03/18 clonidine HCl 0.1 mg PO BID 08/03/18 08/03/18 divalproex [Depakote] 500 mg PO BID 08/03/18 08/03/18 furosemide 20 mg PO DAILY 08/03/18 08/03/18 gabapentin 100 mg PO TID 08/03/18 08/03/18 hydroxyzine HCl 50 mg PO BID 08/03/18 08/03/18 insulin glargine [Lantus U-100 12 unit SUBCUT BID 08/03/18 08/03/18 Insulin] insulin regular human [Novolin R 1 sliding scale dose SUBCUT UD 08/03/18 Regular U-100 Insuln] sertraline 25 mg PO BID 08/03/18 08/03/18 tamsulosin 0.4 mg PO DAILY 08/03/18 08/03/18 Allergies Allergy/AdvReac Type Severity Reaction Status Date / Time morphine AdvReac Mild Gastrointestinal Verified 08/03/18 01:50 Upset MRI PRECAUTION AdvReac Severe PACEMAKER Uncoded 03/24/18 12:04 (JLT), BULLET FRAGMENTS IN SINUS CAVITY Review of Systems ROS: all other systems reviewed are negative [facility] Social History Social History Substance History: Past History Second Hand Smoke Exposure: No Smoking Status: Never smoker How Often Do You Have a Drink Containing Alcohol: Never Recent Travel in [facility] within the Last 8 Weeks: No Recent Out of Country Travel within the Last 8 Weeks: No Exam Narrative Exam Narrative: GENERAL: Is a obese chronically ill-appearing male who is in no acute distress. Oxygen saturation is 93% on 2 L. SKIN: Warm and dry. HEAD: Atraumatic. Normocephalic. EYES: Pupils equal and round. No scleral icterus. No injection or drainage. ENT: No nasal bleeding or discharge. Mucous membranes pink and moist. NECK: Trachea midline. No JVD. CARDIOVASCULAR: Regular rate and rhythm. No murmur appreciated. RESPIRATORY: No accessory muscle use. Mildly diminished breath sounds bilaterally. No crackles. GASTROINTESTINAL: Abdomen soft, non-tender, nondistended. Hepatic and splenic margins not palpable. MUSCULOSKELETAL: No obvious deformities. No clubbing. No cyanosis. No edema. NEUROLOGICAL: Awake and alert. No obvious cranial nerve deficits. Motor grossly within normal limits. Normal speech. PSYCHIATRIC: Appropriate mood and affect; insight and judgment normal. Course Initial Documented Vital Signs Temperature 97.7 F 08/07/18 22:30 Pulse Rate 83 08/07/18 22:30 Respiratory Rate 24 08/07/18 22:30 Blood Pressure 168/77 H 08/07/18 22:30 Pulse Oximetry 93 L 08/07/18 22:30 Last Documented Vital Signs Temperature 97.7 F 08/07/18 22:37 Pulse Rate 78 08/07/18 23:04 Respiratory Rate 20 08/07/18 23:04 Blood Pressure 168/77 H 08/07/18 22:37 Pulse Oximetry 94 L 08/07/18 22:37 Medical Decision Making MDM Narrative Medical decision making narrative: The patient was placed on ECG monitoring pulse oximetry. A 12-lead EKG was obtained revealing sinus rhythm with rate of 78. Lab work, chest x-ray, ABG ordered, the patient was given DuoNeb therapy. He was given Solu-Medrol, Rocephin and azithromycin. Chest x-ray reveals no acute abnormalities. ABG reveals O2 84, pH 7.32, PCO2 81 , CMP reveals a carbon dioxide of 38, GFR 41, consistent with previous labs. Cardiac enzymes within normal limits. Initially the patient is feeling improved after DuoNeb treatment however he reports that he still is feeling dizzy and lightheaded upon reexamination. At this point in time the plan is to admit him for observation. He is agreeable. Medical Screen Exam Complete: Yes Emergency Medical Condition: Yes Differential Diagnosis Differential Diagnosis: Pneumothorax versus COPD exacerbation versus closed head injury versus dehydration versus electrolyte abnormality Lab Data Result diagrams: 08/07/18 23:01 08/07/18 23:01 Lab Results 08/07/18 08/07/18 08/07/18 Range/Units 22:45 23:01 23:01 WBC 6.0 (4.0-11.0) th/mm3 RBC 3.68 L (4.50-5.90) mil/mm3 Hgb 9.8 L (13.0-17.0) gm/dL Hct 32.1 L (39.0-51.0) % MCV 87.2 (80.0-100.0) fL MCH 26.5 L (27.0-34.0) pg MCHC 30.4 L (32.0-36.0) % RDW 16.3 (11.6-17.2) % Plt Count 210 (150-450) th/mm3 MPV 7.9 (7.0-11.0) fL Neut % (Auto) 60.8 (16.0-70.0) % Lymph % (Auto) 24.9 (9.0-44.0) % Cameron % (Auto) 9.3 H (0.0-8.0) % Eos % (Auto) 3.7 (0.0-4.0) % Baso % (Auto) 1.3 (0.0-2.0) % Neut # (Auto) 3.7 (1.8-7.7) th/mm3 Lymph # (Auto) 1.5 (1.0-4.8) th/mm3 Cameron # (Auto) 0.6 (0.0-0.9) th/mm3 Eos # (Auto) 0.2 (0.0-0.4) th/mm3 Baso # (Auto) 0.1 (0.0-0.2) th/mm3 WBC Differential . Differential Comment Auto diff final Puncture Site Right radial Patient Temperature 98.6 O2 Saturation 84 L* (90-100) % ABG pH 7.32 L (7.380-7.420) ABG pCO2 81 H* (38-42) mmHg ABG pO2 58 L* (61-120) mmHg ABG HCO3 40 H (22-26) mmol/L ABG O2 Content 11.6 L (12.0-20.0) Vol % ABG Base Excess 13.8 H (-2-2) mmol/L ABG Methemoglobin 1.1 (0-2) % Rolando Test + Hemoglobin 9.8 L (12.0-16.0) G/DL Carboxyhemoglobin 1.4 (0-4) % O2 Delivery Device Nasal cannula Liter Flow 2.00 L/M Critical Value Yes Sodium 139 (136-145) meq/L Potassium 4.2 (3.5-5.1) meq/L Chloride 96 L (98-107) meq/L Carbon Dioxide 38.0 H (21.0-32.0) meq/L Anion Gap 5 (5-15) meq/L BUN 19 H (7-18) mg/dL Creatinine 1.72 H (0.60-1.30) mg/dL Estimated GFR 41 L (>89) mL/min Random Glucose 167 H (74-106) mg/dL Calcium 8.1 L (8.5-10.1) mg/dL Magnesium 2.3 (1.5-2.5) mg/dL Total Bilirubin 0.2 (0.2-1.0) mg/dL AST 23 (15-37) U/L ALT 17 (12-78) U/L Alkaline Phosphatase 89 (45-117) U/L Total Creatine Kinase 139 (39-308) U/L CK-MB (CK-2) 4.3 H (0.5-3.6) ng/mL Troponin I Less than 0.02 L (0.02-0.05) ng/mL B-Natriuretic Peptide (0-100) pg/mL Total Protein 6.9 (6.4-8.2) g/dL Albumin 3.0 L (3.4-5.0) g/dL 08/07/18 Range/Units 23:01 WBC (4.0-11.0) th/mm3 RBC (4.50-5.90) mil/mm3 Hgb (13.0-17.0) gm/dL Hct (39.0-51.0) % MCV (80.0-100.0) fL MCH (27.0-34.0) pg MCHC (32.0-36.0) % RDW (11.6-17.2) % Plt Count (150-450) th/mm3 MPV (7.0-11.0) fL Neut % (Auto) (16.0-70.0) % Lymph % (Auto) (9.0-44.0) % Cameron % (Auto) (0.0-8.0) % Eos % (Auto) (0.0-4.0) % Baso % (Auto) (0.0-2.0) % Neut # (Auto) (1.8-7.7) th/mm3 Lymph # (Auto) (1.0-4.8) th/mm3 Cameron # (Auto) (0.0-0.9) th/mm3 Eos # (Auto) (0.0-0.4) th/mm3 Baso # (Auto) (0.0-0.2) th/mm3 WBC Differential Differential Comment Puncture Site Patient Temperature O2 Saturation (90-100) % ABG pH (7.380-7.420) ABG pCO2 (38-42) mmHg ABG pO2 (61-120) mmHg ABG HCO3 (22-26) mmol/L ABG O2 Content (12.0-20.0) Vol % ABG Base Excess (-2-2) mmol/L ABG Methemoglobin (0-2) % Rolando Test Hemoglobin (12.0-16.0) G/DL Carboxyhemoglobin (0-4) % O2 Delivery Device Liter Flow L/M Critical Value Sodium (136-145) meq/L Potassium (3.5-5.1) meq/L Chloride (98-107) meq/L Carbon Dioxide (21.0-32.0) meq/L Anion Gap (5-15) meq/L BUN (7-18) mg/dL Creatinine (0.60-1.30) mg/dL Estimated GFR (>89) mL/min Random Glucose (74-106) mg/dL Calcium (8.5-10.1) mg/dL Magnesium (1.5-2.5) mg/dL Total Bilirubin (0.2-1.0) mg/dL AST (15-37) U/L ALT (12-78) U/L Alkaline Phosphatase (45-117) U/L Total Creatine Kinase (39-308) U/L CK-MB (CK-2) (0.5-3.6) ng/mL Troponin I (0.02-0.05) ng/mL B-Natriuretic Peptide 29 (0-100) pg/mL Total Protein (6.4-8.2) g/dL Albumin (3.4-5.0) g/dL Imaging Data Radiologist's impression: Chest X-Ray 08/07/18 22:36 CONCLUSION: 1. Stable appearance with patchy opacity remaining at the left lung base most characteristic of atelectasis. 2. Cardiomegaly. Head CT 08/08/18 00:00 CONCLUSION: 1. Negative noncontrast head CT. . Discharge Plan Discharge Disposition Patient Disposition: 30 Still Patient Discharge Condition Condition: Stable Discharge Details Diagnosis: COPD exacerbation, Lightheadedness Physicians Team ED Provider: Sunil Oneill ED Midlevel Provider: Toro Yo Primary Care Provider: Primary Care PhysiciAby Rxs /Orders / Referrals /Forms Prescriptions: No Action amiodarone 200 mg Tablet 200 mg PO BID RF: 0 buspirone 5 mg Tablet 5 mg PO BID RF: 0 clonidine HCl 0.1 mg Tablet 0.1 mg PO BID RF: 0 aspirin 325 mg Tablet 325 mg PO DAILY RF: 0 hydroxyzine HCl 50 mg Tablet 50 mg PO BID RF: 0 allopurinol 100 mg Tablet 100 mg PO DAILY RF: 0 divalproex [Depakote] 500 mg Tablet,Delayed Release (Dr/Ec) 500 mg PO BID RF: 0 tamsulosin 0.4 mg Capsule 0.4 mg PO DAILY RF: 0 sertraline 25 mg Tablet 25 mg PO BID RF: 0 furosemide 20 mg Tablet 20 mg PO DAILY RF: 0 gabapentin 100 mg Capsule 100 mg PO TID RF: 0 beclomethasone dipropionate [Qvar RediHaler] 80 mcg/actuation Hfa Aerosol Breath Activated 1 puff INHALATION Q12H RF: 0 insulin glargine [Lantus U-100 Insulin] 100 unit/mL Solution 12 unit SUBCUT BID RF: 0 insulin regular human [Novolin R Regular U-100 Insuln] 100 unit/mL Solution 1 sliding scale dose SUBCUT UD RF: 0 Status ED Status: With Doctor
[2018-08-07 22:53] LABS: ABG Base Excess 13.8 mmol/L (-2-2); ABG PCO2 81 mmHg (38-42); ABG PO2 58 mmHg (61-120)
--- NOTE | 2018-08-07 23:02 | XR ---
EXAM DATE: 08/07/2018 10:53 PM EST AGE/SEX: 57 years / Male INDICATIONS: Shortness of breath. CLINICAL DATA: This is the patient's initial encounter. Patient reports that signs and symptoms have been present for 2 days and indicates a pain score of 0/10. MEDICAL/SURGICAL HISTORY: . Hypertension. Chronic obstructive pulmonary disease. Congestive hea rt failure. Diabetes. Asthma. . CABG. Pacemaker. COMPARISON: [facility] [place], CHEST 1V SINGLE AP, 08/03/2018. . FINDINGS: A single AP erect portable view of the chest was obtained and demonstrates the patient status post me anita sternotomy. The left subclavian transvenous pacer remains in place. The heart size remains enlar ged. There is mild streaky opacity remaining in the left lung base. There is no perihilar edema. The bony thorax is intact. CONCLUSION: 1. Stable appearance with patchy opacity remaining at the left lung base most characteristic of atel ectasis. 2. Cardiomegaly. Electronically signed by: Jd Weber MD 08/07/2018 11:01 PM EST
[2018-08-07 23:15] LABS: Baso # (Auto) 0.1 th/mm3 (0.0-0.2); Baso % (Auto) 1.3 % (0.0-2.0); Eos # (Auto) 0.2 th/mm3 (0.0-0.4); Eos % (Auto) 3.7 % (0.0-4.0); Hematocrit 32.1 % (39.0-51.0); Hemoglobin 9.8 gm/dL (13.0-17.0); Lymph # (Auto) 1.5 th/mm3 (1.0-4.8); Lymph % (Auto) 24.9 % (9.0-44.0); Mean Corpuscular Hemoglobin 26.5 pg (27.0-34.0); Mean Corpuscular Volume 87.2 fL (80.0-100.0); Mean Platelet Volume 7.9 fL (7.0-11.0); Mono # (Auto) 0.6 th/mm3 (0.0-0.9); Mono % (Auto) 9.3 % (0.0-8.0); Neut # (Auto) 3.7 th/mm3 (1.8-7.7); Neut % (Auto) 60.8 % (16.0-70.0); Platelet Count 210 th/mm3 (150-450); Red Blood Count 3.68 mil/mm3 (4.50-5.90); Red Cell Distribution Width 16.3 % (11.6-17.2)
[2018-08-07 23:18] LABS: Mean Corpuscular HGB Conc 30.4 % (32.0-36.0)
[2018-08-07 23:34] LABS: Anion Gap 5 meq/L (5-15); Aspartate Aminotransferase 23 U/L (15-37); Blood Urea Nitrogen 19 mg/dL (7-18); Calcium 8.1 mg/dL (8.5-10.1); Chloride 96 meq/L (98-107); Glomerular Filtration Rate 41 mL/min (>89); Glucose,Random 167 mg/dL (74-106); Magnesium 2.3 mg/dL (1.5-2.5); Potassium 4.2 meq/L (3.5-5.1); Sodium 139 meq/L (136-145)
[2018-08-07 23:35] LABS: Alanine Aminotransferase 17 U/L (12-78)
[2018-08-07 23:39] LABS: Alkaline Phosphatase 89 U/L (45-117); Creatine Kinase 139 U/L (39-308); Total Protein 6.9 g/dL (6.4-8.2)
[2018-08-07] MEDS ORDERED: MethylPREDNISolone Sod Succinate Inj 125 MG/2 ML Vial IV.PUSH ONE (23:50)
[2018-08-07] MEDS ORDERED: Azithromycin Inj 500 MG in Sodium Chlor 0.9% Inj 250 ML IV.SIG ONE (23:50)
[2018-08-07 23:52] LABS: Creatine Kinase MB 4.3 ng/mL (0.5-3.6)
--- NOTE | 2018-08-08 00:47 | CT ---
EXAM DATE: 08/08/2018 12:16 AM EST AGE/SEX: 57 years / Male INDICATIONS: Cephalgia, dizziness. CLINICAL DATA: This is the patient's initial encounter. Patient reports that signs and symptoms have been present for 3 days and indicates a pain score of 5/10. MEDICAL/SURGICAL HISTORY: Chronic obstructive pulmonary disease. Congestive heart failure. Diabet es. CAD. None. RADIATION DOSE: 66.34 CTDI (mGy) COMPARISON: No prior exams available for comparison. TECHNIQUE: CT of the head without contrast. Using automated exposure control and adjustment of the mA and/or kV according to patient size, radiation dose was kept as low as reasonably achievable to ob tain optimal diagnostic quality images. DICOM format image data is available electronically for revi ew and comparison. FINDINGS: Cerebrum: The ventricles are normal for age. No evidence of midline shift, mass lesion, hemorrhage or acute infarction. No extraaxial fluid collections are seen. Posterior Fossa: The cerebellum and brainstem are intact. The 4th ventricle is midline. The cerebe llopontine angle is unremarkable. Extracranial: The visualized portion of the orbits is intact. Skull: The calvaria is intact. No evidence of skull fracture. CONCLUSION: 1. Negative noncontrast head CT. . Electronically signed by: Jd Weber MD 08/08/2018 12:46 AM EST
[2018-08-08] MEDS ORDERED: Bisacodyl 10 MG Supp RECTAL PRN (02:34)
[2018-08-08] MEDS ORDERED: Acetaminophen 325 MG Tablet PO PRN (02:34)
[2018-08-08] MEDS ORDERED: Dextrose 50% in Water 50 ML Vial IV.PUSH PRN ×2 (02:34→12:05)
--- NOTE | 2018-08-08 03:02 | P.HP ---
History of Present Illness Service: [facility] Primary Care Physician: No Primary Care Physician History of Present Illness: 7-year-old male with a past medical history significant for COPD on 2 L nasal cannula, CAD status post CABG, cardiomyopathy and congestive heart failure, TANA , hypertension, hyperlipidemia, gout, chronic kidney disease stage III, diabetes mellitus, history of CVA, bipolar disorder, depression and anxiety presents to the emergency department for the evaluation of shortness of breath. The patient endorses accompanying chest pressure times 2 days with associated nausea and lightheadedness. Denies any fever/chills. Denies increased cough or sputum production. No emesis. No lateralizing signs/symptoms. Review of Systems All other systems reviewed negative except as stated in HPI [facility] - History History Provided By: Patient - Medical History Medical History: Medical History (Last Updated 08/08/18 @ 02:47 by Ban Vela MD) Bipolar disorder Chronic kidney disease, stage III (moderate) Congestive heart failure Coronary artery disease Depression with anxiety History of CVA (cerebrovascular accident) Hypertension Asthma COPD (chronic obstructive pulmonary disease) Cardiac defibrillator in place Diabetes Gout - Surgical History Surgical History: Surgical History (Last Updated 08/08/18 @ 02:48 by Ban Vela MD) AICD (automatic cardioverter/defibrillator) present History of enucleation of right eyeball H/O heart bypass surgery - Family History Family History: Family History (Last Updated 08/08/18 @ 02:48 by Ban Vela MD) Other Coronary artery disease Diabetes mellitus - Tobacco History Second Hand Smoke Exposure: No Smoking Status: Never smoker - Alcohol History How Often Do You Have a Drink Containing Alcohol: Never - Substance Use History Substance History: Past History - Substance Use Type Crack/Cocaine Status: Sustained Remission Route Used: Inhalation Comment: 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 - Travel History Recent Travel in the [place] Within the Last 8 Weeks: No Recent Travel Out of the Country Within the Last 8 Weeks: No - Immunization History Tetanus Immunization: <5 Years Medications and Allergies Active Medications: Active Medications Acetaminophen (Tylenol) 650 mg PO Q4H PRN PRN Reason: Temp > 100.4 Al Hydroxide/Mg Hydroxide (Milk Of Magnkunal Liq) 30 ml PO Q12H PRN PRN Reason: Mild Constipation Albuterol (Duoneb Neb (Lester)) 1 ampul NEB Q4HR NEB LESTER Allopurinol (Zyloprim) 100 mg PO DAILY [facility] Amiodarone HCl (Cordarone) 200 mg PO BID [facility] Aspirin (Aspirin) 325 mg PO DAILY [facility] Bisacodyl (Dulcolax Supp) 10 mg RECTAL DAILY PRN PRN Reason: SEVERE CONSITIPATION Buspirone HCl (Buspar) 5 mg PO BID [facility] [place] Clonidine HCl (Clonidine (Nicu) 20 Mcg/Ml Liq) 100 mcg PO BID [facility] [place] Dextrose (D50w Vial) 50 ml IV.PUSH UNSCH PRN PRN Reason: PER HYPOGLYCEMIA PROTOCOL Divalproex Sodium (Depakote Dr) 500 mg PO BID [facility] Furosemide (Lasix) 20 mg PO DAILY [facility] Gabapentin (Neurontin) 100 mg PO TID LESTER Glucagon (Glucagon Inj) 1 mg OTHER PRN PRN PRN Reason: for Hypoglycemia Protocol Insulin Aspart (Novolog Insulin Correctional Sugar Inj) 0 unit SQ ACHS AND 3AM LESTER; Protocol Lactulose (Lactulose Liq) 30 ml PO DAILY PRN PRN Reason: SEVERE CONSITIPATION Methylprednisolone Sodium Succinate (Solumedrol Inj) 60 mg IV.PUSH Q6H LESTER Non-Formulary Medication (Insulin Glargine) 12 unit SQ BID [facility] [place] Non-Formulary Medication (Sertraline [Sertraline]) 25 mg PO BID [facility] Ondansetron HCl (Zofran Inj) 4 mg IV.PUSH Q6H PRN PRN Reason: NAUSEA OR VOMITING Senna/Docusate Sodium (Simi-Colace) 1 tab PO BID [facility] Sennosides (Senokot) 17.2 mg PO Q12H PRN PRN Reason: Moderate Constipation Tamsulosin HCl (Flomax) 0.4 mg PO DAILY [facility] Allergies Allergy/AdvReac Type Severity Reaction Status Date / Time morphine AdvReac Mild Gastrointestinal Verified 08/03/18 01:50 Upset MRI PRECAUTION AdvReac Severe PACEMAKER Uncoded 03/24/18 12:04 (JLT), BULLET FRAGMENTS IN SINUS CAVITY Home Medications Medication Instructions Recorded Confirmed Type amiodarone 200 mg PO BID 03/24/18 08/08/18 History allopurinol 100 mg PO DAILY 08/03/18 08/08/18 History aspirin 325 mg PO DAILY 08/03/18 08/08/18 History beclomethasone dipropionate [Qvar 1 puff INHALATION Q12H 08/03/18 08/08/18 History RediHaler] buspirone 5 mg PO BID 08/03/18 08/08/18 History clonidine HCl 0.1 mg PO BID 08/03/18 08/08/18 History divalproex [Depakote] 500 mg PO BID 08/03/18 08/08/18 History furosemide 20 mg PO DAILY 08/03/18 08/08/18 History gabapentin 100 mg PO TID 08/03/18 08/08/18 History hydroxyzine HCl 50 mg PO BID 08/03/18 08/08/18 History insulin glargine [Lantus U-100 12 unit SUBCUT BID 08/03/18 08/08/18 History Insulin] insulin regular human [Novolin R 1 sliding scale dose SUBCUT UD 08/03/18 History Regular U-100 Insuln] sertraline 25 mg PO BID 08/03/18 08/08/18 History tamsulosin 0.4 mg PO DAILY 08/03/18 08/08/18 History Exam Vital signs: Vital Signs 08/07/18 22:30 08/07/18 22:37 08/07/18 23:04 Temperature 97.7 F 97.7 F Pulse Rate 83 83 78 Respiratory Rate 24 24 20 Blood Pressure 168/77 H 168/77 H Pulse Oximetry 93 L 94 L 08/08/18 02:16 08/08/18 02:25 Temperature Pulse Rate 89 Respiratory Rate 22 Blood Pressure 178/82 H Pulse Oximetry 92 L 92 L Intake & Output 08/07/18 08/07/18 08/08/18 06:59 18:59 06:59 Intake Total 350 / 350 Balance 350 / 350 Weight 149.685 kg Intake: IV 350 / 350 Azithromycin Inj 500 MG In NS 250 / 250 Inj 250 ML @ 250 mls/hr IV.SIG ONCE ONE Rx#:[id number] Rocephin Inj 1,000 MG In NS Inj 100 / 100 100 ML @ 200 mls/hr IV.SIG ONCE ONE Rx#:[id number] Narrative: Gen.: No acute distress Head: Normocephalic. Atraumatic. EENT: Pupils equal round and reactive to light. Nose without drainage. Airway intact. Throat without injection. Cardiovascular: Regular rate and rhythm. No murmurs, rubs or gallops. Respiratory: Extremely poor air movement. No wheezes. Abdomen: Soft, nontender, nondistended. No peritoneal signs. Musculoskeletal: No gross deformities. No edema. Skin: No obvious rashes or erythema. Neuro: Sensory and motor grossly intact. Cranial nerves II through XII grossly intact. Results - Labs CBC & Chem 7: 08/07/18 23:01 08/07/18 23:01 Labs: Laboratory Results - last 24 hr 08/07/18 08/07/18 08/07/18 22:45 23:01 23:01 WBC 6.0 RBC 3.68 L Hgb 9.8 L Hct 32.1 L MCV 87.2 MCH 26.5 L MCHC 30.4 L RDW 16.3 Plt Count 210 MPV 7.9 Neut % (Auto) 60.8 Lymph % (Auto) 24.9 Morehouse % (Auto) 9.3 H Eos % (Auto) 3.7 Baso % (Auto) 1.3 Neut # (Auto) 3.7 Lymph # (Auto) 1.5 [place]house # (Auto) 0.6 Eos # (Auto) 0.2 Baso # (Auto) 0.1 WBC Differential . Differential Comment Auto diff final Puncture Site Right radial Patient Temperature 98.6 O2 Saturation 84 L* ABG pH 7.32 L ABG pCO2 81 H* ABG pO2 58 L* ABG HCO3 40 H ABG O2 Content 11.6 L ABG Base Excess 13.8 H ABG Methemoglobin 1.1 Rolando Test + Hemoglobin 9.8 L Carboxyhemoglobin 1.4 O2 Delivery Device Nasal cannula Liter Flow 2.00 Critical Value Yes Sodium 139 Potassium 4.2 Chloride 96 L Carbon Dioxide 38.0 H Anion Gap 5 BUN 19 H Creatinine 1.72 H Estimated GFR 41 L Random Glucose 167 H Calcium 8.1 L Magnesium 2.3 Total Bilirubin 0.2 AST 23 ALT 17 Alkaline Phosphatase 89 Total Creatine Kinase 139 CK-MB (CK-2) 4.3 H Troponin I Less than 0.02 L B-Natriuretic Peptide Total Protein 6.9 Albumin 3.0 L 08/07/18 23:01 WBC RBC Hgb Hct MCV MCH MCHC RDW Plt Count MPV Neut % (Auto) Lymph % (Auto) [place]house % (Auto) Eos % (Auto) Baso % (Auto) Neut # (Auto) Lymph # (Auto) [place]house # (Auto) Eos # (Auto) Baso # (Auto) WBC Differential Differential Comment Puncture Site Patient Temperature O2 Saturation ABG pH ABG pCO2 ABG pO2 ABG HCO3 ABG O2 Content ABG Base Excess ABG Methemoglobin Rolando Test Hemoglobin Carboxyhemoglobin O2 Delivery Device Liter Flow Critical Value Sodium Potassium Chloride Carbon Dioxide Anion Gap BUN Creatinine Estimated GFR Random Glucose Calcium Magnesium Total Bilirubin AST ALT Alkaline Phosphatase Total Creatine Kinase CK-MB (CK-2) Troponin I B-Natriuretic Peptide 29 Total Protein Albumin - Imaging Impressions Chest X-Ray 08/07/18 22:36 CONCLUSION: 1. Stable appearance with patchy opacity remaining at the left lung base most characteristic of atelectasis. 2. Cardiomegaly. Head CT 08/08/18 00:00 CONCLUSION: 1. Negative noncontrast head CT. . Caprini VTE Risk Assessment Caprini VTE Risk Assessment: No/Low Risk (score <= 1) Caprini Risk Assessment Model: Point Value = 1 Point Value = 2 Point Value = 3 Point Value = 5 Age 41-60 Minor surgery BMI > 25 kg/m2 Swollen legs Varicose veins or History of unexplained or recurrent spontaneous Oral contraceptives or hormone replacement Sepsis (< 1 month) Serious lung disease, including pneumonia (< 1 month) Abnormal pulmonary function Acute myocardial infarction Congestive heart failure (< 1 month) History of inflammatory bowel disease Medical patient at bed rest Age 61-74 Arthroscopic surgery Major open surgery (> 45 min) Laparoscopic surgery (> 45 min) Malignancy Confined to bed (> 72 hours) Immobilizing plaster cast Central venous access Age >= 75 History of VTE Family history of VTE Factor V Leiden Prothrombin [id number] Lupus anticoagulant Anticardiolipin antibodies Elevated serum homocysteine Heparin-induced thrombocytopenia Other congenital or acquired thrombophilia Stroke (< 1 month) Elective arthroplasty Hip, pelvis, or leg fracture Acute spinal cord injury (< 1 month) Prophylaxis Regimen: Total Risk Factor Score Risk Level Prophylaxis Regimen 0-1 Low Early ambulation 2 Moderate Order ONE of the following: *Sequential Compression Device (SCD) *Heparin 5000 units SQ BID 3-4 Higher Order ONE of the following medications: *Heparin 5000 units SQ TID *Enoxaparin/Lovenox 40 mg SQ daily (WT < 150 kg, CrCl > 30 mL/min) *Enoxaparin/Lovenox 30 mg SQ daily (WT < 150 kg, CrCl > 10-29 mL/min) *Enoxaparin/Lovenox 30 mg SQ BID (WT < 150 kg, CrCl > 30 mL/min) AND/OR *Sequential Compression Device (SCD) 5 or more Highest Order ONE of the following medications: *Heparin 5000 units SQ TID (Preferred with Epidurals) *Enoxaparin/Lovenox 40 mg SQ daily (WT < 150 kg, CrCl > 30 mL/min) *Enoxaparin/Lovenox 30 mg SQ daily (WT < 150 kg, CrCl > 10-29 mL/min) *Enoxaparin/Lovenox 30 mg SQ BID (WT < 150 kg, CrCl > 30 mL/min) AND *Sequential Compression Device (SCD) Assessment and Plan - Plan Assessment/plan: 1. COPD exacerbation ABG 7.32/81/58/40 BiPAP for hypercapnia Repeat ABG in 6 hours IV steroids Duo nebs Wean BiPAP as tolerated 2. Chest pain/pressure Initial troponin negative ACS rule out pending; serial troponins/EKGs 3. Diabetes mellitus Continue home Lantus Sliding-scale insulin Monitor blood glucose 4. CHF Continue home Lasix Echo on 10/16/17 showed an EF of 55-60% 5. Hypertension/hyperlipidemia/coronary artery disease Continue home medications 6. Bipolar disorder/gout Continue home medication 7. Acute on chronic renal insufficiency Mean 1.72, baseline approximately 1 Patient has been of chronic kidney disease Monitor renal function Holding IV fluids as the patient has history of CHF FEN Heart healthy and diabetic diet Electrolytes: Monitor and replete as needed
[2018-08-08] MEDS: Insulin NovoLOG Aspart Correctional Sugar Inj SQ SCH ×5 (03:35→20:56)
[2018-08-08] MEDS: MethylPREDNISolone Sod Succinate Inj 125 MG/2 ML Vial IV.PUSH SCH ×4 (03:38→20:54)
[2018-08-08 06:43] LABS: Creatine Kinase 296 U/L (39-308)
--- NOTE | 2018-08-08 08:30 | ECG ---
Date Performed: 08/08/2018 Time Performed: 05:07:25 PTAGE: 57 years EKG: Sinus rhythm INTRAVENTRICULAR CONDUCTION DELAY ABNORMAL ECG NO PREVIOUS TRACING DOCTOR: Cong Hanson Interpretating Date/Time 08/08/2018 08:29:19
[2018-08-08] MEDS ORDERED: Amiodarone 200 MG Tablet PO SCH (09:00)
[2018-08-08] MEDS ORDERED: Insulin Detemir Inj 1,000 UNIT/10 ML Vial SQ SCH (09:00)
[2018-08-08] MEDS: Furosemide 20 MG Tablet PO SCH (09:18)
[2018-08-08] MEDS: Divalproex 500 MG DR Tablet PO SCH ×3 (09:18→22:22)
[2018-08-08] MEDS: Aspirin 325 MG Tablet PO SCH (09:19)
[2018-08-08] MEDS: Gabapentin 100 MG Capsule PO SCH ×3 (09:19→17:19)
[2018-08-08] MEDS: Senna/Docusate Sodium 8.6/50 MG Tablet PO SCH ×2 (09:19→20:54)
[2018-08-08 09:24] LABS: ABG PCO2 128 mmHg (38-42); ABG PO2 93 mmHg (61-120)
[2018-08-08] MEDS: Sertraline 50 MG Tablet PO SCH ×2 (09:38→20:54)
[2018-08-08] MEDS: Allopurinol 100 MG Tablet PO SCH (09:38)
[2018-08-08] MEDS ORDERED: Etomidate Inj 40 MG/20 ML Vial IV.PUSH ONE (10:42)
[2018-08-08] MEDS ORDERED: Propofol 1000 mg/100 ml Inj 1,000 MG/100 ML BOTTLE ONE ×2 (10:42→13:22)
[2018-08-08] MEDS ORDERED: Midazolam Inj 5 MG/ML 1 ML Vial ONE (10:43)
[2018-08-08] MEDS ORDERED: Potassium Chloride 25 MEQ Effervescent Tablet PO PRN (11:27)
[2018-08-08] MEDS ORDERED: Potassium Phosphate Inj 30 MMOL in Sodium Chlor 0.9% Inj 250 ML IV.SIG PRN (11:27)
[2018-08-08] MEDS ORDERED: Magnesium Sulfate Inj 4 GM in Sodium Chlor 0.9% Inj 92 ML IV.SIG PRN (11:27)
[2018-08-08] MEDS ORDERED: Magnesium Oxide 400 MG Tablet PO PRN (11:27)
[2018-08-08] MEDS ORDERED: Potassium Chlor 20 mEq Premix 20 MEQ/100 ML PIGGYBACK IV.SIG PRN ×2 (11:27)
[2018-08-08] MEDS ORDERED: Magnesium Sulfate Inj 2 GM in Sodium Chlor 0.9% Inj 96 ML IV.SIG PRN (11:27)
[2018-08-08] MEDS ORDERED: Sodium Phosphate Inj 30 MMOL in Sodium Chlor 0.9% Inj 250 ML IV.SIG PRN (11:27)
[2018-08-08] MEDS ORDERED: Potassium Phosphate 500 MG Soluble Tablet PO PRN ×2 (11:27)
[2018-08-08] MEDS ORDERED: Potassium Chlor 40 mEq Premix 40 MEQ/100 ML PIGGYBACK IV.SIG PRN ×2 (11:27)
--- NOTE | 2018-08-08 11:34 | P.PCN ---
Date of procedure: 08/08/18 Pre-op diagnosis: Acute hypercarbic respiratory failure Post-op diagnosis: same Procedure: Endotracheal intubation Rapid Sequence Intubation was conducted. The patient received 10 mg IV Versed, 20 mg IV etomidate, 50 mg IV rocuronium for intubation. Cricoid pressure was maintained from time induction agent was given to time of cuff balloon inflation. Using a direct laryngoscope MAC 4 blade a grade 2 view was obtained, and a size 8.0 endotracheal tube with stylet was placed on the first attempt. The stylet was removed and cuff balloon was inflated. Appropriate endotracheal tube position was confirmed by direct visualization of vocal cord passage, fogging of the tube, CO2 colometric indicator and symmetric breath sounds. The tube was secured at 24 cm at the lips. Postintubation chest x-ray is pending at this time Anesthesia: DIANA Surgeon: Shanel Islas Estimated blood loss (mL): 0 Pathology: none sent Condition: critical Disposition: ICU
--- NOTE | 2018-08-08 11:38 | ECG ---
Date Performed: 08/07/2018 Time Performed: 22:31:28 PTAGE: 57 years EKG: Sinus rhythm INTRAVENTRICULAR CONDUCTION DELAY ANTEROLATERAL MYOCARDIAL INFARCTION ABNORMAL ECG NO PREVIOUS TRACING DOCTOR: Cong Hanson Interpretating Date/Time 08/08/2018 11:35:30
--- NOTE | 2018-08-08 11:39 | P.CONCC ---
History of Present Illness Service: Critical care Consult date: 08/08/18 Reason for Consult: Acute hypoxemic respiratory failure, acute COPD exacerbation Primary Care Provider: No Primary Care Physician Chief Complaint: Altered mental status COPD exacerbation History of Present Illness: Patient is 57-year-old male with a past medical history significant for COPD on 2 L nasal cannula, CAD status post CABG, cardiomyopathy and congestive heart failure, AICD, TANA, hypertension, hyperlipidemia, gout, chronic kidney disease stage III, diabetes mellitus, history of CVA, bipolar disorder, super morbid obesity, depression and anxiety presents to the emergency department for the evaluation of shortness of breath. This was associated with chest pressure nausea and lightheadedness. Chest x-ray in the emergency department showed left lower lobe infiltrate versus atelectasis. Initial ABG showed pH of 7.32 PCO2 of 81 PO2 58. Patient was given IV steroids and breathing treatments and also antibiotics Rocephin and azithromycin single dose. Patient was placed on BiPAP and was admitted to hospitalist service. Later today patient was found to be increasingly somnolent despite BiPAP. I am also told patient had been intermittently taking the BiPAP was mask off due to confusion. A repeat ABG showed a pH of 7.11 PCO2 128 and PO2 93. Due to acute worsening of hypercapnic respiratory failure and CO2 narcosis critical care was consulted. I evaluated the patient in the ED. He appears somnolent and confused I explained to him that at this point he has failed BiPAP, and will need endotracheal intubation and mechanical ventilation. I spoke on the phone with his brother Dom per his request. After this I intubated and placed him on mechanical ventilation. Patient will be continued on IV steroids and breathing treatments. Antibiotics cefepime and azithromycin started. Review of Systems unobtainable due to mental condition PMFSH - History History Provided By: Patient - Medical History Medical History: Medical History (Last Reviewed 08/08/18 @ 11:43 by Shanel Islas MD) Bipolar disorder Chronic kidney disease, stage III (moderate) Congestive heart failure Coronary artery disease Depression with anxiety History of CVA (cerebrovascular accident) Hypertension Asthma COPD (chronic obstructive pulmonary disease) Cardiac defibrillator in place Diabetes Gout - Surgical History Surgical History: Surgical History (Last Reviewed 08/08/18 @ 11:43 by Shanel Islas MD) AICD (automatic cardioverter/defibrillator) present History of enucleation of right eyeball H/O heart bypass surgery - Family History Family History: Family History (Last Updated 08/08/18 @ 02:48 by Ban Vela MD) Other Coronary artery disease Diabetes mellitus - Tobacco History Second Hand Smoke Exposure: No Smoking Status: Never smoker - Alcohol History How Often Do You Have a Drink Containing Alcohol: Never - Substance Use History Substance History: Past History - Substance Use Type Crack/Cocaine Status: Sustained Remission Route Used: Inhalation Comment: 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 - Travel History Recent Travel in the [facility] Within the Last 8 Weeks: No Recent Travel Out of the Country Within the Last 8 Weeks: No - Immunization History Tetanus Immunization: <5 Years Medications and Allergies Active Medications: Active Medications Acetaminophen (Tylenol) 650 mg PO Q4H PRN PRN Reason: Temp > 100.4 Al Hydroxide/Mg Hydroxide (Milk Of Magnkunal Liq) 30 ml PO Q12H PRN PRN Reason: Mild Constipation Albuterol (Duoneb Neb (Lester)) 1 ampul NEB Q4HR NEB [facility] Last Admin: 08/08/18 08:15 Dose: 1 ampul Albuterol (Duoneb Neb (Prn)) 1 ampul NEB Q2HR NEB PRN PRN Reason: SHORTNESS OF BREATH Albuterol (Duoneb Neb (Lester)) 1 ampul NEB Q4HR NEB [facility] Albuterol (Duoneb Neb (Prn)) 1 ampul NEB Q2HR NEB PRN PRN Reason: SHORTNESS OF BREATH Allopurinol (Zyloprim) 100 mg PO DAILY [facility] Last Admin: 08/08/18 09:38 Dose: Not Given Amiodarone HCl (Cordarone) 200 mg PO BID [facility] Last Admin: 08/08/18 09:18 Dose: 200 mg Aspirin (Aspirin) 325 mg PO DAILY [facility] Last Admin: 08/08/18 09:19 Dose: 325 mg Bisacodyl (Dulcolax Supp) 10 mg RECTAL DAILY PRN PRN Reason: SEVERE CONSITIPATION Buspirone HCl (Buspar) 5 mg PO BID [facility] Last Admin: 08/08/18 09:19 Dose: 5 mg Chlorhexidine Gluconate (Peridex 0.12% Oral Kit) 15 ml OROPHARYNG BID@0800, 2000 [facility] Clonidine HCl (Catapres) 0.1 mg PO BID [facility] Last Admin: 08/08/18 09:18 Dose: 0.1 mg Dextrose (D50w Vial) 50 ml IV.PUSH UNSCH PRN PRN Reason: PER HYPOGLYCEMIA PROTOCOL Divalproex Sodium (Depakote Dr) 500 mg PO BID [facility] Last Admin: 08/08/18 09:18 Dose: 500 mg Famotidine (Pepcid Pf Inj) 20 mg IV.PUSH Q12HR [facility] Furosemide (Lasix) 20 mg PO DAILY [facility] Last Admin: 08/08/18 09:18 Dose: 20 mg Gabapentin (Neurontin) 100 mg PO TID [facility] Last Admin: 08/08/18 09:19 Dose: 100 mg Glucagon (Glucagon Inj) 1 mg OTHER PRN PRN PRN Reason: for Hypoglycemia Protocol Heparin Sodium (Porcine) (Heparin Inj) 5,000 units SQ Q8H [facility] Magnesium Sulfate 4 gm/ Sodium (Chloride) 100 mls @ 50 mls/hr IV.SIG UNSCH PRN PRN Reason: For Magnesium 0.9 - 1.1 mg/dL Magnesium Sulfate 2 gm/ Sodium (Chloride) 100 mls @ 50 mls/hr IV.SIG UNSCH PRN PRN Reason: For Magnesium 1.2 - 1.6 mg/dL Potassium Chloride (Kcl 40 Meq Premix Inj) 40 meq in 100 mls @ 25 mls/hr IV.SIG Q2H PRN PRN Reason: For Potassium 2.8 - 3.2 mEq/L Potassium Chloride (Kcl 20 Meq Premix Inj) 20 meq in 100 mls @ 50 mls/hr IV.SIG Q2H PRN PRN Reason: For Potassium 3.3 - 3.5 mEq/L Potassium Chloride (Kcl 40 Meq Premix Inj) 40 meq in 100 mls @ 25 mls/hr IV.SIG UNSCH PRN PRN Reason: For Potassium 3.3 - 3.5 mEq/L Potassium Chloride (Kcl 20 Meq Premix Inj) 20 meq in 100 mls @ 50 mls/hr IV.SIG Q2H PRN PRN Reason: For Potassium 2.8 - 3.2 mEq/L Potassium Phosphate 30 mmol/ (Sodium Chloride) 260 mls @ 42 mls/hr IV.SIG UNSCH PRN PRN Reason: SEE LABEL COMMENTS Sodium Phosphate 30 mmol/ (Sodium Chloride) 260 mls @ 42 mls/hr IV.SIG UNSCH PRN PRN Reason: For Phosphorus < 2.5 mg/dL Cefepime HCl 2,000 mg/ Sodium (Chloride) 100 mls @ 200 mls/hr IV.SIG Q8H [facility] Azithromycin 500 mg/ Sodium (Chloride) 250 mls @ 250 mls/hr IV.SIG Q24H [facility] Sodium Chloride (Ns Inj) 1,000 mls @ 75 mls/hr IV.CONT .[id number] [facility] Insulin Aspart (Novolog Insulin Correctional Sugar Inj) 0 unit SQ ACHS AND 3AM LE[facility]; Protocol Last Admin: 08/08/18 09:20 Dose: 7 unit Insulin Detemir (Levemir Inj) 12 unit SQ BID [facility] Last Admin: 08/08/18 09:19 Dose: 12 unit Lactulose (Lactulose Liq) 30 ml PO DAILY PRN PRN Reason: SEVERE CONSITIPATION Magnesium Oxide (Mag-Ox) 800 mg PO UNSCH PRN PRN Reason: For Magnesium 1.2 - 1.6 mg/dL Methylprednisolone Sodium Succinate (Solumedrol Inj) 60 mg IV.PUSH Q6H [facility] Last Admin: 08/08/18 09:39 Dose: 60 mg Miscellaneous (Pill Splitter) 1 each OTHER UNSCH PRN PRN Reason: SEE LABEL COMMENTS Miscellaneous Medication () 1 each OROPHARYNG 0000,0400,1200,1600 [facility] Ondansetron HCl (Zofran Inj) 4 mg IV.PUSH Q6H PRN PRN Reason: NAUSEA OR VOMITING Potassium Bicarb/Potassium Chloride (K-Lyte Cl Eff) 50 meq PO UNSCH PRN PRN Reason: For Potassium 3.3 - 3.5 mEq/L Potassium Phosphate (K-Phos Original) 2,000 mg PO Q4H PRN PRN Reason: Phosphorus Less Than 2.5 mg/dL Potassium Phosphate (K-Phos Original) 2,000 mg PO UNSCH PRN PRN Reason: SEE LABEL COMMENTS Senna/Docusate Sodium (Simi-Colace) 1 tab PO BID [facility] Last Admin: 08/08/18 09:19 Dose: 1 tab Sennosides (Senokot) 17.2 mg PO Q12H PRN PRN Reason: Moderate Constipation Sertraline HCl (Zoloft) 25 mg PO BID [facility] Last Admin: 08/08/18 09:38 Dose: Not Given Tamsulosin HCl (Flomax) 0.4 mg PO DAILY [facility] Last Admin: 08/08/18 09:19 Dose: 0.4 mg Allergies Allergy/AdvReac Type Severity Reaction Status Date / Time morphine AdvReac Mild Gastrointestinal Verified 08/03/18 01:50 Upset MRI PRECAUTION AdvReac Severe PACEMAKER Uncoded 03/24/18 12:04 (JLT), BULLET FRAGMENTS IN SINUS CAVITY Home Medications Medication Instructions Recorded Confirmed Type amiodarone 200 mg PO BID 03/24/18 08/08/18 History allopurinol 100 mg PO DAILY 08/03/18 08/08/18 History aspirin 325 mg PO DAILY 08/03/18 08/08/18 History beclomethasone dipropionate [Qvar 1 puff INHALATION Q12H 08/03/18 08/08/18 History RediHaler] buspirone 5 mg PO BID 08/03/18 08/08/18 History clonidine HCl 0.1 mg PO BID 08/03/18 08/08/18 History divalproex [Depakote] 500 mg PO BID 08/03/18 08/08/18 History furosemide 20 mg PO DAILY 08/03/18 08/08/18 History gabapentin 100 mg PO TID 08/03/18 08/08/18 History hydroxyzine HCl 50 mg PO BID 08/03/18 08/08/18 History insulin glargine [Lantus U-100 12 unit SUBCUT BID 08/03/18 08/08/18 History Insulin] insulin regular human [Novolin R 1 sliding scale dose SUBCUT UD 08/03/18 History Regular U-100 Insuln] sertraline 25 mg PO BID 08/03/18 08/08/18 History tamsulosin 0.4 mg PO DAILY 08/03/18 08/08/18 History Physical Exam Vital signs: Vital Signs 08/07/18 22:30 08/07/18 22:37 08/07/18 23:04 Temperature 97.7 F 97.7 F Pulse Rate 83 83 78 Respiratory Rate 24 24 20 Blood Pressure 168/77 H 168/77 H Pulse Oximetry 93 L 94 L 08/08/18 02:16 08/08/18 02:25 08/08/18 03:56 Temperature Pulse Rate 89 Respiratory Rate 22 Blood Pressure 178/82 H Pulse Oximetry 92 L 92 L 92 L 08/08/18 04:07 08/08/18 05:46 08/08/18 05:50 Temperature Pulse Rate 88 83 Respiratory Rate 21 22 Blood Pressure 155/72 H Pulse Oximetry 96 08/08/18 07:00 08/08/18 08:16 08/08/18 09:30 Temperature Pulse Rate 82 77 88 Respiratory Rate 28 H 18 20 Blood Pressure 155/72 H 146/69 H Pulse Oximetry 94 L 94 L 94 L 08/08/18 09:33 08/08/18 10:48 08/08/18 10:53 Temperature Pulse Rate 98 H 101 H Respiratory Rate 16 Blood Pressure 197/99 H 198/114 H Pulse Oximetry 97 100 08/08/18 10:57 08/08/18 10:59 08/08/18 11:02 Temperature Pulse Rate 93 H 91 H 91 H Respiratory Rate 16 16 16 Blood Pressure 214/103 H 198/86 H 170/79 H Pulse Oximetry 100 100 100 08/08/18 11:08 08/08/18 11:24 Temperature Pulse Rate 84 76 Respiratory Rate 16 16 Blood Pressure 157/78 H 161/82 H Pulse Oximetry 100 95 Intake & Output 08/07/18 08/08/18 08/08/18 18:59 06:59 18:59 Intake Total 350 / 350 Balance 350 / 350 Weight 149.685 kg Intake: IV 350 / 350 Azithromycin Inj 500 MG In NS 250 / 250 Inj 250 ML @ 250 mls/hr IV.SIG ONCE ONE Rx#:[id number] Rocephin Inj 1,000 MG In NS Inj 100 / 100 100 ML @ 200 mls/hr IV.SIG ONCE ONE Rx#:[id number] Narrative: GENERAL: Morbidly obese chronically ill-appearing male who is somnolent and confused on BiPAP SKIN: Warm and dry. HEAD: Atraumatic. Normocephalic. EYES: Pupils equal and round. ENT: No nasal bleeding or discharge. Edentulous otherwise BiPAP mask limits exam NECK: Trachea midline. No JVD. CARDIOVASCULAR: Regular rate and rhythm. No murmur appreciated. Left upper chest AICD in place. Well-healed CABG scar RESPIRATORY: Currently on BiPAP somnolent with poor respiratory effort, air entry markedly diminished bilaterally no wheezes or crackles GASTROINTESTINAL: Abdomen soft, non-tender, nondistended. Hepatic and splenic unable to palpate MUSCULOSKELETAL: No obvious deformities. No clubbing. No cyanosis. NEUROLOGICAL: Patient is currently on BiPAP very somnolent. He wakes up but falls asleep while talking. Moving all 4 extremities follows commands intermittently - Urinary Catheter Management Indwelling Urethral Catheter Cath placed during this visit: yes Reason for continuing: Hourly intake/output Insertion date: 08/08/18 Insertion time: 11:27 Septic Shock Reassessment Septic shock perfusion: reassessment completed Assessment and Plan - Assessment and Plan Plan: NEURO: Acute metabolic encephalopathy CO2 narcosis -Altered mental status secondary to hypercapnia and CO2 narcosis -Propofol and fentanyl for sedation and ventilator synchrony postintubation -Start daily sedation vacation if stable in 24-48 hours -Continue home meds Depakote and gabapentin RESP: Acute hypercapnic and hypoxemic respiratory failure Acute COPD exacerbation COPD on 2 L nasal cannula Obstructive sleep apnea -Emergently intubated and placed on mechanical ventilation -PRVC/AC, Ventilator bundle -DuoNeb every 4 hours scheduled and every 2 hours as needed -Continue IV Solu-Medrol 60 mg every 6 hours. -Budesonide twice daily inhaled -Antibiotics with cefepime and azithromycin, check sputum culture CV: History of coronary artery disease History of CABG AICD in place -Normal saline IV fluids 75 mL per hour, hold Lasix for now -Continue amiodarone continue aspirin continue clonidine -IV labetalol 20 mg every 2 hours as needed for SBP more than 160 GI: Morbid obesity -N.p.o., IV famotidine -Start tube feeds in 24 hours : Acute on chronic kidney disease -Monitor renal function closely. Place Aparicio catheter. -IV hydration as above, hold Lasix ID: Probable left lower lobe pneumonia -Antibiotics with cefepime and azithromycin -Follow-up on sputum cultures HEME: -Monitor CBC, coags ENDO: Type 2 diabetes with hyperglycemia -Electrolyte replacement per protocol -Sliding scale insulin PROPH: -Bilateral lower extremity SCDs. Subcu heparin/famotidine LINES: -Utilize peripheral IVs, right IJ central line placed 08/08/2018 CC time 55 min excluding procedural time Code Status: FULL
--- NOTE | 2018-08-08 11:54 | P.PCN ---
Date of procedure: 08/08/18 Pre-op diagnosis: Respiratory failure, need for central access Post-op diagnosis: same Procedure: US guided central line Central line checklist completed, timeout completed. I wore a surgical cap, mask with protective eyewear, full gown and sterile gloves throughout the procedure. Right neck region region was prepped using chlorhexidine scrub and draped in sterile fashion. The right IJ was identified using the ultrasound. Anesthesia was achieved over the vein using 1% lidocaine. The introducer needle was inserted into the right IJ under direct ultrasound visualization. Venous blood was withdrawn. The syringe was removed and a guidewire was advanced into the introducer needle. A small incision was made at the skin surface with a scalpel and the introducer needle was exchanged for a dilator over the guidewire. After appropriate dilation was obtained, the dilator was exchanged over the wire for a triple lumen, 7F, antibiotic coated central venous catheter. The wire was removed and the catheter was secured in place with StatLock at 18 cm. A sterile central line dressing was placed over the catheter at the insertion site. The patient tolerated the procedure without any hemodynamic compromise. At time of procedure completion, all ports aspirated and flushed properly. Post-procedure chest x-ray is pending at this time. Anesthesia: local Surgeon: Shanel Islas Estimated blood loss (mL): 1 Pathology: none sent Condition: critical Disposition: ICU
[2018-08-08] MEDS: Sod Chloride 0.9% Inj 1,000 ML IV.CONT SCH (11:59)
[2018-08-08] MEDS ORDERED: Labetalol HCl Inj 100 MG/20 ML Vial IV.PUSH PRN (12:02)
--- NOTE | 2018-08-08 12:02 | XR ---
EXAM DATE: 08/08/2018 11:55 AM EST AGE/SEX: 57 years / Male INDICATIONS: Intubation, Central Line. CLINICAL DATA: This is the patient's initial encounter. Patient reports that signs and symptoms have been present for 1 day and indicates a pain score of Nonresponsive. MEDICAL/SURGICAL HISTORY: . Hypertension. Chronic obstructive pulmonary disease. Congestive hea rt failure. Diabetes. Asthma. . CABG. Pacemaker. COMPARISON: C, CHEST 1V SINGLE AP, 08/07/2018. . FINDINGS: Single view of the chest some shows the ET tube, NG tube and right IJ central line are in good positi on. There is mild perihilar vascular congestion. There is no visible pneumothorax. CONCLUSION: Tubes and catheters in good position. Mild pulmonary vascular congestion. Electronically signed by: Cong Hendrickson MD 08/08/2018 12:01 PM EST
[2018-08-08 12:26] LABS: ABG Base Excess 10.7 mmol/L (-2-2); ABG PCO2 54 mmHg (38-42); ABG PO2 54 mmHg (61-120)
[2018-08-08] MEDS: Heparin - SQ 10,000 UNITS/ML Vial SQ SCH ×2 (12:45→20:54)
[2018-08-08 14:29] LABS: Troponin I 0.04 ng/mL (0.02-0.05)
[2018-08-08] MEDS ORDERED: Atropine Inj 1 MG/10 ML Syringe IV.PUSH ONE (15:09)
[2018-08-08] MEDS ORDERED: Atropine Inj 1 MG/10 ML Syringe ONE (15:09)
[2018-08-08] MEDS ORDERED: hydrALAZINE HCl Inj 20 MG/ML Vial IV.PUSH PRN (15:10)
[2018-08-08] MEDS: Oral Hygiene Kit OROPHARYNG SCH ×2 (15:27→15:37)
[2018-08-08 15:41] LABS: Hematocrit 34.7 % (39.0-51.0); Hemoglobin 10.6 gm/dL (13.0-17.0); Mean Corpuscular Hemoglobin 27.2 pg (27.0-34.0); Mean Corpuscular Volume 89.4 fL (80.0-100.0); Mean Platelet Volume 7.7 fL (7.0-11.0); Platelet Count 182 th/mm3 (150-450); Red Blood Count 3.88 mil/mm3 (4.50-5.90); Red Cell Distribution Width 16.6 % (11.6-17.2)
[2018-08-08 15:46] LABS: Mean Corpuscular HGB Conc 30.4 % (32.0-36.0)
[2018-08-08 16:16] LABS: Alanine Aminotransferase 18 U/L (12-78); Albumin 2.9 g/dL (3.4-5.0); Anion Gap 6 meq/L (5-15); Aspartate Aminotransferase 14 U/L (15-37); Blood Urea Nitrogen 24 mg/dL (7-18); Calcium 8.6 mg/dL (8.5-10.1); Carbon Dioxide 37.3 meq/L (21.0-32.0); Chloride 97 meq/L (98-107); Glomerular Filtration Rate 48 mL/min (>89); Glucose,Random 257 mg/dL (74-106); Magnesium 2.3 mg/dL (1.5-2.5); Potassium 4.3 meq/L (3.5-5.1); Sodium 140 meq/L (136-145)
[2018-08-08 16:17] LABS: Phosphorus 2.8 mg/dL (2.5-4.9)
[2018-08-08 16:22] LABS: Alkaline Phosphatase 96 U/L (45-117); Total Protein 7.2 g/dL (6.4-8.2)
[2018-08-08 16:48] LABS: Lymphocytes 8 % (9-44); Monocytes 1 % (0-8)
[2018-08-08 16:49] LABS: Platelet Estimate Normal (Normal); Platelet Morphology Normal (Normal)
[2018-08-08] MEDS: Artificial Tears Opth Drops 15 ML Bottle EACH EYE SCH (17:44)
[2018-08-08] MEDS: Famotidine PF Inj 20 MG/2 ML Vial IV.PUSH SCH (20:54)
[2018-08-08] MEDS: Chlorhexidine 0.12% Oral Kit 15 ML UDC OROPHARYNG SCH (20:56)
[2018-08-08] MEDS: Azithromycin Inj 500 MG in Sodium Chlor 0.9% Inj 250 ML IV.SIG SCH (23:59)
[2018-08-09] MEDS: Oral Hygiene Kit OROPHARYNG SCH ×4 (00:01→17:31)
[2018-08-09] MEDS: Insulin NovoLOG Aspart Correctional Sugar Inj SQ SCH ×6 (00:05→20:48)
[2018-08-09] MEDS: Artificial Tears Opth Drops 15 ML Bottle EACH EYE SCH ×3 (03:02→17:31)
[2018-08-09] MEDS: MethylPREDNISolone Sod Succinate Inj 125 MG/2 ML Vial IV.PUSH SCH ×4 (04:57→20:46)
[2018-08-09] MEDS: Heparin - SQ 10,000 UNITS/ML Vial SQ SCH ×3 (04:57→20:47)
[2018-08-09 05:01] LABS: Hematocrit 36.4 % (39.0-51.0); Hemoglobin 11.1 gm/dL (13.0-17.0); Mean Corpuscular Hemoglobin 26.6 pg (27.0-34.0); Mean Platelet Volume 8.3 fL (7.0-11.0); Platelet Count 212 th/mm3 (150-450); Red Blood Count 4.18 mil/mm3 (4.50-5.90); Red Cell Distribution Width 16.4 % (11.6-17.2); White Blood Count 5.5 th/mm3 (4.0-11.0)
[2018-08-09 05:05] LABS: Mean Corpuscular HGB Conc 30.5 % (32.0-36.0)
[2018-08-09 05:18] LABS: Calcium 8.3 mg/dL (8.5-10.1); Carbon Dioxide 33.9 meq/L (21.0-32.0); Potassium 3.8 meq/L (3.5-5.1)
[2018-08-09] MEDS: Midazolam 50 MG/50 ML Inj 50 MG/50 ML BAG IV.CONT PRN ×4 (06:06→20:49)
[2018-08-09 07:53] LABS: Lymphocytes 7 % (9-44); Metamyelocytes 1 % (0-1); Monocytes 2 % (0-8)
[2018-08-09 07:54] LABS: Platelet Estimate Normal (Normal); Platelet Morphology Normal (Normal)
[2018-08-09] MEDS: Famotidine PF Inj 20 MG/2 ML Vial IV.PUSH SCH ×2 (08:11→20:48)
[2018-08-09] MEDS: Furosemide 20 MG Tablet PO SCH (08:12)
[2018-08-09] MEDS: Divalproex 500 MG DR Tablet PO SCH ×2 (08:12→20:49)
[2018-08-09] MEDS: Sertraline 50 MG Tablet PO SCH ×2 (08:12→20:47)
[2018-08-09] MEDS: Gabapentin 100 MG Capsule PO SCH ×3 (08:12→17:31)
[2018-08-09] MEDS: Allopurinol 100 MG Tablet PO SCH (08:12)
[2018-08-09] MEDS: Aspirin 325 MG Tablet PO SCH (08:12)
[2018-08-09] MEDS: Senna/Docusate Sodium 8.6/50 MG Tablet PO SCH ×2 (08:12→20:48)
[2018-08-09] MEDS: Sod Chloride 0.9% Inj 1,000 ML IV.CONT SCH ×3 (08:13→14:20)
[2018-08-09] MEDS: Chlorhexidine 0.12% Oral Kit 15 ML UDC OROPHARYNG SCH ×2 (08:13→20:49)
--- NOTE | 2018-08-09 09:41 | P.PNCC ---
Subjective Subjective Remarks/Hospital Course: Patient is 57-year-old male with a past medical history significant for COPD on 2 L nasal cannula, CAD status post CABG, cardiomyopathy and congestive heart failure, AICD, TANA, hypertension, hyperlipidemia, gout, chronic kidney disease stage III, diabetes mellitus, history of CVA, bipolar disorder, super morbid obesity, depression and anxiety presents to the emergency department for the evaluation of shortness of breath. This was associated with chest pressure nausea and lightheadedness. Chest x-ray in the emergency department showed left lower lobe infiltrate versus atelectasis. Initial ABG showed pH of 7.32 PCO2 of 81 PO2 58. Patient was given IV steroids and breathing treatments and also antibiotics Rocephin and azithromycin single dose. Patient was placed on BiPAP and was admitted to hospitalist service. Later today patient was found to be increasingly somnolent despite BiPAP. I am also told patient had been intermittently taking the BiPAP was mask off due to confusion. A repeat ABG showed a pH of 7.11 PCO2 128 and PO2 93. Due to acute worsening of hypercapnic respiratory failure and CO2 narcosis critical care was consulted. I evaluated the patient in the ED. He appears somnolent and confused I explained to him that at this point he has failed BiPAP, and will need endotracheal intubation and mechanical ventilation. I spoke on the phone with his brother Dom per his request. After this I intubated and placed him on mechanical ventilation. Patient will be continued on IV steroids and breathing treatments. Antibiotics cefepime and azithromycin started. 08/09: No overnight events, patient is currently tolerating pressure support trial without difficulty. Objective Vital Signs / I&O: Vital Signs 08/08/18 10:48 08/08/18 10:51 08/08/18 10:53 Temperature Pulse Rate 98 H 101 H Respiratory Rate 16 16 Blood Pressure 197/99 H 198/114 H Pulse Oximetry 96 100 08/08/18 10:57 08/08/18 10:59 08/08/18 11:02 Temperature Pulse Rate 93 H 91 H 91 H Respiratory Rate 16 16 16 Blood Pressure 214/103 H 198/86 H 170/79 H Pulse Oximetry 100 100 100 08/08/18 11:08 08/08/18 11:24 08/08/18 11:35 Temperature Pulse Rate 84 76 71 Respiratory Rate 16 16 15 Blood Pressure 157/78 H 161/82 H 141/77 H Pulse Oximetry 100 95 96 08/08/18 12:32 08/08/18 12:46 08/08/18 13:07 Temperature Pulse Rate 45 L 45 L Respiratory Rate 16 17 16 Blood Pressure 149/83 H Pulse Oximetry 97 08/08/18 14:20 08/08/18 15:21 08/08/18 16:00 Temperature 97.6 F Pulse Rate 46 L 44 L 45 L Respiratory Rate 17 16 16 Blood Pressure 181/56 H Pulse Oximetry 99 100 98 08/08/18 16:01 08/08/18 16:36 08/08/18 17:00 Temperature Pulse Rate 45 L 42 L Respiratory Rate 16 16 16 Blood Pressure 183/81 H Pulse Oximetry 98 98 96 08/08/18 17:01 08/08/18 18:00 08/08/18 18:01 Temperature Pulse Rate 42 L 40 L 40 L Respiratory Rate 16 20 16 Blood Pressure 157/67 H 174/78 H Pulse Oximetry 97 99 100 08/08/18 19:00 08/08/18 19:01 08/08/18 20:00 Temperature 96.6 F L Pulse Rate 40 L 40 L 39 L Respiratory Rate 16 16 16 Blood Pressure 161/70 H Pulse Oximetry 100 100 100 08/08/18 20:01 08/08/18 20:10 08/08/18 20:20 Temperature Pulse Rate 39 L Respiratory Rate 16 16 16 Blood Pressure 166/74 H Pulse Oximetry 100 100 08/08/18 21:00 08/08/18 21:01 08/08/18 22:00 Temperature Pulse Rate 40 L 41 L 40 L Respiratory Rate 16 16 16 Blood Pressure 161/76 H Pulse Oximetry 99 99 100 08/08/18 22:01 08/08/18 23:00 08/08/18 23:01 Temperature Pulse Rate 40 L 40 L 39 L Respiratory Rate 16 17 20 Blood Pressure 166/73 H 157/69 H Pulse Oximetry 100 99 99 08/09/18 00:00 08/09/18 00:01 08/09/18 00:27 Temperature 96.9 F L Pulse Rate 39 L 39 L Respiratory Rate 16 17 16 Blood Pressure 163/67 H Pulse Oximetry 100 100 08/09/18 00:28 08/09/18 01:00 08/09/18 01:01 Temperature Pulse Rate 43 L 43 L Respiratory Rate 16 16 16 Blood Pressure 155/69 H Pulse Oximetry 100 100 100 08/09/18 02:00 08/09/18 02:01 08/09/18 03:00 Temperature Pulse Rate 41 L 40 L 43 L Respiratory Rate 16 16 19 Blood Pressure 133/62 Pulse Oximetry 100 100 100 08/09/18 03:01 08/09/18 04:00 08/09/18 04:01 Temperature Pulse Rate 41 L 72 68 Respiratory Rate 17 25 H 27 H Blood Pressure 151/65 H 147/67 H Pulse Oximetry 100 97 100 08/09/18 04:34 08/09/18 05:00 08/09/18 05:01 Temperature Pulse Rate 81 47 L 48 L Respiratory Rate 16 16 16 Blood Pressure 112/56 L Pulse Oximetry 100 100 100 08/09/18 06:00 08/09/18 06:01 08/09/18 07:00 Temperature Pulse Rate 42 L 43 L 40 L Respiratory Rate 16 16 16 Blood Pressure 110/55 L Pulse Oximetry 100 100 100 08/09/18 07:19 08/09/18 08:00 08/09/18 08:01 Temperature 98.9 F Pulse Rate 39 L 41 L 42 L Respiratory Rate 16 16 16 Blood Pressure 123/59 L 131/62 Pulse Oximetry 100 100 100 08/09/18 08:23 08/09/18 08:24 Temperature Pulse Rate 60 Respiratory Rate 17 17 Blood Pressure Pulse Oximetry 98 Intake & Output 08/08/18 08/09/18 08/09/18 18:59 06:59 18:59 Intake Total 145 / 145 500 / 500 Output Total 400 / 400 600 / 600 Balance -255 / -255 -100 / -100 Weight 150.5 kg 156.5 kg Intake: IV 145 / 145 500 / 500 Diprivan 1000 mg/100 ml Inj 1, 45 / 45 000 mg In 100 ml @ 0 mls/hr . ROUTE .[facility] Rx#:[id number] Versed Inj 50 mg In 50 ml @ 2 50 / 50 MG/HR 2 mls/hr IV.CONT TITRATE PRN Rx#:[id number] Azithromycin Inj 500 MG In NS 250 / 250 Inj 250 ML @ 250 mls/hr IV.SIG Q24H [facility] Rx#:[id number] Maxipime Inj 2,000 MG In NS Inj 100 / 100 200 / 200 100 ML @ 200 mls/hr IV.SIG Q8H [facility] Rx#:[id number] Output: Urine Amount (Catheter) 400 / 400 600 / 600 Indwelling Urethral Catheter 400 / 400 600 / 600 Other: Weight On Admission 150.5 kg Result Diagrams: 08/09/18 04:20 08/09/18 04:20 Objective Remarks: GEN: Intubated, no acute distress HEENT: NCAT NECK: Trachea midline CARDIO: Bab[place] to 50s, regular PULM: Breath sounds present bilaterally, diminished at bases ABD/ GI: Obese, soft, non-tender MSK/ EXT: 1-2+ peripheral edema bilaterally SKIN: No rashes NEURO: GCS 10T ([id number]) PSYCH: Unable to assess Assessment and Plan - Assessment and Plan Plan: NEURO: Acute metabolic encephalopathy CO2 narcosis -Altered mental status secondary to hypercapnia and CO2 narcosis -Propofol and fentanyl for sedation and ventilator synchrony postintubation -Start daily sedation vacation today as tolerated -Continue home meds Depakote and gabapentin RESP: Acute hypercapnic and hypoxemic respiratory failure Acute COPD exacerbation COPD on 2 L nasal cannula Obstructive sleep apnea -PRVC/AC, Ventilator bundle, pressure support trials as tolerated -DuoNeb every 4 hours scheduled and every 2 hours as needed -Continue IV Solu-Medrol 60 mg every 6 hours. -Budesonide twice daily inhaled -Antibiotics with cefepime and azithromycin, check sputum culture CV: History of coronary artery disease History of CABG AICD in place -Normal saline IV fluids 75 mL per hour, hold Lasix for now -Continue aspirin and clonidine, hold amio as patient has been bradycardic overnight -IV hydralazine as needed for SBP more than 160 GI: Morbid obesity -N.p.o., IV famotidine -Start tube feeds today : Acute on chronic kidney disease -Monitor renal function closely. Continue Aparicio catheter. -IV hydration as above, hold Lasix ID: Probable left lower lobe pneumonia -Antibiotics with cefepime and azithromycin -Follow-up on sputum cultures HEME: -Monitor CBC, coags ENDO: Type 2 diabetes with hyperglycemia -Electrolyte replacement per protocol -Sliding scale insulin PROPH: -Bilateral lower extremity SCDs. SQH/famotidine LINES: -Utilize peripheral IVs, right IJ central line placed 08/08/2018 Counseling/ Coordination of Care: This patient is critically ill with impairment of one or more vital organ systems with a high probability of imminent or life-threatening deterioration. High-complexity medical decision making was required to support vital organ function and/ or prevent deterioration in the patient's condition. Total critical care time spent is 55 minutes giving full attention to this patient. This includes examining the patient, gathering history from someone other than the patient (i.e. chart review), discussing the patient's care with other providers, managing the patient's blood pressure and ventilator settings, ordering and interpreting radiologic studies, ordering and interpreting laboratory values, managing the patient's sedation requirements, re-evaluation at frequent intervals, and documentation. Amount of time is separate from teaching, counseling the patient and/or family, and exclusive of procedures. To help prompt me to consider important information that might be impacting today's encounter and assessment, information from prior notes written by myself or my colleagues may have been "brought forward" into today's note. My signature on this note, however, is an attestation that I personally performed the exam, history, and/or decision-making noted today, and, unless otherwise indicated, the interactions with patient, family, and staff as well as the review of records all occurred today. I also attest that the listed assessment and stated plan reflect my best clinical judgment today based on the combination of historical information, prior notes, and today's exam/ interactions. Code Status: Full
[2018-08-09 09:55] LABS: ABG Base Excess 7.6 mmol/L (-2-2); ABG PCO2 48 mmHg (38-42); ABG PO2 105 mmHG (61-120)
--- NOTE | 2018-08-09 15:25 | P.DIET ---
Nutritional Evaluation Type of nutrition evaluation: initial Nutrition consult regarding: Tube Feeding Screening comments: TF review Subjective Subjective Comments: SCCM and ASPEN guidelines Objective - Diagnosis COPD exacerbation, dizziness - Objective Body Mass Index: 61.1 % IBW: 278 (IBW = 124lb) Body Weight Used for Calculations: IBW, Actual Energy Needs - Lower Range (kCal/kg): 11 (actual body wt: 156.5kg) Energy Needs - Upper Range (kCal/kg): 14 Lower Limit kCal/kg (kCals): 1,722 Upper Limit kCal/kg (kCals): 2,191 Lower Limit Protein Factor (Grams per Kg): 2.0 (IBW) Upper Limit Protein Factor (Grams per Kg): 2.5 Lower Protein Needs (Protein): 113 Upper Protein Needs (Protein): 141 Dietitian Reviewed in Medical Record: Current diet, Curent medications, Intake & Output, Labs, Medical history, Tube feeding Diet Order: NPO TF Objective Comments: PMH: bipolar, CKD stage III, CHF, COPD, CAD, DM, CVA, gout, HTN, s/p AICD, heart bypass Labs: BUN 26, Cr 1.48, GFR 49, POC glucose 248, random glucose 231, Ca+ 8.3 Assessment Assessment: Pt currently receiving Jevity 1.5 @ 55mL/hr per MD. RD to recommend Glucerna 1.5 @ 60mL/hr to provide 2160 kcal, 119g of protein, and 1093 mL of free water to best meet pts nutritional needs. Continue to monitor TF tolerance and glucose labs. Labs reviewed, dietitian following. Recommendations: 1. RD to recommend Glucerna 1.5 @ 60mL/hr to best meet pts nutritional needs 2. Continue to monitor TF tolerance and glucose labs 3. Dietitian following Dietitian to Monitor: Lab values, Glucose level, Intake & Output, Diet tolerance , Tube feeding tolerance, Medical course
--- NOTE | 2018-08-09 20:33 | ECG ---
Date Performed: 08/08/2018 Time Performed: 18:08:36 PTAGE: 57 years EKG: VENTRICULAR PACING IN PRIOR TRACING, DEMAND VENTRICULAR PACING IS SEEN PREVIOUS TRACING : 08/08/2018 05.07 DOCTOR: Steve Canales Interpretating Date/Time 08/09/2018 20:31:39
[2018-08-10] MEDS: Insulin NovoLOG Aspart Correctional Sugar Inj SQ SCH ×6 (00:41→21:25)
[2018-08-10] MEDS: Azithromycin Inj 500 MG in Sodium Chlor 0.9% Inj 250 ML IV.SIG SCH (00:42)
[2018-08-10] MEDS: Oral Hygiene Kit OROPHARYNG SCH ×4 (00:43→17:19)
[2018-08-10] MEDS: Artificial Tears Opth Drops 15 ML Bottle EACH EYE SCH ×3 (00:43→17:20)
[2018-08-10] MEDS: MethylPREDNISolone Sod Succinate Inj 125 MG/2 ML Vial IV.PUSH SCH ×4 (03:35→21:24)
[2018-08-10] MEDS: Heparin - SQ 10,000 UNITS/ML Vial SQ SCH ×3 (03:35→21:24)
[2018-08-10] MEDS: Sod Chloride 0.9% Inj 1,000 ML IV.CONT SCH (03:36)
[2018-08-10] MEDS: Midazolam 50 MG/50 ML Inj 50 MG/50 ML BAG IV.CONT PRN (03:37)
[2018-08-10 04:08] LABS: Hematocrit 33.6 % (39.0-51.0); Hemoglobin 10.7 gm/dL (13.0-17.0); Mean Corpuscular HGB Conc 31.7 % (32.0-36.0); Mean Corpuscular Hemoglobin 27.4 pg (27.0-34.0); Mean Corpuscular Volume 86.3 fL (80.0-100.0); Mean Platelet Volume 8.2 fL (7.0-11.0); Platelet Count 214 th/mm3 (150-450); Red Cell Distribution Width 17.1 % (11.6-17.2); White Blood Count 8.2 th/mm3 (4.0-11.0)
[2018-08-10 04:19] LABS: Alanine Aminotransferase 16 U/L (12-78); Albumin 2.6 g/dL (3.4-5.0); Anion Gap 7 meq/L (5-15); Aspartate Aminotransferase 15 U/L (15-37); Blood Urea Nitrogen 34 mg/dL (7-18); Calcium 7.9 mg/dL (8.5-10.1); Carbon Dioxide 32.6 meq/L (21.0-32.0); Chloride 100 meq/L (98-107); Glomerular Filtration Rate 49 mL/min (>89); Glucose,Random 292 mg/dL (74-106); Magnesium 2.4 mg/dL (1.5-2.5); Potassium 3.8 meq/L (3.5-5.1); Sodium 140 meq/L (136-145)
[2018-08-10 04:22] LABS: Alkaline Phosphatase 79 U/L (45-117); Total Protein 6.6 g/dL (6.4-8.2)
[2018-08-10 07:34] LABS: Lymphocytes 3 % (9-44); Metamyelocytes 1 % (0-1)
[2018-08-10 07:35] LABS: Platelet Estimate Normal (Normal); Platelet Morphology Normal (Normal); RBC Morphology Normal (Normal)
--- NOTE | 2018-08-10 08:03 | P.PNCC ---
Subjective Subjective Remarks/Hospital Course: Patient is 57-year-old male with a past medical history significant for COPD on 2 L nasal cannula, CAD status post CABG, cardiomyopathy and congestive heart failure, AICD, TANA, hypertension, hyperlipidemia, gout, chronic kidney disease stage III, diabetes mellitus, history of CVA, bipolar disorder, super morbid obesity, depression and anxiety presents to the emergency department for the evaluation of shortness of breath. This was associated with chest pressure nausea and lightheadedness. Chest x-ray in the emergency department showed left lower lobe infiltrate versus atelectasis. Initial ABG showed pH of 7.32 PCO2 of 81 PO2 58. Patient was given IV steroids and breathing treatments and also antibiotics Rocephin and azithromycin single dose. Patient was placed on BiPAP and was admitted to hospitalist service. Later today patient was found to be increasingly somnolent despite BiPAP. I am also told patient had been intermittently taking the BiPAP was mask off due to confusion. A repeat ABG showed a pH of 7.11 PCO2 128 and PO2 93. Due to acute worsening of hypercapnic respiratory failure and CO2 narcosis critical care was consulted. I evaluated the patient in the ED. He appears somnolent and confused I explained to him that at this point he has failed BiPAP, and will need endotracheal intubation and mechanical ventilation. I spoke on the phone with his brother Dom per his request. After this I intubated and placed him on mechanical ventilation. Patient will be continued on IV steroids and breathing treatments. Antibiotics cefepime and azithromycin started. 08/09: No overnight events, patient is currently tolerating pressure support trial without difficulty. 08/10: Patient awake and alert this morning, tolerated pressure support throughout the day yesterday and this morning, follows commands, will extubate. Objective Vital Signs / I&O: Vital Signs 08/09/18 08:00 08/09/18 08:01 08/09/18 08:23 Temperature 98.9 F Pulse Rate 41 L 42 L Respiratory Rate 16 16 17 Blood Pressure 131/62 Pulse Oximetry 100 100 98 08/09/18 08:24 08/09/18 09:00 08/09/18 09:01 Temperature Pulse Rate 60 47 L 53 L Respiratory Rate 17 17 16 Blood Pressure 113/54 L Pulse Oximetry 100 100 08/09/18 10:00 08/09/18 10:01 08/09/18 11:00 Temperature Pulse Rate 48 L 46 L 67 Respiratory Rate 20 19 18 Blood Pressure 132/59 L Pulse Oximetry 08/09/18 11:01 08/09/18 11:15 08/09/18 12:00 Temperature 97.3 F L Pulse Rate 68 70 92 H Respiratory Rate 18 20 25 H Blood Pressure 121/58 L 125/64 Pulse Oximetry 100 100 98 08/09/18 13:00 08/09/18 13:01 08/09/18 14:00 Temperature Pulse Rate 71 72 68 Respiratory Rate 22 22 21 Blood Pressure 121/55 L Pulse Oximetry 99 100 99 08/09/18 14:01 08/09/18 15:00 08/09/18 15:28 Temperature Pulse Rate 67 55 L 58 L Respiratory Rate 19 16 15 Blood Pressure 87/51 L 93/51 L Pulse Oximetry 100 99 99 08/09/18 16:00 08/09/18 17:00 08/09/18 17:01 Temperature 98 F Pulse Rate 56 L 63 53 L Respiratory Rate 21 17 18 Blood Pressure 95/54 L 119/57 L Pulse Oximetry 99 100 100 08/09/18 18:00 08/09/18 19:00 08/09/18 19:01 Temperature Pulse Rate 64 56 L 57 L Respiratory Rate 17 16 16 Blood Pressure 134/60 110/57 L Pulse Oximetry 100 99 99 08/09/18 20:00 08/09/18 20:01 08/09/18 20:20 Temperature 98.1 F Pulse Rate 64 61 64 Respiratory Rate 18 16 16 Blood Pressure 129/59 L Pulse Oximetry 100 100 100 08/09/18 21:00 08/09/18 22:00 08/09/18 22:01 Temperature Pulse Rate 72 58 L 57 L Respiratory Rate 17 16 16 Blood Pressure 142/71 H 111/56 L Pulse Oximetry 100 100 100 08/09/18 23:00 08/10/18 00:00 08/10/18 00:01 Temperature Pulse Rate 73 55 L 53 L Respiratory Rate 18 16 16 Blood Pressure 119/62 142/66 H Pulse Oximetry 100 100 100 08/10/18 00:17 08/10/18 01:00 08/10/18 02:00 Temperature Pulse Rate 63 77 95 H Respiratory Rate 16 18 52 H Blood Pressure 138/65 Pulse Oximetry 100 100 08/10/18 02:01 08/10/18 03:00 08/10/18 03:01 Temperature Pulse Rate 95 H 80 78 Respiratory Rate 103 H 17 17 Blood Pressure 142/106 H 152/72 H Pulse Oximetry 100 100 100 08/10/18 03:23 08/10/18 04:00 08/10/18 04:01 Temperature Pulse Rate 69 61 62 Respiratory Rate 17 14 15 Blood Pressure 121/59 L Pulse Oximetry 100 100 97 08/10/18 05:00 08/10/18 05:01 08/10/18 06:00 Temperature Pulse Rate 60 61 54 L Respiratory Rate 16 16 16 Blood Pressure 99/54 L Pulse Oximetry 99 99 98 08/10/18 06:01 Temperature Pulse Rate 54 L Respiratory Rate 16 Blood Pressure 127/61 Pulse Oximetry 99 Intake & Output 08/09/18 08/10/18 08/10/18 18:59 06:59 18:59 Intake Total 402 / 402 2062 / 2062 Output Total 400 / 400 525 / 525 Balance 2 / 2 1537 / 1537 Weight 162.5 kg Intake: IV 150 / 150 1550 / 1550 Versed Inj 50 mg In 50 ml @ 2 50 / 50 100 / 100 MG/HR 2 mls/hr IV.CONT TITRATE PRN Rx#:[id number] NS Inj 1,000 ML @ 75 mls/hr IV. 1000 / 1000 CONT .[id number] [facility] Rx#:[id number] Azithromycin Inj 500 MG In NS 250 / 250 Inj 250 ML @ 250 mls/hr IV.SIG Q24H [facility] Rx#:[id number] Maxipime Inj 2,000 MG In NS Inj 100 / 100 200 / 200 100 ML @ 200 mls/hr IV.SIG Q8H [facility] Rx#:[id number] Tube Feeding 72 / 72 512 / 512 Tube Irrigant 180 / 180 Output: Urine Amount (Catheter) 300 / 300 525 / 525 Indwelling Urethral Catheter 300 / 300 525 / 525 Gastric Drainage 100 / 100 Orogastric Tube 100 / 100 Other: # Bowel Movements 0 0 Result Diagrams: 08/10/18 03:32 08/10/18 03:32 Objective Remarks: GEN: Intubated, no acute distress HEENT: NCAT NECK: Trachea midline CARDIO: Regular rate and rhythm PULM: Breath sounds present bilaterally, diminished at bases ABD/ GI: Obese, soft, non-tender MSK/ EXT: 1-2+ peripheral edema bilaterally SKIN: No rashes NEURO: GCS 10T (E4VTM6), RASS +1 PSYCH: Appears calm Assessment and Plan - Assessment and Plan Plan: NEURO: Acute metabolic encephalopathy CO2 narcosis -Altered mental status secondary to hypercapnia and CO2 narcosis -Sedation now off, RASS +1, awake and follows commands -Continue home meds Depakote and gabapentin RESP: Acute hypercapnic and hypoxemic respiratory failure Acute COPD exacerbation COPD on 2 L nasal cannula Obstructive sleep apnea -Wean to extubate -DuoNeb every 4 hours scheduled and every 2 hours as needed -Continue IV Solu-Medrol 60 mg every 6 hours, can wean tomorrow if stable -Budesonide twice daily inhaled -Antibiotics with cefepime and azithromycin, check sputum culture CV: History of coronary artery disease History of CABG AICD in place -D/C IV fluids, continue home dose of lasix -Continue aspirin, clonidine, amio -IV hydralazine as needed for SBP more than 160 GI: Morbid obesity -N.p.o., IV famotidine -Start diet if passes bedside dysphagia screening post-extubation : Acute on chronic kidney disease -Monitor renal function closely. D/C Aparicio catheter. -D/C IVF -BUN/ creat stable ID: Probable left lower lobe pneumonia -Antibiotics with cefepime and azithromycin -Follow-up on sputum cultures HEME: -Monitor CBC, coags ENDO: Type 2 diabetes with hyperglycemia -Electrolyte replacement per protocol -Sliding scale insulin PROPH: -Bilateral lower extremity SCDs. SQH/famotidine LINES: -Utilize peripheral IVs, D/C right IJ central line placed 08/08/2018 Counseling/ Coordination of Care: This patient is critically ill with impairment of one or more vital organ systems with a high probability of imminent or life-threatening deterioration. High-complexity medical decision making was required to support vital organ function and/ or prevent deterioration in the patient's condition. Total critical care time spent is 50 minutes giving full attention to this patient. This includes examining the patient, gathering history from someone other than the patient (i.e. chart review), discussing the patient's care with other providers, managing the patient's blood pressure and ventilator settings, ordering and interpreting radiologic studies, ordering and interpreting laboratory values, managing the patient's sedation requirements, re-evaluation at frequent intervals, and documentation. Amount of time is separate from teaching, counseling the patient and/or family, and exclusive of procedures. To help prompt me to consider important information that might be impacting today's encounter and assessment, information from prior notes written by myself or my colleagues may have been "brought forward" into today's note. My signature on this note, however, is an attestation that I personally performed the exam, history, and/or decision-making noted today, and, unless otherwise indicated, the interactions with patient, family, and staff as well as the review of records all occurred today. I also attest that the listed assessment and stated plan reflect my best clinical judgment today based on the combination of historical information, prior notes, and today's exam/ interactions. Code Status: Full
[2018-08-10] MEDS: Allopurinol 100 MG Tablet PO SCH (08:05)
[2018-08-10] MEDS: Furosemide 20 MG Tablet PO SCH (08:05)
[2018-08-10] MEDS: Aspirin 325 MG Tablet PO SCH (08:05)
[2018-08-10] MEDS: Sertraline 50 MG Tablet PO SCH ×2 (08:06→21:25)
[2018-08-10] MEDS: Famotidine PF Inj 20 MG/2 ML Vial IV.PUSH SCH ×2 (08:06→21:24)
[2018-08-10] MEDS: Gabapentin 100 MG Capsule PO SCH ×3 (08:08→17:19)
[2018-08-10] MEDS: Chlorhexidine 0.12% Oral Kit 15 ML UDC OROPHARYNG SCH ×2 (08:08→21:26)
[2018-08-10] MEDS: Divalproex 500 MG DR Tablet PO SCH ×2 (12:44→21:25)
[2018-08-10] MEDS: Senna/Docusate Sodium 8.6/50 MG Tablet PO SCH ×2 (13:19→21:25)
[2018-08-10] MEDS: Amiodarone 200 MG Tablet PO SCH ×2 (13:19→21:25)
[2018-08-11] MEDS: Azithromycin Inj 500 MG in Sodium Chlor 0.9% Inj 250 ML IV.SIG SCH ×2 (00:39→23:25)
[2018-08-11] MEDS: Insulin NovoLOG Aspart Correctional Sugar Inj SQ SCH ×7 (00:39→23:27)
[2018-08-11] MEDS: Oral Hygiene Kit OROPHARYNG SCH ×4 (00:40→16:13)
[2018-08-11] MEDS: Artificial Tears Opth Drops 15 ML Bottle EACH EYE SCH ×3 (00:41→16:13)
[2018-08-11] MEDS: MethylPREDNISolone Sod Succinate Inj 125 MG/2 ML Vial IV.PUSH SCH ×4 (03:41→21:10)
[2018-08-11] MEDS: Heparin - SQ 10,000 UNITS/ML Vial SQ SCH ×3 (03:42→21:10)
[2018-08-11 04:15] LABS: Hematocrit 33.6 % (39.0-51.0); Hemoglobin 10.5 gm/dL (13.0-17.0); Mean Corpuscular HGB Conc 31.2 % (32.0-36.0); Mean Corpuscular Hemoglobin 27.3 pg (27.0-34.0); Mean Corpuscular Volume 87.3 fL (80.0-100.0); Mean Platelet Volume 8.3 fL (7.0-11.0); Platelet Count 206 th/mm3 (150-450); Red Blood Count 3.85 mil/mm3 (4.50-5.90); Red Cell Distribution Width 16.9 % (11.6-17.2); White Blood Count 8.2 th/mm3 (4.0-11.0)
[2018-08-11 04:42] LABS: Alanine Aminotransferase 16 U/L (12-78); Albumin 2.8 g/dL (3.4-5.0); Alkaline Phosphatase 78 U/L (45-117); Anion Gap 5 meq/L (5-15); Aspartate Aminotransferase 11 U/L (15-37); Blood Urea Nitrogen 37 mg/dL (7-18); Calcium 7.9 mg/dL (8.5-10.1); Carbon Dioxide 33.7 meq/L (21.0-32.0); Chloride 104 meq/L (98-107); Glomerular Filtration Rate 42 mL/min (>89); Glucose,Random 287 mg/dL (74-106); Magnesium 2.6 mg/dL (1.5-2.5); Potassium 4.7 meq/L (3.5-5.1); Sodium 143 meq/L (136-145); Total Protein 6.9 g/dL (6.4-8.2)
[2018-08-11 06:26] LABS: Lymphocytes 3 % (9-44); Monocytes 1 % (0-8); Platelet Estimate Normal (Normal); Platelet Morphology Normal (Normal)
[2018-08-11] MEDS ORDERED: Sodium Chloride 0.9% 2 ML Flush PRN IV.FLUSH (08:46)
[2018-08-11] MEDS: Chlorhexidine 0.12% Oral Kit 15 ML UDC OROPHARYNG SCH ×2 (10:08→21:11)
[2018-08-11] MEDS: Sertraline 50 MG Tablet PO SCH ×2 (10:36→21:09)
[2018-08-11] MEDS: Aspirin 325 MG Tablet PO SCH (10:36)
[2018-08-11] MEDS: Furosemide 20 MG Tablet PO SCH (10:37)
[2018-08-11] MEDS: Allopurinol 100 MG Tablet PO SCH (10:38)
[2018-08-11] MEDS: Amiodarone 200 MG Tablet PO SCH ×2 (10:38→21:11)
[2018-08-11] MEDS: Sodium Chloride 0.9% 2 ML Flush BID IV.FLUSH SCH ×2 (10:38→21:11)
[2018-08-11] MEDS: Famotidine PF Inj 20 MG/2 ML Vial IV.PUSH SCH ×2 (10:38→21:10)
[2018-08-11] MEDS: Gabapentin 100 MG Capsule PO SCH ×3 (10:38→20:10)
[2018-08-11] MEDS: Senna/Docusate Sodium 8.6/50 MG Tablet PO SCH ×2 (10:39→21:10)
[2018-08-11] MEDS: Divalproex 500 MG DR Tablet PO SCH ×2 (11:02→21:11)
--- NOTE | 2018-08-11 13:38 | P.PN ---
Subjective Interval history: appraisal specialist notes: Patient is 57-year-old male with a past medical history significant for COPD on 2 L nasal cannula, CAD status post CABG, cardiomyopathy and congestive heart failure, AICD, TANA, hypertension, hyperlipidemia, gout, chronic kidney disease stage III, diabetes mellitus, history of CVA, bipolar disorder, super morbid obesity, depression and anxiety presents to the emergency department for the evaluation of shortness of breath. This was associated with chest pressure nausea and lightheadedness. Chest x-ray in the emergency department showed left lower lobe infiltrate versus atelectasis. Initial ABG showed pH of 7.32 PCO2 of 81 PO2 58. Patient was given IV steroids and breathing treatments and also antibiotics Rocephin and azithromycin single dose. Patient was placed on BiPAP and was admitted to hospitalist service. Later today patient was found to be increasingly somnolent despite BiPAP. I am also told patient had been intermittently taking the BiPAP was mask off due to confusion. A repeat ABG showed a pH of 7.11 PCO2 128 and PO2 93. Due to acute worsening of hypercapnic respiratory failure and CO2 narcosis critical care was consulted. I evaluated the patient in the ED. He appears somnolent and confused I explained to him that at this point he has failed BiPAP, and will need endotracheal intubation and mechanical ventilation. I spoke on the phone with his brother Dom per his request. After this I intubated and placed him on mechanical ventilation. Patient will be continued on IV steroids and breathing treatments. Antibiotics cefepime and azithromycin started. 08/09: No overnight events, patient is currently tolerating pressure support trial without difficulty. 08/10: Patient awake and alert this morning, tolerated pressure support throughout the day yesterday and this morning, follows commands, will extubate. Hospitalist Notes: 08/11: Stable in his bedroom discussed with nurse, consulted parts specialist seen by Doctor Rodo Rodo has Hypoxic and Hypercarbic respiratory failure, improving, recommended BiPAP therapy while sleeping, will need Polysomnography as outpatient Bronchodilator, Mucolytic and incentive spirometry. No nausea, vomit or diarrhea. Physical Exam Vital signs: Vital Signs 08/10/18 14:00 08/10/18 14:01 08/10/18 15:00 Temperature Pulse Rate 63 62 70 Respiratory Rate 14 13 14 Blood Pressure 129/61 Pulse Oximetry 100 100 100 08/10/18 15:01 08/10/18 15:05 08/10/18 16:00 Temperature Pulse Rate 69 82 106 H Respiratory Rate 14 20 23 Blood Pressure 145/69 H Pulse Oximetry 100 41 L 08/10/18 16:21 08/10/18 17:00 08/10/18 17:19 Temperature Pulse Rate 104 H 84 89 Respiratory Rate 24 15 19 Blood Pressure 144/74 H 150/70 H Pulse Oximetry 74 L 99 97 08/10/18 18:00 08/10/18 19:00 08/10/18 19:36 Temperature 98.2 F Pulse Rate 79 111 H 93 H Respiratory Rate 30 H 23 20 Blood Pressure 136/61 133/76 Pulse Oximetry 98 100 95 08/10/18 20:00 08/10/18 21:00 08/10/18 22:00 Temperature 98.2 F 98.2 F 98.2 F Pulse Rate 88 77 74 Respiratory Rate 24 16 16 Blood Pressure 159/88 H 141/68 H 141/68 H Pulse Oximetry 96 100 98 08/10/18 23:00 08/11/18 00:00 08/11/18 01:00 Temperature 98.2 F 97.4 F L 97.4 F L Pulse Rate 75 90 91 H Respiratory Rate 14 28 H 16 Blood Pressure 138/73 161/72 H 138/66 Pulse Oximetry 98 95 98 08/11/18 02:00 08/11/18 03:00 08/11/18 04:00 Temperature 97.9 F 97.4 F L 97.9 F Pulse Rate 71 79 87 Respiratory Rate 14 18 20 Blood Pressure 138/66 143/67 H 162/81 H Pulse Oximetry 98 98 92 L 08/11/18 05:00 08/11/18 06:00 08/11/18 08:00 Temperature 97.9 F 97.9 F Pulse Rate 74 73 Respiratory Rate 16 16 Blood Pressure 146/74 H 142/70 H Pulse Oximetry 96 94 L 95 08/11/18 08:35 08/11/18 12:48 Temperature Pulse Rate 88 78 Respiratory Rate 23 20 Blood Pressure Pulse Oximetry Intake & Output 08/10/18 08/11/18 08/11/18 18:59 06:59 18:59 Intake Total 1510 / 1510 830 / 830 Output Total 800 / 800 650 / 650 Balance 710 / 710 180 / 180 Weight 162.5 kg Intake: IV 1150 / 1150 350 / 350 Versed Inj 50 mg In 50 ml @ 2 50 / 50 MG/HR 2 mls/hr IV.CONT TITRATE PRN Rx#:[id number] NS Inj 1,000 ML @ 75 mls/hr IV. 1000 / 1000 CONT .[id number] ANGÉLICA Rx#:[id number] Azithromycin Inj 500 MG In NS 250 / 250 Inj 250 ML @ 250 mls/hr IV.SIG Q24H ANGÉLICA Rx#:[id number] Maxipime Inj 2,000 MG In NS Inj 100 / 100 100 / 100 100 ML @ 200 mls/hr IV.SIG Q12H ANGÉLICA Rx#:[id number] Oral 360 / 360 480 / 480 Output: Urine 400 / 400 650 / 650 Urine Amount (Catheter) 400 / 400 Indwelling Urethral Catheter 400 / 400 Other: # Bowel Movements 0 Narrative: GENERAL: Obesity. No acute distress. SKIN: Warm and dry. HEAD: Atraumatic. Normocephalic. EYES: Pupils equal and round. ENT: No nasal bleeding or discharge. Edentulous NECK: Trachea midline. No JVD. CARDIOVASCULAR: Regular rate and rhythm. No murmur appreciated. Left upper chest AICD in place. RESPIRATORY: Decreased breath sounds bilateral, no wheezing or crackles. GASTROINTESTINAL: Abdomen soft, non-tender, nondistended. Hepatic and splenic unable to palpate MUSCULOSKELETAL: No obvious deformities. No clubbing, Edema 1+ - Urinary Catheter Management Indwelling Urethral Catheter Cath placed during this visit: yes, but has since been removed by the nurse Reason for continuing: Decision to DC catheter Insertion date: 08/08/18 Insertion time: 11: Removal date: 08/10/18 Removal time: 10:00 Results - Labs CBC & Chem 7: 08/12/18 04:56 08/12/18 04:56 Laboratory Results - last 24 hr 08/10/18 08/10/18 08/10/18 17:14 19:35 23:47 WBC RBC Hgb Hct MCV MCH MCHC RDW Plt Count MPV Prelim Diff (Auto) WBC Differential Seg Neuts % (Manual) Band Neuts % (Manual) Lymphocytes % (Manual) Monocytes % (Manual) Abs Neuts (Manual) Differential Comment Platelet Estimate Platelet Morphology Sodium Potassium Chloride Carbon Dioxide Anion Gap BUN Creatinine Estimated GFR POC Glucose 320 H 276 H 365 H Random Glucose Calcium Magnesium Total Bilirubin AST ALT Alkaline Phosphatase Total Protein Albumin 08/11/18 08/11/18 08/11/18 03:37 03:37 03:40 WBC 8.2 RBC 3.85 L Hgb 10.5 L Hct 33.6 L MCV 87.3 MCH 27.3 MCHC 31.2 L RDW 16.9 Plt Count 206 MPV 8.3 Prelim Diff (Auto) Manual diff required WBC Differential Manual diff final Seg Neuts % (Manual) 94 H Band Neuts % (Manual) 2 Lymphocytes % (Manual) 3 L Monocytes % (Manual) 1 Abs Neuts (Manual) 7.9 H Differential Comment . Platelet Estimate Normal Platelet Morphology Normal Sodium 143 Potassium 4.7 D Chloride 104 Carbon Dioxide 33.7 H Anion Gap 5 BUN 37 H Creatinine 1.71 H Estimated GFR 42 L POC Glucose 281 H Random Glucose 287 H Calcium 7.9 L Magnesium 2.6 H Total Bilirubin 0.2 AST 11 L ALT 16 Alkaline Phosphatase 78 Total Protein 6.9 Albumin 2.8 L 08/11/18 08/11/18 09:41 13:04 WBC RBC Hgb Hct MCV MCH MCHC RDW Plt Count MPV Prelim Diff (Auto) WBC Differential Seg Neuts % (Manual) Band Neuts % (Manual) Lymphocytes % (Manual) Monocytes % (Manual) Abs Neuts (Manual) Differential Comment Platelet Estimate Platelet Morphology Sodium Potassium Chloride Carbon Dioxide Anion Gap BUN Creatinine Estimated GFR POC Glucose 213 H 288 H Random Glucose Calcium Magnesium Total Bilirubin AST ALT Alkaline Phosphatase Total Protein Albumin Microbiology 08/08/18 15:32 Sputum - Endotracheal Gram Stain - Final 08/08/18 15:32 Sputum - Endotracheal Sputum Culture - Final S. aureus MRSA - Imaging Head CT 08/08/18 00:00 CONCLUSION: 1. Negative noncontrast head CT. . Chest X-Ray 08/08/18 11:31 CONCLUSION: Tubes and catheters in good position. Mild pulmonary vascular congestion. Assessment and Plan - Plan 1. Acute Metabolic Encephalopathy/CO2 Narcosis Continue Home medicines Depakote and Gabapentin 2. VDRF/Acute Hypercapnic and Hypoxemic respiratory failure COPD exacerbation TANA Extubated yesterday, continue Bronchodilator, Mucolytic incentive spirometry , Solu-Medrol Antibiotics Cefepime and Azithromycin. following sputum culture 08/11: consulted parts specialist seen by Doctor Rodo Koehler has Hypoxic and Hypercarbic respiratory failure, improving, recommended BiPAP therapy while sleeping, will need Polysomnography as outpatient 3. CAD status post CABG/AICD in place to continue Aspirin, Clonidine and Amiodarone 4. Morbid Obesity strongly recommended diet and exercise as outpatient 5. Acute on chronic kidney disease 6. Left lower Lobe Pneumonia on Cefepime and Azithromycin 7. DM II to continue sliding scale. PROPH: -Bilateral lower extremity SCDs. SQH/famotidine Code Status: Full code. Discussed Condition With: Patient and Nurse. Discharge Planning: Once cleared by parts specialist.
[2018-08-11 18:31] LABS: Thyroid Stimulating Hormone 0.921 uIU/mL (0.358-3.740)
--- NOTE | 2018-08-11 19:11 | MB ---
cc: Rodo Koehelr MD DATE: 08/11/2018 REASON FOR CONSULTATION: COPD, respiratory failure, probable obstructive sleep apnea, obesity hypoventilation. HISTORY OF PRESENT ILLNESS: Mr. Jackson is a 57-year-old male with known history of COPD, chronic respiratory failure on oxygen therapy, coronary artery disease, congestive heart failure, hypertension, hyperlipidemia, diabetes and had a CVA in the past, admitted with respiratory failure, shortness of breath, placed on BiPAP therapy, oxygen therapy, bronchodilator therapy. His pCO2 was as high as 128, presently alert, appears in no acute distress, on oxygen therapy by nasal cannula. PAST MEDICAL HISTORY: 1. COPD. 2. CHF. 3. Diabetes mellitus. 4. Hypertension. 5. Chronic kidney disease. 6. Coronary artery disease, post-CABG. 7. Status post CVA. 8. Gout. FAMILY HISTORY: Positive for diabetes, hypertension, heart disease. SOCIAL HISTORY: He does not smoke, does not drink. No TB, no industrial exposure. REVIEW OF SYSTEMS: A 12-point review of systems as per HPI and past history, otherwise negative. MEDICATIONS: Currently review [facility] for details. PHYSICAL EXAMINATION: GENERAL: Alert, lying in bed. VITAL SIGNS: Temperature 98, pulse 80, respiratory rate 20, blood pressure 140/70, oxygen saturation 94% on 3 liters oxygen nasal cannula. HEENT: Unremarkable. Eyes without icterus. NECK: Without adenopathy or thyroid enlargement. CHEST: Few rhonchi at bases. CARDIAC: Distant heart sounds. S1, S2 audible. ABDOMEN: Obese, lax. Bowel sounds audible. EXTREMITIES: 1+ edema. LABORATORY DATA: White count 8000, hemoglobin 10.5, hematocrit 33, platelets 206,000. Sodium 143, potassium 4.7, BUN 37, creatinine 1.7. Arterial blood gas 08/09/2018 pH 7.44, pCO2 of 48, and pO2 of 105. IMPRESSION: 1. Hypoxic and hypercarbic respiratory failure, improving. 2. Chronic obstructive pulmonary disease by history; however, the patient with no smoking history. 3. Morbid obesity. 4. Obstructive or central sleep apnea, suspect. 5. Chronic kidney disease. 6. Diabetes mellitus. 7. Hypertension. 8. Coronary artery disease, post-coronary artery bypass grafting. PLAN: The patient will be maintained on oxygen therapy, BiPAP therapy while sleeping would be appropriate. Almost certainly this patient either has obstructive or central sleep apnea. He will need polysomnographic evaluation post-discharge and appropriate therapy. Bronchodilator therapy will be maintained. The patient should be encouraged to lose weight. Indeed he is morbidly obese. We will follow his course along with you and depending on progress, proceed further. Rodo Koehler MD WWW/марина , 05:46 PM , 05:55 PM
[2018-08-12] MEDS: Oral Hygiene Kit OROPHARYNG SCH ×4 (00:48→15:05)
[2018-08-12] MEDS: Artificial Tears Opth Drops 15 ML Bottle EACH EYE SCH ×3 (03:04→17:14)
[2018-08-12] MEDS: MethylPREDNISolone Sod Succinate Inj 125 MG/2 ML Vial IV.PUSH SCH ×4 (03:05→20:17)
[2018-08-12] MEDS: Heparin - SQ 10,000 UNITS/ML Vial SQ SCH ×3 (05:48→20:16)
[2018-08-12] MEDS: Insulin NovoLOG Aspart Correctional Sugar Inj SQ SCH ×6 (06:00→23:10)
[2018-08-12 06:03] LABS: Hematocrit 33.7 % (39.0-51.0); Hemoglobin 10.4 gm/dL (13.0-17.0); Mean Corpuscular Hemoglobin 26.7 pg (27.0-34.0); Mean Corpuscular Volume 86.3 fL (80.0-100.0); Mean Platelet Volume 8.6 fL (7.0-11.0); Platelet Count 182 th/mm3 (150-450); Red Blood Count 3.91 mil/mm3 (4.50-5.90); Red Cell Distribution Width 16.5 % (11.6-17.2); White Blood Count 8.2 th/mm3 (4.0-11.0)
[2018-08-12 06:09] LABS: Albumin 2.7 g/dL (3.4-5.0); Anion Gap 7 meq/L (5-15); Aspartate Aminotransferase 11 U/L (15-37); Blood Urea Nitrogen 37 mg/dL (7-18); Calcium 8.2 mg/dL (8.5-10.1); Carbon Dioxide 32.3 meq/L (21.0-32.0); Chloride 102 meq/L (98-107); Glomerular Filtration Rate 51 mL/min (>89); Glucose,Random 213 mg/dL (74-106); Magnesium 2.5 mg/dL (1.5-2.5); Potassium 4.5 meq/L (3.5-5.1); Sodium 141 meq/L (136-145)
[2018-08-12 06:12] LABS: Alanine Aminotransferase 15 U/L (12-78); Alkaline Phosphatase 72 U/L (45-117); Total Protein 6.7 g/dL (6.4-8.2)
[2018-08-12 06:13] LABS: Mean Corpuscular HGB Conc 30.9 % (32.0-36.0)
[2018-08-12] MEDS: Aspirin 325 MG Tablet PO SCH (08:02)
[2018-08-12] MEDS: Sertraline 50 MG Tablet PO SCH ×2 (08:02→20:16)
[2018-08-12] MEDS: Allopurinol 100 MG Tablet PO SCH (08:02)
[2018-08-12] MEDS: Gabapentin 100 MG Capsule PO SCH ×3 (08:02→17:14)
[2018-08-12] MEDS: Senna/Docusate Sodium 8.6/50 MG Tablet PO SCH ×2 (08:03→20:16)
[2018-08-12] MEDS: Furosemide 20 MG Tablet PO SCH (08:03)
[2018-08-12] MEDS: Divalproex 500 MG DR Tablet PO SCH ×2 (08:03→20:20)
[2018-08-12] MEDS: Famotidine PF Inj 20 MG/2 ML Vial IV.PUSH SCH ×2 (08:03→20:17)
[2018-08-12] MEDS: Amiodarone 200 MG Tablet PO SCH ×2 (08:03→20:16)
[2018-08-12] MEDS: Sodium Chloride 0.9% 2 ML Flush BID IV.FLUSH SCH ×2 (08:04→20:17)
[2018-08-12] MEDS: Chlorhexidine 0.12% Oral Kit 15 ML UDC OROPHARYNG SCH ×2 (08:05→20:18)
[2018-08-12 09:23] LABS: Lymphocytes 6 % (9-44)
[2018-08-12 09:24] LABS: Platelet Estimate Normal (Normal); Platelet Morphology Normal (Normal)
[2018-08-12 12:04] LABS: ABG Base Excess 6.7 mmol/L (-2-2); ABG PCO2 60 mmHg (38-42); ABG PO2 87 mmHG (61-120)
--- NOTE | 2018-08-12 15:05 | P.PN ---
Subjective Interval history: alert mad Physical Exam Vital signs: Vital Signs 08/11/18 16:00 08/11/18 16:01 08/11/18 16:10 Temperature 98.1 F Pulse Rate 83 92 H 84 Respiratory Rate 20 29 H 16 Blood Pressure 168/77 H Pulse Oximetry 93 L 82 L 08/11/18 17:00 08/11/18 17:02 08/11/18 18:00 Temperature Pulse Rate 78 79 72 Respiratory Rate 24 23 18 Blood Pressure 159/80 H 147/73 H Pulse Oximetry 92 L 90 L 94 L 08/11/18 19:00 08/11/18 20:00 08/11/18 20:40 Temperature 99.3 F Pulse Rate 101 H 78 75 Respiratory Rate 26 H 18 20 Blood Pressure 155/83 H 154/71 H Pulse Oximetry 97 96 08/11/18 21:00 08/11/18 22:00 08/11/18 23:00 Temperature 98.9 F Pulse Rate 84 90 75 Respiratory Rate 18 16 15 Blood Pressure 160/70 H 157/71 H 143/63 H Pulse Oximetry 91 L 82 L 94 L 08/12/18 00:00 08/12/18 00:13 08/12/18 01:00 Temperature 98.9 F Pulse Rate 79 78 72 Respiratory Rate 20 20 16 Blood Pressure 137/63 150/69 H Pulse Oximetry 79 L 100 08/12/18 02:00 08/12/18 03:00 08/12/18 03:02 Temperature 98.9 F Pulse Rate 80 81 71 Respiratory Rate 23 35 H 17 Blood Pressure 177/78 H 170/72 H 170/72 H Pulse Oximetry 100 98 100 08/12/18 04:00 08/12/18 04:20 08/12/18 04:43 Temperature Pulse Rate 71 71 70 Respiratory Rate 16 15 21 Blood Pressure 191/81 H 137/63 Pulse Oximetry 98 98 08/12/18 05:00 08/12/18 05:09 08/12/18 05:25 Temperature Pulse Rate 69 67 70 Respiratory Rate 18 16 29 H Blood Pressure 203/98 H 202/90 H 186/78 H Pulse Oximetry 99 98 99 08/12/18 05:47 08/12/18 06:00 08/12/18 06:57 Temperature Pulse Rate 69 69 72 Respiratory Rate 24 Blood Pressure 166/77 H Pulse Oximetry 98 08/12/18 07:00 08/12/18 08:00 08/12/18 08:01 Temperature 98.5 F Pulse Rate 71 76 72 Respiratory Rate 19 17 18 Blood Pressure 157/72 H 175/84 H Pulse Oximetry 97 97 97 08/12/18 08:32 08/12/18 08:57 08/12/18 09:00 Temperature Pulse Rate 77 81 79 Respiratory Rate 28 H 16 19 Blood Pressure 176/86 H Pulse Oximetry 97 100 08/12/18 10:00 08/12/18 11:00 08/12/18 11:50 Temperature Pulse Rate 73 77 82 Respiratory Rate 24 18 21 Blood Pressure Pulse Oximetry 97 97 08/12/18 12:00 08/12/18 13:00 Temperature 98.4 F Pulse Rate 80 85 Respiratory Rate 29 H 22 Blood Pressure Pulse Oximetry 99 98 Intake & Output 08/11/18 08/12/18 08/12/18 18:59 06:59 18:59 Intake Total 500 / 500 810 / 810 Output Total 800 / 800 1200 / 1200 Balance -300 / -300 -390 / -390 Weight 162 kg Intake: IV 450 / 450 Azithromycin Inj 500 MG In NS 250 / 250 Inj 250 ML @ 250 mls/hr IV.SIG Q24H ANGÉLICA Rx#:[id number] Maxipime Inj 2,000 MG In NS Inj 200 / 200 100 ML @ 200 mls/hr IV.SIG Q12H ANGÉLICA Rx#:[id number] Oral 500 / 500 360 / 360 Output: Urine 800 / 800 1200 / 1200 Other: Date of Last Bowel Movement 08/12/18 # Bowel Movements 2 Narrative: GENERAL: Obesity. No acute distress. SKIN: Warm and dry. HEAD: Atraumatic. Normocephalic. EYES: Pupils equal and round. ENT: No nasal bleeding or discharge. Edentulous NECK: Trachea midline. No JVD. CARDIOVASCULAR: Regular rate and rhythm. No murmur appreciated. Left upper chest AICD in place. RESPIRATORY: Currently on BiPAP somnolent with poor respiratory effort, air entry markedly diminished bilaterally no wheezes or crackles GASTROINTESTINAL: Abdomen soft, non-tender, nondistended. Hepatic and splenic unable to palpate MUSCULOSKELETAL: No obvious deformities. No clubbing, Edema 1+ - Urinary Catheter Management Indwelling Urethral Catheter Cath placed during this visit: yes, but has since been removed by the nurse Reason for continuing: Decision to DC catheter Insertion date: 08/08/18 Insertion time: 11:27 Removal date: 08/10/18 Removal time: 10:00 Results - Labs CBC & Chem 7: 08/12/18 04:56 08/12/18 04:56 Laboratory Results - last 24 hr 08/11/18 08/11/18 08/11/18 03:37 03:37 16:50 WBC RBC Hgb Hct MCV MCH MCHC RDW Plt Count MPV Prelim Diff (Auto) WBC Differential Seg Neuts % (Manual) Band Neuts % (Manual) Lymphocytes % (Manual) Abs Neuts (Manual) Differential Comment Platelet Estimate Platelet Morphology Puncture Site Patient Temperature O2 Saturation ABG pH ABG pCO2 ABG pO2 ABG HCO3 ABG O2 Content ABG Base Excess ABG Methemoglobin Rolando Test Hemoglobin Carboxyhemoglobin O2 Delivery Device Liter Flow Critical Value Sodium 143 Potassium 4.7 D Chloride 104 Carbon Dioxide 33.7 H Anion Gap 5 BUN 37 H Creatinine 1.71 H Estimated GFR 42 L POC Glucose 321 H Random Glucose 287 H Calcium 7.9 L Magnesium 2.6 H Total Bilirubin 0.2 AST 11 L ALT 16 Alkaline Phosphatase 78 Total Protein 6.9 Albumin 2.8 L TSH 0.921 Cancelled 08/11/18 08/11/18 08/12/18 19:49 23:14 02:59 WBC RBC Hgb Hct MCV MCH MCHC RDW Plt Count MPV Prelim Diff (Auto) WBC Differential Seg Neuts % (Manual) Band Neuts % (Manual) Lymphocytes % (Manual) Abs Neuts (Manual) Differential Comment Platelet Estimate Platelet Morphology Puncture Site Patient Temperature O2 Saturation ABG pH ABG pCO2 ABG pO2 ABG HCO3 ABG O2 Content ABG Base Excess ABG Methemoglobin Rolando Test Hemoglobin Carboxyhemoglobin O2 Delivery Device Liter Flow Critical Value Sodium Potassium Chloride Carbon Dioxide Anion Gap BUN Creatinine Estimated GFR POC Glucose 378 H 365 H 276 H Random Glucose Calcium Magnesium Total Bilirubin AST ALT Alkaline Phosphatase Total Protein Albumin TSH 08/12/18 08/12/18 08/12/18 04:56 04:56 07:58 WBC 8.2 RBC 3.91 L Hgb 10.4 L Hct 33.7 L MCV 86.3 MCH 26.7 L MCHC 30.9 L RDW 16.5 Plt Count 182 MPV 8.6 Prelim Diff (Auto) Slide review pending WBC Differential Manual diff final Seg Neuts % (Manual) 92 H Band Neuts % (Manual) 2 Lymphocytes % (Manual) 6 L Abs Neuts (Manual) 7.7 Differential Comment . Platelet Estimate Normal Platelet Morphology Normal Puncture Site Patient Temperature O2 Saturation ABG pH ABG pCO2 ABG pO2 ABG HCO3 ABG O2 Content ABG Base Excess ABG Methemoglobin Rolando Test Hemoglobin Carboxyhemoglobin O2 Delivery Device Liter Flow Critical Value Sodium 141 Potassium 4.5 Chloride 102 Carbon Dioxide 32.3 H Anion Gap 7 BUN 37 H Creatinine 1.44 H Estimated GFR 51 L POC Glucose 200 H Random Glucose 213 H Calcium 8.2 L Magnesium 2.5 Total Bilirubin 0.3 AST 11 L ALT 15 Alkaline Phosphatase 72 Total Protein 6.7 Albumin 2.7 L TSH 08/12/18 08/12/18 11:54 12:23 WBC RBC Hgb Hct MCV MCH MCHC RDW Plt Count MPV Prelim Diff (Auto) WBC Differential Seg Neuts % (Manual) Band Neuts % (Manual) Lymphocytes % (Manual) Abs Neuts (Manual) Differential Comment Platelet Estimate Platelet Morphology Puncture Site Right radial Patient Temperature 98.6 O2 Saturation 93 ABG pH 7.35 L ABG pCO2 60 H* ABG pO2 87 ABG HCO3 32 H ABG O2 Content 14.1 ABG Base Excess 6.7 H ABG Methemoglobin 2.3 H Rolando Test Present Hemoglobin 10.7 L Carboxyhemoglobin 0.9 O2 Delivery Device Nasal cannula Liter Flow 2.00 Critical Value Yes Sodium Potassium Chloride Carbon Dioxide Anion Gap BUN Creatinine Estimated GFR POC Glucose 279 H Random Glucose Calcium Magnesium Total Bilirubin AST ALT Alkaline Phosphatase Total Protein Albumin TSH Assessment and Plan - Plan respiratory failure christine/csa suspect copd morbid obesity plan o2 as needed bronchodilators BIPAP/ SLEEP LOOSE WT INCREASE ACTIVITY
--- NOTE | 2018-08-12 15:08 | P.PN ---
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 This was associated with chest pressure nausea and lightheadedness. Chest x-ray in the emergency department showed left lower lobe infiltrate versus atelectasis. Initial ABG showed pH of 7.32 PCO2 of 81 PO2 58. Patient was given IV steroids and breathing treatments and also antibiotics Rocephin and azithromycin single dose. Patient was placed on BiPAP and was admitted to hospitalist service. Later today patient was found to be increasingly somnolent despite BiPAP. I am also told patient had been intermittently taking the BiPAP was mask off due to confusion. A repeat ABG showed a pH of 7.11 PCO2 128 and PO2 93. Due to acute worsening of hypercapnic respiratory failure and CO2 narcosis critical care was consulted. I evaluated the patient in the ED. He appears somnolent and confused I explained to him that at this point he has failed BiPAP, and will need endotracheal intubation and mechanical ventilation. I spoke on the phone with his brother Dom per his request. After this I intubated and placed him on mechanical ventilation. Patient will be continued on IV steroids and breathing treatments. Antibiotics cefepime and azithromycin started. 08/09: No overnight events, patient is currently tolerating pressure support trial without difficulty. 08/10: Patient awake and alert this morning, tolerated pressure support throughout the day yesterday and this morning, follows commands, will extubate. Hospitalist Notes: 08/11: Stable in his bedroom discussed with nurse, consulted landscaping specialist seen by Doctor Rodo Koehler has Hypoxic and Hypercarbic respiratory failure, improving, recommended BiPAP therapy while sleeping, will need Polysomnography as outpatient Bronchodilator, Mucolytic and incentive spirometry. 08/12: Seen in his bedroom, no nausea, vomit or diarrhea continue present care, will transfer to Stepdown placed a transfer order. Physical Exam Vital signs: Vital Signs 08/11/18 16:00 08/11/18 16:01 08/11/18 16:10 Temperature 98.1 F Pulse Rate 83 92 H 84 Respiratory Rate 20 29 H 16 Blood Pressure 168/77 H Pulse Oximetry 93 L 82 L 08/11/18 17:00 08/11/18 17:02 08/11/18 18:00 Temperature Pulse Rate 78 79 72 Respiratory Rate 24 23 18 Blood Pressure 159/80 H 147/73 H Pulse Oximetry 92 L 90 L 94 L 08/11/18 19:00 08/11/18 20:00 08/11/18 20:40 Temperature 99.3 F Pulse Rate 101 H 78 75 Respiratory Rate 26 H 18 20 Blood Pressure 155/83 H 154/71 H Pulse Oximetry 97 96 08/11/18 21:00 08/11/18 22:00 08/11/18 23:00 Temperature 98.9 F Pulse Rate 84 90 75 Respiratory Rate 18 16 15 Blood Pressure 160/70 H 157/71 H 143/63 H Pulse Oximetry 91 L 82 L 94 L 08/12/18 00:00 08/12/18 00:13 08/12/18 01:00 Temperature 98.9 F Pulse Rate 79 78 72 Respiratory Rate 20 20 16 Blood Pressure 137/63 150/69 H Pulse Oximetry 79 L 100 08/12/18 02:00 08/12/18 03:00 08/12/18 03:02 Temperature 98.9 F Pulse Rate 80 81 71 Respiratory Rate 23 35 H 17 Blood Pressure 177/78 H 170/72 H 170/72 H Pulse Oximetry 100 98 100 08/12/18 04:00 08/12/18 04:20 08/12/18 04:43 Temperature Pulse Rate 71 71 70 Respiratory Rate 16 15 21 Blood Pressure 191/81 H 137/63 Pulse Oximetry 98 98 08/12/18 05:00 08/12/18 05:09 08/12/18 05:25 Temperature Pulse Rate 69 67 70 Respiratory Rate 18 16 29 H Blood Pressure 203/98 H 202/90 H 186/78 H Pulse Oximetry 99 98 99 08/12/18 05:47 08/12/18 06:00 08/12/18 06:57 Temperature Pulse Rate 69 69 72 Respiratory Rate 24 Blood Pressure 166/77 H Pulse Oximetry 98 08/12/18 07:00 08/12/18 08:00 08/12/18 08:01 Temperature 98.5 F Pulse Rate 71 76 72 Respiratory Rate 19 17 18 Blood Pressure 157/72 H 175/84 H Pulse Oximetry 97 97 97 08/12/18 08:32 08/12/18 08:57 08/12/18 09:00 Temperature Pulse Rate 77 81 79 Respiratory Rate 28 H 16 19 Blood Pressure 176/86 H Pulse Oximetry 97 100 08/12/18 10:00 08/12/18 11:00 08/12/18 11:50 Temperature Pulse Rate 73 77 82 Respiratory Rate 24 18 21 Blood Pressure Pulse Oximetry 97 97 08/12/18 12:00 08/12/18 13:00 Temperature 98.4 F Pulse Rate 80 85 Respiratory Rate 29 H 22 Blood Pressure Pulse Oximetry 99 98 Intake & Output 08/11/18 08/12/18 08/12/18 18:59 06:59 18:59 Intake Total 500 / 500 810 / 810 Output Total 800 / 800 1200 / 1200 Balance -300 / -300 -390 / -390 Weight 162 kg Intake: IV 450 / 450 Azithromycin Inj 500 MG In NS 250 / 250 Inj 250 ML @ 250 mls/hr IV.SIG Q24H ANGÉLICA Rx#:[id number] Maxipime Inj 2,000 MG In NS Inj 200 / 200 100 ML @ 200 mls/hr IV.SIG Q12H ANGÉLICA Rx#:[id number] Oral 500 / 500 360 / 360 Output: Urine 800 / 800 1200 / 1200 Other: Date of Last Bowel Movement 08/12/18 # Bowel Movements 2 Narrative: GENERAL: Obesity. No acute distress. SKIN: Warm and dry. HEAD: Atraumatic. Normocephalic. EYES: Pupils equal and round. ENT: No nasal bleeding or discharge. Edentulous NECK: Trachea midline. No JVD. CARDIOVASCULAR: Regular rate and rhythm. No murmur appreciated. Left upper chest AICD in place. RESPIRATORY: Decreased breath sounds bilateral, no wheezing or crackles. GASTROINTESTINAL: Abdomen soft, non-tender, nondistended. Hepatic and splenic unable to palpate MUSCULOSKELETAL: No obvious deformities. No clubbing, Edema 1+ - Urinary Catheter Management Indwelling Urethral Catheter Cath placed during this visit: yes, but has since been removed by the nurse Reason for continuing: Decision to DC catheter Insertion date: 08/08/18 Insertion time: 11:27 Removal date: 08/10/18 Removal time: 10:00 Results - Labs CBC & Chem 7: 08/12/18 04:56 08/12/18 04:56 Laboratory Results - last 24 hr 08/11/18 08/11/18 08/11/18 03:37 03:37 16:50 WBC RBC Hgb Hct MCV MCH MCHC RDW Plt Count MPV Prelim Diff (Auto) WBC Differential Seg Neuts % (Manual) Band Neuts % (Manual) Lymphocytes % (Manual) Abs Neuts (Manual) Differential Comment Platelet Estimate Platelet Morphology Puncture Site Patient Temperature O2 Saturation ABG pH ABG pCO2 ABG pO2 ABG HCO3 ABG O2 Content ABG Base Excess ABG Methemoglobin Rolando Test Hemoglobin Carboxyhemoglobin O2 Delivery Device Liter Flow Critical Value Sodium 143 Potassium 4.7 D Chloride 104 Carbon Dioxide 33.7 H Anion Gap 5 BUN 37 H Creatinine 1.71 H Estimated GFR 42 L POC Glucose 321 H Random Glucose 287 H Calcium 7.9 L Magnesium 2.6 H Total Bilirubin 0.2 AST 11 L ALT 16 Alkaline Phosphatase 78 Total Protein 6.9 Albumin 2.8 L TSH 0.921 Cancelled 08/11/18 08/11/18 08/12/18 19:49 23:14 02:59 WBC RBC Hgb Hct MCV MCH MCHC RDW Plt Count MPV Prelim Diff (Auto) WBC Differential Seg Neuts % (Manual) Band Neuts % (Manual) Lymphocytes % (Manual) Abs Neuts (Manual) Differential Comment Platelet Estimate Platelet Morphology Puncture Site Patient Temperature O2 Saturation ABG pH ABG pCO2 ABG pO2 ABG HCO3 ABG O2 Content ABG Base Excess ABG Methemoglobin Rolando Test Hemoglobin Carboxyhemoglobin O2 Delivery Device Liter Flow Critical Value Sodium Potassium Chloride Carbon Dioxide Anion Gap BUN Creatinine Estimated GFR POC Glucose 378 H 365 H 276 H Random Glucose Calcium Magnesium Total Bilirubin AST ALT Alkaline Phosphatase Total Protein Albumin TSH 08/12/18 08/12/18 08/12/18 04:56 04:56 07:58 WBC 8.2 RBC 3.91 L Hgb 10.4 L Hct 33.7 L MCV 86.3 MCH 26.7 L MCHC 30.9 L RDW 16.5 Plt Count 182 MPV 8.6 Prelim Diff (Auto) Slide review pending WBC Differential Manual diff final Seg Neuts % (Manual) 92 H Band Neuts % (Manual) 2 Lymphocytes % (Manual) 6 L Abs Neuts (Manual) 7.7 Differential Comment . Platelet Estimate Normal Platelet Morphology Normal Puncture Site Patient Temperature O2 Saturation ABG pH ABG pCO2 ABG pO2 ABG HCO3 ABG O2 Content ABG Base Excess ABG Methemoglobin Rolando Test Hemoglobin Carboxyhemoglobin O2 Delivery Device Liter Flow Critical Value Sodium 141 Potassium 4.5 Chloride 102 Carbon Dioxide 32.3 H Anion Gap 7 BUN 37 H Creatinine 1.44 H Estimated GFR 51 L POC Glucose 200 H Random Glucose 213 H Calcium 8.2 L Magnesium 2.5 Total Bilirubin 0.3 AST 11 L ALT 15 Alkaline Phosphatase 72 Total Protein 6.7 Albumin 2.7 L TSH 08/12/18 08/12/18 11:54 12:23 WBC RBC Hgb Hct MCV MCH MCHC RDW Plt Count MPV Prelim Diff (Auto) WBC Differential Seg Neuts % (Manual) Band Neuts % (Manual) Lymphocytes % (Manual) Abs Neuts (Manual) Differential Comment Platelet Estimate Platelet Morphology Puncture Site Right radial Patient Temperature 98.6 O2 Saturation 93 ABG pH 7.35 L ABG pCO2 60 H* ABG pO2 87 ABG HCO3 32 H ABG O2 Content 14.1 ABG Base Excess 6.7 H ABG Methemoglobin 2.3 H Rolando Test Present Hemoglobin 10.7 L Carboxyhemoglobin 0.9 O2 Delivery Device Nasal cannula Liter Flow 2.00 Critical Value Yes Sodium Potassium Chloride Carbon Dioxide Anion Gap BUN Creatinine Estimated GFR POC Glucose 279 H Random Glucose Calcium Magnesium Total Bilirubin AST ALT Alkaline Phosphatase Total Protein Albumin TSH - Imaging Head CT 08/08/18 00:00 CONCLUSION: 1. Negative noncontrast head CT. . Chest X-Ray 08/08/18 11:31 CONCLUSION: Tubes and catheters in good position. Mild pulmonary vascular congestion. - Procedures Endotracheal intubation and Extubation. Assessment and Plan - Plan 1. Acute Metabolic Encephalopathy/CO2 Narcosis Continue Home medicines Depakote and Gabapentin 2. VDRF/Acute Hypercapnic and Hypoxemic respiratory failure COPD exacerbation TANA Extubated yesterday, continue Bronchodilator, Mucolytic incentive spirometry , Solu-Medrol Antibiotics Cefepime and Azithromycin. following sputum culture 08/11: consulted landscaping specialist seen by Doctor Rodo Koehler has Hypoxic and Hypercarbic respiratory failure, improving, recommended BiPAP therapy while sleeping, will need Polysomnography as outpatient 3. CAD status post CABG/AICD in place to continue Aspirin, Clonidine and Amiodarone 4. Morbid Obesity strongly recommended diet and exercise as outpatient 5. Acute on chronic kidney disease 6. Left lower Lobe Pneumonia on Cefepime and Azithromycin 7. DM II to continue sliding scale. Uncontrolled started on Levemir 10 units BID. and pre meal Insulin 5 units. 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 PROPH: -Bilateral lower extremity SCDs. SQH/famotidine Transfer to Stepdown. Code Status: Full code. Discussed Condition With: Patient and Nurse Miss Epstein. Discharge Planning: Once cleared by landscaping specialist.
[2018-08-12] MEDS: Insulin Detemir Inj 1,000 UNIT/10 ML Vial SQ SCH ×2 (15:35→20:18)
[2018-08-12] MEDS: Azithromycin Inj 500 MG in Sodium Chlor 0.9% Inj 250 ML IV.SIG SCH (23:05)
[2018-08-13] MEDS: Heparin - SQ 10,000 UNITS/ML Vial SQ SCH ×3 (03:55→20:42)
[2018-08-13] MEDS: MethylPREDNISolone Sod Succinate Inj 125 MG/2 ML Vial IV.PUSH SCH ×2 (03:56→11:32)
[2018-08-13] MEDS: Artificial Tears Opth Drops 15 ML Bottle EACH EYE SCH ×3 (03:56→17:39)
[2018-08-13] MEDS: Oral Hygiene Kit OROPHARYNG SCH ×4 (03:57→17:39)
[2018-08-13] MEDS: Insulin NovoLOG Aspart Correctional Sugar Inj SQ SCH ×6 (03:58→23:59)
[2018-08-13 06:57] LABS: Hematocrit 37.1 % (39.0-51.0); Hemoglobin 11.5 gm/dL (13.0-17.0); Mean Corpuscular Hemoglobin 26.7 pg (27.0-34.0); Mean Corpuscular Volume 86.5 fL (80.0-100.0); Mean Platelet Volume 8.8 fL (7.0-11.0); Platelet Count 192 th/mm3 (150-450); Red Blood Count 4.29 mil/mm3 (4.50-5.90); Red Cell Distribution Width 16.4 % (11.6-17.2); White Blood Count 9.4 th/mm3 (4.0-11.0)
[2018-08-13 07:03] LABS: Mean Corpuscular HGB Conc 30.9 % (32.0-36.0)
[2018-08-13 07:04] LABS: Alanine Aminotransferase 17 U/L (12-78); Albumin 2.9 g/dL (3.4-5.0); Anion Gap 7 meq/L (5-15); Aspartate Aminotransferase 10 U/L (15-37); Blood Urea Nitrogen 35 mg/dL (7-18); Calcium 7.9 mg/dL (8.5-10.1); Carbon Dioxide 34.9 meq/L (21.0-32.0); Chloride 99 meq/L (98-107); Glomerular Filtration Rate 57 mL/min (>89); Glucose,Random 129 mg/dL (74-106); Magnesium 2.8 mg/dL (1.5-2.5); Potassium 4.4 meq/L (3.5-5.1); Sodium 141 meq/L (136-145)
[2018-08-13 07:06] LABS: Alkaline Phosphatase 71 U/L (45-117); Total Protein 6.9 g/dL (6.4-8.2)
--- NOTE | 2018-08-13 08:13 | P.PN ---
Subjective Interval history: family law specialist notes: Patient is 57-year-old male with a past medical history significant for COPD on 2 L nasal cannula, CAD status post CABG, cardiomyopathy and congestive heart failure, AICD, TANA, hypertension, hyperlipidemia, gout, chronic kidney disease stage III, diabetes mellitus, history of CVA, bipolar disorder, super morbid obesity, depression and anxiety presents to the emergency department for the evaluation of shortness of breath. This was associated with chest pressure nausea and lightheadedness. Chest x-ray in the emergency department showed left lower lobe infiltrate versus atelectasis. Initial ABG showed pH of 7.32 PCO2 of 81 PO2 58. Patient was given IV steroids and breathing treatments and also antibiotics Rocephin and azithromycin single dose. Patient was placed on BiPAP and was admitted to hospitalist service. Later today patient was found to be increasingly somnolent despite BiPAP. I am also told patient had been intermittently taking the BiPAP was mask off due to confusion. A repeat ABG showed a pH of 7.11 PCO2 128 and PO2 93. Due to acute worsening of hypercapnic respiratory failure and CO2 narcosis critical care was consulted. I evaluated the patient in the ED. He appears somnolent and confused I explained to him that at this point he has failed BiPAP, and will need endotracheal intubation and mechanical ventilation. I spoke on the phone with his brother Javy per his request. After this I intubated and placed him on mechanical ventilation. Patient will be continued on IV steroids and breathing treatments. Antibiotics cefepime and azithromycin started. 08/09: No overnight events, patient is currently tolerating pressure support trial without difficulty. 08/10: Patient awake and alert this morning, tolerated pressure support throughout the day yesterday and this morning, follows commands, will extubate. Hospitalist Notes: 08/11: Stable in his bedroom discussed with nurse, consulted engineering specialist technician seen by Doctor Rodo Koehler has Hypoxic and Hypercarbic respiratory failure, improving, recommended BiPAP therapy while sleeping, will need Polysomnography as outpatient Bronchodilator, Mucolytic and incentive spirometry. 08/12: Seen in his bedroom, continue present care, will transfer to [facility] placed a transfer order. 08/13: Patient discussed with nurse Miss Hughes, he asked for medicine to improve his Insomnia will give low dose of Ambien, due to recent Respiratory Insufficiency, also asking to increase his ADA Calories he has Morbid Obesity will increase to 2200 cals day and follow, no nausea vomit or diarrhea. Physical Exam Vital signs: Vital Signs 08/12/18 08:32 08/12/18 08:57 08/12/18 09:00 Temperature Pulse Rate 77 81 79 Respiratory Rate 28 H 16 19 Blood Pressure 176/86 H Pulse Oximetry 97 100 08/12/18 10:00 08/12/18 11:00 08/12/18 11:50 Temperature Pulse Rate 73 77 82 Respiratory Rate 24 18 21 Blood Pressure Pulse Oximetry 97 97 08/12/18 12:00 08/12/18 13:00 08/12/18 14:00 Temperature 98.4 F Pulse Rate 80 85 86 Respiratory Rate 29 H 22 16 Blood Pressure Pulse Oximetry 99 98 100 08/12/18 14:03 08/12/18 15:00 08/12/18 16:36 Temperature 98.4 F Pulse Rate 86 91 H 83 Respiratory Rate 22 26 H 20 Blood Pressure 142/77 H 143/81 H Pulse Oximetry 97 97 98 08/12/18 16:59 08/12/18 17:50 08/12/18 19:00 Temperature Pulse Rate 80 78 75 Respiratory Rate Blood Pressure Pulse Oximetry 08/12/18 20:00 08/12/18 20:05 08/12/18 21:00 Temperature 98.3 F Pulse Rate 77 82 79 Respiratory Rate 20 22 Blood Pressure 142/88 H Pulse Oximetry 97 08/12/18 22:00 08/12/18 23:00 08/13/18 00:00 Temperature 98.8 F Pulse Rate 82 80 74 Respiratory Rate 20 Blood Pressure 140/91 H Pulse Oximetry 96 08/13/18 00:15 08/13/18 00:34 08/13/18 01:00 Temperature Pulse Rate 79 76 Respiratory Rate 20 Blood Pressure Pulse Oximetry 94 L 08/13/18 02:00 08/13/18 03:00 08/13/18 04:00 Temperature 98.4 F Pulse Rate 70 72 75 Respiratory Rate 18 Blood Pressure 149/84 H Pulse Oximetry 97 08/13/18 05:00 08/13/18 06:00 08/13/18 07:30 Temperature Pulse Rate 76 81 80 Respiratory Rate 20 Blood Pressure Pulse Oximetry 08/13/18 07:31 Temperature Pulse Rate Respiratory Rate Blood Pressure Pulse Oximetry 99 Intake & Output 08/12/18 08/13/18 08/13/18 18:59 06:59 18:59 Intake Total 580 / 580 700 / 700 Output Total 200 / 200 800 / 800 Balance 380 / 380 -100 / -100 Weight 156.2 kg Intake: IV 100 / 100 100 / 100 Maxipime Inj 2,000 MG In NS Inj 100 / 100 100 / 100 100 ML @ 200 mls/hr IV.SIG Q12H ANGÉLICA Rx#:[id number] Oral 480 / 480 600 / 600 Output: Urine 200 / 200 800 / 800 Other: Date of Last Bowel Movement 08/12/18 # Bowel Movements 1 Narrative: GENERAL: Obesity. No acute distress. SKIN: Warm and dry. HEAD: Atraumatic. Normocephalic. EYES: Pupils equal and round. ENT: No nasal bleeding or discharge. Edentulous NECK: Trachea midline. No JVD. CARDIOVASCULAR: Regular rate and rhythm. No murmur appreciated. Left upper chest AICD in place. RESPIRATORY: Decreased breath sounds bilateral, no wheezing or crackles. GASTROINTESTINAL: Abdomen soft, non-tender, nondistended. Hepatic and splenic unable to palpate MUSCULOSKELETAL: No obvious deformities. No clubbing, Edema 1+ - Urinary Catheter Management Indwelling Urethral Catheter Cath placed during this visit: yes, but has since been removed by the nurse Reason for continuing: Decision to DC catheter Insertion date: 08/08/18 Insertion time: 11:27 Removal date: 08/10/18 Removal time: 10:00 Results - Labs CBC & Chem 7: 08/13/18 05:20 08/13/18 05:20 Laboratory Results - last 24 hr 08/12/18 08/12/18 08/12/18 04:56 11:54 12:23 WBC RBC Hgb Hct MCV MCH MCHC RDW Plt Count MPV Prelim Diff (Auto) WBC Differential Manual diff final Seg Neuts % (Manual) 92 H Band Neuts % (Manual) 2 Lymphocytes % (Manual) 6 L Abs Neuts (Manual) 7.7 Differential Comment Platelet Estimate Normal Platelet Morphology Normal Puncture Site Right radial Patient Temperature 98.6 O2 Saturation 93 ABG pH 7.35 L ABG pCO2 60 H* ABG pO2 87 ABG HCO3 32 H ABG O2 Content 14.1 ABG Base Excess 6.7 H ABG Methemoglobin 2.3 H Rolando Test Present Hemoglobin 10.7 L Carboxyhemoglobin 0.9 O2 Delivery Device Nasal cannula Liter Flow 2.00 Critical Value Yes Sodium Potassium Chloride Carbon Dioxide Anion Gap BUN Creatinine Estimated GFR POC Glucose 279 H Random Glucose Calcium Magnesium Total Bilirubin AST ALT Alkaline Phosphatase Total Protein Albumin 08/12/18 08/12/18 08/12/18 15:31 20:31 23:07 WBC RBC Hgb Hct MCV MCH MCHC RDW Plt Count MPV Prelim Diff (Auto) WBC Differential Seg Neuts % (Manual) Band Neuts % (Manual) Lymphocytes % (Manual) Abs Neuts (Manual) Differential Comment Platelet Estimate Platelet Morphology Puncture Site Patient Temperature O2 Saturation ABG pH ABG pCO2 ABG pO2 ABG HCO3 ABG O2 Content ABG Base Excess ABG Methemoglobin Rolando Test Hemoglobin Carboxyhemoglobin O2 Delivery Device Liter Flow Critical Value Sodium Potassium Chloride Carbon Dioxide Anion Gap BUN Creatinine Estimated GFR POC Glucose 326 H 271 H 325 H Random Glucose Calcium Magnesium Total Bilirubin AST ALT Alkaline Phosphatase Total Protein Albumin 08/13/18 08/13/18 05:20 05:20 WBC 9.4 RBC 4.29 L Hgb 11.5 L Hct 37.1 L MCV 86.5 MCH 26.7 L MCHC 30.9 L RDW 16.4 Plt Count 192 MPV 8.8 Prelim Diff (Auto) Manual diff required WBC Differential Seg Neuts % (Manual) Band Neuts % (Manual) Lymphocytes % (Manual) Abs Neuts (Manual) Differential Comment . Platelet Estimate Platelet Morphology Puncture Site Patient Temperature O2 Saturation ABG pH ABG pCO2 ABG pO2 ABG HCO3 ABG O2 Content ABG Base Excess ABG Methemoglobin Rolando Test Hemoglobin Carboxyhemoglobin O2 Delivery Device Liter Flow Critical Value Sodium 141 Potassium 4.4 Chloride 99 Carbon Dioxide 34.9 H Anion Gap 7 BUN 35 H Creatinine 1.30 Estimated GFR 57 L POC Glucose Random Glucose 129 H Calcium 7.9 L Magnesium 2.8 H Total Bilirubin 0.5 AST 10 L ALT 17 Alkaline Phosphatase 71 Total Protein 6.9 Albumin 2.9 L - Imaging Head CT 08/08/18 00:00 CONCLUSION: 1. Negative noncontrast head CT. Chest X-Ray 08/08/18 11:31 CONCLUSION: Tubes and catheters in good position. Mild pulmonary vascular congestion. - Procedures Endotracheal intubation and Extubation. Assessment and Plan - Plan 1. Acute Metabolic Encephalopathy/CO2 Narcosis Continue Home medicines Depakote and Gabapentin 2. VDRF/Acute Hypercapnic and Hypoxemic respiratory failure COPD exacerbation TANA 08/10: Extubated yesterday, continue Bronchodilator, Mucolytic incentive spirometry, Solu-Medrol Antibiotics Cefepime and Azithromycin. following sputum culture 08/11: consulted engineering specialist technician seen by Doctor Rodo Romerohba has Hypoxic and Hypercarbic respiratory failure, improving, recommended BiPAP therapy while sleeping, will need Polysomnography as outpatient 08/13: Awaiting final by engineering specialist technician to discharge to SNF. at this time on Cefepime, continue Azithromycin by mouth Solu-Medrol to by mouth Prednisone, Famotidine to by mouth. 3. CAD status post CABG/AICD in place to continue Aspirin, Clonidine and Amiodarone 4. Morbid Obesity strongly recommended diet and exercise as outpatient 5. Acute on chronic kidney disease 6. Left lower Lobe Pneumonia on Cefepime and Azithromycin 7. DM II to continue sliding scale. Uncontrolled increase Levemir to 20 units BID. and pre meal Insulin 5 units. 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 8. Hypertension uncontrolled, continue Clonidine PRN and added Amlodipine 5 mg daily PROPH: -Bilateral lower extremity SCDs. SQH/famotidine Transfer to Stepdown. Code Status: Full code. Discussed Condition With: Patient and Nurse Miss Hughes. Discharge Planning: Once cleared by engineering specialist technician.
[2018-08-13 10:22] LABS: Lymphocytes 8 % (9-44); Monocytes 2 % (0-8); Ovalocytes 1+; Platelet Estimate Normal (Normal); Platelet Morphology Normal (Normal)
[2018-08-13] MEDS: Chlorhexidine 0.12% Oral Kit 15 ML UDC OROPHARYNG SCH ×2 (11:30→20:43)
[2018-08-13] MEDS: Famotidine PF Inj 20 MG/2 ML Vial IV.PUSH SCH (11:31)
[2018-08-13] MEDS: Senna/Docusate Sodium 8.6/50 MG Tablet PO SCH ×2 (11:33→20:44)
[2018-08-13] MEDS: Furosemide 20 MG Tablet PO SCH (11:33)
[2018-08-13] MEDS: Aspirin 325 MG Tablet PO SCH (11:33)
[2018-08-13] MEDS: Amiodarone 200 MG Tablet PO SCH ×2 (11:33→20:43)
[2018-08-13] MEDS: Allopurinol 100 MG Tablet PO SCH (11:33)
[2018-08-13] MEDS: Sertraline 50 MG Tablet PO SCH ×2 (11:34→20:44)
[2018-08-13] MEDS: Gabapentin 100 MG Capsule PO SCH ×3 (11:34→17:50)
[2018-08-13] MEDS: Insulin Detemir Inj 1,000 UNIT/10 ML Vial SQ SCH ×2 (11:34→20:43)
[2018-08-13] MEDS: Sodium Chloride 0.9% 2 ML Flush BID IV.FLUSH SCH ×2 (11:37→20:44)
[2018-08-13] MEDS ORDERED: Insulin Detemir Inj 1,000 UNIT/10 ML Vial SQ ONE (12:11)
[2018-08-13] MEDS ORDERED: amLODIPine 5 MG Tablet PO SCH (12:15)
[2018-08-13] MEDS: Divalproex 500 MG DR Tablet PO SCH ×2 (15:06→20:43)
--- NOTE | 2018-08-13 15:06 | P.PN ---
Subjective Interval history: ALERT NO SOB Physical Exam Vital signs: Vital Signs 08/12/18 16:36 08/12/18 16:59 08/12/18 17:50 Temperature 98.4 F Pulse Rate 83 80 78 Respiratory Rate 20 Blood Pressure 143/81 H Pulse Oximetry 98 08/12/18 19:00 08/12/18 20:00 08/12/18 20:05 Temperature 98.3 F Pulse Rate 75 77 82 Respiratory Rate 20 22 Blood Pressure 142/88 H Pulse Oximetry 97 08/12/18 21:00 08/12/18 22:00 08/12/18 23:00 Temperature Pulse Rate 79 82 80 Respiratory Rate Blood Pressure Pulse Oximetry 08/13/18 00:00 08/13/18 00:15 08/13/18 00:34 Temperature 98.8 F Pulse Rate 74 79 Respiratory Rate 20 20 Blood Pressure 140/91 H Pulse Oximetry 96 94 L 08/13/18 01:00 08/13/18 02:00 08/13/18 03:00 Temperature Pulse Rate 76 70 72 Respiratory Rate Blood Pressure Pulse Oximetry 08/13/18 04:00 08/13/18 05:00 08/13/18 06:00 Temperature 98.4 F Pulse Rate 75 76 81 Respiratory Rate 18 Blood Pressure 149/84 H Pulse Oximetry 97 08/13/18 07:30 08/13/18 07:31 08/13/18 08:00 Temperature 97.5 F L Pulse Rate 80 80 Respiratory Rate 20 20 Blood Pressure 175/90 H Pulse Oximetry 99 97 08/13/18 11:00 08/13/18 11:45 08/13/18 14:38 Temperature 98.9 F 99.1 F Pulse Rate 86 80 Respiratory Rate 20 22 Blood Pressure 168/90 H 183/96 H 116/76 Pulse Oximetry 94 L 98 Intake & Output 08/12/18 08/13/18 08/13/18 18:59 06:59 18:59 Intake Total 580 / 580 700 / 700 Output Total 200 / 200 800 / 800 Balance 380 / 380 -100 / -100 Weight 156.2 kg Intake: IV 100 / 100 100 / 100 Maxipime Inj 2,000 MG In NS Inj 100 / 100 100 / 100 100 ML @ 200 mls/hr IV.SIG Q12H [facility] Rx#:[id number] Oral 480 / 480 600 / 600 Output: Urine 200 / 200 800 / 800 Other: Date of Last Bowel Movement 08/12/18 08/12/18 # Bowel Movements 1 Narrative: GENERAL: Obesity. No acute distress. SKIN: Warm and dry. HEAD: Atraumatic. Normocephalic. EYES: Pupils equal and round. ENT: No nasal bleeding or discharge. Edentulous NECK: Trachea midline. No JVD. CARDIOVASCULAR: Regular rate and rhythm. No murmur appreciated. Left upper chest AICD in place. RESPIRATORY: Decreased breath sounds bilateral, no wheezing or crackles. GASTROINTESTINAL: Abdomen soft, non-tender, nondistended. Hepatic and splenic unable to palpate MUSCULOSKELETAL: No obvious deformities. No clubbing, Edema 1+ - Urinary Catheter Management Indwelling Urethral Catheter Cath placed during this visit: yes, but has since been removed by the nurse Reason for continuing: Decision to DC catheter Insertion date: 08/08/18 Insertion time: 11:27 Removal date: 08/10/18 Removal time: 10:00 Results - Labs CBC & Chem 7: 08/13/18 05:20 08/13/18 05:20 Laboratory Results - last 24 hr 08/12/18 08/12/18 08/12/18 15:31 20:31 23:07 WBC RBC Hgb Hct MCV MCH MCHC RDW Plt Count MPV Prelim Diff (Auto) WBC Differential Seg Neuts % (Manual) Lymphocytes % (Manual) Monocytes % (Manual) Abs Neuts (Manual) Differential Comment Platelet Estimate Platelet Morphology Ovalocytes Sodium Potassium Chloride Carbon Dioxide Anion Gap BUN Creatinine Estimated GFR POC Glucose 326 H 271 H 325 H Random Glucose Calcium Magnesium Total Bilirubin AST ALT Alkaline Phosphatase Total Protein Albumin 08/13/18 08/13/18 08/13/18 05:20 05:20 09:18 WBC 9.4 RBC 4.29 L Hgb 11.5 L Hct 37.1 L MCV 86.5 MCH 26.7 L MCHC 30.9 L RDW 16.4 Plt Count 192 MPV 8.8 Prelim Diff (Auto) Manual diff required WBC Differential Manual diff final Seg Neuts % (Manual) 90 H Lymphocytes % (Manual) 8 L Monocytes % (Manual) 2 Abs Neuts (Manual) 8.5 H Differential Comment . Platelet Estimate Normal Platelet Morphology Normal Ovalocytes 1+ H Sodium 141 Potassium 4.4 Chloride 99 Carbon Dioxide 34.9 H Anion Gap 7 BUN 35 H Creatinine 1.30 Estimated GFR 57 L POC Glucose 182 H Random Glucose 129 H Calcium 7.9 L Magnesium 2.8 H Total Bilirubin 0.5 AST 10 L ALT 17 Alkaline Phosphatase 71 Total Protein 6.9 Albumin 2.9 L 08/13/18 12:48 WBC RBC Hgb Hct MCV MCH MCHC RDW Plt Count MPV Prelim Diff (Auto) WBC Differential Seg Neuts % (Manual) Lymphocytes % (Manual) Monocytes % (Manual) Abs Neuts (Manual) Differential Comment Platelet Estimate Platelet Morphology Ovalocytes Sodium Potassium Chloride Carbon Dioxide Anion Gap BUN Creatinine Estimated GFR POC Glucose 215 H Random Glucose Calcium Magnesium Total Bilirubin AST ALT Alkaline Phosphatase Total Protein Albumin - Procedures Endotracheal intubation and Extubation. Assessment and Plan - Plan respiratory failure christine/csa suspect copd morbid obesity plan o2 as needed bronchodilators BIPAP/ SLEEP LOOSE WT INCREASE ACTIVITY
[2018-08-13 18:30] LABS: Hemoglobin A1c 6.8 % (4.3-6.0)
[2018-08-13] MEDS: Famotidine 20 MG Tablet PO SCH (20:44)
[2018-08-13] MEDS: Zolpidem Tartrate 5 MG Tablet PO PRN (22:23)
[2018-08-13] MEDS: Azithromycin 250 MG Tablet PO SCH (22:23)
[2018-08-14] MEDS: Artificial Tears Opth Drops 15 ML Bottle EACH EYE SCH ×3 (01:02→16:16)
[2018-08-14] MEDS: Heparin - SQ 10,000 UNITS/ML Vial SQ SCH ×3 (04:20→21:13)
[2018-08-14] MEDS: Insulin NovoLOG Aspart Correctional Sugar Inj SQ SCH ×5 (04:20→21:13)
[2018-08-14] MEDS: Oral Hygiene Kit OROPHARYNG SCH ×4 (04:20→16:16)
[2018-08-14 07:53] LABS: Hematocrit 35.9 % (39.0-51.0); Hemoglobin 11.1 gm/dL (13.0-17.0); Mean Corpuscular Hemoglobin 26.8 pg (27.0-34.0); Mean Platelet Volume 8.7 fL (7.0-11.0); Platelet Count 169 th/mm3 (150-450); Red Blood Count 4.13 mil/mm3 (4.50-5.90); Red Cell Distribution Width 16.4 % (11.6-17.2); White Blood Count 8.3 th/mm3 (4.0-11.0)
[2018-08-14 07:59] LABS: Alanine Aminotransferase 17 U/L (12-78); Albumin 2.8 g/dL (3.4-5.0); Anion Gap 1 meq/L (5-15); Aspartate Aminotransferase 13 U/L (15-37); Blood Urea Nitrogen 31 mg/dL (7-18); Calcium 7.8 mg/dL (8.5-10.1); Carbon Dioxide 37.6 meq/L (21.0-32.0); Chloride 101 meq/L (98-107); Glomerular Filtration Rate 66 mL/min (>89); Glucose,Random 73 mg/dL (74-106); Magnesium 2.6 mg/dL (1.5-2.5); Potassium 4.3 meq/L (3.5-5.1); Sodium 140 meq/L (136-145); Total Protein 6.4 g/dL (6.4-8.2)
[2018-08-14 08:00] LABS: Alkaline Phosphatase 62 U/L (45-117); Mean Corpuscular HGB Conc 30.9 % (32.0-36.0)
[2018-08-14] MEDS: Allopurinol 100 MG Tablet PO SCH (08:02)
[2018-08-14] MEDS: Azithromycin 250 MG Tablet PO SCH (08:02)
[2018-08-14] MEDS: Insulin Detemir Inj 1,000 UNIT/10 ML Vial SQ SCH ×2 (08:02→21:13)
[2018-08-14] MEDS: Famotidine 20 MG Tablet PO SCH ×2 (08:02→21:12)
[2018-08-14] MEDS: Divalproex 500 MG DR Tablet PO SCH ×2 (08:02→21:12)
[2018-08-14] MEDS: Amiodarone 200 MG Tablet PO SCH ×2 (08:02→21:12)
[2018-08-14] MEDS: Gabapentin 100 MG Capsule PO SCH ×3 (08:02→18:08)
[2018-08-14] MEDS: predniSONE 20 MG Tablet PO SCH (08:03)
[2018-08-14] MEDS: Senna/Docusate Sodium 8.6/50 MG Tablet PO SCH ×2 (08:03→21:13)
[2018-08-14] MEDS: Aspirin 325 MG Tablet PO SCH (08:03)
[2018-08-14] MEDS: Furosemide 20 MG Tablet PO SCH (08:03)
[2018-08-14] MEDS: Sertraline 50 MG Tablet PO SCH ×2 (08:03→21:12)
[2018-08-14] MEDS: Sodium Chloride 0.9% 2 ML Flush BID IV.FLUSH SCH ×2 (08:04→21:00)
[2018-08-14] MEDS: Chlorhexidine 0.12% Oral Kit 15 ML UDC OROPHARYNG SCH ×2 (08:10→21:13)
[2018-08-14 08:55] LABS: Lymphocytes 17 % (9-44); Monocytes 7 % (0-8); Platelet Estimate Normal (Normal); Platelet Morphology Normal (Normal)
--- NOTE | 2018-08-14 12:41 | P.PN ---
Subjective Interval history: Follow-up respiratory failure/PD exacerbation August 14, 2018-patient seen and examined, reports improvement of shortness of breath denies any chest pain. Currently afebrile Physical Exam Vital signs: Vital Signs 08/13/18 13:00 08/13/18 14:00 08/13/18 14:38 Temperature Pulse Rate 82 82 Respiratory Rate Blood Pressure 116/76 Pulse Oximetry 08/13/18 15:00 08/13/18 15:16 08/13/18 15:42 Temperature Pulse Rate 84 83 Respiratory Rate 18 Blood Pressure 125/79 Pulse Oximetry 97 08/13/18 16:00 08/13/18 17:00 08/13/18 18:00 Temperature Pulse Rate 86 82 86 Respiratory Rate Blood Pressure Pulse Oximetry 08/13/18 19:00 08/13/18 19:06 08/13/18 20:00 Temperature 99.8 F H Pulse Rate 86 85 90 Respiratory Rate 16 18 Blood Pressure 157/77 H Pulse Oximetry 96 08/13/18 21:00 08/13/18 22:00 08/13/18 23:00 Temperature Pulse Rate 82 76 90 Respiratory Rate Blood Pressure Pulse Oximetry 08/13/18 23:33 08/13/18 23:42 08/13/18 23:48 Temperature 98.4 F Pulse Rate 84 77 Respiratory Rate 18 18 Blood Pressure 150/73 H Pulse Oximetry 97 98 08/14/18 00:00 08/14/18 01:00 08/14/18 02:00 Temperature Pulse Rate 73 71 65 Respiratory Rate Blood Pressure Pulse Oximetry 08/14/18 03:00 08/14/18 04:00 08/14/18 04:55 Temperature 97.5 F L Pulse Rate 70 67 Respiratory Rate 18 Blood Pressure 111/63 Pulse Oximetry 100 99 08/14/18 05:00 08/14/18 06:00 08/14/18 07:00 Temperature Pulse Rate 60 60 59 L Respiratory Rate Blood Pressure Pulse Oximetry 08/14/18 08:00 08/14/18 09:00 08/14/18 10:00 Temperature 98.1 F Pulse Rate 75 74 80 Respiratory Rate 18 Blood Pressure 140/82 Pulse Oximetry 100 08/14/18 11:00 08/14/18 11:53 08/14/18 12:00 Temperature 98 F Pulse Rate 81 87 79 Respiratory Rate 18 16 Blood Pressure 138/64 Pulse Oximetry 96 Intake & Output 08/13/18 08/14/18 08/14/18 18:59 06:59 18:59 Intake Total 1220 / 1220 580 / 580 Output Total 1790 / 1790 1000 / 1000 Balance -570 / -570 -420 / -420 Weight 155 kg Intake: IV 100 / 100 100 / 100 Maxipime Inj 2,000 MG In NS Inj 100 / 100 100 / 100 100 ML @ 200 mls/hr IV.SIG Q12H [facility] Rx#:[id number] Oral 1120 / 1120 480 / 480 Output: Urine 1790 / 1790 1000 / 1000 Other: Date of Last Bowel Movement 08/13/18 08/13/18 # Bowel Movements 0 Narrative: GENERAL: No acute distress. SKIN: Warm and dry. HEAD: Atraumatic. Normocephalic. EYES: Pupils equal and round. ENT: No nasal bleeding or discharge. Edentulous NECK: Trachea midline. No JVD. CARDIOVASCULAR: Regular rate and rhythm. No murmur appreciated. Left upper chest AICD in place. RESPIRATORY: Decreased breath sounds bilateral, no wheezing or crackles. GASTROINTESTINAL: Abdomen soft, non-tender, nondistended. Hepatic and splenic unable to palpate MUSCULOSKELETAL: No obvious deformities. No clubbing, Edema 1+ - Urinary Catheter Management Indwelling Urethral Catheter Cath placed during this visit: yes, but has since been removed by the nurse Reason for continuing: Decision to DC catheter Insertion date: 08/08/18 Insertion time: 11:27 Removal date: 08/10/18 Removal time: 10:00 Results - Labs CBC & Chem 7: 08/14/18 06:27 08/14/18 06:27 Laboratory Results - last 24 hr 08/12/18 08/13/18 08/13/18 04:56 12:48 17:07 WBC RBC Hgb Hct MCV MCH MCHC RDW Plt Count MPV Prelim Diff (Auto) WBC Differential Seg Neuts % (Manual) Lymphocytes % (Manual) Monocytes % (Manual) Abs Neuts (Manual) Differential Comment Platelet Estimate Platelet Morphology Sodium Potassium Chloride Carbon Dioxide Anion Gap BUN Creatinine Estimated GFR POC Glucose 215 H 269 H Random Glucose Hemoglobin A1c 6.8 H Calcium Magnesium Total Bilirubin AST ALT Alkaline Phosphatase Total Protein Albumin 08/13/18 08/13/18 08/14/18 20:18 23:54 03:56 WBC RBC Hgb Hct MCV MCH MCHC RDW Plt Count MPV Prelim Diff (Auto) WBC Differential Seg Neuts % (Manual) Lymphocytes % (Manual) Monocytes % (Manual) Abs Neuts (Manual) Differential Comment Platelet Estimate Platelet Morphology Sodium Potassium Chloride Carbon Dioxide Anion Gap BUN Creatinine Estimated GFR POC Glucose 325 H 203 H 105 Random Glucose Hemoglobin A1c Calcium Magnesium Total Bilirubin AST ALT Alkaline Phosphatase Total Protein Albumin 08/14/18 08/14/18 08/14/18 06:27 06:27 07:52 WBC 8.3 RBC 4.13 L Hgb 11.1 L Hct 35.9 L MCV 87.0 MCH 26.8 L MCHC 30.9 L RDW 16.4 Plt Count 169 MPV 8.7 Prelim Diff (Auto) Manual diff required WBC Differential Manual diff final Seg Neuts % (Manual) 76 H Lymphocytes % (Manual) 17 Monocytes % (Manual) 7 Abs Neuts (Manual) 6.3 Differential Comment . Platelet Estimate Normal Platelet Morphology Normal Sodium 140 Potassium 4.3 Chloride 101 Carbon Dioxide 37.6 H Anion Gap 1 L BUN 31 H Creatinine 1.15 Estimated GFR 66 L POC Glucose 84 Random Glucose 73 L Hemoglobin A1c Calcium 7.8 L Magnesium 2.6 H Total Bilirubin 0.4 AST 13 L ALT 17 Alkaline Phosphatase 62 Total Protein 6.4 Albumin 2.8 L 08/14/18 11:27 WBC RBC Hgb Hct MCV MCH MCHC RDW Plt Count MPV Prelim Diff (Auto) WBC Differential Seg Neuts % (Manual) Lymphocytes % (Manual) Monocytes % (Manual) Abs Neuts (Manual) Differential Comment Platelet Estimate Platelet Morphology Sodium Potassium Chloride Carbon Dioxide Anion Gap BUN Creatinine Estimated GFR POC Glucose 87 Random Glucose Hemoglobin A1c Calcium Magnesium Total Bilirubin AST ALT Alkaline Phosphatase Total Protein Albumin - Procedures Endotracheal intubation and Extubation. Assessment and Plan - Plan 57-year-old man with 1. Acute Metabolic Encephalopathy/CO2 Narcosis -resolved Continue Home medicines Depakote and Gabapentin 2. VDRF/Acute Hypercapnic and Hypoxemic respiratory failure COPD exacerbation-proving TANA -continue Bronchodilator, Mucolytic incentive spirometry, p.o. prednisone, Antibiotics Cefepime and Azithromycin. -Appreciate input from pulmonary medicine, continue with BiPAP as needed, will need Polysomnography as outpatient 3. CAD status post CABG/AICD in place -continue Aspirin, Clonidine and Amiodarone 4. Morbid Obesity strongly recommended diet and exercise as outpatient 5. Acute on chronic kidney disease 6. Left lower Lobe Pneumonia on Cefepime and Azithromycin 7. DM II Continue Levemir 20 units BID, insulin sliding scale and pre meal Insulin 5 units. 8. Hypertension continue Clonidine PRN and Amlodipine 5 mg daily PROPH: -Bilateral lower extremity SCDs. SQH/famotidine Transfer to [facility]
--- NOTE | 2018-08-14 18:08 | P.PN ---
Subjective Interval history: ALERT NO SOB AT REST Physical Exam Vital signs: Vital Signs 08/13/18 19:00 08/13/18 19:06 08/13/18 20:00 Temperature 99.8 F H Pulse Rate 86 85 90 Respiratory Rate 16 18 Blood Pressure 157/77 H Pulse Oximetry 96 08/13/18 21:00 08/13/18 22:00 08/13/18 23:00 Temperature Pulse Rate 82 76 90 Respiratory Rate Blood Pressure Pulse Oximetry 08/13/18 23:33 08/13/18 23:42 08/13/18 23:48 Temperature 98.4 F Pulse Rate 84 77 Respiratory Rate 18 18 Blood Pressure 150/73 H Pulse Oximetry 97 98 08/14/18 00:00 08/14/18 01:00 08/14/18 02:00 Temperature Pulse Rate 73 71 65 Respiratory Rate Blood Pressure Pulse Oximetry 08/14/18 03:00 08/14/18 04:00 08/14/18 04:55 Temperature 97.5 F L Pulse Rate 70 67 Respiratory Rate 18 Blood Pressure 111/63 Pulse Oximetry 100 99 08/14/18 05:00 08/14/18 06:00 08/14/18 07:00 Temperature Pulse Rate 60 60 59 L Respiratory Rate Blood Pressure Pulse Oximetry 08/14/18 08:00 08/14/18 09:00 08/14/18 10:00 Temperature 98.1 F Pulse Rate 75 74 80 Respiratory Rate 18 Blood Pressure 140/82 Pulse Oximetry 100 08/14/18 11:00 08/14/18 11:53 08/14/18 12:00 Temperature 98 F Pulse Rate 81 87 79 Respiratory Rate 18 16 Blood Pressure 138/64 Pulse Oximetry 96 08/14/18 13:00 08/14/18 14:00 08/14/18 16:00 Temperature 98.4 F Pulse Rate 85 77 81 Respiratory Rate 16 Blood Pressure 137/66 Pulse Oximetry 96 Intake & Output 08/13/18 08/14/18 08/14/18 18:59 06:59 18:59 Intake Total 1220 / 1220 580 / 580 720 / 720 Output Total 1790 / 1790 1000 / 1000 825 / 825 Balance -570 / -570 -420 / -420 -105 / -105 Weight 155 kg 154.8 kg Intake: IV 100 / 100 100 / 100 Maxipime Inj 2,000 MG In NS Inj 100 / 100 100 / 100 100 ML @ 200 mls/hr IV.SIG Q12H [facility] Rx#:[id number] Oral 1120 / 1120 480 / 480 720 / 720 Output: Urine 1790 / 1790 1000 / 1000 825 / 825 Other: Date of Last Bowel Movement 08/13/18 08/13/18 # Bowel Movements 0 Narrative: GENERAL: No acute distress. SKIN: Warm and dry. HEAD: Atraumatic. Normocephalic. EYES: Pupils equal and round. ENT: No nasal bleeding or discharge. Edentulous NECK: Trachea midline. No JVD. CARDIOVASCULAR: Regular rate and rhythm. No murmur appreciated. Left upper chest AICD in place. RESPIRATORY: Decreased breath sounds bilateral, no wheezing or crackles. GASTROINTESTINAL: Abdomen soft, non-tender, nondistended. Hepatic and splenic unable to palpate MUSCULOSKELETAL: No obvious deformities. No clubbing, Edema 1+ - Urinary Catheter Management Indwelling Urethral Catheter Cath placed during this visit: yes, but has since been removed by the nurse Reason for continuing: Decision to DC catheter Insertion date: 08/08/18 Insertion time: 11: Removal date: 08/10/18 Removal time: 10:00 Results - Labs CBC & Chem 7: 08/14/18 06:27 08/14/18 06:27 Laboratory Results - last 24 hr 08/12/18 08/13/18 08/13/18 04:56 20:18 23:54 WBC RBC Hgb Hct MCV MCH MCHC RDW Plt Count MPV Prelim Diff (Auto) WBC Differential Seg Neuts % (Manual) Lymphocytes % (Manual) Monocytes % (Manual) Abs Neuts (Manual) Differential Comment Platelet Estimate Platelet Morphology Sodium Potassium Chloride Carbon Dioxide Anion Gap BUN Creatinine Estimated GFR POC Glucose 325 H 203 H Random Glucose Hemoglobin A1c 6.8 H Calcium Magnesium Total Bilirubin AST ALT Alkaline Phosphatase Total Protein Albumin 08/14/18 08/14/18 08/14/18 03:56 06:27 06:27 WBC 8.3 RBC 4.13 L Hgb 11.1 L Hct 35.9 L MCV 87.0 MCH 26.8 L MCHC 30.9 L RDW 16.4 Plt Count 169 MPV 8.7 Prelim Diff (Auto) Manual diff required WBC Differential Manual diff final Seg Neuts % (Manual) 76 H Lymphocytes % (Manual) 17 Monocytes % (Manual) 7 Abs Neuts (Manual) 6.3 Differential Comment . Platelet Estimate Normal Platelet Morphology Normal Sodium 140 Potassium 4.3 Chloride 101 Carbon Dioxide 37.6 H Anion Gap 1 L BUN 31 H Creatinine 1.15 Estimated GFR 66 L POC Glucose 105 Random Glucose 73 L Hemoglobin A1c Calcium 7.8 L Magnesium 2.6 H Total Bilirubin 0.4 AST 13 L ALT 17 Alkaline Phosphatase 62 Total Protein 6.4 Albumin 2.8 L 08/14/18 08/14/18 08/14/18 07:52 11:27 16:45 WBC RBC Hgb Hct MCV MCH MCHC RDW Plt Count MPV Prelim Diff (Auto) WBC Differential Seg Neuts % (Manual) Lymphocytes % (Manual) Monocytes % (Manual) Abs Neuts (Manual) Differential Comment Platelet Estimate Platelet Morphology Sodium Potassium Chloride Carbon Dioxide Anion Gap BUN Creatinine Estimated GFR POC Glucose 84 87 196 H Random Glucose Hemoglobin A1c Calcium Magnesium Total Bilirubin AST ALT Alkaline Phosphatase Total Protein Albumin - Procedures Endotracheal intubation and Extubation. Assessment and Plan - Plan respiratory failure christine/csa suspect copd morbid obesity plan o2 as needed bronchodilators BIPAP/ SLEEP LOOSE WT INCREASE ACTIVITY
[2018-08-14] MEDS: Zolpidem Tartrate 5 MG Tablet PO PRN (21:20)
[2018-08-14] MEDS ORDERED: Influenza (Quadrivalent) Vaccine 0.5 ML Syringe IM ONE (22:45)
[2018-08-15] MEDS: Insulin NovoLOG Aspart Correctional Sugar Inj SQ SCH ×5 (03:48→22:17)
[2018-08-15] MEDS: Artificial Tears Opth Drops 15 ML Bottle EACH EYE SCH ×3 (03:48→18:14)
[2018-08-15] MEDS: Oral Hygiene Kit OROPHARYNG SCH ×4 (03:48→18:14)
[2018-08-15] MEDS: Heparin - SQ 10,000 UNITS/ML Vial SQ SCH ×3 (05:00→22:16)
[2018-08-15 07:19] LABS: Baso % (Auto) 0.3 % (0.0-2.0); Eos # (Auto) 0.3 th/mm3 (0.0-0.4); Eos % (Auto) 3.2 % (0.0-4.0); Hemoglobin 10.8 gm/dL (13.0-17.0); Lymph % (Auto) 22.9 % (9.0-44.0); Mean Corpuscular Hemoglobin 26.8 pg (27.0-34.0); Mean Corpuscular Volume 86.4 fL (80.0-100.0); Mean Platelet Volume 8.8 fL (7.0-11.0); Mono # (Auto) 0.7 th/mm3 (0.0-0.9); Neut # (Auto) 5.8 th/mm3 (1.8-7.7); Neut % (Auto) 65.6 % (16.0-70.0); Platelet Count 176 th/mm3 (150-450); Red Blood Count 4.05 mil/mm3 (4.50-5.90); Red Cell Distribution Width 16.3 % (11.6-17.2); White Blood Count 8.8 th/mm3 (4.0-11.0)
[2018-08-15 08:02] LABS: Albumin 2.6 g/dL (3.4-5.0); Anion Gap 3 meq/L (5-15); Aspartate Aminotransferase 15 U/L (15-37); Blood Urea Nitrogen 29 mg/dL (7-18); Calcium 7.9 mg/dL (8.5-10.1); Carbon Dioxide 38.6 meq/L (21.0-32.0); Chloride 100 meq/L (98-107); Glomerular Filtration Rate 74 mL/min (>89); Glucose,Random 84 mg/dL (74-106); Magnesium 2.4 mg/dL (1.5-2.5); Potassium 4.2 meq/L (3.5-5.1); Sodium 142 meq/L (136-145)
[2018-08-15 08:05] LABS: Alanine Aminotransferase 16 U/L (12-78); Alkaline Phosphatase 53 U/L (45-117); Total Protein 5.8 g/dL (6.4-8.2)
--- NOTE | 2018-08-15 09:26 | P.PNIM ---
Subjective Interval history: f/u; respiratory failure in no acute distress. on BiPaP. says that his sob is improving. no fever. Physical Exam Vital signs: Vital Signs 08/14/18 10:00 08/14/18 11:00 08/14/18 11:53 Temperature Pulse Rate 80 81 87 Respiratory Rate 18 Blood Pressure Pulse Oximetry 08/14/18 12:00 08/14/18 13:00 08/14/18 14:00 Temperature 98 F Pulse Rate 79 85 77 Respiratory Rate 16 Blood Pressure 138/64 Pulse Oximetry 96 08/14/18 16:00 08/14/18 19:24 08/14/18 20:00 Temperature 98.4 F 98.7 F Pulse Rate 81 113 H 89 Respiratory Rate 16 20 18 Blood Pressure 137/66 144/66 H Pulse Oximetry 96 96 95 08/15/18 00:00 08/15/18 04:00 08/15/18 07:48 Temperature 98.7 F 98.1 F Pulse Rate 71 69 Respiratory Rate 20 20 Blood Pressure 169/74 H 135/63 Pulse Oximetry 98 98 98 08/15/18 08:00 Temperature 97.6 F Pulse Rate 67 Respiratory Rate 18 Blood Pressure 158/72 H Pulse Oximetry 98 Intake & Output 08/14/18 08/15/18 08/15/18 18:59 06:59 18:59 Intake Total 1060 / 1060 580 / 580 Output Total 1225 / 1225 825 / 825 Balance -165 / -165 -245 / -245 Weight 154.8 kg 152.1 kg Intake: IV 100 / 100 100 / 100 Maxipime Inj 2,000 MG In NS Inj 100 / 100 100 / 100 100 ML @ 200 mls/hr IV.SIG Q12H [facility] Rx#:[id number] Oral 960 / 960 480 / 480 Output: Urine 1225 / 1225 825 / 825 Other: Date of Last Bowel Movement 08/13/18 08/14/18 # Bowel Movements 1 1 - Constitutional no acute distress - Routine Respiratory Exam Present: diminished air movement - Routine Cardiovascular Exam Present: RRR - Routine Abdominal Exam Present: soft - Routine Extremities Exam Comments: bilateral pedal edema. - Routine Neurological Exam Present: alert, oriented X3 - Urinary Catheter Management Indwelling Urethral Catheter Cath placed during this visit: yes, but has since been removed by the nurse Reason for continuing: Decision to DC catheter Insertion date: 08/08/18 Insertion time: 11:27 Removal date: 08/10/18 Removal time: 10:00 Results - Labs CBC & Chem 7: 08/15/18 06:47 08/15/18 06:47 Laboratory Results - last 24 hr 08/14/18 08/14/18 08/14/18 11:27 16:45 19:52 WBC RBC Hgb Hct MCV MCH MCHC RDW Plt Count MPV Neut % (Auto) Lymph % (Auto) [place] % (Auto) Eos % (Auto) Baso % (Auto) Neut # (Auto) Lymph # (Auto) [place] # (Auto) Eos # (Auto) Baso # (Auto) WBC Differential Differential Comment Sodium Potassium Chloride Carbon Dioxide Anion Gap BUN Creatinine Estimated GFR POC Glucose 87 196 H 163 H Random Glucose Calcium Magnesium Total Bilirubin AST ALT Alkaline Phosphatase Total Protein Albumin 08/14/18 08/15/18 08/15/18 23:15 03:42 06:47 WBC 8.8 RBC 4.05 L Hgb 10.8 L Hct 35.0 L MCV 86.4 MCH 26.8 L MCHC 31.0 L RDW 16.3 Plt Count 176 MPV 8.8 Neut % (Auto) 65.6 Lymph % (Auto) 22.9 [place] % (Auto) 8.0 Eos % (Auto) 3.2 Baso % (Auto) 0.3 Neut # (Auto) 5.8 Lymph # (Auto) 2.0 [place] # (Auto) 0.7 Eos # (Auto) 0.3 Baso # (Auto) 0.0 WBC Differential . Differential Comment Auto diff final Sodium Potassium Chloride Carbon Dioxide Anion Gap BUN Creatinine Estimated GFR POC Glucose 111 H 100 Random Glucose Calcium Magnesium Total Bilirubin AST ALT Alkaline Phosphatase Total Protein Albumin 08/15/18 08/15/18 06:47 07:44 WBC RBC Hgb Hct MCV MCH MCHC RDW Plt Count MPV Neut % (Auto) Lymph % (Auto) [place] % (Auto) Eos % (Auto) Baso % (Auto) Neut # (Auto) Lymph # (Auto) [place] # (Auto) Eos # (Auto) Baso # (Auto) WBC Differential Differential Comment Sodium 142 Potassium 4.2 Chloride 100 Carbon Dioxide 38.6 H Anion Gap 3 L BUN 29 H Creatinine 1.04 Estimated GFR 74 L POC Glucose 78 Random Glucose 84 Calcium 7.9 L Magnesium 2.4 Total Bilirubin 0.4 AST 15 ALT 16 Alkaline Phosphatase 53 Total Protein 5.8 L D Albumin 2.6 L - Procedures Endotracheal intubation and Extubation. Assessment and Plan - Plan 1. Acute Metabolic Encephalopathy/CO2 Narcosis -resolved Continue Home medicines Depakote and Gabapentin 2. VDRF/Acute Hypercapnic and Hypoxemic respiratory failure COPD exacerbation-proving TANA sputum culture with MRSA -continue Bronchodilator, Mucolytic incentive spirometry, p.o. prednisone, Antibiotics ; will dc Cefepime and start on IV Vanco. -Appreciate input from pulmonary medicine, continue with BiPAP as needed, will need Polysomnography as outpatient 3. CAD status post CABG/AICD in place -continue Aspirin, Clonidine and Amiodarone 4. Morbid Obesity strongly recommended diet and exercise as outpatient 5. Acute on chronic kidney disease 6. Left lower Lobe Pneumonia on antibiotics as noted above. 7. DM II Continue Levemir 20 units BID, insulin sliding scale and pre meal Insulin 5 units. 8. Hypertension continue Clonidine PRN and Amlodipine 5 mg daily PROPH: -Bilateral lower extremity SCDs. SQH/famotidine Discharge Planning: SNF when clinically stable.
[2018-08-15] MEDS ORDERED: Vancomycin Consult Pharmacy OTHER PRN (09:28)
[2018-08-15] MEDS ORDERED: Vancomycin Inj 1,000 MG in Sodium Chlor 0.9% Inj 250 ML IV.SIG ONE (09:28)
[2018-08-15] MEDS: Famotidine 20 MG Tablet PO SCH ×2 (10:54→22:16)
[2018-08-15] MEDS: Divalproex 500 MG DR Tablet PO SCH ×2 (10:54→22:16)
[2018-08-15] MEDS: Amiodarone 200 MG Tablet PO SCH ×2 (10:55→22:16)
[2018-08-15] MEDS: Allopurinol 100 MG Tablet PO SCH (10:55)
[2018-08-15] MEDS: Furosemide 20 MG Tablet PO SCH (10:55)
[2018-08-15] MEDS: Aspirin 325 MG Tablet PO SCH (10:55)
[2018-08-15] MEDS: Gabapentin 100 MG Capsule PO SCH ×3 (10:55→18:14)
[2018-08-15] MEDS: Senna/Docusate Sodium 8.6/50 MG Tablet PO SCH ×2 (10:55→22:16)
[2018-08-15] MEDS: Sertraline 50 MG Tablet PO SCH ×2 (10:56→22:16)
[2018-08-15] MEDS: Insulin Detemir Inj 1,000 UNIT/10 ML Vial SQ SCH ×2 (10:57→22:17)
[2018-08-15] MEDS: Sodium Chloride 0.9% 2 ML Flush BID IV.FLUSH SCH ×2 (10:57→22:17)
[2018-08-15] MEDS: Chlorhexidine 0.12% Oral Kit 15 ML UDC OROPHARYNG SCH ×2 (10:57→22:17)
[2018-08-15] MEDS: predniSONE 20 MG Tablet PO SCH (10:57)
[2018-08-15] MEDS: Azithromycin 250 MG Tablet PO SCH (11:07)
--- NOTE | 2018-08-15 16:36 | P.PN ---
Subjective Interval history: ALERT NAD Physical Exam Vital signs: Vital Signs 08/14/18 19:24 08/14/18 20:00 08/15/18 00:00 Temperature 98.7 F 98.7 F Pulse Rate 113 H 89 71 Respiratory Rate 20 18 20 Blood Pressure 144/66 H 169/74 H Pulse Oximetry 96 95 98 08/15/18 04:00 08/15/18 07:48 08/15/18 08:00 Temperature 98.1 F 97.6 F Pulse Rate 69 68 Respiratory Rate 20 18 Blood Pressure 135/63 158/72 H Pulse Oximetry 98 98 98 08/15/18 12:00 Temperature 98.3 F Pulse Rate 72 Respiratory Rate 18 Blood Pressure 171/73 H Pulse Oximetry 98 Intake & Output 08/14/18 08/15/18 08/15/18 18:59 06:59 18:59 Intake Total 1060 / 1060 580 / 580 Output Total 1225 / 1225 825 / 825 Balance -165 / -165 -245 / -245 Weight 154.8 kg 152.1 kg Intake: IV 100 / 100 100 / 100 Maxipime Inj 2,000 MG In NS Inj 100 / 100 100 / 100 100 ML @ 200 mls/hr IV.SIG Q12H [facility] Rx#:[id number] Oral 960 / 960 480 / 480 Output: Urine 1225 / 1225 825 / 825 Other: Date of Last Bowel Movement 08/13/18 08/14/18 08/15/18 # Bowel Movements 1 1 Narrative: GENERAL: No acute distress. SKIN: Warm and dry. HEAD: Atraumatic. Normocephalic. EYES: Pupils equal and round. ENT: No nasal bleeding or discharge. Edentulous NECK: Trachea midline. No JVD. CARDIOVASCULAR: Regular rate and rhythm. No murmur appreciated. Left upper chest AICD in place. RESPIRATORY: Decreased breath sounds bilateral, no wheezing or crackles. GASTROINTESTINAL: Abdomen soft, non-tender, nondistended. Hepatic and splenic unable to palpate MUSCULOSKELETAL: No obvious deformities. No clubbing, Edema 1+ - Urinary Catheter Management Indwelling Urethral Catheter Cath placed during this visit: yes, but has since been removed by the nurse Reason for continuing: Decision to DC catheter Insertion date: 08/08/18 Insertion time: 11:27 Removal date: 08/10/18 Removal time: 10:00 Results - Labs CBC & Chem 7: 08/15/18 06:47 08/15/18 06:47 Laboratory Results - last 24 hr 08/14/18 08/14/18 08/14/18 16:45 19:52 23:15 WBC RBC Hgb Hct MCV MCH MCHC RDW Plt Count MPV Neut % (Auto) Lymph % (Auto) [place] % (Auto) Eos % (Auto) Baso % (Auto) Neut # (Auto) Lymph # (Auto) [place] # (Auto) Eos # (Auto) Baso # (Auto) WBC Differential Differential Comment Sodium Potassium Chloride Carbon Dioxide Anion Gap BUN Creatinine Estimated GFR POC Glucose 196 H 163 H 111 H Random Glucose Calcium Magnesium Total Bilirubin AST ALT Alkaline Phosphatase Total Protein Albumin 08/15/18 08/15/18 08/15/18 03:42 06:47 06:47 WBC 8.8 RBC 4.05 L Hgb 10.8 L Hct 35.0 L MCV 86.4 MCH 26.8 L MCHC 31.0 L RDW 16.3 Plt Count 176 MPV 8.8 Neut % (Auto) 65.6 Lymph % (Auto) 22.9 [place] % (Auto) 8.0 Eos % (Auto) 3.2 Baso % (Auto) 0.3 Neut # (Auto) 5.8 Lymph # (Auto) 2.0 [place] # (Auto) 0.7 Eos # (Auto) 0.3 Baso # (Auto) 0.0 WBC Differential . Differential Comment Auto diff final Sodium 142 Potassium 4.2 Chloride 100 Carbon Dioxide 38.6 H Anion Gap 3 L BUN 29 H Creatinine 1.04 Estimated GFR 74 L POC Glucose 100 Random Glucose 84 Calcium 7.9 L Magnesium 2.4 Total Bilirubin 0.4 AST 15 ALT 16 Alkaline Phosphatase 53 Total Protein 5.8 L D Albumin 2.6 L 08/15/18 08/15/18 07:44 12:59 WBC RBC Hgb Hct MCV MCH MCHC RDW Plt Count MPV Neut % (Auto) Lymph % (Auto) [place] % (Auto) Eos % (Auto) Baso % (Auto) Neut # (Auto) Lymph # (Auto) [place] # (Auto) Eos # (Auto) Baso # (Auto) WBC Differential Differential Comment Sodium Potassium Chloride Carbon Dioxide Anion Gap BUN Creatinine Estimated GFR POC Glucose 78 125 H Random Glucose Calcium Magnesium Total Bilirubin AST ALT Alkaline Phosphatase Total Protein Albumin - Procedures Endotracheal intubation and Extubation. Assessment and Plan - Plan respiratory failure christine/csa suspect copd morbid obesity plan o2 as needed bronchodilators BIPAP/ SLEEP LOOSE WT NPSG POST D/C
--- NOTE | 2018-08-15 18:44 | P.DIET ---
Nutritional Evaluation Type of nutrition evaluation: follow-up Nutrition consult regarding: Tube Feeding Subjective Subjective Comments: Pt on the phone when visited. 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 and reports pt w/PO intake 100% and 75 % for meals today Objective - Diagnosis COPD exacerbation, dizziness - Objective % IBW: 278 (IBW = 124lb) Body Weight Used for Calculations: IBW Energy Needs - Lower Range (kCal/kg): 30 (actual body wt: 156.5kg) Energy Needs - Upper Range (kCal/kg): 35 Lower Limit kCal/kg (kCals): 1,691 Upper Limit kCal/kg (kCals): 1,974 Lower Limit Protein Factor (Grams per Kg): 2.0 (IBW) Upper Limit Protein Factor (Grams per Kg): 2.5 Lower Protein Needs (Protein): 113 Upper Protein Needs (Protein): 141 Dietitian Reviewed in Medical Record: Current diet, Curent medications, Intake & Output, Labs, Medical history Diet Order: 2200ADA 2gNa Cardiac Oral Diet Intake Amount: Good 75-90% Objective Comments: PMH: bipolar, CKD stage III, CHF, COPD, CAD, DM, CVA, gout, HTN, s/p AICD, heart bypass Random Glucose 84 LBM 08/15/18, +UOP 2790ml Assessment Assessment: Pt is a nutrition follow-up s/p TF'ing. Extubated 08/10/18. Diet advanced and pt is tolerating diet w/adequate po intake 50% or greater for meals. Rec current diet w/ 1800ADA. Labs reviewed. Wt changes noted. Dietitian will follow as needed. Recommendations: 1. Rec current diet w/ 1800ADA 2. Dietitian will follow as needed
[2018-08-15] MEDS: Zolpidem Tartrate 5 MG Tablet PO PRN (22:16)
[2018-08-15] MEDS: Vancomycin Inj 1,750 MG in Sodium Chlor 0.9% Inj 500 ML IV.SIG SCH (22:17)
[2018-08-16] MEDS: Oral Hygiene Kit OROPHARYNG SCH ×4 (01:28→18:43)
[2018-08-16] MEDS: Artificial Tears Opth Drops 15 ML Bottle EACH EYE SCH ×3 (01:28→18:43)
[2018-08-16] MEDS: Insulin NovoLOG Aspart Correctional Sugar Inj SQ SCH ×6 (01:28→21:34)
[2018-08-16] MEDS: Heparin - SQ 10,000 UNITS/ML Vial SQ SCH ×3 (04:39→21:33)
[2018-08-16] MEDS: Divalproex 500 MG DR Tablet PO SCH ×2 (08:44→21:32)
[2018-08-16] MEDS: Furosemide 20 MG Tablet PO SCH (08:45)
[2018-08-16] MEDS: predniSONE 20 MG Tablet PO SCH (08:45)
[2018-08-16] MEDS: Aspirin 325 MG Tablet PO SCH (08:45)
[2018-08-16] MEDS: Gabapentin 100 MG Capsule PO SCH ×3 (08:45→18:43)
[2018-08-16] MEDS: Senna/Docusate Sodium 8.6/50 MG Tablet PO SCH ×2 (08:45→21:32)
[2018-08-16] MEDS: Allopurinol 100 MG Tablet PO SCH (08:45)
[2018-08-16] MEDS: Sertraline 50 MG Tablet PO SCH ×2 (08:45→21:33)
[2018-08-16] MEDS: Amiodarone 200 MG Tablet PO SCH ×2 (08:45→21:32)
[2018-08-16] MEDS: Famotidine 20 MG Tablet PO SCH ×2 (08:46→21:32)
[2018-08-16] MEDS: Sodium Chloride 0.9% 2 ML Flush BID IV.FLUSH SCH ×2 (08:46→21:35)
[2018-08-16] MEDS: Insulin Detemir Inj 1,000 UNIT/10 ML Vial SQ SCH ×2 (09:30→21:34)
--- NOTE | 2018-08-16 10:16 | P.PN ---
Subjective Interval history: ALERT NAD Physical Exam Vital signs: Vital Signs 08/15/18 12:00 08/15/18 16:00 08/15/18 19:08 Temperature 98.3 F 98.6 F Pulse Rate 72 76 Respiratory Rate 18 18 Blood Pressure 171/73 H 148/79 H Pulse Oximetry 98 97 97 08/15/18 20:00 08/15/18 22:22 08/16/18 00:00 Temperature 97.9 F 97.6 F Pulse Rate 74 68 Respiratory Rate 18 20 Blood Pressure 142/65 H 147/70 H Pulse Oximetry 96 97 100 08/16/18 01:00 08/16/18 04:00 08/16/18 07:48 Temperature 98.0 F Pulse Rate 60 62 Respiratory Rate 20 16 Blood Pressure 150/71 H Pulse Oximetry 97 100 97 08/16/18 08:00 Temperature 98.1 F Pulse Rate 65 Respiratory Rate 18 Blood Pressure 150/68 H Pulse Oximetry 98 Intake & Output 08/15/18 08/16/18 08/16/18 18:59 06:59 18:59 Intake Total 250 / 250 997.5 / 997.5 Output Total 825 / 825 Balance 250 / 250 172.5 / 172.5 Intake: IV 250 / 250 517.5 / 517.5 Vancomycin Inj 1,000 MG In NS 250 / 250 Inj 250 ML @ 125 mls/hr IV.SIG ONCE ONE Rx#:[id number] Vancomycin Inj 1,750 MG In NS 517.5 / 517.5 Inj 500 ML @ 250 mls/hr IV.SIG Q18H [facility] Rx#:[id number] Oral 480 / 480 Output: Urine 825 / 825 Other: Date of Last Bowel Movement 08/15/18 08/15/18 # Bowel Movements 0 Narrative: GENERAL: No acute distress. SKIN: Warm and dry. HEAD: Atraumatic. Normocephalic. EYES: Pupils equal and round. ENT: No nasal bleeding or discharge. Edentulous NECK: Trachea midline. No JVD. CARDIOVASCULAR: Regular rate and rhythm. No murmur appreciated. Left upper chest AICD in place. RESPIRATORY: Decreased breath sounds bilateral, no wheezing or crackles. GASTROINTESTINAL: Abdomen soft, non-tender, nondistended. Hepatic and splenic unable to palpate MUSCULOSKELETAL: No obvious deformities. No clubbing, Edema 1+ - Urinary Catheter Management Indwelling Urethral Catheter Cath placed during this visit: yes, but has since been removed by the nurse Reason for continuing: Decision to DC catheter Insertion date: 08/08/18 Insertion time: 11:27 Removal date: 08/10/18 Removal time: 10:00 Results - Labs CBC & Chem 7: 08/15/18 06:47 08/15/18 06:47 Laboratory Results - last 24 hr 08/15/18 08/15/18 08/15/18 12:59 17:53 20:09 POC Glucose 125 H 268 H 211 H 08/16/18 08/16/18 08/16/18 00:14 04:07 04:36 POC Glucose 120 H 58 L 92 08/16/18 08/16/18 08/16/18 05:09 05:28 06:01 POC Glucose 76 76 75 08/16/18 08:51 POC Glucose 74 - Procedures Endotracheal intubation and Extubation. Assessment and Plan - Plan respiratory failure christine/csa suspect copd morbid obesity plan o2 as needed bronchodilators BIPAP/ SLEEP LOOSE WT PROGRESSIVE AMBULATION
--- NOTE | 2018-08-16 11:31 | P.PNIM ---
Subjective Interval history: f/u; copd exacerbation in no acute distress; however on oxygen via [place] says that he's feeling better. had an episode of hypoglycemia earlier. no fever. Physical Exam Vital signs: Vital Signs 08/15/18 12:00 08/15/18 16:00 08/15/18 19:08 Temperature 98.3 F 98.6 F Pulse Rate 72 76 Respiratory Rate 18 18 Blood Pressure 171/73 H 148/79 H Pulse Oximetry 98 97 97 08/15/18 20:00 08/15/18 22:22 08/16/18 00:00 Temperature 97.9 F 97.6 F Pulse Rate 74 68 Respiratory Rate 18 20 Blood Pressure 142/65 H 147/70 H Pulse Oximetry 96 97 100 08/16/18 01:00 08/16/18 04:00 08/16/18 07:48 Temperature 98.0 F Pulse Rate 60 62 Respiratory Rate 20 16 Blood Pressure 150/71 H Pulse Oximetry 97 100 97 08/16/18 08:00 Temperature 98.1 F Pulse Rate 65 Respiratory Rate 18 Blood Pressure 150/68 H Pulse Oximetry 98 Intake & Output 08/15/18 08/16/18 08/16/18 18:59 06:59 18:59 Intake Total 250 / 250 997.5 / 997.5 Output Total 825 / 825 Balance 250 / 250 172.5 / 172.5 Intake: IV 250 / 250 517.5 / 517.5 Vancomycin Inj 1,000 MG In NS 250 / 250 Inj 250 ML @ 125 mls/hr IV.SIG ONCE ONE Rx#:[id number] Vancomycin Inj 1,750 MG In NS 517.5 / 517.5 Inj 500 ML @ 250 mls/hr IV.SIG Q18H [facility] Rx#:[id number] Oral 480 / 480 Output: Urine 825 / 825 Other: Date of Last Bowel Movement 08/15/18 08/15/18 # Bowel Movements 0 - Constitutional no acute distress, morbidly obese - Routine Respiratory Exam Present: CTA bilaterally, diminished air movement (diminished air entry in bases.) - Routine Cardiovascular Exam Present: RRR - Routine Abdominal Exam Present: soft - Routine Extremities Exam Comments: bilateral pedal edema. - Routine Neurological Exam Present: alert, oriented X3 - Urinary Catheter Management Indwelling Urethral Catheter Cath placed during this visit: yes, but has since been removed by the nurse Reason for continuing: Decision to DC catheter Insertion date: 08/08/18 Insertion time: 11:27 Removal date: 08/10/18 Removal time: 10:00 Results - Labs CBC & Chem 7: 08/17/18 06:38 08/15/18 06:47 Laboratory Results - last 24 hr 08/15/18 08/15/18 08/15/18 12:59 17:53 20:09 POC Glucose 125 H 268 H 211 H 08/16/18 08/16/18 08/16/18 00:14 04:07 04:36 POC Glucose 120 H 58 L 92 08/16/18 08/16/18 08/16/18 05:09 05:28 06:01 POC Glucose 76 76 75 08/16/18 08:51 POC Glucose 74 - Procedures Endotracheal intubation and Extubation. Assessment and Plan - Plan 1. Acute Metabolic Encephalopathy/CO2 Narcosis -resolved Continue Home medicines Depakote and Gabapentin 2. VDRF/Acute Hypercapnic and Hypoxemic respiratory failure-resolved. COPD exacerbation-proving TANA sputum culture with MRSA -continue Bronchodilator, Mucolytic incentive spirometry, p.o. prednisone, Antibiotics ; continue on IV Vanco. -Appreciate input from pulmonary medicine, continue with BiPAP as needed, will need Polysomnography as outpatient 3. CAD status post CABG/AICD in place -continue Aspirin, and Amiodarone 4. Morbid Obesity strongly recommended diet and exercise as outpatient 5. Acute on chronic kidney disease - improved. 6. Left lower Lobe Pneumonia on antibiotics as noted above. 7. DM II with hypoglycemic episode today. decrease Levemir to 15 units BID, insulin sliding scale and pre meal Insulin 5 units. 8. Hypertension continue Clonidine PRN for now. PROPH: -Bilateral lower extremity SCDs. SQH/famotidine Discharge Planning: possible home within the next 48 hrs if stable.
[2018-08-16] MEDS: Chlorhexidine 0.12% Oral Kit 15 ML UDC OROPHARYNG SCH ×2 (12:26→21:35)
[2018-08-16] MEDS: Vancomycin Inj 1,750 MG in Sodium Chlor 0.9% Inj 500 ML IV.SIG SCH (15:53)
[2018-08-16] MEDS: Zolpidem Tartrate 5 MG Tablet PO PRN (21:32)
[2018-08-17] MEDS: Insulin NovoLOG Aspart Correctional Sugar Inj SQ SCH ×6 (00:16→20:25)
[2018-08-17] MEDS: Oral Hygiene Kit OROPHARYNG SCH ×4 (00:16→17:29)
[2018-08-17] MEDS: Artificial Tears Opth Drops 15 ML Bottle EACH EYE SCH ×3 (00:17→17:29)
[2018-08-17] MEDS: Heparin - SQ 10,000 UNITS/ML Vial SQ SCH ×3 (04:54→20:23)
[2018-08-17 08:30] LABS: Baso % (Auto) 0.2 % (0.0-2.0); Eos # (Auto) 0.4 th/mm3 (0.0-0.4); Eos % (Auto) 4.3 % (0.0-4.0); Hematocrit 32.7 % (39.0-51.0); Hemoglobin 10.5 gm/dL (13.0-17.0); Lymph # (Auto) 2.3 th/mm3 (1.0-4.8); Mean Corpuscular HGB Conc 32.1 % (32.0-36.0); Mean Corpuscular Hemoglobin 27.5 pg (27.0-34.0); Mean Corpuscular Volume 85.8 fL (80.0-100.0); Mean Platelet Volume 9.2 fL (7.0-11.0); Mono # (Auto) 0.7 th/mm3 (0.0-0.9); Mono % (Auto) 7.8 % (0.0-8.0); Neut # (Auto) 5.6 th/mm3 (1.8-7.7); Neut % (Auto) 61.7 % (16.0-70.0); Platelet Count 166 th/mm3 (150-450); Red Blood Count 3.81 mil/mm3 (4.50-5.90); Red Cell Distribution Width 16.3 % (11.6-17.2)
[2018-08-17] MEDS ORDERED: Dextrose 50% in Water 50 ML Vial IV.PUSH PRN (09:05)
--- NOTE | 2018-08-17 09:08 | P.PNIM ---
Subjective Interval history: f/u; respiratory failure in no acute distress. sob improving. low grade fever last night; afebrile this morning. no new complaints. Physical Exam Vital signs: Vital Signs 08/16/18 12:00 08/16/18 16:00 08/16/18 20:00 Temperature 98.2 F 99.2 F 99.7 F H Pulse Rate 62 58 L 77 Respiratory Rate 20 18 19 Blood Pressure 179/83 H 110/51 L 164/79 H Pulse Oximetry 93 L 92 L 99 08/16/18 20:07 08/16/18 22:14 08/17/18 00:00 Temperature 98.3 F Pulse Rate 97 H 68 Respiratory Rate 18 18 Blood Pressure 155/68 H Pulse Oximetry 96 99 08/17/18 00:15 08/17/18 04:20 08/17/18 08:36 Temperature Pulse Rate Respiratory Rate Blood Pressure Pulse Oximetry 96 96 96 08/17/18 08:37 Temperature Pulse Rate 65 Respiratory Rate 20 Blood Pressure Pulse Oximetry Intake & Output 08/16/18 08/17/18 08/17/18 18:59 06:59 18:59 Intake Total 960 / 960 517.5 / 517.5 Output Total 1500 / 1500 1000 / 1000 Balance -540 / -540 -482.5 / -482.5 Weight 148.1 kg Intake: IV 517.5 / 517.5 Vancomycin Inj 1,750 MG In NS 517.5 / 517.5 Inj 500 ML @ 250 mls/hr IV.SIG Q18H [facility] Rx#:[id number] Oral 960 / 960 Output: Urine 1500 / 1500 1000 / 1000 Other: Date of Last Bowel Movement 08/16/18 # Bowel Movements 1 - Constitutional no acute distress - Routine Respiratory Exam Present: CTA bilaterally - Routine Cardiovascular Exam Present: RRR - Routine Abdominal Exam Present: soft - Routine Extremities Exam Comments: bilateral pedal edema. - Routine Neurological Exam Present: alert, oriented X3 - Urinary Catheter Management Indwelling Urethral Catheter Cath placed during this visit: yes, but has since been removed by the nurse Reason for continuing: Decision to DC catheter Insertion date: 08/08/18 Insertion time: 11:27 Removal date: 08/10/18 Removal time: 10:00 Results - Labs CBC & Chem 7: 08/17/18 06:38 08/15/18 06:47 Laboratory Results - last 24 hr 08/16/18 08/16/18 08/16/18 08:51 12:36 21:30 WBC RBC Hgb Hct MCV MCH MCHC RDW Plt Count MPV Neut % (Auto) Lymph % (Auto) [place] % (Auto) Eos % (Auto) Baso % (Auto) Neut # (Auto) Lymph # (Auto) [place] # (Auto) Eos # (Auto) Baso # (Auto) WBC Differential Differential Comment POC Glucose 74 164 H 216 H 08/16/18 08/17/18 08/17/18 23:58 06:38 07:55 WBC 9.0 RBC 3.81 L Hgb 10.5 L Hct 32.7 L MCV 85.8 MCH 27.5 MCHC 32.1 RDW 16.3 Plt Count 166 MPV 9.2 Neut % (Auto) 61.7 Lymph % (Auto) 26.0 [place] % (Auto) 7.8 Eos % (Auto) 4.3 H Baso % (Auto) 0.2 Neut # (Auto) 5.6 Lymph # (Auto) 2.3 [place] # (Auto) 0.7 Eos # (Auto) 0.4 Baso # (Auto) 0.0 WBC Differential . Differential Comment Auto diff final POC Glucose 207 H 108 - Procedures Endotracheal intubation and Extubation. Assessment and Plan - Plan 1. Acute Metabolic Encephalopathy/CO2 Narcosis -resolved Continue Home medicines Depakote and Gabapentin 2. VDRF/Acute Hypercapnic and Hypoxemic respiratory failure-resolved. COPD exacerbation-proving TANA sputum culture with MRSA -continue Bronchodilator, Mucolytic incentive spirometry, p.o. prednisone, Antibiotics ; on IV Vanco; will switch to po within the next 24 hrs if no fever. -Appreciate input from pulmonary medicine, continue with BiPAP as needed, will need Polysomnography as outpatient 3. CAD status post CABG/AICD in place -continue Aspirin, and Amiodarone 4. Morbid Obesity strongly recommended diet and exercise as outpatient 5. Acute on chronic kidney disease - improved. 6. Left lower Lobe Pneumonia on antibiotics as noted above. 7. DM II with hypoglycemic episode today. decreased Levemir to 15 units BID, insulin sliding scale . 8. Hypertension continue Clonidine PRN and Amlodipine 5 mg daily PROPH: -Bilateral lower extremity SCDs. SQH/famotidine Discharge Planning: possible home within the next 48 hrs if stable.
[2018-08-17] MEDS: Furosemide 20 MG Tablet PO SCH (09:28)
[2018-08-17] MEDS: Sertraline 50 MG Tablet PO SCH ×2 (09:28→20:34)
[2018-08-17] MEDS: Aspirin 325 MG Tablet PO SCH (09:28)
[2018-08-17] MEDS: Allopurinol 100 MG Tablet PO SCH (09:28)
[2018-08-17] MEDS: Amiodarone 200 MG Tablet PO SCH ×2 (09:28→20:24)
[2018-08-17] MEDS: Senna/Docusate Sodium 8.6/50 MG Tablet PO SCH ×2 (09:28→20:24)
[2018-08-17] MEDS: Insulin Detemir Inj 1,000 UNIT/10 ML Vial SQ SCH ×2 (09:28→20:24)
[2018-08-17] MEDS: Divalproex 500 MG DR Tablet PO SCH ×2 (09:28→20:34)
[2018-08-17] MEDS: Famotidine 20 MG Tablet PO SCH ×2 (09:28→20:24)
[2018-08-17] MEDS: predniSONE 20 MG Tablet PO SCH (09:28)
[2018-08-17] MEDS: Gabapentin 100 MG Capsule PO SCH ×3 (09:28→17:52)
[2018-08-17] MEDS: Sodium Chloride 0.9% 2 ML Flush BID IV.FLUSH SCH ×2 (09:29→20:22)
[2018-08-17] MEDS: Chlorhexidine 0.12% Oral Kit 15 ML UDC OROPHARYNG SCH ×2 (09:29→20:24)
[2018-08-17 09:39] LABS: Alanine Aminotransferase 15 U/L (12-78); Albumin 2.6 g/dL (3.4-5.0); Alkaline Phosphatase 52 U/L (45-117); Anion Gap 2 meq/L (5-15); Aspartate Aminotransferase 12 U/L (15-37); Blood Urea Nitrogen 18 mg/dL (7-18); Carbon Dioxide 38.7 meq/L (21.0-32.0); Chloride 103 meq/L (98-107); Glomerular Filtration Rate 73 mL/min (>89); Glucose,Random 102 mg/dL (74-106); Magnesium 2.4 mg/dL (1.5-2.5); Potassium 3.8 meq/L (3.5-5.1); Sodium 144 meq/L (136-145)
[2018-08-17] MEDS ORDERED: Pharmacy Ordered Lab Info OTHER ONE (09:45)
[2018-08-17] MEDS: amLODIPine 5 MG Tablet PO SCH (10:20)
[2018-08-17] MEDS: Vancomycin Inj 1,750 MG in Sodium Chlor 0.9% Inj 500 ML IV.SIG SCH (11:31)
--- NOTE | 2018-08-17 17:16 | P.PN ---
Subjective Interval history: ALERT NAD UP IN CHAIR Physical Exam Vital signs: Vital Signs 08/16/18 20:00 08/16/18 20:07 08/16/18 22:14 Temperature 99.7 F H Pulse Rate 77 97 H Respiratory Rate 19 18 Blood Pressure 164/79 H Pulse Oximetry 99 96 08/17/18 00:00 08/17/18 00:15 08/17/18 04:20 Temperature 98.3 F Pulse Rate 68 Respiratory Rate 18 Blood Pressure 155/68 H Pulse Oximetry 99 96 96 08/17/18 08:00 08/17/18 08:36 08/17/18 08:37 Temperature 98 F Pulse Rate 66 65 Respiratory Rate 18 20 Blood Pressure 143/63 H Pulse Oximetry 97 96 08/17/18 12:00 08/17/18 16:00 Temperature 98.1 F 98.5 F Pulse Rate 82 77 Respiratory Rate 20 18 Blood Pressure 150/65 H 128/71 Pulse Oximetry 96 96 Intake & Output 08/16/18 08/17/18 08/17/18 18:59 06:59 18:59 Intake Total 960 / 960 517.5 / 517.5 517.5 / 517.5 Output Total 1500 / 1500 1000 / 1000 800 / 800 Balance -540 / -540 -482.5 / -482.5 -282.5 / -282.5 Weight 148.1 kg Intake: IV 517.5 / 517.5 517.5 / 517.5 Vancomycin Inj 1,750 MG In NS 517.5 / 517.5 517.5 / 517.5 Inj 500 ML @ 250 mls/hr IV.SIG Q18H [facility] Rx#:[id number] Oral 960 / 960 Output: Urine 1500 / 1500 1000 / 1000 800 / 800 Other: Date of Last Bowel Movement 08/16/18 # Bowel Movements 1 Narrative: GENERAL: No acute distress. SKIN: Warm and dry. HEAD: Atraumatic. Normocephalic. EYES: Pupils equal and round. ENT: No nasal bleeding or discharge. Edentulous NECK: Trachea midline. No JVD. CARDIOVASCULAR: Regular rate and rhythm. No murmur appreciated. Left upper chest AICD in place. RESPIRATORY: Decreased breath sounds bilateral, no wheezing or crackles. GASTROINTESTINAL: Abdomen soft, non-tender, nondistended. Hepatic and splenic unable to palpate MUSCULOSKELETAL: No obvious deformities. No clubbing, Edema 1+ - Urinary Catheter Management Indwelling Urethral Catheter Cath placed during this visit: yes, but has since been removed by the nurse Reason for continuing: Decision to DC catheter Insertion date: 08/08/18 Insertion time: 11:27 Removal date: 08/10/18 Removal time: 10:00 Results - Labs CBC & Chem 7: 08/17/18 06:38 08/17/18 06:38 Laboratory Results - last 24 hr 08/16/18 08/16/18 08/17/18 21:30 23:58 06:38 WBC 9.0 RBC 3.81 L Hgb 10.5 L Hct 32.7 L MCV 85.8 MCH 27.5 MCHC 32.1 RDW 16.3 Plt Count 166 MPV 9.2 Neut % (Auto) 61.7 Lymph % (Auto) 26.0 [place] % (Auto) 7.8 Eos % (Auto) 4.3 H Baso % (Auto) 0.2 Neut # (Auto) 5.6 Lymph # (Auto) 2.3 [place] # (Auto) 0.7 Eos # (Auto) 0.4 Baso # (Auto) 0.0 WBC Differential . Differential Comment Auto diff final Sodium Potassium Chloride Carbon Dioxide Anion Gap BUN Creatinine Estimated GFR POC Glucose 216 H 207 H Random Glucose Calcium Magnesium Total Bilirubin AST ALT Alkaline Phosphatase Total Protein Albumin 08/17/18 08/17/18 08/17/18 06:38 07:55 12:02 WBC RBC Hgb Hct MCV MCH MCHC RDW Plt Count MPV Neut % (Auto) Lymph % (Auto) [place] % (Auto) Eos % (Auto) Baso % (Auto) Neut # (Auto) Lymph # (Auto) [place] # (Auto) Eos # (Auto) Baso # (Auto) WBC Differential Differential Comment Sodium 144 Potassium 3.8 Chloride 103 Carbon Dioxide 38.7 H Anion Gap 2 L BUN 18 Creatinine 1.05 Estimated GFR 73 L POC Glucose 108 177 H Random Glucose 102 Calcium 8.0 L Magnesium 2.4 Total Bilirubin 0.4 AST 12 L ALT 15 Alkaline Phosphatase 52 Total Protein 6.0 L Albumin 2.6 L - Procedures Endotracheal intubation and Extubation. Assessment and Plan - Plan respiratory failure christine/csa suspect copd morbid obesity plan o2 as needed bronchodilators BIPAP/ SLEEP LOOSE WT PROGRESSIVE AMBULATION
[2018-08-17] MEDS: Zolpidem Tartrate 5 MG Tablet PO PRN (20:23)
[2018-08-18] MEDS: Oral Hygiene Kit OROPHARYNG SCH ×5 (00:30→23:01)
[2018-08-18] MEDS: Artificial Tears Opth Drops 15 ML Bottle EACH EYE SCH ×3 (00:31→16:13)
[2018-08-18] MEDS ORDERED: Pharmacy Ordered Lab Info OTHER ONE (03:45)
[2018-08-18] MEDS: Heparin - SQ 10,000 UNITS/ML Vial SQ SCH ×3 (04:29→20:38)
[2018-08-18] MEDS: Vancomycin Inj 1,750 MG in Sodium Chlor 0.9% Inj 500 ML IV.SIG SCH ×2 (04:29→22:39)
[2018-08-18] MEDS: Chlorhexidine 0.12% Oral Kit 15 ML UDC OROPHARYNG SCH ×2 (07:55→20:35)
[2018-08-18] MEDS: Amiodarone 200 MG Tablet PO SCH ×2 (08:07→20:36)
[2018-08-18] MEDS: Divalproex 500 MG DR Tablet PO SCH ×2 (08:07→20:36)
[2018-08-18] MEDS: Allopurinol 100 MG Tablet PO SCH (08:07)
[2018-08-18] MEDS: Furosemide 20 MG Tablet PO SCH (08:07)
[2018-08-18] MEDS: Famotidine 20 MG Tablet PO SCH ×2 (08:07→20:36)
[2018-08-18] MEDS: Gabapentin 100 MG Capsule PO SCH ×3 (08:07→17:00)
[2018-08-18] MEDS: predniSONE 20 MG Tablet PO SCH (08:07)
[2018-08-18] MEDS: Aspirin 325 MG Tablet PO SCH (08:07)
[2018-08-18] MEDS: Senna/Docusate Sodium 8.6/50 MG Tablet PO SCH ×2 (08:08→20:36)
[2018-08-18] MEDS: Sertraline 50 MG Tablet PO SCH ×2 (08:08→20:36)
[2018-08-18] MEDS: Insulin NovoLOG Aspart Correctional Sugar Inj SQ SCH ×4 (08:08→20:10)
[2018-08-18] MEDS: amLODIPine 5 MG Tablet PO SCH (08:08)
[2018-08-18] MEDS: Sodium Chloride 0.9% 2 ML Flush BID IV.FLUSH SCH ×2 (08:13→22:39)
[2018-08-18] MEDS: Insulin Detemir Inj 1,000 UNIT/10 ML Vial SQ SCH ×2 (08:13→20:36)
--- NOTE | 2018-08-18 10:57 | P.PN ---
Subjective Interval history: This is a pleasant 58 y/o male with Respiratory Failure, Seen in his bedroom stable at this time not doing anything else that can be done at Rehab, awaiting final by customer specialist will go with BiPAP machine at discharge, No nausea, vomit or diarrhea. Physical Exam Vital signs: Vital Signs 08/17/18 12:00 08/17/18 16:00 08/17/18 19:42 Temperature 98.1 F 98.5 F Pulse Rate 82 77 75 Respiratory Rate 20 18 18 Blood Pressure 150/65 H 128/71 Pulse Oximetry 96 96 97 08/17/18 20:00 08/17/18 21:58 08/18/18 00:00 Temperature 98.5 F Pulse Rate 73 97 H Respiratory Rate 18 Blood Pressure 153/73 H Pulse Oximetry 98 97 08/18/18 00:19 08/18/18 03:47 08/18/18 04:00 Temperature 97.3 F L Pulse Rate 76 Respiratory Rate 18 Blood Pressure 113/68 Pulse Oximetry 96 96 99 08/18/18 08:00 08/18/18 08:30 Temperature 98.4 F Pulse Rate 67 76 Respiratory Rate 20 18 Blood Pressure 126/58 L Pulse Oximetry 99 Intake & Output 08/17/18 08/18/18 08/18/18 18:59 06:59 18:59 Intake Total 517.5 / 517.5 480 / 480 517.5 / 517.5 Output Total 800 / 800 600 / 600 Balance -282.5 / -282.5 -120 / -120 517.5 / 517.5 Weight 148.1 kg Intake: IV 517.5 / 517.5 517.5 / 517.5 Vancomycin Inj 1,750 MG In NS 517.5 / 517.5 517.5 / 517.5 Inj 500 ML @ 250 mls/hr IV.SIG Q18H [facility] Rx#:[id number] Oral 480 / 480 Output: Urine 800 / 800 600 / 600 Other: Date of Last Bowel Movement 08/17/18 08/17/18 # Bowel Movements 1 Narrative: GENERAL: Morbid Obesity. No acute distress. SKIN: Warm and dry. HEAD: Atraumatic. Normocephalic. EYES: Pupils equal and round. ENT: No nasal bleeding or discharge. Edentulous NECK: Trachea midline. No JVD. CARDIOVASCULAR: Regular rate and rhythm. No murmur appreciated. Left upper chest AICD in place. RESPIRATORY: Decreased breath sounds bilateral, no wheezing or crackles. GASTROINTESTINAL: Abdomen soft, non-tender, nondistended. Hepatic and splenic unable to palpate MUSCULOSKELETAL: No obvious deformities. No clubbing, Edema 1+ - Urinary Catheter Management Indwelling Urethral Catheter Cath placed during this visit: yes, but has since been removed by the nurse Reason for continuing: Decision to DC catheter Insertion date: 08/08/18 Insertion time: 11:27 Removal date: 08/10/18 Removal time: 10:00 Results - Labs CBC & Chem 7: 08/17/18 06:38 08/17/18 06:38 Laboratory Results - last 24 hr 08/17/18 08/17/18 08/17/18 12:02 17:50 20:20 POC Glucose 177 H 172 H 183 H Vancomycin Trough 08/18/18 08/18/18 04:06 08:06 POC Glucose 121 H Vancomycin Trough 18.0 H - Imaging Head CT 08/08/18 00:00 CONCLUSION: 1. Negative noncontrast head CT. . Chest X-Ray 08/08/18 11:31 CONCLUSION: Tubes and catheters in good position. Mild pulmonary vascular congestion. - Procedures Endotracheal intubation and Extubation. Assessment and Plan - Plan 1. Acute Metabolic Encephalopathy/CO2 Narcosis -resolved Continue Home medicines Depakote and Gabapentin 2. VDRF/Acute Hypercapnic and Hypoxemic respiratory failure-resolved. COPD exacerbation-proving TANA sputum culture with MRSA -continue Bronchodilator, Mucolytic incentive spirometry, p.o. prednisone, Antibiotics ; on IV Vanco; will switch to po within the next 24 hrs if no fever. -Appreciate input from pulmonary medicine, continue with BiPAP as needed, will need Polysomnography as outpatient 3. CAD status post CABG/AICD in place -continue Aspirin, and Amiodarone 4. Morbid Obesity strongly recommended diet and exercise as outpatient 5. Acute on chronic kidney disease - improved. 6. Left lower Lobe Pneumonia on antibiotics as noted above. 7. DM II with hypoglycemic episode today. decreased Levemir to 15 units BID, insulin sliding scale . 8. Hypertension continue Clonidine PRN and Amlodipine 5 mg daily PROPH: -Bilateral lower extremity SCDs. SQH/famotidine Code Status: Full code. Discussed Condition With: Patient and Nurse Miss Bellamy. Discharge Planning: Okay to discharge from medicine standpoint.
--- NOTE | 2018-08-18 17:54 | P.PN ---
Subjective Interval history: ALERT UP IN CHAIR Physical Exam Vital signs: Vital Signs 08/17/18 19:42 08/17/18 20:00 08/17/18 21:58 Temperature 98.5 F Pulse Rate 75 73 Respiratory Rate 18 18 Blood Pressure 153/73 H Pulse Oximetry 97 98 97 08/18/18 00:00 08/18/18 00:19 08/18/18 03:47 Temperature Pulse Rate 97 H Respiratory Rate Blood Pressure Pulse Oximetry 96 96 08/18/18 04:00 08/18/18 08:00 08/18/18 08:30 Temperature 97.3 F L 98.4 F Pulse Rate 76 67 76 Respiratory Rate 18 20 18 Blood Pressure 113/68 126/58 L Pulse Oximetry 99 99 08/18/18 12:00 08/18/18 16:00 Temperature 98.7 F 98.7 F Pulse Rate 78 72 Respiratory Rate 20 20 Blood Pressure 154/69 H 135/63 Pulse Oximetry 93 L 97 Intake & Output 08/17/18 08/18/18 08/18/18 18:59 06:59 18:59 Intake Total 517.5 / 517.5 480 / 480 517.5 / 517.5 Output Total 800 / 800 600 / 600 Balance -282.5 / -282.5 -120 / -120 517.5 / 517.5 Weight 148.1 kg Intake: IV 517.5 / 517.5 517.5 / 517.5 Vancomycin Inj 1,750 MG In NS 517.5 / 517.5 517.5 / 517.5 Inj 500 ML @ 250 mls/hr IV.SIG Q18H ANGÉLICA Rx#:[id number] Oral 480 / 480 Output: Urine 800 / 800 600 / 600 Other: Date of Last Bowel Movement 08/17/18 08/17/18 # Bowel Movements 1 Narrative: GENERAL: Morbid Obesity. No acute distress. SKIN: Warm and dry. HEAD: Atraumatic. Normocephalic. EYES: Pupils equal and round. ENT: No nasal bleeding or discharge. Edentulous NECK: Trachea midline. No JVD. CARDIOVASCULAR: Regular rate and rhythm. No murmur appreciated. Left upper chest AICD in place. RESPIRATORY: Decreased breath sounds bilateral, no wheezing or crackles. GASTROINTESTINAL: Abdomen soft, non-tender, nondistended. Hepatic and splenic unable to palpate MUSCULOSKELETAL: No obvious deformities. No clubbing, Edema 1+ - Urinary Catheter Management Indwelling Urethral Catheter Cath placed during this visit: yes, but has since been removed by the nurse Reason for continuing: Decision to DC catheter Insertion date: 08/08/18 Insertion time: 11:27 Removal date: 08/10/18 Removal time: 10:00 Results - Labs CBC & Chem 7: 08/17/18 06:38 08/17/18 06:38 Laboratory Results - last 24 hr 08/17/18 08/17/18 08/18/18 17:50 20:20 04:06 POC Glucose 172 H 183 H Vancomycin Trough 18.0 H 08/18/18 08/18/18 08/18/18 08:06 12:30 16:58 POC Glucose 121 H 251 H 195 H Vancomycin Trough - Procedures Endotracheal intubation and Extubation. Assessment and Plan - Plan respiratory failure christine/csa suspect copd morbid obesity plan o2 as needed bronchodilators BIPAP/ SLEEP LOOSE WT PROGRESSIVE AMBULATION
[2018-08-18] MEDS: Zolpidem Tartrate 5 MG Tablet PO PRN (20:35)
[2018-08-19] MEDS: Artificial Tears Opth Drops 15 ML Bottle EACH EYE SCH ×3 (00:53→17:04)
[2018-08-19] MEDS: Oral Hygiene Kit OROPHARYNG SCH ×4 (03:55→23:49)
[2018-08-19] MEDS: Heparin - SQ 10,000 UNITS/ML Vial SQ SCH ×3 (05:00→20:11)
--- NOTE | 2018-08-19 09:03 | P.PN ---
Subjective Interval history: This is a pleasant 58 y/o male with Respiratory Failure, Seen in his bedroom stable at this time not doing anything else that can be done at Rehab, awaiting final by administrative specialist will go with BiPAP machine at discharge. 08/19: Seen in his bedroom, no nausea, vomit or diarrhea, was discharged yesterday but not yet found placement awaiting final by brand protection manager, he patient is in a Wheelchair in the room, states will accept Rehab placement. Physical Exam Vital signs: Vital Signs 08/18/18 12:00 08/18/18 16:00 08/18/18 20:00 Temperature 98.7 F 98.7 F 97.4 F L Pulse Rate 78 72 69 Respiratory Rate 20 20 20 Blood Pressure 154/69 H 135/63 159/72 H Pulse Oximetry 93 L 97 98 08/18/18 20:05 08/18/18 22:33 08/19/18 00:00 Temperature 97.9 F Pulse Rate 62 68 Respiratory Rate 24 20 Blood Pressure 137/79 Pulse Oximetry 95 100 08/19/18 08:50 Temperature Pulse Rate 68 Respiratory Rate 20 Blood Pressure Pulse Oximetry Intake & Output 08/18/18 08/19/18 08/19/18 18:59 06:59 18:59 Intake Total 1237.5 / 1237.5 997.5 / 997.5 Output Total 1200 / 1200 600 / 600 Balance 37.5 / 37.5 397.5 / 397.5 Weight 148.1 kg Intake: IV 517.5 / 517.5 517.5 / 517.5 Vancomycin Inj 1,750 MG In NS 517.5 / 517.5 517.5 / 517.5 Inj 500 ML @ 250 mls/hr IV.SIG Q18H ANGÉLICA Rx#:[id number] Oral 720 / 720 480 / 480 Output: Urine 1200 / 1200 600 / 600 Other: Date of Last Bowel Movement 08/18/18 # Bowel Movements 2 Narrative: GENERAL: Morbid Obesity. No acute distress. SKIN: Warm and dry. HEAD: Atraumatic. Normocephalic. EYES: Pupils equal and round. ENT: No nasal bleeding or discharge. Edentulous NECK: Trachea midline. No JVD. CARDIOVASCULAR: Regular rate and rhythm. No murmur appreciated. Left upper chest AICD in place. RESPIRATORY: Decreased breath sounds bilateral, no wheezing or crackles. GASTROINTESTINAL: Abdomen soft, non-tender, nondistended. Hepatic and splenic unable to palpate MUSCULOSKELETAL: No obvious deformities. No clubbing, Edema 1+ - Urinary Catheter Management Indwelling Urethral Catheter Cath placed during this visit: yes, but has since been removed by the nurse Reason for continuing: Decision to DC catheter Insertion date: 08/08/18 Insertion time: 11:27 Removal date: 08/10/18 Removal time: 10:00 Results - Labs CBC & Chem 7: 08/17/18 06:38 08/17/18 06:38 Laboratory Results - last 24 hr 08/18/18 08/18/18 08/18/18 12:30 16:58 20:02 POC Glucose 251 H 195 H 189 H 08/19/18 08/19/18 05:02 07:48 POC Glucose 86 85 - Imaging Head CT 08/08/18 00:00 CONCLUSION: 1. Negative noncontrast head CT. . Chest X-Ray 08/08/18 11:31 CONCLUSION: Tubes and catheters in good position. Mild pulmonary vascular congestion. - Procedures Endotracheal intubation and Extubation. Assessment and Plan - Plan 1. Acute Metabolic Encephalopathy/CO2 Narcosis -resolved Continue Home medicines Depakote and Gabapentin 2. VDRF/Acute Hypercapnic and Hypoxemic respiratory failure-resolved. COPD exacerbation-proving TANA sputum culture with MRSA -continue Bronchodilator, Mucolytic incentive spirometry, p.o. prednisone, Antibiotics ; on IV Vanco; will switch to po within the next 24 hrs if no fever. -Appreciate input from pulmonary medicine, continue with BiPAP as needed, will need Polysomnography as outpatient 3. CAD status post CABG/AICD in place -continue Aspirin, and Amiodarone 4. Morbid Obesity strongly recommended diet and exercise as outpatient 5. Acute on chronic kidney disease - improved. 6. Left lower Lobe Pneumonia, Will remove Vancomycin and start Clindamycin. 7. DM II with hypoglycemic episode today. decreased Levemir to 15 units BID, insulin sliding scale . try to keep the blood sugar below 180 mg/dl. 8. Hypertension controlled. continue Clonidine PRN and Amlodipine 5 mg daily PROPH: -Bilateral lower extremity SCDs. SQH/famotidine Code Status: Full Code. Discussed Condition With: patient and nurse Miss Daugherty Discharge Planning: Okay to discharge from medicine standpoint.
[2018-08-19] MEDS: Sertraline 50 MG Tablet PO SCH ×2 (09:13→20:10)
[2018-08-19] MEDS: amLODIPine 5 MG Tablet PO SCH (09:13)
[2018-08-19] MEDS: Divalproex 500 MG DR Tablet PO SCH ×2 (09:13→20:09)
[2018-08-19] MEDS: Furosemide 20 MG Tablet PO SCH (09:13)
[2018-08-19] MEDS: Famotidine 20 MG Tablet PO SCH ×2 (09:13→20:10)
[2018-08-19] MEDS: Amiodarone 200 MG Tablet PO SCH ×2 (09:13→20:10)
[2018-08-19] MEDS: Gabapentin 100 MG Capsule PO SCH ×3 (09:13→17:04)
[2018-08-19] MEDS: Allopurinol 100 MG Tablet PO SCH (09:13)
[2018-08-19] MEDS: Aspirin 325 MG Tablet PO SCH (09:13)
[2018-08-19] MEDS: Senna/Docusate Sodium 8.6/50 MG Tablet PO SCH ×2 (09:13→20:12)
[2018-08-19] MEDS: predniSONE 20 MG Tablet PO SCH (09:13)
[2018-08-19] MEDS: Insulin NovoLOG Aspart Correctional Sugar Inj SQ SCH ×4 (09:14→20:13)
[2018-08-19] MEDS: Chlorhexidine 0.12% Oral Kit 15 ML UDC OROPHARYNG SCH ×2 (09:14→21:59)
[2018-08-19] MEDS: Insulin Detemir Inj 1,000 UNIT/10 ML Vial SQ SCH ×2 (09:15→20:11)
[2018-08-19] MEDS: Sodium Chloride 0.9% 2 ML Flush BID IV.FLUSH SCH ×2 (09:15→20:12)
--- NOTE | 2018-08-19 15:42 | P.PN ---
Subjective Interval history: alert nad uses bipap Physical Exam Vital signs: Vital Signs 08/18/18 16:00 08/18/18 20:00 08/18/18 20:05 Temperature 98.7 F 97.4 F L Pulse Rate 72 69 62 Respiratory Rate 20 20 24 Blood Pressure 135/63 159/72 H Pulse Oximetry 97 98 08/18/18 22:33 08/19/18 00:00 08/19/18 08:00 Temperature 97.9 F 97.6 F Pulse Rate 68 65 Respiratory Rate 20 16 Blood Pressure 137/79 137/66 Pulse Oximetry 95 100 100 08/19/18 08:50 08/19/18 12:00 Temperature 98.3 F Pulse Rate 68 71 Respiratory Rate 20 16 Blood Pressure 150/67 H Pulse Oximetry 96 Intake & Output 08/18/18 08/19/18 08/19/18 18:59 06:59 18:59 Intake Total 1237.5 / 1237.5 997.5 / 997.5 Output Total 1200 / 1200 600 / 600 Balance 37.5 / 37.5 397.5 / 397.5 Weight 148.1 kg Intake: IV 517.5 / 517.5 517.5 / 517.5 Vancomycin Inj 1,750 MG In NS 517.5 / 517.5 517.5 / 517.5 Inj 500 ML @ 250 mls/hr IV.SIG Q18H ANGÉLICA Rx#:[id number] Oral 720 / 720 480 / 480 Output: Urine 1200 / 1200 600 / 600 Other: Date of Last Bowel Movement 08/18/18 # Bowel Movements 2 Narrative: GENERAL: Morbid Obesity. No acute distress. SKIN: Warm and dry. HEAD: Atraumatic. Normocephalic. EYES: Pupils equal and round. ENT: No nasal bleeding or discharge. Edentulous NECK: Trachea midline. No JVD. CARDIOVASCULAR: Regular rate and rhythm. No murmur appreciated. Left upper chest AICD in place. RESPIRATORY: Decreased breath sounds bilateral, no wheezing or crackles. GASTROINTESTINAL: Abdomen soft, non-tender, nondistended. Hepatic and splenic unable to palpate MUSCULOSKELETAL: No obvious deformities. No clubbing, Edema 1+ - Urinary Catheter Management Indwelling Urethral Catheter Cath placed during this visit: yes, but has since been removed by the nurse Reason for continuing: Decision to DC catheter Insertion date: 08/08/18 Insertion time: 11:27 Removal date: 08/10/18 Removal time: 10:00 Results - Labs CBC & Chem 7: 08/17/18 06:38 08/17/18 06:38 Laboratory Results - last 24 hr 08/18/18 08/18/18 08/19/18 16:58 20:02 05:02 POC Glucose 195 H 189 H 86 08/19/18 08/19/18 07:48 12:23 POC Glucose 85 176 H - Procedures Endotracheal intubation and Extubation. Assessment and Plan - Plan respiratory failure christine/csa suspect copd morbid obesity plan o2 as needed bronchodilators BIPAP/ SLEEP LOOSE WT PROGRESSIVE AMBULATION
[2018-08-19] MEDS: Zolpidem Tartrate 5 MG Tablet PO PRN (20:10)
[2018-08-20] MEDS: Artificial Tears Opth Drops 15 ML Bottle EACH EYE SCH ×3 (01:22→17:34)
[2018-08-20] MEDS: Heparin - SQ 10,000 UNITS/ML Vial SQ SCH ×3 (05:04→21:27)
[2018-08-20] MEDS: Oral Hygiene Kit OROPHARYNG SCH ×3 (05:05→17:34)
[2018-08-20] MEDS: Aspirin 325 MG Tablet PO SCH (09:18)
[2018-08-20] MEDS: Furosemide 20 MG Tablet PO SCH (09:18)
[2018-08-20] MEDS: Famotidine 20 MG Tablet PO SCH ×2 (09:18→21:27)
[2018-08-20] MEDS: Senna/Docusate Sodium 8.6/50 MG Tablet PO SCH ×2 (09:18→21:27)
[2018-08-20] MEDS: predniSONE 20 MG Tablet PO SCH (09:18)
[2018-08-20] MEDS: Allopurinol 100 MG Tablet PO SCH (09:18)
[2018-08-20] MEDS: Gabapentin 100 MG Capsule PO SCH ×3 (09:18→17:34)
[2018-08-20] MEDS: amLODIPine 5 MG Tablet PO SCH (09:19)
[2018-08-20] MEDS: Sertraline 50 MG Tablet PO SCH ×2 (09:19→21:26)
[2018-08-20] MEDS: Amiodarone 200 MG Tablet PO SCH ×2 (09:19→21:27)
[2018-08-20] MEDS: Insulin NovoLOG Aspart Correctional Sugar Inj SQ SCH ×4 (09:20→21:27)
[2018-08-20] MEDS: Insulin Detemir Inj 1,000 UNIT/10 ML Vial SQ SCH ×2 (09:20→21:28)
[2018-08-20] MEDS: Sodium Chloride 0.9% 2 ML Flush BID IV.FLUSH SCH ×2 (09:20→21:27)
[2018-08-20] MEDS: Chlorhexidine 0.12% Oral Kit 15 ML UDC OROPHARYNG SCH ×2 (09:20→21:27)
[2018-08-20] MEDS: Divalproex 500 MG DR Tablet PO SCH ×2 (09:31→21:26)
[2018-08-20] MEDS ORDERED: amLODIPine 5 MG Tablet PO ONE (11:55)
--- NOTE | 2018-08-20 12:05 | P.PN ---
Subjective Interval history: This is a pleasant 58 y/o male with Respiratory Failure, Seen in his bedroom stable at this time not doing anything else that can be done at Rehab, awaiting final by business specialist will go with BiPAP machine at discharge. 08/19: Seen in his bedroom, was discharged yesterday but not yet found placement awaiting final by manager home improvement, he patient is in a Wheelchair in the room, states will accept Rehab placement. 08/20: Stable on his chronic condition, no nausea, vomit or diarrhea, awaiting for Placement. Physical Exam Vital signs: Vital Signs 08/19/18 12:00 08/19/18 16:00 08/19/18 20:00 Temperature 98.3 F 99.8 F H 98.4 F Pulse Rate 71 66 67 Respiratory Rate 16 16 17 Blood Pressure 150/67 H 128/60 152/64 H Pulse Oximetry 96 97 95 08/19/18 20:22 08/19/18 23:33 08/20/18 00:00 Temperature 97.5 F L Pulse Rate 89 65 Respiratory Rate 22 18 Blood Pressure 158/77 H Pulse Oximetry 98 99 96 08/20/18 08:00 08/20/18 08:38 Temperature 97.8 F Pulse Rate 62 70 Respiratory Rate 18 20 Blood Pressure 148/77 H Pulse Oximetry 99 Intake & Output 08/19/18 08/20/18 08/20/18 18:59 06:59 18:59 Intake Total 420 / 420 Output Total 600 / 600 Balance -180 / -180 Weight 49.9 kg Intake: Oral 420 / 420 Output: Urine 600 / 600 Other: # Voids 2 Date of Last Bowel Movement 08/19/18 Narrative: GENERAL: Morbid Obesity. No acute distress. SKIN: Warm and dry. HEAD: Atraumatic. Normocephalic. EYES: Pupils equal and round. ENT: No nasal bleeding or discharge. Edentulous NECK: Trachea midline. No JVD. CARDIOVASCULAR: Regular rate and rhythm. No murmur appreciated. Left upper chest AICD in place. RESPIRATORY: Decreased breath sounds bilateral, no wheezing or crackles. GASTROINTESTINAL: Abdomen soft, non-tender, nondistended. Hepatic and splenic unable to palpate MUSCULOSKELETAL: No obvious deformities. No clubbing, Edema 1+ - Urinary Catheter Management Indwelling Urethral Catheter Cath placed during this visit: yes, but has since been removed by the nurse Reason for continuing: Decision to DC catheter Insertion date: 08/08/18 Insertion time: 11:27 Removal date: 08/10/18 Removal time: 10:00 Results - Labs CBC & Chem 7: 08/17/18 06:38 08/17/18 06:38 Laboratory Results - last 24 hr 08/19/18 08/19/18 08/19/18 12:23 17:03 19:15 POC Glucose 176 H 229 H 291 H 08/20/18 07:30 POC Glucose 86 - Imaging Head CT 08/08/18 00:00 CONCLUSION: 1. Negative noncontrast head CT. . Chest X-Ray 08/08/18 11:31 CONCLUSION: Tubes and catheters in good position. Mild pulmonary vascular congestion. - Procedures Endotracheal intubation and Extubation. Assessment and Plan - Plan 1. Acute Metabolic Encephalopathy/CO2 Narcosis -resolved Continue Home medicines Depakote and Gabapentin 2. VDRF/Acute Hypercapnic and Hypoxemic respiratory failure-resolved. COPD exacerbation-proving TANA sputum culture with MRSA -continue Bronchodilator, Mucolytic incentive spirometry, p.o. prednisone, Antibiotics ; on IV Vanco; will switch to po within the next 24 hrs if no fever. -Appreciate input from pulmonary medicine, continue with BiPAP as needed, will need Polysomnography as outpatient 3. CAD status post CABG/AICD in place -continue Aspirin, and Amiodarone 4. Morbid Obesity strongly recommended diet and exercise as outpatient 5. Acute on chronic kidney disease - improved. 6. Left lower Lobe Pneumonia, Will remove Vancomycin and start Clindamycin. 7. DM II with hypoglycemic episode today. decreased Levemir to 15 units BID, insulin sliding scale . try to keep the blood sugar below 180 mg/dl. 8. Hypertension Uncontrolled increased Amlodipine to 10 mg daily continue Clonidine PRN PROPH: -Bilateral lower extremity SCDs. SQH/famotidine Code Status: Full code. Discussed Condition With: Pateint and Nurse Miss Daugherty Discharge Planning: Discharged awaiting for manager home improvementmanager gas.
--- NOTE | 2018-08-20 14:38 | P.PN ---
Subjective Interval history: ALERT NAD UP IN CHAIR Physical Exam Vital signs: Vital Signs 08/19/18 16:00 08/19/18 20:00 08/19/18 20:22 Temperature 99.8 F H 98.4 F Pulse Rate 66 67 89 Respiratory Rate 16 17 22 Blood Pressure 128/60 152/64 H Pulse Oximetry 97 95 98 08/19/18 23:33 08/20/18 00:00 08/20/18 08:00 Temperature 97.5 F L 97.8 F Pulse Rate 65 62 Respiratory Rate 18 18 Blood Pressure 158/77 H 148/77 H Pulse Oximetry 99 96 99 08/20/18 08:38 08/20/18 12:00 Temperature 97.9 F Pulse Rate 70 76 Respiratory Rate 20 18 Blood Pressure 147/74 H Pulse Oximetry 98 Intake & Output 08/19/18 08/20/18 08/20/18 18:59 06:59 18:59 Intake Total 420 / 420 Output Total 600 / 600 Balance -180 / -180 Weight 49.9 kg Intake: Oral 420 / 420 Output: Urine 600 / 600 Other: # Voids 2 Date of Last Bowel Movement 08/19/18 Narrative: GENERAL: Morbid Obesity. No acute distress. SKIN: Warm and dry. HEAD: Atraumatic. Normocephalic. EYES: Pupils equal and round. ENT: No nasal bleeding or discharge. Edentulous NECK: Trachea midline. No JVD. CARDIOVASCULAR: Regular rate and rhythm. No murmur appreciated. Left upper chest AICD in place. RESPIRATORY: Decreased breath sounds bilateral, no wheezing or crackles. GASTROINTESTINAL: Abdomen soft, non-tender, nondistended. Hepatic and splenic unable to palpate MUSCULOSKELETAL: No obvious deformities. No clubbing, Edema 1+ - Urinary Catheter Management Indwelling Urethral Catheter Cath placed during this visit: yes, but has since been removed by the nurse Reason for continuing: Decision to DC catheter Insertion date: 08/08/18 Insertion time: 11:27 Removal date: 08/10/18 Removal time: 10:00 Results - Labs CBC & Chem 7: 08/17/18 06:38 08/17/18 06:38 Laboratory Results - last 24 hr 08/19/18 08/19/18 08/20/18 17:03 19:15 07:30 POC Glucose 229 H 291 H 86 08/20/18 12:06 POC Glucose 206 H - Procedures Endotracheal intubation and Extubation. Assessment and Plan - Plan respiratory failure christine/csa suspect copd morbid obesity plan o2 as needed bronchodilators BIPAP/ SLEEP LOOSE WT PROGRESSIVE AMBULATION
[2018-08-20] MEDS: Zolpidem Tartrate 5 MG Tablet PO PRN (21:27)
[2018-08-21] MEDS: Artificial Tears Opth Drops 15 ML Bottle EACH EYE SCH ×3 (01:29→16:01)
[2018-08-21] MEDS: Oral Hygiene Kit OROPHARYNG SCH ×4 (01:29→16:01)
[2018-08-21] MEDS: Heparin - SQ 10,000 UNITS/ML Vial SQ SCH ×3 (04:23→21:07)
[2018-08-21] MEDS: Chlorhexidine 0.12% Oral Kit 15 ML UDC OROPHARYNG SCH ×2 (07:30→21:17)
[2018-08-21] MEDS: Amiodarone 200 MG Tablet PO SCH ×2 (08:27→21:07)
[2018-08-21] MEDS: Aspirin 325 MG Tablet PO SCH (08:27)
[2018-08-21] MEDS: Senna/Docusate Sodium 8.6/50 MG Tablet PO SCH ×2 (08:28→21:05)
[2018-08-21] MEDS: Divalproex 500 MG DR Tablet PO SCH ×2 (08:28→21:05)
[2018-08-21] MEDS: amLODIPine 5 MG Tablet PO SCH (08:28)
[2018-08-21] MEDS: Allopurinol 100 MG Tablet PO SCH (08:28)
[2018-08-21] MEDS: Sertraline 50 MG Tablet PO SCH ×2 (08:28→21:04)
[2018-08-21] MEDS: Furosemide 20 MG Tablet PO SCH (08:28)
[2018-08-21] MEDS: Famotidine 20 MG Tablet PO SCH ×2 (08:28→21:06)
[2018-08-21] MEDS: Insulin NovoLOG Aspart Correctional Sugar Inj SQ SCH ×4 (08:29→21:10)
[2018-08-21] MEDS: predniSONE 20 MG Tablet PO SCH (08:29)
[2018-08-21] MEDS: Insulin Detemir Inj 1,000 UNIT/10 ML Vial SQ SCH ×2 (08:29→21:11)
[2018-08-21] MEDS: Gabapentin 100 MG Capsule PO SCH ×3 (08:29→17:33)
[2018-08-21] MEDS: Sodium Chloride 0.9% 2 ML Flush BID IV.FLUSH SCH ×2 (08:30→21:18)
--- NOTE | 2018-08-21 13:35 | P.PNIM ---
Subjective Interval history: The patient was ambulating in his wheelchair. He requested a regular diet. He said he is still too weak to go home. He says his breathing is good on the BiPAP. He says his chronic pain is controlled. Discussed with case management. Physical Exam Vital signs: Vital Signs 08/20/18 16:00 08/20/18 20:00 08/20/18 20:11 Temperature 98.1 F 100.4 F H Pulse Rate 63 78 73 Respiratory Rate 18 20 20 Blood Pressure 147/95 H 168/82 H Pulse Oximetry 95 91 L 97 08/21/18 00:00 08/21/18 00:46 08/21/18 07:57 Temperature 97.4 F L Pulse Rate 67 65 Respiratory Rate 19 18 Blood Pressure 153/75 H Pulse Oximetry 97 95 96 08/21/18 08:00 Temperature 98.0 F Pulse Rate 69 Respiratory Rate 18 Blood Pressure 153/86 H Pulse Oximetry 96 Intake & Output 08/20/18 08/21/18 08/21/18 18:59 06:59 18:59 Output Total 1200 / 1200 1300 / 1300 Balance -1200 / -1200 -1300 / -1300 Weight 149.4 kg Output: Urine 1200 / 1200 1300 / 1300 Other: Date of Last Bowel Movement 08/20/18 # Bowel Movements 4 Narrative: GENERAL: Morbid Obese. No acute distress. SKIN: Warm and dry. HEAD: Atraumatic. Normocephalic. EYES: Pupils equal and round. ENT: No nasal bleeding or discharge. Edentulous. NECK: Trachea midline. No JVD. CARDIOVASCULAR: Regular rate and rhythm. No murmur appreciated. Left upper chest AICD in place. RESPIRATORY: Decreased breath sounds bilaterally, no wheezing or crackles. GASTROINTESTINAL: Abdomen soft, non-tender, nondistended. MUSCULOSKELETAL: No obvious deformities. No clubbing, Edema 1+. - Urinary Catheter Management Indwelling Urethral Catheter Cath placed during this visit: yes, but has since been removed by the nurse Reason for continuing: Decision to DC catheter Insertion date: 08/08/18 Insertion time: Removal date: 08/10/18 Removal time: 10:00 Results - Labs CBC & Chem 7: 08/17/18 06:38 08/17/18 06:38 Laboratory Results - last 24 hr 08/20/18 08/20/18 08/21/18 17:05 19:47 08:26 POC Glucose 187 H 251 H 95 08/21/18 13:09 POC Glucose 267 H - Procedures Endotracheal intubation and Extubation. Assessment and Plan - Plan Acute Metabolic Encephalopathy/CO2 Narcosis -resolved -Continue Home medicines Depakote and Gabapentin -BiPAP at night. Acute Hypercapnic and Hypoxemic respiratory failure-resolved. COPD exacerbation-improving TANA sputum culture with MRSA -continue Bronchodilator, Mucolytic incentive spirometry, p.o. prednisone. S/p antibiotics. -Appreciate input from pulmonary medicine, continue with BiPAP as needed, will need Polysomnography as outpatient CAD status post CABG/AICD in place -continue Aspirin, and Amiodarone. Acute on chronic kidney disease - improved DM II -decreased Levemir to 16 units daily, 10 units HS, insulin sliding scale . Hypertension Uncontrolled -increased Amlodipine to 10 mg daily -continue Clonidine PRN PROPH: -Bilateral lower extremity SCDs. SQH/famotidine Discharge Planning: Needs [facility]. OT eval pending.
[2018-08-21] MEDS: Zolpidem Tartrate 5 MG Tablet PO PRN (21:06)
[2018-08-22] MEDS: Artificial Tears Opth Drops 15 ML Bottle EACH EYE SCH ×3 (00:40→17:53)
[2018-08-22] MEDS: Oral Hygiene Kit OROPHARYNG SCH ×4 (00:40→15:12)
[2018-08-22] MEDS: Heparin - SQ 10,000 UNITS/ML Vial SQ SCH ×3 (03:55→21:00)
[2018-08-22 06:44] LABS: Baso % (Auto) 0.5 % (0.0-2.0); Eos # (Auto) 0.1 th/mm3 (0.0-0.4); Eos % (Auto) 1.3 % (0.0-4.0); Hemoglobin 9.7 gm/dL (13.0-17.0); Lymph % (Auto) 24.6 % (9.0-44.0); Mean Corpuscular HGB Conc 31.2 % (32.0-36.0); Mean Corpuscular Hemoglobin 27.2 pg (27.0-34.0); Mean Corpuscular Volume 87.1 fL (80.0-100.0); Mean Platelet Volume 8.8 fL (7.0-11.0); Mono # (Auto) 0.7 th/mm3 (0.0-0.9); Mono % (Auto) 8.3 % (0.0-8.0); Neut # (Auto) 5.4 th/mm3 (1.8-7.7); Neut % (Auto) 65.3 % (16.0-70.0); Platelet Count 150 th/mm3 (150-450); Red Blood Count 3.56 mil/mm3 (4.50-5.90); Red Cell Distribution Width 16.7 % (11.6-17.2); White Blood Count 8.2 th/mm3 (4.0-11.0)
[2018-08-22 07:10] LABS: Calcium 8.3 mg/dL (8.5-10.1); Carbon Dioxide 31.6 meq/L (21.0-32.0); Magnesium 2.3 mg/dL (1.5-2.5); Potassium 4.3 meq/L (3.5-5.1)
[2018-08-22] MEDS: Senna/Docusate Sodium 8.6/50 MG Tablet PO SCH ×2 (08:35→20:59)
[2018-08-22] MEDS: amLODIPine 5 MG Tablet PO SCH (08:35)
[2018-08-22] MEDS: Sertraline 50 MG Tablet PO SCH ×2 (08:35→20:59)
[2018-08-22] MEDS: Aspirin 325 MG Tablet PO SCH (08:35)
[2018-08-22] MEDS: Famotidine 20 MG Tablet PO SCH ×2 (08:35→20:58)
[2018-08-22] MEDS: Amiodarone 200 MG Tablet PO SCH ×2 (08:36→21:00)
[2018-08-22] MEDS: Gabapentin 100 MG Capsule PO SCH ×3 (08:36→17:51)
[2018-08-22] MEDS: Allopurinol 100 MG Tablet PO SCH (08:36)
[2018-08-22] MEDS: Divalproex 500 MG DR Tablet PO SCH ×2 (08:36→20:59)
[2018-08-22] MEDS: Furosemide 20 MG Tablet PO SCH (08:36)
[2018-08-22] MEDS: Chlorhexidine 0.12% Oral Kit 15 ML UDC OROPHARYNG SCH ×2 (08:36→21:00)
[2018-08-22] MEDS: predniSONE 20 MG Tablet PO SCH (08:36)
[2018-08-22] MEDS: Insulin NovoLOG Aspart Correctional Sugar Inj SQ SCH ×4 (08:37→21:04)
[2018-08-22] MEDS: Sodium Chloride 0.9% 2 ML Flush BID IV.FLUSH SCH ×2 (08:37→21:04)
[2018-08-22] MEDS ORDERED: Insulin Detemir Inj 1,000 UNIT/10 ML Vial SQ SCH (09:00)
--- NOTE | 2018-08-22 15:30 | P.PNIM ---
Subjective Interval history: The pt was using his BiPAP. He understood that he would likely be going home on Monday. He had no acute complaints. He said he didn't work with PT today. Discussed with nursing. Has been having bowel movements. Physical Exam Vital signs: Vital Signs 08/21/18 16:20 08/21/18 19:24 08/21/18 19:43 Temperature 98.4 F 97.6 F Pulse Rate 73 70 90 Respiratory Rate 16 20 18 Blood Pressure 161/71 H 154/67 H Pulse Oximetry 92 L 97 08/21/18 21:48 08/21/18 21:52 08/21/18 23:38 Temperature Pulse Rate Respiratory Rate Blood Pressure Pulse Oximetry 98 98 97 08/22/18 04:35 08/22/18 08:00 08/22/18 09:03 Temperature 97.7 F Pulse Rate 70 75 Respiratory Rate 18 20 Blood Pressure 164/83 H Pulse Oximetry 97 100 98 08/22/18 12:00 Temperature 98.9 F Pulse Rate 71 Respiratory Rate 18 Blood Pressure 173/85 H Pulse Oximetry 98 Intake & Output 08/21/18 08/22/18 08/22/18 18:59 06:59 18:59 Output Total 1275 / 1275 Balance -1275 / -1275 Output: Urine 1275 / 1275 Other: Date of Last Bowel Movement 08/20/18 # Bowel Movements 3 Narrative: GENERAL: Morbidly Obese. No acute distress. SKIN: Warm and dry. HEAD: Atraumatic. Normocephalic. EYES: Pupils equal and round. ENT: No nasal bleeding or discharge. Edentulous. NECK: Trachea midline. No JVD. CARDIOVASCULAR: Regular rate and rhythm. No murmur appreciated. Left upper chest AICD in place. RESPIRATORY: Decreased breath sounds bilaterally, no wheezing or crackles. GASTROINTESTINAL: Abdomen soft, non-tender, nondistended. MUSCULOSKELETAL: No obvious deformities. No clubbing, Edema 2+. - Urinary Catheter Management Indwelling Urethral Catheter Cath placed during this visit: yes, but has since been removed by the nurse Reason for continuing: Decision to DC catheter Insertion date: 08/08/18 Insertion time: 11: Removal date: 08/10/18 Removal time: 10:00 Results - Labs CBC & Chem 7: 08/22/18 06:12 11/28/18 06:12 Laboratory Results - last 24 hr 08/21/18 08/21/18 08/22/18 17:06 20:18 06:12 WBC 8.2 RBC 3.56 L Hgb 9.7 L Hct 31.0 L MCV 87.1 MCH 27.2 MCHC 31.2 L RDW 16.7 Plt Count 150 MPV 8.8 Neut % (Auto) 65.3 Lymph % (Auto) 24.6 Preston % (Auto) 8.3 H Eos % (Auto) 1.3 Baso % (Auto) 0.5 Neut # (Auto) 5.4 Lymph # (Auto) 2.0 Preston # (Auto) 0.7 Eos # (Auto) 0.1 Baso # (Auto) 0.0 WBC Differential . Differential Comment Auto diff final Sodium Potassium Chloride Carbon Dioxide Anion Gap BUN Creatinine Estimated GFR POC Glucose 226 H 187 H Random Glucose Calcium Magnesium 08/22/18 08/22/18 08/22/18 06:12 08:35 12:07 WBC RBC Hgb Hct MCV MCH MCHC RDW Plt Count MPV Neut % (Auto) Lymph % (Auto) Preston % (Auto) Eos % (Auto) Baso % (Auto) Neut # (Auto) Lymph # (Auto) Preston # (Auto) Eos # (Auto) Baso # (Auto) WBC Differential Differential Comment Sodium 141 Potassium 4.3 Chloride 104 Carbon Dioxide 31.6 Anion Gap 5 BUN 22 H Creatinine 1.09 Estimated GFR 70 L POC Glucose 142 H 281 H Random Glucose 165 H Calcium 8.3 L Magnesium 2.3 - Procedures Endotracheal intubation and Extubation. Assessment and Plan - Plan Acute Metabolic Encephalopathy/CO2 Narcosis -resolved -Continue Home medicines Depakote and Gabapentin. -BiPAP as needed. Acute Hypercapnic and Hypoxemic respiratory failure-resolved. COPD exacerbation-improving TANA sputum culture with MRSA -continue Bronchodilator, Mucolytic incentive spirometry, p.o. prednisone. S/p antibiotics. -Appreciate input from pulmonary medicine, continue with BiPAP as needed, will need polysomnography as outpatient. CAD status post CABG/AICD in place -continue aspirin and Amiodarone. Acute on chronic kidney disease - improved DM II -Levemir 18 units daily, 10 units HS, insulin sliding scale. Hypertension Uncontrolled -increased Amlodipine to 10 mg daily -added lisinopril 10 mg daily. -continue Clonidine PRN PROPH: -Bilateral lower extremity SCDs. SQH/famotidine Discharge Planning: Needs HHC. OT eval pending.
[2018-08-22] MEDS: Lisinopril 10 MG Tablet PO SCH (17:51)
--- NOTE | 2018-08-22 18:27 | P.PN ---
Subjective Interval history: ALERT NAD UP IN CHAIR Physical Exam Vital signs: Vital Signs 08/21/18 19:24 08/21/18 19:43 08/21/18 21:48 Temperature 97.6 F Pulse Rate 70 90 Respiratory Rate 20 18 Blood Pressure 154/67 H Pulse Oximetry 92 L 97 98 08/21/18 21:52 08/21/18 23:38 08/22/18 04:35 Temperature Pulse Rate Respiratory Rate Blood Pressure Pulse Oximetry 98 97 97 08/22/18 08:00 08/22/18 09:03 08/22/18 12:00 Temperature 97.7 F 98.9 F Pulse Rate 70 75 71 Respiratory Rate 18 20 18 Blood Pressure 164/83 H 173/85 H Pulse Oximetry 100 98 98 08/22/18 16:00 Temperature 98.8 F Pulse Rate 75 Respiratory Rate 19 Blood Pressure 167/92 H Pulse Oximetry 96 Intake & Output 08/21/18 08/22/18 08/22/18 18:59 06:59 18:59 Output Total 1275 / 1275 Balance -1275 / -1275 Output: Urine 1275 / 1275 Other: Date of Last Bowel Movement 08/20/18 # Bowel Movements 3 Narrative: GENERAL: Morbidly Obese. No acute distress. SKIN: Warm and dry. HEAD: Atraumatic. Normocephalic. EYES: Pupils equal and round. ENT: No nasal bleeding or discharge. Edentulous. NECK: Trachea midline. No JVD. CARDIOVASCULAR: Regular rate and rhythm. No murmur appreciated. Left upper chest AICD in place. RESPIRATORY: Decreased breath sounds bilaterally, no wheezing or crackles. GASTROINTESTINAL: Abdomen soft, non-tender, nondistended. MUSCULOSKELETAL: No obvious deformities. No clubbing, Edema 2+. - Urinary Catheter Management Indwelling Urethral Catheter Cath placed during this visit: yes, but has since been removed by the nurse Reason for continuing: Decision to DC catheter Insertion date: 08/08/18 Insertion time: 11: Removal date: 08/10/18 Removal time: 10:00 Results - Labs CBC & Chem 7: 08/22/18 06:12 08/22/18 06:12 Laboratory Results - last 24 hr 08/21/18 08/22/18 08/22/18 20:18 06:12 06:12 WBC 8.2 RBC 3.56 L Hgb 9.7 L Hct 31.0 L MCV 87.1 MCH 27.2 MCHC 31.2 L RDW 16.7 Plt Count 150 MPV 8.8 Neut % (Auto) 65.3 Lymph % (Auto) 24.6 [place] % (Auto) 8.3 H Eos % (Auto) 1.3 Baso % (Auto) 0.5 Neut # (Auto) 5.4 Lymph # (Auto) 2.0 [place] # (Auto) 0.7 Eos # (Auto) 0.1 Baso # (Auto) 0.0 WBC Differential . Differential Comment Auto diff final Sodium 141 Potassium 4.3 Chloride 104 Carbon Dioxide 31.6 Anion Gap 5 BUN 22 H Creatinine 1.09 Estimated GFR 70 L POC Glucose 187 H Random Glucose 165 H Calcium 8.3 L Magnesium 2.3 08/22/18 08/22/18 08/22/18 08:35 12:07 17:52 WBC RBC Hgb Hct MCV MCH MCHC RDW Plt Count MPV Neut % (Auto) Lymph % (Auto) [place] % (Auto) Eos % (Auto) Baso % (Auto) Neut # (Auto) Lymph # (Auto) [place] # (Auto) Eos # (Auto) Baso # (Auto) WBC Differential Differential Comment Sodium Potassium Chloride Carbon Dioxide Anion Gap BUN Creatinine Estimated GFR POC Glucose 142 H 281 H 205 H Random Glucose Calcium Magnesium - Procedures Endotracheal intubation and Extubation. Assessment and Plan - Plan respiratory failure christine/csa suspect copd morbid obesity plan o2 as needed bronchodilators BIPAP/ SLEEP LOOSE WT PROGRESSIVE AMBULATION
[2018-08-22] MEDS: Zolpidem Tartrate 5 MG Tablet PO PRN (20:59)
[2018-08-22] MEDS: Insulin Detemir Inj 1,000 UNIT/10 ML Vial SQ SCH (21:00)
[2018-08-23] MEDS: Oral Hygiene Kit OROPHARYNG SCH ×2 (01:31→04:26)
[2018-08-23] MEDS: Artificial Tears Opth Drops 15 ML Bottle EACH EYE SCH ×3 (01:31→17:17)
[2018-08-23] MEDS: Heparin - SQ 10,000 UNITS/ML Vial SQ SCH ×3 (04:26→20:53)
[2018-08-23] MEDS: Aspirin 325 MG Tablet PO SCH (09:53)
[2018-08-23] MEDS: Insulin NovoLOG Aspart Correctional Sugar Inj SQ SCH ×4 (09:53→20:55)
[2018-08-23] MEDS: Allopurinol 100 MG Tablet PO SCH (09:54)
[2018-08-23] MEDS: Sodium Chloride 0.9% 2 ML Flush BID IV.FLUSH SCH ×2 (09:54→20:56)
[2018-08-23] MEDS: Senna/Docusate Sodium 8.6/50 MG Tablet PO SCH ×2 (09:54→20:54)
[2018-08-23] MEDS: Famotidine 20 MG Tablet PO SCH ×2 (09:54→20:54)
[2018-08-23] MEDS: predniSONE 20 MG Tablet PO SCH (09:54)
[2018-08-23] MEDS: Lisinopril 10 MG Tablet PO SCH (09:54)
[2018-08-23] MEDS: Furosemide 20 MG Tablet PO SCH (09:54)
[2018-08-23] MEDS: Insulin Detemir Inj 1,000 UNIT/10 ML Vial SQ SCH ×2 (09:54→20:55)
[2018-08-23] MEDS: Divalproex 500 MG DR Tablet PO SCH ×2 (09:54→20:53)
[2018-08-23] MEDS: Gabapentin 100 MG Capsule PO SCH ×3 (09:54→17:16)
[2018-08-23] MEDS: Sertraline 50 MG Tablet PO SCH ×2 (09:54→20:54)
[2018-08-23] MEDS: Amiodarone 200 MG Tablet PO SCH ×2 (09:54→20:54)
[2018-08-23] MEDS: amLODIPine 5 MG Tablet PO SCH (09:54)
[2018-08-23] MEDS ORDERED: Mineral Oil Enema 118 ML Bottle RECTAL ONE (10:26)
[2018-08-23] MEDS: Chlorhexidine 0.12% Oral Kit 15 ML UDC OROPHARYNG SCH (10:31)
--- NOTE | 2018-08-23 15:14 | P.PNIM ---
Subjective Interval history: The patient had a controlled fall while working with physical therapy on the stairs. He said he had to slowly lean back against the wall and go down. He says once he is in his house tomorrow he should okay. Discussed with nursing and case management. Physical Exam Vital signs: Vital Signs 08/22/18 16:00 08/22/18 19:48 08/22/18 19:49 Temperature 98.8 F Pulse Rate 75 75 Respiratory Rate 19 20 Blood Pressure 167/92 H Pulse Oximetry 96 96 08/22/18 21:44 08/23/18 00:00 08/23/18 01:02 Temperature 97.8 F 97.8 F Pulse Rate 58 L 58 L Respiratory Rate 19 19 Blood Pressure 143/67 H 143/67 H Pulse Oximetry 96 97 97 08/23/18 07:37 08/23/18 08:00 08/23/18 12:00 Temperature 97.7 F 98.9 F Pulse Rate 67 58 L 71 Respiratory Rate 20 18 18 Blood Pressure 120/60 146/76 H Pulse Oximetry 98 100 97 Intake & Output 08/22/18 08/23/18 08/23/18 18:59 06:59 18:59 Intake Total 960 / 960 Output Total 1250 / 1250 400 / 400 Balance -290 / -290 -400 / -400 Weight 148.2 kg Intake: Oral 960 / 960 Output: Urine 1250 / 1250 400 / 400 Other: # Voids 1 Date of Last Bowel Movement 08/22/18 08/20/18 # Bowel Movements 1 Narrative: GENERAL: Morbidly Obese. No acute distress. SKIN: Warm and dry. HEAD: Atraumatic. Normocephalic. EYES: Pupils equal and round. ENT: No nasal bleeding or discharge. Edentulous. NECK: Trachea midline. No JVD. CARDIOVASCULAR: Regular rate and rhythm. No murmur appreciated. Left upper chest AICD in place. RESPIRATORY: Decreased breath sounds bilaterally, no wheezing or crackles. GASTROINTESTINAL: Abdomen soft, non-tender, nondistended. MUSCULOSKELETAL: No obvious deformities. No clubbing, Edema 2+. - Urinary Catheter Management Indwelling Urethral Catheter Cath placed during this visit: yes, but has since been removed by the nurse Reason for continuing: Decision to DC catheter Insertion date: 08/08/18 Insertion time: 11: Removal date: 08/10/18 Removal time: 10:00 Results - Labs CBC & Chem 7: 08/22/18 06:12 08/22/18 06:12 Laboratory Results - last 24 hr 08/22/18 08/22/18 08/23/18 17:52 20:18 07:58 POC Glucose 205 H 186 H 106 08/23/18 12:31 POC Glucose 223 H - Procedures Endotracheal intubation and Extubation. Assessment and Plan - Plan Acute Metabolic Encephalopathy/CO2 Narcosis -resolved -Continue Home medicines Depakote and Gabapentin. -BiPAP as needed. Acute Hypercapnic and Hypoxemic respiratory failure-resolved. COPD exacerbation-improving TANA sputum culture with MRSA -continue Bronchodilator, Mucolytic incentive spirometry, p.o. prednisone. S/p antibiotics. -Appreciate input from pulmonary medicine, continue with BiPAP as needed, will need polysomnography as outpatient. CAD status post CABG/AICD in place -continue aspirin and Amiodarone. Acute on chronic kidney disease -improved. DM II -Levemir 18 units daily, 10 units HS, insulin sliding scale. -resume home regimen upon discharge. Hypertension Uncontrolled -increased Amlodipine to 10 mg daily -added lisinopril 10 mg daily. Improved. -continue Clonidine PRN PROPH: -Bilateral lower extremity SCDs. SQH/famotidine Discharge Planning: Needs [facility].
--- NOTE | 2018-08-23 15:48 | P.DCO ---
- Diagnosis (1) Physical deconditioning Status: Acute (2) Obesity Status: Chronic (3) COPD exacerbation Status: Acute - Physical Therapy Order: Evaluate and treat, Improve ambulation, Strength and gait training - Case Management Consult Case Management Consult-Home Health: Yes - Certification I have seen patient Buster Jackson on 08/23/18. My clinical findings support the need for the requested home health care services because: Limited mobility due to disease progression, Deconditioned with increased weakness, Limited ability to care for self, High risk of falls I certify that my clinical findings support that this patient is homebound because: Unsteady gait/balance, Unsafe to leave home unassisted
[2018-08-23] MEDS: Zolpidem Tartrate 5 MG Tablet PO PRN (20:54)
[2018-08-24] MEDS: Artificial Tears Opth Drops 15 ML Bottle EACH EYE SCH (02:19)
[2018-08-24 04:44] VITALS: RESP 18
[2018-08-24] MEDS: Heparin - SQ 10,000 UNITS/ML Vial SQ SCH (05:21)
--- NOTE | 2018-08-24 08:50 | P.PN ---
Subjective Interval history: alert nad sitting , bedside Physical Exam Vital signs: Vital Signs 08/23/18 12:00 08/23/18 16:00 08/23/18 19:20 Temperature 98.9 F 98.4 F Pulse Rate 71 66 77 Respiratory Rate 18 18 18 Blood Pressure 146/76 H 153/74 H Pulse Oximetry 97 96 98 08/23/18 20:00 08/23/18 23:00 08/24/18 00:00 Temperature 97.7 F 97.1 F L Pulse Rate 67 61 Respiratory Rate 20 20 Blood Pressure 127/67 126/57 L Pulse Oximetry 96 96 99 08/24/18 01:00 08/24/18 04:00 08/24/18 04:15 Temperature Pulse Rate Respiratory Rate 18 Blood Pressure Pulse Oximetry 96 97 Intake & Output 08/23/18 08/24/18 08/24/18 18:59 06:59 18:59 Intake Total 716 / 716 420 / 420 Output Total 1150 / 1150 725 / 725 Balance -434 / -434 -305 / -305 Weight 148.4 kg Intake: Oral 716 / 716 420 / 420 Output: Urine 1150 / 1150 725 / 725 Other: Date of Last Bowel Movement 08/20/18 Narrative: GENERAL: Morbidly Obese. No acute distress. SKIN: Warm and dry. HEAD: Atraumatic. Normocephalic. EYES: Pupils equal and round. ENT: No nasal bleeding or discharge. Edentulous. NECK: Trachea midline. No JVD. CARDIOVASCULAR: Regular rate and rhythm. No murmur appreciated. Left upper chest AICD in place. RESPIRATORY: Decreased breath sounds bilaterally, no wheezing or crackles. GASTROINTESTINAL: Abdomen soft, non-tender, nondistended. MUSCULOSKELETAL: No obvious deformities. No clubbing, Edema 2+. - Urinary Catheter Management Indwelling Urethral Catheter Cath placed during this visit: yes, but has since been removed by the nurse Reason for continuing: Decision to DC catheter Insertion date: 08/08/18 Insertion time: 11:27 Removal date: 08/10/18 Removal time: 10:00 Results - Labs CBC & Chem 7: 08/22/18 06:12 08/22/18 06:12 Laboratory Results - last 24 hr 08/23/18 08/23/18 08/23/18 12:31 17:15 20:04 POC Glucose 223 H 255 H 227 H 08/24/18 07:48 POC Glucose 93 - Procedures Endotracheal intubation and Extubation. Assessment and Plan - Plan respiratory failure christine/csa suspect copd morbid obesity plan o2 as needed bronchodilators BIPAP/ SLEEP LOOSE WT PROGRESSIVE AMBULATION
[2018-08-24 08:51] VITALS: O2SAT 96
[2018-08-24] MEDS: Divalproex 500 MG DR Tablet PO SCH (09:06)
[2018-08-24] MEDS: Lisinopril 10 MG Tablet PO SCH (09:06)
[2018-08-24] MEDS: Famotidine 20 MG Tablet PO SCH (09:06)
[2018-08-24] MEDS: Sertraline 50 MG Tablet PO SCH (09:06)
[2018-08-24] MEDS: Amiodarone 200 MG Tablet PO SCH (09:06)
[2018-08-24] MEDS: Gabapentin 100 MG Capsule PO SCH (09:06)
[2018-08-24] MEDS: predniSONE 20 MG Tablet PO SCH (09:07)
[2018-08-24] MEDS: Furosemide 20 MG Tablet PO SCH (09:07)
[2018-08-24] MEDS: amLODIPine 5 MG Tablet PO SCH (09:07)
[2018-08-24] MEDS: Aspirin 325 MG Tablet PO SCH (09:07)
[2018-08-24] MEDS: Senna/Docusate Sodium 8.6/50 MG Tablet PO SCH (09:07)
[2018-08-24] MEDS: Allopurinol 100 MG Tablet PO SCH (09:07)
[2018-08-24] MEDS: Insulin NovoLOG Aspart Correctional Sugar Inj SQ SCH (09:12)
[2018-08-24] MEDS: Insulin Detemir Inj 1,000 UNIT/10 ML Vial SQ SCH (09:14)
[2018-08-24 10:22] VITALS: BP 151/67; PULSE 79; TEMP 97.7
--- NOTE | 2018-08-24 10:37 | P.DS ---
Date of admission: 08/08/18 03:02 Primary care physician: No Primary Care Physician Anticipated date of discharge: 08/24/18 Brief History from admission: 7-year-old male with a past medical history significant for COPD on 2 L nasal cannula, CAD status post CABG, cardiomyopathy and congestive heart failure, TANA , hypertension, hyperlipidemia, gout, chronic kidney disease stage III, diabetes mellitus, history of CVA, bipolar disorder, depression and anxiety presents to the emergency department for the evaluation of shortness of breath. The patient endorses accompanying chest pressure times 2 days with associated nausea and lightheadedness. Denies any fever/chills. Denies increased cough or sputum production. No emesis. No lateralizing signs/symptoms. Patient update on day of discharge: The patient was feeling well and looking forward to going home soon. He said he has people expecting him at home. He wants to make sure he will have help getting over the 3 steps to his house. He had no acute complaints. Discussed with case management. DS: Diagnosis - Discharge Diagnosis (1) Physical deconditioning Status: Acute (2) Obesity Status: Chronic (3) COPD exacerbation Status: Acute DS: Medications - Discharge Medications Prescriptions: clindamycin HCl [Cleocin HCl] 300 mg PO Q6HR #60 cap famotidine 20 mg PO BID #30 tab prednisone 10 mg PO DAILY #35 ml DS: Summary Hospital Course: Acute hypercapnic and hypoxemic respiratory failure/COPD exacerbation/TANA Sputum culture with MRSA. The pt was continued on antibiotics which were changed to PO clindamycin. Pulmonology was consulted. We continued bronchodilators, mucolytics, incentive spirometry and prednisone. He received BiPAP. He will need polysomnography as an outpatient. He will follow up with pulmonology and his PCP. Acute metabolic encephalopathy/CO2 narcosis The pt improved with BiPAP. We resumed home medications including Depakote and gabapentin. Hypertension Uncontrolled We added amlodipine 10 mg daily and lisinopril 10 mg daily while in the hospital. His blood pressure normalized. We weaned down the steroids. He will follow up with his PCP. Deconditioning The pt worked with PT and OT. Case management was consulted. The pt will be set- up with [facility] upon discharge. - Time Spent with Patient Total time spent providing and/or coordinating discharge services: Greater than 30 minutes - Quality: VTE Deep Vein Thrombosis/Pulmonary Embolism Present on Admission: No Exam Vital signs: Vital Signs 08/23/18 12:00 08/23/18 16:00 08/23/18 19:20 Temperature 98.9 F 98.4 F Pulse Rate 71 66 77 Respiratory Rate 18 18 18 Blood Pressure 146/76 H 153/74 H Pulse Oximetry 97 96 98 08/23/18 20:00 08/23/18 23:00 08/24/18 00:00 Temperature 97.7 F 97.1 F L Pulse Rate 67 61 Respiratory Rate 20 20 Blood Pressure 127/67 126/57 L Pulse Oximetry 96 96 99 08/24/18 01:00 08/24/18 04:00 08/24/18 04:15 Temperature Pulse Rate Respiratory Rate 18 Blood Pressure Pulse Oximetry 96 97 08/24/18 08:00 08/24/18 08:50 Temperature 97.7 F Pulse Rate 79 Respiratory Rate 18 Blood Pressure 151/67 H Pulse Oximetry 100 96 Intake & Output 08/23/18 08/24/18 08/24/18 18:59 06:59 18:59 Intake Total 716 / 716 420 / 420 Output Total 1150 / 1150 725 / 725 Balance -434 / -434 -305 / -305 Weight 148.4 kg Intake: Oral 716 / 716 420 / 420 Output: Urine 1150 / 1150 725 / 725 Other: Date of Last Bowel Movement 08/20/18 Results Procedures completed during hospitalization: Endotracheal intubation and Extubation. Labs on day of discharge: Labs from last 24 hours 08/24/18 08/23/18 08/23/18 07:48 20:04 17:15 POC Glucose 93 227 H 255 H 08/23/18 12:31 POC Glucose 223 H - Impressions ITS Impressions Head CT 08/08/18 00:00 CONCLUSION: 1. Negative noncontrast head CT. . Chest X-Ray 08/08/18 11:31 CONCLUSION: Tubes and catheters in good position. Mild pulmonary vascular congestion. Discharge Plan - Discharge Disposition Patient Disposition: /Home Health Service - Discharge Condition Condition: Stable - Discharge Order Discharge Orders: Discharge Order (Routine); Ordered 08/24/18 Ordered By: Jd Cassidy - Discharge Details Anticipated Discharge Date: 08/20/18 Discharge Comment: Follow with PCP in three days - Physicians Team Primary Care Provider: Primary Care Azra,Aby Attending Provider: Jd Cassidy Other Providers: Dimitry Pepper MD ; Rodo Koehler MD
== END 2018-08-24 10:27 | disposition home health service (06) ==
LOC: NEPE 22:00 → NEDA 22:00 → NEDH 08-08 04:45 → HIMC 08-08 14:40 → HCIS 08-12 16:21 → N04 08-14 15:24
PROVIDERS: ADMIT Hospitalist; ATTEND Hospitalist

== ENCOUNTER 2018-09-10 20:13 | Inpatient (IN) ==
--- NOTE | 2018-09-10 20:41 | ED ---
HPI General Chief Complaint: Shortness of Breath/Dyspnea Stated Complaint: Resp Time Seen by Provider: 09/10/18 20:16 Source: patient and EMS Mode of arrival: EMS Limitations: no limitations History of Present Illness HPI narrative: 58 years old male complains of right-sided chest pain cough and congestion and shortness of breath. Patient states that the symptoms started this morning. Patient states that he has productive cough all day today. Patient started having burning sensation right lower rib cage this evening. Patient states that the pain is worse with deep breathing. Patient states that the cough is persistent and productive. Patient denies any fever chills. Patient has history of COPD, chronic kidney disease, bipolar disorder, status post CVA, hypertension, CHF, CAD status post CABG cardiomyopathy, diabetes started with AICD placement. Patient was admitted to [facility] August 08 and discharge August 24 for respiratory failure, COPD exacerbation, acute metabolic encephalopathy, uncontrolled hypertension, deconditioning. EMS was called this evening. Patient was given albuterol with Atrovent unit dose treatment x2 and oxygen on the way to the ED. MD complaint: Reports chest pain STEMI Alert: No Onset (ago): hour(s) Duration: constant Onset: during rest Pain location: Reports right chest Severity: moderate Severity scale (1-10): 7 Quality: Reports sharp Pain radiation: Reports none Relieving factors: nothing Exacerbating factors: inspiration Associated symptoms: Reports cough Treatments prior to arrival chest pain: Reports none Related Data Home Medications Medication Instructions Recorded Confirmed amiodarone 200 mg PO BID 03/24/18 09/10/18 allopurinol 100 mg PO DAILY 08/03/18 09/10/18 aspirin 325 mg PO DAILY 08/03/18 09/10/18 beclomethasone dipropionate [Qvar 1 puff INHALATION Q12H 08/03/18 09/10/18 RediHaler] buspirone 5 mg PO BID 08/03/18 09/10/18 clonidine HCl 0.1 mg PO BID 08/03/18 09/10/18 divalproex [Depakote] 500 mg PO BID 08/03/18 09/10/18 furosemide 20 mg PO DAILY 08/03/18 09/10/18 gabapentin 100 mg PO TID 08/03/18 09/10/18 insulin glargine [Lantus U-100 12 unit SUBCUT BID 08/03/18 09/10/18 Insulin] insulin regular human [Novolin R 1 sliding scale dose SUBCUT UD 08/03/18 Regular U-100 Insuln] sertraline 25 mg PO BID 08/03/18 09/10/18 tamsulosin 0.4 mg PO DAILY 08/03/18 09/10/18 Previous Rx's Medication Instructions Recorded clindamycin HCl [Cleocin HCl] 300 mg PO Q6HR #60 cap 08/20/18 famotidine 20 mg PO BID #30 tab 08/20/18 prednisone 10 mg PO DAILY #35 ml 08/20/18 Allergies Allergy/AdvReac Type Severity Reaction Status Date / Time morphine AdvReac Mild Gastrointestinal Verified 08/03/18 01:50 Upset MRI PRECAUTION AdvReac Severe PACEMAKER Uncoded 03/24/18 12:04 (JLT), BULLET FRAGMENTS IN SINUS CAVITY Review of Systems ROS: all other systems reviewed are negative PMFSH Medical History Medical History Asthma (Acute) Bipolar disorder (Acute) COPD (chronic obstructive pulmonary disease) (Acute) Cardiac defibrillator in place (Acute) Chronic kidney disease, stage III (moderate) (Acute) Congestive heart failure (Acute) Coronary artery disease (Acute) Depression with anxiety (Acute) Diabetes (Acute) Gout (Acute) History of CVA (cerebrovascular accident) (Acute) Hypertension (Acute) MDRO (multiple drug resistant organisms) resistance (Acute ~08/08/18) Surgical History Surgical History AICD (automatic cardioverter/defibrillator) present (Acute) H/O heart bypass surgery (Acute) History of enucleation of right eyeball (Acute) Family History Family History Other Coronary artery disease Diabetes mellitus Social History Social History Substance History: Past History Second Hand Smoke Exposure: No Smoking Status: Never smoker How Often Do You Have a Drink Containing Alcohol: Never Immunization History Tetanus Immunization: Unsure Exam Narrative Exam Narrative: GENERAL: Well-nourished, well-developed patient. SKIN: Focused skin assessment warm/dry. HEAD: Normocephalic. EYES: No scleral icterus. No injection or drainage. NECK: Supple, trachea midline. No JVD or lymphadenopathy. CARDIOVASCULAR: Regular rate and rhythm without murmurs, gallops, or rubs. RESPIRATORY: Breath sounds equal bilaterally. No accessory muscle use. GASTROINTESTINAL: Abdomen soft, non-tender, nondistended. MUSCULOSKELETAL: No cyanosis, or edema. BACK: Nontender without obvious deformity. No CVA tenderness. Neurologic exam normal. Course Initial Documented Vital Signs Temperature 98.6 F 09/10/18 20:18 Pulse Rate 78 09/10/18 20:18 Respiratory Rate 30 H 09/10/18 20:18 Blood Pressure 115/58 L 09/10/18 20:18 Pulse Oximetry 87 L 09/10/18 20:18 Last Documented Vital Signs Temperature 98.6 F 09/10/18 20:18 Pulse Rate 64 09/10/18 23:48 Respiratory Rate 18 09/10/18 23:48 Blood Pressure 126/63 09/10/18 23:00 Pulse Oximetry 92 L 09/10/18 23:38 Medical Decision Making MDM Narrative Medical decision making narrative: 58 years old male with coughing congestion and shortness of breath and right chest wall pain. History of COPD on home O2. History of CAD. Patient care assumed by me Dr. Barrera from Dr. Salazar at 2300. 58-year-old male presents emergency department with shortness of breath history of COPD. D- dimer weakly +0.55, CTA pulmonary embolism has been ordered. Patient appears fairly comfortable but is still tachypneic and has decreased breath sounds additional breathing treatments have been ordered. He also requested something for his burning chest pain. A GI cocktail has been ordered. Patient CT PE protocol negative for PE but does show a small pleural effusion small consolidation in the base of the left lung. Patient started on Rocephin and azithromycin. He still is mildly tachypneic. Think is reasonable to place him in observation status for the night for further treatments monitoring of oxygenation. He is on home O2 2 L. Medical Screen Exam Complete: Yes Emergency Medical Condition: Yes Differential Diagnosis Differential Diagnosis: Differential diagnosis including acute exacerbation COPD , bronchitis, pneumonia, PE, pneumothorax, angina, VT. Lab Data Result diagrams: 09/10/18 20:41 09/10/18 21:41 Lab Results 09/10/18 09/10/18 09/10/18 Range/Units 20:41 20:41 20:41 WBC 4.8 (4.0-11.0) th/mm3 RBC 3.79 L (4.50-5.90) mil/mm3 Hgb 10.1 L (13.0-17.0) gm/dL Hct 32.1 L (39.0-51.0) % MCV 84.8 (80.0-100.0) fL MCH 26.7 L (27.0-34.0) pg MCHC 31.5 L (32.0-36.0) % RDW 16.6 (11.6-17.2) % Plt Count 193 (150-450) th/mm3 MPV 8.3 (7.0-11.0) fL Neut % (Auto) 61.4 (16.0-70.0) % Lymph % (Auto) 24.0 (9.0-44.0) % [place] % (Auto) 9.3 H (0.0-8.0) % Eos % (Auto) 4.6 H (0.0-4.0) % Baso % (Auto) 0.7 (0.0-2.0) % Neut # (Auto) 2.9 (1.8-7.7) th/mm3 Lymph # (Auto) 1.1 (1.0-4.8) th/mm3 [place] # (Auto) 0.4 (0.0-0.9) th/mm3 Eos # (Auto) 0.2 (0.0-0.4) th/mm3 Baso # (Auto) 0.0 (0.0-0.2) th/mm3 WBC Differential . Differential Comment Auto diff final PT 10.0 (9.8-11.6) sec INR 1.0 Ratio APTT 27.1 (23.4-31.7) sec D-Dimer Quant (PE/DVT) 0.55 H (0.00-0.50) mg/L FEU Sodium (136-145) meq/L Potassium (3.5-5.1) meq/L Chloride (98-107) meq/L Carbon Dioxide (21.0-32.0) meq/L Anion Gap (5-15) meq/L BUN (7-18) mg/dL Creatinine (0.60-1.30) mg/dL Estimated GFR (>89) mL/min Random Glucose (74-106) mg/dL Calcium (8.5-10.1) mg/dL Total Bilirubin (0.2-1.0) mg/dL AST (15-37) U/L ALT (12-78) U/L Alkaline Phosphatase (45-117) U/L Total Creatine Kinase (39-308) U/L Troponin I (0.02-0.05) ng/mL B-Natriuretic Peptide 35 (0-100) pg/mL Total Protein (6.4-8.2) g/dL Albumin (3.4-5.0) g/dL Lipase (73-393) U/L //18 Range/Units 21:41 WBC (4.0-11.0) th/mm3 RBC (4.50-5.90) mil/mm3 Hgb (13.0-17.0) gm/dL Hct (39.0-51.0) % MCV (80.0-100.0) fL MCH (27.0-34.0) pg MCHC (32.0-36.0) % RDW (11.6-17.2) % Plt Count (150-450) th/mm3 MPV (7.0-11.0) fL Neut % (Auto) (16.0-70.0) % Lymph % (Auto) (9.0-44.0) % [place] % (Auto) (0.0-8.0) % Eos % (Auto) (0.0-4.0) % Baso % (Auto) (0.0-2.0) % Neut # (Auto) (1.8-7.7) th/mm3 Lymph # (Auto) (1.0-4.8) th/mm3 [place] # (Auto) (0.0-0.9) th/mm3 Eos # (Auto) (0.0-0.4) th/mm3 Baso # (Auto) (0.0-0.2) th/mm3 WBC Differential Differential Comment PT (9.8-11.6) sec INR Ratio APTT (23.4-31.7) sec D-Dimer Quant (PE/DVT) (0.00-0.50) mg/L FEU Sodium 144 (136-145) meq/L Potassium 4.0 (3.5-5.1) meq/L Chloride 100 (98-107) meq/L Carbon Dioxide 38.6 H (21.0-32.0) meq/L Anion Gap 5 (5-15) meq/L BUN 13 (7-18) mg/dL Creatinine 1.30 (0.60-1.30) mg/dL Estimated GFR 57 L (>89) mL/min Random Glucose 113 H (74-106) mg/dL Calcium 8.0 L (8.5-10.1) mg/dL Total Bilirubin 0.3 (0.2-1.0) mg/dL AST 17 (15-37) U/L ALT 21 (12-78) U/L Alkaline Phosphatase 88 (45-117) U/L Total Creatine Kinase 91 (39-308) U/L Troponin I Less than 0.02 L (0.02-0.05) ng/mL B-Natriuretic Peptide (0-100) pg/mL Total Protein 7.0 (6.4-8.2) g/dL Albumin 3.0 L (3.4-5.0) g/dL Lipase 157 (73-393) U/L Imaging Data Radiologist's impression: Chest X-Ray 09/10/18 20:38 CONCLUSION: 1. Moderate cardiomegaly with no evidence of pulmonary edema or acute cardiopulmonary disease. 2. The patient is again noted be status post median sternotomy and a transvenous pacer remains in place. Chest CTA 09/10/18 23:10 CONCLUSION: 1. The study is negative for pulmonary embolism. 2. Left lower lobe consolidation and pleural effusion. There are also scattered areas of infiltrate dependent mid lungs bilaterally. Discharge Plan Discharge Disposition Patient Disposition: ED Admit(ED Internal Use Only) Discharge Condition Condition: Stable Discharge Order Discharge Orders: ED Use Only Admit Order (Routine); Ordered 09/11/18 Ordered By: Nato Barrera Discharge Details Diagnosis: COPD exacerbation Physicians Team ED Provider: Nato Barrera Primary Care Provider: UNKNOWN, Rxs /Orders / Referrals /Forms Prescriptions: No Action amiodarone 200 mg Tablet 200 mg PO BID RF: 0 buspirone 5 mg Tablet 5 mg PO BID RF: 0 clonidine HCl 0.1 mg Tablet 0.1 mg PO BID RF: 0 aspirin 325 mg Tablet 325 mg PO DAILY RF: 0 allopurinol 100 mg Tablet 100 mg PO DAILY RF: 0 divalproex [Depakote] 500 mg Tablet,Delayed Release (Dr/Ec) 500 mg PO BID RF: 0 tamsulosin 0.4 mg Capsule 0.4 mg PO DAILY RF: 0 sertraline 25 mg Tablet 25 mg PO BID RF: 0 furosemide 20 mg Tablet 20 mg PO DAILY RF: 0 gabapentin 100 mg Capsule 100 mg PO TID RF: 0 beclomethasone dipropionate [Qvar RediHaler] 80 mcg/actuation Hfa Aerosol Breath Activated 1 puff INHALATION Q12H RF: 0 insulin glargine [Lantus U-100 Insulin] 100 unit/mL Solution 12 unit SUBCUT BID RF: 0 insulin regular human [Novolin R Regular U-100 Insuln] 100 unit/mL Solution 1 sliding scale dose SUBCUT UD RF: 0 clindamycin HCl [Cleocin HCl] 150 mg Capsule 300 mg PO Q6HR Qty: 60 RF: 0 famotidine 20 mg Tablet 20 mg PO BID Qty: 30 RF: 0 prednisone 5 mg/5 mL Solution 10 mg PO DAILY Qty: 35 RF: 0 Discharge Interventions Interventions: Vital Signs Last Done: 09/10/18 23:00 Status ED Status: Admitted Patient
--- NOTE | 2018-09-10 20:57 | XR ---
EXAM DATE: 09/10/2018 8:54 PM EST AGE/SEX: 58 years / Male INDICATIONS: Chest pain. CLINICAL DATA: This is the patient's initial encounter. Patient reports that signs and symptoms have been present for 1 day and indicates a pain score of 5/10. MEDICAL/SURGICAL HISTORY: . Hypertension. Chronic obstructive pulmonary disease. Congestive hea rt failure. Diabetes. Asthma. CABG. Pacemaker. COMPARISON: [facility] [place], CHEST 1V SINGLE AP, 08/08/2018. . FINDINGS: A single AP view of the chest demonstrates the lungs to be symmetrically aerated without evidence of mass, infiltrate or effusion. The heart size remains moderately enlarged. The patient is status post median sternotomy. The right subclavian transvenous pacer remains in place. Osseous structures are i ntact. CONCLUSION: 1. Moderate cardiomegaly with no evidence of pulmonary edema or acute cardiopulmonary disease. 2. The patient is again noted be status post median sternotomy and a transvenous pacer remains in pl [place]. Electronically signed by: Jd Weber MD Board Certified Radiologist 09/10/2018 8:56 PM EST
[2018-09-10] MEDS ORDERED: MethylPREDNISolone Sod Succinate Inj 125 MG/2 ML Vial IV.PUSH ONE (21:42)
[2018-09-10 22:51] LABS: Baso % (Auto) 0.7 % (0.0-2.0); Eos # (Auto) 0.2 th/mm3 (0.0-0.4); Eos % (Auto) 4.6 % (0.0-4.0); Hematocrit 32.1 % (39.0-51.0); Hemoglobin 10.1 gm/dL (13.0-17.0); Lymph # (Auto) 1.1 th/mm3 (1.0-4.8); Mean Corpuscular HGB Conc 31.5 % (32.0-36.0); Mean Corpuscular Hemoglobin 26.7 pg (27.0-34.0); Mean Corpuscular Volume 84.8 fL (80.0-100.0); Mean Platelet Volume 8.3 fL (7.0-11.0); Mono # (Auto) 0.4 th/mm3 (0.0-0.9); Mono % (Auto) 9.3 % (0.0-8.0); Neut # (Auto) 2.9 th/mm3 (1.8-7.7); Neut % (Auto) 61.4 % (16.0-70.0); Platelet Count 193 th/mm3 (150-450); Red Blood Count 3.79 mil/mm3 (4.50-5.90); Red Cell Distribution Width 16.6 % (11.6-17.2); White Blood Count 4.8 th/mm3 (4.0-11.0)
[2018-09-10 23:02] LABS: Alanine Aminotransferase 21 U/L (12-78); Anion Gap 5 meq/L (5-15); Aspartate Aminotransferase 17 U/L (15-37); Blood Urea Nitrogen 13 mg/dL (7-18); Carbon Dioxide 38.6 meq/L (21.0-32.0); Chloride 100 meq/L (98-107); Glomerular Filtration Rate 57 mL/min (>89); Glucose,Random 113 mg/dL (74-106); Lipase 157 U/L (73-393); Sodium 144 meq/L (136-145)
[2018-09-10 23:04] LABS: Activated Partial Thrombo Time 27.1 sec (23.4-31.7)
[2018-09-10 23:06] LABS: Alkaline Phosphatase 88 U/L (45-117)
[2018-09-10 23:10] LABS: D-Dimer 0.55 mg/L FEU (0.00-0.50)
[2018-09-10] MEDS ORDERED: Aluminum/Magnesium/Simethacone Susp 30 ML UDC PO ONE (23:19)
[2018-09-10 23:25] LABS: Creatine Kinase 91 U/L (39-308)
--- NOTE | 2018-09-10 23:40 | CT ---
EXAM DATE: 09/10/2018 11:31 PM EST AGE/SEX: 58 years / Male INDICATIONS: Right sided chest pain with elevated D-Dimer. CLINICAL DATA: This is the patient's initial encounter. Patient reports that signs and symptoms have been present for 1 day and indicates a pain score of 6/10. MEDICAL/SURGICAL HISTORY: Cardiovascular disease. Hypertension. Diabetes mellitus type II. Asthm a CABG. Pacemaker. RADIATION DOSE: 10.64 CTDI (mGy) COMPARISON: No prior exams available for comparison. TECHNIQUE: Volumetric scanning was performed using a multi-row detector CT scanner during bolus infu baylee of 75 ml Omnipaque 350 (iohexol) nonionic water-soluble contrast as a single exam dose. The codie a was post processed with a variety of visualization algorithms including full volume maximum intensi ty projection and sliding thin slab reformation. Using automated exposure control and adjustment of t he mA and/or kV according to patient size, radiation dose was kept as low as reasonably achievable to obtain optimal diagnostic quality images. DICOM format image data is available electronically for r eview and comparison. FINDINGS: Pulmonary Arteries: No filling defects are seen in the pulmonary arteries out to the subsegmental ve ssels. The left and right pulmonary arteries are normal in diameter. Lung: Subsegmental consolidation in the left lower lobe and scattered areas of infiltrate periphery of the mid lungs bilaterally. Effusion: Moderate size left pleural effusion measuring up to 2.5 cm. Mediastinum: No evidence of mediastinal or hilar adenopathy. Evidence of prior median sternotomy and CABG. Coronary artery calcifications. Cardiac pacer in place. Other: The axilla is unremarkable. CONCLUSION: 1. The study is negative for pulmonary embolism. 2. Left lower lobe consolidation and pleural effusion. There are also scattered areas of infiltrate dependent mid lungs bilaterally. Electronically signed by: Greyson Burns MD Board Certified Radiologist 09/10/2018 11:39 PM EST
[2018-09-11] MEDS ORDERED: Azithromycin Inj 500 MG in Sodium Chlor 0.9% Inj 250 ML IV.SIG ONE (00:24)
[2018-09-11] MEDS ORDERED: Dextrose 50% in Water 50 ML Vial IV.PUSH PRN (01:41)
[2018-09-11] MEDS ORDERED: Bisacodyl 10 MG Supp RECTAL PRN (01:41)
[2018-09-11] MEDS ORDERED: Acetaminophen 325 MG Tablet PO PRN ×2 (01:41→23:09)
--- NOTE | 2018-09-11 01:54 | P.HP ---
History of Present Illness Service: [facility] Primary Care Physician: UNKNOWN History of Present Illness: 58-year-old male with a past medical history significant for COPD on 2 L nasal cannula at home, CAD status post CABG, cardiomyopathy and congestive heart failure, AICD, TANA, hypertension, hyperlipidemia, gout, chronic kidney disease stage III, diabetes mellitus, history of CVA, bipolar disorder and depression presents to the emergency department for the evaluation of shortness of breath. The patient states he became acutely short of breath around 10 AM. He endorses a pleuritic chest pain that is worse with inspiration. He states he has had a cough productive of brown sputum however denies any fevers/chills. No abdominal pain. No nausea/vomiting/diarrhea. No focal neurologic deficits. Review of Systems All other systems reviewed negative except as stated in HPI [facility] - History History Provided By: Patient - Medical History Medical History: Medical History (Last Reviewed 09/11/18 @ 01:45 by Ban Vela MD) Asthma Bipolar disorder COPD (chronic obstructive pulmonary disease) Cardiac defibrillator in place Chronic kidney disease, stage III (moderate) Congestive heart failure Coronary artery disease Depression with anxiety Diabetes Gout History of CVA (cerebrovascular accident) Hypertension MDRO (multiple drug resistant organisms) resistance Onset Date: ~08/08/18 - Surgical History Surgical History: Surgical History (Last Reviewed 09/11/18 @ 01:45 by Ban Vela MD) AICD (automatic cardioverter/defibrillator) present H/O heart bypass surgery History of enucleation of right eyeball - Family History Family History: Family History (Last Reviewed 09/11/18 @ 01:45 by Ban Vela MD) Other Coronary artery disease Diabetes mellitus - Tobacco History Second Hand Smoke Exposure: No Smoking Status: Never smoker - Alcohol History How Often Do You Have a Drink Containing Alcohol: Never - Substance Use History Substance History: Past History - Immunization History Tetanus Immunization: Unsure Medications and Allergies Allergies Allergy/AdvReac Type Severity Reaction Status Date / Time morphine AdvReac Mild Gastrointestinal Verified 08/03/18 01:50 Upset MRI PRECAUTION AdvReac Severe PACEMAKER Uncoded 03/24/18 12:04 (JLT), BULLET FRAGMENTS IN SINUS CAVITY Home Medications Medication Instructions Recorded Confirmed Type amiodarone 200 mg PO BID 03/24/18 09/10/18 History allopurinol 100 mg PO DAILY 08/03/18 09/10/18 History aspirin 325 mg PO DAILY 08/03/18 09/10/18 History beclomethasone dipropionate [Qvar 1 puff INHALATION Q12H 08/03/18 09/10/18 History RediHaler] buspirone 5 mg PO BID 08/03/18 09/10/18 History clonidine HCl 0.1 mg PO BID 08/03/18 09/10/18 History divalproex [Depakote] 500 mg PO BID 08/03/18 09/10/18 History furosemide 20 mg PO DAILY 08/03/18 09/10/18 History gabapentin 100 mg PO TID 08/03/18 09/10/18 History insulin glargine [Lantus U-100 12 unit SUBCUT BID 08/03/18 09/10/18 History Insulin] insulin regular human [Novolin R 1 sliding scale dose SUBCUT UD 08/03/18 History Regular U-100 Insuln] sertraline 25 mg PO BID 08/03/18 09/10/18 History tamsulosin 0.4 mg PO DAILY 08/03/18 09/10/18 History Exam Vital signs: Vital Signs 09/10/18 20:18 09/10/18 20:59 09/10/18 21:55 Temperature 98.6 F Pulse Rate 78 61 61 Respiratory Rate 30 H 25 H 25 H Blood Pressure 115/58 L 115/58 L Pulse Oximetry 87 L 99 09/10/18 23:00 09/10/18 23:38 09/10/18 23:48 Temperature Pulse Rate 64 61 64 Respiratory Rate 20 18 18 Blood Pressure 126/63 Pulse Oximetry 98 92 L 09/11/18 01:33 09/11/18 01:34 Temperature Pulse Rate 82 Respiratory Rate Blood Pressure 152/65 H Pulse Oximetry 95 94 L Intake & Output 09/10/18 09/10/18 09/11/18 06:59 18:59 06:59 Output Total 600 / 600 Balance -600 / -600 Weight 149.685 kg Output: Urine 600 / 600 Other: # Voids 2 Narrative: Gen.: Morbidly obese male lying in bed sleeping in no acute distress Head: Normocephalic. Atraumatic. EENT: Pupils equal round and reactive to light. Nose without drainage. Airway intact. Throat without injection. Cardiovascular: Regular rate and rhythm. No murmurs, rubs or gallops. Respiratory: Very poor air movement. No wheezes or rhonchi. Abdomen: Soft, nontender, nondistended. No peritoneal signs. Musculoskeletal: No gross deformities. No edema. Skin: No obvious rashes or erythema. Neuro: Sensory and motor grossly intact. Cranial nerves II through XII grossly intact. Results - Labs CBC & Chem 7: 09/10/18 20:41 09/10/18 21:41 Labs: Laboratory Results - last 24 hr 09/10/18 09/10/18 09/10/18 20:41 20:41 20:41 WBC 4.8 RBC 3.79 L Hgb 10.1 L Hct 32.1 L MCV 84.8 MCH 26.7 L MCHC 31.5 L RDW 16.6 Plt Count 193 MPV 8.3 Neut % (Auto) 61.4 Lymph % (Auto) 24.0 [place] % (Auto) 9.3 H Eos % (Auto) 4.6 H Baso % (Auto) 0.7 Neut # (Auto) 2.9 Lymph # (Auto) 1.1 [place] # (Auto) 0.4 Eos # (Auto) 0.2 Baso # (Auto) 0.0 WBC Differential . Differential Comment Auto diff final PT 10.0 INR 1.0 APTT 27.1 D-Dimer Quant (PE/DVT) 0.55 H Sodium Potassium Chloride Carbon Dioxide Anion Gap BUN Creatinine Estimated GFR Random Glucose Calcium Total Bilirubin AST ALT Alkaline Phosphatase Total Creatine Kinase Troponin I B-Natriuretic Peptide 35 Total Protein Albumin Lipase 09/10/18 21:41 WBC RBC Hgb Hct MCV MCH MCHC RDW Plt Count MPV Neut % (Auto) Lymph % (Auto) [place] % (Auto) Eos % (Auto) Baso % (Auto) Neut # (Auto) Lymph # (Auto) [place] # (Auto) Eos # (Auto) Baso # (Auto) WBC Differential Differential Comment PT INR APTT D-Dimer Quant (PE/DVT) Sodium 144 Potassium 4.0 Chloride 100 Carbon Dioxide 38.6 H Anion Gap 5 BUN 13 Creatinine 1.30 Estimated GFR 57 L Random Glucose 113 H Calcium 8.0 L Total Bilirubin 0.3 AST 17 ALT 21 Alkaline Phosphatase 88 Total Creatine Kinase 91 Troponin I Less than 0.02 L B-Natriuretic Peptide Total Protein 7.0 Albumin 3.0 L Lipase 157 - Imaging Impressions Chest X-Ray 09/10/18 20:38 CONCLUSION: 1. Moderate cardiomegaly with no evidence of pulmonary edema or acute cardiopulmonary disease. 2. The patient is again noted be status post median sternotomy and a transvenous pacer remains in place. Chest CTA 09/10/18 23:10 CONCLUSION: 1. The study is negative for pulmonary embolism. 2. Left lower lobe consolidation and pleural effusion. There are also scattered areas of infiltrate dependent mid lungs bilaterally. Caprini VTE Risk Assessment Caprini VTE Risk Assessment: No/Low Risk (score <= 1) Caprini Risk Assessment Model: Point Value = 1 Point Value = 2 Point Value = 3 Point Value = 5 Age 41-60 Minor surgery BMI > 25 kg/m2 Swollen legs Varicose veins or History of unexplained or recurrent spontaneous Oral contraceptives or hormone replacement Sepsis (< 1 month) Serious lung disease, including pneumonia (< 1 month) Abnormal pulmonary function Acute myocardial infarction Congestive heart failure (< 1 month) History of inflammatory bowel disease Medical patient at bed rest Age 61-74 Arthroscopic surgery Major open surgery (> 45 min) Laparoscopic surgery (> 45 min) Malignancy Confined to bed (> 72 hours) Immobilizing plaster cast Central venous access Age >= 75 History of VTE Family history of VTE Factor V Leiden Prothrombin [id number] Lupus anticoagulant Anticardiolipin antibodies Elevated serum homocysteine Heparin-induced thrombocytopenia Other congenital or acquired thrombophilia Stroke (< 1 month) Elective arthroplasty Hip, pelvis, or leg fracture Acute spinal cord injury (< 1 month) Prophylaxis Regimen: Total Risk Factor Score Risk Level Prophylaxis Regimen 0-1 Low Early ambulation 2 Moderate Order ONE of the following: *Sequential Compression Device (SCD) *Heparin 5000 units SQ BID 3-4 Higher Order ONE of the following medications: *Heparin 5000 units SQ TID *Enoxaparin/Lovenox 40 mg SQ daily (WT < 150 kg, CrCl > 30 mL/min) *Enoxaparin/Lovenox 30 mg SQ daily (WT < 150 kg, CrCl > 10-29 mL/min) *Enoxaparin/Lovenox 30 mg SQ BID (WT < 150 kg, CrCl > 30 mL/min) AND/OR *Sequential Compression Device (SCD) 5 or more Highest Order ONE of the following medications: *Heparin 5000 units SQ TID (Preferred with Epidurals) *Enoxaparin/Lovenox 40 mg SQ daily (WT < 150 kg, CrCl > 30 mL/min) *Enoxaparin/Lovenox 30 mg SQ daily (WT < 150 kg, CrCl > 10-29 mL/min) *Enoxaparin/Lovenox 30 mg SQ BID (WT < 150 kg, CrCl > 30 mL/min) AND *Sequential Compression Device (SCD) Assessment and Plan - Plan Assessment/plan: 1. COPD exacerbation Patient most recently admitted to the hospital on 08/08/18 for a COPD exacerbation that required intubation CTA negative for PE, significant for left lower lobe consolidation and pleural effusion with scattered areas of infiltrates bilaterally Azithromycin and Rocephin IV steroids DuoNebs Supplemental oxygen as needed (patient on 2 L nasal cannula at home) Continue Qvar 2. Diabetes mellitus Continue home Lantus Sliding-scale insulin Monitor blood glucose 3. CHF Continue home Lasix Echo on 10/16/17 showed an EF of 55-60% 4. Hypertension/hyperlipidemia/coronary artery disease Continue home medications 5. Bipolar disorder/gout Continue home medication 6. Chronic kidney disease Cr 1.3, baseline approximately 1 Monitor renal function Holding IV fluids as the patient has history of CHF FEN Heart healthy and diabetic diet Electrolytes: Monitor and replete as needed Heparin
[2018-09-11] MEDS: MethylPREDNISolone Sod Succinate Inj 125 MG/2 ML Vial IV.PUSH SCH ×5 (02:21→21:38)
[2018-09-11] MEDS: Insulin NovoLOG Aspart Correctional Sugar Inj SQ SCH ×6 (03:56→21:59)
[2018-09-11] MEDS: Heparin - SQ 10,000 UNITS/ML Vial SQ SCH ×3 (05:23→21:38)
[2018-09-11] MEDS ORDERED: Insulin Detemir Inj 1,000 UNIT/10 ML Vial SQ SCH (09:00)
[2018-09-11] MEDS: Beclomethasone Dipropionate 80 MCG/ACT 10.6 GM Inhaler INH SCH ×2 (10:24→23:14)
[2018-09-11] MEDS: Aspirin 325 MG Tablet PO SCH (10:35)
[2018-09-11] MEDS: Senna/Docusate Sodium 8.6/50 MG Tablet PO SCH ×2 (10:35→21:40)
[2018-09-11] MEDS: Sertraline 50 MG Tablet PO SCH ×2 (10:35→21:39)
[2018-09-11] MEDS: Allopurinol 100 MG Tablet PO SCH (10:35)
[2018-09-11] MEDS: Gabapentin 100 MG Capsule PO SCH ×3 (10:36→18:55)
[2018-09-11] MEDS: Furosemide 20 MG Tablet PO SCH (10:36)
[2018-09-11] MEDS: Amiodarone 200 MG Tablet PO SCH ×2 (10:36→21:39)
--- NOTE | 2018-09-11 15:18 | P.PNIM ---
Subjective Interval history: 58-year-old male with oxygen dependent COPD admitted with acute exacerbation of COPD and pneumonia. 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 Physical Exam Vital signs: Last Vital Signs Temp 97.7 F 09/11/18 12:42 Pulse 75 09/11/18 12:42 Resp 18 09/11/18 12:42 BP 142/63 H 09/11/18 12:42 Pulse Ox 96 09/11/18 12:42 Intake & Output 09/09/18 09/10/18 09/11/18 09/12/18 06:59 06:59 06:59 06:59 Intake Total 350 / 350 Output Total 600 / 600 Balance -250 / -250 Weight 149.685 kg well-developed well-nourished obese 58-year-old white male in no acute distress Heart S1-S2 regular Lungs diminished air movement, trace rales, dullness left base, no active wheeze , Abdomen obese soft nondistended positive bowel sounds Extremities chronic venous stasis discoloration and trace pedal edema no calf tenderness pulses palpable Results Labs CBC & Chem 7: 09/10/18 20:41 09/10/18 21:41 Imaging Imaging: Impressions Chest X-Ray 09/10/18 20:38 CONCLUSION: 1. Moderate cardiomegaly with no evidence of pulmonary edema or acute cardiopulmonary disease. 2. The patient is again noted be status post median sternotomy and a transvenous pacer remains in place. Chest CTA 09/10/18 23:10 CONCLUSION: 1. The study is negative for pulmonary embolism. 2. Left lower lobe consolidation and pleural effusion. There are also scattered areas of infiltrate dependent mid lungs bilaterally. Assessment and Plan Plan ACUTE HYPOXIC RESP FAILURE - on chronic, home o2 dependent, improved cont current tx AECOPD - nebs, steroids, pulm eval PNA LLLrecent MRSA pneumonia 08/08/18, add Vanco, failed outpatient Clinda? Pulmonary consult HTN continue blood pressure control IDDM w diabetic PN - uncontrolled due to steroids, continue diabetic diet, insulin sliding scale, home insulin BPH continue Flomax MORBID OBESITY BMI 54.9, likely TANA, diet, activity when stable, outpt sleep study and cpap if qualifies. CAD hx CABG, EF 55-60% echo 10/16/17 - cont home meds on amio for ? pafib hx? stable. CKDII stable BIPOLAR DO on depakote dvt prophyxaxis - heparin sq q 8 Dispo - home when stable 2 days.
[2018-09-11] MEDS ORDERED: Vancomycin Consult Pharmacy OTHER PRN (15:37)
--- NOTE | 2018-09-11 16:09 | ECG ---
Date Performed: 09/10/2018 Time Performed: 20:17:07 PTAGE: 58 years EKG: Sinus rhythm INTRAVENTRICULAR CONDUCTION DELAY Consider POSSIBLE ANTERIOR MYOCARDIAL INFARCTION-age Indeterminate Late R wave progression. POSSIBLE INFERIOR MYOCARDIAL INFARCTION ABNORMAL ECG PREVIOUS TRACING : 08/08/2018 18.08 DOCTOR: Sukhdeep Peraza Interpretating Date/Time 09/11/2018 16:08:11
[2018-09-11] MEDS: Tiotropium Bromide 18 MCG/ACT Inhaler INH SCH (18:54)
[2018-09-11] MEDS: Vancomycin Inj 1,500 MG in Sodium Chlor 0.9% Inj 500 ML IV.SIG SCH (19:25)
[2018-09-11] MEDS: Insulin Detemir Inj 1,000 UNIT/10 ML Vial SQ SCH (21:58)
[2018-09-11] MEDS ORDERED: Melatonin 5 MG Tablet PO ONE (23:09)
[2018-09-11] MEDS: Budesonide-Formoterol 160/4.5 MCG 6 GM Inhaler INH SCH (23:14)
[2018-09-12] MEDS: Azithromycin Inj 500 MG in Sodium Chlor 0.9% Inj 250 ML IV.SIG SCH (00:28)
[2018-09-12] MEDS: MethylPREDNISolone Sod Succinate Inj 125 MG/2 ML Vial IV.PUSH SCH ×3 (04:08→13:26)
[2018-09-12] MEDS: Insulin NovoLOG Aspart Correctional Sugar Inj SQ SCH ×5 (04:09→22:02)
[2018-09-12] MEDS: Heparin - SQ 10,000 UNITS/ML Vial SQ SCH ×3 (05:32→21:57)
[2018-09-12 07:10] LABS: Hematocrit 30.1 % (39.0-51.0); Hemoglobin 9.5 gm/dL (13.0-17.0); Mean Corpuscular HGB Conc 31.6 % (32.0-36.0); Mean Corpuscular Hemoglobin 26.9 pg (27.0-34.0); Mean Corpuscular Volume 85.1 fL (80.0-100.0); Mean Platelet Volume 8.5 fL (7.0-11.0); Platelet Count 186 th/mm3 (150-450); Red Blood Count 3.53 mil/mm3 (4.50-5.90); White Blood Count 5.9 th/mm3 (4.0-11.0)
[2018-09-12 07:31] LABS: Calcium 8.3 mg/dL (8.5-10.1); Carbon Dioxide 35.2 meq/L (21.0-32.0); Potassium 4.3 meq/L (3.5-5.1)
[2018-09-12 08:19] LABS: Lymphocytes 4 % (9-44); Monocytes 2 % (0-8); Tallied Nucleated RBC 1 (0-0)
[2018-09-12 08:20] LABS: Ovalocytes 1+; Platelet Estimate Normal (Normal); Platelet Morphology Normal (Normal)
[2018-09-12] MEDS: Aspirin 325 MG Tablet PO SCH (08:55)
[2018-09-12] MEDS: Sertraline 50 MG Tablet PO SCH ×2 (08:55→21:56)
[2018-09-12] MEDS: Insulin Detemir Inj 1,000 UNIT/10 ML Vial SQ SCH ×2 (08:55→21:58)
[2018-09-12] MEDS: Gabapentin 100 MG Capsule PO SCH ×3 (08:55→17:38)
[2018-09-12] MEDS: Amiodarone 200 MG Tablet PO SCH ×2 (08:55→21:56)
[2018-09-12] MEDS: Allopurinol 100 MG Tablet PO SCH (08:55)
[2018-09-12] MEDS: Senna/Docusate Sodium 8.6/50 MG Tablet PO SCH ×2 (08:56→21:56)
[2018-09-12] MEDS: Furosemide 20 MG Tablet PO SCH (08:56)
[2018-09-12] MEDS: Beclomethasone Dipropionate 80 MCG/ACT 10.6 GM Inhaler INH SCH ×2 (08:57→21:57)
[2018-09-12] MEDS: Tiotropium Bromide 18 MCG/ACT Inhaler INH SCH (08:57)
[2018-09-12] MEDS: Budesonide-Formoterol 160/4.5 MCG 6 GM Inhaler INH SCH ×2 (08:57→21:58)
[2018-09-12] MEDS: Vancomycin Inj 1,500 MG in Sodium Chlor 0.9% Inj 500 ML IV.SIG SCH (12:10)
[2018-09-12] MEDS: predniSONE 10 MG Tablet PO SCH ×2 (15:07→21:56)
--- NOTE | 2018-09-12 16:10 | MB ---
cc: Rodo Koehler MD DATE: 09/12/2018 REASON FOR CONSULTATION: Pneumonia. HISTORY OF PRESENT ILLNESS: The patient is a 58-year-old male with a known history of COPD, chronic respiratory failure, on home oxygen therapy, congestive heart failure, coronary artery disease, obstructive sleep apnea, hypertension, hyperlipidemia, chronic kidney disease, diabetes mellitus, previous CVA and bipolar disorder, who comes to the emergency room complaining of worsening shortness of breath, cough with expectoration of brownish yellowish mucoid sputum. CT angiogram without PE and evidence of left lower lung infiltrate and associated effusion. Denies history of fever or chills. No hemoptysis. No TB, no industrial exposure. PAST MEDICAL HISTORY: 1. COPD. 2. Congestive heart failure. 3. Chronic kidney disease. 4. Diabetes mellitus. 5. Hypertension. 6. Coronary artery disease. 7. Status post automatic implantable cardioverter-defibrillator placement. 8. Status post CVA. 9. Coronary artery bypass graft surgery. 10. The patient is morbidly obese. FAMILY HISTORY: Positive for diabetes mellitus, hypertension and heart disease. SOCIAL HISTORY: Does not smoke, does not drink. No TB, no industrial exposure. ALLERGIES: MORPHINE. MEDICATIONS: Review MAR for details. REVIEW OF SYSTEMS: A 12-point review of systems as per HPI and past history, otherwise negative. PHYSICAL EXAMINATION: VITAL SIGNS: Temperature 98, pulse 80, respirations 30, blood pressure 115/60. Oxygen saturation 87% on room air, 99% on O2 nasal cannula. HEENT: Unremarkable. Eyes without icterus. Weight 149 kg. NECK: No adenopathy or thyroid enlargement. CHEST: No dullness to percussion. Few rhonchi at bases on auscultation. CARDIOVASCULAR: PMI not appreciated. S1, S2 audible. No murmur. No rub. ABDOMEN: Obese, lax. Bowel sounds audible. EXTREMITIES: 1+ edema. LABORATORY DATA: White count 4.9, hemoglobin 10, hematocrit 32. Sodium 144, potassium 4.0, BUN 13, creatinine 1.3. CT angiogram: No PE, left lower lobe pneumonia, associated effusion. IMPRESSION: 1. Pneumonia. 2. Chronic obstructive pulmonary disease. 3. Congestive heart failure. 4. Acute on chronic respiratory failure. 5. Diabetes mellitus. 6. Hypertension. 7. Coronary artery disease, post coronary artery bypass grafting. 8. Bipolar disorder. 9. Status post cerebrovascular accident. PLAN: 1. The patient will be maintained on oxygen therapy as needed. 2. Antibiotic therapy will be continued. 3. Followup chest x-ray. 4. Check arterial blood gas. 5. We will follow the patient's course along with you and depending on progress, proceed further. 6. The patient has possible obstructive sleep apnea. Arrangements for polysomnographic evaluation in or outpatient has not been possible. The patient has difficulty keeping appointments. We will follow up his care with you. Sincerely, Rodo Koehler MD WW[email or web address] , 03:32 PM , 03:43 PM
[2018-09-12 17:28] LABS: ABG Base Excess 10.6 mmol/L (-2-2); ABG PCO2 50 mmHg (38-42); ABG PO2 79 mmHg (61-120)
--- NOTE | 2018-09-12 17:49 | P.PNIM ---
Subjective Interval history: 58 yo m admitted with acute copd exacerbation and lll pna, pt seen doing better today, complaining about the diet wants regular, states he has some cough w sputum no cp no nv Physical Exam Vital signs: Last Vital Signs Temp 98.5 F 09/12/18 16:00 Pulse 79 09/12/18 16:11 Resp 20 09/12/18 16:11 BP 128/66 09/12/18 16:00 Pulse Ox 96 09/12/18 16:11 Intake & Output 09/10/18 09/11/18 09/12/18 09/13/18 06:59 06:59 06:59 06:59 Intake Total 350 / 350 1725 / 1725 500 / 500 Output Total 600 / 600 Balance -250 / -250 1725 / 1725 500 / 500 Weight 149.685 kg 149.685 kg wdwn obese 58yo w m aaox3 nad heart s1s2 reg lungs improved air movment still diminshed no wheeze abd soft obese nondt pos bs ext chronic stasis + edema Results Labs CBC & Chem 7: 09/12/18 06:00 09/12/18 06:00 Assessment and Plan Plan ACUTE HYPOXIC RESP FAILURE - on chronic, home o2 dependent, improved cont current tx AECOPD - nebs, steroids, pulm eval, better, wean steroids to po PNA LLLrecent MRSA pneumonia 08/08/18, add Vanco, failed outpatient Clinda?vs new infection,repeat sputum cx HTN continue blood pressure control IDDM w diabetic PN - uncontrolled due to steroids, continue diabetic diet, insulin sliding scale, home insulin BPH continue Flomax MORBID OBESITY BMI 54.9, likely TANA, diet, activity when stable, outpt sleep study and cpap if qualifies. CAD hx CABG, EF 55-60% echo 10/16/17 - cont home meds on amio for ? pafib hx? stable. CKDII stable BIPOLAR DO on depakote NC ANEMIA - chronic stable dvt prophyxaxis - heparin sq q 8 Dispo - home when stable 1-2 days. Progress Note: Quality VTE Deep Vein Thrombosis/Pulmonary Embolism Present on Admission: No
[2018-09-12] MEDS ORDERED: Temazepam 15 MG Capsule PO PRN (21:00)
[2018-09-13] MEDS: Azithromycin Inj 500 MG in Sodium Chlor 0.9% Inj 250 ML IV.SIG SCH (00:09)
[2018-09-13] MEDS: Insulin NovoLOG Aspart Correctional Sugar Inj SQ SCH ×5 (02:06→21:31)
[2018-09-13] MEDS: Vancomycin Inj 1,500 MG in Sodium Chlor 0.9% Inj 500 ML IV.SIG SCH (04:50)
[2018-09-13] MEDS: Heparin - SQ 10,000 UNITS/ML Vial SQ SCH ×3 (04:59→21:31)
[2018-09-13] MEDS: Allopurinol 100 MG Tablet PO SCH (09:01)
[2018-09-13] MEDS: Sertraline 50 MG Tablet PO SCH ×2 (09:01→21:32)
[2018-09-13] MEDS: Amiodarone 200 MG Tablet PO SCH ×2 (09:01→21:32)
[2018-09-13] MEDS: Gabapentin 100 MG Capsule PO SCH ×3 (09:01→18:25)
[2018-09-13] MEDS: Aspirin 325 MG Tablet PO SCH (09:02)
[2018-09-13] MEDS: Insulin Detemir Inj 1,000 UNIT/10 ML Vial SQ SCH ×2 (09:05→21:30)
[2018-09-13] MEDS: Budesonide-Formoterol 160/4.5 MCG 6 GM Inhaler INH SCH ×2 (09:06→21:46)
[2018-09-13] MEDS: Beclomethasone Dipropionate 80 MCG/ACT 10.6 GM Inhaler INH SCH ×2 (09:06→21:46)
[2018-09-13] MEDS: Tiotropium Bromide 18 MCG/ACT Inhaler INH SCH (09:07)
[2018-09-13] MEDS: Senna/Docusate Sodium 8.6/50 MG Tablet PO SCH ×2 (09:10→21:32)
[2018-09-13] MEDS: Furosemide 20 MG Tablet PO SCH (09:10)
--- NOTE | 2018-09-13 09:53 | P.PN ---
Subjective Interval history: ALERT ON O2 SOB IMPROVED Physical Exam Vital signs: Vital Signs 09/12/18 11:32 09/12/18 12:00 09/12/18 16:00 Temperature 98.4 F 98.5 F Pulse Rate 77 72 75 Respiratory Rate 20 18 18 Blood Pressure 132/60 128/66 Pulse Oximetry 96 94 L 09/12/18 16:11 09/12/18 19:33 09/12/18 19:51 Temperature 99.1 F Pulse Rate 79 82 84 Respiratory Rate 20 18 22 Blood Pressure 142/69 H Pulse Oximetry 96 92 L 09/12/18 20:00 09/12/18 23:11 09/13/18 00:00 Temperature 99.0 F Pulse Rate 99 H 89 Respiratory Rate 22 20 22 Blood Pressure 137/74 Pulse Oximetry 95 95 09/13/18 03:32 09/13/18 07:10 09/13/18 08:00 Temperature 99.3 F 97.1 F L Pulse Rate 74 72 71 Respiratory Rate 22 22 18 Blood Pressure 164/79 H 135/63 Pulse Oximetry 92 L 99 94 L Intake & Output 09/12/18 09/13/18 09/13/18 18:59 06:59 18:59 Intake Total 1700 / 1700 250 / 250 515 / 515 Output Total 1800 / 1800 Balance -100 / -100 250 / 250 515 / 515 Intake: IV 500 / 500 250 / 250 515 / 515 Azithromycin Inj 500 MG In NS 250 / 250 Inj 250 ML @ 250 mls/hr IV.SIG Q24H ANGÉLICA Rx#:[id number] Vancomycin Inj 1,500 MG In NS 500 / 500 515 / 515 Inj 500 ML @ 250 mls/hr IV.SIG Q18H ANGÉLICA Rx#:[id number] Oral 1200 / 1200 Output: Urine 1800 / 1800 Other: Date of Last Bowel Movement 09/10/18 09/12/18 # Bowel Movements 1 Narrative: Gen.: Morbidly obese male lying in bed sleeping in no acute distress Head: Normocephalic. Atraumatic. EENT: Pupils equal round and reactive to light. Nose without drainage. Airway intact. Throat without injection. Cardiovascular: Regular rate and rhythm. No murmurs, rubs or gallops. Respiratory: Very poor air movement. No wheezes or rhonchi. Abdomen: Soft, nontender, nondistended. No peritoneal signs. Musculoskeletal: No gross deformities. No edema. Skin: No obvious rashes or erythema. Neuro: Sensory and motor grossly intact. Cranial nerves II through XII grossly intact. Results - Labs CBC & Chem 7: 09/12/18 06:00 09/12/18 06:00 Laboratory Results - last 24 hr 09/12/18 09/12/18 09/12/18 11:53 17:17 17:38 Puncture Site Right radial Patient Temperature 98.6 O2 Saturation 93 ABG pH 7.46 H ABG pCO2 50 H ABG pO2 79 ABG HCO3 35 H ABG O2 Content 13.0 ABG Base Excess 10.6 H ABG Methemoglobin 1.3 Rolando Test + Hemoglobin 9.8 L Carboxyhemoglobin 1.2 O2 Delivery Device Nasal cannula Liter Flow 2.00 Critical Value No POC Glucose 350 H 267 H 09/12/18 09/13/18 09/13/18 22:01 02:04 08:20 Puncture Site Patient Temperature O2 Saturation ABG pH ABG pCO2 ABG pO2 ABG HCO3 ABG O2 Content ABG Base Excess ABG Methemoglobin Rolando Test Hemoglobin Carboxyhemoglobin O2 Delivery Device Liter Flow Critical Value POC Glucose 392 H 342 H 245 H Microbiology 09/12/18 13:30 Sputum - Expectorated Sputum Gram Stain - Final Assessment and Plan - Plan PNA COPD CHF PLAN O2 NEEDED ANTBX BRONCHODILATOR THERAPY INCREASE ACTIVITY LOOSE WT
[2018-09-13] MEDS: predniSONE 10 MG Tablet PO SCH ×2 (12:00→21:32)
--- NOTE | 2018-09-13 14:25 | P.PNIM ---
Subjective Interval history: 58-year-old gentleman admitted with acute exacerbation of COPD and left lower lobe pneumonia, with acute hypoxia Patient seen and examined, continues to feel better, denies shortness of breath , no nausea vomiting, no chest pain, still some cough Physical Exam Vital signs: Last Vital Signs Temp 97.1 F L 09/13/18 12:00 Pulse 73 09/13/18 12:00 Resp 20 09/13/18 12:00 BP 130/61 09/13/18 12:00 Pulse Ox 92 L 09/13/18 12:00 Intake & Output 09/11/18 09/12/18 09/13/18 09/14/18 06:59 06:59 06:59 06:59 Intake Total 350 / 350 1725 / 1725 1950 / 1950 515 / 515 Output Total 600 / 600 1800 / 1800 Balance -250 / -250 1725 / 1725 150 / 150 515 / 515 Weight 149.685 kg 149.685 kg wdwn obese 58yo wm aaox3 nad heart s1s2 reg lungs improved air momvnet left base rales abd obese soft nondt pos bs ext chronic venous stasis no calf tenderness Results Labs CBC & Chem 7: 09/12/18 06:00 09/12/18 06:00 Labs: Microbiology 09/12/18 13:30 Sputum - Expectorated Sputum Gram Stain - Final Assessment and Plan Plan ACUTE HYPOXIC RESP FAILURE - on chronic, home o2 dependent, improved cont current tx AECOPD - nebs, steroids, pulm eval, better, wean po steroids today PNA LLLrecent MRSA pneumonia 08/08/18, add Vanco, failed outpatient Clinda?vs new infection,repeat sputum cx pending, repeat cxr in am, and possible dc home on oral abx tomorrow if ok w pulm pending sputum cx. HTN continue blood pressure control IDDM w diabetic PN - uncontrolled due to steroids, continue diabetic diet, insulin sliding scale, home insulin BPH continue Flomax MORBID OBESITY BMI 54.9, likely TANA, diet, activity when stable, outpt sleep study and cpap if qualifies. CAD hx CABG, EF 55-60% echo 10/16/17 - cont home meds on amio for ? pafib hx? stable. CKDII stable BIPOLAR DO on depakote NC ANEMIA - chronic stable dvt prophyxaxis - heparin sq q 8 Dispo - home when stable 1-2 days. Progress Note: Quality VTE Deep Vein Thrombosis/Pulmonary Embolism Present on Admission: No
[2018-09-13] MEDS ORDERED: Pharmacy Ordered Lab Info OTHER ONE (22:45)
[2018-09-14] MEDS: Azithromycin Inj 500 MG in Sodium Chlor 0.9% Inj 250 ML IV.SIG SCH (01:11)
[2018-09-14] MEDS: Vancomycin Inj 1,500 MG in Sodium Chlor 0.9% Inj 500 ML IV.SIG SCH (02:41)
[2018-09-14] MEDS: Insulin NovoLOG Aspart Correctional Sugar Inj SQ SCH ×2 (02:48→09:22)
[2018-09-14 03:54] VITALS: O2SAT 94
[2018-09-14] MEDS: Heparin - SQ 10,000 UNITS/ML Vial SQ SCH (06:02)
--- NOTE | 2018-09-14 08:29 | XR ---
EXAM DATE: 09/14/2018 8:21 AM EST AGE/SEX: 58 years / Male INDICATIONS: . Reoccurring Pneumonia. CLINICAL DATA: This is the patient's initial encounter. Patient reports that signs and symptoms have been present for > 1 year and indicates a pain score of 0/10. MEDICAL/SURGICAL HISTORY: . Hypertension. Chronic obstructive pulmonary disease. Congestive hea rt failure. Diabetes. Asthma. CABG. Pacemaker. . COMPARISON: C, CHEST 1V SINGLE AP, 09/10/2018. . FINDINGS: Pacemaker implanted in the right chest. Sternal wires previous bypass noted. Heart is enlarged with m ild to moderate interstitial edema present. There is some consolidative changes in the right base jose t are progressing. CONCLUSION: Progression of consolidative changes in the right base Minimal increase in amount of interstitial edema. Electronically signed by: Jamal Lema MD Board Certified Radiologist 09/14/2018 8:27 AM EST
[2018-09-14 08:32] VITALS: RESP 20
[2018-09-14] MEDS: Aspirin 325 MG Tablet PO SCH (09:22)
[2018-09-14] MEDS: Allopurinol 100 MG Tablet PO SCH (09:22)
[2018-09-14] MEDS: predniSONE 10 MG Tablet PO SCH (09:22)
[2018-09-14] MEDS: Furosemide 20 MG Tablet PO SCH (09:22)
[2018-09-14] MEDS: Senna/Docusate Sodium 8.6/50 MG Tablet PO SCH (09:22)
[2018-09-14] MEDS: Amiodarone 200 MG Tablet PO SCH (09:22)
[2018-09-14] MEDS: Tiotropium Bromide 18 MCG/ACT Inhaler INH SCH (09:25)
[2018-09-14] MEDS: Budesonide-Formoterol 160/4.5 MCG 6 GM Inhaler INH SCH ×2 (09:25→09:37)
[2018-09-14] MEDS: Beclomethasone Dipropionate 80 MCG/ACT 10.6 GM Inhaler INH SCH ×2 (09:25→09:36)
[2018-09-14] MEDS: Gabapentin 100 MG Capsule PO SCH (09:28)
[2018-09-14] MEDS: Sertraline 50 MG Tablet PO SCH (09:31)
[2018-09-14] MEDS: Insulin Detemir Inj 1,000 UNIT/10 ML Vial SQ SCH (09:32)
[2018-09-14 09:34] VITALS: PULSE 83
[2018-09-14 09:35] VITALS: TEMP 98.2
--- NOTE | 2018-09-14 11:40 | P.DS ---
DS: Providers Date of admission: 09/12/18 17:55 Primary care physician: UNKNOWN Consults: 09/11/18 12:24 Consult to Pulmonology Routine Consulting Provider: Rodo Koehler Preferred Manager Of International:: Rodo Koehler Patient known to:: Rodo Koehler Reason for Consultation: copd exacerbation, tana Notified:: Office Spoke with:: Roslyn Date Notified:: 09/11/18 Time Notified:: 12:28 Ordering Provider: AARON Brief History from admission: 58-year-old male with a past medical history significant for COPD on 2 L nasal cannula at home, CAD status post CABG, cardiomyopathy and congestive heart failure, AICD, TANA, hypertension, hyperlipidemia, gout, chronic kidney disease stage III, diabetes mellitus, history of CVA, bipolar disorder and depression presents to the emergency department for the evaluation of shortness of breath. The patient states he became acutely short of breath around 10 AM. He endorses a pleuritic chest pain that is worse with inspiration. He states he has had a cough productive of brown sputum however denies any fevers/chills. No abdominal pain. No nausea/vomiting/diarrhea. No focal neurologic deficits. DS: Summary Patient was admitted and continued on pulmonary treatments, and empiric IV antibiotics, vancomycin added for history of positive MRSA in the sputum. Patient had slow improvement of his symptoms and sputum cultures grew pseudomonas aeruginosa. Sensitive to Levaquin. Vancomycin was discontinued patient was switched to Levaquin. Patient was seen in consultation by his vb net developer Dr. Koehler. He was afebrile, saturating well on 2 L nasal cannula at his baseline and otherwise clinically stable for discharge with much improvement in his respiratory status. Follow-up chest x-ray show mild progression of right base consolidation, patient will likely need follow-up x- ray or CT scan imaging to ensure resolution of pneumonia, and he is instructed at length regarding importance of follow-up for sleep study, and weight loss and activity, regarding his problem obstructive sleep apnea. Discharge diagnosis: Acute hypoxic respiratory failure Acute exacerbation of COPD Oxygen dependent COPD with chronic hypoxic respiratory failure Left lower lobe pneumonia due to pseudomonas aeruginosa Hypertension Insulin-dependent diabetes, uncontrolled, with diabetic peripheral neuropathy BPH Morbid obesity with BMI 54.9 CKDII Bipolar disorder Chronic normocytic anemia Coronary artery disease with history of CABG, EF 55-60% Suspected obstructive sleep apnea Time Spent with Patient Total time spent providing and/or coordinating discharge services: Greater than 30 minutes Quality: VTE Deep Vein Thrombosis/Pulmonary Embolism Present on Admission: No Exam Narrative Exam Narrative: Morbidly obese pleasant 58-year-old white male Awake alert oriented no acute distress Heart S1-S2 regular Lungs improved air movement, no wheeze, crackles left base Abdomen obese soft nontender positive bowel sounds Extremities improved edema, chronic venous stasis Results Labs on day of discharge: Labs from last 24 hours 09/14/18 09/14/18 09/14/18 09:19 02:45 00:48 POC Glucose 134 H 162 H Vancomycin Trough 13.9 H 09/13/18 09/13/18 09/13/18 21:18 17:15 12:31 POC Glucose 277 H 276 H 258 H Vancomycin Trough Impressions ITS Impressions Chest CTA 09/10/18 23:10 CONCLUSION: 1. The study is negative for pulmonary embolism. 2. Left lower lobe consolidation and pleural effusion. There are also scattered areas of infiltrate dependent mid lungs bilaterally. Chest X-Ray 09/14/18 06:00 CONCLUSION: Progression of consolidative changes in the right base Minimal increase in amount of interstitial edema. Discharge Plan Discharge Disposition Patient Disposition: 01 Discharge Home Discharge Condition Condition: Stable Discharge Order Discharge Orders: Discharge Order (Routine); Ordered 09/14/18 Ordered By: Eunice Santos Physicians Team ED Provider: Nato Barrera Primary Care Provider: UNKNOWN, Attending Provider: Eunice Santos Other Providers: Rodo Koehler Rxs /Orders / Referrals /Forms Prescriptions: New prednisone 10 mg Tablet 20 mg PO DAILY Qty: 6 RF: 0 ipratropium-albuterol 0.5 mg-3 mg(2.5 mg base)/3 mL Solution For Nebulization 1 amp NEB Q4HR NEB Qty: 0 RF: 0 gabapentin 100 mg Capsule 100 mg PO TID Qty: 30 RF: 0 tiotropium bromide [Spiriva with HandiHaler] 18 mcg Capsule, W/Inhalation Device 18 mcg INH DAILY Qty: 1 RF: 0 levofloxacin [Levaquin] 750 mg tablet 750 mg PO DAILY 10 Days Qty: 10 RF: 0 Continue amiodarone 200 mg Tablet 200 mg PO BID RF: 0 buspirone 5 mg Tablet 5 mg PO BID RF: 0 clonidine HCl 0.1 mg Tablet 0.1 mg PO BID RF: 0 aspirin 325 mg Tablet 325 mg PO DAILY RF: 0 allopurinol 100 mg Tablet 100 mg PO DAILY RF: 0 divalproex [Depakote] 500 mg Tablet,Delayed Release (Dr/Ec) 500 mg PO BID RF: 0 tamsulosin 0.4 mg Capsule 0.4 mg PO DAILY RF: 0 sertraline 25 mg Tablet 25 mg PO BID RF: 0 furosemide 20 mg Tablet 20 mg PO DAILY RF: 0 gabapentin 100 mg Capsule 100 mg PO TID RF: 0 beclomethasone dipropionate [Qvar RediHaler] 80 mcg/actuation Hfa Aerosol Breath Activated 1 puff INHALATION Q12H RF: 0 insulin regular human [Novolin R Regular U-100 Insuln] 100 unit/mL Solution 1 sliding scale dose SUBCUT UD RF: 0 famotidine 20 mg Tablet 20 mg PO BID Qty: 30 RF: 0 Changed insulin glargine [Lantus U-100 Insulin] 100 unit/mL Solution 20 unit SUBCUT BID Qty: 0 RF: 0 Discontinued clindamycin HCl [Cleocin HCl] 150 mg Capsule 300 mg PO Q6HR Qty: 60 RF: 0 prednisone 5 mg/5 mL Solution 10 mg PO DAILY Qty: 35 RF: 0 Referrals: UNKNOWN, [Primary Care Provider] - See Instructions Rodo Koehler MD [Physician] - See Instructions ( Please call the physician' s office to book the appointment to be seen within [5d].) Discharge Instructions Patient Printed Instructions: Prednisone (By mouth), Gabapentin (By mouth), Levofloxacin (By mouth), Tiotropium (By breathing), COPD (Chronic Obstructive Pulmonary Disease) (DC) Status ED Status: Left Department Discharge Information Discharge Date/Time: 09/14/18 13:02
[2018-09-14 12:58] VITALS: BP 142/87
== END 2018-09-14 13:02 | disposition home or self-care (01) ==
LOC: NEDA 20:13 → NEPE 20:13 → NEPGCP 09-11 12:09
PROVIDERS: ADMIT Internal Medicine; ATTEND Internal Medicine

== ENCOUNTER 2018-10-06 18:48 | Inpatient (IN) ==
[2018-10-06] MEDS ORDERED: MethylPREDNISolone Sod Succinate Inj 125 MG/2 ML Vial IV.PUSH ONE (19:18)
--- NOTE | 2018-10-06 19:18 | ED ---
HPI General Chief Complaint: Shortness of Breath/Dyspnea Stated Complaint: Resp Time Seen by Provider: 10/06/18 19:01 Source: patient and EMS Mode of arrival: EMS Limitations: no limitations History of Present Illness 33 years old male complaint of shortness of breath. Patient has history of COPD and CHF. Patient started having short of breath intermittently since yesterday. Patient states that the shortness of breath to got worse today. Patient states that he has intermittent coughing with productive sputum. EMS was called. Patient was given albuterol with Atrovent unit dose treatment and BiPAP and transported to ED for evaluation. Patient denies any fever chills. Patient denies any chest pain. Patient has history of COPD on 2 L nasal cannula at home. Patient has history of CAD status post CABG. Patient has history of atrial fibrillation on aspirin daily. Patient has history of Myopathy, CHF, AICD placement, hypertension, diabetes, hyperlipidemia, gout, chronic kidney disease stage III, status post CVA, history of bipolar disorder. Patient states that he has been using his nebulizer treatment at home every 4 hours without much relief of the shortness of breath. Patient states that he has worsened swelling recently. Patient denies any pain to the groin area. MD Complaint: Reports shortness of breath and cough Onset (ago): hour(s) Severity: severe Consistency/Duration: progressively worsening Relieving factors: nothing Exacerbating factors: nothing Known history of: Reports COPD and congestive heart failure Associated symptoms: Reports cough, wheezing and sputum production Treatment prior to arrival: Reports oxygen and bronchodilator Related Data Home Medications Medication Instructions Recorded Confirmed amiodarone 200 mg PO BID 03/24/18 10/06/18 allopurinol 100 mg PO DAILY 08/03/18 10/06/18 aspirin 325 mg PO DAILY 08/03/18 10/06/18 beclomethasone dipropionate [Qvar 1 puff INHALATION Q12H 08/03/18 10/06/18 RediHaler] clonidine HCl 0.1 mg PO BID 08/03/18 10/06/18 furosemide 20 mg PO DAILY 08/03/18 10/06/18 insulin regular human [Novolin R 1 sliding scale dose SUBCUT UD 08/03/18 Regular U-100 Insuln] sertraline 25 mg PO BID 08/03/18 10/06/18 tamsulosin 0.4 mg PO DAILY 08/03/18 10/06/18 gabapentin 600 mg PO TID 09/25/18 10/06/18 hydroxyzine HCl 25 mg PO BID 09/25/18 10/06/18 Previous Rx's Medication Instructions Recorded famotidine 20 mg PO BID #30 tab 08/20/18 insulin glargine [Lantus U-100 20 unit SUBCUT BID #0 ml 09/14/18 Insulin] prednisone 20 mg PO DAILY #6 tab 09/14/18 tiotropium bromide [Spiriva with 18 mcg INH DAILY #1 inh 09/14/18 HandiHaler] ipratropium-albuterol 1 amp NEB Q4HR NEB #30 ml 09/27/18 Allergies Allergy/AdvReac Type Severity Reaction Status Date / Time morphine AdvReac Mild Gastrointestinal Verified 09/25/18 19:47 Upset MRI PRECAUTION AdvReac Severe PACEMAKER Uncoded 03/24/18 12:04 (JLT), BULLET FRAGMENTS IN SINUS CAVITY Review of Systems ROS: all other systems reviewed are negative PMFSH History History Provided By: Patient Medical History Medical History A-fib (Acute) Asthma (Acute) Bipolar disorder (Acute) COPD (chronic obstructive pulmonary disease) (Acute) Cardiac defibrillator in place (Acute) Chronic kidney disease, stage III (moderate) (Acute) Congestive heart failure (Acute) Coronary artery disease (Acute) Depression with anxiety (Acute) Diabetes (Acute) Gout (Acute) History of CVA (cerebrovascular accident) (Acute) History of MRSA infection (Acute ~09/26/18) Hypertension (Acute) MDRO (multiple drug resistant organisms) resistance (Acute ~08/08/18) Surgical History Surgical History AICD (automatic cardioverter/defibrillator) present (Acute) H/O heart bypass surgery (Acute) History of enucleation of right eyeball (Acute) Family History Family History Other Coronary artery disease Diabetes mellitus Social History Social History Substance History: No History of Abuse Second Hand Smoke Exposure: No Smoking Status: Former smoker Tobacco Type: Cigarettes How Often Do You Have a Drink Containing Alcohol: Never Recent Travel in [facility] within the Last 8 Weeks: No Recent Out of Country Travel within the Last 8 Weeks: No Exam Narrative Exam Narrative: GENERAL: Well-nourished, well-developed patient. SKIN: Focused skin assessment warm/dry. HEAD: Normocephalic. EYES: No scleral icterus. No injection or drainage. NECK: Supple, trachea midline. No JVD or lymphadenopathy. CARDIOVASCULAR: Regular rate and rhythm without murmurs, gallops, or rubs. RESPIRATORY: Breath sounds equal bilaterally. No accessory muscle use. Mild expiratory wheezes bilaterally. Patient on BiPAP. GASTROINTESTINAL: Abdomen soft, non-tender, nondistended. MUSCULOSKELETAL: No cyanosis, or edema. BACK: Nontender without obvious deformity. No CVA tenderness. Neurologic exam normal. Course Initial Documented Vital Signs Pulse Rate 82 10/06/18 18:50 Respiratory Rate 18 10/06/18 18:50 Blood Pressure 127/65 10/06/18 18:50 Pulse Oximetry 100 10/06/18 18:50 Last Documented Vital Signs Pulse Rate 71 10/06/18 21:35 Respiratory Rate 20 10/06/18 21:35 Blood Pressure 118/60 10/06/18 21:35 Pulse Oximetry 99 10/06/18 21:53 Medical Decision Making MDM Narrative Medical decision making narrative: 58 years old male with shortness of breath. History of COPD and CHF. EMS was called. Patient was given albuterol and Atrovent treatment prior to arrival. Patient is on BiPAP. Solu-Medrol 125 mg IV given. Continue with albuterol Atrovent unit dose treatment. Rocephin 1 g IV. Zithromax 500 mg IV given. Medical Screen Exam Complete: Yes Emergency Medical Condition: Yes Differential Diagnosis Differential Diagnosis: Differential diagnosis including acute exacerbation COPD , acute exacerbation CHF, bronchitis, pneumonia, PE, pneumothorax. Lab Data Lab results reviewed: Yes I reviewed the patient's lab results. Result diagrams: 10/06/18 19:38 10/06/18 19:38 Lab Results 10/06/18 10/06/18 10/06/18 Range/Units 19:38 19:38 19:38 WBC 6.2 (4.0-11.0) th/mm3 RBC 3.65 L (4.50-5.90) mil/mm3 Hgb 9.2 L (13.0-17.0) gm/dL Hct 31.0 L (39.0-51.0) % MCV 84.8 (80.0-100.0) fL MCH 25.1 L (27.0-34.0) pg MCHC 29.6 L (32.0-36.0) % RDW 18.0 H (11.6-17.2) % Plt Count 171 (150-450) th/mm3 MPV 8.2 (7.0-11.0) fL Prelim Diff (Auto) Manual diff required WBC Differential Manual diff final Seg Neuts % (Manual) 82 H (16-70) % Band Neuts % (Manual) 1 (0-6) % Lymphocytes % (Manual) 8 L (9-44) % Monocytes % (Manual) 5 (0-8) % Eosinophils % (Manual) 3 (0-4) % Basophils % (Manual) 1 (0-2) % Abs Neuts (Manual) 5.1 (1.8-7.7) th/mm3 Differential Comment . Platelet Estimate Normal (Normal) Platelet Morphology Normal (Normal) PT 10.7 (9.8-11.6) sec INR 1.1 Ratio APTT 26.8 (23.4-31.7) sec Puncture Site Patient Temperature O2 Saturation (90-100) % ABG pH (7.380-7.420) ABG pCO2 (38-42) mmHg ABG pO2 (61-120) mmHg ABG HCO3 (22-26) mmol/L ABG O2 Content (12.0-20.0) Vol % ABG Base Excess (-2-2) mmol/L ABG Methemoglobin (0-2) % Rolando Test Hemoglobin (12.0-16.0) G/DL Carboxyhemoglobin (0-4) % O2 Delivery Device Vent Setting Inspired O2 % Critical Value Sodium 141 (136-145) meq/L Potassium 3.8 (3.5-5.1) meq/L Chloride 97 L (98-107) meq/L Carbon Dioxide 40.1 H (21.0-32.0) meq/L Anion Gap 4 L (5-15) meq/L BUN 17 (7-18) mg/dL Creatinine 1.15 (0.60-1.30) mg/dL Estimated GFR 66 L (>89) mL/min Random Glucose 101 (74-106) mg/dL Calcium 8.0 L (8.5-10.1) mg/dL Total Bilirubin 0.4 (0.2-1.0) mg/dL AST 18 (15-37) U/L ALT 22 (12-78) U/L Alkaline Phosphatase 76 (45-117) U/L Total Creatine Kinase 57 (39-308) U/L Troponin I 0.02 (0.02-0.05) ng/mL B-Natriuretic Peptide (0-100) pg/mL Total Protein 6.2 L (6.4-8.2) g/dL Albumin 2.8 L (3.4-5.0) g/dL 10/06/18 10/06/18 Range/Units 19:38 20:09 WBC (4.0-11.0) th/mm3 RBC (4.50-5.90) mil/mm3 Hgb (13.0-17.0) gm/dL Hct (39.0-51.0) % MCV (80.0-100.0) fL MCH (27.0-34.0) pg MCHC (32.0-36.0) % RDW (11.6-17.2) % Plt Count (150-450) th/mm3 MPV (7.0-11.0) fL Prelim Diff (Auto) WBC Differential Seg Neuts % (Manual) (16-70) % Band Neuts % (Manual) (0-6) % Lymphocytes % (Manual) (9-44) % Monocytes % (Manual) (0-8) % Eosinophils % (Manual) (0-4) % Basophils % (Manual) (0-2) % Abs Neuts (Manual) (1.8-7.7) th/mm3 Differential Comment Platelet Estimate (Normal) Platelet Morphology (Normal) PT (9.8-11.6) sec INR Ratio APTT (23.4-31.7) sec Puncture Site Right radial Patient Temperature 98.6 O2 Saturation 91 (90-100) % ABG pH 7.34 L (7.380-7.420) ABG pCO2 79 H* (38-42) mmHg ABG pO2 71 (61-120) mmHg ABG HCO3 41 H (22-26) mmol/L ABG O2 Content 11.3 L (12.0-20.0) Vol % ABG Base Excess 14.9 H (-2-2) mmol/L ABG Methemoglobin 1.4 (0-2) % Rolando Test Present Hemoglobin 8.8 L (12.0-16.0) G/DL Carboxyhemoglobin 1.4 (0-4) % O2 Delivery Device Bipap Vent Setting Ipap 12/epap 6 Inspired O2 60 % Critical Value Yes Sodium (136-145) meq/L Potassium (3.5-5.1) meq/L Chloride (98-107) meq/L Carbon Dioxide (21.0-32.0) meq/L Anion Gap (5-15) meq/L BUN (7-18) mg/dL Creatinine (0.60-1.30) mg/dL Estimated GFR (>89) mL/min Random Glucose (74-106) mg/dL Calcium (8.5-10.1) mg/dL Total Bilirubin (0.2-1.0) mg/dL AST (15-37) U/L ALT (12-78) U/L Alkaline Phosphatase (45-117) U/L Total Creatine Kinase (39-308) U/L Troponin I (0.02-0.05) ng/mL B-Natriuretic Peptide 52 (0-100) pg/mL Total Protein (6.4-8.2) g/dL Albumin (3.4-5.0) g/dL Imaging Data Attestation: I personally reviewed and interpreted this imaging study as follows : Radiologist's impression: Chest X-Ray 10/06/18 19:12 CONCLUSION: Left lower lung airspace opacities and cardiomegaly similar to 09/25/2018. Possible new small right pleural effusion. Discharge Plan Discharge Disposition Patient Disposition: ED Admit(ED Internal Use Only) Discharge Details Diagnosis: COPD with acute exacerbation, Hypoxemia Physicians Team ED Provider: Salas Salazar Primary Care Provider: UNKNOWN, Rxs /Orders / Referrals /Forms Prescriptions: No Action amiodarone 200 mg Tablet 200 mg PO BID RF: 0 clonidine HCl 0.1 mg Tablet 0.1 mg PO BID RF: 0 aspirin 325 mg Tablet 325 mg PO DAILY RF: 0 allopurinol 100 mg Tablet 100 mg PO DAILY RF: 0 tamsulosin 0.4 mg Capsule 0.4 mg PO DAILY RF: 0 sertraline 25 mg Tablet 25 mg PO BID RF: 0 furosemide 20 mg Tablet 20 mg PO DAILY RF: 0 beclomethasone dipropionate [Qvar RediHaler] 80 mcg/actuation Hfa Aerosol Breath Activated 1 puff INHALATION Q12H RF: 0 insulin regular human [Novolin R Regular U-100 Insuln] 100 unit/mL Solution 1 sliding scale dose SUBCUT UD RF: 0 famotidine 20 mg Tablet 20 mg PO BID Qty: 30 RF: 0 prednisone 10 mg Tablet 20 mg PO DAILY Qty: 6 RF: 0 tiotropium bromide [Spiriva with HandiHaler] 18 mcg Capsule, W/Inhalation Device 18 mcg INH DAILY Qty: 1 RF: 0 insulin glargine [Lantus U-100 Insulin] 100 unit/mL Solution 20 unit SUBCUT BID Qty: 0 RF: 0 hydroxyzine HCl 25 mg Tablet 25 mg PO BID RF: 0 gabapentin 100 mg capsule 600 mg PO TID RF: 0 ipratropium-albuterol 0.5 mg-3 mg(2.5 mg base)/3 mL Solution For Nebulization 1 amp NEB Q4HR NEB Qty: 30 RF: 3 Status ED Status: With Doctor
[2018-10-06 19:54] LABS: Hemoglobin 9.2 gm/dL (13.0-17.0); Mean Corpuscular HGB Conc 29.6 % (32.0-36.0); Mean Corpuscular Hemoglobin 25.1 pg (27.0-34.0); Mean Corpuscular Volume 84.8 fL (80.0-100.0); Mean Platelet Volume 8.2 fL (7.0-11.0); Platelet Count 171 th/mm3 (150-450); Red Blood Count 3.65 mil/mm3 (4.50-5.90); White Blood Count 6.2 th/mm3 (4.0-11.0)
[2018-10-06 19:57] LABS: Activated Partial Thrombo Time 26.8 sec (23.4-31.7); INR 1.1 Ratio; Prothrombin Time 10.7 sec (9.8-11.6)
--- NOTE | 2018-10-06 20:04 | XR ---
EXAM DATE: 10/06/2018 7:26 PM EST AGE/SEX: 58 years / Male INDICATIONS: Shortness of breath, possible pulmonary disease. CLINICAL DATA: This is the patient's initial encounter. Patient reports that signs and symptoms have been present for 1 day and indicates a pain score of 0/10. MEDICAL/SURGICAL HISTORY: Hypertension. Chronic obstructive pulmonary disease. Congestive hea rt failure. Diabetes. Asthma. CABG. Pacemaker. COMPARISON: [facility] – [place], [place], CHEST 1V SINGLE AP, 09/25/2018. . FINDINGS: The heart is enlarged, similar to prior. Consolidation in the left lower lung with loss of delineatio n of the left hemidiaphragm and air bronchograms, similar to prior exam. The right lung is clear. Min imal thickening of the minor fissure on the right side may represent small pleural effusion. Cardiac pacer and evidence of median sternotomy. CONCLUSION: Left lower lung airspace opacities and cardiomegaly similar to 09/25/2018. Possible new small right ple ural effusion. Electronically signed by: Greyson Burns MD Board Certified Radiologist 10/06/2018 8:03 PM EST
[2018-10-06 20:06] LABS: Alanine Aminotransferase 22 U/L (12-78); Albumin 2.8 g/dL (3.4-5.0); Anion Gap 4 meq/L (5-15); Aspartate Aminotransferase 18 U/L (15-37); Blood Urea Nitrogen 17 mg/dL (7-18); Carbon Dioxide 40.1 meq/L (21.0-32.0); Chloride 97 meq/L (98-107); Glomerular Filtration Rate 66 mL/min (>89); Glucose,Random 101 mg/dL (74-106); Potassium 3.8 meq/L (3.5-5.1); Sodium 141 meq/L (136-145)
[2018-10-06 20:11] LABS: Alkaline Phosphatase 76 U/L (45-117); Total Protein 6.2 g/dL (6.4-8.2); Troponin I 0.02 ng/mL (0.02-0.05)
[2018-10-06 20:16] LABS: ABG Base Excess 14.9 mmol/L (-2-2); ABG PCO2 79 mmHg (38-42); ABG PO2 71 mmHg (61-120)
[2018-10-06 20:17] LABS: Creatine Kinase 57 U/L (39-308)
[2018-10-06 20:28] LABS: Eosinophils 3 % (0-4); Lymphocytes 8 % (9-44); Monocytes 5 % (0-8); Platelet Estimate Normal (Normal); Platelet Morphology Normal (Normal)
[2018-10-06] MEDS ORDERED: Azithromycin Inj 500 MG in Sodium Chlor 0.9% Inj 250 ML IV.SIG ONE (22:38)
--- NOTE | 2018-10-06 23:13 | P.HPCC ---
History of Present Illness Primary Care Physician: UNKNOWN History of Present Illness: 58 years old male presents for evaluation of shortness of breath. Patient has history of COPD and CHF. Patient started having shortness of breath intermittently since yesterday. Patient states that the shortness of breath got worse today. Patient states that he has intermittent coughing with productive sputum. EMS was called. Patient was given albuterol with Atrovent unit dose treatment, was placed on BiPAP and transported to ED for evaluation. Patient denies any fever chills. Patient denies any chest pain. Patient has history of COPD on 2 L nasal cannula at home. Patient has history of CAD status post CABG. Patient has history of atrial fibrillation on aspirin daily. Patient has history of Myopathy, CHF, AICD placement, hypertension, diabetes, hyperlipidemia, gout, chronic kidney disease stage III, status post CVA, history of bipolar disorder. He has been using his nebulizer treatment at home every 4 hours without much relief of the shortness of breath. Inpatient Certification: I certify that the inpatient services were ordered in accordance with Medicare regulations governing the order. This includes certification that hospital inpatient services are reasonable and necessary and in the case of services not specified as inpatient-only under 42 CFR 419.22(n), that they are appropriately provided as inpatient services in accordance to with the 2-midnight benchmark under 43 CFR 412.3(e) Review of Systems All other systems reviewed negative except as stated in HPI PMFSH - History History Provided By: Patient - Medical History Medical History: Medical History (Last Reviewed 10/06/18 @ 19:21 by Salas Salazar MD) A-fib Asthma Bipolar disorder COPD (chronic obstructive pulmonary disease) Cardiac defibrillator in place Chronic kidney disease, stage III (moderate) Congestive heart failure Coronary artery disease Depression with anxiety Diabetes Gout History of CVA (cerebrovascular accident) History of MRSA infection Onset Date: ~09/26/18 Hypertension MDRO (multiple drug resistant organisms) resistance Onset Date: ~08/08/18 - Surgical History Surgical History: Surgical History (Last Reviewed 10/06/18 @ 19:21 by Salas Salazar MD) AICD (automatic cardioverter/defibrillator) present H/O heart bypass surgery History of enucleation of right eyeball - Family History Family History: Family History (Last Reviewed 10/06/18 @ 19:21 by Salas Salazar MD) Other Coronary artery disease Diabetes mellitus - Tobacco History Second Hand Smoke Exposure: No Tobacco Use In Past 30 Days: No Smoking Status: Former smoker Tobacco Type: Cigarettes - Alcohol History How Often Do You Have a Drink Containing Alcohol: Never - Substance Use History Substance History: No History of Abuse - Travel History Recent Travel in the [place] Within the Last 8 Weeks: No Recent Travel Out of the Country Within the Last 8 Weeks: No - Immunization History Tetanus Immunization: Unsure Medications and Allergies Active Medications: Active Medications Azithromycin 500 mg/ Sodium (Chloride) 250 mls @ 250 mls/hr IV.SIG ONCE ONE Stop: 10/06/18 23:37 Allergies Allergy/AdvReac Type Severity Reaction Status Date / Time morphine AdvReac Mild Gastrointestinal Verified 09/25/18 19:47 Upset MRI PRECAUTION AdvReac Severe PACEMAKER Uncoded 03/24/18 12:04 (JLT), BULLET FRAGMENTS IN SINUS CAVITY Home Medications Medication Instructions Recorded Confirmed Type amiodarone 200 mg PO BID 03/24/18 10/06/18 History allopurinol 100 mg PO DAILY 08/03/18 10/06/18 History aspirin 325 mg PO DAILY 08/03/18 10/06/18 History beclomethasone dipropionate [Qvar 1 puff INHALATION Q12H 08/03/18 10/06/18 History RediHaler] clonidine HCl 0.1 mg PO BID 08/03/18 10/06/18 History furosemide 20 mg PO DAILY 08/03/18 10/06/18 History insulin regular human [Novolin R 1 sliding scale dose SUBCUT UD 08/03/18 History Regular U-100 Insuln] sertraline 25 mg PO BID 08/03/18 10/06/18 History tamsulosin 0.4 mg PO DAILY 08/03/18 10/06/18 History gabapentin 600 mg PO TID 09/25/18 10/06/18 History hydroxyzine HCl 25 mg PO BID 09/25/18 10/06/18 History Results - Labs CBC & Chem 7: 10/06/18 19:38 10/06/18 19:38 Labs: Short CBC 10/06/18 Range/Units 19:38 WBC 6.2 (4.0-11.0) th/mm3 Hgb 9.2 L (13.0-17.0) gm/dL Hct 31.0 L (39.0-51.0) % Plt Count 171 (150-450) th/mm3 BMP 10/06/18 19:38 Sodium 141 Potassium 3.8 Chloride 97 L Carbon Dioxide 40.1 H BUN 17 Creatinine 1.15 Calcium 8.0 L Cardiac Enzymes 10/06/18 Range/Units 19:38 Total Creatine Kinase 57 (39-308) U/L Troponin I 0.02 (0.02-0.05) ng/mL Liver Function 10/06/18 Range/Units 19:38 Total Bilirubin 0.4 (0.2-1.0) mg/dL AST 18 (15-37) U/L ALT 22 (12-78) U/L Alkaline Phosphatase 76 (45-117) U/L Albumin 2.8 L (3.4-5.0) g/dL - Imaging Impressions Chest X-Ray 10/06/18 19:12 CONCLUSION: Left lower lung airspace opacities and cardiomegaly similar to 09/25/2018. Possible new small right pleural effusion. Exam Vital signs: Vital Signs 10/06/18 18:50 10/06/18 18:55 10/06/18 19:14 Pulse Rate 82 76 Respiratory Rate 18 22 Blood Pressure 127/65 117/66 Pulse Oximetry 100 100 97 10/06/18 21:35 10/06/18 21:53 Pulse Rate 71 Respiratory Rate 20 Blood Pressure 118/60 Pulse Oximetry 98 99 Intake & Output 10/06/18 10/06/18 10/07/18 06:59 18:59 06:59 Weight 149.685 kg - Constitutional moderate distress - Routine HEENT Exam Head: Present: normocephalic Eye: Present: PERRL ENT: Present: mucous membranes moist - Routine Neck Exam Absent: JVD, carotid bruit - Routine Respiratory Exam Present: accessory muscle use, rhonchi, wheezes, crackles. Absent: stridor - Routine Cardiovascular Exam Present: RRR, S1, tachycardia - Routine Abdominal Exam Present: soft, normoactive bowel sounds - Routine Extremities Exam Present: edema. Absent: cyanosis, clubbing - Routine Skin Exam Present: intact. Absent: cyanosis, erythema - Routine Neurological Exam Present: alert, oriented X3, moving all extremities Septic Shock Reassessment Septic shock perfusion: reassessment completed Caprini VTE Risk Assessment Caprini VTE Risk Assessment: Moderate/High Risk (score >= 2) Caprini Risk Assessment Model: Point Value = 1 Point Value = 2 Point Value = 3 Point Value = 5 Age 41-60 Minor surgery BMI > 25 kg/m2 Swollen legs Varicose veins or History of unexplained or recurrent spontaneous Oral contraceptives or hormone replacement Sepsis (< 1 month) Serious lung disease, including pneumonia (< 1 month) Abnormal pulmonary function Acute myocardial infarction Congestive heart failure (< 1 month) History of inflammatory bowel disease Medical patient at bed rest Age 61-74 Arthroscopic surgery Major open surgery (> 45 min) Laparoscopic surgery (> 45 min) Malignancy Confined to bed (> 72 hours) Immobilizing plaster cast Central venous access Age >= 75 History of VTE Family history of VTE Factor V Leiden Prothrombin [id number] Lupus anticoagulant Anticardiolipin antibodies Elevated serum homocysteine Heparin-induced thrombocytopenia Other congenital or acquired thrombophilia Stroke (< 1 month) Elective arthroplasty Hip, pelvis, or leg fracture Acute spinal cord injury (< 1 month) Prophylaxis Regimen: Total Risk Factor Score Risk Level Prophylaxis Regimen 0-1 Low Early ambulation 2 Moderate Order ONE of the following: *Sequential Compression Device (SCD) *Heparin 5000 units SQ BID 3-4 Higher Order ONE of the following medications: *Heparin 5000 units SQ TID *Enoxaparin/Lovenox 40 mg SQ daily (WT < 150 kg, CrCl > 30 mL/min) *Enoxaparin/Lovenox 30 mg SQ daily (WT < 150 kg, CrCl > 10-29 mL/min) *Enoxaparin/Lovenox 30 mg SQ BID (WT < 150 kg, CrCl > 30 mL/min) AND/OR *Sequential Compression Device (SCD) 5 or more Highest Order ONE of the following medications: *Heparin 5000 units SQ TID (Preferred with Epidurals) *Enoxaparin/Lovenox 40 mg SQ daily (WT < 150 kg, CrCl > 30 mL/min) *Enoxaparin/Lovenox 30 mg SQ daily (WT < 150 kg, CrCl > 10-29 mL/min) *Enoxaparin/Lovenox 30 mg SQ BID (WT < 150 kg, CrCl > 30 mL/min) AND *Sequential Compression Device (SCD) Assessment and Plan - Assessment and Plan Plan: COPD exacerbation -Empiric antibiotic -IV steroids -BiPAP PRN -DuoNeb scheduled and as needed -Spiriva A-fib -Aspirin Depression with anxiety -Hydroxyzine -Zoloft Diabetes -Levemir -Insulin sliding scale Gout -Allopurinol Hypertension -Norvasc -Lasix -Clonidine DVT GI prophylaxis -Teds SCDs -Subcu heparin -Pepcid Level 2
[2018-10-06] MEDS ORDERED: Bisacodyl 10 MG Supp RECTAL PRN (23:21)
[2018-10-06] MEDS ORDERED: Acetaminophen 325 MG Tablet PO PRN (23:21)
[2018-10-06] MEDS ORDERED: Dextrose 50% in Water 50 ML Vial IV.PUSH PRN (23:26)
[2018-10-07] MEDS: Heparin - SQ 10,000 UNITS/ML Vial SQ SCH ×4 (00:38→23:52)
[2018-10-07] MEDS: Chlorhexidine Gluconate 2% 1 Pack (2 Cloths) TOPICAL SCH (01:00)
[2018-10-07] MEDS ORDERED: Chlorhexidine Gluconate 2% 1 Pack (2 Cloths) TOPICAL PRN (04:00)
[2018-10-07 05:18] LABS: Baso % (Auto) 0.6 % (0.0-2.0); Eos % (Auto) 0.2 % (0.0-4.0); Hematocrit 31.6 % (39.0-51.0); Hemoglobin 9.4 gm/dL (13.0-17.0); Lymph # (Auto) 0.2 th/mm3 (1.0-4.8); Lymph % (Auto) 3.9 % (9.0-44.0); Mean Corpuscular Hemoglobin 25.3 pg (27.0-34.0); Mean Corpuscular Volume 84.9 fL (80.0-100.0); Mean Platelet Volume 8.1 fL (7.0-11.0); Mono # (Auto) 0.1 th/mm3 (0.0-0.9); Mono % (Auto) 1.4 % (0.0-8.0); Neut # (Auto) 5.1 th/mm3 (1.8-7.7); Neut % (Auto) 93.9 % (16.0-70.0); Platelet Count 157 th/mm3 (150-450); Red Blood Count 3.72 mil/mm3 (4.50-5.90); Red Cell Distribution Width 18.4 % (11.6-17.2); White Blood Count 5.4 th/mm3 (4.0-11.0)
[2018-10-07 05:21] LABS: Mean Corpuscular HGB Conc 29.8 % (32.0-36.0)
[2018-10-07 05:25] LABS: Activated Partial Thrombo Time 27.7 sec (23.4-31.7); INR 1.1 Ratio; Prothrombin Time 10.8 sec (9.8-11.6)
[2018-10-07 05:41] LABS: Albumin 2.7 g/dL (3.4-5.0); Anion Gap 5 meq/L (5-15); Aspartate Aminotransferase 14 U/L (15-37); Blood Urea Nitrogen 18 mg/dL (7-18); Calcium 8.1 mg/dL (8.5-10.1); Carbon Dioxide 39.5 meq/L (21.0-32.0); Chloride 98 meq/L (98-107); Glomerular Filtration Rate 75 mL/min (>89); Glucose,Random 197 mg/dL (74-106); Magnesium 2.3 mg/dL (1.5-2.5); Potassium 4.5 meq/L (3.5-5.1); Sodium 142 meq/L (136-145)
[2018-10-07 05:45] LABS: Alanine Aminotransferase 22 U/L (12-78); Alkaline Phosphatase 73 U/L (45-117); Phosphorus 3.6 mg/dL (2.5-4.9); Total Protein 6.2 g/dL (6.4-8.2)
[2018-10-07] MEDS ORDERED: MethylPREDNISolone Sod Succinate Inj 40 MG/ML Vial IV.PUSH SCH (06:00)
[2018-10-07] MEDS: Beclomethasone Dipropionate 80 MCG/ACT 10.6 GM Inhaler INH SCH ×3 (06:05→23:52)
[2018-10-07] MEDS ORDERED: Insulin NovoLIN Regular Correctional Sugar Inj SQ SCH (08:00)
[2018-10-07] MEDS ORDERED: Dextrose 50% in Water 50 ML Vial IV.PUSH PRN (08:32)
--- NOTE | 2018-10-07 08:34 | P.PNIM ---
Subjective Interval history: Follow-up COPD. He is breathing better currently on nasal cannula at 5 L Physical Exam Vital signs: Vital Signs 10/06/18 18:50 10/06/18 18:55 10/06/18 19:14 Temperature Pulse Rate 82 76 Respiratory Rate 18 22 Blood Pressure 127/65 117/66 Pulse Oximetry 100 100 97 10/06/18 21:35 10/06/18 21:53 10/06/18 23:40 Temperature Pulse Rate 71 76 Respiratory Rate 20 18 Blood Pressure 118/60 Pulse Oximetry 98 99 10/06/18 23:41 10/07/18 00:10 10/07/18 00:16 Temperature Pulse Rate 74 87 Respiratory Rate 20 28 H Blood Pressure 144/67 H Pulse Oximetry 95 91 L 100 10/07/18 00:17 10/07/18 01:00 10/07/18 01:01 Temperature Pulse Rate 75 80 77 Respiratory Rate 22 31 H 30 H Blood Pressure 166/74 H 128/60 128/60 Pulse Oximetry 100 100 100 10/07/18 02:00 10/07/18 02:07 10/07/18 03:00 Temperature Pulse Rate 78 80 77 Respiratory Rate 19 20 20 Blood Pressure 144/68 H Pulse Oximetry 100 100 99 10/07/18 03:01 10/07/18 03:14 10/07/18 03:15 Temperature Pulse Rate 76 73 Respiratory Rate 18 26 H Blood Pressure 158/76 H Pulse Oximetry 100 100 10/07/18 03:18 10/07/18 04:00 10/07/18 04:07 Temperature 98.3 F Pulse Rate 75 76 Respiratory Rate 19 21 Blood Pressure 134/62 Pulse Oximetry 100 100 98 10/07/18 05:00 10/07/18 05:04 10/07/18 06:00 Temperature Pulse Rate 78 79 73 Respiratory Rate 15 14 13 Blood Pressure 134/63 Pulse Oximetry 93 L 100 99 10/07/18 06:01 10/07/18 07:00 10/07/18 07:01 Temperature Pulse Rate 72 81 73 Respiratory Rate 15 22 16 Blood Pressure 142/65 H 126/58 L Pulse Oximetry 99 99 99 10/07/18 07:41 Temperature Pulse Rate 83 Respiratory Rate 18 Blood Pressure Pulse Oximetry Intake & Output 10/06/18 10/07/18 10/07/18 18:59 06:59 18:59 Intake Total 590 / 590 Output Total 600 / 600 Balance -10 / -10 Weight 149.685 kg 165.5 kg Intake: IV 350 / 350 Azithromycin Inj 500 MG In NS 250 / 250 Inj 250 ML @ 250 mls/hr IV.SIG ONCE ONE Rx#:[id number] Rocephin Inj 1,000 MG In NS Inj 100 / 100 100 ML @ 200 mls/hr IV.SIG ONCE ONE Rx#:[id number] Oral 240 / 240 Output: Urine 600 / 600 Other: # Voids 1 Weight On Admission 165.5 kg Narrative: GENERAL: Well-developed and well-nourished SKIN: Warm and dry. CARDIOVASCULAR: Regular rate and rhythm without murmurs, gallops, or rubs. RESPIRATORY: Breath sounds equal bilaterally. No accessory muscle use. GASTROINTESTINAL: Abdomen soft, non-tender, nondistended. MUSCULOSKELETAL: No cyanosis, or edema. BACK: Nontender without obvious deformity. No CVA tenderness. Results Labs CBC & Chem 7: 10/07/18 03:50 10/07/18 03:50 Labs: Microbiology 10/06/18 21:05 Nasal Wash Influenza Types A,B Antigen - Final Negative for FLU A and B antigen Infection due to influenza A or B cannot be ruled out since the antigen present in the sample may be below the detection limit of the test. Imaging Imaging: ITS Impressions Chest X-Ray 10/06/18 19:12 CONCLUSION: Left lower lung airspace opacities and cardiomegaly similar to 09/25/2018. Possible new small right pleural effusion. Procedures Procedures: none Assessment and Plan Plan COPD exacerbation with acute on CRF status post BiPAP -Negative for flu empiric antibiotic (Rocephin and Zithromax) to be switched to p.o. doxycycline -Wean IV steroids -BiPAP PRN -DuoNeb scheduled and as needed -Spiriva -Outpatient follow-up with Dr. Koehler undergoing workup for sleep apnea CHF/cardiomyopathy status post AICD. BNP 52 chest x-ray with small right pleural effusion A-fib currently sinus rhythm -Aspirin Depression with anxiety -Hydroxyzine -Zoloft Diabetes. Stable -Levemir -Insulin sliding scale Gout -Allopurinol Hypertension. Stable -Norvasc -Lasix -Clonidine DVT GI prophylaxis -Teds SCDs -Subcu heparin -Pepcid Transfer to floor possible discharge tomorrow Progress Note: Quality VTE Deep Vein Thrombosis/Pulmonary Embolism Present on Admission: No
[2018-10-07] MEDS: Allopurinol 100 MG Tablet PO SCH (09:26)
[2018-10-07] MEDS: Gabapentin 300 MG Capsule PO SCH ×3 (09:26→17:41)
[2018-10-07] MEDS: Mupirocin 2% Nasal Oint Topical Syringe EACH NARE SCH ×2 (09:26→20:52)
[2018-10-07] MEDS: Aspirin 325 MG Tablet PO SCH (09:26)
[2018-10-07] MEDS: Insulin Detemir Inj 1,000 UNIT/10 ML Vial SQ SCH ×2 (09:26→20:52)
[2018-10-07] MEDS: Amiodarone 200 MG Tablet PO SCH ×2 (09:26→20:51)
[2018-10-07] MEDS: Sertraline 50 MG Tablet PO SCH ×2 (09:26→20:54)
[2018-10-07] MEDS: Furosemide 20 MG Tablet PO SCH (09:26)
[2018-10-07] MEDS: Senna/Docusate Sodium 8.6/50 MG Tablet PO SCH ×2 (09:26→20:51)
[2018-10-07] MEDS: Famotidine 20 MG Tablet PO SCH ×2 (09:26→20:51)
[2018-10-07] MEDS: Tiotropium Bromide 18 MCG/ACT Inhaler INH SCH (12:54)
[2018-10-07] MEDS: Insulin NovoLOG Aspart Correctional Sugar Inj SQ SCH ×3 (13:00→20:53)
--- NOTE | 2018-10-07 13:23 | ECG ---
Date Performed: 10/06/2018 Time Performed: 20:16:43 PTAGE: 58 years EKG: Sinus rhythm WITH OCCASIONAL VENTRICULAR PREMATURE COMPLEXES INTRAVENTRICULAR CONDUCTION DELAY POSSIBLE INFERIOR MYOCARDIAL INFARCTION ABNORMAL ECG PREVIOUS TRACING : 09/25/2018 19.53 Since the previous tracing, no significant change noted DOCTOR: Cortez King Interpretating Date/Time 10/07/2018 13:21:11
--- NOTE | 2018-10-07 15:29 | P.DCO ---
Physical Therapy Order: Evaluate and treat, Improve ambulation and Strength and gait training Home Health Nursing Order: Medical education, Signs/symptoms of disease process, Oxygen administration education, Medication education-adverse effect and Nursing assessment with vital signs Case Management Consult Case Management Consult-Home Health: Yes I have seen patient Buster Jackson on 10/07/18. My clinical findings support the need for the requested home health care services because: Patient has SOB and Deconditioned with increased weakness I certify that my clinical findings support that this patient is homebound because: Hx COPD - exertion dyspnea/weakness
[2018-10-07] MEDS: Morphine Inj 4 MG/ML Vial IV.PUSH PRN ×2 (16:28→21:40)
[2018-10-07] MEDS: MethylPREDNISolone Sod Succinate Inj 40 MG/ML Vial IV.PUSH SCH (20:53)
[2018-10-07] MEDS ORDERED: Azithromycin Inj 500 MG in Sodium Chlor 0.9% Inj 250 ML IV.SIG SCH (22:00)
[2018-10-08] MEDS: Chlorhexidine Gluconate 2% 1 Pack (2 Cloths) TOPICAL SCH (06:04)
[2018-10-08] MEDS: Heparin - SQ 10,000 UNITS/ML Vial SQ SCH ×3 (06:48→22:40)
[2018-10-08] MEDS: Sertraline 50 MG Tablet PO SCH ×2 (09:28→20:47)
[2018-10-08] MEDS: Senna/Docusate Sodium 8.6/50 MG Tablet PO SCH ×2 (09:29→20:45)
[2018-10-08] MEDS: Furosemide 20 MG Tablet PO SCH (09:29)
[2018-10-08] MEDS: Gabapentin 300 MG Capsule PO SCH ×3 (09:29→17:43)
[2018-10-08] MEDS: Aspirin 325 MG Tablet PO SCH (09:29)
[2018-10-08] MEDS: Famotidine 20 MG Tablet PO SCH ×2 (09:29→20:45)
[2018-10-08] MEDS: Allopurinol 100 MG Tablet PO SCH (09:29)
[2018-10-08] MEDS: Mupirocin 2% Nasal Oint Topical Syringe EACH NARE SCH ×2 (09:30→20:44)
[2018-10-08] MEDS: MethylPREDNISolone Sod Succinate Inj 40 MG/ML Vial IV.PUSH SCH ×2 (09:30→20:45)
[2018-10-08] MEDS: Amiodarone 200 MG Tablet PO SCH ×2 (09:30→20:45)
[2018-10-08] MEDS: Insulin NovoLOG Aspart Correctional Sugar Inj SQ SCH ×4 (09:42→21:05)
[2018-10-08] MEDS: Insulin Detemir Inj 1,000 UNIT/10 ML Vial SQ SCH ×2 (09:42→20:46)
[2018-10-08] MEDS: Beclomethasone Dipropionate 80 MCG/ACT 10.6 GM Inhaler INH SCH ×2 (12:37→22:45)
--- NOTE | 2018-10-08 12:40 | P.PNIM ---
Subjective Interval history: Patient laying down in bed, he is starting to feel better. Still gets sob when moving around. Physical Exam Vital signs: Vital Signs 10/07/18 13:00 10/07/18 13:02 10/07/18 14:00 Temperature Pulse Rate 81 81 78 Respiratory Rate 27 H 27 H 23 Blood Pressure 121/58 L Pulse Oximetry 93 L 93 L 93 L 10/07/18 14:01 10/07/18 15:00 10/07/18 15:36 Temperature Pulse Rate 77 72 72 Respiratory Rate 25 H 25 H 20 Blood Pressure 125/60 Pulse Oximetry 93 L 97 96 10/07/18 16:00 10/07/18 16:19 10/07/18 17:00 Temperature 98.7 F Pulse Rate 80 79 77 Respiratory Rate 29 H 43 H 24 Blood Pressure 118/57 L Pulse Oximetry 93 L 94 L 94 L 10/07/18 17:01 10/07/18 18:00 10/07/18 18:01 Temperature Pulse Rate 77 80 80 Respiratory Rate 26 H 23 21 Blood Pressure 122/60 131/61 Pulse Oximetry 93 L 95 90 L 10/07/18 19:00 10/07/18 19:34 10/07/18 20:00 Temperature 99.1 F Pulse Rate 93 H 79 78 Respiratory Rate 28 H 19 17 Blood Pressure 133/62 134/62 Pulse Oximetry 94 L 100 97 10/07/18 21:00 10/07/18 22:00 10/07/18 23:00 Temperature Pulse Rate 79 81 78 Respiratory Rate 21 21 20 Blood Pressure 112/75 124/59 L 139/67 Pulse Oximetry 97 95 95 10/07/18 23:09 10/07/18 23:24 10/08/18 00:00 Temperature 98.1 F Pulse Rate 74 72 Respiratory Rate 17 21 Blood Pressure 136/63 Pulse Oximetry 97 96 10/08/18 01:00 10/08/18 02:00 10/08/18 03:00 Temperature Pulse Rate 74 79 71 Respiratory Rate 26 H 36 H 17 Blood Pressure Pulse Oximetry 94 L 89 L 98 10/08/18 03:36 10/08/18 04:00 10/08/18 04:15 Temperature 98.4 F Pulse Rate 69 70 Respiratory Rate 20 21 Blood Pressure 158/66 H Pulse Oximetry 96 94 L 10/08/18 06:00 10/08/18 07:19 10/08/18 09:51 Temperature Pulse Rate 67 Respiratory Rate Blood Pressure Pulse Oximetry 97 100 10/08/18 11:58 Temperature Pulse Rate 70 Respiratory Rate 20 Blood Pressure Pulse Oximetry Intake & Output 10/07/18 10/08/18 10/08/18 18:59 06:59 18:59 Intake Total 1680 / 1680 300 / 300 Output Total 450 / 450 Balance 1680 / 1680 -150 / -150 Weight 165 kg Intake: Oral 1680 / 1680 300 / 300 Output: Urine 450 / 450 Other: # Voids 4 3 Date of Last Bowel Movement 10/07/18 10/07/18 # Bowel Movements 1 Narrative: patient laying down in bed. Complains of sob when he begins to move around S1S2 B/l wheezing No edema of the exts No focal neuro deficits. Results - Labs CBC & Chem 7: 10/07/18 03:50 10/07/18 03:50 Laboratory Results - last 24 hr 10/07/18 10/07/18 10/07/18 12:53 17:28 20:26 POC Glucose 388 H 219 H 287 H 10/08/18 09:26 POC Glucose 240 H - Procedures none Assessment and Plan - Plan Patient is a 58 y/o male with COPD on 2L, cad s/p cabg, DM, HTN, dld, gout, CKD stage III, hx cva, bipolar disorder, and CHF s/p aicd. Patient had sob over a few days prior to admission. Symptoms were getting worse and EMS was called and pt was brought in. 1. Acute hypoxic hypercapnic resp failure 2/2 COPD exacerbation Patient requiring supplemental oxygen more than baseline, abg shows hypercapnia. Patient is currently on 3 L of oxygen, continue to titrate to baseline 2 L keep o2 sats above 92% CXR show b/l basilar opacities Cont breathing txs, continue steroids, cont antibiotics. After discharge outpt follow up with Dr. Koehler for TANA. 2. A fib Continue amiodarone Patient is on aspirin. Continue aspirin. 3. DM insulin dependent Blood sugars ranging from around 120-350 Continue to titrate off of steroids likely contributing to the elevated blood sugars. Diabetic diet. Continue basal insulin and sliding scale. Adjust meds as needed 4. CAD s/p cabg/ hx of cva/ CHF s/p aicd cont aspirin atorvastatin started. Patient likely has systolic chf given his aicd. I do not see a recent echo. Cont aspirin, pt is not a a betablocker or an aaron inhibitor but will likely benefit from it given his CHF. He should definitely follow up with cardiology outpt once he is ready for discharge. 5. Gout Cont allopurinol Heparin for DVT prophylaxis
[2018-10-08] MEDS: Tiotropium Bromide 18 MCG/ACT Inhaler INH SCH (14:58)
[2018-10-08] MEDS: Morphine Inj 4 MG/ML Vial IV.PUSH PRN (20:47)
[2018-10-08] MEDS: Temazepam 15 MG Capsule PO PRN (22:41)
[2018-10-09] MEDS: Chlorhexidine Gluconate 2% 1 Pack (2 Cloths) TOPICAL SCH (05:28)
[2018-10-09] MEDS: Famotidine 20 MG Tablet PO SCH ×2 (08:35→21:56)
[2018-10-09] MEDS: Aspirin 325 MG Tablet PO SCH (08:35)
[2018-10-09] MEDS: Gabapentin 300 MG Capsule PO SCH ×3 (08:35→17:02)
[2018-10-09] MEDS: Senna/Docusate Sodium 8.6/50 MG Tablet PO SCH ×2 (08:35→21:57)
[2018-10-09] MEDS: Allopurinol 100 MG Tablet PO SCH (08:36)
[2018-10-09] MEDS: Sertraline 50 MG Tablet PO SCH ×2 (08:36→21:56)
[2018-10-09] MEDS: Amiodarone 200 MG Tablet PO SCH ×2 (08:36→21:56)
[2018-10-09] MEDS: Furosemide 20 MG Tablet PO SCH (08:36)
[2018-10-09] MEDS: Tiotropium Bromide 18 MCG/ACT Inhaler INH SCH (08:37)
[2018-10-09] MEDS: Mupirocin 2% Nasal Oint Topical Syringe EACH NARE SCH ×2 (08:40→21:57)
[2018-10-09] MEDS: MethylPREDNISolone Sod Succinate Inj 40 MG/ML Vial IV.PUSH SCH ×2 (08:41→21:57)
[2018-10-09] MEDS: Heparin - SQ 10,000 UNITS/ML Vial SQ SCH ×3 (08:41→22:41)
[2018-10-09] MEDS: Insulin NovoLOG Aspart Correctional Sugar Inj SQ SCH ×4 (08:48→21:58)
[2018-10-09] MEDS: Insulin Detemir Inj 1,000 UNIT/10 ML Vial SQ SCH ×2 (08:48→22:00)
[2018-10-09 12:01] LABS: Calcium 8.2 mg/dL (8.5-10.1); Carbon Dioxide 37.8 meq/L (21.0-32.0); Magnesium 2.3 mg/dL (1.5-2.5); Potassium 4.5 meq/L (3.5-5.1)
[2018-10-09] MEDS: Beclomethasone Dipropionate 80 MCG/ACT 10.6 GM Inhaler INH SCH (12:22)
[2018-10-09] MEDS: Morphine Inj 4 MG/ML Vial IV.PUSH PRN ×2 (16:57→22:41)
--- NOTE | 2018-10-09 20:39 | P.PNIM ---
Subjective Interval history: Follow up for COPD exacerbation, hypoxic and hypercapnic respiratory failure. Patient is doing well. He is using BiPAP intermittently. No fever, chills. Wants to use something for bowel movement. Physical Exam Vital signs: Vital Signs 10/08/18 22:00 10/08/18 23:24 10/09/18 00:00 Temperature 98.2 F Pulse Rate 76 68 69 Respiratory Rate 19 18 Blood Pressure 182/93 H Pulse Oximetry 96 97 10/09/18 02:00 10/09/18 04:00 10/09/18 04:09 Temperature 98.3 F Pulse Rate 62 69 70 Respiratory Rate 24 21 Blood Pressure 133/66 Pulse Oximetry 97 94 L 10/09/18 06:00 10/09/18 07:21 10/09/18 08:00 Temperature 97.7 F Pulse Rate 60 59 L Respiratory Rate 19 Blood Pressure 129/60 Pulse Oximetry 99 97 10/09/18 10:00 10/09/18 12:00 10/09/18 14:00 Temperature 98.0 F Pulse Rate 67 68 59 L Respiratory Rate 19 Blood Pressure 135/62 Pulse Oximetry 96 10/09/18 15:58 10/09/18 16:00 10/09/18 18:00 Temperature 98.4 F Pulse Rate 64 65 84 Respiratory Rate 24 20 Blood Pressure 102/50 L Pulse Oximetry 97 97 10/09/18 19:33 Temperature Pulse Rate 68 Respiratory Rate 22 Blood Pressure Pulse Oximetry 96 Intake & Output 10/09/18 10/09/18 10/10/18 06:59 18:59 06:59 Intake Total 500 / 500 1100 / 1100 Output Total 900 / 900 975 / 975 Balance -400 / -400 125 / 125 Weight 164.5 kg Intake: Oral 500 / 500 1100 / 1100 Output: Urine 900 / 900 975 / 975 Stool 0 / 0 Urine/Stool Mix 0 / 0 Other: # Voids 5 Date of Last Bowel Movement 10/07/18 10/07/18 # Bowel Movements 0 0 # Incontinent Bowel Movements 0 Narrative: GENERAL: Alert, NAD. Morbidly obese. SKIN: Warm and dry. HEAD: Normocephalic. EYES: No scleral icterus. No injection or drainage. NECK: Supple, trachea midline. No JVD or lymphadenopathy. CARDIOVASCULAR: Regular rate and rhythm without murmurs, gallops, or rubs. RESPIRATORY: Breath sounds equal bilaterally. No accessory muscle use. GASTROINTESTINAL: Abdomen soft, non-tender, nondistended. MUSCULOSKELETAL: No cyanosis, or edema. BACK: Nontender without obvious deformity. No CVA tenderness. Results Labs CBC & Chem 7: 10/07/18 03:50 10/09/18 10:52 Procedures Procedures: none Assessment and Plan Plan Patient is a 58 y/o male with COPD on 2L, cad s/p cabg, DM, HTN, dld, gout, CKD stage III, hx cva, bipolar disorder, and CHF s/p aicd. Patient had sob over a few days prior to admission. Symptoms were getting worse and EMS was called and pt was brought in. 1. Acute hypoxic hypercapnic resp failure 2/2 COPD exacerbation Patient requiring supplemental oxygen more than baseline, abg shows hypercapnia. Patient is currently on 3 L of oxygen, continue to titrate to baseline 2 L keep o2 sats above 92% CXR show b/l basilar opacities Cont breathing txs, continue steroids, cont antibiotics (doxycycline) After discharge outpt follow up with Dr. Koehler for TANA. 2. A fib Continue amiodarone [id number] score is likely 1 (Diabetes). Continue aspirin. 3. DM insulin dependent BG elevated. Increase Levemir 20 --> 25 units BID, Change sliding scale to Medium 4. CAD s/p cabg/ hx of cva/ CHF s/p aicd cont aspirin atorvastatin started. Patient's BNP Was 52. Most likely stable CHF. 5. Gout Cont allopurinol Full code. Heparin for DVT prophylaxis Progress Note: Quality VTE Deep Vein Thrombosis/Pulmonary Embolism Present on Admission: No
[2018-10-09] MEDS: Temazepam 15 MG Capsule PO PRN (21:55)
[2018-10-10] MEDS: Beclomethasone Dipropionate 80 MCG/ACT 10.6 GM Inhaler INH SCH ×2 (00:09→12:42)
[2018-10-10] MEDS: Chlorhexidine Gluconate 2% 1 Pack (2 Cloths) TOPICAL SCH (04:01)
[2018-10-10] MEDS: Gabapentin 300 MG Capsule PO SCH ×3 (08:04→17:12)
[2018-10-10] MEDS: Amiodarone 200 MG Tablet PO SCH (08:05)
[2018-10-10] MEDS: Senna/Docusate Sodium 8.6/50 MG Tablet PO SCH (08:05)
[2018-10-10] MEDS: Furosemide 20 MG Tablet PO SCH (08:06)
[2018-10-10] MEDS: Sertraline 50 MG Tablet PO SCH (08:06)
[2018-10-10] MEDS: Famotidine 20 MG Tablet PO SCH (08:06)
[2018-10-10] MEDS: MethylPREDNISolone Sod Succinate Inj 40 MG/ML Vial IV.PUSH SCH (08:07)
[2018-10-10] MEDS: Allopurinol 100 MG Tablet PO SCH (08:07)
[2018-10-10] MEDS: Aspirin 325 MG Tablet PO SCH (08:07)
[2018-10-10] MEDS: Insulin NovoLOG Aspart Correctional Sugar Inj SQ SCH ×3 (08:08→17:48)
[2018-10-10] MEDS: Heparin - SQ 10,000 UNITS/ML Vial SQ SCH ×2 (08:08→17:12)
[2018-10-10] MEDS: Insulin Detemir Inj 1,000 UNIT/10 ML Vial SQ SCH (08:08)
[2018-10-10] MEDS: Mupirocin 2% Nasal Oint Topical Syringe EACH NARE SCH (08:15)
[2018-10-10] MEDS: Tiotropium Bromide 18 MCG/ACT Inhaler INH SCH (08:15)
--- NOTE | 2018-10-10 17:41 | P.DS ---
DS: Providers Date of admission: 10/06/18 22:50 Primary care physician: UNKNOWN Consults: 10/06/18 23:21 Consult to Hospitalist Routine Consulting Provider: Lisha Lott Reason for Consultation: COPD exacerbation Notified:: Service Spoke with:: mary Date Notified:: 10/07/18 Time Notified:: 00:00 Ordering Provider: RJ Brief History from admission: 58 years old male presents for evaluation of shortness of breath. Patient has history of COPD and CHF. Patient started having shortness of breath intermittently since yesterday. Patient states that the shortness of breath got worse today. Patient states that he has intermittent coughing with productive sputum. EMS was called. Patient was given albuterol with Atrovent unit dose treatment, was placed on BiPAP and transported to ED for evaluation. Patient denies any fever chills. Patient denies any chest pain. Patient has history of COPD on 2 L nasal cannula at home. Patient has history of CAD status post CABG. Patient has history of atrial fibrillation on aspirin daily. Patient has history of Myopathy, CHF, AICD placement, hypertension, diabetes, hyperlipidemia, gout, chronic kidney disease stage III, status post CVA, history of bipolar disorder. He has been using his nebulizer treatment at home every 4 hours without much relief of the shortness of breath. DS: Summary Patient is a 58 y/o male with COPD on 2L, cad s/p cabg, DM, HTN, dld, gout, CKD stage III, hx cva, bipolar disorder, and CHF s/p aicd. Patient had sob over a few days prior to admission. Symptoms were getting worse and EMS was called and pt was brought in. 1. Acute hypoxic hypercapnic resp failure 2/2 COPD exacerbation Patient is currently on 3 L of oxygen. Has O2 at home. keep o2 sats above 92% CXR show b/l basilar opacities Cont breathing txs, continue steroids, cont antibiotics (doxycycline) After discharge outpt follow up with Dr. Koehler for TANA. 2. A fib Continue amiodarone [id number] score is likely 1 (Diabetes). Continue aspirin. 3. DM insulin dependent BG elevated, likely due to steroid use. Continue Levemir 20 units BID, Change sliding scale to Medium 4. CAD s/p cabg/ hx of cva/ CHF s/p aicd cont aspirin atorvastatin started. Patient's BNP Was 52. Most likely stable CHF. 5. Gout Cont allopurinol Full code. Heparin for DVT prophylaxis Overall, patient is doing well. His respiratory status back to baseline. He wants to go home. His brother lives with him. He will follow up with Dr. Koehler in the outpatient setting with regards to TANA. He remains hemodynamically stable. We will discharge patient home with home health. Time Spent with Patient Total time spent providing and/or coordinating discharge services: Less than 30 minutes Quality: VTE Deep Vein Thrombosis/Pulmonary Embolism Present on Admission: No Exam Narrative Exam Narrative: GENERAL: Alert, NAD. Morbidly obese. SKIN: Warm and dry. HEAD: Normocephalic. EYES: No scleral icterus. No injection or drainage. NECK: Supple, trachea midline. No JVD or lymphadenopathy. CARDIOVASCULAR: Regular rate and rhythm without murmurs, gallops, or rubs. RESPIRATORY: Moderate air entry. No accessory muscle use. On nasal cannula. GASTROINTESTINAL: Abdomen soft, non-tender, nondistended. MUSCULOSKELETAL: No cyanosis, or edema. BACK: Nontender without obvious deformity. No CVA tenderness. Results Procedures completed during hospitalization: none Labs on day of discharge: Labs from last 24 hours 10/10/18 10/10/18 10/10/18 17:16 12:29 07:24 POC Glucose 292 H 277 H 287 H 10/09/18 20:11 POC Glucose 251 H Impressions ITS Impressions Chest X-Ray 10/06/18 19:12 CONCLUSION: Left lower lung airspace opacities and cardiomegaly similar to 09/25/2018. Possible new small right pleural effusion. Discharge Plan Discharge Disposition Patient Disposition: Disch W/Home Health Service Discharge Condition Condition: Stable Discharge Order Discharge Orders: Discharge Order (Routine); Ordered 10/10/18 Ordered By: Mary Jane Rodriguez Discharge Details Anticipated Discharge Date: 10/10/18 Physicians Team Primary Care Provider: UNKNOWN, Attending Provider: Mary Jane Rodriguez Rxs /Orders / Referrals /Forms Prescriptions: New doxycycline hyclate 100 mg Capsule 100 mg PO Q12HR Qty: 10 RF: 0 atorvastatin 40 mg Tablet 40 mg PO HS Qty: 30 RF: 3 Continue amiodarone 200 mg Tablet 200 mg PO BID RF: 0 clonidine HCl 0.1 mg Tablet 0.1 mg PO BID RF: 0 aspirin 325 mg Tablet 325 mg PO DAILY RF: 0 allopurinol 100 mg Tablet 100 mg PO DAILY RF: 0 tamsulosin 0.4 mg Capsule 0.4 mg PO DAILY RF: 0 sertraline 25 mg Tablet 25 mg PO BID RF: 0 furosemide 20 mg Tablet 20 mg PO DAILY RF: 0 beclomethasone dipropionate [Qvar RediHaler] 80 mcg/actuation Hfa Aerosol Breath Activated 1 puff INHALATION Q12H RF: 0 insulin regular human [Novolin R Regular U-100 Insuln] 100 unit/mL Solution 1 sliding scale dose SUBCUT UD RF: 0 famotidine 20 mg Tablet 20 mg PO BID Qty: 30 RF: 0 prednisone 10 mg Tablet 20 mg PO DAILY Qty: 6 RF: 0 tiotropium bromide [Spiriva with HandiHaler] 18 mcg Capsule, W/Inhalation Device 18 mcg INH DAILY Qty: 1 RF: 0 insulin glargine [Lantus U-100 Insulin] 100 unit/mL Solution 20 unit SUBCUT BID Qty: 0 RF: 0 hydroxyzine HCl 25 mg Tablet 25 mg PO BID RF: 0 gabapentin 100 mg capsule 600 mg PO TID RF: 0 ipratropium-albuterol 0.5 mg-3 mg(2.5 mg base)/3 mL Solution For Nebulization 1 amp NEB Q4HR NEB Qty: 30 RF: 3 Referrals: UNKNOWN, [Primary Care Provider] - See Instructions (Follow-up MD in 1 week) Rodo Koehler MD [Physician] - See Instructions (f/u in 1-2 weeks) Post Discharge Care Plan Care Plan Goals: Your Health Problems: Goals to Promote Your Health: * To prevent worsening of your condition * To maintain your health at the optimal level Directions to Meet Your Goals: * Take your medications as prescribed * Follow your dietary instruction * Follow activity as directed * Keep your appointments as scheduled * Take your immunizations and boosters as scheduled * If your symptoms worsen call your PCP * If no PCP go to Urgent Care or Emergency Room Smoking is dangerous to your health. Avoid second hand smoke. You may reach the 24-hour crisis hotline for domestic abuse at . Status ED Status: Left Department
[2018-10-10] MEDS: Morphine Inj 4 MG/ML Vial IV.PUSH PRN (18:34)
[2018-10-10 18:53] VITALS: BP 154/67; PULSE 74; RESP 20; TEMP 98; O2SAT 96
== END 2018-10-10 19:10 | disposition home health service (06) | DRG 190 ==
LOC: NEPC 18:48 → NEDA 22:50 → HIMC 10-07 00:05 → N04 10-09 19:24
PROVIDERS: ADMIT Hospitalist; ATTEND Hospitalist
CPT/HCPCS: 36600; 71010; 71045; 80048; 80053; 82550; 82805; 82948; 82962; 83520; 83735; 83880; 84100; 84484; 85025; 85610; 85730; 87275; 87276; 87641; 87804; 90774; 90784; 93005; 94002; 94003; 94640; 94656; 94657; 94664; 94665; 96374; 97162; 97530; 99285; C8952; J0456; J0696; J1644; J1815; J2270; J2920; J2930; J7050